=== PATIENT | male | born 1935 | race Caucasian/White ===

== ENCOUNTER 2017-06-26 09:45 | Observation (INO) | payer MEDICARE, OTHER ==
[~2017-06-26] VITALS: Ht 182.9 cm; Wt 88.9 kg
[~2017-06-26 09:45] MED LIST: ASPI-630 PO; CHOL2000 PO; MULT1TAB52 PO; OMEP20CA9 PO; SIMV20TA3 PO; [UNRECOGNIZED DRUG - OTHER]
[2017-06-26 10:21] LABS: BASO # 0.1 x10^3/uL (0.0-0.2); BASO % 1 % (0-3); CALCIUM 9.5 mg/dL (8.5-10.1); CREATININE 1.3 mg/dL (0.7-1.3); EOS % 4 % (0-3); HEMOGLOBIN 14.9 g/dL (13.0-17.5); LYMPH # 1.9 x10^3/uL (1.0-4.8); LYMPH % 23 % (24-48); MEAN CORPUSCULAR HEMOGLOBIN 31 pg (25-35); MEAN CORPUSCULAR HGB CONC 33 g/dL (31-37); MEAN CORPUSCULAR VOLUME 93 fL (79-100); MONO % 11 % (0-9); NEUT % 62 % (31-73); PLATELET COUNT 221 x10^3/uL (140-400); POTASSIUM 4.5 mmol/L (3.5-5.1); RED BLOOD COUNT 4.83 x10^6/uL (4.30-5.70); RED CELL DISTRIBUTION WIDTH 14.1 % (11.5-14.5); WHITE BLOOD COUNT 8.5 x10^3/uL (4.0-11.0)
[2017-06-26 10:30] LABS: ALBUMIN 3.9 g/dL (3.4-5.0); DIRECT BILIRUBIN 0.1 mg/dL (0.0-0.2); TOTAL BILIRUBIN 0.7 mg/dL (0.2-1.0)
--- NOTE | 2017-06-26 10:32 | PHYS DOC ---
Past Medical History Past Medical History: GERD, High Cholesterol, Hypertension Past Surgical History: Tonsillectomy, Other Additional Past Surgical Histo: HERNIA REPAIR,THROAT SX Alcohol Use: None Drug Use: None Adult General Chief Complaint Chief Complaint: NEURO SYMPTOMS/DEFICITS HPI HPI 81-year-old male presenting to the emergency department today with right-sided weakness this started around 5:00 yesterday. He reports feeling weak in his right hand and his right foot. This was sudden in onset. He denies any pain or headache. He denies visual disturbances slurred speech or facial asymmetry. 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 Review of systems is negative for fevers chills nausea vomiting diarrhea constipation. He denies neck stiffness vision changes. All other review of systems is negative unless otherwise noted in history of present illness. ED course: 81-year-old male presenting to the emergency department today with right-sided weakness this started about 24 hours ago. Patient does not qualify for TPA as he falls outside of the window. Patient falls outside of the window of mechanical thrombectomy. Triage vital signs afebrile with a normal heart rate. Mild hypertension present. CT head obtained along with EKG and blood work. EKG reviewed by myself shows sinus rhythm with a regular rate. [place] leftward. ST segments are congruent. Not suggestive of ACS. Given the patient's unilateral neurologic symptoms MRI of the brain ordered. Unfortunately because the patient is allergic to iodine we are unable to do a CT angiography so we will get an angiography of the head neck when the MRI is done. I discussed the case with Dr. small our neurologist. The patient was then admitted to our hospital for further evaluation workup and care. Review of Systems Review of Systems SEE ABOVE. Allergies Allergies Allergies Coded Allergies Type Severity Reaction Last Updated Verified iodine Allergy Intermediate Rash 08/12/15 Yes iron Allergy Intermediate Rash 09/05/15 Yes iron dextran complex Allergy Intermediate Rash 09/05/15 Yes Physical Exam Physical Exam SEE ABOVE Constitutional: Well developed, well nourished, no acute distress, non-toxic appearance. [] HENT: Normocephalic, atraumatic, bilateral external ears normal, oropharynx moist, no oral exudates, nose normal. [] Eyes: PERRLA, EOMI, conjunctiva normal, no discharge. [] Neck: Normal range of motion, no tenderness, supple, no stridor. [] Cardiovascular:Heart rate regular rhythm, no murmur [] Lungs & Thorax: Bilateral breath sounds clear to auscultation [] Abdomen: Bowel sounds normal, soft, no tenderness, no masses, no pulsatile masses. [] Skin: Warm, dry, no erythema, no rash. [] Back: No tenderness, no CVA tenderness. [] Extremities: No tenderness, no cyanosis, no clubbing, ROM intact, no edema. [] Neurologic: Mental status: Awake oriented and alert x3 Cranial nerves: Extraocular movements intact, eyebrows ivan bilaterally smile symmetric, uvula elevation, shoulder shrug intact, tongue protrusion normal DTRs: 2+ Sensation: equal and normal in all extremities Strength: 5/5 in upper and lower extremities bilaterally Psychologic: Affect normal, judgement normal, mood normal. [] Current Patient Data Vital Signs Vital Signs Date Time Temp Pulse Resp B/P (MAP) Pulse Ox O2 Delivery O2 Flow Rate FiO2 06/26/17 11:22 63 16 149/79 (102) 94 Room Air 06/26/17 09:54 97.8 97.8 Lab Values Laboratory Tests Test 06/26/17 09:55 White Blood Count 8.5 x10^3/uL (4.0-11.0) Red Blood Count 4.83 x10^6/uL (4.30-5.70) Hemoglobin 14.9 g/dL (13.0-17.5) Hematocrit 45.0 % (39.0-53.0) Mean Corpuscular Volume 93 fL (79-100) Mean Corpuscular Hemoglobin 31 pg (25-35) Mean Corpuscular Hemoglobin Concent 33 g/dL (31-37) Red Cell Distribution Width 14.1 % (11.5-14.5) Platelet Count 221 x10^3/uL (140-400) Neutrophils (%) (Auto) 62 % (31-73) Lymphocytes (%) (Auto) 23 % (24-48) L Monocytes (%) (Auto) 11 % (0-9) H Eosinophils (%) (Auto) 4 % (0-3) H Basophils (%) (Auto) 1 % (0-3) Neutrophils # (Auto) 5.2 x10^3uL (1.8-7.7) Lymphocytes # (Auto) 1.9 x10^3/uL (1.0-4.8) Monocytes # (Auto) 0.9 x10^3/uL (0.0-1.1) Eosinophils # (Auto) 0.4 x10^3/uL (0.0-0.7) Basophils # (Auto) 0.1 x10^3/uL (0.0-0.2) Sodium Level 143 mmol/L (136-145) Potassium Level 4.5 mmol/L (3.5-5.1) Chloride Level 107 mmol/L (98-107) Carbon Dioxide Level 25 mmol/L (21-32) Anion Gap 11 (6-14) Blood Urea Nitrogen 19 mg/dL (8-26) Creatinine 1.3 mg/dL (0.7-1.3) Estimated GFR (Cockcroft-Gault) 53.0 Glucose Level 124 mg/dL (70-99) H Calcium Level 9.5 mg/dL (8.5-10.1) Total Bilirubin 0.7 mg/dL (0.2-1.0) Direct Bilirubin 0.1 mg/dL (0.0-0.2) Aspartate Amino Transferase (AST) 27 U/L (15-37) Alanine Aminotransferase (ALT) 29 U/L (16-63) Alkaline Phosphatase 58 U/L (46-116) Troponin I Quantitative < 0.017 ng/mL (0.000-0.055) Total Protein 7.0 g/dL (6.4-8.2) Albumin 3.9 g/dL (3.4-5.0) Triglycerides Level 114 mg/dL (0-150) Cholesterol Level 151 mg/dL (0-200) LDL Cholesterol, Calculated 92 mg/dL (0-100) VLDL Cholesterol, Calculated 23 mg/dL (0-40) Non-HDL Cholesterol Calculated 115 mg/dL (0-129) HDL Cholesterol 36 mg/dL (40-60) L Cholesterol/HDL Ratio 4.2 Lipase 690 U/L (73-393) H Laboratory Tests 06/26/17 09:55 Laboratory Tests 06/26/17 09:55 EKG EKG [] Radiology/Procedures Radiology/Procedures [] Course & Med Decision Making Course & Med Decision Making Pertinent Labs and Imaging studies reviewed. (See chart for details) [] Dragon Disclaimer Dragon Disclaimer This electronic medical record was generated, in whole or in part, using a voice recognition dictation system. Departure Departure Impression: Primary Impression: Focal neurological deficit Additional Impressions: TIA (transient ischemic attack) Stroke-like symptoms Disposition: ADMITTED INPATIENT Admitting Physician: Other (reusch) Condition: STABLE Referrals: LARY GIL Jr, MD (PCP) Problem Qualifiers LEXI HUMPHREY MD Jun 26, 2017 10:32
--- NOTE | 2017-06-26 11:05 | RAD ---
CT head without contrast History: Unilateral weakness. Comparison: None. Procedure: Axial images are obtained of the head from the skull base through the vertex without IV contrast. Findings: Mild bilateral periventricular white matter hypodensities likely chronic small vessel ischemic disease. The ventricles and sulci are normal for the patient's age. No mass-effect, intracranial mass, midline shift, hemorrhage or obvious acute infarction is identified. Basilar cisterns are patent. Bone windows demonstrate no significant calvarial abnormality. The visualized paranasal sinuses appear clear. Impression: 1. No acute intracranial process. PQRS Compliance Statement: One or more of the following individualized dose reduction techniques were utilized for this examination: 1. Automated exposure control 2. Adjustment of the mA and/or kV according to patient size 3. Use of iterative reconstruction technique
[2017-06-26] MEDS: IV NORMAL SALINE 1000ML BAG 1,000 ML IV SCH (11:44)
[2017-06-26] MEDS ORDERED: MORPHINE SULFATE 2 MG/ML DISP.SYRIN. IV PRN (11:45)
[2017-06-26] MEDS ORDERED: ASPIRIN CHEWABLE 81 MG TABLET. PO ONE (11:45)
[2017-06-26] MEDS ORDERED: ONDANSETRON PF 4 MG/2 ML VIAL. IV PRN ×2 (11:45→12:15)
[2017-06-26] MEDS ORDERED: ACETAMINOPHEN 500 MG TABLET PO PRN (12:15)
[2017-06-26] MEDS ORDERED: cloNIDine HCL 0.1 MG TABLET PO PRN (12:30)
[2017-06-26] MEDS ORDERED: CHOLECALCIFEROL (VITAMIN D3) 1,000 UNIT TABLET PO SCH ×2 (13:00→21:00)
[2017-06-26] MEDS ORDERED: PANTOPRAZOLE 40 MG TABLET.DR. PO SCH ×2 (13:00→21:00)
[2017-06-26] MEDS: MULTIVITAMIN with MINERAL TABLET. PO SCH (13:00)
[2017-06-26] MEDS ORDERED: ASPIRIN CHEWABLE 81 MG TABLET. PO SCH (13:00)
[2017-06-26 13:02] VITALS: BP 156/77
[2017-06-26 13:03] VITALS: BP 156/77
--- NOTE | 2017-06-26 13:07 | RAD ---
Examination: MRI brain without contrast History: History of right-sided weakness for one day Comparison: None available Technique: Multiplanar, multisequence MR imaging of the brain was performed without contrast Findings: There is an 8 mm focus of restricted diffusion identified in the left posterior lim radiata region of the parietal lobe likely acute ischemic infarct. There is no evidence of midline shift. There is no acute intracranial bleed. The midline structures grossly appears unremarkable. Moderate bilateral increased T2 and FLAIR signal identified in the periventricular white matter likely chronic small vessel ischemic disease with tiny foci of old infarcts in the deep white matter in the bilateral frontal lobes and parietal lobes. There are scattered foci of susceptibility artifact on the gradient sequences identified in the bilateral cerebral hemispheres in the bilateral frontal and right occipital and temporal lobe region, question amyloid angiopathy. The ventricle size grossly appears unremarkable. The flow voids appears unremarkable. The visualized paranasal sinuses, mastoid air cells are clear. Impression: 1. Small 8 mm focus of restricted diffusion identified in the left lim radiata region of the parietal lobe likely acute ischemic infarct. 2. There are scattered foci of susceptibility artifact on the gradient sequences identified in the bilateral cerebral hemispheres in the bilateral frontal and right occipital and temporal lobe region, question amyloid angiopathy. Report called to patient's nurse at time of dictation.
--- NOTE | 2017-06-26 13:14 | RAD ---
Examination: MR angiogram head and neck History: History of right-sided weakness for one day graft comparison: None available Technique: Multiplanar, multisequence MR angiography of the head and neck was performed Findings: The origin of the great vessels from the aorta is limited due to significant motion artifact. The bilateral internal carotid arteries demonstrate no significant stenosis. The evaluation of the right and left vertebral arteries in the neck is very limited as there is significant motion which limits evaluation. In the partially visualized right vertebral artery with at least 50% stenosis identified in the proximal right vertebral artery in the neck best seen on series 4 image 52. The intracranial portions of the bilateral vertebral arteries, basilar artery, middle cerebral arteries, anterior cerebral arteries and posterior cerebral arteries are patent. Impression: 1. No evidence of significant stenosis identified in the intracranial cerebral or intracerebral vertebral arteries. 2. Evaluation of the neck vessels is limited due to significant motion. Probable focal 50% stenosis in the proximal right vertebral artery in the neck best visualized on series 4 image 52. Follow-up carotid ultrasound can be considered.
--- NOTE | 2017-06-26 13:18 | EKG ---
[facility] [address] [place] [address] Test Date: 2017-06-26 Test Time: 09:51:28 Pat Name: RUDY NIELSEN Department: Room: [facility] Gender: M Barrel Lapper: : 1935 Requested By: LEXI HUMPHREY Order Number: [id number] Reading MD: Farheen Carrion Measurements Intervals [place] Rate: 91 P: -3 CA: 138 QRS: -24 QRSD: 94 T: 15 QT: 356 QTc: 440 Interpretive Statements SINUS RHYTHM LEFTWARD AXIS OTHERWISE NORMAL ECG Electronically Signed On 06-30-2017 21:42:29 CDT by Farheen Carrion
--- NOTE | 2017-06-26 13:27 | PDOC1 ---
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 PErsisted hence went to ER, CT head neg, Admitted for MRI, Mri done, wet read acute 8 mm stroke left parietal, Slow to speech, a bit, baseline? no swallow issues, Multiple fam members at bedside, Got ASA 325 at ER Past Medical History Cardiovascular: No pertinent hx Pulmonary: No pertinent hx GI: GERD Heme/Onc: No pertinent hx Hepatobiliary: No pertinent hx Psych: No pertinent hx Infectious disease: No pertinent hx ENT: No pertinent hx Renal/: No pertinent hx Endocrine: No pertinent hx Dermatology: No pertinent hx Past Surgical History Past Surgical History: No pertinent history Family History Family History: Hypertension Social History Smoke: No ALCOHOL: none Drugs: None Current Problem List Problem List Problems Medical Problems: (1) Focal neurological deficit Status: Acute (2) Stroke-like symptoms Status: Acute (3) TIA (transient ischemic attack) Status: Acute Problems: Current Medications Current Medications Current Medications Aspirin (Children'S Aspirin) 243 mg 1X ONCE PO Last administered on 06/26/17t 12:50; Start 06/26/17 at 11:45; Stop 06/26/17 at 11:46; Status DC Ondansetron HCl (Zofran) 4 mg PRN Q8HRS PRN IV NAUSEA/VOMITING; Start 06/26/17 at 11:45; Stop 06/26/17 at 12:17; Status DC Morphine Sulfate 2 mg PRN Q2HR PRN IV PAIN; Start 06/26/17 at 11:45; Stop at 11:44 Sodium Chloride 1,000 ml @ 100 mls/hr Q10H IV ; Start 06/26/17 at 11:44; Stop at 11:43 Ondansetron HCl (Zofran) 4 mg PRN Q6HRS PRN IV NAUSEA/VOMITING; Start 06/26/17 at 12:15 Acetaminophen (Tylenol) 500 mg PRN QID PRN PO pain; Start 06/26/17 at 12:15 Clonidine HCl (Catapres) 0.1 mg PRN Q1HR PRN PO HYPERTENSION, SEE COMMENTS; Start 06/26/17 at 12:30 Aspirin (Children'S Aspirin) 81 mg DAILY PO ; Start 06/26/17 at 13:00; Status Cancel Simvastatin (Zocor) 20 mg QHS PO ; Start 06/26/17 at 21:00 Vitamin D (Vitamin D3) 2,000 unit DAILY PO ; Start 06/26/17 at 13:00 Multivitamins (Thera M Plus) 1 tab DAILY PO ; Start 06/26/17 at 13:00 Pantoprazole Sodium (Protonix) 40 mg DAILYAC PO ; Start 06/26/17 at 13:00 Aspirin (Ecotrin) 325 mg DAILYWBKFT PO ; Start 06/27/17 at 08:00 Active Scripts Active Reported Multivitamins (Multivitamin) 1 Each Tablet 1 Tab PO DAILY Vitamin D (Cholecalciferol (Vitamin D3)) 2,000 Unit Capsule 1 Cap PO DAILY [Vitamon B12] DAILY Aspirin 81 Mg Tab.chew 1 Tab PO DAILY Omeprazole 20 Mg Capsule.dr 1 Cap PO DAILY Simvastatin 20 Mg Tablet 1 Tab PO QHS Allergies Allergies: Coded Allergies: iodine (Verified Allergy, Intermediate, Rash, 08/12/15) iron (Verified Allergy, Intermediate, Rash, 09/05/15) INJECTABLE iron dextran complex (Verified Allergy, Intermediate, Rash, 09/05/15) ROS Review of System as per HPI< all else is neg Physical Exam General: Alert, Oriented X3, Cooperative, No acute distress HEENT: Atraumatic, PERRLA, EOMI Lungs: Clear to auscultation Heart: S1S2, no thrills, no gallops, no murmurs Cardiovascular: S2 Abdomen: Normal bowel sounds, Soft, No tenderness, No hepatosplenomegaly, No masses Male Genitals Exam: normal genitalia, normal prostate PELVIC: Nml ext genitalia Extremities: No clubbing, No cyanosis, No edema, Normal pulses, No tenderness/ swelling Skin: No rashes, No breakdown, No significant lesion Neuro: Other (4/5 on RLE, rest is 5.5, sensory intact, DTR 2 plus, on slurred , no facial asymmetry) Psych/Mental Status: Mental status NL, Mood NL Vitals Vitals Vital Signs Date Time Temp Pulse Resp B/P (MAP) Pulse Ox O2 Delivery O2 Flow Rate FiO2 06/26/17 13:03 97.4 65 19 156/77 (103) 95 Room Air 97.4 Labs Labs Laboratory Tests Test 06/26/17 09:55 White Blood Count 8.5 x10^3/uL (4.0-11.0) Red Blood Count 4.83 x10^6/uL (4.30-5.70) Hemoglobin 14.9 g/dL (13.0-17.5) Hematocrit 45.0 % (39.0-53.0) Mean Corpuscular Volume 93 fL (79-100) Mean Corpuscular Hemoglobin 31 pg (25-35) Mean Corpuscular Hemoglobin Concent 33 g/dL (31-37) Red Cell Distribution Width 14.1 % (11.5-14.5) Platelet Count 221 x10^3/uL (140-400) Neutrophils (%) (Auto) 62 % (31-73) Lymphocytes (%) (Auto) 23 % (24-48) Monocytes (%) (Auto) 11 % (0-9) Eosinophils (%) (Auto) 4 % (0-3) Basophils (%) (Auto) 1 % (0-3) Neutrophils # (Auto) 5.2 x10^3uL (1.8-7.7) Lymphocytes # (Auto) 1.9 x10^3/uL (1.0-4.8) Monocytes # (Auto) 0.9 x10^3/uL (0.0-1.1) Eosinophils # (Auto) 0.4 x10^3/uL (0.0-0.7) Basophils # (Auto) 0.1 x10^3/uL (0.0-0.2) Sodium Level 143 mmol/L (136-145) Potassium Level 4.5 mmol/L (3.5-5.1) Chloride Level 107 mmol/L (98-107) Carbon Dioxide Level 25 mmol/L (21-32) Anion Gap 11 (6-14) Blood Urea Nitrogen 19 mg/dL (8-26) Creatinine 1.3 mg/dL (0.7-1.3) Estimated GFR (Cockcroft-Gault) 53.0 Glucose Level 124 mg/dL (70-99) Calcium Level 9.5 mg/dL (8.5-10.1) Total Bilirubin 0.7 mg/dL (0.2-1.0) Direct Bilirubin 0.1 mg/dL (0.0-0.2) Aspartate Amino Transf (AST/SGOT) 27 U/L (15-37) Alanine Aminotransferase (ALT/SGPT) 29 U/L (16-63) Alkaline Phosphatase 58 U/L (46-116) Troponin I Quantitative < 0.017 ng/mL (0.000-0.055) Total Protein 7.0 g/dL (6.4-8.2) Albumin 3.9 g/dL (3.4-5.0) Lipase 690 U/L (73-393) Laboratory Tests Test 06/26/17 09:55 White Blood Count 8.5 x10^3/uL (4.0-11.0) Red Blood Count 4.83 x10^6/uL (4.30-5.70) Hemoglobin 14.9 g/dL (13.0-17.5) Hematocrit 45.0 % (39.0-53.0) Mean Corpuscular Volume 93 fL (79-100) Mean Corpuscular Hemoglobin 31 pg (25-35) Mean Corpuscular Hemoglobin Concent 33 g/dL (31-37) Red Cell Distribution Width 14.1 % (11.5-14.5) Platelet Count 221 x10^3/uL (140-400) Neutrophils (%) (Auto) 62 % (31-73) Lymphocytes (%) (Auto) 23 % (24-48) Monocytes (%) (Auto) 11 % (0-9) Eosinophils (%) (Auto) 4 % (0-3) Basophils (%) (Auto) 1 % (0-3) Neutrophils # (Auto) 5.2 x10^3uL (1.8-7.7) Lymphocytes # (Auto) 1.9 x10^3/uL (1.0-4.8) Monocytes # (Auto) 0.9 x10^3/uL (0.0-1.1) Eosinophils # (Auto) 0.4 x10^3/uL (0.0-0.7) Basophils # (Auto) 0.1 x10^3/uL (0.0-0.2) Sodium Level 143 mmol/L (136-145) Potassium Level 4.5 mmol/L (3.5-5.1) Chloride Level 107 mmol/L (98-107) Carbon Dioxide Level 25 mmol/L (21-32) Anion Gap 11 (6-14) Blood Urea Nitrogen 19 mg/dL (8-26) Creatinine 1.3 mg/dL (0.7-1.3) Estimated GFR (Cockcroft-Gault) 53.0 Glucose Level 124 mg/dL (70-99) Calcium Level 9.5 mg/dL (8.5-10.1) Total Bilirubin 0.7 mg/dL (0.2-1.0) Direct Bilirubin 0.1 mg/dL (0.0-0.2) Aspartate Amino Transf (AST/SGOT) 27 U/L (15-37) Alanine Aminotransferase (ALT/SGPT) 29 U/L (16-63) Alkaline Phosphatase 58 U/L (46-116) Troponin I Quantitative < 0.017 ng/mL (0.000-0.055) Total Protein 7.0 g/dL (6.4-8.2) Albumin 3.9 g/dL (3.4-5.0) Lipase 690 U/L (73-393) VTE Prophylaxis Ordered VTE Prophylaxis Devices: Yes VTE Pharmacological Prophylaxi: Yes Assessment/Plan Assessment/Plan 1. 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 GERD PLAN: ASA 325 daily vs plavix 75 - will defer to neuro LIpid profile, echo and carotids per stroke protocol PT/OT all qs asked, multiple fam members in room Work excuse given to grand dtr for visiting today CONNER FINE MD Jun 26, 2017 13:27
[2017-06-26 13:59] LABS: CHOLESTEROL/HDL RATIO 4.2
[2017-06-26 14:51] VITALS: BP 122/77
--- NOTE | 2017-06-26 16:16 | PDOC2 ---
NEUROLOGY CONSULT Date of Admission Date of Admission DATE: 06/26/17 TIME: 15:53 Reason for Consult Reason for Consult: IMPRESSION: Acute 8 mm left lim radiata infract. Not TPA candidate onset of symptoms x 1 day before coming to [facility]. Right side weakness and numbness x 1 day before coming here. 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 Hx of throat surgery with hoarse voice. HTN HLD Amyloid angiopathy? GERD. Elevated lipase. Dementia features. RECOMMENDATIONS/PLAN: Increase ASA from 81 mg to 325 mg daily. Zocor 20 mg HS per floor team. Carotid A US + Doppler. Echo OT/POT. Discussed with his , sister, son and other family members at bedside. HISTORY OF THE PRESENT ILLNESS: 81-y-old male patient with above medical diseases developed symptoms of right side UE and LE numbness and weakness with the right UE more obvious since 06/25/17. He did not search medicla attension until the next day due to persistent symptoms especially in his right UE. He stated his face was not affected. No obvious slurred speech since his speech has been hoarse after throat surgery. Past Medical History Cardiovascular: No pertinent hx Pulmonary: No pertinent hx GI: GERD Heme/Onc: No pertinent hx Hepatobiliary: No pertinent hx Psych: No pertinent hx Infectious disease: No pertinent hx ENT: No pertinent hx Renal/: No pertinent hx Endocrine: No pertinent hx Dermatology: No pertinent hx Past Surgical History Throat surgery, detail unknown. Not cancer. Hernia repair. Family History Hypertension Social History Smoke: No ALCOHOL: none Drugs: None ALLERGY: Reviewed. MEDICATIONS: Refer to [facility] REVIEW OF SYSTEMS: Constitutional: No malnutrition, cachexia. Head: No recent traumatic brain or head injury. Skin: No edema, or rash. Ear: No infection. Eyes: No vision loss or color blindness. Nose: No bleeding or purulent discharges. Hearing: Hearing decrease. Neck: No injury. Cardiac: HLD, HTN. Pulmonary: No COPD. GI: GERD. Urinary/genital: UTI. Endocrinologic: Diabetes Mellitus? Skeletomuscular: No muscular atrophy, deformity. Neurological: see HP. Psychiatric: Denies drug use/abuse. Otherwise, not [id number] review of systems. PHYSICAL EXAMINATION: General appearance is in subacute distress. HEENT: Normocephalic and nontraumatic. Eyes, nose, ears, and throat are unremarkable. Neck is supple. No lymphadenopathy. No crepitus. Cardiovascular: S1, S2, regular rate and rhythm. Pulmonary: Clear to auscultation bilaterally. Abdomen: Bowel sounds are positive. Extremities: No rash, lesions, or edema. No restriction of range of motion NEUROLOGICAL EXAMINATION: Awake. Oriented to time, place and person. PERRL. EOMI. CN: no focal findings. Muscle tone: within normal. Muscle strength: 4 right UE,. 5- the rest. DTR: 2 Plantar reflex: Neutral response bilaterally Gait: not examined in bed. Sensory exam: no abnormal findings. No cerebellar signs elicited. F-T-N test fine. Current Medications Current Medications Current Medications Aspirin (Children'S Aspirin) 243 mg 1X ONCE PO Last administered on 06/26/17t 12:50; Start 06/26/17 at 11:45; Stop 06/26/17 at 11:46; Status DC Ondansetron HCl (Zofran) 4 mg PRN Q8HRS PRN IV NAUSEA/VOMITING; Start 06/26/17 at 11:45; Stop 06/26/17 at 12:17; Status DC Morphine Sulfate 2 mg PRN Q2HR PRN IV PAIN; Start 06/26/17 at 11:45; Stop at 11:44 Sodium Chloride 1,000 ml @ 100 mls/hr Q10H IV ; Start 06/26/17 at 11:44; Stop at 11:43 Ondansetron HCl (Zofran) 4 mg PRN Q6HRS PRN IV NAUSEA/VOMITING; Start 06/26/17 at 12:15 Acetaminophen (Tylenol) 500 mg PRN QID PRN PO pain; Start 06/26/17 at 12:15 Clonidine HCl (Catapres) 0.1 mg PRN Q1HR PRN PO HYPERTENSION, SEE COMMENTS; Start 06/26/17 at 12:30 Aspirin (Children'S Aspirin) 81 mg DAILY PO ; Start 06/26/17 at 13:00; Status Cancel Simvastatin (Zocor) 20 mg QHS PO ; Start 06/26/17 at 21:00 Vitamin D (Vitamin D3) 2,000 unit DAILY PO ; Start 06/26/17 at 13:00 Multivitamins (Thera M Plus) 1 tab DAILY PO ; Start 06/26/17 at 13:00 Pantoprazole Sodium (Protonix) 40 mg DAILYAC PO ; Start 06/26/17 at 13:00 Aspirin (Ecotrin) 325 mg DAILYWBKFT PO ; Start 06/27/17 at 08:00 Active Scripts Active Reported Multivitamins (Multivitamin) 1 Each Tablet 1 Tab PO DAILY Vitamin D (Cholecalciferol (Vitamin D3)) 2,000 Unit Capsule 1 Cap PO DAILY [Vitamon B12] DAILY Aspirin 81 Mg Tab.chew 1 Tab PO DAILY Omeprazole 20 Mg Capsule.dr 1 Cap PO DAILY Simvastatin 20 Mg Tablet 1 Tab PO QHS Allergies Allergies: Coded Allergies: iodine (Verified Allergy, Intermediate, Rash, 08/12/15) iron (Verified Allergy, Intermediate, Rash, 09/05/15) INJECTABLE iron dextran complex (Verified Allergy, Intermediate, Rash, 09/05/15) Vitals VITALS Vital Signs Date Time Temp Pulse Resp B/P (MAP) Pulse Ox O2 Delivery O2 Flow Rate FiO2 06/26/17 14:51 97.8 89 18 122/77 (92) 97 Room Air 97.8 Labs Labs Laboratory Tests Test 06/26/17 09:55 White Blood Count 8.5 x10^3/uL (4.0-11.0) Red Blood Count 4.83 x10^6/uL (4.30-5.70) Hemoglobin 14.9 g/dL (13.0-17.5) Hematocrit 45.0 % (39.0-53.0) Mean Corpuscular Volume 93 fL (79-100) Mean Corpuscular Hemoglobin 31 pg (25-35) Mean Corpuscular Hemoglobin Concent 33 g/dL (31-37) Red Cell Distribution Width 14.1 % (11.5-14.5) Platelet Count 221 x10^3/uL (140-400) Neutrophils (%) (Auto) 62 % (31-73) Lymphocytes (%) (Auto) 23 % (24-48) Monocytes (%) (Auto) 11 % (0-9) Eosinophils (%) (Auto) 4 % (0-3) Basophils (%) (Auto) 1 % (0-3) Neutrophils # (Auto) 5.2 x10^3uL (1.8-7.7) Lymphocytes # (Auto) 1.9 x10^3/uL (1.0-4.8) Monocytes # (Auto) 0.9 x10^3/uL (0.0-1.1) Eosinophils # (Auto) 0.4 x10^3/uL (0.0-0.7) Basophils # (Auto) 0.1 x10^3/uL (0.0-0.2) Sodium Level 143 mmol/L (136-145) Potassium Level 4.5 mmol/L (3.5-5.1) Chloride Level 107 mmol/L (98-107) Carbon Dioxide Level 25 mmol/L (21-32) Anion Gap 11 (6-14) Blood Urea Nitrogen 19 mg/dL (8-26) Creatinine 1.3 mg/dL (0.7-1.3) Estimated GFR (Cockcroft-Gault) 53.0 Glucose Level 124 mg/dL (70-99) Calcium Level 9.5 mg/dL (8.5-10.1) Total Bilirubin 0.7 mg/dL (0.2-1.0) Direct Bilirubin 0.1 mg/dL (0.0-0.2) Aspartate Amino Transf (AST/SGOT) 27 U/L (15-37) Alanine Aminotransferase (ALT/SGPT) 29 U/L (16-63) Alkaline Phosphatase 58 U/L (46-116) Troponin I Quantitative < 0.017 ng/mL (0.000-0.055) Total Protein 7.0 g/dL (6.4-8.2) Albumin 3.9 g/dL (3.4-5.0) Triglycerides Level 114 mg/dL (0-150) Cholesterol Level 151 mg/dL (0-200) LDL Cholesterol, Calculated 92 mg/dL (0-100) VLDL Cholesterol, Calculated 23 mg/dL (0-40) Non-HDL Cholesterol Calculated 115 mg/dL (0-129) HDL Cholesterol 36 mg/dL (40-60) Cholesterol/HDL Ratio 4.2 Lipase 690 U/L (73-393) Laboratory Tests Test 06/26/17 09:55 White Blood Count 8.5 x10^3/uL (4.0-11.0) Red Blood Count 4.83 x10^6/uL (4.30-5.70) Hemoglobin 14.9 g/dL (13.0-17.5) Hematocrit 45.0 % (39.0-53.0) Mean Corpuscular Volume 93 fL (79-100) Mean Corpuscular Hemoglobin 31 pg (25-35) Mean Corpuscular Hemoglobin Concent 33 g/dL (31-37) Red Cell Distribution Width 14.1 % (11.5-14.5) Platelet Count 221 x10^3/uL (140-400) Neutrophils (%) (Auto) 62 % (31-73) Lymphocytes (%) (Auto) 23 % (24-48) Monocytes (%) (Auto) 11 % (0-9) Eosinophils (%) (Auto) 4 % (0-3) Basophils (%) (Auto) 1 % (0-3) Neutrophils # (Auto) 5.2 x10^3uL (1.8-7.7) Lymphocytes # (Auto) 1.9 x10^3/uL (1.0-4.8) Monocytes # (Auto) 0.9 x10^3/uL (0.0-1.1) Eosinophils # (Auto) 0.4 x10^3/uL (0.0-0.7) Basophils # (Auto) 0.1 x10^3/uL (0.0-0.2) Sodium Level 143 mmol/L (136-145) Potassium Level 4.5 mmol/L (3.5-5.1) Chloride Level 107 mmol/L (98-107) Carbon Dioxide Level 25 mmol/L (21-32) Anion Gap 11 (6-14) Blood Urea Nitrogen 19 mg/dL (8-26) Creatinine 1.3 mg/dL (0.7-1.3) Estimated GFR (Cockcroft-Gault) 53.0 Glucose Level 124 mg/dL (70-99) Calcium Level 9.5 mg/dL (8.5-10.1) Total Bilirubin 0.7 mg/dL (0.2-1.0) Direct Bilirubin 0.1 mg/dL (0.0-0.2) Aspartate Amino Transf (AST/SGOT) 27 U/L (15-37) Alanine Aminotransferase (ALT/SGPT) 29 U/L (16-63) Alkaline Phosphatase 58 U/L (46-116) Troponin I Quantitative < 0.017 ng/mL (0.000-0.055) Total Protein 7.0 g/dL (6.4-8.2) Albumin 3.9 g/dL (3.4-5.0) Triglycerides Level 114 mg/dL (0-150) Cholesterol Level 151 mg/dL (0-200) LDL Cholesterol, Calculated 92 mg/dL (0-100) VLDL Cholesterol, Calculated 23 mg/dL (0-40) Non-HDL Cholesterol Calculated 115 mg/dL (0-129) HDL Cholesterol 36 mg/dL (40-60) Cholesterol/HDL Ratio 4.2 Lipase 690 U/L (73-393) MELODY WILLIS MD Jun 26, 2017 16:16
[2017-06-26 19:00] VITALS: BP 165/75
[2017-06-26] MEDS ORDERED: SIMVASTATIN 20 MG TABLET PO SCH (21:00)
[2017-06-26 23:01] VITALS: BP 185/69
--- NOTE | 2017-06-26 23:30 | ACF ---
Admission Forms Criteria TRANSIENT ISCHEMIC ATTACK (TIA) Clinical Indications for Admission to Inpatient Care (Place 'X' for any and all applicable criteria): Admission is indicated for ANY ONE of the following(1)(2)(3)(4)(5): [ ]I. Immediate inpatient procedure is needed (eg, endarterectomy). [X]II. Inpatient admission required rather than observation care (Also use Transient Ischemic Attack (TIA): Observation Care Criteria as appropriate) because of ANY ONE of the following: [X]a) Focal neurologic signs or symptoms persist or recurring [ ]b) Cardiac arrhythmias of immediate concern [ ]c) Clinically significant cardiac disorder identified that requires inpatient care (eg, severe valvular disease, atrial myxoma, cardiomyopathy) [ ]d) Hypertension requiring inpatient treatment [ ]e) Parenteral anticoagulation required (eg, alternative forms of anticoagulation not appropriate or not feasible) as indicated by ALL of the following(13): [ ]i) Temporary subtherapeutic anticoagulation unacceptable because of high risk of short-term venous or arterial thromboembolism due to ANY ONE of the following(14)(15)(16): [ ]1) Atrial fibrillation suspected as etiology of TIA(17)(18)(19)(20)(21) [ ]2) Venous thromboembolism within past 12 months [ ]3) Underlying malignancy [ ]4) Patient with mechanical cardiac valve(22)( 23) [ ]5) Underlying hypercoagulable state (eg, protein C or protein S deficiency antithrombin deficiency, antiphospholipid antibodies) [ ]6) Patient at temporary high risk of thromboembolism (eg, status post orthopedic surgery) [ ]ii) Contraindications to outpatient use of "bridging" agent or alternative oral anticoagulant[B] as indicated by ALL of the following: [ ]1) Contraindication to outpatient use of low- molecular-weight heparin as "bridging" agent as indicated by ANY ONE of the following(15): [ ]A. Documented current or history of heparin-induced thrombocytopenia(24) [ ]B. Severe thrombocytopenia (eg, platelet count less than 50,000/mm3 (04x954/L) [ ]C. Documented allergy to heparin, low- molecular-weight heparin, or pork products [ ]D. Renal failure (creatinine clearance less than 30 mL/min/1.73m2 (0.50mL/sec/1.73m2) or on dialysis) [ ]E. Inability to manage self-injection ( eg, by patient, caregiver, or visiting nurse) [ ]2) Contraindication to outpatient use of fondaparinux as "bridging" agent as indicated by ANY ONE of the following(25)(26 )(27)(28): [ ]A. Severe thrombocytopenia (eg, platelet count less than 50,000/mm3 (50 x109/L)) [ ]B.Hypersensitivity to fondaparinux, related drugs, or product components [ ]C.Renal failure (creatinine clearance less than 30 mL/min/1.73m2 (0.50mL/sec/1.73m2) or on dialysis) [ ]D.Inability to manage self-injection ( eg, by patient, caregiver, or visiting nurse [ ]3. Oral direct thrombin inhibitor (eg, dabigatran) or oral coagulation factor Xa inhibitor (eg, rivaroxaban, apixaban) not appropriate as oral anticoagulation (eg, indication not appropriate) or contraindicated (eg, hypersensitivity, creatinine clearance less than 15 mL/min/1.73m2 ( 0.25 mL/sec/1.73m2) or on dialysis). [ ]f) Continuous IV infusion of anticoagulant, platelet inhibitor, vasoactive or antiarrhythmia(18)(19) [ ]g) Other condition, treatment, or monitoring requiring inpatient admission [ ]III. Contraindications and/or Inappropriate clinical situations for Observational Care in patients with Transient Ischemic Attack (TIA), when ANY ONE of the following is required: [ ]a) Patient with persistent or severe neurological deficit 24 [ ]b) Patient with acute CVA or other identified pathology should be admitted to inpatient for further care 25 [ ]IV. General contraindications and/or Inappropriate clinical situations for Observational Care in patients with Transient Ischemic Attack (TIA), when ANY ONE of the following is required: [ ]a) Prediction of prolongation of LOS based on ANY ONE of the following may be considered as a contraindication for observational care 2, 3, 4, 5, 6, 7, 8, 9, 10, 11 [ ]i) Age > 65 yrs. [ ]ii) Patient arriving by ambulance [ ]iii) Patient with high acuity [ ]iv) Patient requiring vital sign monitoring [ ]v) Patient on IV medication [ ]b) Systolic blood pressures 180mmHg 3,12 [ ]c) Patient with altered mental status including delirium and other alteration of consciousness, (3) [ ]d) Patient whose discharge disposition will be to a half-way home or rehabilitation home should not be managed in Emergency Department Observation Unit. CMS rule requires 3 days hospital stay before such placement.3,13 [ ]e) Patient with failure to thrive due to broad array of etiologies 3,16,17 [ ]f) Inability to ambulate 3,14 Extended stay beyond goal length of stay may be needed for(4)(30)(32): [ ]a) Parenteral anticoagulation required [ ]b) Dangerous arrhythmia [ ]c) Cardiac valvular disorder, atrial myxoma, cardiomyopathy [ ]d) Uncontrolled severe hypertension [ ]e) Severe carotid stenosis [ ]f) Active comorbidities (eg, heart failure) [ ]g) Extracranial vertebrobasilar disease(29) [ ]h) Clinical evolution of TIA into cerebrovascular accident (stroke) The original [facility] content created by [employer] has been revised. The portions of thecontent which have been revised are identified through the use of italic text or in bold, and [facility] has neither reviewed nor approved the modified material. All other unmodified content is copyright [facility]. Please see references footnoted in the original [employer] [facility] edition 2015 Admission Criteria Met?: Yes SINA RAMOS Jun 26, 2017 23:30
[2017-06-27] MEDS: IV NORMAL SALINE 1000ML BAG 1,000 ML IV SCH ×2 (02:51→07:50)
[2017-06-27 03:13] VITALS: BP 151/75
[2017-06-27 06:17] LABS: BASO # 0.1 x10^3/uL (0.0-0.2); BASO % 1 % (0-3); EOS % 5 % (0-3); HEMATOCRIT 42.6 % (39.0-53.0); HEMOGLOBIN 14.4 g/dL (13.0-17.5); LYMPH # 1.8 x10^3/uL (1.0-4.8); LYMPH % 22 % (24-48); MEAN CORPUSCULAR HEMOGLOBIN 31 pg (25-35); MEAN CORPUSCULAR HGB CONC 34 g/dL (31-37); MEAN CORPUSCULAR VOLUME 92 fL (79-100); MONO % 11 % (0-9); NEUT % 61 % (31-73); PLATELET COUNT 212 x10^3/uL (140-400); RED BLOOD COUNT 4.65 x10^6/uL (4.30-5.70); RED CELL DISTRIBUTION WIDTH 14.2 % (11.5-14.5)
[2017-06-27 06:48] LABS: CALCIUM 9.1 mg/dL (8.5-10.1); CREATININE 1.3 mg/dL (0.7-1.3); POTASSIUM 4.4 mmol/L (3.5-5.1)
[2017-06-27 07:14] VITALS: BP 151/73
[2017-06-27] MEDS: MULTIVITAMIN with MINERAL TABLET. PO SCH (07:49)
[2017-06-27] MEDS ORDERED: ASPIRIN ENTERIC COATED 325 MG TABLET.DR. PO SCH (08:00)
--- NOTE | 2017-06-27 08:13 | RAD ---
Carotid ultrasound, 06/26/2017: History: Right-sided weakness Duplex evaluation of the carotid arteries in neck was performed including grayscale, color flow and spectral Doppler analysis. There is mild intimal thickening bilaterally with mild partially calcified atherosclerotic plaquing at the left carotid bifurcation. The Doppler data obtained from the bifurcations reveals no significant focal velocity acceleration to suggest a hemodynamically significant carotid stenosis. The peak systolic velocity in the right internal carotid artery is 81 cm per sec with an end-diastolic velocity of 21 cm/s. The peak systolic velocity in the left internal carotid artery is 66 cm per sec with an end-diastolic velocity of 24 cm/s. Antegrade flow is present in both vertebral arteries in the neck. IMPRESSION: Mild atherosclerotic plaquing at the left carotid bifurcation with underlying luminal narrowing in the 0-50% diameter range. Note: Stenosis calculations for CTA, MRA and conventional angiography are based upon determination of the distal ICA diameter in accordance with the NASCET methodology. Stenosis calculations for Doppler studies are derived from validated velocity criteria which are known to correlate with NASCET methodology of determining stenosis.
[2017-06-27 09:04] VITALS: BP 140/92
[2017-06-27] MEDS ORDERED: CLOPIDOGREL BISULFATE 75 MG TABLET PO ONE (09:15)
[2017-06-27 10:52] VITALS: BP 146/63
--- NOTE | 2017-06-27 12:20 | CARD ---
APPROVED REPORT EXAM: Two-dimensional and M-mode echocardiogram with Doppler and color Doppler. Other Information Quality : Good INDICATION CVA/TIA 2D DIMENSIONS RVDd2.6 (2.9-3.5cm)Left Atrium(2D)3.7 (1.6-4.0cm) IVSd1.3 (0.7-1.1cm)Aortic Root(2D)3.6 (2.0-3.7cm) LVDd4.6 (3.9-5.9cm)LVOT Diameter2.1 (1.8-2.4cm) PWd1.1 (0.7-1.1cm)LVDs2.8 (2.5-4.0cm) FS (%) 39.1 %SV66.6 ml LVEF(%)65.0 (>50%) Aortic Valve AoV Peak Ilir.113.7cm/sAoV VTI20.1cm AO Peak GR.5.2mmHgLVOT VTI 22.13cm AO Mean GR.2mmHgAVA (VTI)3.90cm2 Mitral Valve MV E Pcqbtnqh89.3cm/sMV DECEL [id number] MV A Qybftgkg02.8cm/sE/A Ratio0.6 TDI Lateral E' P. V3.73cm/sMedial E' P. V2.77cm/s E/Lateral E'15.4E/Medial E'20.7 Tricuspid Valve TR P. [id number]/sRAP [id number] TR Peak Gr.[id number] Pulmonary Vein S1 Ugcjjezx72.2cm/sS2 Tzrobumc02.19cm/s D2 Cysmriak11.2cm/s LEFT VENTRICLE The left ventricle is normal size. There is mild asymmetric septal hypertrophy. The left ventricular systolic function is normal and the ejection fraction is within normal range. The Ejection Fraction i s 60-65%. There is normal LV segmental wall motion. Transmitral Doppler flow pattern is Grade I-abnor mal relaxation pattern. RIGHT VENTRICLE The right ventricle is normal size. The right ventricular systolic function is normal. ATRIA The left atrium size is normal. The right atrium size is normal. The interatrial septum is intact wit h no evidence for an atrial septal defect or patent foramen ovale as noted on 2-D or Doppler imaging. AORTIC VALVE The aortic valve is normal in structure and function. Doppler and Color Flow revealed trace to mild a ortic regurgitation. There is no significant aortic valvular stenosis. MITRAL VALVE The mitral valve is calcified but opens well. Mitral annular calcification is mild. There is no evide nce of mitral valve prolapse. There is no mitral valve stenosis. Doppler and Color-flow revealed trac e mitral regurgitation. TRICUSPID VALVE The tricuspid valve is normal in structure and function. Doppler and Color Flow revealed physiologica l tricuspid regurgitation. The PA pressure was estimated at 29 mmHg. There is no tricuspid valve sten osis. PULMONIC VALVE Doppler and Color Flow revealed mild pulmonic valvular regurgitation. There is no pulmonic valvular s tenosis. GREAT VESSELS The aortic root is normal in size. The ascending aorta is normal in size. The IVC is normal in size a nd collapses >50% with inspiration. PERICARDIAL EFFUSION There is no evidence of significant pericardial effusion. Critical Notification Critical Value: No <Conclusion> The left ventricular systolic function is normal and the ejection fraction is within normal range. Th e Ejection Fraction is 60-65%. There is normal LV segmental wall motion.
--- NOTE | 2017-06-27 13:12 | PDOC ---
PROGRESS NOTES Assessment Problems Medical Problems: (1) Focal neurological deficit Status: Acute (2) Stroke-like symptoms Status: Acute (3) TIA (transient ischemic attack) Status: Acute Acute 8 mm left lim radiata infract. Not TPA candidate onset of symptoms x 1 day before coming to [facility]. 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 Hx of throat surgery with hoarse voice. HTN HLD Amyloid angiopathy? GERD. Elevated lipase. Dementia features. Plan Increase ASA from 81 mg to 325 mg daily. Zocor 20 mg HS per floor team. He does not appear to need any further rehabilitation, but I told him and his that he could always have his primary physician refer him for PT/OT if he does not get the dexterity back in his right hand quick enough. Follow-up with neurology as needed. Okay for discharge. Subjective No complaints, wants to go home. Objective Vital Signs Date Time Temp Pulse Resp B/P (MAP) Pulse Ox O2 Delivery O2 Flow Rate FiO2 06/27/17 10:52 97.6 62 18 146/63 (90) 94 Room Air 97.6 PHYSICAL EXAM Alert. Oriented to time, place and person. PERRL. EOMI. CN: no focal findings. Muscle tone: normal. Muscle strength: 5/5, little less dexterous right hand DTR: 2+ Plantar reflex: Flexor Gait: Normal. Sensory exam: no abnormal findings. No cerebellar signs elicited. Review of Relevant I have reviewed the following items timoteo (where applicable) has been applied. Labs Laboratory Tests Test 06/26/17 09:55 06/27/17 05:17 White Blood Count 8.5 x10^3/uL (4.0-11.0) 8.0 x10^3/uL (4.0-11.0) Red Blood Count 4.83 x10^6/uL (4.30-5.70) 4.65 x10^6/uL (4.30-5.70) Hemoglobin 14.9 g/dL (13.0-17.5) 14.4 g/dL (13.0-17.5) Hematocrit 45.0 % (39.0-53.0) 42.6 % (39.0-53.0) Mean Corpuscular Volume 93 fL (79-100) 92 fL (79-100) Mean Corpuscular Hemoglobin 31 pg (25-35) 31 pg (25-35) Mean Corpuscular Hemoglobin Concent 33 g/dL (31-37) 34 g/dL (31-37) Red Cell Distribution Width 14.1 % (11.5-14.5) 14.2 % (11.5-14.5) Platelet Count 221 x10^3/uL (140-400) 212 x10^3/uL (140-400) Neutrophils (%) (Auto) 62 % (31-73) 61 % (31-73) Lymphocytes (%) (Auto) 23 % (24-48) 22 % (24-48) Monocytes (%) (Auto) 11 % (0-9) 11 % (0-9) Eosinophils (%) (Auto) 4 % (0-3) 5 % (0-3) Basophils (%) (Auto) 1 % (0-3) 1 % (0-3) Neutrophils # (Auto) 5.2 x10^3uL (1.8-7.7) 4.9 x10^3uL (1.8-7.7) Lymphocytes # (Auto) 1.9 x10^3/uL (1.0-4.8) 1.8 x10^3/uL (1.0-4.8) Monocytes # (Auto) 0.9 x10^3/uL (0.0-1.1) 0.9 x10^3/uL (0.0-1.1) Eosinophils # (Auto) 0.4 x10^3/uL (0.0-0.7) 0.4 x10^3/uL (0.0-0.7) Basophils # (Auto) 0.1 x10^3/uL (0.0-0.2) 0.1 x10^3/uL (0.0-0.2) Sodium Level 143 mmol/L (136-145) 144 mmol/L (136-145) Potassium Level 4.5 mmol/L (3.5-5.1) 4.4 mmol/L (3.5-5.1) Chloride Level 107 mmol/L (98-107) 109 mmol/L (98-107) Carbon Dioxide Level 25 mmol/L (21-32) 27 mmol/L (21-32) Anion Gap 11 (6-14) 8 (6-14) Blood Urea Nitrogen 19 mg/dL (8-26) 16 mg/dL (8-26) Creatinine 1.3 mg/dL (0.7-1.3) 1.3 mg/dL (0.7-1.3) Estimated GFR (Cockcroft-Gault) 53.0 53.0 Glucose Level 124 mg/dL (70-99) 110 mg/dL (70-99) Calcium Level 9.5 mg/dL (8.5-10.1) 9.1 mg/dL (8.5-10.1) Total Bilirubin 0.7 mg/dL (0.2-1.0) Direct Bilirubin 0.1 mg/dL (0.0-0.2) Aspartate Amino Transf (AST/SGOT) 27 U/L (15-37) Alanine Aminotransferase (ALT/SGPT) 29 U/L (16-63) Alkaline Phosphatase 58 U/L (46-116) Troponin I Quantitative < 0.017 ng/mL (0.000-0.055) Total Protein 7.0 g/dL (6.4-8.2) Albumin 3.9 g/dL (3.4-5.0) Triglycerides Level 114 mg/dL (0-150) Cholesterol Level 151 mg/dL (0-200) LDL Cholesterol, Calculated 92 mg/dL (0-100) VLDL Cholesterol, Calculated 23 mg/dL (0-40) Non-HDL Cholesterol Calculated 115 mg/dL (0-129) HDL Cholesterol 36 mg/dL (40-60) Cholesterol/HDL Ratio 4.2 Lipase 690 U/L (73-393) Laboratory Tests Test 06/27/17 05:17 White Blood Count 8.0 x10^3/uL (4.0-11.0) Red Blood Count 4.65 x10^6/uL (4.30-5.70) Hemoglobin 14.4 g/dL (13.0-17.5) Hematocrit 42.6 % (39.0-53.0) Mean Corpuscular Volume 92 fL (79-100) Mean Corpuscular Hemoglobin 31 pg (25-35) Mean Corpuscular Hemoglobin Concent 34 g/dL (31-37) Red Cell Distribution Width 14.2 % (11.5-14.5) Platelet Count 212 x10^3/uL (140-400) Neutrophils (%) (Auto) 61 % (31-73) Lymphocytes (%) (Auto) 22 % (24-48) Monocytes (%) (Auto) 11 % (0-9) Eosinophils (%) (Auto) 5 % (0-3) Basophils (%) (Auto) 1 % (0-3) Neutrophils # (Auto) 4.9 x10^3uL (1.8-7.7) Lymphocytes # (Auto) 1.8 x10^3/uL (1.0-4.8) Monocytes # (Auto) 0.9 x10^3/uL (0.0-1.1) Eosinophils # (Auto) 0.4 x10^3/uL (0.0-0.7) Basophils # (Auto) 0.1 x10^3/uL (0.0-0.2) Sodium Level 144 mmol/L (136-145) Potassium Level 4.4 mmol/L (3.5-5.1) Chloride Level 109 mmol/L (98-107) Carbon Dioxide Level 27 mmol/L (21-32) Anion Gap 8 (6-14) Blood Urea Nitrogen 16 mg/dL (8-26) Creatinine 1.3 mg/dL (0.7-1.3) Estimated GFR (Cockcroft-Gault) 53.0 Glucose Level 110 mg/dL (70-99) Calcium Level 9.1 mg/dL (8.5-10.1) Medications Current Medications Aspirin (Children'S Aspirin) 243 mg 1X ONCE PO Last administered on 06/26/17 12:50; Start 06/26/17 at 11:45; Stop 06/26/17 at 11:46; Status DC Ondansetron HCl (Zofran) 4 mg PRN Q8HRS PRN IV NAUSEA/VOMITING; Start 06/26/17 at 11:45; Stop 06/26/17 at 12:17; Status DC Morphine Sulfate 2 mg PRN Q2HR PRN IV PAIN; Start 06/26/17 at 11:45; Stop at 11:44; Status DC Sodium Chloride 1,000 ml @ 100 mls/hr Q10H IV Last administered on 06/27/17 07 :50; Start 06/26/17 at 11:44; Stop 06/27/17 at 11:43; Status DC Ondansetron HCl (Zofran) 4 mg PRN Q6HRS PRN IV NAUSEA/VOMITING; Start 06/26/17 at 12:15 Acetaminophen (Tylenol) 500 mg PRN QID PRN PO pain; Start 06/26/17 at 12:15 Clonidine HCl (Catapres) 0.1 mg PRN Q1HR PRN PO HYPERTENSION, SEE COMMENTS; Start 06/26/17 at 12:30 Aspirin (Children'S Aspirin) 81 mg DAILY PO ; Start 06/26/17 at 13:00; Status Cancel Simvastatin (Zocor) 20 mg QHS PO Last administered on 06/26/17 21:10; Start 06/26/17 at 21:00; Stop 06/27/17 at 09:14; Status DC Vitamin D (Vitamin D3) 2,000 unit DAILY PO ; Start 06/26/17 at 13:00; Stop at 18:22; Status DC Multivitamins (Thera M Plus) 1 tab DAILY PO Last administered on 06/27/17 07:49 ; Start 06/26/17 at 13:00 Pantoprazole Sodium (Protonix) 40 mg DAILYAC PO ; Start 06/26/17 at 13:00; Stop 06/26/17 at 18:22; Status DC Aspirin (Ecotrin) 325 mg DAILYWBKFT PO Last administered on 06/27/17 07:49; Start 06/27/17 at 08:00 Vitamin D (Vitamin D3) 2,000 unit HS PO Last administered on 06/26/17 21:10; Start 06/26/17 at 21:00 Pantoprazole Sodium (Protonix) 40 mg HS PO Last administered on 06/26/17 21:10 ; Start 06/26/17 at 21:00 Clopidogrel Bisulfate (Plavix) 300 mg 1X ONCE PO Last administered on 09:37; Start 06/27/17 at 09:15; Stop 06/27/17 at 09:16; Status DC Atorvastatin Calcium (Lipitor) 40 mg QHS PO ; Start 06/27/17 at 21:00 Active Scripts Active Reported Multivitamins (Multivitamin) 1 Each Tablet 1 Tab PO DAILY Vitamin D (Cholecalciferol (Vitamin D3)) 2,000 Unit Capsule 1 Cap PO DAILY [Vitamon B12] DAILY Aspirin 81 Mg Tab.chew 1 Tab PO DAILY Omeprazole 20 Mg Capsule.dr 1 Cap PO DAILY Simvastatin 20 Mg Tablet 1 Tab PO QHS Vitals/I & O Vital Sign - Last 24 Hours 06/26/17 06/26/17 06/26/17 06/26/17 13:32 14:51 19:00 20:00 Temp 97.8 98.0 97.8 98.0 Pulse 89 65 Resp 18 20 B/P (MAP) 122/77 (92) 165/75 (105) Pulse Ox 97 92 O2 Delivery Room Air Room Air Room Air Room Air 06/26/17 06/27/17 06/27/17 06/27/17 23:01 03:13 07:14 08:43 Temp 97.9 97.7 97.9 97.9 97.7 97.9 Pulse 65 62 66 Resp 20 20 18 B/P (MAP) 185/69 (107) 151/75 (100) 151/73 (99) Pulse Ox 93 92 93 O2 Delivery Room Air Room Air Room Air Room Air 06/27/17 06/27/17 06/27/17 09:04 09:18 10:52 Temp 97.5 97.6 97.5 97.6 Pulse 57 62 Resp 16 18 B/P (MAP) 140/92 (108) 146/63 (90) Pulse Ox 94 O2 Delivery Room Air Room Air Room Air Images Carotid: IMPRESSION: Mild atherosclerotic plaquing at the left carotid bifurcation with underlying luminal narrowing in the 0-50% diameter range. Echo: LEFT VENTRICLE The left ventricle is normal size. There is mild asymmetric septal hypertrophy. The left ventricular systolic function is normal and the ejection fraction is within normal range. The Ejection Fraction is 60-65%. There is normal LV segmental wall motion. Transmitral Doppler flow pattern is Grade I-abnormal relaxation pattern. RIGHT VENTRICLE The right ventricle is normal size. The right ventricular systolic function is normal. ATRIA The left atrium size is normal. The right atrium size is normal. The interatrial septum is intact with no evidence for an atrial septal defect or patent foramen ovale as noted on 2-D or Doppler imaging. AORTIC VALVE The aortic valve is normal in structure and function. Doppler and Color Flow revealed trace to mild aortic regurgitation. There is no significant aortic valvular stenosis. MITRAL VALVE The mitral valve is calcified but opens well. Mitral annular calcification is mild. There is no evidence of mitral valve prolapse. There is no mitral valve stenosis. Doppler and Color-flow revealed trace mitral regurgitation. TRICUSPID VALVE The tricuspid valve is normal in structure and function. Doppler and Color Flow revealed physiological tricuspid regurgitation. The PA pressure was estimated at 29 mmHg. There is no tricuspid valve stenosis. PULMONIC VALVE Doppler and Color Flow revealed mild pulmonic valvular regurgitation. There is no pulmonic valvular stenosis. GREAT VESSELS The aortic root is normal in size. The ascending aorta is normal in size. The IVC is normal in size and collapses >50% with inspiration. PERICARDIAL EFFUSION There is no evidence of significant pericardial effusion. Critical Notification Critical Value: No <Conclusion> The left ventricular systolic function is normal and the ejection fraction is within normal range. The Ejection Fraction is 60-65%. There is normal LV segmental wall motion. AURA GRIFFIN MD Jun 27, 2017 13:12
[2017-06-27] MEDS ORDERED: ASPI325T11 PO (13:20)
[2017-06-27] MEDS ORDERED: ATOR40TA59 PO (13:20)
--- NOTE | 2017-06-27 13:24 | PDOC3 ---
Discharge Summary [facility] Date of Admission: Jun 26, 2017 Discharge Date: Jun 27, 2017 Admitting Diagnosis acute left stroke with right side mild weakness GERD Problems: Final Diagnosis CONSULTS neuro Brief Hospital Course Mr. Malik is a 81 old M, pretty healthy, came for right side weakness. MRI brain showed acute left parietal ischemia stroke, MRA showed 50% left vetebral A stenosis. pt weakness improves, very mild now, may benefit from outpt PTOT, fu with pcp. ehco is normal. dc with asa 325mg as per neuro, add lipitor 40mg daily dc time 40min HEENT: Atraumatic, PERRLA, EOMI Lungs: Clear to auscultation Heart: S1S2, no thrills, no gallops, no murmurs Cardiovascular: S2 Abdomen: Normal bowel sounds, Soft, No tenderness, No hepatosplenomegaly, No masses Male Genitals Exam: normal genitalia, normal prostate PELVIC: Nml ext genitalia Extremities: No clubbing, No cyanosis, No edema, Normal pulses, No tenderness/ swelling Skin: No rashes, No breakdown, No significant lesion Neuro: Other (4/5 on RLE, rest is 5/5, sensory intact, DTR 2 plus, on slurred , no facial asymmetry) Psych/Mental Status: Mental status NL, Mood NL Problems: Disposition home CONDITION AT DISCHARGE: Improved Diet regular Scheduled Aspirin (Aspirin Ec), 325 MG PO DAILYWBKFT Atorvastatin Calcium (Atorvastatin Calcium), 40 MG PO QHS Cholecalciferol (Vitamin D3) (Vitamin D), 1 CAP PO DAILY, (Reported) Multivitamin (Multivitamins), 1 TAB PO DAILY, (Reported) Omeprazole (Omeprazole), 1 CAP PO DAILY, (Reported) [Vitamon B12], DAILY, (Reported) Discontinued Medications Aspirin (Aspirin), 1 TAB PO DAILY, (Reported) Simvastatin (Simvastatin), 1 TAB PO QHS, (Reported) Follow Up pcp next week RICHARD JUÁREZ MD Jun 27, 2017 13:24
[2017-06-27] MEDS ORDERED: ATORVASTATIN CALCIUM 40 MG TABLET. PO SCH (21:00)
== END 2017-06-27 13:46 | disposition home or self-care (01) ==
LOC: ER 09:45 → 6 SOUTH 11:27
PROVIDERS: ADMIT Internal Medicine; ATTEND Internal Medicine
DX: I63.9 Cerebral infarction, unspecified (principal); G81.91 Hemiplegia, unspecified affecting right dominant side; K21.9 Gastro-esophageal reflux disease without esophagitis; I10 Essential (primary) hypertension; E78.5 Hyperlipidemia, unspecified; F03.90 Unspecified dementia, unspecified severity, without behavioral disturbance, psychotic disturbance, mood disturbance, and anxiety; E78.00 Pure hypercholesterolemia, unspecified; I07.1 Rheumatic tricuspid insufficiency; Z79.899 Other long term (current) drug therapy; Z91.041 Radiographic dye allergy status; Z82.49 Family history of ischemic heart disease and other diseases of the circulatory system
CPT/HCPCS: 36415; 70450; 70544; 70547; 70551; 80048; 80061; 80076; 83690; 84484; 85025; 93005; 93306; 93880; 96360; 96361; 97162; 97165; 99285; G0378; G8984; G8985; J7030; G0379

== ENCOUNTER → 2018-02-16 | Outpatient (CLI) | payer OTHER | END | disposition home or self-care (01) | LOC: US 14:28 | DX: R53.1 Weakness (principal); Z86.73 Personal history of transient ischemic attack (TIA), and cerebral infarction without residual deficits | CPT/HCPCS: 70551; 93880 ==

== ENCOUNTER → 2018-04-12 | Outpatient (CLI) | payer OTHER | END | disposition home or self-care (01) | LOC: MRI 15:25 | DX: M48.02 Spinal stenosis, cervical region (principal); M50.323 Other cervical disc degeneration at C6-C7 level; M47.892 Other spondylosis, cervical region; M25.78 Osteophyte, vertebrae | CPT/HCPCS: 72141 ==

== ENCOUNTER 2018-12-24 19:10 | Inpatient (IN) | payer OTHER ==
[~2018-12-24] VITALS: Ht 182.9 cm; Wt 94.1 kg
[~2018-12-24 19:10] MED LIST changes: +ASPI325T11 PO; +ATOR40TA59 PO; +LOSA-73 PO; +METO-239 PO; +OMEP20CA10 PO; -OMEP20CA9 PO; +SUCR1TAB PO; +TAMS0.4C2 PO
[2018-12-24] MEDS ORDERED: ACETAMINOPHEN 500 MG TABLET PO ONE (19:30)
[2018-12-24] MEDS ORDERED: IV NORMAL SALINE 1000ML BAG 1,000 ML IV ONE (19:30)
--- NOTE | 2018-12-24 19:36 | PHYS DOC ---
Past Medical History Past Medical History: CVA, GERD, High Cholesterol, Hypertension Past Surgical History: Tonsillectomy, Other Additional Past Surgical Histo: HERNIA REPAIR,THROAT SX Alcohol Use: None Drug Use: None Adult General Chief Complaint Chief Complaint: NEURO SYMPTOMS/DEFICITS [facility] HPI Pt is an 83-year-old male who presents to the emergency department for evaluation. He states that this morning, when he tried to get out of bed he felt very weak. He did not have any new focal weakness, but just feels generally weak. He did not have any pain, denies any traumatic injuries, denies any headache, neck pain, back pain, but does admit to having a cough and some nasal congestion. He is noted to be febrile upon arrival in the emergency department. He was initially concerned that he might have had another stroke, because he felt weak with his prior stroke, but his weakness at that time was more right-sided and he is more generally weak at this time. He has not had any speech difficulties or vision difficulties. He denies any headaches. There are no alleviating or exacerbating factors to the patient's symptoms otherwise. Review of Systems Review of Systems Constitutional: Generalized weakness and fatigue.[] Eyes: Denies change in visual acuity, redness, or eye pain [] HENT: Denies otalgia or sore throat [] Respiratory: Productive cough, of clear sputum, denies shortness of breath [] Cardiovascular: No additional information not addressed in HPI [] GI: Denies abdominal pain, nausea, vomiting, bloody stools or diarrhea [] : Denies dysuria or hematuria [] Musculoskeletal: Denies back pain or joint pain [] Integument: Denies rash or skin lesions [] Neurologic: Denies headache, focal weakness or sensory changes [] Endocrine: Denies polyuria or polydipsia [] All other systems were reviewed and found to be within normal limits, except as documented in this note. Current Medications Current Medications Current Medications Medications (Trade) Dose Ordered Sig/Zane Start Time Stop Time Status Last Admin Dose Admin Acetaminophen (Tylenol) 1,000 mg 1X ONCE 12/24/18 19:30 12/24/18 19:33 DC 12/24/18 19:30 1,000 MG Oseltamivir Phosphate (Tamiflu) 75 mg 1X ONCE 12/24/18 20:00 12/24/18 20:01 DC 12/24/18 20:00 75 MG Sodium Chloride 1,000 ml @ 125 mls/hr 1X ONCE 12/24/18 19:30 12/25/18 03:29 12/24/18 19:30 125 MLS/HR Allergies Allergies Allergies Coded Allergies Type Severity Reaction Last Updated Verified iodine Allergy Intermediate Rash 08/12/15 Yes iron Allergy Intermediate Rash 09/05/15 Yes iron dextran complex Allergy Intermediate Rash 09/05/15 Yes Physical Exam Physical Exam PHYSICAL EXAM: CONSTITUTIONAL: Well developed, well nourished HEAD: normocephalic, atraumatic EENT: PERRL, EOMI. Conjunctivae normal color, sclerae non-icteric; moist mucous membranes. NECK: Supple, non-tender; no meningismus. LUNGS: Lungs CTA, breathing even and unlabored. Normal air movement. HEART: Regular rate and rhythm, no murmur CHEST: No deformity; non-tender ABDOMEN: The abdomen is soft, and non-tender, no masses or bruits. EXTREM: Normal ROM; no deformity, no calf tenderness. Normal pulses palpable in all extremities. There is no pedal edema. SKIN: No rash; no diaphoresis NEURO: Alert; normal speech and cognition; CN's grossly intact; strength grossly intact without focal deficit. BACK: No CVA TTP. Current Patient Data Vital Signs Vital Signs Date Time Temp Pulse Resp B/P (MAP) Pulse Ox O2 Delivery O2 Flow Rate FiO2 12/24/18 20:00 86 95 12/24/18 19:31 100.1 18 152/67 (95) Nasal Cannula 2.0 100.1 Lab Values Laboratory Tests Test 12/24/18 19:15 12/24/18 19:17 12/24/18 19:25 White Blood Count 7.4 x10^3/uL (4.0-11.0) Red Blood Count 4.61 x10^6/uL (4.30-5.70) Hemoglobin 14.0 g/dL (13.0-17.5) Hematocrit 42.9 % (39.0-53.0) Mean Corpuscular Volume 93 fL (79-100) Mean Corpuscular Hemoglobin 31 pg (25-35) Mean Corpuscular Hemoglobin Concent 33 g/dL (31-37) Red Cell Distribution Width 13.7 % (11.5-14.5) Platelet Count 165 x10^3/uL (140-400) Neutrophils (%) (Auto) 63 % (31-73) Lymphocytes (%) (Auto) 16 % (24-48) L Monocytes (%) (Auto) 20 % (0-9) H Eosinophils (%) (Auto) 1 % (0-3) Basophils (%) (Auto) 1 % (0-3) Neutrophils # (Auto) 4.6 x10^3uL (1.8-7.7) Lymphocytes # (Auto) 1.2 x10^3/uL (1.0-4.8) Monocytes # (Auto) 1.5 x10^3/uL (0.0-1.1) H Eosinophils # (Auto) 0.1 x10^3/uL (0.0-0.7) Basophils # (Auto) 0.1 x10^3/uL (0.0-0.2) Segmented Neutrophils % 54 % (35-66) Band Neutrophils % 14 % (0-9) H Lymphocytes % 12 % (24-48) L Monocytes % 18 % (0-10) H Eosinophils % 2 % (0-5) Platelet Estimate Adequate (ADEQUATE) Prothrombin Time 13.7 SEC (11.7-14.0) Prothrombin Time INR 1.1 (0.8-1.1) Sodium Level 140 mmol/L (136-145) Potassium Level 4.2 mmol/L (3.5-5.1) Chloride Level 104 mmol/L (98-107) Carbon Dioxide Level 26 mmol/L (21-32) Anion Gap 10 (6-14) Blood Urea Nitrogen 23 mg/dL (8-26) Creatinine 1.5 mg/dL (0.7-1.3) H Estimated GFR (Cockcroft-Gault) 44.7 BUN/Creatinine Ratio 15 (6-20) Glucose Level 134 mg/dL (70-99) H Lactic Acid Level 1.0 mmol/L (0.4-2.0) Calcium Level 9.2 mg/dL (8.5-10.1) Magnesium Level 2.1 mg/dL (1.8-2.4) Total Bilirubin 0.4 mg/dL (0.2-1.0) Aspartate Amino Transferase (AST) 43 U/L (15-37) H Alanine Aminotransferase (ALT) 47 U/L (16-63) Alkaline Phosphatase 66 U/L (46-116) Creatine Kinase 220 U/L (39-308) Creatine Kinase MB (Mass) 0.6 ng/mL (0.0-3.6) Creatine Kinase MB Relative Index 0.3 % (0-4) Troponin I Quantitative 0.149 ng/mL (0.000-0.055) JB-Mtv-X-Type Natriuretic Peptide 254 pg/mL (0-449) Total Protein 6.6 g/dL (6.4-8.2) Albumin 3.2 g/dL (3.4-5.0) L Albumin/Globulin Ratio 0.9 (1.0-1.7) L Glucose (Fingerstick) 134 mg/dL (70-99) H Influenza Type A Antigen Positive (NEGATIVE) Influenza Type B Antigen Negative (NEGATIVE) Laboratory Tests 12/24/18 19:15 Laboratory Tests 12/24/18 19:15 EKG EKG [Normal sinus rhythm at a rate of 99 beats for minute, left axis deviation, normal intervals. There are no acute ischemic ST/T changes] Radiology/Procedures Radiology/Procedures ER physician preliminary chest x-ray interpretation: No acute disease. PROCEDURE: CT HEAD WO CONTRAST CT HEAD WO CONTRAST History: Weakness, previous stroke Comparison: June 17, 2018 Technique: Noncontrast CT imaging was performed of the head. Exposure: One or more of the following individualized dose reduction techniques were utilized for this examination: 1. Automated exposure control 2. Adjustment of the mA and/or kV according to patient size 3. Use of iterative reconstruction technique. Findings: No acute intracranial hemorrhage is identified. There is again multifocal scattered ill-defined low-density of the supratentorial parenchyma also some areas of more ill-defined low-density in a bilateral distribution as seen previously. There is also focus of relative lower density of the left lateral krystle although artifact in this region limiting evaluation, difficult to discern if a true finding. There is no new midline shift or intra-axial mass effect. Visualized paranasal sinuses and mastoid air cells are aerated. There is atherosclerotic calcification of the carotid siphons bilaterally. Impression: 1. There is no evidence of acute intracranial hemorrhage. There is a focus of relative lower density of the left lateral krystle difficulty characterize if a true finding although focus of subacute infarct a consideration in the appropriate clinical setting. As seen previously, there is multifocal low-density in a bilateral distribution, evidence of combination of chronic microvascular ischemic disease and multifocal lacunar infarcts. MRI would more accurately evaluate for recent infarct especially given multifocal old infarcts. Course & Med Decision Making Course & Med Decision Making Pertinent Labs and Imaging studies reviewed. (See chart for details) [9:20 PM: The patient's condition remains stable. I suspect his main issue is influenza, although I'm uncertain of the elevated troponin, and cannot rule out another acute stroke although this is not highly suspected. I spoke with the hospitalist, who accepted the patient to the hospital for further evaluation and treatment. Dragon Disclaimer Dragon Disclaimer This electronic medical record was generated, in whole or in part, using a voice recognition dictation system. Departure Departure Impression: Primary Impression: Influenza A Additional Impressions: Elevated troponin Weakness Disposition: ADMITTED INPATIENT Admitting Physician: Adelina Callejas Condition: STABLE Problem Qualifiers CLEVELAND FARLEY MD Dec 24, 2018 19:36
[2018-12-24 19:39] LABS: BASO # 0.1 x10^3/uL (0.0-0.2); BASO % 1 % (0-3); EOS # 0.1 x10^3/uL (0.0-0.7); EOS % 1 % (0-3); HEMATOCRIT 42.9 % (39.0-53.0); LYMPH # 1.2 x10^3/uL (1.0-4.8); LYMPH % 16 % (24-48); MEAN CORPUSCULAR HEMOGLOBIN 31 pg (25-35); MEAN CORPUSCULAR HGB CONC 33 g/dL (31-37); MEAN CORPUSCULAR VOLUME 93 fL (79-100); MONO # 1.5 x10^3/uL (0.0-1.1); MONO % 20 % (0-9); NEUT # 4.6 x10^3uL (1.8-7.7); NEUT % 63 % (31-73); PLATELET COUNT 165 x10^3/uL (140-400); RED BLOOD COUNT 4.61 x10^6/uL (4.30-5.70); RED CELL DISTRIBUTION WIDTH 13.7 % (11.5-14.5); WHITE BLOOD COUNT 7.4 x10^3/uL (4.0-11.0)
[2018-12-24 19:47] LABS: PROTHROMBIN TIME PATIENT 13.7 SEC (11.7-14.0)
[2018-12-24 19:53] LABS: % BANDS 14 % (0-9); % EOS 2 % (0-5); % LYMPHS 12 % (24-48); % MONOS 18 % (0-10); % SEGS 54 % (35-66); PLT ESTIMATE ADEQUATE (ADEQUATE)
[2018-12-24 19:54] LABS: CALCIUM 9.2 mg/dL (8.5-10.1); CREATININE 1.5 mg/dL (0.7-1.3); GFR 44.7; POTASSIUM 4.2 mmol/L (3.5-5.1)
[2018-12-24 19:58] LABS: INFLUENZA A PATIENT POSITIVE (NEGATIVE); INFLUENZA B PATIENT NEGATIVE (NEGATIVE)
[2018-12-24] MEDS ORDERED: OSELTAMIVIR 75 MG CAPSULE PO ONE (20:00)
[2018-12-24 20:07] LABS: ALBUMIN 3.2 g/dL (3.4-5.0); ALBUMIN/GLOBULIN RATIO 0.9 (1.0-1.7); MAGNESIUM 2.1 mg/dL (1.8-2.4); TOTAL BILIRUBIN 0.4 mg/dL (0.2-1.0); TOTAL PROTEIN 6.6 g/dL (6.4-8.2)
--- NOTE | 2018-12-24 20:43 | RAD ---
CT HEAD WO CONTRAST History: Weakness, previous stroke Comparison: June 17, 2018 Technique: Noncontrast CT imaging was performed of the head. Exposure: One or more of the following individualized dose reduction techniques were utilized for this examination: 1. Automated exposure control 2. Adjustment of the mA and/or kV according to patient size 3. Use of iterative reconstruction technique. Findings: No acute intracranial hemorrhage is identified. There is again multifocal scattered ill-defined low-density of the supratentorial parenchyma also some areas of more ill-defined low-density in a bilateral distribution as seen previously. There is also focus of relative lower density of the left lateral krystle although artifact in this region limiting evaluation, difficult to discern if a true finding. There is no new midline shift or intra-axial mass effect. Visualized paranasal sinuses and mastoid air cells are aerated. There is atherosclerotic calcification of the carotid siphons bilaterally. Impression: 1. There is no evidence of acute intracranial hemorrhage. There is a focus of relative lower density of the left lateral krystle difficulty characterize if a true finding although focus of subacute infarct a consideration in the appropriate clinical setting. As seen previously, there is multifocal low-density in a bilateral distribution, evidence of combination of chronic microvascular ischemic disease and multifocal lacunar infarcts. MRI would more accurately evaluate for recent infarct especially given multifocal old infarcts. Findings discussed with CLEVELAND FARLEY at 12/24/2018 8:39 PM. Electronically signed by: Jack [place] MD (12/24/2018 8:40 PM) [facility]
[2018-12-24] MEDS ORDERED: ASPIRIN 325 MG TABLET PO ONE (22:00)
[2018-12-24 22:20] VITALS: BP 130/59
--- NOTE | 2018-12-24 22:30 | NUR ---
Admit from ED to [address] [place] [address] 210 via [facility]. Patient transferred from [facility] to bed with 3 person lift. Patient is alert on arrival to unit. Patient could not tell me home med list. Patient explains he had home med list in [facility]. took wallet home. Orientated to room and call light. Reviewed POC to include call for assist while out of bed and lab draws. Patient verbalized understanding. Bed alarm on. Call light at hand.
--- NOTE | 2018-12-24 23:10 | RAD ---
PORTABLE CHEST 1V History: COUGH, FEVER, WEAKNESS Comparison: June 17, 2018 Findings: Single view of the chest is submitted. There is again somewhat tortuous thoracic aortic, atherosclerotic calcification near arch. There is no lobar consolidation, likely mild atelectasis left lung base. There is no pleural fluid or pneumothorax. Heart size is stable, within normal limits given technique. There may be emphysema. Impression: 1. There is mild left base atelectasis. There may be emphysema. Electronically signed by: Jack [place] MD (12/24/2018 11:07 PM) [facility]
[2018-12-25 02:55] VITALS: BP 127/65
[2018-12-25 04:27] LABS: BASO % 1 % (0-3); EOS # 0.1 x10^3/uL (0.0-0.7); EOS % 1 % (0-3); HEMATOCRIT 41.6 % (39.0-53.0); HEMOGLOBIN 13.4 g/dL (13.0-17.5); LYMPH # 1.7 x10^3/uL (1.0-4.8); LYMPH % 29 % (24-48); MEAN CORPUSCULAR HEMOGLOBIN 30 pg (25-35); MEAN CORPUSCULAR HGB CONC 32 g/dL (31-37); MEAN CORPUSCULAR VOLUME 94 fL (79-100); MONO # 1.2 x10^3/uL (0.0-1.1); MONO % 20 % (0-9); NEUT # 2.9 x10^3uL (1.8-7.7); NEUT % 49 % (31-73); PLATELET COUNT 152 x10^3/uL (140-400); RED BLOOD COUNT 4.42 x10^6/uL (4.30-5.70); RED CELL DISTRIBUTION WIDTH 13.9 % (11.5-14.5)
[2018-12-25 04:39] LABS: CALCIUM 8.7 mg/dL (8.5-10.1); CREATININE 1.5 mg/dL (0.7-1.3); GFR 44.7; POTASSIUM 4.2 mmol/L (3.5-5.1)
[2018-12-25 07:00] VITALS: BP 120/60
[2018-12-25] MEDS ORDERED: METO-239 PO (07:49)
[2018-12-25] MEDS ORDERED: LOSA100T14 PO (07:49)
--- NOTE | 2018-12-25 08:31 | EKG ---
[facility] [address] [place] [address] Test Date: 2018-12-24 Test Time: 19:46:43 Pat Name: RUDY NIELSEN Department: Room: 210 1 Gender: M Technical Services Specialist: : [id number] Requested By: CLEVELAND FARLEY Order Number: [id number] Reading MD: Hugo Luke Measurements Intervals [place] Rate: 99 P: 31 FL: 146 QRS: -28 QRSD: 102 T: 25 QT: 348 QTc: 452 Interpretive Statements SINUS RHYTHM LEFTWARD AXIS Electronically Signed On 12-25-2018 11:09:26 SPONGE FISHERMAN by Hugo Luke
[2018-12-25] MEDS: OSELTAMIVIR 30 MG CAPSULE PO SCH ×2 (08:40→20:46)
--- NOTE | 2018-12-25 09:28 | NUR ---
IP: Pt is influenza + requiring droplet precautions for 5 days and 24 hours without a fever, whichever is longest.
[2018-12-25 10:46] VITALS: BP 140/65
--- NOTE | 2018-12-25 12:07 | NUR ---
SS following for discharge planning. SS reviewed pt chart. Pt is from home with spouse and is currently on room air. PT/OT ordered. SS will await PT/OT evaluations and recommendations and will proceed accordingly with discharge planning.
--- NOTE | 2018-12-25 12:07 | HP ---
ADMIT DATE: 12/25/2018 CHIEF COMPLAINT: Weakness. HISTORY OF PRESENT ILLNESS: The patient is a pleasant 83-year-old male who could not get out of bed this morning; he felt quite weak. He states his right arm was a little weak. He was having a cough and some nasal congestion and this has been going on for a few days. He rates it a 7/10. He tried taking some home meds, but that did not work. Upon arrival to the ER, he was also noted to have a low-grade fever of 100.1. We checked him for influenza and he is positive for flu A. He also has a slightly elevated troponin. We are going to admit the patient, give him Tamiflu and consult Cardiology. PAST MEDICAL HISTORY: Stroke, GERD, hypertension, hyperlipidemia, tonsillectomy, hernia repair and throat surgery. ALLERGIES: IODINE AND IRON. FAMILY HISTORY: Coronary artery disease. SOCIAL HISTORY: He does not drink, smoke or take drugs. MEDICATIONS: Reviewed. Please refer to the MRAD. REVIEW OF SYSTEMS: GENERAL: No history of weight change, weakness or fevers. SKIN: No bruising, hair changes or rashes. EYES: No blurred, double or loss of vision. NOSE AND THROAT: No history of nosebleeds, hoarseness or sore throat. HEART: No history of palpitations, chest pain or shortness of breath on exertion. LUNGS: Denies cough, hemoptysis, wheezing or shortness of breath. GASTROINTESTINAL: Denies changes in appetite, nausea, vomiting, diarrhea or constipation. GENITOURINARY: No history of frequency, urgency, hesitancy or nocturia. NEUROLOGIC: Denies history of numbness, tingling or tremor. He complains of weakness. PSYCHIATRIC: No history of panic, anxiety or depression. ENDOCRINE: No history of heat or cold intolerance, polyuria or polydipsia. EXTREMITIES: Denies muscle weakness, joint pain, pain on walking or stiffness. PHYSICAL EXAMINATION: VITAL SIGNS: Temperature afebrile this morning, but it was 100.1 last night; pulse 80; respirations 18 and blood pressure 120/60. GENERAL: He is alert, cooperative. HEART: Normal S1, S2. LUNGS: Clear. ABDOMEN: Soft. EXTREMITIES: Trace edema. SKIN: No rashes. ENDOCRINE: No thyromegaly. LYMPHATICS: No cervical nodes. HEMATOPOIETIC: No bruising. PSYCHIATRIC: He is stable. NEUROLOGIC: He has got weakness on the right arm. LABORATORY DATA: Electrolytes are normal, other than chloride of 108 and a creatinine of 1.5. Troponin is 0.13. INR is 1.1. Flu testing is positive for flu A. ASSESSMENT AND PLAN: Influenza A with an incidental finding of elevated troponin. We are going to admit the patient and consult Cardiology. Tamiflu 75 p.o. b.i.d. PT, OT, SNU evaluation, DVT prophylaxis. Full code. BRI WARD DO DR: VANESSA/genaro JOB#: [id number] / [id number]
[2018-12-25] MEDS: LOSARTAN POTASSIUM 50 MG TABLET. PO SCH (12:21)
[2018-12-25] MEDS: MULTIVITAMIN with MINERAL TABLET. PO SCH (12:21)
[2018-12-25] MEDS: METOPROLOL SUCC 24HR ER 25 MG TAB.ER.24H. PO SCH (12:21)
[2018-12-25] MEDS: PANTOPRAZOLE 40 MG TABLET.DR. PO SCH (12:22)
[2018-12-25] MEDS: ASPIRIN ENTERIC COATED 325 MG TABLET.DR. PO SCH (12:22)
[2018-12-25] MEDS: CHOLECALCIFEROL (VITAMIN D3) 1,000 UNIT TABLET PO SCH (12:22)
--- NOTE | 2018-12-25 12:40 | PDOC2 ---
CARDIAC CONSULT DATE OF CONSULT Date of Consult DATE: 12/25/18 TIME: 12:32 REASON FOR CONSULT Reason for Consult: Elevated troponin REFERRING PHYSICIAN Referring Physician: Britta SOURCE Source: Chart review, Patient HISTORY OF PRESENT ILLNESS HISTORY OF PRESENT ILLNESS This is a pleasant 83 yo male admitted for complains of weakness and cough. Reports that he could not even placed his pants on and almost slid down from the bed. He felt weak and started yesterday. He thought he was ahving another stroke. No stroke symptoms, no unilateral weakness, dysarthria, facial droop no visual or auditory disturbances. Also has been coughing with productive sputum in the last few days with yellow in color. No fever per se but feels hot at times. No chest pain, palpitations or SOA. PAST MEDICAL HISTORY Cardiovascular: HTN, Hyperlipidemia, Other (PSVT) CENTRAL NERVOUS SYSTEM: CVA GI: GERD Heme/Onc: No pertinent hx Renal/: Benign prostatic enlarg. PAST SURGICAL HISTORY Past Surgical History: Hernia Repair FAMILY HISTORY Family History: Hypertension SOCIAL HISTORY Smoke: No ALCOHOL: none Drugs: None CURRENT MEDICATIONS CURRENT MEDICATIONS Current Medications Medications (Trade) Dose Ordered Sig/Zane Route PRN Reason Start Time Stop Time Status Last Admin Dose Admin Acetaminophen (Tylenol) 1,000 mg 1X ONCE PO 12/24/18 19:30 12/24/18 19:33 DC 12/24/18 19:30 Sodium Chloride 1,000 ml @ 125 mls/hr 1X ONCE IV 12/24/18 19:30 12/25/18 03:29 DC 12/24/18 19:30 Oseltamivir Phosphate (Tamiflu) 75 mg 1X ONCE PO 12/24/18 20:00 12/24/18 20:01 DC 12/24/18 20:00 Aspirin (Elier Aspirin) 325 mg 1X ONCE PO 12/24/18 22:00 12/24/18 22:01 DC 12/24/18 21:58 Oseltamivir Phosphate (Tamiflu) 30 mg BID PO 12/25/18 09:00 12/29/18 09:01 12/25/18 08:40 Aspirin (Ecotrin) 325 mg DAILYWBKFT PO 12/25/18 12:00 12/25/18 12:22 Metoprolol Succinate (Toprol Xl) 25 mg DAILY PO 12/25/18 12:00 12/25/18 12:21 Vitamin D (Vitamin D3) 2,000 unit DAILY PO 12/25/18 12:00 12/25/18 12:22 Losartan Potassium (Cozaar) 100 mg DAILY PO 12/25/18 12:00 12/25/18 12:21 Multivitamins (Thera M Plus) 1 tab DAILY PO 12/25/18 12:00 12/25/18 12:21 Pantoprazole Sodium (Protonix) 40 mg DAILYAC PO 12/25/18 12:00 12/25/18 12:22 ALLERGIES ALLERGIES: Coded Allergies: iodine (Verified Allergy, Intermediate, Rash, 08/12/15) iron (Verified Allergy, Intermediate, Rash, 09/05/15) INJECTABLE iron dextran complex (Verified Allergy, Intermediate, Rash, 09/05/15) ROS Review of System 14 point ROS evaluated with pertinent positives noted per HPI PHYSICAL EXAM General: Alert, Oriented X3, Cooperative HEENT: Atraumatic, Mucous membr. moist/pink Lungs: Other (diminished bases) Heart: Regular rate (SR), Normal S1, Normal S2, Other (2/6 systolic murmur to LLS border) Abdomen: Soft, No tenderness Extremities: No cyanosis, No edema Skin: No breakdown, No significant lesion Neuro: Normal speech, Sensation intact Psych/Mental Status: Mental status NL, Mood NL MUSCULOSKELETAL: Osteoarthritic changes both hands VITALS VITALS Vital Signs Date Time Temp Pulse Resp B/P (MAP) Pulse Ox O2 Delivery O2 Flow Rate FiO2 12/25/18 12:21 70 140/65 12/25/18 10:46 98.5 16 93 Room Air 98.5 12/25/18 02:55 2.0 LABS Lab: Laboratory Tests Test 12/24/18 19:15 12/24/18 19:17 12/24/18 19:25 12/25/18 00:40 White Blood Count 7.4 x10^3/uL (4.0-11.0) Red Blood Count 4.61 x10^6/uL (4.30-5.70) Hemoglobin 14.0 g/dL (13.0-17.5) Hematocrit 42.9 % (39.0-53.0) Mean Corpuscular Volume 93 fL (79-100) Mean Corpuscular Hemoglobin 31 pg (25-35) Mean Corpuscular Hemoglobin Concent 33 g/dL (31-37) Red Cell Distribution Width 13.7 % (11.5-14.5) Platelet Count 165 x10^3/uL (140-400) Neutrophils (%) (Auto) 63 % (31-73) Lymphocytes (%) (Auto) 16 % (24-48) Monocytes (%) (Auto) 20 % (0-9) Eosinophils (%) (Auto) 1 % (0-3) Basophils (%) (Auto) 1 % (0-3) Neutrophils # (Auto) 4.6 x10^3uL (1.8-7.7) Lymphocytes # (Auto) 1.2 x10^3/uL (1.0-4.8) Monocytes # (Auto) 1.5 x10^3/uL (0.0-1.1) Eosinophils # (Auto) 0.1 x10^3/uL (0.0-0.7) Basophils # (Auto) 0.1 x10^3/uL (0.0-0.2) Segmented Neutrophils % 54 % (35-66) Band Neutrophils % 14 % (0-9) Lymphocytes % 12 % (24-48) Monocytes % 18 % (0-10) Eosinophils % 2 % (0-5) Platelet Estimate Adequate (ADEQUATE) Prothrombin Time 13.7 SEC (11.7-14.0) Prothromb Time International Ratio 1.1 (0.8-1.1) Sodium Level 140 mmol/L (136-145) Potassium Level 4.2 mmol/L (3.5-5.1) Chloride Level 104 mmol/L (98-107) Carbon Dioxide Level 26 mmol/L (21-32) Anion Gap 10 (6-14) Blood Urea Nitrogen 23 mg/dL (8-26) Creatinine 1.5 mg/dL (0.7-1.3) Estimated GFR (Cockcroft-Gault) 44.7 BUN/Creatinine Ratio 15 (6-20) Glucose Level 134 mg/dL (70-99) Lactic Acid Level 1.0 mmol/L (0.4-2.0) Calcium Level 9.2 mg/dL (8.5-10.1) Magnesium Level 2.1 mg/dL (1.8-2.4) Total Bilirubin 0.4 mg/dL (0.2-1.0) Aspartate Amino Transf (AST/SGOT) 43 U/L (15-37) Alanine Aminotransferase (ALT/SGPT) 47 U/L (16-63) Alkaline Phosphatase 66 U/L (46-116) Creatine Kinase 220 U/L (39-308) Creatine Kinase MB (Mass) 0.6 ng/mL (0.0-3.6) Creatine Kinase MB Relative Index 0.3 % (0-4) Troponin I Quantitative 0.149 ng/mL (0.000-0.055) 0.112 ng/mL (0.000-0.055) TS-Oaz-V-Type Natriuretic Peptide 254 pg/mL (0-449) Total Protein 6.6 g/dL (6.4-8.2) Albumin 3.2 g/dL (3.4-5.0) Albumin/Globulin Ratio 0.9 (1.0-1.7) Glucose (Fingerstick) 134 mg/dL (70-99) Influenza Type A Antigen Positive (NEGATIVE) Influenza Type B Antigen Negative (NEGATIVE) Test 12/25/18 04:00 White Blood Count 6.0 x10^3/uL (4.0-11.0) Red Blood Count 4.42 x10^6/uL (4.30-5.70) Hemoglobin 13.4 g/dL (13.0-17.5) Hematocrit 41.6 % (39.0-53.0) Mean Corpuscular Volume 94 fL (79-100) Mean Corpuscular Hemoglobin 30 pg (25-35) Mean Corpuscular Hemoglobin Concent 32 g/dL (31-37) Red Cell Distribution Width 13.9 % (11.5-14.5) Platelet Count 152 x10^3/uL (140-400) Neutrophils (%) (Auto) 49 % (31-73) Lymphocytes (%) (Auto) 29 % (24-48) Monocytes (%) (Auto) 20 % (0-9) Eosinophils (%) (Auto) 1 % (0-3) Basophils (%) (Auto) 1 % (0-3) Neutrophils # (Auto) 2.9 x10^3uL (1.8-7.7) Lymphocytes # (Auto) 1.7 x10^3/uL (1.0-4.8) Monocytes # (Auto) 1.2 x10^3/uL (0.0-1.1) Eosinophils # (Auto) 0.1 x10^3/uL (0.0-0.7) Basophils # (Auto) 0.0 x10^3/uL (0.0-0.2) Sodium Level 143 mmol/L (136-145) Potassium Level 4.2 mmol/L (3.5-5.1) Chloride Level 108 mmol/L (98-107) Carbon Dioxide Level 26 mmol/L (21-32) Anion Gap 9 (6-14) Blood Urea Nitrogen 22 mg/dL (8-26) Creatinine 1.5 mg/dL (0.7-1.3) Estimated GFR (Cockcroft-Gault) 44.7 Glucose Level 102 mg/dL (70-99) Calcium Level 8.7 mg/dL (8.5-10.1) Troponin I Quantitative 0.113 ng/mL (0.000-0.055) ECHOCARDIOGRAM ECHOCARDIOGRAM <Conclusion> The left ventricular systolic function is normal. The ejection fraction is estimated at 60-65%. There is normal LV segmental wall motion. Transmitral Doppler flow pattern is Grade I-abnormal relaxation pattern. Mild aortic regurgitation. Mild mitral regurgitation. Mild tricuspid regurgitation. There is no evidence of significant pericardial effusion. DATE: 06/18/18 1617 ASSESSMENT/PLAN ASSESSMENT/PLAN 1. Flu A/URI: likely causing her generalized weakness. 2. Mild HERBER: Cr at 1.5 3. Elevated troponin: Peaked at 0.14. EKG SR without acute changes. Likely demand mediated induced by flu, type. No cardiac symptoms. 4. HTN: controlled 5. HLP: on goal 6. HX of CVA Recommendations 1. TTE, continue with BP regimen. hydrate. Check lipids. Tamiflu in place 2. Outpt stress test unless TTE is significantly changed. DON BRASHER APRN Dec 25, 2018 12:40
[2018-12-25 13:06] LABS: CHOLESTEROL/HDL RATIO 3.5
[2018-12-25] MEDS ORDERED: CYAN10005 PO (13:19)
[2018-12-25 16:00] VITALS: BP 165/93
[2018-12-25 19:15] VITALS: BP 170/75
[2018-12-25] MEDS: ATORVASTATIN CALCIUM 40 MG TABLET. PO SCH (20:46)
[2018-12-25] MEDS: CALCIUM CARBONATE 500 MG TAB.CHEW PO PRN (22:15)
[2018-12-25 23:05] VITALS: BP 176/76
[2018-12-26] VITALS (7 sets, daily range): BP systolic 128–198; BP diastolic 60–82
--- NOTE | 2018-12-26 07:18 | CARD ---
MR#: [id number] Date of Study: 12/25/2018 Ordering Physician: DON BRASHER, Referring Physician: BRI WARD Tech: APPROVED REPORT EXAM: Two-dimensional and M-mode echocardiogram with Doppler and color Doppler. INDICATION Dyspnea LEFT VENTRICLE The left ventricle is normal size. There is mild to moderate concentric left ventricular hypertrophy. The left ventricular systolic function is normal. The ejection fraction is 60-65%. There is normal L V segmental wall motion. Transmitral Doppler flow pattern is Grade I-abnormal relaxation pattern. RIGHT VENTRICLE The right ventricle is normal size. The right ventricle is mildly hypertrophied. The right ventricula r systolic function is normal. ATRIA The left atrium is borderline dilated. The right atrium is mildly dilated. The interatrial septum is intact with no evidence for an atrial septal defect or patent foramen ovale as noted on 2-D or Dopple r imaging. AORTIC VALVE The aortic valve is thickened but opens well. Doppler and Color Flow revealed mild aortic regurgitati on. There is no significant aortic valvular stenosis. MITRAL VALVE The mitral valve is normal in structure and function. There is no evidence of mitral valve prolapse. There is no mitral valve stenosis. Doppler and Color-flow revealed trace mitral regurgitation. TRICUSPID VALVE The tricuspid valve is normal in structure and function. Doppler and Color Flow revealed mild tricusp id regurgitation. There is no tricuspid valve stenosis. GREAT VESSELS The aortic root is normal in size. The IVC was not visualized. PERICARDIAL EFFUSION There is no evidence of significant pericardial effusion. Critical Notification Critical Value: No <Conclusion> The left ventricular systolic function is normal. The ejection fraction is 60-65%. There is normal LV segmental wall motion. Transmitral Doppler flow pattern is Grade I-abnormal relaxation pattern. Mild aortic regurgitation. Trace mitral regurgitation. Mild tricuspid regurgitation. There is no evidence of significant pericardial effusion. Signed by : Hugo Luke, Electronically Approved : 12/26/2018 07:18:05
[2018-12-26] MEDS: METOPROLOL SUCC 24HR ER 25 MG TAB.ER.24H. PO SCH (08:34)
[2018-12-26] MEDS: MULTIVITAMIN with MINERAL TABLET. PO SCH (08:34)
[2018-12-26] MEDS: PANTOPRAZOLE 40 MG TABLET.DR. PO SCH (08:34)
[2018-12-26] MEDS: CALCIUM CARBONATE 500 MG TAB.CHEW PO PRN (08:34)
[2018-12-26] MEDS: ASPIRIN ENTERIC COATED 325 MG TABLET.DR. PO SCH (08:34)
[2018-12-26] MEDS: OSELTAMIVIR 30 MG CAPSULE PO SCH ×2 (08:34→20:30)
[2018-12-26] MEDS: CHOLECALCIFEROL (VITAMIN D3) 1,000 UNIT TABLET PO SCH (08:35)
[2018-12-26] MEDS: LOSARTAN POTASSIUM 50 MG TABLET. PO SCH (08:35)
--- NOTE | 2018-12-26 12:22 | NUR ---
SS following up with discharge planning. PT recommended home at discharge. No discharge needs noted at this time. Pt will return to home with spouse when ready. SS will continue to follow for pending discharge needs.
--- NOTE | 2018-12-26 12:43 | PDOC ---
PROGRESS NOTES Chief Complaint Chief Complaint Weakness Cough Influenza + Elevated Troponin H/o CVA HTN HLD GERD History of Present Illness History of Present Illness Pt seen and examined this morning Resting comfortably in bed with NAD Discussed with RN Vitals Vitals Vital Signs Date Time Temp Pulse Resp B/P (MAP) Pulse Ox O2 Delivery O2 Flow Rate FiO2 12/26/18 10:54 98.0 51 20 156/73 (100) 100 Room Air 98.0 Physical Exam General: Alert, Oriented X3, Cooperative Heart: Regular rate (SR), Normal S1, Normal S2, Other (2/6 systolic murmur to LLS border) Lungs: Clear Abdomen: Soft, No tenderness Extremities: No cyanosis, No edema Skin: No breakdown, No significant lesion Review of Systems Review of Systems Pt reports very mild SOB Pt denies CP, dizziness Assessment and Plan Assessmemt and Plan Problems Medical Problems: (1) Elevated troponin Status: Acute (2) Influenza A Status: Acute Assessment Weakness Cough Influenza + Elevated Troponin H/o CVA HTN HLD GERD Plan Tamiflu Echo was normal- elevated trop likely 2/2 flu PT/OT SNU evaluation DVT prophylaxis Frequent labs D/C dispo pending Comment Review of Relevant I have reviewed the following items timoteo (where applicable) has been applied. Labs Laboratory Tests Test 12/24/18 19:15 12/24/18 19:17 12/24/18 19:25 12/25/18 00:40 White Blood Count 7.4 x10^3/uL (4.0-11.0) Red Blood Count 4.61 x10^6/uL (4.30-5.70) Hemoglobin 14.0 g/dL (13.0-17.5) Hematocrit 42.9 % (39.0-53.0) Mean Corpuscular Volume 93 fL (79-100) Mean Corpuscular Hemoglobin 31 pg (25-35) Mean Corpuscular Hemoglobin Concent 33 g/dL (31-37) Red Cell Distribution Width 13.7 % (11.5-14.5) Platelet Count 165 x10^3/uL (140-400) Neutrophils (%) (Auto) 63 % (31-73) Lymphocytes (%) (Auto) 16 % (24-48) Monocytes (%) (Auto) 20 % (0-9) Eosinophils (%) (Auto) 1 % (0-3) Basophils (%) (Auto) 1 % (0-3) Neutrophils # (Auto) 4.6 x10^3uL (1.8-7.7) Lymphocytes # (Auto) 1.2 x10^3/uL (1.0-4.8) Monocytes # (Auto) 1.5 x10^3/uL (0.0-1.1) Eosinophils # (Auto) 0.1 x10^3/uL (0.0-0.7) Basophils # (Auto) 0.1 x10^3/uL (0.0-0.2) Segmented Neutrophils % 54 % (35-66) Band Neutrophils % 14 % (0-9) Lymphocytes % 12 % (24-48) Monocytes % 18 % (0-10) Eosinophils % 2 % (0-5) Platelet Estimate Adequate (ADEQUATE) Prothrombin Time 13.7 SEC (11.7-14.0) Prothromb Time International Ratio 1.1 (0.8-1.1) Sodium Level 140 mmol/L (136-145) Potassium Level 4.2 mmol/L (3.5-5.1) Chloride Level 104 mmol/L (98-107) Carbon Dioxide Level 26 mmol/L (21-32) Anion Gap 10 (6-14) Blood Urea Nitrogen 23 mg/dL (8-26) Creatinine 1.5 mg/dL (0.7-1.3) Estimated GFR (Cockcroft-Gault) 44.7 BUN/Creatinine Ratio 15 (6-20) Glucose Level 134 mg/dL (70-99) Lactic Acid Level 1.0 mmol/L (0.4-2.0) Calcium Level 9.2 mg/dL (8.5-10.1) Magnesium Level 2.1 mg/dL (1.8-2.4) Total Bilirubin 0.4 mg/dL (0.2-1.0) Aspartate Amino Transf (AST/SGOT) 43 U/L (15-37) Alanine Aminotransferase (ALT/SGPT) 47 U/L (16-63) Alkaline Phosphatase 66 U/L (46-116) Creatine Kinase 220 U/L (39-308) Creatine Kinase MB (Mass) 0.6 ng/mL (0.0-3.6) Creatine Kinase MB Relative Index 0.3 % (0-4) Troponin I Quantitative 0.149 ng/mL (0.000-0.055) 0.112 ng/mL (0.000-0.055) YS-Cvw-F-Type Natriuretic Peptide 254 pg/mL (0-449) Total Protein 6.6 g/dL (6.4-8.2) Albumin 3.2 g/dL (3.4-5.0) Albumin/Globulin Ratio 0.9 (1.0-1.7) Glucose (Fingerstick) 134 mg/dL (70-99) Influenza Type A Antigen Positive (NEGATIVE) Influenza Type B Antigen Negative (NEGATIVE) Test 12/25/18 04:00 White Blood Count 6.0 x10^3/uL (4.0-11.0) Red Blood Count 4.42 x10^6/uL (4.30-5.70) Hemoglobin 13.4 g/dL (13.0-17.5) Hematocrit 41.6 % (39.0-53.0) Mean Corpuscular Volume 94 fL (79-100) Mean Corpuscular Hemoglobin 30 pg (25-35) Mean Corpuscular Hemoglobin Concent 32 g/dL (31-37) Red Cell Distribution Width 13.9 % (11.5-14.5) Platelet Count 152 x10^3/uL (140-400) Neutrophils (%) (Auto) 49 % (31-73) Lymphocytes (%) (Auto) 29 % (24-48) Monocytes (%) (Auto) 20 % (0-9) Eosinophils (%) (Auto) 1 % (0-3) Basophils (%) (Auto) 1 % (0-3) Neutrophils # (Auto) 2.9 x10^3uL (1.8-7.7) Lymphocytes # (Auto) 1.7 x10^3/uL (1.0-4.8) Monocytes # (Auto) 1.2 x10^3/uL (0.0-1.1) Eosinophils # (Auto) 0.1 x10^3/uL (0.0-0.7) Basophils # (Auto) 0.0 x10^3/uL (0.0-0.2) Sodium Level 143 mmol/L (136-145) Potassium Level 4.2 mmol/L (3.5-5.1) Chloride Level 108 mmol/L (98-107) Carbon Dioxide Level 26 mmol/L (21-32) Anion Gap 9 (6-14) Blood Urea Nitrogen 22 mg/dL (8-26) Creatinine 1.5 mg/dL (0.7-1.3) Estimated GFR (Cockcroft-Gault) 44.7 Glucose Level 102 mg/dL (70-99) Calcium Level 8.7 mg/dL (8.5-10.1) Troponin I Quantitative 0.113 ng/mL (0.000-0.055) Triglycerides Level 60 mg/dL (0-150) Cholesterol Level 91 mg/dL (0-200) LDL Cholesterol, Calculated 53 mg/dL (0-100) VLDL Cholesterol, Calculated 12 mg/dL (0-40) Non-HDL Cholesterol Calculated 65 mg/dL (0-129) HDL Cholesterol 26 mg/dL (40-60) Cholesterol/HDL Ratio 3.5 Microbiology 12/25/18 Blood Culture - Preliminary, Resulted NO GROWTH AFTER 1 DAY Medications Current Medications Acetaminophen (Tylenol) 1,000 mg 1X ONCE PO Last administered on 12/24/18 19: 30; Start 12/24/18 at 19:30; Stop 12/24/18 at 19:33; Status DC Sodium Chloride 1,000 ml @ 125 mls/hr 1X ONCE IV Last administered on 19:30; Start 12/24/18 at 19:30; Stop 12/25/18 at 03:29; Status DC Oseltamivir Phosphate (Tamiflu) 75 mg 1X ONCE PO Last administered on 20:00; Start 12/24/18 at 20:00; Stop 12/24/18 at 20:01; Status DC Aspirin (Elier Aspirin) 325 mg 1X ONCE PO Last administered on 12/24/18 21:58 ; Start 12/24/18 at 22:00; Stop 12/24/18 at 22:01; Status DC Oseltamivir Phosphate (Tamiflu) 30 mg BID PO Last administered on 12/26/18 08: 34; Start 12/25/18 at 09:00; Stop 12/29/18 at 09:01 Aspirin (Ecotrin) 325 mg DAILYWBKFT PO Last administered on 12/26/18 08:34; Start 12/25/18 at 12:00 Atorvastatin Calcium (Lipitor) 40 mg QHS PO Last administered on 12/25/18 20:46 ; Start 12/25/18 at 21:00 Metoprolol Succinate (Toprol Xl) 25 mg DAILY PO Last administered on 12/26/18 08:34; Start 12/25/18 at 12:00 Vitamin D (Vitamin D3) 2,000 unit DAILY PO Last administered on 12/26/18 08:35 ; Start 12/25/18 at 12:00 Losartan Potassium (Cozaar) 100 mg DAILY PO Last administered on 12/26/18 08:35 ; Start 12/25/18 at 12:00 Multivitamins (Thera M Plus) 1 tab DAILY PO Last administered on 12/26/18 08:34 ; Start 12/25/18 at 12:00 Pantoprazole Sodium (Protonix) 40 mg DAILYAC PO Last administered on 12/26/18 08:34; Start 12/25/18 at 12:00 Calcium Carbonate/ Glycine (Tums) 500 mg PRN AFTMEALHC PRN PO INDIGESTION Last administered on 12/26/18 08:34; Start 12/25/18 at 22:15 Active Scripts Active Atorvastatin Calcium 40 Mg Tablet 40 Mg PO QHS 30 Days Aspirin Ec (Aspirin) 325 Mg Tablet.dr 325 Mg PO DAILYWBKFT 30 Days Reported Vitamin B-12 (Cyanocobalamin (Vitamin B-12)) 1,000 Mcg Tablet 1 Tab PO DAILY Metoprolol Succinate ( Xl ) (Metoprolol Succinate) 25 Mg Tab.er.24h 1 Tab PO DAILY Losartan Potassium 100 Mg Tablet 100 Mg PO DAILY Multivitamins (Multivitamin) 1 Each Tablet 1 Tab PO DAILY Vitamin D (Cholecalciferol (Vitamin D3)) 2,000 Unit Capsule 1 Cap PO DAILY Vitals/I & O Vital Sign - Last 24 Hours 12/25/18 12/25/18 12/25/18 12/25/18 16:00 19:15 20:00 23:05 Temp 98.6 98.1 98.8 98.6 98.1 98.8 Pulse 73 68 52 Resp 18 18 18 B/P (MAP) 165/93 (117) 170/75 (106) 176/76 (109) Pulse Ox 94 95 94 O2 Delivery Room Air Room Air Room Air Room Air 12/26/18 12/26/18 12/26/18 12/26/18 03:20 07:30 07:58 08:34 Temp 98.6 99.5 98.6 99.5 Pulse 63 56 56 Resp 20 20 B/P (MAP) 154/73 (100) 169/73 (105) 169/73 Pulse Ox 94 95 O2 Delivery Room Air Room Air Room Air 12/26/18 12/26/18 08:35 10:54 Temp 98.0 98.0 Pulse 56 51 Resp 20 B/P (MAP) 169/73 156/73 (100) Pulse Ox 100 O2 Delivery Room Air Intake and Output 12/25/18 12/25/18 12/26/18 15:00 23:00 07:00 Intake Total 520 ml Output Total 100 ml Balance -100 ml 520 ml BRI WARD III DO Dec 26, 2018 12:43
[2018-12-26] MEDS: ATORVASTATIN CALCIUM 40 MG TABLET. PO SCH (20:30)
[2018-12-26] MEDS: traZODone 50 MG TABLET. PO PRN (21:11)
[2018-12-27 03:00] VITALS: BP 146/67
[2018-12-27 05:02] LABS: BASO % 0 % (0-3); EOS % 0 % (0-3); HEMATOCRIT 42.6 % (39.0-53.0); HEMOGLOBIN 14.1 g/dL (13.0-17.5); LYMPH # 1.3 x10^3/uL (1.0-4.8); LYMPH % 13 % (24-48); MEAN CORPUSCULAR HEMOGLOBIN 30 pg (25-35); MEAN CORPUSCULAR HGB CONC 33 g/dL (31-37); MEAN CORPUSCULAR VOLUME 91 fL (79-100); MONO # 1.3 x10^3/uL (0.0-1.1); MONO % 13 % (0-9); NEUT # 7.6 x10^3uL (1.8-7.7); NEUT % 75 % (31-73); PLATELET COUNT 154 x10^3/uL (140-400); RED BLOOD COUNT 4.66 x10^6/uL (4.30-5.70); RED CELL DISTRIBUTION WIDTH 13.3 % (11.5-14.5); WHITE BLOOD COUNT 10.2 x10^3/uL (4.0-11.0)
[2018-12-27 05:41] LABS: ALBUMIN 2.7 g/dL (3.4-5.0); ALBUMIN/GLOBULIN RATIO 0.8 (1.0-1.7); CALCIUM 8.6 mg/dL (8.5-10.1); CREATININE 1.2 mg/dL (0.7-1.3); GFR 57.8; TOTAL BILIRUBIN 0.8 mg/dL (0.2-1.0); TOTAL PROTEIN 6.1 g/dL (6.4-8.2)
[2018-12-27 07:00] VITALS: BP 135/72
[2018-12-27] MEDS: MULTIVITAMIN with MINERAL TABLET. PO SCH (09:54)
[2018-12-27] MEDS: ASPIRIN ENTERIC COATED 325 MG TABLET.DR. PO SCH (09:54)
[2018-12-27] MEDS: CHOLECALCIFEROL (VITAMIN D3) 1,000 UNIT TABLET PO SCH (09:54)
[2018-12-27] MEDS: PANTOPRAZOLE 40 MG TABLET.DR. PO SCH (09:54)
[2018-12-27] MEDS: OSELTAMIVIR 30 MG CAPSULE PO SCH ×2 (09:55→21:21)
[2018-12-27] MEDS: METOPROLOL SUCC 24HR ER 25 MG TAB.ER.24H. PO SCH (09:56)
[2018-12-27] MEDS: LOSARTAN POTASSIUM 50 MG TABLET. PO SCH (09:57)
--- NOTE | 2018-12-27 10:10 | PDOC ---
PROGRESS NOTES Chief Complaint Chief Complaint Weakness Cough Influenza + Elevated Troponin H/o CVA HTN HLD GERD History of Present Illness History of Present Illness Mr Malik was seen and examined this morning His case was discussed with RN Pt with NAD and resting comfortably in chair beside bed, eating breakfast Spoke to pt about potential discharge home or to SNU, based on PT/OT and SS recs Stated he was feeling better today Vitals Vitals Vital Signs Date Time Temp Pulse Resp B/P (MAP) Pulse Ox O2 Delivery O2 Flow Rate FiO2 12/27/18 09:57 87 135/72 12/27/18 07:00 99.0 18 90 Room Air 99.0 12/26/18 20:00 2.0 Physical Exam General: Alert, Oriented X3, Cooperative Heart: Regular rate (SR), Normal S1, Normal S2, Other (2/6 systolic murmur to LLS border) Lungs: Clear Abdomen: Soft, No tenderness Extremities: No cyanosis, No edema Skin: No breakdown, No significant lesion Labs LABS Laboratory Tests Test 12/27/18 04:05 White Blood Count 10.2 x10^3/uL (4.0-11.0) Red Blood Count 4.66 x10^6/uL (4.30-5.70) Hemoglobin 14.1 g/dL (13.0-17.5) Hematocrit 42.6 % (39.0-53.0) Mean Corpuscular Volume 91 fL (79-100) Mean Corpuscular Hemoglobin 30 pg (25-35) Mean Corpuscular Hemoglobin Concent 33 g/dL (31-37) Red Cell Distribution Width 13.3 % (11.5-14.5) Platelet Count 154 x10^3/uL (140-400) Neutrophils (%) (Auto) 75 % (31-73) Lymphocytes (%) (Auto) 13 % (24-48) Monocytes (%) (Auto) 13 % (0-9) Eosinophils (%) (Auto) 0 % (0-3) Basophils (%) (Auto) 0 % (0-3) Neutrophils # (Auto) 7.6 x10^3uL (1.8-7.7) Lymphocytes # (Auto) 1.3 x10^3/uL (1.0-4.8) Monocytes # (Auto) 1.3 x10^3/uL (0.0-1.1) Eosinophils # (Auto) 0.0 x10^3/uL (0.0-0.7) Basophils # (Auto) 0.0 x10^3/uL (0.0-0.2) Sodium Level 137 mmol/L (136-145) Potassium Level 4.0 mmol/L (3.5-5.1) Chloride Level 103 mmol/L (98-107) Carbon Dioxide Level 25 mmol/L (21-32) Anion Gap 9 (6-14) Blood Urea Nitrogen 20 mg/dL (8-26) Creatinine 1.2 mg/dL (0.7-1.3) Estimated GFR (Cockcroft-Gault) 57.8 BUN/Creatinine Ratio 17 (6-20) Glucose Level 125 mg/dL (70-99) Calcium Level 8.6 mg/dL (8.5-10.1) Total Bilirubin 0.8 mg/dL (0.2-1.0) Aspartate Amino Transf (AST/SGOT) 46 U/L (15-37) Alanine Aminotransferase (ALT/SGPT) 44 U/L (16-63) Alkaline Phosphatase 53 U/L (46-116) Total Protein 6.1 g/dL (6.4-8.2) Albumin 2.7 g/dL (3.4-5.0) Albumin/Globulin Ratio 0.8 (1.0-1.7) Review of Systems Review of Systems Pt reports mild weakness Pt denies CP, SOB, n/v Assessment and Plan Assessmemt and Plan Problems Medical Problems: (1) Elevated troponin Status: Acute (2) Influenza A Status: Acute Assessment Tamiflu Echo was grossly normal- elevated trop likely 2/2 flu PT/OT PT recommends D/C home per SS note on 12/26 DVT prophylaxis Frequent labs D/C dispo pending- hope to D/C home today if possible Comment Review of Relevant I have reviewed the following items timoteo (where applicable) has been applied. Labs Laboratory Tests Test 12/27/18 04:05 White Blood Count 10.2 x10^3/uL (4.0-11.0) Red Blood Count 4.66 x10^6/uL (4.30-5.70) Hemoglobin 14.1 g/dL (13.0-17.5) Hematocrit 42.6 % (39.0-53.0) Mean Corpuscular Volume 91 fL (79-100) Mean Corpuscular Hemoglobin 30 pg (25-35) Mean Corpuscular Hemoglobin Concent 33 g/dL (31-37) Red Cell Distribution Width 13.3 % (11.5-14.5) Platelet Count 154 x10^3/uL (140-400) Neutrophils (%) (Auto) 75 % (31-73) Lymphocytes (%) (Auto) 13 % (24-48) Monocytes (%) (Auto) 13 % (0-9) Eosinophils (%) (Auto) 0 % (0-3) Basophils (%) (Auto) 0 % (0-3) Neutrophils # (Auto) 7.6 x10^3uL (1.8-7.7) Lymphocytes # (Auto) 1.3 x10^3/uL (1.0-4.8) Monocytes # (Auto) 1.3 x10^3/uL (0.0-1.1) Eosinophils # (Auto) 0.0 x10^3/uL (0.0-0.7) Basophils # (Auto) 0.0 x10^3/uL (0.0-0.2) Sodium Level 137 mmol/L (136-145) Potassium Level 4.0 mmol/L (3.5-5.1) Chloride Level 103 mmol/L (98-107) Carbon Dioxide Level 25 mmol/L (21-32) Anion Gap 9 (6-14) Blood Urea Nitrogen 20 mg/dL (8-26) Creatinine 1.2 mg/dL (0.7-1.3) Estimated GFR (Cockcroft-Gault) 57.8 BUN/Creatinine Ratio 17 (6-20) Glucose Level 125 mg/dL (70-99) Calcium Level 8.6 mg/dL (8.5-10.1) Total Bilirubin 0.8 mg/dL (0.2-1.0) Aspartate Amino Transf (AST/SGOT) 46 U/L (15-37) Alanine Aminotransferase (ALT/SGPT) 44 U/L (16-63) Alkaline Phosphatase 53 U/L (46-116) Total Protein 6.1 g/dL (6.4-8.2) Albumin 2.7 g/dL (3.4-5.0) Albumin/Globulin Ratio 0.8 (1.0-1.7) Laboratory Tests Test 12/27/18 04:05 White Blood Count 10.2 x10^3/uL (4.0-11.0) Red Blood Count 4.66 x10^6/uL (4.30-5.70) Hemoglobin 14.1 g/dL (13.0-17.5) Hematocrit 42.6 % (39.0-53.0) Mean Corpuscular Volume 91 fL (79-100) Mean Corpuscular Hemoglobin 30 pg (25-35) Mean Corpuscular Hemoglobin Concent 33 g/dL (31-37) Red Cell Distribution Width 13.3 % (11.5-14.5) Platelet Count 154 x10^3/uL (140-400) Neutrophils (%) (Auto) 75 % (31-73) Lymphocytes (%) (Auto) 13 % (24-48) Monocytes (%) (Auto) 13 % (0-9) Eosinophils (%) (Auto) 0 % (0-3) Basophils (%) (Auto) 0 % (0-3) Neutrophils # (Auto) 7.6 x10^3uL (1.8-7.7) Lymphocytes # (Auto) 1.3 x10^3/uL (1.0-4.8) Monocytes # (Auto) 1.3 x10^3/uL (0.0-1.1) Eosinophils # (Auto) 0.0 x10^3/uL (0.0-0.7) Basophils # (Auto) 0.0 x10^3/uL (0.0-0.2) Sodium Level 137 mmol/L (136-145) Potassium Level 4.0 mmol/L (3.5-5.1) Chloride Level 103 mmol/L (98-107) Carbon Dioxide Level 25 mmol/L (21-32) Anion Gap 9 (6-14) Blood Urea Nitrogen 20 mg/dL (8-26) Creatinine 1.2 mg/dL (0.7-1.3) Estimated GFR (Cockcroft-Gault) 57.8 BUN/Creatinine Ratio 17 (6-20) Glucose Level 125 mg/dL (70-99) Calcium Level 8.6 mg/dL (8.5-10.1) Total Bilirubin 0.8 mg/dL (0.2-1.0) Aspartate Amino Transf (AST/SGOT) 46 U/L (15-37) Alanine Aminotransferase (ALT/SGPT) 44 U/L (16-63) Alkaline Phosphatase 53 U/L (46-116) Total Protein 6.1 g/dL (6.4-8.2) Albumin 2.7 g/dL (3.4-5.0) Albumin/Globulin Ratio 0.8 (1.0-1.7) Microbiology 12/25/18 Blood Culture - Preliminary, Resulted NO GROWTH AFTER 2 DAYS Medications Current Medications Acetaminophen (Tylenol) 1,000 mg 1X ONCE PO Last administered on 12/24/18 19: 30; Start 12/24/18 at 19:30; Stop 12/24/18 at 19:33; Status DC Sodium Chloride 1,000 ml @ 125 mls/hr 1X ONCE IV Last administered on 19:30; Start 12/24/18 at 19:30; Stop 12/25/18 at 03:29; Status DC Oseltamivir Phosphate (Tamiflu) 75 mg 1X ONCE PO Last administered on 20:00; Start 12/24/18 at 20:00; Stop 12/24/18 at 20:01; Status DC Aspirin (Elier Aspirin) 325 mg 1X ONCE PO Last administered on 12/24/18 21:58 ; Start 12/24/18 at 22:00; Stop 12/24/18 at 22:01; Status DC Oseltamivir Phosphate (Tamiflu) 30 mg BID PO Last administered on 12/27/18 09: 55; Start 12/25/18 at 09:00; Stop 12/29/18 at 09:01 Aspirin (Ecotrin) 325 mg DAILYWBKFT PO Last administered on 12/27/18 09:54; Start 12/25/18 at 12:00 Atorvastatin Calcium (Lipitor) 40 mg QHS PO Last administered on 12/26/18 20:30 ; Start 12/25/18 at 21:00 Metoprolol Succinate (Toprol Xl) 25 mg DAILY PO Last administered on 12/27/18 09:56; Start 12/25/18 at 12:00 Vitamin D (Vitamin D3) 2,000 unit DAILY PO Last administered on 12/27/18 09:54 ; Start 12/25/18 at 12:00 Losartan Potassium (Cozaar) 100 mg DAILY PO Last administered on 12/27/18 09:57 ; Start 12/25/18 at 12:00 Multivitamins (Thera M Plus) 1 tab DAILY PO Last administered on 12/27/18 09:54 ; Start 12/25/18 at 12:00 Pantoprazole Sodium (Protonix) 40 mg DAILYAC PO Last administered on 12/27/18 09:54; Start 12/25/18 at 12:00 Calcium Carbonate/ Glycine (Tums) 500 mg PRN AFTMEALHC PRN PO INDIGESTION Last administered on 12/26/18 08:34; Start 12/25/18 at 22:15 Trazodone HCl (Desyrel) 50 mg PRN QHS PRN PO INSOMNIA Last administered on 21:11; Start 12/26/18 at 21:00 Active Scripts Active Atorvastatin Calcium 40 Mg Tablet 40 Mg PO QHS 30 Days Aspirin Ec (Aspirin) 325 Mg Tablet.dr 325 Mg PO DAILYWBKFT 30 Days Reported Vitamin B-12 (Cyanocobalamin (Vitamin B-12)) 1,000 Mcg Tablet 1 Tab PO DAILY Metoprolol Succinate ( Xl ) (Metoprolol Succinate) 25 Mg Tab.er.24h 1 Tab PO DAILY Losartan Potassium 100 Mg Tablet 100 Mg PO DAILY Multivitamins (Multivitamin) 1 Each Tablet 1 Tab PO DAILY Vitamin D (Cholecalciferol (Vitamin D3)) 2,000 Unit Capsule 1 Cap PO DAILY Vitals/I & O Vital Sign - Last 24 Hours 12/26/18 12/26/18 12/26/18 12/26/18 10:54 14:47 19:00 20:00 Temp 98.0 98.6 97.8 98.0 98.6 97.8 Pulse 51 56 70 Resp 20 20 B/P (MAP) 156/73 (100) 173/81 (111) 180/80 (113) Pulse Ox 100 95 96 O2 Delivery Room Air Room Air Room Air Room Air O2 Flow Rate 2.0 12/26/18 12/26/18 12/27/18 12/27/18 22:12 23:43 03:00 07:00 Temp 98.0 98.6 99.0 98.0 98.6 99.0 Pulse 100 84 84 73 Resp 18 17 18 B/P (MAP) 198/82 (120) 128/60 (82) 146/67 (93) 135/72 (93) Pulse Ox 96 97 90 O2 Delivery Room Air Room Air Room Air 12/27/18 12/27/18 09:56 09:57 Pulse 87 87 B/P (MAP) 135/72 135/72 Intake and Output 12/26/18 12/26/18 12/27/18 14:59 22:59 06:59 Intake Total 0 ml 900 ml 200 ml Balance 0 ml 900 ml 200 ml BRI WARD III DO Dec 27, 2018 10:10
--- NOTE | 2018-12-27 10:30 | DISCH ---
DISCHARGE WITH HOME HEALTH DISCHARGE INFORMATION: Final Diagnosis: Problems Medical Problems: (1) Elevated troponin Status: Acute (2) Influenza A Status: Acute Condition on Discharge: Stable CODE STATUS: Code Status: Full HOME HEALTH: Face to Face: I certify this patient is under my care and that I, or a nurse practitioner or physician's ice cream freezer assistant working with me, had a face to face encounter that meets the physician face to face encounter requirements with this patient on []. Medical Complications: Other (flu) Physical Therapy For: Evalulation/Treatment Occupational Therapy For: Evaluation/Treatment Home Health Aide For: Self-care FURNACE COMBINATION ANALYST For: Community Resources POST DISCHARGE ORDERS: Activity Instructions for Disc: Activity as tolerated Weight Bearing Status after Di: As tolerated CHECKS AFTER DISCHARGE: Checks after discharge: Check blood press - daily, Check your Temp as needed TREATMENT/EQUIPMENT ORDERS: Adaptive Equipment Issued: None CERTIFICATION STATEMENT: Certification Statement: Certification Statement: Based on the above finding, I certify that this patient is confined to the home and needs intermittent custodial care, physical therapy and/or speech therapy, or continues to need occupational therapy.~ This patient is under my care, and I have initiated the establishment of the plan of care.~ This patient will be followed by myself or a community physician who will periodically review the plan of care. Home Meds Active Scripts Atorvastatin Calcium (ATORVASTATIN CALCIUM) 40 Mg Tablet, 40 MG PO QHS for 30 Days, #30 TAB Prov:RICHARD JUÁREZ MD 06/27/17 Aspirin (ASPIRIN EC) 325 Mg Tablet.dr, 325 MG PO DAILYWBKFT for 30 Days, #30 TAB.SR Prov:RICHARD JUÁREZ MD 06/27/17 Reported Medications Cyanocobalamin (Vitamin B-12) (VITAMIN B-12) 1,000 Mcg Tablet, 1 TAB PO DAILY for Anemia, #30 TAB 2 Refills 12/25/18 Metoprolol Succinate (METOPROLOL SUCCINATE ( XL )) 25 Mg Tab.er.24h, 1 TAB PO DAILY for HTN, #30 TAB 5 Refills 12/25/18 Losartan Potassium (LOSARTAN POTASSIUM) 100 Mg Tablet, 100 MG PO DAILY for HYPERTENSION, TAB 12/25/18 Multivitamin (MULTIVITAMINS) 1 Each Tablet, 1 TAB PO DAILY, #90 TAB 3 Refills 08/12/15 Cholecalciferol (Vitamin D3) (VITAMIN D) 2,000 Unit Capsule, 1 CAP PO DAILY, # 30 CAP 3 Refills 08/12/15 BRI WARD III DO Dec 27, 2018 10:30
[2018-12-27 11:00] VITALS: BP 116/56
--- NOTE | 2018-12-27 12:16 | NUR ---
SS following up with discharge planning. Discharge orders received for home healthcare. Pt met with food service representative, Christie, from [facility] in room and agreed to Home Healthcare with [facility], ; fax [phone]. Christie phoned and faxed discharge orders and referral to [facility]. Pt's RN notified.
[2018-12-27 15:00] VITALS: BP 117/55
[2018-12-27] MEDS ORDERED: OSEL30CA PO (15:17)
--- NOTE | 2018-12-27 16:17 | DS ---
DATE OF DISCHARGE: 12/27/2018 ADMISSION DIAGNOSES: Flu and elevated troponin. DISCHARGE DIAGNOSIS: Resolving influenza. CONSULTS: Cardiology. PROCEDURES: None. HOSPITAL COURSE: The patient is a pleasant middle-aged male who presented with flu and a slight bump in his troponin. He was quite weak. He was admitted. We gave him IV fluids and consulted Cardiology. We also gave him Tamiflu. Over the past few days, he has returned to his baseline. We plan to discharge with home health. DISPOSITION: Home with home health. ACTIVITY: As tolerated. DIET: Low sodium. MEDICATIONS: Please see the MRAD. TOTAL TIME: 33 minutes. BRI WARD DO DR: VANESSA/genaro JOB#: [id number] / [id number]
--- NOTE | 2018-12-27 16:17 | RAD ---
PQRS Compliance statement: One or more of the following individualized dose reduction techniques were utilized for this examination: 1. Automated exposure control. 2. Adjustment of the mA and/or kV according to patient size. 3. Use of iterative reconstruction technique. Indication:FALL, PT DENIES HITTING HEAD, PRIOR SENT TECHNIQUE: CT head without IV contrast COMPARISON:12/24/2018 FINDINGS: No pathologic extra-axial or intra-axial fluid collection. The ventricles and basal cisterns are within normal limits. No acute intracranial bleed. Periventricular and deep white matter low-attenuation is seen. Scattered stable multifocal areas of low-attenuation seen in the bilateral centrum semiovale. No focal loss of mojica-white differentiation. No large scalp hematoma. Orbits are within normal limits. No acute calvarial fracture. Visualized paranasal sinuses and mastoid air cells are clear. IMPRESSION: 1. No acute intracranial bleed or calvarial fracture. 2. Multifocal stable focus of low attenuation in the bilateral centrum semiovale likely lacunar infarcts or white matter changes likely secondary to chronic microvascular ischemic disease. If concern for acute ischemic stroke is high, please consider MRI brain. Electronically signed by: Sharath Earl DO (12/27/2018 4:14 PM) [id number]
[2018-12-27 19:23] VITALS: BP 114/44
--- NOTE | 2018-12-27 20:27 | NUR ---
Patient found on bathroom floor by staff member and stated that he slid to the florr. Pt denied hitting his head, any pain or discomfort. Patioent was on bed/chair alarm and was in room when pot fell. pt moved to a room closer to the nurses desk, Dr. Callejas notified, stat head ct ordered, vitals stable.
[2018-12-27] MEDS: ATORVASTATIN CALCIUM 40 MG TABLET. PO SCH (21:20)
[2018-12-27] MEDS: traZODone 50 MG TABLET. PO PRN (21:21)
[2018-12-27 22:28] VITALS: BP 121/45
[2018-12-28 02:44] VITALS: BP 102/42
[2018-12-28 03:38] LABS: BASO % 0 % (0-3); EOS % 0 % (0-3); HEMATOCRIT 39.1 % (39.0-53.0); HEMOGLOBIN 12.8 g/dL (13.0-17.5); LYMPH # 1.6 x10^3/uL (1.0-4.8); LYMPH % 10 % (24-48); MEAN CORPUSCULAR HEMOGLOBIN 30 pg (25-35); MEAN CORPUSCULAR HGB CONC 33 g/dL (31-37); MEAN CORPUSCULAR VOLUME 92 fL (79-100); MONO # 1.7 x10^3/uL (0.0-1.1); MONO % 10 % (0-9); NEUT # 13.2 x10^3uL (1.8-7.7); NEUT % 80 % (31-73); PLATELET COUNT 130 x10^3/uL (140-400); RED BLOOD COUNT 4.28 x10^6/uL (4.30-5.70); RED CELL DISTRIBUTION WIDTH 13.2 % (11.5-14.5); WHITE BLOOD COUNT 16.5 x10^3/uL (4.0-11.0)
[2018-12-28 04:14] LABS: ALBUMIN 2.4 g/dL (3.4-5.0); ALBUMIN/GLOBULIN RATIO 0.7 (1.0-1.7); CALCIUM 8.4 mg/dL (8.5-10.1); CREATININE 2.1 mg/dL (0.7-1.3); GFR 30.3; TOTAL PROTEIN 5.8 g/dL (6.4-8.2)
[2018-12-28 07:00] VITALS: BP 113/52
[2018-12-28] MEDS: PANTOPRAZOLE 40 MG TABLET.DR. PO SCH (09:08)
[2018-12-28] MEDS: OSELTAMIVIR 30 MG CAPSULE PO SCH ×2 (09:08→20:16)
[2018-12-28] MEDS: ASPIRIN ENTERIC COATED 325 MG TABLET.DR. PO SCH (09:08)
[2018-12-28] MEDS: MULTIVITAMIN with MINERAL TABLET. PO SCH (09:08)
[2018-12-28] MEDS: CHOLECALCIFEROL (VITAMIN D3) 1,000 UNIT TABLET PO SCH (09:09)
[2018-12-28] MEDS: METOPROLOL SUCC 24HR ER 25 MG TAB.ER.24H. PO SCH (09:09)
[2018-12-28] MEDS: LOSARTAN POTASSIUM 50 MG TABLET. PO SCH (09:18)
[2018-12-28 11:00] VITALS: BP 99/50
--- NOTE | 2018-12-28 11:37 | PDOC ---
PROGRESS NOTES Chief Complaint Chief Complaint Weakness Cough Influenza + Elevated Troponin H/o CVA HTN HLD GERD History of Present Illness History of Present Illness Mr Malik was seen and examined this morning Apparently he had a fall yesterday when going to the bathroom, which postponed his discharge to SNU His case was discussed with RN Pt with NAD, resting comfortably in bed Pt does have a white count of 16.5, and Cr is 2.1, both elevated from yesterday Vitals Vitals Vital Signs Date Time Temp Pulse Resp B/P (MAP) Pulse Ox O2 Delivery O2 Flow Rate FiO2 12/28/18 09:18 95 113/52 12/28/18 07:00 97.9 18 18 Room Air 97.9 12/27/18 20:00 2.0 Physical Exam General: Alert, Oriented X3, Cooperative Heart: Regular rate (SR), Normal S1, Normal S2, Other (2/6 systolic murmur to LLS border) Lungs: Clear Abdomen: Soft, No tenderness Extremities: No cyanosis, No edema Skin: No breakdown, No significant lesion Labs LABS Laboratory Tests Test 12/28/18 02:30 White Blood Count 16.5 x10^3/uL (4.0-11.0) Red Blood Count 4.28 x10^6/uL (4.30-5.70) Hemoglobin 12.8 g/dL (13.0-17.5) Hematocrit 39.1 % (39.0-53.0) Mean Corpuscular Volume 92 fL (79-100) Mean Corpuscular Hemoglobin 30 pg (25-35) Mean Corpuscular Hemoglobin Concent 33 g/dL (31-37) Red Cell Distribution Width 13.2 % (11.5-14.5) Platelet Count 130 x10^3/uL (140-400) Neutrophils (%) (Auto) 80 % (31-73) Lymphocytes (%) (Auto) 10 % (24-48) Monocytes (%) (Auto) 10 % (0-9) Eosinophils (%) (Auto) 0 % (0-3) Basophils (%) (Auto) 0 % (0-3) Neutrophils # (Auto) 13.2 x10^3uL (1.8-7.7) Lymphocytes # (Auto) 1.6 x10^3/uL (1.0-4.8) Monocytes # (Auto) 1.7 x10^3/uL (0.0-1.1) Eosinophils # (Auto) 0.0 x10^3/uL (0.0-0.7) Basophils # (Auto) 0.0 x10^3/uL (0.0-0.2) Sodium Level 133 mmol/L (136-145) Potassium Level 4.0 mmol/L (3.5-5.1) Chloride Level 99 mmol/L (98-107) Carbon Dioxide Level 23 mmol/L (21-32) Anion Gap 11 (6-14) Blood Urea Nitrogen 35 mg/dL (8-26) Creatinine 2.1 mg/dL (0.7-1.3) Estimated GFR (Cockcroft-Gault) 30.3 BUN/Creatinine Ratio 17 (6-20) Glucose Level 114 mg/dL (70-99) Calcium Level 8.4 mg/dL (8.5-10.1) Total Bilirubin 1.0 mg/dL (0.2-1.0) Aspartate Amino Transf (AST/SGOT) 38 U/L (15-37) Alanine Aminotransferase (ALT/SGPT) 37 U/L (16-63) Alkaline Phosphatase 50 U/L (46-116) Total Protein 5.8 g/dL (6.4-8.2) Albumin 2.4 g/dL (3.4-5.0) Albumin/Globulin Ratio 0.7 (1.0-1.7) Review of Systems Review of Systems Pt reports generalized weakness Pt denies CP, SOB, n/v Assessment and Plan Assessmemt and Plan Problems Medical Problems: (1) Elevated troponin Status: Acute (2) Influenza A Status: Acute Assessment Fall Weakness Cough Influenza + Elevated Troponin H/o CVA HTN HLD GERD Plan WBC 16.5- Start Augmentin 875mg PO BID Cr 2.1- Consult nephrology Will initiate IVF- NS 75mL/hr Tamiflu Echo was grossly normal- elevated trop likely 2/2 flu PT/OT DVT prophylaxis Frequent labs D/C dispo pending Comment Review of Relevant I have reviewed the following items timoteo (where applicable) has been applied. Labs Laboratory Tests Test 12/27/18 04:05 12/28/18 02:30 White Blood Count 10.2 x10^3/uL (4.0-11.0) 16.5 x10^3/uL (4.0-11.0) Red Blood Count 4.66 x10^6/uL (4.30-5.70) 4.28 x10^6/uL (4.30-5.70) Hemoglobin 14.1 g/dL (13.0-17.5) 12.8 g/dL (13.0-17.5) Hematocrit 42.6 % (39.0-53.0) 39.1 % (39.0-53.0) Mean Corpuscular Volume 91 fL (79-100) 92 fL (79-100) Mean Corpuscular Hemoglobin 30 pg (25-35) 30 pg (25-35) Mean Corpuscular Hemoglobin Concent 33 g/dL (31-37) 33 g/dL (31-37) Red Cell Distribution Width 13.3 % (11.5-14.5) 13.2 % (11.5-14.5) Platelet Count 154 x10^3/uL (140-400) 130 x10^3/uL (140-400) Neutrophils (%) (Auto) 75 % (31-73) 80 % (31-73) Lymphocytes (%) (Auto) 13 % (24-48) 10 % (24-48) Monocytes (%) (Auto) 13 % (0-9) 10 % (0-9) Eosinophils (%) (Auto) 0 % (0-3) 0 % (0-3) Basophils (%) (Auto) 0 % (0-3) 0 % (0-3) Neutrophils # (Auto) 7.6 x10^3uL (1.8-7.7) 13.2 x10^3uL (1.8-7.7) Lymphocytes # (Auto) 1.3 x10^3/uL (1.0-4.8) 1.6 x10^3/uL (1.0-4.8) Monocytes # (Auto) 1.3 x10^3/uL (0.0-1.1) 1.7 x10^3/uL (0.0-1.1) Eosinophils # (Auto) 0.0 x10^3/uL (0.0-0.7) 0.0 x10^3/uL (0.0-0.7) Basophils # (Auto) 0.0 x10^3/uL (0.0-0.2) 0.0 x10^3/uL (0.0-0.2) Sodium Level 137 mmol/L (136-145) 133 mmol/L (136-145) Potassium Level 4.0 mmol/L (3.5-5.1) 4.0 mmol/L (3.5-5.1) Chloride Level 103 mmol/L (98-107) 99 mmol/L (98-107) Carbon Dioxide Level 25 mmol/L (21-32) 23 mmol/L (21-32) Anion Gap 9 (6-14) 11 (6-14) Blood Urea Nitrogen 20 mg/dL (8-26) 35 mg/dL (8-26) Creatinine 1.2 mg/dL (0.7-1.3) 2.1 mg/dL (0.7-1.3) Estimated GFR (Cockcroft-Gault) 57.8 30.3 BUN/Creatinine Ratio 17 (6-20) 17 (6-20) Glucose Level 125 mg/dL (70-99) 114 mg/dL (70-99) Calcium Level 8.6 mg/dL (8.5-10.1) 8.4 mg/dL (8.5-10.1) Total Bilirubin 0.8 mg/dL (0.2-1.0) 1.0 mg/dL (0.2-1.0) Aspartate Amino Transf (AST/SGOT) 46 U/L (15-37) 38 U/L (15-37) Alanine Aminotransferase (ALT/SGPT) 44 U/L (16-63) 37 U/L (16-63) Alkaline Phosphatase 53 U/L (46-116) 50 U/L (46-116) Total Protein 6.1 g/dL (6.4-8.2) 5.8 g/dL (6.4-8.2) Albumin 2.7 g/dL (3.4-5.0) 2.4 g/dL (3.4-5.0) Albumin/Globulin Ratio 0.8 (1.0-1.7) 0.7 (1.0-1.7) Laboratory Tests Test 3/8/19 02:30 White Blood Count 16.5 x10^3/uL (4.0-11.0) Red Blood Count 4.28 x10^6/uL (4.30-5.70) Hemoglobin 12.8 g/dL (13.0-17.5) Hematocrit 39.1 % (39.0-53.0) Mean Corpuscular Volume 92 fL (79-100) Mean Corpuscular Hemoglobin 30 pg (25-35) Mean Corpuscular Hemoglobin Concent 33 g/dL (31-37) Red Cell Distribution Width 13.2 % (11.5-14.5) Platelet Count 130 x10^3/uL (140-400) Neutrophils (%) (Auto) 80 % (31-73) Lymphocytes (%) (Auto) 10 % (24-48) Monocytes (%) (Auto) 10 % (0-9) Eosinophils (%) (Auto) 0 % (0-3) Basophils (%) (Auto) 0 % (0-3) Neutrophils # (Auto) 13.2 x10^3uL (1.8-7.7) Lymphocytes # (Auto) 1.6 x10^3/uL (1.0-4.8) Monocytes # (Auto) 1.7 x10^3/uL (0.0-1.1) Eosinophils # (Auto) 0.0 x10^3/uL (0.0-0.7) Basophils # (Auto) 0.0 x10^3/uL (0.0-0.2) Sodium Level 133 mmol/L (136-145) Potassium Level 4.0 mmol/L (3.5-5.1) Chloride Level 99 mmol/L (98-107) Carbon Dioxide Level 23 mmol/L (21-32) Anion Gap 11 (6-14) Blood Urea Nitrogen 35 mg/dL (8-26) Creatinine 2.1 mg/dL (0.7-1.3) Estimated GFR (Cockcroft-Gault) 30.3 BUN/Creatinine Ratio 17 (6-20) Glucose Level 114 mg/dL (70-99) Calcium Level 8.4 mg/dL (8.5-10.1) Total Bilirubin 1.0 mg/dL (0.2-1.0) Aspartate Amino Transf (AST/SGOT) 38 U/L (15-37) Alanine Aminotransferase (ALT/SGPT) 37 U/L (16-63) Alkaline Phosphatase 50 U/L (46-116) Total Protein 5.8 g/dL (6.4-8.2) Albumin 2.4 g/dL (3.4-5.0) Albumin/Globulin Ratio 0.7 (1.0-1.7) Microbiology 12/25/18 Blood Culture - Preliminary, Resulted NO GROWTH AFTER 3 DAYS Medications Current Medications Acetaminophen (Tylenol) 1,000 mg 1X ONCE PO Last administered on 12/24/18 19: 30; Start 12/24/18 at 19:30; Stop 12/24/18 at 19:33; Status DC Sodium Chloride 1,000 ml @ 125 mls/hr 1X ONCE IV Last administered on 19:30; Start 12/24/18 at 19:30; Stop 12/25/18 at 03:29; Status DC Oseltamivir Phosphate (Tamiflu) 75 mg 1X ONCE PO Last administered on 20:00; Start 12/24/18 at 20:00; Stop 12/24/18 at 20:01; Status DC Aspirin (Elier Aspirin) 325 mg 1X ONCE PO Last administered on 12/24/18 21:58 ; Start 12/24/18 at 22:00; Stop 12/24/18 at 22:01; Status DC Oseltamivir Phosphate (Tamiflu) 30 mg BID PO Last administered on 12/28/18 09: 08; Start 12/25/18 at 09:00; Stop 12/29/18 at 09:01 Aspirin (Ecotrin) 325 mg DAILYWBKFT PO Last administered on 12/28/18 09:08; Start 12/25/18 at 12:00 Atorvastatin Calcium (Lipitor) 40 mg QHS PO Last administered on 12/27/18 21:20 ; Start 12/25/18 at 21:00 Metoprolol Succinate (Toprol Xl) 25 mg DAILY PO Last administered on 12/28/18 09:09; Start 12/25/18 at 12:00 Vitamin D (Vitamin D3) 2,000 unit DAILY PO Last administered on 12/28/18 09:09 ; Start 12/25/18 at 12:00 Losartan Potassium (Cozaar) 100 mg DAILY PO Last administered on 12/28/18 09:18 ; Start 12/25/18 at 12:00 Multivitamins (Thera M Plus) 1 tab DAILY PO Last administered on 12/28/18 09:08 ; Start 12/25/18 at 12:00 Pantoprazole Sodium (Protonix) 40 mg DAILYAC PO Last administered on 12/28/18 09:08; Start 12/25/18 at 12:00 Calcium Carbonate/ Glycine (Tums) 500 mg PRN AFTMEALHC PRN PO INDIGESTION Last administered on 12/26/18 08:34; Start 12/25/18 at 22:15 Trazodone HCl (Desyrel) 50 mg PRN QHS PRN PO INSOMNIA Last administered on 21:21; Start 12/26/18 at 21:00 Active Scripts Active Atorvastatin Calcium 40 Mg Tablet 40 Mg PO QHS 30 Days Aspirin Ec (Aspirin) 325 Mg Tablet.dr 325 Mg PO [id number] 30 Days Reported Tamiflu (Oseltamivir Phosphate) 30 Mg Capsule 1 Cap PO BID Vitamin B-12 (Cyanocobalamin (Vitamin B-12)) 1,000 Mcg Tablet 1 Tab PO DAILY Metoprolol Succinate ( Xl ) (Metoprolol Succinate) 25 Mg Tab.er.24h 1 Tab PO DAILY Losartan Potassium 100 Mg Tablet 100 Mg PO DAILY Multivitamins (Multivitamin) 1 Each Tablet 1 Tab PO DAILY Vitamin D (Cholecalciferol (Vitamin D3)) 2,000 Unit Capsule 1 Cap PO DAILY Vitals/I & O Vital Sign - Last 24 Hours 12/27/18 12/27/18 12/27/18 12/27/18 15:00 19:23 20:00 22:28 Temp 97.6 98.0 97.6 98.0 Pulse 79 82 81 Resp 18 18 18 B/P (MAP) 117/55 (75) 114/44 (67) 121/45 (70) Pulse Ox 93 92 O2 Delivery Room Air Room Air Room Air O2 Flow Rate 2.0 12/28/18 12/28/18 12/28/18 12/28/18 02:44 07:00 09:09 09:18 Temp 99.0 97.9 99.0 97.9 Pulse 76 95 95 95 Resp 18 18 B/P (MAP) 102/42 (62) 113/52 (72) 113/52 113/52 Pulse Ox 92 18 O2 Delivery Room Air Room Air Intake and Output 12/27/18 12/27/18 12/28/18 14:59 22:59 06:59 Intake Total 840 ml 400 ml 2150 ml Output Total 0 ml 300 ml Balance 840 ml 400 ml 1850 ml BRI WARD III DO Dec 28, 2018 11:37
[2018-12-28] MEDS ORDERED: IV NORMAL SALINE 1000ML BAG 1,000 ML IV SCH (12:00)
--- NOTE | 2018-12-28 13:08 | NUR ---
SS following up with discharge planning. Per RN, pt had fall yesterday and remained in the hospital. UA being collected to rule out UTI. SS met with pt and daughter in room to discuss discharge planning. Pt was set up with [facility], ; fax [phone]. Pt's daughter reported that she feels that since the fall pt has had increased confusion and weakness and needs fdc unit. Pt's daughter requesting PT/OT reevaluate pt. Pt's RN notified. SS will await PT/OT reassessment and will proceed accordingly. Pt's daughter reported that pt has been to [facility] in the past.
--- NOTE | 2018-12-28 13:32 | PDOC2 ---
CONSULT Date of Consult Date of Consult DATE: 12/28/18 TIME: 13:11 Source Source: Chart review History of Present Illness Reason for Visit: The patient is a 83-year-old male who hospitalized on 12/24/18 as could not get out of bed same morning; he felt quite weak. He also reported that his right arm was a little weak. He was having a cough and some nasal congestion and this has been going on for a few days. Upon arrival to the ER, he was also noted to have a low-grade fever of 100.1. He is positive for flu A. Plan was to dc him home but he fell yesterday, not going home today . Renal consulted for HERBER Pt sitting up getting ready to eat lunch , daughter at bedside. Denies any complaints . Cr Up from baseline at admission, Started on losartan on 12/25, BP low Past Medical History Cardiovascular: HTN, Hyperlipidemia, Other (PSVT) Pulmonary: No pertinent hx CENTRAL NERVOUS SYSTEM: CVA GI: GERD Heme/Onc: No pertinent hx Hepatobiliary: No pertinent hx Psych: No pertinent hx Infectious disease: No pertinent hx Renal/: Benign prostatic enlarg. Endocrine: No pertinent hx Past Surgical History Past Surgical History: Hernia Repair Family History Family History: Hypertension Social History No ALCOHOL: none Drugs: None Lives: with Family Current Problem List Problem List Problems Medical Problems: (1) Elevated troponin Status: Acute (2) Influenza A Status: Acute Current Medications Current Medications Current Medications Acetaminophen (Tylenol) 1,000 mg 1X ONCE PO Last administered on 12/24/18at 19: 30; Start 12/24/18 at 19:30; Stop 12/24/18 at 19:33; Status DC Sodium Chloride 1,000 ml @ 125 mls/hr 1X ONCE IV Last administered on at 19:30; Start 12/24/18 at 19:30; Stop 12/25/18 at 03:29; Status DC Oseltamivir Phosphate (Tamiflu) 75 mg 1X ONCE PO Last administered on at 20:00; Start 12/24/18 at 20:00; Stop 12/24/18 at 20:01; Status DC Aspirin (Elier Aspirin) 325 mg 1X ONCE PO Last administered on 12/24/18at 21:58 ; Start 12/24/18 at 22:00; Stop 12/24/18 at 22:01; Status DC Oseltamivir Phosphate (Tamiflu) 30 mg BID PO Last administered on 12/28/18 09: 08; Start 12/25/18 at 09:00; Stop 12/29/18 at 09:01 Aspirin (Ecotrin) 325 mg DAILYWBKFT PO Last administered on 12/28/18 09:08; Start 12/25/18 at 12:00 Atorvastatin Calcium (Lipitor) 40 mg QHS PO Last administered on 12/27/18 21:20 ; Start 12/25/18 at 21:00 Metoprolol Succinate (Toprol Xl) 25 mg DAILY PO Last administered on 12/28/18 09:09; Start 12/25/18 at 12:00 Vitamin D (Vitamin D3) 2,000 unit DAILY PO Last administered on 12/28/18 09:09 ; Start 12/25/18 at 12:00 Losartan Potassium (Cozaar) 100 mg DAILY PO Last administered on 12/28/18 09:18 ; Start 12/25/18 at 12:00 Multivitamins (Thera M Plus) 1 tab DAILY PO Last administered on 12/28/18 09:08 ; Start 12/25/18 at 12:00 Pantoprazole Sodium (Protonix) 40 mg DAILYAC PO Last administered on 12/28/18 09:08; Start 12/25/18 at 12:00 Calcium Carbonate/ Glycine (Tums) 500 mg PRN AFTMEALHC PRN PO INDIGESTION Last administered on 12/26/18 08:34; Start 12/25/18 at 22:15 Trazodone HCl (Desyrel) 50 mg PRN QHS PRN PO INSOMNIA Last administered on 21:21; Start 12/26/18 at 21:00 Amoxicillin/ Clavulanate Potassium (Augmentin 875/ 125mg) 1 tab BID PO ; Start 12/28/18 at 12:00 Sodium Chloride 1,000 ml @ 75 mls/hr [id number] IV ; Start 12/28/18 at 12:00 Active Scripts Active Atorvastatin Calcium 40 Mg Tablet 40 Mg PO QHS 30 Days Aspirin Ec (Aspirin) 325 Mg Tablet.dr 325 Mg PO DAILYWBKFT 30 Days Reported Tamiflu (Oseltamivir Phosphate) 30 Mg Capsule 1 Cap PO BID Vitamin B-12 (Cyanocobalamin (Vitamin B-12)) 1,000 Mcg Tablet 1 Tab PO DAILY Metoprolol Succinate ( Xl ) (Metoprolol Succinate) 25 Mg Tab.er.24h 1 Tab PO DAILY Losartan Potassium 100 Mg Tablet 100 Mg PO DAILY Multivitamins (Multivitamin) 1 Each Tablet 1 Tab PO DAILY Vitamin D (Cholecalciferol (Vitamin D3)) 2,000 Unit Capsule 1 Cap PO DAILY Allergies Allergies: Coded Allergies: iodine (Verified Allergy, Intermediate, Rash, 08/12/15) iron (Verified Allergy, Intermediate, Rash, 09/05/15) INJECTABLE iron dextran complex (Verified Allergy, Intermediate, Rash, 09/05/15) ROS Review of System As per HPI Physical Exam Physical Exam GENERAL: NAD HEENT- OM moist NECK Supple HEART: Normal S1, S2. LUNGS: Clear. ABDOMEN: Soft. EXTREMITIES: No edema SKIN: No rashes. NEUROLOGIC: Grossly normal - No Fong Vital Signs Vital Signs Date Time Temp Pulse Resp B/P (MAP) Pulse Ox O2 Delivery O2 Flow Rate FiO2 12/28/18 09:18 95 113/52 12/28/18 08:00 Room Air 12/28/18 07:00 97.9 18 18 97.9 12/27/18 20:00 2.0 Assessment & Plan HERBER- ATN, R/o DAMON /Urinary retention Started on losartan on 12/25, BP Low DC Losartan R/O UTI- , check UA, Renal Duplex with PVR Suspect have baseline CKD Strict I/O Hypotension- Fell yesterday DC losartan Hyponatremia- mild Monitor Influenza- On tamiflu Dw pt, daughter and RN at bedside Labs Labs Laboratory Tests Test 12/27/18 04:05 12/28/18 02:30 White Blood Count 10.2 x10^3/uL (4.0-11.0) 16.5 x10^3/uL (4.0-11.0) Red Blood Count 4.66 x10^6/uL (4.30-5.70) 4.28 x10^6/uL (4.30-5.70) Hemoglobin 14.1 g/dL (13.0-17.5) 12.8 g/dL (13.0-17.5) Hematocrit 42.6 % (39.0-53.0) 39.1 % (39.0-53.0) Mean Corpuscular Volume 91 fL (79-100) 92 fL (79-100) Mean Corpuscular Hemoglobin 30 pg (25-35) 30 pg (25-35) Mean Corpuscular Hemoglobin Concent 33 g/dL (31-37) 33 g/dL (31-37) Red Cell Distribution Width 13.3 % (11.5-14.5) 13.2 % (11.5-14.5) Platelet Count 154 x10^3/uL (140-400) 130 x10^3/uL (140-400) Neutrophils (%) (Auto) 75 % (31-73) 80 % (31-73) Lymphocytes (%) (Auto) 13 % (24-48) 10 % (24-48) Monocytes (%) (Auto) 13 % (0-9) 10 % (0-9) Eosinophils (%) (Auto) 0 % (0-3) 0 % (0-3) Basophils (%) (Auto) 0 % (0-3) 0 % (0-3) Neutrophils # (Auto) 7.6 x10^3uL (1.8-7.7) 13.2 x10^3uL (1.8-7.7) Lymphocytes # (Auto) 1.3 x10^3/uL (1.0-4.8) 1.6 x10^3/uL (1.0-4.8) Monocytes # (Auto) 1.3 x10^3/uL (0.0-1.1) 1.7 x10^3/uL (0.0-1.1) Eosinophils # (Auto) 0.0 x10^3/uL (0.0-0.7) 0.0 x10^3/uL (0.0-0.7) Basophils # (Auto) 0.0 x10^3/uL (0.0-0.2) 0.0 x10^3/uL (0.0-0.2) Sodium Level 137 mmol/L (136-145) 133 mmol/L (136-145) Potassium Level 4.0 mmol/L (3.5-5.1) 4.0 mmol/L (3.5-5.1) Chloride Level 103 mmol/L (98-107) 99 mmol/L (98-107) Carbon Dioxide Level 25 mmol/L (21-32) 23 mmol/L (21-32) Anion Gap 9 (6-14) 11 (6-14) Blood Urea Nitrogen 20 mg/dL (8-26) 35 mg/dL (8-26) Creatinine 1.2 mg/dL (0.7-1.3) 2.1 mg/dL (0.7-1.3) Estimated GFR (Cockcroft-Gault) 57.8 30.3 BUN/Creatinine Ratio 17 (6-20) 17 (6-20) Glucose Level 125 mg/dL (70-99) 114 mg/dL (70-99) Calcium Level 8.6 mg/dL (8.5-10.1) 8.4 mg/dL (8.5-10.1) Total Bilirubin 0.8 mg/dL (0.2-1.0) 1.0 mg/dL (0.2-1.0) Aspartate Amino Transf (AST/SGOT) 46 U/L (15-37) 38 U/L (15-37) Alanine Aminotransferase (ALT/SGPT) 44 U/L (16-63) 37 U/L (16-63) Alkaline Phosphatase 53 U/L (46-116) 50 U/L (46-116) Total Protein 6.1 g/dL (6.4-8.2) 5.8 g/dL (6.4-8.2) Albumin 2.7 g/dL (3.4-5.0) 2.4 g/dL (3.4-5.0) Albumin/Globulin Ratio 0.8 (1.0-1.7) 0.7 (1.0-1.7) Laboratory Tests Test 12/28/18 02:30 White Blood Count 16.5 x10^3/uL (4.0-11.0) Red Blood Count 4.28 x10^6/uL (4.30-5.70) Hemoglobin 12.8 g/dL (13.0-17.5) Hematocrit 39.1 % (39.0-53.0) Mean Corpuscular Volume 92 fL (79-100) Mean Corpuscular Hemoglobin 30 pg (25-35) Mean Corpuscular Hemoglobin Concent 33 g/dL (31-37) Red Cell Distribution Width 13.2 % (11.5-14.5) Platelet Count 130 x10^3/uL (140-400) Neutrophils (%) (Auto) 80 % (31-73) Lymphocytes (%) (Auto) 10 % (24-48) Monocytes (%) (Auto) 10 % (0-9) Eosinophils (%) (Auto) 0 % (0-3) Basophils (%) (Auto) 0 % (0-3) Neutrophils # (Auto) 13.2 x10^3uL (1.8-7.7) Lymphocytes # (Auto) 1.6 x10^3/uL (1.0-4.8) Monocytes # (Auto) 1.7 x10^3/uL (0.0-1.1) Eosinophils # (Auto) 0.0 x10^3/uL (0.0-0.7) Basophils # (Auto) 0.0 x10^3/uL (0.0-0.2) Sodium Level 133 mmol/L (136-145) Potassium Level 4.0 mmol/L (3.5-5.1) Chloride Level 99 mmol/L (98-107) Carbon Dioxide Level 23 mmol/L (21-32) Anion Gap 11 (6-14) Blood Urea Nitrogen 35 mg/dL (8-26) Creatinine 2.1 mg/dL (0.7-1.3) Estimated GFR (Cockcroft-Gault) 30.3 BUN/Creatinine Ratio 17 (6-20) Glucose Level 114 mg/dL (70-99) Calcium Level 8.4 mg/dL (8.5-10.1) Total Bilirubin 1.0 mg/dL (0.2-1.0) Aspartate Amino Transf (AST/SGOT) 38 U/L (15-37) Alanine Aminotransferase (ALT/SGPT) 37 U/L (16-63) Alkaline Phosphatase 50 U/L (46-116) Total Protein 5.8 g/dL (6.4-8.2) Albumin 2.4 g/dL (3.4-5.0) Albumin/Globulin Ratio 0.7 (1.0-1.7) Review All relevant outside records, renal labs, imaging studies, telemetry/EKG's were reviewed. SUNSHINE ABREU MD Dec 28, 2018 13:32
--- NOTE | 2018-12-28 14:14 | RAD ---
CHEST PA LATERAL CLINICAL INDICATION: EVALUATE FOR PNEUMONIA/DROPLET PRECAUTION COMPARISON: 12/24/2018 FINDINGS: Heart is normal in size. Linear wedge-shaped opacity in the right lower lung zone likely subsegmental atelectasis. No pneumothorax or pleural effusion. Visualized bony thorax is within normal limits. IMPRESSION: No acute pulmonary process. Electronically signed by: Sharath Earl DO (12/28/2018 2:10 PM) [id number]
[2018-12-28] MEDS: LACTOBACILLUS RHAMNOSUS GG 1 CAPSULE. PO SCH ×2 (14:45→20:16)
[2018-12-28] MEDS: AMOXICILLIN/K CLAV 875/125MG TABLET. PO SCH ×2 (14:45→20:15)
[2018-12-28 15:00] VITALS: BP 131/56
--- NOTE | 2018-12-28 15:57 | NUR ---
SS following up with discharge planning. PT/OT recommended fci unit. SS met with pt's daughter in room and pt's daughter requested that referral be sent to [facility], ; fax [phone]. SS phoned and faxed referral to [facility]. SS awaiting acceptance decision and insurance determination and will proceed accordingly with discharge planning. Pt's RN notified.
--- NOTE | 2018-12-28 16:50 | RAD ---
Renal ultrasound, 12/28/2018: HISTORY: Acute renal insufficiency The right kidney measures 11.4 cm in length while the left kidney measures 10.6 cm. There is mild bilateral renal cortical scarring. There is mild hydronephrosis on the left. The right renal collecting system is not dilated. No renal mass is seen. The urinary bladder demonstrates a prevoiding volume of 390 cc. Following voiding the bladder volume was estimated at 185 cc. Incidental note is made of extensive echogenic foci in the gallbladder with posterior acoustic shadowing compatible with cholelithiasis. IMPRESSION: 1. Mild left hydronephrosis.. 2. Mild bilateral renal cortical scarring. 3. Moderate volume of post voiding residual urine in the bladder. 4. Cholelithiasis Electronically signed by: Srinath Baer MD (12/28/2018 4:47 PM) [facility]
[2018-12-28 19:30] VITALS: BP 122/53
[2018-12-28] MEDS: ACETAMINOPHEN 500 MG TABLET PO PRN (20:15)
[2018-12-28] MEDS: ATORVASTATIN CALCIUM 40 MG TABLET. PO SCH (20:15)
[2018-12-28] MEDS: traZODone 50 MG TABLET. PO PRN (20:16)
[2018-12-28 23:31] VITALS: BP 100/43
[2018-12-29] VITALS (7 sets, daily range): BP systolic 119–148; BP diastolic 47–69
[2018-12-29 03:56] LABS: BASO % 0 % (0-3); EOS % 0 % (0-3); LYMPH # 1.9 x10^3/uL (1.0-4.8); LYMPH % 10 % (24-48); MEAN CORPUSCULAR HEMOGLOBIN 31 pg (25-35); MEAN CORPUSCULAR HGB CONC 33 g/dL (31-37); MEAN CORPUSCULAR VOLUME 92 fL (79-100); MONO # 1.8 x10^3/uL (0.0-1.1); MONO % 9 % (0-9); NEUT # 15.7 x10^3uL (1.8-7.7); NEUT % 81 % (31-73); PLATELET COUNT 145 x10^3/uL (140-400); RED BLOOD COUNT 4.24 x10^6/uL (4.30-5.70); RED CELL DISTRIBUTION WIDTH 13.5 % (11.5-14.5); WHITE BLOOD COUNT 19.4 x10^3/uL (4.0-11.0)
[2018-12-29 04:31] LABS: ALBUMIN 2.2 g/dL (3.4-5.0); ALBUMIN/GLOBULIN RATIO 0.7 (1.0-1.7); CREATININE 1.7 mg/dL (0.7-1.3); GFR 38.7; POTASSIUM 4.3 mmol/L (3.5-5.1); TOTAL BILIRUBIN 0.9 mg/dL (0.2-1.0); TOTAL PROTEIN 5.4 g/dL (6.4-8.2)
--- NOTE | 2018-12-29 09:23 | PDOC ---
SUBJECTIVE ROS No new concerns voiced OBJECTIVE Vital Signs Vital Signs Date Time Temp Pulse Resp B/P (MAP) Pulse Ox O2 Delivery O2 Flow Rate FiO2 12/29/18 07:30 97.9 87 24 119/55 (76) Nasal Cannula 2.0 97.9 12/29/18 03:45 94 I & 0 Intake and Output 12/29/18 07:00 Intake Total 1500 ml Output Total 150 ml Balance 1350 ml Intake Oral 1400 ml Other 100 ml Output Urine Total 150 ml # Voids 1 # Bowel Movements 1 PHYSICAL EXAM Physical Exam GENERAL: NAD HEENT- OM moist NECK Supple HEART: Normal S1, S2. LUNGS: Clear. ABDOMEN: Soft. EXTREMITIES: No edema SKIN: No rashes. NEUROLOGIC: Grossly normal - No Fong DIAGNOSIS/ASSESSMENT Assessment & Plan HERBER- ATN, R/o DAMON /Urinary retention Started on losartan on 12/25, BP Low Losartan dced yesterday , Creat improved Renal US- Mild left hydronephrosis, Mild bilateral renal cortical scarring, Moderate volume of post voiding residual urine in the bladder. Suspect have baseline CKD Strict I/O ,gentle IV Hydration NS . Fong Elevated WBC - UA Ordered, No t done Mild Hydronephrosis/Urinary retention - Consult urology Hypotension- Fell yesterday DC losartan , BP improved Hyponatremia- mild Monitor Influenza- On tamiflu Dw pt and RN at bedside COMMENT/RELEVANT DATA Meds Current Medications Medications (Trade) Dose Ordered Sig/Zane Start Time Stop Time Status Last Admin Dose Admin Acetaminophen (Tylenol) 500 mg PRN Q6HRS PRN 12/28/18 20:15 12/28/18 20:15 500 MG Amoxicillin/ Clavulanate Potassium (Augmentin 875/ 125mg) 1 tab BID 12/28/18 12:00 12/28/18 20:15 1 TAB Aspirin (Elier Aspirin) 325 mg 1X ONCE 12/24/18 22:00 12/24/18 22:01 DC 12/24/18 21:58 325 MG Aspirin (Ecotrin) 325 mg DAILYWBKFT 12/25/18 12:00 12/28/18 09:08 325 MG Atorvastatin Calcium (Lipitor) 40 mg QHS 12/25/18 21:00 12/28/18 20:15 40 MG Calcium Carbonate/ Glycine (Tums) 500 mg PRN AFTMEALHC PRN 12/25/18 22:15 12/26/18 08:34 500 MG Lactobacillus Rhamnosus (Culturelle) 1 cap BID 12/28/18 14:00 12/28/18 20:16 1 CAP Losartan Potassium (Cozaar) 100 mg DAILY 12/25/18 12:00 12/28/18 13:46 DC 12/28/18 09:18 100 MG Metoprolol Succinate (Toprol Xl) 25 mg DAILY 12/25/18 12:00 12/28/18 09:09 25 MG Multivitamins (Thera M Plus) 1 tab DAILY 12/25/18 12:00 12/28/18 09:08 1 TAB Oseltamivir Phosphate (Tamiflu) 30 mg BID 12/25/18 09:00 12/29/18 09:01 DC 12/28/18 20:16 30 MG Pantoprazole Sodium (Protonix) 40 mg DAILYAC 12/25/18 12:00 12/28/18 09:08 40 MG Sodium Chloride 1,000 ml @ 75 mls/hr [id number] 12/28/18 12:00 Trazodone HCl (Desyrel) 50 mg PRN QHS PRN 12/26/18 21:00 12/28/18 20:16 50 MG Vitamin D (Vitamin D3) 2,000 unit DAILY 12/25/18 12:00 12/28/18 09:09 2,000 UNIT Lab Laboratory Tests Test 12/29/18 03:00 White Blood Count 19.4 x10^3/uL (4.0-11.0) Red Blood Count 4.24 x10^6/uL (4.30-5.70) Hemoglobin 13.0 g/dL (13.0-17.5) Hematocrit 39.0 % (39.0-53.0) Mean Corpuscular Volume 92 fL (79-100) Mean Corpuscular Hemoglobin 31 pg (25-35) Mean Corpuscular Hemoglobin Concent 33 g/dL (31-37) Red Cell Distribution Width 13.5 % (11.5-14.5) Platelet Count 145 x10^3/uL (140-400) Neutrophils (%) (Auto) 81 % (31-73) Lymphocytes (%) (Auto) 10 % (24-48) Monocytes (%) (Auto) 9 % (0-9) Eosinophils (%) (Auto) 0 % (0-3) Basophils (%) (Auto) 0 % (0-3) Neutrophils # (Auto) 15.7 x10^3uL (1.8-7.7) Lymphocytes # (Auto) 1.9 x10^3/uL (1.0-4.8) Monocytes # (Auto) 1.8 x10^3/uL (0.0-1.1) Eosinophils # (Auto) 0.0 x10^3/uL (0.0-0.7) Basophils # (Auto) 0.0 x10^3/uL (0.0-0.2) Sodium Level 130 mmol/L (136-145) Potassium Level 4.3 mmol/L (3.5-5.1) Chloride Level 97 mmol/L (98-107) Carbon Dioxide Level 22 mmol/L (21-32) Anion Gap 11 (6-14) Blood Urea Nitrogen 42 mg/dL (8-26) Creatinine 1.7 mg/dL (0.7-1.3) Estimated GFR (Cockcroft-Gault) 38.7 BUN/Creatinine Ratio 25 (6-20) Glucose Level 107 mg/dL (70-99) Calcium Level 8.0 mg/dL (8.5-10.1) Total Bilirubin 0.9 mg/dL (0.2-1.0) Aspartate Amino Transf (AST/SGOT) 54 U/L (15-37) Alanine Aminotransferase (ALT/SGPT) 34 U/L (16-63) Alkaline Phosphatase 60 U/L (46-116) Total Protein 5.4 g/dL (6.4-8.2) Albumin 2.2 g/dL (3.4-5.0) Albumin/Globulin Ratio 0.7 (1.0-1.7) Results All relevant outside records, renal labs, imaging studies, telemetry/EKG's were reviewed. Other CxR-- Heart is normal in size. Linear wedge-shaped opacity in the right lower lung zone likely subsegmental atelectasis. No pneumothorax or pleural effusion. Visualized bony thorax is within normal limits. IMPRESSION: No acute pulmonary process. SUNSHINE ABREU MD Dec 29, 2018 09:23
[2018-12-29] MEDS: ASPIRIN ENTERIC COATED 325 MG TABLET.DR. PO SCH (11:00)
[2018-12-29] MEDS: MULTIVITAMIN with MINERAL TABLET. PO SCH (11:00)
[2018-12-29] MEDS: OSELTAMIVIR 30 MG CAPSULE PO SCH (11:00)
[2018-12-29] MEDS: LACTOBACILLUS RHAMNOSUS GG 1 CAPSULE. PO SCH ×2 (11:00→21:00)
[2018-12-29] MEDS: METOPROLOL SUCC 24HR ER 25 MG TAB.ER.24H. PO SCH (11:00)
[2018-12-29] MEDS: CHOLECALCIFEROL (VITAMIN D3) 1,000 UNIT TABLET PO SCH (11:01)
[2018-12-29] MEDS: PANTOPRAZOLE 40 MG TABLET.DR. PO SCH (11:01)
[2018-12-29] MEDS: AMOXICILLIN/K CLAV 875/125MG TABLET. PO SCH (11:01)
--- NOTE | 2018-12-29 11:26 | PDOC ---
PROGRESS NOTES Chief Complaint Chief Complaint Weakness Cough SEPSIS Influenza + Elevated Troponin H/o CVA HTN HLD GERD History of Present Illness History of Present Illness Mr Malik was seen and examined this morning He reports feeling "not so great" this morning, he was coughing during exam His case was discussed with RN Pt with mild/mod distress, resting in bed Pt does have an increasing white count of 19.4, and Cr is improved to 1.7 Mild hyponatremia today- 130 Renal US showed some L hydronephrosis- urology/nephrology consulted Vitals Vitals Vital Signs Date Time Temp Pulse Resp B/P (MAP) Pulse Ox O2 Delivery O2 Flow Rate FiO2 12/29/18 11:00 91 119/59 12/29/18 10:35 100.0 20 91 Nasal Cannula 2.0 100.0 Physical Exam General: Alert, Oriented X3, Cooperative Heart: Normal S1, Normal S2, Other (tachycardia, 2/6 systolic murmur to LLS border) Lungs: Clear Abdomen: Soft, No tenderness Extremities: No cyanosis, No edema Skin: No breakdown, No significant lesion Labs LABS Laboratory Tests Test 12/29/18 03:00 White Blood Count 19.4 x10^3/uL (4.0-11.0) Red Blood Count 4.24 x10^6/uL (4.30-5.70) Hemoglobin 13.0 g/dL (13.0-17.5) Hematocrit 39.0 % (39.0-53.0) Mean Corpuscular Volume 92 fL (79-100) Mean Corpuscular Hemoglobin 31 pg (25-35) Mean Corpuscular Hemoglobin Concent 33 g/dL (31-37) Red Cell Distribution Width 13.5 % (11.5-14.5) Platelet Count 145 x10^3/uL (140-400) Neutrophils (%) (Auto) 81 % (31-73) Lymphocytes (%) (Auto) 10 % (24-48) Monocytes (%) (Auto) 9 % (0-9) Eosinophils (%) (Auto) 0 % (0-3) Basophils (%) (Auto) 0 % (0-3) Neutrophils # (Auto) 15.7 x10^3uL (1.8-7.7) Lymphocytes # (Auto) 1.9 x10^3/uL (1.0-4.8) Monocytes # (Auto) 1.8 x10^3/uL (0.0-1.1) Eosinophils # (Auto) 0.0 x10^3/uL (0.0-0.7) Basophils # (Auto) 0.0 x10^3/uL (0.0-0.2) Sodium Level 130 mmol/L (136-145) Potassium Level 4.3 mmol/L (3.5-5.1) Chloride Level 97 mmol/L (98-107) Carbon Dioxide Level 22 mmol/L (21-32) Anion Gap 11 (6-14) Blood Urea Nitrogen 42 mg/dL (8-26) Creatinine 1.7 mg/dL (0.7-1.3) Estimated GFR (Cockcroft-Gault) 38.7 BUN/Creatinine Ratio 25 (6-20) Glucose Level 107 mg/dL (70-99) Calcium Level 8.0 mg/dL (8.5-10.1) Total Bilirubin 0.9 mg/dL (0.2-1.0) Aspartate Amino Transf (AST/SGOT) 54 U/L (15-37) Alanine Aminotransferase (ALT/SGPT) 34 U/L (16-63) Alkaline Phosphatase 60 U/L (46-116) Total Protein 5.4 g/dL (6.4-8.2) Albumin 2.2 g/dL (3.4-5.0) Albumin/Globulin Ratio 0.7 (1.0-1.7) Review of Systems Review of Systems Pt reports SOB, cough, weakness Denies CP, n/v/d Assessment and Plan Assessmemt and Plan Problems Medical Problems: (1) Elevated troponin Status: Acute (2) Influenza A Status: Acute Assessment Weakness Cough SIRS (Sepsis?)- WBC 19, HR >90, R 20, T 100.0, potential UTI Hyponatremia Influenza + Elevated Troponin H/o CVA HTN HLD GERD Plan Urology and nephrology consulted- appreciate recs US showing some L hydronephrosis- check UA for UTI 1000ml NS @75mL/hr for hyponatremia Augmentin PO D/C losartan- BP too low PT/OT home meds Frequent labs Comment Review of Relevant I have reviewed the following items timoteo (where applicable) has been applied. Labs Laboratory Tests Test 12/28/18 02:30 12/29/18 03:00 White Blood Count 16.5 x10^3/uL (4.0-11.0) 19.4 x10^3/uL (4.0-11.0) Red Blood Count 4.28 x10^6/uL (4.30-5.70) 4.24 x10^6/uL (4.30-5.70) Hemoglobin 12.8 g/dL (13.0-17.5) 13.0 g/dL (13.0-17.5) Hematocrit 39.1 % (39.0-53.0) 39.0 % (39.0-53.0) Mean Corpuscular Volume 92 fL (79-100) 92 fL (79-100) Mean Corpuscular Hemoglobin 30 pg (25-35) 31 pg (25-35) Mean Corpuscular Hemoglobin Concent 33 g/dL (31-37) 33 g/dL (31-37) Red Cell Distribution Width 13.2 % (11.5-14.5) 13.5 % (11.5-14.5) Platelet Count 130 x10^3/uL (140-400) 145 x10^3/uL (140-400) Neutrophils (%) (Auto) 80 % (31-73) 81 % (31-73) Lymphocytes (%) (Auto) 10 % (24-48) 10 % (24-48) Monocytes (%) (Auto) 10 % (0-9) 9 % (0-9) Eosinophils (%) (Auto) 0 % (0-3) 0 % (0-3) Basophils (%) (Auto) 0 % (0-3) 0 % (0-3) Neutrophils # (Auto) 13.2 x10^3uL (1.8-7.7) 15.7 x10^3uL (1.8-7.7) Lymphocytes # (Auto) 1.6 x10^3/uL (1.0-4.8) 1.9 x10^3/uL (1.0-4.8) Monocytes # (Auto) 1.7 x10^3/uL (0.0-1.1) 1.8 x10^3/uL (0.0-1.1) Eosinophils # (Auto) 0.0 x10^3/uL (0.0-0.7) 0.0 x10^3/uL (0.0-0.7) Basophils # (Auto) 0.0 x10^3/uL (0.0-0.2) 0.0 x10^3/uL (0.0-0.2) Sodium Level 133 mmol/L (136-145) 130 mmol/L (136-145) Potassium Level 4.0 mmol/L (3.5-5.1) 4.3 mmol/L (3.5-5.1) Chloride Level 99 mmol/L (98-107) 97 mmol/L (98-107) Carbon Dioxide Level 23 mmol/L (21-32) 22 mmol/L (21-32) Anion Gap 11 (6-14) 11 (6-14) Blood Urea Nitrogen 35 mg/dL (8-26) 42 mg/dL (8-26) Creatinine 2.1 mg/dL (0.7-1.3) 1.7 mg/dL (0.7-1.3) Estimated GFR (Cockcroft-Gault) 30.3 38.7 BUN/Creatinine Ratio 17 (6-20) 25 (6-20) Glucose Level 114 mg/dL (70-99) 107 mg/dL (70-99) Calcium Level 8.4 mg/dL (8.5-10.1) 8.0 mg/dL (8.5-10.1) Total Bilirubin 1.0 mg/dL (0.2-1.0) 0.9 mg/dL (0.2-1.0) Aspartate Amino Transf (AST/SGOT) 38 U/L (15-37) 54 U/L (15-37) Alanine Aminotransferase (ALT/SGPT) 37 U/L (16-63) 34 U/L (16-63) Alkaline Phosphatase 50 U/L (46-116) 60 U/L (46-116) Total Protein 5.8 g/dL (6.4-8.2) 5.4 g/dL (6.4-8.2) Albumin 2.4 g/dL (3.4-5.0) 2.2 g/dL (3.4-5.0) Albumin/Globulin Ratio 0.7 (1.0-1.7) 0.7 (1.0-1.7) Laboratory Tests Test 12/29/18 03:00 White Blood Count 19.4 x10^3/uL (4.0-11.0) Red Blood Count 4.24 x10^6/uL (4.30-5.70) Hemoglobin 13.0 g/dL (13.0-17.5) Hematocrit 39.0 % (39.0-53.0) Mean Corpuscular Volume 92 fL (79-100) Mean Corpuscular Hemoglobin 31 pg (25-35) Mean Corpuscular Hemoglobin Concent 33 g/dL (31-37) Red Cell Distribution Width 13.5 % (11.5-14.5) Platelet Count 145 x10^3/uL (140-400) Neutrophils (%) (Auto) 81 % (31-73) Lymphocytes (%) (Auto) 10 % (24-48) Monocytes (%) (Auto) 9 % (0-9) Eosinophils (%) (Auto) 0 % (0-3) Basophils (%) (Auto) 0 % (0-3) Neutrophils # (Auto) 15.7 x10^3uL (1.8-7.7) Lymphocytes # (Auto) 1.9 x10^3/uL (1.0-4.8) Monocytes # (Auto) 1.8 x10^3/uL (0.0-1.1) Eosinophils # (Auto) 0.0 x10^3/uL (0.0-0.7) Basophils # (Auto) 0.0 x10^3/uL (0.0-0.2) Sodium Level 130 mmol/L (136-145) Potassium Level 4.3 mmol/L (3.5-5.1) Chloride Level 97 mmol/L (98-107) Carbon Dioxide Level 22 mmol/L (21-32) Anion Gap 11 (6-14) Blood Urea Nitrogen 42 mg/dL (8-26) Creatinine 1.7 mg/dL (0.7-1.3) Estimated GFR (Cockcroft-Gault) 38.7 BUN/Creatinine Ratio 25 (6-20) Glucose Level 107 mg/dL (70-99) Calcium Level 8.0 mg/dL (8.5-10.1) Total Bilirubin 0.9 mg/dL (0.2-1.0) Aspartate Amino Transf (AST/SGOT) 54 U/L (15-37) Alanine Aminotransferase (ALT/SGPT) 34 U/L (16-63) Alkaline Phosphatase 60 U/L (46-116) Total Protein 5.4 g/dL (6.4-8.2) Albumin 2.2 g/dL (3.4-5.0) Albumin/Globulin Ratio 0.7 (1.0-1.7) Microbiology 12/25/18 Blood Culture - Preliminary, Resulted NO GROWTH AFTER 4 DAYS Medications Current Medications Acetaminophen (Tylenol) 1,000 mg 1X ONCE PO Last administered on 12/24/18 19: 30; Start 12/24/18 at 19:30; Stop 12/24/18 at 19:33; Status DC Sodium Chloride 1,000 ml @ 125 mls/hr 1X ONCE IV Last administered on 19:30; Start 12/24/18 at 19:30; Stop 12/25/18 at 03:29; Status DC Oseltamivir Phosphate (Tamiflu) 75 mg 1X ONCE PO Last administered on 20:00; Start 12/24/18 at 20:00; Stop 12/24/18 at 20:01; Status DC Aspirin (Elier Aspirin) 325 mg 1X ONCE PO Last administered on 12/24/18 21:58 ; Start 12/24/18 at 22:00; Stop 12/24/18 at 22:01; Status DC Oseltamivir Phosphate (Tamiflu) 30 mg BID PO Last administered on 12/29/18 11: 00; Start 12/25/18 at 09:00; Stop 12/29/18 at 09:01; Status DC Aspirin (Ecotrin) 325 mg DAILYWBKFT PO Last administered on 12/29/18 11:00; Start 12/25/18 at 12:00 Atorvastatin Calcium (Lipitor) 40 mg QHS PO Last administered on 12/28/18 20:15 ; Start 12/25/18 at 21:00 Metoprolol Succinate (Toprol Xl) 25 mg DAILY PO Last administered on 12/29/18 11:00; Start 12/25/18 at 12:00 Vitamin D (Vitamin D3) 2,000 unit DAILY PO Last administered on 12/29/18 11:01 ; Start 12/25/18 at 12:00 Losartan Potassium (Cozaar) 100 mg DAILY PO Last administered on 12/28/18 09:18 ; Start 12/25/18 at 12:00; Stop 12/28/18 at 13:46; Status DC Multivitamins (Thera M Plus) 1 tab DAILY PO Last administered on 12/29/18 11:00 ; Start 12/25/18 at 12:00 Pantoprazole Sodium (Protonix) 40 mg DAILYAC PO Last administered on 12/29/18 11:01; Start 12/25/18 at 12:00 Calcium Carbonate/ Glycine (Tums) 500 mg PRN AFTMEALHC PRN PO INDIGESTION Last administered on 12/26/18 08:34; Start 12/25/18 at 22:15 Trazodone HCl (Desyrel) 50 mg PRN QHS PRN PO INSOMNIA Last administered on 20:16; Start 12/26/18 at 21:00 Amoxicillin/ Clavulanate Potassium (Augmentin 875/ 125mg) 1 tab BID PO Last administered on 12/29/18 11:01; Start 12/28/18 at 12:00 Sodium Chloride 1,000 ml @ 75 mls/hr [id number] IV ; Start 12/28/18 at 12:00 Lactobacillus Rhamnosus (Culturelle) 1 cap BID PO Last administered on 11:00; Start 12/28/18 at 14:00 Acetaminophen (Tylenol) 500 mg PRN Q6HRS PRN PO MILD PAIN / TEMP Last administered on 12/28/18 20:15; Start 12/28/18 at 20:15 Active Scripts Active Atorvastatin Calcium 40 Mg Tablet 40 Mg PO QHS 30 Days Aspirin Ec (Aspirin) 325 Mg Tablet.dr 325 Mg PO DAILYWBKFT 30 Days Reported Tamiflu (Oseltamivir Phosphate) 30 Mg Capsule 1 Cap PO BID Vitamin B-12 (Cyanocobalamin (Vitamin B-12)) 1,000 Mcg Tablet 1 Tab PO DAILY Metoprolol Succinate ( Xl ) (Metoprolol Succinate) 25 Mg Tab.er.24h 1 Tab PO DAILY Losartan Potassium 100 Mg Tablet 100 Mg PO DAILY Multivitamins (Multivitamin) 1 Each Tablet 1 Tab PO DAILY Vitamin D (Cholecalciferol (Vitamin D3)) 2,000 Unit Capsule 1 Cap PO DAILY Vitals/I & O Vital Sign - Last 24 Hours 12/28/18 12/28/18 12/28/18 12/28/18 15:00 19:30 20:00 23:31 Temp 100.0 101.8 99.1 100.0 101.8 99.1 Pulse 80 75 79 Resp 18 25 22 B/P (MAP) 131/56 (81) 122/53 (76) 100/43 (62) Pulse Ox 95 88 92 O2 Delivery Room Air Room Air Room Air Nasal Cannula O2 Flow Rate 2.0 2.0 12/29/18 12/29/18 12/29/18 12/29/18 03:45 07:30 10:35 11:00 Temp 99.8 97.9 100.0 99.8 97.9 100.0 Pulse 76 87 91 91 Resp 22 24 20 B/P (MAP) 130/47 (74) 119/55 (76) 119/59 (79) 119/59 Pulse Ox 94 91 O2 Delivery Nasal Cannula Nasal Cannula Nasal Cannula O2 Flow Rate 2.0 2.0 2.0 Intake and Output 12/28/18 12/28/18 12/29/18 15:00 23:00 07:00 Intake Total 800 ml 100 ml 600 ml Output Total 150 ml Balance 800 ml 100 ml 450 ml BRI WARD III DO Dec 29, 2018 11:26
--- NOTE | 2018-12-29 12:15 | PDOC2 ---
UROLOGY CONSULT Date of Admission DATE: 12/29/18 TIME: 12:11 Chief Complaint slow stream Source: Chart review, Patient Incidental left hydro during mcdonough for fatigue and HERBER. NO stones, no prior Gu instrumention. No renal colic, groin pain. CR1.7 (2.1 and 1.2 on admission) +slow stream, chronic, no gu meds. pvr 190ml during RBUS. ROS ROS: RESPIRATORY: Shortness of breath denies. Cough denies. UROLOGY: Denies blood in urine. +_ difficulty urinating Past Surgical History: No pertinent history Current Medications Current Medications Acetaminophen (Tylenol) 1,000 mg 1X ONCE PO Last administered on 12/24/18 19: 30; Start 12/24/18 at 19:30; Stop 12/24/18 at 19:33; Status DC Sodium Chloride 1,000 ml @ 125 mls/hr 1X ONCE IV Last administered on 19:30; Start 12/24/18 at 19:30; Stop 12/25/18 at 03:29; Status DC Oseltamivir Phosphate (Tamiflu) 75 mg 1X ONCE PO Last administered on 20:00; Start 12/24/18 at 20:00; Stop 12/24/18 at 20:01; Status DC Aspirin (Elier Aspirin) 325 mg 1X ONCE PO Last administered on 12/24/18 21:58 ; Start 12/24/18 at 22:00; Stop 12/24/18 at 22:01; Status DC Oseltamivir Phosphate (Tamiflu) 30 mg BID PO Last administered on 12/29/18 11: 00; Start 12/25/18 at 09:00; Stop 12/29/18 at 09:01; Status DC Aspirin (Ecotrin) 325 mg DAILYWBKFT PO Last administered on 12/29/18 11:00; Start 12/25/18 at 12:00 Atorvastatin Calcium (Lipitor) 40 mg QHS PO Last administered on 12/28/18 20:15 ; Start 12/25/18 at 21:00 Metoprolol Succinate (Toprol Xl) 25 mg DAILY PO Last administered on 12/29/18 11:00; Start 12/25/18 at 12:00 Vitamin D (Vitamin D3) 2,000 unit DAILY PO Last administered on 12/29/18 11:01 ; Start 12/25/18 at 12:00 Losartan Potassium (Cozaar) 100 mg DAILY PO Last administered on 12/28/18 09:18 ; Start 12/25/18 at 12:00; Stop 12/28/18 at 13:46; Status DC Multivitamins (Thera M Plus) 1 tab DAILY PO Last administered on 12/29/18 11:00 ; Start 12/25/18 at 12:00 Pantoprazole Sodium (Protonix) 40 mg DAILYAC PO Last administered on 12/29/18 11:01; Start 12/25/18 at 12:00 Calcium Carbonate/ Glycine (Tums) 500 mg PRN AFTMEALHC PRN PO INDIGESTION Last administered on 12/26/18 08:34; Start 12/25/18 at 22:15 Trazodone HCl (Desyrel) 50 mg PRN QHS PRN PO INSOMNIA Last administered on 20:16; Start 12/26/18 at 21:00 Amoxicillin/ Clavulanate Potassium (Augmentin 875/ 125mg) 1 tab BID PO Last administered on 12/29/18 11:01; Start 12/28/18 at 12:00 Sodium Chloride 1,000 ml @ 75 mls/hr [id number] IV ; Start 12/28/18 at 12:00 Lactobacillus Rhamnosus (Culturelle) 1 cap BID PO Last administered on 11:00; Start 12/28/18 at 14:00 Acetaminophen (Tylenol) 500 mg PRN Q6HRS PRN PO MILD PAIN / TEMP Last administered on 12/28/18 20:15; Start 12/28/18 at 20:15 Sodium Chloride 1,000 ml @ 75 mls/hr [id number] IV ; Start 12/29/18 at 11:30 Active Scripts Active Atorvastatin Calcium 40 Mg Tablet 40 Mg PO QHS 30 Days Aspirin Ec (Aspirin) 325 Mg Tablet.dr 325 Mg PO DAILYWBKFT 30 Days Reported Tamiflu (Oseltamivir Phosphate) 30 Mg Capsule 1 Cap PO BID Vitamin B-12 (Cyanocobalamin (Vitamin B-12)) 1,000 Mcg Tablet 1 Tab PO DAILY Metoprolol Succinate ( Xl ) (Metoprolol Succinate) 25 Mg Tab.er.24h 1 Tab PO DAILY Losartan Potassium 100 Mg Tablet 100 Mg PO DAILY Multivitamins (Multivitamin) 1 Each Tablet 1 Tab PO DAILY Vitamin D (Cholecalciferol (Vitamin D3)) 2,000 Unit Capsule 1 Cap PO DAILY Allergies: Coded Allergies: iodine (Verified Allergy, Intermediate, Rash, 08/12/15) iron (Verified Allergy, Intermediate, Rash, 09/05/15) INJECTABLE iron dextran complex (Verified Allergy, Intermediate, Rash, 09/05/15) Physical Examination PHYSICAL EXAMINATION: GENERAL: Gen. appearance: No acute distress. Mood/affect: Pleasant. HEENT: Head: Normocephalic, atraumatic. Airway Impairment: No. CHEST: Shape and expansion: Normal. Expansion: Normal. SKIN: General: Warm. Color: Good. GENITOURINARY:External genitalia - wnl. NEUROLOGICAL: Mental status: Alert and oriented 3. Language: Normal. DOES THIS PATIENT HAVE URINARY: No VITALS Vital Signs Date Time Temp Pulse Resp B/P (MAP) Pulse Ox O2 Delivery O2 Flow Rate FiO2 12/29/18 11:00 91 119/59 12/29/18 10:35 100.0 20 91 Nasal Cannula 2.0 100.0 Labs Laboratory Tests Test 12/28/18 02:30 12/29/18 03:00 White Blood Count 16.5 x10^3/uL (4.0-11.0) 19.4 x10^3/uL (4.0-11.0) Red Blood Count 4.28 x10^6/uL (4.30-5.70) 4.24 x10^6/uL (4.30-5.70) Hemoglobin 12.8 g/dL (13.0-17.5) 13.0 g/dL (13.0-17.5) Hematocrit 39.1 % (39.0-53.0) 39.0 % (39.0-53.0) Mean Corpuscular Volume 92 fL (79-100) 92 fL (79-100) Mean Corpuscular Hemoglobin 30 pg (25-35) 31 pg (25-35) Mean Corpuscular Hemoglobin Concent 33 g/dL (31-37) 33 g/dL (31-37) Red Cell Distribution Width 13.2 % (11.5-14.5) 13.5 % (11.5-14.5) Platelet Count 130 x10^3/uL (140-400) 145 x10^3/uL (140-400) Neutrophils (%) (Auto) 80 % (31-73) 81 % (31-73) Lymphocytes (%) (Auto) 10 % (24-48) 10 % (24-48) Monocytes (%) (Auto) 10 % (0-9) 9 % (0-9) Eosinophils (%) (Auto) 0 % (0-3) 0 % (0-3) Basophils (%) (Auto) 0 % (0-3) 0 % (0-3) Neutrophils # (Auto) 13.2 x10^3uL (1.8-7.7) 15.7 x10^3uL (1.8-7.7) Lymphocytes # (Auto) 1.6 x10^3/uL (1.0-4.8) 1.9 x10^3/uL (1.0-4.8) Monocytes # (Auto) 1.7 x10^3/uL (0.0-1.1) 1.8 x10^3/uL (0.0-1.1) Eosinophils # (Auto) 0.0 x10^3/uL (0.0-0.7) 0.0 x10^3/uL (0.0-0.7) Basophils # (Auto) 0.0 x10^3/uL (0.0-0.2) 0.0 x10^3/uL (0.0-0.2) Sodium Level 133 mmol/L (136-145) 130 mmol/L (136-145) Potassium Level 4.0 mmol/L (3.5-5.1) 4.3 mmol/L (3.5-5.1) Chloride Level 99 mmol/L (98-107) 97 mmol/L (98-107) Carbon Dioxide Level 23 mmol/L (21-32) 22 mmol/L (21-32) Anion Gap 11 (6-14) 11 (6-14) Blood Urea Nitrogen 35 mg/dL (8-26) 42 mg/dL (8-26) Creatinine 2.1 mg/dL (0.7-1.3) 1.7 mg/dL (0.7-1.3) Estimated GFR (Cockcroft-Gault) 30.3 38.7 BUN/Creatinine Ratio 17 (6-20) 25 (6-20) Glucose Level 114 mg/dL (70-99) 107 mg/dL (70-99) Calcium Level 8.4 mg/dL (8.5-10.1) 8.0 mg/dL (8.5-10.1) Total Bilirubin 1.0 mg/dL (0.2-1.0) 0.9 mg/dL (0.2-1.0) Aspartate Amino Transf (AST/SGOT) 38 U/L (15-37) 54 U/L (15-37) Alanine Aminotransferase (ALT/SGPT) 37 U/L (16-63) 34 U/L (16-63) Alkaline Phosphatase 50 U/L (46-116) 60 U/L (46-116) Total Protein 5.8 g/dL (6.4-8.2) 5.4 g/dL (6.4-8.2) Albumin 2.4 g/dL (3.4-5.0) 2.2 g/dL (3.4-5.0) Albumin/Globulin Ratio 0.7 (1.0-1.7) 0.7 (1.0-1.7) Laboratory Tests Test 12/29/18 03:00 White Blood Count 19.4 x10^3/uL (4.0-11.0) Red Blood Count 4.24 x10^6/uL (4.30-5.70) Hemoglobin 13.0 g/dL (13.0-17.5) Hematocrit 39.0 % (39.0-53.0) Mean Corpuscular Volume 92 fL (79-100) Mean Corpuscular Hemoglobin 31 pg (25-35) Mean Corpuscular Hemoglobin Concent 33 g/dL (31-37) Red Cell Distribution Width 13.5 % (11.5-14.5) Platelet Count 145 x10^3/uL (140-400) Neutrophils (%) (Auto) 81 % (31-73) Lymphocytes (%) (Auto) 10 % (24-48) Monocytes (%) (Auto) 9 % (0-9) Eosinophils (%) (Auto) 0 % (0-3) Basophils (%) (Auto) 0 % (0-3) Neutrophils # (Auto) 15.7 x10^3uL (1.8-7.7) Lymphocytes # (Auto) 1.9 x10^3/uL (1.0-4.8) Monocytes # (Auto) 1.8 x10^3/uL (0.0-1.1) Eosinophils # (Auto) 0.0 x10^3/uL (0.0-0.7) Basophils # (Auto) 0.0 x10^3/uL (0.0-0.2) Sodium Level 130 mmol/L (136-145) Potassium Level 4.3 mmol/L (3.5-5.1) Chloride Level 97 mmol/L (98-107) Carbon Dioxide Level 22 mmol/L (21-32) Anion Gap 11 (6-14) Blood Urea Nitrogen 42 mg/dL (8-26) Creatinine 1.7 mg/dL (0.7-1.3) Estimated GFR (Cockcroft-Gault) 38.7 BUN/Creatinine Ratio 25 (6-20) Glucose Level 107 mg/dL (70-99) Calcium Level 8.0 mg/dL (8.5-10.1) Total Bilirubin 0.9 mg/dL (0.2-1.0) Aspartate Amino Transf (AST/SGOT) 54 U/L (15-37) Alanine Aminotransferase (ALT/SGPT) 34 U/L (16-63) Alkaline Phosphatase 60 U/L (46-116) Total Protein 5.4 g/dL (6.4-8.2) Albumin 2.2 g/dL (3.4-5.0) Albumin/Globulin Ratio 0.7 (1.0-1.7) Assessment/Plan left hydro, minimal. luts. will get ct a/p. Flomax for luts. no need for cath, pvr minimal. Past Medical History Past Medical History: CVA, GERD, High Cholesterol, Hypertension Past Surgical History: Tonsillectomy, Other Additional Past Surgical Histo: HERNIA REPAIR,THROAT EstevanX RISHI WEBER MD Dec 29, 2018 12:15
[2018-12-29 12:20] LABS: BILIRUBIN,URINE SMALL (NEG); CLARITY,URINE CLOUDY; COLOR,URINE OTHER; NITRITE,URINE NEGATIVE (NEG); PH,URINE 5.5; PROTEIN,URINE 30 mg/dL (NEG-TRACE); UROBILINOGEN,URINE 0.2 mg/dL (0.2 mg/dL)
[2018-12-29 12:36] LABS: BACTERIA,URINE 0 /HPF (0-FEW); RBC,URINE >40 /HPF (0-2); WBC,URINE OCC /HPF (0-4)
[2018-12-29] MEDS: TAMSULOSIN 0.4 MG CAP.ER.24H. PO SCH (14:01)
[2018-12-29] MEDS: IV NORMAL SALINE 1000ML BAG 1,000 ML IV SCH (14:02)
--- NOTE | 2018-12-29 15:45 | NUR ---
Received call from Dr Esquivel in radiology re: CT abdomen and pelvis. Results called as follows: Acute cholecystitis with stone in gallbladder neck. Dr Callejas notified. Received orders to consult GI and Surgery. Both notified of consults through answering service. Spoke to Dr Bueno. He will review records and possibly surgery in am.
--- NOTE | 2018-12-29 15:53 | RAD ---
Examination: CT ABDOMEN PELVIS WO CONTRAST History: left hydro Comparison/Correlation: None Findings: Axial images of the abdomen and pelvis were obtained without contrast. Right costophrenic sulcus linear atelectasis or scarring noted. Minimal right pleural effusion. Very small left pleural effusion. Unenhanced liver, spleen, pancreas, and adrenal glands are normal. Gallbladder is distended with pericholecystic stranding. Dependent calculi along the posterior wall of the gallbladder noted. Calculus at the gallbladder neck an cystic duct junction measuring 1 cm in diameter is present. No radiopaque right collecting system calculi. Left hydronephrosis which appears represent ureteropelvic junction obstruction is present. Possibility of parapelvic cysts also being present is raised. There is no perinephric stranding. 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 Diverticulosis of the colon is present. No extraluminal gas. No loculated collections. No bowel obstruction. Urinary bladder is unremarkable. Bony structures are unremarkable for age. Impression: Acute cholecystitis. Obstructive duct at the junction of the gallbladder neck and cystic duct appears to be present. Cholelithiasis. Results reported to patient's nurse Ellie on 12/29/2018 at 3:50 PM. Saccular infrarenal abdominal aortic aneurysm. 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 PQRS Compliance Statement: One or more of the following individualized dose reduction techniques were utilized for this examination: 1. Automated exposure control 2. Adjustment of the mA and/or kV according to patient size 3. Use of iterative reconstruction technique Electronically signed by: Bryan Esquivel MD (12/29/2018 3:51 PM) [facility] [id number]
[2018-12-29] MEDS ORDERED: PIP/TAZO PER PHARMACY MC PRN (16:00)
[2018-12-29] MEDS: ACETAMINOPHEN 500 MG TABLET PO PRN (16:10)
--- NOTE | 2018-12-29 16:35 | NUR ---
Received call from Dr Bueno. Pt now NPO and Dr Bueno coming to see pt. Fever was 101. Now 101.7. Pt has had tylenol and cool cloths applied. Family and pt updated on POC.
--- NOTE | 2018-12-29 17:10 | NUR ---
Dr Bueno here to see pt. Call placed to Dr Rust to discuss CT results. Waiting for call back. Dr Bueno ask to speak to Dr Rust when he calls. Answering service notified of Dr Buenos request. Dr Bueno will discuss with radiology about a possible drain.
--- NOTE | 2018-12-29 17:32 | NUR ---
Dr Rust did return call and spoke to Dr Bueno. New orders will be received.
--- NOTE | 2018-12-29 17:42 | PDOC2 ---
CONSULT Date of Consult Date of Consult DATE: 12/29/18 TIME: 17:33 Reason for Consult Reason for Consult: cholelithiasis with acute cholecystitis Referring Physician Referring Physician: Dr Callejas Identification/Chief Complaint Chief Complaint fever Source Source: Chart review, Patient History of Present Illness Reason for Visit: Mr Malik is an 83 yo gentleman admitted five days ago with influenza A and elevated troponin. His WBC went up yesterday. An abdominal US was done showing a left hydronephrosis and cholelithiasis (without evidence of cholecystitis). Urology consult was obtained and a CT abd/pelvis was ordered. This was done earlier and again demonstrated cholelithiasis now with changes of acute cholecystitis (pericholecystic stranding, GB distention) Past Medical History Cardiovascular: HTN, Hyperlipidemia, Other (PSVT) Pulmonary: No pertinent hx CENTRAL NERVOUS SYSTEM: CVA GI: GERD Heme/Onc: No pertinent hx Hepatobiliary: No pertinent hx Psych: No pertinent hx Infectious disease: No pertinent hx Renal/: Benign prostatic enlarg. Endocrine: No pertinent hx Past Surgical History Past Surgical History: No pertinent history Family History Family History: Hypertension Social History No ALCOHOL: none Drugs: None Lives: with Family Current Problem List Problem List Problems Medical Problems: (1) Elevated troponin Status: Acute (2) Influenza A Status: Acute Current Medications Current Medications Current Medications Acetaminophen (Tylenol) 1,000 mg 1X ONCE PO Last administered on 12/24/18 19: 30; Start 12/24/18 at 19:30; Stop 12/24/18 at 19:33; Status DC Sodium Chloride 1,000 ml @ 125 mls/hr 1X ONCE IV Last administered on 19:30; Start 12/24/18 at 19:30; Stop 12/25/18 at 03:29; Status DC Oseltamivir Phosphate (Tamiflu) 75 mg 1X ONCE PO Last administered on 20:00; Start 12/24/18 at 20:00; Stop 12/24/18 at 20:01; Status DC Aspirin (Elier Aspirin) 325 mg 1X ONCE PO Last administered on 12/24/18 21:58 ; Start 12/24/18 at 22:00; Stop 12/24/18 at 22:01; Status DC Oseltamivir Phosphate (Tamiflu) 30 mg BID PO Last administered on 12/29/18at 11: 00; Start 12/25/18 at 09:00; Stop 12/29/18 at 09:01; Status DC Aspirin (Ecotrin) 325 mg [id number] PO Last administered on 12/29/18 11:00; Start 12/25/18 at 12:00 Atorvastatin Calcium (Lipitor) 40 mg QHS PO Last administered on 12/28/18 20:15 ; Start 12/25/18 at 21:00 Metoprolol Succinate (Toprol Xl) 25 mg DAILY PO Last administered on 12/29/18 11:00; Start 12/25/18 at 12:00 Vitamin D (Vitamin D3) 2,000 unit DAILY PO Last administered on 12/29/18 11:01 ; Start 12/25/18 at 12:00 Losartan Potassium (Cozaar) 100 mg DAILY PO Last administered on 12/28/18 09:18 ; Start 12/25/18 at 12:00; Stop 12/28/18 at 13:46; Status DC Multivitamins (Thera M Plus) 1 tab DAILY PO Last administered on 12/29/18 11:00 ; Start 12/25/18 at 12:00 Pantoprazole Sodium (Protonix) 40 mg DAILYAC PO Last administered on 12/29/18 11:01; Start 12/25/18 at 12:00 Calcium Carbonate/ Glycine (Tums) 500 mg PRN AFTMEALHC PRN PO INDIGESTION Last administered on 12/26/18 08:34; Start 12/25/18 at 22:15 Trazodone HCl (Desyrel) 50 mg PRN QHS PRN PO INSOMNIA Last administered on 20:16; Start 12/26/18 at 21:00 Amoxicillin/ Clavulanate Potassium (Augmentin 875/ 125mg) 1 tab BID PO Last administered on 12/29/18 11:01; Start 12/28/18 at 12:00; Stop 12/29/18 at 16:00; Status DC Sodium Chloride 1,000 ml @ 75 mls/hr [id number] IV ; Start 12/28/18 at 12:00; Stop 12/29/18 at 13:13; Status DC Lactobacillus Rhamnosus (Culturelle) 1 cap BID PO Last administered on 3/9/ 19at 11:00; Start 12/28/18 at 14:00 Acetaminophen (Tylenol) 500 mg PRN Q6HRS PRN PO MILD PAIN / TEMP Last administered on 12/29/18at 16:10; Start 12/28/18 at 20:15 Sodium Chloride 1,000 ml @ 75 mls/hr [id number] IV Last administered on 12/29/18 14:02; Start 12/29/18 at 11:30 Tamsulosin HCl (Flomax) 0.4 mg DAILY PO Last administered on 12/29/18at 14:01; Start 12/29/18 at 13:00 Piperacillin Sod/ Tazobactam Sod (Zosyn Per Pharmacy) 1 each PRN DAILY PRN MC SEE COMMENTS; Start 12/29/18 at 16:00 Piperacillin Sod/ Tazobactam Sod 2.25 gm/Sodium Chloride 50 ml @ 100 mls/hr Q6HRS IV ; Start 12/29/18 at 17:00 Active Scripts Active Atorvastatin Calcium 40 Mg Tablet 40 Mg PO QHS 30 Days Aspirin Ec (Aspirin) 325 Mg Tablet.dr 325 Mg PO [id number] 30 Days Reported Tamiflu (Oseltamivir Phosphate) 30 Mg Capsule 1 Cap PO BID Vitamin B-12 (Cyanocobalamin (Vitamin B-12)) 1,000 Mcg Tablet 1 Tab PO DAILY Metoprolol Succinate ( Xl ) (Metoprolol Succinate) 25 Mg Tab.er.24h 1 Tab PO DAILY Losartan Potassium 100 Mg Tablet 100 Mg PO DAILY Multivitamins (Multivitamin) 1 Each Tablet 1 Tab PO DAILY Vitamin D (Cholecalciferol (Vitamin D3)) 2,000 Unit Capsule 1 Cap PO DAILY Allergies Allergies: Coded Allergies: iodine (Verified Allergy, Intermediate, Rash, 08/12/15) iron (Verified Allergy, Intermediate, Rash, 09/05/15) INJECTABLE iron dextran complex (Verified Allergy, Intermediate, Rash, 09/05/15) ROS General: YES: Chills, Other (fever) Genitourinary: YES Retention, YES Urgency Neurological: Yes Gait Disturbance Physical Exam General: Alert HEENT: Atraumatic, Other (face is flushed) Lungs: Normal air movement Heart: Regular rate Abdomen: Soft, Other (minimally TTP in the RUQ) Skin: Other (warm) Vitals VITALS Vital Signs Date Time Temp Pulse Resp B/P (MAP) Pulse Ox O2 Delivery O2 Flow Rate FiO2 12/29/18 15:45 94 Nasal Cannula 3.0 12/29/18 15:30 101.0 87 32 138/60 (86) 101.0 T max 102 Labs Labs Laboratory Tests Test 12/28/18 02:30 12/29/18 03:00 12/29/18 11:45 White Blood Count 16.5 x10^3/uL (4.0-11.0) 19.4 x10^3/uL (4.0-11.0) Red Blood Count 4.28 x10^6/uL (4.30-5.70) 4.24 x10^6/uL (4.30-5.70) Hemoglobin 12.8 g/dL (13.0-17.5) 13.0 g/dL (13.0-17.5) Hematocrit 39.1 % (39.0-53.0) 39.0 % (39.0-53.0) Mean Corpuscular Volume 92 fL (79-100) 92 fL (79-100) Mean Corpuscular Hemoglobin 30 pg (25-35) 31 pg (25-35) Mean Corpuscular Hemoglobin Concent 33 g/dL (31-37) 33 g/dL (31-37) Red Cell Distribution Width 13.2 % (11.5-14.5) 13.5 % (11.5-14.5) Platelet Count 130 x10^3/uL (140-400) 145 x10^3/uL (140-400) Neutrophils (%) (Auto) 80 % (31-73) 81 % (31-73) Lymphocytes (%) (Auto) 10 % (24-48) 10 % (24-48) Monocytes (%) (Auto) 10 % (0-9) 9 % (0-9) Eosinophils (%) (Auto) 0 % (0-3) 0 % (0-3) Basophils (%) (Auto) 0 % (0-3) 0 % (0-3) Neutrophils # (Auto) 13.2 x10^3uL (1.8-7.7) 15.7 x10^3uL (1.8-7.7) Lymphocytes # (Auto) 1.6 x10^3/uL (1.0-4.8) 1.9 x10^3/uL (1.0-4.8) Monocytes # (Auto) 1.7 x10^3/uL (0.0-1.1) 1.8 x10^3/uL (0.0-1.1) Eosinophils # (Auto) 0.0 x10^3/uL (0.0-0.7) 0.0 x10^3/uL (0.0-0.7) Basophils # (Auto) 0.0 x10^3/uL (0.0-0.2) 0.0 x10^3/uL (0.0-0.2) Sodium Level 133 mmol/L (136-145) 130 mmol/L (136-145) Potassium Level 4.0 mmol/L (3.5-5.1) 4.3 mmol/L (3.5-5.1) Chloride Level 99 mmol/L (98-107) 97 mmol/L (98-107) Carbon Dioxide Level 23 mmol/L (21-32) 22 mmol/L (21-32) Anion Gap 11 (6-14) 11 (6-14) Blood Urea Nitrogen 35 mg/dL (8-26) 42 mg/dL (8-26) Creatinine 2.1 mg/dL (0.7-1.3) 1.7 mg/dL (0.7-1.3) Estimated GFR (Cockcroft-Gault) 30.3 38.7 BUN/Creatinine Ratio 17 (6-20) 25 (6-20) Glucose Level 114 mg/dL (70-99) 107 mg/dL (70-99) Calcium Level 8.4 mg/dL (8.5-10.1) 8.0 mg/dL (8.5-10.1) Total Bilirubin 1.0 mg/dL (0.2-1.0) 0.9 mg/dL (0.2-1.0) Aspartate Amino Transf (AST/SGOT) 38 U/L (15-37) 54 U/L (15-37) Alanine Aminotransferase (ALT/SGPT) 37 U/L (16-63) 34 U/L (16-63) Alkaline Phosphatase 50 U/L (46-116) 60 U/L (46-116) Total Protein 5.8 g/dL (6.4-8.2) 5.4 g/dL (6.4-8.2) Albumin 2.4 g/dL (3.4-5.0) 2.2 g/dL (3.4-5.0) Albumin/Globulin Ratio 0.7 (1.0-1.7) 0.7 (1.0-1.7) Urine Collection Type Unknown Urine Color Other Urine Clarity Cloudy Urine pH 5.5 Urine Specific [place] 1.020 Urine Protein 30 mg/dL (NEG-TRACE) Urine Glucose (UA) Negative mg/dL (NEG) Urine Ketones (Stick) Trace mg/dL (NEG) Urine Blood Large (NEG) Urine Nitrite Negative (NEG) Urine Bilirubin Small (NEG) Urine Urobilinogen Dipstick 0.2 mg/dL (0.2 mg/dL) Urine Leukocyte Esterase Moderate (NEG) Urine RBC >40 /HPF (0-2) Urine WBC Occ /HPF (0-4) Urine Bacteria 0 /HPF (0-FEW) Laboratory Tests Test 12/29/18 03:00 12/29/18 11:45 White Blood Count 19.4 x10^3/uL (4.0-11.0) Red Blood Count 4.24 x10^6/uL (4.30-5.70) Hemoglobin 13.0 g/dL (13.0-17.5) Hematocrit 39.0 % (39.0-53.0) Mean Corpuscular Volume 92 fL (79-100) Mean Corpuscular Hemoglobin 31 pg (25-35) Mean Corpuscular Hemoglobin Concent 33 g/dL (31-37) Red Cell Distribution Width 13.5 % (11.5-14.5) Platelet Count 145 x10^3/uL (140-400) Neutrophils (%) (Auto) 81 % (31-73) Lymphocytes (%) (Auto) 10 % (24-48) Monocytes (%) (Auto) 9 % (0-9) Eosinophils (%) (Auto) 0 % (0-3) Basophils (%) (Auto) 0 % (0-3) Neutrophils # (Auto) 15.7 x10^3uL (1.8-7.7) Lymphocytes # (Auto) 1.9 x10^3/uL (1.0-4.8) Monocytes # (Auto) 1.8 x10^3/uL (0.0-1.1) Eosinophils # (Auto) 0.0 x10^3/uL (0.0-0.7) Basophils # (Auto) 0.0 x10^3/uL (0.0-0.2) Sodium Level 130 mmol/L (136-145) Potassium Level 4.3 mmol/L (3.5-5.1) Chloride Level 97 mmol/L (98-107) Carbon Dioxide Level 22 mmol/L (21-32) Anion Gap 11 (6-14) Blood Urea Nitrogen 42 mg/dL (8-26) Creatinine 1.7 mg/dL (0.7-1.3) Estimated GFR (Cockcroft-Gault) 38.7 BUN/Creatinine Ratio 25 (6-20) Glucose Level 107 mg/dL (70-99) Calcium Level 8.0 mg/dL (8.5-10.1) Total Bilirubin 0.9 mg/dL (0.2-1.0) Aspartate Amino Transf (AST/SGOT) 54 U/L (15-37) Alanine Aminotransferase (ALT/SGPT) 34 U/L (16-63) Alkaline Phosphatase 60 U/L (46-116) Total Protein 5.4 g/dL (6.4-8.2) Albumin 2.2 g/dL (3.4-5.0) Albumin/Globulin Ratio 0.7 (1.0-1.7) Urine Collection Type Unknown Urine Color Other Urine Clarity Cloudy Urine pH 5.5 Urine Specific [place] 1.020 Urine Protein 30 mg/dL (NEG-TRACE) Urine Glucose (UA) Negative mg/dL (NEG) Urine Ketones (Stick) Trace mg/dL (NEG) Urine Blood Large (NEG) Urine Nitrite Negative (NEG) Urine Bilirubin Small (NEG) Urine Urobilinogen Dipstick 0.2 mg/dL (0.2 mg/dL) Urine Leukocyte Esterase Moderate (NEG) Urine RBC >40 /HPF (0-2) Urine WBC Occ /HPF (0-4) Urine Bacteria 0 /HPF (0-FEW) Images Images CT scan done earlier today is reviewed Assessment/Plan Assessment/Plan Influenza A elevated troponin cholelithiasis with acute cholecystitis 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
[2018-12-29] MEDS: PIPERACILLIN/TAZOBACTAM 2.25 GM in IV NORMAL SALINE 50ML 50 ML IV SCH (17:48)
[2018-12-29 17:59] LABS: PROTHROMBIN TIME PATIENT 14.4 SEC (11.7-14.0)
[2018-12-29] MEDS ORDERED: LIDOCAINE WITH 8.4% SOD BICARB 3 ML DISP.SYRIN. ONE (18:42)
[2018-12-29] MEDS ORDERED: IOHEXOL 300 MG/ML 100ML VIAL. ONE (18:43)
[2018-12-29] MEDS ORDERED: HYDROCORTISONE SOD SUCC/PF 250 MG/2 ML VIAL. ONE (18:48)
[2018-12-29] MEDS ORDERED: fentaNYL PF VIAL 100 MCG/2 ML VIAL ONE (18:49)
[2018-12-29] MEDS ORDERED: MIDAZOLAM HCL/PF 2 MG/2 ML VIAL. ONE (18:49)
[2018-12-29] MEDS ORDERED: diphenhydrAMINE 50 MG/ML VIAL ONE (18:49)
[2018-12-29] MEDS ORDERED: IODIXANOL 320 MG/ML 100 ML VIAL. ONE (18:51)
[2018-12-29] MEDS ORDERED: HYDROcodone/APAP 5/325MG 1 TAB TABLET PO PRN (19:15)
[2018-12-29] MEDS ORDERED: IODIXANOL 320 MG/ML 100 ML VIAL. IART ONE (19:45)
[2018-12-29] MEDS ORDERED: MIDAZOLAM HCL/PF 2 MG/2 ML VIAL. IV ONE (19:45)
[2018-12-29] MEDS ORDERED: LIDOCAINE WITH 8.4% SOD BICARB 3 ML DISP.SYRIN. IJ ONE (19:45)
[2018-12-29] MEDS ORDERED: diphenhydrAMINE 50 MG/ML VIAL IVP ONE (19:45)
[2018-12-29] MEDS ORDERED: HYDROCORTISONE SOD SUCC/PF 250 MG/2 ML VIAL. IV ONE (19:45)
--- NOTE | 2018-12-29 19:48 | NUR ---
Pt to IR for cholecystectomy drain, pt tolerated well, VSS. Drain to R upper abdomen with bulb drain in place. DARVIN RN
--- NOTE | 2018-12-29 19:48 | PDOC ---
Exam Construction Code Administrator Construction Code Administrator SENAIT Pre-Procedure Diagnosis Pre-Procedure Diagnosis Cholecystitis Post-Procedure Diagnosis Post-Procedure Diagnosis same Procedure Performed Procedure Performed Sonographic/Fluoroscopic guided percutaneous cholecystostomy Type of Anesthesia Type of Anesthesia local and moderate sedation Estimated Blood Loss EBL: trace Specimens Specimans 120ml thin reddish green fluid Drain/Tubes Drains/Tubes 10 Fr cope loop drain Condition of Patient Condition of Patient stable JIMBO SAPP Jr, MD Dec 29, 2018 19:48
[2018-12-29] MEDS ORDERED: fentaNYL PF VIAL 100 MCG/2 ML VIAL IV ONE (20:00)
--- NOTE | 2018-12-29 20:00 | RAD ---
Title: Sonographic and fluoroscopic guided percutaneous cholecystostomy Indication: Acute cholecystitis and currently considered a poor surgical candidate. Percutaneous cholecystostomy requested. Anesthesia: Intraservice conscious sedation was obtained with Versed and fentanyl from 1923 hours to 1934 hours blank. Continuous cardiopulmonary monitoring was performed throughout the procedure by trained independent observer. Local anesthesia was obtained with 1% lidocaine. Sterile technique: The procedure was performed utilizing all elements of maximal sterile barrier technique which included: Cap, mask, sterile gown, large sterile drape, and antiseptic hand hygiene, site preparation for cutaneous antisepsis with 2% chlorhexidine or current approved guideline alternative. If ultrasound guidance was utilized, sterile ultrasound techniques were followed including a sterile probe cover. DAP: 15 Gycm^2 Technique/findings: After obtaining informed consent the patient was placed on the angiography table in a supine position. The patient was intravenously administered at perioperative antibiotic. Utilizing sonographic guidance, the gallbladder was somewhat difficult to visualize secondary to its high location under the rib cage. Utilizing real-time sonography, the gallbladder was percutaneously accessed utilizing a 21-gauge needle. All attempts were made to avoid bowel loops. Ultrasound Images confirm placement of the needle in the gallbladder lumen. All ultrasound images were sent to the PACS to become part of the patient's permanent medical record. The needle was exchanged under fluoroscopic guidance over an 018 wire for the 5 Burmese transitional sheath. The transitional sheath was then exchanged over an 035 Amplatz guidewire for a 10 Burmese cope loop drain. The cope loop was formed within the gallbladder lumen. Approximately 120 mL of thin reddish-green bile was drained. The drainage catheter was then secured at the skin exit site and placed to suction bulb drainage. The patient tolerated the procedure well and after appropriate monitoring was sent to the floor in stable condition. Impression: Sonographic and fluoroscopic guided placement of 10 Burmese percutaneous cholecystostomy drain. Approximately 120 mL of thin reddish-green bile was aspirated. The drainage catheter was then placed to suction bulb drainage. Access of the gallbladder was somewhat difficult secondary to its high location lying underneath the rib cage.
[2018-12-29] MEDS: ATORVASTATIN CALCIUM 40 MG TABLET. PO SCH (21:00)
--- NOTE | 2018-12-29 22:00 | NUR ---
Pt remains too drowsy to take po meds at this time s/p karie drain placement. VS remain stable. Call light within reach. Bed alarm is on. Drain site is C,D,I with mostly serous sanguous drainage in bulb along with small amt of purulent drainage. Will monitor.
[2018-12-30] MEDS: PIPERACILLIN/TAZOBACTAM 2.25 GM in IV NORMAL SALINE 50ML 50 ML IV SCH ×4 (01:25→17:34)
[2018-12-30 03:21] VITALS: BP 135/67
[2018-12-30 05:45] LABS: BASO % 0 % (0-3); EOS % 0 % (0-3); HEMATOCRIT 39.5 % (39.0-53.0); HEMOGLOBIN 13.1 g/dL (13.0-17.5); LYMPH # 0.5 x10^3/uL (1.0-4.8); LYMPH % 2 % (24-48); MEAN CORPUSCULAR HEMOGLOBIN 31 pg (25-35); MEAN CORPUSCULAR HGB CONC 33 g/dL (31-37); MEAN CORPUSCULAR VOLUME 92 fL (79-100); MONO # 1.4 x10^3/uL (0.0-1.1); MONO % 7 % (0-9); NEUT # 17.5 x10^3uL (1.8-7.7); NEUT % 91 % (31-73); PLATELET COUNT 171 x10^3/uL (140-400); RED CELL DISTRIBUTION WIDTH 13.6 % (11.5-14.5); WHITE BLOOD COUNT 19.4 x10^3/uL (4.0-11.0)
[2018-12-30 06:10] LABS: ALBUMIN 2.1 g/dL (3.4-5.0); ALBUMIN/GLOBULIN RATIO 0.5 (1.0-1.7); CALCIUM 8.4 mg/dL (8.5-10.1); CREATININE 1.6 mg/dL (0.7-1.3); GFR 41.5; POTASSIUM 4.2 mmol/L (3.5-5.1); TOTAL BILIRUBIN 0.8 mg/dL (0.2-1.0); TOTAL PROTEIN 6.2 g/dL (6.4-8.2)
[2018-12-30 07:10] VITALS: BP 111/61
[2018-12-30] MEDS: TAMSULOSIN 0.4 MG CAP.ER.24H. PO SCH (08:39)
[2018-12-30] MEDS: CHOLECALCIFEROL (VITAMIN D3) 1,000 UNIT TABLET PO SCH (08:39)
[2018-12-30] MEDS: MULTIVITAMIN with MINERAL TABLET. PO SCH (08:39)
[2018-12-30] MEDS: ASPIRIN ENTERIC COATED 325 MG TABLET.DR. PO SCH (08:39)
[2018-12-30] MEDS: LACTOBACILLUS RHAMNOSUS GG 1 CAPSULE. PO SCH ×2 (08:39→22:50)
[2018-12-30] MEDS: IV NORMAL SALINE 1000ML BAG 1,000 ML IV SCH ×2 (08:39→13:18)
[2018-12-30] MEDS: PANTOPRAZOLE 40 MG TABLET.DR. PO SCH (08:40)
[2018-12-30] MEDS: METOPROLOL SUCC 24HR ER 25 MG TAB.ER.24H. PO SCH (08:40)
--- NOTE | 2018-12-30 09:41 | PDOC ---
SURGICAL PROGRESS NOTE Subjective has some pain around the drain sight when he coughs otherwise no c/o Vital Signs Vital Signs Date Time Temp Pulse Resp B/P (MAP) Pulse Ox O2 Delivery O2 Flow Rate FiO2 12/30/18 08:40 20 111/61 12/30/18 08:00 Nasal Cannula 2.0 12/30/18 07:10 98.3 20 95 98.3 I&O Intake and Output 12/30/18 07:00 Intake Total 770 ml Output Total 1445 ml Balance -675 ml Intake Oral 0 ml IV Total 770 ml Output Urine Total 1275 ml Drainage Total 170 ml # Bowel Movements 2 PATIENT HAS A MIRELES: No General: Alert, No acute distress Lungs: Normal air movement Abdomen: Soft, Other (CCT with light bilous drainage in bulb) Labs Laboratory Tests Test 12/29/18 03:00 12/29/18 11:45 12/29/18 17:37 12/30/18 05:00 White Blood Count 19.4 x10^3/uL (4.0-11.0) 19.4 x10^3/uL (4.0-11.0) Red Blood Count 4.24 x10^6/uL (4.30-5.70) 4.30 x10^6/uL (4.30-5.70) Hemoglobin 13.0 g/dL (13.0-17.5) 13.1 g/dL (13.0-17.5) Hematocrit 39.0 % (39.0-53.0) 39.5 % (39.0-53.0) Mean Corpuscular Volume 92 fL (79-100) 92 fL (79-100) Mean Corpuscular Hemoglobin 31 pg (25-35) 31 pg (25-35) Mean Corpuscular Hemoglobin Concent 33 g/dL (31-37) 33 g/dL (31-37) Red Cell Distribution Width 13.5 % (11.5-14.5) 13.6 % (11.5-14.5) Platelet Count 145 x10^3/uL (140-400) 171 x10^3/uL (140-400) Neutrophils (%) (Auto) 81 % (31-73) 91 % (31-73) Lymphocytes (%) (Auto) 10 % (24-48) 2 % (24-48) Monocytes (%) (Auto) 9 % (0-9) 7 % (0-9) Eosinophils (%) (Auto) 0 % (0-3) 0 % (0-3) Basophils (%) (Auto) 0 % (0-3) 0 % (0-3) Neutrophils # (Auto) 15.7 x10^3uL (1.8-7.7) 17.5 x10^3uL (1.8-7.7) Lymphocytes # (Auto) 1.9 x10^3/uL (1.0-4.8) 0.5 x10^3/uL (1.0-4.8) Monocytes # (Auto) 1.8 x10^3/uL (0.0-1.1) 1.4 x10^3/uL (0.0-1.1) Eosinophils # (Auto) 0.0 x10^3/uL (0.0-0.7) 0.0 x10^3/uL (0.0-0.7) Basophils # (Auto) 0.0 x10^3/uL (0.0-0.2) 0.0 x10^3/uL (0.0-0.2) Sodium Level 130 mmol/L (136-145) 136 mmol/L (136-145) Potassium Level 4.3 mmol/L (3.5-5.1) 4.2 mmol/L (3.5-5.1) Chloride Level 97 mmol/L (98-107) 101 mmol/L (98-107) Carbon Dioxide Level 22 mmol/L (21-32) 24 mmol/L (21-32) Anion Gap 11 (6-14) 11 (6-14) Blood Urea Nitrogen 42 mg/dL (8-26) 36 mg/dL (8-26) Creatinine 1.7 mg/dL (0.7-1.3) 1.6 mg/dL (0.7-1.3) Estimated GFR (Cockcroft-Gault) 38.7 41.5 BUN/Creatinine Ratio 25 (6-20) 23 (6-20) Glucose Level 107 mg/dL (70-99) 167 mg/dL (70-99) Calcium Level 8.0 mg/dL (8.5-10.1) 8.4 mg/dL (8.5-10.1) Total Bilirubin 0.9 mg/dL (0.2-1.0) 0.8 mg/dL (0.2-1.0) Aspartate Amino Transf (AST/SGOT) 54 U/L (15-37) 48 U/L (15-37) Alanine Aminotransferase (ALT/SGPT) 34 U/L (16-63) 42 U/L (16-63) Alkaline Phosphatase 60 U/L (46-116) 89 U/L (46-116) Total Protein 5.4 g/dL (6.4-8.2) 6.2 g/dL (6.4-8.2) Albumin 2.2 g/dL (3.4-5.0) 2.1 g/dL (3.4-5.0) Albumin/Globulin Ratio 0.7 (1.0-1.7) 0.5 (1.0-1.7) Urine Collection Type Unknown Urine Color Other Urine Clarity Cloudy Urine pH 5.5 Urine Specific [place] 1.020 Urine Protein 30 mg/dL (NEG-TRACE) Urine Glucose (UA) Negative mg/dL (NEG) Urine Ketones (Stick) Trace mg/dL (NEG) Urine Blood Large (NEG) Urine Nitrite Negative (NEG) Urine Bilirubin Small (NEG) Urine Urobilinogen Dipstick 0.2 mg/dL (0.2 mg/dL) Urine Leukocyte Esterase Moderate (NEG) Urine RBC >40 /HPF (0-2) Urine WBC Occ /HPF (0-4) Urine Bacteria 0 /HPF (0-FEW) Prothrombin Time 14.4 SEC (11.7-14.0) Prothromb Time International Ratio 1.2 (0.8-1.1) Laboratory Tests Test 12/29/18 11:45 12/29/18 17:37 12/30/18 05:00 Urine Collection Type Unknown Urine Color Other Urine Clarity Cloudy Urine pH 5.5 Urine Specific [place] 1.020 Urine Protein 30 mg/dL (NEG-TRACE) Urine Glucose (UA) Negative mg/dL (NEG) Urine Ketones (Stick) Trace mg/dL (NEG) Urine Blood Large (NEG) Urine Nitrite Negative (NEG) Urine Bilirubin Small (NEG) Urine Urobilinogen Dipstick 0.2 mg/dL (0.2 mg/dL) Urine Leukocyte Esterase Moderate (NEG) Urine RBC >40 /HPF (0-2) Urine WBC Occ /HPF (0-4) Urine Bacteria 0 /HPF (0-FEW) Prothrombin Time 14.4 SEC (11.7-14.0) Prothromb Time International Ratio 1.2 (0.8-1.1) White Blood Count 19.4 x10^3/uL (4.0-11.0) Red Blood Count 4.30 x10^6/uL (4.30-5.70) Hemoglobin 13.1 g/dL (13.0-17.5) Hematocrit 39.5 % (39.0-53.0) Mean Corpuscular Volume 92 fL (79-100) Mean Corpuscular Hemoglobin 31 pg (25-35) Mean Corpuscular Hemoglobin Concent 33 g/dL (31-37) Red Cell Distribution Width 13.6 % (11.5-14.5) Platelet Count 171 x10^3/uL (140-400) Neutrophils (%) (Auto) 91 % (31-73) Lymphocytes (%) (Auto) 2 % (24-48) Monocytes (%) (Auto) 7 % (0-9) Eosinophils (%) (Auto) 0 % (0-3) Basophils (%) (Auto) 0 % (0-3) Neutrophils # (Auto) 17.5 x10^3uL (1.8-7.7) Lymphocytes # (Auto) 0.5 x10^3/uL (1.0-4.8) Monocytes # (Auto) 1.4 x10^3/uL (0.0-1.1) Eosinophils # (Auto) 0.0 x10^3/uL (0.0-0.7) Basophils # (Auto) 0.0 x10^3/uL (0.0-0.2) Sodium Level 136 mmol/L (136-145) Potassium Level 4.2 mmol/L (3.5-5.1) Chloride Level 101 mmol/L (98-107) Carbon Dioxide Level 24 mmol/L (21-32) Anion Gap 11 (6-14) Blood Urea Nitrogen 36 mg/dL (8-26) Creatinine 1.6 mg/dL (0.7-1.3) Estimated GFR (Cockcroft-Gault) 41.5 BUN/Creatinine Ratio 23 (6-20) Glucose Level 167 mg/dL (70-99) Calcium Level 8.4 mg/dL (8.5-10.1) Total Bilirubin 0.8 mg/dL (0.2-1.0) Aspartate Amino Transf (AST/SGOT) 48 U/L (15-37) Alanine Aminotransferase (ALT/SGPT) 42 U/L (16-63) Alkaline Phosphatase 89 U/L (46-116) Total Protein 6.2 g/dL (6.4-8.2) Albumin 2.1 g/dL (3.4-5.0) Albumin/Globulin Ratio 0.5 (1.0-1.7) Problem List Problems Medical Problems: (1) Elevated troponin Status: Acute (2) Influenza A Status: Acute Assessment/Plan cholelithiasis, acute cholecystitis s/p IR placement of CCT afebrile WBC still up continue abx Cepacol per pt request KEESHA POLLACK MD Dec 30, 2018 09:41
[2018-12-30] MEDS ORDERED: BENZOCAINE/MENTHOL LOZENGE. PO PRN (09:45)
--- NOTE | 2018-12-30 09:52 | PDOC2 ---
CONSULT Date of Consult Date of Consult DATE: 12/30/18 TIME: 09:43 Reason for Consult Reason for Consult: cholecystitis on CT scan History of Present Illness Reason for Visit: 83 yo male admitted with SOA weakness, found to have + flu A, during evaluation and CT which showed change in gallladder with inflammation and stone in neck of gallbladder, suggestive of acute cholecystitis. Patient denies RUQ pain or n/v only discomfort with cough. Based on age and other medical issues with acute change, cholecystostomy tube drainage was chosen as best acute approach and was placed yesterday. He denies any pain with procedure and only c/o cough. He denies n/v, but does have mild constipation without bleeding- he takes prune juice and stool softeners with good results. Records review colonoscopy in [address] Lara with TA polyps and EGD in 2016 for ulcer disease but no report or path is in record. Past Medical History Cardiovascular: HTN, Hyperlipidemia, Other (PSVT) Pulmonary: No pertinent hx CENTRAL NERVOUS SYSTEM: CVA GI: GERD Heme/Onc: No pertinent hx Hepatobiliary: No pertinent hx Psych: No pertinent hx Infectious disease: No pertinent hx Renal/: Benign prostatic enlarg. Endocrine: No pertinent hx Past Surgical History Past Surgical History: No pertinent history Family History Family History: Hypertension Social History No ALCOHOL: none Drugs: None Lives: with Family Current Problem List Problem List Problems Medical Problems: (1) Elevated troponin Status: Acute (2) Influenza A Status: Acute Current Medications Current Medications Current Medications Acetaminophen (Tylenol) 1,000 mg 1X ONCE PO Last administered on 12/24/18 19: 30; Start 12/24/18 at 19:30; Stop 12/24/18 at 19:33; Status DC Sodium Chloride 1,000 ml @ 125 mls/hr 1X ONCE IV Last administered on 19:30; Start 12/24/18 at 19:30; Stop 12/25/18 at 03:29; Status DC Oseltamivir Phosphate (Tamiflu) 75 mg 1X ONCE PO Last administered on at 20:00; Start 12/24/18 at 20:00; Stop 12/24/18 at 20:01; Status DC Aspirin (Elier Aspirin) 325 mg 1X ONCE PO Last administered on 12/24/18at 21:58 ; Start 12/24/18 at 22:00; Stop 12/24/18 at 22:01; Status DC Oseltamivir Phosphate (Tamiflu) 30 mg BID PO Last administered on 12/29/18 11: 00; Start 12/25/18 at 09:00; Stop 12/29/18 at 09:01; Status DC Aspirin (Ecotrin) 325 mg DAILYWBKFT PO Last administered on 12/30/18 08:39; Start 12/25/18 at 12:00 Atorvastatin Calcium (Lipitor) 40 mg QHS PO Last administered on 12/28/18 20:15 ; Start 12/25/18 at 21:00 Metoprolol Succinate (Toprol Xl) 25 mg DAILY PO Last administered on 12/30/18 08:40; Start 12/25/18 at 12:00 Vitamin D (Vitamin D3) 2,000 unit DAILY PO Last administered on 12/30/18 08:39 ; Start 12/25/18 at 12:00 Losartan Potassium (Cozaar) 100 mg DAILY PO Last administered on 12/28/18 09:18 ; Start 12/25/18 at 12:00; Stop 12/28/18 at 13:46; Status DC Multivitamins (Thera M Plus) 1 tab DAILY PO Last administered on 12/30/18 08: 39; Start 12/25/18 at 12:00 Pantoprazole Sodium (Protonix) 40 mg DAILYAC PO Last administered on 12/30/18 08:40; Start 12/25/18 at 12:00 Calcium Carbonate/ Glycine (Tums) 500 mg PRN AFTMEALHC PRN PO INDIGESTION Last administered on 12/26/18 08:34; Start 12/25/18 at 22:15 Trazodone HCl (Desyrel) 50 mg PRN QHS PRN PO INSOMNIA Last administered on 20:16; Start 12/26/18 at 21:00 Amoxicillin/ Clavulanate Potassium (Augmentin 875/ 125mg) 1 tab BID PO Last administered on 12/29/18 11:01; Start 12/28/18 at 12:00; Stop 12/29/18 at 16:00; Status DC Sodium Chloride 1,000 ml @ 75 mls/hr [id number] IV ; Start 12/28/18 at 12:00; Stop 12/29/18 at 13:13; Status DC Lactobacillus Rhamnosus (Culturelle) 1 cap BID PO Last administered on at 08:39; Start 12/28/18 at 14:00 Acetaminophen (Tylenol) 500 mg PRN Q6HRS PRN PO MILD PAIN / TEMP Last administered on 12/29/18at 16:10; Start 12/28/18 at 20:15 Sodium Chloride 1,000 ml @ 75 mls/hr [id number] IV Last administered on at 08:39; Start 12/29/18 at 11:30 Tamsulosin HCl (Flomax) 0.4 mg DAILY PO Last administered on 12/30/18at 08:39; Start 12/29/18 at 13:00 Piperacillin Sod/ Tazobactam Sod (Zosyn Per Pharmacy) 1 each PRN DAILY PRN MC SEE COMMENTS; Start 12/29/18 at 16:00 Piperacillin Sod/ Tazobactam Sod 2.25 gm/Sodium Chloride 50 ml @ 100 mls/hr Q6HRS IV Last administered on 12/30/18at 08:40; Start 12/29/18 at 17:00 Lidocaine/Sodium Bicarbonate (Buffered Lidocaine 1%) 3 ml STK-MED ONCE .ROUTE ; Start 12/29/18 at 18:42; Stop 12/29/18 at 18:43; Status DC Iohexol (Omnipaque 300 Mg/ml) 100 ml STK-MED ONCE .ROUTE ; Start 12/29/18 at 18: 43; Stop 12/29/18 at 18:44; Status DC Hydrocortisone Sodium Succinate (Solu-CORTEF) 250 mg STK-MED ONCE .ROUTE ; Start 12/29/18 at 18:48; Stop 12/29/18 at 18:49; Status DC Midazolam HCl (Versed) 2 mg STK-MED ONCE .ROUTE ; Start 12/29/18 at 18:49; Stop 12/29/18 at 18:50; Status DC Fentanyl Citrate (Fentanyl 2ml Vial) 100 mcg STK-MED ONCE .ROUTE ; Start at 18:49; Stop 12/29/18 at 18:50; Status DC Diphenhydramine HCl (Benadryl) 50 mg STK-MED ONCE .ROUTE ; Start 12/29/18 at 18: 49; Stop 12/29/18 at 18:50; Status DC Iodixanol (Visipaque 320) 100 ml STK-MED ONCE .ROUTE ; Start 12/29/18 at 18:51; Stop 12/29/18 at 18:52; Status DC Acetaminophen/ Hydrocodone Bitart (Lortab 5/325) 1 tab PRN Q4HRS PRN PO MODERATE PAIN; Start 12/29/18 at 19:15 Acetaminophen/ Hydrocodone Bitart (Lortab 5/325) 2 tab PRN Q4HRS PRN PO SEVERE PAIN; Start 12/29/18 at 19:15 Cefazolin Sodium 50 ml @ As Directed STK-MED ONCE IV ; Start 12/29/18 at 19:25; Stop 12/29/18 at 19:26; Status DC Lidocaine/Sodium Bicarbonate (Buffered Lidocaine 1%) 6 ml 1X ONCE IJ Last administered on 12/29/18at 19:55; Start 12/29/18 at 19:45; Stop 12/29/18 at 19:48; Status DC Midazolam HCl (Versed) 1.5 mg 1X ONCE IV Last administered on 12/29/18 19:56; Start 12/29/18 at 19:45; Stop 12/29/18 at 19:48; Status DC Fentanyl Citrate (Fentanyl 2ml Vial) 100 mcg 1X ONCE IV Last administered on 19:56; Start 12/29/18 at 20:00; Stop 12/29/18 at 20:01; Status DC Iodixanol (Visipaque 320) 16 ml 1X ONCE IART Last administered on 12/29/18 19: 55; Start 12/29/18 at 19:45; Stop 12/29/18 at 19:48; Status DC Cefazolin Sodium 50 ml @ 100 mls/hr 1X ONCE IV Last administered on 12/29/18 19:55; Start 12/29/18 at 19:45; Stop 12/29/18 at 20:14; Status DC Hydrocortisone Sodium Succinate (Solu-CORTEF) 100 mg 1X ONCE IV Last administered on 12/29/18at 19:55; Start 12/29/18 at 19:45; Stop 12/29/18 at 19:48; Status DC Diphenhydramine HCl (Benadryl) 50 mg 1X ONCE IVP Last administered on at 19:56; Start 12/29/18 at 19:45; Stop 12/29/18 at 19:48; Status DC Throat Lozenges (Cepacol Sore Throat Lozenge) 1 wilner PRN Q2HRS PRN PO SORE THROAT; Start 12/30/18 at 09:45; Status UNV Active Scripts Active Atorvastatin Calcium 40 Mg Tablet 40 Mg PO QHS 30 Days Aspirin Ec (Aspirin) 325 Mg Tablet.dr 325 Mg PO DAILYWBKFT 30 Days Reported Tamiflu (Oseltamivir Phosphate) 30 Mg Capsule 1 Cap PO BID Vitamin B-12 (Cyanocobalamin (Vitamin B-12)) 1,000 Mcg Tablet 1 Tab PO DAILY Metoprolol Succinate ( Xl ) (Metoprolol Succinate) 25 Mg Tab.er.24h 1 Tab PO DAILY Losartan Potassium 100 Mg Tablet 100 Mg PO DAILY Multivitamins (Multivitamin) 1 Each Tablet 1 Tab PO DAILY Vitamin D (Cholecalciferol (Vitamin D3)) 2,000 Unit Capsule 1 Cap PO DAILY Allergies Allergies: Coded Allergies: iodine (Verified Allergy, Intermediate, Rash, 08/12/15) iron (Verified Allergy, Intermediate, Rash, 09/05/15) INJECTABLE iron dextran complex (Verified Allergy, Intermediate, Rash, 09/05/15) Physical Exam General: Alert, Oriented X3 HEENT: PERRLA Lungs: Other (rhonchi) Heart: Regular rate, Normal S1, Normal S2 Abdomen: Normal bowel sounds, Soft, No tenderness, No hepatosplenomegaly, Other (cholecystostomy tube in RUQ- nontender) Extremities: No clubbing, No cyanosis Vitals VITALS Vital Signs Date Time Temp Pulse Resp B/P (MAP) Pulse Ox O2 Delivery O2 Flow Rate FiO2 12/30/18 08:40 20 111/61 12/30/18 08:00 Nasal Cannula 2.0 12/30/18 07:10 98.3 20 95 98.3 Labs Labs Laboratory Tests Test 12/29/18 03:00 12/29/18 11:45 12/29/18 17:37 12/30/18 05:00 White Blood Count 19.4 x10^3/uL (4.0-11.0) 19.4 x10^3/uL (4.0-11.0) Red Blood Count 4.24 x10^6/uL (4.30-5.70) 4.30 x10^6/uL (4.30-5.70) Hemoglobin 13.0 g/dL (13.0-17.5) 13.1 g/dL (13.0-17.5) Hematocrit 39.0 % (39.0-53.0) 39.5 % (39.0-53.0) Mean Corpuscular Volume 92 fL (79-100) 92 fL (79-100) Mean Corpuscular Hemoglobin 31 pg (25-35) 31 pg (25-35) Mean Corpuscular Hemoglobin Concent 33 g/dL (31-37) 33 g/dL (31-37) Red Cell Distribution Width 13.5 % (11.5-14.5) 13.6 % (11.5-14.5) Platelet Count 145 x10^3/uL (140-400) 171 x10^3/uL (140-400) Neutrophils (%) (Auto) 81 % (31-73) 91 % (31-73) Lymphocytes (%) (Auto) 10 % (24-48) 2 % (24-48) Monocytes (%) (Auto) 9 % (0-9) 7 % (0-9) Eosinophils (%) (Auto) 0 % (0-3) 0 % (0-3) Basophils (%) (Auto) 0 % (0-3) 0 % (0-3) Neutrophils # (Auto) 15.7 x10^3uL (1.8-7.7) 17.5 x10^3uL (1.8-7.7) Lymphocytes # (Auto) 1.9 x10^3/uL (1.0-4.8) 0.5 x10^3/uL (1.0-4.8) Monocytes # (Auto) 1.8 x10^3/uL (0.0-1.1) 1.4 x10^3/uL (0.0-1.1) Eosinophils # (Auto) 0.0 x10^3/uL (0.0-0.7) 0.0 x10^3/uL (0.0-0.7) Basophils # (Auto) 0.0 x10^3/uL (0.0-0.2) 0.0 x10^3/uL (0.0-0.2) Sodium Level 130 mmol/L (136-145) 136 mmol/L (136-145) Potassium Level 4.3 mmol/L (3.5-5.1) 4.2 mmol/L (3.5-5.1) Chloride Level 97 mmol/L (98-107) 101 mmol/L (98-107) Carbon Dioxide Level 22 mmol/L (21-32) 24 mmol/L (21-32) Anion Gap 11 (6-14) 11 (6-14) Blood Urea Nitrogen 42 mg/dL (8-26) 36 mg/dL (8-26) Creatinine 1.7 mg/dL (0.7-1.3) 1.6 mg/dL (0.7-1.3) Estimated GFR (Cockcroft-Gault) 38.7 41.5 BUN/Creatinine Ratio 25 (6-20) 23 (6-20) Glucose Level 107 mg/dL (70-99) 167 mg/dL (70-99) Calcium Level 8.0 mg/dL (8.5-10.1) 8.4 mg/dL (8.5-10.1) Total Bilirubin 0.9 mg/dL (0.2-1.0) 0.8 mg/dL (0.2-1.0) Aspartate Amino Transf (AST/SGOT) 54 U/L (15-37) 48 U/L (15-37) Alanine Aminotransferase (ALT/SGPT) 34 U/L (16-63) 42 U/L (16-63) Alkaline Phosphatase 60 U/L (46-116) 89 U/L (46-116) Total Protein 5.4 g/dL (6.4-8.2) 6.2 g/dL (6.4-8.2) Albumin 2.2 g/dL (3.4-5.0) 2.1 g/dL (3.4-5.0) Albumin/Globulin Ratio 0.7 (1.0-1.7) 0.5 (1.0-1.7) Urine Collection Type Unknown Urine Color Other Urine Clarity Cloudy Urine pH 5.5 Urine Specific [place] 1.020 Urine Protein 30 mg/dL (NEG-TRACE) Urine Glucose (UA) Negative mg/dL (NEG) Urine Ketones (Stick) Trace mg/dL (NEG) Urine Blood Large (NEG) Urine Nitrite Negative (NEG) Urine Bilirubin Small (NEG) Urine Urobilinogen Dipstick 0.2 mg/dL (0.2 mg/dL) Urine Leukocyte Esterase Moderate (NEG) Urine RBC >40 /HPF (0-2) Urine WBC Occ /HPF (0-4) Urine Bacteria 0 /HPF (0-FEW) Prothrombin Time 14.4 SEC (11.7-14.0) Prothromb Time International Ratio 1.2 (0.8-1.1) Laboratory Tests Test 12/29/18 11:45 12/29/18 17:37 12/30/18 05:00 Urine Collection Type Unknown Urine Color Other Urine Clarity Cloudy Urine pH 5.5 Urine Specific [place] 1.020 Urine Protein 30 mg/dL (NEG-TRACE) Urine Glucose (UA) Negative mg/dL (NEG) Urine Ketones (Stick) Trace mg/dL (NEG) Urine Blood Large (NEG) Urine Nitrite Negative (NEG) Urine Bilirubin Small (NEG) Urine Urobilinogen Dipstick 0.2 mg/dL (0.2 mg/dL) Urine Leukocyte Esterase Moderate (NEG) Urine RBC >40 /HPF (0-2) Urine WBC Occ /HPF (0-4) Urine Bacteria 0 /HPF (0-FEW) Prothrombin Time 14.4 SEC (11.7-14.0) Prothromb Time International Ratio 1.2 (0.8-1.1) White Blood Count 19.4 x10^3/uL (4.0-11.0) Red Blood Count 4.30 x10^6/uL (4.30-5.70) Hemoglobin 13.1 g/dL (13.0-17.5) Hematocrit 39.5 % (39.0-53.0) Mean Corpuscular Volume 92 fL (79-100) Mean Corpuscular Hemoglobin 31 pg (25-35) Mean Corpuscular Hemoglobin Concent 33 g/dL (31-37) Red Cell Distribution Width 13.6 % (11.5-14.5) Platelet Count 171 x10^3/uL (140-400) Neutrophils (%) (Auto) 91 % (31-73) Lymphocytes (%) (Auto) 2 % (24-48) Monocytes (%) (Auto) 7 % (0-9) Eosinophils (%) (Auto) 0 % (0-3) Basophils (%) (Auto) 0 % (0-3) Neutrophils # (Auto) 17.5 x10^3uL (1.8-7.7) Lymphocytes # (Auto) 0.5 x10^3/uL (1.0-4.8) Monocytes # (Auto) 1.4 x10^3/uL (0.0-1.1) Eosinophils # (Auto) 0.0 x10^3/uL (0.0-0.7) Basophils # (Auto) 0.0 x10^3/uL (0.0-0.2) Sodium Level 136 mmol/L (136-145) Potassium Level 4.2 mmol/L (3.5-5.1) Chloride Level 101 mmol/L (98-107) Carbon Dioxide Level 24 mmol/L (21-32) Anion Gap 11 (6-14) Blood Urea Nitrogen 36 mg/dL (8-26) Creatinine 1.6 mg/dL (0.7-1.3) Estimated GFR (Cockcroft-Gault) 41.5 BUN/Creatinine Ratio 23 (6-20) Glucose Level 167 mg/dL (70-99) Calcium Level 8.4 mg/dL (8.5-10.1) Total Bilirubin 0.8 mg/dL (0.2-1.0) Aspartate Amino Transf (AST/SGOT) 48 U/L (15-37) Alanine Aminotransferase (ALT/SGPT) 42 U/L (16-63) Alkaline Phosphatase 89 U/L (46-116) Total Protein 6.2 g/dL (6.4-8.2) Albumin 2.1 g/dL (3.4-5.0) Albumin/Globulin Ratio 0.5 (1.0-1.7) Images Images CT and US with acute cholecystitis Assessment/Plan Assessment/Plan Acute cholecystitis developing during hospital stay - seen on imaging and with elevated WBC but patient denies symptoms - presently feels unchanged after cholecystostomy tube. Denies chronic biliary symptoms but does have PUD history in past. Plan- continue present management and care will monitor YUMIKO HAQUE MD Dec 30, 2018 09:52
--- NOTE | 2018-12-30 11:19 | PDOC ---
PROGRESS NOTES Chief Complaint Chief Complaint Weakness Leukocytosis likely 2/2 cholecystis vs infection Cough SEPSIS Influenza + Elevated Troponin H/o CVA HTN HLD GERD History of Present Illness History of Present Illness Mr Malik was seen and examined this morning. Patient has no new complaints this am. Patient had cholesystostomy for acute cholecystitis. Started on Zosyn. Discussed case with RN Pt with mild/mod distress, resting in bed Pt white count still elevated at 19.4, Creatinine trending down, on NS. Nephrology, Urology, GI consulted. Patient has completed tamiflu Vitals Vitals Vital Signs Date Time Temp Pulse Resp B/P (MAP) Pulse Ox O2 Delivery O2 Flow Rate FiO2 12/30/18 08:40 20 111/61 12/30/18 08:00 Nasal Cannula 2.0 12/30/18 07:10 98.3 20 95 98.3 Physical Exam General: Alert, Oriented X3 Heart: Regular rate, Normal S1, Normal S2 Lungs: Clear Abdomen: Normal bowel sounds, Soft, No tenderness, No hepatosplenomegaly, Other (cholecystostomy tube in RUQ- nontender, NICOLAS in place, no leakage) Extremities: No clubbing, No cyanosis Skin: Other (warm) Labs LABS Laboratory Tests Test 12/29/18 11:45 12/29/18 17:37 12/30/18 05:00 Urine Collection Type Unknown Urine Color Other Urine Clarity Cloudy Urine pH 5.5 Urine Specific [place] 1.020 Urine Protein 30 mg/dL (NEG-TRACE) Urine Glucose (UA) Negative mg/dL (NEG) Urine Ketones (Stick) Trace mg/dL (NEG) Urine Blood Large (NEG) Urine Nitrite Negative (NEG) Urine Bilirubin Small (NEG) Urine Urobilinogen Dipstick 0.2 mg/dL (0.2 mg/dL) Urine Leukocyte Esterase Moderate (NEG) Urine RBC >40 /HPF (0-2) Urine WBC Occ /HPF (0-4) Urine Bacteria 0 /HPF (0-FEW) Prothrombin Time 14.4 SEC (11.7-14.0) Prothromb Time International Ratio 1.2 (0.8-1.1) White Blood Count 19.4 x10^3/uL (4.0-11.0) Red Blood Count 4.30 x10^6/uL (4.30-5.70) Hemoglobin 13.1 g/dL (13.0-17.5) Hematocrit 39.5 % (39.0-53.0) Mean Corpuscular Volume 92 fL (79-100) Mean Corpuscular Hemoglobin 31 pg (25-35) Mean Corpuscular Hemoglobin Concent 33 g/dL (31-37) Red Cell Distribution Width 13.6 % (11.5-14.5) Platelet Count 171 x10^3/uL (140-400) Neutrophils (%) (Auto) 91 % (31-73) Lymphocytes (%) (Auto) 2 % (24-48) Monocytes (%) (Auto) 7 % (0-9) Eosinophils (%) (Auto) 0 % (0-3) Basophils (%) (Auto) 0 % (0-3) Neutrophils # (Auto) 17.5 x10^3uL (1.8-7.7) Lymphocytes # (Auto) 0.5 x10^3/uL (1.0-4.8) Monocytes # (Auto) 1.4 x10^3/uL (0.0-1.1) Eosinophils # (Auto) 0.0 x10^3/uL (0.0-0.7) Basophils # (Auto) 0.0 x10^3/uL (0.0-0.2) Sodium Level 136 mmol/L (136-145) Potassium Level 4.2 mmol/L (3.5-5.1) Chloride Level 101 mmol/L (98-107) Carbon Dioxide Level 24 mmol/L (21-32) Anion Gap 11 (6-14) Blood Urea Nitrogen 36 mg/dL (8-26) Creatinine 1.6 mg/dL (0.7-1.3) Estimated GFR (Cockcroft-Gault) 41.5 BUN/Creatinine Ratio 23 (6-20) Glucose Level 167 mg/dL (70-99) Calcium Level 8.4 mg/dL (8.5-10.1) Total Bilirubin 0.8 mg/dL (0.2-1.0) Aspartate Amino Transf (AST/SGOT) 48 U/L (15-37) Alanine Aminotransferase (ALT/SGPT) 42 U/L (16-63) Alkaline Phosphatase 89 U/L (46-116) Total Protein 6.2 g/dL (6.4-8.2) Albumin 2.1 g/dL (3.4-5.0) Albumin/Globulin Ratio 0.5 (1.0-1.7) Review of Systems Review of Systems Denies abdominal pain Denies nausea, vomiting Denies shortness of breath Denies chest pain Assessment and Plan Assessmemt and Plan Problems Medical Problems: (1) Elevated troponin Status: Acute (2) Influenza A Status: Acute Assessment: Weakness Leukocytosis likely 2/2 cholecystis vs infection Cough SEPSIS Influenza + - completed tamiflu course Elevated Troponin H/o CVA HTN HLD GERD Plan: Continue zosyn Review labs tomorrow, continue to follow white count PT/OT Continue home meds Monitor NICOLAS drainage Appreciate subspecialty input Comment Review of Relevant I have reviewed the following items timoteo (where applicable) has been applied. Labs Laboratory Tests Test 12/29/18 03:00 12/29/18 11:45 12/29/18 17:37 12/30/18 05:00 White Blood Count 19.4 x10^3/uL (4.0-11.0) 19.4 x10^3/uL (4.0-11.0) Red Blood Count 4.24 x10^6/uL (4.30-5.70) 4.30 x10^6/uL (4.30-5.70) Hemoglobin 13.0 g/dL (13.0-17.5) 13.1 g/dL (13.0-17.5) Hematocrit 39.0 % (39.0-53.0) 39.5 % (39.0-53.0) Mean Corpuscular Volume 92 fL (79-100) 92 fL (79-100) Mean Corpuscular Hemoglobin 31 pg (25-35) 31 pg (25-35) Mean Corpuscular Hemoglobin Concent 33 g/dL (31-37) 33 g/dL (31-37) Red Cell Distribution Width 13.5 % (11.5-14.5) 13.6 % (11.5-14.5) Platelet Count 145 x10^3/uL (140-400) 171 x10^3/uL (140-400) Neutrophils (%) (Auto) 81 % (31-73) 91 % (31-73) Lymphocytes (%) (Auto) 10 % (24-48) 2 % (24-48) Monocytes (%) (Auto) 9 % (0-9) 7 % (0-9) Eosinophils (%) (Auto) 0 % (0-3) 0 % (0-3) Basophils (%) (Auto) 0 % (0-3) 0 % (0-3) Neutrophils # (Auto) 15.7 x10^3uL (1.8-7.7) 17.5 x10^3uL (1.8-7.7) Lymphocytes # (Auto) 1.9 x10^3/uL (1.0-4.8) 0.5 x10^3/uL (1.0-4.8) Monocytes # (Auto) 1.8 x10^3/uL (0.0-1.1) 1.4 x10^3/uL (0.0-1.1) Eosinophils # (Auto) 0.0 x10^3/uL (0.0-0.7) 0.0 x10^3/uL (0.0-0.7) Basophils # (Auto) 0.0 x10^3/uL (0.0-0.2) 0.0 x10^3/uL (0.0-0.2) Sodium Level 130 mmol/L (136-145) 136 mmol/L (136-145) Potassium Level 4.3 mmol/L (3.5-5.1) 4.2 mmol/L (3.5-5.1) Chloride Level 97 mmol/L (98-107) 101 mmol/L (98-107) Carbon Dioxide Level 22 mmol/L (21-32) 24 mmol/L (21-32) Anion Gap 11 (6-14) 11 (6-14) Blood Urea Nitrogen 42 mg/dL (8-26) 36 mg/dL (8-26) Creatinine 1.7 mg/dL (0.7-1.3) 1.6 mg/dL (0.7-1.3) Estimated GFR (Cockcroft-Gault) 38.7 41.5 BUN/Creatinine Ratio 25 (6-20) 23 (6-20) Glucose Level 107 mg/dL (70-99) 167 mg/dL (70-99) Calcium Level 8.0 mg/dL (8.5-10.1) 8.4 mg/dL (8.5-10.1) Total Bilirubin 0.9 mg/dL (0.2-1.0) 0.8 mg/dL (0.2-1.0) Aspartate Amino Transf (AST/SGOT) 54 U/L (15-37) 48 U/L (15-37) Alanine Aminotransferase (ALT/SGPT) 34 U/L (16-63) 42 U/L (16-63) Alkaline Phosphatase 60 U/L (46-116) 89 U/L (46-116) Total Protein 5.4 g/dL (6.4-8.2) 6.2 g/dL (6.4-8.2) Albumin 2.2 g/dL (3.4-5.0) 2.1 g/dL (3.4-5.0) Albumin/Globulin Ratio 0.7 (1.0-1.7) 0.5 (1.0-1.7) Urine Collection Type Unknown Urine Color Other Urine Clarity Cloudy Urine pH 5.5 Urine Specific [place] 1.020 Urine Protein 30 mg/dL (NEG-TRACE) Urine Glucose (UA) Negative mg/dL (NEG) Urine Ketones (Stick) Trace mg/dL (NEG) Urine Blood Large (NEG) Urine Nitrite Negative (NEG) Urine Bilirubin Small (NEG) Urine Urobilinogen Dipstick 0.2 mg/dL (0.2 mg/dL) Urine Leukocyte Esterase Moderate (NEG) Urine RBC >40 /HPF (0-2) Urine WBC Occ /HPF (0-4) Urine Bacteria 0 /HPF (0-FEW) Prothrombin Time 14.4 SEC (11.7-14.0) Prothromb Time International Ratio 1.2 (0.8-1.1) Laboratory Tests Test 12/29/18 11:45 12/29/18 17:37 12/30/18 05:00 Urine Collection Type Unknown Urine Color Other Urine Clarity Cloudy Urine pH 5.5 Urine Specific [place] 1.020 Urine Protein 30 mg/dL (NEG-TRACE) Urine Glucose (UA) Negative mg/dL (NEG) Urine Ketones (Stick) Trace mg/dL (NEG) Urine Blood Large (NEG) Urine Nitrite Negative (NEG) Urine Bilirubin Small (NEG) Urine Urobilinogen Dipstick 0.2 mg/dL (0.2 mg/dL) Urine Leukocyte Esterase Moderate (NEG) Urine RBC >40 /HPF (0-2) Urine WBC Occ /HPF (0-4) Urine Bacteria 0 /HPF (0-FEW) Prothrombin Time 14.4 SEC (11.7-14.0) Prothromb Time International Ratio 1.2 (0.8-1.1) White Blood Count 19.4 x10^3/uL (4.0-11.0) Red Blood Count 4.30 x10^6/uL (4.30-5.70) Hemoglobin 13.1 g/dL (13.0-17.5) Hematocrit 39.5 % (39.0-53.0) Mean Corpuscular Volume 92 fL (79-100) Mean Corpuscular Hemoglobin 31 pg (25-35) Mean Corpuscular Hemoglobin Concent 33 g/dL (31-37) Red Cell Distribution Width 13.6 % (11.5-14.5) Platelet Count 171 x10^3/uL (140-400) Neutrophils (%) (Auto) 91 % (31-73) Lymphocytes (%) (Auto) 2 % (24-48) Monocytes (%) (Auto) 7 % (0-9) Eosinophils (%) (Auto) 0 % (0-3) Basophils (%) (Auto) 0 % (0-3) Neutrophils # (Auto) 17.5 x10^3uL (1.8-7.7) Lymphocytes # (Auto) 0.5 x10^3/uL (1.0-4.8) Monocytes # (Auto) 1.4 x10^3/uL (0.0-1.1) Eosinophils # (Auto) 0.0 x10^3/uL (0.0-0.7) Basophils # (Auto) 0.0 x10^3/uL (0.0-0.2) Sodium Level 136 mmol/L (136-145) Potassium Level 4.2 mmol/L (3.5-5.1) Chloride Level 101 mmol/L (98-107) Carbon Dioxide Level 24 mmol/L (21-32) Anion Gap 11 (6-14) Blood Urea Nitrogen 36 mg/dL (8-26) Creatinine 1.6 mg/dL (0.7-1.3) Estimated GFR (Cockcroft-Gault) 41.5 BUN/Creatinine Ratio 23 (6-20) Glucose Level 167 mg/dL (70-99) Calcium Level 8.4 mg/dL (8.5-10.1) Total Bilirubin 0.8 mg/dL (0.2-1.0) Aspartate Amino Transf (AST/SGOT) 48 U/L (15-37) Alanine Aminotransferase (ALT/SGPT) 42 U/L (16-63) Alkaline Phosphatase 89 U/L (46-116) Total Protein 6.2 g/dL (6.4-8.2) Albumin 2.1 g/dL (3.4-5.0) Albumin/Globulin Ratio 0.5 (1.0-1.7) Microbiology 12/25/18 Blood Culture - Final, Complete NO GROWTH AFTER 5 DAYS Medications Current Medications Acetaminophen (Tylenol) 1,000 mg 1X ONCE PO Last administered on 12/24/18 19: 30; Start 12/24/18 at 19:30; Stop 12/24/18 at 19:33; Status DC Sodium Chloride 1,000 ml @ 125 mls/hr 1X ONCE IV Last administered on 19:30; Start 12/24/18 at 19:30; Stop 12/25/18 at 03:29; Status DC Oseltamivir Phosphate (Tamiflu) 75 mg 1X ONCE PO Last administered on 20:00; Start 12/24/18 at 20:00; Stop 12/24/18 at 20:01; Status DC Aspirin (Elier Aspirin) 325 mg 1X ONCE PO Last administered on 12/24/18 21:58 ; Start 12/24/18 at 22:00; Stop 12/24/18 at 22:01; Status DC Oseltamivir Phosphate (Tamiflu) 30 mg BID PO Last administered on 12/29/18 11: 00; Start 12/25/18 at 09:00; Stop 12/29/18 at 09:01; Status DC Aspirin (Ecotrin) 325 mg DAILYWBKFT PO Last administered on 12/30/18 08:39; Start 12/25/18 at 12:00 Atorvastatin Calcium (Lipitor) 40 mg QHS PO Last administered on 12/28/18 20:15 ; Start 12/25/18 at 21:00 Metoprolol Succinate (Toprol Xl) 25 mg DAILY PO Last administered on 12/30/18 08:40; Start 12/25/18 at 12:00 Vitamin D (Vitamin D3) 2,000 unit DAILY PO Last administered on 12/30/18 08:39 ; Start 12/25/18 at 12:00 Losartan Potassium (Cozaar) 100 mg DAILY PO Last administered on 12/28/18 09:18 ; Start 12/25/18 at 12:00; Stop 12/28/18 at 13:46; Status DC Multivitamins (Thera M Plus) 1 tab DAILY PO Last administered on 12/30/18 08: 39; Start 12/25/18 at 12:00 Pantoprazole Sodium (Protonix) 40 mg DAILYAC PO Last administered on 12/30/18 08:40; Start 12/25/18 at 12:00 Calcium Carbonate/ Glycine (Tums) 500 mg PRN AFTMEALHC PRN PO INDIGESTION Last administered on 12/26/18 08:34; Start 12/25/18 at 22:15 Trazodone HCl (Desyrel) 50 mg PRN QHS PRN PO INSOMNIA Last administered on 20:16; Start 12/26/18 at 21:00 Amoxicillin/ Clavulanate Potassium (Augmentin 875/ 125mg) 1 tab BID PO Last administered on 12/29/18 11:01; Start 12/28/18 at 12:00; Stop 12/29/18 at 16:00; Status DC Sodium Chloride 1,000 ml @ 75 mls/hr [id number] IV ; Start 12/28/18 at 12:00; Stop 12/29/18 at 13:13; Status DC Lactobacillus Rhamnosus (Culturelle) 1 cap BID PO Last administered on 08:39; Start 12/28/18 at 14:00 Acetaminophen (Tylenol) 500 mg PRN Q6HRS PRN PO MILD PAIN / TEMP Last administered on 12/29/18 16:10; Start 12/28/18 at 20:15 Sodium Chloride 1,000 ml @ 75 mls/hr [id number] IV Last administered on 08:39; Start 12/29/18 at 11:30 Tamsulosin HCl (Flomax) 0.4 mg DAILY PO Last administered on 12/30/18at 08:39; Start 12/29/18 at 13:00 Piperacillin Sod/ Tazobactam Sod (Zosyn Per Pharmacy) 1 each PRN DAILY PRN MC SEE COMMENTS; Start 12/29/18 at 16:00 Piperacillin Sod/ Tazobactam Sod 2.25 gm/Sodium Chloride 50 ml @ 100 mls/hr Q6HRS IV Last administered on 12/30/18at 08:40; Start 12/29/18 at 17:00 Lidocaine/Sodium Bicarbonate (Buffered Lidocaine 1%) 3 ml STK-MED ONCE .ROUTE ; Start 12/29/18 at 18:42; Stop 12/29/18 at 18:43; Status DC Iohexol (Omnipaque 300 Mg/ml) 100 ml STK-MED ONCE .ROUTE ; Start 12/29/18 at 18: 43; Stop 12/29/18 at 18:44; Status DC Hydrocortisone Sodium Succinate (Solu-CORTEF) 250 mg STK-MED ONCE .ROUTE ; Start 12/29/18 at 18:48; Stop 12/29/18 at 18:49; Status DC Midazolam HCl (Versed) 2 mg STK-MED ONCE .ROUTE ; Start 12/29/18 at 18:49; Stop 12/29/18 at 18:50; Status DC Fentanyl Citrate (Fentanyl 2ml Vial) 100 mcg STK-MED ONCE .ROUTE ; Start at 18:49; Stop 12/29/18 at 18:50; Status DC Diphenhydramine HCl (Benadryl) 50 mg STK-MED ONCE .ROUTE ; Start 12/29/18 at 18: 49; Stop 12/29/18 at 18:50; Status DC Iodixanol (Visipaque 320) 100 ml STK-MED ONCE .ROUTE ; Start 12/29/18 at 18:51; Stop 12/29/18 at 18:52; Status DC Acetaminophen/ Hydrocodone Bitart (Lortab 5/325) 1 tab PRN Q4HRS PRN PO MODERATE PAIN; Start 12/29/18 at 19:15 Acetaminophen/ Hydrocodone Bitart (Lortab 5/325) 2 tab PRN Q4HRS PRN PO SEVERE PAIN; Start 12/29/18 at 19:15 Cefazolin Sodium 50 ml @ As Directed STK-MED ONCE IV ; Start 12/29/18 at 19:25; Stop 12/29/18 at 19:26; Status DC Lidocaine/Sodium Bicarbonate (Buffered Lidocaine 1%) 6 ml 1X ONCE IJ Last administered on 12/29/18 19:55; Start 12/29/18 at 19:45; Stop 12/29/18 at 19:48; Status DC Midazolam HCl (Versed) 1.5 mg 1X ONCE IV Last administered on 12/29/18 19:56; Start 12/29/18 at 19:45; Stop 12/29/18 at 19:48; Status DC Fentanyl Citrate (Fentanyl 2ml Vial) 100 mcg 1X ONCE IV Last administered on 19:56; Start 12/29/18 at 20:00; Stop 12/29/18 at 20:01; Status DC Iodixanol (Visipaque 320) 16 ml 1X ONCE IART Last administered on 12/29/18 19: 55; Start 12/29/18 at 19:45; Stop 12/29/18 at 19:48; Status DC Cefazolin Sodium 50 ml @ 100 mls/hr 1X ONCE IV Last administered on 12/29/18 19:55; Start 12/29/18 at 19:45; Stop 12/29/18 at 20:14; Status DC Hydrocortisone Sodium Succinate (Solu-CORTEF) 100 mg 1X ONCE IV Last administered on 12/29/18 19:55; Start 12/29/18 at 19:45; Stop 12/29/18 at 19:48; Status DC Diphenhydramine HCl (Benadryl) 50 mg 1X ONCE IVP Last administered on 19:56; Start 12/29/18 at 19:45; Stop 12/29/18 at 19:48; Status DC Throat Lozenges (Cepacol Sore Throat Lozenge) 1 wilner PRN Q2HRS PRN PO SORE THROAT; Start 12/30/18 at 09:45 Active Scripts Active Atorvastatin Calcium 40 Mg Tablet 40 Mg PO QHS 30 Days Aspirin Ec (Aspirin) 325 Mg Tablet.dr 325 Mg PO DAILYWBKFT 30 Days Reported Tamiflu (Oseltamivir Phosphate) 30 Mg Capsule 1 Cap PO BID Vitamin B-12 (Cyanocobalamin (Vitamin B-12)) 1,000 Mcg Tablet 1 Tab PO DAILY Metoprolol Succinate ( Xl ) (Metoprolol Succinate) 25 Mg Tab.er.24h 1 Tab PO DAILY Losartan Potassium 100 Mg Tablet 100 Mg PO DAILY Multivitamins (Multivitamin) 1 Each Tablet 1 Tab PO DAILY Vitamin D (Cholecalciferol (Vitamin D3)) 2,000 Unit Capsule 1 Cap PO DAILY Vitals/I & O Vital Sign - Last 24 Hours 12/29/18 12/29/18 12/29/18 12/29/18 15:30 15:45 17:50 19:56 Temp 101.0 98.8 101.0 98.8 Pulse 87 Resp 32 27 B/P (MAP) 138/60 (86) Pulse Ox 90 94 94 O2 Delivery Room Air Nasal Cannula Nasal Cannula O2 Flow Rate 3.0 4.0 12/29/18 12/29/18 12/29/18 12/29/18 20:01 20:20 20:24 20:30 Temp 98.9 98.9 Pulse 72 75 Resp 27 20 22 B/P (MAP) 140/69 (92) Pulse Ox 94 94 94 O2 Delivery Nasal Cannula Nasal Cannula Nasal Cannula Nasal Cannula O2 Flow Rate 4.0 2.0 4.0 4.0 12/29/18 12/30/18 12/30/18 12/30/18 23:11 03:21 07:10 08:00 Temp 98.6 97.6 98.3 98.6 97.6 98.3 Pulse 67 78 20 Resp 21 21 20 B/P (MAP) 139/62 (87) 135/67 (89) 111/61 (78) Pulse Ox 91 91 95 O2 Delivery Nasal Cannula Nasal Cannula Nasal Cannula Nasal Cannula O2 Flow Rate 2.0 2.0 2.0 2.0 12/30/18 08:40 Pulse 20 B/P (MAP) 111/61 Intake and Output 12/29/18 12/29/18 12/30/18 15:00 23:00 07:00 Intake Total 0 ml 770 ml Output Total 300 ml 445 ml 700 ml Balance -300 ml -445 ml 70 ml BRI WARD III DO Dec 30, 2018 11:19
[2018-12-30 11:21] VITALS: BP 134/63
--- NOTE | 2018-12-30 11:33 | PDOC ---
SUBJECTIVE ROS S/P Percutaneous Cholecystostomy , feeling better OBJECTIVE Vital Signs Vital Signs Date Time Temp Pulse Resp B/P (MAP) Pulse Ox O2 Delivery O2 Flow Rate FiO2 12/30/18 11:21 98.3 68 20 134/63 (86) 95 Nasal Cannula 2.0 98.3 I & 0 Intake and Output 12/30/18 07:00 Intake Total 770 ml Output Total 1445 ml Balance -675 ml Intake Oral 0 ml IV Total 770 ml Output Urine Total 1275 ml Drainage Total 170 ml # Bowel Movements 2 PHYSICAL EXAM Physical Exam GENERAL: NAD HEENT- OM moist NECK Supple HEART: Normal S1, S2. LUNGS: Clear. ABDOMEN: Soft. EXTREMITIES: No edema SKIN: No rashes. NEUROLOGIC: Grossly normal - No Fong DIAGNOSIS/ASSESSMENT Assessment & Plan HERBER- ATN, Improving slowly Renal US- Mild left hydronephrosis, Mild bilateral renal cortical scarring, Moderate volume of post voiding residual urine in the bladder. Suspect have baseline CKD Acute cholecystitis. Obstructive duct at the junction of the gallbladder neck and cystic duct appears to be present. Cholelithiasis. S/P percutaneous Cholecystostomy 12/29 UA- microscopic hematuria Fong sample Saccular infrarenal abdominal aortic aneurysm. 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 Urology on case CT Cw the same Hypotension- losartan dced , Hyponatremia- Resolved Influenza- On tamiflu Dw RN, Pt and at bedside COMMENT/RELEVANT DATA Meds Current Medications Medications (Trade) Dose Ordered Sig/Zane Start Time Stop Time Status Last Admin Dose Admin Acetaminophen (Tylenol) 500 mg PRN Q6HRS PRN 12/28/18 20:15 12/29/18 16:10 500 MG Acetaminophen/ Hydrocodone Bitart (Lortab 5/325) 2 tab PRN Q4HRS PRN 12/29/18 19:15 Amoxicillin/ Clavulanate Potassium (Augmentin 875/ 125mg) 1 tab BID 12/28/18 12:00 12/29/18 16:00 DC 12/29/18 11:01 1 TAB Aspirin (Elier Aspirin) 325 mg 1X ONCE 12/24/18 22:00 12/24/18 22:01 DC 12/24/18 21:58 325 MG Aspirin (Ecotrin) 325 mg DAILYWBKFT 12/25/18 12:00 12/30/18 08:39 325 MG Atorvastatin Calcium (Lipitor) 40 mg QHS 12/25/18 21:00 12/28/18 20:15 40 MG Calcium Carbonate/ Glycine (Tums) 500 mg PRN AFTMEALHC PRN 12/25/18 22:15 12/26/18 08:34 500 MG Cefazolin Sodium 50 ml @ 100 mls/hr 1X ONCE 12/29/18 19:45 12/29/18 20:14 DC 12/29/18 19:55 100 MLS/HR Diphenhydramine HCl (Benadryl) 50 mg 1X ONCE 12/29/18 19:45 12/29/18 19:48 DC 12/29/18 19:56 50 MG Fentanyl Citrate (Fentanyl 2ml Vial) 100 mcg 1X ONCE 12/29/18 20:00 12/29/18 20:01 DC 12/29/18 19:56 100 MCG Hydrocortisone Sodium Succinate (Solu-CORTEF) 100 mg 1X ONCE 12/29/18 19:45 12/29/18 19:48 DC 12/29/18 19:55 100 MG Iodixanol (Visipaque 320) 16 ml 1X ONCE 12/29/18 19:45 12/29/18 19:48 DC 12/29/18 19:55 16 ML Iohexol (Omnipaque 300 Mg/ml) 100 ml STK-MED ONCE 12/29/18 18:43 12/29/18 18:44 DC Lactobacillus Rhamnosus (Culturelle) 1 cap BID 12/28/18 14:00 12/30/18 08:39 1 CAP Lidocaine/Sodium Bicarbonate (Buffered Lidocaine 1%) 6 ml 1X ONCE 12/29/18 19:45 12/29/18 19:48 DC 12/29/18 19:55 6 ML Losartan Potassium (Cozaar) 100 mg DAILY 12/25/18 12:00 12/28/18 13:46 DC 12/28/18 09:18 100 MG Metoprolol Succinate (Toprol Xl) 25 mg DAILY 12/25/18 12:00 12/30/18 08:40 25 MG Midazolam HCl (Versed) 1.5 mg 1X ONCE 12/29/18 19:45 12/29/18 19:48 DC 12/29/18 19:56 1.5 MG Multivitamins (Thera M Plus) 1 tab DAILY 12/25/18 12:00 12/30/18 08:39 1 TAB Oseltamivir Phosphate (Tamiflu) 30 mg BID 12/25/18 09:00 12/29/18 09:01 DC 12/29/18 11:00 30 MG Pantoprazole Sodium (Protonix) 40 mg DAILYAC 12/25/18 12:00 12/30/18 08:40 40 MG Piperacillin Sod/ Tazobactam Sod (Zosyn Per Pharmacy) 1 each PRN DAILY PRN 12/29/18 16:00 Piperacillin Sod/ Tazobactam Sod 2.25 gm/Sodium Chloride 50 ml @ 100 mls/hr Q6HRS 12/29/18 17:00 12/30/18 08:40 100 MLS/HR Sodium Chloride 1,000 ml @ 75 mls/hr [id number] 12/29/18 11:30 12/30/18 08:39 75 MLS/HR Tamsulosin HCl (Flomax) 0.4 mg DAILY 12/29/18 13:00 12/30/18 08:39 0.4 MG Throat Lozenges (Cepacol Sore Throat Lozenge) 1 wilner PRN Q2HRS PRN 12/30/18 09:45 Trazodone HCl (Desyrel) 50 mg PRN QHS PRN 12/26/18 21:00 12/28/18 20:16 50 MG Vitamin D (Vitamin D3) 2,000 unit DAILY 12/25/18 12:00 12/30/18 08:39 2,000 UNIT Lab Laboratory Tests Test 12/29/18 11:45 12/29/18 17:37 12/30/18 05:00 Urine Collection Type Unknown Urine Color Other Urine Clarity Cloudy Urine pH 5.5 Urine Specific [place] 1.020 Urine Protein 30 mg/dL (NEG-TRACE) Urine Glucose (UA) Negative mg/dL (NEG) Urine Ketones (Stick) Trace mg/dL (NEG) Urine Blood Large (NEG) Urine Nitrite Negative (NEG) Urine Bilirubin Small (NEG) Urine Urobilinogen Dipstick 0.2 mg/dL (0.2 mg/dL) Urine Leukocyte Esterase Moderate (NEG) Urine RBC >40 /HPF (0-2) Urine WBC Occ /HPF (0-4) Urine Bacteria 0 /HPF (0-FEW) Prothrombin Time 14.4 SEC (11.7-14.0) Prothromb Time International Ratio 1.2 (0.8-1.1) White Blood Count 19.4 x10^3/uL (4.0-11.0) Red Blood Count 4.30 x10^6/uL (4.30-5.70) Hemoglobin 13.1 g/dL (13.0-17.5) Hematocrit 39.5 % (39.0-53.0) Mean Corpuscular Volume 92 fL (79-100) Mean Corpuscular Hemoglobin 31 pg (25-35) Mean Corpuscular Hemoglobin Concent 33 g/dL (31-37) Red Cell Distribution Width 13.6 % (11.5-14.5) Platelet Count 171 x10^3/uL (140-400) Neutrophils (%) (Auto) 91 % (31-73) Lymphocytes (%) (Auto) 2 % (24-48) Monocytes (%) (Auto) 7 % (0-9) Eosinophils (%) (Auto) 0 % (0-3) Basophils (%) (Auto) 0 % (0-3) Neutrophils # (Auto) 17.5 x10^3uL (1.8-7.7) Lymphocytes # (Auto) 0.5 x10^3/uL (1.0-4.8) Monocytes # (Auto) 1.4 x10^3/uL (0.0-1.1) Eosinophils # (Auto) 0.0 x10^3/uL (0.0-0.7) Basophils # (Auto) 0.0 x10^3/uL (0.0-0.2) Sodium Level 136 mmol/L (136-145) Potassium Level 4.2 mmol/L (3.5-5.1) Chloride Level 101 mmol/L (98-107) Carbon Dioxide Level 24 mmol/L (21-32) Anion Gap 11 (6-14) Blood Urea Nitrogen 36 mg/dL (8-26) Creatinine 1.6 mg/dL (0.7-1.3) Estimated GFR (Cockcroft-Gault) 41.5 BUN/Creatinine Ratio 23 (6-20) Glucose Level 167 mg/dL (70-99) Calcium Level 8.4 mg/dL (8.5-10.1) Total Bilirubin 0.8 mg/dL (0.2-1.0) Aspartate Amino Transf (AST/SGOT) 48 U/L (15-37) Alanine Aminotransferase (ALT/SGPT) 42 U/L (16-63) Alkaline Phosphatase 89 U/L (46-116) Total Protein 6.2 g/dL (6.4-8.2) Albumin 2.1 g/dL (3.4-5.0) Albumin/Globulin Ratio 0.5 (1.0-1.7) Results All relevant outside records, renal labs, imaging studies, telemetry/EKG's were reviewed. SUNSHINE ABREU MD Dec 30, 2018 11:33
[2018-12-30] MEDS: HYDROcodone/APAP 5/325MG 1 TAB TABLET PO PRN ×3 (13:18→22:49)
[2018-12-30] MEDS ORDERED: fentaNYL PF VIAL 100 MCG/2 ML VIAL IV PRN (14:30)
[2018-12-30 15:00] VITALS: BP 101/58
--- NOTE | 2018-12-30 15:21 | PDOC ---
Progress Note Subjective Subjective no left side pain. 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 ROS ROS No nausea No vomiting No pain No rash Vital Sign Vital Signs Vital Signs Date Time Temp Pulse Resp B/P (MAP) Pulse Ox O2 Delivery O2 Flow Rate FiO2 12/30/18 14:43 95 Nasal Cannula 2.0 12/30/18 13:18 22 12/30/18 11:21 98.3 68 134/63 (86) 98.3 Physical Exam PHYSICAL EXAM GENERAL: NAD, Alert HEENT: PERRL, OC/OP NECK: Supple, no JVD, no LN LUNGS: Clear HEART: S1S2, no gallop, no murmur ABD: Soft, NT, no organomegaly, no rebound EXT: No edema, no cyanosis CENSUS TAKER: Alert, oriented x 3, no focal neurologic deficit SKIN: No rash IV: ok Labs Lab Laboratory Tests Test 12/29/18 17:37 12/30/18 05:00 Prothrombin Time 14.4 SEC (11.7-14.0) Prothromb Time International Ratio 1.2 (0.8-1.1) White Blood Count 19.4 x10^3/uL (4.0-11.0) Red Blood Count 4.30 x10^6/uL (4.30-5.70) Hemoglobin 13.1 g/dL (13.0-17.5) Hematocrit 39.5 % (39.0-53.0) Mean Corpuscular Volume 92 fL (79-100) Mean Corpuscular Hemoglobin 31 pg (25-35) Mean Corpuscular Hemoglobin Concent 33 g/dL (31-37) Red Cell Distribution Width 13.6 % (11.5-14.5) Platelet Count 171 x10^3/uL (140-400) Neutrophils (%) (Auto) 91 % (31-73) Lymphocytes (%) (Auto) 2 % (24-48) Monocytes (%) (Auto) 7 % (0-9) Eosinophils (%) (Auto) 0 % (0-3) Basophils (%) (Auto) 0 % (0-3) Neutrophils # (Auto) 17.5 x10^3uL (1.8-7.7) Lymphocytes # (Auto) 0.5 x10^3/uL (1.0-4.8) Monocytes # (Auto) 1.4 x10^3/uL (0.0-1.1) Eosinophils # (Auto) 0.0 x10^3/uL (0.0-0.7) Basophils # (Auto) 0.0 x10^3/uL (0.0-0.2) Sodium Level 136 mmol/L (136-145) Potassium Level 4.2 mmol/L (3.5-5.1) Chloride Level 101 mmol/L (98-107) Carbon Dioxide Level 24 mmol/L (21-32) Anion Gap 11 (6-14) Blood Urea Nitrogen 36 mg/dL (8-26) Creatinine 1.6 mg/dL (0.7-1.3) Estimated GFR (Cockcroft-Gault) 41.5 BUN/Creatinine Ratio 23 (6-20) Glucose Level 167 mg/dL (70-99) Calcium Level 8.4 mg/dL (8.5-10.1) Total Bilirubin 0.8 mg/dL (0.2-1.0) Aspartate Amino Transf (AST/SGOT) 48 U/L (15-37) Alanine Aminotransferase (ALT/SGPT) 42 U/L (16-63) Alkaline Phosphatase 89 U/L (46-116) Total Protein 6.2 g/dL (6.4-8.2) Albumin 2.1 g/dL (3.4-5.0) Albumin/Globulin Ratio 0.5 (1.0-1.7) Objective Assessment left upjo v extra renal pelvis, chronic. Not likely contributing to his current state of affairs. No gu intervention needed. fu as OP after dc. Plan Plan of Care see above RISHI WEBER MD Dec 30, 2018 15:21
[2018-12-30 20:15] VITALS: BP 93/56
[2018-12-30] MEDS: ATORVASTATIN CALCIUM 40 MG TABLET. PO SCH (22:50)
[2018-12-30 23:20] VITALS: BP 101/46
[2018-12-31] MEDS: PIPERACILLIN/TAZOBACTAM 2.25 GM in IV NORMAL SALINE 50ML 50 ML IV SCH ×5 (00:50→23:45)
[2018-12-31] MEDS: IV NORMAL SALINE 1000ML BAG 1,000 ML IV SCH ×2 (00:50→17:16)
[2018-12-31 03:44] VITALS: BP 111/56
[2018-12-31 04:08] LABS: BASO % 0 % (0-3); EOS # 0.2 x10^3/uL (0.0-0.7); EOS % 1 % (0-3); HEMATOCRIT 34.7 % (39.0-53.0); HEMOGLOBIN 11.3 g/dL (13.0-17.5); LYMPH # 1.3 x10^3/uL (1.0-4.8); LYMPH % 10 % (24-48); MEAN CORPUSCULAR HEMOGLOBIN 30 pg (25-35); MEAN CORPUSCULAR HGB CONC 33 g/dL (31-37); MEAN CORPUSCULAR VOLUME 92 fL (79-100); MONO # 1.2 x10^3/uL (0.0-1.1); MONO % 9 % (0-9); NEUT # 11.1 x10^3uL (1.8-7.7); NEUT % 80 % (31-73); PLATELET COUNT 198 x10^3/uL (140-400); RED BLOOD COUNT 3.78 x10^6/uL (4.30-5.70); RED CELL DISTRIBUTION WIDTH 13.7 % (11.5-14.5); WHITE BLOOD COUNT 13.9 x10^3/uL (4.0-11.0)
[2018-12-31 04:57] LABS: ALBUMIN 1.8 g/dL (3.4-5.0); ALBUMIN/GLOBULIN RATIO 0.5 (1.0-1.7); CALCIUM 8.1 mg/dL (8.5-10.1); CREATININE 1.6 mg/dL (0.7-1.3); GFR 41.5; POTASSIUM 3.9 mmol/L (3.5-5.1); TOTAL BILIRUBIN 0.4 mg/dL (0.2-1.0); TOTAL PROTEIN 5.6 g/dL (6.4-8.2)
[2018-12-31 07:00] VITALS: BP 105/50
[2018-12-31] MEDS: PANTOPRAZOLE 40 MG TABLET.DR. PO SCH (07:37)
--- NOTE | 2018-12-31 09:21 | PDOC ---
SUBJECTIVE Subjective Pt sitting up in chair, comfortable. Not complaining of LUTS today, although says that his symptoms are not any better when asked if Flomax has helped him at all with this. He denies dysuria/hematuria, flank pain and abd pain. OBJECTIVE Objective Physical Exam: General appearance: Alert and Oriented Head: Normocephalic, without obvious abnormality Eyes: conjunctivae/corneas clear. PERRL, EOM's intact. Fundi benign Back:No CVA pain bilaterally Lungs: Regular respirations, nonlabored breathing Abdomen: soft, non-tender. No masses, no organomegaly Pelvic: deferred = Vital Signs Vital Signs Date Time Temp Pulse Resp B/P (MAP) Pulse Ox O2 Delivery O2 Flow Rate FiO2 12/31/18 07:50 Nasal Cannula 2.0 12/31/18 07:00 98.2 67 18 105/50 (68) 92 Nasal Cannula 2.0 98.2 12/31/18 03:44 97.5 58 16 111/56 (74) 95 Nasal Cannula 2.0 97.5 12/30/18 23:50 20 96 Nasal Cannula 2.0 12/30/18 23:20 98.2 69 16 101/46 (64) 96 Nasal Cannula 2.0 98.2 12/30/18 22:49 20 93 Nasal Cannula 2.0 12/30/18 20:15 98.2 75 16 93/56 (68) 93 Room Air 98.2 12/30/18 20:00 Nasal Cannula 2.0 12/30/18 19:00 Room Air 12/30/18 18:18 22 93 Room Air 12/30/18 16:10 93 Nasal Cannula 2.0 12/30/18 15:00 97.6 72 20 101/58 (72) 93 Room Air 97.6 12/30/18 14:43 95 Nasal Cannula 2.0 12/30/18 13:18 22 95 Nasal Cannula 2.0 12/30/18 11:21 98.3 68 20 134/63 (86) 95 Nasal Cannula 2.0 98.3 I & O Intake and Output 12/31/18 06:59 Intake Total 1650 ml Output Total 1675 ml Balance -25 ml Intake Oral 900 ml IV Total 750 ml Output Urine Total 1425 ml Drainage Total 250 ml # Voids 2 PHYSICAL EXAM Physical Exam Physical Exam: General appearance: Alert and Oriented Head: Normocephalic, without obvious abnormality Eyes: conjunctivae/corneas clear. PERRL, EOM's intact. Fundi benign Back:No CVA pain bilaterally Lungs: Regular respirations, nonlabored breathing Abdomen: soft, non-tender. 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 Discussed with patient that it can sometimes take a few days for LUTS to improve. An appointment has been arranged for patient to see Dr. Rust on 01/23/19 at 2 pm. Appointment card put in patient chart. Will follow peripherally until discharge. COMMENT Lab Laboratory Tests Test 12/31/18 03:58 White Blood Count 13.9 x10^3/uL (4.0-11.0) Red Blood Count 3.78 x10^6/uL (4.30-5.70) Hemoglobin 11.3 g/dL (13.0-17.5) Hematocrit 34.7 % (39.0-53.0) Mean Corpuscular Volume 92 fL (79-100) Mean Corpuscular Hemoglobin 30 pg (25-35) Mean Corpuscular Hemoglobin Concent 33 g/dL (31-37) Red Cell Distribution Width 13.7 % (11.5-14.5) Platelet Count 198 x10^3/uL (140-400) Neutrophils (%) (Auto) 80 % (31-73) Lymphocytes (%) (Auto) 10 % (24-48) Monocytes (%) (Auto) 9 % (0-9) Eosinophils (%) (Auto) 1 % (0-3) Basophils (%) (Auto) 0 % (0-3) Neutrophils # (Auto) 11.1 x10^3uL (1.8-7.7) Lymphocytes # (Auto) 1.3 x10^3/uL (1.0-4.8) Monocytes # (Auto) 1.2 x10^3/uL (0.0-1.1) Eosinophils # (Auto) 0.2 x10^3/uL (0.0-0.7) Basophils # (Auto) 0.0 x10^3/uL (0.0-0.2) Sodium Level 136 mmol/L (136-145) Potassium Level 3.9 mmol/L (3.5-5.1) Chloride Level 101 mmol/L (98-107) Carbon Dioxide Level 25 mmol/L (21-32) Anion Gap 10 (6-14) Blood Urea Nitrogen 32 mg/dL (8-26) Creatinine 1.6 mg/dL (0.7-1.3) Estimated GFR (Cockcroft-Gault) 41.5 BUN/Creatinine Ratio 20 (6-20) Glucose Level 130 mg/dL (70-99) Calcium Level 8.1 mg/dL (8.5-10.1) Total Bilirubin 0.4 mg/dL (0.2-1.0) Aspartate Amino Transf (AST/SGOT) 43 U/L (15-37) Alanine Aminotransferase (ALT/SGPT) 39 U/L (16-63) Alkaline Phosphatase 93 U/L (46-116) Total Protein 5.6 g/dL (6.4-8.2) Albumin 1.8 g/dL (3.4-5.0) Albumin/Globulin Ratio 0.5 (1.0-1.7) JUAN WYNN APRN Dec 31, 2018 09:21
[2018-12-31] MEDS: ASPIRIN ENTERIC COATED 325 MG TABLET.DR. PO SCH (09:43)
[2018-12-31] MEDS: MULTIVITAMIN with MINERAL TABLET. PO SCH (09:43)
[2018-12-31] MEDS: CHOLECALCIFEROL (VITAMIN D3) 1,000 UNIT TABLET PO SCH (09:43)
[2018-12-31] MEDS: METOPROLOL SUCC 24HR ER 25 MG TAB.ER.24H. PO SCH (09:43)
[2018-12-31] MEDS: TAMSULOSIN 0.4 MG CAP.ER.24H. PO SCH (09:43)
[2018-12-31] MEDS: LACTOBACILLUS RHAMNOSUS GG 1 CAPSULE. PO SCH ×2 (09:43→20:45)
--- NOTE | 2018-12-31 09:47 | PDOC ---
LACHO OCONNOR [employer] 12/31/18 0947: SURGICAL PROGRESS NOTE Subjective no complaints no n/v tolerating diet Vital Signs Vital Signs Date Time Temp Pulse Resp B/P (MAP) Pulse Ox O2 Delivery O2 Flow Rate FiO2 12/31/18 09:43 67 105/50 12/31/18 07:50 Nasal Cannula 2.0 12/31/18 07:00 98.2 18 92 98.2 I&O Intake and Output 12/31/18 06:59 Intake Total 1650 ml Output Total 1675 ml Balance -25 ml Intake Oral 900 ml IV Total 750 ml Output Urine Total 1425 ml Drainage Total 250 ml # Voids 2 General: Alert, Oriented X3, Cooperative, No acute distress Abdomen: Soft, Other (c tube in place) Labs Laboratory Tests Test 12/29/18 11:45 12/29/18 17:37 12/30/18 05:00 12/31/18 03:58 Urine Collection Type Unknown Urine Color Other Urine Clarity Cloudy Urine pH 5.5 Urine Specific [place] 1.020 Urine Protein 30 mg/dL (NEG-TRACE) Urine Glucose (UA) Negative mg/dL (NEG) Urine Ketones (Stick) Trace mg/dL (NEG) Urine Blood Large (NEG) Urine Nitrite Negative (NEG) Urine Bilirubin Small (NEG) Urine Urobilinogen Dipstick 0.2 mg/dL (0.2 mg/dL) Urine Leukocyte Esterase Moderate (NEG) Urine RBC >40 /HPF (0-2) Urine WBC Occ /HPF (0-4) Urine Bacteria 0 /HPF (0-FEW) Prothrombin Time 14.4 SEC (11.7-14.0) Prothromb Time International Ratio 1.2 (0.8-1.1) White Blood Count 19.4 x10^3/uL (4.0-11.0) 13.9 x10^3/uL (4.0-11.0) Red Blood Count 4.30 x10^6/uL (4.30-5.70) 3.78 x10^6/uL (4.30-5.70) Hemoglobin 13.1 g/dL (13.0-17.5) 11.3 g/dL (13.0-17.5) Hematocrit 39.5 % (39.0-53.0) 34.7 % (39.0-53.0) Mean Corpuscular Volume 92 fL (79-100) 92 fL (79-100) Mean Corpuscular Hemoglobin 31 pg (25-35) 30 pg (25-35) Mean Corpuscular Hemoglobin Concent 33 g/dL (31-37) 33 g/dL (31-37) Red Cell Distribution Width 13.6 % (11.5-14.5) 13.7 % (11.5-14.5) Platelet Count 171 x10^3/uL (140-400) 198 x10^3/uL (140-400) Neutrophils (%) (Auto) 91 % (31-73) 80 % (31-73) Lymphocytes (%) (Auto) 2 % (24-48) 10 % (24-48) Monocytes (%) (Auto) 7 % (0-9) 9 % (0-9) Eosinophils (%) (Auto) 0 % (0-3) 1 % (0-3) Basophils (%) (Auto) 0 % (0-3) 0 % (0-3) Neutrophils # (Auto) 17.5 x10^3uL (1.8-7.7) 11.1 x10^3uL (1.8-7.7) Lymphocytes # (Auto) 0.5 x10^3/uL (1.0-4.8) 1.3 x10^3/uL (1.0-4.8) Monocytes # (Auto) 1.4 x10^3/uL (0.0-1.1) 1.2 x10^3/uL (0.0-1.1) Eosinophils # (Auto) 0.0 x10^3/uL (0.0-0.7) 0.2 x10^3/uL (0.0-0.7) Basophils # (Auto) 0.0 x10^3/uL (0.0-0.2) 0.0 x10^3/uL (0.0-0.2) Sodium Level 136 mmol/L (136-145) 136 mmol/L (136-145) Potassium Level 4.2 mmol/L (3.5-5.1) 3.9 mmol/L (3.5-5.1) Chloride Level 101 mmol/L (98-107) 101 mmol/L (98-107) Carbon Dioxide Level 24 mmol/L (21-32) 25 mmol/L (21-32) Anion Gap 11 (6-14) 10 (6-14) Blood Urea Nitrogen 36 mg/dL (8-26) 32 mg/dL (8-26) Creatinine 1.6 mg/dL (0.7-1.3) 1.6 mg/dL (0.7-1.3) Estimated GFR (Cockcroft-Gault) 41.5 41.5 BUN/Creatinine Ratio 23 (6-20) 20 (6-20) Glucose Level 167 mg/dL (70-99) 130 mg/dL (70-99) Calcium Level 8.4 mg/dL (8.5-10.1) 8.1 mg/dL (8.5-10.1) Total Bilirubin 0.8 mg/dL (0.2-1.0) 0.4 mg/dL (0.2-1.0) Aspartate Amino Transf (AST/SGOT) 48 U/L (15-37) 43 U/L (15-37) Alanine Aminotransferase (ALT/SGPT) 42 U/L (16-63) 39 U/L (16-63) Alkaline Phosphatase 89 U/L (46-116) 93 U/L (46-116) Total Protein 6.2 g/dL (6.4-8.2) 5.6 g/dL (6.4-8.2) Albumin 2.1 g/dL (3.4-5.0) 1.8 g/dL (3.4-5.0) Albumin/Globulin Ratio 0.5 (1.0-1.7) 0.5 (1.0-1.7) Laboratory Tests Test 12/31/18 03:58 White Blood Count 13.9 x10^3/uL (4.0-11.0) Red Blood Count 3.78 x10^6/uL (4.30-5.70) Hemoglobin 11.3 g/dL (13.0-17.5) Hematocrit 34.7 % (39.0-53.0) Mean Corpuscular Volume 92 fL (79-100) Mean Corpuscular Hemoglobin 30 pg (25-35) Mean Corpuscular Hemoglobin Concent 33 g/dL (31-37) Red Cell Distribution Width 13.7 % (11.5-14.5) Platelet Count 198 x10^3/uL (140-400) Neutrophils (%) (Auto) 80 % (31-73) Lymphocytes (%) (Auto) 10 % (24-48) Monocytes (%) (Auto) 9 % (0-9) Eosinophils (%) (Auto) 1 % (0-3) Basophils (%) (Auto) 0 % (0-3) Neutrophils # (Auto) 11.1 x10^3uL (1.8-7.7) Lymphocytes # (Auto) 1.3 x10^3/uL (1.0-4.8) Monocytes # (Auto) 1.2 x10^3/uL (0.0-1.1) Eosinophils # (Auto) 0.2 x10^3/uL (0.0-0.7) Basophils # (Auto) 0.0 x10^3/uL (0.0-0.2) Sodium Level 136 mmol/L (136-145) Potassium Level 3.9 mmol/L (3.5-5.1) Chloride Level 101 mmol/L (98-107) Carbon Dioxide Level 25 mmol/L (21-32) Anion Gap 10 (6-14) Blood Urea Nitrogen 32 mg/dL (8-26) Creatinine 1.6 mg/dL (0.7-1.3) Estimated GFR (Cockcroft-Gault) 41.5 BUN/Creatinine Ratio 20 (6-20) Glucose Level 130 mg/dL (70-99) Calcium Level 8.1 mg/dL (8.5-10.1) Total Bilirubin 0.4 mg/dL (0.2-1.0) Aspartate Amino Transf (AST/SGOT) 43 U/L (15-37) Alanine Aminotransferase (ALT/SGPT) 39 U/L (16-63) Alkaline Phosphatase 93 U/L (46-116) Total Protein 5.6 g/dL (6.4-8.2) Albumin 1.8 g/dL (3.4-5.0) Albumin/Globulin Ratio 0.5 (1.0-1.7) Problem List Problems Medical Problems: (1) Elevated troponin Status: Acute (2) Influenza A Status: Acute Assessment/Plan continue c tube x 6 weeks KEESHA POLLACK MD 12/31/18 1703: SURGICAL PROGRESS NOTE Assessment/Plan pt seen and examined agree with above LACHO OCONNOR APRN Dec 31, 2018 09:47 KEESHA POLLACK MD Dec 31, 2018 17:03
--- NOTE | 2018-12-31 10:43 | NUR ---
SS following up with discharge planning. Pt accepted at [facility] pending insurance authorization. All clinical was sent to [place] this morning. SS will await insurance authorization and discharge orders and will proceed accordingly. Physician notified.
--- NOTE | 2018-12-31 11:02 | PDOC ---
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 History of Present Illness History of Present Illness Mr Malik was seen and examined this morning. Patient has new complaints this am. of pain with cough near tube site Patient had cholesystostomy for acute cholecystitis. Started on Zosyn. Discussed case with RN Pt with mild/mod distress, resting in bed Pt white count still elevated at 13.9 Creatinine trending down, on NS. Nephrology, Urology, GI consulted. Patient has completed tamiflu to have c-tube drain x 6 weeks to PP TOMORROW IF STABLE VISIT TIME AND CHART REVIEW 46 MIN 12/31 Vitals Vitals Vital Signs Date Time Temp Pulse Resp B/P (MAP) Pulse Ox O2 Delivery O2 Flow Rate FiO2 12/31/18 09:43 67 105/50 12/31/18 07:50 Nasal Cannula 2.0 12/31/18 07:00 98.2 18 92 98.2 Physical Exam Physical Exam GENERAL: NAD, Alert HEENT: PERRL, OC/OP NECK: Supple, no JVD, no LN LUNGS: Clear HEART: S1S2, no gallop, no murmur ABD: Soft, NT, no organomegaly, no rebound EXT: No edema, no cyanosis [employer]PRES[employer]IVE: Alert, oriented x 3, no focal neurologic deficit SKIN: No rash IV: ok General: Alert, Oriented X3, Cooperative, No acute distress, mild distress Heart: Regular rate, Normal S1, Normal S2 Lungs: Clear Abdomen: Soft, Other (c tube in place) Extremities: No clubbing, No cyanosis Skin: Other (warm) Labs LABS Examination: CT ABDOMEN PELVIS WO CONTRAST History: left hydro Comparison/Correlation: None Findings: Axial images of the abdomen and pelvis were obtained without contrast. Right costophrenic sulcus linear atelectasis or scarring noted. Minimal right pleural effusion. Very small left pleural effusion. Unenhanced liver, spleen, pancreas, and adrenal glands are normal. Gallbladder is distended with pericholecystic stranding. Dependent calculi along the posterior wall of the gallbladder noted. Calculus at the gallbladder neck an cystic duct junction measuring 1 cm in diameter is present. No radiopaque right collecting system calculi. Left hydronephrosis which appears represent ureteropelvic junction obstruction is present. Possibility of parapelvic cysts also being present is raised. There is no perinephric stranding. 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 Diverticulosis of the colon is present. No extraluminal gas. No loculated collections. No bowel obstruction. Urinary bladder is unremarkable. Bony structures are unremarkable for age. Impression: Acute cholecystitis. Obstructive duct at the junction of the gallbladder neck and cystic duct appears to be present. Cholelithiasis. Results reported to patient's nurse Ellie on 12/29/2018 at 3:50 PM. Saccular infrarenal abdominal aortic aneurysm. 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 Laboratory Tests Test 12/31/18 03:58 White Blood Count 13.9 x10^3/uL (4.0-11.0) Red Blood Count 3.78 x10^6/uL (4.30-5.70) Hemoglobin 11.3 g/dL (13.0-17.5) Hematocrit 34.7 % (39.0-53.0) Mean Corpuscular Volume 92 fL (79-100) Mean Corpuscular Hemoglobin 30 pg (25-35) Mean Corpuscular Hemoglobin Concent 33 g/dL (31-37) Red Cell Distribution Width 13.7 % (11.5-14.5) Platelet Count 198 x10^3/uL (140-400) Neutrophils (%) (Auto) 80 % (31-73) Lymphocytes (%) (Auto) 10 % (24-48) Monocytes (%) (Auto) 9 % (0-9) Eosinophils (%) (Auto) 1 % (0-3) Basophils (%) (Auto) 0 % (0-3) Neutrophils # (Auto) 11.1 x10^3uL (1.8-7.7) Lymphocytes # (Auto) 1.3 x10^3/uL (1.0-4.8) Monocytes # (Auto) 1.2 x10^3/uL (0.0-1.1) Eosinophils # (Auto) 0.2 x10^3/uL (0.0-0.7) Basophils # (Auto) 0.0 x10^3/uL (0.0-0.2) Sodium Level 136 mmol/L (136-145) Potassium Level 3.9 mmol/L (3.5-5.1) Chloride Level 101 mmol/L (98-107) Carbon Dioxide Level 25 mmol/L (21-32) Anion Gap 10 (6-14) Blood Urea Nitrogen 32 mg/dL (8-26) Creatinine 1.6 mg/dL (0.7-1.3) Estimated GFR (Cockcroft-Gault) 41.5 BUN/Creatinine Ratio 20 (6-20) Glucose Level 130 mg/dL (70-99) Calcium Level 8.1 mg/dL (8.5-10.1) Total Bilirubin 0.4 mg/dL (0.2-1.0) Aspartate Amino Transf (AST/SGOT) 43 U/L (15-37) Alanine Aminotransferase (ALT/SGPT) 39 U/L (16-63) Alkaline Phosphatase 93 U/L (46-116) Total Protein 5.6 g/dL (6.4-8.2) Albumin 1.8 g/dL (3.4-5.0) Albumin/Globulin Ratio 0.5 (1.0-1.7) Assessment and Plan Assessmemt and Plan Problems Medical Problems: (1) Elevated troponin Status: Acute (2) Influenza A Status: Acute #: [id number] LIZETTE: 12/24/18 STATUS: COMP REQ #: [id number] RECD: 12/24/[address] [facility] [address]: CLEVELAND FARLEY MD SOURCE: BLOOD ENTR: 12/24/[address] [facility] [address]: SPDESC: ORDERED: BCULT Procedure Result BLOOD CULTURE Final NO GROWTH AFTER 5 DAYS Comment Review of Relevant I have reviewed the following items timoteo (where applicable) has been applied. Labs Laboratory Tests Test 12/29/18 11:45 12/29/18 17:37 12/30/18 05:00 12/31/18 03:58 Urine Collection Type Unknown Urine Color Other Urine Clarity Cloudy Urine pH 5.5 Urine Specific [place] 1.020 Urine Protein 30 mg/dL (NEG-TRACE) Urine Glucose (UA) Negative mg/dL (NEG) Urine Ketones (Stick) Trace mg/dL (NEG) Urine Blood Large (NEG) Urine Nitrite Negative (NEG) Urine Bilirubin Small (NEG) Urine Urobilinogen Dipstick 0.2 mg/dL (0.2 mg/dL) Urine Leukocyte Esterase Moderate (NEG) Urine RBC >40 /HPF (0-2) Urine WBC Occ /HPF (0-4) Urine Bacteria 0 /HPF (0-FEW) Prothrombin Time 14.4 SEC (11.7-14.0) Prothromb Time International Ratio 1.2 (0.8-1.1) White Blood Count 19.4 x10^3/uL (4.0-11.0) 13.9 x10^3/uL (4.0-11.0) Red Blood Count 4.30 x10^6/uL (4.30-5.70) 3.78 x10^6/uL (4.30-5.70) Hemoglobin 13.1 g/dL (13.0-17.5) 11.3 g/dL (13.0-17.5) Hematocrit 39.5 % (39.0-53.0) 34.7 % (39.0-53.0) Mean Corpuscular Volume 92 fL (79-100) 92 fL (79-100) Mean Corpuscular Hemoglobin 31 pg (25-35) 30 pg (25-35) Mean Corpuscular Hemoglobin Concent 33 g/dL (31-37) 33 g/dL (31-37) Red Cell Distribution Width 13.6 % (11.5-14.5) 13.7 % (11.5-14.5) Platelet Count 171 x10^3/uL (140-400) 198 x10^3/uL (140-400) Neutrophils (%) (Auto) 91 % (31-73) 80 % (31-73) Lymphocytes (%) (Auto) 2 % (24-48) 10 % (24-48) Monocytes (%) (Auto) 7 % (0-9) 9 % (0-9) Eosinophils (%) (Auto) 0 % (0-3) 1 % (0-3) Basophils (%) (Auto) 0 % (0-3) 0 % (0-3) Neutrophils # (Auto) 17.5 x10^3uL (1.8-7.7) 11.1 x10^3uL (1.8-7.7) Lymphocytes # (Auto) 0.5 x10^3/uL (1.0-4.8) 1.3 x10^3/uL (1.0-4.8) Monocytes # (Auto) 1.4 x10^3/uL (0.0-1.1) 1.2 x10^3/uL (0.0-1.1) Eosinophils # (Auto) 0.0 x10^3/uL (0.0-0.7) 0.2 x10^3/uL (0.0-0.7) Basophils # (Auto) 0.0 x10^3/uL (0.0-0.2) 0.0 x10^3/uL (0.0-0.2) Sodium Level 136 mmol/L (136-145) 136 mmol/L (136-145) Potassium Level 4.2 mmol/L (3.5-5.1) 3.9 mmol/L (3.5-5.1) Chloride Level 101 mmol/L (98-107) 101 mmol/L (98-107) Carbon Dioxide Level 24 mmol/L (21-32) 25 mmol/L (21-32) Anion Gap 11 (6-14) 10 (6-14) Blood Urea Nitrogen 36 mg/dL (8-26) 32 mg/dL (8-26) Creatinine 1.6 mg/dL (0.7-1.3) 1.6 mg/dL (0.7-1.3) Estimated GFR (Cockcroft-Gault) 41.5 41.5 BUN/Creatinine Ratio 23 (6-20) 20 (6-20) Glucose Level 167 mg/dL (70-99) 130 mg/dL (70-99) Calcium Level 8.4 mg/dL (8.5-10.1) 8.1 mg/dL (8.5-10.1) Total Bilirubin 0.8 mg/dL (0.2-1.0) 0.4 mg/dL (0.2-1.0) Aspartate Amino Transf (AST/SGOT) 48 U/L (15-37) 43 U/L (15-37) Alanine Aminotransferase (ALT/SGPT) 42 U/L (16-63) 39 U/L (16-63) Alkaline Phosphatase 89 U/L (46-116) 93 U/L (46-116) Total Protein 6.2 g/dL (6.4-8.2) 5.6 g/dL (6.4-8.2) Albumin 2.1 g/dL (3.4-5.0) 1.8 g/dL (3.4-5.0) Albumin/Globulin Ratio 0.5 (1.0-1.7) 0.5 (1.0-1.7) Laboratory Tests Test 12/31/18 03:58 White Blood Count 13.9 x10^3/uL (4.0-11.0) Red Blood Count 3.78 x10^6/uL (4.30-5.70) Hemoglobin 11.3 g/dL (13.0-17.5) Hematocrit 34.7 % (39.0-53.0) Mean Corpuscular Volume 92 fL (79-100) Mean Corpuscular Hemoglobin 30 pg (25-35) Mean Corpuscular Hemoglobin Concent 33 g/dL (31-37) Red Cell Distribution Width 13.7 % (11.5-14.5) Platelet Count 198 x10^3/uL (140-400) Neutrophils (%) (Auto) 80 % (31-73) Lymphocytes (%) (Auto) 10 % (24-48) Monocytes (%) (Auto) 9 % (0-9) Eosinophils (%) (Auto) 1 % (0-3) Basophils (%) (Auto) 0 % (0-3) Neutrophils # (Auto) 11.1 x10^3uL (1.8-7.7) Lymphocytes # (Auto) 1.3 x10^3/uL (1.0-4.8) Monocytes # (Auto) 1.2 x10^3/uL (0.0-1.1) Eosinophils # (Auto) 0.2 x10^3/uL (0.0-0.7) Basophils # (Auto) 0.0 x10^3/uL (0.0-0.2) Sodium Level 136 mmol/L (136-145) Potassium Level 3.9 mmol/L (3.5-5.1) Chloride Level 101 mmol/L (98-107) Carbon Dioxide Level 25 mmol/L (21-32) Anion Gap 10 (6-14) Blood Urea Nitrogen 32 mg/dL (8-26) Creatinine 1.6 mg/dL (0.7-1.3) Estimated GFR (Cockcroft-Gault) 41.5 BUN/Creatinine Ratio 20 (6-20) Glucose Level 130 mg/dL (70-99) Calcium Level 8.1 mg/dL (8.5-10.1) Total Bilirubin 0.4 mg/dL (0.2-1.0) Aspartate Amino Transf (AST/SGOT) 43 U/L (15-37) Alanine Aminotransferase (ALT/SGPT) 39 U/L (16-63) Alkaline Phosphatase 93 U/L (46-116) Total Protein 5.6 g/dL (6.4-8.2) Albumin 1.8 g/dL (3.4-5.0) Albumin/Globulin Ratio 0.5 (1.0-1.7) Microbiology 12/25/18 Blood Culture - Final, Complete NO GROWTH AFTER 5 DAYS Medications Current Medications Acetaminophen (Tylenol) 1,000 mg 1X ONCE PO Last administered on 12/24/18 19: 30; Start 12/24/18 at 19:30; Stop 12/24/18 at 19:33; Status DC Sodium Chloride 1,000 ml @ 125 mls/hr 1X ONCE IV Last administered on 19:30; Start 12/24/18 at 19:30; Stop 12/25/18 at 03:29; Status DC Oseltamivir Phosphate (Tamiflu) 75 mg 1X ONCE PO Last administered on 20:00; Start 12/24/18 at 20:00; Stop 12/24/18 at 20:01; Status DC Aspirin (Elier Aspirin) 325 mg 1X ONCE PO Last administered on 12/24/18 21:58 ; Start 12/24/18 at 22:00; Stop 12/24/18 at 22:01; Status DC Oseltamivir Phosphate (Tamiflu) 30 mg BID PO Last administered on 12/29/18 11: 00; Start 12/25/18 at 09:00; Stop 12/29/18 at 09:01; Status DC Aspirin (Ecotrin) 325 mg DAILYWBKFT PO Last administered on 12/31/18 09:43; Start 12/25/18 at 12:00 Atorvastatin Calcium (Lipitor) 40 mg QHS PO Last administered on 12/30/18 22: 50; Start 12/25/18 at 21:00 Metoprolol Succinate (Toprol Xl) 25 mg DAILY PO Last administered on 12/31/18 09:43; Start 12/25/18 at 12:00 Vitamin D (Vitamin D3) 2,000 unit DAILY PO Last administered on 12/31/18 09:43 ; Start 12/25/18 at 12:00 Losartan Potassium (Cozaar) 100 mg DAILY PO Last administered on 12/28/18 09:18 ; Start 12/25/18 at 12:00; Stop 12/28/18 at 13:46; Status DC Multivitamins (Thera M Plus) 1 tab DAILY PO Last administered on 12/31/18 09: 43; Start 12/25/18 at 12:00 Pantoprazole Sodium (Protonix) 40 mg DAILYAC PO Last administered on 12/31/18 07:37; Start 12/25/18 at 12:00 Calcium Carbonate/ Glycine (Tums) 500 mg PRN AFTMEALHC PRN PO INDIGESTION Last administered on 12/26/18 08:34; Start 12/25/18 at 22:15 Trazodone HCl (Desyrel) 50 mg PRN QHS PRN PO INSOMNIA Last administered on 20:16; Start 12/26/18 at 21:00 Amoxicillin/ Clavulanate Potassium (Augmentin 875/ 125mg) 1 tab BID PO Last administered on 12/29/18 11:01; Start 12/28/18 at 12:00; Stop 12/29/18 at 16:00; Status DC Sodium Chloride 1,000 ml @ 75 mls/hr [id number] IV ; Start 12/28/18 at 12:00; Stop 12/29/18 at 13:13; Status DC Lactobacillus Rhamnosus (Culturelle) 1 cap BID PO Last administered on at 09:43; Start 12/28/18 at 14:00 Acetaminophen (Tylenol) 500 mg PRN Q6HRS PRN PO MILD PAIN / TEMP Last administered on 12/29/18 16:10; Start 12/28/18 at 20:15 Sodium Chloride 1,000 ml @ 75 mls/hr [id number] IV Last administered on at 00:50; Start 12/29/18 at 11:30 Tamsulosin HCl (Flomax) 0.4 mg DAILY PO Last administered on 12/31/18 09:43; Start 12/29/18 at 13:00 Piperacillin Sod/ Tazobactam Sod (Zosyn Per Pharmacy) 1 each PRN DAILY PRN MC SEE COMMENTS; Start 12/29/18 at 16:00 Piperacillin Sod/ Tazobactam Sod 2.25 gm/Sodium Chloride 50 ml @ 100 mls/hr Q6HRS IV Last administered on 12/31/18 06:27; Start 12/29/18 at 17:00 Lidocaine/Sodium Bicarbonate (Buffered Lidocaine 1%) 3 ml STK-MED ONCE .ROUTE ; Start 12/29/18 at 18:42; Stop 12/29/18 at 18:43; Status DC Iohexol (Omnipaque 300 Mg/ml) 100 ml STK-MED ONCE .ROUTE ; Start 12/29/18 at 18: 43; Stop 12/29/18 at 18:44; Status DC Hydrocortisone Sodium Succinate (Solu-CORTEF) 250 mg STK-MED ONCE .ROUTE ; Start 12/29/18 at 18:48; Stop 12/29/18 at 18:49; Status DC Midazolam HCl (Versed) 2 mg STK-MED ONCE .ROUTE ; Start 12/29/18 at 18:49; Stop 12/29/18 at 18:50; Status DC Fentanyl Citrate (Fentanyl 2ml Vial) 100 mcg STK-MED ONCE .ROUTE ; Start at 18:49; Stop 12/29/18 at 18:50; Status DC Diphenhydramine HCl (Benadryl) 50 mg STK-MED ONCE .ROUTE ; Start 12/29/18 at 18: 49; Stop 12/29/18 at 18:50; Status DC Iodixanol (Visipaque 320) 100 ml STK-MED ONCE .ROUTE ; Start 12/29/18 at 18:51; Stop 12/29/18 at 18:52; Status DC Acetaminophen/ Hydrocodone Bitart (Lortab 5/325) 1 tab PRN Q4HRS PRN PO MODERATE PAIN Last administered on 12/30/18at 22:49; Start 12/29/18 at 19:15 Acetaminophen/ Hydrocodone Bitart (Lortab 5/325) 2 tab PRN Q4HRS PRN PO SEVERE PAIN; Start 12/29/18 at 19:15 Cefazolin Sodium 50 ml @ As Directed STK-MED ONCE IV ; Start 12/29/18 at 19:25; Stop 12/29/18 at 19:26; Status DC Lidocaine/Sodium Bicarbonate (Buffered Lidocaine 1%) 6 ml 1X ONCE IJ Last administered on 12/29/18at 19:55; Start 12/29/18 at 19:45; Stop 12/29/18 at 19:48; Status DC Midazolam HCl (Versed) 1.5 mg 1X ONCE IV Last administered on 12/29/18at 19:56; Start 12/29/18 at 19:45; Stop 12/29/18 at 19:48; Status DC Fentanyl Citrate (Fentanyl 2ml Vial) 100 mcg 1X ONCE IV Last administered on 19:56; Start 12/29/18 at 20:00; Stop 12/29/18 at 20:01; Status DC Iodixanol (Visipaque 320) 16 ml 1X ONCE IART Last administered on 12/29/18at 19: 55; Start 12/29/18 at 19:45; Stop 12/29/18 at 19:48; Status DC Cefazolin Sodium 50 ml @ 100 mls/hr 1X ONCE IV Last administered on 12/29/18at 19:55; Start 12/29/18 at 19:45; Stop 12/29/18 at 20:14; Status DC Hydrocortisone Sodium Succinate (Solu-CORTEF) 100 mg 1X ONCE IV Last administered on 12/29/18at 19:55; Start 12/29/18 at 19:45; Stop 12/29/18 at 19:48; Status DC Diphenhydramine HCl (Benadryl) 50 mg 1X ONCE IVP Last administered on 19:56; Start 12/29/18 at 19:45; Stop 12/29/18 at 19:48; Status DC Throat Lozenges (Cepacol Sore Throat Lozenge) 1 wilner PRN Q2HRS PRN PO SORE THROAT Last administered on 12/30/18at 22:50; Start 12/30/18 at 09:45 Fentanyl Citrate (Fentanyl 2ml Vial) 50 mcg PRN Q2HR PRN IV SEVERE PAIN Last administered on 12/30/18at 14:43; Start 12/30/18 at 14:30 Active Scripts Active Atorvastatin Calcium 40 Mg Tablet 40 Mg PO QHS 30 Days Aspirin Ec (Aspirin) 325 Mg Tablet.dr 325 Mg PO DAILYWBKFT 30 Days Reported Tamiflu (Oseltamivir Phosphate) 30 Mg Capsule 1 Cap PO BID Vitamin B-12 (Cyanocobalamin (Vitamin B-12)) 1,000 Mcg Tablet 1 Tab PO DAILY Metoprolol Succinate ( Xl ) (Metoprolol Succinate) 25 Mg Tab.er.24h 1 Tab PO DAILY Losartan Potassium 100 Mg Tablet 100 Mg PO DAILY Multivitamins (Multivitamin) 1 Each Tablet 1 Tab PO DAILY Vitamin D (Cholecalciferol (Vitamin D3)) 2,000 Unit Capsule 1 Cap PO DAILY Vitals/I & O Vital Sign - Last 24 Hours 12/30/18 12/30/18 12/30/18 12/30/18 11:21 13:18 14:43 15:00 Temp 98.3 97.6 98.3 97.6 Pulse 68 72 Resp 20 22 20 B/P (MAP) 134/63 (86) 101/58 (72) Pulse Ox 95 95 95 93 O2 Delivery Nasal Cannula Nasal Cannula Nasal Cannula Room Air O2 Flow Rate 2.0 2.0 2.0 12/30/18 12/30/18 12/30/18 12/30/18 16:10 18:18 19:00 20:00 Resp 22 Pulse Ox 93 93 O2 Delivery Nasal Cannula Room Air Room Air Nasal Cannula O2 Flow Rate 2.0 2.0 12/30/18 12/30/18 12/30/18 12/30/18 20:15 22:49 23:20 23:50 Temp 98.2 98.2 98.2 98.2 Pulse 75 69 Resp 16 20 16 20 B/P (MAP) 93/56 (68) 101/46 (64) Pulse Ox 93 93 96 96 O2 Delivery Room Air Nasal Cannula Nasal Cannula Nasal Cannula O2 Flow Rate 2.0 2.0 2.0 12/31/18 12/31/18 12/31/18 12/31/18 03:44 07:00 07:50 09:43 Temp 97.5 98.2 97.5 98.2 Pulse 58 67 67 Resp 16 18 B/P (MAP) 111/56 (74) 105/50 (68) 105/50 Pulse Ox 95 92 O2 Delivery Nasal Cannula Nasal Cannula Nasal Cannula O2 Flow Rate 2.0 2.0 2.0 Intake and Output 12/30/18 12/30/18 12/31/18 14:59 22:59 06:59 Intake Total 800 ml 850 ml Output Total 800 ml 785 ml 90 ml Balance -800 ml 15 ml 760 ml MERCY LARSON MD Dec 31, 2018 11:01
[2018-12-31 11:11] VITALS: BP 122/61
--- NOTE | 2018-12-31 11:14 | PDOC ---
Renal-Progress Notes Subjective Notes Notes NOTHING NEW REPORTED History of Present Illness Hx of present illness STABLE Vitals Vitals Vital Signs Date Time Temp Pulse Resp B/P (MAP) Pulse Ox O2 Delivery O2 Flow Rate FiO2 12/31/18 09:43 67 105/50 12/31/18 07:50 Nasal Cannula 2.0 12/31/18 07:00 98.2 18 92 98.2 Weight Weight [ ] I.O. Intake and Output Intake and Output 12/31/18 06:59 Intake Total 1650 ml Output Total 1675 ml Balance -25 ml Intake Oral 900 ml IV Total 750 ml Output Urine Total 1425 ml Drainage Total 250 ml # Voids 2 Labs Labs Laboratory Tests Test 12/31/18 03:58 White Blood Count 13.9 x10^3/uL (4.0-11.0) Red Blood Count 3.78 x10^6/uL (4.30-5.70) Hemoglobin 11.3 g/dL (13.0-17.5) Hematocrit 34.7 % (39.0-53.0) Mean Corpuscular Volume 92 fL (79-100) Mean Corpuscular Hemoglobin 30 pg (25-35) Mean Corpuscular Hemoglobin Concent 33 g/dL (31-37) Red Cell Distribution Width 13.7 % (11.5-14.5) Platelet Count 198 x10^3/uL (140-400) Neutrophils (%) (Auto) 80 % (31-73) Lymphocytes (%) (Auto) 10 % (24-48) Monocytes (%) (Auto) 9 % (0-9) Eosinophils (%) (Auto) 1 % (0-3) Basophils (%) (Auto) 0 % (0-3) Neutrophils # (Auto) 11.1 x10^3uL (1.8-7.7) Lymphocytes # (Auto) 1.3 x10^3/uL (1.0-4.8) Monocytes # (Auto) 1.2 x10^3/uL (0.0-1.1) Eosinophils # (Auto) 0.2 x10^3/uL (0.0-0.7) Basophils # (Auto) 0.0 x10^3/uL (0.0-0.2) Sodium Level 136 mmol/L (136-145) Potassium Level 3.9 mmol/L (3.5-5.1) Chloride Level 101 mmol/L (98-107) Carbon Dioxide Level 25 mmol/L (21-32) Anion Gap 10 (6-14) Blood Urea Nitrogen 32 mg/dL (8-26) Creatinine 1.6 mg/dL (0.7-1.3) Estimated GFR (Cockcroft-Gault) 41.5 BUN/Creatinine Ratio 20 (6-20) Glucose Level 130 mg/dL (70-99) Calcium Level 8.1 mg/dL (8.5-10.1) Total Bilirubin 0.4 mg/dL (0.2-1.0) Aspartate Amino Transf (AST/SGOT) 43 U/L (15-37) Alanine Aminotransferase (ALT/SGPT) 39 U/L (16-63) Alkaline Phosphatase 93 U/L (46-116) Total Protein 5.6 g/dL (6.4-8.2) Albumin 1.8 g/dL (3.4-5.0) Albumin/Globulin Ratio 0.5 (1.0-1.7) Micro Micro Microbiology 12/25/18 Blood Culture - Final, Complete NO GROWTH AFTER 5 DAYS Review of Systems Constitutional: yes: alert Ears/Nose/Throat: Yes: no symptom reported Eyes: Yes: no symptom reported Pulmonary: Yes no symptom reported Gastrointestional: Yes: no symptom reported Genitourinary: Yes: no symptom reported Musculoskeletal: Yes: no symptom reported Skin: Yes no symptom reported Psychiatric/Neurological: Yes: no symptom reported Endocrine: Yes: no symptom reported Physical Exam General Appearance: no apparent distress Skin: warm Respiratory: decreased breath sounds Heart: S1S2 Abdomen: soft, bowel sounds present Genitourinary: bladder flat Extremities: pulses present Neurology: oriented Assessment Assessment IMP HERBER-IMPROVING WITH CR DOWN TO 1.6 HYPOTENSION-BETTER S/P PERC CHOLECYSTOTOMY LEFT HYDRO-AGREE THIS IS PROB NOT FUNCTIONAL PLAN CONT OFF ARB CONT IVF'S WILL FOLLOW REGIS STILL MD Dec 31, 2018 11:14
--- NOTE | 2018-12-31 13:55 | PDOC ---
Subjective: Subjective: Maybe a little sore around tube. Not hungry - ate some salad and cake for lunch. Objective: Vital Signs: Vital Signs Date Time Temp Pulse Resp B/P (MAP) Pulse Ox O2 Delivery O2 Flow Rate FiO2 12/31/18 11:11 97.4 71 18 122/61 (81) 92 Nasal Cannula 2.0 97.4 Labs: Laboratory Tests Test 12/31/18 03:58 White Blood Count 13.9 x10^3/uL Red Blood Count 3.78 x10^6/uL Hemoglobin 11.3 g/dL Hematocrit 34.7 % Mean Corpuscular Volume 92 fL Mean Corpuscular Hemoglobin 30 pg Mean Corpuscular Hemoglobin Concent 33 g/dL Red Cell Distribution Width 13.7 % Platelet Count 198 x10^3/uL Neutrophils (%) (Auto) 80 % Lymphocytes (%) (Auto) 10 % Monocytes (%) (Auto) 9 % Eosinophils (%) (Auto) 1 % Basophils (%) (Auto) 0 % Neutrophils # (Auto) 11.1 x10^3uL Lymphocytes # (Auto) 1.3 x10^3/uL Monocytes # (Auto) 1.2 x10^3/uL Eosinophils # (Auto) 0.2 x10^3/uL Basophils # (Auto) 0.0 x10^3/uL Sodium Level 136 mmol/L Potassium Level 3.9 mmol/L Chloride Level 101 mmol/L Carbon Dioxide Level 25 mmol/L Anion Gap 10 Blood Urea Nitrogen 32 mg/dL Creatinine 1.6 mg/dL Estimated GFR (Cockcroft-Gault) 41.5 BUN/Creatinine Ratio 20 Glucose Level 130 mg/dL Calcium Level 8.1 mg/dL Total Bilirubin 0.4 mg/dL Aspartate Amino Transf (AST/SGOT) 43 U/L Alanine Aminotransferase (ALT/SGPT) 39 U/L Alkaline Phosphatase 93 U/L Total Protein 5.6 g/dL Albumin 1.8 g/dL Albumin/Globulin Ratio 0.5 BLOOD CULTURE Final NO GROWTH AFTER 5 DAYS PE: GEN: NAD LUNGS: NC HEART: RRR ABD: c-tube bilious, abd soft, not particularly tender NEURO/PSYCH: A & O 3 A/P: Influenza A Acute cholecystitis s/p cholecystostomy tube H/o PUD - on PPI Leukocytosis, normocytic anemia, HERBER -- Continue same per GI. ÁNGEL-BRANINE,MARU PA Dec 31, 2018 13:55
[2018-12-31 14:21] VITALS: BP 112/47
[2018-12-31 19:42] VITALS: BP 140/61
[2018-12-31] MEDS: ATORVASTATIN CALCIUM 40 MG TABLET. PO SCH (20:45)
[2018-12-31 22:54] VITALS: BP 128/59
[2019-01-01 02:36] VITALS: BP 127/53
[2019-01-01 04:18] LABS: BASO % 0 % (0-3); EOS # 0.2 x10^3/uL (0.0-0.7); EOS % 2 % (0-3); HEMATOCRIT 33.7 % (39.0-53.0); HEMOGLOBIN 11.2 g/dL (13.0-17.5); LYMPH # 1.2 x10^3/uL (1.0-4.8); LYMPH % 11 % (24-48); MEAN CORPUSCULAR HEMOGLOBIN 31 pg (25-35); MEAN CORPUSCULAR HGB CONC 33 g/dL (31-37); MEAN CORPUSCULAR VOLUME 92 fL (79-100); MONO # 1.3 x10^3/uL (0.0-1.1); MONO % 12 % (0-9); NEUT # 8.1 x10^3uL (1.8-7.7); NEUT % 74 % (31-73); PLATELET COUNT 253 x10^3/uL (140-400); RED BLOOD COUNT 3.67 x10^6/uL (4.30-5.70); RED CELL DISTRIBUTION WIDTH 13.7 % (11.5-14.5)
[2019-01-01 04:45] LABS: ALBUMIN 1.7 g/dL (3.4-5.0); ALBUMIN/GLOBULIN RATIO 0.5 (1.0-1.7); CALCIUM 8.1 mg/dL (8.5-10.1); CREATININE 1.3 mg/dL (0.7-1.3); GFR 52.7; POTASSIUM 3.9 mmol/L (3.5-5.1); TOTAL BILIRUBIN 0.6 mg/dL (0.2-1.0); TOTAL PROTEIN 5.3 g/dL (6.4-8.2)
[2019-01-01] MEDS: PIPERACILLIN/TAZOBACTAM 2.25 GM in IV NORMAL SALINE 50ML 50 ML IV SCH ×2 (06:00→11:20)
[2019-01-01] MEDS: IV NORMAL SALINE 1000ML BAG 1,000 ML IV SCH (06:10)
[2019-01-01 07:00] VITALS: BP 99/53
[2019-01-01] MEDS: MULTIVITAMIN with MINERAL TABLET. PO SCH (08:24)
[2019-01-01] MEDS: CHOLECALCIFEROL (VITAMIN D3) 1,000 UNIT TABLET PO SCH (08:24)
[2019-01-01] MEDS: TAMSULOSIN 0.4 MG CAP.ER.24H. PO SCH (08:24)
[2019-01-01] MEDS: LACTOBACILLUS RHAMNOSUS GG 1 CAPSULE. PO SCH (08:25)
[2019-01-01] MEDS: ASPIRIN ENTERIC COATED 325 MG TABLET.DR. PO SCH (08:25)
[2019-01-01] MEDS: PANTOPRAZOLE 40 MG TABLET.DR. PO SCH (08:25)
[2019-01-01] MEDS: METOPROLOL SUCC 24HR ER 25 MG TAB.ER.24H. PO SCH (08:26)
--- NOTE | 2019-01-01 09:00 | PDOC ---
LACHO OCONNOR SHOE CUTTER 01/01/19 0900: SURGICAL PROGRESS NOTE Subjective Tolerating diet no pain Vital Signs Vital Signs Date Time Temp Pulse Resp B/P (MAP) Pulse Ox O2 Delivery O2 Flow Rate FiO2 01/01/19 08:28 Room Air 01/01/19 08:26 61 94/53 01/01/19 07:00 98.4 18 92 98.4 12/31/18 14:21 2.0 I&O Intake and Output 01/01/19 06:59 Intake Total 1660 ml Output Total 1015 ml Balance 645 ml Intake Oral 160 ml IV Total 1500 ml Output Urine Total 690 ml Drainage Total 325 ml # Voids 2 General: Alert, Oriented X3, Cooperative, No acute distress Abdomen: Soft, Other (drain bilious ) Labs Laboratory Tests Test 12/31/18 03:58 01/01/19 03:25 White Blood Count 13.9 x10^3/uL (4.0-11.0) 11.0 x10^3/uL (4.0-11.0) Red Blood Count 3.78 x10^6/uL (4.30-5.70) 3.67 x10^6/uL (4.30-5.70) Hemoglobin 11.3 g/dL (13.0-17.5) 11.2 g/dL (13.0-17.5) Hematocrit 34.7 % (39.0-53.0) 33.7 % (39.0-53.0) Mean Corpuscular Volume 92 fL (79-100) 92 fL (79-100) Mean Corpuscular Hemoglobin 30 pg (25-35) 31 pg (25-35) Mean Corpuscular Hemoglobin Concent 33 g/dL (31-37) 33 g/dL (31-37) Red Cell Distribution Width 13.7 % (11.5-14.5) 13.7 % (11.5-14.5) Platelet Count 198 x10^3/uL (140-400) 253 x10^3/uL (140-400) Neutrophils (%) (Auto) 80 % (31-73) 74 % (31-73) Lymphocytes (%) (Auto) 10 % (24-48) 11 % (24-48) Monocytes (%) (Auto) 9 % (0-9) 12 % (0-9) Eosinophils (%) (Auto) 1 % (0-3) 2 % (0-3) Basophils (%) (Auto) 0 % (0-3) 0 % (0-3) Neutrophils # (Auto) 11.1 x10^3uL (1.8-7.7) 8.1 x10^3uL (1.8-7.7) Lymphocytes # (Auto) 1.3 x10^3/uL (1.0-4.8) 1.2 x10^3/uL (1.0-4.8) Monocytes # (Auto) 1.2 x10^3/uL (0.0-1.1) 1.3 x10^3/uL (0.0-1.1) Eosinophils # (Auto) 0.2 x10^3/uL (0.0-0.7) 0.2 x10^3/uL (0.0-0.7) Basophils # (Auto) 0.0 x10^3/uL (0.0-0.2) 0.0 x10^3/uL (0.0-0.2) Sodium Level 136 mmol/L (136-145) 141 mmol/L (136-145) Potassium Level 3.9 mmol/L (3.5-5.1) 3.9 mmol/L (3.5-5.1) Chloride Level 101 mmol/L (98-107) 106 mmol/L (98-107) Carbon Dioxide Level 25 mmol/L (21-32) 25 mmol/L (21-32) Anion Gap 10 (6-14) 10 (6-14) Blood Urea Nitrogen 32 mg/dL (8-26) 20 mg/dL (8-26) Creatinine 1.6 mg/dL (0.7-1.3) 1.3 mg/dL (0.7-1.3) Estimated GFR (Cockcroft-Gault) 41.5 52.7 BUN/Creatinine Ratio 20 (6-20) 15 (6-20) Glucose Level 130 mg/dL (70-99) 106 mg/dL (70-99) Calcium Level 8.1 mg/dL (8.5-10.1) 8.1 mg/dL (8.5-10.1) Total Bilirubin 0.4 mg/dL (0.2-1.0) 0.6 mg/dL (0.2-1.0) Aspartate Amino Transf (AST/SGOT) 43 U/L (15-37) 32 U/L (15-37) Alanine Aminotransferase (ALT/SGPT) 39 U/L (16-63) 33 U/L (16-63) Alkaline Phosphatase 93 U/L (46-116) 95 U/L (46-116) Total Protein 5.6 g/dL (6.4-8.2) 5.3 g/dL (6.4-8.2) Albumin 1.8 g/dL (3.4-5.0) 1.7 g/dL (3.4-5.0) Albumin/Globulin Ratio 0.5 (1.0-1.7) 0.5 (1.0-1.7) Laboratory Tests Test 01/01/19 03:25 White Blood Count 11.0 x10^3/uL (4.0-11.0) Red Blood Count 3.67 x10^6/uL (4.30-5.70) Hemoglobin 11.2 g/dL (13.0-17.5) Hematocrit 33.7 % (39.0-53.0) Mean Corpuscular Volume 92 fL (79-100) Mean Corpuscular Hemoglobin 31 pg (25-35) Mean Corpuscular Hemoglobin Concent 33 g/dL (31-37) Red Cell Distribution Width 13.7 % (11.5-14.5) Platelet Count 253 x10^3/uL (140-400) Neutrophils (%) (Auto) 74 % (31-73) Lymphocytes (%) (Auto) 11 % (24-48) Monocytes (%) (Auto) 12 % (0-9) Eosinophils (%) (Auto) 2 % (0-3) Basophils (%) (Auto) 0 % (0-3) Neutrophils # (Auto) 8.1 x10^3uL (1.8-7.7) Lymphocytes # (Auto) 1.2 x10^3/uL (1.0-4.8) Monocytes # (Auto) 1.3 x10^3/uL (0.0-1.1) Eosinophils # (Auto) 0.2 x10^3/uL (0.0-0.7) Basophils # (Auto) 0.0 x10^3/uL (0.0-0.2) Sodium Level 141 mmol/L (136-145) Potassium Level 3.9 mmol/L (3.5-5.1) Chloride Level 106 mmol/L (98-107) Carbon Dioxide Level 25 mmol/L (21-32) Anion Gap 10 (6-14) Blood Urea Nitrogen 20 mg/dL (8-26) Creatinine 1.3 mg/dL (0.7-1.3) Estimated GFR (Cockcroft-Gault) 52.7 BUN/Creatinine Ratio 15 (6-20) Glucose Level 106 mg/dL (70-99) Calcium Level 8.1 mg/dL (8.5-10.1) Total Bilirubin 0.6 mg/dL (0.2-1.0) Aspartate Amino Transf (AST/SGOT) 32 U/L (15-37) Alanine Aminotransferase (ALT/SGPT) 33 U/L (16-63) Alkaline Phosphatase 95 U/L (46-116) Total Protein 5.3 g/dL (6.4-8.2) Albumin 1.7 g/dL (3.4-5.0) Albumin/Globulin Ratio 0.5 (1.0-1.7) Problem List Problems Medical Problems: (1) Elevated troponin Status: Acute (2) Influenza A Status: Acute Assessment/Plan c tube x 6 weeks can fu in clinic with Dr Pollack available as needed KEESHA POLLACK MD 01/01/19 1247: SURGICAL PROGRESS NOTE Assessment/Plan as above will follow as outpatient LAHCO OCONNOR APRN Jan 01, 2019 09:00 KEESHA POLLACK MD Jan 01, 2019 12:47
--- NOTE | 2019-01-01 09:23 | PDOC ---
Objective: Objective: Reviewed w/ RN - drain functioning, possible DC today. Vital Signs: Vital Signs Date Time Temp Pulse Resp B/P (MAP) Pulse Ox O2 Delivery O2 Flow Rate FiO2 01/01/19 08:28 Room Air 01/01/19 08:26 61 94/53 01/01/19 07:00 98.4 18 92 98.4 12/31/18 14:21 2.0 Labs: Laboratory Tests Test 01/01/19 03:25 White Blood Count 11.0 x10^3/uL Red Blood Count 3.67 x10^6/uL Hemoglobin 11.2 g/dL Hematocrit 33.7 % Mean Corpuscular Volume 92 fL Mean Corpuscular Hemoglobin 31 pg Mean Corpuscular Hemoglobin Concent 33 g/dL Red Cell Distribution Width 13.7 % Platelet Count 253 x10^3/uL Neutrophils (%) (Auto) 74 % Lymphocytes (%) (Auto) 11 % Monocytes (%) (Auto) 12 % Eosinophils (%) (Auto) 2 % Basophils (%) (Auto) 0 % Neutrophils # (Auto) 8.1 x10^3uL Lymphocytes # (Auto) 1.2 x10^3/uL Monocytes # (Auto) 1.3 x10^3/uL Eosinophils # (Auto) 0.2 x10^3/uL Basophils # (Auto) 0.0 x10^3/uL Sodium Level 141 mmol/L Potassium Level 3.9 mmol/L Chloride Level 106 mmol/L Carbon Dioxide Level 25 mmol/L Anion Gap 10 Blood Urea Nitrogen 20 mg/dL Creatinine 1.3 mg/dL Estimated GFR (Cockcroft-Gault) 52.7 BUN/Creatinine Ratio 15 Glucose Level 106 mg/dL Calcium Level 8.1 mg/dL Total Bilirubin 0.6 mg/dL Aspartate Amino Transf (AST/SGOT) 32 U/L Alanine Aminotransferase (ALT/SGPT) 33 U/L Alkaline Phosphatase 95 U/L Total Protein 5.3 g/dL Albumin 1.7 g/dL Albumin/Globulin Ratio 0.5 PE: GEN: NAD, up to chair LUNGS: room air NEURO/PSYCH: sleeping A/P: Acute cholecystitis s/p cholecystostomy tube H/o PUD - on PPI -- DC per primary, follow-up w/ surgery as planned. MARU HOLCOMB Jan 01, 2019 09:23
--- NOTE | 2019-01-01 09:50 | PDOC ---
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 to f/u with dr lozano in 2 weeks History of Present Illness History of Present Illness Mr Malik was seen and examined this morning. Patient has new complaints this am. of pain with cough near tube site Patient had cholesystostomy for acute cholecystitis. Started on Zosyn. Discussed case with RN Pt with mild/mod distress, resting in bed Pt white count still elevated at 13.9 Creatinine trending down, on NS. Nephrology, Urology, GI consulted. 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: Alert, oriented x 3, no focal neurologic deficit SKIN: No rash IV: ok General: Alert, Oriented X3, Cooperative, No acute distress Heart: Regular rate, Normal S1, Normal S2 Lungs: Clear Abdomen: Soft, Other (drain bilious less) Extremities: No clubbing, No cyanosis Skin: Other (warm) Labs LABS Laboratory Tests Test 01/01/19 03:25 White Blood Count 11.0 x10^3/uL (4.0-11.0) Red Blood Count 3.67 x10^6/uL (4.30-5.70) Hemoglobin 11.2 g/dL (13.0-17.5) Hematocrit 33.7 % (39.0-53.0) Mean Corpuscular Volume 92 fL (79-100) Mean Corpuscular Hemoglobin 31 pg (25-35) Mean Corpuscular Hemoglobin Concent 33 g/dL (31-37) Red Cell Distribution Width 13.7 % (11.5-14.5) Platelet Count 253 x10^3/uL (140-400) Neutrophils (%) (Auto) 74 % (31-73) Lymphocytes (%) (Auto) 11 % (24-48) Monocytes (%) (Auto) 12 % (0-9) Eosinophils (%) (Auto) 2 % (0-3) Basophils (%) (Auto) 0 % (0-3) Neutrophils # (Auto) 8.1 x10^3uL (1.8-7.7) Lymphocytes # (Auto) 1.2 x10^3/uL (1.0-4.8) Monocytes # (Auto) 1.3 x10^3/uL (0.0-1.1) Eosinophils # (Auto) 0.2 x10^3/uL (0.0-0.7) Basophils # (Auto) 0.0 x10^3/uL (0.0-0.2) Sodium Level 141 mmol/L (136-145) Potassium Level 3.9 mmol/L (3.5-5.1) Chloride Level 106 mmol/L (98-107) Carbon Dioxide Level 25 mmol/L (21-32) Anion Gap 10 (6-14) Blood Urea Nitrogen 20 mg/dL (8-26) Creatinine 1.3 mg/dL (0.7-1.3) Estimated GFR (Cockcroft-Gault) 52.7 BUN/Creatinine Ratio 15 (6-20) Glucose Level 106 mg/dL (70-99) Calcium Level 8.1 mg/dL (8.5-10.1) Total Bilirubin 0.6 mg/dL (0.2-1.0) Aspartate Amino Transf (AST/SGOT) 32 U/L (15-37) Alanine Aminotransferase (ALT/SGPT) 33 U/L (16-63) Alkaline Phosphatase 95 U/L (46-116) Total Protein 5.3 g/dL (6.4-8.2) Albumin 1.7 g/dL (3.4-5.0) Albumin/Globulin Ratio 0.5 (1.0-1.7) Assessment and Plan Assessmemt and Plan Problems Medical Problems: (1) Elevated troponin Status: Acute (2) Influenza A Status: Acute Comment Review of Relevant I have reviewed the following items timoteo (where applicable) has been applied. Labs Laboratory Tests Test 12/31/18 03:58 01/01/19 03:25 White Blood Count 13.9 x10^3/uL (4.0-11.0) 11.0 x10^3/uL (4.0-11.0) Red Blood Count 3.78 x10^6/uL (4.30-5.70) 3.67 x10^6/uL (4.30-5.70) Hemoglobin 11.3 g/dL (13.0-17.5) 11.2 g/dL (13.0-17.5) Hematocrit 34.7 % (39.0-53.0) 33.7 % (39.0-53.0) Mean Corpuscular Volume 92 fL (79-100) 92 fL (79-100) Mean Corpuscular Hemoglobin 30 pg (25-35) 31 pg (25-35) Mean Corpuscular Hemoglobin Concent 33 g/dL (31-37) 33 g/dL (31-37) Red Cell Distribution Width 13.7 % (11.5-14.5) 13.7 % (11.5-14.5) Platelet Count 198 x10^3/uL (140-400) 253 x10^3/uL (140-400) Neutrophils (%) (Auto) 80 % (31-73) 74 % (31-73) Lymphocytes (%) (Auto) 10 % (24-48) 11 % (24-48) Monocytes (%) (Auto) 9 % (0-9) 12 % (0-9) Eosinophils (%) (Auto) 1 % (0-3) 2 % (0-3) Basophils (%) (Auto) 0 % (0-3) 0 % (0-3) Neutrophils # (Auto) 11.1 x10^3uL (1.8-7.7) 8.1 x10^3uL (1.8-7.7) Lymphocytes # (Auto) 1.3 x10^3/uL (1.0-4.8) 1.2 x10^3/uL (1.0-4.8) Monocytes # (Auto) 1.2 x10^3/uL (0.0-1.1) 1.3 x10^3/uL (0.0-1.1) Eosinophils # (Auto) 0.2 x10^3/uL (0.0-0.7) 0.2 x10^3/uL (0.0-0.7) Basophils # (Auto) 0.0 x10^3/uL (0.0-0.2) 0.0 x10^3/uL (0.0-0.2) Sodium Level 136 mmol/L (136-145) 141 mmol/L (136-145) Potassium Level 3.9 mmol/L (3.5-5.1) 3.9 mmol/L (3.5-5.1) Chloride Level 101 mmol/L (98-107) 106 mmol/L (98-107) Carbon Dioxide Level 25 mmol/L (21-32) 25 mmol/L (21-32) Anion Gap 10 (6-14) 10 (6-14) Blood Urea Nitrogen 32 mg/dL (8-26) 20 mg/dL (8-26) Creatinine 1.6 mg/dL (0.7-1.3) 1.3 mg/dL (0.7-1.3) Estimated GFR (Cockcroft-Gault) 41.5 52.7 BUN/Creatinine Ratio 20 (6-20) 15 (6-20) Glucose Level 130 mg/dL (70-99) 106 mg/dL (70-99) Calcium Level 8.1 mg/dL (8.5-10.1) 8.1 mg/dL (8.5-10.1) Total Bilirubin 0.4 mg/dL (0.2-1.0) 0.6 mg/dL (0.2-1.0) Aspartate Amino Transf (AST/SGOT) 43 U/L (15-37) 32 U/L (15-37) Alanine Aminotransferase (ALT/SGPT) 39 U/L (16-63) 33 U/L (16-63) Alkaline Phosphatase 93 U/L (46-116) 95 U/L (46-116) Total Protein 5.6 g/dL (6.4-8.2) 5.3 g/dL (6.4-8.2) Albumin 1.8 g/dL (3.4-5.0) 1.7 g/dL (3.4-5.0) Albumin/Globulin Ratio 0.5 (1.0-1.7) 0.5 (1.0-1.7) Laboratory Tests Test 01/01/19 03:25 White Blood Count 11.0 x10^3/uL (4.0-11.0) Red Blood Count 3.67 x10^6/uL (4.30-5.70) Hemoglobin 11.2 g/dL (13.0-17.5) Hematocrit 33.7 % (39.0-53.0) Mean Corpuscular Volume 92 fL (79-100) Mean Corpuscular Hemoglobin 31 pg (25-35) Mean Corpuscular Hemoglobin Concent 33 g/dL (31-37) Red Cell Distribution Width 13.7 % (11.5-14.5) Platelet Count 253 x10^3/uL (140-400) Neutrophils (%) (Auto) 74 % (31-73) Lymphocytes (%) (Auto) 11 % (24-48) Monocytes (%) (Auto) 12 % (0-9) Eosinophils (%) (Auto) 2 % (0-3) Basophils (%) (Auto) 0 % (0-3) Neutrophils # (Auto) 8.1 x10^3uL (1.8-7.7) Lymphocytes # (Auto) 1.2 x10^3/uL (1.0-4.8) Monocytes # (Auto) 1.3 x10^3/uL (0.0-1.1) Eosinophils # (Auto) 0.2 x10^3/uL (0.0-0.7) Basophils # (Auto) 0.0 x10^3/uL (0.0-0.2) Sodium Level 141 mmol/L (136-145) Potassium Level 3.9 mmol/L (3.5-5.1) Chloride Level 106 mmol/L (98-107) Carbon Dioxide Level 25 mmol/L (21-32) Anion Gap 10 (6-14) Blood Urea Nitrogen 20 mg/dL (8-26) Creatinine 1.3 mg/dL (0.7-1.3) Estimated GFR (Cockcroft-Gault) 52.7 BUN/Creatinine Ratio 15 (6-20) Glucose Level 106 mg/dL (70-99) Calcium Level 8.1 mg/dL (8.5-10.1) Total Bilirubin 0.6 mg/dL (0.2-1.0) Aspartate Amino Transf (AST/SGOT) 32 U/L (15-37) Alanine Aminotransferase (ALT/SGPT) 33 U/L (16-63) Alkaline Phosphatase 95 U/L (46-116) Total Protein 5.3 g/dL (6.4-8.2) Albumin 1.7 g/dL (3.4-5.0) Albumin/Globulin Ratio 0.5 (1.0-1.7) Microbiology 12/25/18 Blood Culture - Final, Complete NO GROWTH AFTER 5 DAYS 12/29/18 Urine Culture - Final, Complete 12/29/18 Urine Culture Result 1 (PETERSON) - Final, Complete Medications Current Medications Acetaminophen (Tylenol) 1,000 mg 1X ONCE PO Last administered on 12/24/18 19: 30; Start 12/24/18 at 19:30; Stop 12/24/18 at 19:33; Status DC Sodium Chloride 1,000 ml @ 125 mls/hr 1X ONCE IV Last administered on 19:30; Start 12/24/18 at 19:30; Stop 12/25/18 at 03:29; Status DC Oseltamivir Phosphate (Tamiflu) 75 mg 1X ONCE PO Last administered on 20:00; Start 12/24/18 at 20:00; Stop 12/24/18 at 20:01; Status DC Aspirin (Leier Aspirin) 325 mg 1X ONCE PO Last administered on 12/24/18 21:58 ; Start 12/24/18 at 22:00; Stop 12/24/18 at 22:01; Status DC Oseltamivir Phosphate (Tamiflu) 30 mg BID PO Last administered on 12/29/18 11: 00; Start 12/25/18 at 09:00; Stop 12/29/18 at 09:01; Status DC Aspirin (Ecotrin) 325 mg DAILYWBKFT PO Last administered on 01/01/19at 08:25; Start 12/25/18 at 12:00 Atorvastatin Calcium (Lipitor) 40 mg QHS PO Last administered on 12/31/18 20: 45; Start 12/25/18 at 21:00 Metoprolol Succinate (Toprol Xl) 25 mg DAILY PO Last administered on 12/31/18 09:43; Start 12/25/18 at 12:00 Vitamin D (Vitamin D3) 2,000 unit DAILY PO Last administered on 01/01/19 08:24 ; Start 12/25/18 at 12:00 Losartan Potassium (Cozaar) 100 mg DAILY PO Last administered on 12/28/18 09:18 ; Start 12/25/18 at 12:00; Stop 12/28/18 at 13:46; Status DC Multivitamins (Thera M Plus) 1 tab DAILY PO Last administered on 01/01/19 08: 24; Start 12/25/18 at 12:00 Pantoprazole Sodium (Protonix) 40 mg DAILYAC PO Last administered on 01/01/19 08:25; Start 12/25/18 at 12:00 Calcium Carbonate/ Glycine (Tums) 500 mg PRN AFTMEALHC PRN PO INDIGESTION Last administered on 12/26/18 08:34; Start 12/25/18 at 22:15 Trazodone HCl (Desyrel) 50 mg PRN QHS PRN PO INSOMNIA Last administered on 20:16; Start 12/26/18 at 21:00 Amoxicillin/ Clavulanate Potassium (Augmentin 875/ 125mg) 1 tab BID PO Last administered on 12/29/18 11:01; Start 12/28/18 at 12:00; Stop 12/29/18 at 16:00; Status DC Sodium Chloride 1,000 ml @ 75 mls/hr [id number] IV ; Start 12/28/18 at 12:00; Stop 12/29/18 at 13:13; Status DC Lactobacillus Rhamnosus (Culturelle) 1 cap BID PO Last administered on 08:25; Start 12/28/18 at 14:00 Acetaminophen (Tylenol) 500 mg PRN Q6HRS PRN PO MILD PAIN / TEMP Last administered on 12/29/18 16:10; Start 12/28/18 at 20:15 Sodium Chloride 1,000 ml @ 75 mls/hr [id number] IV Last administered on at 06:10; Start 12/29/18 at 11:30 Tamsulosin HCl (Flomax) 0.4 mg DAILY PO Last administered on 01/01/19at 08:24; Start 12/29/18 at 13:00 Piperacillin Sod/ Tazobactam Sod (Zosyn Per Pharmacy) 1 each PRN DAILY PRN MC SEE COMMENTS; Start 12/29/18 at 16:00 Piperacillin Sod/ Tazobactam Sod 2.25 gm/Sodium Chloride 50 ml @ 100 mls/hr Q6HRS IV Last administered on 01/01/19at 06:00; Start 12/29/18 at 17:00 Lidocaine/Sodium Bicarbonate (Buffered Lidocaine 1%) 3 ml STK-MED ONCE .ROUTE ; Start 12/29/18 at 18:42; Stop 12/29/18 at 18:43; Status DC Iohexol (Omnipaque 300 Mg/ml) 100 ml STK-MED ONCE .ROUTE ; Start 12/29/18 at 18: 43; Stop 12/29/18 at 18:44; Status DC Hydrocortisone Sodium Succinate (Solu-CORTEF) 250 mg STK-MED ONCE .ROUTE ; Start 12/29/18 at 18:48; Stop 12/29/18 at 18:49; Status DC Midazolam HCl (Versed) 2 mg STK-MED ONCE .ROUTE ; Start 12/29/18 at 18:49; Stop 12/29/18 at 18:50; Status DC Fentanyl Citrate (Fentanyl 2ml Vial) 100 mcg STK-MED ONCE .ROUTE ; Start at 18:49; Stop 12/29/18 at 18:50; Status DC Diphenhydramine HCl (Benadryl) 50 mg STK-MED ONCE .ROUTE ; Start 12/29/18 at 18: 49; Stop 12/29/18 at 18:50; Status DC Iodixanol (Visipaque 320) 100 ml STK-MED ONCE .ROUTE ; Start 12/29/18 at 18:51; Stop 12/29/18 at 18:52; Status DC Acetaminophen/ Hydrocodone Bitart (Lortab 5/325) 1 tab PRN Q4HRS PRN PO MODERATE PAIN Last administered on 12/30/18at 22:49; Start 12/29/18 at 19:15 Acetaminophen/ Hydrocodone Bitart (Lortab 5/325) 2 tab PRN Q4HRS PRN PO SEVERE PAIN; Start 12/29/18 at 19:15 Cefazolin Sodium 50 ml @ As Directed STK-MED ONCE IV ; Start 12/29/18 at 19:25; Stop 12/29/18 at 19:26; Status DC Lidocaine/Sodium Bicarbonate (Buffered Lidocaine 1%) 6 ml 1X ONCE IJ Last administered on 12/29/18 19:55; Start 12/29/18 at 19:45; Stop 12/29/18 at 19:48; Status DC Midazolam HCl (Versed) 1.5 mg 1X ONCE IV Last administered on 12/29/18 19:56; Start 12/29/18 at 19:45; Stop 12/29/18 at 19:48; Status DC Fentanyl Citrate (Fentanyl 2ml Vial) 100 mcg 1X ONCE IV Last administered on 19:56; Start 12/29/18 at 20:00; Stop 12/29/18 at 20:01; Status DC Iodixanol (Visipaque 320) 16 ml 1X ONCE IART Last administered on 12/29/18 19: 55; Start 12/29/18 at 19:45; Stop 12/29/18 at 19:48; Status DC Cefazolin Sodium 50 ml @ 100 mls/hr 1X ONCE IV Last administered on 12/29/18 19:55; Start 12/29/18 at 19:45; Stop 12/29/18 at 20:14; Status DC Hydrocortisone Sodium Succinate (Solu-CORTEF) 100 mg 1X ONCE IV Last administered on 12/29/18 19:55; Start 12/29/18 at 19:45; Stop 12/29/18 at 19:48; Status DC Diphenhydramine HCl (Benadryl) 50 mg 1X ONCE IVP Last administered on 19:56; Start 12/29/18 at 19:45; Stop 12/29/18 at 19:48; Status DC Throat Lozenges (Cepacol Sore Throat Lozenge) 1 wilner PRN Q2HRS PRN PO SORE THROAT Last administered on 12/30/18at 22:50; Start 12/30/18 at 09:45 Fentanyl Citrate (Fentanyl 2ml Vial) 50 mcg PRN Q2HR PRN IV SEVERE PAIN Last administered on 12/30/18at 14:43; Start 12/30/18 at 14:30 Active Scripts Active Atorvastatin Calcium 40 Mg Tablet 40 Mg PO QHS 30 Days Aspirin Ec (Aspirin) 325 Mg Tablet. 325 Mg PO DAILYWBKFT 30 Days Reported Tamiflu (Oseltamivir Phosphate) 30 Mg Capsule 1 Cap PO BID Vitamin B-12 (Cyanocobalamin (Vitamin B-12)) 1,000 Mcg Tablet 1 Tab PO DAILY Metoprolol Succinate ( Xl ) (Metoprolol Succinate) 25 Mg Tab.er.24h 1 Tab PO DAILY Losartan Potassium 100 Mg Tablet 100 Mg PO DAILY Multivitamins (Multivitamin) 1 Each Tablet 1 Tab PO DAILY Vitamin D (Cholecalciferol (Vitamin D3)) 2,000 Unit Capsule 1 Cap PO DAILY Vitals/I & O Vital Sign - Last 24 Hours 12/31/18 12/31/18 12/31/18 12/31/18 11:11 14:21 19:42 20:00 Temp 97.4 99.4 98.5 97.4 99.4 98.5 Pulse 71 74 77 Resp 18 18 18 B/P (MAP) 122/61 (81) 112/47 (68) 140/61 (87) Pulse Ox 92 90 92 O2 Delivery Nasal Cannula Nasal Cannula Room Air Room Air O2 Flow Rate 2.0 2.0 12/31/18 01/01/19 01/01/19 01/01/19 22:54 02:36 07:00 08:26 Temp 98.9 98.9 98.4 98.9 98.9 98.4 Pulse 75 71 85 61 Resp 16 16 18 B/P (MAP) 128/59 (82) 127/53 (77) 99/53 (68) 94/53 Pulse Ox 92 91 92 O2 Delivery Room Air Room Air Room Air 01/01/19 08:28 O2 Delivery Room Air Intake and Output 12/31/18 12/31/18 01/01/19 15:00 23:00 07:00 Intake Total 60 ml 100 ml 1500 ml Output Total 355 ml 520 ml 140 ml Balance -295 ml -420 ml 1360 ml MERCY LARSON MD Jan 01, 2019 09:50
--- NOTE | 2019-01-01 10:01 | PDOC3 ---
Discharge Summary Date of Admission: Dec 24, 2018 Date of Discharge: Jan 01, 2019 Follow-Up: 1-2 days Admitting Diagnosis comment: DISCHARGE DX Chief Complaint ACUTE CHOLECYSTITIS Weakness Leukocytosis likely 2/2 cholecystis vs infection Cough SEPSIS Influenza + Elevated Troponin H/o CVA HTN HLD GERD Left hydronephrosis which appears represent ureteropelvic junction obstruction is present. 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 to f/u with dr lozano in 2 weeks History of Present Illness History of Present Illness Mr Malik was seen and examined this morning. Patient has new complaints poor appetite Patient had cholesystostomy for acute cholecystitis. Started on Zosyn. Discussed case with RN Pt NAD resting in CHAIR Pt white count still elevated at 13.9 Creatinine trending down, on NS. Nephrology, Urology, GI consulted. Patient has completed tamiflu to have c-tube drain x 6 weeks to PP TODAY IF STABLE VISIT TIME AND CHART REVIEW D/C PLANNING 36 MIN 01/01 Vitals Vitals Vital Signs Date Time Temp Pulse Resp B/P (MAP) Pulse Ox O2 Delivery O2 Flow Rate FiO2 01/01/19 08:28 Room Air 01/01/19 08:26 61 94/53 01/01/19 07:00 98.4 18 92 98.4 12/31/18 14:21 2.0 Physical Exam Physical Exam GENERAL: NAD, Alert HEENT: PERRL, OC/OP NECK: Supple, no JVD, no LN LUNGS: Clear HEART: S1S2, no gallop, no murmur ABD: Soft, NT, no organomegaly, no rebound EXT: No edema, no cyanosis ROLLING ATTENDANT: Alert, oriented x 3, no focal neurologic deficit SKIN: No rash IV: ok General: Alert, Oriented X3, Cooperative, No acute distress Heart: Regular rate, Normal S1, Normal S2 Lungs: Clear Abdomen: Soft, Other (drain bilious less) Extremities: No clubbing, No cyanosis Skin: Other (warm) FINAL DIAGNOSIS Problems Medical Problems: (1) Elevated troponin Status: Acute (2) Influenza A Status: Acute Brief Hospital Course Mr. Malik is a 83 old [sex] who presented with [ACUTE CHOLECYSTITIS ] CONDITION AT DISCHARGE: Improved Discharge Medications Current Medications Acetaminophen (Tylenol) 1,000 mg 1X ONCE PO Last administered on 12/24/18 19: 30; Start 12/24/18 at 19:30; Stop 12/24/18 at 19:33; Status DC Sodium Chloride 1,000 ml @ 125 mls/hr 1X ONCE IV Last administered on 19:30; Start 12/24/18 at 19:30; Stop 12/25/18 at 03:29; Status DC Oseltamivir Phosphate (Tamiflu) 75 mg 1X ONCE PO Last administered on 20:00; Start 12/24/18 at 20:00; Stop 12/24/18 at 20:01; Status DC Aspirin (Elier Aspirin) 325 mg 1X ONCE PO Last administered on 12/24/18 21:58 ; Start 12/24/18 at 22:00; Stop 12/24/18 at 22:01; Status DC Oseltamivir Phosphate (Tamiflu) 30 mg BID PO Last administered on 12/29/18 11: 00; Start 12/25/18 at 09:00; Stop 12/29/18 at 09:01; Status DC Aspirin (Ecotrin) 325 mg DAILYWBKFT PO Last administered on 01/01/19 08:25; Start 12/25/18 at 12:00 Atorvastatin Calcium (Lipitor) 40 mg QHS PO Last administered on 12/31/18 20: 45; Start 12/25/18 at 21:00 Metoprolol Succinate (Toprol Xl) 25 mg DAILY PO Last administered on 12/31/18 09:43; Start 12/25/18 at 12:00 Vitamin D (Vitamin D3) 2,000 unit DAILY PO Last administered on 01/01/19 08:24 ; Start 12/25/18 at 12:00 Losartan Potassium (Cozaar) 100 mg DAILY PO Last administered on 12/28/18 09:18 ; Start 12/25/18 at 12:00; Stop 12/28/18 at 13:46; Status DC Multivitamins (Thera M Plus) 1 tab DAILY PO Last administered on 01/01/19 08: 24; Start 12/25/18 at 12:00 Pantoprazole Sodium (Protonix) 40 mg DAILYAC PO Last administered on 01/01/19 08:25; Start 12/25/18 at 12:00 Calcium Carbonate/ Glycine (Tums) 500 mg PRN AFTMEALHC PRN PO INDIGESTION Last administered on 12/26/18 08:34; Start 12/25/18 at 22:15 Trazodone HCl (Desyrel) 50 mg PRN QHS PRN PO INSOMNIA Last administered on 20:16; Start 12/26/18 at 21:00 Amoxicillin/ Clavulanate Potassium (Augmentin 875/ 125mg) 1 tab BID PO Last administered on 12/29/18at 11:01; Start 12/28/18 at 12:00; Stop 12/29/18 at 16:00; Status DC Sodium Chloride 1,000 ml @ 75 mls/hr [id number] IV ; Start 12/28/18 at 12:00; Stop 12/29/18 at 13:13; Status DC Lactobacillus Rhamnosus (Culturelle) 1 cap BID PO Last administered on at 08:25; Start 12/28/18 at 14:00 Acetaminophen (Tylenol) 500 mg PRN Q6HRS PRN PO MILD PAIN / TEMP Last administered on 12/29/18 16:10; Start 12/28/18 at 20:15 Sodium Chloride 1,000 ml @ 75 mls/hr [id number] IV Last administered on 06:10; Start 12/29/18 at 11:30 Tamsulosin HCl (Flomax) 0.4 mg DAILY PO Last administered on 01/01/19at 08:24; Start 12/29/18 at 13:00 Piperacillin Sod/ Tazobactam Sod (Zosyn Per Pharmacy) 1 each PRN DAILY PRN MC SEE COMMENTS; Start 12/29/18 at 16:00 Piperacillin Sod/ Tazobactam Sod 2.25 gm/Sodium Chloride 50 ml @ 100 mls/hr Q6HRS IV Last administered on 01/01/19at 06:00; Start 12/29/18 at 17:00 Lidocaine/Sodium Bicarbonate (Buffered Lidocaine 1%) 3 ml STK-MED ONCE .ROUTE ; Start 12/29/18 at 18:42; Stop 12/29/18 at 18:43; Status DC Iohexol (Omnipaque 300 Mg/ml) 100 ml STK-MED ONCE .ROUTE ; Start 12/29/18 at 18: 43; Stop 12/29/18 at 18:44; Status DC Hydrocortisone Sodium Succinate (Solu-CORTEF) 250 mg STK-MED ONCE .ROUTE ; Start 12/29/18 at 18:48; Stop 12/29/18 at 18:49; Status DC Midazolam HCl (Versed) 2 mg STK-MED ONCE .ROUTE ; Start 12/29/18 at 18:49; Stop 12/29/18 at 18:50; Status DC Fentanyl Citrate (Fentanyl 2ml Vial) 100 mcg STK-MED ONCE .ROUTE ; Start at 18:49; Stop 12/29/18 at 18:50; Status DC Diphenhydramine HCl (Benadryl) 50 mg STK-MED ONCE .ROUTE ; Start 12/29/18 at 18: 49; Stop 12/29/18 at 18:50; Status DC Iodixanol (Visipaque 320) 100 ml STK-MED ONCE .ROUTE ; Start 12/29/18 at 18:51; Stop 12/29/18 at 18:52; Status DC Acetaminophen/ Hydrocodone Bitart (Lortab 5/325) 1 tab PRN Q4HRS PRN PO MODERATE PAIN Last administered on 12/30/18at 22:49; Start 12/29/18 at 19:15 Acetaminophen/ Hydrocodone Bitart (Lortab 5/325) 2 tab PRN Q4HRS PRN PO SEVERE PAIN; Start 12/29/18 at 19:15 Cefazolin Sodium 50 ml @ As Directed STK-MED ONCE IV ; Start 12/29/18 at 19:25; Stop 12/29/18 at 19:26; Status DC Lidocaine/Sodium Bicarbonate (Buffered Lidocaine 1%) 6 ml 1X ONCE IJ Last administered on 12/29/18at 19:55; Start 12/29/18 at 19:45; Stop 12/29/18 at 19:48; Status DC Midazolam HCl (Versed) 1.5 mg 1X ONCE IV Last administered on 12/29/18at 19:56; Start 12/29/18 at 19:45; Stop 12/29/18 at 19:48; Status DC Fentanyl Citrate (Fentanyl 2ml Vial) 100 mcg 1X ONCE IV Last administered on at 19:56; Start 12/29/18 at 20:00; Stop 12/29/18 at 20:01; Status DC Iodixanol (Visipaque 320) 16 ml 1X ONCE IART Last administered on 12/29/18at 19: 55; Start 12/29/18 at 19:45; Stop 12/29/18 at 19:48; Status DC Cefazolin Sodium 50 ml @ 100 mls/hr 1X ONCE IV Last administered on 12/29/18at 19:55; Start 12/29/18 at 19:45; Stop 12/29/18 at 20:14; Status DC Hydrocortisone Sodium Succinate (Solu-CORTEF) 100 mg 1X ONCE IV Last administered on 12/29/18at 19:55; Start 12/29/18 at 19:45; Stop 12/29/18 at 19:48; Status DC Diphenhydramine HCl (Benadryl) 50 mg 1X ONCE IVP Last administered on at 19:56; Start 12/29/18 at 19:45; Stop 12/29/18 at 19:48; Status DC Throat Lozenges (Cepacol Sore Throat Lozenge) 1 wilner PRN Q2HRS PRN PO SORE THROAT Last administered on 12/30/18at 22:50; Start 12/30/18 at 09:45 Fentanyl Citrate (Fentanyl 2ml Vial) 50 mcg PRN Q2HR PRN IV SEVERE PAIN Last administered on 12/30/18at 14:43; Start 12/30/18 at 14:30 Active Scripts Active Atorvastatin Calcium 40 Mg Tablet 40 Mg PO QHS 30 Days Aspirin Ec (Aspirin) 325 Mg Tablet.dr 325 Mg PO DAILYWBKFT 30 Days Reported Tamiflu (Oseltamivir Phosphate) 30 Mg Capsule 1 Cap PO BID Vitamin B-12 (Cyanocobalamin (Vitamin B-12)) 1,000 Mcg Tablet 1 Tab PO DAILY Metoprolol Succinate ( Xl ) (Metoprolol Succinate) 25 Mg Tab.er.24h 1 Tab PO DAILY Losartan Potassium 100 Mg Tablet 100 Mg PO DAILY Multivitamins (Multivitamin) 1 Each Tablet 1 Tab PO DAILY Vitamin D (Cholecalciferol (Vitamin D3)) 2,000 Unit Capsule 1 Cap PO DAILY Vital Signs Vital Signs Date Time Temp Pulse Resp B/P (MAP) Pulse Ox O2 Delivery O2 Flow Rate FiO2 3/12/19 08:28 Room Air 01/01/19 08:26 61 94/53 01/01/19 07:00 98.4 18 92 98.4 12/31/18 14:21 2.0 Labs Laboratory Tests Test 12/31/18 03:58 01/01/19 03:25 White Blood Count 13.9 x10^3/uL (4.0-11.0) 11.0 x10^3/uL (4.0-11.0) Red Blood Count 3.78 x10^6/uL (4.30-5.70) 3.67 x10^6/uL (4.30-5.70) Hemoglobin 11.3 g/dL (13.0-17.5) 11.2 g/dL (13.0-17.5) Hematocrit 34.7 % (39.0-53.0) 33.7 % (39.0-53.0) Mean Corpuscular Volume 92 fL (79-100) 92 fL (79-100) Mean Corpuscular Hemoglobin 30 pg (25-35) 31 pg (25-35) Mean Corpuscular Hemoglobin Concent 33 g/dL (31-37) 33 g/dL (31-37) Red Cell Distribution Width 13.7 % (11.5-14.5) 13.7 % (11.5-14.5) Platelet Count 198 x10^3/uL (140-400) 253 x10^3/uL (140-400) Neutrophils (%) (Auto) 80 % (31-73) 74 % (31-73) Lymphocytes (%) (Auto) 10 % (24-48) 11 % (24-48) Monocytes (%) (Auto) 9 % (0-9) 12 % (0-9) Eosinophils (%) (Auto) 1 % (0-3) 2 % (0-3) Basophils (%) (Auto) 0 % (0-3) 0 % (0-3) Neutrophils # (Auto) 11.1 x10^3uL (1.8-7.7) 8.1 x10^3uL (1.8-7.7) Lymphocytes # (Auto) 1.3 x10^3/uL (1.0-4.8) 1.2 x10^3/uL (1.0-4.8) Monocytes # (Auto) 1.2 x10^3/uL (0.0-1.1) 1.3 x10^3/uL (0.0-1.1) Eosinophils # (Auto) 0.2 x10^3/uL (0.0-0.7) 0.2 x10^3/uL (0.0-0.7) Basophils # (Auto) 0.0 x10^3/uL (0.0-0.2) 0.0 x10^3/uL (0.0-0.2) Sodium Level 136 mmol/L (136-145) 141 mmol/L (136-145) Potassium Level 3.9 mmol/L (3.5-5.1) 3.9 mmol/L (3.5-5.1) Chloride Level 101 mmol/L (98-107) 106 mmol/L (98-107) Carbon Dioxide Level 25 mmol/L (21-32) 25 mmol/L (21-32) Anion Gap 10 (6-14) 10 (6-14) Blood Urea Nitrogen 32 mg/dL (8-26) 20 mg/dL (8-26) Creatinine 1.6 mg/dL (0.7-1.3) 1.3 mg/dL (0.7-1.3) Estimated GFR (Cockcroft-Gault) 41.5 52.7 BUN/Creatinine Ratio 20 (6-20) 15 (6-20) Glucose Level 130 mg/dL (70-99) 106 mg/dL (70-99) Calcium Level 8.1 mg/dL (8.5-10.1) 8.1 mg/dL (8.5-10.1) Total Bilirubin 0.4 mg/dL (0.2-1.0) 0.6 mg/dL (0.2-1.0) Aspartate Amino Transf (AST/SGOT) 43 U/L (15-37) 32 U/L (15-37) Alanine Aminotransferase (ALT/SGPT) 39 U/L (16-63) 33 U/L (16-63) Alkaline Phosphatase 93 U/L (46-116) 95 U/L (46-116) Total Protein 5.6 g/dL (6.4-8.2) 5.3 g/dL (6.4-8.2) Albumin 1.8 g/dL (3.4-5.0) 1.7 g/dL (3.4-5.0) Albumin/Globulin Ratio 0.5 (1.0-1.7) 0.5 (1.0-1.7) Laboratory Tests Test 01/01/19 03:25 White Blood Count 11.0 x10^3/uL (4.0-11.0) Red Blood Count 3.67 x10^6/uL (4.30-5.70) Hemoglobin 11.2 g/dL (13.0-17.5) Hematocrit 33.7 % (39.0-53.0) Mean Corpuscular Volume 92 fL (79-100) Mean Corpuscular Hemoglobin 31 pg (25-35) Mean Corpuscular Hemoglobin Concent 33 g/dL (31-37) Red Cell Distribution Width 13.7 % (11.5-14.5) Platelet Count 253 x10^3/uL (140-400) Neutrophils (%) (Auto) 74 % (31-73) Lymphocytes (%) (Auto) 11 % (24-48) Monocytes (%) (Auto) 12 % (0-9) Eosinophils (%) (Auto) 2 % (0-3) Basophils (%) (Auto) 0 % (0-3) Neutrophils # (Auto) 8.1 x10^3uL (1.8-7.7) Lymphocytes # (Auto) 1.2 x10^3/uL (1.0-4.8) Monocytes # (Auto) 1.3 x10^3/uL (0.0-1.1) Eosinophils # (Auto) 0.2 x10^3/uL (0.0-0.7) Basophils # (Auto) 0.0 x10^3/uL (0.0-0.2) Sodium Level 141 mmol/L (136-145) Potassium Level 3.9 mmol/L (3.5-5.1) Chloride Level 106 mmol/L (98-107) Carbon Dioxide Level 25 mmol/L (21-32) Anion Gap 10 (6-14) Blood Urea Nitrogen 20 mg/dL (8-26) Creatinine 1.3 mg/dL (0.7-1.3) Estimated GFR (Cockcroft-Gault) 52.7 BUN/Creatinine Ratio 15 (6-20) Glucose Level 106 mg/dL (70-99) Calcium Level 8.1 mg/dL (8.5-10.1) Total Bilirubin 0.6 mg/dL (0.2-1.0) Aspartate Amino Transf (AST/SGOT) 32 U/L (15-37) Alanine Aminotransferase (ALT/SGPT) 33 U/L (16-63) Alkaline Phosphatase 95 U/L (46-116) Total Protein 5.3 g/dL (6.4-8.2) Albumin 1.7 g/dL (3.4-5.0) Albumin/Globulin Ratio 0.5 (1.0-1.7) Allergies Allergies Coded Allergies Type Severity Reaction Last Updated Verified iodine Allergy Intermediate Rash 08/12/15 Yes iron Allergy Intermediate Rash 09/05/15 Yes iron dextran complex Allergy Intermediate Rash 09/05/15 Yes Disposition/Orders: Other (SNF BED) Patient Instructions D/C PLANNING 36 MIN MERCY LARSON MD Jan 01, 2019 10:01
[2019-01-01] MEDS ORDERED: AMOX1TAB58 PO (10:02)
--- NOTE | 2019-01-01 10:03 | SNU/HH DC ---
DISCHARGE ORDERS DISCHARGE INFORMATION: FINAL DIAGNOSIS Problems Medical Problems: (1) Elevated troponin Status: Acute (2) Influenza A Status: Acute CONDITION ON DISCHARGE: Stable CODE STATUS: Code Status: Full ALF: SNF STAY <30 DAYS: Yes HOSPICE: HOSPICE: No HOSPICE EVAL & TREAT: No POST DISCHARGE ORDERS: ACTIVITY ORDERS: Activity as tolerated WEIGHT BEARING STATUS: As tolerated DIET AFTER DISCHARGE: Cardiac WOUND/INCISION CARE: No wound care needed CHECKS AFTER DISCHARGE: CHECKS AFTER DISCHARGE: Check blood press - daily, Check your Temp as needed FOLLOW-UP: PHYSICIAN FOLLOW-UP: Cardiology 01/31/19 at 0930 ADDITIONAL FOLLOW-UP: Your PCP in 1-2 weeks TREATMENT/EQUIPMENT ORDERS: ADAPTIVE EQUIPMENT NEEDED: None Physical Therapy For: Evalulation/Treatment Occupational Therapy For: Evaluation/Treatment DISCHARGE MEDICATIONS: Home Meds Active Scripts Amoxicillin/Potassium Clav (AUGMENTIN 500-125 TABLET) 1 Each Tablet, 1 TAB PO BID for INFECTION for 7 Days, #14 TAB Prov:MERCY LARSON MD 01/01/19 Atorvastatin Calcium (ATORVASTATIN CALCIUM) 40 Mg Tablet, 40 MG PO QHS for 30 Days, #30 TAB Prov:RICHARD JUÁREZ MD 06/27/17 Aspirin (ASPIRIN EC) 325 Mg Tablet.dr, 325 MG PO DAILYWBKFT for 30 Days, #30 TAB.SR Prov:RICHARD JUÁREZ MD 06/27/17 Reported Medications Oseltamivir Phosphate (TAMIFLU) 30 Mg Capsule, 1 CAP PO BID for FLU, #2 CAP 12/27/18 Cyanocobalamin (Vitamin B-12) (VITAMIN B-12) 1,000 Mcg Tablet, 1 TAB PO DAILY for Anemia, #30 TAB 2 Refills 12/25/18 Metoprolol Succinate (METOPROLOL SUCCINATE ( XL )) 25 Mg Tab.er.24h, 1 TAB PO DAILY for HTN, #30 TAB 5 Refills 12/25/18 Losartan Potassium (LOSARTAN POTASSIUM) 100 Mg Tablet, 100 MG PO DAILY for HYPERTENSION, TAB 12/25/18 Multivitamin (MULTIVITAMINS) 1 Each Tablet, 1 TAB PO DAILY, #90 TAB 3 Refills 08/12/15 Cholecalciferol (Vitamin D3) (VITAMIN D) 2,000 Unit Capsule, 1 CAP PO DAILY, # 30 CAP 3 Refills 08/12/15 MERCY LARSON MD Jan 01, 2019 10:03
--- NOTE | 2019-01-01 10:51 | PDOC ---
Renal-Progress Notes Subjective Notes Notes NOTHING NEW History of Present Illness Hx of present illness STABLE Vitals Vitals Vital Signs Date Time Temp Pulse Resp B/P (MAP) Pulse Ox O2 Delivery O2 Flow Rate FiO2 01/01/19 08:28 Room Air 01/01/19 08:26 61 94/53 01/01/19 07:00 98.4 18 92 98.4 12/31/18 14:21 2.0 Weight Weight [ ] I.O. Intake and Output Intake and Output 01/01/19 07:00 Intake Total 1660 ml Output Total 1015 ml Balance 645 ml Intake Oral 160 ml IV Total 1500 ml Output Urine Total 690 ml Drainage Total 325 ml # Voids 2 Labs Labs Laboratory Tests Test 01/01/19 03:25 White Blood Count 11.0 x10^3/uL (4.0-11.0) Red Blood Count 3.67 x10^6/uL (4.30-5.70) Hemoglobin 11.2 g/dL (13.0-17.5) Hematocrit 33.7 % (39.0-53.0) Mean Corpuscular Volume 92 fL (79-100) Mean Corpuscular Hemoglobin 31 pg (25-35) Mean Corpuscular Hemoglobin Concent 33 g/dL (31-37) Red Cell Distribution Width 13.7 % (11.5-14.5) Platelet Count 253 x10^3/uL (140-400) Neutrophils (%) (Auto) 74 % (31-73) Lymphocytes (%) (Auto) 11 % (24-48) Monocytes (%) (Auto) 12 % (0-9) Eosinophils (%) (Auto) 2 % (0-3) Basophils (%) (Auto) 0 % (0-3) Neutrophils # (Auto) 8.1 x10^3uL (1.8-7.7) Lymphocytes # (Auto) 1.2 x10^3/uL (1.0-4.8) Monocytes # (Auto) 1.3 x10^3/uL (0.0-1.1) Eosinophils # (Auto) 0.2 x10^3/uL (0.0-0.7) Basophils # (Auto) 0.0 x10^3/uL (0.0-0.2) Sodium Level 141 mmol/L (136-145) Potassium Level 3.9 mmol/L (3.5-5.1) Chloride Level 106 mmol/L (98-107) Carbon Dioxide Level 25 mmol/L (21-32) Anion Gap 10 (6-14) Blood Urea Nitrogen 20 mg/dL (8-26) Creatinine 1.3 mg/dL (0.7-1.3) Estimated GFR (Cockcroft-Gault) 52.7 BUN/Creatinine Ratio 15 (6-20) Glucose Level 106 mg/dL (70-99) Calcium Level 8.1 mg/dL (8.5-10.1) Total Bilirubin 0.6 mg/dL (0.2-1.0) Aspartate Amino Transf (AST/SGOT) 32 U/L (15-37) Alanine Aminotransferase (ALT/SGPT) 33 U/L (16-63) Alkaline Phosphatase 95 U/L (46-116) Total Protein 5.3 g/dL (6.4-8.2) Albumin 1.7 g/dL (3.4-5.0) Albumin/Globulin Ratio 0.5 (1.0-1.7) Micro Micro Microbiology 12/25/18 Blood Culture - Final, Complete NO GROWTH AFTER 5 DAYS 12/29/18 Urine Culture - Final, Complete 12/29/18 Urine Culture Result 1 (PETERSON) - Final, Complete Review of Systems Constitutional: yes: alert Ears/Nose/Throat: Yes: no symptom reported Eyes: Yes: no symptom reported Pulmonary: Yes no symptom reported Gastrointestional: Yes: no symptom reported Genitourinary: Yes: no symptom reported Musculoskeletal: Yes: no symptom reported Skin: Yes no symptom reported Psychiatric/Neurological: Yes: no symptom reported Endocrine: Yes: no symptom reported Physical Exam General Appearance: no apparent distress Skin: warm Respiratory: decreased breath sounds Heart: S1S2 Abdomen: soft, bowel sounds present Genitourinary: bladder flat Extremities: pulses present Neurology: oriented Assessment Assessment IMP HERBER-RESOLVED HYPOTENSION-BETTER S/P PERC CHOLECYSTOTOMY LEFT HYDRO-AGREE THIS IS PROB NOT FUNCTIONAL PLAN WILL SIGN OFF PLEASE CALL IF NEEDED REGIS STILL MD Jan 01, 2019 10:51
[2019-01-01 11:00] VITALS: BP 109/56
--- NOTE | 2019-01-01 11:33 | NUR ---
SS following up with discharge planning. Authorization for [facility] unit received by Odin. SS phoned and faxed discharge orders to [facility], ; fax [phone]. Pt will discharge today and go to [facility] at 1300 via [facility] transport, [id number]. Pt, pt's RN, and pt's daughter, Nandini Haney, , notified.
--- NOTE | 2019-01-01 13:16 | NUR ---
Patient left the facility in a wheelchair around 1315 with all of his belongings. Discharge paperwork given to oil truck driver and was at bedside when patient left. No concerns noted upon discharge. IV discontinued in right AC without complications and the drain is still intact in his RUQ without any complications. Report called to [facility] around 1240 to SARAH Guerin.
--- NOTE | 2019-01-03 22:13 | PDOC ---
PROGRESS NOTES Chief Complaint Chief Complaint ADMIT H/P [facility] IMPRESSION Weakness Leukocytosis likely 2/2 cholecystis vs infection Cough SEPSIS Influenza + Elevated Troponin H/o CVA HTN HLD GERD Left hydronephrosis which appears represent ureteropelvic junction obstruction is present. 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 to f/u with dr lozano in 2 weeks REVIEW OF SYSTEMS: GENERAL: No weight change, weakness or fevers. SKIN: No bruising, hair changes or rashes. EYES: No blurred, double or loss of vision. NOSE AND THROAT: No nosebleeds, hoarseness or sore throat. HEART: No palpitations, chest pain or shortness of breath on exertion. LUNGS: cough, NO hemoptysis, NO wheezing or shortness of breath. GASTROINTESTINAL: Denies changes in appetite, nausea, vomiting, diarrhea or constipation. GENITOURINARY: No history of frequency, urgency, hesitancy or nocturia. NEUROLOGIC: Denies history of numbness, tingling or tremor. He complains of weakness. PSYCHIATRIC: No history of panic, anxiety or depression. ENDOCRINE: No history of heat or cold intolerance, polyuria or polydipsia. EXTREMITIES: Denies muscle weakness, joint pain, pain on walking or stiffness. PHYSICAL EXAMINATION: VITAL SIGNS: Temperature afebrile this morning, pulse 80; respirations 18 GENERAL: He is alert, cooperative. HEART: Normal S1, S2. LUNGS: Clear. ABDOMEN: Soft. EXTREMITIES: Trace edema. SKIN: No rashes. ENDOCRINE: No thyromegaly. LYMPHATICS: No cervical nodes. HEMATOPOIETIC: No bruising. History of Present Illness History of Present Illness CHIEF COMPLAINT Mr Malik was seen and examined this morning.pain with cough near tube site Patient had cholesystostomy for acute cholecystitis. Started on Zosyn. Discussed case with RN Pt with mild/mod distress, resting in bed Pt white count still elevated at 13.9 Creatinine trending down, on NS. Nephrology, Urology, GI consulted. Patient has completed tamiflu to have c-tube drain x 6 weeks PLAN 1. Flu A/URI: likely causing her generalized weakness. 2. Mild HERBER: Cr at 1.5 3. Elevated troponin: Peaked at 0.14. EKG SR without acute changes. Likely demand mediated induced by flu, type. No cardiac symptoms. 4. HTN: controlled 5. HLP: on goal 6. HX of CVA PLAN 1. TTE, continue with BP regimen. 2. Outpt stress test ADMIT TO SNF VISIT TIME AND CHART REVIEW PAT CARE AND COORDINATION 59 MIN > 50% SPENT IN PT EXAM AND CARE COORDINATION 01/03/19 Vitals Vitals PAST MEDICAL HISTORY: Stroke, GERD, hypertension, hyperlipidemia, tonsillectomy, hernia repair and throat surgery. ALLERGIES: IODINE AND IRON. FAMILY HISTORY: Coronary artery disease. SOCIAL HISTORY: He does not drink, smoke or take drugs. MEDICATIONS: Reviewed. Please refer to the MRAD. Physical Exam Physical Exam GENERAL: NAD, Alert HEENT: PERRL, EOMI NECK: Supple, no JVD, no LN LUNGS: Clear HEART: S1S2, no gallop, no murmur ABD: Soft, NT, no organomegaly, no rebound EXT: No edema, no cyanosis [employer]: Alert, oriented x 3, no focal neurologic deficit SKIN: No rash IV: OUT General: Alert, Oriented X3, Cooperative, No acute distress Heart: Regular rate, Normal S1, Normal S2 Lungs: Clear Abdomen: Normal bowel sounds, Soft, Other (drain bilious less) Extremities: No clubbing, No cyanosis Skin: Other (warm) Labs LABS STATUS: ADM IN ORD. PHYSICIAN: JIMBO SAPP Jr, MD REASON: cholecystitis PROCEDURE: [id number] PERCUT CHOLECYSTOSTOMY Title: Sonographic and fluoroscopic guided percutaneous cholecystostomy Indication: Acute cholecystitis and currently considered a poor surgical candidate. Percutaneous cholecystostomy requested. Anesthesia: Intraservice conscious sedation was obtained with Versed and fentanyl from 1923 hours to 1935 hours blank. Continuous cardiopulmonary monitoring was performed throughout the procedure by trained independent observer. Local anesthesia was obtained with 1% lidocaine. Sterile technique: The procedure was performed utilizing all elements of maximal sterile barrier technique which included: Cap, mask, sterile gown, large sterile drape, and antiseptic hand hygiene, site preparation for cutaneous antisepsis with 2% chlorhexidine or current approved guideline alternative. If ultrasound guidance was utilized, sterile ultrasound techniques were followed including a sterile probe cover. DAP: 15 Gycm^2 Technique/findings: After obtaining informed consent the patient was placed on the angiography table in a supine position. The patient was intravenously administered at perioperative antibiotic. Utilizing sonographic guidance, the gallbladder was somewhat difficult to visualize secondary to its high location under the rib cage. Utilizing real-time sonography, the gallbladder was percutaneously accessed utilizing a 21-gauge needle. All attempts were made to avoid bowel loops. Ultrasound Images confirm placement of the needle in the gallbladder lumen. All ultrasound images were sent to the PACS to become part of the patient's permanent medical record. The needle was exchanged under fluoroscopic guidance over an 018 wire for the 5 Malian transitional sheath. The transitional sheath was then exchanged over an 035 Amplatz guidewire for a 10 Malian cope loop drain. The cope loop was formed within the gallbladder lumen. Approximately 120 mL of thin reddish-green bile was drained. The drainage catheter was then secured at the skin exit site and placed to suction bulb drainage. The patient tolerated the procedure well and after appropriate monitoring was sent to the floor in stable condition. Impression: Sonographic and fluoroscopic guided placement of 10 Malian percutaneous cholecystostomy drain. Approximately 120 mL of thin reddish-green bile was aspirated. The drainage catheter was then placed to suction bulb drainage. Access of the gallbladder was somewhat difficult secondary to its high location lying underneath the rib cage. DICTATED and SIGNED BY: JIMBO SAPP Jr, MD DATE: 12/29/181911 REASON: left hydro PROCEDURE: CT ABDOMEN PELVIS WO CONTRAST Examination: CT ABDOMEN PELVIS WO CONTRAST History: left hydro Comparison/Correlation: None Findings: Axial images of the abdomen and pelvis were obtained without contrast. Right costophrenic sulcus linear atelectasis or scarring noted. Minimal right pleural effusion. Very small left pleural effusion. Unenhanced liver, spleen, pancreas, and adrenal glands are normal. Gallbladder is distended with pericholecystic stranding. Dependent calculi along the posterior wall of the gallbladder noted. Calculus at the gallbladder neck an cystic duct junction measuring 1 cm in diameter is present. No radiopaque right collecting system calculi. Left hydronephrosis which appears represent ureteropelvic junction obstruction is present. Possibility of parapelvic cysts also being present is raised. There is no perinephric stranding. 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 Diverticulosis of the colon is present. No extraluminal gas. No loculated collections. No bowel obstruction. Urinary bladder is unremarkable. Bony structures are unremarkable for age. Impression: Acute cholecystitis. Obstructive duct at the junction of the gallbladder neck and cystic duct appears to be present. Cholelithiasis. Results reported to patient's nurse Ellie on 12/29/2018 at 3:50 PM. Saccular infrarenal abdominal aortic aneurysm. 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 PQRS Compliance Statement: Review of Systems Review of Systems EXAM: Two-dimensional and M-mode echocardiogram with Doppler and color Doppler. INDICATION Dyspnea LEFT VENTRICLE The left ventricle is normal size. There is mild to moderate concentric left ventricular hypertrophy. The left ventricular systolic function is normal. The ejection fraction is 60-65%. There is normal LV segmental wall motion. Transmitral Doppler flow pattern is Grade I-abnormal relaxation pattern. RIGHT VENTRICLE The right ventricle is normal size. The right ventricle is mildly hypertrophied. The right ventricular systolic function is normal. ATRIA The left atrium is borderline dilated. The right atrium is mildly dilated. The interatrial septum is intact with no evidence for an atrial septal defect or patent foramen ovale as noted on 2-D or Doppler imaging. AORTIC VALVE The aortic valve is thickened but opens well. Doppler and Color Flow revealed mild aortic regurgitation. There is no significant aortic valvular stenosis. MITRAL VALVE The mitral valve is normal in structure and function. There is no evidence of mitral valve prolapse. There is no mitral valve stenosis. Doppler and Color- flow revealed trace mitral regurgitation. TRICUSPID VALVE The tricuspid valve is normal in structure and function. Doppler and Color Flow revealed mild tricuspid regurgitation. There is no tricuspid valve stenosis. GREAT VESSELS The aortic root is normal in size. The IVC was not visualized. PERICARDIAL EFFUSION There is no evidence of significant pericardial effusion. Critical Notification Critical Value: No <Conclusion> The left ventricular systolic function is normal. The ejection fraction is 60-65%. There is normal LV segmental wall motion. Transmitral Doppler flow pattern is Grade I-abnormal relaxation pattern. Mild aortic regurgitation. Trace mitral regurgitation. Mild tricuspid regurgitation. There is no evidence of significant pericardial effusion. Signed by : Hugo Luke, Electronically Approved : 12/26/2018 07:18:05 CT HEAD WO CONTRAST History: Weakness, previous stroke Comparison: June 17, 2018 Technique: Noncontrast CT imaging was performed of the head. Exposure: One or more of the following individualized dose reduction techniques were utilized for this examination: 1. Automated exposure control 2. Adjustment of the mA and/or kV according to patient size 3. Use of iterative reconstruction technique. Findings: No acute intracranial hemorrhage is identified. There is again multifocal scattered ill-defined low-density of the supratentorial parenchyma also some areas of more ill-defined low-density in a bilateral distribution as seen previously. There is also focus of relative lower density of the left lateral krystle although artifact in this region limiting evaluation, difficult to discern if a true finding. There is no new midline shift or intra-axial mass effect. Visualized paranasal sinuses and mastoid air cells are aerated. There is atherosclerotic calcification of the carotid siphons bilaterally. Impression: 1. There is no evidence of acute intracranial hemorrhage. There is a focus of relative lower density of the left lateral krystle difficulty characterize if a true finding although focus of subacute infarct a consideration in the appropriate clinical setting. As seen previously, there is multifocal low-density in a bilateral distribution, evidence of combination of chronic microvascular ischemic disease and multifocal lacunar infarcts. MRI would more accurately evaluate for recent infarct especially given multifocal old infarcts. Electronically signed by: Jack Livingston MD (12/24/2018 8:40 PM) [facility] Assessment and Plan Assessmemt and Plan Problems Medical Problems: (1) Elevated troponin Status: Acute (2) Influenza A Status: Acute Current Medications Acetaminophen (Tylenol) 1,000 mg 1X ONCE PO Last administered on 12/24/18 19: 30; Start 12/24/18 at 19:30; Stop 12/24/18 at 19:33; Status DC Sodium Chloride 1,000 ml @ 125 mls/hr 1X ONCE IV Last administered on 19:30; Start 12/24/18 at 19:30; Stop 12/25/18 at 03:29; Status DC Oseltamivir Phosphate (Tamiflu) 75 mg 1X ONCE PO Last administered on 20:00; Start 12/24/18 at 20:00; Stop 12/24/18 at 20:01; Status DC Aspirin (Elier Aspirin) 325 mg 1X ONCE PO Last administered on 12/24/18 21:58 ; Start 12/24/18 at 22:00; Stop 12/24/18 at 22:01; Status DC Oseltamivir Phosphate (Tamiflu) 30 mg BID PO Last administered on 12/29/18 11: 00; Start 12/25/18 at 09:00; Stop 12/29/18 at 09:01; Status DC Aspirin (Ecotrin) 325 mg DAILYWBKFT PO Last administered on 01/01/19 08:25; Start 12/25/18 at 12:00 Atorvastatin Calcium (Lipitor) 40 mg QHS PO Last administered on 12/31/18 20: 45; Start 12/25/18 at 21:00 Metoprolol Succinate (Toprol Xl) 25 mg DAILY PO Last administered on 12/31/18 09:43; Start 12/25/18 at 12:00 Vitamin D (Vitamin D3) 2,000 unit DAILY PO Last administered on 01/01/19 08:24 ; Start 12/25/18 at 12:00 Losartan Potassium (Cozaar) 100 mg DAILY PO Last administered on 12/28/18 09:18 ; Start 12/25/18 at 12:00; Stop 12/28/18 at 13:46; Status DC Multivitamins (Thera M Plus) 1 tab DAILY PO Last administered on 01/01/19 08: 24; Start 12/25/18 at 12:00 Pantoprazole Sodium (Protonix) 40 mg DAILYAC PO Last administered on 01/01/19 08:25; Start 12/25/18 at 12:00 Calcium Carbonate/ Glycine (Tums) 500 mg PRN AFTMEALHC PRN PO INDIGESTION Last administered on 12/26/18 08:34; Start 12/25/18 at 22:15 Trazodone HCl (Desyrel) 50 mg PRN QHS PRN PO INSOMNIA Last administered on 20:16; Start 12/26/18 at 21:00 Amoxicillin/ Clavulanate Potassium (Augmentin 875/ 125mg) 1 tab BID PO Last administered on 12/29/18 11:01; Start 12/28/18 at 12:00; Stop 12/29/18 at 16:00; Status DC Sodium Chloride 1,000 ml @ 75 mls/hr [id number] IV ; Start 12/28/18 at 12:00; Stop 12/29/18 at 13:13; Status DC Lactobacillus Rhamnosus (Culturelle) 1 cap BID PO Last administered on 08:25; Start 12/28/18 at 14:00 Acetaminophen (Tylenol) 500 mg PRN Q6HRS PRN PO MILD PAIN / TEMP Last administered on 12/29/18at 16:10; Start 12/28/18 at 20:15 Sodium Chloride 1,000 ml @ 75 mls/hr [id number] IV Last administered on at 06:10; Start 12/29/18 at 11:30 Tamsulosin HCl (Flomax) 0.4 mg DAILY PO Last administered on 01/01/19at 08:24; Start 12/29/18 at 13:00 Piperacillin Sod/ Tazobactam Sod (Zosyn Per Pharmacy) 1 each PRN DAILY PRN MC SEE COMMENTS; Start 12/29/18 at 16:00 Piperacillin Sod/ Tazobactam Sod 2.25 gm/Sodium Chloride 50 ml @ 100 mls/hr Q6HRS IV Last administered on 01/01/19at 06:00; Start 12/29/18 at 17:00 Lidocaine/Sodium Bicarbonate (Buffered Lidocaine 1%) 3 ml STK-MED ONCE .ROUTE ; Start 12/29/18 at 18:42; Stop 12/29/18 at 18:43; Status DC Iohexol (Omnipaque 300 Mg/ml) 100 ml STK-MED ONCE .ROUTE ; Start 12/29/18 at 18: 43; Stop 12/29/18 at 18:44; Status DC Hydrocortisone Sodium Succinate (Solu-CORTEF) 250 mg STK-MED ONCE .ROUTE ; Start 12/29/18 at 18:48; Stop 12/29/18 at 18:49; Status DC Midazolam HCl (Versed) 2 mg STK-MED ONCE .ROUTE ; Start 12/29/18 at 18:49; Stop 12/29/18 at 18:50; Status DC Fentanyl Citrate (Fentanyl 2ml Vial) 100 mcg STK-MED ONCE .ROUTE ; Start at 18:49; Stop 12/29/18 at 18:50; Status DC Diphenhydramine HCl (Benadryl) 50 mg STK-MED ONCE .ROUTE ; Start 12/29/18 at 18: 49; Stop 12/29/18 at 18:50; Status DC Iodixanol (Visipaque 320) 100 ml STK-MED ONCE .ROUTE ; Start 12/29/18 at 18:51; Stop 12/29/18 at 18:52; Status DC Acetaminophen/ Hydrocodone Bitart (Lortab 5/325) 1 tab PRN Q4HRS PRN PO MODERATE PAIN Last administered on 12/30/18at 22:49; Start 12/29/18 at 19:15 Acetaminophen/ Hydrocodone Bitart (Lortab 5/325) 2 tab PRN Q4HRS PRN PO SEVERE PAIN; Start 12/29/18 at 19:15 Cefazolin Sodium 50 ml @ As Directed STK-MED ONCE IV ; Start 12/29/18 at 19:25; Stop 12/29/18 at 19:26; Status DC Lidocaine/Sodium Bicarbonate (Buffered Lidocaine 1%) 6 ml 1X ONCE IJ Last administered on 12/29/18 19:55; Start 12/29/18 at 19:45; Stop 12/29/18 at 19:48; Status DC Midazolam HCl (Versed) 1.5 mg 1X ONCE IV Last administered on 12/29/18 19:56; Start 12/29/18 at 19:45; Stop 12/29/18 at 19:48; Status DC Fentanyl Citrate (Fentanyl 2ml Vial) 100 mcg 1X ONCE IV Last administered on 19:56; Start 12/29/18 at 20:00; Stop 12/29/18 at 20:01; Status DC Iodixanol (Visipaque 320) 16 ml 1X ONCE IART Last administered on 12/29/18 19: 55; Start 12/29/18 at 19:45; Stop 12/29/18 at 19:48; Status DC Cefazolin Sodium 50 ml @ 100 mls/hr 1X ONCE IV Last administered on 12/29/18 19:55; Start 12/29/18 at 19:45; Stop 12/29/18 at 20:14; Status DC Hydrocortisone Sodium Succinate (Solu-CORTEF) 100 mg 1X ONCE IV Last administered on 12/29/18 19:55; Start 12/29/18 at 19:45; Stop 12/29/18 at 19:48; Status DC Diphenhydramine HCl (Benadryl) 50 mg 1X ONCE IVP Last administered on 19:56; Start 12/29/18 at 19:45; Stop 12/29/18 at 19:48; Status DC Throat Lozenges (Cepacol Sore Throat Lozenge) 1 wilner PRN Q2HRS PRN PO SORE THROAT Last administered on 12/30/18 22:50; Start 12/30/18 at 09:45 Fentanyl Citrate (Fentanyl 2ml Vial) 50 mcg PRN Q2HR PRN IV SEVERE PAIN Last administered on 12/30/18 14:43; Start 12/30/18 at 14:30 Comment Review of Relevant I have reviewed the following items timoteo (where applicable) has been applied. Labs Microbiology 12/25/18 Blood Culture - Final, Complete NO GROWTH AFTER 5 DAYS 12/29/18 Urine Culture - Final, Complete 12/29/18 Urine Culture Result 1 ([facility]) - Final, Complete Medications Current Medications Acetaminophen (Tylenol) 1,000 mg 1X ONCE PO Last administered on 12/24/18 19: 30; Start 12/24/18 at 19:30; Stop 12/24/18 at 19:33; Status DC Sodium Chloride 1,000 ml @ 125 mls/hr 1X ONCE IV Last administered on 19:30; Start 12/24/18 at 19:30; Stop 12/25/18 at 03:29; Status DC Oseltamivir Phosphate (Tamiflu) 75 mg 1X ONCE PO Last administered on 20:00; Start 12/24/18 at 20:00; Stop 12/24/18 at 20:01; Status DC Aspirin (Elier Aspirin) 325 mg 1X ONCE PO Last administered on 12/24/18 21:58 ; Start 12/24/18 at 22:00; Stop 12/24/18 at 22:01; Status DC Oseltamivir Phosphate (Tamiflu) 30 mg BID PO Last administered on 12/29/18 11: 00; Start 12/25/18 at 09:00; Stop 12/29/18 at 09:01; Status DC Aspirin (Ecotrin) 325 mg DAILYWBKFT PO Last administered on 01/01/19 08:25; Start 12/25/18 at 12:00; Stop 01/01/19 at 13:19; Status DC Atorvastatin Calcium (Lipitor) 40 mg QHS PO Last administered on 12/31/18 20: 45; Start 12/25/18 at 21:00; Stop 01/01/19 at 13:19; Status DC Metoprolol Succinate (Toprol Xl) 25 mg DAILY PO Last administered on 12/31/18 09:43; Start 12/25/18 at 12:00; Stop 01/01/19 at 13:19; Status DC Vitamin D (Vitamin D3) 2,000 unit DAILY PO Last administered on 01/01/19 08:24 ; Start 12/25/18 at 12:00; Stop 01/01/19 at 13:19; Status DC Losartan Potassium (Cozaar) 100 mg DAILY PO Last administered on 12/28/18 09:18 ; Start 12/25/18 at 12:00; Stop 12/28/18 at 13:46; Status DC Multivitamins (Thera M Plus) 1 tab DAILY PO Last administered on 01/01/19 08: 24; Start 12/25/18 at 12:00; Stop 01/01/19 at 13:19; Status DC Pantoprazole Sodium (Protonix) 40 mg DAILYAC PO Last administered on 01/01/19 08:25; Start 12/25/18 at 12:00; Stop 01/01/19 at 13:19; Status DC Calcium Carbonate/ Glycine (Tums) 500 mg PRN AFTMEALHC PRN PO INDIGESTION Last administered on 12/26/18at 08:34; Start 12/25/18 at 22:15; Stop 01/01/19 at 13:19; Status DC Trazodone HCl (Desyrel) 50 mg PRN QHS PRN PO INSOMNIA Last administered on 20:16; Start 12/26/18 at 21:00; Stop 01/01/19 at 13:19; Status DC Amoxicillin/ Clavulanate Potassium (Augmentin 875/ 125mg) 1 tab BID PO Last administered on 12/29/18at 11:01; Start 12/28/18 at 12:00; Stop 12/29/18 at 16:00; Status DC Sodium Chloride 1,000 ml @ 75 mls/hr [id number] IV ; Start 12/28/18 at 12:00; Stop 12/29/18 at 13:13; Status DC Lactobacillus Rhamnosus (Culturelle) 1 cap BID PO Last administered on at 08:25; Start 12/28/18 at 14:00; Stop 01/01/19 at 13:19; Status DC Acetaminophen (Tylenol) 500 mg PRN Q6HRS PRN PO MILD PAIN / TEMP Last administered on 12/29/18at 16:10; Start 12/28/18 at 20:15; Stop 01/01/19 at 13:19; Status DC Sodium Chloride 1,000 ml @ 75 mls/hr [id number] IV Last administered on at 06:10; Start 12/29/18 at 11:30; Stop 01/01/19 at 13:19; Status DC Tamsulosin HCl (Flomax) 0.4 mg DAILY PO Last administered on 01/01/19at 08:24; Start 12/29/18 at 13:00; Stop 01/01/19 at 13:19; Status DC Piperacillin Sod/ Tazobactam Sod (Zosyn Per Pharmacy) 1 each PRN DAILY PRN MC SEE COMMENTS; Start 12/29/18 at 16:00; Stop 01/01/19 at 13:19; Status DC Piperacillin Sod/ Tazobactam Sod 2.25 gm/Sodium Chloride 50 ml @ 100 mls/hr Q6HRS IV Last administered on 01/01/19at 11:20; Start 12/29/18 at 17:00; Stop 10/10 at 13:19; Status DC Lidocaine/Sodium Bicarbonate (Buffered Lidocaine 1%) 3 ml STK-MED ONCE .ROUTE ; Start 12/29/18 at 18:42; Stop 12/29/18 at 18:43; Status DC Iohexol (Omnipaque 300 Mg/ml) 100 ml STK-MED ONCE .ROUTE ; Start 12/29/18 at 18: 43; Stop 12/29/18 at 18:44; Status DC Hydrocortisone Sodium Succinate (Solu-CORTEF) 250 mg STK-MED ONCE .ROUTE ; Start 12/29/18 at 18:48; Stop 12/29/18 at 18:49; Status DC Midazolam HCl (Versed) 2 mg STK-MED ONCE .ROUTE ; Start 12/29/18 at 18:49; Stop 12/29/18 at 18:50; Status DC Fentanyl Citrate (Fentanyl 2ml Vial) 100 mcg STK-MED ONCE .ROUTE ; Start at 18:49; Stop 12/29/18 at 18:50; Status DC Diphenhydramine HCl (Benadryl) 50 mg STK-MED ONCE .ROUTE ; Start 12/29/18 at 18: 49; Stop 12/29/18 at 18:50; Status DC Iodixanol (Visipaque 320) 100 ml STK-MED ONCE .ROUTE ; Start 12/29/18 at 18:51; Stop 12/29/18 at 18:52; Status DC Acetaminophen/ Hydrocodone Bitart (Lortab 5/325) 1 tab PRN Q4HRS PRN PO MODERATE PAIN Last administered on 12/30/18at 22:49; Start 12/29/18 at 19:15; Stop 01/01/19 at 13:19; Status DC Acetaminophen/ Hydrocodone Bitart (Lortab 5/325) 2 tab PRN Q4HRS PRN PO SEVERE PAIN; Start 12/29/18 at 19:15; Stop 01/01/19 at 13:19; Status DC Cefazolin Sodium 50 ml @ As Directed STK-MED ONCE IV ; Start 12/29/18 at 19:25; Stop 12/29/18 at 19:26; Status DC Lidocaine/Sodium Bicarbonate (Buffered Lidocaine 1%) 6 ml 1X ONCE IJ Last administered on 12/29/18 19:55; Start 12/29/18 at 19:45; Stop 12/29/18 at 19:48; Status DC Midazolam HCl (Versed) 1.5 mg 1X ONCE IV Last administered on 12/29/18 19:56; Start 12/29/18 at 19:45; Stop 12/29/18 at 19:48; Status DC Fentanyl Citrate (Fentanyl 2ml Vial) 100 mcg 1X ONCE IV Last administered on 19:56; Start 12/29/18 at 20:00; Stop 12/29/18 at 20:01; Status DC Iodixanol (Visipaque 320) 16 ml 1X ONCE IART Last administered on 12/29/18 19: 55; Start 12/29/18 at 19:45; Stop 12/29/18 at 19:48; Status DC Cefazolin Sodium 50 ml @ 100 mls/hr 1X ONCE IV Last administered on 12/29/18at 19:55; Start 12/29/18 at 19:45; Stop 12/29/18 at 20:14; Status DC Hydrocortisone Sodium Succinate (Solu-CORTEF) 100 mg 1X ONCE IV Last administered on 12/29/18at 19:55; Start 12/29/18 at 19:45; Stop 12/29/18 at 19:48; Status DC Diphenhydramine HCl (Benadryl) 50 mg 1X ONCE IVP Last administered on at 19:56; Start 12/29/18 at 19:45; Stop 12/29/18 at 19:48; Status DC Throat Lozenges (Cepacol Sore Throat Lozenge) 1 wilner PRN Q2HRS PRN PO SORE THROAT Last administered on 12/30/18at 22:50; Start 12/30/18 at 09:45; Stop 01/01 at 13:19; Status DC Fentanyl Citrate (Fentanyl 2ml Vial) 50 mcg PRN Q2HR PRN IV SEVERE PAIN Last administered on 12/30/18at 14:43; Start 12/30/18 at 14:30; Stop 01/01/19 at 13:19 ; Status DC Active Scripts Active Augmentin 500-125 Tablet (Amoxicillin/Potassium Clav) 1 Each Tablet 1 Tab PO BID 7 Days Atorvastatin Calcium 40 Mg Tablet 40 Mg PO QHS 30 Days Aspirin Ec (Aspirin) 325 Mg Tablet.dr 325 Mg PO DAILYWBKFT 30 Days Reported Vitamin B-12 (Cyanocobalamin (Vitamin B-12)) 1,000 Mcg Tablet 1 Tab PO DAILY Metoprolol Succinate ( Xl ) (Metoprolol Succinate) 25 Mg Tab.er.24h 1 Tab PO DAILY Losartan Potassium 100 Mg Tablet 100 Mg PO DAILY Multivitamins (Multivitamin) 1 Each Tablet 1 Tab PO DAILY Vitamin D (Cholecalciferol (Vitamin D3)) 2,000 Unit Capsule 1 Cap PO DAILY MERCY LARSON MD Jan 03, 2019 22:13
[2019-02-13] MEDS ORDERED: CLOP75TA PO (13:01)
[2019-02-13] MEDS ORDERED: ASPI-630 PO (13:01)
[2019-02-13] MEDS ORDERED: TAMS0.4C97 PO (13:03)
== END 2019-01-01 13:15 | DRG 871 ==
LOC: ER 19:10 → 2 NORTH 21:25
PROVIDERS: ADMIT Internal Medicine; ATTEND Internal Medicine
PROC: 0F9430Z Drainage of Gallbladder with Drainage Device, Percutaneous Approach (ICD-10-PCS; principal; 2018-12-29)
DX: A41.9 Sepsis, unspecified organism (principal); N17.0 Acute kidney failure with tubular necrosis; K80.00 Calculus of gallbladder with acute cholecystitis without obstruction; N13.1 Hydronephrosis with ureteral stricture, not elsewhere classified; E87.1 Hypo-osmolality and hyponatremia; J10.1 Influenza due to other identified influenza virus with other respiratory manifestations; K21.9 Gastro-esophageal reflux disease without esophagitis; I10 Essential (primary) hypertension; E78.00 Pure hypercholesterolemia, unspecified; E78.5 Hyperlipidemia, unspecified; I25.10 Atherosclerotic heart disease of native coronary artery without angina pectoris; I95.9 Hypotension, unspecified; D64.9 Anemia, unspecified; K59.00 Constipation, unspecified; Z86.73 Personal history of transient ischemic attack (TIA), and cerebral infarction without residual deficits; Z88.8 Allergy status to other drugs, medicaments and biological substances; Z91.041 Radiographic dye allergy status; Z82.49 Family history of ischemic heart disease and other diseases of the circulatory system; Z87.11 Personal history of peptic ulcer disease
CPT/HCPCS: 36415; 47490; 70450; 71045; 71046; 74176; 76770; 80048; 80053; 80061; 81001; 82553; 82962; 83605; 83735; 83880; 84484; 85007; 85025; 85610; 87040; 87086; 87804; 93005; 93306; 99152; 99153; A4314; C1729; C1769; C1892; J0690; J1200; J2250; J2543; J3010; J7030; Q9967; 97110; 97116; 97530; 97535; 99285-25

== ENCOUNTER → 2019-01-16 | Outpatient (CLI) | payer OTHER ==
[2019-01-01 11:00] VITALS: BP 109/56
[~2019-01-16] MED LIST changes: +AMOX1TAB58 PO; +CLOP75TA PO; +CYAN10005 PO; +LOSA100T14 PO; +OSEL30CA PO; +REGADENOSON 0.4 MG/5 ML DISP.SYRIN. IV ONE; +TAMS0.4C97 PO
--- NOTE | 2019-01-16 12:31 | RAD ---
MR#: [id number] Date of Study: 01/16/2019 Ordering Physician: RUSTY CONNELLY, Referring Physician: GABI HERNANDEZ Tech: RT Eddie (R) (N) APPROVED REPORT Test Type: Pharmacological Stress Nurse/Tech: Sadie Henry RN Test Indications: elevated troponin Cardiac History: CVA 2017 Medications: See Electronic Medical Record Medical History: See Electronic Medical Record Resting ECG: SR Resting Heart Rate: 65 bpm Resting Blood Pressure: 116/61mmHg Pretest Chest Pain: None Nurse/Tech Notes Lungs CTA, S1S2 Consent: The procedure was explained to the patient in lay terms. Informed consent was witnessed. Eder eout was entered into [employer]. History and Stress Test performed by Sadie Henry RN Pharm. Details Pharmacologic stress testing was performed using 0.4mg per 5ml of regadenoson given intravenously ove r 7-10 seconds. Stress Symptoms No chest pain or symptoms. POST EXERCISE Reason for Termination: Infusion complete Max HR: 93 bpm Max Blood Pressure: 116/55mmHg Blood Pressure response to exercise: Normal blood pressure response during stress. Heart Rate response to exercise: normal response Chest Pain: No. Arrhythmia: No. ST Change: No. INTERPRETATION Stress EKG Conclusion: No evidence of stress induced EKG changes. Rest: Stress: Viability: Radiopharm.Tc99m SqyuhzltfAw90a Sestamibi Klxy27bPv 32mCi Img Date 01/16/2019 01/16/2019 Inj-Img Ihmh16ppz. 60min. Rest Admin Site:IV - Right AntecubitalAdministrator:PETER Reddy, ARRT (R)(N) Stress Admin Site: IV - Right AntecubitalAdministrator: RT Nic (R)(N) STRESS DATA End Diast. Vol.89.0mlLVEDV index BSA42.0ml End Syst. Vol.35.0mlLVESV index BSA16.0ml Myocardial Kzom480.0gEject. Ykpvukkt46.0% Stress Scores Regional WT2.00Summed WT11.00 Regional WM0.00Summed WM5.00 LV Perfusion Normal perfusion at stress images. The rest images are notable for subdiaphragmatic attenuation artif act. Wall Motion Normal wall motion. EF 61% LV Perf. Quant 17 Seg. SSS5.00 17 Seg. SRS10.00 17 Seg. SDS2.00 Stress Defect Extent (% LAD)0.00Rest Defect Extent (% LAD)0.00Rev. Defect Extent (% LAD)0.00 Stress Defect Extent (% LCX) 50.00Rest Defect Extent (% LCX)47.50Rev. Defect Extent (% LCX)21.30 Stress Defect Extent (% RCA)0.00Rest Defect Extent (% RCA)13.30Rev. Defect Extent (% RCA)0.00 Stress Defect Extent (% BERTA)10.40Rest Defect Extent (% BERTA)14.80Rev. Defect Extent (% BERTA)4.30 Other Information Quality:Fair Risk Assessment: Low Risk Conclusion 1. No evidence of EKG changes with stress testing. 2. Normal perfusion at stress. Rest images notable for artifact. 3. Low risk study. 4. EF > 60%. Signed by : Niels Vora, Electronically Approved : 01/16/2019 12:31:08
== END | disposition home or self-care (01) ==
LOC: NM 08:37
PROVIDERS: ATTEND Internal Medicine Cardiovascular Disease
DX: R79.89 Other specified abnormal findings of blood chemistry (principal); Z86.73 Personal history of transient ischemic attack (TIA), and cerebral infarction without residual deficits
CPT/HCPCS: 78452; 93017; 96374; A9500; J2785

== ENCOUNTER → 2019-02-08 | Outpatient (CLI) | payer OTHER ==
[~2019-02-08] MED LIST changes: +IOHEXOL 300 MG/ML 100ML VIAL. INT CAT ONE; -REGADENOSON 0.4 MG/5 ML DISP.SYRIN. IV ONE
--- NOTE | 2019-02-08 14:29 | RAD ---
Injection of pre-existing cholecystostomy tube. 02/08/2019 INDICATION: Catheter in place. Evaluate gallbladder drainage. Discussion: The risks and benefits of the procedure were discussed the patient. Informed consent was obtained. Timeout procedure was performed. [employer] image of the abdomen demonstrates right upper quadrant drainage catheter consistent with a cholecystostomy tube. The catheter assembly be partially obstructed. Small amount of contrast was demonstrated the catheter which filled the gallbladder. Multiple irregular filling defects are seen likely conglomeration of gallstones and sludge. The cystic duct was filled minimal contrast emptying into what appears to be the common bile duct. Evaluation is limited given poor injection ability. The catheter was flushed, and secured in place. Sterile dressings were applied. Discussion was had with the referring surgeon. The patient will return to the clinic for evaluation and possible tube removal versus cholecystectomy. Fluoroscopy time: 3.4 minutes. Dose rate product 1464 uGym2 gr Electronically signed by: Ming Ervin MD (02/08/2019 2:26 PM) [id number]
== END | disposition home or self-care (01) ==
LOC: RAD 08:14
PROVIDERS: ATTEND Surgery
DX: K81.0 Acute cholecystitis (principal); Z88.8 Allergy status to other drugs, medicaments and biological substances
CPT/HCPCS: 47531; Q9967

== ENCOUNTER 2019-02-14 06:56 | Inpatient (IN) | payer OTHER ==
[~2019-02-14] VITALS: Ht 182.9 cm; Wt 103.2 kg
[~2019-02-14 06:56] MED LIST changes: -IOHEXOL 300 MG/ML 100ML VIAL. INT CAT ONE
[2019-02-14] MEDS ORDERED: LIDOCAINE 1% PF 2 ML VIAL. ID PRN (07:00)
[2019-02-14] MEDS ORDERED: fentaNYL PF VIAL 100 MCG/2 ML VIAL IV PRN ×2 (07:00)
[2019-02-14] MEDS ORDERED: MORPHINE SULFATE 2 MG/ML VIAL. IV PRN (07:00)
[2019-02-14] MEDS ORDERED: IV RINGERS,LACTATED 1000ML 1,000 ML IV SCH (07:00)
[2019-02-14] MEDS ORDERED: PROCHLORPERAZINE 10 MG/2 ML VIAL. IV PRN (07:00)
[2019-02-14] MEDS ORDERED: ONDANSETRON PF 4 MG/2 ML VIAL. IV PRN (07:00)
[2019-02-14] MEDS ORDERED: HYDROmorphone 2 MG/ML VIAL IV PRN (07:00)
[2019-02-14 07:49] LABS: BASO # 0.1 x10^3/uL (0.0-0.2); BASO % 1 % (0-3); EOS # 0.5 x10^3/uL (0.0-0.7); EOS % 5 % (0-3); HEMATOCRIT 39.4 % (39.0-53.0); HEMOGLOBIN 13.2 g/dL (13.0-17.5); LYMPH # 1.9 x10^3/uL (1.0-4.8); LYMPH % 22 % (24-48); MEAN CORPUSCULAR HEMOGLOBIN 31 pg (25-35); MEAN CORPUSCULAR HGB CONC 34 g/dL (31-37); MEAN CORPUSCULAR VOLUME 93 fL (79-100); MONO # 1.1 x10^3/uL (0.0-1.1); MONO % 13 % (0-9); NEUT # 5.1 x10^3uL (1.8-7.7); NEUT % 59 % (31-73); PLATELET COUNT 225 x10^3/uL (140-400); RED BLOOD COUNT 4.22 x10^6/uL (4.30-5.70); RED CELL DISTRIBUTION WIDTH 14.5 % (11.5-14.5); WHITE BLOOD COUNT 8.7 x10^3/uL (4.0-11.0)
[2019-02-14 07:54] LABS: CALCIUM 8.7 mg/dL (8.5-10.1); CREATININE 1.3 mg/dL (0.7-1.3); GFR 52.7; POTASSIUM 4.1 mmol/L (3.5-5.1)
[2019-02-14 07:59] LABS: ALBUMIN 3.4 g/dL (3.4-5.0)
[2019-02-14] MEDS ORDERED: SEVOFLURANE 61 TO 120 MINUTES. IH ONE (08:17)
[2019-02-14] MEDS ORDERED: DEXAMETHASONE SOD PHOS 4 MG/ML VIAL ONE ×2 (08:17→16:06)
[2019-02-14] MEDS ORDERED: ROCURONIUM 50 MG/5 ML VIAL. ONE ×2 (08:17→13:14)
[2019-02-14] MEDS ORDERED: ONDANSETRON PF 4 MG/2 ML VIAL. ONE ×2 (08:17→16:05)
[2019-02-14] MEDS ORDERED: LIDOCAINE 2% PF 5 ML VIAL. ONE ×2 (08:17→16:05)
[2019-02-14] MEDS ORDERED: PROPOFOL 20 ML IV ONE ×2 (08:17→16:05)
[2019-02-14] MEDS ORDERED: fentaNYL PF VIAL 100 MCG/2 ML VIAL ONE ×4 (08:39→16:06)
[2019-02-14] MEDS ORDERED: BUPIVAC MPF-EPI 0.5%-1:200000 30 ML VIAL. ONE ×2 (10:01→15:13)
[2019-02-14] MEDS ORDERED: SURGICEL HEMOSTAT 4X8 EACH. ONE ×5 (10:01→15:50)
[2019-02-14] MEDS ORDERED: GLUCAGON,HUMAN RECOMBINANT 1 MG/ML VIAL. ONE (10:01)
[2019-02-14] MEDS ORDERED: IOHEXOL 300 MG/ML 100ML VIAL. ONE (10:01)
[2019-02-14] MEDS ORDERED: ceFAZolin 2GM PREMIX 2 GM/50 ML BAG IV ONE (11:00)
[2019-02-14] MEDS ORDERED: diphenhydrAMINE 50 MG/ML VIAL ONE (13:14)
[2019-02-14] MEDS ORDERED: FAMOTIDINE 20 MG/2 ML VIAL ONE ×2 (13:14→16:05)
--- NOTE | 2019-02-14 13:28 | RAD ---
C-arm fluoroscopy with fluoroscopic spot views Clinical indications: Intraoperative cholangiogram Total fluoroscopic time: 1 minute and 59 seconds. Total fluoroscopic spot images: 2. IMPRESSION: Fluoroscopic spot images demonstrate opacification of a dilated cystic duct and common bile duct. The common hepatic duct is not opacified. There is mild opacification of the left intrahepatic duct. Contrast is not seen within the duodenum but this may be due to the nxegk-xc-sxdx cut off. Stricture at the distal common bile duct near the sphincter of Tommy is certainly possible. No common bile duct stone is evident. Note-this study was discussed with Dr. Jasson Bueno at 1:22 PM on February 14, 2019. He said that they saw contrast within the duodenum during real-time fluoroscopy. I talked to the x-ray technologist and these were the only 2 images that were saved. Electronically signed by: Jose Macdonald MD (02/14/2019 1:25 PM) [id number]
[2019-02-14] MEDS ORDERED: DEXTROSE 50% 25 GM / 50ML DISP.SYRIN. IV PRN (14:00)
[2019-02-14] MEDS ORDERED: 0.9 % SODIUM CHLORIDE 10 ML DISP.SYRIN. IV PRN (14:00)
--- NOTE | 2019-02-14 14:14 | PDOC ---
BRIEF OPERATIVE NOTE Date: Feb 14, 2019 Pre-Op Diagnosis cholelithiasis, acute cholecystitis s/p cholecystostomy tube placement seven weeks ago Post-Op Diagnosis same with chronic cholecystitis Procedure Performed l/s cholecystectomy with cholangiograms Surgeon Myles Elect Equip Maint Eng Elvira Ragland Anesthesia Type: General Blood Loss 200cc IV Fluid 800cc Urine Output 50cc Specimens Obtained GB Findings chronically inflamed GB Complications none Operative Note Wk # [id number] KEESHA POLLACK MD Feb 14, 2019 14:14
--- NOTE | 2019-02-14 14:31 | OP ---
DATE OF SURGERY: 02/14/2019 PREOPERATIVE DIAGNOSIS: Cholelithiasis with history of acute cholecystitis status post cholecystostomy tube placed several weeks ago. POSTOPERATIVE DIAGNOSIS: Cholelithiasis with history of acute cholecystitis status post cholecystostomy tube placed several weeks ago with chronic cholecystitis. PROCEDURE: Laparoscopic cholecystectomy with cholangiogram. SURGEON: Jasson Pollack MD GRANITE POLISHER: Dr. Stevens and JENNY Hilton. ANESTHESIA: General endotracheal. ESTIMATED BLOOD LOSS: 200. INTRAVENOUS FLUID: 800. URINE OUTPUT: 50. OPERATIVE REPORT: The patient was brought to the operating suite, given a general endotracheal anesthetic and the abdomen prepped and draped in usual sterile fashion. An infraumbilical incision was made through the skin and subcutaneous tissue and the 5 mm Visiport used to gain access into the abdominal cavity taking care to avoid injury to abdominal contents. Pneumoperitoneum was established. Camera inserted and under direct vision, the epigastric, midclavicular and lateral ports were placed. The gallbladder was retracted superolaterally after taking down adhesions to expose the neck. The cystic artery was encountered adherent to the duct and it was isolated, clipped and divided. Duct was clipped on the gallbladder side. Cholangiograms were made. These showed filling of the distal common duct with some contrast spilling into the duodenum and with the bed in steep Trendelenburg, some faint filling of the proximal radicals. In light of this, the catheter was removed, the cystic duct was clipped and divided taking care to avoid injury or compromise of the common duct. Dissection carried up out of the fossa of the chronically inflamed gallbladder. Bleeding controlled with clips and cautery. Gallbladder placed in an EndoCatch bag. Hemostasis obtained in the fossa with cautery and some Surgicel. No evidence of bile leak was seen. A 19-Chinese round Garret drain was brought through the epigastric port out the lateral port, sewn to the skin with a silk stitch and left in the subhepatic space for postoperative drainage. Table returned to level. The epigastric port was closed with 0 Vicryl. No bleeding seen. Midclavicular port removed, no bleeding seen. Abdomen decompressed and the camera port removed. Skin incisions closed with subcuticular 4-0 Monocryl or 5-0 nylon. Sterile dressings applied. Straight cath delivered approximately 50 mL of urine. The patient was awakened from his anesthetic and taken to the recovery room in satisfactory condition. JASSON POLLACK MD DR: GODFREY/genaro JOB#: [id number] / [id number]
[2019-02-14] MEDS ORDERED: BACITRACIN 50,000 UNIT VIAL. IRR ONE (15:14)
[2019-02-14] MEDS ORDERED: 0.9 % SODIUM CHLORIDE 20 ML VIAL. IJ ONE (15:15)
[2019-02-14 15:25] VITALS: BP 136/58
[2019-02-14 15:40] VITALS: BP 138/58
--- NOTE | 2019-02-14 15:57 | PDOC ---
Provider Note Provider Note SURG HR and BP stable pt arouses easily continues to have blood from NICOLAS and now around the drain d/w him and his who is in the surgery waiting room will take back for l/s, possible open exploration KEESHA POLLACK MD Feb 14, 2019 15:57
[2019-02-14] MEDS ORDERED: ROCURONIUM 100 MG/10 ML VIAL. ONE (16:05)
[2019-02-14] MEDS ORDERED: SURGICEL HEMOSTAT 4X8 EACH. TP ONE ×2 (16:49→17:15)
[2019-02-14] MEDS ORDERED: NEOSTIGMINE METHYLSULFATE 5 MG/5 ML SYRINGE. ONE (17:26)
[2019-02-14] MEDS ORDERED: GLYCOPYRROLATE 1 MG/5 ML VIAL. ONE (17:26)
--- NOTE | 2019-02-14 18:08 | PDOC ---
BRIEF OPERATIVE NOTE Date: Feb 14, 2019 Pre-Op Diagnosis hemoperitoneum Post-Op Diagnosis same Procedure Performed l/s exploration Surgeon Myles Planishing Hammer Operator Elvira ALVARADO Anesthesia Type: General Blood Loss 100cc IV Fluid 1000cc 10 pack platelets Urine Output 700cc Specimens Obtained none Findings oozing from the liver bed Complications none KEESHA POLLACK MD Feb 14, 2019 18:08
[2019-02-14 19:00] VITALS: BP 119/68
--- NOTE | 2019-02-14 20:00 | NUR ---
patient post op care done, no active bleeding on incision site noted, ice [ack applied to NICOLAS site. will continue to monitor.
[2019-02-14] MEDS: POTASSIUM CL 20MEQ-0.45% NACL 1,000 ML IV SCH (20:12)
[2019-02-14] MEDS: ATORVASTATIN CALCIUM 40 MG TABLET. PO SCH (20:14)
[2019-02-14] MEDS: DOCUSATE SODIUM 100 MG CAPSULE. PO SCH (20:14)
--- NOTE | 2019-02-14 21:25 | OP ---
DATE OF SURGERY: 02/14/2019 PREOPERATIVE DIAGNOSIS: Hemoperitoneum. POSTOPERATIVE DIAGNOSIS: Hemoperitoneum. PROCEDURE: Laparoscopic exploration. SURGEON: Jasson Pollack MD [employer] MEMBER: JENNY Hilton ANESTHESIA: General endotracheal. ESTIMATED BLOOD LOSS: 100 mL. INTRAVENOUS FLUID: 1000 mL and 10-pack of platelets. URINE OUTPUT: 700 mL. OPERATIVE FINDINGS: Some oozing from the liver bed. DESCRIPTION OF PROCEDURE: Because of persistent NICOLAS bloody drainage and bloody drainage around the tube, the patient was brought back to the OR for laparoscopic evaluation. General endotracheal anesthetic. A 16-Latvian coude catheter placed to dependent drainage. Abdomen prepped and draped in usual sterile fashion. The epigastric incision was opened and a port placed. Pneumoperitoneum established. Camera inserted and under direct vision, the camera port midclavicular port and lateral ports were placed. Old blood was evacuated. The area was copiously irrigated with 3 liters of saline. The liver bed was inspected and found to be the source of some oozing, albeit not brisk. This was controlled with cautery, Surgicel and FloSeal. Intra-abdominal pressure decreased to 6 cm of water and no evidence of active bleeding from the bed was seen. A 19-Latvian round Garret drain was brought through the epigastric port, out of the lateral port, sewn to the skin with silk stitch and left in the subhepatic space for postoperative drainage. Epigastric and midclavicular ports were removed and no bleeding seen. Abdomen decompressed, camera removed, no bleeding seen. Skin incisions closed with interrupted 5-0 nylon suture. Sterile dressings applied. The patient was awakened from his anesthetic and taken to the recovery room in satisfactory condition. JASSON POLLACK MD DR: GODFREY/genaro JOB#: [id number] / [id number]
[2019-02-14 23:00] VITALS: BP 134/60
[2019-02-15] MEDS: HYDROmorphone 2 MG/ML VIAL IV PRN ×3 (01:03→17:46)
[2019-02-15 03:00] VITALS: BP 102/54
[2019-02-15] MEDS: POTASSIUM CL 20MEQ-0.45% NACL 1,000 ML IV SCH ×2 (05:47→16:14)
[2019-02-15 07:00] VITALS: BP 135/53
[2019-02-15] MEDS: HYDROcodone/APAP 5/325MG 1 TAB TABLET PO PRN ×2 (08:00→16:13)
[2019-02-15] MEDS: CYANOCOBALAMIN (VITAMIN B-12) 1,000 MCG TABLET. PO SCH (08:01)
[2019-02-15] MEDS: METOPROLOL SUCC 24HR ER 25 MG TAB.ER.24H. PO SCH (08:01)
[2019-02-15] MEDS: LOSARTAN POTASSIUM 50 MG TABLET. PO SCH (08:01)
[2019-02-15] MEDS: DOCUSATE SODIUM 100 MG CAPSULE. PO SCH ×2 (08:01→21:28)
[2019-02-15] MEDS: TAMSULOSIN 0.4 MG CAP.ER.24H. PO SCH (08:01)
--- NOTE | 2019-02-15 08:04 | NUR ---
Dr. Bueno in to see pt, notified of blood noted around NICOLAS drain this am.
--- NOTE | 2019-02-15 08:06 | PDOC ---
SURGICAL PROGRESS NOTE Subjective asking what's going on seems to orient with our conversation has some abdominal pain Vital Signs Vital Signs Date Time Temp Pulse Resp B/P (MAP) Pulse Ox O2 Delivery O2 Flow Rate FiO2 02/15/19 03:00 97.5 94 18 102/54 (70) 95 Nasal Cannula 2.0 97.5 I&O Intake and Output 02/15/19 07:00 Intake Total 3202 ml Output Total 1340 ml Balance 1862 ml Intake Oral 305 ml IV Total 2450 ml Blood Product IV Normal Saline Flush 447 ml Output Urine Total 750 ml Drainage Total 290 ml Estimated Blood Loss 300 ml PATIENT HAS A MIRELES: Yes General: Alert, Cooperative, No acute distress Abdomen: Soft, Other (some oozing around drain, small amount of bloody drainage in NICOLAS bulb, 40ml overnight per RN) Labs Laboratory Tests Test 02/14/19 07:36 White Blood Count 8.7 x10^3/uL (4.0-11.0) Red Blood Count 4.22 x10^6/uL (4.30-5.70) Hemoglobin 13.2 g/dL (13.0-17.5) Hematocrit 39.4 % (39.0-53.0) Mean Corpuscular Volume 93 fL (79-100) Mean Corpuscular Hemoglobin 31 pg (25-35) Mean Corpuscular Hemoglobin Concent 34 g/dL (31-37) Red Cell Distribution Width 14.5 % (11.5-14.5) Platelet Count 225 x10^3/uL (140-400) Neutrophils (%) (Auto) 59 % (31-73) Lymphocytes (%) (Auto) 22 % (24-48) Monocytes (%) (Auto) 13 % (0-9) Eosinophils (%) (Auto) 5 % (0-3) Basophils (%) (Auto) 1 % (0-3) Neutrophils # (Auto) 5.1 x10^3uL (1.8-7.7) Lymphocytes # (Auto) 1.9 x10^3/uL (1.0-4.8) Monocytes # (Auto) 1.1 x10^3/uL (0.0-1.1) Eosinophils # (Auto) 0.5 x10^3/uL (0.0-0.7) Basophils # (Auto) 0.1 x10^3/uL (0.0-0.2) Sodium Level 139 mmol/L (136-145) Potassium Level 4.1 mmol/L (3.5-5.1) Chloride Level 107 mmol/L (98-107) Carbon Dioxide Level 23 mmol/L (21-32) Anion Gap 9 (6-14) Blood Urea Nitrogen 19 mg/dL (8-26) Creatinine 1.3 mg/dL (0.7-1.3) Estimated GFR (Cockcroft-Gault) 52.7 Glucose Level 95 mg/dL (70-99) Calcium Level 8.7 mg/dL (8.5-10.1) Total Bilirubin 1.0 mg/dL (0.2-1.0) Albumin 3.4 g/dL (3.4-5.0) Assessment/Plan chronic cholecystitis with cholelithiasis POD 1 supportive care KEESHA POLLACK MD Feb 15, 2019 08:06
--- NOTE | 2019-02-15 10:48 | NUR ---
SW following for discharge planning. Discussed with RN, pt had surgery yesterday and had some bleeding after surgery. RN advised pt is a little confused today and will likely be here through the weekend. PT/OT ordered, awaiting notes/ recommendations. SW will continue to follow.
[2019-02-15 11:00] VITALS: BP 96/41
[2019-02-15] MEDS: ONDANSETRON PF 4 MG/2 ML VIAL. IV PRN (13:59)
[2019-02-15 15:00] VITALS: BP 134/46
[2019-02-15 19:00] VITALS: BP 104/49
[2019-02-15] MEDS: ATORVASTATIN CALCIUM 40 MG TABLET. PO SCH (21:28)
[2019-02-15 23:00] VITALS: BP 104/45
[2019-02-16 03:00] VITALS: BP 118/48
[2019-02-16 07:00] VITALS: BP 112/47
[2019-02-16] MEDS: METOPROLOL SUCC 24HR ER 25 MG TAB.ER.24H. PO SCH (09:00)
[2019-02-16] MEDS: LOSARTAN POTASSIUM 50 MG TABLET. PO SCH (09:00)
--- NOTE | 2019-02-16 09:45 | NUR ---
This nurse paged MD chronic manager to request additional orders, no orders received at this time, will follow up during rounds on the floor.
[2019-02-16] MEDS: POTASSIUM CL 20MEQ-0.45% NACL 1,000 ML IV SCH ×2 (10:53→19:43)
[2019-02-16] MEDS: DOCUSATE SODIUM 100 MG CAPSULE. PO SCH ×2 (10:53→20:35)
[2019-02-16] MEDS: HYDROcodone/APAP 5/325MG 1 TAB TABLET PO PRN (10:54)
[2019-02-16] MEDS: TAMSULOSIN 0.4 MG CAP.ER.24H. PO SCH (10:54)
[2019-02-16] MEDS: CYANOCOBALAMIN (VITAMIN B-12) 1,000 MCG TABLET. PO SCH (10:55)
[2019-02-16 11:00] VITALS: BP 102/42
--- NOTE | 2019-02-16 12:28 | PDOC ---
SURGICAL PROGRESS NOTE Subjective Pt without c/o, keegan reg diet Vital Signs Vital Signs Date Time Temp Pulse Resp B/P (MAP) Pulse Ox O2 Delivery O2 Flow Rate FiO2 02/16/19 12:00 94 Nasal Cannula 3.0 02/16/19 11:00 98.1 84 16 102/42 (62) 98.1 I&O Intake and Output 02/16/19 06:59 Intake Total 210 ml Output Total 1330 ml Balance -1120 ml Intake Oral 210 ml Output Urine Total 1025 ml Drainage Total 305 ml # Voids 1 PATIENT HAS A MIRELES: Yes (d/c) General: Alert, Oriented X3, Cooperative, No acute distress Abdomen: Soft, No tenderness, Other (dressing c/d/i, NICOLAS min serosang) Problem List s/p lap karie, appears stable JAYLA will recheck labs in AM MICHAEL LONG MD Feb 16, 2019 12:28
[2019-02-16 15:00] VITALS: BP 119/66
[2019-02-16 19:00] VITALS: BP 121/65
[2019-02-16] MEDS: ATORVASTATIN CALCIUM 40 MG TABLET. PO SCH (20:35)
[2019-02-16 23:00] VITALS: BP 104/55
[2019-02-17] VITALS (13 sets, daily range): BP systolic 105–138; BP diastolic 38–66
[2019-02-17] MEDS: HYDROcodone/APAP 5/325MG 1 TAB TABLET PO PRN ×2 (03:22→08:35)
[2019-02-17] MEDS: POTASSIUM CL 20MEQ-0.45% NACL 1,000 ML IV SCH (06:02)
[2019-02-17 08:18] LABS: BASO % 0 % (0-3); EOS % 0 % (0-3); HEMATOCRIT 25.3 % (39.0-53.0); LYMPH # 0.9 x10^3/uL (1.0-4.8); LYMPH % 5 % (24-48); MEAN CORPUSCULAR HEMOGLOBIN 30 pg (25-35); MEAN CORPUSCULAR HGB CONC 33 g/dL (31-37); MEAN CORPUSCULAR VOLUME 93 fL (79-100); MONO % 5 % (0-9); NEUT # 16.6 x10^3uL (1.8-7.7); NEUT % 90 % (31-73); PLATELET COUNT 168 x10^3/uL (140-400); RED BLOOD COUNT 2.72 x10^6/uL (4.30-5.70); RED CELL DISTRIBUTION WIDTH 14.2 % (11.5-14.5); WHITE BLOOD COUNT 18.4 x10^3/uL (4.0-11.0)
[2019-02-17 08:24] LABS: HEMOGLOBIN 8.2 g/dL (13.0-17.5)
[2019-02-17 08:33] LABS: ALBUMIN 1.9 g/dL (3.4-5.0); ALBUMIN/GLOBULIN RATIO 0.6 (1.0-1.7); CALCIUM 8.2 mg/dL (8.5-10.1); CREATININE 1.5 mg/dL (0.7-1.3); GFR 44.7; POTASSIUM 4.8 mmol/L (3.5-5.1); TOTAL BILIRUBIN 0.9 mg/dL (0.2-1.0); TOTAL PROTEIN 4.9 g/dL (6.4-8.2)
[2019-02-17] MEDS: CYANOCOBALAMIN (VITAMIN B-12) 1,000 MCG TABLET. PO SCH (08:33)
[2019-02-17] MEDS: TAMSULOSIN 0.4 MG CAP.ER.24H. PO SCH (08:33)
[2019-02-17] MEDS: DOCUSATE SODIUM 100 MG CAPSULE. PO SCH ×2 (08:33→21:38)
[2019-02-17] MEDS: METOPROLOL SUCC 24HR ER 25 MG TAB.ER.24H. PO SCH (08:34)
--- NOTE | 2019-02-17 10:22 | NUR ---
This nurse paged MD for orders, awaiting orders, and will continue to monitor this patient.
[2019-02-17 11:24] LABS: % BANDS 10 % (0-9); % LYMPHS 3 % (24-48); % MONOS 6 % (0-10); % SEGS 81 % (35-66); PLT ESTIMATE ADEQUATE (ADEQUATE)
--- NOTE | 2019-02-17 13:09 | PDOC2 ---
CONSULT Date of Consult Date of Consult DATE: 02/17/19 TIME: 13:02 Reason for Consult Reason for Consult: Medical management, fulfill sepsis criteria Referring Physician Referring Physician: Dr. Stevens Identification/Chief Complaint Chief Complaint Sepsis criteria, high heart rate, high RR Source Source: Caregiver, Chart review, Patient History of Present Illness Reason for Visit: 83-year-old male who came in for flulike symptoms. He came from home with the . Was treated. But course remarkable for developing either cholelithiasis or cholecystitis and underwent laparoscopic cholecystectomy on 02/14/19 bu postop course was remarkable for bleeding around the NICOLAS drain and around the postop site that they had to redo him that same day but no exploratory laparoscopy done/needed. Today 02/17/19. Tachypneic, tachycardic, no increase in pain. Patient denies of anything but may be a short run of A. fib RVR noted but now sinus tachycardia. Transferred to ICU henceforth I'm seeing in the ICU, consult placed to IM and pulmonary. Will undergo chest x- ray 2 views. He is on GI soft diet but with minimal intake. Potassium was low so was on K containing IVF but now is up to 4.8. PT OT has also been ordered. Metoprolol, also resumed. But aspirin Plavix multivitamins not yet as these were on hold prior to surgery. 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 Endocrine: No pertinent hx Past Surgical History Past Surgical History: Cholecystectomy Family History Family History: Hypertension Social History ALCOHOL: none Drugs: None Lives: with Family Domestic Violence: Neg Current Medications Current Medications Current Medications Ondansetron HCl (Zofran) 4 mg PRN Q6HRS PRN IV NAUSEA/VOMITING; Start 02/14/19 at 07:00; Stop 02/14/19 at 20:00; Status DC Fentanyl Citrate (Fentanyl 2ml Vial) 25 mcg PRN Q5MIN PRN IV MILD PAIN Last administered on 02/14/19at 14:28; Start 02/14/19 at 07:00; Stop 02/14/19 at 20 :00; Status DC Fentanyl Citrate (Fentanyl 2ml Vial) 50 mcg PRN Q5MIN PRN IV MODERATE TO SEVERE PAIN; Start 02/14/19 at 07:00; Stop 02/14/19 at 20:00; Status DC Morphine Sulfate (Morphine Sulfate) 1 mg PRN Q10MIN PRN IV SEVERE PAIN; Start 02/14/19 at 07:00; Stop 02/14/19 at 20:00; Status DC Ringer's Solution 1,000 ml @ 30 mls/hr Q24H IV Last administered on 02/14/19at 07:52; Start 02/14/19 at 07:00; Stop 02/14/19 at 18:59; Status DC Lidocaine HCl (Xylocaine-Mpf 1% 2ml Vial) 2 ml PRN 1X PRN ID PRIOR TO IV START; Start 02/14/19 at 07:00; Stop 02/14/19 at 20:00; Status DC Hydromorphone HCl (Dilaudid) 0.5 mg PRN Q10MIN PRN IV SEV PAIN, Second choice; Start 02/14/19 at 07:00; Stop 02/14/19 at 20:00; Status DC Prochlorperazine Edisylate (Compazine) 5 mg PACU PRN PRN IV NAUSEA, MRX1; Start 02/14/19 at 07:00; Stop 02/14/19 at 20:00; Status DC Cefazolin Sodium/ Dextrose 50 ml @ 100 mls/hr 1X PREOP PRN IV PRIOR TO PROCEDURE Last administered on 02/14/19at 11:21; Start 02/14/19 at 06:00; Stop 02/14/19 at 18:00; Status DC Propofol 20 ml @ As Directed STK-MED ONCE IV ; Start 02/14/19 at 08:17; Stop 02/14/19 at 08:18; Status DC Lidocaine HCl (Lidocaine Pf 2% Vial) 5 ml STK-MED ONCE .ROUTE ; Start 02/14/19 at 08:17; Stop 02/14/19 at 08:18; Status DC Ondansetron HCl (Zofran) 4 mg STK-MED ONCE .ROUTE ; Start 02/14/19 at 08:17; Stop 02/14/19 at 08:18; Status DC Dexamethasone Sodium Phosphate (Decadron) 4 mg STK-MED ONCE .ROUTE ; Start 02/14/19 at 08:17; Stop 02/14/19 at 08:18; Status DC Sevoflurane (Ultane) 60 ml STK-MED ONCE IH ; Start 02/14/19 at 08:17; Stop 02/14/19 at 08:18; Status DC Rocuronium Brice (Zemuron) 50 mg STK-MED ONCE .ROUTE ; Start 02/14/19 at 08:17; Stop 02/14/19 at 08:18; Status DC Fentanyl Citrate (Fentanyl 2ml Vial) 100 mcg STK-MED ONCE .ROUTE ; Start 02/14/19 at 08:39; Stop 02/14/19 at 08:40; Status DC Bupivacaine HCl/ Epinephrine Bitart (Sensorcain-Mpf Epi 0.5%-1:172025) 30 ml STK-MED ONCE .ROUTE Last administered on 02/14/19 11:48; Start 02/14/19 at 10:01; Stop 02/14/19 at 11:02; Status DC Glucagon (Glucagen) 1 mg STK-MED ONCE .ROUTE ; Start 02/14/19 at 10:01; Stop 02/14/19 at 11:02; Status DC Iohexol (Omnipaque 300 Mg/ml) 100 ml STK-MED ONCE .ROUTE Last administered on 02/14/19at 11:48; Start 02/14/19 at 10:01; Stop 02/14/19 at 11:02; Status DC Cellulose (Surgicel Hemostat 4x8) 1 each STK-MED ONCE .ROUTE Last administered on 02/14/19at 13:12; Start 02/14/19 at 10:01; Stop 02/14/19 at 11:02; Status DC Cellulose (Surgicel Hemostat 4x8) 1 each STK-MED ONCE .ROUTE Last administered on 02/14/19at 13:31; Start 02/14/19 at 11:19; Stop 02/14/19 at 12:19; Status DC Famotidine (Pepcid Vial) 20 mg STK-MED ONCE .ROUTE ; Start 02/14/19 at 13:14; Stop 02/14/19 at 13:15; Status DC Diphenhydramine HCl (Benadryl) 50 mg STK-MED ONCE .ROUTE ; Start 02/14/19 at 13:14; Stop 02/14/19 at 13:15; Status DC Rocuronium Brice (Zemuron) 50 mg STK-MED ONCE .ROUTE ; Start 02/14/19 at 13:14; Stop 02/14/19 at 13:15; Status DC Fentanyl Citrate (Fentanyl 2ml Vial) 100 mcg STK-MED ONCE .ROUTE ; Start 02/14/19 at 13:15; Stop 02/14/19 at 13:16; Status DC Cellulose (Surgicel Hemostat 4x8) 1 each STK-MED ONCE .ROUTE ; Start 02/14/19 at 12:33; Stop 02/14/19 at 13:33; Status DC Diphenhydramine HCl (Benadryl) 25 mg PRN Q6HRS PRN PO ITCHING; Start 02/14/19 at 14:00 Sodium Chloride (Normal Saline Flush) 3 ml QSHIFT PRN IV AFTER MEDS AND BLOOD DRAWS; Start 02/14/19 at 14:00 Potassium Chloride/Sodium Chloride 1,000 ml @ 80 mls/hr [id number] IV Last administered on 02/17/19at 06:02; Start 02/14/19 at 15:00; Stop 02/17/19 at 12:54; Status DC Dextrose (Dextrose 50%-Water Syringe) 12.5 gm PRN Q15MIN PRN IV SEE COMMENTS; Start 02/14/19 at 14:00 Acetaminophen/ Hydrocodone Bitart (Lortab 5/325) 1 tab PRN Q4HRS PRN PO MILD PAIN Last administered on 02/17/19at 08:35; Start 02/14/19 at 14:00 Acetaminophen/ Hydrocodone Bitart (Lortab 5/325) 2 tab PRN Q4HRS PRN PO MODERATE PAIN, SEVERE PAIN Last administered on 02/17/19at 03:22; Start 02/14/19 at 14:00 Hydromorphone HCl (Dilaudid) 1 mg PRN Q4HRS PRN IV PAIN Last administered on 02/15/19 17:46; Start 02/14/19 at 14:00 Docusate Sodium (Colace) 100 mg BID PO Last administered on 02/17/19 08:33; Start 02/14/19 at 21:00 Ondansetron HCl (Zofran) 4 mg PRN Q6HRS PRN IV NAUESA, 1ST CHOICE Last administered on 02/15/19 13:59; Start 02/14/19 at 14:00 Atorvastatin Calcium (Lipitor) 40 mg QHS PO Last administered on 02/16/19 20:35; Start 02/14/19 at 21:00 Cyanocobalamin (Vitamin B-12) 1,000 mcg DAILY PO Last administered on 02/17/19 08:33; Start 02/15/19 at 09:00 Metoprolol Succinate (Toprol Xl) 25 mg DAILY PO Last administered on 02/17/19 08:34; Start 02/15/19 at 09:00 Tamsulosin HCl (Flomax) 0.4 mg DAILY PO Last administered on 02/17/19 08:33; Start 02/15/19 at 09:00 Losartan Potassium (Cozaar) 100 mg DAILY PO Last administered on 02/15/19 08:01; Start 02/15/19 at 09:00 Fentanyl Citrate (Fentanyl 2ml Vial) 100 mcg STK-MED ONCE .ROUTE ; Start 02/14/19 at 14:26; Stop 02/14/19 at 14:27; Status DC Bupivacaine HCl/ Epinephrine Bitart (Sensorcain-Mpf Epi 0.5%-1:113754) 30 ml STK-MED ONCE .ROUTE ; Start 02/14/19 at 15:13; Stop 02/14/19 at 16:14; Status DC Bacitracin (Bacitracin) 50,000 unit STK-MED ONCE IRR Last administered on 02/14/19at 16:49; Start 02/14/19 at 15:14; Stop 02/14/19 at 16:15; Status DC Sodium Chloride (SODIUM CHLORIDE 20ml) 20 ml STK-MED ONCE IJ ; Start 02/14/19 at 15:15; Stop 02/14/19 at 16:15; Status DC Cellulose (Surgicel Hemostat 4x8) 3 each STK-MED ONCE TP Last administered on 02/14/19at 16:49; Start 02/14/19 at 16:49; Stop 02/14/19 at 16:55; Status DC Cellulose (Surgicel Hemostat 4x8) 4 each 1X ONCE TP ; Start 02/14/19 at 17:15; Stop 02/14/19 at 17:16; Status DC Cefazolin Sodium/ Dextrose (Ancef 2gm Premix) 2 gm STK-MED ONCE IV ; Start 02/14/19 at 11:00; Stop 02/15/19 at 13:02; Status DC Piperacillin Sod/ Tazobactam Sod 3.375 gm/Sodium Chloride 50 ml @ 100 mls/hr Q6HRS IV ; Start 02/17/19 at 12:00 Sodium Chloride 1,000 ml @ 100 mls/hr Q10H IV ; Start 02/17/19 at 13:00 Active Scripts Active Atorvastatin Calcium 40 Mg Tablet 40 Mg PO QHS 30 Days Reported Flomax (Tamsulosin Hcl) 0.4 Mg Cap.er.24h 0.4 Mg PO DAILY Clopidogrel (Clopidogrel Bisulfate) 75 Mg Tablet 75 Mg PO DAILY Aspirin 81 Mg Tab.chew 1 Tab PO DAILY Vitamin B-12 (Cyanocobalamin (Vitamin B-12)) 1,000 Mcg Tablet 1 Tab PO DAILY Metoprolol Succinate ( Xl ) (Metoprolol Succinate) 25 Mg Tab.er.24h 1 Tab PO DAILY Losartan Potassium 100 Mg Tablet 100 Mg PO DAILY Multivitamins (Multivitamin) 1 Each Tablet 1 Tab PO DAILY Vitamin D (Cholecalciferol (Vitamin D3)) 2,000 Unit Capsule 1 Cap PO DAILY Allergies Allergies: Coded Allergies: iodine (Verified Allergy, Intermediate, Rash, 02/14/19) iron (Verified Allergy, Intermediate, Rash, 02/14/19) INJECTABLE iron dextran complex (Verified Allergy, Intermediate, Rash, 02/14/19) ROS Review of System Some postoperative soreness otherwise rest of ROS 14 point negative Physical Exam General: Alert, Oriented X3, Cooperative, No acute distress HEENT: Atraumatic, PERRLA, Mucous membr. moist/pink Lungs: Clear to auscultation Heart: Regular rate, Normal S1, Normal S2, Other (sinus tachycardia 90s) Abdomen: Normal bowel sounds, Soft, Other (positive NICOLAS drain right side, laparoscopic dressings dry) Extremities: No clubbing, No cyanosis Skin: No rashes, No breakdown Neuro: Normal gait, Normal speech, Normal tone, Sensation intact, Reflexes 2+ Psych/Mental Status: Mental status NL, Mood NL Vitals VITALS Vital Signs Date Time Temp Pulse Resp B/P (MAP) Pulse Ox O2 Delivery O2 Flow Rate FiO2 02/17/19 11:30 98.1 95 16 135/57 (83) 93 Nasal Cannula 3.0 98.1 Labs Labs Laboratory Tests Test 02/17/19 06:50 White Blood Count 18.4 x10^3/uL (4.0-11.0) Red Blood Count 2.72 x10^6/uL (4.30-5.70) Hemoglobin 8.2 g/dL (13.0-17.5) Hematocrit 25.3 % (39.0-53.0) Mean Corpuscular Volume 93 fL (79-100) Mean Corpuscular Hemoglobin 30 pg (25-35) Mean Corpuscular Hemoglobin Concent 33 g/dL (31-37) Red Cell Distribution Width 14.2 % (11.5-14.5) Platelet Count 168 x10^3/uL (140-400) Neutrophils (%) (Auto) 90 % (31-73) Lymphocytes (%) (Auto) 5 % (24-48) Monocytes (%) (Auto) 5 % (0-9) Eosinophils (%) (Auto) 0 % (0-3) Basophils (%) (Auto) 0 % (0-3) Neutrophils # (Auto) 16.6 x10^3uL (1.8-7.7) Lymphocytes # (Auto) 0.9 x10^3/uL (1.0-4.8) Monocytes # (Auto) 1.0 x10^3/uL (0.0-1.1) Eosinophils # (Auto) 0.0 x10^3/uL (0.0-0.7) Basophils # (Auto) 0.0 x10^3/uL (0.0-0.2) Segmented Neutrophils % 81 % (35-66) Band Neutrophils % 10 % (0-9) Lymphocytes % 3 % (24-48) Monocytes % 6 % (0-10) Platelet Estimate Adequate (ADEQUATE) Sodium Level 137 mmol/L (136-145) Potassium Level 4.8 mmol/L (3.5-5.1) Chloride Level 105 mmol/L (98-107) Carbon Dioxide Level 24 mmol/L (21-32) Anion Gap 8 (6-14) Blood Urea Nitrogen 32 mg/dL (8-26) Creatinine 1.5 mg/dL (0.7-1.3) Estimated GFR (Cockcroft-Gault) 44.7 BUN/Creatinine Ratio 21 (6-20) Glucose Level 115 mg/dL (70-99) Calcium Level 8.2 mg/dL (8.5-10.1) Total Bilirubin 0.9 mg/dL (0.2-1.0) Aspartate Amino Transf (AST/SGOT) 24 U/L (15-37) Alanine Aminotransferase (ALT/SGPT) 28 U/L (16-63) Alkaline Phosphatase 62 U/L (46-116) Total Protein 4.9 g/dL (6.4-8.2) Albumin 1.9 g/dL (3.4-5.0) Albumin/Globulin Ratio 0.6 (1.0-1.7) Laboratory Tests Test 02/17/19 06:50 White Blood Count 18.4 x10^3/uL (4.0-11.0) Red Blood Count 2.72 x10^6/uL (4.30-5.70) Hemoglobin 8.2 g/dL (13.0-17.5) Hematocrit 25.3 % (39.0-53.0) Mean Corpuscular Volume 93 fL (79-100) Mean Corpuscular Hemoglobin 30 pg (25-35) Mean Corpuscular Hemoglobin Concent 33 g/dL (31-37) Red Cell Distribution Width 14.2 % (11.5-14.5) Platelet Count 168 x10^3/uL (140-400) Neutrophils (%) (Auto) 90 % (31-73) Lymphocytes (%) (Auto) 5 % (24-48) Monocytes (%) (Auto) 5 % (0-9) Eosinophils (%) (Auto) 0 % (0-3) Basophils (%) (Auto) 0 % (0-3) Neutrophils # (Auto) 16.6 x10^3uL (1.8-7.7) Lymphocytes # (Auto) 0.9 x10^3/uL (1.0-4.8) Monocytes # (Auto) 1.0 x10^3/uL (0.0-1.1) Eosinophils # (Auto) 0.0 x10^3/uL (0.0-0.7) Basophils # (Auto) 0.0 x10^3/uL (0.0-0.2) Segmented Neutrophils % 81 % (35-66) Band Neutrophils % 10 % (0-9) Lymphocytes % 3 % (24-48) Monocytes % 6 % (0-10) Platelet Estimate Adequate (ADEQUATE) Sodium Level 137 mmol/L (136-145) Potassium Level 4.8 mmol/L (3.5-5.1) Chloride Level 105 mmol/L (98-107) Carbon Dioxide Level 24 mmol/L (21-32) Anion Gap 8 (6-14) Blood Urea Nitrogen 32 mg/dL (8-26) Creatinine 1.5 mg/dL (0.7-1.3) Estimated GFR (Cockcroft-Gault) 44.7 BUN/Creatinine Ratio 21 (6-20) Glucose Level 115 mg/dL (70-99) Calcium Level 8.2 mg/dL (8.5-10.1) Total Bilirubin 0.9 mg/dL (0.2-1.0) Aspartate Amino Transf (AST/SGOT) 24 U/L (15-37) Alanine Aminotransferase (ALT/SGPT) 28 U/L (16-63) Alkaline Phosphatase 62 U/L (46-116) Total Protein 4.9 g/dL (6.4-8.2) Albumin 1.9 g/dL (3.4-5.0) Albumin/Globulin Ratio 0.6 (1.0-1.7) Assessment/Plan Assessment/Plan Status post lap cholecystectomy, 02/14/19 Postop status cyst/fulfills tachycardia tachypnea AK I VMN-creatinine 1.5 today from normal Leukocytosis, WBC 18 today from normal, started on empiric Zosyn History CVA, hypertension, dyslipidemia and GERD on medication Transient a fib on transfer Plan ICU, IV fluids 100 mL for now stop K containing IVF Recheck labs tomorrow Draw lactate blood culture out of sepsis protocol Chest x-ray 2 views PT OT when more able GI soft diet already on Might need nutrition consult as poor intake still but sometimes expected postop in this elderly Full code Discussed with at bedside in [employer]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 fib that was seen initiallly upon transfer I have already resumed beta angie and Plavix. If this becomes up pressing issue then can consult cardiology - echo if none recently I did resume plavix if ok by Thx for consulting, will follow along CONNER FINE MD Feb 17, 2019 13:09
--- NOTE | 2019-02-17 13:13 | RAD ---
CHEST PA LATERAL History: Increasing oxygen requirement Comparison: December 28, 2018 Findings: 2 views of the chest are submitted. There are now small dependent pleural effusions bilaterally, adjacent mild airspace opacity greater of the medial right lung base. There is no pneumothorax. Heart size is stable. There is again tortuous thoracic aorta. Impression: 1. There are new small bilateral pleural effusions with adjacent bibasilar airspace opacity greater on the right. Electronically signed by: Jack Livingston MD (02/17/2019 1:11 PM) [facility]
[2019-02-17] MEDS: PIPERACILLIN/TAZOBACTAM 3.375 GM in IV NORMAL SALINE 50ML 50 ML IV SCH ×3 (13:21→23:29)
[2019-02-17] MEDS: LOSARTAN POTASSIUM 50 MG TABLET. PO SCH (13:22)
[2019-02-17] MEDS: IV NORMAL SALINE 1000ML BAG 1,000 ML IV SCH ×2 (13:24→20:25)
--- NOTE | 2019-02-17 14:24 | PDOC ---
PULMONARY PROGRESS NOTES Vitals Vital Signs Date Time Temp Pulse Resp B/P (MAP) Pulse Ox O2 Delivery O2 Flow Rate FiO2 02/17/19 13:22 90 119/40 02/17/19 11:30 98.1 16 93 Nasal Cannula 3.0 98.1 Lungs: Clear Cardiovascular: S1, S2 Labs Laboratory Tests Test 02/17/19 06:50 White Blood Count 18.4 x10^3/uL (4.0-11.0) Red Blood Count 2.72 x10^6/uL (4.30-5.70) Hemoglobin 8.2 g/dL (13.0-17.5) Hematocrit 25.3 % (39.0-53.0) Mean Corpuscular Volume 93 fL (79-100) Mean Corpuscular Hemoglobin 30 pg (25-35) Mean Corpuscular Hemoglobin Concent 33 g/dL (31-37) Red Cell Distribution Width 14.2 % (11.5-14.5) Platelet Count 168 x10^3/uL (140-400) Neutrophils (%) (Auto) 90 % (31-73) Lymphocytes (%) (Auto) 5 % (24-48) Monocytes (%) (Auto) 5 % (0-9) Eosinophils (%) (Auto) 0 % (0-3) Basophils (%) (Auto) 0 % (0-3) Neutrophils # (Auto) 16.6 x10^3uL (1.8-7.7) Lymphocytes # (Auto) 0.9 x10^3/uL (1.0-4.8) Monocytes # (Auto) 1.0 x10^3/uL (0.0-1.1) Eosinophils # (Auto) 0.0 x10^3/uL (0.0-0.7) Basophils # (Auto) 0.0 x10^3/uL (0.0-0.2) Segmented Neutrophils % 81 % (35-66) Band Neutrophils % 10 % (0-9) Lymphocytes % 3 % (24-48) Monocytes % 6 % (0-10) Platelet Estimate Adequate (ADEQUATE) Sodium Level 137 mmol/L (136-145) Potassium Level 4.8 mmol/L (3.5-5.1) Chloride Level 105 mmol/L (98-107) Carbon Dioxide Level 24 mmol/L (21-32) Anion Gap 8 (6-14) Blood Urea Nitrogen 32 mg/dL (8-26) Creatinine 1.5 mg/dL (0.7-1.3) Estimated GFR (Cockcroft-Gault) 44.7 BUN/Creatinine Ratio 21 (6-20) Glucose Level 115 mg/dL (70-99) Calcium Level 8.2 mg/dL (8.5-10.1) Total Bilirubin 0.9 mg/dL (0.2-1.0) Aspartate Amino Transf (AST/SGOT) 24 U/L (15-37) Alanine Aminotransferase (ALT/SGPT) 28 U/L (16-63) Alkaline Phosphatase 62 U/L (46-116) Total Protein 4.9 g/dL (6.4-8.2) Albumin 1.9 g/dL (3.4-5.0) Albumin/Globulin Ratio 0.6 (1.0-1.7) Laboratory Tests Test 02/17/19 06:50 White Blood Count 18.4 x10^3/uL (4.0-11.0) Red Blood Count 2.72 x10^6/uL (4.30-5.70) Hemoglobin 8.2 g/dL (13.0-17.5) Hematocrit 25.3 % (39.0-53.0) Mean Corpuscular Volume 93 fL (79-100) Mean Corpuscular Hemoglobin 30 pg (25-35) Mean Corpuscular Hemoglobin Concent 33 g/dL (31-37) Red Cell Distribution Width 14.2 % (11.5-14.5) Platelet Count 168 x10^3/uL (140-400) Neutrophils (%) (Auto) 90 % (31-73) Lymphocytes (%) (Auto) 5 % (24-48) Monocytes (%) (Auto) 5 % (0-9) Eosinophils (%) (Auto) 0 % (0-3) Basophils (%) (Auto) 0 % (0-3) Neutrophils # (Auto) 16.6 x10^3uL (1.8-7.7) Lymphocytes # (Auto) 0.9 x10^3/uL (1.0-4.8) Monocytes # (Auto) 1.0 x10^3/uL (0.0-1.1) Eosinophils # (Auto) 0.0 x10^3/uL (0.0-0.7) Basophils # (Auto) 0.0 x10^3/uL (0.0-0.2) Segmented Neutrophils % 81 % (35-66) Band Neutrophils % 10 % (0-9) Lymphocytes % 3 % (24-48) Monocytes % 6 % (0-10) Platelet Estimate Adequate (ADEQUATE) Sodium Level 137 mmol/L (136-145) Potassium Level 4.8 mmol/L (3.5-5.1) Chloride Level 105 mmol/L (98-107) Carbon Dioxide Level 24 mmol/L (21-32) Anion Gap 8 (6-14) Blood Urea Nitrogen 32 mg/dL (8-26) Creatinine 1.5 mg/dL (0.7-1.3) Estimated GFR (Cockcroft-Gault) 44.7 BUN/Creatinine Ratio 21 (6-20) Glucose Level 115 mg/dL (70-99) Calcium Level 8.2 mg/dL (8.5-10.1) Total Bilirubin 0.9 mg/dL (0.2-1.0) Aspartate Amino Transf (AST/SGOT) 24 U/L (15-37) Alanine Aminotransferase (ALT/SGPT) 28 U/L (16-63) Alkaline Phosphatase 62 U/L (46-116) Total Protein 4.9 g/dL (6.4-8.2) Albumin 1.9 g/dL (3.4-5.0) Albumin/Globulin Ratio 0.6 (1.0-1.7) Medications Active Scripts Medications Dose Route/Sig Max Daily Dose Days Date Category Flomax (Tamsulosin Hcl) 0.4 Mg Cap.er.24h 0.4 Mg PO DAILY 02/13/19 Reported Clopidogrel (Clopidogrel Bisulfate) 75 Mg Tablet 75 Mg PO DAILY 02/13/19 Reported Aspirin 81 Mg Tab.chew 1 Tab PO DAILY 02/13/19 Reported Vitamin B-12 (Cyanocobalamin (Vitamin B-12)) 1,000 Mcg Tablet 1 Tab PO DAILY 12/25/18 Reported Metoprolol Succinate ( Xl ) (Metoprolol Succinate) 25 Mg Tab.er.24h 1 Tab PO DAILY 12/25/18 Reported Losartan Potassium 100 Mg Tablet 100 Mg PO DAILY 12/25/18 Reported Atorvastatin Calcium 40 Mg Tablet 40 Mg PO QHS 30 06/27/17 Rx Multivitamins (Multivitamin) 1 Each Tablet 1 Tab PO DAILY 08/12/15 Reported Vitamin D (Cholecalciferol (Vitamin D3)) 2,000 Unit Capsule 1 Cap PO DAILY 08/12/15 Reported Impression . NOTE DICTATED CXR NOTED ATELECTASIS NO NEED FOR THORACENTESIS EFFUSION ARE SMALL SPOKE WITH FAMILY UMA NARANJO MD Feb 17, 2019 14:24
--- NOTE | 2019-02-17 15:11 | PDOC ---
SURGICAL PROGRESS NOTE Subjective Pt seen on the floor earlier today, noted to have some increased oxygen requirements. Min Po intake Vital Signs Vital Signs Date Time Temp Pulse Resp B/P (MAP) Pulse Ox O2 Delivery O2 Flow Rate FiO2 02/17/19 13:22 90 119/40 02/17/19 11:30 98.1 16 93 Nasal Cannula 3.0 98.1 I&O Intake and Output 02/17/19 07:00 Intake Total 150 ml Output Total 895 ml Balance -745 ml Intake Oral 150 ml Output Urine Total 645 ml Drainage Total 250 ml PATIENT HAS A MIRELES: Yes (accurate i and os) General: Alert, Oriented X3, Cooperative, No acute distress Abdomen: Soft, No tenderness, Other (NICOLAS serosang) Labs Laboratory Tests Test 02/17/19 06:50 White Blood Count 18.4 x10^3/uL (4.0-11.0) Red Blood Count 2.72 x10^6/uL (4.30-5.70) Hemoglobin 8.2 g/dL (13.0-17.5) Hematocrit 25.3 % (39.0-53.0) Mean Corpuscular Volume 93 fL (79-100) Mean Corpuscular Hemoglobin 30 pg (25-35) Mean Corpuscular Hemoglobin Concent 33 g/dL (31-37) Red Cell Distribution Width 14.2 % (11.5-14.5) Platelet Count 168 x10^3/uL (140-400) Neutrophils (%) (Auto) 90 % (31-73) Lymphocytes (%) (Auto) 5 % (24-48) Monocytes (%) (Auto) 5 % (0-9) Eosinophils (%) (Auto) 0 % (0-3) Basophils (%) (Auto) 0 % (0-3) Neutrophils # (Auto) 16.6 x10^3uL (1.8-7.7) Lymphocytes # (Auto) 0.9 x10^3/uL (1.0-4.8) Monocytes # (Auto) 1.0 x10^3/uL (0.0-1.1) Eosinophils # (Auto) 0.0 x10^3/uL (0.0-0.7) Basophils # (Auto) 0.0 x10^3/uL (0.0-0.2) Segmented Neutrophils % 81 % (35-66) Band Neutrophils % 10 % (0-9) Lymphocytes % 3 % (24-48) Monocytes % 6 % (0-10) Platelet Estimate Adequate (ADEQUATE) Sodium Level 137 mmol/L (136-145) Potassium Level 4.8 mmol/L (3.5-5.1) Chloride Level 105 mmol/L (98-107) Carbon Dioxide Level 24 mmol/L (21-32) Anion Gap 8 (6-14) Blood Urea Nitrogen 32 mg/dL (8-26) Creatinine 1.5 mg/dL (0.7-1.3) Estimated GFR (Cockcroft-Gault) 44.7 BUN/Creatinine Ratio 21 (6-20) Glucose Level 115 mg/dL (70-99) Calcium Level 8.2 mg/dL (8.5-10.1) Total Bilirubin 0.9 mg/dL (0.2-1.0) Aspartate Amino Transf (AST/SGOT) 24 U/L (15-37) Alanine Aminotransferase (ALT/SGPT) 28 U/L (16-63) Alkaline Phosphatase 62 U/L (46-116) Total Protein 4.9 g/dL (6.4-8.2) Albumin 1.9 g/dL (3.4-5.0) Albumin/Globulin Ratio 0.6 (1.0-1.7) Laboratory Tests Test 02/17/19 06:50 White Blood Count 18.4 x10^3/uL (4.0-11.0) Red Blood Count 2.72 x10^6/uL (4.30-5.70) Hemoglobin 8.2 g/dL (13.0-17.5) Hematocrit 25.3 % (39.0-53.0) Mean Corpuscular Volume 93 fL (79-100) Mean Corpuscular Hemoglobin 30 pg (25-35) Mean Corpuscular Hemoglobin Concent 33 g/dL (31-37) Red Cell Distribution Width 14.2 % (11.5-14.5) Platelet Count 168 x10^3/uL (140-400) Neutrophils (%) (Auto) 90 % (31-73) Lymphocytes (%) (Auto) 5 % (24-48) Monocytes (%) (Auto) 5 % (0-9) Eosinophils (%) (Auto) 0 % (0-3) Basophils (%) (Auto) 0 % (0-3) Neutrophils # (Auto) 16.6 x10^3uL (1.8-7.7) Lymphocytes # (Auto) 0.9 x10^3/uL (1.0-4.8) Monocytes # (Auto) 1.0 x10^3/uL (0.0-1.1) Eosinophils # (Auto) 0.0 x10^3/uL (0.0-0.7) Basophils # (Auto) 0.0 x10^3/uL (0.0-0.2) Segmented Neutrophils % 81 % (35-66) Band Neutrophils % 10 % (0-9) Lymphocytes % 3 % (24-48) Monocytes % 6 % (0-10) Platelet Estimate Adequate (ADEQUATE) Sodium Level 137 mmol/L (136-145) Potassium Level 4.8 mmol/L (3.5-5.1) Chloride Level 105 mmol/L (98-107) Carbon Dioxide Level 24 mmol/L (21-32) Anion Gap 8 (6-14) Blood Urea Nitrogen 32 mg/dL (8-26) Creatinine 1.5 mg/dL (0.7-1.3) Estimated GFR (Cockcroft-Gault) 44.7 BUN/Creatinine Ratio 21 (6-20) Glucose Level 115 mg/dL (70-99) Calcium Level 8.2 mg/dL (8.5-10.1) Total Bilirubin 0.9 mg/dL (0.2-1.0) Aspartate Amino Transf (AST/SGOT) 24 U/L (15-37) Alanine Aminotransferase (ALT/SGPT) 28 U/L (16-63) Alkaline Phosphatase 62 U/L (46-116) Total Protein 4.9 g/dL (6.4-8.2) Albumin 1.9 g/dL (3.4-5.0) Albumin/Globulin Ratio 0.6 (1.0-1.7) I have reviewed the following CXR with some atelectasis Problem List s/p lap karie transfer to ICU given above appreciate consultation with hospitalist and pulm GERTRUDIST d/w pt and pt's family MICHAEL LONG MD Feb 17, 2019 15:11
[2019-02-17] MEDS: CLOPIDOGREL BISULFATE 75 MG TABLET PO SCH (15:19)
[2019-02-17] MEDS: CALCIUM CARBONATE 500 MG TAB.CHEW PO PRN (15:19)
[2019-02-17] MEDS: ONDANSETRON PF 4 MG/2 ML VIAL. IV PRN ×2 (15:19→23:57)
[2019-02-17] MEDS: MULTIVITAMIN with MINERAL TABLET. PO SCH (15:19)
[2019-02-17] MEDS: CHOLECALCIFEROL (VITAMIN D3) 1,000 UNIT TABLET PO SCH (15:19)
[2019-02-17 15:36] LABS: CALCIUM 8.8 mg/dL (8.5-10.1); MAGNESIUM 2.3 mg/dL (1.8-2.4)
[2019-02-17 18:39] LABS: BILIRUBIN,URINE SMALL (NEG); CLARITY,URINE CLOUDY; COLOR,URINE AMBER; NITRITE,URINE NEGATIVE (NEG); PH,URINE 5.5; PROTEIN,URINE 100 mg/dL (NEG-TRACE)
[2019-02-17 18:49] LABS: AMORPHOUS SEDIMENT,UR PRESENT /HPF; BACTERIA,URINE 0 /HPF (0-FEW); SQUAMOUS EPITHELIAL CELL,UR FEW /LPF
[2019-02-17] MEDS: ATORVASTATIN CALCIUM 40 MG TABLET. PO SCH (21:38)
[2019-02-17] MEDS ORDERED: ACETAMINOPHEN 325 MG TABLET. PO PRN (23:45)
[2019-02-18] VITALS (32 sets, daily range): BP systolic 81–149; BP diastolic 41–77
[2019-02-18] MEDS ORDERED: IV NORMAL SALINE 500ML BAG 500 ML IV ONE
[2019-02-18] MEDS ORDERED: dilTIAZem INJ 125 MG in IV DEXTROSE 5% 100ML 100 ML IV PRN (04:15)
[2019-02-18] MEDS: IV NORMAL SALINE 1000ML BAG 1,000 ML IV SCH ×3 (04:23→22:20)
[2019-02-18] MEDS: CALCIUM CARBONATE 500 MG TAB.CHEW PO PRN ×2 (04:26→22:25)
[2019-02-18] MEDS: PIPERACILLIN/TAZOBACTAM 3.375 GM in IV NORMAL SALINE 50ML 50 ML IV SCH ×3 (05:23→18:23)
[2019-02-18 05:28] LABS: BASO % 0 % (0-3); EOS % 0 % (0-3); HEMATOCRIT 27.2 % (39.0-53.0); HEMOGLOBIN 8.9 g/dL (13.0-17.5); LYMPH # 0.7 x10^3/uL (1.0-4.8); LYMPH % 3 % (24-48); MEAN CORPUSCULAR HEMOGLOBIN 30 pg (25-35); MEAN CORPUSCULAR HGB CONC 33 g/dL (31-37); MEAN CORPUSCULAR VOLUME 93 fL (79-100); MONO # 1.3 x10^3/uL (0.0-1.1); MONO % 6 % (0-9); NEUT # 19.1 x10^3uL (1.8-7.7); NEUT % 90 % (31-73); PLATELET COUNT 186 x10^3/uL (140-400); RED BLOOD COUNT 2.91 x10^6/uL (4.30-5.70); RED CELL DISTRIBUTION WIDTH 14.7 % (11.5-14.5); WHITE BLOOD COUNT 21.2 x10^3/uL (4.0-11.0)
[2019-02-18 05:50] LABS: CALCIUM 8.5 mg/dL (8.5-10.1); CREATININE 1.5 mg/dL (0.7-1.3); GFR 44.7; POTASSIUM 4.3 mmol/L (3.5-5.1)
--- NOTE | 2019-02-18 06:31 | NUR ---
Nurse end of shift note: At approx 0200, pt NICOLAS drained around drain and soaked 1/4 lowell and 3 drainage sponges with 10ml in NICOLAS. Drainage was serious. Pt NICOLAS site redressed with compression dressing. Hilda was called this am and ordered abdominal binder. At approx 0255, pt went into Afib with RVR. Termulo was notified with order for cardizem gtt and consult to cardiology. Pt ran a temp of 101.1 at approx 2300 and low urine output. Termulo was notified and Tylenol was given with consult to ID and increased fluids and bolus of 500ml. Pt maintained SPO2 94-96% on 4L NC throughout the night.
--- NOTE | 2019-02-18 07:46 | PDOC ---
Infectious Disease Note Vital Sign Vital Signs Vital Signs Date Time Temp Pulse Resp B/P (MAP) Pulse Ox O2 Delivery O2 Flow Rate FiO2 02/18/19 06:48 136 24 112/62 (79) 96 Nasal Cannula 4.0 02/18/19 06:23 98.5 98.5 Labs Lab Laboratory Tests Test 02/17/19 15:15 02/17/19 18:15 02/17/19 18:55 02/18/19 04:25 Lactic Acid Level 2.1 mmol/L (0.4-2.0) 1.3 mmol/L (0.4-2.0) Calcium Level 8.8 mg/dL (8.5-10.1) 8.5 mg/dL (8.5-10.1) Magnesium Level 2.3 mg/dL (1.8-2.4) Urine Collection Type Unknown Urine Color Sofia Urine Clarity Cloudy Urine pH 5.5 Urine Specific [place] >=1.030 Urine Protein 100 mg/dL (NEG-TRACE) Urine Glucose (UA) Negative mg/dL (NEG) Urine Ketones (Stick) Trace mg/dL (NEG) Urine Blood Trace (NEG) Urine Nitrite Negative (NEG) Urine Bilirubin Small (NEG) Urine Urobilinogen Dipstick 1.0 mg/dL (0.2 mg/dL) Urine Leukocyte Esterase Trace (NEG) Urine RBC 3-5 /HPF (0-2) Urine WBC 1-4 /HPF (0-4) Urine Squamous Epithelial Cells Few /LPF Urine Amorphous Sediment Present /HPF Urine Bacteria 0 /HPF (0-FEW) Urine Mucus Marked /LPF White Blood Count 21.2 x10^3/uL (4.0-11.0) Red Blood Count 2.91 x10^6/uL (4.30-5.70) Hemoglobin 8.9 g/dL (13.0-17.5) Hematocrit 27.2 % (39.0-53.0) Mean Corpuscular Volume 93 fL (79-100) Mean Corpuscular Hemoglobin 30 pg (25-35) Mean Corpuscular Hemoglobin Concent 33 g/dL (31-37) Red Cell Distribution Width 14.7 % (11.5-14.5) Platelet Count 186 x10^3/uL (140-400) Neutrophils (%) (Auto) 90 % (31-73) Lymphocytes (%) (Auto) 3 % (24-48) Monocytes (%) (Auto) 6 % (0-9) Eosinophils (%) (Auto) 0 % (0-3) Basophils (%) (Auto) 0 % (0-3) Neutrophils # (Auto) 19.1 x10^3uL (1.8-7.7) Lymphocytes # (Auto) 0.7 x10^3/uL (1.0-4.8) Monocytes # (Auto) 1.3 x10^3/uL (0.0-1.1) Eosinophils # (Auto) 0.0 x10^3/uL (0.0-0.7) Basophils # (Auto) 0.0 x10^3/uL (0.0-0.2) Sodium Level 140 mmol/L (136-145) Potassium Level 4.3 mmol/L (3.5-5.1) Chloride Level 106 mmol/L (98-107) Carbon Dioxide Level 24 mmol/L (21-32) Anion Gap 10 (6-14) Blood Urea Nitrogen 32 mg/dL (8-26) Creatinine 1.5 mg/dL (0.7-1.3) Estimated GFR (Cockcroft-Gault) 44.7 Glucose Level 133 mg/dL (70-99) Objective Assessment Fever Leukocytosis S/P Cholecystectomy HERBER A fib Plan Plan of Care cont zosyn add zyvox supportive care up in chair/PT/OT LORENA POWELL MD Feb 18, 2019 07:46
--- NOTE | 2019-02-18 08:16 | PDOC ---
SURGICAL PROGRESS NOTE Subjective up to bedside chair, sleeping but awakens easily and answers appropriately some abdominal pain Vital Signs Vital Signs Date Time Temp Pulse Resp B/P (MAP) Pulse Ox O2 Delivery O2 Flow Rate FiO2 02/18/19 06:48 136 24 112/62 (79) 96 Nasal Cannula 4.0 02/18/19 06:23 98.5 98.5 I&O Intake and Output 02/18/19 07:00 Intake Total 3228 ml Output Total 932 ml Balance 2296 ml Intake Oral 50 ml IV Total 3178 ml Output Urine Total 792 ml Emesis 10 ml Drainage Total 130 ml # Voids 50 PATIENT HAS A MIRELES: Yes (accurate I and O) General: Alert, No acute distress Abdomen: Soft, Other (NICOLAS drain with serosanguineous output) Labs Laboratory Tests Test 02/17/19 06:50 02/17/19 15:15 02/17/19 18:15 02/17/19 18:55 White Blood Count 18.4 x10^3/uL (4.0-11.0) Red Blood Count 2.72 x10^6/uL (4.30-5.70) Hemoglobin 8.2 g/dL (13.0-17.5) Hematocrit 25.3 % (39.0-53.0) Mean Corpuscular Volume 93 fL (79-100) Mean Corpuscular Hemoglobin 30 pg (25-35) Mean Corpuscular Hemoglobin Concent 33 g/dL (31-37) Red Cell Distribution Width 14.2 % (11.5-14.5) Platelet Count 168 x10^3/uL (140-400) Neutrophils (%) (Auto) 90 % (31-73) Lymphocytes (%) (Auto) 5 % (24-48) Monocytes (%) (Auto) 5 % (0-9) Eosinophils (%) (Auto) 0 % (0-3) Basophils (%) (Auto) 0 % (0-3) Neutrophils # (Auto) 16.6 x10^3uL (1.8-7.7) Lymphocytes # (Auto) 0.9 x10^3/uL (1.0-4.8) Monocytes # (Auto) 1.0 x10^3/uL (0.0-1.1) Eosinophils # (Auto) 0.0 x10^3/uL (0.0-0.7) Basophils # (Auto) 0.0 x10^3/uL (0.0-0.2) Segmented Neutrophils % 81 % (35-66) Band Neutrophils % 10 % (0-9) Lymphocytes % 3 % (24-48) Monocytes % 6 % (0-10) Platelet Estimate Adequate (ADEQUATE) Sodium Level 137 mmol/L (136-145) Potassium Level 4.8 mmol/L (3.5-5.1) Chloride Level 105 mmol/L (98-107) Carbon Dioxide Level 24 mmol/L (21-32) Anion Gap 8 (6-14) Blood Urea Nitrogen 32 mg/dL (8-26) Creatinine 1.5 mg/dL (0.7-1.3) Estimated GFR (Cockcroft-Gault) 44.7 BUN/Creatinine Ratio 21 (6-20) Glucose Level 115 mg/dL (70-99) Calcium Level 8.2 mg/dL (8.5-10.1) 8.8 mg/dL (8.5-10.1) Total Bilirubin 0.9 mg/dL (0.2-1.0) Aspartate Amino Transf (AST/SGOT) 24 U/L (15-37) Alanine Aminotransferase (ALT/SGPT) 28 U/L (16-63) Alkaline Phosphatase 62 U/L (46-116) Total Protein 4.9 g/dL (6.4-8.2) Albumin 1.9 g/dL (3.4-5.0) Albumin/Globulin Ratio 0.6 (1.0-1.7) Lactic Acid Level 2.1 mmol/L (0.4-2.0) 1.3 mmol/L (0.4-2.0) Magnesium Level 2.3 mg/dL (1.8-2.4) Urine Collection Type Unknown Urine Color Sofia Urine Clarity Cloudy Urine pH 5.5 Urine Specific [place] >=1.030 Urine Protein 100 mg/dL (NEG-TRACE) Urine Glucose (UA) Negative mg/dL (NEG) Urine Ketones (Stick) Trace mg/dL (NEG) Urine Blood Trace (NEG) Urine Nitrite Negative (NEG) Urine Bilirubin Small (NEG) Urine Urobilinogen Dipstick 1.0 mg/dL (0.2 mg/dL) Urine Leukocyte Esterase Trace (NEG) Urine RBC 3-5 /HPF (0-2) Urine WBC 1-4 /HPF (0-4) Urine Squamous Epithelial Cells Few /LPF Urine Amorphous Sediment Present /HPF Urine Bacteria 0 /HPF (0-FEW) Urine Mucus Marked /LPF Test 02/18/19 04:25 White Blood Count 21.2 x10^3/uL (4.0-11.0) Red Blood Count 2.91 x10^6/uL (4.30-5.70) Hemoglobin 8.9 g/dL (13.0-17.5) Hematocrit 27.2 % (39.0-53.0) Mean Corpuscular Volume 93 fL (79-100) Mean Corpuscular Hemoglobin 30 pg (25-35) Mean Corpuscular Hemoglobin Concent 33 g/dL (31-37) Red Cell Distribution Width 14.7 % (11.5-14.5) Platelet Count 186 x10^3/uL (140-400) Neutrophils (%) (Auto) 90 % (31-73) Lymphocytes (%) (Auto) 3 % (24-48) Monocytes (%) (Auto) 6 % (0-9) Eosinophils (%) (Auto) 0 % (0-3) Basophils (%) (Auto) 0 % (0-3) Neutrophils # (Auto) 19.1 x10^3uL (1.8-7.7) Lymphocytes # (Auto) 0.7 x10^3/uL (1.0-4.8) Monocytes # (Auto) 1.3 x10^3/uL (0.0-1.1) Eosinophils # (Auto) 0.0 x10^3/uL (0.0-0.7) Basophils # (Auto) 0.0 x10^3/uL (0.0-0.2) Sodium Level 140 mmol/L (136-145) Potassium Level 4.3 mmol/L (3.5-5.1) Chloride Level 106 mmol/L (98-107) Carbon Dioxide Level 24 mmol/L (21-32) Anion Gap 10 (6-14) Blood Urea Nitrogen 32 mg/dL (8-26) Creatinine 1.5 mg/dL (0.7-1.3) Estimated GFR (Cockcroft-Gault) 44.7 Glucose Level 133 mg/dL (70-99) Calcium Level 8.5 mg/dL (8.5-10.1) Laboratory Tests Test 02/17/19 15:15 02/17/19 18:15 02/17/19 18:55 02/18/19 04:25 Lactic Acid Level 2.1 mmol/L (0.4-2.0) 1.3 mmol/L (0.4-2.0) Calcium Level 8.8 mg/dL (8.5-10.1) 8.5 mg/dL (8.5-10.1) Magnesium Level 2.3 mg/dL (1.8-2.4) Urine Collection Type Unknown Urine Color Sofia Urine Clarity Cloudy Urine pH 5.5 Urine Specific [place] >=1.030 Urine Protein 100 mg/dL (NEG-TRACE) Urine Glucose (UA) Negative mg/dL (NEG) Urine Ketones (Stick) Trace mg/dL (NEG) Urine Blood Trace (NEG) Urine Nitrite Negative (NEG) Urine Bilirubin Small (NEG) Urine Urobilinogen Dipstick 1.0 mg/dL (0.2 mg/dL) Urine Leukocyte Esterase Trace (NEG) Urine RBC 3-5 /HPF (0-2) Urine WBC 1-4 /HPF (0-4) Urine Squamous Epithelial Cells Few /LPF Urine Amorphous Sediment Present /HPF Urine Bacteria 0 /HPF (0-FEW) Urine Mucus Marked /LPF White Blood Count 21.2 x10^3/uL (4.0-11.0) Red Blood Count 2.91 x10^6/uL (4.30-5.70) Hemoglobin 8.9 g/dL (13.0-17.5) Hematocrit 27.2 % (39.0-53.0) Mean Corpuscular Volume 93 fL (79-100) Mean Corpuscular Hemoglobin 30 pg (25-35) Mean Corpuscular Hemoglobin Concent 33 g/dL (31-37) Red Cell Distribution Width 14.7 % (11.5-14.5) Platelet Count 186 x10^3/uL (140-400) Neutrophils (%) (Auto) 90 % (31-73) Lymphocytes (%) (Auto) 3 % (24-48) Monocytes (%) (Auto) 6 % (0-9) Eosinophils (%) (Auto) 0 % (0-3) Basophils (%) (Auto) 0 % (0-3) Neutrophils # (Auto) 19.1 x10^3uL (1.8-7.7) Lymphocytes # (Auto) 0.7 x10^3/uL (1.0-4.8) Monocytes # (Auto) 1.3 x10^3/uL (0.0-1.1) Eosinophils # (Auto) 0.0 x10^3/uL (0.0-0.7) Basophils # (Auto) 0.0 x10^3/uL (0.0-0.2) Sodium Level 140 mmol/L (136-145) Potassium Level 4.3 mmol/L (3.5-5.1) Chloride Level 106 mmol/L (98-107) Carbon Dioxide Level 24 mmol/L (21-32) Anion Gap 10 (6-14) Blood Urea Nitrogen 32 mg/dL (8-26) Creatinine 1.5 mg/dL (0.7-1.3) Estimated GFR (Cockcroft-Gault) 44.7 Glucose Level 133 mg/dL (70-99) Hb stable urine "dry" Problem List POD 4 l/s karie, return for l/s evacuation hemoperitoneum now in a fib, had fever last noc, WBC up continue supportive care appreciate consultants input KEESHA POLLACK MD Feb 18, 2019 08:16
--- NOTE | 2019-02-18 08:36 | CONS ---
DATE OF CONSULTATION: 02/17/2019 ATTENDING PHYSICIAN: Jasson Bueno MD. REASON FOR CONSULTATION: The patient was seen in pulmonary consultation at the request of Dr. Bueno for hypoxemia. HISTORY OF PRESENT ILLNESS: The patient is an 83-year-old male that presented with flu-like symptoms. He had some fever developed. He also developed cholecystitis, underwent laparoscopic cholecystectomy on 02/14. He subsequently had some bleeding from the NICOLAS drain, was taken to the operating room once again for exploratory laparotomy. He was found to have a hemoperitoneum. Over the last 24 hours, he became more short of air. He became hypoxic. I was asked to see him in consultation. His chest x-ray was reviewed. There is bilateral atelectasis, possible effusion on the right and possibly on the left. The patient has never smoked. There is no history of asthma. He has not been coughing up any mucus. He is currently on antibiotics. PAST MEDICAL HISTORY: Otherwise unremarkable. He was admitted at this time for flu-like symptoms and cholecystitis, underwent laparoscopic cholecystectomy on 02/14. Otherwise there is a history of hypertension, hyperlipidemia, previous CVA and gastroesophageal reflux. PAST SURGICAL HISTORY: As above. FAMILY HISTORY: Hypertension. ALLERGIES: IODINE AND IRON DEXTRAN COMPLEX. SOCIAL HISTORY: Nonsmoker. REVIEW OF SYSTEMS: As indicated above, otherwise, a 10-point system was reviewed and negative. PHYSICAL EXAMINATION: GENERAL: The patient was in no respiratory distress. VITAL SIGNS: Yesterday, he had a T-max of 102.7, today is afebrile, currently on 2 liters. HEENT: Eyes, the sclerae were nonicteric. NECK: Jugular venous distention was not elevated. No lymphadenopathy. CHEST: Full expansion. LUNGS: Crackles in the bases with no wheezes. CARDIOVASCULAR: Regular rate and rhythm with S1, S2, no S3. ABDOMEN: Soft. Dressing in place. EXTREMITIES: No clubbing, cyanosis or pitting edema. NEUROLOGIC: The patient was awake, alert, following commands. A detailed neuro exam was not performed. LABORATORY DATA: White count was elevated at 18,000, hemoglobin and hematocrit noted. IMPRESSION: 1. Expected hypoxemic respiratory failure. 2. Status post laparoscopic cholecystectomy with cholangiogram. 3. Status post exploratory laparotomy for hemoperitoneum on 02/14. 4. Abnormal x-ray compatible with atelectasis and effusion, suspect related to intra-abdominal inflammation and possible infection. 5. Leukocytosis. 6. History of cerebrovascular accident, hypertension 7. Hyperlipidemia. 8. Transient atrial fibrillation. PLAN: 1. Continue current support with IV antibiotics. 2. Incentive spirometry. 3. No need for thoracentesis at this time, the pleural effusions are very small. 4. Diet per surgeon. 5. DVT and GI prophylaxis. I do appreciate the privilege in sharing in the patient's care. UMA NARANJO MD DR: HARRY/genaro JOB#: [id number] / [id number]
--- NOTE | 2019-02-18 08:57 | PDOC ---
PROGRESS NOTES Chief Complaint Chief Complaint Assessment/Plan Status post lap cholecystectomy, 02/14/19 Postop status cyst/fulfills tachycardia tachypnea AK I VMN-creatinine 1.5 today from normal Leukocytosis, WBC 21 today from normal, started on empiric Zosyn, zyvox History CVA, hypertension, dyslipidemia and GERD on medication Atrial fibrillation with RVR Plan ICU, IV fluids 100 mL for now stop K containing IVF Recheck labs tomorrow Increase cardizem GTT to 15mg/hr, so long as BP tolerates. Low threshold for low dose digoxin or amio if necessary PT OT when more able GI soft diet already on Needs nutrition consult as poor intake still but sometimes expected postop in this elderly DNR/DNI Discussed with at bedside in [facility] History of Present Illness History of Present Illness 83-year-old male who came in for flulike symptoms. He came from home with the . Was treated. But course remarkable for developing either ch olelithiasis or cholecystitis and underwent laparoscopic cholecystectomy on 02/14/19 bu postop course was remarkable for bleeding around the NICOLAS drain and around the postop site that they had to redo him that same day but no exploratory laparoscopy done/needed. Taken to ICU for Afib with RVR on 02/17/19. He is on GI soft diet but with minimal intake. He is belching and c/o "reflux" symptoms and no appetite. Cr still 1.5. Lactate was elevated, normalized after IVF. Still in afib on cardizem 10mg/hr Vitals Vitals Vital Signs Date Time Temp Pulse Resp B/P (MAP) Pulse Ox O2 Delivery O2 Flow Rate FiO2 02/18/19 06:48 136 24 112/62 (79) 96 Nasal Cannula 4.0 02/18/19 06:23 98.5 98.5 Physical Exam General: Alert, No acute distress Heart: Regular rate, Normal S1, Normal S2, Other (sinus tachycardia 90s) Lungs: Clear Abdomen: Soft, Other (NICOLAS drain with serosanguineous output) Extremities: No clubbing, No cyanosis Skin: No rashes, No breakdown Labs LABS Laboratory Tests Test 02/17/19 15:15 02/17/19 18:15 02/17/19 18:55 02/18/19 04:25 Lactic Acid Level 2.1 mmol/L (0.4-2.0) 1.3 mmol/L (0.4-2.0) Calcium Level 8.8 mg/dL (8.5-10.1) 8.5 mg/dL (8.5-10.1) Magnesium Level 2.3 mg/dL (1.8-2.4) Urine Collection Type Unknown Urine Color Sofia Urine Clarity Cloudy Urine pH 5.5 Urine Specific Boyle >=1.030 Urine Protein 100 mg/dL (NEG-TRACE) Urine Glucose (UA) Negative mg/dL (NEG) Urine Ketones (Stick) Trace mg/dL (NEG) Urine Blood Trace (NEG) Urine Nitrite Negative (NEG) Urine Bilirubin Small (NEG) Urine Urobilinogen Dipstick 1.0 mg/dL (0.2 mg/dL) Urine Leukocyte Esterase Trace (NEG) Urine RBC 3-5 /HPF (0-2) Urine WBC 1-4 /HPF (0-4) Urine Squamous Epithelial Cells Few /LPF Urine Amorphous Sediment Present /HPF Urine Bacteria 0 /HPF (0-FEW) Urine Mucus Marked /LPF White Blood Count 21.2 x10^3/uL (4.0-11.0) Red Blood Count 2.91 x10^6/uL (4.30-5.70) Hemoglobin 8.9 g/dL (13.0-17.5) Hematocrit 27.2 % (39.0-53.0) Mean Corpuscular Volume 93 fL (79-100) Mean Corpuscular Hemoglobin 30 pg (25-35) Mean Corpuscular Hemoglobin Concent 33 g/dL (31-37) Red Cell Distribution Width 14.7 % (11.5-14.5) Platelet Count 186 x10^3/uL (140-400) Neutrophils (%) (Auto) 90 % (31-73) Lymphocytes (%) (Auto) 3 % (24-48) Monocytes (%) (Auto) 6 % (0-9) Eosinophils (%) (Auto) 0 % (0-3) Basophils (%) (Auto) 0 % (0-3) Neutrophils # (Auto) 19.1 x10^3uL (1.8-7.7) Lymphocytes # (Auto) 0.7 x10^3/uL (1.0-4.8) Monocytes # (Auto) 1.3 x10^3/uL (0.0-1.1) Eosinophils # (Auto) 0.0 x10^3/uL (0.0-0.7) Basophils # (Auto) 0.0 x10^3/uL (0.0-0.2) Sodium Level 140 mmol/L (136-145) Potassium Level 4.3 mmol/L (3.5-5.1) Chloride Level 106 mmol/L (98-107) Carbon Dioxide Level 24 mmol/L (21-32) Anion Gap 10 (6-14) Blood Urea Nitrogen 32 mg/dL (8-26) Creatinine 1.5 mg/dL (0.7-1.3) Estimated GFR (Cockcroft-Gault) 44.7 Glucose Level 133 mg/dL (70-99) Comment Review of Relevant I have reviewed the following items timoteo (where applicable) has been applied. Labs Laboratory Tests Test 02/17/19 06:50 02/17/19 15:15 02/17/19 18:15 02/17/19 18:55 White Blood Count 18.4 x10^3/uL (4.0-11.0) Red Blood Count 2.72 x10^6/uL (4.30-5.70) Hemoglobin 8.2 g/dL (13.0-17.5) Hematocrit 25.3 % (39.0-53.0) Mean Corpuscular Volume 93 fL (79-100) Mean Corpuscular Hemoglobin 30 pg (25-35) Mean Corpuscular Hemoglobin Concent 33 g/dL (31-37) Red Cell Distribution Width 14.2 % (11.5-14.5) Platelet Count 168 x10^3/uL (140-400) Neutrophils (%) (Auto) 90 % (31-73) Lymphocytes (%) (Auto) 5 % (24-48) Monocytes (%) (Auto) 5 % (0-9) Eosinophils (%) (Auto) 0 % (0-3) Basophils (%) (Auto) 0 % (0-3) Neutrophils # (Auto) 16.6 x10^3uL (1.8-7.7) Lymphocytes # (Auto) 0.9 x10^3/uL (1.0-4.8) Monocytes # (Auto) 1.0 x10^3/uL (0.0-1.1) Eosinophils # (Auto) 0.0 x10^3/uL (0.0-0.7) Basophils # (Auto) 0.0 x10^3/uL (0.0-0.2) Segmented Neutrophils % 81 % (35-66) Band Neutrophils % 10 % (0-9) Lymphocytes % 3 % (24-48) Monocytes % 6 % (0-10) Platelet Estimate Adequate (ADEQUATE) Sodium Level 137 mmol/L (136-145) Potassium Level 4.8 mmol/L (3.5-5.1) Chloride Level 105 mmol/L (98-107) Carbon Dioxide Level 24 mmol/L (21-32) Anion Gap 8 (6-14) Blood Urea Nitrogen 32 mg/dL (8-26) Creatinine 1.5 mg/dL (0.7-1.3) Estimated GFR (Cockcroft-Gault) 44.7 BUN/Creatinine Ratio 21 (6-20) Glucose Level 115 mg/dL (70-99) Calcium Level 8.2 mg/dL (8.5-10.1) 8.8 mg/dL (8.5-10.1) Total Bilirubin 0.9 mg/dL (0.2-1.0) Aspartate Amino Transf (AST/SGOT) 24 U/L (15-37) Alanine Aminotransferase (ALT/SGPT) 28 U/L (16-63) Alkaline Phosphatase 62 U/L (46-116) Total Protein 4.9 g/dL (6.4-8.2) Albumin 1.9 g/dL (3.4-5.0) Albumin/Globulin Ratio 0.6 (1.0-1.7) Lactic Acid Level 2.1 mmol/L (0.4-2.0) 1.3 mmol/L (0.4-2.0) Magnesium Level 2.3 mg/dL (1.8-2.4) Urine Collection Type Unknown Urine Color Sofia Urine Clarity Cloudy Urine pH 5.5 Urine Specific Boyle >=1.030 Urine Protein 100 mg/dL (NEG-TRACE) Urine Glucose (UA) Negative mg/dL (NEG) Urine Ketones (Stick) Trace mg/dL (NEG) Urine Blood Trace (NEG) Urine Nitrite Negative (NEG) Urine Bilirubin Small (NEG) Urine Urobilinogen Dipstick 1.0 mg/dL (0.2 mg/dL) Urine Leukocyte Esterase Trace (NEG) Urine RBC 3-5 /HPF (0-2) Urine WBC 1-4 /HPF (0-4) Urine Squamous Epithelial Cells Few /LPF Urine Amorphous Sediment Present /HPF Urine Bacteria 0 /HPF (0-FEW) Urine Mucus Marked /LPF Test 02/18/19 04:25 White Blood Count 21.2 x10^3/uL (4.0-11.0) Red Blood Count 2.91 x10^6/uL (4.30-5.70) Hemoglobin 8.9 g/dL (13.0-17.5) Hematocrit 27.2 % (39.0-53.0) Mean Corpuscular Volume 93 fL (79-100) Mean Corpuscular Hemoglobin 30 pg (25-35) Mean Corpuscular Hemoglobin Concent 33 g/dL (31-37) Red Cell Distribution Width 14.7 % (11.5-14.5) Platelet Count 186 x10^3/uL (140-400) Neutrophils (%) (Auto) 90 % (31-73) Lymphocytes (%) (Auto) 3 % (24-48) Monocytes (%) (Auto) 6 % (0-9) Eosinophils (%) (Auto) 0 % (0-3) Basophils (%) (Auto) 0 % (0-3) Neutrophils # (Auto) 19.1 x10^3uL (1.8-7.7) Lymphocytes # (Auto) 0.7 x10^3/uL (1.0-4.8) Monocytes # (Auto) 1.3 x10^3/uL (0.0-1.1) Eosinophils # (Auto) 0.0 x10^3/uL (0.0-0.7) Basophils # (Auto) 0.0 x10^3/uL (0.0-0.2) Sodium Level 140 mmol/L (136-145) Potassium Level 4.3 mmol/L (3.5-5.1) Chloride Level 106 mmol/L (98-107) Carbon Dioxide Level 24 mmol/L (21-32) Anion Gap 10 (6-14) Blood Urea Nitrogen 32 mg/dL (8-26) Creatinine 1.5 mg/dL (0.7-1.3) Estimated GFR (Cockcroft-Gault) 44.7 Glucose Level 133 mg/dL (70-99) Calcium Level 8.5 mg/dL (8.5-10.1) Laboratory Tests Test 02/17/19 15:15 02/17/19 18:15 02/17/19 18:55 02/18/19 04:25 Lactic Acid Level 2.1 mmol/L (0.4-2.0) 1.3 mmol/L (0.4-2.0) Calcium Level 8.8 mg/dL (8.5-10.1) 8.5 mg/dL (8.5-10.1) Magnesium Level 2.3 mg/dL (1.8-2.4) Urine Collection Type Unknown Urine Color Sofia Urine Clarity Cloudy Urine pH 5.5 Urine Specific Boyle >=1.030 Urine Protein 100 mg/dL (NEG-TRACE) Urine Glucose (UA) Negative mg/dL (NEG) Urine Ketones (Stick) Trace mg/dL (NEG) Urine Blood Trace (NEG) Urine Nitrite Negative (NEG) Urine Bilirubin Small (NEG) Urine Urobilinogen Dipstick 1.0 mg/dL (0.2 mg/dL) Urine Leukocyte Esterase Trace (NEG) Urine RBC 3-5 /HPF (0-2) Urine WBC 1-4 /HPF (0-4) Urine Squamous Epithelial Cells Few /LPF Urine Amorphous Sediment Present /HPF Urine Bacteria 0 /HPF (0-FEW) Urine Mucus Marked /LPF White Blood Count 21.2 x10^3/uL (4.0-11.0) Red Blood Count 2.91 x10^6/uL (4.30-5.70) Hemoglobin 8.9 g/dL (13.0-17.5) Hematocrit 27.2 % (39.0-53.0) Mean Corpuscular Volume 93 fL (79-100) Mean Corpuscular Hemoglobin 30 pg (25-35) Mean Corpuscular Hemoglobin Concent 33 g/dL (31-37) Red Cell Distribution Width 14.7 % (11.5-14.5) Platelet Count 186 x10^3/uL (140-400) Neutrophils (%) (Auto) 90 % (31-73) Lymphocytes (%) (Auto) 3 % (24-48) Monocytes (%) (Auto) 6 % (0-9) Eosinophils (%) (Auto) 0 % (0-3) Basophils (%) (Auto) 0 % (0-3) Neutrophils # (Auto) 19.1 x10^3uL (1.8-7.7) Lymphocytes # (Auto) 0.7 x10^3/uL (1.0-4.8) Monocytes # (Auto) 1.3 x10^3/uL (0.0-1.1) Eosinophils # (Auto) 0.0 x10^3/uL (0.0-0.7) Basophils # (Auto) 0.0 x10^3/uL (0.0-0.2) Sodium Level 140 mmol/L (136-145) Potassium Level 4.3 mmol/L (3.5-5.1) Chloride Level 106 mmol/L (98-107) Carbon Dioxide Level 24 mmol/L (21-32) Anion Gap 10 (6-14) Blood Urea Nitrogen 32 mg/dL (8-26) Creatinine 1.5 mg/dL (0.7-1.3) Estimated GFR (Cockcroft-Gault) 44.7 Glucose Level 133 mg/dL (70-99) Medications Current Medications Ondansetron HCl (Zofran) 4 mg PRN Q6HRS PRN IV NAUSEA/VOMITING; Start 02/14/19 at 07:00; Stop 02/14/19 at 20:00; Status DC Fentanyl Citrate (Fentanyl 2ml Vial) 25 mcg PRN Q5MIN PRN IV MILD PAIN Last administered on 02/14/19at 14:28; Start 02/14/19 at 07:00; Stop 02/14/19 at 20:00; Status DC Fentanyl Citrate (Fentanyl 2ml Vial) 50 mcg PRN Q5MIN PRN IV MODERATE TO SEVERE PAIN; Start 02/14/19 at 07:00; Stop 02/14/19 at 20:00; Status DC Morphine Sulfate (Morphine Sulfate) 1 mg PRN Q10MIN PRN IV SEVERE PAIN; Start 02/14/19 at 07:00; Stop 02/14/19 at 20:00; Status DC Ringer's Solution 1,000 ml @ 30 mls/hr Q24H IV Last administered on 02/14/19at 07:52; Start 02/14/19 at 07:00; Stop 02/14/19 at 18:59; Status DC Lidocaine HCl (Xylocaine-Mpf 1% 2ml Vial) 2 ml PRN 1X PRN ID PRIOR TO IV START; Start 02/14/19 at 07:00; Stop 02/14/19 at 20:00; Status DC Hydromorphone HCl (Dilaudid) 0.5 mg PRN Q10MIN PRN IV SEV PAIN, Second choice; Start 02/14/19 at 07:00; Stop 02/14/19 at 20:00; Status DC Prochlorperazine Edisylate (Compazine) 5 mg PACU PRN PRN IV NAUSEA, MRX1; Start 02/14/19 at 07:00; Stop 02/14/19 at 20:00; Status DC Cefazolin Sodium/ Dextrose 50 ml @ 100 mls/hr 1X PREOP PRN IV PRIOR TO PROCEDURE Last administered on 02/14/19at 11:21; Start 02/14/19 at 06:00; Stop at 18:00; Status DC Propofol 20 ml @ As Directed STK-MED ONCE IV ; Start 02/14/19 at 08:17; Stop 02/14/19 at 08:18; Status DC Lidocaine HCl (Lidocaine Pf 2% Vial) 5 ml STK-MED ONCE .ROUTE ; Start 02/14/19 at 08:17; Stop 02/14/19 at 08:18; Status DC Ondansetron HCl (Zofran) 4 mg STK-MED ONCE .ROUTE ; Start 02/14/19 at 08:17; Stop 02/14/19 at 08:18; Status DC Dexamethasone Sodium Phosphate (Decadron) 4 mg STK-MED ONCE .ROUTE ; Start 02/14/19 at 08:17; Stop 02/14/19 at 08:18; Status DC Sevoflurane (Ultane) 60 ml STK-MED ONCE IH ; Start 02/14/19 at 08:17; Stop 02/14/19 at 08:18; Status DC Rocuronium Clayton (Zemuron) 50 mg STK-MED ONCE .ROUTE ; Start 02/14/19 at 08:17; Stop 02/14/19 at 08:18; Status DC Fentanyl Citrate (Fentanyl 2ml Vial) 100 mcg STK-MED ONCE .ROUTE ; Start 02/14/19 at 08:39; Stop 02/14/19 at 08:40; Status DC Bupivacaine HCl/ Epinephrine Bitart (Sensorcain-Mpf Epi 0.5%-1:[id number]) 30 ml STK-MED ONCE .ROUTE Last administered on 02/14/19at 11:48; Start 02/14/19 at 10:01; Stop 02/14/19 at 11:02; Status DC Glucagon (Glucagen) 1 mg STK-MED ONCE .ROUTE ; Start 02/14/19 at 10:01; Stop 02/14/19 at 11:02; Status DC Iohexol (Omnipaque 300 Mg/ml) 100 ml STK-MED ONCE .ROUTE Last administered on 02/14/19at 11:48; Start 02/14/19 at 10:01; Stop 02/14/19 at 11:02; Status DC Cellulose (Surgicel Hemostat 4x8) 1 each STK-MED ONCE .ROUTE Last administered on 02/14/19at 13:12; Start 02/14/19 at 10:01; Stop 02/14/19 at 11:02; Status DC Cellulose (Surgicel Hemostat 4x8) 1 each STK-MED ONCE .ROUTE Last administered on 02/14/19at 13:31; Start 02/14/19 at 11:19; Stop 02/14/19 at 12:19; Status DC Famotidine (Pepcid Vial) 20 mg STK-MED ONCE .ROUTE ; Start 02/14/19 at 13:14; Stop 02/14/19 at 13:15; Status DC Diphenhydramine HCl (Benadryl) 50 mg STK-MED ONCE .ROUTE ; Start 02/14/19 at 13:14; Stop 02/14/19 at 13:15; Status DC Rocuronium Clayton (Zemuron) 50 mg STK-MED ONCE .ROUTE ; Start 02/14/19 at 13:14; Stop 02/14/19 at 13:15; Status DC Fentanyl Citrate (Fentanyl 2ml Vial) 100 mcg STK-MED ONCE .ROUTE ; Start 02/14/19 at 13:15; Stop 02/14/19 at 13:16; Status DC Cellulose (Surgicel Hemostat 4x8) 1 each STK-MED ONCE .ROUTE ; Start 02/14/19 at 12:33; Stop 02/14/19 at 13:33; Status DC Diphenhydramine HCl (Benadryl) 25 mg PRN Q6HRS PRN PO ITCHING; Start 02/14/19 at 14:00 Sodium Chloride (Normal Saline Flush) 3 ml QSHIFT PRN IV AFTER MEDS AND BLOOD DRAWS; Start 02/14/19 at 14:00 Potassium Chloride/Sodium Chloride 1,000 ml @ 80 mls/hr [id number] IV Last administered on 02/17/19 06:02; Start 02/14/19 at 15:00; Stop 02/17/19 at 12:54; Status DC Dextrose (Dextrose 50%-Water Syringe) 12.5 gm PRN Q15MIN PRN IV SEE COMMENTS; Start 02/14/19 at 14:00 Acetaminophen/ Hydrocodone Bitart (Lortab 5/325) 1 tab PRN Q4HRS PRN PO MILD PAIN Last administered on 02/17/19 08:35; Start 02/14/19 at 14:00 Acetaminophen/ Hydrocodone Bitart (Lortab 5/325) 2 tab PRN Q4HRS PRN PO MODERATE PAIN, SEVERE PAIN Last administered on 02/17/19 03:22; Start 02/14/19 at 14:00 Hydromorphone HCl (Dilaudid) 1 mg PRN Q4HRS PRN IV PAIN Last administered on 02/15/19 17:46; Start 02/14/19 at 14:00 Docusate Sodium (Colace) 100 mg BID PO Last administered on 02/17/19 21:38; Start 02/14/19 at 21:00 Ondansetron HCl (Zofran) 4 mg PRN Q6HRS PRN IV NAUESA, 1ST CHOICE Last administered on 02/17/19 23:57; Start 02/14/19 at 14:00 Atorvastatin Calcium (Lipitor) 40 mg QHS PO Last administered on 02/17/19 21:38; Start 02/14/19 at 21:00 Cyanocobalamin (Vitamin B-12) 1,000 mcg DAILY PO Last administered on 02/17/19at 08:33; Start 02/15/19 at 09:00 Metoprolol Succinate (Toprol Xl) 25 mg DAILY PO Last administered on 02/17/19at 08:34; Start 02/15/19 at 09:00 Tamsulosin HCl (Flomax) 0.4 mg DAILY PO Last administered on 02/17/19at 08:33; Start 02/15/19 at 09:00 Losartan Potassium (Cozaar) 100 mg DAILY PO Last administered on 02/17/19at 13:22; Start 02/15/19 at 09:00 Fentanyl Citrate (Fentanyl 2ml Vial) 100 mcg STK-MED ONCE .ROUTE ; Start at 14:26; Stop 02/14/19 at 14:27; Status DC Bupivacaine HCl/ Epinephrine Bitart (Sensorcain-Mpf Epi 0.5%-1:165822) 30 ml STK-MED ONCE .ROUTE ; Start 02/14/19 at 15:13; Stop 02/14/19 at 16:14; Status DC Bacitracin (Bacitracin) 50,000 unit STK-MED ONCE IRR Last administered on 02/14/19at 16:49; Start 02/14/19 at 15:14; Stop 02/14/19 at 16:15; Status DC Sodium Chloride (SODIUM CHLORIDE 20ml) 20 ml STK-MED ONCE IJ ; Start 02/14/19 at 15:15; Stop 02/14/19 at 16:15; Status DC Cellulose (Surgicel Hemostat 4x8) 3 each STK-MED ONCE TP Last administered on 02/14/19at 16:49; Start 02/14/19 at 16:49; Stop 02/14/19 at 16:55; Status DC Cellulose (Surgicel Hemostat 4x8) 4 each 1X ONCE TP ; Start 02/14/19 at 17:15; Stop 02/14/19 at 17:16; Status DC Cefazolin Sodium/ Dextrose (Ancef 2gm Premix) 2 gm STK-MED ONCE IV ; Start 02/14/19 at 11:00; Stop 02/15/19 at 13:02; Status DC Piperacillin Sod/ Tazobactam Sod 3.375 gm/Sodium Chloride 50 ml @ 100 mls/hr Q6HRS IV Last administered on 02/18/19at 05:23; Start 02/17/19 at 12:00 Sodium Chloride 1,000 ml @ 125 mls/hr Q8H IV Last administered on 02/18/19at 04:23; Start 02/17/19 at 13:00 Clopidogrel Bisulfate (Plavix) 75 mg DAILY PO Last administered on 02/17/19at 15:19; Start 02/17/19 at 14:00 Vitamin D (Vitamin D3) 2,000 unit DAILY PO Last administered on 02/17/19at 15:19; Start 02/17/19 at 14:00 Multivitamins (Thera M Plus) 1 tab DAILY PO Last administered on 02/17/19at 15:19; Start 02/17/19 at 14:00 Calcium Carbonate/ Glycine (Tums) 500 mg PRN AFTMEALHC PRN PO INDIGESTION Last administered on 02/18/19at 04:26; Start 02/17/19 at 15:00 Acetaminophen (Tylenol) 650 mg PRN Q6HRS PRN PO fever Last administered on 02/17/19at 23:50; Start 02/17/19 at 23:45 Sodium Chloride 500 ml @ 500 mls/hr 1X ONCE IV Last administered on 02/17/19at 23:48; Start 02/18/19 at 00:00; Stop 02/18/19 at 00:59; Status DC Diltiazem HCl 125 mg/Dextrose 125 ml @ 5 mls/hr CONT PRN IV SEE I/O RECORD Last administered on 02/18/19at 04:27; Start 02/18/19 at 04:15 Linezolid/Dextrose 300 ml @ 300 mls/hr Q12HR IV ; Start 02/18/19 at 09:00 Active Scripts Active Atorvastatin Calcium 40 Mg Tablet 40 Mg PO QHS 30 Days Reported Flomax (Tamsulosin Hcl) 0.4 Mg Cap.er.24h 0.4 Mg PO DAILY Clopidogrel (Clopidogrel Bisulfate) 75 Mg Tablet 75 Mg PO DAILY Aspirin 81 Mg Tab.chew 1 Tab PO DAILY Vitamin B-12 (Cyanocobalamin (Vitamin B-12)) 1,000 Mcg Tablet 1 Tab PO DAILY Metoprolol Succinate ( Xl ) (Metoprolol Succinate) 25 Mg Tab.er.24h 1 Tab PO DAILY Losartan Potassium 100 Mg Tablet 100 Mg PO DAILY Multivitamins (Multivitamin) 1 Each Tablet 1 Tab PO DAILY Vitamin D (Cholecalciferol (Vitamin D3)) 2,000 Unit Capsule 1 Cap PO DAILY Vitals/I & O Vital Sign - Last 24 Hours 02/17/19 02/17/19 02/17/19 02/17/19 11:30 11:30 12:00 13:22 Temp 98.1 98.1 Pulse 95 90 Resp 18 16 B/P (MAP) 135/57 (83) 119/40 Pulse Ox 90 93 O2 Delivery Nasal Cannula Nasal Cannula Nasal Cannula O2 Flow Rate 4.0 3.0 4.0 02/17/19 02/17/19 02/17/19 02/17/19 15:00 16:00 16:00 17:00 Temp 98.4 98.4 Pulse 91 89 89 Resp 18 17 16 B/P (MAP) 121/50 (73) 110/44 (66) 138/47 (77) Pulse Ox 91 90 95 O2 Delivery Nasal Cannula Nasal Cannula Nasal Cannula Nasal Cannula O2 Flow Rate 2.0 4.0 4.0 4.0 02/17/19 02/17/19 02/17/19 02/17/19 18:00 19:00 19:15 19:30 Temp 98.6 98.6 Pulse 87 74 84 Resp 17 18 20 B/P (MAP) 105/42 (63) 114/44 (67) 127/66 (86) Pulse Ox 94 94 90 O2 Delivery Nasal Cannula Nasal Cannula Nasal Cannula Nasal Cannula O2 Flow Rate 4.0 5.0 5.0 5.0 02/17/19 02/17/19 02/17/19 02/17/19 20:00 21:00 21:38 22:00 Temp 98.1 98.1 Pulse 82 84 80 Resp 18 18 16 B/P (MAP) 111/44 (66) 105/38 (60) 134/50 (78) Pulse Ox 94 98 98 96 O2 Delivery Nasal Cannula Nasal Cannula Nasal Cannula Nasal Cannula O2 Flow Rate 5.0 5.0 4.0 4.0 02/17/19 02/17/19 02/18/19 02/18/19 23:00 23:30 00:00 00:03 Temp 101.1 101.1 Pulse 88 88 Resp 26 B/P (MAP) 130/47 (74) 149/47 (81) Pulse Ox 96 95 O2 Delivery Nasal Cannula Nasal Cannula Nasal Cannula O2 Flow Rate 4.0 4.0 4.0 02/18/19 02/18/19 02/18/19 02/18/19 01:00 02:03 03:00 03:15 Temp 99.7 99.7 Pulse 92 88 150 144 Resp 24 B/P (MAP) 140/54 (82) 149/51 (83) 148/61 (90) 118/52 (74) Pulse Ox 95 96 93 93 O2 Delivery Nasal Cannula Nasal Cannula Nasal Cannula Nasal Cannula O2 Flow Rate 4.0 4.0 4.0 4.0 02/18/19 02/18/19 02/18/19 02/18/19 03:23 04:00 04:30 04:45 Temp 99.2 99.2 Pulse 144 142 140 Resp 24 B/P (MAP) 120/59 (79) 140/53 (82) 131/57 (81) Pulse Ox 95 93 93 O2 Delivery Nasal Cannula Nasal Cannula Nasal Cannula Nasal Cannula O2 Flow Rate 4.0 4.0 4.0 4.0 02/18/19 02/18/19 02/18/19 02/18/19 05:00 05:15 05:30 06:00 Pulse 136 134 138 134 Resp 24 B/P (MAP) 135/54 (81) 96/45 (62) 104/57 (73) 94/46 (62) Pulse Ox 93 94 94 95 O2 Delivery Nasal Cannula Nasal Cannula Nasal Cannula Nasal Cannula O2 Flow Rate 4.0 4.0 4.0 4.0 02/18/19 02/18/19 02/18/19 02/18/19 06:15 06:23 06:30 06:48 Temp 98.5 98.5 Pulse 126 128 136 Resp 24 B/P (MAP) 92/63 (73) 114/65 (81) 112/62 (79) Pulse Ox 96 95 96 O2 Delivery Nasal Cannula Nasal Cannula Nasal Cannula O2 Flow Rate 4.0 4.0 4.0 Intake and Output 02/17/19 02/17/19 02/18/19 14:59 22:59 06:59 Intake Total 50 ml 1093 ml 2085 ml Output Total 563 ml 369 ml Balance 50 ml 530 ml 1716 ml ABIGAIL LIMON MD Feb 18, 2019 08:57
[2019-02-18] MEDS: LOSARTAN POTASSIUM 50 MG TABLET. PO SCH (09:00)
[2019-02-18] MEDS: CLOPIDOGREL BISULFATE 75 MG TABLET PO SCH (09:16)
[2019-02-18] MEDS: TAMSULOSIN 0.4 MG CAP.ER.24H. PO SCH (09:16)
[2019-02-18] MEDS: CHOLECALCIFEROL (VITAMIN D3) 1,000 UNIT TABLET PO SCH (09:16)
[2019-02-18] MEDS: CYANOCOBALAMIN (VITAMIN B-12) 1,000 MCG TABLET. PO SCH (09:16)
[2019-02-18] MEDS: DOCUSATE SODIUM 100 MG CAPSULE. PO SCH ×2 (09:16→22:19)
[2019-02-18] MEDS: MULTIVITAMIN with MINERAL TABLET. PO SCH (09:16)
--- NOTE | 2019-02-18 09:24 | PDOC ---
PULMONARY PROGRESS NOTES Vitals Vital Signs Date Time Temp Pulse Resp B/P (MAP) Pulse Ox O2 Delivery O2 Flow Rate FiO2 02/18/19 06:48 136 24 112/62 (79) 96 Nasal Cannula 4.0 02/18/19 06:23 98.5 98.5 Lungs: Clear Cardiovascular: S1, S2 Labs Laboratory Tests Test 02/17/19 06:50 02/17/19 15:15 02/17/19 18:15 02/17/19 18:55 White Blood Count 18.4 x10^3/uL (4.0-11.0) Red Blood Count 2.72 x10^6/uL (4.30-5.70) Hemoglobin 8.2 g/dL (13.0-17.5) Hematocrit 25.3 % (39.0-53.0) Mean Corpuscular Volume 93 fL (79-100) Mean Corpuscular Hemoglobin 30 pg (25-35) Mean Corpuscular Hemoglobin Concent 33 g/dL (31-37) Red Cell Distribution Width 14.2 % (11.5-14.5) Platelet Count 168 x10^3/uL (140-400) Neutrophils (%) (Auto) 90 % (31-73) Lymphocytes (%) (Auto) 5 % (24-48) Monocytes (%) (Auto) 5 % (0-9) Eosinophils (%) (Auto) 0 % (0-3) Basophils (%) (Auto) 0 % (0-3) Neutrophils # (Auto) 16.6 x10^3uL (1.8-7.7) Lymphocytes # (Auto) 0.9 x10^3/uL (1.0-4.8) Monocytes # (Auto) 1.0 x10^3/uL (0.0-1.1) Eosinophils # (Auto) 0.0 x10^3/uL (0.0-0.7) Basophils # (Auto) 0.0 x10^3/uL (0.0-0.2) Segmented Neutrophils % 81 % (35-66) Band Neutrophils % 10 % (0-9) Lymphocytes % 3 % (24-48) Monocytes % 6 % (0-10) Platelet Estimate Adequate (ADEQUATE) Sodium Level 137 mmol/L (136-145) Potassium Level 4.8 mmol/L (3.5-5.1) Chloride Level 105 mmol/L (98-107) Carbon Dioxide Level 24 mmol/L (21-32) Anion Gap 8 (6-14) Blood Urea Nitrogen 32 mg/dL (8-26) Creatinine 1.5 mg/dL (0.7-1.3) Estimated GFR (Cockcroft-Gault) 44.7 BUN/Creatinine Ratio 21 (6-20) Glucose Level 115 mg/dL (70-99) Calcium Level 8.2 mg/dL (8.5-10.1) 8.8 mg/dL (8.5-10.1) Total Bilirubin 0.9 mg/dL (0.2-1.0) Aspartate Amino Transf (AST/SGOT) 24 U/L (15-37) Alanine Aminotransferase (ALT/SGPT) 28 U/L (16-63) Alkaline Phosphatase 62 U/L (46-116) Total Protein 4.9 g/dL (6.4-8.2) Albumin 1.9 g/dL (3.4-5.0) Albumin/Globulin Ratio 0.6 (1.0-1.7) Lactic Acid Level 2.1 mmol/L (0.4-2.0) 1.3 mmol/L (0.4-2.0) Magnesium Level 2.3 mg/dL (1.8-2.4) Urine Collection Type Unknown Urine Color Sofia Urine Clarity Cloudy Urine pH 5.5 Urine Specific [place] >=1.030 Urine Protein 100 mg/dL (NEG-TRACE) Urine Glucose (UA) Negative mg/dL (NEG) Urine Ketones (Stick) Trace mg/dL (NEG) Urine Blood Trace (NEG) Urine Nitrite Negative (NEG) Urine Bilirubin Small (NEG) Urine Urobilinogen Dipstick 1.0 mg/dL (0.2 mg/dL) Urine Leukocyte Esterase Trace (NEG) Urine RBC 3-5 /HPF (0-2) Urine WBC 1-4 /HPF (0-4) Urine Squamous Epithelial Cells Few /LPF Urine Amorphous Sediment Present /HPF Urine Bacteria 0 /HPF (0-FEW) Urine Mucus Marked /LPF Test 02/18/19 04:25 White Blood Count 21.2 x10^3/uL (4.0-11.0) Red Blood Count 2.91 x10^6/uL (4.30-5.70) Hemoglobin 8.9 g/dL (13.0-17.5) Hematocrit 27.2 % (39.0-53.0) Mean Corpuscular Volume 93 fL (79-100) Mean Corpuscular Hemoglobin 30 pg (25-35) Mean Corpuscular Hemoglobin Concent 33 g/dL (31-37) Red Cell Distribution Width 14.7 % (11.5-14.5) Platelet Count 186 x10^3/uL (140-400) Neutrophils (%) (Auto) 90 % (31-73) Lymphocytes (%) (Auto) 3 % (24-48) Monocytes (%) (Auto) 6 % (0-9) Eosinophils (%) (Auto) 0 % (0-3) Basophils (%) (Auto) 0 % (0-3) Neutrophils # (Auto) 19.1 x10^3uL (1.8-7.7) Lymphocytes # (Auto) 0.7 x10^3/uL (1.0-4.8) Monocytes # (Auto) 1.3 x10^3/uL (0.0-1.1) Eosinophils # (Auto) 0.0 x10^3/uL (0.0-0.7) Basophils # (Auto) 0.0 x10^3/uL (0.0-0.2) Sodium Level 140 mmol/L (136-145) Potassium Level 4.3 mmol/L (3.5-5.1) Chloride Level 106 mmol/L (98-107) Carbon Dioxide Level 24 mmol/L (21-32) Anion Gap 10 (6-14) Blood Urea Nitrogen 32 mg/dL (8-26) Creatinine 1.5 mg/dL (0.7-1.3) Estimated GFR (Cockcroft-Gault) 44.7 Glucose Level 133 mg/dL (70-99) Calcium Level 8.5 mg/dL (8.5-10.1) Laboratory Tests Test 02/17/19 15:15 02/17/19 18:15 02/17/19 18:55 02/18/19 04:25 Lactic Acid Level 2.1 mmol/L (0.4-2.0) 1.3 mmol/L (0.4-2.0) Calcium Level 8.8 mg/dL (8.5-10.1) 8.5 mg/dL (8.5-10.1) Magnesium Level 2.3 mg/dL (1.8-2.4) Urine Collection Type Unknown Urine Color Sofia Urine Clarity Cloudy Urine pH 5.5 Urine Specific [place] >=1.030 Urine Protein 100 mg/dL (NEG-TRACE) Urine Glucose (UA) Negative mg/dL (NEG) Urine Ketones (Stick) Trace mg/dL (NEG) Urine Blood Trace (NEG) Urine Nitrite Negative (NEG) Urine Bilirubin Small (NEG) Urine Urobilinogen Dipstick 1.0 mg/dL (0.2 mg/dL) Urine Leukocyte Esterase Trace (NEG) Urine RBC 3-5 /HPF (0-2) Urine WBC 1-4 /HPF (0-4) Urine Squamous Epithelial Cells Few /LPF Urine Amorphous Sediment Present /HPF Urine Bacteria 0 /HPF (0-FEW) Urine Mucus Marked /LPF White Blood Count 21.2 x10^3/uL (4.0-11.0) Red Blood Count 2.91 x10^6/uL (4.30-5.70) Hemoglobin 8.9 g/dL (13.0-17.5) Hematocrit 27.2 % (39.0-53.0) Mean Corpuscular Volume 93 fL (79-100) Mean Corpuscular Hemoglobin 30 pg (25-35) Mean Corpuscular Hemoglobin Concent 33 g/dL (31-37) Red Cell Distribution Width 14.7 % (11.5-14.5) Platelet Count 186 x10^3/uL (140-400) Neutrophils (%) (Auto) 90 % (31-73) Lymphocytes (%) (Auto) 3 % (24-48) Monocytes (%) (Auto) 6 % (0-9) Eosinophils (%) (Auto) 0 % (0-3) Basophils (%) (Auto) 0 % (0-3) Neutrophils # (Auto) 19.1 x10^3uL (1.8-7.7) Lymphocytes # (Auto) 0.7 x10^3/uL (1.0-4.8) Monocytes # (Auto) 1.3 x10^3/uL (0.0-1.1) Eosinophils # (Auto) 0.0 x10^3/uL (0.0-0.7) Basophils # (Auto) 0.0 x10^3/uL (0.0-0.2) Sodium Level 140 mmol/L (136-145) Potassium Level 4.3 mmol/L (3.5-5.1) Chloride Level 106 mmol/L (98-107) Carbon Dioxide Level 24 mmol/L (21-32) Anion Gap 10 (6-14) Blood Urea Nitrogen 32 mg/dL (8-26) Creatinine 1.5 mg/dL (0.7-1.3) Estimated GFR (Cockcroft-Gault) 44.7 Glucose Level 133 mg/dL (70-99) Medications Active Scripts Medications Dose Route/Sig Max Daily Dose Days Date Category Flomax (Tamsulosin Hcl) 0.4 Mg Cap.er.24h 0.4 Mg PO DAILY 02/13/19 Reported Clopidogrel (Clopidogrel Bisulfate) 75 Mg Tablet 75 Mg PO DAILY 02/13/19 Reported Aspirin 81 Mg Tab.chew 1 Tab PO DAILY 02/13/19 Reported Vitamin B-12 (Cyanocobalamin (Vitamin B-12)) 1,000 Mcg Tablet 1 Tab PO DAILY 12/25/18 Reported Metoprolol Succinate ( Xl ) (Metoprolol Succinate) 25 Mg Tab.er.24h 1 Tab PO DAILY 12/25/18 Reported Losartan Potassium 100 Mg Tablet 100 Mg PO DAILY 12/25/18 Reported Atorvastatin Calcium 40 Mg Tablet 40 Mg PO QHS 30 06/27/17 Rx Multivitamins (Multivitamin) 1 Each Tablet 1 Tab PO DAILY 08/12/15 Reported Vitamin D (Cholecalciferol (Vitamin D3)) 2,000 Unit Capsule 1 Cap PO DAILY 08/12/15 Reported Impression . IMPRESSION: 1. Expected hypoxemic respiratory failure. 2. Status post laparoscopic cholecystectomy with cholangiogram. 3. Status post exploratory laparotomy for hemoperitoneum on 02/14. 4. Abnormal x-ray compatible with atelectasis and effusion, suspect related to intra-abdominal inflammation and possible infection. 5. Leukocytosis. 6. History of cerebrovascular accident, hypertension 7. Hyperlipidemia. 8. Transient atrial fibrillation. Plan . 1. Continue current support with IV antibiotics. 2. Incentive spirometry. 3. No need for thoracentesis at this time, the pleural effusions are very small. 4. Diet per surgeon. 5. DVT and GI prophylaxis. UMA NARANJO MD Feb 18, 2019 09:24
[2019-02-18] MEDS: METOPROLOL SUCC 24HR ER 25 MG TAB.ER.24H. PO SCH (10:18)
[2019-02-18] MEDS: ONDANSETRON PF 4 MG/2 ML VIAL. IV PRN (10:20)
--- NOTE | 2019-02-18 12:41 | PDOC2 ---
CARDIAC CONSULT DATE OF CONSULT Date of Consult DATE: 02/18/19 TIME: 12:24 REASON FOR CONSULT Reason for Consult: New onset AFIB REFERRING PHYSICIAN Referring Physician: Dr. Engle SOURCE Source: Chart review, Patient HISTORY OF PRESENT ILLNESS HISTORY OF PRESENT ILLNESS This is an 83 yo male, with a history of cholelithiasis, acute cholecystitis s/p cholecystostomy tube placement in December, who presented for cholecystectomy. Postoperatively, patient went into AIFB with RVR overnight and was placed on Cardizem gtt, which prompted this consult. Patient denies any chest pain, palpitations, dizziness, diaphoresis, or nausea/vomiting. PAST MEDICAL HISTORY Past Medical History Cardiovascular: HTN, Hyperlipidemia, Other (PSVT) CENTRAL NERVOUS SYSTEM: CVA GI: GERD Hepatobiliary: cholelithiasis, acute cholecystitis Heme/Onc: No pertinent hx Renal/: Benign prostatic enlarg. PAST SURGICAL HISTORY Past Surgical History: Cholecystectomy, Hernia Repair, Other (prostatectomy ) FAMILY HISTORY Family History: Hypertension SOCIAL HISTORY Social History Smoke: No ALCOHOL: none Drugs: None Lives: with family CURRENT MEDICATIONS CURRENT MEDICATIONS Current Medications Medications (Trade) Dose Ordered Sig/Zane Route PRN Reason Start Time Stop Time Status Last Admin Dose Admin Sodium Chloride 1,000 ml @ 125 mls/hr Q8H IV 02/17/19 13:00 02/18/19 11:37 Clopidogrel Bisulfate (Plavix) 75 mg DAILY PO 02/17/19 14:00 02/18/19 09:16 Vitamin D (Vitamin D3) 2,000 unit DAILY PO 02/17/19 14:00 02/18/19 09:16 Multivitamins (Thera M Plus) 1 tab DAILY PO 02/17/19 14:00 02/18/19 09:16 Calcium Carbonate/ Glycine (Tums) 500 mg PRN AFTMEALHC PRN PO INDIGESTION 02/17/19 15:00 02/18/19 04:26 Acetaminophen (Tylenol) 650 mg PRN Q6HRS PRN PO fever 02/17/19 23:45 02/17/19 23:50 Sodium Chloride 500 ml @ 500 mls/hr 1X ONCE IV 02/18/19 00:00 02/18/19 00:59 DC 02/17/19 23:48 Diltiazem HCl 125 mg/Dextrose 125 ml @ 5 mls/hr CONT PRN IV SEE I/O RECORD 02/18/19 04:15 02/18/19 04:27 Linezolid/Dextrose 300 ml @ 300 mls/hr Q12HR IV 02/18/19 09:00 02/18/19 09:44 ALLERGIES ALLERGIES: Coded Allergies: iodine (Verified Allergy, Intermediate, Rash, 02/14/19) iron (Verified Allergy, Intermediate, Rash, 02/14/19) INJECTABLE iron dextran complex (Verified Allergy, Intermediate, Rash, 02/14/19) ROS Review of System 14 point ROS conducted with pertinent positives noted above in HPI. PHYSICAL EXAM General: Alert, Oriented X3, Cooperative, No acute distress HEENT: Atraumatic, Mucous membr. moist/pink Lungs: Clear to auscultation, Other (diminished bases) Heart: Other (IRRR; tele AFIB with controlled rate) Abdomen: Other (tenderness. Abdominal binder and NICOLAS drain intact) Extremities: Other (trace bialteral LE edema ) Skin: No rashes Neuro: Normal speech, Sensation intact Psych/Mental Status: Other (falt affect ) MUSCULOSKELETAL: Osteoarthritic changes both hands VITALS VITALS Vital Signs Date Time Temp Pulse Resp B/P (MAP) Pulse Ox O2 Delivery O2 Flow Rate FiO2 02/18/19 12:00 99.4 107 23 101/51 (68) 95 Nasal Cannula 3.0 99.4 LABS Lab: Laboratory Tests Test 02/17/19 15:15 02/17/19 18:15 02/17/19 18:55 02/18/19 04:25 Lactic Acid Level 2.1 mmol/L (0.4-2.0) 1.3 mmol/L (0.4-2.0) Calcium Level 8.8 mg/dL (8.5-10.1) 8.5 mg/dL (8.5-10.1) Magnesium Level 2.3 mg/dL (1.8-2.4) Urine Collection Type Unknown Urine Color Sofia Urine Clarity Cloudy Urine pH 5.5 Urine Specific [place] >=1.030 Urine Protein 100 mg/dL (NEG-TRACE) Urine Glucose (UA) Negative mg/dL (NEG) Urine Ketones (Stick) Trace mg/dL (NEG) Urine Blood Trace (NEG) Urine Nitrite Negative (NEG) Urine Bilirubin Small (NEG) Urine Urobilinogen Dipstick 1.0 mg/dL (0.2 mg/dL) Urine Leukocyte Esterase Trace (NEG) Urine RBC 3-5 /HPF (0-2) Urine WBC 1-4 /HPF (0-4) Urine Squamous Epithelial Cells Few /LPF Urine Amorphous Sediment Present /HPF Urine Bacteria 0 /HPF (0-FEW) Urine Mucus Marked /LPF White Blood Count 21.2 x10^3/uL (4.0-11.0) Red Blood Count 2.91 x10^6/uL (4.30-5.70) Hemoglobin 8.9 g/dL (13.0-17.5) Hematocrit 27.2 % (39.0-53.0) Mean Corpuscular Volume 93 fL (79-100) Mean Corpuscular Hemoglobin 30 pg (25-35) Mean Corpuscular Hemoglobin Concent 33 g/dL (31-37) Red Cell Distribution Width 14.7 % (11.5-14.5) Platelet Count 186 x10^3/uL (140-400) Neutrophils (%) (Auto) 90 % (31-73) Lymphocytes (%) (Auto) 3 % (24-48) Monocytes (%) (Auto) 6 % (0-9) Eosinophils (%) (Auto) 0 % (0-3) Basophils (%) (Auto) 0 % (0-3) Neutrophils # (Auto) 19.1 x10^3uL (1.8-7.7) Lymphocytes # (Auto) 0.7 x10^3/uL (1.0-4.8) Monocytes # (Auto) 1.3 x10^3/uL (0.0-1.1) Eosinophils # (Auto) 0.0 x10^3/uL (0.0-0.7) Basophils # (Auto) 0.0 x10^3/uL (0.0-0.2) Sodium Level 140 mmol/L (136-145) Potassium Level 4.3 mmol/L (3.5-5.1) Chloride Level 106 mmol/L (98-107) Carbon Dioxide Level 24 mmol/L (21-32) Anion Gap 10 (6-14) Blood Urea Nitrogen 32 mg/dL (8-26) Creatinine 1.5 mg/dL (0.7-1.3) Estimated GFR (Cockcroft-Gault) 44.7 Glucose Level 133 mg/dL (70-99) ECHOCARDIOGRAM ECHOCARDIOGRAM <Conclusion> The left ventricular systolic function is normal. The ejection fraction is 60-65%. There is normal LV segmental wall motion. Transmitral Doppler flow pattern is Grade I-abnormal relaxation pattern. Mild aortic regurgitation. Trace mitral regurgitation. Mild tricuspid regurgitation. There is no evidence of significant pericardial effusion. DATE: 12/26/18 0718 ASSESSMENT/PLAN ASSESSMENT/PLAN 1. Cholelithiasis s/p lap cholecystectomy 02/14/19 2. AFIB with RVR; new onset. rate controlled on Cardizem gtt. Echo 01/08 showed preserved LV systolic function. 3. Leukocytosis, lactic acidosis. Empiric antibiotic therapy 4. Hypertension; low normotensive 5. Hyperlipidemia; statin therapy 6. HERBER 7. H/o CVA; on Plavix 8. Anemia Recommendations Continue BB Start oral Cardizem and titrate off gtt as able. D/w primary fitter type bar and segment; add ASA for stroke prevention for now given anemia. [id number] score 5 correlating with a 7.2 % risk for stroke. Depending upon course of rhythm, will consider addition of OAC. Consider event monitor upon discharge. REBEKA GAINES APRN Feb 18, 2019 12:41
--- NOTE | 2019-02-18 14:09 | CARD ---
MR#: [id number] Date of Study: 02/18/2019 Ordering Physician: REBEKA GAINES, Referring Physician: KEESHA POLLACK Tech: Smita Dubose JAYESH APPROVED REPORT EXAM: LIMITED Two-dimensional and M-mode echocardiogram. Other Information Quality : Technically LimitedHR: 103bpm Rhythm : Atrial FibrillationTechnically limited study due to patient post op. INDICATION Atrial Fibrillation 2D DIMENSIONS Left Atrium(2D)4.9 (1.6-4.0cm)IVSd1.6 (0.7-1.1cm) LVDd4.5 (3.9-5.9cm)PWd1.2 (0.7-1.1cm) LVDs2.9 (2.5-4.0cm)FS (%) 36.0 % SV60.6 mlLVEF(%)65.8 (>50%) LEFT VENTRICLE The left ventricle is normal size. There is mild concentric left ventricular hypertrophy. The left ve ntricular systolic function is normal. The Ejection Fraction is 60-65%. There is normal LV segmental wall motion. RIGHT VENTRICLE The right ventricle is normal size. There is normal right ventricular wall thickness. The right ventr icular systolic function is normal. ATRIA The left atrium size is normal. The right atrium size is normal. The interatrial septum is intact wit h no evidence for an atrial septal defect or patent foramen ovale as noted on 2-D or Doppler imaging. GREAT VESSELS na PERICARDIAL EFFUSION There is no evidence of significant pericardial effusion. Critical Notification Critical Value: No <Conclusion> Limited echo to evaluate LV function. The left ventricular systolic function is normal. The Ejection Fraction is 60-65%. There is normal LV segmental wall motion. There is no evidence of significant pericardial effusion. Signed by : Hugo Luke, Electronically Approved : 02/18/2019 14:08:49
--- NOTE | 2019-02-18 15:06 | PATHOLOGY ---
[facility] Accession Number: [id number] . 01 Material submitted: . gallbladder - GALLBLADDER . 01 Clinical history: . Acute calculous cholecystitis . 02 Diagnosis: Gallbladder, laparoscopic cholecystectomy: - Cholelithiasis. - Acute and chronic cholecystitis with focally increased eosinophils. . (JPM:mm; 02/18/2019) [facility]/02/18/2019 . 02 Comment: There is no evidence of malignancy. . (JPM:mm; 02/18/2019) . 02 Electronically signed: . Kash Kamara MD, Pathologist NPI- [id number] . 01 Gross description: . Received in formalin labeled "eJ Malik Jr, gallbladder," is a ragged, disrupted gallbladder measuring 6.8 x 3.4 x 2.1 cm in greatest dimensions. The serosal surface is ragged and huerta-brown to hemorrhagic in appearance. A segment of blue, coiled plastic tubing is present at the possible infundibulum, measuring 9.1 cm in length by 0.3 cm in diameter. The specimen is previously opened near the fundal aspect, with a suture appearing to constrict the fundus from the remainder of the specimen. Opening the specimen reveals a granular, partially disrupted huerta-brown mucosa measuring 0.1 cm in thickness, with a gallbladder wall thickness of up to 0.8 cm. No polyps or nodules are identified grossly. Calculi are present that are granular and black in appearance, ranging from 0.1 to 0.4 cm in maximum dimension. House Worker sections of the possible infundibulum, body and fundus are submitted in cassette A1. ([facility]; 02/15/2019) XDC/XDC . 02 Pathologist provided ICD-10: K81.2 . 02 CPT . 189850 Specimen Comment: A courtesy copy of this report has been sent to Specimen Comment: [phone], . Specimen Comment: Report sent to / DR OMER Performed at: 01 [facility] [address] [facility] [address], [place] [id number] MD Randall Vuong MD Phone: [phone] Performed at: 02 [facility] [address] [place], [place] [id number] MD Kash Kamara MD Phone: [phone]
[2019-02-18] MEDS: ASPIRIN ENTERIC COATED 81 MG TABLET.DR. PO SCH (16:33)
[2019-02-18] MEDS: LACTOBACILLUS RHAMNOSUS GG 1 CAPSULE. PO SCH (22:19)
[2019-02-18] MEDS: ATORVASTATIN CALCIUM 40 MG TABLET. PO SCH (22:20)
[2019-02-19] VITALS (24 sets, daily range): BP systolic 72–149; BP diastolic 44–107
[2019-02-19] MEDS: PIPERACILLIN/TAZOBACTAM 3.375 GM in IV NORMAL SALINE 50ML 50 ML IV SCH ×5 (00:16→22:57)
--- NOTE | 2019-02-19 01:21 | CONS ---
DATE OF CONSULTATION: 02/18/2019 REQUESTING PHYSICIAN: Dr. Engle. REASON FOR CONSULTATION: Possible early sepsis. HISTORY OF PRESENT ILLNESS: This is an 83-year-old gentleman who came in with abdominal pain. The patient underwent laparoscopic cholecystectomy. The patient subsequently had a laparoscopic exploration done for possible hemoperitoneum. The patient has been in the ICU since then. The patient has had fever, leukocytosis, hence consultation. The patient is on Zosyn. The patient is alert, awake. He is on liquid diet. Has had some nausea. Denies any vomiting, denies any diarrhea, denies any chest pain, shortness of breath. He does have abdominal pain. Denies any headache or visual symptoms. PAST MEDICAL HISTORY: Positive for hypertension, hyperlipidemia, now cholecystectomy. SOCIAL HISTORY: Negative for smoking, alcohol, illicit drug use. ALLERGIES: LISTED ALLERGIC TO IODINE DYE AND IRON DEXTRAN. REVIEW OF SYSTEMS: As per HPI, all other systems reviewed are negative. CURRENT MEDICATIONS: As I mentioned, the patient is on Zosyn. PHYSICAL EXAMINATION: GENERAL: Alert, oriented gentleman, not in distress. VITAL SIGNS: Stable with a T-max 101.1. HEENT: Anicteric. NECK: Supple, no JVP, no lymphadenopathy. LUNGS: Clear. HEART: S1, S2 regular. ABDOMEN: Mildly diffusely tender, no rebound or guarding. No organomegaly appreciated. NICOLAS is in place. EXTREMITIES: No edema, cyanosis. SKIN: Unremarkable. NEUROLOGIC: The patient is alert, awake and appropriate. No focal neurologic deficit. LABORATORY DATA: White count is 21.2, hemoglobin 8.9, platelets are normal. BUN and creatinine is up to 32 and 1.5. Lactic acid was 2.1. Urinalysis unremarkable. Cultures for the urine and blood has been taken yesterday, they have been pending. Chest x-ray is showing atelectasis. IMPRESSION: 1. Fever. 2. Leukocytosis may have been partly related to the steroids that he got during surgery. 3. Status post cholecystectomy. 4. Hypertension. 5. Hyperlipidemia. 6. Atrial fibrillation. PLAN: Recommend continue Zosyn, add Zyvox, supportive care. We will follow the cultures, PT, OT and will continue to follow. Thank you very much, Dr. Engle, for giving me the opportunity to participate in this patient's care and Dr. Bueno. LORENA POWELL MD DR: HERO/genaro JOB#: [id number] / [id number]
[2019-02-19] MEDS ORDERED: ACETAMINOPHEN 650 MG/20.3 ML SOLUTION. PO PRN (01:45)
[2019-02-19] MEDS ORDERED: ACETAMINOPHEN 650 MG SUPP.RECT. PR PRN (02:15)
[2019-02-19] MEDS: ONDANSETRON PF 4 MG/2 ML VIAL. IV PRN (04:09)
[2019-02-19] MEDS: IV NORMAL SALINE 1000ML BAG 1,000 ML IV SCH ×3 (04:09→23:08)
[2019-02-19] MEDS ORDERED: NOREPINEPHRIN 8MG/250ML PREMIX 250 ML IV PRN (07:30)
[2019-02-19] MEDS ORDERED: DIGOXIN IV 500 MCG/2 ML AMPUL. IV ONE ×2 (07:30→23:00)
[2019-02-19] MEDS ORDERED: IV NORMAL SALINE 500ML BAG 500 ML IV ONE (07:30)
--- NOTE | 2019-02-19 07:42 | PDOC ---
Infectious Disease Note Subjective Subjective pt is vomiting with every time he eats ROS ROS no n/v/d/ Vital Sign Vital Signs Vital Signs Date Time Temp Pulse Resp B/P (MAP) Pulse Ox O2 Delivery O2 Flow Rate FiO2 02/19/19 06:00 133 21 84/49 (61) 97 Nasal Cannula 3.0 02/19/19 04:00 100.3 100.3 Physical Exam PHYSICAL EXAM GENERAL: Alert, oriented gentleman, not in distress. VITAL SIGNS: Stable HEENT: Anicteric. NECK: Supple, no JVP, no lymphadenopathy. LUNGS: Clear. HEART: S1, S2 regular. ABDOMEN: Mildly diffusely tender, no rebound or guarding. No organomegaly appreciated. NICOLAS is in place. EXTREMITIES: No edema, cyanosis. SKIN: Unremarkable. NEUROLOGIC: The patient is alert, awake and appropriate. No focal neurologic deficit. Labs Micro Microbiology 02/17/19 Blood Culture - Preliminary, Resulted NO GROWTH AFTER 1 DAY Objective Assessment Fever Leukocytosis S/P Cholecystectomy HERBER A fib Plan Plan of Care cont zosyn and zyvox supportive care up in chair/PT/OT may need ct chest, abd and pelvis will d/w LORENA Carson MD Feb 19, 2019 07:42
[2019-02-19 08:36] LABS: HEMATOCRIT 24.6 % (39.0-53.0); HEMOGLOBIN 7.8 g/dL (13.0-17.5); RED BLOOD COUNT 2.51 x10^6/uL (4.30-5.70); RED CELL DISTRIBUTION WIDTH 15.9 % (11.5-14.5); WHITE BLOOD COUNT 19.9 x10^3/uL (4.0-11.0)
[2019-02-19 08:59] LABS: CALCIUM 8.3 mg/dL (8.5-10.1); CREATININE 1.5 mg/dL (0.7-1.3); GFR 44.7; POTASSIUM 4.1 mmol/L (3.5-5.1)
[2019-02-19] MEDS: METOPROLOL SUCC 24HR ER 25 MG TAB.ER.24H. PO SCH (09:00)
[2019-02-19] MEDS: LOSARTAN POTASSIUM 50 MG TABLET. PO SCH (09:00)
[2019-02-19] MEDS: DOCUSATE SODIUM 100 MG CAPSULE. PO SCH ×2 (09:00→21:00)
--- NOTE | 2019-02-19 09:02 | PDOC ---
PROGRESS NOTES Chief Complaint Chief Complaint Assessment/Plan Status post lap cholecystectomy, 02/14/19 Postop status cyst/fulfills tachycardia tachypnea AK I VMN-creatinine 1.5 today from normal Sepsis - with fever and Leukocytosis, WBC 21 today from normal, started on empiric Zosyn, zyvox History CVA, hypertension, dyslipidemia and GERD on medication Atrial fibrillation with RVR Plan ICU, IV fluids 100 mL for now stop K containing IVF Recheck labs daily Increase cardizem GTT to 15mg/hr, so long as BP tolerates. Low threshold for low dose digoxin or amio if necessary PT OT when more able GI soft diet already on Increase nausea control Needs nutrition consult as poor intake still but sometimes expected postop in t his elderly DNR/DNI Discussed with at bedside in [facility] [employer] [facility] History of Present Illness History of Present Illness 83-year-old male who came in for flulike symptoms. He came from home with the . Was treated. But course remarkable for developing either cholelithiasis or cholecystitis and underwent laparoscopic cholecystectomy on 02/14/19 bu postop course was remarkable for bleeding around the NICOLAS drain and around the postop site that they had to redo him that same day but no exploratory laparoscopy done/needed. Taken to ICU for Afib with RVR on 02/17/19. He is on GI soft diet but with minimal intake. He is belching and c/o "reflux" symptoms and no appetite. Vomited all day yesterday. Cr still 1.5. Lactate was elevated, normalized after IVF. Still in afib on cardizem. Fever 100.5F and no BM, not passing flatus today. Plan: CT chest/abd/pelvis Schedule nausea control Vitals Vitals Vital Signs Date Time Temp Pulse Resp B/P (MAP) Pulse Ox O2 Delivery O2 Flow Rate FiO2 02/19/19 08:00 118 16 92/51 (65) 94 Nasal Cannula 3.0 02/19/19 07:00 99.4 99.4 Physical Exam Physical Exam GENERAL: Alert, oriented gentleman, not in distress. VITAL SIGNS: Stable HEENT: Anicteric. NECK: Supple, no JVP, no lymphadenopathy. LUNGS: Clear. HEART: S1, S2 regular. ABDOMEN: Mildly diffusely tender, no rebound or guarding. No organomegaly appreciated. NICOLAS is in place. EXTREMITIES: No edema, cyanosis. SKIN: Unremarkable. NEUROLOGIC: The patient is alert, awake and appropriate. No focal neurologic deficit. General: Alert, Oriented X3, Cooperative, No acute distress Heart: Other (IRRR; tele AFIB with controlled rate) Lungs: Clear Abdomen: Other (tenderness. Abdominal binder and NICOLAS drain intact) Extremities: Other (trace bialteral LE edema ) Skin: No rashes Labs LABS Laboratory Tests Test 02/19/19 08:17 White Blood Count 19.9 x10^3/uL (4.0-11.0) Red Blood Count 2.51 x10^6/uL (4.30-5.70) Hemoglobin 7.8 g/dL (13.0-17.5) Hematocrit 24.6 % (39.0-53.0) Mean Corpuscular Volume 98 fL (79-100) Mean Corpuscular Hemoglobin 31 pg (25-35) Mean Corpuscular Hemoglobin Concent 32 g/dL (31-37) Red Cell Distribution Width 15.9 % (11.5-14.5) Platelet Count 183 x10^3/uL (140-400) Comment Review of Relevant I have reviewed the following items timoteo (where applicable) has been applied. Labs Laboratory Tests Test 02/17/19 15:15 02/17/19 18:15 02/17/19 18:55 02/18/19 04:25 Lactic Acid Level 2.1 mmol/L (0.4-2.0) 1.3 mmol/L (0.4-2.0) Calcium Level 8.8 mg/dL (8.5-10.1) 8.5 mg/dL (8.5-10.1) Magnesium Level 2.3 mg/dL (1.8-2.4) Urine Collection Type Unknown Urine Color Sofia Urine Clarity Cloudy Urine pH 5.5 Urine Specific [place] >=1.030 Urine Protein 100 mg/dL (NEG-TRACE) Urine Glucose (UA) Negative mg/dL (NEG) Urine Ketones (Stick) Trace mg/dL (NEG) Urine Blood Trace (NEG) Urine Nitrite Negative (NEG) Urine Bilirubin Small (NEG) Urine Urobilinogen Dipstick 1.0 mg/dL (0.2 mg/dL) Urine Leukocyte Esterase Trace (NEG) Urine RBC 3-5 /HPF (0-2) Urine WBC 1-4 /HPF (0-4) Urine Squamous Epithelial Cells Few /LPF Urine Amorphous Sediment Present /HPF Urine Bacteria 0 /HPF (0-FEW) Urine Mucus Marked /LPF White Blood Count 21.2 x10^3/uL (4.0-11.0) Red Blood Count 2.91 x10^6/uL (4.30-5.70) Hemoglobin 8.9 g/dL (13.0-17.5) Hematocrit 27.2 % (39.0-53.0) Mean Corpuscular Volume 93 fL (79-100) Mean Corpuscular Hemoglobin 30 pg (25-35) Mean Corpuscular Hemoglobin Concent 33 g/dL (31-37) Red Cell Distribution Width 14.7 % (11.5-14.5) Platelet Count 186 x10^3/uL (140-400) Neutrophils (%) (Auto) 90 % (31-73) Lymphocytes (%) (Auto) 3 % (24-48) Monocytes (%) (Auto) 6 % (0-9) Eosinophils (%) (Auto) 0 % (0-3) Basophils (%) (Auto) 0 % (0-3) Neutrophils # (Auto) 19.1 x10^3uL (1.8-7.7) Lymphocytes # (Auto) 0.7 x10^3/uL (1.0-4.8) Monocytes # (Auto) 1.3 x10^3/uL (0.0-1.1) Eosinophils # (Auto) 0.0 x10^3/uL (0.0-0.7) Basophils # (Auto) 0.0 x10^3/uL (0.0-0.2) Sodium Level 140 mmol/L (136-145) Potassium Level 4.3 mmol/L (3.5-5.1) Chloride Level 106 mmol/L (98-107) Carbon Dioxide Level 24 mmol/L (21-32) Anion Gap 10 (6-14) Blood Urea Nitrogen 32 mg/dL (8-26) Creatinine 1.5 mg/dL (0.7-1.3) Estimated GFR (Cockcroft-Gault) 44.7 Glucose Level 133 mg/dL (70-99) Test 02/19/19 08:17 White Blood Count 19.9 x10^3/uL (4.0-11.0) Red Blood Count 2.51 x10^6/uL (4.30-5.70) Hemoglobin 7.8 g/dL (13.0-17.5) Hematocrit 24.6 % (39.0-53.0) Mean Corpuscular Volume 98 fL (79-100) Mean Corpuscular Hemoglobin 31 pg (25-35) Mean Corpuscular Hemoglobin Concent 32 g/dL (31-37) Red Cell Distribution Width 15.9 % (11.5-14.5) Platelet Count 183 x10^3/uL (140-400) Laboratory Tests Test 02/19/19 08:17 White Blood Count 19.9 x10^3/uL (4.0-11.0) Red Blood Count 2.51 x10^6/uL (4.30-5.70) Hemoglobin 7.8 g/dL (13.0-17.5) Hematocrit 24.6 % (39.0-53.0) Mean Corpuscular Volume 98 fL (79-100) Mean Corpuscular Hemoglobin 31 pg (25-35) Mean Corpuscular Hemoglobin Concent 32 g/dL (31-37) Red Cell Distribution Width 15.9 % (11.5-14.5) Platelet Count 183 x10^3/uL (140-400) Sodium Level 140 mmol/L (136-145) Potassium Level 4.1 mmol/L (3.5-5.1) Chloride Level 109 mmol/L (98-107) Carbon Dioxide Level 22 mmol/L (21-32) Anion Gap 9 (6-14) Blood Urea Nitrogen 35 mg/dL (8-26) Creatinine 1.5 mg/dL (0.7-1.3) Estimated GFR (Cockcroft-Gault) 44.7 Glucose Level 146 mg/dL (70-99) Calcium Level 8.3 mg/dL (8.5-10.1) Microbiology 02/17/19 Blood Culture - Preliminary, Resulted NO GROWTH AFTER 1 DAY Medications Current Medications Ondansetron HCl (Zofran) 4 mg PRN Q6HRS PRN IV NAUSEA/VOMITING; Start 02/14/19 at 07:00; Stop 02/14/19 at 20:00; Status DC Fentanyl Citrate (Fentanyl 2ml Vial) 25 mcg PRN Q5MIN PRN IV MILD PAIN Last administered on 02/14/19at 14:28; Start 02/14/19 at 07:00; Stop 02/14/19 at 20:00; Status DC Fentanyl Citrate (Fentanyl 2ml Vial) 50 mcg PRN Q5MIN PRN IV MODERATE TO SEVERE PAIN; Start 02/14/19 at 07:00; Stop 02/14/19 at 20:00; Status DC Morphine Sulfate (Morphine Sulfate) 1 mg PRN Q10MIN PRN IV SEVERE PAIN; Start 02/14/19 at 07:00; Stop 02/14/19 at 20:00; Status DC Ringer's Solution 1,000 ml @ 30 mls/hr Q24H IV Last administered on 02/14/19at 07:52; Start 02/14/19 at 07:00; Stop 02/14/19 at 18:59; Status DC Lidocaine HCl (Xylocaine-Mpf 1% 2ml Vial) 2 ml PRN 1X PRN ID PRIOR TO IV START; Start 02/14/19 at 07:00; Stop 02/14/19 at 20:00; Status DC Hydromorphone HCl (Dilaudid) 0.5 mg PRN Q10MIN PRN IV SEV PAIN, Second choice; Start 02/14/19 at 07:00; Stop 02/14/19 at 20:00; Status DC Prochlorperazine Edisylate (Compazine) 5 mg PACU PRN PRN IV NAUSEA, MRX1; Start 02/14/19 at 07:00; Stop 02/14/19 at 20:00; Status DC Cefazolin Sodium/ Dextrose 50 ml @ 100 mls/hr 1X PREOP PRN IV PRIOR TO PROCEDURE Last administered on 02/14/19at 11:21; Start 02/14/19 at 06:00; Stop 02/14/19 at 18:00; Status DC Propofol 20 ml @ As Directed STK-MED ONCE IV ; Start 02/14/19 at 08:17; Stop 02/14/19 at 08:18; Status DC Lidocaine HCl (Lidocaine Pf 2% Vial) 5 ml STK-MED ONCE .ROUTE ; Start 02/14/19 at 08:17; Stop 02/14/19 at 08:18; Status DC Ondansetron HCl (Zofran) 4 mg STK-MED ONCE .ROUTE ; Start 02/14/19 at 08:17; Stop 02/14/19 at 08:18; Status DC Dexamethasone Sodium Phosphate (Decadron) 4 mg STK-MED ONCE .ROUTE ; Start 02/14/19 at 08:17; Stop 02/14/19 at 08:18; Status DC Sevoflurane (Ultane) 60 ml STK-MED ONCE IH ; Start 02/14/19 at 08:17; Stop 02/14/19 at 08:18; Status DC Rocuronium [place] (Zemuron) 50 mg STK-MED ONCE .ROUTE ; Start 02/14/19 at 08:17; Stop 02/14/19 at 08:18; Status DC Fentanyl Citrate (Fentanyl 2ml Vial) 100 mcg STK-MED ONCE .ROUTE ; Start 02/14/19 at 08:39; Stop 02/14/19 at 08:40; Status DC Bupivacaine HCl/ Epinephrine Bitart (Sensorcain-Mpf Epi 0.5%-[id number]) 30 ml STK-MED ONCE .ROUTE Last administered on 02/14/19at 11:48; Start 02/14/19 at 10:01; Stop 02/14/19 at 11:02; Status DC Glucagon (Glucagen) 1 mg STK-MED ONCE .ROUTE ; Start 02/14/19 at 10:01; Stop 02/14/19 at 11:02; Status DC Iohexol (Omnipaque 300 Mg/ml) 100 ml STK-MED ONCE .ROUTE Last administered on 02/14/19at 11:48; Start 02/14/19 at 10:01; Stop 02/14/19 at 11:02; Status DC Cellulose (Surgicel Hemostat 4x8) 1 each STK-MED ONCE .ROUTE Last administered on 02/14/19at 13:12; Start 02/14/19 at 10:01; Stop 02/14/19 at 11:02; Status DC Cellulose (Surgicel Hemostat 4x8) 1 each STK-MED ONCE .ROUTE Last administered on 02/14/19at 13:31; Start 02/14/19 at 11:19; Stop 02/14/19 at 12:19; Status DC Famotidine (Pepcid Vial) 20 mg STK-MED ONCE .ROUTE ; Start 02/14/19 at 13:14; Stop 02/14/19 at 13:15; Status DC Diphenhydramine HCl (Benadryl) 50 mg STK-MED ONCE .ROUTE ; Start 02/14/19 at 13:14; Stop 02/14/19 at 13:15; Status DC Rocuronium [place] (Zemuron) 50 mg STK-MED ONCE .ROUTE ; Start 02/14/19 at 13:14; Stop 02/14/19 at 13:15; Status DC Fentanyl Citrate (Fentanyl 2ml Vial) 100 mcg STK-MED ONCE .ROUTE ; Start 02/14/19 at 13:15; Stop 02/14/19 at 13:16; Status DC Cellulose (Surgicel Hemostat 4x8) 1 each STK-MED ONCE .ROUTE ; Start 02/14/19 at 12:33; Stop 02/14/19 at 13:33; Status DC Diphenhydramine HCl (Benadryl) 25 mg PRN Q6HRS PRN PO ITCHING; Start 02/14/19 a t 14:00 Sodium Chloride (Normal Saline Flush) 3 ml QSHIFT PRN IV AFTER MEDS AND BLOOD DRAWS; Start 02/14/19 at 14:00 Potassium Chloride/Sodium Chloride 1,000 ml @ 80 mls/hr [id number] IV Last administered on 02/17/19at 06:02; Start 02/14/19 at 15:00; Stop 02/17/19 at 12:54; Status DC Dextrose (Dextrose 50%-Water Syringe) 12.5 gm PRN Q15MIN PRN IV SEE COMMENTS; Start 02/14/19 at 14:00 Acetaminophen/ Hydrocodone Bitart (Lortab 5/325) 1 tab PRN Q4HRS PRN PO MILD PAIN Last administered on 02/17/19at 08:35; Start 02/14/19 at 14:00 Acetaminophen/ Hydrocodone Bitart (Lortab 5/325) 2 tab PRN Q4HRS PRN PO MODERATE PAIN, SEVERE PAIN Last administered on 02/17/19at 03:22; Start 02/14/19 at 14:00 Hydromorphone HCl (Dilaudid) 1 mg PRN Q4HRS PRN IV PAIN Last administered on 02/15/19at 17:46; Start 02/14/19 at 14:00 Docusate Sodium (Colace) 100 mg BID PO Last administered on 02/18/19 22:19; Start 02/14/19 at 21:00 Ondansetron HCl (Zofran) 4 mg PRN Q6HRS PRN IV NAUESA, 1ST CHOICE Last administered on 02/19/19 04:09; Start 02/14/19 at 14:00 Atorvastatin Calcium (Lipitor) 40 mg QHS PO Last administered on 02/18/19 22:20; Start 02/14/19 at 21:00 Cyanocobalamin (Vitamin B-12) 1,000 mcg DAILY PO Last administered on 02/18/19 09:16; Start 02/15/19 at 09:00 Metoprolol Succinate (Toprol Xl) 25 mg DAILY PO Last administered on 02/18/19 10:18; Start 02/15/19 at 09:00 Tamsulosin HCl (Flomax) 0.4 mg DAILY PO Last administered on 02/18/19 09:16; Start 02/15/19 at 09:00 Losartan Potassium (Cozaar) 100 mg DAILY PO Last administered on 02/17/19 13:22; Start 02/15/19 at 09:00 Fentanyl Citrate (Fentanyl 2ml Vial) 100 mcg STK-MED ONCE .ROUTE ; Start at 14:26; Stop 02/14/19 at 14:27; Status DC Bupivacaine HCl/ Epinephrine Bitart (Sensorcain-Mpf Epi 0.5%-1:[id number]) 30 ml STK -MED ONCE .ROUTE ; Start 02/14/19 at 15:13; Stop 02/14/19 at 16:14; Status DC Bacitracin (Bacitracin) 50,000 unit STK-MED ONCE IRR Last administered on 02/14/19 16:49; Start 02/14/19 at 15:14; Stop 02/14/19 at 16:15; Status DC Sodium Chloride (SODIUM CHLORIDE 20ml) 20 ml STK-MED ONCE IJ ; Start 02/14/19 at 15:15; Stop 02/14/19 at 16:15; Status DC Cellulose (Surgicel Hemostat 4x8) 3 each STK-MED ONCE TP Last administered on 4/25/19at 16:49; Start 02/14/19 at 16:49; Stop 02/14/19 at 16:55; Status DC Cellulose (Surgicel Hemostat 4x8) 4 each 1X ONCE TP ; Start 02/14/19 at 17:15; Stop 02/14/19 at 17:16; Status DC Cefazolin Sodium/ Dextrose (Ancef 2gm Premix) 2 gm STK-MED ONCE IV ; Start 02/14/19 at 11:00; Stop 02/15/19 at 13:02; Status DC Piperacillin Sod/ Tazobactam Sod 3.375 gm/Sodium Chloride 50 ml @ 100 mls/hr Q6HRS IV Last administered on 02/19/19 06:04; Start 02/17/19 at 12:00 Sodium Chloride 1,000 ml @ 125 mls/hr Q8H IV Last administered on 02/19/19 04:09; Start 02/17/19 at 13:00 Clopidogrel Bisulfate (Plavix) 75 mg DAILY PO Last administered on 02/18/19 09:16; Start 02/17/19 at 14:00 Vitamin D (Vitamin D3) 2,000 unit DAILY PO Last administered on 02/18/19 09:16; Start 02/17/19 at 14:00 Multivitamins (Thera M Plus) 1 tab DAILY PO Last administered on 02/18/19 09:16; Start 02/17/19 at 14:00 Calcium Carbonate/ Glycine (Tums) 500 mg PRN AFTMEALHC PRN PO INDIGESTION Last administered on 02/18/19at 22:25; Start 02/17/19 at 15:00 Acetaminophen (Tylenol) 650 mg PRN Q6HRS PRN PO fever Last administered on 02/17/19at 23:50; Start 02/17/19 at 23:45 Sodium Chloride 500 ml @ 500 mls/hr 1X ONCE IV Last administered on 02/17/19at 23:48; Start 02/18/19 at 00:00; Stop 02/18/19 at 00:59; Status DC Diltiazem HCl 125 mg/Dextrose 125 ml @ 5 mls/hr CONT PRN IV SEE I/O RECORD Last administered on 02/18/19at 04:27; Start 02/18/19 at 04:15; Stop 02/18/19 at 16:09; Status DC Linezolid/Dextrose 300 ml @ 300 mls/hr Q12HR IV Last administered on 02/18/19at 22:20; Start 02/18/19 at 09:00 Lactobacillus Rhamnosus (Culturelle) 1 cap BID PO Last administered on 02/18/19at 22:19; Start 02/18/19 at 21:00 Diltiazem HCl (Cardizem 24hr Cd) 240 mg DAILY PO Last administered on 02/18/19at 12:43; Start 02/18/19 at 12:30 Aspirin (Ecotrin) 81 mg DAILYWBKFT PO Last administered on 02/18/19at 16:33; Start 02/18/19 at 16:15 Acetaminophen (Tylenol) 650 mg PRN Q6HRS PRN PO MILD PAIN / TEMP; Start 02/19/19 at 01:45 Acetaminophen (Tylenol Supp) 650 mg PRN Q6HRS PRN [place] MILD PAIN / TEMP Last administered on 02/19/19at 02:18; Start 02/19/19 at 02:15 Norepinephrine Bitartrate 250 ml @ 1.875 mls/ hr CONT PRN IV SEE I/O RECORD; Start 02/19/19 at 07:30 Digoxin (Lanoxin) 250 mcg 1X ONCE IV Last administered on 02/19/19at 07:36; Start 02/19/19 at 07:30; Stop 02/19/19 at 07:31; Status DC Sodium Chloride 500 ml @ 500 mls/hr 1X ONCE IV Last administered on 02/19/19at 07:35; Start 02/19/19 at 07:30; Stop 02/19/19 at 08:29; Status DC Active Scripts Active Atorvastatin Calcium 40 Mg Tablet 40 Mg PO QHS 30 Days Reported Flomax (Tamsulosin Hcl) 0.4 Mg Cap.er.24h 0.4 Mg PO DAILY Clopidogrel (Clopidogrel Bisulfate) 75 Mg Tablet 75 Mg PO DAILY Aspirin 81 Mg Tab.chew 1 Tab PO DAILY Vitamin B-12 (Cyanocobalamin (Vitamin B-12)) 1,000 Mcg Tablet 1 Tab PO DAILY Metoprolol Succinate ( Xl ) (Metoprolol Succinate) 25 Mg Tab.er.24h 1 Tab PO DAILY Losartan Potassium 100 Mg Tablet 100 Mg PO DAILY Multivitamins (Multivitamin) 1 Each Tablet 1 Tab PO DAILY Vitamin D (Cholecalciferol (Vitamin D3)) 2,000 Unit Capsule 1 Cap PO DAILY Vitals/I & O Vital Sign - Last 24 Hours 02/18/19 02/18/19 02/18/19 02/18/19 10:00 10:18 11:00 12:00 Pulse 118 139 132 Resp 24 23 B/P (MAP) 139/66 (90) 152/64 117/49 (71) Pulse Ox 95 93 O2 Delivery Nasal Cannula Nasal Cannula Nasal Cannula O2 Flow Rate 3.0 3.0 3.0 02/18/19 02/18/19 02/18/19 02/18/19 12:00 12:43 13:00 14:00 Temp 99.4 99.4 Pulse 107 95 98 98 Resp 19 B/P (MAP) 101/51 (68) 100/52 117/46 (69) 116/55 (75) Pulse Ox 95 95 96 O2 Delivery Nasal Cannula Nasal Cannula Nasal Cannula O2 Flow Rate 3.0 3.0 3.0 02/18/19 02/18/19 02/18/19 02/18/19 15:00 16:00 16:00 17:00 Temp 97.7 97.7 Pulse 94 88 102 Resp 18 18 19 B/P (MAP) 111/54 (73) 110/58 (75) 112/48 (69) Pulse Ox 96 96 97 O2 Delivery Nasal Cannula Nasal Cannula Nasal Cannula Nasal Cannula O2 Flow Rate 3.0 3.0 3.0 3.0 02/18/19 02/18/19 02/18/19 02/18/19 18:00 19:00 20:00 20:00 Temp 98.9 98.9 Pulse 112 123 112 Resp 18 14 15 B/P (MAP) 106/56 (73) 97/69 (78) 119/55 (76) Pulse Ox 97 97 96 O2 Delivery Nasal Cannula Nasal Cannula Nasal Cannula Nasal Cannula O2 Flow Rate 3.0 3.0 3.0 3.0 02/18/19 02/18/19 02/18/19 02/19/19 21:00 22:00 23:00 00:00 Pulse 123 115 125 Resp 20 22 20 B/P (MAP) 126/63 (84) 91/41 (58) 97/54 (68) Pulse Ox 95 95 95 O2 Delivery Nasal Cannula Nasal Cannula Nasal Cannula Nasal Cannula O2 Flow Rate 3.0 3.0 3.0 3.0 02/19/19 02/19/19 02/19/19 02/19/19 00:01 01:00 02:00 03:00 Temp 100.5 100.5 Pulse 128 148 148 144 Resp 20 25 26 23 B/P (MAP) 106/58 (74) 136/107 (117) 136/64 (88) 87/48 (61) Pulse Ox 95 95 93 96 O2 Delivery Nasal Cannula Nasal Cannula Nasal Cannula Nasal Cannula O2 Flow Rate 3.0 3.0 3.0 3.0 02/19/19 02/19/19 02/19/19 02/19/19 04:00 04:00 05:00 06:00 Temp 100.3 100.3 Pulse 133 144 133 Resp 20 21 21 B/P (MAP) 80/45 (57) 87/46 (60) 84/49 (61) Pulse Ox 98 96 97 O2 Delivery Nasal Cannula Nasal Cannula Nasal Cannula Nasal Cannula O2 Flow Rate 3.0 3.0 3.0 3.0 02/19/19 02/19/19 02/19/19 07:00 07:36 08:00 Temp 99.4 99.4 Pulse 133 119 118 Resp 20 16 B/P (MAP) 72/50 (57) 84/47 92/51 (65) Pulse Ox 95 94 O2 Delivery Nasal Cannula Nasal Cannula O2 Flow Rate 3.0 3.0 Intake and Output 02/18/19 02/18/19 02/19/19 14:59 22:59 06:59 Intake Total 620 ml 2635 ml 2095 ml Output Total 430 ml 400 ml 250 ml Balance 190 ml 2235 ml 1845 ml Nutrition Consultation Dietary Evaluation: Recommendations by RD: Protein supplementation Comments: Continue w/GI soft diet at this time, honor food preferences, and provide snacks as requested REC Ensure TID Expected Outcomes/Goals: PO intake to meet >75% est needs Malnutrition Findings: Food and Nutrition Intake (Sev: <50% est energy req 5days Weight Status: Appropriate ABIGAIL LIMON MD Feb 19, 2019 09:02
--- NOTE | 2019-02-19 09:12 | PDOC ---
PULMONARY PROGRESS NOTES Subjective PT BETTER LESS SOA UP IN CHAIR Vitals Vital Signs Date Time Temp Pulse Resp B/P (MAP) Pulse Ox O2 Delivery O2 Flow Rate FiO2 02/19/19 08:00 118 16 92/51 (65) 94 Nasal Cannula 3.0 02/19/19 07:00 99.4 99.4 ROS: No Nausea, No Chest Pain, No Increase Cough General: Alert Lungs: Clear Cardiovascular: S1, S2 Abdomen: Soft Neuro Exam: Alert Extremities: No Edema Skin: Warm Labs Laboratory Tests Test 02/17/19 15:15 02/17/19 18:15 02/17/19 18:55 02/18/19 04:25 Lactic Acid Level 2.1 mmol/L (0.4-2.0) 1.3 mmol/L (0.4-2.0) Calcium Level 8.8 mg/dL (8.5-10.1) 8.5 mg/dL (8.5-10.1) Magnesium Level 2.3 mg/dL (1.8-2.4) Urine Collection Type Unknown Urine Color Sofia Urine Clarity Cloudy Urine pH 5.5 Urine Specific [place] >=1.030 Urine Protein 100 mg/dL (NEG-TRACE) Urine Glucose (UA) Negative mg/dL (NEG) Urine Ketones (Stick) Trace mg/dL (NEG) Urine Blood Trace (NEG) Urine Nitrite Negative (NEG) Urine Bilirubin Small (NEG) Urine Urobilinogen Dipstick 1.0 mg/dL (0.2 mg/dL) Urine Leukocyte Esterase Trace (NEG) Urine RBC 3-5 /HPF (0-2) Urine WBC 1-4 /HPF (0-4) Urine Squamous Epithelial Cells Few /LPF Urine Amorphous Sediment Present /HPF Urine Bacteria 0 /HPF (0-FEW) Urine Mucus Marked /LPF White Blood Count 21.2 x10^3/uL (4.0-11.0) Red Blood Count 2.91 x10^6/uL (4.30-5.70) Hemoglobin 8.9 g/dL (13.0-17.5) Hematocrit 27.2 % (39.0-53.0) Mean Corpuscular Volume 93 fL (79-100) Mean Corpuscular Hemoglobin 30 pg (25-35) Mean Corpuscular Hemoglobin Concent 33 g/dL (31-37) Red Cell Distribution Width 14.7 % (11.5-14.5) Platelet Count 186 x10^3/uL (140-400) Neutrophils (%) (Auto) 90 % (31-73) Lymphocytes (%) (Auto) 3 % (24-48) Monocytes (%) (Auto) 6 % (0-9) Eosinophils (%) (Auto) 0 % (0-3) Basophils (%) (Auto) 0 % (0-3) Neutrophils # (Auto) 19.1 x10^3uL (1.8-7.7) Lymphocytes # (Auto) 0.7 x10^3/uL (1.0-4.8) Monocytes # (Auto) 1.3 x10^3/uL (0.0-1.1) Eosinophils # (Auto) 0.0 x10^3/uL (0.0-0.7) Basophils # (Auto) 0.0 x10^3/uL (0.0-0.2) Sodium Level 140 mmol/L (136-145) Potassium Level 4.3 mmol/L (3.5-5.1) Chloride Level 106 mmol/L (98-107) Carbon Dioxide Level 24 mmol/L (21-32) Anion Gap 10 (6-14) Blood Urea Nitrogen 32 mg/dL (8-26) Creatinine 1.5 mg/dL (0.7-1.3) Estimated GFR (Cockcroft-Gault) 44.7 Glucose Level 133 mg/dL (70-99) Test 02/19/19 08:17 White Blood Count 19.9 x10^3/uL (4.0-11.0) Red Blood Count 2.51 x10^6/uL (4.30-5.70) Hemoglobin 7.8 g/dL (13.0-17.5) Hematocrit 24.6 % (39.0-53.0) Mean Corpuscular Volume 98 fL (79-100) Mean Corpuscular Hemoglobin 31 pg (25-35) Mean Corpuscular Hemoglobin Concent 32 g/dL (31-37) Red Cell Distribution Width 15.9 % (11.5-14.5) Platelet Count 183 x10^3/uL (140-400) Sodium Level 140 mmol/L (136-145) Potassium Level 4.1 mmol/L (3.5-5.1) Chloride Level 109 mmol/L (98-107) Carbon Dioxide Level 22 mmol/L (21-32) Anion Gap 9 (6-14) Blood Urea Nitrogen 35 mg/dL (8-26) Creatinine 1.5 mg/dL (0.7-1.3) Estimated GFR (Cockcroft-Gault) 44.7 Glucose Level 146 mg/dL (70-99) Calcium Level 8.3 mg/dL (8.5-10.1) Laboratory Tests Test 02/19/19 08:17 White Blood Count 19.9 x10^3/uL (4.0-11.0) Red Blood Count 2.51 x10^6/uL (4.30-5.70) Hemoglobin 7.8 g/dL (13.0-17.5) Hematocrit 24.6 % (39.0-53.0) Mean Corpuscular Volume 98 fL (79-100) Mean Corpuscular Hemoglobin 31 pg (25-35) Mean Corpuscular Hemoglobin Concent 32 g/dL (31-37) Red Cell Distribution Width 15.9 % (11.5-14.5) Platelet Count 183 x10^3/uL (140-400) Sodium Level 140 mmol/L (136-145) Potassium Level 4.1 mmol/L (3.5-5.1) Chloride Level 109 mmol/L (98-107) Carbon Dioxide Level 22 mmol/L (21-32) Anion Gap 9 (6-14) Blood Urea Nitrogen 35 mg/dL (8-26) Creatinine 1.5 mg/dL (0.7-1.3) Estimated GFR (Cockcroft-Gault) 44.7 Glucose Level 146 mg/dL (70-99) Calcium Level 8.3 mg/dL (8.5-10.1) Medications Active Scripts Medications Dose Route/Sig Max Daily Dose Days Date Category Flomax (Tamsulosin Hcl) 0.4 Mg Cap.er.24h 0.4 Mg PO DAILY 02/13/19 Reported Clopidogrel (Clopidogrel Bisulfate) 75 Mg Tablet 75 Mg PO DAILY 02/13/19 Reported Aspirin 81 Mg Tab.chew 1 Tab PO DAILY 02/13/19 Reported Vitamin B-12 (Cyanocobalamin (Vitamin B-12)) 1,000 Mcg Tablet 1 Tab PO DAILY 12/25/18 Reported Metoprolol Succinate ( Xl ) (Metoprolol Succinate) 25 Mg Tab.er.24h 1 Tab PO DAILY 12/25/18 Reported Losartan Potassium 100 Mg Tablet 100 Mg PO DAILY 12/25/18 Reported Atorvastatin Calcium 40 Mg Tablet 40 Mg PO QHS 30 06/27/17 Rx Multivitamins (Multivitamin) 1 Each Tablet 1 Tab PO DAILY 08/12/15 Reported Vitamin D (Cholecalciferol (Vitamin D3)) 2,000 Unit Capsule 1 Cap PO DAILY 08/12/15 Reported Impression . IMPRESSION: 1. Expected hypoxemic respiratory failure. 2. Status post laparoscopic cholecystectomy with cholangiogram. 3. Status post exploratory laparotomy for hemoperitoneum on 02/14. 4. Abnormal x-ray compatible with atelectasis and effusion, suspect related to intra-abdominal inflammation and possible infection. 5. Leukocytosis. 6. History of cerebrovascular accident, hypertension 7. Hyperlipidemia. 8. Transient atrial fibrillation. Plan . IS PT PULLING A2 LITERS UP TO CHAIR PT IV ANTIBX MONITOR CXR UMA NARANJO MD Feb 19, 2019 09:12
[2019-02-19] MEDS: LACTOBACILLUS RHAMNOSUS GG 1 CAPSULE. PO SCH ×2 (09:31→21:00)
[2019-02-19] MEDS: CHOLECALCIFEROL (VITAMIN D3) 1,000 UNIT TABLET PO SCH (09:31)
[2019-02-19] MEDS: TAMSULOSIN 0.4 MG CAP.ER.24H. PO SCH (09:31)
[2019-02-19] MEDS: CLOPIDOGREL BISULFATE 75 MG TABLET PO SCH (09:31)
[2019-02-19] MEDS: MULTIVITAMIN with MINERAL TABLET. PO SCH (09:31)
[2019-02-19] MEDS: CYANOCOBALAMIN (VITAMIN B-12) 1,000 MCG TABLET. PO SCH (09:32)
[2019-02-19] MEDS: ASPIRIN ENTERIC COATED 81 MG TABLET.DR. PO SCH (09:32)
[2019-02-19] MEDS: ONDANSETRON PF 4 MG/2 ML VIAL. IV SCH ×2 (11:54→17:48)
--- NOTE | 2019-02-19 12:48 | PDOC ---
SURGICAL PROGRESS NOTE Subjective up to bedside chair had a rough night some nausea and vomiting large loose stool earlier daughter in room Vital Signs Vital Signs Date Time Temp Pulse Resp B/P (MAP) Pulse Ox O2 Delivery O2 Flow Rate FiO2 02/19/19 12:00 Room Air 02/19/19 12:00 98.8 88 22 99/44 (62) 92 98.8 02/19/19 08:00 3.0 I&O Intake and Output 02/19/19 07:00 Intake Total 5350 ml Output Total 985 ml Balance 4365 ml Intake Oral 1670 ml IV Total 3680 ml Output Urine Total 805 ml Drainage Total 180 ml PATIENT HAS A MIRELES: Yes (accurate I and O) General: Alert, No acute distress Abdomen: Soft, Other (NICOLAS with serosanguineous output) Labs Laboratory Tests Test 02/17/19 15:15 02/17/19 18:15 02/17/19 18:55 02/18/19 04:25 Lactic Acid Level 2.1 mmol/L (0.4-2.0) 1.3 mmol/L (0.4-2.0) Calcium Level 8.8 mg/dL (8.5-10.1) 8.5 mg/dL (8.5-10.1) Magnesium Level 2.3 mg/dL (1.8-2.4) Urine Collection Type Unknown Urine Color Sofia Urine Clarity Cloudy Urine pH 5.5 Urine Specific [place] >=1.030 Urine Protein 100 mg/dL (NEG-TRACE) Urine Glucose (UA) Negative mg/dL (NEG) Urine Ketones (Stick) Trace mg/dL (NEG) Urine Blood Trace (NEG) Urine Nitrite Negative (NEG) Urine Bilirubin Small (NEG) Urine Urobilinogen Dipstick 1.0 mg/dL (0.2 mg/dL) Urine Leukocyte Esterase Trace (NEG) Urine RBC 3-5 /HPF (0-2) Urine WBC 1-4 /HPF (0-4) Urine Squamous Epithelial Cells Few /LPF Urine Amorphous Sediment Present /HPF Urine Bacteria 0 /HPF (0-FEW) Urine Mucus Marked /LPF White Blood Count 21.2 x10^3/uL (4.0-11.0) Red Blood Count 2.91 x10^6/uL (4.30-5.70) Hemoglobin 8.9 g/dL (13.0-17.5) Hematocrit 27.2 % (39.0-53.0) Mean Corpuscular Volume 93 fL (79-100) Mean Corpuscular Hemoglobin 30 pg (25-35) Mean Corpuscular Hemoglobin Concent 33 g/dL (31-37) Red Cell Distribution Width 14.7 % (11.5-14.5) Platelet Count 186 x10^3/uL (140-400) Neutrophils (%) (Auto) 90 % (31-73) Lymphocytes (%) (Auto) 3 % (24-48) Monocytes (%) (Auto) 6 % (0-9) Eosinophils (%) (Auto) 0 % (0-3) Basophils (%) (Auto) 0 % (0-3) Neutrophils # (Auto) 19.1 x10^3uL (1.8-7.7) Lymphocytes # (Auto) 0.7 x10^3/uL (1.0-4.8) Monocytes # (Auto) 1.3 x10^3/uL (0.0-1.1) Eosinophils # (Auto) 0.0 x10^3/uL (0.0-0.7) Basophils # (Auto) 0.0 x10^3/uL (0.0-0.2) Sodium Level 140 mmol/L (136-145) Potassium Level 4.3 mmol/L (3.5-5.1) Chloride Level 106 mmol/L (98-107) Carbon Dioxide Level 24 mmol/L (21-32) Anion Gap 10 (6-14) Blood Urea Nitrogen 32 mg/dL (8-26) Creatinine 1.5 mg/dL (0.7-1.3) Estimated GFR (Cockcroft-Gault) 44.7 Glucose Level 133 mg/dL (70-99) Test 02/19/19 08:17 White Blood Count 19.9 x10^3/uL (4.0-11.0) Red Blood Count 2.51 x10^6/uL (4.30-5.70) Hemoglobin 7.8 g/dL (13.0-17.5) Hematocrit 24.6 % (39.0-53.0) Mean Corpuscular Volume 98 fL (79-100) Mean Corpuscular Hemoglobin 31 pg (25-35) Mean Corpuscular Hemoglobin Concent 32 g/dL (31-37) Red Cell Distribution Width 15.9 % (11.5-14.5) Platelet Count 183 x10^3/uL (140-400) Sodium Level 140 mmol/L (136-145) Potassium Level 4.1 mmol/L (3.5-5.1) Chloride Level 109 mmol/L (98-107) Carbon Dioxide Level 22 mmol/L (21-32) Anion Gap 9 (6-14) Blood Urea Nitrogen 35 mg/dL (8-26) Creatinine 1.5 mg/dL (0.7-1.3) Estimated GFR (Cockcroft-Gault) 44.7 Glucose Level 146 mg/dL (70-99) Calcium Level 8.3 mg/dL (8.5-10.1) Laboratory Tests Test 02/19/19 08:17 White Blood Count 19.9 x10^3/uL (4.0-11.0) Red Blood Count 2.51 x10^6/uL (4.30-5.70) Hemoglobin 7.8 g/dL (13.0-17.5) Hematocrit 24.6 % (39.0-53.0) Mean Corpuscular Volume 98 fL (79-100) Mean Corpuscular Hemoglobin 31 pg (25-35) Mean Corpuscular Hemoglobin Concent 32 g/dL (31-37) Red Cell Distribution Width 15.9 % (11.5-14.5) Platelet Count 183 x10^3/uL (140-400) Sodium Level 140 mmol/L (136-145) Potassium Level 4.1 mmol/L (3.5-5.1) Chloride Level 109 mmol/L (98-107) Carbon Dioxide Level 22 mmol/L (21-32) Anion Gap 9 (6-14) Blood Urea Nitrogen 35 mg/dL (8-26) Creatinine 1.5 mg/dL (0.7-1.3) Estimated GFR (Cockcroft-Gault) 44.7 Glucose Level 146 mg/dL (70-99) Calcium Level 8.3 mg/dL (8.5-10.1) Hb noted Assessment/Plan POD 5 l/s karie with post op bleeding new onset AF acute blood loss anemia d/w Dr Rollins he ordered CT chest/abdomen/pelvis KEESHA POLLACK MD Feb 19, 2019 12:48
--- NOTE | 2019-02-19 14:15 | NUR ---
SW following. Discussed with RN, pt likely ready for discharge in a few days. PT/OT recommending SNU. SW left voicemail for pt's , Jocy ([phone]) to discuss facilities for placement. SW will continue to follow.
--- NOTE | 2019-02-19 14:22 | PDOC2 ---
GI CONSULT Reason For Consult: swallowing difficulty, h/o esophageal stretching HPI: HPI: 83 y/o male who we saw int [facility] in 12/2018 - admitted w/ influenza, had abnormal GB imaging, and cholecystostomy was placed. Now is s/p cholecystectomy on 02/14 and also s/p l/s exploration for hemoperitoneum (oozing from liver bed). Followed by cardiology for new A Fib and followed by ID for fever and leukocytosis. He's currently alone in his room and not the best historian. GI asked to see re: abnormal swallowing. Reviewed w/ RN - "coughs and vomits" when he eats (GI soft diet) and tells her "it gets stuck." Oral contrast for CT came up today. She says family reports previous esophageal dilation. He tells me pills, solid food, and water get stuck "down there." I asked if it hurt to swallow - he says "pretty much." I asked when these symptoms began - he said "since I got here I guess" but then later indicates this is more of a chronic problem that has recently worsened. He's not sure if past dilations helped and the timing of these is unclear. Per office records, had EGD w/ Dr. Watson in 2003 w/ esophagitis, gastritis, and duodenal ulcer. Biopsies were positive for H. pylori. Also had a colonoscopy w/ Dr. Villalta in 2009 w/ adenomatous and hyperplastic polyps, moderate diverticulosis in transverse, descending, and sigmoid colon, and internal hemorrhoids. Can see in appCREAR he had an EGD (for "gastric ulcer") and colonoscopy w/ Dr. Lara in 2014 - cannot view procedure reports, but colonoscopy pathology shows adenomatous polyps in ascending, transverse, and descending colon. Past consult indicates some h/o constipation - RN reports large stool today and no obvious GI bleeding. No liver or pancreas history. Home meds do not include PPI and he's not sure if he takes anything GI-cronin "except for soda." H/o CVA on Plavix, now also on ASA. 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 PMH: PMH: per chart - A Fib, HTN, HLD, CVA, BPH, skin cancer cataract removal, inguinal hernia repair, prostatectomy, cholecystostomy, cholecystectomy FH: Family History: No pertinent hx Social History: Smoke: No ALCOHOL: none Drugs: None ROS: A bit difficult to obtain. GEN: +fatigue CV: Denies chest pain RESP: Denies shortness of air GI: Per HPI Vitals: Vitals: Vital Signs Date Time Temp Pulse Resp B/P (MAP) Pulse Ox O2 Delivery O2 Flow Rate FiO2 02/19/19 13:30 106 17 122/56 (78) 92 Room Air 02/19/19 12:00 98.8 98.8 02/19/19 08:00 3.0 Labs: Labs: Laboratory Tests Test 02/19/19 08:17 White Blood Count 19.9 x10^3/uL (4.0-11.0) Red Blood Count 2.51 x10^6/uL (4.30-5.70) Hemoglobin 7.8 g/dL (13.0-17.5) Hematocrit 24.6 % (39.0-53.0) Mean Corpuscular Volume 98 fL (79-100) Mean Corpuscular Hemoglobin 31 pg (25-35) Mean Corpuscular Hemoglobin Concent 32 g/dL (31-37) Red Cell Distribution Width 15.9 % (11.5-14.5) Platelet Count 183 x10^3/uL (140-400) Sodium Level 140 mmol/L (136-145) Potassium Level 4.1 mmol/L (3.5-5.1) Chloride Level 109 mmol/L (98-107) Carbon Dioxide Level 22 mmol/L (21-32) Anion Gap 9 (6-14) Blood Urea Nitrogen 35 mg/dL (8-26) Creatinine 1.5 mg/dL (0.7-1.3) Estimated GFR (Cockcroft-Gault) 44.7 Glucose Level 146 mg/dL (70-99) Calcium Level 8.3 mg/dL (8.5-10.1) BLOOD CULTURE Preliminary NO GROWTH AFTER 1 DAY Diagnosis: Gallbladder, laparoscopic cholecystectomy: - Cholelithiasis. - Acute and chronic cholecystitis with focally increased eosinophils. Allergies: Coded Allergies: iodine (Verified Allergy, Intermediate, Rash, 02/14/19) iron (Verified Allergy, Intermediate, Rash, 02/14/19) INJECTABLE iron dextran complex (Verified Allergy, Intermediate, Rash, 02/14/19) Medications: Current Medications Medications (Trade) Dose Ordered Sig/Zane Route PRN Reason Start Time Stop Time Status Last Admin Dose Admin Lactobacillus Rhamnosus (Culturelle) 1 cap BID PO 02/18/19 21:00 02/19/19 09:31 Aspirin (Ecotrin) 81 mg DAILYWBKFT PO 02/18/19 16:15 02/19/19 09:32 Acetaminophen (Tylenol Supp) 650 mg PRN Q6HRS PRN TN MILD PAIN / TEMP 02/19/19 02:15 02/19/19 02:18 Digoxin (Lanoxin) 250 mcg 1X ONCE IV 02/19/19 07:30 02/19/19 07:31 DC 02/19/19 07:36 Sodium Chloride 500 ml @ 500 mls/hr 1X ONCE IV 02/19/19 07:30 02/19/19 08:29 DC 02/19/19 07:35 Ondansetron HCl (Zofran) 4 mg Q6HRS IV 02/19/19 12:00 02/19/19 11:54 Imaging: Imaging: Chest/Abd/Pelv CT 02/19 pending Echocardiogram 02/18 <Conclusion> Limited echo to evaluate LV function. The left ventricular systolic function is normal. The Ejection Fraction is 60-65%. There is normal LV segmental wall motion. There is no evidence of significant pericardial effusion. CXR 02/17 Impression: 1. There are new small bilateral pleural effusions with adjacent bibasilar airspace opacity greater on the right. IOC 02/14 IMPRESSION: Fluoroscopic spot images demonstrate opacification of a dilated cystic duct and common bile duct. The common hepatic duct is not opacified. Ther e is mild opacification of the left intrahepatic duct. Contrast is not seen within the duodenum but this may be due to the [id number] cut off. Stricture at the distal common bile duct near the sphincter of Tommy is certainly possible. No common bile duct stone is evident. Note-this study was discussed with Dr. Jasson Bueno at 1:22 PM on February 14, 2019. He said that they saw contrast within the duodenum during real-time fluoroscopy. I talked to the x-ray technologist and these were the only 2 images that were saved. PE: GEN: NAD - up to chair HEENT: Atraumatic, PERRL LUNGS: NC HEART: irregular ABD: quiet, binder, NICOLAS drain EXTREMITY: trace edema SKIN: No rashes, no jaundice NEURO/PSYCH: appropriately answers a few questions though speaks slowly and pauses between words, drowsy A/P: A/P: S/p cholecystectomy and l/s exploration for hemoperitoneum Resp failure, new A Fib - on ASA Leukocytosis, post-op anemia, HERBER/?CKD ?dysphagia/odynophagia, ?vomiting H/o PUD, GERD CRC screen, h/o adenomatous polyps - UTD (2014) Diverticulosis, hemorrhoids H/o CVA - on Plavix -- Abnormal swallowing/vomiting w/ reported h/o esophageal dilation. Await CT. Add PPI - will order PO, can change to IV if unable to tolerate (and IV Protonix in short supply so would use IV Pepcid). ?esophagram ?[employer] [place] Feb 19, 2019 14:22
--- NOTE | 2019-02-19 15:02 | PDOC ---
CARDIO Progress Notes Date and Time Date of Service 02/19/2019 Time of Evaluation 1140 Subjective Subjective: No Chest Pain, No shortness of breath, No Palpitations, Other (feels better today) Vitals Vitals Vital Signs Date Time Temp Pulse Resp B/P (MAP) Pulse Ox O2 Delivery O2 Flow Rate FiO2 02/19/19 13:30 106 17 122/56 (78) 92 Room Air 02/19/19 12:00 98.8 98.8 02/19/19 08:00 3.0 Weight Weight [ ] Input and Output Intake and Output Intake and Output 02/19/19 07:00 Intake Total 5350 ml Output Total 985 ml Balance 4365 ml Intake Oral 1670 ml IV Total 3680 ml Output Urine Total 805 ml Drainage Total 180 ml Laboratory Labs Laboratory Tests Test 02/19/19 08:17 White Blood Count 19.9 x10^3/uL (4.0-11.0) Red Blood Count 2.51 x10^6/uL (4.30-5.70) Hemoglobin 7.8 g/dL (13.0-17.5) Hematocrit 24.6 % (39.0-53.0) Mean Corpuscular Volume 98 fL (79-100) Mean Corpuscular Hemoglobin 31 pg (25-35) Mean Corpuscular Hemoglobin Concent 32 g/dL (31-37) Red Cell Distribution Width 15.9 % (11.5-14.5) Platelet Count 183 x10^3/uL (140-400) Sodium Level 140 mmol/L (136-145) Potassium Level 4.1 mmol/L (3.5-5.1) Chloride Level 109 mmol/L (98-107) Carbon Dioxide Level 22 mmol/L (21-32) Anion Gap 9 (6-14) Blood Urea Nitrogen 35 mg/dL (8-26) Creatinine 1.5 mg/dL (0.7-1.3) Estimated GFR (Cockcroft-Gault) 44.7 Glucose Level 146 mg/dL (70-99) Calcium Level 8.3 mg/dL (8.5-10.1) Microbiology Micro Microbiology 02/17/19 Blood Culture - Preliminary, Resulted NO GROWTH AFTER 1 DAY Physical Exam HEENT: Neck Supple W Full Motion Chest: Symmetric LUNGS: Other (basilar crackles) Heart: irregularly irregular (AFIB) Abdomen: Other (S/P Lap karie, tender abd) Extremities: No Calf Tenderness, Other (1+ bilateral LE pitting edema) Neurology: alert, oriented, follow commands Assessment Assessment 1. Cholelithiasis s/p lap cholecystectomy 02/14/19 2. AFIB with RVR; new onset. HR 100-120. Off cardizem due to hypotension. EF and WM nml 3. Leukocytosis: ID following 4. Hypertension; marginal 5. Hyperlipidemia; statin therapy 6. HERBER: Cr stable at 1.5 7. H/o CVA; on Plavix 8. Postoperative anemia: Hgb 7.8, contributing to low BP. Recommendations Hold BB and cardizem for now. Dig x1 ASA for stroke prevention for now given anemia. [id number] score 5 correlating with a 7.2 % risk for stroke. Depending upon course of rhythm, will consider addition of OAC. Consider event monitor upon discharge. supportive care DON BRASHER APRN Feb 19, 2019 15:02
[2019-02-19] MEDS: PANTOPRAZOLE 40 MG TABLET.DR. PO SCH (16:56)
--- NOTE | 2019-02-19 17:19 | RAD ---
Examination: CT of the chest abdomen pelvis without contrast HISTORY: History of fever, recent lap cholecystectomy TECHNIQUE: Axial CT images of the chest abdomen pelvis were performed without contrast. Coronal and sagittal reformats are performed. COMPARISON: 12/29/2018 Exposure: One or more of the following individualized dose reduction techniques were utilized for this examination: 1. Automated exposure control 2. Adjustment of the mA and/or kV according to patient size 3. Use of iterative reconstruction technique FINDINGS: Mild cardiomegaly. Coronary artery calcifications. Trace pericardial effusion. Few prominent mediastinal lymph nodes identified the largest measuring 2 cm in transverse dimension. Moderate right and small left pleural effusion. Moderate bibasilar lung consolidation likely atelectasis or infiltrates. Volume loss of the right middle lobe of the lung with consolidation. Punctate foci of free air identified in the right upper quadrant of the abdomen with moderate fat stranding in the right upper quadrant of the abdomen. There is drain tubing identified in the right upper quadrant of the abdomen in the gallbladder fossa region. Cholecystectomy clips are evident. There is a air fluid collection identified in the gallbladder fossa region measuring 8.2 x 4.7 cm. The stomach is mildly distended. The visualized pancreas grossly appears unremarkable. The small bowel is nondilated. Mild thickened appearance of the wall of the ascending colon, transverse, descending colon. Few sigmoid colon diverticulosis identified. Fong catheter identified in the urinary bladder. Small amount of air identified within the urinary bladder. Multiple cystic structures identified in the left renal pelvis region likely parapelvic cysts. Moderate aortic atherosclerosis. Small amount of free fluid identified in the pelvis. Moderate degenerative changes thoracic lumbar spine. Mild aneurysmal change of the abdomen aorta measuring 3 cm. Impression: 1. There is a air/ fluid collection identified in the gallbladder fossa region measuring 8.2 x 4.7 cm. Differential includes abscess or focal biloma, if there has been a recent cholecystectomy. A HIDA scan may be helpful. A drain tubing is identified in the gallbladder fossa region. 2. Punctate foci of air identified in the right upper quadrant of the abdomen with surrounding inflammatory fat stranding probably secondary to recent surgery. Correlate clinically. 3. Bibasilar lung consolidation changes likely pneumonia or atelectasis with collapse and consolidation of the right middle lobe of the lung. Bilateral pleural effusions , right greater than left. 4. Mild thickened appearance of the wall of the colon throughout could be due to nondistention or mild colitis. Electronically signed by: Mg Dillon MD (02/19/2019 4:16 PM) [id number]
[2019-02-19] MEDS: ATORVASTATIN CALCIUM 40 MG TABLET. PO SCH (21:00)
[2019-02-20] VITALS (24 sets, daily range): BP systolic 97–151; BP diastolic 53–84
[2019-02-20] MEDS: ONDANSETRON PF 4 MG/2 ML VIAL. IV SCH ×2 (00:30→05:43)
[2019-02-20 02:09] LABS: HEMOGLOBIN 8.1 g/dL (13.0-17.5); RED BLOOD COUNT 2.69 x10^6/uL (4.30-5.70); RED CELL DISTRIBUTION WIDTH 15.1 % (11.5-14.5); WHITE BLOOD COUNT 18.2 x10^3/uL (4.0-11.0)
[2019-02-20 02:16] LABS: CALCIUM 8.6 mg/dL (8.5-10.1); CREATININE 1.4 mg/dL (0.7-1.3); GFR 48.4; POTASSIUM 4.2 mmol/L (3.5-5.1)
[2019-02-20 02:21] LABS: ALBUMIN 1.5 g/dL (3.4-5.0); ALBUMIN/GLOBULIN RATIO 0.5 (1.0-1.7); TOTAL BILIRUBIN 0.7 mg/dL (0.2-1.0); TOTAL PROTEIN 4.8 g/dL (6.4-8.2)
[2019-02-20] MEDS: PIPERACILLIN/TAZOBACTAM 3.375 GM in IV NORMAL SALINE 50ML 50 ML IV SCH ×3 (05:43→17:37)
--- NOTE | 2019-02-20 06:31 | EKG ---
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 LEFTWARD AXIS NONSPECIFIC ST-T WAVE CHANGES. Electronically Signed On 02-22-2019 9:51:35 CDT by Tunde David
[2019-02-20] MEDS: PANTOPRAZOLE 40 MG TABLET.DR. PO SCH ×2 (07:52→16:30)
[2019-02-20] MEDS: ASPIRIN ENTERIC COATED 81 MG TABLET.DR. PO SCH (07:53)
[2019-02-20] MEDS: METOPROLOL SUCC 24HR ER 25 MG TAB.ER.24H. PO SCH (07:53)
[2019-02-20] MEDS: CLOPIDOGREL BISULFATE 75 MG TABLET PO SCH (07:53)
[2019-02-20] MEDS: IV NORMAL SALINE 1000ML BAG 1,000 ML IV SCH ×3 (07:54→17:36)
[2019-02-20] MEDS: DOCUSATE SODIUM 100 MG CAPSULE. PO SCH ×2 (07:56→21:00)
[2019-02-20] MEDS: LACTOBACILLUS RHAMNOSUS GG 1 CAPSULE. PO SCH ×2 (07:56→21:00)
[2019-02-20] MEDS: CHOLECALCIFEROL (VITAMIN D3) 1,000 UNIT TABLET PO SCH (07:57)
[2019-02-20] MEDS: TAMSULOSIN 0.4 MG CAP.ER.24H. PO SCH (07:57)
[2019-02-20] MEDS: MULTIVITAMIN with MINERAL TABLET. PO SCH (07:57)
[2019-02-20] MEDS: CYANOCOBALAMIN (VITAMIN B-12) 1,000 MCG TABLET. PO SCH (07:57)
--- NOTE | 2019-02-20 08:18 | PDOC ---
Infectious Disease Note Subjective Subjective still cont to be very nauseous ROS ROS no v/d/fever Vital Sign Vital Signs Vital Signs Date Time Temp Pulse Resp B/P (MAP) Pulse Ox O2 Delivery O2 Flow Rate FiO2 02/20/19 07:53 147 139/65 02/20/19 06:00 20 97 Nasal Cannula 2.0 02/20/19 04:00 98.9 98.9 Physical Exam PHYSICAL EXAM GENERAL: Alert, oriented gentleman, not in distress. VITAL SIGNS: Stable HEENT: Anicteric. NECK: Supple, no JVP, no lymphadenopathy. LUNGS: Clear. HEART: S1, S2 regular. ABDOMEN: Mildly diffusely tender, no rebound or guarding. No organomegaly appreciated. NICOLAS is in place. EXTREMITIES: No edema, cyanosis. SKIN: Unremarkable. NEUROLOGIC: The patient is alert, awake and appropriate. No focal neurologic deficit. Labs Lab Laboratory Tests Test 02/19/19 08:17 02/20/19 01:55 White Blood Count 19.9 x10^3/uL (4.0-11.0) 18.2 x10^3/uL (4.0-11.0) Red Blood Count 2.51 x10^6/uL (4.30-5.70) 2.69 x10^6/uL (4.30-5.70) Hemoglobin 7.8 g/dL (13.0-17.5) 8.1 g/dL (13.0-17.5) Hematocrit 24.6 % (39.0-53.0) 25.0 % (39.0-53.0) Mean Corpuscular Volume 98 fL (79-100) 93 fL (79-100) Mean Corpuscular Hemoglobin 31 pg (25-35) 30 pg (25-35) Mean Corpuscular Hemoglobin Concent 32 g/dL (31-37) 32 g/dL (31-37) Red Cell Distribution Width 15.9 % (11.5-14.5) 15.1 % (11.5-14.5) Platelet Count 183 x10^3/uL (140-400) 207 x10^3/uL (140-400) Sodium Level 140 mmol/L (136-145) 142 mmol/L (136-145) Potassium Level 4.1 mmol/L (3.5-5.1) 4.2 mmol/L (3.5-5.1) Chloride Level 109 mmol/L (98-107) 108 mmol/L (98-107) Carbon Dioxide Level 22 mmol/L (21-32) 25 mmol/L (21-32) Anion Gap 9 (6-14) 9 (6-14) Blood Urea Nitrogen 35 mg/dL (8-26) 35 mg/dL (8-26) Creatinine 1.5 mg/dL (0.7-1.3) 1.4 mg/dL (0.7-1.3) Estimated GFR (Cockcroft-Gault) 44.7 48.4 Glucose Level 146 mg/dL (70-99) 127 mg/dL (70-99) Calcium Level 8.3 mg/dL (8.5-10.1) 8.6 mg/dL (8.5-10.1) BUN/Creatinine Ratio 25 (6-20) Magnesium Level 2.1 mg/dL (1.8-2.4) Total Bilirubin 0.7 mg/dL (0.2-1.0) Aspartate Amino Transf (AST/SGOT) 51 U/L (15-37) Alanine Aminotransferase (ALT/SGPT) 37 U/L (16-63) Alkaline Phosphatase 141 U/L (46-116) Total Protein 4.8 g/dL (6.4-8.2) Albumin 1.5 g/dL (3.4-5.0) Albumin/Globulin Ratio 0.5 (1.0-1.7) Micro Microbiology 02/17/19 Blood Culture - Preliminary, Resulted NO GROWTH AFTER 1 DAY Objective Assessment 1. Fever. 2. Leukocytosis may have been partly related to the steroids that he got during surgery. 3. Status post cholecystectomy. 4. Hypertension. 5. Hyperlipidemia. 6. Atrial fibrillation. Plan Plan of Care cont zosyn and zyvox supportive care up in chair/PT/OT ct chest, abd and pelvis Impression: 1. There is a air/ fluid collection identified in the gallbladder fossa region measuring 8.2 x 4.7 cm. Differential includes abscess or focal biloma, if there has been a recent cholecystectomy. A HIDA scan may be helpful. A drain tubing is identified in the gallbladder fossa region. 2. Punctate foci of air identified in the right upper quadrant of the abdomen with surrounding inflammatory fat stranding probably secondary to recent surgery. Correlate clinically. 3. Bibasilar lung consolidation changes likely pneumonia or atelectasis with collapse and consolidation of the right middle lobe of the lung. Bilateral pleural effusions , right greater than left. 4. Mild thickened appearance of the wall of the colon throughout could be due to nondistention or mild colitis. drainage or HIDA as per LORENA Carson MD February 20, 2019 08:18
--- NOTE | 2019-02-20 08:57 | PDOC ---
PROGRESS NOTES Chief Complaint Chief Complaint Status post lap cholecystectomy, 02/14/19 Postop status cyst/fulfills tachycardia tachypnea AK I VMN-creatinine 1.5 today from normal Sepsis - with fever and Leukocytosis, WBC 21 today from normal, started on empiric Zosyn, zyvox History CVA, hypertension, dyslipidemia and GERD on medication Atrial fibrillation with RVR History of Present Illness History of Present Illness 83 yo M who came in for flulike symptoms. He came from home with the . Was treated. But course remarkable for developing either cholelithiasis or cholecystitis and underwent laparoscopic cholecystectomy on 02/14/19 bu postop course was remarkable for bleeding around the NICOLAS drain and around the postop site that they had to redo him that same day but no exploratory laparoscopy done/needed. Taken to ICU for Afib with RVR on 02/17/19. He is on GI soft diet but with minimal intake. He is belching and c/o "reflux" symptoms and no appetite. Vomited all yesterday. Cr 1.4. Lactate was elevated, normalized after IVF. Still in afib on oral cardizem and metoprolol. Fever 100.5F and no BM, not passing flatus today. CT abdomen shows possible biloma vs abscess near gallbladder fossa. Started having BM after initial morning rounds. Plan: Consider HIDA scan today to assess for biloma, d/w ID and GI Schedule nausea control Cont rate control meds oral Vitals Vitals Vital Signs Date Time Temp Pulse Resp B/P (MAP) Pulse Ox O2 Delivery O2 Flow Rate FiO2 02/20/19 08:00 98.5 115 19 151/74 (99) 98 Nasal Cannula 2.0 98.5 Physical Exam Physical Exam GENERAL: Alert, oriented gentleman, not in distress. VITAL SIGNS: Stable HEENT: Anicteric. NECK: Supple, no JVP, no lymphadenopathy. LUNGS: Clear. HEART: S1, S2 regular. ABDOMEN: Mildly diffusely tender, no rebound or guarding. No organomegaly appreciated. NICOLAS is in place. EXTREMITIES: No edema, cyanosis. SKIN: Unremarkable. NEUROLOGIC: The patient is alert, awake and appropriate. No focal neurologic deficit. General: Alert, No acute distress Heart: Other (IRRR; tele AFIB with controlled rate) Lungs: Clear Abdomen: Soft, Other (NICOLAS with serosanguineous output) Extremities: Other (trace bialteral LE edema ) Skin: No rashes Labs LABS Laboratory Tests Test 02/20/19 01:55 White Blood Count 18.2 x10^3/uL (4.0-11.0) Red Blood Count 2.69 x10^6/uL (4.30-5.70) Hemoglobin 8.1 g/dL (13.0-17.5) Hematocrit 25.0 % (39.0-53.0) Mean Corpuscular Volume 93 fL (79-100) Mean Corpuscular Hemoglobin 30 pg (25-35) Mean Corpuscular Hemoglobin Concent 32 g/dL (31-37) Red Cell Distribution Width 15.1 % (11.5-14.5) Platelet Count 207 x10^3/uL (140-400) Sodium Level 142 mmol/L (136-145) Potassium Level 4.2 mmol/L (3.5-5.1) Chloride Level 108 mmol/L (98-107) Carbon Dioxide Level 25 mmol/L (21-32) Anion Gap 9 (6-14) Blood Urea Nitrogen 35 mg/dL (8-26) Creatinine 1.4 mg/dL (0.7-1.3) Estimated GFR (Cockcroft-Gault) 48.4 BUN/Creatinine Ratio 25 (6-20) Glucose Level 127 mg/dL (70-99) Calcium Level 8.6 mg/dL (8.5-10.1) Magnesium Level 2.1 mg/dL (1.8-2.4) Total Bilirubin 0.7 mg/dL (0.2-1.0) Aspartate Amino Transf (AST/SGOT) 51 U/L (15-37) Alanine Aminotransferase (ALT/SGPT) 37 U/L (16-63) Alkaline Phosphatase 141 U/L (46-116) Total Protein 4.8 g/dL (6.4-8.2) Albumin 1.5 g/dL (3.4-5.0) Albumin/Globulin Ratio 0.5 (1.0-1.7) Comment Review of Relevant I have reviewed the following items timoteo (where applicable) has been applied. Labs Laboratory Tests Test 02/19/19 08:17 02/20/19 01:55 White Blood Count 19.9 x10^3/uL (4.0-11.0) 18.2 x10^3/uL (4.0-11.0) Red Blood Count 2.51 x10^6/uL (4.30-5.70) 2.69 x10^6/uL (4.30-5.70) Hemoglobin 7.8 g/dL (13.0-17.5) 8.1 g/dL (13.0-17.5) Hematocrit 24.6 % (39.0-53.0) 25.0 % (39.0-53.0) Mean Corpuscular Volume 98 fL (79-100) 93 fL (79-100) Mean Corpuscular Hemoglobin 31 pg (25-35) 30 pg (25-35) Mean Corpuscular Hemoglobin Concent 32 g/dL (31-37) 32 g/dL (31-37) Red Cell Distribution Width 15.9 % (11.5-14.5) 15.1 % (11.5-14.5) Platelet Count 183 x10^3/uL (140-400) 207 x10^3/uL (140-400) Sodium Level 140 mmol/L (136-145) 142 mmol/L (136-145) Potassium Level 4.1 mmol/L (3.5-5.1) 4.2 mmol/L (3.5-5.1) Chloride Level 109 mmol/L (98-107) 108 mmol/L (98-107) Carbon Dioxide Level 22 mmol/L (21-32) 25 mmol/L (21-32) Anion Gap 9 (6-14) 9 (6-14) Blood Urea Nitrogen 35 mg/dL (8-26) 35 mg/dL (8-26) Creatinine 1.5 mg/dL (0.7-1.3) 1.4 mg/dL (0.7-1.3) Estimated GFR (Cockcroft-Gault) 44.7 48.4 Glucose Level 146 mg/dL (70-99) 127 mg/dL (70-99) Calcium Level 8.3 mg/dL (8.5-10.1) 8.6 mg/dL (8.5-10.1) BUN/Creatinine Ratio 25 (6-20) Magnesium Level 2.1 mg/dL (1.8-2.4) Total Bilirubin 0.7 mg/dL (0.2-1.0) Aspartate Amino Transf (AST/SGOT) 51 U/L (15-37) Alanine Aminotransferase (ALT/SGPT) 37 U/L (16-63) Alkaline Phosphatase 141 U/L (46-116) Total Protein 4.8 g/dL (6.4-8.2) Albumin 1.5 g/dL (3.4-5.0) Albumin/Globulin Ratio 0.5 (1.0-1.7) Laboratory Tests Test 02/20/19 01:55 White Blood Count 18.2 x10^3/uL (4.0-11.0) Red Blood Count 2.69 x10^6/uL (4.30-5.70) Hemoglobin 8.1 g/dL (13.0-17.5) Hematocrit 25.0 % (39.0-53.0) Mean Corpuscular Volume 93 fL (79-100) Mean Corpuscular Hemoglobin 30 pg (25-35) Mean Corpuscular Hemoglobin Concent 32 g/dL (31-37) Red Cell Distribution Width 15.1 % (11.5-14.5) Platelet Count 207 x10^3/uL (140-400) Sodium Level 142 mmol/L (136-145) Potassium Level 4.2 mmol/L (3.5-5.1) Chloride Level 108 mmol/L (98-107) Carbon Dioxide Level 25 mmol/L (21-32) Anion Gap 9 (6-14) Blood Urea Nitrogen 35 mg/dL (8-26) Creatinine 1.4 mg/dL (0.7-1.3) Estimated GFR (Cockcroft-Gault) 48.4 BUN/Creatinine Ratio 25 (6-20) Glucose Level 127 mg/dL (70-99) Calcium Level 8.6 mg/dL (8.5-10.1) Magnesium Level 2.1 mg/dL (1.8-2.4) Total Bilirubin 0.7 mg/dL (0.2-1.0) Aspartate Amino Transf (AST/SGOT) 51 U/L (15-37) Alanine Aminotransferase (ALT/SGPT) 37 U/L (16-63) Alkaline Phosphatase 141 U/L (46-116) Total Protein 4.8 g/dL (6.4-8.2) Albumin 1.5 g/dL (3.4-5.0) Albumin/Globulin Ratio 0.5 (1.0-1.7) Microbiology 02/17/19 Blood Culture - Preliminary, Resulted NO GROWTH AFTER 2 DAYS 02/17/19 Urine Culture - Final, Complete 02/17/19 Urine Culture Result 1 (PETERSON) - Final, Complete Medications Current Medications Ondansetron HCl (Zofran) 4 mg PRN Q6HRS PRN IV NAUSEA/VOMITING; Start 02/14/19 at 07:00; Stop 02/14/19 at 20:00; Status DC Fentanyl Citrate (Fentanyl 2ml Vial) 25 mcg PRN Q5MIN PRN IV MILD PAIN Last administered on 02/14/19at 14:28; Start 02/14/19 at 07:00; Stop 02/14/19 at 20:00; Status DC Fentanyl Citrate (Fentanyl 2ml Vial) 50 mcg PRN Q5MIN PRN IV MODERATE TO SEVERE PAIN; Start 02/14/19 at 07:00; Stop 02/14/19 at 20:00; Status DC Morphine Sulfate (Morphine Sulfate) 1 mg PRN Q10MIN PRN IV SEVERE PAIN; Start 02/14/19 at 07:00; Stop 02/14/19 at 20:00; Status DC Ringer's Solution 1,000 ml @ 30 mls/hr Q24H IV Last administered on 02/14/19at 07:52; Start 02/14/19 at 07:00; Stop 02/14/19 at 18:59; Status DC Lidocaine HCl (Xylocaine-Mpf 1% 2ml Vial) 2 ml PRN 1X PRN ID PRIOR TO IV START; Start 02/14/19 at 07:00; Stop 02/14/19 at 20:00; Status DC Hydromorphone HCl (Dilaudid) 0.5 mg PRN Q10MIN PRN IV SEV PAIN, Second choice; Start 02/14/19 at 07:00; Stop 02/14/19 at 20:00; Status DC Prochlorperazine Edisylate (Compazine) 5 mg PACU PRN PRN IV NAUSEA, MRX1; Start 02/14/19 at 07:00; Stop 02/14/19 at 20:00; Status DC Cefazolin Sodium/ Dextrose 50 ml @ 100 mls/hr 1X PREOP PRN IV PRIOR TO PROCEDURE Last administered on 02/14/19at 11:21; Start 02/14/19 at 06:00; Stop at 18:00; Status DC Propofol 20 ml @ As Directed STK-MED ONCE IV ; Start 02/14/19 at 08:17; Stop 02/14/19 at 08:18; Status DC Lidocaine HCl (Lidocaine Pf 2% Vial) 5 ml STK-MED ONCE .ROUTE ; Start 02/14/19 at 08:17; Stop 02/14/19 at 08:18; Status DC Ondansetron HCl (Zofran) 4 mg STK-MED ONCE .ROUTE ; Start 02/14/19 at 08:17; Stop 02/14/19 at 08:18; Status DC Dexamethasone Sodium Phosphate (Decadron) 4 mg STK-MED ONCE .ROUTE ; Start 02/14/19 at 08:17; Stop 02/14/19 at 08:18; Status DC Sevoflurane (Ultane) 60 ml STK-MED ONCE IH ; Start 02/14/19 at 08:17; Stop 02/14/19 at 08:18; Status DC Rocuronium [place] (Zemuron) 50 mg STK-MED ONCE .ROUTE ; Start 02/14/19 at 08:17; Stop 02/14/19 at 08:18; Status DC Fentanyl Citrate (Fentanyl 2ml Vial) 100 mcg STK-MED ONCE .ROUTE ; Start 02/14/19 at 08:39; Stop 02/14/19 at 08:40; Status DC Bupivacaine HCl/ Epinephrine Bitart (Sensorcain-Mpf Epi 0.5%-1:[id number]) 30 ml STK-MED ONCE .ROUTE Last administered on 02/14/19at 11:48; Start 02/14/19 at 10:01; Stop 02/14/19 at 11:02; Status DC Glucagon (Glucagen) 1 mg STK-MED ONCE .ROUTE ; Start 02/14/19 at 10:01; Stop 02/14/19 at 11:02; Status DC Iohexol (Omnipaque 300 Mg/ml) 100 ml STK-MED ONCE .ROUTE Last administered on 02/14/19at 11:48; Start 02/14/19 at 10:01; Stop 02/14/19 at 11:02; Status DC Cellulose (Surgicel Hemostat 4x8) 1 each STK-MED ONCE .ROUTE Last administered on 02/14/19at 13:12; Start 02/14/19 at 10:01; Stop 02/14/19 at 11:02; Status DC Cellulose (Surgicel Hemostat 4x8) 1 each STK-MED ONCE .ROUTE Last administered on 02/14/19at 13:31; Start 02/14/19 at 11:19; Stop 02/14/19 at 12:19; Status DC Famotidine (Pepcid Vial) 20 mg STK-MED ONCE .ROUTE ; Start 02/14/19 at 13:14; Stop 02/14/19 at 13:15; Status DC Diphenhydramine HCl (Benadryl) 50 mg STK-MED ONCE .ROUTE ; Start 02/14/19 at 13:14; Stop 02/14/19 at 13:15; Status DC Rocuronium [place] (Zemuron) 50 mg STK-MED ONCE .ROUTE ; Start 02/14/19 at 13:14; Stop 02/14/19 at 13:15; Status DC Fentanyl Citrate (Fentanyl 2ml Vial) 100 mcg STK-MED ONCE .ROUTE ; Start 02/14/19 at 13:15; Stop 02/14/19 at 13:16; Status DC Cellulose (Surgicel Hemostat 4x8) 1 each STK-MED ONCE .ROUTE ; Start 02/14/19 at 12:33; Stop 02/14/19 at 13:33; Status DC Diphenhydramine HCl (Benadryl) 25 mg PRN Q6HRS PRN PO ITCHING; Start 02/14/19 at 14:00 Sodium Chloride (Normal Saline Flush) 3 ml QSHIFT PRN IV AFTER MEDS AND BLOOD DRAWS; Start 02/14/19 at 14:00 Potassium Chloride/Sodium Chloride 1,000 ml @ 80 mls/hr [id number] IV Last administered on 02/17/19at 06:02; Start 02/14/19 at 15:00; Stop 02/17/19 at 12:54; Status DC Dextrose (Dextrose 50%-Water Syringe) 12.5 gm PRN Q15MIN PRN IV SEE COMMENTS; Start 02/14/19 at 14:00 Acetaminophen/ Hydrocodone Bitart (Lortab 5/325) 1 tab PRN Q4HRS PRN PO MILD PAIN Last administered on 02/17/19 08:35; Start 02/14/19 at 14:00 Acetaminophen/ Hydrocodone Bitart (Lortab 5/325) 2 tab PRN Q4HRS PRN PO MODERATE PAIN, SEVERE PAIN Last administered on 02/17/19 03:22; Start 02/14/19 at 14:00 Hydromorphone HCl (Dilaudid) 1 mg PRN Q4HRS PRN IV PAIN Last administered on 02/15/19 17:46; Start 02/14/19 at 14:00 Docusate Sodium (Colace) 100 mg BID PO Last administered on 02/18/19 22:19; Start 02/14/19 at 21:00 Ondansetron HCl (Zofran) 4 mg PRN Q6HRS PRN IV NAUESA, 1ST CHOICE Last administered on 02/19/19 04:09; Start 02/14/19 at 14:00; Stop 02/19/19 at 09:05; Status DC Atorvastatin Calcium (Lipitor) 40 mg QHS PO Last administered on 02/18/19 22:20; Start 02/14/19 at 21:00 Cyanocobalamin (Vitamin B-12) 1,000 mcg DAILY PO Last administered on 02/19/19 09:32; Start 02/15/19 at 09:00 Metoprolol Succinate (Toprol Xl) 25 mg DAILY PO Last administered on 02/20/19 07:53; Start 02/15/19 at 09:00 Tamsulosin HCl (Flomax) 0.4 mg DAILY PO Last administered on 02/19/19 09:31; Start 02/15/19 at 09:00 Losartan Potassium (Cozaar) 100 mg DAILY PO Last administered on 02/17/19 13:22; Start 02/15/19 at 09:00 Fentanyl Citrate (Fentanyl 2ml Vial) 100 mcg STK-MED ONCE .ROUTE ; Start 02/14/19 at 14:26; Stop 02/14/19 at 14:27; Status DC Bupivacaine HCl/ Epinephrine Bitart (Sensorcain-Mpf Epi 0.5%-1:[id number]) 30 ml STK-MED ONCE .ROUTE ; Start 02/14/19 at 15:13; Stop 02/14/19 at 16:14; Status DC Bacitracin (Bacitracin) 50,000 unit STK-MED ONCE IRR Last administered on 02/14/19at 16:49; Start 02/14/19 at 15:14; Stop 02/14/19 at 16:15; Status DC Sodium Chloride (SODIUM CHLORIDE 20ml) 20 ml STK-MED ONCE IJ ; Start 02/14/19 at 15:15; Stop 02/14/19 at 16:15; Status DC Cellulose (Surgicel Hemostat 4x8) 3 each STK-MED ONCE TP Last administered on 02/14/19at 16:49; Start 02/14/19 at 16:49; Stop 02/14/19 at 16:55; Status DC Cellulose (Surgicel Hemostat 4x8) 4 each 1X ONCE TP ; Start 02/14/19 at 17:15; Stop 02/14/19 at 17:16; Status DC Cefazolin Sodium/ Dextrose (Ancef 2gm Premix) 2 gm STK-MED ONCE IV ; Start 02/14/19 at 11:00; Stop 02/15/19 at 13:02; Status DC Piperacillin Sod/ Tazobactam Sod 3.375 gm/Sodium Chloride 50 ml @ 100 mls/hr Q6HRS IV Last administered on 02/20/19at 05:43; Start 02/17/19 at 12:00 Sodium Chloride 1,000 ml @ 125 mls/hr Q8H IV Last administered on 02/20/19at 07:56; Start 02/17/19 at 13:00 Clopidogrel Bisulfate (Plavix) 75 mg DAILY PO Last administered on 02/20/19at 07:53; Start 02/17/19 at 14:00 Vitamin D (Vitamin D3) 2,000 unit DAILY PO Last administered on 02/19/19 09:31; Start 02/17/19 at 14:00 Multivitamins (Thera M Plus) 1 tab DAILY PO Last administered on 02/19/19at 09:31; Start 02/17/19 at 14:00 Calcium Carbonate/ Glycine (Tums) 500 mg PRN AFTMEALHC PRN PO INDIGESTION Last administered on 02/18/19at 22:25; Start 02/17/19 at 15:00 Acetaminophen (Tylenol) 650 mg PRN Q6HRS PRN PO fever Last administered on 02/17/19 23:50; Start 02/17/19 at 23:45 Sodium Chloride 500 ml @ 500 mls/hr 1X ONCE IV Last administered on 02/17/19at 23:48; Start 02/18/19 at 00:00; Stop 02/18/19 at 00:59; Status DC Diltiazem HCl 125 mg/Dextrose 125 ml @ 5 mls/hr CONT PRN IV SEE I/O RECORD Last administered on 02/18/19at 04:27; Start 02/18/19 at 04:15; Stop 02/18/19 at 16:09; Status DC Linezolid/Dextrose 300 ml @ 300 mls/hr Q12HR IV Last administered on 02/20/19at 07:55; Start 02/18/19 at 09:00 Lactobacillus Rhamnosus (Culturelle) 1 cap BID PO Last administered on 02/19/19at 09:31; Start 02/18/19 at 21:00 Diltiazem HCl (Cardizem 24hr Cd) 240 mg DAILY PO Last administered on 02/20/19 03:55; Start 02/18/19 at 12:30 Aspirin (Ecotrin) 81 mg DAILYWBKFT PO Last administered on 02/20/19at 07:53; Start 02/18/19 at 16:15 Acetaminophen (Tylenol) 650 mg PRN Q6HRS PRN PO MILD PAIN / TEMP; Start 02/19/19 at 01:45 Acetaminophen (Tylenol Supp) 650 mg PRN Q6HRS PRN [place] MILD PAIN / TEMP Last administered on 02/19/19at 02:18; Start 02/19/19 at 02:15 Norepinephrine Bitartrate 250 ml @ 1.875 mls/ hr CONT PRN IV SEE I/O RECORD; Start 02/19/19 at 07:30 Digoxin (Lanoxin) 250 mcg 1X ONCE IV Last administered on 02/19/19at 07:36; Start 02/19/19 at 07:30; Stop 02/19/19 at 07:31; Status DC Sodium Chloride 500 ml @ 500 mls/hr 1X ONCE IV Last administered on 02/19/19at 07:35; Start 02/19/19 at 07:30; Stop 02/19/19 at 08:29; Status DC Ondansetron HCl (Zofran) 4 mg Q6HRS IV Last administered on 02/20/19at 05:43; S tart 02/19/19 at 12:00 Pantoprazole Sodium (Protonix) 40 mg BIDAC PO Last administered on 02/20/19at 07:52; Start 02/19/19 at 16:30 Digoxin (Lanoxin) 250 mcg 1X ONCE IV Last administered on 02/19/19at 22:57; Start 02/19/19 at 23:00; Stop 02/19/19 at 23:01; Status DC Cellulose (Surgicel Hemostat 4x8) 1 each STK-MED ONCE .ROUTE ; Start 02/14/19 at 15:23; Stop 02/20/19 at 08:42; Status DC Cellulose (Surgicel Hemostat 4x8) 1 each STK-MED ONCE .ROUTE ; Start 02/14/19 at 15:50; Stop 02/20/19 at 08:42; Status DC Propofol 20 ml @ As Directed STK-MED ONCE IV ; Start 02/14/19 at 16:05; Stop 02/20/19 at 08:42; Status DC Famotidine (Pepcid Vial) 20 mg STK-MED ONCE .ROUTE ; Start 02/14/19 at 16:05; Stop 02/20/19 at 08:42; Status DC Lidocaine HCl (Lidocaine Pf 2% Vial) 5 ml STK-MED ONCE .ROUTE ; Start 02/14/19 at 16:05; Stop 02/20/19 at 08:42; Status DC Ondansetron HCl (Zofran) 4 mg STK-MED ONCE .ROUTE ; Start 02/14/19 at 16:05; Stop 02/20/19 at 08:42; Status DC Rocuronium [place] (Zemuron) 100 mg STK-MED ONCE .ROUTE ; Start 02/14/19 at 16:05; Stop 02/20/19 at 08:42; Status DC Fentanyl Citrate (Fentanyl 2ml Vial) 100 mcg STK-MED ONCE .ROUTE ; Start 02/14/19 at 16:06; Stop 02/20/19 at 08:42; Status DC Dexamethasone Sodium Phosphate (Decadron) 4 mg STK-MED ONCE .ROUTE ; Start 02/14/19 at 16:06; Stop 02/20/19 at 08:42; Status DC Neostigmine Methylsulfate (Neostigmine Methylsulfate) 5 mg STK-MED ONCE .ROUTE ; Start 02/14/19 at 17:26; Stop 02/20/19 at 08:42; Status DC Glycopyrrolate (Robinul) 1 mg STK-MED ONCE .ROUTE ; Start 02/14/19 at 17:26; Stop 02/20/19 at 08:42; Status DC Active Scripts Active Atorvastatin Calcium 40 Mg Tablet 40 Mg PO QHS 30 Days Reported Flomax (Tamsulosin Hcl) 0.4 Mg Cap.er.24h 0.4 Mg PO DAILY Clopidogrel (Clopidogrel Bisulfate) 75 Mg Tablet 75 Mg PO DAILY Aspirin 81 Mg Tab.chew 1 Tab PO DAILY Vitamin B-12 (Cyanocobalamin (Vitamin B-12)) 1,000 Mcg Tablet 1 Tab PO DAILY Metoprolol Succinate ( Xl ) (Metoprolol Succinate) 25 Mg Tab.er.24h 1 Tab PO DAILY Losartan Potassium 100 Mg Tablet 100 Mg PO DAILY Multivitamins (Multivitamin) 1 Each Tablet 1 Tab PO DAILY Vitamin D (Cholecalciferol (Vitamin D3)) 2,000 Unit Capsule 1 Cap PO DAILY Vitals/I & O Vital Sign - Last 24 Hours 02/19/19 02/19/19 02/19/19 02/19/19 09:00 09:00 09:00 10:00 Pulse 112 114 132 116 Resp 18 16 B/P (MAP) 96/49 96/49 101/60 (74) 106/54 (71) Pulse Ox 93 94 O2 Delivery Room Air Room Air 02/19/19 02/19/19 02/19/19 02/19/19 11:00 12:00 12:00 13:30 Temp 98.8 98.8 Pulse 110 88 106 Resp 17 22 17 B/P (MAP) 84/51 (62) 99/44 (62) 122/56 (78) Pulse Ox 94 92 92 O2 Delivery Room Air Room Air Room Air Room Air 02/19/19 02/19/19 02/19/19 02/19/19 14:00 15:00 16:00 16:00 Temp 98.8 98.8 Pulse 98 92 86 Resp 17 20 17 B/P (MAP) 100/48 (65) 110/54 (72) 95/47 (63) Pulse Ox 96 97 96 O2 Delivery Room Air Room Air Room Air Room Air 02/19/19 02/19/19 02/19/19 02/19/19 17:00 18:00 19:00 20:00 Pulse 121 104 106 Resp 18 19 B/P (MAP) 149/66 (93) 115/53 (73) 117/58 (77) Pulse Ox 96 97 97 O2 Delivery Room Air Room Air Nasal Cannula Nasal Cannula O2 Flow Rate 2.0 2.0 02/19/19 02/19/19 02/19/19 02/19/19 20:00 21:00 22:00 22:57 Temp 98.3 98.3 Pulse 112 119 120 137 Resp 18 B/P (MAP) 118/57 (77) 134/68 (90) 103/58 (73) 103/58 Pulse Ox 96 93 93 O2 Delivery Nasal Cannula Nasal Cannula Nasal Cannula O2 Flow Rate 2.0 2.0 2.0 02/19/19 02/20/19 02/20/19 02/20/19 23:00 00:00 00:01 01:00 Pulse 113 109 118 Resp 18 B/P (MAP) 123/67 (85) 144/66 (92) 150/71 (97) Pulse Ox 98 95 95 O2 Delivery Nasal Cannula Nasal Cannula Nasal Cannula Nasal Cannula O2 Flow Rate 2.0 2.0 2.0 2.0 02/20/19 02/20/19 02/20/19 02/20/19 02:00 03:00 03:55 04:00 Temp 98.9 98.9 Pulse 126 124 128 130 Resp 17 17 16 B/P (MAP) 136/68 (90) 127/70 (89) 127/70 144/70 (94) Pulse Ox 95 95 95 O2 Delivery Nasal Cannula Nasal Cannula Nasal Cannula O2 Flow Rate 2.0 2.0 2.0 02/20/19 02/20/19 02/20/19 02/20/19 04:00 05:00 06:00 07:00 Pulse 125 125 120 Resp 17 20 18 B/P (MAP) 119/58 (78) 150/84 (106) 139/65 (89) Pulse Ox 96 97 97 O2 Delivery Nasal Cannula Nasal Cannula Nasal Cannula Nasal Cannula O2 Flow Rate 2.0 2.0 2.0 2.0 02/20/19 02/20/19 07:53 08:00 Temp 98.5 98.5 Pulse 147 115 Resp 19 B/P (MAP) 139/65 151/74 (99) Pulse Ox 98 O2 Delivery Nasal Cannula O2 Flow Rate 2.0 Intake and Output 02/19/19 02/19/19 02/20/19 14:59 22:59 06:59 Intake Total 350 ml 1417 ml Output Total 218 ml 155 ml 235 ml Balance 132 ml 1262 ml -235 ml Images 1. There is a air/ fluid collection identified in the gallbladder fossa region measuring 8.2 x 4.7 cm. Differential includes abscess or focal biloma, if there has been a recent cholecystectomy. A HIDA scan may be helpful. A drain tubing is identified in the gallbladder fossa region. 2. Punctate foci of air identified in the right upper quadrant of the abdomen with surrounding inflammatory fat stranding probably secondary to recent surgery. Correlate clinically. 3. Bibasilar lung consolidation changes likely pneumonia or atelectasis with collapse and consolidation of the right middle lobe of the lung. Bilateral pleural effusions , right greater than left. 4. Mild thickened appearance of the wall of the colon throughout could be due to nondistention or mild colitis. Nutrition Consultation Dietary Evaluation: Recommendations by RD: Protein supplementation Comments: Continue w/GI soft diet at this time, honor food preferences, and provide snacks as requested REC Ensure TID Expected Outcomes/Goals: PO intake to meet >75% est needs Malnutrition Findings: Food and Nutrition Intake (Sev: <50% est energy req 5days Weight Status: Appropriate ABIGAIL LIMON MD February 20, 2019 08:57
[2019-02-20] MEDS: LOSARTAN POTASSIUM 50 MG TABLET. PO SCH (09:00)
--- NOTE | 2019-02-20 09:06 | PDOC ---
Subjective: Subjective: Not drinking much Ensure because "it won't go down" - "feels full" and points from throat to epigastrium. Asks for "a sleep aide." Can't remember if he vomited yesterday. RN asks what we're going to do about his esophagus because he's refusing to eat and drink. Kept pills down this morning. D/w ID - ?HIDA Objective: Vital Signs: Vital Signs Date Time Temp Pulse Resp B/P (MAP) Pulse Ox O2 Delivery O2 Flow Rate FiO2 02/20/19 08:00 98.5 115 19 151/74 (99) 98 Nasal Cannula 2.0 98.5 Labs: Laboratory Tests Test 02/20/19 01:55 White Blood Count 18.2 x10^3/uL Red Blood Count 2.69 x10^6/uL Hemoglobin 8.1 g/dL Hematocrit 25.0 % Mean Corpuscular Volume 93 fL Mean Corpuscular Hemoglobin 30 pg Mean Corpuscular Hemoglobin Concent 32 g/dL Red Cell Distribution Width 15.1 % Platelet Count 207 x10^3/uL Sodium Level 142 mmol/L Potassium Level 4.2 mmol/L Chloride Level 108 mmol/L Carbon Dioxide Level 25 mmol/L Anion Gap 9 Blood Urea Nitrogen 35 mg/dL Creatinine 1.4 mg/dL Estimated GFR (Cockcroft-Gault) 48.4 BUN/Creatinine Ratio 25 Glucose Level 127 mg/dL Calcium Level 8.6 mg/dL Magnesium Level 2.1 mg/dL Total Bilirubin 0.7 mg/dL Aspartate Amino Transf (AST/SGOT) 51 U/L Alanine Aminotransferase (ALT/SGPT) 37 U/L Alkaline Phosphatase 141 U/L Total Protein 4.8 g/dL Albumin 1.5 g/dL Albumin/Globulin Ratio 0.5 Imaging: C/A/P CT Impression: 1. There is a air/ fluid collection identified in the gallbladder fossa region measuring 8.2 x 4.7 cm. Differential includes abscess or focal biloma, if there has been a recent cholecystectomy. A HIDA scan may be helpful. A drain tubing is identified in the gallbladder fossa region. 2. Punctate foci of air identified in the right upper quadrant of the abdomen with surrounding inflammatory fat stranding probably secondary to recent surgery. Correlate clinically. 3. Bibasilar lung consolidation changes likely pneumonia or atelectasis with collapse and consolidation of the right middle lobe of the lung. Bilateral pleural effusions , right greater than left. 4. Mild thickened appearance of the wall of the colon throughout could be due to nondistention or mild colitis. PE: GEN: NAD LUNGS: NC HEART: tachycardic ABD: minimal serosang material in [place] NEURO/PSYCH: poor historian A/P: S/p cholecystectomy and l/s exploration for hemoperitoneum - interval CT as above Resp failure, new A Fib, post-op anemia Dysphagia/globus H/o PUD, GERD/?Reyes's -- Need to review CT and any 'scope records w/ Dr. Morgan. MARU HOLCOMB February 20, 2019 09:05
--- NOTE | 2019-02-20 09:57 | NUR ---
SS following up with discharge planning. PT/OT recommending prison unit. SS met with pt and pt reported that he wants to go home. SS left a message with pt's spouse. SS contacted pt's daughter, Nandini, . Pt's daughter reported that pt's spouse could not care for pt if he fell and was agreeable to prison unit. Pt's daughter reported that family was satisfied with [facility] in recent stay and requested that referral be sent to [facility]. SS phoned and faxed referral to [facility], ; fax [phone].
[2019-02-20] MEDS ORDERED: ONDANSETRON PF 4 MG/2 ML VIAL. IV PRN (10:54)
--- NOTE | 2019-02-20 12:11 | PDOC ---
SURGICAL PROGRESS NOTE Subjective seen this AM up to chair asking for a sleep aid Vital Signs Vital Signs Date Time Temp Pulse Resp B/P (MAP) Pulse Ox O2 Delivery O2 Flow Rate FiO2 02/20/19 11:00 131 23 132/73 (92) 97 Room Air 02/20/19 09:00 2.0 02/20/19 08:00 98.5 98.5 I&O Intake and Output 02/20/19 06:59 Intake Total 1767 ml Output Total 608 ml Balance 1159 ml IV Total 1767 ml Output Urine Total 605 ml Stool Total 3 ml # Bowel Movements 4 PATIENT HAS A MIRELES: Yes (accurate I and O) General: Alert, No acute distress Abdomen: Soft, Other (NICOLAS with serosanguineous output) Labs Laboratory Tests Test 02/19/19 08:17 02/20/19 01:55 White Blood Count 19.9 x10^3/uL (4.0-11.0) 18.2 x10^3/uL (4.0-11.0) Red Blood Count 2.51 x10^6/uL (4.30-5.70) 2.69 x10^6/uL (4.30-5.70) Hemoglobin 7.8 g/dL (13.0-17.5) 8.1 g/dL (13.0-17.5) Hematocrit 24.6 % (39.0-53.0) 25.0 % (39.0-53.0) Mean Corpuscular Volume 98 fL (79-100) 93 fL (79-100) Mean Corpuscular Hemoglobin 31 pg (25-35) 30 pg (25-35) Mean Corpuscular Hemoglobin Concent 32 g/dL (31-37) 32 g/dL (31-37) Red Cell Distribution Width 15.9 % (11.5-14.5) 15.1 % (11.5-14.5) Platelet Count 183 x10^3/uL (140-400) 207 x10^3/uL (140-400) Sodium Level 140 mmol/L (136-145) 142 mmol/L (136-145) Potassium Level 4.1 mmol/L (3.5-5.1) 4.2 mmol/L (3.5-5.1) Chloride Level 109 mmol/L (98-107) 108 mmol/L (98-107) Carbon Dioxide Level 22 mmol/L (21-32) 25 mmol/L (21-32) Anion Gap 9 (6-14) 9 (6-14) Blood Urea Nitrogen 35 mg/dL (8-26) 35 mg/dL (8-26) Creatinine 1.5 mg/dL (0.7-1.3) 1.4 mg/dL (0.7-1.3) Estimated GFR (Cockcroft-Gault) 44.7 48.4 Glucose Level 146 mg/dL (70-99) 127 mg/dL (70-99) Calcium Level 8.3 mg/dL (8.5-10.1) 8.6 mg/dL (8.5-10.1) BUN/Creatinine Ratio 25 (6-20) Magnesium Level 2.1 mg/dL (1.8-2.4) Total Bilirubin 0.7 mg/dL (0.2-1.0) Aspartate Amino Transf (AST/SGOT) 51 U/L (15-37) Alanine Aminotransferase (ALT/SGPT) 37 U/L (16-63) Alkaline Phosphatase 141 U/L (46-116) Total Protein 4.8 g/dL (6.4-8.2) Albumin 1.5 g/dL (3.4-5.0) Albumin/Globulin Ratio 0.5 (1.0-1.7) Laboratory Tests Test 02/20/19 01:55 White Blood Count 18.2 x10^3/uL (4.0-11.0) Red Blood Count 2.69 x10^6/uL (4.30-5.70) Hemoglobin 8.1 g/dL (13.0-17.5) Hematocrit 25.0 % (39.0-53.0) Mean Corpuscular Volume 93 fL (79-100) Mean Corpuscular Hemoglobin 30 pg (25-35) Mean Corpuscular Hemoglobin Concent 32 g/dL (31-37) Red Cell Distribution Width 15.1 % (11.5-14.5) Platelet Count 207 x10^3/uL (140-400) Sodium Level 142 mmol/L (136-145) Potassium Level 4.2 mmol/L (3.5-5.1) Chloride Level 108 mmol/L (98-107) Carbon Dioxide Level 25 mmol/L (21-32) Anion Gap 9 (6-14) Blood Urea Nitrogen 35 mg/dL (8-26) Creatinine 1.4 mg/dL (0.7-1.3) Estimated GFR (Cockcroft-Gault) 48.4 BUN/Creatinine Ratio 25 (6-20) Glucose Level 127 mg/dL (70-99) Calcium Level 8.6 mg/dL (8.5-10.1) Magnesium Level 2.1 mg/dL (1.8-2.4) Total Bilirubin 0.7 mg/dL (0.2-1.0) Aspartate Amino Transf (AST/SGOT) 51 U/L (15-37) Alanine Aminotransferase (ALT/SGPT) 37 U/L (16-63) Alkaline Phosphatase 141 U/L (46-116) Total Protein 4.8 g/dL (6.4-8.2) Albumin 1.5 g/dL (3.4-5.0) Albumin/Globulin Ratio 0.5 (1.0-1.7) Assessment/Plan POD 6 l/s karie new onset AF acute blood loss anemia continue supportive care d/w Dr Manjarrez (ID) Hilda Kent, Yung to follow in my absence KEESHA POLLACK MD February 20, 2019 12:11
--- NOTE | 2019-02-20 12:12 | PDOC ---
CARDIO Progress Notes Date and Time Date of Service 02/20/19 Time of Evaluation 1140 Subjective Subjective: No Chest Pain, No shortness of breath, No Palpitations, Other (feels better today) Vitals Vitals Vital Signs Date Time Temp Pulse Resp B/P (MAP) Pulse Ox O2 Delivery O2 Flow Rate FiO2 02/20/19 11:00 131 23 132/73 (92) 97 Room Air 02/20/19 09:00 2.0 02/20/19 08:00 98.5 98.5 Weight Weight [ ] Input and Output Intake and Output Intake and Output 02/20/19 07:00 Intake Total 1767 ml Output Total 588 ml Balance 1179 ml IV Total 1767 ml Output Urine Total 585 ml Stool Total 3 ml # Bowel Movements 4 Laboratory Labs Laboratory Tests Test 02/20/19 01:55 White Blood Count 18.2 x10^3/uL (4.0-11.0) Red Blood Count 2.69 x10^6/uL (4.30-5.70) Hemoglobin 8.1 g/dL (13.0-17.5) Hematocrit 25.0 % (39.0-53.0) Mean Corpuscular Volume 93 fL (79-100) Mean Corpuscular Hemoglobin 30 pg (25-35) Mean Corpuscular Hemoglobin Concent 32 g/dL (31-37) Red Cell Distribution Width 15.1 % (11.5-14.5) Platelet Count 207 x10^3/uL (140-400) Sodium Level 142 mmol/L (136-145) Potassium Level 4.2 mmol/L (3.5-5.1) Chloride Level 108 mmol/L (98-107) Carbon Dioxide Level 25 mmol/L (21-32) Anion Gap 9 (6-14) Blood Urea Nitrogen 35 mg/dL (8-26) Creatinine 1.4 mg/dL (0.7-1.3) Estimated GFR (Cockcroft-Gault) 48.4 BUN/Creatinine Ratio 25 (6-20) Glucose Level 127 mg/dL (70-99) Calcium Level 8.6 mg/dL (8.5-10.1) Magnesium Level 2.1 mg/dL (1.8-2.4) Total Bilirubin 0.7 mg/dL (0.2-1.0) Aspartate Amino Transf (AST/SGOT) 51 U/L (15-37) Alanine Aminotransferase (ALT/SGPT) 37 U/L (16-63) Alkaline Phosphatase 141 U/L (46-116) Total Protein 4.8 g/dL (6.4-8.2) Albumin 1.5 g/dL (3.4-5.0) Albumin/Globulin Ratio 0.5 (1.0-1.7) Microbiology Micro Microbiology 02/17/19 Blood Culture - Preliminary, Resulted NO GROWTH AFTER 2 DAYS 02/17/19 Urine Culture - Final, Complete 02/17/19 Urine Culture Result 1 (PETERSON) - Final, Complete Physical Exam HEENT: Neck Supple W Full Motion Chest: Symmetric LUNGS: Other (dimininshed bases) Heart: irregularly irregular (AFIB) Abdomen: Other (S/P Lap karie, tender abd) Extremities: No Calf Tenderness, Other (1+ bilateral LE pitting edema) Neurology: alert, oriented, follow commands Assessment Assessment 1. Cholelithiasis s/p lap cholecystectomy 02/14/19 2. AFIB with RVR; new onset. HR remains 100-120. EF and WM nml 3. Leukocytosis: ID following 4. Hypertension; with hypotension improved. 5. Hyperlipidemia; statin therapy 6. HERBER: Cr stable at 1.4 7. H/o CVA; on Plavix 8. Postoperative anemia: Hgb 8.1. 9. Dysphagia; difficulty with pills, feels full. EGD planned for am. Recommendations Continue Cardizem and metoprolol. Increase metoprolol for better rate control ASA for stroke prevention for now given anemia. [id number] score 5 correlating with a 7.2 % risk for stroke. Depending upon course of rhythm and anemia, will consider addition of OAC. Supportive care Follow surgery REBEKA Valdovinos APRN February 20, 2019 12:12
[2019-02-20] MEDS: METOPROLOL TART IMMED RELEASE 25 MG TABLET. PO SCH ×2 (12:26→21:58)
--- NOTE | 2019-02-20 16:25 | PDOC ---
PULMONARY PROGRESS NOTES Subjective PT BETTER LESS SOA UP IN CHAIR Vitals Vital Signs Date Time Temp Pulse Resp B/P (MAP) Pulse Ox O2 Delivery O2 Flow Rate FiO2 02/20/19 15:00 84 16 112/56 (74) 98 Nasal Cannula 2.0 02/20/19 12:00 98.7 98.7 ROS: No Nausea, No Chest Pain, No Increase Cough General: Alert Lungs: Clear Cardiovascular: S1, S2 Abdomen: Soft Neuro Exam: Alert Extremities: No Edema Skin: Warm Labs Laboratory Tests Test 02/19/19 08:17 02/20/19 01:55 White Blood Count 19.9 x10^3/uL (4.0-11.0) 18.2 x10^3/uL (4.0-11.0) Red Blood Count 2.51 x10^6/uL (4.30-5.70) 2.69 x10^6/uL (4.30-5.70) Hemoglobin 7.8 g/dL (13.0-17.5) 8.1 g/dL (13.0-17.5) Hematocrit 24.6 % (39.0-53.0) 25.0 % (39.0-53.0) Mean Corpuscular Volume 98 fL (79-100) 93 fL (79-100) Mean Corpuscular Hemoglobin 31 pg (25-35) 30 pg (25-35) Mean Corpuscular Hemoglobin Concent 32 g/dL (31-37) 32 g/dL (31-37) Red Cell Distribution Width 15.9 % (11.5-14.5) 15.1 % (11.5-14.5) Platelet Count 183 x10^3/uL (140-400) 207 x10^3/uL (140-400) Sodium Level 140 mmol/L (136-145) 142 mmol/L (136-145) Potassium Level 4.1 mmol/L (3.5-5.1) 4.2 mmol/L (3.5-5.1) Chloride Level 109 mmol/L (98-107) 108 mmol/L (98-107) Carbon Dioxide Level 22 mmol/L (21-32) 25 mmol/L (21-32) Anion Gap 9 (6-14) 9 (6-14) Blood Urea Nitrogen 35 mg/dL (8-26) 35 mg/dL (8-26) Creatinine 1.5 mg/dL (0.7-1.3) 1.4 mg/dL (0.7-1.3) Estimated GFR (Cockcroft-Gault) 44.7 48.4 Glucose Level 146 mg/dL (70-99) 127 mg/dL (70-99) Calcium Level 8.3 mg/dL (8.5-10.1) 8.6 mg/dL (8.5-10.1) BUN/Creatinine Ratio 25 (6-20) Magnesium Level 2.1 mg/dL (1.8-2.4) Total Bilirubin 0.7 mg/dL (0.2-1.0) Aspartate Amino Transf (AST/SGOT) 51 U/L (15-37) Alanine Aminotransferase (ALT/SGPT) 37 U/L (16-63) Alkaline Phosphatase 141 U/L (46-116) Total Protein 4.8 g/dL (6.4-8.2) Albumin 1.5 g/dL (3.4-5.0) Albumin/Globulin Ratio 0.5 (1.0-1.7) Laboratory Tests Test 02/20/19 01:55 White Blood Count 18.2 x10^3/uL (4.0-11.0) Red Blood Count 2.69 x10^6/uL (4.30-5.70) Hemoglobin 8.1 g/dL (13.0-17.5) Hematocrit 25.0 % (39.0-53.0) Mean Corpuscular Volume 93 fL (79-100) Mean Corpuscular Hemoglobin 30 pg (25-35) Mean Corpuscular Hemoglobin Concent 32 g/dL (31-37) Red Cell Distribution Width 15.1 % (11.5-14.5) Platelet Count 207 x10^3/uL (140-400) Sodium Level 142 mmol/L (136-145) Potassium Level 4.2 mmol/L (3.5-5.1) Chloride Level 108 mmol/L (98-107) Carbon Dioxide Level 25 mmol/L (21-32) Anion Gap 9 (6-14) Blood Urea Nitrogen 35 mg/dL (8-26) Creatinine 1.4 mg/dL (0.7-1.3) Estimated GFR (Cockcroft-Gault) 48.4 BUN/Creatinine Ratio 25 (6-20) Glucose Level 127 mg/dL (70-99) Calcium Level 8.6 mg/dL (8.5-10.1) Magnesium Level 2.1 mg/dL (1.8-2.4) Total Bilirubin 0.7 mg/dL (0.2-1.0) Aspartate Amino Transf (AST/SGOT) 51 U/L (15-37) Alanine Aminotransferase (ALT/SGPT) 37 U/L (16-63) Alkaline Phosphatase 141 U/L (46-116) Total Protein 4.8 g/dL (6.4-8.2) Albumin 1.5 g/dL (3.4-5.0) Albumin/Globulin Ratio 0.5 (1.0-1.7) Medications Active Scripts Medications Dose Route/Sig Max Daily Dose Days Date Category Flomax (Tamsulosin Hcl) 0.4 Mg Cap.er.24h 0.4 Mg PO DAILY 02/13/19 Reported Clopidogrel (Clopidogrel Bisulfate) 75 Mg Tablet 75 Mg PO DAILY 02/13/19 Reported Aspirin 81 Mg Tab.chew 1 Tab PO DAILY 02/13/19 Reported Vitamin B-12 (Cyanocobalamin (Vitamin B-12)) 1,000 Mcg Tablet 1 Tab PO DAILY 12/25/18 Reported Metoprolol Succinate ( Xl ) (Metoprolol Succinate) 25 Mg Tab.er.24h 1 Tab PO DAILY 12/25/18 Reported Losartan Potassium 100 Mg Tablet 100 Mg PO DAILY 12/25/18 Reported Atorvastatin Calcium 40 Mg Tablet 40 Mg PO QHS 30 06/27/17 Rx Multivitamins (Multivitamin) 1 Each Tablet 1 Tab PO DAILY 08/12/15 Reported Vitamin D (Cholecalciferol (Vitamin D3)) 2,000 Unit Capsule 1 Cap PO DAILY 08/12/15 Reported Impression . IMPRESSION: 1. Expected hypoxemic respiratory failure. 2. Status post laparoscopic cholecystectomy with cholangiogram. 3. Status post exploratory laparotomy for hemoperitoneum on 02/14. 4. Abnormal x-ray compatible with atelectasis and effusion, suspect related to intra-abdominal inflammation and possible infection. 5. Leukocytosis. 6. History of cerebrovascular accident, hypertension 7. Hyperlipidemia. 8. Transient atrial fibrillation. 9. Acute blood loss anemia 02/20 Impression: 1. There is a air/ fluid collection identified in the gallbladder fossa region measuring 8.2 x 4.7 cm. Differential includes abscess or focal biloma, if there has been a recent cholecystectomy. A HIDA scan may be helpful. A drain tubing is identified in the gallbladder fossa region. 2. Punctate foci of air identified in the right upper quadrant of the abdomen with surrounding inflammatory fat stranding probably secondary to recent surgery. Correlate clinically. 3. Bibasilar lung consolidation changes likely pneumonia or atelectasis with collapse and consolidation of the right middle lobe of the lung. Bilateral pleural effusions , right greater than left. 4. Mild thickened appearance of the wall of the colon throughout could be due to nondistention or mild colitis. Plan . PER SURGERY MONITOR H/H IS PT PULLING A2 LITERS UP TO CHAIR PT IV ANTIBX MONITOR CXR UMA NARANJO MD February 20, 2019 16:25
[2019-02-20] MEDS: ATORVASTATIN CALCIUM 40 MG TABLET. PO SCH (21:57)
[2019-02-21] VITALS (18 sets, daily range): BP systolic 94–165; BP diastolic 41–85
[2019-02-21] MEDS: PIPERACILLIN/TAZOBACTAM 3.375 GM in IV NORMAL SALINE 50ML 50 ML IV SCH ×5 (00:20→23:57)
[2019-02-21] MEDS: IV NORMAL SALINE 1000ML BAG 1,000 ML IV SCH ×3 (04:40→16:41)
[2019-02-21] MEDS ORDERED: IV RINGERS,LACTATED 1000ML 1,000 ML IV SCH (07:00)
--- NOTE | 2019-02-21 07:09 | PDOC ---
Infectious Disease Note Subjective Subjective feeling much better ROS ROS no n/v/d/sob Vital Sign Vital Signs Vital Signs Date Time Temp Pulse Resp B/P (MAP) Pulse Ox O2 Delivery O2 Flow Rate FiO2 02/21/19 06:00 108 19 164/67 (99) 95 Nasal Cannula 2.0 02/21/19 04:00 99.4 99.4 Physical Exam PHYSICAL EXAM GENERAL: Alert, oriented gentleman, not in distress. VITAL SIGNS: Stable HEENT: Anicteric. NECK: Supple, no JVP, no lymphadenopathy. LUNGS: Clear. HEART: S1, S2 regular. ABDOMEN: Mildly diffusely tender, no rebound or guarding. No organomegaly appreciated. NICOLAS is in place. EXTREMITIES: No edema, cyanosis. SKIN: Unremarkable. NEUROLOGIC: The patient is alert, awake and appropriate. No focal neurologic deficit. Labs Micro Microbiology 02/17/19 Blood Culture - Preliminary, Resulted NO GROWTH AFTER 1 DAY Objective Assessment 1. Fever. 2. Leukocytosis may have been partly related to the steroids that he got during surgery. 3. Status post cholecystectomy. 4. Hypertension. 5. Hyperlipidemia. 6. Atrial fibrillation. Plan Plan of Care cont zosyn and zyvox supportive care up in chair/PT/OT ct chest, abd and pelvis Impression: 1. There is a air/ fluid collection identified in the gallbladder fossa region measuring 8.2 x 4.7 cm. Differential includes abscess or focal biloma, if there has been a recent cholecystectomy. A HIDA scan may be helpful. A drain tubing is identified in the gallbladder fossa region. 2. Punctate foci of air identified in the right upper quadrant of the abdomen with surrounding inflammatory fat stranding probably secondary to recent surgery. Correlate clinically. 3. Bibasilar lung consolidation changes likely pneumonia or atelectasis with collapse and consolidation of the right middle lobe of the lung. Bilateral pleural effusions , right greater than left. 4. Mild thickened appearance of the wall of the colon throughout could be due to nondistention or mild colitis. EGD today LORENA POWELL MD February 21, 2019 07:09
[2019-02-21] MEDS: CLOPIDOGREL BISULFATE 75 MG TABLET PO SCH (08:33)
[2019-02-21] MEDS: LACTOBACILLUS RHAMNOSUS GG 1 CAPSULE. PO SCH ×2 (08:33→20:44)
[2019-02-21] MEDS: PANTOPRAZOLE 40 MG TABLET.DR. PO SCH (08:34)
[2019-02-21] MEDS: TAMSULOSIN 0.4 MG CAP.ER.24H. PO SCH (08:34)
[2019-02-21] MEDS: LOSARTAN POTASSIUM 50 MG TABLET. PO SCH (08:34)
[2019-02-21] MEDS: ASPIRIN ENTERIC COATED 81 MG TABLET.DR. PO SCH (08:34)
[2019-02-21] MEDS: MULTIVITAMIN with MINERAL TABLET. PO SCH (08:35)
[2019-02-21] MEDS: METOPROLOL TART IMMED RELEASE 25 MG TABLET. PO SCH ×2 (08:35→20:44)
[2019-02-21] MEDS: CHOLECALCIFEROL (VITAMIN D3) 1,000 UNIT TABLET PO SCH (08:35)
[2019-02-21] MEDS: CYANOCOBALAMIN (VITAMIN B-12) 1,000 MCG TABLET. PO SCH (08:35)
[2019-02-21] MEDS: DOCUSATE SODIUM 100 MG CAPSULE. PO SCH ×2 (08:35→21:00)
--- NOTE | 2019-02-21 09:01 | PDOC ---
PROGRESS NOTES Chief Complaint Chief Complaint Status post lap cholecystectomy, 02/14/19 Postop status cyst/fulfills tachycardia tachypnea AK I VMN-creatinine 1.5 today from normal Sepsis - with fever and Leukocytosis, started on empiric Zosyn, zyvox History CVA, hypertension, dyslipidemia and GERD on medication Atrial fibrillation with RVR - rate controlled History of Present Illness History of Present Illness 83 yo M who came in for flulike symptoms. He came from home with the . Was treated. But course remarkable for developing either cholelithiasis or cholecystitis and underwent laparoscopic cholecystectomy on 02/14/19 bu postop course was remarkable for bleeding around the NICOLAS drain and around the postop site that they had to redo him that same day but no exploratory laparoscopy done/needed. Taken to ICU for Afib with RVR on 02/17/19. He is on GI soft diet but with minimal intake. He is belching and c/o "reflux" symptoms and little appetite. NPO for EGD this afternoon anyway. Cr 1.4. Lactate was elevated, normalized after IVF. Still in afib on oral cardizem and metoprolol. Had multiple BM yesterday. CT abdomen shows possible biloma vs abscess near gallbladder fossa. Plan: EGD today Schedule nausea control Cont rate control meds oral Vitals Vitals Vital Signs Date Time Temp Pulse Resp B/P (MAP) Pulse Ox O2 Delivery O2 Flow Rate FiO2 02/21/19 08:35 95 150/65 02/21/19 08:02 Room Air 02/21/19 08:00 18 95 02/21/19 07:00 98.4 98.4 02/21/19 06:00 2.0 Physical Exam Physical Exam GENERAL: Alert, oriented gentleman, not in distress. VITAL SIGNS: Stable HEENT: Anicteric. NECK: Supple, no JVP, no lymphadenopathy. LUNGS: Clear. HEART: S1, S2 regular. ABDOMEN: Mildly diffusely tender, no rebound or guarding. No organomegaly appreciated. NICOLAS is in place. EXTREMITIES: No edema, cyanosis. SKIN: Unremarkable. NEUROLOGIC: The patient is alert, awake and appropriate. No focal neurologic deficit. General: Alert, No acute distress Heart: Other (IRRR; tele AFIB with controlled rate) Lungs: Clear Abdomen: Soft, Other (NICOLAS with serosanguineous output) Extremities: Other (trace bialteral LE edema ) Skin: No rashes Comment Review of Relevant I have reviewed the following items timoteo (where applicable) has been applied. Labs Laboratory Tests Test 02/20/19 01:55 White Blood Count 18.2 x10^3/uL (4.0-11.0) Red Blood Count 2.69 x10^6/uL (4.30-5.70) Hemoglobin 8.1 g/dL (13.0-17.5) Hematocrit 25.0 % (39.0-53.0) Mean Corpuscular Volume 93 fL (79-100) Mean Corpuscular Hemoglobin 30 pg (25-35) Mean Corpuscular Hemoglobin Concent 32 g/dL (31-37) Red Cell Distribution Width 15.1 % (11.5-14.5) Platelet Count 207 x10^3/uL (140-400) Sodium Level 142 mmol/L (136-145) Potassium Level 4.2 mmol/L (3.5-5.1) Chloride Level 108 mmol/L (98-107) Carbon Dioxide Level 25 mmol/L (21-32) Anion Gap 9 (6-14) Blood Urea Nitrogen 35 mg/dL (8-26) Creatinine 1.4 mg/dL (0.7-1.3) Estimated GFR (Cockcroft-Gault) 48.4 BUN/Creatinine Ratio 25 (6-20) Glucose Level 127 mg/dL (70-99) Calcium Level 8.6 mg/dL (8.5-10.1) Magnesium Level 2.1 mg/dL (1.8-2.4) Total Bilirubin 0.7 mg/dL (0.2-1.0) Aspartate Amino Transf (AST/SGOT) 51 U/L (15-37) Alanine Aminotransferase (ALT/SGPT) 37 U/L (16-63) Alkaline Phosphatase 141 U/L (46-116) Total Protein 4.8 g/dL (6.4-8.2) Albumin 1.5 g/dL (3.4-5.0) Albumin/Globulin Ratio 0.5 (1.0-1.7) Microbiology 02/17/19 Blood Culture - Preliminary, Resulted NO GROWTH AFTER 3 DAYS 02/17/19 Urine Culture - Final, Complete 02/17/19 Urine Culture Result 1 (PETERSON) - Final, Complete Medications Current Medications Ondansetron HCl (Zofran) 4 mg PRN Q6HRS PRN IV NAUSEA/VOMITING; Start 02/14/19 at 07:00; Stop 02/14/19 at 20:00; Status DC Fentanyl Citrate (Fentanyl 2ml Vial) 25 mcg PRN Q5MIN PRN IV MILD PAIN Last administered on 02/14/19at 14:28; Start 02/14/19 at 07:00; Stop 02/14/19 at 20:00; Status DC Fentanyl Citrate (Fentanyl 2ml Vial) 50 mcg PRN Q5MIN PRN IV MODERATE TO SEVERE PAIN; Start 02/14/19 at 07:00; Stop 02/14/19 at 20:00; Status DC Morphine Sulfate (Morphine Sulfate) 1 mg PRN Q10MIN PRN IV SEVERE PAIN; Start 02/14/19 at 07:00; Stop 02/14/19 at 20:00; Status DC Ringer's Solution 1,000 ml @ 30 mls/hr Q24H IV Last administered on 02/14/19at 07:52; Start 02/14/19 at 07:00; Stop 02/14/19 at 18:59; Status DC Lidocaine HCl (Xylocaine-Mpf 1% 2ml Vial) 2 ml PRN 1X PRN ID PRIOR TO IV START; Start 02/14/19 at 07:00; Stop 02/14/19 at 20:00; Status DC Hydromorphone HCl (Dilaudid) 0.5 mg PRN Q10MIN PRN IV SEV PAIN, Second choice; Start 02/14/19 at 07:00; Stop 02/14/19 at 20:00; Status DC Prochlorperazine Edisylate (Compazine) 5 mg PACU PRN PRN IV NAUSEA, MRX1; Start 02/14/19 at 07:00; Stop 02/14/19 at 20:00; Status DC Cefazolin Sodium/ Dextrose 50 ml @ 100 mls/hr 1X PREOP PRN IV PRIOR TO PROCEDURE Last administered on 02/14/19at 11:21; Start 02/14/19 at 06:00; Stop 02/14/19 at 18:00; Status DC Propofol 20 ml @ As Directed STK-MED ONCE IV ; Start 02/14/19 at 08:17; Stop 02/14/19 at 08:18; Status DC Lidocaine HCl (Lidocaine Pf 2% Vial) 5 ml STK-MED ONCE .ROUTE ; Start 02/14/19 at 08:17; Stop 02/14/19 at 08:18; Status DC Ondansetron HCl (Zofran) 4 mg STK-MED ONCE .ROUTE ; Start 02/14/19 at 08:17; Stop 02/14/19 at 08:18; Status DC Dexamethasone Sodium Phosphate (Decadron) 4 mg STK-MED ONCE .ROUTE ; Start 02/14/19 at 08:17; Stop 02/14/19 at 08:18; Status DC Sevoflurane (Ultane) 60 ml STK-MED ONCE IH ; Start 02/14/19 at 08:17; Stop 02/14/19 at 08:18; Status DC Rocuronium Wallace (Zemuron) 50 mg STK-MED ONCE .ROUTE ; Start 02/14/19 at 08:17; Stop 02/14/19 at 08:18; Status DC Fentanyl Citrate (Fentanyl 2ml Vial) 100 mcg STK-MED ONCE .ROUTE ; Start 02/14/19 at 08:39; Stop 02/14/19 at 08:40; Status DC Bupivacaine HCl/ Epinephrine Bitart (Sensorcain-Mpf Epi 0.5%-[id number]) 30 ml STK-MED ONCE .ROUTE Last administered on 02/14/19at 11:48; Start 02/14/19 at 10:01; Stop 02/14/19 at 11:02; Status DC Glucagon (Glucagen) 1 mg STK-MED ONCE .ROUTE ; Start 02/14/19 at 10:01; Stop 02/14/19 at 11:02; Status DC Iohexol (Omnipaque 300 Mg/ml) 100 ml STK-MED ONCE .ROUTE Last administered on 02/14/19at 11:48; Start 02/14/19 at 10:01; Stop 02/14/19 at 11:02; Status DC Cellulose (Surgicel Hemostat 4x8) 1 each STK-MED ONCE .ROUTE Last administered on 02/14/19at 13:12; Start 02/14/19 at 10:01; Stop 02/14/19 at 11:02; Status DC Cellulose (Surgicel Hemostat 4x8) 1 each STK-MED ONCE .ROUTE Last administered on 02/14/19at 13:31; Start 02/14/19 at 11:19; Stop 02/14/19 at 12:19; Status DC Famotidine (Pepcid Vial) 20 mg STK-MED ONCE .ROUTE ; Start 02/14/19 at 13:14; Stop 02/14/19 at 13:15; Status DC Diphenhydramine HCl (Benadryl) 50 mg STK-MED ONCE .ROUTE ; Start 02/14/19 at 13:14; Stop 02/14/19 at 13:15; Status DC Rocuronium Wallace (Zemuron) 50 mg STK-MED ONCE .ROUTE ; Start 02/14/19 at 13:14; Stop 02/14/19 at 13:15; Status DC Fentanyl Citrate (Fentanyl 2ml Vial) 100 mcg STK-MED ONCE .ROUTE ; Start 02/14/19 at 13:15; Stop 02/14/19 at 13:16; Status DC Cellulose (Surgicel Hemostat 4x8) 1 each STK-MED ONCE .ROUTE ; Start 02/14/19 at 12:33; Stop 02/14/19 at 13:33; Status DC Diphenhydramine HCl (Benadryl) 25 mg PRN Q6HRS PRN PO ITCHING; Start 02/14/19 at 14:00 Sodium Chloride (Normal Saline Flush) 3 ml QSHIFT PRN IV AFTER MEDS AND BLOOD DRAWS; Start 02/14/19 at 14:00 Potassium Chloride/Sodium Chloride 1,000 ml @ 80 mls/hr [id number] IV Last administered on 02/17/19at 06:02; Start 02/14/19 at 15:00; Stop 02/17/19 at 12:54; Status DC Dextrose (Dextrose 50%-Water Syringe) 12.5 gm PRN Q15MIN PRN IV SEE COMMENTS; Start 02/14/19 at 14:00 Acetaminophen/ Hydrocodone Bitart (Lortab 5/325) 1 tab PRN Q4HRS PRN PO MILD PAIN Last administered on 02/17/19at 08:35; Start 02/14/19 at 14:00 Acetaminophen/ Hydrocodone Bitart (Lortab 5/325) 2 tab PRN Q4HRS PRN PO MO DERATE PAIN, SEVERE PAIN Last administered on 02/17/19 03:22; Start 02/14/19 at 14:00 Hydromorphone HCl (Dilaudid) 1 mg PRN Q4HRS PRN IV PAIN Last administered on 02/15/19 17:46; Start 02/14/19 at 14:00 Docusate Sodium (Colace) 100 mg BID PO Last administered on 02/18/19 22:19; Start 02/14/19 at 21:00 Ondansetron HCl (Zofran) 4 mg PRN Q6HRS PRN IV NAUESA, 1ST CHOICE Last admi nistered on 02/19/19 04:09; Start 02/14/19 at 14:00; Stop 02/19/19 at 09:05; Status DC Atorvastatin Calcium (Lipitor) 40 mg QHS PO Last administered on 02/20/19 21:57; Start 02/14/19 at 21:00 Cyanocobalamin (Vitamin B-12) 1,000 mcg DAILY PO Last administered on 02/19/19 09:32; Start 02/15/19 at 09:00 Metoprolol Succinate (Toprol Xl) 25 mg DAILY PO Last administered on 02/20/19 07:53; Start 02/15/19 at 09:00; Stop 02/20/19 at 12:11; Status DC Tamsulosin HCl (Flomax) 0.4 mg DAILY PO Last administered on 02/21/19 08:34; Start 02/15/19 at 09:00 Losartan Potassium (Cozaar) 100 mg DAILY PO Last administered on 02/21/19 08:34; Start 02/15/19 at 09:00 Fentanyl Citrate (Fentanyl 2ml Vial) 100 mcg STK-MED ONCE .ROUTE ; Start 02/14/19 at 14:26; Stop 02/14/19 at 14:27; Status DC Bupivacaine HCl/ Epinephrine Bitart (Sensorcain-Mpf Epi 0.5%-1:[id number]) 30 ml STK-MED ONCE .ROUTE ; Start 02/14/19 at 15:13; Stop 02/14/19 at 16:14; Status DC Bacitracin (Bacitracin) 50,000 unit STK-MED ONCE IRR Last administered on 4/2 5/19at 16:49; Start 02/14/19 at 15:14; Stop 02/14/19 at 16:15; Status DC Sodium Chloride (SODIUM CHLORIDE 20ml) 20 ml STK-MED ONCE IJ ; Start 02/14/19 at 15:15; Stop 02/14/19 at 16:15; Status DC Cellulose (Surgicel Hemostat 4x8) 3 each STK-MED ONCE TP Last administered on 02/14/19at 16:49; Start 02/14/19 at 16:49; Stop 02/14/19 at 16:55; Status DC Cellulose (Surgicel Hemostat 4x8) 4 each 1X ONCE TP ; Start 02/14/19 at 17:15; Stop 02/14/19 at 17:16; Status DC Cefazolin Sodium/ Dextrose (Ancef 2gm Premix) 2 gm STK-MED ONCE IV ; Start 02/14/19 at 11:00; Stop 02/15/19 at 13:02; Status DC Piperacillin Sod/ Tazobactam Sod 3.375 gm/Sodium Chloride 50 ml @ 100 mls/hr Q6HRS IV Last administered on 02/21/19 06:15; Start 02/17/19 at 12:00 Sodium Chloride 1,000 ml @ 125 mls/hr Q8H IV Last administered on 02/21/19at 04:40; Start 02/17/19 at 13:00 Clopidogrel Bisulfate (Plavix) 75 mg DAILY PO Last administered on 02/21/19 08:33; Start 02/17/19 at 14:00 Vitamin D (Vitamin D3) 2,000 unit DAILY PO Last administered on 02/19/19 09:31; Start 02/17/19 at 14:00 Multivitamins (Thera M Plus) 1 tab DAILY PO Last administered on 02/19/19 09:31; Start 02/17/19 at 14:00 Calcium Carbonate/ Glycine (Tums) 500 mg PRN AFTMEALHC PRN PO INDIGESTION Last administered on 02/18/19at 22:25; Start 02/17/19 at 15:00 Acetaminophen (Tylenol) 650 mg PRN Q6HRS PRN PO fever Last administered on 02/17/19at 23:50; Start 02/17/19 at 23:45; Stop 02/21/19 at 08:07; Status DC Sodium Chloride 500 ml @ 500 mls/hr 1X ONCE IV Last administered on 02/17/19at 23:48; Start 02/18/19 at 00:00; Stop 02/18/19 at 00:59; Status DC Diltiazem HCl 125 mg/Dextrose 125 ml @ 5 mls/hr CONT PRN IV SEE I/O RECORD Last administered on 02/18/19at 04:27; Start 02/18/19 at 04:15; Stop 02/18/19 at 16:09; Status DC Linezolid/Dextrose 300 ml @ 300 mls/hr Q12HR IV Last administered on 02/21/19at 08:40; Start 02/18/19 at 09:00 Lactobacillus Rhamnosus (Culturelle) 1 cap BID PO Last administered on 02/21/19 08:33; Start 02/18/19 at 21:00 Diltiazem HCl (Cardizem 24hr Cd) 240 mg DAILY PO Last administered on 02/21/19at 08:34; Start 02/18/19 at 12:30 Aspirin (Ecotrin) 81 mg DAILYWBKFT PO Last administered on 02/21/19at 08:34; Start 02/18/19 at 16:15 Acetaminophen (Tylenol) 650 mg PRN Q6HRS PRN PO FEVER; Start 02/19/19 at 01:45 Acetaminophen (Tylenol Supp) 650 mg PRN Q6HRS PRN DE MILD PAIN/TEMP Last administered on 02/19/19at 02:18; Start 02/19/19 at 02:15 Norepinephrine Bitartrate 250 ml @ 1.875 mls/ hr CONT PRN IV SEE I/O RECORD; Start 02/19/19 at 07:30 Digoxin (Lanoxin) 250 mcg 1X ONCE IV Last administered on 02/19/19at 07:36; Start 02/19/19 at 07:30; Stop 02/19/19 at 07:31; Status DC Sodium Chloride 500 ml @ 500 mls/hr 1X ONCE IV Last administered on 02/19/19at 07:35; Start 02/19/19 at 07:30; Stop 02/19/19 at 08:29; Status DC Ondansetron HCl (Zofran) 4 mg Q6HRS IV Last administered on 02/20/19at 05:43; Start 02/19/19 at 12:00; Stop 02/20/19 at 10:56; Status DC Pantoprazole Sodium (Protonix) 40 mg BIDAC PO Last administered on 02/21/19at 08:34; Start 02/19/19 at 16:30 Digoxin (Lanoxin) 250 mcg 1X ONCE IV Last administered on 02/19/19at 22:57; Start 02/19/19 at 23:00; Stop 02/19/19 at 23:01; Status DC Cellulose (Surgicel Hemostat 4x8) 1 each STK-MED ONCE .ROUTE ; Start 02/14/19 at 15:23; Stop 02/20/19 at 08:42; Status DC Cellulose (Surgicel Hemostat 4x8) 1 each STK-MED ONCE .ROUTE ; Start 02/14/19 at 15:50; Stop 02/20/19 at 08:42; Status DC Propofol 20 ml @ As Directed STK-MED ONCE IV ; Start 02/14/19 at 16:05; Stop 02/20/19 at 08:42; Status DC Famotidine (Pepcid Vial) 20 mg STK-MED ONCE .ROUTE ; Start 02/14/19 at 16:05; Stop 02/20/19 at 08:42; Status DC Lidocaine HCl (Lidocaine Pf 2% Vial) 5 ml STK-MED ONCE .ROUTE ; Start 02/14/19 at 16:05; Stop 02/20/19 at 08:42; Status DC Ondansetron HCl (Zofran) 4 mg STK-MED ONCE .ROUTE ; Start 02/14/19 at 16:05; Stop 02/20/19 at 08:42; Status DC Rocuronium Wallace (Zemuron) 100 mg STK-MED ONCE .ROUTE ; Start 02/14/19 at 16:05; Stop 02/20/19 at 08:42; Status DC Fentanyl Citrate (Fentanyl 2ml Vial) 100 mcg STK-MED ONCE .ROUTE ; Start 02/14/19 at 16:06; Stop 02/20/19 at 08:42; Status DC Dexamethasone Sodium Phosphate (Decadron) 4 mg STK-MED ONCE .ROUTE ; Start 02/14/19 at 16:06; Stop 02/20/19 at 08:42; Status DC Neostigmine Methylsulfate (Neostigmine Methylsulfate) 5 mg STK-MED ONCE .ROUTE ; Start 02/14/19 at 17:26; Stop 02/20/19 at 08:42; Status DC Glycopyrrolate (Robinul) 1 mg STK-MED ONCE .ROUTE ; Start 02/14/19 at 17:26; Stop 02/20/19 at 08:42; Status DC Ondansetron HCl (Zofran) 4 mg PRN Q6HRS PRN IV NAUSEA/VOMITING; Start 02/20/19 at 10:54 Metoprolol Tartrate (Lopressor) 25 mg BID PO Last administered on 02/21/19at 08:35; Start 02/20/19 at 12:15 Ringer's Solution 1,000 ml @ 50 mls/hr Q20H IV ; Start 02/21/19 at 07:00; Stop 02/21/19 at 18:59 Active Scripts Active Atorvastatin Calcium 40 Mg Tablet 40 Mg PO QHS 30 Days Reported Flomax (Tamsulosin Hcl) 0.4 Mg Cap.er.24h 0.4 Mg PO DAILY Clopidogrel (Clopidogrel Bisulfate) 75 Mg Tablet 75 Mg PO DAILY Aspirin 81 Mg Tab.chew 1 Tab PO DAILY Vitamin B-12 (Cyanocobalamin (Vitamin B-12)) 1,000 Mcg Tablet 1 Tab PO DAILY Metoprolol Succinate ( Xl ) (Metoprolol Succinate) 25 Mg Tab.er.24h 1 Tab PO DAILY Losartan Potassium 100 Mg Tablet 100 Mg PO DAILY Multivitamins (Multivitamin) 1 Each Tablet 1 Tab PO DAILY Vitamin D (Cholecalciferol (Vitamin D3)) 2,000 Unit Capsule 1 Cap PO DAILY Vitals/I & O Vital Sign - Last 24 Hours 02/20/19 02/20/19 02/20/19 02/20/19 09:00 10:00 11:00 12:00 Temp 98.7 98.7 Pulse 131 112 131 116 Resp B/P (MAP) 143/69 (93) 119/63 (81) 132/73 (92) 133/57 (82) Pulse Ox 98 97 97 99 O2 Delivery Nasal Cannula Room Air Room Air Nasal Cannula O2 Flow Rate 2.0 2.0 02/20/19 02/20/19 02/20/19 02/20/19 12:00 12:26 13:00 14:00 Pulse 119 86 82 Resp B/P (MAP) 133/57 120/53 (75) 140/65 (90) Pulse Ox 99 96 O2 Delivery Nasal Cannula Nasal Cannula Nasal Cannula O2 Flow Rate 2.0 2.0 2.0 02/20/19 02/20/19 02/20/19 02/20/19 15:00 16:00 16:00 17:00 Temp 99.3 99.3 Pulse 84 90 90 Resp B/P (MAP) 112/56 (74) 132/65 (87) 140/59 (86) Pulse Ox 98 97 98 O2 Delivery Nasal Cannula Nasal Cannula Nasal Cannula Nasal Cannula O2 Flow Rate 2.0 2.0 2.0 2.0 02/20/19 02/20/19 02/20/19 02/20/19 18:00 19:00 20:00 20:00 Temp 98.9 98.9 Pulse 89 108 107 Resp B/P (MAP) 139/53 (81) 132/62 (85) 97/54 (68) Pulse Ox 99 97 96 O2 Delivery Nasal Cannula Nasal Cannula Nasal Cannula Nasal Cannula O2 Flow Rate 2.0 2.0 2.0 2.0 02/20/19 02/20/19 02/20/19 02/20/19 21:00 21:58 22:00 23:00 Temp 99.4 99.4 Pulse 119 117 97 106 Resp B/P (MAP) 137/67 (90) 137/67 140/67 (91) 142/60 (87) Pulse Ox 97 97 97 O2 Delivery Nasal Cannula Nasal Cannula Nasal Cannula O2 Flow Rate 2.0 2.0 2.0 02/21/19 02/21/19 02/21/19 02/21/19 00:00 00:01 01:00 02:00 Pulse 86 96 88 Resp B/P (MAP) 165/70 (101) 140/61 (87) 126/41 (69) Pulse Ox 98 97 96 O2 Delivery Nasal Cannula Nasal Cannula Nasal Cannula Nasal Cannula O2 Flow Rate 2.0 2.0 2.0 2.0 02/21/19 02/21/19 02/21/19 02/21/19 03:00 04:00 04:00 05:00 Temp 99.4 99.4 Pulse 92 83 89 Resp 29 23 21 B/P (MAP) 123/52 (75) 118/57 (77) 94/53 (67) Pulse Ox 97 96 100 O2 Delivery Nasal Cannula Nasal Cannula Nasal Cannula Nasal Cannula O2 Flow Rate 2.0 2.0 2.0 2.0 02/21/19 02/21/19 02/21/19 02/21/19 06:00 07:00 08:00 08:02 Temp 98.4 98.4 Pulse 108 95 96 Resp 19 18 18 B/P (MAP) 164/67 (99) 150/65 (93) 137/68 (91) Pulse Ox 95 94 95 O2 Delivery Nasal Cannula Room Air Room Air Room Air O2 Flow Rate 2.0 02/21/19 02/21/19 02/21/19 08:34 08:34 08:35 Pulse 95 95 95 B/P (MAP) 150/65 150/65 150/65 Intake and Output 02/20/19 02/20/19 02/21/19 14:59 22:59 06:59 Output Total 326 ml 230 ml 525 ml Balance -326 ml -230 ml -525 ml Nutrition Consultation Dietary Evaluation: Recommendations by RD: Protein supplementation Comments: Continue w/GI soft diet at this time, honor food preferences, and provide snacks as requested REC Ensure TID Expected Outcomes/Goals: PO intake to meet >75% est needs Malnutrition Findings: Food and Nutrition Intake (Sev: <50% est energy req 5days Weight Status: Appropriate ABIGAIL LIMON MD February 21, 2019 09:01
--- NOTE | 2019-02-21 10:43 | PDOC ---
PULMONARY PROGRESS NOTES Subjective PT BETTER ,NO SOA UP IN CHAIR Vitals Vital Signs Date Time Temp Pulse Resp B/P (MAP) Pulse Ox O2 Delivery O2 Flow Rate FiO2 02/21/19 10:05 87 18 151/70 (97) 94 Room Air 02/21/19 07:00 98.4 98.4 02/21/19 06:00 2.0 ROS: No Nausea, No Chest Pain, No Increase Cough General: Alert, No acute distress Lungs: Clear Cardiovascular: S1, S2 Abdomen: Soft Neuro Exam: Alert Extremities: Other (1+EDEMA) Skin: Warm Labs Laboratory Tests Test 02/20/19 01:55 White Blood Count 18.2 x10^3/uL (4.0-11.0) Red Blood Count 2.69 x10^6/uL (4.30-5.70) Hemoglobin 8.1 g/dL (13.0-17.5) Hematocrit 25.0 % (39.0-53.0) Mean Corpuscular Volume 93 fL (79-100) Mean Corpuscular Hemoglobin 30 pg (25-35) Mean Corpuscular Hemoglobin Concent 32 g/dL (31-37) Red Cell Distribution Width 15.1 % (11.5-14.5) Platelet Count 207 x10^3/uL (140-400) Sodium Level 142 mmol/L (136-145) Potassium Level 4.2 mmol/L (3.5-5.1) Chloride Level 108 mmol/L (98-107) Carbon Dioxide Level 25 mmol/L (21-32) Anion Gap 9 (6-14) Blood Urea Nitrogen 35 mg/dL (8-26) Creatinine 1.4 mg/dL (0.7-1.3) Estimated GFR (Cockcroft-Gault) 48.4 BUN/Creatinine Ratio 25 (6-20) Glucose Level 127 mg/dL (70-99) Calcium Level 8.6 mg/dL (8.5-10.1) Magnesium Level 2.1 mg/dL (1.8-2.4) Total Bilirubin 0.7 mg/dL (0.2-1.0) Aspartate Amino Transf (AST/SGOT) 51 U/L (15-37) Alanine Aminotransferase (ALT/SGPT) 37 U/L (16-63) Alkaline Phosphatase 141 U/L (46-116) Total Protein 4.8 g/dL (6.4-8.2) Albumin 1.5 g/dL (3.4-5.0) Albumin/Globulin Ratio 0.5 (1.0-1.7) Medications Active Scripts Medications Dose Route/Sig Max Daily Dose Days Date Category Flomax (Tamsulosin Hcl) 0.4 Mg Cap.er.24h 0.4 Mg PO DAILY 02/13/19 Reported Clopidogrel (Clopidogrel Bisulfate) 75 Mg Tablet 75 Mg PO DAILY 02/13/19 Reported Aspirin 81 Mg Tab.chew 1 Tab PO DAILY 02/13/19 Reported Vitamin B-12 (Cyanocobalamin (Vitamin B-12)) 1,000 Mcg Tablet 1 Tab PO DAILY 12/25/18 Reported Metoprolol Succinate ( Xl ) (Metoprolol Succinate) 25 Mg Tab.er.24h 1 Tab PO DAILY 12/25/18 Reported Losartan Potassium 100 Mg Tablet 100 Mg PO DAILY 12/25/18 Reported Atorvastatin Calcium 40 Mg Tablet 40 Mg PO QHS 30 06/27/17 Rx Multivitamins (Multivitamin) 1 Each Tablet 1 Tab PO DAILY 08/12/15 Reported Vitamin D (Cholecalciferol (Vitamin D3)) 2,000 Unit Capsule 1 Cap PO DAILY 08/12/15 Reported Impression . IMPRESSION: 1. Expected hypoxemic respiratory failure. 2. Status post laparoscopic cholecystectomy with cholangiogram. 3. Status post exploratory laparotomy for hemoperitoneum on 02/14. 4. Abnormal x-ray compatible with atelectasis and effusion, suspect related to intra-abdominal inflammation and possible infection. 5. Leukocytosis. 6. History of cerebrovascular accident, hypertension 7. Hyperlipidemia. 8. Transient atrial fibrillation. 9. Acute blood loss anemia 02/20 Impression: 1. There is a air/ fluid collection identified in the gallbladder fossa region measuring 8.2 x 4.7 cm. Differential includes abscess or focal biloma, if there has been a recent cholecystectomy. A HIDA scan may be helpful. A drain tubing is identified in the gallbladder fossa region. 2. Punctate foci of air identified in the right upper quadrant of the abdomen with surrounding inflammatory fat stranding probably secondary to recent surgery. Correlate clinically. 3. Bibasilar lung consolidation changes likely pneumonia or atelectasis with collapse and consolidation of the right middle lobe of the lung. Bilateral pleural effusions , right greater than left. 4. Mild thickened appearance of the wall of the colon throughout could be due to nondistention or mild colitis. Plan . PER SURGERY MONITOR H/H RESP STATUS STABLE UP TO CHAIR PT IV ANTIBX PER ID MONITOR CXR NEEDED NUTRITION PER SURGERY MELODY CURRIE MD February 21, 2019 10:43
--- NOTE | 2019-02-21 10:56 | PDOC ---
CARDIO Progress Notes Date and Time Date of Service 02/21/19 Time of Evaluation 1010 Subjective Subjective: No Chest Pain, No shortness of breath, No Palpitations, Other Vitals Vitals Vital Signs Date Time Temp Pulse Resp B/P (MAP) Pulse Ox O2 Delivery O2 Flow Rate FiO2 02/21/19 10:05 87 18 151/70 (97) 94 Room Air 02/21/19 07:00 98.4 98.4 02/21/19 06:00 2.0 Weight Weight [ ] Input and Output Intake and Output Intake and Output 02/21/19 06:59 Output Total 1081 ml Balance -1081 ml Output Urine Total 1061 ml Drainage Total 20 ml # Bowel Movements 1 Microbiology Micro Microbiology 02/17/19 Blood Culture - Preliminary, Resulted NO GROWTH AFTER 3 DAYS 02/17/19 Urine Culture - Final, Complete 02/17/19 Urine Culture Result 1 (PETERSON) - Final, Complete Physical Exam HEENT: Neck Supple W Full Motion Chest: Symmetric LUNGS: Other (dimininshed bases) Heart: irregularly irregular (AFIB) Abdomen: Other (S/P Lap karie, tender abd) Extremities: No Calf Tenderness, Other (1+ bilateral LE and hand pitting edema) Neurology: alert, oriented, follow commands Assessment Assessment 1. Cholelithiasis s/p lap cholecystectomy 02/14/19 2. AFIB with RVR; new onset. HR better controlled with BB increase. EF and WM nml 3. Leukocytosis: ID following 4. Hypertension; with hypotension- improved. 5. Hyperlipidemia; statin therapy 6. HERBER: Cr stable at 1.4 7. H/o CVA; on Plavix 8. Postoperative anemia: Hgb 8.1. 9. Dysphagia; difficulty with pills, feels full. EGD today Recommendations Continue Cardizem and metoprolol for rate control ASA for stroke prevention for now given anemia. [id number] score 5. Depending upon course of rhythm, anemia, and hospitalization, will consider addition of OAC. Supportive care Follow surgery, GI recs jasminas REBEKA GAINES APRN February 21, 2019 10:56
--- NOTE | 2019-02-21 11:45 | PDOC ---
SURGICAL PROGRESS NOTE Subjective up in chair denies pain no nausea plans for EGD today Vital Signs Vital Signs Date Time Temp Pulse Resp B/P (MAP) Pulse Ox O2 Delivery O2 Flow Rate FiO2 02/21/19 11:00 98.5 95 18 140/73 (95) 95 Room Air 98.5 02/21/19 06:00 2.0 I&O Intake and Output 02/21/19 06:59 Output Total 1081 ml Balance -1081 ml Output Urine Total 1061 ml Drainage Total 20 ml # Bowel Movements 1 General: Alert, Oriented X3, Cooperative, No acute distress Abdomen: Soft (ND, NTTP, rcicket serosang) Labs Laboratory Tests Test 02/20/19 01:55 White Blood Count 18.2 x10^3/uL (4.0-11.0) Red Blood Count 2.69 x10^6/uL (4.30-5.70) Hemoglobin 8.1 g/dL (13.0-17.5) Hematocrit 25.0 % (39.0-53.0) Mean Corpuscular Volume 93 fL (79-100) Mean Corpuscular Hemoglobin 30 pg (25-35) Mean Corpuscular Hemoglobin Concent 32 g/dL (31-37) Red Cell Distribution Width 15.1 % (11.5-14.5) Platelet Count 207 x10^3/uL (140-400) Sodium Level 142 mmol/L (136-145) Potassium Level 4.2 mmol/L (3.5-5.1) Chloride Level 108 mmol/L (98-107) Carbon Dioxide Level 25 mmol/L (21-32) Anion Gap 9 (6-14) Blood Urea Nitrogen 35 mg/dL (8-26) Creatinine 1.4 mg/dL (0.7-1.3) Estimated GFR (Cockcroft-Gault) 48.4 BUN/Creatinine Ratio 25 (6-20) Glucose Level 127 mg/dL (70-99) Calcium Level 8.6 mg/dL (8.5-10.1) Magnesium Level 2.1 mg/dL (1.8-2.4) Total Bilirubin 0.7 mg/dL (0.2-1.0) Aspartate Amino Transf (AST/SGOT) 51 U/L (15-37) Alanine Aminotransferase (ALT/SGPT) 37 U/L (16-63) Alkaline Phosphatase 141 U/L (46-116) Total Protein 4.8 g/dL (6.4-8.2) Albumin 1.5 g/dL (3.4-5.0) Albumin/Globulin Ratio 0.5 (1.0-1.7) Problem List tx out of ICU today EGD today LACHO OCONNOR APRN February 21, 2019 11:45
[2019-02-21] MEDS: IV RINGERS,LACTATED 1000ML 1,000 ML IV SCH ×2 (12:27→20:27)
[2019-02-21] MEDS ORDERED: fentaNYL PF VIAL 100 MCG/2 ML VIAL IV PRN ×2 (12:30)
[2019-02-21] MEDS ORDERED: LIDOCAINE 1% PF 2 ML VIAL. ID PRN (12:30)
[2019-02-21] MEDS ORDERED: MIDAZOLAM HCL/PF 2 MG/2 ML VIAL. IV PRN (12:30)
--- NOTE | 2019-02-21 15:16 | PDOC4 ---
PROCEDURE Procedure EGD Indication: Odyno/dysphagia, nausea, vomiting Meds: per anesthesia Findings: E--Exudative changes with desquamation entire esophagus, partly from emesis. Discrete 8-10mm ulceration at GEJ, right wall. G--Large amount of retained liquid, most suctioned. Otherwise OK. D--1 cm ulcer anterior wall bulb with marked edema and functional obstruction, though able to get to second portion. Carina. well. IMP: Severe esophagitis with ulceration distally. Duodenal ulcer with functional obstruction due to marked edema. REC: NPO for now save ice chips, meds. Really needs PPI; continuous infusion for now. Consider TPN. Thanks KARLA ACEVES MD February 21, 2019 15:15
[2019-02-21] MEDS: PANTOPRAZOLE SODIUM IV DRIP 80 MG in IV NORMAL SALINE 100ML 100 ML IV SCH (16:42)
[2019-02-21] MEDS: ATORVASTATIN CALCIUM 40 MG TABLET. PO SCH (20:44)
[2019-02-21] MEDS: diphenhydrAMINE HCL 25 MG CAPSULE PO PRN (21:20)
[2019-02-22] VITALS (11 sets, daily range): BP systolic 86–175; BP diastolic 45–80
[2019-02-22] MEDS: PANTOPRAZOLE SODIUM IV DRIP 80 MG in IV NORMAL SALINE 100ML 100 ML IV SCH ×3 (02:00→16:17)
[2019-02-22] MEDS: IV NORMAL SALINE 1000ML BAG 1,000 ML IV SCH (02:43)
[2019-02-22 04:44] LABS: BASO % 0 % (0-3); EOS # 0.1 x10^3/uL (0.0-0.7); EOS % 1 % (0-3); HEMATOCRIT 24.1 % (39.0-53.0); LYMPH # 1.3 x10^3/uL (1.0-4.8); LYMPH % 6 % (24-48); MEAN CORPUSCULAR HEMOGLOBIN 31 pg (25-35); MEAN CORPUSCULAR HGB CONC 33 g/dL (31-37); MEAN CORPUSCULAR VOLUME 92 fL (79-100); MONO # 1.9 x10^3/uL (0.0-1.1); MONO % 9 % (0-9); NEUT # 18.4 x10^3uL (1.8-7.7); NEUT % 85 % (31-73); PLATELET COUNT 302 x10^3/uL (140-400); RED CELL DISTRIBUTION WIDTH 15.3 % (11.5-14.5); WHITE BLOOD COUNT 21.8 x10^3/uL (4.0-11.0)
[2019-02-22 05:08] LABS: ALBUMIN 1.3 g/dL (3.4-5.0); ALBUMIN/GLOBULIN RATIO 0.4 (1.0-1.7); CREATININE 1.3 mg/dL (0.7-1.3); GFR 52.7; POTASSIUM 3.6 mmol/L (3.5-5.1); TOTAL BILIRUBIN 0.6 mg/dL (0.2-1.0); TOTAL PROTEIN 4.4 g/dL (6.4-8.2)
[2019-02-22] MEDS: PIPERACILLIN/TAZOBACTAM 3.375 GM in IV NORMAL SALINE 50ML 50 ML IV SCH ×3 (05:58→17:53)
[2019-02-22] MEDS: ASPIRIN ENTERIC COATED 81 MG TABLET.DR. PO SCH (08:00)
--- NOTE | 2019-02-22 08:00 | PDOC ---
PROGRESS NOTES Chief Complaint Chief Complaint Status post lap cholecystectomy, 02/14/19 Postop status cyst/fulfills tachycardia tachypnea AK I VMN-creatinine 1.5 today from normal Sepsis - with fever and Leukocytosis, started on empiric Zosyn, zyvox History CVA, hypertension, dyslipidemia and GERD on medication Atrial fibrillation with RVR - rate controlled History of Present Illness History of Present Illness 83 yo M who came in for flulike symptoms. He came from home with the . Was treated. But course remarkable for developing either cholelithiasis or cholecystitis and underwent laparoscopic cholecystectomy on 02/14/19 bu postop course was remarkable for bleeding around the CRICKET drain and around the postop site that they had to redo him that same day but no exploratory laparoscopy done/needed. Taken to ICU for Afib with RVR on 02/17/19. He is on GI soft diet but with minimal intake. He is belching and c/o "reflux" symptoms and little appetite. NPO after EGD. Cr 1.4. Lactate was elevated, normalized after IVF. Still in afib on oral cardizem and metoprolol. Had multiple BM yesterday. CT abdomen shows possible biloma vs abscess near gallbladder fossa. Plan: S/p EGD - with 8-10mm ulceration at GEJ, right wall and 1 cm ulcer anterior wall bulb with marked edema and functional obstruction, started on PPI GTT Plan for NPO prolonged and down for PICC and TPN today Schedule nausea control Cont rate control meds oral Vitals Vitals Vital Signs Date Time Temp Pulse Resp B/P (MAP) Pulse Ox O2 Delivery O2 Flow Rate FiO2 02/22/19 07:00 97.5 88 18 138/61 (86) 93 Nasal Cannula 2.5 97.5 Physical Exam Physical Exam GENERAL: Alert, oriented gentleman, not in distress. VITAL SIGNS: Stable HEENT: Anicteric. NECK: Supple, no JVP, no lymphadenopathy. LUNGS: Clear. HEART: S1, S2 regular. ABDOMEN: Mildly diffusely tender, no rebound or guarding. No organomegaly appreciated. CRICKET is in place. EXTREMITIES: No edema, cyanosis. SKIN: Unremarkable. NEUROLOGIC: The patient is alert, awake and appropriate. No focal neurologic deficit. General: Alert, Oriented X3, Cooperative, No acute distress Heart: Other (IRRR; tele AFIB with controlled rate) Lungs: Clear Abdomen: Soft (ND, NTTP, cricket serosang) Extremities: Other (trace bialteral LE edema ) Skin: No rashes Labs LABS Laboratory Tests Test 02/22/19 04:15 White Blood Count 21.8 x10^3/uL (4.0-11.0) Red Blood Count 2.60 x10^6/uL (4.30-5.70) Hemoglobin 8.0 g/dL (13.0-17.5) Hematocrit 24.1 % (39.0-53.0) Mean Corpuscular Volume 92 fL (79-100) Mean Corpuscular Hemoglobin 31 pg (25-35) Mean Corpuscular Hemoglobin Concent 33 g/dL (31-37) Red Cell Distribution Width 15.3 % (11.5-14.5) Platelet Count 302 x10^3/uL (140-400) Neutrophils (%) (Auto) 85 % (31-73) Lymphocytes (%) (Auto) 6 % (24-48) Monocytes (%) (Auto) 9 % (0-9) Eosinophils (%) (Auto) 1 % (0-3) Basophils (%) (Auto) 0 % (0-3) Neutrophils # (Auto) 18.4 x10^3uL (1.8-7.7) Lymphocytes # (Auto) 1.3 x10^3/uL (1.0-4.8) Monocytes # (Auto) 1.9 x10^3/uL (0.0-1.1) Eosinophils # (Auto) 0.1 x10^3/uL (0.0-0.7) Basophils # (Auto) 0.0 x10^3/uL (0.0-0.2) Sodium Level 142 mmol/L (136-145) Potassium Level 3.6 mmol/L (3.5-5.1) Chloride Level 111 mmol/L (98-107) Carbon Dioxide Level 23 mmol/L (21-32) Anion Gap 8 (6-14) Blood Urea Nitrogen 28 mg/dL (8-26) Creatinine 1.3 mg/dL (0.7-1.3) Estimated GFR (Cockcroft-Gault) 52.7 BUN/Creatinine Ratio 22 (6-20) Glucose Level 113 mg/dL (70-99) Calcium Level 8.0 mg/dL (8.5-10.1) Total Bilirubin 0.6 mg/dL (0.2-1.0) Aspartate Amino Transf (AST/SGOT) 45 U/L (15-37) Alanine Aminotransferase (ALT/SGPT) 41 U/L (16-63) Alkaline Phosphatase 137 U/L (46-116) Total Protein 4.4 g/dL (6.4-8.2) Albumin 1.3 g/dL (3.4-5.0) Albumin/Globulin Ratio 0.4 (1.0-1.7) Comment Review of Relevant I have reviewed the following items timoteo (where applicable) has been applied. Labs Laboratory Tests Test 02/22/19 04:15 White Blood Count 21.8 x10^3/uL (4.0-11.0) Red Blood Count 2.60 x10^6/uL (4.30-5.70) Hemoglobin 8.0 g/dL (13.0-17.5) Hematocrit 24.1 % (39.0-53.0) Mean Corpuscular Volume 92 fL (79-100) Mean Corpuscular Hemoglobin 31 pg (25-35) Mean Corpuscular Hemoglobin Concent 33 g/dL (31-37) Red Cell Distribution Width 15.3 % (11.5-14.5) Platelet Count 302 x10^3/uL (140-400) Neutrophils (%) (Auto) 85 % (31-73) Lymphocytes (%) (Auto) 6 % (24-48) Monocytes (%) (Auto) 9 % (0-9) Eosinophils (%) (Auto) 1 % (0-3) Basophils (%) (Auto) 0 % (0-3) Neutrophils # (Auto) 18.4 x10^3uL (1.8-7.7) Lymphocytes # (Auto) 1.3 x10^3/uL (1.0-4.8) Monocytes # (Auto) 1.9 x10^3/uL (0.0-1.1) Eosinophils # (Auto) 0.1 x10^3/uL (0.0-0.7) Basophils # (Auto) 0.0 x10^3/uL (0.0-0.2) Sodium Level 142 mmol/L (136-145) Potassium Level 3.6 mmol/L (3.5-5.1) Chloride Level 111 mmol/L (98-107) Carbon Dioxide Level 23 mmol/L (21-32) Anion Gap 8 (6-14) Blood Urea Nitrogen 28 mg/dL (8-26) Creatinine 1.3 mg/dL (0.7-1.3) Estimated GFR (Cockcroft-Gault) 52.7 BUN/Creatinine Ratio 22 (6-20) Glucose Level 113 mg/dL (70-99) Calcium Level 8.0 mg/dL (8.5-10.1) Total Bilirubin 0.6 mg/dL (0.2-1.0) Aspartate Amino Transf (AST/SGOT) 45 U/L (15-37) Alanine Aminotransferase (ALT/SGPT) 41 U/L (16-63) Alkaline Phosphatase 137 U/L (46-116) Total Protein 4.4 g/dL (6.4-8.2) Albumin 1.3 g/dL (3.4-5.0) Albumin/Globulin Ratio 0.4 (1.0-1.7) Laboratory Tests Test 02/22/19 04:15 White Blood Count 21.8 x10^3/uL (4.0-11.0) Red Blood Count 2.60 x10^6/uL (4.30-5.70) Hemoglobin 8.0 g/dL (13.0-17.5) Hematocrit 24.1 % (39.0-53.0) Mean Corpuscular Volume 92 fL (79-100) Mean Corpuscular Hemoglobin 31 pg (25-35) Mean Corpuscular Hemoglobin Concent 33 g/dL (31-37) Red Cell Distribution Width 15.3 % (11.5-14.5) Platelet Count 302 x10^3/uL (140-400) Neutrophils (%) (Auto) 85 % (31-73) Lymphocytes (%) (Auto) 6 % (24-48) Monocytes (%) (Auto) 9 % (0-9) Eosinophils (%) (Auto) 1 % (0-3) Basophils (%) (Auto) 0 % (0-3) Neutrophils # (Auto) 18.4 x10^3uL (1.8-7.7) Lymphocytes # (Auto) 1.3 x10^3/uL (1.0-4.8) Monocytes # (Auto) 1.9 x10^3/uL (0.0-1.1) Eosinophils # (Auto) 0.1 x10^3/uL (0.0-0.7) Basophils # (Auto) 0.0 x10^3/uL (0.0-0.2) Sodium Level 142 mmol/L (136-145) Potassium Level 3.6 mmol/L (3.5-5.1) Chloride Level 111 mmol/L (98-107) Carbon Dioxide Level 23 mmol/L (21-32) Anion Gap 8 (6-14) Blood Urea Nitrogen 28 mg/dL (8-26) Creatinine 1.3 mg/dL (0.7-1.3) Estimated GFR (Cockcroft-Gault) 52.7 BUN/Creatinine Ratio 22 (6-20) Glucose Level 113 mg/dL (70-99) Calcium Level 8.0 mg/dL (8.5-10.1) Total Bilirubin 0.6 mg/dL (0.2-1.0) Aspartate Amino Transf (AST/SGOT) 45 U/L (15-37) Alanine Aminotransferase (ALT/SGPT) 41 U/L (16-63) Alkaline Phosphatase 137 U/L (46-116) Total Protein 4.4 g/dL (6.4-8.2) Albumin 1.3 g/dL (3.4-5.0) Albumin/Globulin Ratio 0.4 (1.0-1.7) Microbiology 02/17/19 Blood Culture - Preliminary, Resulted NO GROWTH AFTER 4 DAYS 02/17/19 Urine Culture - Final, Complete 02/17/19 Urine Culture Result 1 (PETERSON) - Final, Complete Medications Current Medications Ondansetron HCl (Zofran) 4 mg PRN Q6HRS PRN IV NAUSEA/VOMITING; Start 02/14/19 at 07:00; Stop 02/14/19 at 20:00; Status DC Fentanyl Citrate (Fentanyl 2ml Vial) 25 mcg PRN Q5MIN PRN IV MILD PAIN Last administered on 02/14/19at 14:28; Start 02/14/19 at 07:00; Stop 02/14/19 at 20:00; Status DC Fentanyl Citrate (Fentanyl 2ml Vial) 50 mcg PRN Q5MIN PRN IV MODERATE TO SEVERE PAIN; Start 02/14/19 at 07:00; Stop 02/14/19 at 20:00; Status DC Morphine Sulfate (Morphine Sulfate) 1 mg PRN Q10MIN PRN IV SEVERE PAIN; Start 02/14/19 at 07:00; Stop 02/14/19 at 20:00; Status DC Ringer's Solution 1,000 ml @ 30 mls/hr Q24H IV Last administered on 02/14/19at 07:52; Start 02/14/19 at 07:00; Stop 02/14/19 at 18:59; Status DC Lidocaine HCl (Xylocaine-Mpf 1% 2ml Vial) 2 ml PRN 1X PRN ID PRIOR TO IV START; Start 02/14/19 at 07:00; Stop 02/14/19 at 20:00; Status DC Hydromorphone HCl (Dilaudid) 0.5 mg PRN Q10MIN PRN IV SEV PAIN, Second choice; Start 02/14/19 at 07:00; Stop 02/14/19 at 20:00; Status DC Prochlorperazine Edisylate (Compazine) 5 mg PACU PRN PRN IV NAUSEA, MRX1; Start 02/14/19 at 07:00; Stop 02/14/19 at 20:00; Status DC Cefazolin Sodium/ Dextrose 50 ml @ 100 mls/hr 1X PREOP PRN IV PRIOR TO PROCEDURE Last administered on 02/14/19at 11:21; Start 02/14/19 at 06:00; Stop 02/14/19 at 18:00; Status DC Propofol 20 ml @ As Directed STK-MED ONCE IV ; Start 02/14/19 at 08:17; Stop 02/14/19 at 08:18; Status DC Lidocaine HCl (Lidocaine Pf 2% Vial) 5 ml STK-MED ONCE .ROUTE ; Start 02/14/19 at 08:17; Stop 02/14/19 at 08:18; Status DC Ondansetron HCl (Zofran) 4 mg STK-MED ONCE .ROUTE ; Start 02/14/19 at 08:17; Stop 02/14/19 at 08:18; Status DC Dexamethasone Sodium Phosphate (Decadron) 4 mg STK-MED ONCE .ROUTE ; Start 02/14/19 at 08:17; Stop 02/14/19 at 08:18; Status DC Sevoflurane (Ultane) 60 ml STK-MED ONCE IH ; Start 02/14/19 at 08:17; Stop 02/14/19 at 08:18; Status DC Rocuronium [place] (Zemuron) 50 mg STK-MED ONCE .ROUTE ; Start 02/14/19 at 08:17; Stop 02/14/19 at 08:18; Status DC Fentanyl Citrate (Fentanyl 2ml Vial) 100 mcg STK-MED ONCE .ROUTE ; Start 02/14/19 at 08:39; Stop 02/14/19 at 08:40; Status DC Bupivacaine HCl/ Epinephrine Bitart (Sensorcain-Mpf Epi 0.5%-[id number]) 30 ml STK-MED ONCE .ROUTE Last administered on 02/14/19at 11:48; Start 02/14/19 at 10:01; Stop 02/14/19 at 11:02; Status DC Glucagon (Glucagen) 1 mg STK-MED ONCE .ROUTE ; Start 02/14/19 at 10:01; Stop 02/14/19 at 11:02; Status DC Iohexol (Omnipaque 300 Mg/ml) 100 ml STK-MED ONCE .ROUTE Last administered on 02/14/19at 11:48; Start 02/14/19 at 10:01; Stop 02/14/19 at 11:02; Status DC Cellulose (Surgicel Hemostat 4x8) 1 each STK-MED ONCE .ROUTE Last administered on 02/14/19at 13:12; Start 02/14/19 at 10:01; Stop 02/14/19 at 11:02; Status DC Cellulose (Surgicel Hemostat 4x8) 1 each STK-MED ONCE .ROUTE Last administered on 02/14/19at 13:31; Start 02/14/19 at 11:19; Stop 02/14/19 at 12:19; Status DC Famotidine (Pepcid Vial) 20 mg STK-MED ONCE .ROUTE ; Start 02/14/19 at 13:14; Stop 02/14/19 at 13:15; Status DC Diphenhydramine HCl (Benadryl) 50 mg STK-MED ONCE .ROUTE ; Start 02/14/19 at 13:14; Stop 02/14/19 at 13:15; Status DC Rocuronium [place] (Zemuron) 50 mg STK-MED ONCE .ROUTE ; Start 02/14/19 at 13:14; Stop 02/14/19 at 13:15; Status DC Fentanyl Citrate (Fentanyl 2ml Vial) 100 mcg STK-MED ONCE .ROUTE ; Start 02/14/19 at 13:15; Stop 02/14/19 at 13:16; Status DC Cellulose (Surgicel Hemostat 4x8) 1 each STK-MED ONCE .ROUTE ; Start 02/14/19 at 12:33; Stop 02/14/19 at 13:33; Status DC Diphenhydramine HCl (Benadryl) 25 mg PRN Q6HRS PRN PO ITCHING Last administered on 02/21/19at 21:20; Start 02/14/19 at 14:00 Sodium Chloride (Normal Saline Flush) 3 ml QSHIFT PRN IV AFTER MEDS AND BLOOD DRAWS; Start 02/14/19 at 14:00 Potassium Chloride/Sodium Chloride 1,000 ml @ 80 mls/hr [id number] IV Last administered on 02/17/19at 06:02; Start 02/14/19 at 15:00; Stop 02/17/19 at 12:54; Status DC Dextrose (Dextrose 50%-Water Syringe) 12.5 gm PRN Q15MIN PRN IV SEE COMMENTS; Start 02/14/19 at 14:00 Acetaminophen/ Hydrocodone Bitart (Lortab 5/325) 1 tab PRN Q4HRS PRN PO MILD PAIN Last administered on 02/17/19at 08:35; Start 02/14/19 at 14:00 Acetaminophen/ Hydrocodone Bitart (Lortab 5/325) 2 tab PRN Q4HRS PRN PO MODERATE PAIN, SEVERE PAIN Last administered on 02/17/19at 03:22; Start 02/14/19 at 14:00 Hydromorphone HCl (Dilaudid) 1 mg PRN Q4HRS PRN IV PAIN Last administered on 02/15/19at 17:46; Start 02/14/19 at 14:00 Docusate Sodium (Colace) 100 mg BID PO Last administered on 02/18/19at 22:19; Start 02/14/19 at 21:00 Ondansetron HCl (Zofran) 4 mg PRN Q6HRS PRN IV NAUESA, 1ST CHOICE Last administered on 02/19/19 04:09; Start 02/14/19 at 14:00; Stop 02/19/19 at 09:05; Status DC Atorvastatin Calcium (Lipitor) 40 mg QHS PO Last administered on 02/21/19 20:44; Start 02/14/19 at 21:00 Cyanocobalamin (Vitamin B-12) 1,000 mcg DAILY PO Last administered on 02/19/19 09:32; Start 02/15/19 at 09:00 Metoprolol Succinate (Toprol Xl) 25 mg DAILY PO Last administered on 02/20/19 07:53; Start 02/15/19 at 09:00; Stop 02/20/19 at 12:11; Status DC Tamsulosin HCl (Flomax) 0.4 mg DAILY PO Last administered on 02/21/19 08:34; Start 02/15/19 at 09:00 Losartan Potassium (Cozaar) 100 mg DAILY PO Last administered on 02/21/19 08:34; Start 02/15/19 at 09:00 Fentanyl Citrate (Fentanyl 2ml Vial) 100 mcg STK-MED ONCE .ROUTE ; Start 02/14/19 at 14:26; Stop 02/14/19 at 14:27; Status DC Bupivacaine HCl/ Epinephrine Bitart (Sensorcain-Mpf Epi 0.5%-1:[id number]) 30 ml STK-MED ONCE .ROUTE ; Start 02/14/19 at 15:13; Stop 02/14/19 at 16:14; Status DC Bacitracin (Bacitracin) 50,000 unit STK-MED ONCE IRR Last administered on 02/14/19at 16:49; Start 02/14/19 at 15:14; Stop 02/14/19 at 16:15; Status DC Sodium Chloride (SODIUM CHLORIDE 20ml) 20 ml STK-MED ONCE IJ ; Start 02/14/19 at 15:15; Stop 02/14/19 at 16:15; Status DC Cellulose (Surgicel Hemostat 4x8) 3 each STK-MED ONCE TP Last administered on 02/14/19at 16:49; Start 02/14/19 at 16:49; Stop 02/14/19 at 16:55; Status DC Cellulose (Surgicel Hemostat 4x8) 4 each 1X ONCE TP ; Start 02/14/19 at 17:15; Stop 02/14/19 at 17:16; Status DC Cefazolin Sodium/ Dextrose (Ancef 2gm Premix) 2 gm STK-MED ONCE IV ; Start 02/14/19 at 11:00; Stop 02/15/19 at 13:02; Status DC Piperacillin Sod/ Tazobactam Sod 3.375 gm/Sodium Chloride 50 ml @ 100 mls/hr Q6HRS IV Last administered on 02/22/19 05:58; Start 02/17/19 at 12:00 Sodium Chloride 1,000 ml @ 125 mls/hr Q8H IV Last administered on 02/22/19at 02:43; Start 02/17/19 at 13:00 Clopidogrel Bisulfate (Plavix) 75 mg DAILY PO Last administered on 02/21/19 08:33; Start 02/17/19 at 14:00 Vitamin D (Vitamin D3) 2,000 unit DAILY PO Last administered on 02/19/19at 09:31; Start 02/17/19 at 14:00 Multivitamins (Thera M Plus) 1 tab DAILY PO Last administered on 02/19/19 09:31; Start 02/17/19 at 14:00 Calcium Carbonate/ Glycine (Tums) 500 mg PRN AFTMEALHC PRN PO INDIGESTION Last administered on 02/18/19at 22:25; Start 02/17/19 at 15:00 Acetaminophen (Tylenol) 650 mg PRN Q6HRS PRN PO fever Last administered on 02/17/19at 23:50; Start 02/17/19 at 23:45; Stop 02/21/19 at 08:07; Status DC Sodium Chloride 500 ml @ 500 mls/hr 1X ONCE IV Last administered on 02/17/19at 23:48; Start 02/18/19 at 00:00; Stop 02/18/19 at 00:59; Status DC Diltiazem HCl 125 mg/Dextrose 125 ml @ 5 mls/hr CONT PRN IV SEE I/O RECORD Last administered on 02/18/19at 04:27; Start 02/18/19 at 04:15; Stop 02/18/19 at 16:09; Status DC Linezolid/Dextrose 300 ml @ 300 mls/hr Q12HR IV Last administered on 02/21/19 20:44; Start 02/18/19 at 09:00 Lactobacillus Rhamnosus (Culturelle) 1 cap BID PO Last administered on 02/21/19 20:44; Start 02/18/19 at 21:00 Diltiazem HCl (Cardizem 24hr Cd) 240 mg DAILY PO Last administered on 02/21/19 08:34; Start 02/18/19 at 12:30 Aspirin (Ecotrin) 81 mg DAILYWBKFT PO Last administered on 02/21/19 08:34; Start 02/18/19 at 16:15 Acetaminophen (Tylenol) 650 mg PRN Q6HRS PRN PO FEVER; Start 02/19/19 at 01:45 Acetaminophen (Tylenol Supp) 650 mg PRN Q6HRS PRN ME MILD PAIN/TEMP Last administered on 02/19/19at 02:18; Start 02/19/19 at 02:15 Norepinephrine Bitartrate 250 ml @ 1.875 mls/ hr CONT PRN IV SEE I/O RECORD; Start 02/19/19 at 07:30 Digoxin (Lanoxin) 250 mcg 1X ONCE IV Last administered on 02/19/19at 07:36; Start 02/19/19 at 07:30; Stop 02/19/19 at 07:31; Status DC Sodium Chloride 500 ml @ 500 mls/hr 1X ONCE IV Last administered on 02/19/19at 07:35; Start 02/19/19 at 07:30; Stop 02/19/19 at 08:29; Status DC Ondansetron HCl (Zofran) 4 mg Q6HRS IV Last administered on 02/20/19at 05:43; Start 02/19/19 at 12:00; Stop 02/20/19 at 10:56; Status DC Pantoprazole Sodium (Protonix) 40 mg BIDAC PO Last administered on 02/21/19 08:34; Start 02/19/19 at 16:30; Stop 02/21/19 at 15:18; Status DC Digoxin (Lanoxin) 250 mcg 1X ONCE IV Last administered on 02/19/19at 22:57; Start 02/19/19 at 23:00; Stop 02/19/19 at 23:01; Status DC Cellulose (Surgicel Hemostat 4x8) 1 each STK-MED ONCE .ROUTE ; Start 02/14/19 at 15:23; Stop 02/20/19 at 08:42; Status DC Cellulose (Surgicel Hemostat 4x8) 1 each STK-MED ONCE .ROUTE ; Start 02/14/19 at 15:50; Stop 02/20/19 at 08:42; Status DC Propofol 20 ml @ As Directed STK-MED ONCE IV ; Start 02/14/19 at 16:05; Stop 02/20/19 at 08:42; Status DC Famotidine (Pepcid Vial) 20 mg STK-MED ONCE .ROUTE ; Start 02/14/19 at 16:05; S top 02/20/19 at 08:42; Status DC Lidocaine HCl (Lidocaine Pf 2% Vial) 5 ml STK-MED ONCE .ROUTE ; Start 02/14/19 at 16:05; Stop 02/20/19 at 08:42; Status DC Ondansetron HCl (Zofran) 4 mg STK-MED ONCE .ROUTE ; Start 02/14/19 at 16:05; Stop 02/20/19 at 08:42; Status DC Rocuronium [place] (Zemuron) 100 mg STK-MED ONCE .ROUTE ; Start 02/14/19 at 16:05; Stop 02/20/19 at 08:42; Status DC Fentanyl Citrate (Fentanyl 2ml Vial) 100 mcg STK-MED ONCE .ROUTE ; Start 02/14/19 at 16:06; Stop 02/20/19 at 08:42; Status DC Dexamethasone Sodium Phosphate (Decadron) 4 mg STK-MED ONCE .ROUTE ; Start 02/14/19 at 16:06; Stop 02/20/19 at 08:42; Status DC Neostigmine Methylsulfate (Neostigmine Methylsulfate) 5 mg STK-MED ONCE .ROUTE ; Start 02/14/19 at 17:26; Stop 02/20/19 at 08:42; Status DC Glycopyrrolate (Robinul) 1 mg STK-MED ONCE .ROUTE ; Start 02/14/19 at 17:26; Stop 02/20/19 at 08:42; Status DC Ondansetron HCl (Zofran) 4 mg PRN Q6HRS PRN IV NAUSEA/VOMITING; Start 02/20/19 at 10:54 Metoprolol Tartrate (Lopressor) 25 mg BID PO Last administered on 02/21/19at 20:44; Start 02/20/19 at 12:15 Ringer's Solution 1,000 ml @ 50 mls/hr Q20H IV Last administered on 02/21/19at 14:47; Start 02/21/19 at 07:00; Stop 02/21/19 at 18:59; Status DC Midazolam HCl (Versed) 2 mg PRN 1X PRN IV PRIOR TO PROCEDURE; Start 02/21/19 at 12:30; Stop 02/22/19 at 12:29 Fentanyl Citrate (Fentanyl 2ml Vial) 25 mcg PRN Q5MIN PRN IV X 2 DOSES FOR PAIN; Start 02/21/19 at 12:30; Stop 02/22/19 at 12:29 Fentanyl Citrate (Fentanyl 2ml Vial) 50 mcg PRN Q5MIN PRN IV X 2 DOSES FOR PAIN; Start 02/21/19 at 12:30; Stop 02/22/19 at 12:29 Ringer's Solution 1,000 ml @ 125 mls/hr Q8H IV Last administered on 02/21/19at 12:27; Start 02/21/19 at 12:27; Stop 02/22/19 at 00:26; Status DC Lidocaine HCl (Xylocaine-Mpf 1% 2ml Vial) 2 ml 1X PRN PRN ID IV START; Start 02/21/19 at 12:30; Stop 02/22/19 at 12:29 Pantoprazole Sodium 80 mg/ Sodium Chloride 100 ml @ 10 mls/hr Q10H IV Last administered on 02/22/19at 02:44; Start 02/21/19 at 15:30 Active Scripts Active Atorvastatin Calcium 40 Mg Tablet 40 Mg PO QHS 30 Days Reported Flomax (Tamsulosin Hcl) 0.4 Mg Cap.er.24h 0.4 Mg PO DAILY Clopidogrel (Clopidogrel Bisulfate) 75 Mg Tablet 75 Mg PO DAILY Aspirin 81 Mg Tab.chew 1 Tab PO DAILY Vitamin B-12 (Cyanocobalamin (Vitamin B-12)) 1,000 Mcg Tablet 1 Tab PO DAILY Metoprolol Succinate ( Xl ) (Metoprolol Succinate) 25 Mg Tab.er.24h 1 Tab PO DAILY Losartan Potassium 100 Mg Tablet 100 Mg PO DAILY Multivitamins (Multivitamin) 1 Each Tablet 1 Tab PO DAILY Vitamin D (Cholecalciferol (Vitamin D3)) 2,000 Unit Capsule 1 Cap PO DAILY Vitals/I & O Vital Sign - Last 24 Hours 02/21/19 02/21/19 02/21/19 02/21/19 08:00 08:02 08:34 08:34 Pulse 96 95 95 Resp 18 B/P (MAP) 137/68 (91) 150/65 150/65 Pulse Ox 95 O2 Delivery Room Air Room Air 02/21/19 02/21/19 02/21/19 02/21/19 08:35 09:00 10:05 11:00 Temp 98.5 98.5 Pulse 95 94 87 95 Resp 18 18 18 B/P (MAP) 150/65 156/75 (102) 151/70 (97) 140/73 (95) Pulse Ox 94 94 95 O2 Delivery Room Air Room Air Room Air 02/21/19 02/21/19 02/21/19 02/21/19 14:38 14:38 15:10 15:25 Temp 97.9 98.2 97.9 98.2 Pulse 89 88 96 Resp 18 18 16 B/P (MAP) 90/52 123/58 Pulse Ox 90 95 93 O2 Delivery Room Air Nasal Cannula Room Air O2 Flow Rate 2.0 2 02/21/19 02/21/19 02/21/19 02/21/19 15:39 15:45 16:00 16:15 Temp 98.0 98.0 Pulse 80 103 103 106 Resp 18 18 18 18 B/P (MAP) 150/65 148/63 (91) 140/65 (90) 133/63 (86) Pulse Ox 93 94 94 96 O2 Delivery Room Air Nasal Cannula Nasal Cannula Nasal Cannula O2 Flow Rate 2.0 2.0 2.0 02/21/19 02/21/19 02/21/19 02/21/19 16:30 19:00 19:45 20:44 Temp 99.5 99.5 Pulse 113 110 110 Resp 18 20 B/P (MAP) 131/65 (87) 146/85 (105) 146/85 Pulse Ox 96 94 O2 Delivery Nasal Cannula Nasal Cannula Nasal Cannula O2 Flow Rate 2.0 2.0 2.0 02/21/19 02/22/19 02/22/193/19 23:00 03:00 04:45 04:45 Temp 99.1 99.2 98.1 99.1 99.2 98.1 Pulse 97 118 100 Resp 19 B/P (MAP) 131/66 (87) 128/60 (82) 156/55 (88) Pulse Ox 98 97 92 O2 Delivery Nasal Cannula Nasal Cannula Nasal Cannula Nasal Cannula O2 Flow Rate 2.0 2.0 4.0 2.5 02/22/19 07:00 Temp 97.5 97.5 Pulse 88 Resp 18 B/P (MAP) 138/61 (86) Pulse Ox 93 O2 Delivery Nasal Cannula O2 Flow Rate 2.5 Intake and Output 02/21/19 02/21/19 02/22/19 15:00 23:00 07:00 Intake Total 400 ml 2120 ml 1358 ml Output Total 225 ml 195 ml 425 ml Balance 175 ml 1925 ml 933 ml Nutrition Consultation Dietary Evaluation: Recommendations by RD: Increase Calorie Intake, Protein supplementation Comments: Continue w/GI soft diet at this time, honor food preferences, and provide snacks as requested REC Ensure w/lunch (only strawberry or vanilla) If PO intake does not improve >50% meals within next few days, recommend conisderation of PPN to supplement poor PO intake Expected Outcomes/Goals: PO intake to meet >75% est needs - not met, goal ongoing Malnutrition Findings: Food and Nutrition Intake (Sev: <50% est energy req 5days Weight Status: Appropriate ABIGAIL LIMON MD February 22, 2019 08:00
[2019-02-22] MEDS: MULTIVITAMIN with MINERAL TABLET. PO SCH (09:00)
[2019-02-22] MEDS: CYANOCOBALAMIN (VITAMIN B-12) 1,000 MCG TABLET. PO SCH (09:00)
[2019-02-22] MEDS: DOCUSATE SODIUM 100 MG CAPSULE. PO SCH ×2 (09:00→21:24)
[2019-02-22] MEDS: LOSARTAN POTASSIUM 50 MG TABLET. PO SCH (09:00)
[2019-02-22] MEDS: LACTOBACILLUS RHAMNOSUS GG 1 CAPSULE. PO SCH ×2 (09:00→21:24)
[2019-02-22] MEDS: CLOPIDOGREL BISULFATE 75 MG TABLET PO SCH (09:00)
[2019-02-22] MEDS: TAMSULOSIN 0.4 MG CAP.ER.24H. PO SCH (09:00)
[2019-02-22] MEDS: CHOLECALCIFEROL (VITAMIN D3) 1,000 UNIT TABLET PO SCH (09:00)
--- NOTE | 2019-02-22 09:01 | PDOC ---
SURGICAL PROGRESS NOTE Subjective Pt actually reports feeling well, not tolerating diet, however, denies significant pain Vital Signs Vital Signs Date Time Temp Pulse Resp B/P (MAP) Pulse Ox O2 Delivery O2 Flow Rate FiO2 02/22/19 07:00 97.5 88 18 138/61 (86) 93 Nasal Cannula 2.5 97.5 I&O Intake and Output 02/22/19 06:59 Intake Total 3878 ml Output Total 860 ml Balance 3018 ml Intake Oral 120 ml IV Total 3758 ml Output Urine Total 860 ml # Bowel Movements 3 General: Alert, Oriented X3, Cooperative, No acute distress HEENT: Atraumatic Abdomen: Soft, No tenderness, Other (NICOLAS serous, min purulent) Labs Laboratory Tests Test 02/22/19 04:15 White Blood Count 21.8 x10^3/uL (4.0-11.0) Red Blood Count 2.60 x10^6/uL (4.30-5.70) Hemoglobin 8.0 g/dL (13.0-17.5) Hematocrit 24.1 % (39.0-53.0) Mean Corpuscular Volume 92 fL (79-100) Mean Corpuscular Hemoglobin 31 pg (25-35) Mean Corpuscular Hemoglobin Concent 33 g/dL (31-37) Red Cell Distribution Width 15.3 % (11.5-14.5) Platelet Count 302 x10^3/uL (140-400) Neutrophils (%) (Auto) 85 % (31-73) Lymphocytes (%) (Auto) 6 % (24-48) Monocytes (%) (Auto) 9 % (0-9) Eosinophils (%) (Auto) 1 % (0-3) Basophils (%) (Auto) 0 % (0-3) Neutrophils # (Auto) 18.4 x10^3uL (1.8-7.7) Lymphocytes # (Auto) 1.3 x10^3/uL (1.0-4.8) Monocytes # (Auto) 1.9 x10^3/uL (0.0-1.1) Eosinophils # (Auto) 0.1 x10^3/uL (0.0-0.7) Basophils # (Auto) 0.0 x10^3/uL (0.0-0.2) Sodium Level 142 mmol/L (136-145) Potassium Level 3.6 mmol/L (3.5-5.1) Chloride Level 111 mmol/L (98-107) Carbon Dioxide Level 23 mmol/L (21-32) Anion Gap 8 (6-14) Blood Urea Nitrogen 28 mg/dL (8-26) Creatinine 1.3 mg/dL (0.7-1.3) Estimated GFR (Cockcroft-Gault) 52.7 BUN/Creatinine Ratio 22 (6-20) Glucose Level 113 mg/dL (70-99) Calcium Level 8.0 mg/dL (8.5-10.1) Total Bilirubin 0.6 mg/dL (0.2-1.0) Aspartate Amino Transf (AST/SGOT) 45 U/L (15-37) Alanine Aminotransferase (ALT/SGPT) 41 U/L (16-63) Alkaline Phosphatase 137 U/L (46-116) Total Protein 4.4 g/dL (6.4-8.2) Albumin 1.3 g/dL (3.4-5.0) Albumin/Globulin Ratio 0.4 (1.0-1.7) Laboratory Tests Test 02/22/19 04:15 White Blood Count 21.8 x10^3/uL (4.0-11.0) Red Blood Count 2.60 x10^6/uL (4.30-5.70) Hemoglobin 8.0 g/dL (13.0-17.5) Hematocrit 24.1 % (39.0-53.0) Mean Corpuscular Volume 92 fL (79-100) Mean Corpuscular Hemoglobin 31 pg (25-35) Mean Corpuscular Hemoglobin Concent 33 g/dL (31-37) Red Cell Distribution Width 15.3 % (11.5-14.5) Platelet Count 302 x10^3/uL (140-400) Neutrophils (%) (Auto) 85 % (31-73) Lymphocytes (%) (Auto) 6 % (24-48) Monocytes (%) (Auto) 9 % (0-9) Eosinophils (%) (Auto) 1 % (0-3) Basophils (%) (Auto) 0 % (0-3) Neutrophils # (Auto) 18.4 x10^3uL (1.8-7.7) Lymphocytes # (Auto) 1.3 x10^3/uL (1.0-4.8) Monocytes # (Auto) 1.9 x10^3/uL (0.0-1.1) Eosinophils # (Auto) 0.1 x10^3/uL (0.0-0.7) Basophils # (Auto) 0.0 x10^3/uL (0.0-0.2) Sodium Level 142 mmol/L (136-145) Potassium Level 3.6 mmol/L (3.5-5.1) Chloride Level 111 mmol/L (98-107) Carbon Dioxide Level 23 mmol/L (21-32) Anion Gap 8 (6-14) Blood Urea Nitrogen 28 mg/dL (8-26) Creatinine 1.3 mg/dL (0.7-1.3) Estimated GFR (Cockcroft-Gault) 52.7 BUN/Creatinine Ratio 22 (6-20) Glucose Level 113 mg/dL (70-99) Calcium Level 8.0 mg/dL (8.5-10.1) Total Bilirubin 0.6 mg/dL (0.2-1.0) Aspartate Amino Transf (AST/SGOT) 45 U/L (15-37) Alanine Aminotransferase (ALT/SGPT) 41 U/L (16-63) Alkaline Phosphatase 137 U/L (46-116) Total Protein 4.4 g/dL (6.4-8.2) Albumin 1.3 g/dL (3.4-5.0) Albumin/Globulin Ratio 0.4 (1.0-1.7) Assessment/Plan cholecystitis, s/p lap karie, 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
--- NOTE | 2019-02-22 10:22 | PDOC ---
PULMONARY PROGRESS NOTES Subjective PT BETTER ,NO SOA UP IN CHAIR Vitals Vital Signs Date Time Temp Pulse Resp B/P (MAP) Pulse Ox O2 Delivery O2 Flow Rate FiO2 02/22/19 08:00 Nasal Cannula 2.5 02/22/19 07:00 97.5 88 18 138/61 (86) 93 97.5 ROS: No Nausea, No Chest Pain, No Increase Cough General: Alert, No acute distress Lungs: Clear Cardiovascular: S1, S2 Abdomen: Soft Neuro Exam: Alert Extremities: Other (1+EDEMA) Skin: Warm Labs Laboratory Tests Test 02/22/19 04:15 White Blood Count 21.8 x10^3/uL (4.0-11.0) Red Blood Count 2.60 x10^6/uL (4.30-5.70) Hemoglobin 8.0 g/dL (13.0-17.5) Hematocrit 24.1 % (39.0-53.0) Mean Corpuscular Volume 92 fL (79-100) Mean Corpuscular Hemoglobin 31 pg (25-35) Mean Corpuscular Hemoglobin Concent 33 g/dL (31-37) Red Cell Distribution Width 15.3 % (11.5-14.5) Platelet Count 302 x10^3/uL (140-400) Neutrophils (%) (Auto) 85 % (31-73) Lymphocytes (%) (Auto) 6 % (24-48) Monocytes (%) (Auto) 9 % (0-9) Eosinophils (%) (Auto) 1 % (0-3) Basophils (%) (Auto) 0 % (0-3) Neutrophils # (Auto) 18.4 x10^3uL (1.8-7.7) Lymphocytes # (Auto) 1.3 x10^3/uL (1.0-4.8) Monocytes # (Auto) 1.9 x10^3/uL (0.0-1.1) Eosinophils # (Auto) 0.1 x10^3/uL (0.0-0.7) Basophils # (Auto) 0.0 x10^3/uL (0.0-0.2) Sodium Level 142 mmol/L (136-145) Potassium Level 3.6 mmol/L (3.5-5.1) Chloride Level 111 mmol/L (98-107) Carbon Dioxide Level 23 mmol/L (21-32) Anion Gap 8 (6-14) Blood Urea Nitrogen 28 mg/dL (8-26) Creatinine 1.3 mg/dL (0.7-1.3) Estimated GFR (Cockcroft-Gault) 52.7 BUN/Creatinine Ratio 22 (6-20) Glucose Level 113 mg/dL (70-99) Calcium Level 8.0 mg/dL (8.5-10.1) Total Bilirubin 0.6 mg/dL (0.2-1.0) Aspartate Amino Transf (AST/SGOT) 45 U/L (15-37) Alanine Aminotransferase (ALT/SGPT) 41 U/L (16-63) Alkaline Phosphatase 137 U/L (46-116) Total Protein 4.4 g/dL (6.4-8.2) Albumin 1.3 g/dL (3.4-5.0) Albumin/Globulin Ratio 0.4 (1.0-1.7) Laboratory Tests Test 02/22/19 04:15 White Blood Count 21.8 x10^3/uL (4.0-11.0) Red Blood Count 2.60 x10^6/uL (4.30-5.70) Hemoglobin 8.0 g/dL (13.0-17.5) Hematocrit 24.1 % (39.0-53.0) Mean Corpuscular Volume 92 fL (79-100) Mean Corpuscular Hemoglobin 31 pg (25-35) Mean Corpuscular Hemoglobin Concent 33 g/dL (31-37) Red Cell Distribution Width 15.3 % (11.5-14.5) Platelet Count 302 x10^3/uL (140-400) Neutrophils (%) (Auto) 85 % (31-73) Lymphocytes (%) (Auto) 6 % (24-48) Monocytes (%) (Auto) 9 % (0-9) Eosinophils (%) (Auto) 1 % (0-3) Basophils (%) (Auto) 0 % (0-3) Neutrophils # (Auto) 18.4 x10^3uL (1.8-7.7) Lymphocytes # (Auto) 1.3 x10^3/uL (1.0-4.8) Monocytes # (Auto) 1.9 x10^3/uL (0.0-1.1) Eosinophils # (Auto) 0.1 x10^3/uL (0.0-0.7) Basophils # (Auto) 0.0 x10^3/uL (0.0-0.2) Sodium Level 142 mmol/L (136-145) Potassium Level 3.6 mmol/L (3.5-5.1) Chloride Level 111 mmol/L (98-107) Carbon Dioxide Level 23 mmol/L (21-32) Anion Gap 8 (6-14) Blood Urea Nitrogen 28 mg/dL (8-26) Creatinine 1.3 mg/dL (0.7-1.3) Estimated GFR (Cockcroft-Gault) 52.7 BUN/Creatinine Ratio 22 (6-20) Glucose Level 113 mg/dL (70-99) Calcium Level 8.0 mg/dL (8.5-10.1) Total Bilirubin 0.6 mg/dL (0.2-1.0) Aspartate Amino Transf (AST/SGOT) 45 U/L (15-37) Alanine Aminotransferase (ALT/SGPT) 41 U/L (16-63) Alkaline Phosphatase 137 U/L (46-116) Total Protein 4.4 g/dL (6.4-8.2) Albumin 1.3 g/dL (3.4-5.0) Albumin/Globulin Ratio 0.4 (1.0-1.7) Medications Active Scripts Medications Dose Route/Sig Max Daily Dose Days Date Category Flomax (Tamsulosin Hcl) 0.4 Mg Cap.er.24h 0.4 Mg PO DAILY 02/13/19 Reported Clopidogrel (Clopidogrel Bisulfate) 75 Mg Tablet 75 Mg PO DAILY 02/13/19 Reported Aspirin 81 Mg Tab.chew 1 Tab PO DAILY 02/13/19 Reported Vitamin B-12 (Cyanocobalamin (Vitamin B-12)) 1,000 Mcg Tablet 1 Tab PO DAILY 12/25/18 Reported Metoprolol Succinate ( Xl ) (Metoprolol Succinate) 25 Mg Tab.er.24h 1 Tab PO DAILY 12/25/18 Reported Losartan Potassium 100 Mg Tablet 100 Mg PO DAILY 12/25/18 Reported Atorvastatin Calcium 40 Mg Tablet 40 Mg PO QHS 30 06/27/17 Rx Multivitamins (Multivitamin) 1 Each Tablet 1 Tab PO DAILY 08/12/15 Reported Vitamin D (Cholecalciferol (Vitamin D3)) 2,000 Unit Capsule 1 Cap PO DAILY 08/12/15 Reported Impression . IMPRESSION: 1. Expected hypoxemic respiratory failure. 2. Status post laparoscopic cholecystectomy with cholangiogram. 3. Status post exploratory laparotomy for hemoperitoneum on 02/14. 4. Abnormal x-ray compatible with atelectasis and effusion, suspect related to intra-abdominal inflammation and possible infection. 5. Leukocytosis. 6. History of cerebrovascular accident, hypertension 7. Hyperlipidemia. 8. Transient atrial fibrillation. 9. Acute blood loss anemia 02/20 Impression: 1. There is a air/ fluid collection identified in the gallbladder fossa region measuring 8.2 x 4.7 cm. Differential includes abscess or focal biloma, if there has been a recent cholecystectomy. A HIDA scan may be helpful. A drain tubing is identified in the gallbladder fossa region. 2. Punctate foci of air identified in the right upper quadrant of the abdomen with surrounding inflammatory fat stranding probably secondary to recent surgery. Correlate clinically. 3. Bibasilar lung consolidation changes likely pneumonia or atelectasis with collapse and consolidation of the right middle lobe of the lung. Bilateral pleural effusions , right greater than left. 4. Mild thickened appearance of the wall of the colon throughout could be due to nondistention or mild colitis. Plan . PER SURGERY MONITOR H/H/ IR to evaluate for drainage of abd fluid collection, as well as check PIPPDA to check for bile leak bowel rest and TPN RESP STATUS STABLE UP TO CHAIR PT IV ANTIBX PER ID MONITOR CXR NEEDED NUTRITION PER SURGERY MELODY CURRIE MD February 22, 2019 10:22
[2019-02-22] MEDS: METOPROLOL TARTRATE 5 MG/5 ML VIAL. IVP SCH ×2 (11:57→18:06)
[2019-02-22] MEDS ORDERED: LIDOCAINE WITH 8.4% SOD BICARB 3 ML DISP.SYRIN. ONE (12:08)
--- NOTE | 2019-02-22 12:13 | PDOC ---
Infectious Disease Note Subjective Subjective feeling ok ROS ROS no n/v/d/sob Vital Sign Vital Signs Vital Signs Date Time Temp Pulse Resp B/P (MAP) Pulse Ox O2 Delivery O2 Flow Rate FiO2 02/22/19 11:57 96 117/45 02/22/19 11:00 97.8 18 96 Nasal Cannula 2.5 97.8 Physical Exam PHYSICAL EXAM GENERAL: Alert, oriented gentleman, not in distress. VITAL SIGNS: Stable HEENT: Anicteric. NECK: Supple, no JVP, no lymphadenopathy. LUNGS: Clear. HEART: S1, S2 regular. ABDOMEN: Mildly diffusely tender, no rebound or guarding. No organomegaly appreciated. NICOLAS is in place. EXTREMITIES: No edema, cyanosis. SKIN: Unremarkable. NEUROLOGIC: The patient is alert, awake and appropriate. No focal neurologic deficit. Labs Lab Laboratory Tests Test 02/22/19 04:15 02/22/19 10:50 White Blood Count 21.8 x10^3/uL (4.0-11.0) Red Blood Count 2.60 x10^6/uL (4.30-5.70) Hemoglobin 8.0 g/dL (13.0-17.5) Hematocrit 24.1 % (39.0-53.0) Mean Corpuscular Volume 92 fL (79-100) Mean Corpuscular Hemoglobin 31 pg (25-35) Mean Corpuscular Hemoglobin Concent 33 g/dL (31-37) Red Cell Distribution Width 15.3 % (11.5-14.5) Platelet Count 302 x10^3/uL (140-400) Neutrophils (%) (Auto) 85 % (31-73) Lymphocytes (%) (Auto) 6 % (24-48) Monocytes (%) (Auto) 9 % (0-9) Eosinophils (%) (Auto) 1 % (0-3) Basophils (%) (Auto) 0 % (0-3) Neutrophils # (Auto) 18.4 x10^3uL (1.8-7.7) Lymphocytes # (Auto) 1.3 x10^3/uL (1.0-4.8) Monocytes # (Auto) 1.9 x10^3/uL (0.0-1.1) Eosinophils # (Auto) 0.1 x10^3/uL (0.0-0.7) Basophils # (Auto) 0.0 x10^3/uL (0.0-0.2) Sodium Level 142 mmol/L (136-145) Potassium Level 3.6 mmol/L (3.5-5.1) Chloride Level 111 mmol/L (98-107) Carbon Dioxide Level 23 mmol/L (21-32) Anion Gap 8 (6-14) Blood Urea Nitrogen 28 mg/dL (8-26) Creatinine 1.3 mg/dL (0.7-1.3) Estimated GFR (Cockcroft-Gault) 52.7 BUN/Creatinine Ratio 22 (6-20) Glucose Level 113 mg/dL (70-99) Calcium Level 8.0 mg/dL (8.5-10.1) Total Bilirubin 0.6 mg/dL (0.2-1.0) Aspartate Amino Transf (AST/SGOT) 45 U/L (15-37) Alanine Aminotransferase (ALT/SGPT) 41 U/L (16-63) Alkaline Phosphatase 137 U/L (46-116) Total Protein 4.4 g/dL (6.4-8.2) Albumin 1.3 g/dL (3.4-5.0) Albumin/Globulin Ratio 0.4 (1.0-1.7) Prothrombin Time 16.0 SEC (11.7-14.0) Prothromb Time International Ratio 1.3 (0.8-1.1) Activated Partial Thromboplast Time 32 SEC (24-38) Micro Microbiology 02/17/19 Blood Culture - Preliminary, Resulted NO GROWTH AFTER 1 DAY Objective Assessment 1. Fever. 2. Leukocytosis may have been partly related to the steroids that he got during surgery. 3. Status post cholecystectomy. 4. Hypertension. 5. Hyperlipidemia. 6. Atrial fibrillation. Plan Plan of Care cont zosyn and zyvox supportive care up in chair/PT/OT ct chest, abd and pelvis Impression: 1. There is a air/ fluid collection identified in the gallbladder fossa region measuring 8.2 x 4.7 cm. Differential includes abscess or focal biloma, if there has been a recent cholecystectomy. A HIDA scan may be helpful. A drain tubing is identified in the gallbladder fossa region. 2. Punctate foci of air identified in the right upper quadrant of the abdomen with surrounding inflammatory fat stranding probably secondary to recent surgery. Correlate clinically. 3. Bibasilar lung consolidation changes likely pneumonia or atelectasis with collapse and consolidation of the right middle lobe of the lung. Bilateral pleural effusions , right greater than left. 4. Mild thickened appearance of the wall of the colon throughout could be due to nondistention or mild colitis. EGD PUD cont supportive care LORENA POWELL MD February 22, 2019 12:13
[2019-02-22] MEDS ORDERED: fentaNYL PF VIAL 100 MCG/2 ML VIAL ONE (12:21)
[2019-02-22] MEDS ORDERED: MIDAZOLAM HCL/PF 2 MG/2 ML VIAL. ONE (12:21)
[2019-02-22] MEDS ORDERED: LIDOCAINE WITH 8.4% SOD BICARB 3 ML DISP.SYRIN. IJ ONE (12:30)
[2019-02-22] MEDS ORDERED: MIDAZOLAM HCL/PF 2 MG/2 ML VIAL. IV ONE (12:30)
[2019-02-22] MEDS ORDERED: fentaNYL PF VIAL 100 MCG/2 ML VIAL IV ONE (12:30)
--- NOTE | 2019-02-22 14:40 | PDOC ---
G I PROGRESS NOTE Subjective Few specific complaints. S/p percutaneous drainage of RUQ fluid. Going for PIPIDA. Now has PICC. Physical Exam Lungs clear. IRRR Abdomen soft, not distended nor tender. Review of Relevant I have reviewed the following items timoteo (where applicable) has been applied. Labs Laboratory Tests Test 02/22/19 04:15 02/22/19 10:50 White Blood Count 21.8 x10^3/uL (4.0-11.0) Red Blood Count 2.60 x10^6/uL (4.30-5.70) Hemoglobin 8.0 g/dL (13.0-17.5) Hematocrit 24.1 % (39.0-53.0) Mean Corpuscular Volume 92 fL (79-100) Mean Corpuscular Hemoglobin 31 pg (25-35) Mean Corpuscular Hemoglobin Concent 33 g/dL (31-37) Red Cell Distribution Width 15.3 % (11.5-14.5) Platelet Count 302 x10^3/uL (140-400) Neutrophils (%) (Auto) 85 % (31-73) Lymphocytes (%) (Auto) 6 % (24-48) Monocytes (%) (Auto) 9 % (0-9) Eosinophils (%) (Auto) 1 % (0-3) Basophils (%) (Auto) 0 % (0-3) Neutrophils # (Auto) 18.4 x10^3uL (1.8-7.7) Lymphocytes # (Auto) 1.3 x10^3/uL (1.0-4.8) Monocytes # (Auto) 1.9 x10^3/uL (0.0-1.1) Eosinophils # (Auto) 0.1 x10^3/uL (0.0-0.7) Basophils # (Auto) 0.0 x10^3/uL (0.0-0.2) Sodium Level 142 mmol/L (136-145) Potassium Level 3.6 mmol/L (3.5-5.1) Chloride Level 111 mmol/L (98-107) Carbon Dioxide Level 23 mmol/L (21-32) Anion Gap 8 (6-14) Blood Urea Nitrogen 28 mg/dL (8-26) Creatinine 1.3 mg/dL (0.7-1.3) Estimated GFR (Cockcroft-Gault) 52.7 BUN/Creatinine Ratio 22 (6-20) Glucose Level 113 mg/dL (70-99) Calcium Level 8.0 mg/dL (8.5-10.1) Total Bilirubin 0.6 mg/dL (0.2-1.0) Aspartate Amino Transf (AST/SGOT) 45 U/L (15-37) Alanine Aminotransferase (ALT/SGPT) 41 U/L (16-63) Alkaline Phosphatase 137 U/L (46-116) Total Protein 4.4 g/dL (6.4-8.2) Albumin 1.3 g/dL (3.4-5.0) Albumin/Globulin Ratio 0.4 (1.0-1.7) Prothrombin Time 16.0 SEC (11.7-14.0) Prothromb Time International Ratio 1.3 (0.8-1.1) Activated Partial Thromboplast Time 32 SEC (24-38) Laboratory Tests Test 02/22/19 04:15 02/22/19 10:50 White Blood Count 21.8 x10^3/uL (4.0-11.0) Red Blood Count 2.60 x10^6/uL (4.30-5.70) Hemoglobin 8.0 g/dL (13.0-17.5) Hematocrit 24.1 % (39.0-53.0) Mean Corpuscular Volume 92 fL (79-100) Mean Corpuscular Hemoglobin 31 pg (25-35) Mean Corpuscular Hemoglobin Concent 33 g/dL (31-37) Red Cell Distribution Width 15.3 % (11.5-14.5) Platelet Count 302 x10^3/uL (140-400) Neutrophils (%) (Auto) 85 % (31-73) Lymphocytes (%) (Auto) 6 % (24-48) Monocytes (%) (Auto) 9 % (0-9) Eosinophils (%) (Auto) 1 % (0-3) Basophils (%) (Auto) 0 % (0-3) Neutrophils # (Auto) 18.4 x10^3uL (1.8-7.7) Lymphocytes # (Auto) 1.3 x10^3/uL (1.0-4.8) Monocytes # (Auto) 1.9 x10^3/uL (0.0-1.1) Eosinophils # (Auto) 0.1 x10^3/uL (0.0-0.7) Basophils # (Auto) 0.0 x10^3/uL (0.0-0.2) Sodium Level 142 mmol/L (136-145) Potassium Level 3.6 mmol/L (3.5-5.1) Chloride Level 111 mmol/L (98-107) Carbon Dioxide Level 23 mmol/L (21-32) Anion Gap 8 (6-14) Blood Urea Nitrogen 28 mg/dL (8-26) Creatinine 1.3 mg/dL (0.7-1.3) Estimated GFR (Cockcroft-Gault) 52.7 BUN/Creatinine Ratio 22 (6-20) Glucose Level 113 mg/dL (70-99) Calcium Level 8.0 mg/dL (8.5-10.1) Total Bilirubin 0.6 mg/dL (0.2-1.0) Aspartate Amino Transf (AST/SGOT) 45 U/L (15-37) Alanine Aminotransferase (ALT/SGPT) 41 U/L (16-63) Alkaline Phosphatase 137 U/L (46-116) Total Protein 4.4 g/dL (6.4-8.2) Albumin 1.3 g/dL (3.4-5.0) Albumin/Globulin Ratio 0.4 (1.0-1.7) Prothrombin Time 16.0 SEC (11.7-14.0) Prothromb Time International Ratio 1.3 (0.8-1.1) Activated Partial Thromboplast Time 32 SEC (24-38) Microbiology 02/17/19 Blood Culture - Preliminary, Resulted NO GROWTH AFTER 4 DAYS 02/17/19 Urine Culture - Final, Complete 02/17/19 Urine Culture Result 1 (PETERSON) - Final, Complete Vitals/I & O Vital Sign - Last 24 Hours 02/21/19 02/21/19 02/21/19 02/21/19 14:38 14:38 15:10 15:25 Temp 97.9 98.2 97.9 98.2 Pulse 89 88 96 Resp 18 18 16 B/P (MAP) 90/52 123/58 Pulse Ox 90 95 93 O2 Delivery Room Air Nasal Cannula Room Air O2 Flow Rate 2.0 2 5/12/1102/21/19 02/21/19 02/21/19 15:39 15:45 16:00 16:15 Temp 98.0 98.0 Pulse 80 103 103 106 Resp 18 B/P (MAP) 150/65 148/63 (91) 140/65 (90) 133/63 (86) Pulse Ox 93 94 94 96 O2 Delivery Room Air Nasal Cannula Nasal Cannula Nasal Cannula O2 Flow Rate 2.0 2.0 2.0 02/21/19 02/21/19 02/21/19 02/21/19 16:30 19:00 19:45 20:44 Temp 99.5 99.5 Pulse 113 110 110 Resp B/P (MAP) 131/65 (87) 146/85 (105) 146/85 Pulse Ox 96 94 O2 Delivery Nasal Cannula Nasal Cannula Nasal Cannula O2 Flow Rate 2.0 2.0 2.0 02/21/19 02/22/19 02/22/19 02/22/19 23:00 03:00 04:45 04:45 Temp 99.1 99.2 98.1 99.1 99.2 98.1 Pulse 97 118 100 Resp B/P (MAP) 131/66 (87) 128/60 (82) 156/55 (88) Pulse Ox 98 97 92 O2 Delivery Nasal Cannula Nasal Cannula Nasal Cannula Nasal Cannula O2 Flow Rate 2.0 2.0 4.0 2.5 02/22/19 02/22/19 02/22/19 02/22/19 07:00 08:00 11:00 11:57 Temp 97.5 97.8 97.5 97.8 Pulse 88 96 96 Resp B/P (MAP) 138/61 (86) 117/45 (69) 117/45 Pulse Ox 93 96 O2 Delivery Nasal Cannula Nasal Cannula Nasal Cannula O2 Flow Rate 2.5 2.5 2.5 02/22/19 02/22/19 02/22/19 02/22/19 12:45 12:51 12:56 13:02 Pulse 95 85 81 Resp Pulse Ox 100 93 95 94 O2 Delivery Nasal Cannula Nasal Cannula Nasal Cannula Nasal Cannula O2 Flow Rate 2.0 2.0 2.0 2.0 02/22/19 02/22/19 13:03 13:53 Pulse 86 108 Resp 21 21 B/P (MAP) 175/72 (106) Pulse Ox 93 93 O2 Delivery Nasal Cannula Nasal Cannula O2 Flow Rate 2.0 2.0 Intake and Output 02/21/19 02/21/19 02/22/19 14:59 22:59 06:59 Intake Total 400 ml 2060 ml 1418 ml Output Total 240 ml 20 ml 600 ml Balance 160 ml 2040 ml 818 ml Images Discussed with Dr. Ervin; fluid from collection not particularly bilious. Assessment Functional GOO secondary to DU with marked edema. Secondary severe esophagitis. RUQ fluid collection--hematoma? Plan of Care Note Continue bowel rest; to start TPN. Continue PPI IV. Await pending studies. --off the . Coverage available if needed. Will re-evaluate Monday. KARLA ACEVES MD February 22, 2019 14:40
--- NOTE | 2019-02-22 15:01 | RAD ---
Exam: Fluoroscopic and ultrasound guided right percutaneous inserted central venous catheter placement 02/22/2019 2:57 PM .Indication: picc for TPN Technique: Informed oral and written consent were obtained. The right upper extremity was prepped and draped using sterile barrier technique. All elements of maximal sterile barrier technique including the use of a cap, mask, sterile gown, sterile gloves, large sterile sheet, appropriate hand hygiene, and 2% chlorhexidine for cutaneous antisepsis (or acceptable alternative antiseptic per current guidelines) were followed for this procedure.. Real-time ultrasound demonstrated a patent right basilic vein. The right upper extremity was prepped and draped in usual sterile fashion. 1% lidocaine used for local anesthesia. Using real-time ultrasound guidance the access needle percutaneously punctured the selected vein. Reference ultrasound images were saved to the medical record. A guidewire was advanced through the needle to the cavoatrial junction, and a peel-away sheath placed. The catheter was cut to length and inserted through the peel-away sheath such that its tip is at the cavoatrial junction. The wire and sheath were removed, and the catheter secured in place, and a sterile dressing was applied. Catheter was found to flush and aspirate normally. No immediate complications are identified. FLUORO TIME: 1.2 Minutes DOSE AREA PRODUCT: 1.26 Gycm2 Impression: Ultrasound and fluoroscopically guided placement of a right upper extremity PICC line.
--- NOTE | 2019-02-22 15:23 | RAD ---
CT-guided drainage, gallbladder fossa fluid collection 02/22/2019 Indication: Gas and fluid collection in the gallbladder fossa, uncertain sterility. Recent cholecystectomy Discussion: The risks and benefits of the procedure were discussed the patient. Informed consent was obtained. The patient transferred the CT scanner and placed in the supine position. Timeout procedure was performed. The right upper abdomen was prepped and draped using sterile barrier technique. CT imaging redemonstrates gas and fluid collection in the gallbladder fossa. The overlying skin was anesthetized 1% lidocaine. Under intermittent CT guidance a 5 Romanian sheath needle was advanced into the collection. Turbid fluid was aspirated. A guidewire was advanced into the collection over which, following dilatation, a 10 Romanian locking drain catheter was placed. Aspiration was performed and samples sent for Gram stain and culture. CT imaging confirms drain position. The catheter was connected to NICOLAS bulb suction. The catheter was secured in place. Sterile dressings were applied. The procedure was performed under conscious sedation including continuous cardiopulmonary monitoring via dedicated sedation nurse. [id number] sedation time: 30 minutes Impression: CT-guided drainage, gallbladder fossa fluid collection PQRS Compliance Statement: One or more of the following individualized dose reduction techniques were utilized for this examination: 1. Automated exposure control 2. Adjustment of the mA and/or kV according to patient size 3. Use of iterative reconstruction technique
--- NOTE | 2019-02-22 16:07 | PDOC ---
CARDIO Progress Notes Date and Time Date of Service 02/22/2019 Time of Evaluation 1540 Subjective Subjective: No Chest Pain, No shortness of breath, No Palpitations, Other (complains of leg and arm swelling) Vitals Vitals Vital Signs Date Time Temp Pulse Resp B/P (MAP) Pulse Ox O2 Delivery O2 Flow Rate FiO2 02/22/19 13:53 108 21 175/72 (106) 93 Nasal Cannula 2.0 02/22/19 11:00 97.8 97.8 Weight Weight [ ] Input and Output Intake and Output Intake and Output 02/22/19 07:00 Intake Total 3878 ml Output Total 845 ml Balance 3033 ml Intake Oral 120 ml IV Total 3758 ml Output Urine Total 845 ml # Bowel Movements 3 Laboratory Labs Laboratory Tests Test 02/22/19 04:15 02/22/19 10:50 White Blood Count 21.8 x10^3/uL (4.0-11.0) Red Blood Count 2.60 x10^6/uL (4.30-5.70) Hemoglobin 8.0 g/dL (13.0-17.5) Hematocrit 24.1 % (39.0-53.0) Mean Corpuscular Volume 92 fL (79-100) Mean Corpuscular Hemoglobin 31 pg (25-35) Mean Corpuscular Hemoglobin Concent 33 g/dL (31-37) Red Cell Distribution Width 15.3 % (11.5-14.5) Platelet Count 302 x10^3/uL (140-400) Neutrophils (%) (Auto) 85 % (31-73) Lymphocytes (%) (Auto) 6 % (24-48) Monocytes (%) (Auto) 9 % (0-9) Eosinophils (%) (Auto) 1 % (0-3) Basophils (%) (Auto) 0 % (0-3) Neutrophils # (Auto) 18.4 x10^3uL (1.8-7.7) Lymphocytes # (Auto) 1.3 x10^3/uL (1.0-4.8) Monocytes # (Auto) 1.9 x10^3/uL (0.0-1.1) Eosinophils # (Auto) 0.1 x10^3/uL (0.0-0.7) Basophils # (Auto) 0.0 x10^3/uL (0.0-0.2) Sodium Level 142 mmol/L (136-145) Potassium Level 3.6 mmol/L (3.5-5.1) Chloride Level 111 mmol/L (98-107) Carbon Dioxide Level 23 mmol/L (21-32) Anion Gap 8 (6-14) Blood Urea Nitrogen 28 mg/dL (8-26) Creatinine 1.3 mg/dL (0.7-1.3) Estimated GFR (Cockcroft-Gault) 52.7 BUN/Creatinine Ratio 22 (6-20) Glucose Level 113 mg/dL (70-99) Calcium Level 8.0 mg/dL (8.5-10.1) Total Bilirubin 0.6 mg/dL (0.2-1.0) Aspartate Amino Transf (AST/SGOT) 45 U/L (15-37) Alanine Aminotransferase (ALT/SGPT) 41 U/L (16-63) Alkaline Phosphatase 137 U/L (46-116) Total Protein 4.4 g/dL (6.4-8.2) Albumin 1.3 g/dL (3.4-5.0) Albumin/Globulin Ratio 0.4 (1.0-1.7) Prothrombin Time 16.0 SEC (11.7-14.0) Prothromb Time International Ratio 1.3 (0.8-1.1) Activated Partial Thromboplast Time 32 SEC (24-38) Microbiology Micro Microbiology 02/17/19 Blood Culture - Final, Complete NO GROWTH AFTER 5 DAYS 02/17/19 Urine Culture - Final, Complete 02/17/19 Urine Culture Result 1 (PETERSON) - Final, Complete Physical Exam HEENT: Neck Supple W Full Motion Chest: Symmetric LUNGS: Other (dimininshed bases) Heart: irregularly irregular (AFIB rate controlled) Abdomen: Other (S/P Lap karie, tender abd) Extremities: No Calf Tenderness, Other (2-3+ bilateral LE and hand pitting edema) Neurology: alert, oriented, follow commands Assessment Assessment 1. Cholelithiasis s/p lap cholecystectomy 02/14/19 2. AFIB with RVR; new onset. rate controlled. . EF and WM nml 3. Leukocytosis: ID following 4. Hypertension; labile. 5. Hyperlipidemia; statin therapy 6. HERBER: Cr stable at 1.3 7. H/o CVA 8. Postoperative anemia: Hgb 7.8, contributing to low BP. 9. Anasarca with significant hypoalbuminemia contributing. Recommendations PO meds on hold. Currently NPO with gastric outlet obstruction with current DU. continue with IV lopressor. IV digoxin PRN for sustained burst of RVR. Lasix x1 Albumin therapy pending Rectal ASA for stroke prevention if OK with GI Unclear use for plavix unless for past CVA. May hold for now. Not a candidate for custodial OAC with current DU and severe esophagitis. DON BRASHER MECHANICAL ASSEMBLER February 22, 2019 16:07
[2019-02-22] MEDS ORDERED: DIGOXIN IV 500 MCG/2 ML AMPUL. IV PRN (16:15)
[2019-02-22] MEDS ORDERED: FUROSEMIDE 40 MG/4 ML VIAL. IVP ONE (16:15)
[2019-02-22] MEDS ORDERED: hydrALAZINE 20 MG/ML VIAL. IVP PRN (16:15)
[2019-02-22] MEDS ORDERED: ALBUMIN HUMAN 25% 100 ML IV ONE (16:15)
--- NOTE | 2019-02-22 16:15 | NUR ---
SS following up with discharge planning. Pt accepted at [facility]. SS will await discharge orders and will proceed accordingly. Addendum: 02/22/19 at 1617 by SELAM YING SS Pt pending insurance authorization from [facility] intermediate unit.
[2019-02-22] MEDS: ASPIRIN RECTAL 300 MG SUPP. PR SCH (17:00)
[2019-02-22] MEDS: ATORVASTATIN CALCIUM 40 MG TABLET. PO SCH (21:24)
[2019-02-22] MEDS: diphenhydrAMINE HCL 25 MG CAPSULE PO PRN (21:39)
[2019-02-23] MEDS: PIPERACILLIN/TAZOBACTAM 3.375 GM in IV NORMAL SALINE 50ML 50 ML IV SCH ×5 (00:45→23:34)
[2019-02-23] MEDS: METOPROLOL TARTRATE 5 MG/5 ML VIAL. IVP SCH ×5 (02:58→23:35)
[2019-02-23 03:12] VITALS: BP 148/68
[2019-02-23 07:00] VITALS: BP 145/61
[2019-02-23] MEDS: LOSARTAN POTASSIUM 50 MG TABLET. PO SCH (07:44)
[2019-02-23] MEDS: DOCUSATE SODIUM 100 MG CAPSULE. PO SCH ×2 (07:44→20:43)
[2019-02-23] MEDS: LACTOBACILLUS RHAMNOSUS GG 1 CAPSULE. PO SCH ×2 (07:44→20:43)
[2019-02-23] MEDS: TAMSULOSIN 0.4 MG CAP.ER.24H. PO SCH (07:44)
[2019-02-23] MEDS: CHOLECALCIFEROL (VITAMIN D3) 1,000 UNIT TABLET PO SCH (07:45)
[2019-02-23] MEDS: MULTIVITAMIN with MINERAL TABLET. PO SCH (07:45)
[2019-02-23] MEDS: CYANOCOBALAMIN (VITAMIN B-12) 1,000 MCG TABLET. PO SCH (07:45)
[2019-02-23] MEDS: ASPIRIN RECTAL 300 MG SUPP. PR SCH (07:45)
[2019-02-23] MEDS: CLOPIDOGREL BISULFATE 75 MG TABLET PO SCH (07:45)
--- NOTE | 2019-02-23 09:45 | PDOC ---
SURGICAL PROGRESS NOTE Subjective up in chair some pain at drain Vital Signs Vital Signs Date Time Temp Pulse Resp B/P (MAP) Pulse Ox O2 Delivery O2 Flow Rate FiO2 02/23/19 07:00 98.0 104 26 145/61 (89) 90 Nasal Cannula 2.0 98.0 I&O Intake and Output 02/23/19 07:00 Intake Total 550 ml Output Total 4150 ml Balance -3600 ml Intake Oral 30 ml IV Total 520 ml Output Urine Total 3900 ml Drainage Total 250 ml General: Alert, Oriented X3, Cooperative, No acute distress Abdomen: Soft, Other (perc drain purulent, cricket serosang) Labs Laboratory Tests Test 02/22/19 04:15 02/22/19 10:50 White Blood Count 21.8 x10^3/uL (4.0-11.0) Red Blood Count 2.60 x10^6/uL (4.30-5.70) Hemoglobin 8.0 g/dL (13.0-17.5) Hematocrit 24.1 % (39.0-53.0) Mean Corpuscular Volume 92 fL (79-100) Mean Corpuscular Hemoglobin 31 pg (25-35) Mean Corpuscular Hemoglobin Concent 33 g/dL (31-37) Red Cell Distribution Width 15.3 % (11.5-14.5) Platelet Count 302 x10^3/uL (140-400) Neutrophils (%) (Auto) 85 % (31-73) Lymphocytes (%) (Auto) 6 % (24-48) Monocytes (%) (Auto) 9 % (0-9) Eosinophils (%) (Auto) 1 % (0-3) Basophils (%) (Auto) 0 % (0-3) Neutrophils # (Auto) 18.4 x10^3uL (1.8-7.7) Lymphocytes # (Auto) 1.3 x10^3/uL (1.0-4.8) Monocytes # (Auto) 1.9 x10^3/uL (0.0-1.1) Eosinophils # (Auto) 0.1 x10^3/uL (0.0-0.7) Basophils # (Auto) 0.0 x10^3/uL (0.0-0.2) Sodium Level 142 mmol/L (136-145) Potassium Level 3.6 mmol/L (3.5-5.1) Chloride Level 111 mmol/L (98-107) Carbon Dioxide Level 23 mmol/L (21-32) Anion Gap 8 (6-14) Blood Urea Nitrogen 28 mg/dL (8-26) Creatinine 1.3 mg/dL (0.7-1.3) Estimated GFR (Cockcroft-Gault) 52.7 BUN/Creatinine Ratio 22 (6-20) Glucose Level 113 mg/dL (70-99) Calcium Level 8.0 mg/dL (8.5-10.1) Total Bilirubin 0.6 mg/dL (0.2-1.0) Aspartate Amino Transf (AST/SGOT) 45 U/L (15-37) Alanine Aminotransferase (ALT/SGPT) 41 U/L (16-63) Alkaline Phosphatase 137 U/L (46-116) Total Protein 4.4 g/dL (6.4-8.2) Albumin 1.3 g/dL (3.4-5.0) Albumin/Globulin Ratio 0.4 (1.0-1.7) Prothrombin Time 16.0 SEC (11.7-14.0) Prothromb Time International Ratio 1.3 (0.8-1.1) Activated Partial Thromboplast Time 32 SEC (24-38) Laboratory Tests Test 02/22/19 10:50 Prothrombin Time 16.0 SEC (11.7-14.0) Prothromb Time International Ratio 1.3 (0.8-1.1) Activated Partial Thromboplast Time 32 SEC (24-38) Assessment/Plan TPN, PPI-ulcer, goo continue abx, drains HIDA report pending LACHO OCONNOR BOXING TRAINER February 23, 2019 09:45
[2019-02-23] MEDS: PANTOPRAZOLE SODIUM IV DRIP 80 MG in IV NORMAL SALINE 100ML 100 ML IV SCH ×2 (09:46→20:13)
[2019-02-23] MEDS: HYDROmorphone 2 MG/ML VIAL IV PRN (09:46)
--- NOTE | 2019-02-23 10:02 | PDOC ---
Infectious Disease Note Subjective Subjective finished walking w/ PT + BM Denies F/C/S/N/V/pain ROS ROS per HPI Vital Sign Vital Signs Vital Signs Date Time Temp Pulse Resp B/P (MAP) Pulse Ox O2 Delivery O2 Flow Rate FiO2 02/23/19 09:46 18 90 Nasal Cannula 2.0 02/23/19 07:00 98.0 104 145/61 (89) 98.0 Physical Exam PHYSICAL EXAM GENERAL: Sitting in the chair, relaxed appearance HEENT: Oral cavity clear, dry NECK: Supple, no JVP, no lymphadenopathy. LUNGS: Clear. HEART: S1, S2 regular. ABDOMEN: Obese, soft,NT, NICOLAS x [address], purulent drainage. Small incision appr ox sutures, clean EXTREMITIES: Bilat LE trace edema, no cyanosis SKIN: No rash NEUROLOGIC: Alert, responds appropriately RUE-PICC (02/22) clean Labs Lab Laboratory Tests Test 02/22/19 10:50 Prothrombin Time 16.0 SEC (11.7-14.0) Prothromb Time International Ratio 1.3 (0.8-1.1) Activated Partial Thromboplast Time 32 SEC (24-38) Micro Microbiology 02/17/19 Blood Culture - Final, Complete NO GROWTH AFTER 5 DAYS 02/17/19 Urine Culture - Final, Complete 02/17/19 Urine Culture Result 1 (PETERSON) - Final, Complete Objective Assessment Fever, better Leukocytosis s/p CT-guided drainage, gallbladder fossa fluid collection, 02/22. Cultures pending s/p lap cholecystectomy, followed by lap exploration on 02/14 Hypertension. Hyperlipidemia. Atrial fibrillation. Plan Plan of Care cont Zyvox and Zosyn PT/OT repeat CBC in am Patient seen, examined, Says felt dizzy after pain medication, now resolved I agree with above Assessment and plan formulated by CANE PILER. LUIS BARGER APRN February 23, 2019 10:02 NED POWELL MD February 23, 2019 12:19
--- NOTE | 2019-02-23 10:23 | PDOC ---
PULMONARY PROGRESS NOTES Subjective PT BETTER ,NO SOA UP IN CHAIR Vitals Vital Signs Date Time Temp Pulse Resp B/P (MAP) Pulse Ox O2 Delivery O2 Flow Rate FiO2 02/23/19 09:46 18 90 Nasal Cannula 2.0 02/23/19 07:00 98.0 104 145/61 (89) 98.0 ROS: No Nausea, No Chest Pain, No Increase Cough General: Alert, No acute distress Lungs: Clear Cardiovascular: S1, S2 Abdomen: Soft Neuro Exam: Alert Extremities: Other (1+EDEMA) Skin: Warm Labs Laboratory Tests Test 02/22/19 04:15 02/22/19 10:50 White Blood Count 21.8 x10^3/uL (4.0-11.0) Red Blood Count 2.60 x10^6/uL (4.30-5.70) Hemoglobin 8.0 g/dL (13.0-17.5) Hematocrit 24.1 % (39.0-53.0) Mean Corpuscular Volume 92 fL (79-100) Mean Corpuscular Hemoglobin 31 pg (25-35) Mean Corpuscular Hemoglobin Concent 33 g/dL (31-37) Red Cell Distribution Width 15.3 % (11.5-14.5) Platelet Count 302 x10^3/uL (140-400) Neutrophils (%) (Auto) 85 % (31-73) Lymphocytes (%) (Auto) 6 % (24-48) Monocytes (%) (Auto) 9 % (0-9) Eosinophils (%) (Auto) 1 % (0-3) Basophils (%) (Auto) 0 % (0-3) Neutrophils # (Auto) 18.4 x10^3uL (1.8-7.7) Lymphocytes # (Auto) 1.3 x10^3/uL (1.0-4.8) Monocytes # (Auto) 1.9 x10^3/uL (0.0-1.1) Eosinophils # (Auto) 0.1 x10^3/uL (0.0-0.7) Basophils # (Auto) 0.0 x10^3/uL (0.0-0.2) Sodium Level 142 mmol/L (136-145) Potassium Level 3.6 mmol/L (3.5-5.1) Chloride Level 111 mmol/L (98-107) Carbon Dioxide Level 23 mmol/L (21-32) Anion Gap 8 (6-14) Blood Urea Nitrogen 28 mg/dL (8-26) Creatinine 1.3 mg/dL (0.7-1.3) Estimated GFR (Cockcroft-Gault) 52.7 BUN/Creatinine Ratio 22 (6-20) Glucose Level 113 mg/dL (70-99) Calcium Level 8.0 mg/dL (8.5-10.1) Total Bilirubin 0.6 mg/dL (0.2-1.0) Aspartate Amino Transf (AST/SGOT) 45 U/L (15-37) Alanine Aminotransferase (ALT/SGPT) 41 U/L (16-63) Alkaline Phosphatase 137 U/L (46-116) Total Protein 4.4 g/dL (6.4-8.2) Albumin 1.3 g/dL (3.4-5.0) Albumin/Globulin Ratio 0.4 (1.0-1.7) Prothrombin Time 16.0 SEC (11.7-14.0) Prothromb Time International Ratio 1.3 (0.8-1.1) Activated Partial Thromboplast Time 32 SEC (24-38) Laboratory Tests Test 02/22/19 10:50 Prothrombin Time 16.0 SEC (11.7-14.0) Prothromb Time International Ratio 1.3 (0.8-1.1) Activated Partial Thromboplast Time 32 SEC (24-38) Medications Active Scripts Medications Dose Route/Sig Max Daily Dose Days Date Category Flomax (Tamsulosin Hcl) 0.4 Mg Cap.er.24h 0.4 Mg PO DAILY 02/13/19 Reported Clopidogrel (Clopidogrel Bisulfate) 75 Mg Tablet 75 Mg PO DAILY 02/13/19 Reported Aspirin 81 Mg Tab.chew 1 Tab PO DAILY 02/13/19 Reported Vitamin B-12 (Cyanocobalamin (Vitamin B-12)) 1,000 Mcg Tablet 1 Tab PO DAILY 12/25/18 Reported Metoprolol Succinate ( Xl ) (Metoprolol Succinate) 25 Mg Tab.er.24h 1 Tab PO DAILY 12/25/18 Reported Losartan Potassium 100 Mg Tablet 100 Mg PO DAILY 12/25/18 Reported Atorvastatin Calcium 40 Mg Tablet 40 Mg PO QHS 30 06/27/17 Rx Multivitamins (Multivitamin) 1 Each Tablet 1 Tab PO DAILY 08/12/15 Reported Vitamin D (Cholecalciferol (Vitamin D3)) 2,000 Unit Capsule 1 Cap PO DAILY 08/12/15 Reported Impression . IMPRESSION: 1. Expected hypoxemic respiratory failure. 2. Status post laparoscopic cholecystectomy with cholangiogram. 3. Status post exploratory laparotomy for hemoperitoneum on 02/14. 4. Abnormal x-ray compatible with atelectasis and effusion, suspect related to intra-abdominal inflammation and possible infection. 5. Leukocytosis. 6. History of cerebrovascular accident, hypertension 7. Hyperlipidemia. 8. Transient atrial fibrillation. 9. Acute blood loss anemia 02/20 Impression: 1. There is a air/ fluid collection identified in the gallbladder fossa region measuring 8.2 x 4.7 cm. Differential includes abscess or focal biloma, if there has been a recent cholecystectomy. A HIDA scan may be helpful. A drain tubing is identified in the gallbladder fossa region. 2. Punctate foci of air identified in the right upper quadrant of the abdomen with surrounding inflammatory fat stranding probably secondary to recent surgery. Correlate clinically. 3. Bibasilar lung consolidation changes likely pneumonia or atelectasis with collapse and consolidation of the right middle lobe of the lung. Bilateral pleural effusions , right greater than left. 4. Mild thickened appearance of the wall of the colon throughout could be due to nondistention or mild colitis. Plan . PER SURGERY MONITOR H/H/ S/P drainage of abd fluid collection, as well as check PIPPDA to check for bile leak bowel rest and TPN RESP STATUS STABLE UP TO CHAIR PT IV ANTIBX PER ID MONITOR CXR NEEDED NUTRITION PER SURGERY MELODY CURRIE MD February 23, 2019 10:23
[2019-02-23 10:47] VITALS: BP 113/59
--- NOTE | 2019-02-23 11:41 | PDOC ---
PROGRESS NOTES Chief Complaint Chief Complaint Status post lap cholecystectomy, 02/14/19 Postop status cyst/fulfills tachycardia tachypnea AK I VMN-creatinine 1.5 today from normal Sepsis - with fever and Leukocytosis, started on empiric Zosyn, zyvox History CVA, hypertension, dyslipidemia and GERD on medication Atrial fibrillation with RVR - rate controlled History of Present Illness History of Present Illness 83 yo M who came in for flulike symptoms. He came from home with the . Was treated. But course remarkable for developing either cholelithiasis or cholecystitis and underwent laparoscopic cholecystectomy on 02/14/19 bu postop course was remarkable for bleeding around the NICOLAS drain and around the postop site that they had to redo him that same day but no exploratory laparoscopy done/needed. Taken to ICU for Afib with RVR on 02/17/19. He is on GI soft diet but with minimal intake. He is belching and c/o "reflux" symptoms and little appetite. NPO after EGD results, now s/p PICC for TPN to initiate Cr 1.4. Lactate was elevated, normalized after IVF. Still in afib on oral cardizem and metoprolol. Still having BM. CT abdomen shows possible biloma vs abscess near gallbladder fossa. HIDA scan read is pending. Plan: S/p EGD - with 8-10mm ulceration at GEJ, right wall and 1 cm ulcer anterior wall bulb with marked edema and functional obstruction, started on PPI GTT Plan for NPO prolonged and down for PICC and TPN today Schedule nausea control Cont rate control meds oral Vitals Vitals Vital Signs Date Time Temp Pulse Resp B/P (MAP) Pulse Ox O2 Delivery O2 Flow Rate FiO2 02/23/19 10:47 98.2 98 26 113/59 (77) 98 Nasal Cannula 2.0 98.2 Physical Exam Physical Exam GENERAL: Sitting in the chair, relaxed appearance HEENT: Oral cavity clear, dry NECK: Supple, no JVP, no lymphadenopathy. LUNGS: Clear. HEART: S1, S2 regular. ABDOMEN: Obese, soft,NT, NICOLAS [address], purulent drainage. Small incision approx sutures, clean EXTREMITIES: Bilat LE trace edema, no cyanosis SKIN: No rash NEUROLOGIC: Alert, responds appropriately RUE-PICC (/) clean General: Alert, Oriented X3, Cooperative, No acute distress Heart: Other (IRRR; tele AFIB with controlled rate) Lungs: Clear Abdomen: Soft, Other Extremities: Other (trace bialteral LE edema ) Skin: No rashes Comment Review of Relevant I have reviewed the following items timoteo (where applicable) has been applied. Labs Laboratory Tests Test 02/22/19 04:15 02/22/19 10:50 White Blood Count 21.8 x10^3/uL (4.0-11.0) Red Blood Count 2.60 x10^6/uL (4.30-5.70) Hemoglobin 8.0 g/dL (13.0-17.5) Hematocrit 24.1 % (39.0-53.0) Mean Corpuscular Volume 92 fL (79-100) Mean Corpuscular Hemoglobin 31 pg (25-35) Mean Corpuscular Hemoglobin Concent 33 g/dL (31-37) Red Cell Distribution Width 15.3 % (11.5-14.5) Platelet Count 302 x10^3/uL (140-400) Neutrophils (%) (Auto) 85 % (31-73) Lymphocytes (%) (Auto) 6 % (24-48) Monocytes (%) (Auto) 9 % (0-9) Eosinophils (%) (Auto) 1 % (0-3) Basophils (%) (Auto) 0 % (0-3) Neutrophils # (Auto) 18.4 x10^3uL (1.8-7.7) Lymphocytes # (Auto) 1.3 x10^3/uL (1.0-4.8) Monocytes # (Auto) 1.9 x10^3/uL (0.0-1.1) Eosinophils # (Auto) 0.1 x10^3/uL (0.0-0.7) Basophils # (Auto) 0.0 x10^3/uL (0.0-0.2) Sodium Level 142 mmol/L (136-145) Potassium Level 3.6 mmol/L (3.5-5.1) Chloride Level 111 mmol/L (98-107) Carbon Dioxide Level 23 mmol/L (21-32) Anion Gap 8 (6-14) Blood Urea Nitrogen 28 mg/dL (8-26) Creatinine 1.3 mg/dL (0.7-1.3) Estimated GFR (Cockcroft-Gault) 52.7 BUN/Creatinine Ratio 22 (6-20) Glucose Level 113 mg/dL (70-99) Calcium Level 8.0 mg/dL (8.5-10.1) Total Bilirubin 0.6 mg/dL (0.2-1.0) Aspartate Amino Transf (AST/SGOT) 45 U/L (15-37) Alanine Aminotransferase (ALT/SGPT) 41 U/L (16-63) Alkaline Phosphatase 137 U/L (46-116) Total Protein 4.4 g/dL (6.4-8.2) Albumin 1.3 g/dL (3.4-5.0) Albumin/Globulin Ratio 0.4 (1.0-1.7) Prothrombin Time 16.0 SEC (11.7-14.0) Prothromb Time International Ratio 1.3 (0.8-1.1) Activated Partial Thromboplast Time 32 SEC (24-38) Microbiology 02/17/19 Blood Culture - Final, Complete NO GROWTH AFTER 5 DAYS 02/17/19 Urine Culture - Final, Complete 02/17/19 Urine Culture Result 1 (PETERSON) - Final, Complete Medications Current Medications Ondansetron HCl (Zofran) 4 mg PRN Q6HRS PRN IV NAUSEA/VOMITING; Start 02/14/19 at 07:00; Stop 02/14/19 at 20:00; Status DC Fentanyl Citrate (Fentanyl 2ml Vial) 25 mcg PRN Q5MIN PRN IV MILD PAIN Last administered on 02/14/19at 14:28; Start 02/14/19 at 07:00; Stop 02/14/19 at 20:00; Status DC Fentanyl Citrate (Fentanyl 2ml Vial) 50 mcg PRN Q5MIN PRN IV MODERATE TO SEVERE PAIN; Start 02/14/19 at 07:00; Stop 02/14/19 at 20:00; Status DC Morphine Sulfate (Morphine Sulfate) 1 mg PRN Q10MIN PRN IV SEVERE PAIN; Start 02/14/19 at 07:00; Stop 02/14/19 at 20:00; Status DC Ringer's Solution 1,000 ml @ 30 mls/hr Q24H IV Last administered on 02/14/19at 07:52; Start 02/14/19 at 07:00; Stop 02/14/19 at 18:59; Status DC Lidocaine HCl (Xylocaine-Mpf 1% 2ml Vial) 2 ml PRN 1X PRN ID PRIOR TO IV START; Start 02/14/19 at 07:00; Stop 02/14/19 at 20:00; Status DC Hydromorphone HCl (Dilaudid) 0.5 mg PRN Q10MIN PRN IV SEV PAIN, Second choice; Start 02/14/19 at 07:00; Stop 02/14/19 at 20:00; Status DC Prochlorperazine Edisylate (Compazine) 5 mg PACU PRN PRN IV NAUSEA, MRX1; Start 02/14/19 at 07:00; Stop 02/14/19 at 20:00; Status DC Cefazolin Sodium/ Dextrose 50 ml @ 100 mls/hr 1X PREOP PRN IV PRIOR TO PROCEDURE Last administered on 02/14/19at 11:21; Start 02/14/19 at 06:00; Stop 02/14/19 at 18:00; Status DC Propofol 20 ml @ As Directed STK-MED ONCE IV ; Start 02/14/19 at 08:17; Stop 02/14/19 at 08:18; Status DC Lidocaine HCl (Lidocaine Pf 2% Vial) 5 ml STK-MED ONCE .ROUTE ; Start 02/14/19 at 08:17; Stop 02/14/19 at 08:18; Status DC Ondansetron HCl (Zofran) 4 mg STK-MED ONCE .ROUTE ; Start 02/14/19 at 08:17; Stop 02/14/19 at 08:18; Status DC Dexamethasone Sodium Phosphate (Decadron) 4 mg STK-MED ONCE .ROUTE ; Start 02/14/19 at 08:17; Stop 02/14/19 at 08:18; Status DC Sevoflurane (Ultane) 60 ml STK-MED ONCE IH ; Start 02/14/19 at 08:17; Stop 02/14/19 at 08:18; Status DC Rocuronium [place] (Zemuron) 50 mg STK-MED ONCE .ROUTE ; Start 02/14/19 at 08:17; Stop 02/14/19 at 08:18; Status DC Fentanyl Citrate (Fentanyl 2ml Vial) 100 mcg STK-MED ONCE .ROUTE ; Start 02/14/19 at 08:39; Stop 02/14/19 at 08:40; Status DC Bupivacaine HCl/ Epinephrine Bitart (Sensorcain-Mpf Epi 0.5%-[id number]) 30 ml STK-MED ONCE .ROUTE Last administered on 02/14/19at 11:48; Start 02/14/19 at 10:01; Stop 02/14/19 at 11:02; Status DC Glucagon (Glucagen) 1 mg STK-MED ONCE .ROUTE ; Start 02/14/19 at 10:01; Stop 02/14/19 at 11:02; Status DC Iohexol (Omnipaque 300 Mg/ml) 100 ml STK-MED ONCE .ROUTE Last administered on 02/14/19at 11:48; Start 02/14/19 at 10:01; Stop 02/14/19 at 11:02; Status DC Cellulose (Surgicel Hemostat 4x8) 1 each STK-MED ONCE .ROUTE Last administered on 02/14/19at 13:12; Start 02/14/19 at 10:01; Stop 02/14/19 at 11:02; Status DC Cellulose (Surgicel Hemostat 4x8) 1 each STK-MED ONCE .ROUTE Last administered on 02/14/19at 13:31; Start 02/14/19 at 11:19; Stop 02/14/19 at 12:19; Status DC Famotidine (Pepcid Vial) 20 mg STK-MED ONCE .ROUTE ; Start 02/14/19 at 13:14; Stop 02/14/19 at 13:15; Status DC Diphenhydramine HCl (Benadryl) 50 mg STK-MED ONCE .ROUTE ; Start 02/14/19 at 13:14; Stop 02/14/19 at 13:15; Status DC Rocuronium [place] (Zemuron) 50 mg STK-MED ONCE .ROUTE ; Start 02/14/19 at 13:14; Stop 02/14/19 at 13:15; Status DC Fentanyl Citrate (Fentanyl 2ml Vial) 100 mcg STK-MED ONCE .ROUTE ; Start 02/14/19 at 13:15; Stop 02/14/19 at 13:16; Status DC Cellulose (Surgicel Hemostat 4x8) 1 each STK-MED ONCE .ROUTE ; Start 02/14/19 at 12:33; Stop 02/14/19 at 13:33; Status DC Diphenhydramine HCl (Benadryl) 25 mg PRN Q6HRS PRN PO ITCHING Last administered on 02/22/19 21:39; Start 02/14/19 at 14:00 Sodium Chloride (Normal Saline Flush) 3 ml QSHIFT PRN IV AFTER MEDS AND BLOOD DRAWS; Start 02/14/19 at 14:00 Potassium Chloride/Sodium Chloride 1,000 ml @ 80 mls/hr [id number] IV Last administered on 02/17/19 06:02; Start 02/14/19 at 15:00; Stop 02/17/19 at 12:54; Status DC Dextrose (Dextrose 50%-Water Syringe) 12.5 gm PRN Q15MIN PRN IV SEE COMMENTS; Start 02/14/19 at 14:00 Acetaminophen/ Hydrocodone Bitart (Lortab 5/325) 1 tab PRN Q4HRS PRN PO MILD PAIN Last administered on 02/17/19 08:35; Start 02/14/19 at 14:00 Acetaminophen/ Hydrocodone Bitart (Lortab 5/325) 2 tab PRN Q4HRS PRN PO MODERATE PAIN, SEVERE PAIN Last administered on 02/17/19 03:22; Start 02/14/19 at 14:00 Hydromorphone HCl (Dilaudid) 1 mg PRN Q4HRS PRN IV PAIN Last administered on 02/23/19 09:46; Start 02/14/19 at 14:00 Docusate Sodium (Colace) 100 mg BID PO Last administered on 02/22/19 21:24; Start 02/14/19 at 21:00 Ondansetron HCl (Zofran) 4 mg PRN Q6HRS PRN IV NAUESA, 1ST CHOICE Last administered on 02/19/19 04:09; Start 02/14/19 at 14:00; Stop 02/19/19 at 09:05; Status DC Atorvastatin Calcium (Lipitor) 40 mg QHS PO Last administered on 02/22/19 21:24; Start 02/14/19 at 21:00 Cyanocobalamin (Vitamin B-12) 1,000 mcg DAILY PO Last administered on 02/19/19 09:32; Start 02/15/19 at 09:00 Metoprolol Succinate (Toprol Xl) 25 mg DAILY PO Last administered on 02/20/19at 07:53; Start 02/15/19 at 09:00; Stop 02/20/19 at 12:11; Status DC Tamsulosin HCl (Flomax) 0.4 mg DAILY PO Last administered on 02/21/19at 08:34; Start 02/15/19 at 09:00 Losartan Potassium (Cozaar) 100 mg DAILY PO Last administered on 02/21/19at 08:34; Start 02/15/19 at 09:00 Fentanyl Citrate (Fentanyl 2ml Vial) 100 mcg STK-MED ONCE .ROUTE ; Start 02/14/19 at 14:26; Stop 02/14/19 at 14:27; Status DC Bupivacaine HCl/ Epinephrine Bitart (Sensorcain-Mpf Epi 0.5%-1:[id number]) 30 ml STK-MED ONCE .ROUTE ; Start 02/14/19 at 15:13; Stop 02/14/19 at 16:14; Status DC Bacitracin (Bacitracin) 50,000 unit STK-MED ONCE IRR Last administered on 02/14/19at 16:49; Start 02/14/19 at 15:14; Stop 02/14/19 at 16:15; Status DC Sodium Chloride (SODIUM CHLORIDE 20ml) 20 ml STK-MED ONCE IJ ; Start 02/14/19 at 15:15; Stop 02/14/19 at 16:15; Status DC Cellulose (Surgicel Hemostat 4x8) 3 each STK-MED ONCE TP Last administered on at 16:49; Start 02/14/19 at 16:49; Stop 02/14/19 at 16:55; Status DC Cellulose (Surgicel Hemostat 4x8) 4 each 1X ONCE TP ; Start 02/14/19 at 17:15; Stop 02/14/19 at 17:16; Status DC Cefazolin Sodium/ Dextrose (Ancef 2gm Premix) 2 gm STK-MED ONCE IV ; Start 02/14/19 at 11:00; Stop 02/15/19 at 13:02; Status DC Piperacillin Sod/ Tazobactam Sod 3.375 gm/Sodium Chloride 50 ml @ 100 mls/hr Q6HRS IV Last administered on 02/23/19 05:46; Start 02/17/19 at 12:00 Sodium Chloride 1,000 ml @ 125 mls/hr Q8H IV Last administered on 02/22/19 02:43; Start 02/17/19 at 13:00; Stop 02/22/19 at 10:28; Status DC Clopidogrel Bisulfate (Plavix) 75 mg DAILY PO Last administered on 02/21/19 08:33; Start 02/17/19 at 14:00 Vitamin D (Vitamin D3) 2,000 unit DAILY PO Last administered on 02/19/19 09:31; Start 02/17/19 at 14:00 Multivitamins (Thera M Plus) 1 tab DAILY PO Last administered on 02/19/19 09:31; Start 02/17/19 at 14:00 Calcium Carbonate/ Glycine (Tums) 500 mg PRN AFTMEALHC PRN PO INDIGESTION Last administered on 02/18/19 22:25; Start 02/17/19 at 15:00 Acetaminophen (Tylenol) 650 mg PRN Q6HRS PRN PO fever Last administered on 02/17/19 23:50; Start 02/17/19 at 23:45; Stop 02/21/19 at 08:07; Status DC Sodium Chloride 500 ml @ 500 mls/hr 1X ONCE IV Last administered on 02/17/19 23:48; Start 02/18/19 at 00:00; Stop 02/18/19 at 00:59; Status DC Diltiazem HCl 125 mg/Dextrose 125 ml @ 5 mls/hr CONT PRN IV SEE I/O RECORD Last administered on 02/18/19 04:27; Start 02/18/19 at 04:15; Stop 02/18/19 at 16:09; Status DC Linezolid/Dextrose 300 ml @ 300 mls/hr Q12HR IV Last administered on 02/23/19 08:42; Start 02/18/19 at 09:00 Lactobacillus Rhamnosus (Culturelle) 1 cap BID PO Last administered on 02/22/19 21:24; Start 02/18/19 at 21:00 Diltiazem HCl (Cardizem 24hr Cd) 240 mg DAILY PO Last administered on 02/21/19 08:34; Start 02/18/19 at 12:30 Aspirin (Ecotrin) 81 mg DAILYWBKFT PO Last administered on 02/21/19at 08:34; Start 02/18/19 at 16:15; Stop 02/22/19 at 16:16; Status DC Acetaminophen (Tylenol) 650 mg PRN Q6HRS PRN PO FEVER Last administered on 02/22/19at 21:39; Start 02/19/19 at 01:45 Acetaminophen (Tylenol Supp) 650 mg PRN Q6HRS PRN NC MILD PAIN/TEMP Last administered on 02/19/19at 02:18; Start 02/19/19 at 02:15 Norepinephrine Bitartrate 250 ml @ 1.875 mls/ hr CONT PRN IV SEE I/O RECORD; Start 02/19/19 at 07:30 Digoxin (Lanoxin) 250 mcg 1X ONCE IV Last administered on 02/19/19at 07:36; Start 02/19/19 at 07:30; Stop 02/19/19 at 07:31; Status DC Sodium Chloride 500 ml @ 500 mls/hr 1X ONCE IV Last administered on 02/19/19at 07:35; Start 02/19/19 at 07:30; Stop 02/19/19 at 08:29; Status DC Ondansetron HCl (Zofran) 4 mg Q6HRS IV Last administered on 02/20/19at 05:43; Start 02/19/19 at 12:00; Stop 02/20/19 at 10:56; Status DC Pantoprazole Sodium (Protonix) 40 mg BIDAC PO Last administered on 02/21/19 08:34; Start 02/19/19 at 16:30; Stop 02/21/19 at 15:18; Status DC Digoxin (Lanoxin) 250 mcg 1X ONCE IV Last administered on 02/19/19at 22:57; Start 02/19/19 at 23:00; Stop 02/19/19 at 23:01; Status DC Cellulose (Surgicel Hemostat 4x8) 1 each STK-MED ONCE .ROUTE ; Start 02/14/19 at 15:23; Stop 02/20/19 at 08:42; Status DC Cellulose (Surgicel Hemostat 4x8) 1 each STK-MED ONCE .ROUTE ; Start 02/14/19 at 15:50; Stop 02/20/19 at 08:42; Status DC Propofol 20 ml @ As Directed STK-MED ONCE IV ; Start 02/14/19 at 16:05; Stop 02/20/19 at 08:42; Status DC Famotidine (Pepcid Vial) 20 mg STK-MED ONCE .ROUTE ; Start 02/14/19 at 16:05; Stop 02/20/19 at 08:42; Status DC Lidocaine HCl (Lidocaine Pf 2% Vial) 5 ml STK-MED ONCE .ROUTE ; Start 02/14/19 at 16:05; Stop 02/20/19 at 08:42; Status DC Ondansetron HCl (Zofran) 4 mg STK-MED ONCE .ROUTE ; Start 02/14/19 at 16:05; Stop 02/20/19 at 08:42; Status DC Rocuronium [place] (Zemuron) 100 mg STK-MED ONCE .ROUTE ; Start 02/14/19 at 16:0 5; Stop 02/20/19 at 08:42; Status DC Fentanyl Citrate (Fentanyl 2ml Vial) 100 mcg STK-MED ONCE .ROUTE ; Start 02/14/19 at 16:06; Stop 02/20/19 at 08:42; Status DC Dexamethasone Sodium Phosphate (Decadron) 4 mg STK-MED ONCE .ROUTE ; Start 02/14/19 at 16:06; Stop 02/20/19 at 08:42; Status DC Neostigmine Methylsulfate (Neostigmine Methylsulfate) 5 mg STK-MED ONCE .ROUTE ; Start 02/14/19 at 17:26; Stop 02/20/19 at 08:42; Status DC Glycopyrrolate (Robinul) 1 mg STK-MED ONCE .ROUTE ; Start 02/14/19 at 17:26; Stop 02/20/19 at 08:42; Status DC Ondansetron HCl (Zofran) 4 mg PRN Q6HRS PRN IV NAUSEA/VOMITING; Start 02/20/19 at 10:54 Metoprolol Tartrate (Lopressor) 25 mg BID PO Last administered on 02/21/19at 20:44; Start 02/20/19 at 12:15; Stop 02/22/19 at 10:28; Status DC Ringer's Solution 1,000 ml @ 50 mls/hr Q20H IV Last administered on 02/21/19at 14:47; Start 02/21/19 at 07:00; Stop 02/21/19 at 18:59; Status DC Midazolam HCl (Versed) 2 mg PRN 1X PRN IV PRIOR TO PROCEDURE; Start 02/21/19 at 12:30; Stop 02/22/19 at 12:29; Status DC Fentanyl Citrate (Fentanyl 2ml Vial) 25 mcg PRN Q5MIN PRN IV X 2 DOSES FOR PAIN; Start 02/21/19 at 12:30; Stop 02/22/19 at 12:29; Status DC Fentanyl Citrate (Fentanyl 2ml Vial) 50 mcg PRN Q5MIN PRN IV X 2 DOSES FOR PAIN; Start 02/21/19 at 12:30; Stop 02/22/19 at 12:29; Status DC Ringer's Solution 1,000 ml @ 125 mls/hr Q8H IV Last administered on 02/21/19at 12:27; Start 02/21/19 at 12:27; Stop 02/22/19 at 00:26; Status DC Lidocaine HCl (Xylocaine-Mpf 1% 2ml Vial) 2 ml 1X PRN PRN ID IV START; Start 02/21/19 at 12:30; Stop 02/22/19 at 12:29; Status DC Pantoprazole Sodium 80 mg/ Sodium Chloride 100 ml @ 10 mls/hr Q10H IV Last administered on 02/23/19at 09:46; Start 02/21/19 at 15:30 Metoprolol Tartrate (Lopressor Vial) 5 mg Q6HRS IVP Last administered on 02/23/19at 02:58; Start 02/22/19 at 12:00 Lidocaine/Sodium Bicarbonate (Buffered Lidocaine 1%) 3 ml STK-MED ONCE .ROUTE ; Start 02/22/19 at 12:08; Stop 02/22/19 at 12:09; Status DC Midazolam HCl (Versed) 2 mg STK-MED ONCE .ROUTE ; Start 02/22/19 at 12:21; Stop 02/22/19 at 12:22; Status DC Fentanyl Citrate (Fentanyl 2ml Vial) 100 mcg STK-MED ONCE .ROUTE ; Start 02/22/19 at 12:21; Stop 02/22/19 at 12:22; Status DC Lidocaine/Sodium Bicarbonate (Buffered Lidocaine 1%) 3 ml 1X ONCE IJ Last administered on 02/22/19at 13:00; Start 02/22/19 at 12:30; Stop 02/22/19 at 12:31; Status DC Midazolam HCl (Versed) 2 mg 1X ONCE IV Last administered on 02/22/19at 13:01; Start 02/22/19 at 12:30; Stop 02/22/19 at 12:31; Status DC Fentanyl Citrate (Fentanyl 2ml Vial) 100 mcg 1X ONCE IV Last administered on 02/22/19at 13:02; Start 02/22/19 at 12:30; Stop 02/22/19 at 12:31; Status DC Furosemide (Lasix) 40 mg 1X ONCE IVP Last administered on 02/22/19at 16:20; Start 02/22/19 at 16:15; Stop 02/22/19 at 16:16; Status DC Hydralazine HCl (Apresoline Inj) 10 mg PRN Q4HRS PRN IVP ELEVATED BP, SEE COMMENTS; Start 02/22/19 at 16:15 Digoxin (Lanoxin) 250 mcg PRN DAILY PRN IV SEE COMMENTS; Start 02/22/19 at 16:15 Albumin Human 100 ml @ 100 mls/hr 1X ONCE IV Last administered on 02/22/19at 16:20; Start 02/22/19 at 16:15; Stop 02/22/19 at 17:14; Status DC Aspirin (Aspirin) 150 mg DAILY NC ; Start 02/22/19 at 17:00 Active Scripts Active Atorvastatin Calcium 40 Mg Tablet 40 Mg PO QHS 30 Days Reported Flomax (Tamsulosin Hcl) 0.4 Mg Cap.er.24h 0.4 Mg PO DAILY Clopidogrel (Clopidogrel Bisulfate) 75 Mg Tablet 75 Mg PO DAILY Aspirin 81 Mg Tab.chew 1 Tab PO DAILY Vitamin B-12 (Cyanocobalamin (Vitamin B-12)) 1,000 Mcg Tablet 1 Tab PO DAILY Metoprolol Succinate ( Xl ) (Metoprolol Succinate) 25 Mg Tab.er.24h 1 Tab PO DAILY Losartan Potassium 100 Mg Tablet 100 Mg PO DAILY Multivitamins (Multivitamin) 1 Each Tablet 1 Tab PO DAILY Vitamin D (Cholecalciferol (Vitamin D3)) 2,000 Unit Capsule 1 Cap PO DAILY Vitals/I & O Vital Sign - Last 24 Hours 5/3/02/22/19 02/22/19 02/22/19 11:57 12:45 12:51 12:56 Pulse 96 95 85 81 Resp B/P (MAP) 117/45 Pulse Ox 100 93 95 O2 Delivery Nasal Cannula Nasal Cannula Nasal Cannula O2 Flow Rate 2.0 2.0 2.0 02/22/19 02/22/19 02/22/19 02/22/19 13:02 13:03 13:53 18:06 Pulse 86 108 108 Resp B/P (MAP) 175/72 (106) 155/72 Pulse Ox 94 93 93 O2 Delivery Nasal Cannula Nasal Cannula Nasal Cannula O2 Flow Rate 2.0 2.0 2.0 02/22/19 02/22/19 02/22/19 02/23/19 19:50 19:57 23:46 00:00 Temp 97.7 98.1 97.7 98.1 Pulse 109 107 107 Resp B/P (MAP) 86/59 (68) 126/60 (82) 86/59 Pulse Ox 92 91 O2 Delivery Nasal Cannula Nasal Cannula Nasal Cannula O2 Flow Rate 2.0 2.0 02/23/19 02/23/19 02/23/19 02/23/19 02:58 03:12 07:00 08:00 Temp 97.5 98.0 97.5 98.0 Pulse 107 95 104 Resp B/P (MAP) 126/60 148/68 (94) 145/61 (89) Pulse Ox 97 90 O2 Delivery Nasal Cannula Nasal Cannula Nasal Cannula O2 Flow Rate 2.0 2.0 2.0 02/23/19 02/23/19 02/23/19 09:46 10:30 10:47 Temp 98.2 98.2 Pulse 98 Resp B/P (MAP) 113/59 (77) Pulse Ox 90 90 98 O2 Delivery Nasal Cannula Nasal Cannula Nasal Cannula O2 Flow Rate 2.0 2.0 2.0 Intake and Output 02/22/19 02/22/19 02/23/19 15:00 23:00 07:00 Intake Total 30 ml 520 ml Output Total 2420 ml 1730 ml Balance 30 ml -2420 ml -1210 ml Nutrition Consultation Dietary Evaluation: Recommendations by RD: Increase Calorie Intake, Protein supplementation Comments: Continue w/GI soft diet at this time, honor food preferences, and provide snacks as requested REC Ensure w/lunch (only strawberry or vanilla) If PO intake does not improve >50% meals within next few days, recommend conisderation of PPN to supplement poor PO intake Expected Outcomes/Goals: PO intake to meet >75% est needs - not met, goal ongoing Malnutrition Findings: Food and Nutrition Intake (Sev: <50% est energy req 5days Weight Status: Appropriate ABIGAIL LIMON MD February 23, 2019 11:41
[2019-02-23 13:51] LABS: CALCIUM 8.3 mg/dL (8.5-10.1); CREATININE 1.4 mg/dL (0.7-1.3); GFR 48.4; POTASSIUM 3.3 mmol/L (3.5-5.1)
[2019-02-23 13:54] LABS: MAGNESIUM 1.9 mg/dL (1.8-2.4); PHOSPHORUS 3.7 mg/dL (2.6-4.7)
[2019-02-23] MEDS: TPN PER PHARMACY MC PRN (14:16)
--- NOTE | 2019-02-23 14:19 | NUR ---
Pharmacy TPN Dosing Note S: GIAMamiRUDY Flores is a 83 year old M Currently receiving Central Continuous TPN started 02/23/19 B:Pertinent PMH: GASTRIC OUTLET OBSTRUCTION Height: 6 feet, 0 inches Weight: 102.917330 kg Current diet: NPO LABS: Sodium: 141 Potassium: 3.3 Chloride: 107 Calcium: 8.3 Corrected Calcium: 10.46 Magnesium: 1.9 CO2: 23 SCr: 1.4 Glucose: 119 Albumin: 1.3 AST: 45 ALT: 41 TPN FORMULA: TPN TYPE: Central Continuous AMINO ACIDS: 60 gm DEXTROSE: 195 gm LIPIDS: 20 gm SODIUM CHLORIDE: 90 mEq SODIUM ACETATE: mEq SODIUM PHOSPHATE: mmol POTASSIUM CHLORIDE: 70 mEq POTASSIUM ACETATE: mEq POTASSIUM PHOSPHATE: 13.6 mmol MAGNESIUM: 15 mEq CALCIUM: 10 mEq INSULIN: units MULTIPLE VITAMIN: 10 ml TRACE ELEMENTS: 1 ml(s) TPN PLAN: TPN to start tonight -will start standard formula with the exception of K and Mag -K=3.3, 40meq KCl x1 now and will increase from standard tonight -Mag 1.9, trending down, will start w/ 15meq -labs in the am R: Begin TPN as written above. Will monitor electrolytes, glucose, and tolerance to TPN. REBEKA BAE RPH, 02/23/19 [id number]
[2019-02-23] MEDS: POTASSIUM CHL 20MEQ PREMIX 50 ML IV SCH ×2 (14:26→15:31)
[2019-02-23 14:44] VITALS: BP 128/68
[2019-02-23 19:30] VITALS: BP 150/80
[2019-02-23] MEDS: ATORVASTATIN CALCIUM 40 MG TABLET. PO SCH (20:43)
[2019-02-23] MEDS: diphenhydrAMINE HCL 25 MG CAPSULE PO PRN (20:43)
[2019-02-23] MEDS ORDERED: TOTAL PARENTERAL NUTRITION IV SCH ×10 (22:00)
[2019-02-23] MEDS ORDERED: AMINO ACID IV SCH ×10 (22:00)
[2019-02-23] MEDS ORDERED: [UNRECOGNIZED DRUG - OTHER] IV SCH ×10 (22:00)
[2019-02-23] MEDS ORDERED: DEXTROSE 70% IV SCH ×10 (22:00)
[2019-02-23 23:00] VITALS: BP 143/81
[2019-02-24 03:20] VITALS: BP 161/78
[2019-02-24] MEDS: PIPERACILLIN/TAZOBACTAM 3.375 GM in IV NORMAL SALINE 50ML 50 ML IV SCH ×3 (05:41→17:33)
[2019-02-24] MEDS: PANTOPRAZOLE SODIUM IV DRIP 80 MG in IV NORMAL SALINE 100ML 100 ML IV SCH ×2 (05:42→14:49)
[2019-02-24] MEDS: METOPROLOL TARTRATE 5 MG/5 ML VIAL. IVP SCH ×3 (05:42→17:34)
[2019-02-24 06:08] LABS: BASO # 0.1 x10^3/uL (0.0-0.2); BASO % 1 % (0-3); EOS # 0.5 x10^3/uL (0.0-0.7); EOS % 3 % (0-3); HEMATOCRIT 24.1 % (39.0-53.0); HEMOGLOBIN 7.9 g/dL (13.0-17.5); LYMPH # 1.4 x10^3/uL (1.0-4.8); LYMPH % 8 % (24-48); MEAN CORPUSCULAR HEMOGLOBIN 30 pg (25-35); MEAN CORPUSCULAR HGB CONC 33 g/dL (31-37); MEAN CORPUSCULAR VOLUME 93 fL (79-100); MONO # 1.2 x10^3/uL (0.0-1.1); MONO % 7 % (0-9); NEUT # 14.4 x10^3uL (1.8-7.7); NEUT % 82 % (31-73); PLATELET COUNT 430 x10^3/uL (140-400); RED CELL DISTRIBUTION WIDTH 15.6 % (11.5-14.5); WHITE BLOOD COUNT 17.6 x10^3/uL (4.0-11.0)
[2019-02-24 06:39] LABS: CREATININE 1.2 mg/dL (0.7-1.3); GFR 57.8; PHOSPHORUS 2.9 mg/dL (2.6-4.7); POTASSIUM 3.6 mmol/L (3.5-5.1)
[2019-02-24 07:00] VITALS: BP 138/70
[2019-02-24] MEDS: CLOPIDOGREL BISULFATE 75 MG TABLET PO SCH (07:39)
[2019-02-24] MEDS: DOCUSATE SODIUM 100 MG CAPSULE. PO SCH ×2 (07:39→21:00)
[2019-02-24] MEDS: TAMSULOSIN 0.4 MG CAP.ER.24H. PO SCH (07:39)
[2019-02-24] MEDS: LOSARTAN POTASSIUM 50 MG TABLET. PO SCH (07:39)
[2019-02-24] MEDS: LACTOBACILLUS RHAMNOSUS GG 1 CAPSULE. PO SCH ×2 (07:39→21:00)
[2019-02-24] MEDS: CHOLECALCIFEROL (VITAMIN D3) 1,000 UNIT TABLET PO SCH (07:40)
[2019-02-24] MEDS: MULTIVITAMIN with MINERAL TABLET. PO SCH (07:40)
[2019-02-24] MEDS: ASPIRIN RECTAL 300 MG SUPP. PR SCH (07:40)
[2019-02-24] MEDS: CYANOCOBALAMIN (VITAMIN B-12) 1,000 MCG TABLET. PO SCH (07:40)
--- NOTE | 2019-02-24 09:28 | PDOC ---
Infectious Disease Note Subjective Subjective Wants to go home, says he can do better there Comfortable, denies pain/N/V/D TPN No fevers/chills ROS ROS per HPI Vital Sign Vital Signs Vital Signs Date Time Temp Pulse Resp B/P (MAP) Pulse Ox O2 Delivery O2 Flow Rate FiO2 02/24/19 08:00 Nasal Cannula 2.0 02/24/19 05:42 111 161/78 02/24/19 03:20 97.9 22 91 97.9 Physical Exam PHYSICAL EXAM GENERAL: Sitting in the chair, relaxed appearance HEENT: Oral cavity clear, dry NECK: Supple, no JVP, no lymphadenopathy. LUNGS: Clear. HEART: S1, S2 regular. ABDOMEN: Obese, soft,NT, NICOLAS x [address], purulent drainage. Small incision approx sutures, clean EXTREMITIES: Bilat LE trace edema, no cyanosis SKIN: No rash NEUROLOGIC: Alert, responds appropriately RUE-PICC (02/22) clean Labs Lab Laboratory Tests Test 02/23/19 13:25 02/24/19 05:30 Sodium Level 141 mmol/L (136-145) 139 mmol/L (136-145) Potassium Level 3.3 mmol/L (3.5-5.1) 3.6 mmol/L (3.5-5.1) Chloride Level 107 mmol/L (98-107) 108 mmol/L (98-107) Carbon Dioxide Level 23 mmol/L (21-32) 23 mmol/L (21-32) Anion Gap 11 (6-14) 8 (6-14) Blood Urea Nitrogen 26 mg/dL (8-26) 24 mg/dL (8-26) Creatinine 1.4 mg/dL (0.7-1.3) 1.2 mg/dL (0.7-1.3) Estimated GFR (Cockcroft-Gault) 48.4 57.8 Glucose Level 119 mg/dL (70-99) 165 mg/dL (70-99) Calcium Level 8.3 mg/dL (8.5-10.1) 8.0 mg/dL (8.5-10.1) Phosphorus Level 3.7 mg/dL (2.6-4.7) 2.9 mg/dL (2.6-4.7) Magnesium Level 1.9 mg/dL (1.8-2.4) 2.0 mg/dL (1.8-2.4) White Blood Count 17.6 x10^3/uL (4.0-11.0) Red Blood Count 2.60 x10^6/uL (4.30-5.70) Hemoglobin 7.9 g/dL (13.0-17.5) Hematocrit 24.1 % (39.0-53.0) Mean Corpuscular Volume 93 fL (79-100) Mean Corpuscular Hemoglobin 30 pg (25-35) Mean Corpuscular Hemoglobin Concent 33 g/dL (31-37) Red Cell Distribution Width 15.6 % (11.5-14.5) Platelet Count 430 x10^3/uL (140-400) Neutrophils (%) (Auto) 82 % (31-73) Lymphocytes (%) (Auto) 8 % (24-48) Monocytes (%) (Auto) 7 % (0-9) Eosinophils (%) (Auto) 3 % (0-3) Basophils (%) (Auto) 1 % (0-3) Neutrophils # (Auto) 14.4 x10^3uL (1.8-7.7) Lymphocytes # (Auto) 1.4 x10^3/uL (1.0-4.8) Monocytes # (Auto) 1.2 x10^3/uL (0.0-1.1) Eosinophils # (Auto) 0.5 x10^3/uL (0.0-0.7) Basophils # (Auto) 0.1 x10^3/uL (0.0-0.2) Micro Microbiology 02/17/19 Blood Culture - Final, Complete NO GROWTH AFTER 5 DAYS 02/17/19 Urine Culture - Final, Complete 02/17/19 Urine Culture Result 1 ([facility]) - Final, Complete Objective Assessment Fever, better Leukocytosis s/p CT-guided drainage, gallbladder fossa fluid collection, 02/22. GNR gram stain; s/p lap cholecystectomy, followed by lap exploration on 02/14 Hypertension. Hyperlipidemia. Atrial fibrillation. Plan Plan of Care cont Zyvox and Zosyn Probiotics PICC maintenance care PT/OT Monitor labs Patient seen, examined, I agree with above Assessment and plan formulated by [facility]. LUIS BARGER APRN February 24, 2019 09:28 NED POWELL MD February 24, 2019 14:19
[2019-02-24 11:00] VITALS: BP 154/78
--- NOTE | 2019-02-24 11:46 | PDOC ---
PROGRESS NOTES Chief Complaint Chief Complaint Status post lap cholecystectomy, 02/14/19 Postop status cyst/fulfills tachycardia tachypnea AK I VMN-creatinine 1.5 today from normal Sepsis - with fever and Leukocytosis, started on empiric Zosyn, zyvox History CVA, hypertension, dyslipidemia and GERD on medication Atrial fibrillation with RVR - rate controlled History of Present Illness History of Present Illness 83 yo M who came in for flulike symptoms. He came from home with the . Was treated. But course remarkable for developing either cholelithiasis or cholecystitis and underwent laparoscopic cholecystectomy on 02/14/19 bu postop course was remarkable for bleeding around the NICOLAS drain and around the postop site that they had to redo him that same day but no exploratory laparoscopy done/needed. Taken to ICU for Afib with RVR on 02/17/19. He is belching and c/o "reflux" symptoms and little appetite. NPO after EGD results, now s/p PICC for TPN Still in afib on oral cardizem and metoprolol. Still having BM. CT abdomen shows possible biloma vs abscess near gallbladder fossa. HIDA scan read is pending. Plan: S/p EGD - with 8-10mm ulceration at GEJ, right wall and 1 cm ulcer anterior wall bulb with marked edema and functional obstruction, started on PPI GTT Plan for NPO prolonged and down for PICC and TPN likely on d/c Schedule nausea control Cont rate control meds oral Vitals Vitals Vital Signs Date Time Temp Pulse Resp B/P (MAP) Pulse Ox O2 Delivery O2 Flow Rate FiO2 02/24/19 08:00 Nasal Cannula 2.0 02/24/19 07:00 97.6 69 16 138/70 (92) 90 97.6 Physical Exam Physical Exam GENERAL: Sitting in the chair, relaxed appearance HEENT: Oral cavity clear, dry NECK: Supple, no JVP, no lymphadenopathy. LUNGS: Clear. HEART: S1, S2 regular. ABDOMEN: Obese, soft,NT, NICOLAS [address], purulent drainage. Small incision approx sutures, clean EXTREMITIES: Bilat LE trace edema, no cyanosis SKIN: No rash NEUROLOGIC: Alert, responds appropriately RUE-PICC (02/22) clean General: Alert, Oriented X3, Cooperative, No acute distress Heart: Other (IRRR; tele AFIB with controlled rate) Lungs: Clear Abdomen: Soft, Other Extremities: Other (trace bialteral LE edema ) Skin: No rashes Labs LABS Laboratory Tests Test 02/23/19 13:25 02/24/19 05:30 Sodium Level 141 mmol/L (136-145) 139 mmol/L (136-145) Potassium Level 3.3 mmol/L (3.5-5.1) 3.6 mmol/L (3.5-5.1) Chloride Level 107 mmol/L (98-107) 108 mmol/L (98-107) Carbon Dioxide Level 23 mmol/L (21-32) 23 mmol/L (21-32) Anion Gap 11 (6-14) 8 (6-14) Blood Urea Nitrogen 26 mg/dL (8-26) 24 mg/dL (8-26) Creatinine 1.4 mg/dL (0.7-1.3) 1.2 mg/dL (0.7-1.3) Estimated GFR (Cockcroft-Gault) 48.4 57.8 Glucose Level 119 mg/dL (70-99) 165 mg/dL (70-99) Calcium Level 8.3 mg/dL (8.5-10.1) 8.0 mg/dL (8.5-10.1) Phosphorus Level 3.7 mg/dL (2.6-4.7) 2.9 mg/dL (2.6-4.7) Magnesium Level 1.9 mg/dL (1.8-2.4) 2.0 mg/dL (1.8-2.4) White Blood Count 17.6 x10^3/uL (4.0-11.0) Red Blood Count 2.60 x10^6/uL (4.30-5.70) Hemoglobin 7.9 g/dL (13.0-17.5) Hematocrit 24.1 % (39.0-53.0) Mean Corpuscular Volume 93 fL (79-100) Mean Corpuscular Hemoglobin 30 pg (25-35) Mean Corpuscular Hemoglobin Concent 33 g/dL (31-37) Red Cell Distribution Width 15.6 % (11.5-14.5) Platelet Count 430 x10^3/uL (140-400) Neutrophils (%) (Auto) 82 % (31-73) Lymphocytes (%) (Auto) 8 % (24-48) Monocytes (%) (Auto) 7 % (0-9) Eosinophils (%) (Auto) 3 % (0-3) Basophils (%) (Auto) 1 % (0-3) Neutrophils # (Auto) 14.4 x10^3uL (1.8-7.7) Lymphocytes # (Auto) 1.4 x10^3/uL (1.0-4.8) Monocytes # (Auto) 1.2 x10^3/uL (0.0-1.1) Eosinophils # (Auto) 0.5 x10^3/uL (0.0-0.7) Basophils # (Auto) 0.1 x10^3/uL (0.0-0.2) Comment Review of Relevant I have reviewed the following items timoteo (where applicable) has been applied. Labs Laboratory Tests Test 02/23/19 13:25 02/24/19 05:30 Sodium Level 141 mmol/L (136-145) 139 mmol/L (136-145) Potassium Level 3.3 mmol/L (3.5-5.1) 3.6 mmol/L (3.5-5.1) Chloride Level 107 mmol/L (98-107) 108 mmol/L (98-107) Carbon Dioxide Level 23 mmol/L (21-32) 23 mmol/L (21-32) Anion Gap 11 (6-14) 8 (6-14) Blood Urea Nitrogen 26 mg/dL (8-26) 24 mg/dL (8-26) Creatinine 1.4 mg/dL (0.7-1.3) 1.2 mg/dL (0.7-1.3) Estimated GFR (Cockcroft-Gault) 48.4 57.8 Glucose Level 119 mg/dL (70-99) 165 mg/dL (70-99) Calcium Level 8.3 mg/dL (8.5-10.1) 8.0 mg/dL (8.5-10.1) Phosphorus Level 3.7 mg/dL (2.6-4.7) 2.9 mg/dL (2.6-4.7) Magnesium Level 1.9 mg/dL (1.8-2.4) 2.0 mg/dL (1.8-2.4) White Blood Count 17.6 x10^3/uL (4.0-11.0) Red Blood Count 2.60 x10^6/uL (4.30-5.70) Hemoglobin 7.9 g/dL (13.0-17.5) Hematocrit 24.1 % (39.0-53.0) Mean Corpuscular Volume 93 fL (79-100) Mean Corpuscular Hemoglobin 30 pg (25-35) Mean Corpuscular Hemoglobin Concent 33 g/dL (31-37) Red Cell Distribution Width 15.6 % (11.5-14.5) Platelet Count 430 x10^3/uL (140-400) Neutrophils (%) (Auto) 82 % (31-73) Lymphocytes (%) (Auto) 8 % (24-48) Monocytes (%) (Auto) 7 % (0-9) Eosinophils (%) (Auto) 3 % (0-3) Basophils (%) (Auto) 1 % (0-3) Neutrophils # (Auto) 14.4 x10^3uL (1.8-7.7) Lymphocytes # (Auto) 1.4 x10^3/uL (1.0-4.8) Monocytes # (Auto) 1.2 x10^3/uL (0.0-1.1) Eosinophils # (Auto) 0.5 x10^3/uL (0.0-0.7) Basophils # (Auto) 0.1 x10^3/uL (0.0-0.2) Laboratory Tests Test 02/23/19 13:25 02/24/19 05:30 Sodium Level 141 mmol/L (136-145) 139 mmol/L (136-145) Potassium Level 3.3 mmol/L (3.5-5.1) 3.6 mmol/L (3.5-5.1) Chloride Level 107 mmol/L (98-107) 108 mmol/L (98-107) Carbon Dioxide Level 23 mmol/L (21-32) 23 mmol/L (21-32) Anion Gap 11 (6-14) 8 (6-14) Blood Urea Nitrogen 26 mg/dL (8-26) 24 mg/dL (8-26) Creatinine 1.4 mg/dL (0.7-1.3) 1.2 mg/dL (0.7-1.3) Estimated GFR (Cockcroft-Gault) 48.4 57.8 Glucose Level 119 mg/dL (70-99) 165 mg/dL (70-99) Calcium Level 8.3 mg/dL (8.5-10.1) 8.0 mg/dL (8.5-10.1) Phosphorus Level 3.7 mg/dL (2.6-4.7) 2.9 mg/dL (2.6-4.7) Magnesium Level 1.9 mg/dL (1.8-2.4) 2.0 mg/dL (1.8-2.4) White Blood Count 17.6 x10^3/uL (4.0-11.0) Red Blood Count 2.60 x10^6/uL (4.30-5.70) Hemoglobin 7.9 g/dL (13.0-17.5) Hematocrit 24.1 % (39.0-53.0) Mean Corpuscular Volume 93 fL (79-100) Mean Corpuscular Hemoglobin 30 pg (25-35) Mean Corpuscular Hemoglobin Concent 33 g/dL (31-37) Red Cell Distribution Width 15.6 % (11.5-14.5) Platelet Count 430 x10^3/uL (140-400) Neutrophils (%) (Auto) 82 % (31-73) Lymphocytes (%) (Auto) 8 % (24-48) Monocytes (%) (Auto) 7 % (0-9) Eosinophils (%) (Auto) 3 % (0-3) Basophils (%) (Auto) 1 % (0-3) Neutrophils # (Auto) 14.4 x10^3uL (1.8-7.7) Lymphocytes # (Auto) 1.4 x10^3/uL (1.0-4.8) Monocytes # (Auto) 1.2 x10^3/uL (0.0-1.1) Eosinophils # (Auto) 0.5 x10^3/uL (0.0-0.7) Basophils # (Auto) 0.1 x10^3/uL (0.0-0.2) Microbiology 02/17/19 Blood Culture - Final, Complete NO GROWTH AFTER 5 DAYS 02/17/19 Urine Culture - Final, Complete 02/17/19 Urine Culture Result 1 (PETERSON) - Final, Complete 02/22/19 Anaerobic/Aerobic Culture, Resulted Pending 02/22/19 Anaerobic Culture Result 1 (PETERSON), Resulted Pending 02/22/19 Aerobic Culture, Resulted Pending 02/22/19 Aerobic Culture Result 1 (PETERSON), Resulted Pending 02/22/19 Gram Stain - Final, Resulted 02/22/19 Gram Stain Result 1 (PETERSON) - Final, Resulted 02/22/19 Gram Stain Result 2 (PETERSON) - Final, Resulted Medications Current Medications Ondansetron HCl (Zofran) 4 mg PRN Q6HRS PRN IV NAUSEA/VOMITING; Start 02/14/19 at 07:00; Stop 02/14/19 at 20:00; Status DC Fentanyl Citrate (Fentanyl 2ml Vial) 25 mcg PRN Q5MIN PRN IV MILD PAIN Last administered on 02/14/19at 14:28; Start 02/14/19 at 07:00; Stop 02/14/19 at 20:00; Status DC Fentanyl Citrate (Fentanyl 2ml Vial) 50 mcg PRN Q5MIN PRN IV MODERATE TO SEVERE PAIN; Start 02/14/19 at 07:00; Stop 02/14/19 at 20:00; Status DC Morphine Sulfate (Morphine Sulfate) 1 mg PRN Q10MIN PRN IV SEVERE PAIN; Start 02/14/19 at 07:00; Stop 02/14/19 at 20:00; Status DC Ringer's Solution 1,000 ml @ 30 mls/hr Q24H IV Last administered on 02/14/19at 07:52; Start 02/14/19 at 07:00; Stop 02/14/19 at 18:59; Status DC Lidocaine HCl (Xylocaine-Mpf 1% 2ml Vial) 2 ml PRN 1X PRN ID PRIOR TO IV START; Start 02/14/19 at 07:00; Stop 02/14/19 at 20:00; Status DC Hydromorphone HCl (Dilaudid) 0.5 mg PRN Q10MIN PRN IV SEV PAIN, Second choice; Start 02/14/19 at 07:00; Stop 02/14/19 at 20:00; Status DC Prochlorperazine Edisylate (Compazine) 5 mg PACU PRN PRN IV NAUSEA, MRX1; Start 02/14/19 at 07:00; Stop 02/14/19 at 20:00; Status DC Cefazolin Sodium/ Dextrose 50 ml @ 100 mls/hr 1X PREOP PRN IV PRIOR TO PROCEDURE Last administered on 02/14/19at 11:21; Start 02/14/19 at 06:00; Stop 02/14/19 at 18:00; Status DC Propofol 20 ml @ As Directed STK-MED ONCE IV ; Start 02/14/19 at 08:17; Stop 02/14/19 at 08:18; Status DC Lidocaine HCl (Lidocaine Pf 2% Vial) 5 ml STK-MED ONCE .ROUTE ; Start 02/14/19 at 08:17; Stop 02/14/19 at 08:18; Status DC Ondansetron HCl (Zofran) 4 mg STK-MED ONCE .ROUTE ; Start 02/14/19 at 08:17; Stop 02/14/19 at 08:18; Status DC Dexamethasone Sodium Phosphate (Decadron) 4 mg STK-MED ONCE .ROUTE ; Start 02/14/19 at 08:17; Stop 02/14/19 at 08:18; Status DC Sevoflurane (Ultane) 60 ml STK-MED ONCE IH ; Start 02/14/19 at 08:17; Stop 02/14/19 at 08:18; Status DC Rocuronium [place] (Zemuron) 50 mg STK-MED ONCE .ROUTE ; Start 02/14/19 at 08:17; Stop 02/14/19 at 08:18; Status DC Fentanyl Citrate (Fentanyl 2ml Vial) 100 mcg STK-MED ONCE .ROUTE ; Start 02/14/19 at 08:39; Stop 02/14/19 at 08:40; Status DC Bupivacaine HCl/ Epinephrine Bitart (Sensorcain-Mpf Epi 0.5%-[id number]) 30 ml STK-MED ONCE .ROUTE Last administered on 02/14/19at 11:48; Start 02/14/19 at 10:01; Stop 02/14/19 at 11:02; Status DC Glucagon (Glucagen) 1 mg STK-MED ONCE .ROUTE ; Start 02/14/19 at 10:01; Stop 02/14/19 at 11:02; Status DC Iohexol (Omnipaque 300 Mg/ml) 100 ml STK-MED ONCE .ROUTE Last administered on 02/14/19at 11:48; Start 02/14/19 at 10:01; Stop 02/14/19 at 11:02; Status DC Cellulose (Surgicel Hemostat 4x8) 1 each STK-MED ONCE .ROUTE Last administered on 02/14/19 13:12; Start 02/14/19 at 10:01; Stop 02/14/19 at 11:02; Status DC Cellulose (Surgicel Hemostat 4x8) 1 each STK-MED ONCE .ROUTE Last administered on 02/14/19at 13:31; Start 02/14/19 at 11:19; Stop 02/14/19 at 12:19; Status DC Famotidine (Pepcid Vial) 20 mg STK-MED ONCE .ROUTE ; Start 02/14/19 at 13:14; Stop 02/14/19 at 13:15; Status DC Diphenhydramine HCl (Benadryl) 50 mg STK-MED ONCE .ROUTE ; Start 02/14/19 at 13:14; Stop 02/14/19 at 13:15; Status DC Rocuronium [place] (Zemuron) 50 mg STK-MED ONCE .ROUTE ; Start 02/14/19 at 13:14; Stop 02/14/19 at 13:15; Status DC Fentanyl Citrate (Fentanyl 2ml Vial) 100 mcg STK-MED ONCE .ROUTE ; Start 02/14/19 at 13:15; Stop 02/14/19 at 13:16; Status DC Cellulose (Surgicel Hemostat 4x8) 1 each STK-MED ONCE .ROUTE ; Start 02/14/19 at 12:33; Stop 02/14/19 at 13:33; Status DC Diphenhydramine HCl (Benadryl) 25 mg PRN Q6HRS PRN PO ITCHING Last administered on 02/23/19at 20:43; Start 02/14/19 at 14:00 Sodium Chloride (Normal Saline Flush) 3 ml QSHIFT PRN IV AFTER MEDS AND BLOOD DRAWS; Start 02/14/19 at 14:00 Potassium Chloride/Sodium Chloride 1,000 ml @ 80 mls/hr [id number] IV Last administered on 02/17/19at 06:02; Start 02/14/19 at 15:00; Stop 02/17/19 at 12:54; Status DC Dextrose (Dextrose 50%-Water Syringe) 12.5 gm PRN Q15MIN PRN IV SEE COMMENTS; Start 02/14/19 at 14:00 Acetaminophen/ Hydrocodone Bitart (Lortab 5/325) 1 tab PRN Q4HRS PRN PO MILD PAIN Last administered on 02/17/19 08:35; Start 02/14/19 at 14:00 Acetaminophen/ Hydrocodone Bitart (Lortab 5/325) 2 tab PRN Q4HRS PRN PO MODERATE PAIN, SEVERE PAIN Last administered on 02/17/19 03:22; Start 02/14/19 at 14:00 Hydromorphone HCl (Dilaudid) 1 mg PRN Q4HRS PRN IV PAIN Last administered on 02/23/19 09:46; Start 02/14/19 at 14:00 Docusate Sodium (Colace) 100 mg BID PO Last administered on 02/23/19 20:43; Start 02/14/19 at 21:00 Ondansetron HCl (Zofran) 4 mg PRN Q6HRS PRN IV NAUESA, 1ST CHOICE Last administered on 02/19/19 04:09; Start 02/14/19 at 14:00; Stop 02/19/19 at 09:05; Status DC Atorvastatin Calcium (Lipitor) 40 mg QHS PO Last administered on 02/23/19 20:43; Start 02/14/19 at 21:00 Cyanocobalamin (Vitamin B-12) 1,000 mcg DAILY PO Last administered on 02/19/19 09:32; Start 02/15/19 at 09:00 Metoprolol Succinate (Toprol Xl) 25 mg DAILY PO Last administered on 02/20/19 07:53; Start 02/15/19 at 09:00; Stop 02/20/19 at 12:11; Status DC Tamsulosin HCl (Flomax) 0.4 mg DAILY PO Last administered on 02/21/19 08:34; Start 02/15/19 at 09:00 Losartan Potassium (Cozaar) 100 mg DAILY PO Last administered on 02/21/19 08:34; Start 02/15/19 at 09:00 Fentanyl Citrate (Fentanyl 2ml Vial) 100 mcg [facility] ONCE .ROUTE ; Start 02/14/19 at 14:26; Stop 02/14/19 at 14:27; Status DC Bupivacaine HCl/ Epinephrine Bitart (Sensorcain-Mpf Epi 0.5%-1:[id number]) 30 ml STK-MED ONCE .ROUTE ; Start 02/14/19 at 15:13; Stop 02/14/19 at 16:14; Status DC Bacitracin (Bacitracin) 50,000 unit STK-MED ONCE IRR Last administered on 02/14/19at 16:49; Start 02/14/19 at 15:14; Stop 02/14/19 at 16:15; Status DC Sodium Chloride (SODIUM CHLORIDE 20ml) 20 ml STK-MED ONCE IJ ; Start 02/14/19 at 15:15; Stop 02/14/19 at 16:15; Status DC Cellulose (Surgicel Hemostat 4x8) 3 each STK-MED ONCE TP Last administered on 02/14/19at 16:49; Start 02/14/19 at 16:49; Stop 02/14/19 at 16:55; Status DC Cellulose (Surgicel Hemostat 4x8) 4 each 1X ONCE TP ; Start 02/14/19 at 17:15; Stop 02/14/19 at 17:16; Status DC Cefazolin Sodium/ Dextrose (Ancef 2gm Premix) 2 gm STK-MED ONCE IV ; Start 02/14/19 at 11:00; Stop 02/15/19 at 13:02; Status DC Piperacillin Sod/ Tazobactam Sod 3.375 gm/Sodium Chloride 50 ml @ 100 mls/hr Q6HRS IV Last administered on 02/24/19at 05:41; Start 02/17/19 at 12:00 Sodium Chloride 1,000 ml @ 125 mls/hr Q8H IV Last administered on 02/22/19at 02:43; Start 02/17/19 at 13:00; Stop 02/22/19 at 10:28; Status DC Clopidogrel Bisulfate (Plavix) 75 mg DAILY PO Last administered on 02/21/19at 08:33; Start 02/17/19 at 14:00 Vitamin D (Vitamin D3) 2,000 unit DAILY PO Last administered on 02/19/19at 09:31; Start 02/17/19 at 14:00 Multivitamins (Thera M Plus) 1 tab DAILY PO Last administered on 02/19/19 09:31; Start 02/17/19 at 14:00 Calcium Carbonate/ Glycine (Tums) 500 mg PRN AFTMEALHC PRN PO INDIGESTION Last administered on 02/18/19 22:25; Start 02/17/19 at 15:00 Acetaminophen (Tylenol) 650 mg PRN Q6HRS PRN PO fever Last administered on 02/17/19 23:50; Start 02/17/19 at 23:45; Stop 02/21/19 at 08:07; Status DC Sodium Chloride 500 ml @ 500 mls/hr 1X ONCE IV Last administered on 02/17/19 23:48; Start 02/18/19 at 00:00; Stop 02/18/19 at 00:59; Status DC Diltiazem HCl 125 mg/Dextrose 125 ml @ 5 mls/hr CONT PRN IV SEE I/O RECORD Last administered on 02/18/19 04:27; Start 02/18/19 at 04:15; Stop 02/18/19 at 16:09; Status DC Linezolid/Dextrose 300 ml @ 300 mls/hr Q12HR IV Last administered on 02/24/19 08:01; Start 02/18/19 at 09:00 Lactobacillus Rhamnosus (Culturelle) 1 cap BID PO Last administered on 02/23/19 20:43; Start 02/18/19 at 21:00 Diltiazem HCl (Cardizem 24hr Cd) 240 mg DAILY PO Last administered on 02/21/19 08:34; Start 02/18/19 at 12:30 Aspirin (Ecotrin) 81 mg DAILYWBKFT PO Last administered on 02/21/19 08:34; Start 02/18/19 at 16:15; Stop 02/22/19 at 16:16; Status DC Acetaminophen (Tylenol) 650 mg PRN Q6HRS PRN PO FEVER Last administered on 02/22/19 21:39; Start 02/19/19 at 01:45 Acetaminophen (Tylenol Supp) 650 mg PRN Q6HRS PRN VA MILD PAIN/TEMP Last administered on 02/19/19at 02:18; Start 02/19/19 at 02:15 Norepinephrine Bitartrate 250 ml @ 1.875 mls/ hr CONT PRN IV SEE I/O RECORD; Start 02/19/19 at 07:30; Stop 02/23/19 at 11:38; Status DC Digoxin (Lanoxin) 250 mcg 1X ONCE IV Last administered on 02/19/19at 07:36; Start 02/19/19 at 07:30; Stop 02/19/19 at 07:31; Status DC Sodium Chloride 500 ml @ 500 mls/hr 1X ONCE IV Last administered on 02/19/19at 07:35; Start 02/19/19 at 07:30; Stop 02/19/19 at 08:29; Status DC Ondansetron HCl (Zofran) 4 mg Q6HRS IV Last administered on 02/20/19at 05:43; Start 02/19/19 at 12:00; Stop 02/20/19 at 10:56; Status DC Pantoprazole Sodium (Protonix) 40 mg BIDAC PO Last administered on 02/21/19at 08:34; Start 02/19/19 at 16:30; Stop 02/21/19 at 15:18; Status DC Digoxin (Lanoxin) 250 mcg 1X ONCE IV Last administered on 02/19/19at 22:57; Start 02/19/19 at 23:00; Stop 02/19/19 at 23:01; Status DC Cellulose (Surgicel Hemostat 4x8) 1 each STK-MED ONCE .ROUTE ; Start 02/14/19 at 15:23; Stop 02/20/19 at 08:42; Status DC Cellulose (Surgicel Hemostat 4x8) 1 each STK-MED ONCE .ROUTE ; Start 02/14/19 at 15:50; Stop 02/20/19 at 08:42; Status DC Propofol 20 ml @ As Directed STK-MED ONCE IV ; Start 02/14/19 at 16:05; Stop 02/20/19 at 08:42; Status DC Famotidine (Pepcid Vial) 20 mg STK-MED ONCE .ROUTE ; Start 02/14/19 at 16:05; Stop 02/20/19 at 08:42; Status DC Lidocaine HCl (Lidocaine Pf 2% Vial) 5 ml STK-MED ONCE .ROUTE ; Start 02/14/19 at 16:05; Stop 02/20/19 at 08:42; Status DC Ondansetron HCl (Zofran) 4 mg STK-MED ONCE .ROUTE ; Start 02/14/19 at 16:05; Stop 02/20/19 at 08:42; Status DC Rocuronium [place] (Zemuron) 100 mg STK-MED ONCE .ROUTE ; Start 02/14/19 at 16:05; Stop 02/20/19 at 08:42; Status DC Fentanyl Citrate (Fentanyl 2ml Vial) 100 mcg STK-MED ONCE .ROUTE ; Start 02/14/19 at 16:06; Stop 02/20/19 at 08:42; Status DC Dexamethasone Sodium Phosphate (Decadron) 4 mg STK-MED ONCE .ROUTE ; Start 02/14/19 at 16:06; Stop 02/20/19 at 08:42; Status DC Neostigmine Methylsulfate (Neostigmine Methylsulfate) 5 mg STK-MED ONCE .ROUTE ; Start 02/14/19 at 17:26; Stop 02/20/19 at 08:42; Status DC Glycopyrrolate (Robinul) 1 mg STK-MED ONCE .ROUTE ; Start 02/14/19 at 17:26; Stop 02/20/19 at 08:42; Status DC Ondansetron HCl (Zofran) 4 mg PRN Q6HRS PRN IV NAUSEA/VOMITING; Start 02/20/19 at 10:54 Metoprolol Tartrate (Lopressor) 25 mg BID PO Last administered on 02/21/19at 20:44; Start 02/20/19 at 12:15; Stop 02/22/19 at 10:28; Status DC Ringer's Solution 1,000 ml @ 50 mls/hr Q20H IV Last administered on 02/21/19at 14:47; Start 02/21/19 at 07:00; Stop 02/21/19 at 18:59; Status DC Midazolam HCl (Versed) 2 mg PRN 1X PRN IV PRIOR TO PROCEDURE; Start 02/21/19 at 12:30; Stop 02/22/19 at 12:29; Status DC Fentanyl Citrate (Fentanyl 2ml Vial) 25 mcg PRN Q5MIN PRN IV X 2 DOSES FOR PAIN; Start 02/21/19 at 12:30; Stop 02/22/19 at 12:29; Status DC Fentanyl Citrate (Fentanyl 2ml Vial) 50 mcg PRN Q5MIN PRN IV X 2 DOSES FOR PAIN; Start 02/21/19 at 12:30; Stop 02/22/19 at 12:29; Status DC Ringer's Solution 1,000 ml @ 125 mls/hr Q8H IV Last administered on 02/21/19at 12:27; Start 02/21/19 at 12:27; Stop 02/22/19 at 00:26; Status DC Lidocaine HCl (Xylocaine-Mpf 1% 2ml Vial) 2 ml 1X PRN PRN ID IV START; Start 02/21/19 at 12:30; Stop 02/22/19 at 12:29; Status DC Pantoprazole Sodium 80 mg/ Sodium Chloride 100 ml @ 10 mls/hr Q10H IV Last administered on 02/24/19at 05:42; Start 02/21/19 at 15:30 Metoprolol Tartrate (Lopressor Vial) 5 mg Q6HRS IVP Last administered on 02/24/19 05:42; Start 02/22/19 at 12:00 Lidocaine/Sodium Bicarbonate (Buffered Lidocaine 1%) 3 ml STK-MED ONCE .ROUTE ; Start 02/22/19 at 12:08; Stop 02/22/19 at 12:09; Status DC Midazolam HCl (Versed) 2 mg STK-MED ONCE .ROUTE ; Start 02/22/19 at 12:21; Stop 02/22/19 at 12:22; Status DC Fentanyl Citrate (Fentanyl 2ml Vial) 100 mcg STK-MED ONCE .ROUTE ; Start 02/22/19 at 12:21; Stop 02/22/19 at 12:22; Status DC Lidocaine/Sodium Bicarbonate (Buffered Lidocaine 1%) 3 ml 1X ONCE IJ Last administered on 02/22/19at 13:00; Start 02/22/19 at 12:30; Stop 02/22/19 at 12:31; Status DC Midazolam HCl (Versed) 2 mg 1X ONCE IV Last administered on 02/22/19at 13:01; Start 02/22/19 at 12:30; Stop 02/22/19 at 12:31; Status DC Fentanyl Citrate (Fentanyl 2ml Vial) 100 mcg 1X ONCE IV Last administered on 02/22/19at 13:02; Start 02/22/19 at 12:30; Stop 02/22/19 at 12:31; Status DC Furosemide (Lasix) 40 mg 1X ONCE IVP Last administered on 02/22/19at 16:20; St art 02/22/19 at 16:15; Stop 02/22/19 at 16:16; Status DC Hydralazine HCl (Apresoline Inj) 10 mg PRN Q4HRS PRN IVP ELEVATED BP, SEE COMMENTS; Start 02/22/19 at 16:15 Digoxin (Lanoxin) 250 mcg PRN DAILY PRN IV SEE COMMENTS; Start 02/22/19 at 16:15 Albumin Human 100 ml @ 100 mls/hr 1X ONCE IV Last administered on 02/22/19at 16:20; Start 02/22/19 at 16:15; Stop 02/22/19 at 17:14; Status DC Aspirin (Aspirin) 150 mg DAILY [facility] ; Start 02/22/19 at 17:00 Info (Tpn Per Pharmacy) 1 each PRN DAILY PRN MC SEE COMMENTS Last administered on 02/23/19at 14:16; Start 02/23/19 at 11:45 Sodium Chloride 90 meq/Potassium Chloride 70 meq/ Potassium Phosphate 13.6 mmol/Magnesium Sulfate 15 meq/ Calcium Gluconate 10 meq/ Multivitamins 10 ml/Chromium/ Copper/Manganese/ Seleni/Zn 1 ml/ Total Parenteral Nutrition/Amino Acids/Dextrose/ Fat Emulsion Intravenous 1,512 ml @ 63 mls/hr TPN CONT IV Last administered on 02/23/19at 21:28; Start 02/23/19 at 22:00; Stop 02/24/19 at 21:59 Potassium Chloride/Water 50 ml @ 50 mls/hr Q1H IV Last administered on 02/23/19at 15:31; Start 02/23/19 at 15:00; Stop 02/23/19 at 16:59; Status DC Active Scripts Active Atorvastatin Calcium 40 Mg Tablet 40 Mg PO QHS 30 Days Reported Flomax (Tamsulosin Hcl) 0.4 Mg Cap.er.24h 0.4 Mg PO DAILY Clopidogrel (Clopidogrel Bisulfate) 75 Mg Tablet 75 Mg PO DAILY Aspirin 81 Mg Tab.chew 1 Tab PO DAILY Vitamin B-12 (Cyanocobalamin (Vitamin B-12)) 1,000 Mcg Tablet 1 Tab PO DAILY Metoprolol Succinate ( Xl ) (Metoprolol Succinate) 25 Mg Tab.er.24h 1 Tab PO DAILY Losartan Potassium 100 Mg Tablet 100 Mg PO DAILY Multivitamins (Multivitamin) 1 Each Tablet 1 Tab PO DAILY Vitamin D (Cholecalciferol (Vitamin D3)) 2,000 Unit Capsule 1 Cap PO DAILY Vitals/I & O Vital Sign - Last 24 Hours 02/23/19 02/23/19 02/23/19 02/23/19 12:34 14:44 17:17 19:30 Temp 97.6 97.8 97.6 97.8 Pulse 98 95 95 104 Resp 26 21 B/P (MAP) 113/59 128/68 (88) 128/68 150/80 (103) Pulse Ox 95 97 O2 Delivery Nasal Cannula Nasal Cannula O2 Flow Rate 2.0 2.0 02/23/19 02/23/19 02/23/19 02/24/19 19:46 23:00 23:35 03:20 Temp 98.4 97.9 98.4 97.9 Pulse 105 113 111 Resp 24 22 B/P (MAP) 143/81 (101) 143/81 161/78 (105) Pulse Ox 94 91 O2 Delivery Nasal Cannula Nasal Cannula Room Air O2 Flow Rate 2.0 2.0 02/24/19 02/24/19 02/24/19 05:42 07:00 08:00 Temp 97.6 97.6 Pulse 111 69 Resp 16 B/P (MAP) 161/78 138/70 (92) Pulse Ox 90 O2 Delivery Nasal Cannula Nasal Cannula O2 Flow Rate 2.0 2.0 Intake and Output 02/23/19 02/23/19 02/24/19 15:00 23:00 07:00 Intake Total 560 ml Output Total 520 ml 450 ml Balance 40 ml -450 ml Nutrition Consultation Dietary Evaluation: Recommendations by RD: Increase Calorie Intake, Protein supplementation Comments: Continue w/GI soft diet at this time, honor food preferences, and provide snacks as requested REC Ensure w/lunch (only strawberry or vanilla) If PO intake does not improve >50% meals within next few days, recommend conisderation of PPN to supplement poor PO intake Expected Outcomes/Goals: PO intake to meet >75% est needs - not met, goal ongoing Malnutrition Findings: Food and Nutrition Intake (Sev: <50% est energy req 5days Weight Status: Appropriate ABIGAIL LIMON MD February 24, 2019 11:46
[2019-02-24] MEDS ORDERED: MORPHINE SULFATE 2 MG/ML VIAL. IV PRN (12:00)
[2019-02-24] MEDS: TPN PER PHARMACY MC PRN (12:48)
--- NOTE | 2019-02-24 12:49 | NUR ---
Pharmacy TPN Dosing Note S: SHELDONRUDY Flores is a 83 year old M Currently receiving Central Continuous TPN started 02/23/19 B:Pertinent PMH: GASTRIC OUTLET OBSTRUCTION Height: 6 feet, 0 inches Weight: [id number] kg Current diet: NPO LABS: Sodium: 139 Potassium: 3.6 Chloride: 108 Calcium: 8.0 Corrected Calcium: 10.16 Magnesium: 2.0 CO2: 23 SCr: 1.2 Glucose: 165 Albumin: 1.3 AST: 45 ALT: 41 TPN FORMULA: TPN TYPE: Central Continuous AMINO ACIDS: 60 gm DEXTROSE: 195 gm LIPIDS: 20 gm SODIUM CHLORIDE: 90 mEq SODIUM ACETATE: mEq SODIUM PHOSPHATE: mmol POTASSIUM CHLORIDE: 70 mEq POTASSIUM ACETATE: mEq POTASSIUM PHOSPHATE: 25 mmol MAGNESIUM: 15 mEq CALCIUM: 10 mEq INSULIN: units MULTIPLE VITAMIN: 10 ml TRACE ELEMENTS: 1 ml(s) TPN PLAN: -Phos=2.9, WNL but large drop from yesterday, will increase KPhos to 25mmol -Other labs look good, continue same -Labs in the am R: Continue TPN as written above. Will monitor electrolytes, glucose, and tolerance to TPN. REBEKA BAE [facility], 02/24/19 [id number]
--- NOTE | 2019-02-24 14:39 | PDOC ---
PROGRESS NOTES Subjective Subjective no significant pain, wanting to go home soon Objective Objective Vital Signs Date Time Temp Pulse Resp B/P (MAP) Pulse Ox O2 Delivery O2 Flow Rate FiO2 02/24/19 12:12 109 154/78 02/24/19 11:00 97.4 18 93 Nasal Cannula 2.0 97.4 Intake and Output 02/24/19 06:59 Intake Total 560 ml Output Total 970 ml Balance -410 ml Intake Oral 60 ml Blood Product IV Normal Saline Flush 500 ml Output Urine Total 750 ml Drainage Total 220 ml # Bowel Movements 1 Physical Exam Abdomen: Soft (drains with serosang output) Plan Plan of Care HIDA result still pending, clinically doing well Comment Review of Relevant I have reviewed the following items timoteo (where applicable) has been applied. Labs Laboratory Tests Test 02/23/19 13:25 02/24/19 05:30 Sodium Level 141 mmol/L (136-145) 139 mmol/L (136-145) Potassium Level 3.3 mmol/L (3.5-5.1) 3.6 mmol/L (3.5-5.1) Chloride Level 107 mmol/L (98-107) 108 mmol/L (98-107) Carbon Dioxide Level 23 mmol/L (21-32) 23 mmol/L (21-32) Anion Gap 11 (6-14) 8 (6-14) Blood Urea Nitrogen 26 mg/dL (8-26) 24 mg/dL (8-26) Creatinine 1.4 mg/dL (0.7-1.3) 1.2 mg/dL (0.7-1.3) Estimated GFR (Cockcroft-Gault) 48.4 57.8 Glucose Level 119 mg/dL (70-99) 165 mg/dL (70-99) Calcium Level 8.3 mg/dL (8.5-10.1) 8.0 mg/dL (8.5-10.1) Phosphorus Level 3.7 mg/dL (2.6-4.7) 2.9 mg/dL (2.6-4.7) Magnesium Level 1.9 mg/dL (1.8-2.4) 2.0 mg/dL (1.8-2.4) White Blood Count 17.6 x10^3/uL (4.0-11.0) Red Blood Count 2.60 x10^6/uL (4.30-5.70) Hemoglobin 7.9 g/dL (13.0-17.5) Hematocrit 24.1 % (39.0-53.0) Mean Corpuscular Volume 93 fL (79-100) Mean Corpuscular Hemoglobin 30 pg (25-35) Mean Corpuscular Hemoglobin Concent 33 g/dL (31-37) Red Cell Distribution Width 15.6 % (11.5-14.5) Platelet Count 430 x10^3/uL (140-400) Neutrophils (%) (Auto) 82 % (31-73) Lymphocytes (%) (Auto) 8 % (24-48) Monocytes (%) (Auto) 7 % (0-9) Eosinophils (%) (Auto) 3 % (0-3) Basophils (%) (Auto) 1 % (0-3) Neutrophils # (Auto) 14.4 x10^3uL (1.8-7.7) Lymphocytes # (Auto) 1.4 x10^3/uL (1.0-4.8) Monocytes # (Auto) 1.2 x10^3/uL (0.0-1.1) Eosinophils # (Auto) 0.5 x10^3/uL (0.0-0.7) Basophils # (Auto) 0.1 x10^3/uL (0.0-0.2) Laboratory Tests Test 02/24/19 05:30 White Blood Count 17.6 x10^3/uL (4.0-11.0) Red Blood Count 2.60 x10^6/uL (4.30-5.70) Hemoglobin 7.9 g/dL (13.0-17.5) Hematocrit 24.1 % (39.0-53.0) Mean Corpuscular Volume 93 fL (79-100) Mean Corpuscular Hemoglobin 30 pg (25-35) Mean Corpuscular Hemoglobin Concent 33 g/dL (31-37) Red Cell Distribution Width 15.6 % (11.5-14.5) Platelet Count 430 x10^3/uL (140-400) Neutrophils (%) (Auto) 82 % (31-73) Lymphocytes (%) (Auto) 8 % (24-48) Monocytes (%) (Auto) 7 % (0-9) Eosinophils (%) (Auto) 3 % (0-3) Basophils (%) (Auto) 1 % (0-3) Neutrophils # (Auto) 14.4 x10^3uL (1.8-7.7) Lymphocytes # (Auto) 1.4 x10^3/uL (1.0-4.8) Monocytes # (Auto) 1.2 x10^3/uL (0.0-1.1) Eosinophils # (Auto) 0.5 x10^3/uL (0.0-0.7) Basophils # (Auto) 0.1 x10^3/uL (0.0-0.2) Sodium Level 139 mmol/L (136-145) Potassium Level 3.6 mmol/L (3.5-5.1) Chloride Level 108 mmol/L (98-107) Carbon Dioxide Level 23 mmol/L (21-32) Anion Gap 8 (6-14) Blood Urea Nitrogen 24 mg/dL (8-26) Creatinine 1.2 mg/dL (0.7-1.3) Estimated GFR (Cockcroft-Gault) 57.8 Glucose Level 165 mg/dL (70-99) Calcium Level 8.0 mg/dL (8.5-10.1) Phosphorus Level 2.9 mg/dL (2.6-4.7) Magnesium Level 2.0 mg/dL (1.8-2.4) Microbiology 02/17/19 Blood Culture - Final, Complete NO GROWTH AFTER 5 DAYS 02/17/19 Urine Culture - Final, Complete 02/17/19 Urine Culture Result 1 (PETERSON) - Final, Complete 02/22/19 Anaerobic/Aerobic Culture, Resulted Pending 02/22/19 Anaerobic Culture Result 1 (PETERSON), Resulted Pending 02/22/19 Aerobic Culture, Resulted Pending 02/22/19 Aerobic Culture Result 1 (PETERSON), Resulted Pending 02/22/19 Gram Stain - Final, Resulted 02/22/19 Gram Stain Result 1 (PETERSON) - Final, Resulted 02/22/19 Gram Stain Result 2 (PETERSON) - Final, Resulted Medications Current Medications Ondansetron HCl (Zofran) 4 mg PRN Q6HRS PRN IV NAUSEA/VOMITING; Start 02/14/19 at 07:00; Stop 02/14/19 at 20:00; Status DC Fentanyl Citrate (Fentanyl 2ml Vial) 25 mcg PRN Q5MIN PRN IV MILD PAIN Last administered on 02/14/19at 14:28; Start 02/14/19 at 07:00; Stop 02/14/19 at 20:00; Status DC Fentanyl Citrate (Fentanyl 2ml Vial) 50 mcg PRN Q5MIN PRN IV MODERATE TO SEVERE PAIN; Start 02/14/19 at 07:00; Stop 02/14/19 at 20:00; Status DC Morphine Sulfate (Morphine Sulfate) 1 mg PRN Q10MIN PRN IV SEVERE PAIN; Start 02/14/19 at 07:00; Stop 02/14/19 at 20:00; Status DC Ringer's Solution 1,000 ml @ 30 mls/hr Q24H IV Last administered on 02/14/19at 07:52; Start 02/14/19 at 07:00; Stop 02/14/19 at 18:59; Status DC Lidocaine HCl (Xylocaine-Mpf 1% 2ml Vial) 2 ml PRN 1X PRN ID PRIOR TO IV START; Start 02/14/19 at 07:00; Stop 02/14/19 at 20:00; Status DC Hydromorphone HCl (Dilaudid) 0.5 mg PRN Q10MIN PRN IV SEV PAIN, Second choice; Start 02/14/19 at 07:00; Stop 02/14/19 at 20:00; Status DC Prochlorperazine Edisylate (Compazine) 5 mg PACU PRN PRN IV NAUSEA, MRX1; Start 02/14/19 at 07:00; Stop 02/14/19 at 20:00; Status DC Cefazolin Sodium/ Dextrose 50 ml @ 100 mls/hr 1X PREOP PRN IV PRIOR TO PROCEDURE Last administered on 02/14/19at 11:21; Start 02/14/19 at 06:00; Stop 02/14/19 at 18:00; Status DC Propofol 20 ml @ As Directed STK-MED ONCE IV ; Start 02/14/19 at 08:17; Stop 02/14/19 at 08:18; Status DC Lidocaine HCl (Lidocaine Pf 2% Vial) 5 ml STK-MED ONCE .ROUTE ; Start 02/14/19 at 08:17; Stop 02/14/19 at 08:18; Status DC Ondansetron HCl (Zofran) 4 mg STK-MED ONCE .ROUTE ; Start 02/14/19 at 08:17; Stop 02/14/19 at 08:18; Status DC Dexamethasone Sodium Phosphate (Decadron) 4 mg STK-MED ONCE .ROUTE ; Start 02/14 at 08:17; Stop 02/14/19 at 08:18; Status DC Sevoflurane (Ultane) 60 ml STK-MED ONCE IH ; Start 02/14/19 at 08:17; Stop 01/22 03/10 at 08:18; Status DC Rocuronium Montrose (Zemuron) 50 mg STK-MED ONCE .ROUTE ; Start 02/14/19 at 08:17; Stop 02/14/19 at 08:18; Status DC Fentanyl Citrate (Fentanyl 2ml Vial) 100 mcg STK-MED ONCE .ROUTE ; Start 02/14/19 at 08:39; Stop 02/14/19 at 08:40; Status DC Bupivacaine HCl/ Epinephrine Bitart (Sensorcain-Mpf Epi 0.5%-[id number]) 30 ml STK-MED ONCE .ROUTE Last administered on 02/14/19 11:48; Start 02/14/19 at 10:01; Stop 02/14/19 at 11:02; Status DC Glucagon (Glucagen) 1 mg STK-MED ONCE .ROUTE ; Start 02/14/19 at 10:01; Stop 02/14/19 at 11:02; Status DC Iohexol (Omnipaque 300 Mg/ml) 100 ml STK-MED ONCE .ROUTE Last administered on 02/14/19at 11:48; Start 02/14/19 at 10:01; Stop 02/14/19 at 11:02; Status DC Cellulose (Surgicel Hemostat 4x8) 1 each STK-MED ONCE .ROUTE Last administered on 02/14/19 13:12; Start 02/14/19 at 10:01; Stop 02/14/19 at 11:02; Status DC Cellulose (Surgicel Hemostat 4x8) 1 each STK-MED ONCE .ROUTE Last administered on 02/14/19 13:31; Start 02/14/19 at 11:19; Stop 02/14/19 at 12:19; Status DC Famotidine (Pepcid Vial) 20 mg STK-MED ONCE .ROUTE ; Start 02/14/19 at 13:14; Stop 02/14/19 at 13:15; Status DC Diphenhydramine HCl (Benadryl) 50 mg STK-MED ONCE .ROUTE ; Start 02/14/19 at 13:14; Stop 02/14/19 at 13:15; Status DC Rocuronium [place]rose (Zemuron) 50 mg STK-MED ONCE .ROUTE ; Start 02/14/19 at 13:14; Stop 02/14/19 at 13:15; Status DC Fentanyl Citrate (Fentanyl 2ml Vial) 100 mcg STK-MED ONCE .ROUTE ; Start 02/14/19 at 13:15; Stop 02/14/19 at 13:16; Status DC Cellulose (Surgicel Hemostat 4x8) 1 each STK-MED ONCE .ROUTE ; Start 02/14/19 at 12:33; Stop 02/14/19 at 13:33; Status DC Diphenhydramine HCl (Benadryl) 25 mg PRN Q6HRS PRN PO ITCHING Last administered on 02/23/19at 20:43; Start 02/14/19 at 14:00 Sodium Chloride (Normal Saline Flush) 3 ml QSHIFT PRN IV AFTER MEDS AND BLOOD DRAWS; Start 02/14/19 at 14:00 Potassium Chloride/Sodium Chloride 1,000 ml @ 80 mls/hr [id number] IV Last administered on 02/17/19at 06:02; Start 02/14/19 at 15:00; Stop 02/17/19 at 12:54; Status DC Dextrose (Dextrose 50%-Water Syringe) 12.5 gm PRN Q15MIN PRN IV SEE COMMENTS; Start 02/14/19 at 14:00 Acetaminophen/ Hydrocodone Bitart (Lortab 5/325) 1 tab PRN Q4HRS PRN PO MILD PAIN Last administered on 02/17/19at 08:35; Start 02/14/19 at 14:00 Acetaminophen/ Hydrocodone Bitart (Lortab 5/325) 2 tab PRN Q4HRS PRN PO MODERATE PAIN, SEVERE PAIN Last administered on 02/17/19at 03:22; Start 02/14/19 at 14:00 Hydromorphone HCl (Dilaudid) 1 mg PRN Q4HRS PRN IV PAIN Last administered on 02/23/19 09:46; Start 02/14/19 at 14:00; Stop 02/24/19 at 11:48; Status DC Docusate Sodium (Colace) 100 mg BID PO Last administered on 02/23/19 20:43; Start 02/14/19 at 21:00 Ondansetron HCl (Zofran) 4 mg PRN Q6HRS PRN IV NAUESA, 1ST CHOICE Last administered on 02/19/19 04:09; Start 02/14/19 at 14:00; Stop 02/19/19 at 09:05; Status DC Atorvastatin Calcium (Lipitor) 40 mg QHS PO Last administered on 02/23/19 20:43; Start 02/14/19 at 21:00 Cyanocobalamin (Vitamin B-12) 1,000 mcg DAILY PO Last administered on 02/19/19 09:32; Start 02/15/19 at 09:00 Metoprolol Succinate (Toprol Xl) 25 mg DAILY PO Last administered on 02/20/19 07:53; Start 02/15/19 at 09:00; Stop 02/20/19 at 12:11; Status DC Tamsulosin HCl (Flomax) 0.4 mg DAILY PO Last administered on 02/21/19 08:34; Start 02/15/19 at 09:00 Losartan Potassium (Cozaar) 100 mg DAILY PO Last administered on 02/21/19 08:34; Start 02/15/19 at 09:00 Fentanyl Citrate (Fentanyl 2ml Vial) 100 mcg STK-MED ONCE .ROUTE ; Start 02/14/19 at 14:26; Stop 02/14/19 at 14:27; Status DC Bupivacaine HCl/ Epinephrine Bitart (Sensorcain-Mpf Epi 0.5%-1:[id number]) 30 ml STK-MED ONCE .ROUTE ; Start 02/14/19 at 15:13; Stop 02/14/19 at 16:14; Status DC Bacitracin (Bacitracin) 50,000 unit STK-MED ONCE IRR Last administered on 02/14/19at 16:49; Start 02/14/19 at 15:14; Stop 02/14/19 at 16:15; Status DC Sodium Chloride (SODIUM CHLORIDE 20ml) 20 ml STK-MED ONCE IJ ; Start 02/14/19 at 15:15; Stop 02/14/19 at 16:15; Status DC Cellulose (Surgicel Hemostat 4x8) 3 each STK-MED ONCE TP Last administered on 02/14/19at 16:49; Start 02/14/19 at 16:49; Stop 02/14/19 at 16:55; Status DC Cellulose (Surgicel Hemostat 4x8) 4 each 1X ONCE TP ; Start 02/14/19 at 17:15; Stop 02/14/19 at 17:16; Status DC Cefazolin Sodium/ Dextrose (Ancef 2gm Premix) 2 gm STK-MED ONCE IV ; Start 02/14/19 at 11:00; Stop 02/15/19 at 13:02; Status DC Piperacillin Sod/ Tazobactam Sod 3.375 gm/Sodium Chloride 50 ml @ 100 mls/hr Q6HRS IV Last administered on 02/24/19at 12:13; Start 02/17/19 at 12:00 Sodium Chloride 1,000 ml @ 125 mls/hr Q8H IV Last administered on 02/22/19at 02:43; Start 02/17/19 at 13:00; Stop 02/22/19 at 10:28; Status DC Clopidogrel Bisulfate (Plavix) 75 mg DAILY PO Last administered on 02/21/19at 08:33; Start 02/17/19 at 14:00 Vitamin D (Vitamin D3) 2,000 unit DAILY PO Last administered on 02/19/19at 09:31; Start 02/17/19 at 14:00 Multivitamins (Thera M Plus) 1 tab DAILY PO Last administered on 02/19/19at 09:31; Start 02/17/19 at 14:00 Calcium Carbonate/ Glycine (Tums) 500 mg PRN AFTMEALHC PRN PO INDIGESTION Last administered on 02/18/19at 22:25; Start 02/17/19 at 15:00 Acetaminophen (Tylenol) 650 mg PRN Q6HRS PRN PO fever Last administered on 02/17/19at 23:50; Start 02/17/19 at 23:45; Stop 02/21/19 at 08:07; Status DC Sodium Chloride 500 ml @ 500 mls/hr 1X ONCE IV Last administered on 02/17/19 23:48; Start 02/18/19 at 00:00; Stop 02/18/19 at 00:59; Status DC Diltiazem HCl 125 mg/Dextrose 125 ml @ 5 mls/hr CONT PRN IV SEE I/O RECORD Last administered on 02/18/19 04:27; Start 02/18/19 at 04:15; Stop 02/18/19 at 16:09; Status DC Linezolid/Dextrose 300 ml @ 300 mls/hr Q12HR IV Last administered on 02/24/19 08:01; Start 02/18/19 at 09:00 Lactobacillus Rhamnosus (Culturelle) 1 cap BID PO Last administered on 02/23/19 20:43; Start 02/18/19 at 21:00 Diltiazem HCl (Cardizem 24hr Cd) 240 mg DAILY PO Last administered on 02/21/19 08:34; Start 02/18/19 at 12:30 Aspirin (Ecotrin) 81 mg [id number] PO Last administered on 02/21/19 08:34; Start 02/18/19 at 16:15; Stop 02/22/19 at 16:16; Status DC Acetaminophen (Tylenol) 650 mg PRN Q6HRS PRN PO FEVER Last administered on 02/22/19 21:39; Start 02/19/19 at 01:45 Acetaminophen (Tylenol Supp) 650 mg PRN Q6HRS PRN OR MILD PAIN/TEMP Last administered on 02/19/19 02:18; Start 02/19/19 at 02:15 Norepinephrine Bitartrate 250 ml @ 1.875 mls/ hr CONT PRN IV SEE I/O RECORD; Start 02/19/19 at 07:30; Stop 02/23/19 at 11:38; Status DC Digoxin (Lanoxin) 250 mcg 1X ONCE IV Last administered on 02/19/19 07:36; Start 02/19/19 at 07:30; Stop 02/19/19 at 07:31; Status DC Sodium Chloride 500 ml @ 500 mls/hr 1X ONCE IV Last administered on 02/19/19 07:35; Start 02/19/19 at 07:30; Stop 02/19/19 at 08:29; Status DC Ondansetron HCl (Zofran) 4 mg Q6HRS IV Last administered on 02/20/19at 05:43; Start 02/19/19 at 12:00; Stop 02/20/19 at 10:56; Status DC Pantoprazole Sodium (Protonix) 40 mg BIDAC PO Last administered on 02/21/19at 08:34; Start 02/19/19 at 16:30; Stop 02/21/19 at 15:18; Status DC Digoxin (Lanoxin) 250 mcg 1X ONCE IV Last administered on 02/19/19at 22:57; Start 02/19/19 at 23:00; Stop 02/19/19 at 23:01; Status DC Cellulose (Surgicel Hemostat 4x8) 1 each STK-MED ONCE .ROUTE ; Start 02/14/19 at 15:23; Stop 02/20/19 at 08:42; Status DC Cellulose (Surgicel Hemostat 4x8) 1 each STK-MED ONCE .ROUTE ; Start 02/14/19 at 15:50; Stop 02/20/19 at 08:42; Status DC Propofol 20 ml @ As Directed STK-MED ONCE IV ; Start 02/14/19 at 16:05; Stop 02/20/19 at 08:42; Status DC Famotidine (Pepcid Vial) 20 mg STK-MED ONCE .ROUTE ; Start 02/14/19 at 16:05; Stop 02/20/19 at 08:42; Status DC Lidocaine HCl (Lidocaine Pf 2% Vial) 5 ml STK-MED ONCE .ROUTE ; Start 02/14/19 at 16:05; Stop 02/20/19 at 08:42; Status DC Ondansetron HCl (Zofran) 4 mg STK-MED ONCE .ROUTE ; Start 02/14/19 at 16:05; Stop 02/20/19 at 08:42; Status DC Rocuronium [place]rose (Zemuron) 100 mg STK-MED ONCE .ROUTE ; Start 02/14/19 at 16:05; Stop 02/20/19 at 08:42; Status DC Fentanyl Citrate (Fentanyl 2ml Vial) 100 mcg STK-MED ONCE .ROUTE ; Start 02/14/19 at 16:06; Stop 02/20/19 at 08:42; Status DC Dexamethasone Sodium Phosphate (Decadron) 4 mg STK-MED ONCE .ROUTE ; Start 02/14/19 at 16:06; Stop 02/20/19 at 08:42; Status DC Neostigmine Methylsulfate (Neostigmine Methylsulfate) 5 mg STK-MED ONCE .ROUTE ; Start 02/14/19 at 17:26; Stop 02/20/19 at 08:42; Status DC Glycopyrrolate (Robinul) 1 mg STK-MED ONCE .ROUTE ; Start 02/14/19 at 17:26; Stop 02/20/19 at 08:42; Status DC Ondansetron HCl (Zofran) 4 mg PRN Q6HRS PRN IV NAUSEA/VOMITING; Start 02/20/19 at 10:54 Metoprolol Tartrate (Lopressor) 25 mg BID PO Last administered on 02/21/19at 20:44; Start 02/20/19 at 12:15; Stop 02/22/19 at 10:28; Status DC Ringer's Solution 1,000 ml @ 50 mls/hr Q20H IV Last administered on 02/21/19at 14:47; Start 02/21/19 at 07:00; Stop 02/21/19 at 18:59; Status DC Midazolam HCl (Versed) 2 mg PRN 1X PRN IV PRIOR TO PROCEDURE; Start 02/21/19 at 12:30; Stop 02/22/19 at 12:29; Status DC Fentanyl Citrate (Fentanyl 2ml Vial) 25 mcg PRN Q5MIN PRN IV X 2 DOSES FOR PAIN; Start 02/21/19 at 12:30; Stop 02/22/19 at 12:29; Status DC Fentanyl Citrate (Fentanyl 2ml Vial) 50 mcg PRN Q5MIN PRN IV X 2 DOSES FOR PAIN; Start 02/21/19 at 12:30; Stop 02/22/19 at 12:29; Status DC Ringer's Solution 1,000 ml @ 125 mls/hr Q8H IV Last administered on 02/21/19at 12:27; Start 02/21/19 at 12:27; Stop 02/22/19 at 00:26; Status DC Lidocaine HCl (Xylocaine-Mpf 1% 2ml Vial) 2 ml 1X PRN PRN ID IV START; Start 02/21/19 at 12:30; Stop 02/22/19 at 12:29; Status DC Pantoprazole Sodium 80 mg/ Sodium Chloride 100 ml @ 10 mls/hr Q10H IV Last administered on 02/24/19at 05:42; Start 02/21/19 at 15:30 Metoprolol Tartrate (Lopressor Vial) 5 mg Q6HRS IVP Last administered on 02/24/19at 12:12; Start 02/22/19 at 12:00 Lidocaine/Sodium Bicarbonate (Buffered Lidocaine 1%) 3 ml STK-MED ONCE .ROUTE ; Start 02/22/19 at 12:08; Stop 02/22/19 at 12:09; Status DC Midazolam HCl (Versed) 2 mg STK-MED ONCE .ROUTE ; Start 02/22/19 at 12:21; Stop 02/22/19 at 12:22; Status DC Fentanyl Citrate (Fentanyl 2ml Vial) 100 mcg STK-MED ONCE .ROUTE ; Start 02/22/19 at 12:21; Stop 02/22/19 at 12:22; Status DC Lidocaine/Sodium Bicarbonate (Buffered Lidocaine 1%) 3 ml 1X ONCE IJ Last administered on 02/22/19at 13:00; Start 02/22/19 at 12:30; Stop 02/22/19 at 12:31; Status DC Midazolam HCl (Versed) 2 mg 1X ONCE IV Last administered on 02/22/19at 13:01; Start 02/22/19 at 12:30; Stop 02/22/19 at 12:31; Status DC Fentanyl Citrate (Fentanyl 2ml Vial) 100 mcg 1X ONCE IV Last administered on 02/22/19at 13:02; Start 02/22/19 at 12:30; Stop 02/22/19 at 12:31; Status DC Furosemide (Lasix) 40 mg 1X ONCE IVP Last administered on 02/22/19at 16:20; Start 02/22/19 at 16:15; Stop 02/22/19 at 16:16; Status DC Hydralazine HCl (Apresoline Inj) 10 mg PRN Q4HRS PRN IVP ELEVATED BP, SEE COMMENTS; Start 02/22/19 at 16:15 Digoxin (Lanoxin) 250 mcg PRN DAILY PRN IV SEE COMMENTS; Start 02/22/19 at 16:15 Albumin Human 100 ml @ 100 mls/hr 1X ONCE IV Last administered on 02/22/19at 16:20; Start 02/22/19 at 16:15; Stop 02/22/19 at 17:14; Status DC Aspirin (Aspirin) 150 mg DAILY OR ; Start 02/22/19 at 17:00 Info (Tpn Per Pharmacy) 1 each PRN DAILY PRN MC SEE COMMENTS Last administered on 02/24/19at 12:48; Start 02/23/19 at 11:45 Sodium Chloride 90 meq/Potassium Chloride 70 meq/ Potassium Phosphate 13.6 mmol/Magnesium Sulfate 15 meq/ Calcium Gluconate 10 meq/ Multivitamins 10 ml/Chromium/ Copper/Manganese/ Seleni/Zn 1 ml/ Total Parenteral Nutrition/Amino Acids/Dextrose/ Fat Emulsion Intravenous 1,512 ml @ 63 mls/hr TPN CONT IV Last administered on 02/23/19at 21:28; Start 02/23/19 at 22:00; Stop 02/24/19 at 21:59 Potassium Chloride/Water 50 ml @ 50 mls/hr Q1H IV Last administered on 02/23/19at 15:31; Start 02/23/19 at 15:00; Stop 02/23/19 at 16:59; Status DC Morphine Sulfate (Morphine Sulfate) 2 mg PRN Q2HR PRN IV PAIN; Start 02/24/19 at 12:00 Sodium Chloride 90 meq/Potassium Chloride 70 meq/ Potassium Phosphate 25 mmol/ Magnesium Sulfate 15 meq/Calcium Gluconate 10 meq/ Multivitamins 10 ml/Chromium/ Copper/Manganese/ Seleni/Zn 1 ml/ Total Parenteral Nutrition/Amino Acids/Dextrose/ Fat Emulsion Intravenous 1,512 ml @ 63 mls/hr TPN CONT IV ; Start 02/24/19 at 22:00; Stop 02/25/19 at 21:59 Active Scripts Active Atorvastatin Calcium 40 Mg Tablet 40 Mg PO QHS 30 Days Reported Flomax (Tamsulosin Hcl) 0.4 Mg Cap.er.24h 0.4 Mg PO DAILY Clopidogrel (Clopidogrel Bisulfate) 75 Mg Tablet 75 Mg PO DAILY Aspirin 81 Mg Tab.chew 1 Tab PO DAILY Vitamin B-12 (Cyanocobalamin (Vitamin B-12)) 1,000 Mcg Tablet 1 Tab PO DAILY Metoprolol Succinate ( Xl ) (Metoprolol Succinate) 25 Mg Tab.er.24h 1 Tab PO DAILY Losartan Potassium 100 Mg Tablet 100 Mg PO DAILY Multivitamins (Multivitamin) 1 Each Tablet 1 Tab PO DAILY Vitamin D (Cholecalciferol (Vitamin D3)) 2,000 Unit Capsule 1 Cap PO DAILY Vitals/I & O Vital Sign - Last 24 Hours 02/23/19 02/23/19 02/23/19 02/23/19 14:44 17:17 19:30 19:46 Temp 97.6 97.8 97.6 97.8 Pulse 95 95 104 Resp 26 21 B/P (MAP) 128/68 (88) 128/68 150/80 (103) Pulse Ox 95 97 O2 Delivery Nasal Cannula Nasal Cannula Nasal Cannula O2 Flow Rate 2.0 2.0 2.0 02/23/19 02/23/19 02/24/19 02/24/19 23:00 23:35 03:20 05:42 Temp 98.4 97.9 98.4 97.9 Pulse 105 113 111 111 Resp 24 22 B/P (MAP) 143/81 (101) 143/81 161/78 (105) 161/78 Pulse Ox 94 91 O2 Delivery Nasal Cannula Room Air O2 Flow Rate 2.0 02/24/19 02/24/19 02/24/19 02/24/19 07:00 08:00 11:00 12:12 Temp 97.6 97.4 97.6 97.4 Pulse 69 116 109 Resp 16 18 B/P (MAP) 138/70 (92) 154/78 (103) 154/78 Pulse Ox 90 93 O2 Delivery Nasal Cannula Nasal Cannula Nasal Cannula O2 Flow Rate 2.0 2.0 2.0 Intake and Output 02/23/19 02/23/19 02/24/19 14:59 22:59 06:59 Intake Total 560 ml Output Total 520 ml 450 ml Balance 40 ml -450 ml Nutrition Consultation Dietary Evaluation: Recommendations by RD: Increase Calorie Intake, Protein supplementation Comments: Continue w/GI soft diet at this time, honor food preferences, and provide snacks as requested REC Ensure w/lunch (only strawberry or vanilla) If PO intake does not improve >50% meals within next few days, recommend conisderation of PPN to supplement poor PO intake Expected Outcomes/Goals: PO intake to meet >75% est needs - not met, goal ongoing Malnutrition Findings: Food and Nutrition Intake (Sev: <50% est energy req 5days Weight Status: Appropriate MYESHA TORRES MD February 24, 2019 14:39
[2019-02-24 15:00] VITALS: BP 134/76
[2019-02-24] MEDS ORDERED: POLYVINYL ALCOHOL 1.4% OPHTH SOLUTION 15ML BOTTLE. OU PRN (18:45)
[2019-02-24 19:00] VITALS: BP 153/79
[2019-02-24] MEDS: ATORVASTATIN CALCIUM 40 MG TABLET. PO SCH (21:00)
[2019-02-24] MEDS ORDERED: DEXTROSE 70% IV SCH ×10 (22:00)
[2019-02-24] MEDS ORDERED: TOTAL PARENTERAL NUTRITION IV SCH ×10 (22:00)
[2019-02-24] MEDS ORDERED: [UNRECOGNIZED DRUG - OTHER] IV SCH ×10 (22:00)
[2019-02-24] MEDS ORDERED: AMINO ACID IV SCH ×10 (22:00)
[2019-02-24 22:52] VITALS: BP 151/81
[2019-02-25] MEDS: PIPERACILLIN/TAZOBACTAM 3.375 GM in IV NORMAL SALINE 50ML 50 ML IV SCH ×5 (00:50→23:27)
[2019-02-25] MEDS: METOPROLOL TARTRATE 5 MG/5 ML VIAL. IVP SCH ×5 (00:51→23:27)
[2019-02-25] MEDS: PANTOPRAZOLE SODIUM IV DRIP 80 MG in IV NORMAL SALINE 100ML 100 ML IV SCH ×3 (01:36→16:54)
[2019-02-25 02:49] VITALS: BP 147/69
[2019-02-25 07:00] VITALS: BP 162/80
[2019-02-25 07:08] LABS: CALCIUM 7.7 mg/dL (8.5-10.1); CREATININE 1.2 mg/dL (0.7-1.3); GFR 57.8; PHOSPHORUS 2.6 mg/dL (2.6-4.7); POTASSIUM 3.8 mmol/L (3.5-5.1)
[2019-02-25] MEDS: DOCUSATE SODIUM 100 MG CAPSULE. PO SCH ×2 (08:11→20:17)
--- NOTE | 2019-02-25 08:33 | PDOC ---
Infectious Disease Note Subjective: Subjective Wants to go home, says he can do better there Comfortable, denies pain/N/V had 2 loose bm this am TPN No fevers/chills some sob and cough ROS: ROS Negative except for above. Vital Signs: Vital Signs Vital Signs Date Time Temp Pulse Resp B/P (MAP) Pulse Ox O2 Delivery O2 Flow Rate FiO2 02/25/19 07:00 98.1 108 18 162/80 (107) 92 Nasal Cannula 2.0 98.1 Physical Exam: PHYSICAL EXAM GENERAL: Sitting in the chair, relaxed appearance HEENT: Oral cavity clear, dry NECK: Supple, no JVP, no lymphadenopathy. LUNGS: Clear. HEART: S1, S2 regular. ABDOMEN: Obese, soft,NT, NICOLAS x [address], purulent drainage. Small incision approx sutures, clean EXTREMITIES: Bilat LE trace edema, no cyanosis SKIN: No rash NEUROLOGIC: Alert, responds appropriately RUE-PICC (02/22) clean Medications: Inpatient Meds: Current Medications Medications (Trade) Dose Ordered Sig/Zane Start Time Stop Time Status Last Admin Dose Admin Acetaminophen (Tylenol Supp) 650 mg PRN Q6HRS PRN 02/19/19 02:15 02/19/19 02:18 650 MG Acetaminophen (Tylenol) 650 mg PRN Q6HRS PRN 02/19/19 01:45 02/22/19 21:39 650 MG Acetaminophen/ Hydrocodone Bitart (Lortab 5/325) 2 tab PRN Q4HRS PRN 02/14/19 14:00 02/17/19 03:22 2 TAB Albumin Human 100 ml @ 100 mls/hr 1X ONCE 02/22/19 16:15 02/22/19 17:14 DC 02/22/19 16:20 100 MLS/HR Artificial Tears (Artificial Tears) 1 drop PRN BID PRN 02/24/19 18:45 Aspirin (Aspirin) 150 mg DAILY 02/22/19 17:00 Aspirin (Ecotrin) 81 mg [id number] 02/18/19 16:15 02/22/19 16:16 DC 02/21/19 08:34 81 MG Atorvastatin Calcium (Lipitor) 40 mg QHS 02/14/19 21:00 02/23/19 20:43 40 MG Bacitracin (Bacitracin) 50,000 unit STK-MED ONCE 02/14/19 15:14 02/14/19 16:15 DC 02/14/19 16:49 50,000 UNIT Bupivacaine HCl/ Epinephrine Bitart (Sensorcain-Mpf Epi 0.5%-1:644653) 30 ml STK-MED ONCE 02/14/19 15:13 02/14/19 16:14 DC Calcium Carbonate/ Glycine (Tums) 500 mg PRN AFTMEALHC PRN 02/17/19 15:00 02/18/19 22:25 500 MG Cefazolin Sodium/ Dextrose (Ancef 2gm Premix) 2 gm STK-MED ONCE 02/14/19 11:00 02/15/19 13:02 DC Cellulose (Surgicel Hemostat 4x8) 1 each STK-MED ONCE 02/14/19 15:50 02/20/19 08:42 DC Clopidogrel Bisulfate (Plavix) 75 mg DAILY 02/17/19 14:00 02/21/19 08:33 75 MG Cyanocobalamin (Vitamin B-12) 1,000 mcg DAILY 02/15/19 09:00 02/19/19 09:32 1,000 MCG Dexamethasone Sodium Phosphate (Decadron) 4 mg STK-MED ONCE 02/14/19 16:06 02/20/19 08:42 DC Dextrose (Dextrose 50%-Water Syringe) 12.5 gm PRN Q15MIN PRN 02/14/19 14:00 Digoxin (Lanoxin) 250 mcg PRN DAILY PRN 02/22/19 16:15 Diltiazem HCl (Cardizem 24hr Cd) 240 mg DAILY 02/18/19 12:30 02/21/19 08:34 240 MG Diltiazem HCl 125 mg/Dextrose 125 ml @ 5 mls/hr CONT PRN 02/18/19 04:15 02/18/19 16:09 DC 02/18/19 04:27 5 MLS/HR Diphenhydramine HCl (Benadryl) 25 mg PRN Q6HRS PRN 02/14/19 14:00 02/23/19 20:43 25 MG Docusate Sodium (Colace) 100 mg BID 02/14/19 21:00 02/23/19 20:43 100 MG Famotidine (Pepcid Vial) 20 mg STK-MED ONCE 02/14/19 16:05 02/20/19 08:42 DC Fentanyl Citrate (Fentanyl 2ml Vial) 100 mcg 1X ONCE 02/22/19 12:30 02/22/19 12:31 DC 02/22/19 13:02 50 MCG Furosemide (Lasix) 40 mg 1X ONCE 02/22/19 16:15 02/22/19 16:16 DC 02/22/19 16:20 40 MG Glucagon (Glucagen) 1 mg STK-MED ONCE 02/14/19 10:01 02/14/19 11:02 DC Glycopyrrolate (Robinul) 1 mg STK-MED ONCE 02/14/19 17:26 02/20/19 08:42 DC Hydralazine HCl (Apresoline Inj) 10 mg PRN Q4HRS PRN 02/22/19 16:15 Hydromorphone HCl (Dilaudid) 1 mg PRN Q4HRS PRN 02/14/19 14:00 02/24/19 11:48 DC 02/23/19 09:46 1 MG Info (Tpn Per Pharmacy) 1 each PRN DAILY PRN 02/23/19 11:45 02/24/19 12:48 1 EACH Iohexol (Omnipaque 300 Mg/ml) 100 ml STK-MED ONCE 02/14/19 10:01 02/14/19 11:02 DC 02/14/19 11:48 25 ML Lactobacillus Rhamnosus (Culturelle) 1 cap BID 02/18/19 21:00 02/23/19 20:43 1 CAP Lidocaine HCl (Lidocaine Pf 2% Vial) 5 ml STK-MED ONCE 02/14/19 16:05 02/20/19 08:42 DC Lidocaine HCl (Xylocaine-Mpf 1% 2ml Vial) 2 ml 1X PRN PRN 02/21/19 12:30 02/22/19 12:29 DC Lidocaine/Sodium Bicarbonate (Buffered Lidocaine 1%) 3 ml 1X ONCE 02/22/19 12:30 02/22/19 12:31 DC 02/22/19 13:00 6 ML Linezolid/Dextrose 300 ml @ 300 mls/hr Q12HR 02/18/19 09:00 02/24/19 22:45 300 MLS/HR Losartan Potassium (Cozaar) 100 mg DAILY 02/15/19 09:00 02/21/19 08:34 100 MG Metoprolol Succinate (Toprol Xl) 25 mg DAILY 02/15/19 09:00 02/20/19 12:11 DC 02/20/19 07:53 25 MG Metoprolol Tartrate (Lopressor Vial) 5 mg Q6HRS 02/22/19 12:00 02/25/19 05:54 5 MG Metoprolol Tartrate (Lopressor) 25 mg BID 02/20/19 12:15 02/22/19 10:28 DC 02/21/19 20:44 25 MG Midazolam HCl (Versed) 2 mg 1X ONCE 02/22/19 12:30 02/22/19 12:31 DC 02/22/19 13:01 1 MG Morphine Sulfate (Morphine Sulfate) 2 mg PRN Q2HR PRN 02/24/19 12:00 Multivitamins (Thera M Plus) 1 tab DAILY 02/17/19 14:00 02/19/19 09:31 1 TAB Neostigmine Methylsulfate (Neostigmine Methylsulfate) 5 mg STK-MED ONCE 02/14/19 17:26 02/20/19 08:42 DC Norepinephrine Bitartrate 250 ml @ 1.875 mls/ hr CONT PRN 02/19/19 07:30 02/23/19 11:38 DC Ondansetron HCl (Zofran) 4 mg PRN Q6HRS PRN 02/20/19 10:54 Pantoprazole Sodium (Protonix) 40 mg BIDAC 02/19/19 16:30 02/21/19 15:18 DC 02/21/19 08:34 40 MG Pantoprazole Sodium 80 mg/ Sodium Chloride 100 ml @ 10 mls/hr Q10H 02/21/19 15:30 02/25/19 01:36 10 MLS/HR Piperacillin Sod/ Tazobactam Sod 3.375 gm/Sodium Chloride 50 ml @ 100 mls/hr Q6HRS 02/17/19 12:00 02/25/19 05:51 100 MLS/HR Potassium Chloride/Sodium Chloride 1,000 ml @ 80 mls/hr [id number] 02/14/19 15:00 02/17/19 12:54 DC 02/17/19 06:02 80 MLS/HR Potassium Chloride/Water 50 ml @ 50 mls/hr Q1H 02/23/19 15:00 02/23/19 16:59 DC 02/23/19 15:31 50 MLS/HR Prochlorperazine Edisylate (Compazine) 5 mg PACU PRN PRN 02/14/19 07:00 02/14/19 20:00 DC Propofol 20 ml @ As Directed STK-MED ONCE 02/14/19 16:05 02/20/19 08:42 DC Ringer's Solution 1,000 ml @ 125 mls/hr Q8H 02/21/19 12:27 02/22/19 00:26 DC 02/21/19 12:27 125 MLS/HR Rocuronium [place] (Zemuron) 100 mg STK-MED ONCE 02/14/19 16:05 02/20/19 08:42 DC Sevoflurane (Ultane) 60 ml STK-MED ONCE 02/14/19 08:17 02/14/19 08:18 DC Sodium Chloride (Normal Saline Flush) 3 ml QSHIFT PRN 02/14/19 14:00 Sodium Chloride (SODIUM CHLORIDE 20ml) 20 ml STK-MED ONCE 02/14/19 15:15 02/14/19 16:15 DC Sodium Chloride 90 meq/Potassium Chloride 70 meq/ Potassium Phosphate 13.6 mmol/Magnesium Sulfate 15 meq/ Calcium Gluconate 10 meq/ Multivitamins 10 ml/Chromium/ Copper/Manganese/ Seleni/Zn 1 ml/ Total Parenteral Nutrition/Amino Acids/Dextrose/ Fat Emulsion Intravenous 1,512 ml @ 63 mls/hr TPN CONT 02/23/19 22:00 02/24/19 21:59 DC 02/23/19 21:28 63 MLS/HR Sodium Chloride 90 meq/Potassium Chloride 70 meq/ Potassium Phosphate 25 mmol/ Magnesium Sulfate 15 meq/Calcium Gluconate 10 meq/ Multivitamins 10 ml/Chromium/ Copper/Manganese/ Seleni/Zn 1 ml/ Total Parenteral Nutrition/Amino Acids/Dextrose/ Fat Emulsion Intravenous 1,512 ml @ 63 mls/hr TPN CONT 02/24/19 22:00 02/25/19 21:59 02/24/19 22:47 63 MLS/HR Tamsulosin HCl (Flomax) 0.4 mg DAILY 02/15/19 09:00 02/21/19 08:34 0.4 MG Vitamin D (Vitamin D3) 2,000 unit DAILY 02/17/19 14:00 02/19/19 09:31 2,000 UNIT Labs: Lab Laboratory Tests Test 02/25/19 06:30 Sodium Level 139 mmol/L (136-145) Potassium Level 3.8 mmol/L (3.5-5.1) Chloride Level 107 mmol/L (98-107) Carbon Dioxide Level 24 mmol/L (21-32) Anion Gap 8 (6-14) Blood Urea Nitrogen 21 mg/dL (8-26) Creatinine 1.2 mg/dL (0.7-1.3) Estimated GFR (Cockcroft-Gault) 57.8 Glucose Level 128 mg/dL (70-99) Calcium Level 7.7 mg/dL (8.5-10.1) Phosphorus Level 2.6 mg/dL (2.6-4.7) Magnesium Level 2.0 mg/dL (1.8-2.4) Micro RUN DATE: 02/24/19 PAGE 1 RUN TIME: 180 [facility] [address] [place] [address] Kash Kamara M.D., Pre Owned Sales Consultant -- PATIENT: RUDY POLK ACCT: [id number] LOC: [address] [place] [address] U: [id number] AGE/SX: 83/M ROOM: 252 RE02/14/[address]: KEESHA POLLACK MD : [id number] BED: 1 DIS: STATUS: ADM IN TLOC: SPEC #: [id number] LIZETTE: 02/22/19 STATUS: RES REQ #: [id number] RECD: 02/22/[address] [facility] [address]: GUSTAVO ANDREWS MD SOURCE: ABDOMEN ENTR: 02/22/[address]: BRI WARD III DO [facility]: ABSCESS POWELL,LORENA OMER,LINDSEY POLLACK,KEESHA BERNARD,GRUPO SIFUENTES,MYESHA NARANJO,UMA MCCRAY ORDERED: ANAER/AEROB/GS Procedure Result ANAEROBIC-AEROBIC CULTURE PENDING ANAEROBIC RES 1 PENDING AEROBIC CULT Preliminary Preliminary report AEROBIC RES 1 Preliminary Gram negative rods 4+ GRAM STAIN Final Final report GRAM STAIN RES 1 Final Comment Many white blood cells. GRAM STAIN RES 2 Final Comment Moderate gram negative rods. Performed at: - [address], [place], [place] [id number] [employer]: SHAWN Shrestha MD, Phone: [phone] Objective: Assessment: Fever, better Leukocytosis s/p CT-guided drainage, gallbladder fossa fluid collection, 02/22. GNR gram stain; s/p lap cholecystectomy, followed by lap exploration on 02/14 Hypertension. Hyperlipidemia. Atrial fibrillation Plan: Plan of Care cont Zyvox and Zosyn Probiotics drain management per Surgery PICC maintenance care PT/OT Monitor labs D/W NED Munoz MD February 25, 2019 08:33
[2019-02-25] MEDS: ASPIRIN RECTAL 300 MG SUPP. PR SCH ×3 (09:00→19:17)
[2019-02-25] MEDS: LACTOBACILLUS RHAMNOSUS GG 1 CAPSULE. PO SCH ×2 (09:54→20:17)
[2019-02-25] MEDS: CYANOCOBALAMIN (VITAMIN B-12) 1,000 MCG TABLET. PO SCH (09:54)
[2019-02-25] MEDS: TAMSULOSIN 0.4 MG CAP.ER.24H. PO SCH (09:54)
[2019-02-25] MEDS: MULTIVITAMIN with MINERAL TABLET. PO SCH (09:54)
[2019-02-25] MEDS: CHOLECALCIFEROL (VITAMIN D3) 1,000 UNIT TABLET PO SCH (09:54)
[2019-02-25] MEDS: CLOPIDOGREL BISULFATE 75 MG TABLET PO SCH (09:54)
[2019-02-25] MEDS: LOSARTAN POTASSIUM 50 MG TABLET. PO SCH (09:55)
--- NOTE | 2019-02-25 09:57 | PDOC ---
PROGRESS NOTES Chief Complaint Chief Complaint Status post lap cholecystectomy, 02/14/19 Postop status cyst/fulfills tachycardia tachypnea [place] I VMN-creatinine 1.5 today from normal Sepsis - with fever and Leukocytosis, started on empiric Zosyn, zyvox History CVA, hypertension, dyslipidemia and GERD on medication Atrial fibrillation with RVR - rate controlled History of Present Illness History of Present Illness Patient seen and examined Patient was well appearing in NAD with no new complaints Surgical sight examined, clean with no inflammation Vitals Vitals Vital Signs Date Time Temp Pulse Resp B/P (MAP) Pulse Ox O2 Delivery O2 Flow Rate FiO2 02/25/19 07:00 98.1 108 18 162/80 (107) 92 Nasal Cannula 2.0 98.1 Physical Exam Physical Exam GENERAL: Sitting in the chair, relaxed appearance HEENT: Oral cavity clear, dry NECK: Supple, no JVP, no lymphadenopathy. LUNGS: Clear. HEART: S1, S2 regular. ABDOMEN: Obese, soft,NT, NICOLAS x [address], purulent drainage. Small incision approx sutures, clean EXTREMITIES: Bilat LE trace edema, no cyanosis SKIN: No rash NEUROLOGIC: Alert, responds appropriately RUE-PICC (02/22) clean General: Alert, Oriented X3, Cooperative, No acute distress Heart: Other (IRRR; tele AFIB with controlled rate) Lungs: Clear Abdomen: Soft (drains with serosang output) Extremities: Other (trace bialteral LE edema ) Skin: No rashes Labs LABS Laboratory Tests Test 02/25/19 06:30 Sodium Level 139 mmol/L (136-145) Potassium Level 3.8 mmol/L (3.5-5.1) Chloride Level 107 mmol/L (98-107) Carbon Dioxide Level 24 mmol/L (21-32) Anion Gap 8 (6-14) Blood Urea Nitrogen 21 mg/dL (8-26) Creatinine 1.2 mg/dL (0.7-1.3) Estimated GFR (Cockcroft-Gault) 57.8 Glucose Level 128 mg/dL (70-99) Calcium Level 7.7 mg/dL (8.5-10.1) Phosphorus Level 2.6 mg/dL (2.6-4.7) Magnesium Level 2.0 mg/dL (1.8-2.4) Review of Systems Review of Systems Patient denies LANE Patient denies leg swelling Assessment and Plan Assessmemt and Plan Assessment: Status post lap cholecystectomy, 02/14/19 Postop status cyst/fulfills tachycardia tachypnea [place] I VMN-creatinine 1.5 today from normal Sepsis - with fever and Leukocytosis, started on empiric Zosyn, zyvox History CVA, hypertension, dyslipidemia and GERD on medication Atrial fibrillation with RVR - rate controlled Plan: Continue Antibiotics Restoril 15 mg prn for insomnia TPN Wound Care Labs PT/OT DVT ppx Comment Review of Relevant I have reviewed the following items timoteo (where applicable) has been applied. Labs Laboratory Tests Test 02/23/19 13:25 02/24/19 05:30 02/25/19 06:30 Sodium Level 141 mmol/L (136-145) 139 mmol/L (136-145) 139 mmol/L (136-145) Potassium Level 3.3 mmol/L (3.5-5.1) 3.6 mmol/L (3.5-5.1) 3.8 mmol/L (3.5-5.1) Chloride Level 107 mmol/L (98-107) 108 mmol/L (98-107) 107 mmol/L (98-107) Carbon Dioxide Level 23 mmol/L (21-32) 23 mmol/L (21-32) 24 mmol/L (21-32) Anion Gap 11 (6-14) 8 (6-14) 8 (6-14) Blood Urea Nitrogen 26 mg/dL (8-26) 24 mg/dL (8-26) 21 mg/dL (8-26) Creatinine 1.4 mg/dL (0.7-1.3) 1.2 mg/dL (0.7-1.3) 1.2 mg/dL (0.7-1.3) Estimated GFR (Cockcroft-Gault) 48.4 57.8 57.8 Glucose Level 119 mg/dL (70-99) 165 mg/dL (70-99) 128 mg/dL (70-99) Calcium Level 8.3 mg/dL (8.5-10.1) 8.0 mg/dL (8.5-10.1) 7.7 mg/dL (8.5-10.1) Phosphorus Level 3.7 mg/dL (2.6-4.7) 2.9 mg/dL (2.6-4.7) 2.6 mg/dL (2.6-4.7) Magnesium Level 1.9 mg/dL (1.8-2.4) 2.0 mg/dL (1.8-2.4) 2.0 mg/dL (1.8-2.4) White Blood Count 17.6 x10^3/uL (4.0-11.0) Red Blood Count 2.60 x10^6/uL (4.30-5.70) Hemoglobin 7.9 g/dL (13.0-17.5) Hematocrit 24.1 % (39.0-53.0) Mean Corpuscular Volume 93 fL (79-100) Mean Corpuscular Hemoglobin 30 pg (25-35) Mean Corpuscular Hemoglobin Concent 33 g/dL (31-37) Red Cell Distribution Width 15.6 % (11.5-14.5) Platelet Count 430 x10^3/uL (140-400) Neutrophils (%) (Auto) 82 % (31-73) Lymphocytes (%) (Auto) 8 % (24-48) Monocytes (%) (Auto) 7 % (0-9) Eosinophils (%) (Auto) 3 % (0-3) Basophils (%) (Auto) 1 % (0-3) Neutrophils # (Auto) 14.4 x10^3uL (1.8-7.7) Lymphocytes # (Auto) 1.4 x10^3/uL (1.0-4.8) Monocytes # (Auto) 1.2 x10^3/uL (0.0-1.1) Eosinophils # (Auto) 0.5 x10^3/uL (0.0-0.7) Basophils # (Auto) 0.1 x10^3/uL (0.0-0.2) Laboratory Tests Test 02/25/19 06:30 Sodium Level 139 mmol/L (136-145) Potassium Level 3.8 mmol/L (3.5-5.1) Chloride Level 107 mmol/L (98-107) Carbon Dioxide Level 24 mmol/L (21-32) Anion Gap 8 (6-14) Blood Urea Nitrogen 21 mg/dL (8-26) Creatinine 1.2 mg/dL (0.7-1.3) Estimated GFR (Cockcroft-Gault) 57.8 Glucose Level 128 mg/dL (70-99) Calcium Level 7.7 mg/dL (8.5-10.1) Phosphorus Level 2.6 mg/dL (2.6-4.7) Magnesium Level 2.0 mg/dL (1.8-2.4) Microbiology 02/17/19 Blood Culture - Final, Complete NO GROWTH AFTER 5 DAYS 02/17/19 Urine Culture - Final, Complete 02/17/19 Urine Culture Result 1 (PETERSON) - Final, Complete 02/22/19 Anaerobic/Aerobic Culture, Resulted Pending 02/22/19 Anaerobic Culture Result 1 (PETERSON), Resulted Pending 02/22/19 Aerobic Culture - Preliminary, Resulted 02/22/19 Aerobic Culture Result 1 (PETERSON) - Preliminary, Resulted 02/22/19 Gram Stain - Final, Resulted 02/22/19 Gram Stain Result 1 (PETERSON) - Final, Resulted 02/22/19 Gram Stain Result 2 (PETERSON) - Final, Resulted Medications Current Medications Ondansetron HCl (Zofran) 4 mg PRN Q6HRS PRN IV NAUSEA/VOMITING; Start 02/14/19 at 07:00; Stop 02/14/19 at 20:00; Status DC Fentanyl Citrate (Fentanyl 2ml Vial) 25 mcg PRN Q5MIN PRN IV MILD PAIN Last administered on 02/14/19at 14:28; Start 02/14/19 at 07:00; Stop 02/14/19 at 20:00; Status DC Fentanyl Citrate (Fentanyl 2ml Vial) 50 mcg PRN Q5MIN PRN IV MODERATE TO SEVERE PAIN; Start 02/14/19 at 07:00; Stop 02/14/19 at 20:00; Status DC Morphine Sulfate (Morphine Sulfate) 1 mg PRN Q10MIN PRN IV SEVERE PAIN; Start 02/14/19 at 07:00; Stop 02/14/19 at 20:00; Status DC Ringer's Solution 1,000 ml @ 30 mls/hr Q24H IV Last administered on 02/14/19at 07:52; Start 02/14/19 at 07:00; Stop 02/14/19 at 18:59; Status DC Lidocaine HCl (Xylocaine-Mpf 1% 2ml Vial) 2 ml PRN 1X PRN ID PRIOR TO IV START; Start 02/14/19 at 07:00; Stop 02/14/19 at 20:00; Status DC Hydromorphone HCl (Dilaudid) 0.5 mg PRN Q10MIN PRN IV SEV PAIN, Second choice; Start 02/14/19 at 07:00; Stop 02/14/19 at 20:00; Status DC Prochlorperazine Edisylate (Compazine) 5 mg PACU PRN PRN IV NAUSEA, MRX1; Start 02/14/19 at 07:00; Stop 02/14/19 at 20:00; Status DC Cefazolin Sodium/ Dextrose 50 ml @ 100 mls/hr 1X PREOP PRN IV PRIOR TO PROCEDURE Last administered on 02/14/19at 11:21; Start 02/14/19 at 06:00; Stop 02/14/19 at 18:00; Status DC Propofol 20 ml @ As Directed STK-MED ONCE IV ; Start 02/14/19 at 08:17; Stop 02/14/19 at 08:18; Status DC Lidocaine HCl (Lidocaine Pf 2% Vial) 5 ml STK-MED ONCE .ROUTE ; Start 02/14/19 at 08:17; Stop 02/14/19 at 08:18; Status DC Ondansetron HCl (Zofran) 4 mg STK-MED ONCE .ROUTE ; Start 02/14/19 at 08:17; Stop 02/14/19 at 08:18; Status DC Dexamethasone Sodium Phosphate (Decadron) 4 mg STK-MED ONCE .ROUTE ; Start 02/14/19 at 08:17; Stop 02/14/19 at 08:18; Status DC Sevoflurane (Ultane) 60 ml STK-MED ONCE IH ; Start 02/14/19 at 08:17; Stop 02/14/19 at 08:18; Status DC Rocuronium [place] (Zemuron) 50 mg STK-MED ONCE .ROUTE ; Start 02/14/19 at 0 8:17; Stop 02/14/19 at 08:18; Status DC Fentanyl Citrate (Fentanyl 2ml Vial) 100 mcg STK-MED ONCE .ROUTE ; Start 02/14/19 at 08:39; Stop 02/14/19 at 08:40; Status DC Bupivacaine HCl/ Epinephrine Bitart (Sensorcain-Mpf Epi 0.5%-[id number]) 30 ml STK-MED ONCE .ROUTE Last administered on 02/14/19at 11:48; Start 02/14/19 at 10:01; Stop 02/14/19 at 11:02; Status DC Glucagon (Glucagen) 1 mg STK-MED ONCE .ROUTE ; Start 02/14/19 at 10:01; Stop 02/14/19 at 11:02; Status DC Iohexol (Omnipaque 300 Mg/ml) 100 ml STK-MED ONCE .ROUTE Last administered on 02/14/19at 11:48; Start 02/14/19 at 10:01; Stop 02/14/19 at 11:02; Status DC Cellulose (Surgicel Hemostat 4x8) 1 each STK-MED ONCE .ROUTE Last administered on 02/14/19at 13:12; Start 02/14/19 at 10:01; Stop 02/14/19 at 11:02; Status DC Cellulose (Surgicel Hemostat 4x8) 1 each STK-MED ONCE .ROUTE Last administered on 02/14/19at 13:31; Start 02/14/19 at 11:19; Stop 02/14/19 at 12:19; Status DC Famotidine (Pepcid Vial) 20 mg STK-MED ONCE .ROUTE ; Start 02/14/19 at 13:14; Stop 02/14/19 at 13:15; Status DC Diphenhydramine HCl (Benadryl) 50 mg STK-MED ONCE .ROUTE ; Start 02/14/19 at 13:14; Stop 02/14/19 at 13:15; Status DC Rocuronium [place] (Zemuron) 50 mg STK-MED ONCE .ROUTE ; Start 02/14/19 at 13:14; Stop 02/14/19 at 13:15; Status DC Fentanyl Citrate (Fentanyl 2ml Vial) 100 mcg STK-MED ONCE .ROUTE ; Start 02/14/19 at 13:15; Stop 02/14/19 at 13:16; Status DC Cellulose (Surgicel Hemostat 4x8) 1 each STK-MED ONCE .ROUTE ; Start 02/14/19 at 12:33; Stop 02/14/19 at 13:33; Status DC Diphenhydramine HCl (Benadryl) 25 mg PRN Q6HRS PRN PO ITCHING Last administered on 02/23/19 20:43; Start 02/14/19 at 14:00 Sodium Chloride (Normal Saline Flush) 3 ml QSHIFT PRN IV AFTER MEDS AND BLOOD DRAWS; Start 02/14/19 at 14:00 Potassium Chloride/Sodium Chloride 1,000 ml @ 80 mls/hr [id number] IV Last administered on 02/17/19 06:02; Start 02/14/19 at 15:00; Stop 02/17/19 at 12:54; Status DC Dextrose (Dextrose 50%-Water Syringe) 12.5 gm PRN Q15MIN PRN IV SEE COMMENTS; Start 02/14/19 at 14:00 Acetaminophen/ Hydrocodone Bitart (Lortab 5/325) 1 tab PRN Q4HRS PRN PO MILD PAIN Last administered on 02/17/19 08:35; Start 02/14/19 at 14:00 Acetaminophen/ Hydrocodone Bitart (Lortab 5/325) 2 tab PRN Q4HRS PRN PO MODERATE PAIN, SEVERE PAIN Last administered on 02/17/19 03:22; Start 02/14/19 at 14:00 Hydromorphone HCl (Dilaudid) 1 mg PRN Q4HRS PRN IV PAIN Last administered on 02/23/19 09:46; Start 02/14/19 at 14:00; Stop 02/24/19 at 11:48; Status DC Docusate Sodium (Colace) 100 mg BID PO Last administered on 02/23/19 20:43; Start 02/14/19 at 21:00 Ondansetron HCl (Zofran) 4 mg PRN Q6HRS PRN IV NAUESA, 1ST CHOICE Last admin istered on 02/19/19 04:09; Start 02/14/19 at 14:00; Stop 02/19/19 at 09:05; Status DC Atorvastatin Calcium (Lipitor) 40 mg QHS PO Last administered on 02/23/19 20:43; Start 02/14/19 at 21:00 Cyanocobalamin (Vitamin B-12) 1,000 mcg DAILY PO Last administered on 02/19/19 09:32; Start 02/15/19 at 09:00 Metoprolol Succinate (Toprol Xl) 25 mg DAILY PO Last administered on 02/20/19at 07:53; Start 02/15/19 at 09:00; Stop 02/20/19 at 12:11; Status DC Tamsulosin HCl (Flomax) 0.4 mg DAILY PO Last administered on 02/21/19at 08:34; Start 02/15/19 at 09:00 Losartan Potassium (Cozaar) 100 mg DAILY PO Last administered on 02/21/19at 08:34; Start 02/15/19 at 09:00 Fentanyl Citrate (Fentanyl 2ml Vial) 100 mcg STK-MED ONCE .ROUTE ; Start 02/14/19 at 14:26; Stop 02/14/19 at 14:27; Status DC Bupivacaine HCl/ Epinephrine Bitart (Sensorcain-Mpf Epi 0.5%-1:[id number]) 30 ml STK-MED ONCE .ROUTE ; Start 02/14/19 at 15:13; Stop 02/14/19 at 16:14; Status DC Bacitracin (Bacitracin) 50,000 unit STK-MED ONCE IRR Last administered on 02/14at 16:49; Start 02/14/19 at 15:14; Stop 02/14/19 at 16:15; Status DC Sodium Chloride (SODIUM CHLORIDE 20ml) 20 ml STK-MED ONCE IJ ; Start 02/14/19 at 15:15; Stop 02/14/19 at 16:15; Status DC Cellulose (Surgicel Hemostat 4x8) 3 each STK-MED ONCE TP Last administered on 02/14/19at 16:49; Start 02/14/19 at 16:49; Stop 02/14/19 at 16:55; Status DC Cellulose (Surgicel Hemostat 4x8) 4 each 1X ONCE TP ; Start 02/14/19 at 17:15; Stop 02/14/19 at 17:16; Status DC Cefazolin Sodium/ Dextrose (Ancef 2gm Premix) 2 gm STK-MED ONCE IV ; Start 02/14/19 at 11:00; Stop 02/15/19 at 13:02; Status DC Piperacillin Sod/ Tazobactam Sod 3.375 gm/Sodium Chloride 50 ml @ 100 mls/hr Q6HRS IV Last administered on 02/25/19at 05:51; Start 02/17/19 at 12:00 Sodium Chloride 1,000 ml @ 125 mls/hr Q8H IV Last administered on 02/22/19 02:43; Start 02/17/19 at 13:00; Stop 02/22/19 at 10:28; Status DC Clopidogrel Bisulfate (Plavix) 75 mg DAILY PO Last administered on 02/21/19 08:33; Start 02/17/19 at 14:00 Vitamin D (Vitamin D3) 2,000 unit DAILY PO Last administered on 02/19/19 09:31; Start 02/17/19 at 14:00 Multivitamins (Thera M Plus) 1 tab DAILY PO Last administered on 02/19/19 09:31; Start 02/17/19 at 14:00 Calcium Carbonate/ Glycine (Tums) 500 mg PRN AFTMEALHC PRN PO INDIGESTION Last administered on 02/18/19 22:25; Start 02/17/19 at 15:00 Acetaminophen (Tylenol) 650 mg PRN Q6HRS PRN PO fever Last administered on 02/17/19at 23:50; Start 02/17/19 at 23:45; Stop 02/21/19 at 08:07; Status DC Sodium Chloride 500 ml @ 500 mls/hr 1X ONCE IV Last administered on 02/17/19at 23:48; Start 02/18/19 at 00:00; Stop 02/18/19 at 00:59; Status DC Diltiazem HCl 125 mg/Dextrose 125 ml @ 5 mls/hr CONT PRN IV SEE I/O RECORD Last administered on 02/18/19at 04:27; Start 02/18/19 at 04:15; Stop 02/18/19 at 16:09; Status DC Linezolid/Dextrose 300 ml @ 300 mls/hr Q12HR IV Last administered on 02/24/19 22:45; Start 02/18/19 at 09:00 Lactobacillus Rhamnosus (Culturelle) 1 cap BID PO Last administered on 02/23/19 20:43; Start 02/18/19 at 21:00 Diltiazem HCl (Cardizem 24hr Cd) 240 mg DAILY PO Last administered on 02/21/19at 08:34; Start 02/18/19 at 12:30 Aspirin (Ecotrin) 81 mg DAILYWBKFT PO Last administered on 02/21/19 08:34; Start 02/18/19 at 16:15; Stop 02/22/19 at 16:16; Status DC Acetaminophen (Tylenol) 650 mg PRN Q6HRS PRN PO FEVER Last administered on 02/22/19at 21:39; Start 02/19/19 at 01:45 Acetaminophen (Tylenol Supp) 650 mg PRN Q6HRS PRN [place] MILD PAIN/TEMP Last administered on 02/19/19at 02:18; Start 02/19/19 at 02:15 Norepinephrine Bitartrate 250 ml @ 1.875 mls/ hr CONT PRN IV SEE I/O RECORD; Start 02/19/19 at 07:30; Stop 02/23/19 at 11:38; Status DC Digoxin (Lanoxin) 250 mcg 1X ONCE IV Last administered on 02/19/19at 07:36; Start 02/19/19 at 07:30; Stop 02/19/19 at 07:31; Status DC Sodium Chloride 500 ml @ 500 mls/hr 1X ONCE IV Last administered on 02/19/19at 07:35; Start 02/19/19 at 07:30; Stop 02/19/19 at 08:29; Status DC Ondansetron HCl (Zofran) 4 mg Q6HRS IV Last administered on 02/20/19at 05:43; Start 02/19/19 at 12:00; Stop 02/20/19 at 10:56; Status DC Pantoprazole Sodium (Protonix) 40 mg BIDAC PO Last administered on 02/21/19at 08:34; Start 02/19/19 at 16:30; Stop 02/21/19 at 15:18; Status DC Digoxin (Lanoxin) 250 mcg 1X ONCE IV Last administered on 02/19/19at 22:57; Start 02/19/19 at 23:00; Stop 02/19/19 at 23:01; Status DC Cellulose (Surgicel Hemostat 4x8) 1 each STK-MED ONCE .ROUTE ; Start 02/14/19 at 15:23; Stop 02/20/19 at 08:42; Status DC Cellulose (Surgicel Hemostat 4x8) 1 each STK-MED ONCE .ROUTE ; Start 02/14/19 at 15:50; Stop 02/20/19 at 08:42; Status DC Propofol 20 ml @ As Directed STK-MED ONCE IV ; Start 02/14/19 at 16:05; Stop 02/20/19 at 08:42; Status DC Famotidine (Pepcid Vial) 20 mg STK-MED ONCE .ROUTE ; Start 02/14/19 at 16:05; Stop 02/20/19 at 08:42; Status DC Lidocaine HCl (Lidocaine Pf 2% Vial) 5 ml STK-MED ONCE .ROUTE ; Start 02/14/19 at 16:05; Stop 02/20/19 at 08:42; Status DC Ondansetron HCl (Zofran) 4 mg STK-MED ONCE .ROUTE ; Start 02/14/19 at 16:05; Stop 02/20/19 at 08:42; Status DC Rocuronium [place] (Zemuron) 100 mg STK-MED ONCE .ROUTE ; Start 02/14/19 at 16:05; Stop 02/20/19 at 08:42; Status DC Fentanyl Citrate (Fentanyl 2ml Vial) 100 mcg STK-MED ONCE .ROUTE ; Start 02/14/19 at 16:06; Stop 02/20/19 at 08:42; Status DC Dexamethasone Sodium Phosphate (Decadron) 4 mg STK-MED ONCE .ROUTE ; Start 02/14/19 at 16:06; Stop 02/20/19 at 08:42; Status DC Neostigmine Methylsulfate (Neostigmine Methylsulfate) 5 mg STK-MED ONCE .ROUTE ; Start 02/14/19 at 17:26; Stop 02/20/19 at 08:42; Status DC Glycopyrrolate (Robinul) 1 mg STK-MED ONCE .ROUTE ; Start 02/14/19 at 17:26; Stop 02/20/19 at 08:42; Status DC Ondansetron HCl (Zofran) 4 mg PRN Q6HRS PRN IV NAUSEA/VOMITING; Start 02/20/19 at 10:54 Metoprolol Tartrate (Lopressor) 25 mg BID PO Last administered on 02/21/19at 20:44; Start 02/20/19 at 12:15; Stop 02/22/19 at 10:28; Status DC Ringer's Solution 1,000 ml @ 50 mls/hr Q20H IV Last administered on 02/21/19at 14:47; Start 02/21/19 at 07:00; Stop 02/21/19 at 18:59; Status DC Midazolam HCl (Versed) 2 mg PRN 1X PRN IV PRIOR TO PROCEDURE; Start 02/21/19 at 12:30; Stop 02/22/19 at 12:29; Status DC Fentanyl Citrate (Fentanyl 2ml Vial) 25 mcg PRN Q5MIN PRN IV X 2 DOSES FOR PAIN; Start 02/21/19 at 12:30; Stop 02/22/19 at 12:29; Status DC Fentanyl Citrate (Fentanyl 2ml Vial) 50 mcg PRN Q5MIN PRN IV X 2 DOSES FOR PAIN; Start 02/21/19 at 12:30; Stop 02/22/19 at 12:29; Status DC Ringer's Solution 1,000 ml @ 125 mls/hr Q8H IV Last administered on 02/21/19at 12:27; Start 02/21/19 at 12:27; Stop 02/22/19 at 00:26; Status DC Lidocaine HCl (Xylocaine-Mpf 1% 2ml Vial) 2 ml 1X PRN PRN ID IV START; Start 02/21/19 at 12:30; Stop 02/22/19 at 12:29; Status DC Pantoprazole Sodium 80 mg/ Sodium Chloride 100 ml @ 10 mls/hr Q10H IV Last administered on 02/25/19at 01:36; Start 02/21/19 at 15:30 Metoprolol Tartrate (Lopressor Vial) 5 mg Q6HRS IVP Last administered on 02/25/19at 05:54; Start 02/22/19 at 12:00 Lidocaine/Sodium Bicarbonate (Buffered Lidocaine 1%) 3 ml STK-MED ONCE .ROUTE ; Start 02/22/19 at 12:08; Stop 02/22/19 at 12:09; Status DC Midazolam HCl (Versed) 2 mg STK-MED ONCE .ROUTE ; Start 02/22/19 at 12:21; Stop 02/22/19 at 12:22; Status DC Fentanyl Citrate (Fentanyl 2ml Vial) 100 mcg STK-MED ONCE .ROUTE ; Start 02/22/19 at 12:21; Stop 02/22/19 at 12:22; Status DC Lidocaine/Sodium Bicarbonate (Buffered Lidocaine 1%) 3 ml 1X ONCE IJ Last administered on 02/22/19 13:00; Start 02/22/19 at 12:30; Stop 02/22/19 at 12:31; Status DC Midazolam HCl (Versed) 2 mg 1X ONCE IV Last administered on 02/22/19 13:01; Start 02/22/19 at 12:30; Stop 02/22/19 at 12:31; Status DC Fentanyl Citrate (Fentanyl 2ml Vial) 100 mcg 1X ONCE IV Last administered on 02/22/19 13:02; Start 02/22/19 at 12:30; Stop 02/22/19 at 12:31; Status DC Furosemide (Lasix) 40 mg 1X ONCE IVP Last administered on 02/22/19 16:20; Start 02/22/19 at 16:15; Stop 02/22/19 at 16:16; Status DC Hydralazine HCl (Apresoline Inj) 10 mg PRN Q4HRS PRN IVP ELEVATED BP, SEE COMMENTS; Start 02/22/19 at 16:15 Digoxin (Lanoxin) 250 mcg PRN DAILY PRN IV SEE COMMENTS; Start 02/22/19 at 16:15 Albumin Human 100 ml @ 100 mls/hr 1X ONCE IV Last administered on 02/22/19 16:20; Start 02/22/19 at 16:15; Stop 02/22/19 at 17:14; Status DC Aspirin (Aspirin) 150 mg DAILY [place] ; Start 02/22/19 at 17:00 Info (Tpn Per Pharmacy) 1 each PRN DAILY PRN MC SEE COMMENTS Last administered on 02/24/19at 12:48; Start 02/23/19 at 11:45 Sodium Chloride 90 meq/Potassium Chloride 70 meq/ Potassium Phosphate 13.6 mmol/Magnesium Sulfate 15 meq/ Calcium Gluconate 10 meq/ Multivitamins 10 ml/Chromium/ Copper/Manganese/ Seleni/Zn 1 ml/ Total Parenteral Nutrition/Amino Acids/Dextrose/ Fat Emulsion Intravenous 1,512 ml @ 63 mls/hr TPN CONT IV Last administered on 02/23/19 21:28; Start 02/23/19 at 22:00; Stop 02/24/19 at 21:59; Status DC Potassium Chloride/Water 50 ml @ 50 mls/hr Q1H IV Last administered on 5/4/19at 15:31; Start 02/23/19 at 15:00; Stop 02/23/19 at 16:59; Status DC Morphine Sulfate (Morphine Sulfate) 2 mg PRN Q2HR PRN IV PAIN; Start 02/24/19 at 12:00 Sodium Chloride 90 meq/Potassium Chloride 70 meq/ Potassium Phosphate 25 mmol/ Magnesium Sulfate 15 meq/Calcium Gluconate 10 meq/ Multivitamins 10 ml/Chromium/ Copper/Manganese/ Seleni/Zn 1 ml/ Total Parenteral Nutrition/Amino Acids/Dextrose/ Fat Emulsion Intravenous 1,512 ml @ 63 mls/hr TPN CONT IV Last administered on 02/24/19at 22:47; Start 02/24/19 at 22:00; Stop 02/25/19 at 21:59 Artificial Tears (Artificial Tears) 1 drop PRN BID PRN OU DRY EYE; Start 02/24/19 at 18:45 Active Scripts Active Atorvastatin Calcium 40 Mg Tablet 40 Mg PO QHS 30 Days Reported Flomax (Tamsulosin Hcl) 0.4 Mg Cap.er.24h 0.4 Mg PO DAILY Clopidogrel (Clopidogrel Bisulfate) 75 Mg Tablet 75 Mg PO DAILY Aspirin 81 Mg Tab.chew 1 Tab PO DAILY Vitamin B-12 (Cyanocobalamin (Vitamin B-12)) 1,000 Mcg Tablet 1 Tab PO DAILY Metoprolol Succinate ( Xl ) (Metoprolol Succinate) 25 Mg Tab.er.24h 1 Tab PO DAILY Losartan Potassium 100 Mg Tablet 100 Mg PO DAILY Multivitamins (Multivitamin) 1 Each Tablet 1 Tab PO DAILY Vitamin D (Cholecalciferol (Vitamin D3)) 2,000 Unit Capsule 1 Cap PO DAILY Vitals/I & O Vital Sign - Last 24 Hours 02/24/19 02/24/19 02/24/19 02/24/19 11:00 12:12 15:00 17:34 Temp 97.4 97.5 97.4 97.5 Pulse 116 109 110 110 Resp 18 18 B/P (MAP) 154/78 (103) 154/78 134/76 (95) 134/76 Pulse Ox 93 94 O2 Delivery Nasal Cannula Nasal Cannula O2 Flow Rate 2.0 2.0 02/24/19 02/24/19 02/24/19 02/25/19 19:00 19:45 22:52 00:51 Temp 98.5 98.1 98.5 98.1 Pulse 99 124 118 Resp 18 18 B/P (MAP) 153/79 (103) 151/81 (104) 151/81 Pulse Ox 95 93 O2 Delivery Nasal Cannula Nasal Cannula Nasal Cannula O2 Flow Rate 2.0 2.0 2.0 02/25/19 02/25/19 02/25/19 02:49 05:54 07:00 Temp 98.1 98.1 Pulse 118 122 108 Resp 19 18 B/P (MAP) 147/69 (95) 162/83 162/80 (107) Pulse Ox 93 92 O2 Delivery Nasal Cannula Nasal Cannula O2 Flow Rate 2.0 2.0 Intake and Output 02/24/19 02/24/19 02/25/19 14:59 22:59 06:59 Intake Total 350 ml Output Total 0 ml 775 ml 671 ml Balance 0 ml -775 ml -321 ml Nutrition Consultation Dietary Evaluation: Recommendations by RD: Increase Calorie Intake, Protein supplementation Comments: Continue w/GI soft diet at this time, honor food preferences, and provide snacks as requested REC Ensure w/lunch (only strawberry or vanilla) If PO intake does not improve >50% meals within next few days, recommend conisderation of PPN to supplement poor PO intake Expected Outcomes/Goals: PO intake to meet >75% est needs - not met, goal ongoing Malnutrition Findings: Food and Nutrition Intake (Sev: <50% est energy req 5days Weight Status: Appropriate BRI WARD III DO February 25, 2019 09:57
--- NOTE | 2019-02-25 10:27 | RAD ---
HEPATOBILIARY SCAN WITH EJECTION FRACTION 02/25/2019 History: Evaluate for leak, gallbladder fossa fluid collection following cholecystectomy. Procedure: Serial static images are obtained of the liver and biliary system in the frontal projection following IV administration of 5.5 mCi of Technetium 99m Choletec. Findings: There is prompt hepatic uptake of tracer from the blood pool. There is homogeneous distribution throughout the liver the gallbladder is surgically absent. Normal excretion of radiotracer into the biliary tree and bowel appears to be present. No gross evidence of leak is identified. IMPRESSION: No scintigraphic evidence of bile leak
--- NOTE | 2019-02-25 10:46 | PDOC ---
PULMONARY PROGRESS NOTES Subjective C/O DYSPNEA WITH ACTIVITY Vitals Vital Signs Date Time Temp Pulse Resp B/P (MAP) Pulse Ox O2 Delivery O2 Flow Rate FiO2 02/25/19 09:55 108 162/80 02/25/19 07:00 98.1 18 92 Nasal Cannula 2.0 98.1 ROS: No Nausea, No Chest Pain, No Increase Cough General: Alert, No acute distress Lungs: Other (DECREASE BASES) Cardiovascular: S1, S2 Abdomen: Soft Neuro Exam: Alert Extremities: Other (1+EDEMA) Skin: Warm Labs Laboratory Tests Test 02/23/19 13:25 02/24/19 05:30 02/25/19 06:30 Sodium Level 141 mmol/L (136-145) 139 mmol/L (136-145) 139 mmol/L (136-145) Potassium Level 3.3 mmol/L (3.5-5.1) 3.6 mmol/L (3.5-5.1) 3.8 mmol/L (3.5-5.1) Chloride Level 107 mmol/L (98-107) 108 mmol/L (98-107) 107 mmol/L (98-107) Carbon Dioxide Level 23 mmol/L (21-32) 23 mmol/L (21-32) 24 mmol/L (21-32) Anion Gap 11 (6-14) 8 (6-14) 8 (6-14) Blood Urea Nitrogen 26 mg/dL (8-26) 24 mg/dL (8-26) 21 mg/dL (8-26) Creatinine 1.4 mg/dL (0.7-1.3) 1.2 mg/dL (0.7-1.3) 1.2 mg/dL (0.7-1.3) Estimated GFR (Cockcroft-Gault) 48.4 57.8 57.8 Glucose Level 119 mg/dL (70-99) 165 mg/dL (70-99) 128 mg/dL (70-99) Calcium Level 8.3 mg/dL (8.5-10.1) 8.0 mg/dL (8.5-10.1) 7.7 mg/dL (8.5-10.1) Phosphorus Level 3.7 mg/dL (2.6-4.7) 2.9 mg/dL (2.6-4.7) 2.6 mg/dL (2.6-4.7) Magnesium Level 1.9 mg/dL (1.8-2.4) 2.0 mg/dL (1.8-2.4) 2.0 mg/dL (1.8-2.4) White Blood Count 17.6 x10^3/uL (4.0-11.0) Red Blood Count 2.60 x10^6/uL (4.30-5.70) Hemoglobin 7.9 g/dL (13.0-17.5) Hematocrit 24.1 % (39.0-53.0) Mean Corpuscular Volume 93 fL (79-100) Mean Corpuscular Hemoglobin 30 pg (25-35) Mean Corpuscular Hemoglobin Concent 33 g/dL (31-37) Red Cell Distribution Width 15.6 % (11.5-14.5) Platelet Count 430 x10^3/uL (140-400) Neutrophils (%) (Auto) 82 % (31-73) Lymphocytes (%) (Auto) 8 % (24-48) Monocytes (%) (Auto) 7 % (0-9) Eosinophils (%) (Auto) 3 % (0-3) Basophils (%) (Auto) 1 % (0-3) Neutrophils # (Auto) 14.4 x10^3uL (1.8-7.7) Lymphocytes # (Auto) 1.4 x10^3/uL (1.0-4.8) Monocytes # (Auto) 1.2 x10^3/uL (0.0-1.1) Eosinophils # (Auto) 0.5 x10^3/uL (0.0-0.7) Basophils # (Auto) 0.1 x10^3/uL (0.0-0.2) Laboratory Tests Test 02/25/19 06:30 Sodium Level 139 mmol/L (136-145) Potassium Level 3.8 mmol/L (3.5-5.1) Chloride Level 107 mmol/L (98-107) Carbon Dioxide Level 24 mmol/L (21-32) Anion Gap 8 (6-14) Blood Urea Nitrogen 21 mg/dL (8-26) Creatinine 1.2 mg/dL (0.7-1.3) Estimated GFR (Cockcroft-Gault) 57.8 Glucose Level 128 mg/dL (70-99) Calcium Level 7.7 mg/dL (8.5-10.1) Phosphorus Level 2.6 mg/dL (2.6-4.7) Magnesium Level 2.0 mg/dL (1.8-2.4) Medications Active Scripts Medications Dose Route/Sig Max Daily Dose Days Date Category Flomax (Tamsulosin Hcl) 0.4 Mg Cap.er.24h 0.4 Mg PO DAILY 02/13/19 Reported Clopidogrel (Clopidogrel Bisulfate) 75 Mg Tablet 75 Mg PO DAILY 02/13/19 Reported Aspirin 81 Mg Tab.chew 1 Tab PO DAILY 02/13/19 Reported Vitamin B-12 (Cyanocobalamin (Vitamin B-12)) 1,000 Mcg Tablet 1 Tab PO DAILY 12/25/18 Reported Metoprolol Succinate ( Xl ) (Metoprolol Succinate) 25 Mg Tab.er.24h 1 Tab PO DAILY 12/25/18 Reported Losartan Potassium 100 Mg Tablet 100 Mg PO DAILY 12/25/18 Reported Atorvastatin Calcium 40 Mg Tablet 40 Mg PO QHS 30 06/27/17 Rx Multivitamins (Multivitamin) 1 Each Tablet 1 Tab PO DAILY 08/12/15 Reported Vitamin D (Cholecalciferol (Vitamin D3)) 2,000 Unit Capsule 1 Cap PO DAILY 08/12/15 Reported Impression . IMPRESSION: 1. Expected hypoxemic respiratory failure. 2. Status post laparoscopic cholecystectomy with cholangiogram. 3. Status post exploratory laparotomy for hemoperitoneum on 02/14. 4. Abnormal x-ray compatible with atelectasis and effusion, suspect related to intra-abdominal inflammation and possible infection.REPEAT CXR TODAY 5. Leukocytosis. 6. History of cerebrovascular accident, hypertension 7. Hyperlipidemia. 8. Transient atrial fibrillation. 9. Acute blood loss anemia 02/20 Impression: 1. There is a air/ fluid collection identified in the gallbladder fossa region measuring 8.2 x 4.7 cm. Differential includes abscess or focal biloma, if there has been a recent cholecystectomy. A HIDA scan may be helpful. A drain tubing is identified in the gallbladder fossa region. 2. Punctate foci of air identified in the right upper quadrant of the abdomen with surrounding inflammatory fat stranding probably secondary to recent surgery. Correlate clinically. 3. Bibasilar lung consolidation changes likely pneumonia or atelectasis with collapse and consolidation of the right middle lobe of the lung. Bilateral pleural effusions , right greater than left. 4. Mild thickened appearance of the wall of the colon throughout could be due to nondistention or mild colitis. Plan . PER SURGERY MONITOR H/H/ S/P drainage of abd fluid collection, / TPN REPEAT CXR TODAY TO ASSESS FOR ANY INCREASE IN EFFUSIONS UP TO CHAIR PT IV ANTIBX PER ID NUTRITION PER SURGERY MELODY CURRIE MD February 25, 2019 10:46
[2019-02-25 11:20] VITALS: BP 161/62
--- NOTE | 2019-02-25 12:02 | PDOC ---
SURGICAL PROGRESS NOTE Subjective up from walking, SOA trying to calm breathing down Vital Signs Vital Signs Date Time Temp Pulse Resp B/P (MAP) Pulse Ox O2 Delivery O2 Flow Rate FiO2 02/25/19 11:20 97.8 119 19 161/62 (95) 93 Nasal Cannula 2.0 97.8 I&O Intake and Output 02/25/19 07:00 Intake Total 350 ml Output Total 1446 ml Balance -1096 ml IV Total 350 ml Output Urine Total 1300 ml Stool Total 1 ml Drainage Total 145 ml # Bowel Movements 2 General: Alert, Oriented X3, Cooperative, No acute distress Abdomen: Soft, Other (drain purulent, NICOLAS no drainage ) Labs Laboratory Tests Test 02/23/19 13:25 02/24/19 05:30 02/25/19 06:30 Sodium Level 141 mmol/L (136-145) 139 mmol/L (136-145) 139 mmol/L (136-145) Potassium Level 3.3 mmol/L (3.5-5.1) 3.6 mmol/L (3.5-5.1) 3.8 mmol/L (3.5-5.1) Chloride Level 107 mmol/L (98-107) 108 mmol/L (98-107) 107 mmol/L (98-107) Carbon Dioxide Level 23 mmol/L (21-32) 23 mmol/L (21-32) 24 mmol/L (21-32) Anion Gap 11 (6-14) 8 (6-14) 8 (6-14) Blood Urea Nitrogen 26 mg/dL (8-26) 24 mg/dL (8-26) 21 mg/dL (8-26) Creatinine 1.4 mg/dL (0.7-1.3) 1.2 mg/dL (0.7-1.3) 1.2 mg/dL (0.7-1.3) Estimated GFR (Cockcroft-Gault) 48.4 57.8 57.8 Glucose Level 119 mg/dL (70-99) 165 mg/dL (70-99) 128 mg/dL (70-99) Calcium Level 8.3 mg/dL (8.5-10.1) 8.0 mg/dL (8.5-10.1) 7.7 mg/dL (8.5-10.1) Phosphorus Level 3.7 mg/dL (2.6-4.7) 2.9 mg/dL (2.6-4.7) 2.6 mg/dL (2.6-4.7) Magnesium Level 1.9 mg/dL (1.8-2.4) 2.0 mg/dL (1.8-2.4) 2.0 mg/dL (1.8-2.4) White Blood Count 17.6 x10^3/uL (4.0-11.0) Red Blood Count 2.60 x10^6/uL (4.30-5.70) Hemoglobin 7.9 g/dL (13.0-17.5) Hematocrit 24.1 % (39.0-53.0) Mean Corpuscular Volume 93 fL (79-100) Mean Corpuscular Hemoglobin 30 pg (25-35) Mean Corpuscular Hemoglobin Concent 33 g/dL (31-37) Red Cell Distribution Width 15.6 % (11.5-14.5) Platelet Count 430 x10^3/uL (140-400) Neutrophils (%) (Auto) 82 % (31-73) Lymphocytes (%) (Auto) 8 % (24-48) Monocytes (%) (Auto) 7 % (0-9) Eosinophils (%) (Auto) 3 % (0-3) Basophils (%) (Auto) 1 % (0-3) Neutrophils # (Auto) 14.4 x10^3uL (1.8-7.7) Lymphocytes # (Auto) 1.4 x10^3/uL (1.0-4.8) Monocytes # (Auto) 1.2 x10^3/uL (0.0-1.1) Eosinophils # (Auto) 0.5 x10^3/uL (0.0-0.7) Basophils # (Auto) 0.1 x10^3/uL (0.0-0.2) Laboratory Tests Test 02/25/19 06:30 Sodium Level 139 mmol/L (136-145) Potassium Level 3.8 mmol/L (3.5-5.1) Chloride Level 107 mmol/L (98-107) Carbon Dioxide Level 24 mmol/L (21-32) Anion Gap 8 (6-14) Blood Urea Nitrogen 21 mg/dL (8-26) Creatinine 1.2 mg/dL (0.7-1.3) Estimated GFR (Cockcroft-Gault) 57.8 Glucose Level 128 mg/dL (70-99) Calcium Level 7.7 mg/dL (8.5-10.1) Phosphorus Level 2.6 mg/dL (2.6-4.7) Magnesium Level 2.0 mg/dL (1.8-2.4) Problem List HIDA no bile leak continue drains LACHO OCONNOR [employer] A[employer]LYST February 25, 2019 12:02
--- NOTE | 2019-02-25 12:55 | NUR ---
SS following up with discharge planning. SS phoned and faxed clinical updates to [facility], ; fax [phone]. SS will continue to follow for discharge planning.
--- NOTE | 2019-02-25 15:16 | RAD ---
Portable chest, 02/25/2019: HISTORY: Pleural effusions Comparison is made to a study from 02/17/2019. A right PICC has been inserted extending to the level the atrial caval junction. The heart size is unchanged. The pulmonary vascularity is within normal limits. Moderate bibasilar pulmonary opacities have worsened. The findings suggest a combination of pleural fluid and underlying atelectasis/infiltrate. The upper lung leigh are clear. There is no evidence of pneumothorax. IMPRESSION: 1. A right PICC has been inserted in satisfactory position. 2. Worsening moderate bibasilar opacities compatible with pleural fluid and underlying atelectasis/consolidation. Electronically signed by: Srinath Baer MD (02/25/2019 3:13 PM) [facility]
[2019-02-25 15:21] VITALS: BP 135/62
[2019-02-25] MEDS: TPN PER PHARMACY MC PRN (15:21)
--- NOTE | 2019-02-25 16:20 | PDOC ---
Subjective: Subjective: No vomiting, says he thinks TPN will be continued. Objective: Objective: Spoke w/ RNs throughout the day re: PO intake (meds, water) and pharmacy's inquiry re: need for PPI since in short supply. Vital Signs: Vital Signs Date Time Temp Pulse Resp B/P (MAP) Pulse Ox O2 Delivery O2 Flow Rate FiO2 02/25/19 15:21 97.4 84 20 135/62 (86) 90 Nasal Cannula 2.0 97.4 Labs: Laboratory Tests Test 02/25/19 06:30 Sodium Level 139 mmol/L Potassium Level 3.8 mmol/L Chloride Level 107 mmol/L Carbon Dioxide Level 24 mmol/L Anion Gap 8 Blood Urea Nitrogen 21 mg/dL Creatinine 1.2 mg/dL Estimated GFR (Cockcroft-Gault) 57.8 Glucose Level 128 mg/dL Calcium Level 7.7 mg/dL Phosphorus Level 2.6 mg/dL Magnesium Level 2.0 mg/dL Imaging: HIDA 02/22 IMPRESSION: No scintigraphic evidence of bile leak CXR 02/25 IMPRESSION: 1. A right PICC has been inserted in satisfactory position. 2. Worsening moderate bibasilar opacities compatible with pleural fluid and underlying atelectasis/consolidation. PE: GEN: NAD - was working w/ therapy LUNGS: NC HEART: tachycardia earlier today noted ABD: soft, non-tender NEURO/PSYCH: A & O 3 A/P: DU w/ edema/GOO and esophagitis -- Continue NPO on TPN and IV PPI - d/w RN. MARU HOLCOMB February 25, 2019 16:20
[2019-02-25 19:44] VITALS: BP 150/72
[2019-02-25] MEDS: TEMAZEPAM 15 MG CAPSULE PO PRN (20:17)
[2019-02-25] MEDS: ATORVASTATIN CALCIUM 40 MG TABLET. PO SCH (20:17)
[2019-02-25] MEDS ORDERED: [UNRECOGNIZED DRUG - OTHER] IV SCH ×10 (22:00)
[2019-02-25] MEDS ORDERED: AMINO ACID IV SCH ×10 (22:00)
[2019-02-25] MEDS ORDERED: TOTAL PARENTERAL NUTRITION IV SCH ×10 (22:00)
[2019-02-25] MEDS ORDERED: DEXTROSE 70% IV SCH ×10 (22:00)
[2019-02-25 23:23] VITALS: BP 199/69
[2019-02-26] MEDS: PANTOPRAZOLE SODIUM IV DRIP 80 MG in IV NORMAL SALINE 100ML 100 ML IV SCH ×2 (02:42→15:21)
[2019-02-26 03:21] VITALS: BP 150/62
[2019-02-26] MEDS: PIPERACILLIN/TAZOBACTAM 3.375 GM in IV NORMAL SALINE 50ML 50 ML IV SCH ×3 (04:59→18:11)
[2019-02-26] MEDS: METOPROLOL TARTRATE 5 MG/5 ML VIAL. IVP SCH ×3 (05:23→16:55)
[2019-02-26 05:54] LABS: MAGNESIUM 2.1 mg/dL (1.8-2.4); PHOSPHORUS 2.8 mg/dL (2.6-4.7)
[2019-02-26 07:00] VITALS: BP 150/58
[2019-02-26 08:36] LABS: ALBUMIN 1.5 g/dL (3.4-5.0); ALBUMIN/GLOBULIN RATIO 0.5 (1.0-1.7); CALCIUM 7.9 mg/dL (8.5-10.1); CREATININE 1.1 mg/dL (0.7-1.3); GFR 63.9; POTASSIUM 4.1 mmol/L (3.5-5.1); TOTAL BILIRUBIN 0.3 mg/dL (0.2-1.0); TOTAL PROTEIN 4.6 g/dL (6.4-8.2)
[2019-02-26] MEDS ORDERED: IOHEXOL 300 MG/ML 100ML VIAL. PO ONE (09:00)
--- NOTE | 2019-02-26 09:16 | PDOC ---
PULMONARY PROGRESS NOTES Subjective NOT ON ROOM IN RADIOLOGY DEPT FOR EXAM Vitals Vital Signs Date Time Temp Pulse Resp B/P (MAP) Pulse Ox O2 Delivery O2 Flow Rate FiO2 02/26/19 07:00 98.0 71 20 150/58 (88) 86 Nasal Cannula 3.0 98.0 ROS: No Nausea, No Chest Pain, No Increase Cough General: Alert, No acute distress Lungs: Other (DECREASE BASES) Cardiovascular: S1, S2 Abdomen: Soft Neuro Exam: Alert Extremities: Other (1+EDEMA) Skin: Warm Labs Laboratory Tests Test 02/25/19 06:30 02/26/19 05:20 Sodium Level 139 mmol/L (136-145) 139 mmol/L (136-145) Potassium Level 3.8 mmol/L (3.5-5.1) 4.1 mmol/L (3.5-5.1) Chloride Level 107 mmol/L (98-107) 109 mmol/L (98-107) Carbon Dioxide Level 24 mmol/L (21-32) 22 mmol/L (21-32) Anion Gap 8 (6-14) 8 (6-14) Blood Urea Nitrogen 21 mg/dL (8-26) 19 mg/dL (8-26) Creatinine 1.2 mg/dL (0.7-1.3) 1.1 mg/dL (0.7-1.3) Estimated GFR (Cockcroft-Gault) 57.8 63.9 Glucose Level 128 mg/dL (70-99) 134 mg/dL (70-99) Calcium Level 7.7 mg/dL (8.5-10.1) 7.9 mg/dL (8.5-10.1) Phosphorus Level 2.6 mg/dL (2.6-4.7) 2.8 mg/dL (2.6-4.7) Magnesium Level 2.0 mg/dL (1.8-2.4) 2.1 mg/dL (1.8-2.4) BUN/Creatinine Ratio 17 (6-20) Total Bilirubin 0.3 mg/dL (0.2-1.0) Aspartate Amino Transf (AST/SGOT) 29 U/L (15-37) Alanine Aminotransferase (ALT/SGPT) 25 U/L (16-63) Alkaline Phosphatase 81 U/L (46-116) Total Protein 4.6 g/dL (6.4-8.2) Albumin 1.5 g/dL (3.4-5.0) Albumin/Globulin Ratio 0.5 (1.0-1.7) Laboratory Tests Test 02/26/19 05:20 Sodium Level 139 mmol/L (136-145) Potassium Level 4.1 mmol/L (3.5-5.1) Chloride Level 109 mmol/L (98-107) Carbon Dioxide Level 22 mmol/L (21-32) Anion Gap 8 (6-14) Blood Urea Nitrogen 19 mg/dL (8-26) Creatinine 1.1 mg/dL (0.7-1.3) Estimated GFR (Cockcroft-Gault) 63.9 BUN/Creatinine Ratio 17 (6-20) Glucose Level 134 mg/dL (70-99) Calcium Level 7.9 mg/dL (8.5-10.1) Phosphorus Level 2.8 mg/dL (2.6-4.7) Magnesium Level 2.1 mg/dL (1.8-2.4) Total Bilirubin 0.3 mg/dL (0.2-1.0) Aspartate Amino Transf (AST/SGOT) 29 U/L (15-37) Alanine Aminotransferase (ALT/SGPT) 25 U/L (16-63) Alkaline Phosphatase 81 U/L (46-116) Total Protein 4.6 g/dL (6.4-8.2) Albumin 1.5 g/dL (3.4-5.0) Albumin/Globulin Ratio 0.5 (1.0-1.7) Medications Active Scripts Medications Dose Route/Sig Max Daily Dose Days Date Category Flomax (Tamsulosin Hcl) 0.4 Mg Cap.er.24h 0.4 Mg PO DAILY 02/13/19 Reported Clopidogrel (Clopidogrel Bisulfate) 75 Mg Tablet 75 Mg PO DAILY 02/13/19 Reported Aspirin 81 Mg Tab.chew 1 Tab PO DAILY 02/13/19 Reported Vitamin B-12 (Cyanocobalamin (Vitamin B-12)) 1,000 Mcg Tablet 1 Tab PO DAILY 12/25/18 Reported Metoprolol Succinate ( Xl ) (Metoprolol Succinate) 25 Mg Tab.er.24h 1 Tab PO DAILY 12/25/18 Reported Losartan Potassium 100 Mg Tablet 100 Mg PO DAILY 12/25/18 Reported Atorvastatin Calcium 40 Mg Tablet 40 Mg PO QHS 30 9/5/17 Rx Multivitamins (Multivitamin) 1 Each Tablet 1 Tab PO DAILY 08/12/15 Reported Vitamin D (Cholecalciferol (Vitamin D3)) 2,000 Unit Capsule 1 Cap PO DAILY 08/12/15 Reported Impression . IMPRESSION: 1. Expected hypoxemic respiratory failure. 2. Status post laparoscopic cholecystectomy with cholangiogram. 3. Status post exploratory laparotomy for hemoperitoneum on 02/14. 4. Abnormal x-ray compatible with atelectasis and effusion, suspect related to intra-abdominal inflammation and possible infection.REPEAT CXR TODAY 5. Leukocytosis. 6. History of cerebrovascular accident, hypertension 7. Hyperlipidemia. 8. Transient atrial fibrillation. 9. Acute blood loss anemia 02/20 Impression: 1. There is a air/ fluid collection identified in the gallbladder fossa region measuring 8.2 x 4.7 cm. Differential includes abscess or focal biloma, if there has been a recent cholecystectomy. A HIDA scan may be helpful. A drain tubing is identified in the gallbladder fossa region. 2. Punctate foci of air identified in the right upper quadrant of the abdomen with surrounding inflammatory fat stranding probably secondary to recent surgery. Correlate clinically. 3. Bibasilar lung consolidation changes likely pneumonia or atelectasis with collapse and consolidation of the right middle lobe of the lung. Bilateral pleural effusions , right greater than left. 4. Mild thickened appearance of the wall of the colon throughout could be due to nondistention or mild colitis. Plan . GI EXAM NOW IN RADIOLOGY DEPT WILL CONTINUE SUPPORT ANTIBX PER ID FOLLOW SURGERY INPUT UMA NARANJO MD February 26, 2019 09:16
--- NOTE | 2019-02-26 09:17 | PDOC ---
Infectious Disease Note Subjective: Subjective Comfortable, denies pain/N/V had 1 loose bm this am TPN No fevers/chills some sob and cough ROS: ROS Negative except for above. Vital Signs: Vital Signs Vital Signs Date Time Temp Pulse Resp B/P (MAP) Pulse Ox O2 Delivery O2 Flow Rate FiO2 02/26/19 07:00 98.0 71 20 150/58 (88) 86 Nasal Cannula 3.0 98.0 Physical Exam: PHYSICAL EXAM GENERAL: Sitting in the chair, relaxed appearance HEENT: Oral cavity clear, dry NECK: Supple, no JVP, no lymphadenopathy. LUNGS: Clear. HEART: S1, S2 regular. ABDOMEN: Obese, soft,NT, NICOLAS x [address], purulent drainage. Small incision approx sutures, clean EXTREMITIES: Bilat LE trace edema, no cyanosis SKIN: No rash NEUROLOGIC: Alert, responds appropriately RUE-PICC (02/22) clean Medications: Inpatient Meds: Current Medications Medications (Trade) Dose Ordered Sig/Zane Start Time Stop Time Status Last Admin Dose Admin Acetaminophen (Tylenol Supp) 650 mg PRN Q6HRS PRN 02/19/19 02:15 02/19/19 02:18 650 MG Acetaminophen (Tylenol) 650 mg PRN Q6HRS PRN 02/19/19 01:45 02/22/19 21:39 650 MG Acetaminophen/ Hydrocodone Bitart (Lortab 5/325) 2 tab PRN Q4HRS PRN 02/14/19 14:00 02/17/19 03:22 2 TAB Albumin Human 100 ml @ 100 mls/hr 1X ONCE 02/22/19 16:15 02/22/19 17:14 DC 02/22/19 16:20 100 MLS/HR Artificial Tears (Artificial Tears) 1 drop PRN BID PRN 02/24/19 18:45 Aspirin (Aspirin) 150 mg DAILY 02/22/19 17:00 02/25/19 19:17 150 MG Aspirin (Ecotrin) 81 mg [id number] 02/18/19 16:15 02/22/19 16:16 DC 02/21/19 08:34 81 MG Atorvastatin Calcium (Lipitor) 40 mg QHS 02/14/19 21:00 02/25/19 20:17 40 MG Bacitracin (Bacitracin) 50,000 unit STK-MED ONCE 02/14/19 15:14 02/14/19 16:15 DC 02/14/19 16:49 50,000 UNIT Bupivacaine HCl/ Epinephrine Bitart (Sensorcain-Mpf Epi 0.5%-1:[id number]) 30 ml STK-MED ONCE 02/14/19 15:13 02/14/19 16:14 DC Calcium Carbonate/ Glycine (Tums) 500 mg PRN AFTMEALHC PRN 02/17/19 15:00 02/18/19 22:25 500 MG Cefazolin Sodium/ Dextrose (Ancef 2gm Premix) 2 gm STK-MED ONCE 02/14/19 11:00 02/15/19 13:02 DC Cellulose (Surgicel Hemostat 4x8) 1 each STK-MED ONCE 02/14/19 15:50 02/20/19 08:42 DC Clopidogrel Bisulfate (Plavix) 75 mg DAILY 02/17/19 14:00 02/25/19 09:54 75 MG Cyanocobalamin (Vitamin B-12) 1,000 mcg QHS 02/26/19 21:00 Dexamethasone Sodium Phosphate (Decadron) 4 mg STK-MED ONCE 02/14/19 16:06 02/20/19 08:42 DC Dextrose (Dextrose 50%-Water Syringe) 12.5 gm PRN Q15MIN PRN 02/14/19 14:00 Digoxin (Lanoxin) 250 mcg PRN DAILY PRN 02/22/19 16:15 Diltiazem HCl (Cardizem 24hr Cd) 240 mg DAILY 02/18/19 12:30 02/25/19 09:53 240 MG Diltiazem HCl 125 mg/Dextrose 125 ml @ 5 mls/hr CONT PRN 02/18/19 04:15 02/18/19 16:09 DC 02/18/19 04:27 5 MLS/HR Diphenhydramine HCl (Benadryl) 25 mg PRN Q6HRS PRN 02/14/19 14:00 02/23/19 20:43 25 MG Docusate Sodium (Colace) 100 mg BID 02/14/19 21:00 02/25/19 20:17 100 MG Famotidine (Pepcid Vial) 20 mg STK-MED ONCE 02/14/19 16:05 02/20/19 08:42 DC Fentanyl Citrate (Fentanyl 2ml Vial) 100 mcg 1X ONCE 02/22/19 12:30 02/22/19 12:31 DC 02/22/19 13:02 50 MCG Furosemide (Lasix) 40 mg 1X ONCE 02/22/19 16:15 02/22/19 16:16 DC 02/22/19 16:20 40 MG Glucagon (Glucagen) 1 mg STK-MED ONCE 02/14/19 10:01 02/14/19 11:02 DC Glycopyrrolate (Robinul) 1 mg STK-MED ONCE 02/14/19 17:26 02/20/19 08:42 DC Hydralazine HCl (Apresoline Inj) 10 mg PRN Q4HRS PRN 02/22/19 16:15 Hydromorphone HCl (Dilaudid) 1 mg PRN Q4HRS PRN 02/14/19 14:00 02/24/19 11:48 DC 02/23/19 09:46 1 MG Info (Tpn Per Pharmacy) 1 each PRN DAILY PRN 02/23/19 11:45 02/25/19 15:21 1 EACH Iohexol (Omnipaque 300 Mg/ml) 300 ml 1X ONCE 02/26/19 09:00 02/26/19 09:01 DC Lactobacillus Rhamnosus (Culturelle) 1 cap BID 02/18/19 21:00 02/25/19 20:17 1 CAP Lidocaine HCl (Lidocaine Pf 2% Vial) 5 ml STK-MED ONCE 02/14/19 16:05 02/20/19 08:42 DC Lidocaine HCl (Xylocaine-Mpf 1% 2ml Vial) 2 ml 1X PRN PRN 02/21/19 12:30 02/22/19 12:29 DC Lidocaine/Sodium Bicarbonate (Buffered Lidocaine 1%) 3 ml 1X ONCE 02/22/19 12:30 02/22/19 12:31 DC 02/22/19 13:00 6 ML Linezolid/Dextrose 300 ml @ 300 mls/hr Q12HR 02/18/19 09:00 02/25/19 20:16 300 MLS/HR Losartan Potassium (Cozaar) 100 mg DAILY 02/15/19 09:00 02/25/19 09:55 100 MG Metoprolol Succinate (Toprol Xl) 25 mg DAILY 02/15/19 09:00 02/20/19 12:11 DC 02/20/19 07:53 25 MG Metoprolol Tartrate (Lopressor Vial) 5 mg Q6HRS 02/22/19 12:00 02/26/19 05:23 5 MG Metoprolol Tartrate (Lopressor) 25 mg BID 02/20/19 12:15 02/22/19 10:28 DC 02/21/19 20:44 25 MG Midazolam HCl (Versed) 2 mg 1X ONCE 02/22/19 12:30 02/22/19 12:31 DC 02/22/19 13:01 1 MG Morphine Sulfate (Morphine Sulfate) 2 mg PRN Q2HR PRN 02/24/19 12:00 Multivitamins (Thera M Plus) 1 tab QHS 02/26/19 21:00 Neostigmine Methylsulfate (Neostigmine Methylsulfate) 5 mg STK-MED ONCE 02/14/19 17:26 02/20/19 08:42 DC Norepinephrine Bitartrate 250 ml @ 1.875 mls/ hr CONT PRN 02/19/19 07:30 02/23/19 11:38 DC Ondansetron HCl (Zofran) 4 mg PRN Q6HRS PRN 02/20/19 10:54 Pantoprazole Sodium (Protonix) 40 mg BIDAC 02/19/19 16:30 02/21/19 15:18 DC 02/21/19 08:34 40 MG Pantoprazole Sodium 80 mg/ Sodium Chloride 100 ml @ 10 mls/hr Q10H 02/21/19 15:30 02/26/19 02:42 10 MLS/HR Piperacillin Sod/ Tazobactam Sod 3.375 gm/Sodium Chloride 50 ml @ 100 mls/hr Q6HRS 02/17/19 12:00 02/26/19 04:59 100 MLS/HR Potassium Chloride/Sodium Chloride 1,000 ml @ 80 mls/hr [id number] 02/14/19 15:00 02/17/19 12:54 DC 02/17/19 06:02 80 MLS/HR Potassium Chloride/Water 50 ml @ 50 mls/hr Q1H 02/23/19 15:00 02/23/19 16:59 DC 02/23/19 15:31 50 MLS/HR Prochlorperazine Edisylate (Compazine) 5 mg PACU PRN PRN 02/14/19 07:00 02/14/19 20:00 DC Propofol 20 ml @ As Directed STK-MED ONCE 02/14/19 16:05 02/20/19 08:42 DC Ringer's Solution 1,000 ml @ 125 mls/hr Q8H 02/21/19 12:27 02/22/19 00:26 DC 02/21/19 12:27 125 MLS/HR Rocuronium Rolla (Zemuron) 100 mg STK-MED ONCE 02/14/19 16:05 02/20/19 08:42 DC Sevoflurane (Ultane) 60 ml STK-MED ONCE 02/14/19 08:17 02/14/19 08:18 DC Sodium Chloride (Normal Saline Flush) 3 ml QSHIFT PRN 02/14/19 14:00 Sodium Chloride (SODIUM CHLORIDE 20ml) 20 ml STK-MED ONCE 02/14/19 15:15 02/14/19 16:15 DC Sodium Chloride 90 meq/Potassium Chloride 70 meq/ Potassium Phosphate 13.6 mmol/Magnesium Sulfate 15 meq/ Calcium Gluconate 10 meq/ Multivitamins 10 ml/Chromium/ Copper/Manganese/ Seleni/Zn 1 ml/ Total Parenteral Nutrition/Amino Acids/Dextrose/ Fat Emulsion Intravenous 1,512 ml @ 63 mls/hr TPN CONT 02/23/19 22:00 02/24/19 21:59 DC 02/23/19 21:28 63 MLS/HR Sodium Chloride 90 meq/Potassium Chloride 70 meq/ Potassium Phosphate 25 mmol/ Magnesium Sulfate 15 meq/Calcium Gluconate 10 meq/ Multivitamins 10 ml/Chromium/ Copper/Manganese/ Seleni/Zn 1 ml/ Total Parenteral Nutrition/Amino Acids/Dextrose/ Fat Emulsion Intravenous 1,512 ml @ 63 mls/hr TPN CONT 02/25/19 22:00 02/26/19 21:59 02/25/19 21:06 63 MLS/HR Tamsulosin HCl (Flomax) 0.4 mg DAILY 02/15/19 09:00 02/25/19 09:54 0.4 MG Temazepam (Restoril) 15 mg PRN QHS PRN 02/25/19 13:30 02/25/19 20:17 15 MG Vitamin D (Vitamin D3) 2,000 unit QHS 02/26/19 21:00 Labs: Lab Laboratory Tests Test 02/26/19 05:20 Sodium Level 139 mmol/L (136-145) Potassium Level 4.1 mmol/L (3.5-5.1) Chloride Level 109 mmol/L (98-107) Carbon Dioxide Level 22 mmol/L (21-32) Anion Gap 8 (6-14) Blood Urea Nitrogen 19 mg/dL (8-26) Creatinine 1.1 mg/dL (0.7-1.3) Estimated GFR (Cockcroft-Gault) 63.9 BUN/Creatinine Ratio 17 (6-20) Glucose Level 134 mg/dL (70-99) Calcium Level 7.9 mg/dL (8.5-10.1) Phosphorus Level 2.8 mg/dL (2.6-4.7) Magnesium Level 2.1 mg/dL (1.8-2.4) Total Bilirubin 0.3 mg/dL (0.2-1.0) Aspartate Amino Transf (AST/SGOT) 29 U/L (15-37) Alanine Aminotransferase (ALT/SGPT) 25 U/L (16-63) Alkaline Phosphatase 81 U/L (46-116) Total Protein 4.6 g/dL (6.4-8.2) Albumin 1.5 g/dL (3.4-5.0) Albumin/Globulin Ratio 0.5 (1.0-1.7) Micro RUN DATE: 02/24/19 PAGE 1 RUN TIME: 1808 [facility] [address] [place] [address] Kash Kamara M.D., Assistant [employer]cery Store Manager PATIENT: RUDY POLK ACCT: [id number] LOC: [address] [place] [address] U: [id number] AGE/SX: 83/M ROOM: [address] [place] [address]: 02/14/[address]: KEESHA POLLACK MD : [id number] BED: 1 DIS: STATUS: ADM IN TLOC: SPEC #: [id number] LIZETTE: 02/22/19 STATUS: RES REQ #: [id number] RECD: 02/22/[address]: GUSTAVO ANDREWS MD SOURCE: ABDOMEN ENTR: 02/22/[address]: BRI WARD III, DO SPDESC: ABSCESS POWELL,LORENA OMER,KEESHA BLACKWOOD MD, MD,GRUPO SIFUENTES,UMA STEPHENSON MD, MD ORDERED: ANAER/AEROB/GS Procedure Result ANAEROBIC-AEROBIC CULTURE PENDING ANAEROBIC RES 1 PENDING AEROBIC CULT Preliminary Preliminary report AEROBIC RES 1 Preliminary Gram negative rods 4+ GRAM STAIN Final Final report GRAM STAIN RES 1 Final Comment Many white blood cells. GRAM STAIN RES 2 Final Comment Moderate gram negative rods. Performed at: [facility] [address], [place], [place] [id number] [employer] Warden: SHAWN Shrestha MD, Phone: [phone] Objective: Assessment: Fever, better Leukocytosis s/p CT-guided drainage, gallbladder fossa fluid collection, 02/22. GNR gram stain; s/p lap cholecystectomy, followed by lap exploration on 02/14 Hypertension. Hyperlipidemia. Atrial fibrillation Pulm infiltrates/effusion likely venous congestion Plan: Plan of Care cont Zyvox (02/18) and Zosyn(02/17) Probiotics drain management per Surgery awaiting upper gi study per GI PICC maintenance care PT/OT Monitor labs D/W and NED SCHNEIDER MD February 26, 2019 09:17
--- NOTE | 2019-02-26 09:19 | PDOC ---
SURGICAL PROGRESS NOTE Subjective he was up using commode still on TPN, PPI, NPO continue drains Vital Signs Vital Signs Date Time Temp Pulse Resp B/P (MAP) Pulse Ox O2 Delivery O2 Flow Rate FiO2 02/26/19 07:00 98.0 71 20 150/58 (88) 86 Nasal Cannula 3.0 98.0 I&O Intake and Output 02/26/19 07:00 Intake Total 3125 ml Output Total 1340 ml Balance 1785 ml Intake Oral 0 ml IV Total 1926 ml Other 1199 ml Output Urine Total 1250 ml Drainage Total 90 ml Labs Laboratory Tests Test 02/25/19 06:30 02/26/19 05:20 Sodium Level 139 mmol/L (136-145) 139 mmol/L (136-145) Potassium Level 3.8 mmol/L (3.5-5.1) 4.1 mmol/L (3.5-5.1) Chloride Level 107 mmol/L (98-107) 109 mmol/L (98-107) Carbon Dioxide Level 24 mmol/L (21-32) 22 mmol/L (21-32) Anion Gap 8 (6-14) 8 (6-14) Blood Urea Nitrogen 21 mg/dL (8-26) 19 mg/dL (8-26) Creatinine 1.2 mg/dL (0.7-1.3) 1.1 mg/dL (0.7-1.3) Estimated GFR (Cockcroft-Gault) 57.8 63.9 Glucose Level 128 mg/dL (70-99) 134 mg/dL (70-99) Calcium Level 7.7 mg/dL (8.5-10.1) 7.9 mg/dL (8.5-10.1) Phosphorus Level 2.6 mg/dL (2.6-4.7) 2.8 mg/dL (2.6-4.7) Magnesium Level 2.0 mg/dL (1.8-2.4) 2.1 mg/dL (1.8-2.4) BUN/Creatinine Ratio 17 (6-20) Total Bilirubin 0.3 mg/dL (0.2-1.0) Aspartate Amino Transf (AST/SGOT) 29 U/L (15-37) Alanine Aminotransferase (ALT/SGPT) 25 U/L (16-63) Alkaline Phosphatase 81 U/L (46-116) Total Protein 4.6 g/dL (6.4-8.2) Albumin 1.5 g/dL (3.4-5.0) Albumin/Globulin Ratio 0.5 (1.0-1.7) Laboratory Tests Test 02/26/19 05:20 Sodium Level 139 mmol/L (136-145) Potassium Level 4.1 mmol/L (3.5-5.1) Chloride Level 109 mmol/L (98-107) Carbon Dioxide Level 22 mmol/L (21-32) Anion Gap 8 (6-14) Blood Urea Nitrogen 19 mg/dL (8-26) Creatinine 1.1 mg/dL (0.7-1.3) Estimated GFR (Cockcroft-Gault) 63.9 BUN/Creatinine Ratio 17 (6-20) Glucose Level 134 mg/dL (70-99) Calcium Level 7.9 mg/dL (8.5-10.1) Phosphorus Level 2.8 mg/dL (2.6-4.7) Magnesium Level 2.1 mg/dL (1.8-2.4) Total Bilirubin 0.3 mg/dL (0.2-1.0) Aspartate Amino Transf (AST/SGOT) 29 U/L (15-37) Alanine Aminotransferase (ALT/SGPT) 25 U/L (16-63) Alkaline Phosphatase 81 U/L (46-116) Total Protein 4.6 g/dL (6.4-8.2) Albumin 1.5 g/dL (3.4-5.0) Albumin/Globulin Ratio 0.5 (1.0-1.7) LACHO OCONNOR APRN February 26, 2019 09:19
--- NOTE | 2019-02-26 09:49 | PDOC ---
PROGRESS NOTES Chief Complaint Chief Complaint Status post lap cholecystectomy, 02/14/19 Postop status cyst/fulfills tachycardia tachypnea AK I VMN Sepsis History CVA, hypertension, dyslipidemia and GERD on medication Atrial fibrillation with RVR History of Present Illness History of Present Illness Patient seen and examined Patient was well appearing in NAD with no new complaints Discussed w/ Nurse Awaiting GI imaging today CXR- showed worsening moderate bibasilar opacities Vitals Vitals Vital Signs Date Time Temp Pulse Resp B/P (MAP) Pulse Ox O2 Delivery O2 Flow Rate FiO2 02/26/19 08:00 Nasal Cannula 3.0 02/26/19 07:00 98.0 71 20 150/58 (88) 86 98.0 Physical Exam Physical Exam GENERAL: Sitting in the chair, relaxed appearance HEENT: Oral cavity clear, dry NECK: Supple, no JVP, no lymphadenopathy. LUNGS: Clear. HEART: S1, S2 regular. ABDOMEN: Obese, soft,NT, NICOLAS x [address], purulent drainage. Small incision approx sutures, clean EXTREMITIES: Bilat LE trace edema, no cyanosis SKIN: No rash NEUROLOGIC: Alert, responds appropriately RUE-PICC (02/22) clean General: Alert, Oriented X3, Cooperative, No acute distress Heart: Other (IRRR; tele AFIB with controlled rate) Lungs: Other (DECREASE BASES) Abdomen: Soft, Other (drain purulent, NICOLAS no drainage ) Extremities: Other (trace bialteral LE edema ) Skin: No rashes Labs LABS Laboratory Tests Test 02/26/19 05:20 Sodium Level 139 mmol/L (136-145) Potassium Level 4.1 mmol/L (3.5-5.1) Chloride Level 109 mmol/L (98-107) Carbon Dioxide Level 22 mmol/L (21-32) Anion Gap 8 (6-14) Blood Urea Nitrogen 19 mg/dL (8-26) Creatinine 1.1 mg/dL (0.7-1.3) Estimated GFR (Cockcroft-Gault) 63.9 BUN/Creatinine Ratio 17 (6-20) Glucose Level 134 mg/dL (70-99) Calcium Level 7.9 mg/dL (8.5-10.1) Phosphorus Level 2.8 mg/dL (2.6-4.7) Magnesium Level 2.1 mg/dL (1.8-2.4) Total Bilirubin 0.3 mg/dL (0.2-1.0) Aspartate Amino Transf (AST/SGOT) 29 U/L (15-37) Alanine Aminotransferase (ALT/SGPT) 25 U/L (16-63) Alkaline Phosphatase 81 U/L (46-116) Total Protein 4.6 g/dL (6.4-8.2) Albumin 1.5 g/dL (3.4-5.0) Albumin/Globulin Ratio 0.5 (1.0-1.7) Review of Systems Review of Systems Patient denies LANE Patient denies Dizziness Assessment and Plan Assessmemt and Plan Assessment: Status post lap cholecystectomy, 02/14/19 Postop status cyst/fulfills tachycardia tachypnea AK I VMN-creatinine 1.1 today Sepsis History CVA, hypertension, dyslipidemia and GERD on medication Atrial fibrillation with RVR - rate controlled Plan: Cardiac Monitoring Continue Antibiotics IV PPI TPN Restoril for insomnia Wound Care Labs PT/OT DVT ppx Comment Review of Relevant I have reviewed the following items timoteo (where applicable) has been applied. Labs Laboratory Tests Test 02/25/19 06:30 02/26/19 05:20 Sodium Level 139 mmol/L (136-145) 139 mmol/L (136-145) Potassium Level 3.8 mmol/L (3.5-5.1) 4.1 mmol/L (3.5-5.1) Chloride Level 107 mmol/L (98-107) 109 mmol/L (98-107) Carbon Dioxide Level 24 mmol/L (21-32) 22 mmol/L (21-32) Anion Gap 8 (6-14) 8 (6-14) Blood Urea Nitrogen 21 mg/dL (8-26) 19 mg/dL (8-26) Creatinine 1.2 mg/dL (0.7-1.3) 1.1 mg/dL (0.7-1.3) Estimated GFR (Cockcroft-Gault) 57.8 63.9 Glucose Level 128 mg/dL (70-99) 134 mg/dL (70-99) Calcium Level 7.7 mg/dL (8.5-10.1) 7.9 mg/dL (8.5-10.1) Phosphorus Level 2.6 mg/dL (2.6-4.7) 2.8 mg/dL (2.6-4.7) Magnesium Level 2.0 mg/dL (1.8-2.4) 2.1 mg/dL (1.8-2.4) BUN/Creatinine Ratio 17 (6-20) Total Bilirubin 0.3 mg/dL (0.2-1.0) Aspartate Amino Transf (AST/SGOT) 29 U/L (15-37) Alanine Aminotransferase (ALT/SGPT) 25 U/L (16-63) Alkaline Phosphatase 81 U/L (46-116) Total Protein 4.6 g/dL (6.4-8.2) Albumin 1.5 g/dL (3.4-5.0) Albumin/Globulin Ratio 0.5 (1.0-1.7) Laboratory Tests Test 02/26/19 05:20 Sodium Level 139 mmol/L (136-145) Potassium Level 4.1 mmol/L (3.5-5.1) Chloride Level 109 mmol/L (98-107) Carbon Dioxide Level 22 mmol/L (21-32) Anion Gap 8 (6-14) Blood Urea Nitrogen 19 mg/dL (8-26) Creatinine 1.1 mg/dL (0.7-1.3) Estimated GFR (Cockcroft-Gault) 63.9 BUN/Creatinine Ratio 17 (6-20) Glucose Level 134 mg/dL (70-99) Calcium Level 7.9 mg/dL (8.5-10.1) Phosphorus Level 2.8 mg/dL (2.6-4.7) Magnesium Level 2.1 mg/dL (1.8-2.4) Total Bilirubin 0.3 mg/dL (0.2-1.0) Aspartate Amino Transf (AST/SGOT) 29 U/L (15-37) Alanine Aminotransferase (ALT/SGPT) 25 U/L (16-63) Alkaline Phosphatase 81 U/L (46-116) Total Protein 4.6 g/dL (6.4-8.2) Albumin 1.5 g/dL (3.4-5.0) Albumin/Globulin Ratio 0.5 (1.0-1.7) Microbiology 02/17/19 Blood Culture - Final, Complete NO GROWTH AFTER 5 DAYS 02/17/19 Urine Culture - Final, Complete 02/17/19 Urine Culture Result 1 (PETERSON) - Final, Complete 02/22/19 Anaerobic/Aerobic Culture - Final, Complete 02/22/19 Anaerobic Culture Result 1 (PETERSON) - Final, Complete 02/22/19 Aerobic Culture - Final, Complete 02/22/19 Aerobic Culture Result 1 (PETESRON) - Final, Complete 02/22/19 Antimicrobic Susceptibility - Final, Complete 02/22/19 Gram Stain - Final, Complete 02/22/19 Gram Stain Result 1 (PETERSON) - Final, Complete 02/22/19 Gram Stain Result 2 (PETERSON) - Final, Complete Medications Current Medications Ondansetron HCl (Zofran) 4 mg PRN Q6HRS PRN IV NAUSEA/VOMITING; Start 02/14/19 at 07:00; Stop 02/14/19 at 20:00; Status DC Fentanyl Citrate (Fentanyl 2ml Vial) 25 mcg PRN Q5MIN PRN IV MILD PAIN Last administered on 02/14/19at 14:28; Start 02/14/19 at 07:00; Stop 02/14/19 at 20:00; Status DC Fentanyl Citrate (Fentanyl 2ml Vial) 50 mcg PRN Q5MIN PRN IV MODERATE TO SEVERE PAIN; Start 02/14/19 at 07:00; Stop 02/14/19 at 20:00; Status DC Morphine Sulfate (Morphine Sulfate) 1 mg PRN Q10MIN PRN IV SEVERE PAIN; Start 02/14/19 at 07:00; Stop 02/14/19 at 20:00; Status DC Ringer's Solution 1,000 ml @ 30 mls/hr Q24H IV Last administered on 02/14/19at 07:52; Start 02/14/19 at 07:00; Stop 02/14/19 at 18:59; Status DC Lidocaine HCl (Xylocaine-Mpf 1% 2ml Vial) 2 ml PRN 1X PRN ID PRIOR TO IV START; Start 02/14/19 at 07:00; Stop 02/14/19 at 20:00; Status DC Hydromorphone HCl (Dilaudid) 0.5 mg PRN Q10MIN PRN IV SEV PAIN, Second choice; Start 02/14/19 at 07:00; Stop 02/14/19 at 20:00; Status DC Prochlorperazine Edisylate (Compazine) 5 mg PACU PRN PRN IV NAUSEA, MRX1; Start 02/14/19 at 07:00; Stop 02/14/19 at 20:00; Status DC Cefazolin Sodium/ Dextrose 50 ml @ 100 mls/hr 1X PREOP PRN IV PRIOR TO PROCEDURE Last administered on 02/14/19at 11:21; Start 02/14/19 at 06:00; Stop 02/14/19 at 18:00; Status DC Propofol 20 ml @ As Directed STK-MED ONCE IV ; Start 02/14/19 at 08:17; Stop 02/14/19 at 08:18; Status DC Lidocaine HCl (Lidocaine Pf 2% Vial) 5 ml STK-MED ONCE .ROUTE ; Start 02/14/19 at 08:17; Stop 02/14/19 at 08:18; Status DC Ondansetron HCl (Zofran) 4 mg STK-MED ONCE .ROUTE ; Start 02/14/19 at 08:17; Stop 02/14/19 at 08:18; Status DC Dexamethasone Sodium Phosphate (Decadron) 4 mg STK-MED ONCE .ROUTE ; Start 02/14/19 at 08:17; Stop 02/14/19 at 08:18; Status DC Sevoflurane (Ultane) 60 ml STK-MED ONCE IH ; Start 02/14/19 at 08:17; Stop 02/14/19 at 08:18; Status DC Rocuronium [place] (Zemuron) 50 mg STK-MED ONCE .ROUTE ; Start 02/14/19 at 08:17; Stop 02/14/19 at 08:18; Status DC Fentanyl Citrate (Fentanyl 2ml Vial) 100 mcg STK-MED ONCE .ROUTE ; Start 02/14/19 at 08:39; Stop 02/14/19 at 08:40; Status DC Bupivacaine HCl/ Epinephrine Bitart (Sensorcain-Mpf Epi 0.5%-[id number]) 30 ml STK-MED ONCE .ROUTE Last administered on 02/14/19at 11:48; Start 02/14/19 at 10:01; Stop 02/14/19 at 11:02; Status DC Glucagon (Glucagen) 1 mg STK-MED ONCE .ROUTE ; Start 02/14/19 at 10:01; Stop 02/14/19 at 11:02; Status DC Iohexol (Omnipaque 300 Mg/ml) 100 ml STK-MED ONCE .ROUTE Last administered on 02/14/19at 11:48; Start 02/14/19 at 10:01; Stop 02/14/19 at 11:02; Status DC Cellulose (Surgicel Hemostat 4x8) 1 each STK-MED ONCE .ROUTE Last administered on 02/14/19 13:12; Start 02/14/19 at 10:01; Stop 02/14/19 at 11:02; Status DC Cellulose (Surgicel Hemostat 4x8) 1 each STK-MED ONCE .ROUTE Last administered on 02/14/19at 13:31; Start 02/14/19 at 11:19; Stop 02/14/19 at 12:19; Status DC Famotidine (Pepcid Vial) 20 mg STK-MED ONCE .ROUTE ; Start 02/14/19 at 13:14; Stop 02/14/19 at 13:15; Status DC Diphenhydramine HCl (Benadryl) 50 mg STK-MED ONCE .ROUTE ; Start 02/14/19 at 13:14; Stop 02/14/19 at 13:15; Status DC Rocuronium [place] (Zemuron) 50 mg STK-MED ONCE .ROUTE ; Start 02/14/19 at 13:14; Stop 02/14/19 at 13:15; Status DC Fentanyl Citrate (Fentanyl 2ml Vial) 100 mcg STK-MED ONCE .ROUTE ; Start 02/14/19 at 13:15; Stop 02/14/19 at 13:16; Status DC Cellulose (Surgicel Hemostat 4x8) 1 each STK-MED ONCE .ROUTE ; Start 02/14/19 at 12:33; Stop 02/14/19 at 13:33; Status DC Diphenhydramine HCl (Benadryl) 25 mg PRN Q6HRS PRN PO ITCHING Last administered on 02/23/19at 20:43; Start 02/14/19 at 14:00 Sodium Chloride (Normal Saline Flush) 3 ml QSHIFT PRN IV AFTER MEDS AND BLOOD DRAWS; Start 02/14/19 at 14:00 Potassium Chloride/Sodium Chloride 1,000 ml @ 80 mls/hr [id number] IV Last administered on 02/17/19at 06:02; Start 02/14/19 at 15:00; Stop 02/17/19 at 12:54; Status DC Dextrose (Dextrose 50%-Water Syringe) 12.5 gm PRN Q15MIN PRN IV SEE COMMENTS; Start 02/14/19 at 14:00 Acetaminophen/ Hydrocodone Bitart (Lortab 5/325) 1 tab PRN Q4HRS PRN PO MILD PAIN Last administered on 02/17/19 08:35; Start 02/14/19 at 14:00 Acetaminophen/ Hydrocodone Bitart (Lortab 5/325) 2 tab PRN Q4HRS PRN PO MODERATE PAIN, SEVERE PAIN Last administered on 02/17/19 03:22; Start 02/14/19 at 14:00 Hydromorphone HCl (Dilaudid) 1 mg PRN Q4HRS PRN IV PAIN Last administered on 02/23/19 09:46; Start 02/14/19 at 14:00; Stop 02/24/19 at 11:48; Status DC Docusate Sodium (Colace) 100 mg BID PO Last administered on 02/25/19 20:17; Start 02/14/19 at 21:00 Ondansetron HCl (Zofran) 4 mg PRN Q6HRS PRN IV NAUESA, 1ST CHOICE Last adm inistered on 02/19/19 04:09; Start 02/14/19 at 14:00; Stop 02/19/19 at 09:05; Status DC Atorvastatin Calcium (Lipitor) 40 mg QHS PO Last administered on 02/25/19 20:17; Start 02/14/19 at 21:00 Cyanocobalamin (Vitamin B-12) 1,000 mcg DAILY PO Last administered on 02/25/19 09:54; Start 02/15/19 at 09:00; Stop 02/25/19 at 18:56; Status DC Metoprolol Succinate (Toprol Xl) 25 mg DAILY PO Last administered on 02/20/19 07:53; Start 02/15/19 at 09:00; Stop 02/20/19 at 12:11; Status DC Tamsulosin HCl (Flomax) 0.4 mg DAILY PO Last administered on 02/25/19 09:54; Start 02/15/19 at 09:00 Losartan Potassium (Cozaar) 100 mg DAILY PO Last administered on 5/6/19at 09:55; Start 02/15/19 at 09:00 Fentanyl Citrate (Fentanyl 2ml Vial) 100 mcg STK-MED ONCE .ROUTE ; Start 02/14/19 at 14:26; Stop 02/14/19 at 14:27; Status DC Bupivacaine HCl/ Epinephrine Bitart (Sensorcain-Mpf Epi 0.5%-1:[id number]) 30 ml STK-MED ONCE .ROUTE ; Start 02/14/19 at 15:13; Stop 02/14/19 at 16:14; Status DC Bacitracin (Bacitracin) 50,000 unit STK-MED ONCE IRR Last administered on 02/14/19at 16:49; Start 02/14/19 at 15:14; Stop 02/14/19 at 16:15; Status DC Sodium Chloride (SODIUM CHLORIDE 20ml) 20 ml STK-MED ONCE IJ ; Start 02/14/19 at 15:15; Stop 02/14/19 at 16:15; Status DC Cellulose (Surgicel Hemostat 4x8) 3 each STK-MED ONCE TP Last administered on 02/14/19at 16:49; Start 02/14/19 at 16:49; Stop 02/14/19 at 16:55; Status DC Cellulose (Surgicel Hemostat 4x8) 4 each 1X ONCE TP ; Start 02/14/19 at 17:15; Stop 02/14/19 at 17:16; Status DC Cefazolin Sodium/ Dextrose (Ancef 2gm Premix) 2 gm STK-MED ONCE IV ; Start 02/14/19 at 11:00; Stop 02/15/19 at 13:02; Status DC Piperacillin Sod/ Tazobactam Sod 3.375 gm/Sodium Chloride 50 ml @ 100 mls/hr Q6HRS IV Last administered on 02/26/19at 04:59; Start 02/17/19 at 12:00 Sodium Chloride 1,000 ml @ 125 mls/hr Q8H IV Last administered on 02/22/19at 02:43; Start 02/17/19 at 13:00; Stop 02/22/19 at 10:28; Status DC Clopidogrel Bisulfate (Plavix) 75 mg DAILY PO Last administered on 02/25/19at 09:54; Start 02/17/19 at 14:00 Vitamin D (Vitamin D3) 2,000 unit DAILY PO Last administered on 02/25/19 09:54; Start 02/17/19 at 14:00; Stop 02/25/19 at 18:56; Status DC Multivitamins (Thera M Plus) 1 tab DAILY PO Last administered on 02/25/19 09:54; Start 02/17/19 at 14:00; Stop 02/25/19 at 18:57; Status DC Calcium Carbonate/ Glycine (Tums) 500 mg PRN AFTMEALHC PRN PO INDIGESTION Last administered on 02/18/19 22:25; Start 02/17/19 at 15:00 Acetaminophen (Tylenol) 650 mg PRN Q6HRS PRN PO fever Last administered on 02/17/19 23:50; Start 02/17/19 at 23:45; Stop 02/21/19 at 08:07; Status DC Sodium Chloride 500 ml @ 500 mls/hr 1X ONCE IV Last administered on 02/17/19 23:48; Start 02/18/19 at 00:00; Stop 02/18/19 at 00:59; Status DC Diltiazem HCl 125 mg/Dextrose 125 ml @ 5 mls/hr CONT PRN IV SEE I/O RECORD Last administered on 02/18/19 04:27; Start 02/18/19 at 04:15; Stop 02/18/19 at 16:09; Status DC Linezolid/Dextrose 300 ml @ 300 mls/hr Q12HR IV Last administered on 02/25/19 20:16; Start 02/18/19 at 09:00 Lactobacillus Rhamnosus (Culturelle) 1 cap BID PO Last administered on 02/25/19 20:17; Start 02/18/19 at 21:00 Diltiazem HCl (Cardizem 24hr Cd) 240 mg DAILY PO Last administered on 02/25/19 09:53; Start 02/18/19 at 12:30 Aspirin (Ecotrin) 81 mg DAILYWBKFT PO Last administered on 02/21/19 08:34; Start 02/18/19 at 16:15; Stop 02/22/19 at 16:16; Status DC Acetaminophen (Tylenol) 650 mg PRN Q6HRS PRN PO FEVER Last administered on 5/3/19at 21:39; Start 02/19/19 at 01:45 Acetaminophen (Tylenol Supp) 650 mg PRN Q6HRS PRN PA MILD PAIN/TEMP Last administered on 02/19/19at 02:18; Start 02/19/19 at 02:15 Norepinephrine Bitartrate 250 ml @ 1.875 mls/ hr CONT PRN IV SEE I/O RECORD; Start 02/19/19 at 07:30; Stop 02/23/19 at 11:38; Status DC Digoxin (Lanoxin) 250 mcg 1X ONCE IV Last administered on 02/19/19at 07:36; Start 02/19/19 at 07:30; Stop 02/19/19 at 07:31; Status DC Sodium Chloride 500 ml @ 500 mls/hr 1X ONCE IV Last administered on 02/19/19at 07:35; Start 02/19/19 at 07:30; Stop 02/19/19 at 08:29; Status DC Ondansetron HCl (Zofran) 4 mg Q6HRS IV Last administered on 02/20/19at 05:43; Start 02/19/19 at 12:00; Stop 02/20/19 at 10:56; Status DC Pantoprazole Sodium (Protonix) 40 mg BIDAC PO Last administered on 02/21/19 08:34; Start 02/19/19 at 16:30; Stop 02/21/19 at 15:18; Status DC Digoxin (Lanoxin) 250 mcg 1X ONCE IV Last administered on 02/19/19at 22:57; Start 02/19/19 at 23:00; Stop 02/19/19 at 23:01; Status DC Cellulose (Surgicel Hemostat 4x8) 1 each STK-MED ONCE .ROUTE ; Start 02/14/19 at 15:23; Stop 02/20/19 at 08:42; Status DC Cellulose (Surgicel Hemostat 4x8) 1 each STK-MED ONCE .ROUTE ; Start 02/14/19 at 15:50; Stop 02/20/19 at 08:42; Status DC Propofol 20 ml @ As Directed STK-MED ONCE IV ; Start 02/14/19 at 16:05; Stop 02/20/19 at 08:42; Status DC Famotidine (Pepcid Vial) 20 mg STK-MED ONCE .ROUTE ; Start 02/14/19 at 16:05; Stop 02/20/19 at 08:42; Status DC Lidocaine HCl (Lidocaine Pf 2% Vial) 5 ml STK-MED ONCE .ROUTE ; Start 02/14/19 at 16:05; Stop 02/20/19 at 08:42; Status DC Ondansetron HCl (Zofran) 4 mg STK-MED ONCE .ROUTE ; Start 02/14/19 at 16:05; Stop 02/20/19 at 08:42; Status DC Rocuronium [place] (Zemuron) 100 mg STK-MED ONCE .ROUTE ; Start 02/14/19 at 16:05; Stop 02/20/19 at 08:42; Status DC Fentanyl Citrate (Fentanyl 2ml Vial) 100 mcg STK-MED ONCE .ROUTE ; Start 02/14/19 at 16:06; Stop 02/20/19 at 08:42; Status DC Dexamethasone Sodium Phosphate (Decadron) 4 mg STK-MED ONCE .ROUTE ; Start 02/14/19 at 16:06; Stop 02/20/19 at 08:42; Status DC Neostigmine Methylsulfate (Neostigmine Methylsulfate) 5 mg STK-MED ONCE .ROUTE ; Start 02/14/19 at 17:26; Stop 02/20/19 at 08:42; Status DC Glycopyrrolate (Robinul) 1 mg STK-MED ONCE .ROUTE ; Start 02/14/19 at 17:26; Stop 02/20/19 at 08:42; Status DC Ondansetron HCl (Zofran) 4 mg PRN Q6HRS PRN IV NAUSEA/VOMITING; Start 02/20/19 at 10:54 Metoprolol Tartrate (Lopressor) 25 mg BID PO Last administered on 02/21/19at 20:44; Start 02/20/19 at 12:15; Stop 02/22/19 at 10:28; Status DC Ringer's Solution 1,000 ml @ 50 mls/hr Q20H IV Last administered on 02/21/19at 14:47; Start 02/21/19 at 07:00; Stop 02/21/19 at 18:59; Status DC Midazolam HCl (Versed) 2 mg PRN 1X PRN IV PRIOR TO PROCEDURE; Start 02/21/19 at 12:30; Stop 02/22/19 at 12:29; Status DC Fentanyl Citrate (Fentanyl 2ml Vial) 25 mcg PRN Q5MIN PRN IV X 2 DOSES FOR PAIN; Start 02/21/19 at 12:30; Stop 02/22/19 at 12:29; Status DC Fentanyl Citrate (Fentanyl 2ml Vial) 50 mcg PRN Q5MIN PRN IV X 2 DOSES FOR PAIN; Start 02/21/19 at 12:30; Stop 02/22/19 at 12:29; Status DC Ringer's Solution 1,000 ml @ 125 mls/hr Q8H IV Last administered on 02/21/19at 12:27; Start 02/21/19 at 12:27; Stop 02/22/19 at 00:26; Status DC Lidocaine HCl (Xylocaine-Mpf 1% 2ml Vial) 2 ml 1X PRN PRN ID IV START; Start 02/21/19 at 12:30; Stop 02/22/19 at 12:29; Status DC Pantoprazole Sodium 80 mg/ Sodium Chloride 100 ml @ 10 mls/hr Q10H IV Last administered on 02/26/19at 02:42; Start 02/21/19 at 15:30 Metoprolol Tartrate (Lopressor Vial) 5 mg Q6HRS IVP Last administered on 02/26/19at 05:23; Start 02/22/19 at 12:00 Lidocaine/Sodium Bicarbonate (Buffered Lidocaine 1%) 3 ml STK-MED ONCE .ROUTE ; Start 02/22/19 at 12:08; Stop 02/22/19 at 12:09; Status DC Midazolam HCl (Versed) 2 mg STK-MED ONCE .ROUTE ; Start 02/22/19 at 12:21; Stop 02/22/19 at 12:22; Status DC Fentanyl Citrate (Fentanyl 2ml Vial) 100 mcg STK-MED ONCE .ROUTE ; Start 02/22/19 at 12:21; Stop 02/22/19 at 12:22; Status DC Lidocaine/Sodium Bicarbonate (Buffered Lidocaine 1%) 3 ml 1X ONCE IJ Last administered on 02/22/19at 13:00; Start 02/22/19 at 12:30; Stop 02/22/19 at 12:31; Status DC Midazolam HCl (Versed) 2 mg 1X ONCE IV Last administered on 02/22/19at 13:01; Start 02/22/19 at 12:30; Stop 02/22/19 at 12:31; Status DC Fentanyl Citrate (Fentanyl 2ml Vial) 100 mcg 1X ONCE IV Last administered on 02/22/19 13:02; Start 02/22/19 at 12:30; Stop 02/22/19 at 12:31; Status DC Furosemide (Lasix) 40 mg 1X ONCE IVP Last administered on 02/22/19 16:20; Start 02/22/19 at 16:15; Stop 02/22/19 at 16:16; Status DC Hydralazine HCl (Apresoline Inj) 10 mg PRN Q4HRS PRN IVP ELEVATED BP, SEE COMMENTS; Start 02/22/19 at 16:15 Digoxin (Lanoxin) 250 mcg PRN DAILY PRN IV SEE COMMENTS; Start 02/22/19 at 16:15 Albumin Human 100 ml @ 100 mls/hr 1X ONCE IV Last administered on 02/22/19 16:20; Start 02/22/19 at 16:15; Stop 02/22/19 at 17:14; Status DC Aspirin (Aspirin) 150 mg DAILY PA Last administered on 02/25/19 19:17; Start 02/22/19 at 17:00 Info (Tpn Per Pharmacy) 1 each PRN DAILY PRN MC SEE COMMENTS Last administered on 02/25/19 15:21; Start 02/23/19 at 11:45 Sodium Chloride 90 meq/Potassium Chloride 70 meq/ Potassium Phosphate 13.6 mmol/Magnesium Sulfate 15 meq/ Calcium Gluconate 10 meq/ Multivitamins 10 ml/Chromium/ Copper/Manganese/ Seleni/Zn 1 ml/ Total Parenteral Nutrition/Amino Acids/Dextrose/ Fat Emulsion Intravenous 1,512 ml @ 63 mls/hr TPN CONT IV Last administered on 02/23/19 21:28; Start 02/23/19 at 22:00; Stop 02/24/19 at 21:59; Status DC Potassium Chloride/Water 50 ml @ 50 mls/hr Q1H IV Last administered on 02/23/19at 15:31; Start 02/23/19 at 15:00; Stop 02/23/19 at 16:59; Status DC Morphine Sulfate (Morphine Sulfate) 2 mg PRN Q2HR PRN IV PAIN; Start 02/24/19 at 12:00 Sodium Chloride 90 meq/Potassium Chloride 70 meq/ Potassium Phosphate 25 mmol/ Magnesium Sulfate 15 meq/Calcium Gluconate 10 meq/ Multivitamins 10 ml/Chromium/ Copper/Manganese/ Seleni/Zn 1 ml/ Total Parenteral Nutrition/Amino Acids/Dextrose/ Fat Emulsion Intravenous 1,512 ml @ 63 mls/hr TPN CONT IV Last administered on 02/24/19at 22:47; Start 02/24/19 at 22:00; Stop 02/25/19 at 21:59; Status DC Artificial Tears (Artificial Tears) 1 drop PRN BID PRN OU DRY EYE; Start 02/24/19 at 18:45 Temazepam (Restoril) 15 mg PRN QHS PRN PO INSOMNIA Last administered on 02/25/19at 20:17; Start 02/25/19 at 13:30 Sodium Chloride 90 meq/Potassium Chloride 70 meq/ Potassium Phosphate 25 mmol/ Magnesium Sulfate 15 meq/Calcium Gluconate 10 meq/ Multivitamins 10 ml/Chromium/ Copper/Manganese/ Seleni/Zn 1 ml/ Total Parenteral Nutrition/Amino Acids/Dextrose/ Fat Emulsion Intravenous 1,512 ml @ 63 mls/hr TPN CONT IV Last administered on 02/25/19at 21:06; Start 02/25/19 at 22:00; Stop 02/26/19 at 21:59 Vitamin D (Vitamin D3) 2,000 unit QHS PO ; Start 02/26/19 at 21:00 Cyanocobalamin (Vitamin B-12) 1,000 mcg QHS PO ; Start 02/26/19 at 21:00 Multivitamins (Thera M Plus) 1 tab QHS PO ; Start 02/26/19 at 21:00 Iohexol (Omnipaque 300 Mg/ml) 300 ml 1X ONCE PO ; Start 02/26/19 at 09:00; Stop 02/26/19 at 09:01; Status DC Active Scripts Active Atorvastatin Calcium 40 Mg Tablet 40 Mg PO QHS 30 Days Reported Flomax (Tamsulosin Hcl) 0.4 Mg Cap.er.24h 0.4 Mg PO DAILY Clopidogrel (Clopidogrel Bisulfate) 75 Mg Tablet 75 Mg PO DAILY Aspirin 81 Mg Tab.chew 1 Tab PO DAILY Vitamin B-12 (Cyanocobalamin (Vitamin B-12)) 1,000 Mcg Tablet 1 Tab PO DAILY Metoprolol Succinate ( Xl ) (Metoprolol Succinate) 25 Mg Tab.er.24h 1 Tab PO DAILY Losartan Potassium 100 Mg Tablet 100 Mg PO DAILY Multivitamins (Multivitamin) 1 Each Tablet 1 Tab PO DAILY Vitamin D (Cholecalciferol (Vitamin D3)) 2,000 Unit Capsule 1 Cap PO DAILY Vitals/I & O Vital Sign - Last 24 Hours 02/25/19 02/25/19 02/25/19 02/25/19 09:53 09:55 11:20 12:25 Temp 97.8 97.8 Pulse 108 108 119 119 Resp 19 B/P (MAP) 162/80 162/80 161/62 (95) 161/62 Pulse Ox 93 O2 Delivery Nasal Cannula O2 Flow Rate 2.0 02/25/19 02/25/19 02/25/19 02/25/19 15:21 17:06 19:12 19:44 Temp 97.4 98.3 97.4 98.3 Pulse 84 84 89 Resp 20 22 B/P (MAP) 135/62 (86) 135/62 150/72 (98) Pulse Ox 90 92 O2 Delivery Nasal Cannula Nasal Cannula Nasal Cannula O2 Flow Rate 2.0 2.0 3.0 02/25/19 02/25/19 02/26/19 02/26/19 23:23 23:27 03:21 05:23 Temp 98.8 97.5 98.8 97.5 Pulse 86 86 84 69 Resp 21 23 B/P (MAP) 199/69 (112) 199/69 150/62 (91) 176/66 Pulse Ox 90 90 O2 Delivery Nasal Cannula Nasal Cannula O2 Flow Rate 3.0 3.0 02/26/19 02/26/19 07:00 08:00 Temp 98.0 98.0 Pulse 71 Resp 20 B/P (MAP) 150/58 (88) Pulse Ox 86 O2 Delivery Nasal Cannula Nasal Cannula O2 Flow Rate 3.0 3.0 Intake and Output 02/25/19 02/25/19 02/26/19 14:59 22:59 06:59 Intake Total 350 ml 1849 ml 926 ml Output Total 30 ml 580 ml 730 ml Balance 320 ml 1269 ml 196 ml Nutrition Consultation Dietary Evaluation: Recommendations by RD: Increase Calorie Intake, Protein supplementation Comments: REC TPN per followin g dextrose, 90 g AA, 20 g lipid Continue w/TPN for nutrition needs until diet advanced and PO intake meeting >50% of nutrition needs Expected Outcomes/Goals: PO intake to meet >75% est needs - not met, new goal established New goal 02/25: TPN for nutrition needs while pt remains NPO/on bowel rest Malnutrition Findings: Food and Nutrition Intake (Sev: <50% est energy req 5days Weight Status: Appropriate BRI WARD K III DO February 26, 2019 09:49
[2019-02-26 11:00] VITALS: BP 158/55
[2019-02-26] MEDS ORDERED: BARIUM SULFATE 60% 355 ML SUSP PO ONE (11:15)
--- NOTE | 2019-02-26 11:54 | PDOC ---
Subjective: Subjective: Doing okay. Objective: Objective: Called by RN earlier - radiology requested pre-treatment for UGI w/ iodine allergy. Dr. Morgan d/w radiology - plans to proceed w/ UGI today with just a little contrast (?water soluble) - d/w RN. Vital Signs: Vital Signs Date Time Temp Pulse Resp B/P (MAP) Pulse Ox O2 Delivery O2 Flow Rate FiO2 02/26/19 11:00 97.7 76 18 158/55 (89) 91 Nasal Cannula 3.0 97.7 Labs: Laboratory Tests Test 02/26/19 05:20 Sodium Level 139 mmol/L Potassium Level 4.1 mmol/L Chloride Level 109 mmol/L Carbon Dioxide Level 22 mmol/L Anion Gap 8 Blood Urea Nitrogen 19 mg/dL Creatinine 1.1 mg/dL Estimated GFR (Cockcroft-Gault) 63.9 BUN/Creatinine Ratio 17 Glucose Level 134 mg/dL Calcium Level 7.9 mg/dL Phosphorus Level 2.8 mg/dL Magnesium Level 2.1 mg/dL Total Bilirubin 0.3 mg/dL Aspartate Amino Transf (AST/SGOT) 29 U/L Alanine Aminotransferase (ALT/SGPT) 25 U/L Alkaline Phosphatase 81 U/L Total Protein 4.6 g/dL Albumin 1.5 g/dL Albumin/Globulin Ratio 0.5 PE: GEN: NAD, up to chair LUNGS: NC HEART: RRR ABD: S/ND/NT NEURO/PSYCH: A & O 3 A/P: DU w/ edema/GOO and esophagitis -- Continue NPO for now and await UGI - after can resume pills w/ sips of water. MARU HOLCOMB February 26, 2019 11:54
[2019-02-26] MEDS: TPN PER PHARMACY MC PRN (12:36)
--- NOTE | 2019-02-26 12:38 | NUR ---
Pharmacy TPN Dosing Note S: RUDY POLK is a 83 year old M Currently receiving Central Continuous TPN started 02/23/19 B:Pertinent PMH: GASTRIC OUTLET OBSTRUCTION Height: 6 feet, 0 inches Weight: 100.476920 kg Current diet: NPO LABS: Sodium: 139 Potassium: 4.1 Chloride: 109 Calcium: 7.9 Corrected Calcium: 9.90 Magnesium: 2.1 CO2: 22 SCr: 1.1 Glucose: 134 Albumin: 1.5 AST: 29 ALT: 25 TPN FORMULA: TPN TYPE: Central Continuous AMINO ACIDS: 90 gm DEXTROSE: 250 gm LIPIDS: 20 gm SODIUM CHLORIDE: 90 mEq SODIUM ACETATE: mEq SODIUM PHOSPHATE: mmol POTASSIUM CHLORIDE: 70 mEq POTASSIUM ACETATE: mEq POTASSIUM PHOSPHATE: 25 mmol MAGNESIUM: 15 mEq CALCIUM: 10 mEq INSULIN: units MULTIPLE VITAMIN: 10 ml TRACE ELEMENTS: 1 ml(s) TPN PLAN: -increase macronutrients per retail project merchandiser recs -lytes stable, no change R: Continue TPN as written above. Will monitor electrolytes, glucose, and tolerance to TPN. REBEKA BAE RP, 02/26/19 [id number]
[2019-02-26 15:00] VITALS: BP 178/80
[2019-02-26] MEDS: CLOPIDOGREL BISULFATE 75 MG TABLET PO SCH (15:21)
[2019-02-26] MEDS: TAMSULOSIN 0.4 MG CAP.ER.24H. PO SCH (15:21)
[2019-02-26] MEDS: DOCUSATE SODIUM 100 MG CAPSULE. PO SCH ×2 (15:21→21:00)
[2019-02-26] MEDS: LACTOBACILLUS RHAMNOSUS GG 1 CAPSULE. PO SCH ×2 (15:21→21:00)
[2019-02-26] MEDS: LOSARTAN POTASSIUM 50 MG TABLET. PO SCH (15:24)
--- NOTE | 2019-02-26 15:25 | RAD ---
Upper GI-limited, 02/26/2019: HISTORY: Possible gastric outlet obstruction The study was performed utilizing liquid barium. 3.6 minutes of fluoroscopy time was utilized. 12 static and dynamic fluoroscopic sequence is were recorded. The exam was limited by the patient's poor mobility and the request to not overfill the GI tract with barium. There was no obstruction to flow of the barium through the cervical esophagus. There was one episode of deep laryngeal penetration without eliseo aspiration. This elicited a cough reflex. There is a small hiatal hernia. There is mild esophageal narrowing and mucosal irregularity at the level of the GE junction. This is likely inflammatory. Correlation with endoscopic findings is suggested. We did not attempt to distend the stomach with barium on this limited exam. There is mucosal thickening compatible with edema in the antral region. Contrast did readily flow into the duodenum without evidence of significant obstruction. Several moderate-sized duodenal diverticula and smaller jejunal diverticula were noted. A pigtail drainage catheter and a surgical drain are noted extending into the gallbladder fossa region. IMPRESSION: 1. Edematous folds in the antral region without evidence of significant gastric outlet obstruction. 2. Numerous small bowel diverticulum. 3. Small hiatal hernia with narrowing and mild mucosal irregularity at the GE junction level. 4. Intermittent deep laryngeal penetration of the thin liquid barium. Electronically signed by: Srinath Baer MD (02/26/2019 3:22 PM) [facility]
[2019-02-26 19:36] VITALS: BP 146/50
[2019-02-26] MEDS: CHOLECALCIFEROL (VITAMIN D3) 1,000 UNIT TABLET PO SCH (21:00)
[2019-02-26] MEDS: MULTIVITAMIN with MINERAL TABLET. PO SCH (21:00)
[2019-02-26] MEDS: CYANOCOBALAMIN (VITAMIN B-12) 1,000 MCG TABLET. PO SCH (21:00)
[2019-02-26] MEDS: ATORVASTATIN CALCIUM 40 MG TABLET. PO SCH (21:00)
[2019-02-26] MEDS ORDERED: AMINO ACID IV SCH ×10 (22:00)
[2019-02-26] MEDS ORDERED: [UNRECOGNIZED DRUG - OTHER] IV SCH ×10 (22:00)
[2019-02-26] MEDS ORDERED: TOTAL PARENTERAL NUTRITION IV SCH ×10 (22:00)
[2019-02-26] MEDS ORDERED: DEXTROSE 70% IV SCH ×10 (22:00)
[2019-02-26] MEDS: TEMAZEPAM 15 MG CAPSULE PO PRN (22:34)
[2019-02-26 23:26] VITALS: BP 136/56
[2019-02-27] VITALS (12 sets, daily range): BP systolic 128–170; BP diastolic 50–84
[2019-02-27] MEDS: METOPROLOL TARTRATE 5 MG/5 ML VIAL. IVP SCH ×4 (00:12→17:42)
[2019-02-27] MEDS: PIPERACILLIN/TAZOBACTAM 3.375 GM in IV NORMAL SALINE 50ML 50 ML IV SCH ×4 (00:18→17:44)
[2019-02-27] MEDS: PANTOPRAZOLE SODIUM IV DRIP 80 MG in IV NORMAL SALINE 100ML 100 ML IV SCH (01:40)
[2019-02-27 06:29] LABS: BASO # 0.1 x10^3/uL (0.0-0.2); BASO % 1 % (0-3); EOS # 0.5 x10^3/uL (0.0-0.7); EOS % 3 % (0-3); LYMPH # 1.6 x10^3/uL (1.0-4.8); LYMPH % 10 % (24-48); MEAN CORPUSCULAR HEMOGLOBIN 31 pg (25-35); MEAN CORPUSCULAR HGB CONC 33 g/dL (31-37); MEAN CORPUSCULAR VOLUME 94 fL (79-100); MONO # 1.1 x10^3/uL (0.0-1.1); MONO % 7 % (0-9); NEUT # 12.1 x10^3uL (1.8-7.7); NEUT % 79 % (31-73); PLATELET COUNT 404 x10^3/uL (140-400); RED BLOOD COUNT 2.15 x10^6/uL (4.30-5.70); RED CELL DISTRIBUTION WIDTH 15.9 % (11.5-14.5); WHITE BLOOD COUNT 15.3 x10^3/uL (4.0-11.0)
[2019-02-27 06:35] LABS: HEMATOCRIT 20.3 % (39.0-53.0); HEMOGLOBIN 6.7 g/dL (13.0-17.5)
[2019-02-27 06:41] LABS: CALCIUM 7.8 mg/dL (8.5-10.1); CREATININE 1.1 mg/dL (0.7-1.3); GFR 63.9; POTASSIUM 4.2 mmol/L (3.5-5.1)
--- NOTE | 2019-02-27 07:42 | PDOC ---
Infectious Disease Note Subjective: Subjective Pt says feels ok Comfortable, denies pain/N/V TPN No fevers/chills some sob and cough ROS: ROS Negative except for above. Vital Signs: Vital Signs Vital Signs Date Time Temp Pulse Resp B/P (MAP) Pulse Ox O2 Delivery O2 Flow Rate FiO2 02/27/19 05:49 90 165/68 02/27/19 03:09 98.1 18 98 Nasal Cannula 4.0 98.1 Physical Exam: PHYSICAL EXAM GENERAL: Sitting in the chair, relaxed appearance HEENT: Oral cavity clear, dry NECK: Supple, no JVP, no lymphadenopathy. LUNGS: Clear. HEART: S1, S2 regular. ABDOMEN: Obese, soft,NT, NICOLAS x [address], purulent drainage. Small incision approx sutures, clean EXTREMITIES: Bilat LE trace edema, no cyanosis SKIN: No rash NEUROLOGIC: Alert, responds appropriately RUE-PICC (02/22) clean Medications: Inpatient Meds: Current Medications Medications (Trade) Dose Ordered Sig/Zane Start Time Stop Time Status Last Admin Dose Admin Acetaminophen (Tylenol Supp) 650 mg PRN Q6HRS PRN 02/19/19 02:15 02/19/19 02:18 650 MG Acetaminophen (Tylenol) 650 mg PRN Q6HRS PRN 02/19/19 01:45 02/22/19 21:39 650 MG Acetaminophen/ Hydrocodone Bitart (Lortab 5/325) 2 tab PRN Q4HRS PRN 02/14/19 14:00 02/17/19 03:22 2 TAB Albumin Human 100 ml @ 100 mls/hr 1X ONCE 02/22/19 16:15 02/22/19 17:14 DC 02/22/19 16:20 100 MLS/HR Artificial Tears (Artificial Tears) 1 drop PRN BID PRN 02/24/19 18:45 Aspirin (Aspirin) 150 mg DAILY 02/22/19 17:00 02/25/19 19:17 150 MG Aspirin (Ecotrin) 81 mg [id number] 02/18/19 16:15 02/22/19 16:16 DC 02/21/19 08:34 81 MG Atorvastatin Calcium (Lipitor) 40 mg QHS 02/14/19 21:00 02/26/19 21:00 40 MG Bacitracin (Bacitracin) 50,000 unit STK-MED ONCE 02/14/19 15:14 02/14/19 16:15 DC 02/14/19 16:49 50,000 UNIT Barium Sulfate (Liquid E-Z Paque) 355 ml 1X ONCE 02/26/19 11:15 02/26/19 11:18 DC 02/26/19 11:15 355 ML Bupivacaine HCl/ Epinephrine Bitart (Sensorcain-Mpf Epi 0.5%-1:[id number]) 30 ml STK-MED ONCE 02/14/19 15:13 02/14/19 16:14 DC Calcium Carbonate/ Glycine (Tums) 500 mg PRN AFTMEALHC PRN 02/17/19 15:00 02/18/19 22:25 500 MG Cefazolin Sodium/ Dextrose (Ancef 2gm Premix) 2 gm STK-MED ONCE 02/14/19 11:00 02/15/19 13:02 DC Cellulose (Surgicel Hemostat 4x8) 1 each STK-MED ONCE 02/14/19 15:50 02/20/19 08:42 DC Clopidogrel Bisulfate (Plavix) 75 mg DAILY 02/17/19 14:00 02/26/19 15:21 75 MG Cyanocobalamin (Vitamin B-12) 1,000 mcg QHS 02/26/19 21:00 02/26/19 21:00 1,000 MCG Dexamethasone Sodium Phosphate (Decadron) 4 mg STK-MED ONCE 02/14/19 16:06 02/20/19 08:42 DC Dextrose (Dextrose 50%-Water Syringe) 12.5 gm PRN Q15MIN PRN 02/14/19 14:00 Digoxin (Lanoxin) 250 mcg PRN DAILY PRN 02/22/19 16:15 Diltiazem HCl (Cardizem 24hr Cd) 240 mg DAILY 02/18/19 12:30 02/26/19 15:24 240 MG Diltiazem HCl 125 mg/Dextrose 125 ml @ 5 mls/hr CONT PRN 02/18/19 04:15 02/18/19 16:09 DC 02/18/19 04:27 5 MLS/HR Diphenhydramine HCl (Benadryl) 25 mg PRN Q6HRS PRN 02/14/19 14:00 02/23/19 20:43 25 MG Docusate Sodium (Colace) 100 mg BID 02/14/19 21:00 02/26/19 21:00 100 MG Famotidine (Pepcid Vial) 20 mg STK-MED ONCE 02/14/19 16:05 02/20/19 08:42 DC Fentanyl Citrate (Fentanyl 2ml Vial) 100 mcg 1X ONCE 02/22/19 12:30 02/22/19 12:31 DC 02/22/19 13:02 50 MCG Furosemide (Lasix) 40 mg 1X ONCE 02/22/19 16:15 02/22/19 16:16 DC 02/22/19 16:20 40 MG Glucagon (Glucagen) 1 mg STK-MED ONCE 02/14/19 10:01 02/14/19 11:02 DC Glycopyrrolate (Robinul) 1 mg STK-MED ONCE 02/14/19 17:26 02/20/19 08:42 DC Hydralazine HCl (Apresoline Inj) 10 mg PRN Q4HRS PRN 02/22/19 16:15 Hydromorphone HCl (Dilaudid) 1 mg PRN Q4HRS PRN 02/14/19 14:00 02/24/19 11:48 DC 02/23/19 09:46 1 MG Info (Tpn Per Pharmacy) 1 each PRN DAILY PRN 02/23/19 11:45 02/26/19 12:36 1 EACH Iohexol (Omnipaque 300 Mg/ml) 300 ml 1X ONCE 02/26/19 09:00 02/26/19 09:01 DC Lactobacillus Rhamnosus (Culturelle) 1 cap BID 02/18/19 21:00 02/26/19 21:00 1 CAP Lidocaine HCl (Lidocaine Pf 2% Vial) 5 ml STK-MED ONCE 02/14/19 16:05 02/20/19 08:42 DC Lidocaine HCl (Xylocaine-Mpf 1% 2ml Vial) 2 ml 1X PRN PRN 02/21/19 12:30 02/22/19 12:29 DC Lidocaine/Sodium Bicarbonate (Buffered Lidocaine 1%) 3 ml 1X ONCE 02/22/19 12:30 02/22/19 12:31 DC 02/22/19 13:00 6 ML Linezolid/Dextrose 300 ml @ 300 mls/hr Q12HR 02/18/19 09:00 02/26/19 20:59 300 MLS/HR Losartan Potassium (Cozaar) 100 mg DAILY 02/15/19 09:00 02/26/19 15:24 100 MG Metoprolol Succinate (Toprol Xl) 25 mg DAILY 02/15/19 09:00 02/20/19 12:11 DC 02/20/19 07:53 25 MG Metoprolol Tartrate (Lopressor Vial) 5 mg Q6HRS 02/22/19 12:00 02/27/19 05:49 5 MG Metoprolol Tartrate (Lopressor) 25 mg BID 02/20/19 12:15 02/22/19 10:28 DC 02/21/19 20:44 25 MG Midazolam HCl (Versed) 2 mg 1X ONCE 02/22/19 12:30 02/22/19 12:31 DC 02/22/19 13:01 1 MG Morphine Sulfate (Morphine Sulfate) 2 mg PRN Q2HR PRN 02/24/19 12:00 Multivitamins (Thera M Plus) 1 tab QHS 02/26/19 21:00 02/26/19 21:00 1 TAB Neostigmine Methylsulfate (Neostigmine Methylsulfate) 5 mg STK-MED ONCE 02/14/19 17:26 02/20/19 08:42 DC Norepinephrine Bitartrate 250 ml @ 1.875 mls/ hr CONT PRN 02/19/19 07:30 02/23/19 11:38 DC Ondansetron HCl (Zofran) 4 mg PRN Q6HRS PRN 02/20/19 10:54 Pantoprazole Sodium (Protonix) 40 mg BIDAC 02/19/19 16:30 02/21/19 15:18 DC 02/21/19 08:34 40 MG Pantoprazole Sodium 80 mg/ Sodium Chloride 100 ml @ 10 mls/hr Q10H 02/21/19 15:30 02/27/19 01:40 10 MLS/HR Piperacillin Sod/ Tazobactam Sod 3.375 gm/Sodium Chloride 50 ml @ 100 mls/hr Q6HRS 02/17/19 12:00 02/27/19 05:49 100 MLS/HR Potassium Chloride/Sodium Chloride 1,000 ml @ 80 mls/hr [id number] 02/14/19 15:00 02/17/19 12:54 DC 02/17/19 06:02 80 MLS/HR Potassium Chloride/Water 50 ml @ 50 mls/hr Q1H 02/23/19 15:00 02/23/19 16:59 DC 02/23/19 15:31 50 MLS/HR Prochlorperazine Edisylate (Compazine) 5 mg PACU PRN PRN 02/14/19 07:00 02/14/19 20:00 DC Propofol 20 ml @ As Directed STK-MED ONCE 02/14/19 16:05 02/20/19 08:42 DC Ringer's Solution 1,000 ml @ 125 mls/hr Q8H 02/21/19 12:27 02/22/19 00:26 DC 02/21/19 12:27 125 MLS/HR Rocuronium Homer (Zemuron) 100 mg STK-MED ONCE 02/14/19 16:05 02/20/19 08:42 DC Sevoflurane (Ultane) 60 ml STK-MED ONCE 02/14/19 08:17 02/14/19 08:18 DC Sodium Chloride (Normal Saline Flush) 3 ml QSHIFT PRN 02/14/19 14:00 Sodium Chloride (SODIUM CHLORIDE 20ml) 20 ml STK-MED ONCE 02/14/19 15:15 02/14/19 16:15 DC Sodium Chloride 90 meq/Potassium Chloride 70 meq/ Potassium Phosphate 13.6 mmol/Magnesium Sulfate 15 meq/ Calcium Gluconate 10 meq/ Multivitamins 10 ml/Chromium/ Copper/Manganese/ Seleni/Zn 1 ml/ Total Parenteral Nutrition/Amino Acids/Dextrose/ Fat Emulsion Intravenous 1,512 ml @ 63 mls/hr TPN CONT 02/23/19 22:00 02/24/19 21:59 DC 02/23/19 21:28 63 MLS/HR Sodium Chloride 90 meq/Potassium Chloride 70 meq/ Potassium Phosphate 25 mmol/ Magnesium Sulfate 15 meq/Calcium Gluconate 10 meq/ Multivitamins 10 ml/Chromium/ Copper/Manganese/ Seleni/Zn 1 ml/ Total Parenteral Nutrition/Amino Acids/Dextrose/ Fat Emulsion Intravenous 1,512 ml @ 63 mls/hr TPN CONT 02/26/19 22:00 02/27/19 21:59 02/26/19 22:36 63 MLS/HR Tamsulosin HCl (Flomax) 0.4 mg DAILY 02/15/19 09:00 02/26/19 15:21 0.4 MG Temazepam (Restoril) 15 mg PRN QHS PRN 02/25/19 13:30 02/26/19 22:34 15 MG Vitamin D (Vitamin D3) 2,000 unit QHS 02/26/19 21:00 02/26/19 21:00 2,000 UNIT Labs: Lab Laboratory Tests Test 02/27/19 06:00 White Blood Count 15.3 x10^3/uL (4.0-11.0) Red Blood Count 2.15 x10^6/uL (4.30-5.70) Hemoglobin 6.7 g/dL (13.0-17.5) Hematocrit 20.3 % (39.0-53.0) Mean Corpuscular Volume 94 fL (79-100) Mean Corpuscular Hemoglobin 31 pg (25-35) Mean Corpuscular Hemoglobin Concent 33 g/dL (31-37) Red Cell Distribution Width 15.9 % (11.5-14.5) Platelet Count 404 x10^3/uL (140-400) Neutrophils (%) (Auto) 79 % (31-73) Lymphocytes (%) (Auto) 10 % (24-48) Monocytes (%) (Auto) 7 % (0-9) Eosinophils (%) (Auto) 3 % (0-3) Basophils (%) (Auto) 1 % (0-3) Neutrophils # (Auto) 12.1 x10^3uL (1.8-7.7) Lymphocytes # (Auto) 1.6 x10^3/uL (1.0-4.8) Monocytes # (Auto) 1.1 x10^3/uL (0.0-1.1) Eosinophils # (Auto) 0.5 x10^3/uL (0.0-0.7) Basophils # (Auto) 0.1 x10^3/uL (0.0-0.2) Sodium Level 137 mmol/L (136-145) Potassium Level 4.2 mmol/L (3.5-5.1) Chloride Level 107 mmol/L (98-107) Carbon Dioxide Level 22 mmol/L (21-32) Anion Gap 8 (6-14) Blood Urea Nitrogen 20 mg/dL (8-26) Creatinine 1.1 mg/dL (0.7-1.3) Estimated GFR (Cockcroft-Gault) 63.9 Glucose Level 131 mg/dL (70-99) Calcium Level 7.8 mg/dL (8.5-10.1) Objective: Assessment: Fever,resolved Leukocytosis Anemia s/p RBC s/p CT-guided drainage, gallbladder fossa fluid collection, 02/22. 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 Hyperlipidemia. Atrial fibrillation Pulm infiltrates/effusion likely venous congestion Plan: Plan of Care cont Zosyn(02/17) DC Zyvox Probiotics drain management per Surgery Upper GI done,still has edema ,no obstruction PICC maintenance care PT/OT Monitor labs D/W and RN NED OPWELL MD February 27, 2019 07:42
--- NOTE | 2019-02-27 09:08 | PDOC ---
PULMONARY PROGRESS NOTES Subjective PT MORE SOA Vitals Vital Signs Date Time Temp Pulse Resp B/P (MAP) Pulse Ox O2 Delivery O2 Flow Rate FiO2 02/27/19 07:51 97.5 71 18 128/56 (80) 97 Nasal Cannula 4.0 97.5 ROS: No Nausea, No Chest Pain, No Increase Cough General: Alert, No acute distress Lungs: Other (DECREASE BASES) Cardiovascular: S1, S2 Abdomen: Soft Neuro Exam: Alert Extremities: Other (1+EDEMA) Skin: Warm Labs Laboratory Tests Test 02/26/19 05:20 02/27/19 06:00 02/27/19 08:00 Sodium Level 139 mmol/L (136-145) 137 mmol/L (136-145) Potassium Level 4.1 mmol/L (3.5-5.1) 4.2 mmol/L (3.5-5.1) Chloride Level 109 mmol/L (98-107) 107 mmol/L (98-107) Carbon Dioxide Level 22 mmol/L (21-32) 22 mmol/L (21-32) Anion Gap 8 (6-14) 8 (6-14) Blood Urea Nitrogen 19 mg/dL (8-26) 20 mg/dL (8-26) Creatinine 1.1 mg/dL (0.7-1.3) 1.1 mg/dL (0.7-1.3) Estimated GFR (Cockcroft-Gault) 63.9 63.9 BUN/Creatinine Ratio 17 (6-20) Glucose Level 134 mg/dL (70-99) 131 mg/dL (70-99) Calcium Level 7.9 mg/dL (8.5-10.1) 7.8 mg/dL (8.5-10.1) Phosphorus Level 2.8 mg/dL (2.6-4.7) Magnesium Level 2.1 mg/dL (1.8-2.4) Total Bilirubin 0.3 mg/dL (0.2-1.0) Aspartate Amino Transf (AST/SGOT) 29 U/L (15-37) Alanine Aminotransferase (ALT/SGPT) 25 U/L (16-63) Alkaline Phosphatase 81 U/L (46-116) Total Protein 4.6 g/dL (6.4-8.2) Albumin 1.5 g/dL (3.4-5.0) Albumin/Globulin Ratio 0.5 (1.0-1.7) White Blood Count 15.3 x10^3/uL (4.0-11.0) Red Blood Count 2.15 x10^6/uL (4.30-5.70) Hemoglobin 6.7 g/dL (13.0-17.5) Hematocrit 20.3 % (39.0-53.0) Mean Corpuscular Volume 94 fL (79-100) Mean Corpuscular Hemoglobin 31 pg (25-35) Mean Corpuscular Hemoglobin Concent 33 g/dL (31-37) Red Cell Distribution Width 15.9 % (11.5-14.5) Platelet Count 404 x10^3/uL (140-400) Neutrophils (%) (Auto) 79 % (31-73) Lymphocytes (%) (Auto) 10 % (24-48) Monocytes (%) (Auto) 7 % (0-9) Eosinophils (%) (Auto) 3 % (0-3) Basophils (%) (Auto) 1 % (0-3) Neutrophils # (Auto) 12.1 x10^3uL (1.8-7.7) Lymphocytes # (Auto) 1.6 x10^3/uL (1.0-4.8) Monocytes # (Auto) 1.1 x10^3/uL (0.0-1.1) Eosinophils # (Auto) 0.5 x10^3/uL (0.0-0.7) Basophils # (Auto) 0.1 x10^3/uL (0.0-0.2) Glucose (Fingerstick) 111 mg/dL (70-99) Laboratory Tests Test 02/27/19 06:00 02/27/19 08:00 White Blood Count 15.3 x10^3/uL (4.0-11.0) Red Blood Count 2.15 x10^6/uL (4.30-5.70) Hemoglobin 6.7 g/dL (13.0-17.5) Hematocrit 20.3 % (39.0-53.0) Mean Corpuscular Volume 94 fL (79-100) Mean Corpuscular Hemoglobin 31 pg (25-35) Mean Corpuscular Hemoglobin Concent 33 g/dL (31-37) Red Cell Distribution Width 15.9 % (11.5-14.5) Platelet Count 404 x10^3/uL (140-400) Neutrophils (%) (Auto) 79 % (31-73) Lymphocytes (%) (Auto) 10 % (24-48) Monocytes (%) (Auto) 7 % (0-9) Eosinophils (%) (Auto) 3 % (0-3) Basophils (%) (Auto) 1 % (0-3) Neutrophils # (Auto) 12.1 x10^3uL (1.8-7.7) Lymphocytes # (Auto) 1.6 x10^3/uL (1.0-4.8) Monocytes # (Auto) 1.1 x10^3/uL (0.0-1.1) Eosinophils # (Auto) 0.5 x10^3/uL (0.0-0.7) Basophils # (Auto) 0.1 x10^3/uL (0.0-0.2) Sodium Level 137 mmol/L (136-145) Potassium Level 4.2 mmol/L (3.5-5.1) Chloride Level 107 mmol/L (98-107) Carbon Dioxide Level 22 mmol/L (21-32) Anion Gap 8 (6-14) Blood Urea Nitrogen 20 mg/dL (8-26) Creatinine 1.1 mg/dL (0.7-1.3) Estimated GFR (Cockcroft-Gault) 63.9 Glucose Level 131 mg/dL (70-99) Calcium Level 7.8 mg/dL (8.5-10.1) Glucose (Fingerstick) 111 mg/dL (70-99) Medications Active Scripts Medications Dose Route/Sig Max Daily Dose Days Date Category Flomax (Tamsulosin Hcl) 0.4 Mg Cap.er.24h 0.4 Mg PO DAILY 02/13/19 Reported Clopidogrel (Clopidogrel Bisulfate) 75 Mg Tablet 75 Mg PO DAILY 02/13/19 Reported Aspirin 81 Mg Tab.chew 1 Tab PO DAILY 02/13/19 Reported Vitamin B-12 (Cyanocobalamin (Vitamin B-12)) 1,000 Mcg Tablet 1 Tab PO DAILY 12/25/18 Reported Metoprolol Succinate ( Xl ) (Metoprolol Succinate) 25 Mg Tab.er.24h 1 Tab PO DAILY 12/25/18 Reported Losartan Potassium 100 Mg Tablet 100 Mg PO DAILY 12/25/18 Reported Atorvastatin Calcium 40 Mg Tablet 40 Mg PO QHS 30 06/27/17 Rx Multivitamins (Multivitamin) 1 Each Tablet 1 Tab PO DAILY 08/12/15 Reported Vitamin D (Cholecalciferol (Vitamin D3)) 2,000 Unit Capsule 1 Cap PO DAILY 08/12/15 Reported Impression . IMPRESSION: 1. Expected hypoxemic respiratory failure. 2. Status post laparoscopic cholecystectomy with cholangiogram. 3. Status post exploratory laparotomy for hemoperitoneum on 02/14. 4. Abnormal x-ray compatible with atelectasis and effusion, suspect related to intra-abdominal inflammation and possible infection.REPEAT CXR TODAY 5. Leukocytosis. 6. History of cerebrovascular accident, hypertension 7. Hyperlipidemia. 8. Transient atrial fibrillation. 9. Acute blood loss anemia 02/20 Impression: 1. There is a air/ fluid collection identified in the gallbladder fossa region measuring 8.2 x 4.7 cm. Differential includes abscess or focal biloma, if there has been a recent cholecystectomy. A HIDA scan may be helpful. A drain tubing is identified in the gallbladder fossa region. 2. Punctate foci of air identified in the right upper quadrant of the abdomen with surrounding inflammatory fat stranding probably secondary to recent surgery. Correlate clinically. 3. Bibasilar lung consolidation changes likely pneumonia or atelectasis with collapse and consolidation of the right middle lobe of the lung. Bilateral pleural effusions , right greater than left. 4. Mild thickened appearance of the wall of the colon throughout could be due to nondistention or mild colitis. Plan . TRANSFUSE PORTABLE CXR MAY NEED LASIX DIET PER SURGERY WILL CONTINUE SUPPORT ANTIBX PER ID FOLLOW SURGERY INPUT UMA NARANJO MD February 27, 2019 09:08
[2019-02-27] MEDS: TAMSULOSIN 0.4 MG CAP.ER.24H. PO SCH (09:09)
[2019-02-27] MEDS: CALCIUM CARBONATE 500 MG TAB.CHEW PO PRN (09:09)
[2019-02-27] MEDS: ASPIRIN RECTAL 300 MG SUPP. PR SCH (09:10)
[2019-02-27] MEDS: CLOPIDOGREL BISULFATE 75 MG TABLET PO SCH (09:10)
[2019-02-27] MEDS: DOCUSATE SODIUM 100 MG CAPSULE. PO SCH ×2 (09:13→21:12)
[2019-02-27] MEDS: LOSARTAN POTASSIUM 50 MG TABLET. PO SCH (09:13)
--- NOTE | 2019-02-27 11:25 | PDOC ---
Subjective: Subjective: Doing okay, wants to know test results. Objective: Objective: Note transfusion ordered. Vital Signs: Vital Signs Date Time Temp Pulse Resp B/P (MAP) Pulse Ox O2 Delivery O2 Flow Rate FiO2 02/27/19 11:04 97.8 86 16 170/72 (104) 95 Nasal Cannula 4.0 97.8 Labs: Laboratory Tests Test 02/27/19 06:00 02/27/19 08:00 White Blood Count 15.3 x10^3/uL Red Blood Count 2.15 x10^6/uL Hemoglobin 6.7 g/dL Hematocrit 20.3 % Mean Corpuscular Volume 94 fL Mean Corpuscular Hemoglobin 31 pg Mean Corpuscular Hemoglobin Concent 33 g/dL Red Cell Distribution Width 15.9 % Platelet Count 404 x10^3/uL Neutrophils (%) (Auto) 79 % Lymphocytes (%) (Auto) 10 % Monocytes (%) (Auto) 7 % Eosinophils (%) (Auto) 3 % Basophils (%) (Auto) 1 % Neutrophils # (Auto) 12.1 x10^3uL Lymphocytes # (Auto) 1.6 x10^3/uL Monocytes # (Auto) 1.1 x10^3/uL Eosinophils # (Auto) 0.5 x10^3/uL Basophils # (Auto) 0.1 x10^3/uL Sodium Level 137 mmol/L Potassium Level 4.2 mmol/L Chloride Level 107 mmol/L Carbon Dioxide Level 22 mmol/L Anion Gap 8 Blood Urea Nitrogen 20 mg/dL Creatinine 1.1 mg/dL Estimated GFR (Cockcroft-Gault) 63.9 Glucose Level 131 mg/dL Calcium Level 7.8 mg/dL Glucose (Fingerstick) 111 mg/dL Imaging: UGI 02/26 IMPRESSION: 1. Edematous folds in the antral region without evidence of significant gastric outlet obstruction. 2. Numerous small bowel diverticulum. 3. Small hiatal hernia with narrowing and mild mucosal irregularity at the GE junction level. 4. Intermittent deep laryngeal penetration of the thin liquid barium. PE: GEN: NAD - walking pleitez w/ therapy LUNGS: NC HEART: RRR ABD: soft NEURO/PSYCH: A & O 3 OTHER: dark brown liquid stool in commode - not melena A/P: DU w/ edema/GOO and esophagitis - UGI as above w/o significant GOO Anemia - no obvious bleeding -- Aspiration noted on UGI - will ask RESIDENT C[facility] PROVIDER to see - okay for their recommended diet per GI. Will change to PO PPI. MARU HOLCOMB February 27, 2019 11:25
[2019-02-27] MEDS: LACTOBACILLUS RHAMNOSUS GG 1 CAPSULE. PO SCH ×2 (12:28→21:12)
[2019-02-27] MEDS: TPN PER PHARMACY MC PRN (12:28)
--- NOTE | 2019-02-27 12:29 | NUR ---
Pharmacy TPN Dosing Note S: GIAMamiRUDY Flores is a 83 year old M Currently receiving Central Continuous TPN started 02/23/19 B:Pertinent PMH: GASTRIC OUTLET OBSTRUCTION Height: 6 feet, 0 inches Weight: 103.694774 kg Current diet: NPO LABS: Sodium: 137 Potassium: 4.2 Chloride: 107 Calcium: 7.8 Corrected Calcium: 9.80 Magnesium: 2.1 CO2: 22 SCr: 1.1 Glucose: 131 Albumin: 1.5 AST: 29 ALT: 25 TPN FORMULA: TPN TYPE: Central Continuous AMINO ACIDS: 90 gm DEXTROSE: 250 gm LIPIDS: 20 gm SODIUM CHLORIDE: 90 mEq SODIUM ACETATE: mEq SODIUM PHOSPHATE: mmol POTASSIUM CHLORIDE: 70 mEq POTASSIUM ACETATE: mEq POTASSIUM PHOSPHATE: 25 mmol MAGNESIUM: 15 mEq CALCIUM: 10 mEq INSULIN: units MULTIPLE VITAMIN: 10 ml TRACE ELEMENTS: 1 ml(s) TPN PLAN: -swallow study ordered for today -lytes stable, no change -labs in the am R: Continue TPN as written above. Will monitor electrolytes, glucose, and tolerance to TPN. REBEKA BAE RP, 02/27/19 [id number]
--- NOTE | 2019-02-27 13:40 | PDOC ---
[facility] PROGRESS NOTE Chief Complaint Chief Complaint Status post lap cholecystectomy, 02/14/19 Postop status cyst/fulfills tachycardia tachypnea AK I VMN Sepsis History CVA, hypertension, dyslipidemia and GERD on medication Atrial fibrillation with RVR History of Present Illness History of Present Illness Patient seen and examined Patient was well appearing in NAD with no new complaints Discussed w/ Nurse Upper GI series showed no gastric outlet obstruction CXR- showed worsening moderate bibasilar opacities Vitals Vitals Vital Signs Date Time Temp Pulse Resp B/P (MAP) Pulse Ox O2 Delivery O2 Flow Rate FiO2 02/27/19 12:40 97.6 71 16 152/61 97.6 02/27/19 11:04 95 Nasal Cannula 4.0 Physical Exam Physical Exam GENERAL: Sitting in the chair, relaxed appearance HEENT: Oral cavity clear, dry NECK: Supple, no JVP, no lymphadenopathy. LUNGS: Clear. HEART: S1, S2 regular. ABDOMEN: Obese, soft,NT, NICOLAS x [address], purulent drainage. Small incision approx sutures, clean EXTREMITIES: Bilat LE trace edema, no cyanosis SKIN: No rash NEUROLOGIC: Alert, responds appropriately RUE-PICC (02/22) clean General: Alert, Oriented X3, Cooperative, No acute distress Heart: Other (IRRR; tele AFIB with controlled rate) Lungs: Other (DECREASE BASES) Abdomen: Soft, Other (drain purulent, NICOLAS no drainage ) Extremities: Other (trace bialteral LE edema ) Skin: No rashes Labs LABS Laboratory Tests Test 02/27/19 06:00 02/27/19 08:00 02/27/19 11:56 White Blood Count 15.3 x10^3/uL (4.0-11.0) Red Blood Count 2.15 x10^6/uL (4.30-5.70) Hemoglobin 6.7 g/dL (13.0-17.5) Hematocrit 20.3 % (39.0-53.0) Mean Corpuscular Volume 94 fL (79-100) Mean Corpuscular Hemoglobin 31 pg (25-35) Mean Corpuscular Hemoglobin Concent 33 g/dL (31-37) Red Cell Distribution Width 15.9 % (11.5-14.5) Platelet Count 404 x10^3/uL (140-400) Neutrophils (%) (Auto) 79 % (31-73) Lymphocytes (%) (Auto) 10 % (24-48) Monocytes (%) (Auto) 7 % (0-9) Eosinophils (%) (Auto) 3 % (0-3) Basophils (%) (Auto) 1 % (0-3) Neutrophils # (Auto) 12.1 x10^3uL (1.8-7.7) Lymphocytes # (Auto) 1.6 x10^3/uL (1.0-4.8) Monocytes # (Auto) 1.1 x10^3/uL (0.0-1.1) Eosinophils # (Auto) 0.5 x10^3/uL (0.0-0.7) Basophils # (Auto) 0.1 x10^3/uL (0.0-0.2) Sodium Level 137 mmol/L (136-145) Potassium Level 4.2 mmol/L (3.5-5.1) Chloride Level 107 mmol/L (98-107) Carbon Dioxide Level 22 mmol/L (21-32) Anion Gap 8 (6-14) Blood Urea Nitrogen 20 mg/dL (8-26) Creatinine 1.1 mg/dL (0.7-1.3) Estimated GFR (Cockcroft-Gault) 63.9 Glucose Level 131 mg/dL (70-99) Calcium Level 7.8 mg/dL (8.5-10.1) Glucose (Fingerstick) 111 mg/dL (70-99) 121 mg/dL (70-99) Review of Systems Review of Systems Patient denies LANE Patient denies hand tremulations Assessment and Plan Assessmemt and Plan Assessment: Status post lap cholecystectomy, 02/14/19 Postop status cyst/fulfills tachycardia tachypnea AK I VMN-creatinine 1.1 today Sepsis History CVA, hypertension, dyslipidemia and GERD on medication Atrial fibrillation with RVR - rate controlled Plan: Cardiac Monitoring Antibiotics- Zosyn Blood transfusion IV PPI TPN Rest[facility] Labs PT/OT DVT ppx Comment Review of Relevant I have reviewed the following items timoteo (where applicable) has been applied. Labs Laboratory Tests Test 02/26/19 05:20 02/27/19 06:00 02/27/19 08:00 02/27/19 11:56 Sodium Level 139 mmol/L (136-145) 137 mmol/L (136-145) Potassium Level 4.1 mmol/L (3.5-5.1) 4.2 mmol/L (3.5-5.1) Chloride Level 109 mmol/L (98-107) 107 mmol/L (98-107) Carbon Dioxide Level 22 mmol/L (21-32) 22 mmol/L (21-32) Anion Gap 8 (6-14) 8 (6-14) Blood Urea Nitrogen 19 mg/dL (8-26) 20 mg/dL (8-26) Creatinine 1.1 mg/dL (0.7-1.3) 1.1 mg/dL (0.7-1.3) Estimated GFR (Cockcroft-Gault) 63.9 63.9 BUN/Creatinine Ratio 17 (6-20) Glucose Level 134 mg/dL (70-99) 131 mg/dL (70-99) Calcium Level 7.9 mg/dL (8.5-10.1) 7.8 mg/dL (8.5-10.1) Phosphorus Level 2.8 mg/dL (2.6-4.7) Magnesium Level 2.1 mg/dL (1.8-2.4) Total Bilirubin 0.3 mg/dL (0.2-1.0) Aspartate Amino Transf (AST/SGOT) 29 U/L (15-37) Alanine Aminotransferase (ALT/SGPT) 25 U/L (16-63) Alkaline Phosphatase 81 U/L (46-116) Total Protein 4.6 g/dL (6.4-8.2) Albumin 1.5 g/dL (3.4-5.0) Albumin/Globulin Ratio 0.5 (1.0-1.7) White Blood Count 15.3 x10^3/uL (4.0-11.0) Red Blood Count 2.15 x10^6/uL (4.30-5.70) Hemoglobin 6.7 g/dL (13.0-17.5) Hematocrit 20.3 % (39.0-53.0) Mean Corpuscular Volume 94 fL (79-100) Mean Corpuscular Hemoglobin 31 pg (25-35) Mean Corpuscular Hemoglobin Concent 33 g/dL (31-37) Red Cell Distribution Width 15.9 % (11.5-14.5) Platelet Count 404 x10^3/uL (140-400) Neutrophils (%) (Auto) 79 % (31-73) Lymphocytes (%) (Auto) 10 % (24-48) Monocytes (%) (Auto) 7 % (0-9) Eosinophils (%) (Auto) 3 % (0-3) Basophils (%) (Auto) 1 % (0-3) Neutrophils # (Auto) 12.1 x10^3uL (1.8-7.7) Lymphocytes # (Auto) 1.6 x10^3/uL (1.0-4.8) Monocytes # (Auto) 1.1 x10^3/uL (0.0-1.1) Eosinophils # (Auto) 0.5 x10^3/uL (0.0-0.7) Basophils # (Auto) 0.1 x10^3/uL (0.0-0.2) Glucose (Fingerstick) 111 mg/dL (70-99) 121 mg/dL (70-99) Laboratory Tests Test 02/27/19 06:00 02/27/19 08:00 02/27/19 11:56 White Blood Count 15.3 x10^3/uL (4.0-11.0) Red Blood Count 2.15 x10^6/uL (4.30-5.70) Hemoglobin 6.7 g/dL (13.0-17.5) Hematocrit 20.3 % (39.0-53.0) Mean Corpuscular Volume 94 fL (79-100) Mean Corpuscular Hemoglobin 31 pg (25-35) Mean Corpuscular Hemoglobin Concent 33 g/dL (31-37) Red Cell Distribution Width 15.9 % (11.5-14.5) Platelet Count 404 x10^3/uL (140-400) Neutrophils (%) (Auto) 79 % (31-73) Lymphocytes (%) (Auto) 10 % (24-48) Monocytes (%) (Auto) 7 % (0-9) Eosinophils (%) (Auto) 3 % (0-3) Basophils (%) (Auto) 1 % (0-3) Neutrophils # (Auto) 12.1 x10^3uL (1.8-7.7) Lymphocytes # (Auto) 1.6 x10^3/uL (1.0-4.8) Monocytes # (Auto) 1.1 x10^3/uL (0.0-1.1) Eosinophils # (Auto) 0.5 x10^3/uL (0.0-0.7) Basophils # (Auto) 0.1 x10^3/uL (0.0-0.2) Sodium Level 137 mmol/L (136-145) Potassium Level 4.2 mmol/L (3.5-5.1) Chloride Level 107 mmol/L (98-107) Carbon Dioxide Level 22 mmol/L (21-32) Anion Gap 8 (6-14) Blood Urea Nitrogen 20 mg/dL (8-26) Creatinine 1.1 mg/dL (0.7-1.3) Estimated GFR (Cockcroft-Gault) 63.9 Glucose Level 131 mg/dL (70-99) Calcium Level 7.8 mg/dL (8.5-10.1) Glucose (Fingerstick) 111 mg/dL (70-99) 121 mg/dL (70-99) Microbiology 02/17/19 Blood Culture - Final, Complete NO GROWTH AFTER 5 DAYS 02/17/19 Urine Culture - Final, Complete 02/17/19 Urine Culture Result 1 (PETERSON) - Final, Complete 02/22/19 Anaerobic/Aerobic Culture - Final, Complete 02/22/19 Anaerobic Culture Result 1 (PETERSON) - Final, Complete 02/22/19 Aerobic Culture - Final, Complete 02/22/19 Aerobic Culture Result 1 (PETERSON) - Final, Complete 02/22/19 Antimicrobic Susceptibility - Final, Complete 02/22/19 Gram Stain - Final, Complete 02/22/19 Gram Stain Result 1 (PETERSON) - Final, Complete 02/22/19 Gram Stain Result 2 (PETERSON) - Final, Complete Medications Current Medications Ondansetron HCl (Zofran) 4 mg PRN Q6HRS PRN IV NAUSEA/VOMITING; Start 02/14/19 at 07:00; Stop 02/14/19 at 20:00; Status DC Fentanyl Citrate (Fentanyl 2ml Vial) 25 mcg PRN Q5MIN PRN IV MILD PAIN Last administered on 02/14/19at 14:28; Start 02/14/19 at 07:00; Stop 02/14/19 at 20:00; Status DC Fentanyl Citrate (Fentanyl 2ml Vial) 50 mcg PRN Q5MIN PRN IV MODERATE TO SEVERE PAIN; Start 02/14/19 at 07:00; Stop 02/14/19 at 20:00; Status DC Morphine Sulfate (Morphine Sulfate) 1 mg PRN Q10MIN PRN IV SEVERE PAIN; Start 02/14/19 at 07:00; Stop 02/14/19 at 20:00; Status DC Ringer's Solution 1,000 ml @ 30 mls/hr Q24H IV Last administered on 02/14/19at 07:52; Start 02/14/19 at 07:00; Stop 02/14/19 at 18:59; Status DC Lidocaine HCl (Xylocaine-Mpf 1% 2ml Vial) 2 ml PRN 1X PRN ID PRIOR TO IV START; Start 02/14/19 at 07:00; Stop 02/14/19 at 20:00; Status DC Hydromorphone HCl (Dilaudid) 0.5 mg PRN Q10MIN PRN IV SEV PAIN, Second choice; Start 02/14/19 at 07:00; Stop 02/14/19 at 20:00; Status DC Prochlorperazine Edisylate (Compazine) 5 mg PACU PRN PRN IV NAUSEA, MRX1; Start 02/14/19 at 07:00; Stop 02/14/19 at 20:00; Status DC Cefazolin Sodium/ Dextrose 50 ml @ 100 mls/hr 1X PREOP PRN IV PRIOR TO PROCEDURE Last administered on 02/14/19at 11:21; Start 02/14/19 at 06:00; Stop 02/14/19 at 18:00; Status DC Propofol 20 ml @ As Directed STK-MED ONCE IV ; Start 02/14/19 at 08:17; Stop 02/14/19 at 08:18; Status DC Lidocaine HCl (Lidocaine Pf 2% Vial) 5 ml STK-MED ONCE .ROUTE ; Start 02/14/19 at 08:17; Stop 02/14/19 at 08:18; Status DC Ondansetron HCl (Zofran) 4 mg STK-MED ONCE .ROUTE ; Start 02/14/19 at 08:17; Stop 02/14/19 at 08:18; Status DC Dexamethasone Sodium Phosphate (Decadron) 4 mg STK-MED ONCE .ROUTE ; Start 02/14/19 at 08:17; Stop 02/14/19 at 08:18; Status DC Sevoflurane (Ultane) 60 ml STK-MED ONCE IH ; Start 02/14/19 at 08:17; Stop 02/14/19 at 08:18; Status DC Rocuronium [place] (Zemuron) 50 mg STK-MED ONCE .ROUTE ; Start 02/14/19 at 08:17; Stop 02/14/19 at 08:18; Status DC Fentanyl Citrate (Fentanyl 2ml Vial) 100 mcg STK-MED ONCE .ROUTE ; Start 02/14/19 at 08:39; Stop 02/14/19 at 08:40; Status DC Bupivacaine HCl/ Epinephrine Bitart (Sensorcain-Mpf Epi 0.5%-1:[id number]) 30 ml STK-MED ONCE .ROUTE Last administered on 02/14/19at 11:48; Start 02/14/19 at 10:01; Stop 02/14/19 at 11:02; Status DC Glucagon (Glucagen) 1 mg STK-MED ONCE .ROUTE ; Start 02/14/19 at 10:01; Stop 02/14/19 at 11:02; Status DC Iohexol (Omnipaque 300 Mg/ml) 100 ml STK-MED ONCE .ROUTE Last administered on 02/14/19at 11:48; Start 02/14/19 at 10:01; Stop 02/14/19 at 11:02; Status DC Cellulose (Surgicel Hemostat 4x8) 1 each STK-MED ONCE .ROUTE Last administered on 02/14/19at 13:12; Start 02/14/19 at 10:01; Stop 02/14/19 at 11:02; Status DC Cellulose (Surgicel Hemostat 4x8) 1 each STK-MED ONCE .ROUTE Last administered on 02/14/19at 13:31; Start 02/14/19 at 11:19; Stop 02/14/19 at 12:19; Status DC Famotidine (Pepcid Vial) 20 mg STK-MED ONCE .ROUTE ; Start 02/14/19 at 13:14; Stop 02/14/19 at 13:15; Status DC Diphenhydramine HCl (Benadryl) 50 mg STK-MED ONCE .ROUTE ; Start 02/14/19 at 13:14; Stop 02/14/19 at 13:15; Status DC Rocuronium [place] (Zemuron) 50 mg STK-MED ONCE .ROUTE ; Start 02/14/19 at 13:14; Stop 02/14/19 at 13:15; Status DC Fentanyl Citrate (Fentanyl 2ml Vial) 100 mcg STK-MED ONCE .ROUTE ; Start 02/14/19 at 13:15; Stop 02/14/19 at 13:16; Status DC Cellulose (Surgicel Hemostat 4x8) 1 each STK-MED ONCE .ROUTE ; Start 02/14/19 at 12:33; Stop 02/14/19 at 13:33; Status DC Diphenhydramine HCl (Benadryl) 25 mg PRN Q6HRS PRN PO ITCHING Last administered on 02/23/19at 20:43; Start 02/14/19 at 14:00 Sodium Chloride (Normal Saline Flush) 3 ml QSHIFT PRN IV AFTER MEDS AND BLOOD DRAWS; Start 02/14/19 at 14:00 Potassium Chloride/Sodium Chloride 1,000 ml @ 80 mls/hr [id number] IV Last administered on 02/17/19 06:02; Start 02/14/19 at 15:00; Stop 02/17/19 at 12:54; Status DC Dextrose (Dextrose 50%-Water Syringe) 12.5 gm PRN Q15MIN PRN IV SEE COMMENTS; Start 02/14/19 at 14:00 Acetaminophen/ Hydrocodone Bitart (Lortab 5/325) 1 tab PRN Q4HRS PRN PO MILD PAIN Last administered on 02/17/19at 08:35; Start 02/14/19 at 14:00 Acetaminophen/ Hydrocodone Bitart (Lortab 5/325) 2 tab PRN Q4HRS PRN PO MODERATE PAIN, SEVERE PAIN Last administered on 02/17/19 03:22; Start 02/14/19 at 14:00 Hydromorphone HCl (Dilaudid) 1 mg PRN Q4HRS PRN IV PAIN Last administered on 02/23/19 09:46; Start 02/14/19 at 14:00; Stop 02/24/19 at 11:48; Status DC Docusate Sodium (Colace) 100 mg BID PO Last administered on 02/27/19 09:13; Start 02/14/19 at 21:00 Ondansetron HCl (Zofran) 4 mg PRN Q6HRS PRN IV NAUESA, 1ST CHOICE Last administered on 02/19/19 04:09; Start 02/14/19 at 14:00; Stop 02/19/19 at 09:05; Status DC Atorvastatin Calcium (Lipitor) 40 mg QHS PO Last administered on 02/26/19 21:00; Start 02/14/19 at 21:00 Cyanocobalamin (Vitamin B-12) 1,000 mcg DAILY PO Last administered on 02/25/19 09:54; Start 02/15/19 at 09:00; Stop 02/25/19 at 18:56; Status DC Metoprolol Succinate (Toprol Xl) 25 mg DAILY PO Last administered on 02/20/19 07:53; Start 02/15/19 at 09:00; Stop 02/20/19 at 12:11; Status DC Tamsulosin HCl (Flomax) 0.4 mg DAILY PO Last administered on 02/27/19 09:09; Start 02/15/19 at 09:00 Losartan Potassium (Cozaar) 100 mg DAILY PO Last administered on 02/27/19 09:13; Start 02/15/19 at 09:00 Fentanyl Citrate (Fentanyl 2ml Vial) 100 mcg STK-MED ONCE .ROUTE ; Start 02/14/19 at 14:26; Stop 02/14/19 at 14:27; Status DC Bupivacaine HCl/ Epinephrine Bitart (Sensorcain-Mpf Epi 0.5%-1:[id number]) 30 ml STK-MED ONCE .ROUTE ; Start 02/14/19 at 15:13; Stop 02/14/19 at 16:14; Status DC Bacitracin (Bacitracin) 50,000 unit STK-MED ONCE IRR Last administered on 02/14/19at 16:49; Start 02/14/19 at 15:14; Stop 02/14/19 at 16:15; Status DC Sodium Chloride (SODIUM CHLORIDE 20ml) 20 ml STK-MED ONCE IJ ; Start 02/14/19 at 15:15; Stop 02/14/19 at 16:15; Status DC Cellulose (Surgicel Hemostat 4x8) 3 each STK-MED ONCE TP Last administered on 02/14/19 16:49; Start 02/14/19 at 16:49; Stop 02/14/19 at 16:55; Status DC Cellulose (Surgicel Hemostat 4x8) 4 each 1X ONCE TP ; Start 02/14/19 at 17:15; Stop 02/14/19 at 17:16; Status DC Cefazolin Sodium/ Dextrose (Ancef 2gm Premix) 2 gm STK-MED ONCE IV ; Start 02/14/19 at 11:00; Stop 02/15/19 at 13:02; Status DC Piperacillin Sod/ Tazobactam Sod 3.375 gm/Sodium Chloride 50 ml @ 100 mls/hr Q6HRS IV Last administered on 02/27/19 12:34; Start 02/17/19 at 12:00 Sodium Chloride 1,000 ml @ 125 mls/hr Q8H IV Last administered on 02/22/19 02:43; Start 02/17/19 at 13:00; Stop 02/22/19 at 10:28; Status DC Clopidogrel Bisulfate (Plavix) 75 mg DAILY PO Last administered on 02/27/19 09:10; Start 02/17/19 at 14:00 Vitamin D (Vitamin D3) 2,000 unit DAILY PO Last administered on 02/25/19 09:54; Start 02/17/19 at 14:00; Stop 02/25/19 at 18:56; Status DC Multivitamins (Thera M Plus) 1 tab DAILY PO Last administered on 02/25/19 09:54; Start 02/17/19 at 14:00; Stop 02/25/19 at 18:57; Status DC Calcium Carbonate/ Glycine (Tums) 500 mg PRN AFTMEALHC PRN PO INDIGESTION Last administered on 02/27/19 09:09; Start 02/17/19 at 15:00 Acetaminophen (Tylenol) 650 mg PRN Q6HRS PRN PO fever Last administered on 02/17/19 23:50; Start 02/17/19 at 23:45; Stop 02/21/19 at 08:07; Status DC Sodium Chloride 500 ml @ 500 mls/hr 1X ONCE IV Last administered on 02/17/19at 23:48; Start 02/18/19 at 00:00; Stop 02/18/19 at 00:59; Status DC Diltiazem HCl 125 mg/Dextrose 125 ml @ 5 mls/hr CONT PRN IV SEE I/O RECORD Last administered on 02/18/19at 04:27; Start 02/18/19 at 04:15; Stop 02/18/19 at 16:09; Status DC Linezolid/Dextrose 300 ml @ 300 mls/hr Q12HR IV Last administered on 02/26/19at 20:59; Start 02/18/19 at 09:00; Stop 02/27/19 at 07:42; Status DC Lactobacillus Rhamnosus (Culturelle) 1 cap BID PO Last administered on 02/27/19at 12:28; Start 02/18/19 at 21:00 Diltiazem HCl (Cardizem 24hr Cd) 240 mg DAILY PO Last administered on 02/27/19 09:09; Start 02/18/19 at 12:30 Aspirin (Ecotrin) 81 mg [id number] PO Last administered on 02/21/19at 08:34; Start 02/18/19 at 16:15; Stop 02/22/19 at 16:16; Status DC Acetaminophen (Tylenol) 650 mg PRN Q6HRS PRN PO FEVER Last administered on 02/22/19at 21:39; Start 02/19/19 at 01:45 Acetaminophen (Tylenol Supp) 650 mg PRN Q6HRS PRN GA MILD PAIN/TEMP Last adm inistered on 02/19/19at 02:18; Start 02/19/19 at 02:15 Norepinephrine Bitartrate 250 ml @ 1.875 mls/ hr CONT PRN IV SEE I/O RECORD; Start 02/19/19 at 07:30; Stop 02/23/19 at 11:38; Status DC Digoxin (Lanoxin) 250 mcg 1X ONCE IV Last administered on 02/19/19at 07:36; Start 02/19/19 at 07:30; Stop 02/19/19 at 07:31; Status DC Sodium Chloride 500 ml @ 500 mls/hr 1X ONCE IV Last administered on 02/19/19at 07:35; Start 02/19/19 at 07:30; Stop 02/19/19 at 08:29; Status DC Ondansetron HCl (Zofran) 4 mg Q6HRS IV Last administered on 02/20/19at 05:43; Start 02/19/19 at 12:00; Stop 02/20/19 at 10:56; Status DC Pantoprazole Sodium (Protonix) 40 mg BIDAC PO Last administered on 02/21/19at 08:34; Start 02/19/19 at 16:30; Stop 02/21/19 at 15:18; Status DC Digoxin (Lanoxin) 250 mcg 1X ONCE IV Last administered on 02/19/19at 22:57; Start 02/19/19 at 23:00; Stop 02/19/19 at 23:01; Status DC Cellulose (Surgicel Hemostat 4x8) 1 each STK-MED ONCE .ROUTE ; Start 02/14/19 at 15:23; Stop 02/20/19 at 08:42; Status DC Cellulose (Surgicel Hemostat 4x8) 1 each STK-MED ONCE .ROUTE ; Start 02/14/19 at 15:50; Stop 02/20/19 at 08:42; Status DC Propofol 20 ml @ As Directed STK-MED ONCE IV ; Start 02/14/19 at 16:05; Stop 02/20/19 at 08:42; Status DC Famotidine (Pepcid Vial) 20 mg STK-MED ONCE .ROUTE ; Start 02/14/19 at 16:05; Stop 02/20/19 at 08:42; Status DC Lidocaine HCl (Lidocaine Pf 2% Vial) 5 ml STK-MED ONCE .ROUTE ; Start 02/14/19 at 16:05; Stop 02/20/19 at 08:42; Status DC Ondansetron HCl (Zofran) 4 mg STK-MED ONCE .ROUTE ; Start 02/14/19 at 16:05; Stop 02/20/19 at 08:42; Status DC Rocuronium [place] (Zemuron) 100 mg STK-MED ONCE .ROUTE ; Start 02/14/19 at 16:05; Stop 02/20/19 at 08:42; Status DC Fentanyl Citrate (Fentanyl 2ml Vial) 100 mcg STK-MED ONCE .ROUTE ; Start 02/14/19 at 16:06; Stop 02/20/19 at 08:42; Status DC Dexamethasone Sodium Phosphate (Decadron) 4 mg STK-MED ONCE .ROUTE ; Start 02/14/19 at 16:06; Stop 02/20/19 at 08:42; Status DC Neostigmine Methylsulfate (Neostigmine Methylsulfate) 5 mg STK-MED ONCE .ROUTE ; Start 02/14/19 at 17:26; Stop 02/20/19 at 08:42; Status DC Glycopyrrolate (Robinul) 1 mg STK-MED ONCE .ROUTE ; Start 02/14/19 at 17:26; Stop 02/20/19 at 08:42; Status DC Ondansetron HCl (Zofran) 4 mg PRN Q6HRS PRN IV NAUSEA/VOMITING; Start 02/20/19 at 10:54 Metoprolol Tartrate (Lopressor) 25 mg BID PO Last administered on 02/21/19at 20:44; Start 02/20/19 at 12:15; Stop 02/22/19 at 10:28; Status DC Ringer's Solution 1,000 ml @ 50 mls/hr Q20H IV Last administered on 02/21/19at 14:47; Start 02/21/19 at 07:00; Stop 02/21/19 at 18:59; Status DC Midazolam HCl (Versed) 2 mg PRN 1X PRN IV PRIOR TO PROCEDURE; Start 02/21/19 at 12:30; Stop 02/22/19 at 12:29; Status DC Fentanyl Citrate (Fentanyl 2ml Vial) 25 mcg PRN Q5MIN PRN IV X 2 DOSES FOR PAIN; Start 02/21/19 at 12:30; Stop 02/22/19 at 12:29; Status DC Fentanyl Citrate (Fentanyl 2ml Vial) 50 mcg PRN Q5MIN PRN IV X 2 DOSES FOR PAIN; Start 02/21/19 at 12:30; Stop 02/22/19 at 12:29; Status DC Ringer's Solution 1,000 ml @ 125 mls/hr Q8H IV Last administered on 02/21/19at 12:27; Start 02/21/19 at 12:27; Stop 02/22/19 at 00:26; Status DC Lidocaine HCl (Xylocaine-Mpf 1% 2ml Vial) 2 ml 1X PRN PRN ID IV START; Start 02/21/19 at 12:30; Stop 02/22/19 at 12:29; Status DC Pantoprazole Sodium 80 mg/ Sodium Chloride 100 ml @ 10 mls/hr Q10H IV Last administered on 02/27/19at 01:40; Start 02/21/19 at 15:30; Stop 02/27/19 at 11:26; Status DC Metoprolol Tartrate (Lopressor Vial) 5 mg Q6HRS IVP Last administered on 02/27/19at 12:33; Start 02/22/19 at 12:00 Lidocaine/Sodium Bicarbonate (Buffered Lidocaine 1%) 3 ml STK-MED ONCE .ROUTE ; Start 02/22/19 at 12:08; Stop 02/22/19 at 12:09; Status DC Midazolam HCl (Versed) 2 mg STK-MED ONCE .ROUTE ; Start 02/22/19 at 12:21; Stop 02/22/19 at 12:22; Status DC Fentanyl Citrate (Fentanyl 2ml Vial) 100 mcg STK-MED ONCE .ROUTE ; Start 02/22/19 at 12:21; Stop 02/22/19 at 12:22; Status DC Lidocaine/Sodium Bicarbonate (Buffered Lidocaine 1%) 3 ml 1X ONCE IJ Last administered on 02/22/19 13:00; Start 02/22/19 at 12:30; Stop 02/22/19 at 12:31; Status DC Midazolam HCl (Versed) 2 mg 1X ONCE IV Last administered on 02/22/19 13:01; Start 02/22/19 at 12:30; Stop 02/22/19 at 12:31; Status DC Fentanyl Citrate (Fentanyl 2ml Vial) 100 mcg 1X ONCE IV Last administered on 02/22/19at 13:02; Start 02/22/19 at 12:30; Stop 02/22/19 at 12:31; Status DC Furosemide (Lasix) 40 mg 1X ONCE IVP Last administered on 02/22/19at 16:20; Start 02/22/19 at 16:15; Stop 02/22/19 at 16:16; Status DC Hydralazine HCl (Apresoline Inj) 10 mg PRN Q4HRS PRN IVP ELEVATED BP, SEE COMMENTS; Start 02/22/19 at 16:15 Digoxin (Lanoxin) 250 mcg PRN DAILY PRN IV SEE COMMENTS; Start 02/22/19 at 16:15 Albumin Human 100 ml @ 100 mls/hr 1X ONCE IV Last administered on 02/22/19 16:20; Start 02/22/19 at 16:15; Stop 02/22/19 at 17:14; Status DC Aspirin (Aspirin) 150 mg DAILY GA Last administered on 02/27/19at 09:10; Start 02/22/19 at 17:00 Info (Tpn Per Pharmacy) 1 each PRN DAILY PRN MC SEE COMMENTS Last administered on 02/27/19at 12:28; Start 02/23/19 at 11:45 Sodium Chloride 90 meq/Potassium Chloride 70 meq/ Potassium Phosphate 13.6 mmol/Magnesium Sulfate 15 meq/ Calcium Gluconate 10 meq/ Multivitamins 10 ml/Chromium/ Copper/Manganese/ Seleni/Zn 1 ml/ Total Parenteral Nutrition/Amino Acids/Dextrose/ Fat Emulsion Intravenous 1,512 ml @ 63 mls/hr TPN CONT IV Last administered on 02/23/19 21:28; Start 02/23/19 at 22:00; Stop 02/24/19 at 21:59; Status DC Potassium Chloride/Water 50 ml @ 50 mls/hr Q1H IV Last administered on 02/23/19at 15:31; Start 02/23/19 at 15:00; Stop 02/23/19 at 16:59; Status DC Morphine Sulfate (Morphine Sulfate) 2 mg PRN Q2HR PRN IV PAIN; Start 02/24/19 at 12:00 Sodium Chloride 90 meq/Potassium Chloride 70 meq/ Potassium Phosphate 25 mmol/ Magnesium Sulfate 15 meq/Calcium Gluconate 10 meq/ Multivitamins 10 ml/Chromium/ Copper/Manganese/ Seleni/Zn 1 ml/ Total Parenteral Nutrition/Amino Acids/Dextrose/ Fat Emulsion Intravenous 1,512 ml @ 63 mls/hr TPN CONT IV Last administered on 02/24/19 22:47; Start 02/24/19 at 22:00; Stop 02/25/19 at 21:59; Status DC Artificial Tears (Artificial Tears) 1 drop PRN BID PRN OU DRY EYE; Start 02/24/19 at 18:45 Temazepam (Restoril) 15 mg PRN QHS PRN PO INSOMNIA Last administered on 02/26/19at 22:34; Start 02/25/19 at 13:30 Sodium Chloride 90 meq/Potassium Chloride 70 meq/ Potassium Phosphate 25 mmol/ Magnesium Sulfate 15 meq/Calcium Gluconate 10 meq/ Multivitamins 10 ml/Chromium/ Copper/Manganese/ Seleni/Zn 1 ml/ Total Parenteral Nutrition/Amino Acids/Dextrose/ Fat Emulsion Intravenous 1,512 ml @ 63 mls/hr TPN CONT IV Last administered on 02/25/19at 21:06; Start 02/25/19 at 22:00; Stop 02/26/19 at 21:59; Status DC Vitamin D (Vitamin D3) 2,000 unit QHS PO Last administered on 02/26/19at 21:00; Start 02/26/19 at 21:00 Cyanocobalamin (Vitamin B-12) 1,000 mcg QHS PO Last administered on 02/26/19at 21:00; Start 02/26/19 at 21:00 Multivitamins (Thera M Plus) 1 tab QHS PO Last administered on 02/26/19at 21:00; Start 02/26/19 at 21:00 Iohexol (Omnipaque 300 Mg/ml) 300 ml 1X ONCE PO ; Start 02/26/19 at 09:00; Stop 02/26/19 at 09:01; Status DC Barium Sulfate (Liquid E-Z Paque) 355 ml 1X ONCE PO Last administered on 02/26/19at 11:15; Start 02/26/19 at 11:15; Stop 02/26/19 at 11:18; Status DC Sodium Chloride 90 meq/Potassium Chloride 70 meq/ Potassium Phosphate 25 mmol/ Magnesium Sulfate 15 meq/Calcium Gluconate 10 meq/ Multivitamins 10 ml/Chromium/ Copper/Manganese/ Seleni/Zn 1 ml/ Total Parenteral Nutrition/Amino Acids/Dextrose/ Fat Emulsion Intravenous 1,512 ml @ 63 mls/hr TPN CONT IV Last administered on 02/26/19at 22:36; Start 02/26/19 at 22:00; Stop 02/27/19 at 21:59 Pantoprazole Sodium (Protonix) 40 mg BIDAC PO ; Start 02/27/19 at 16:30 Sodium Chloride 90 meq/Potassium Chloride 70 meq/ Potassium Phosphate 25 mmol/ Magnesium Sulfate 15 meq/Calcium Gluconate 10 meq/ Multivitamins 10 ml/Chromium/ Copper/Manganese/ Seleni/Zn 1 ml/ Total Parenteral Nutrition/Amino Acids/Dextrose/ Fat Emulsion Intravenous 1,512 ml @ 63 mls/hr TPN CONT IV ; Start 02/27/19 at 22:00; Stop 02/28/19 at 21:59 Active Scripts Active Atorvastatin Calcium 40 Mg Tablet 40 Mg PO QHS 30 Days Reported Flomax (Tamsulosin Hcl) 0.4 Mg Cap.er.24h 0.4 Mg PO DAILY Clopidogrel (Clopidogrel Bisulfate) 75 Mg Tablet 75 Mg PO DAILY Aspirin 81 Mg Tab.chew 1 Tab PO DAILY Vitamin B-12 (Cyanocobalamin (Vitamin B-12)) 1,000 Mcg Tablet 1 Tab PO DAILY Metoprolol Succinate ( Xl ) (Metoprolol Succinate) 25 Mg Tab.er.24h 1 Tab PO DAILY Losartan Potassium 100 Mg Tablet 100 Mg PO DAILY Multivitamins (Multivitamin) 1 Each Tablet 1 Tab PO DAILY Vitamin D (Cholecalciferol (Vitamin D3)) 2,000 Unit Capsule 1 Cap PO DAILY Vitals/I & O Vital Sign - Last 24 Hours 02/26/19 02/26/19 02/26/19 02/26/19 15:00 15:24 15:24 16:55 Temp 98.0 98.0 Pulse 96 77 77 86 Resp 18 B/P (MAP) 178/80 (112) 190/80 190/80 178/80 Pulse Ox 96 O2 Delivery Nasal Cannula O2 Flow Rate 3.0 02/26/19 02/26/19 02/26/19 02/27/19 19:30 19:36 23:26 00:12 Temp 98.4 98.0 98.4 98.0 Pulse 65 91 81 Resp 18 B/P (MAP) 146/50 (82) 136/56 (82) 150/61 Pulse Ox 94 93 O2 Delivery Nasal Cannula Nasal Cannula Nasal Cannula O2 Flow Rate 4.0 4.0 4.0 02/27/19 02/27/19 02/27/19 02/27/19 03:09 05:49 07:51 08:00 Temp 98.1 97.5 98.1 97.5 Pulse 83 90 71 Resp 18 B/P (MAP) 140/50 (80) 165/68 128/56 (80) Pulse Ox 98 97 O2 Delivery Nasal Cannula Nasal Cannula Nasal Cannula O2 Flow Rate 4.0 4.0 4.0 02/27/19 02/27/19 02/27/19 02/27/19 09:09 09:13 11:04 11:40 Temp 97.8 97.8 97.8 97.8 Pulse 71 71 86 86 Resp 16 16 B/P (MAP) 128/56 128/56 170/72 (104) 170/72 Pulse Ox 95 O2 Delivery Nasal Cannula O2 Flow Rate 4.0 02/27/19 02/27/19 02/27/19 02/27/19 11:55 12:10 12:33 12:40 Temp 97.6 97.8 97.6 97.6 97.8 97.6 Pulse 76 82 82 71 Resp 18 16 16 B/P (MAP) 143/57 149/84 149/84 152/61 Intake and Output 02/26/19 02/26/19 02/27/19 14:59 22:59 06:59 Intake Total 1576 ml 926 ml Output Total 150 ml 1300 ml Balance -150 ml 1576 ml -374 ml BRI WARD III DO February 27, 2019 13:40
--- NOTE | 2019-02-27 17:01 | PDOC ---
SURGICAL PROGRESS NOTE Subjective Pt without new c/o, swallow eval and UGI encouraging Vital Signs Vital Signs Date Time Temp Pulse Resp B/P (MAP) Pulse Ox O2 Delivery O2 Flow Rate FiO2 02/27/19 14:36 97.8 78 18 155/62 (93) 94 Nasal Cannula 4.0 97.8 I&O Intake and Output 02/27/19 07:00 Intake Total 2502 ml Output Total 1450 ml Balance 1052 ml Intake Oral 100 ml IV Total 2402 ml Output Urine Total 1400 ml Drainage Total 50 ml # Bowel Movements 1 General: Alert, Cooperative, No acute distress Abdomen: Soft, No tenderness Labs Laboratory Tests Test 02/26/19 05:20 02/27/19 06:00 02/27/19 08:00 02/27/19 11:56 Sodium Level 139 mmol/L (136-145) 137 mmol/L (136-145) Potassium Level 4.1 mmol/L (3.5-5.1) 4.2 mmol/L (3.5-5.1) Chloride Level 109 mmol/L (98-107) 107 mmol/L (98-107) Carbon Dioxide Level 22 mmol/L (21-32) 22 mmol/L (21-32) Anion Gap 8 (6-14) 8 (6-14) Blood Urea Nitrogen 19 mg/dL (8-26) 20 mg/dL (8-26) Creatinine 1.1 mg/dL (0.7-1.3) 1.1 mg/dL (0.7-1.3) Estimated GFR (Cockcroft-Gault) 63.9 63.9 BUN/Creatinine Ratio 17 (6-20) Glucose Level 134 mg/dL (70-99) 131 mg/dL (70-99) Calcium Level 7.9 mg/dL (8.5-10.1) 7.8 mg/dL (8.5-10.1) Phosphorus Level 2.8 mg/dL (2.6-4.7) Magnesium Level 2.1 mg/dL (1.8-2.4) Total Bilirubin 0.3 mg/dL (0.2-1.0) Aspartate Amino Transf (AST/SGOT) 29 U/L (15-37) Alanine Aminotransferase (ALT/SGPT) 25 U/L (16-63) Alkaline Phosphatase 81 U/L (46-116) Total Protein 4.6 g/dL (6.4-8.2) Albumin 1.5 g/dL (3.4-5.0) Albumin/Globulin Ratio 0.5 (1.0-1.7) White Blood Count 15.3 x10^3/uL (4.0-11.0) Red Blood Count 2.15 x10^6/uL (4.30-5.70) Hemoglobin 6.7 g/dL (13.0-17.5) Hematocrit 20.3 % (39.0-53.0) Mean Corpuscular Volume 94 fL (79-100) Mean Corpuscular Hemoglobin 31 pg (25-35) Mean Corpuscular Hemoglobin Concent 33 g/dL (31-37) Red Cell Distribution Width 15.9 % (11.5-14.5) Platelet Count 404 x10^3/uL (140-400) Neutrophils (%) (Auto) 79 % (31-73) Lymphocytes (%) (Auto) 10 % (24-48) Monocytes (%) (Auto) 7 % (0-9) Eosinophils (%) (Auto) 3 % (0-3) Basophils (%) (Auto) 1 % (0-3) Neutrophils # (Auto) 12.1 x10^3uL (1.8-7.7) Lymphocytes # (Auto) 1.6 x10^3/uL (1.0-4.8) Monocytes # (Auto) 1.1 x10^3/uL (0.0-1.1) Eosinophils # (Auto) 0.5 x10^3/uL (0.0-0.7) Basophils # (Auto) 0.1 x10^3/uL (0.0-0.2) Glucose (Fingerstick) 111 mg/dL (70-99) 121 mg/dL (70-99) Laboratory Tests Test 02/27/19 06:00 02/27/19 08:00 02/27/19 11:56 White Blood Count 15.3 x10^3/uL (4.0-11.0) Red Blood Count 2.15 x10^6/uL (4.30-5.70) Hemoglobin 6.7 g/dL (13.0-17.5) Hematocrit 20.3 % (39.0-53.0) Mean Corpuscular Volume 94 fL (79-100) Mean Corpuscular Hemoglobin 31 pg (25-35) Mean Corpuscular Hemoglobin Concent 33 g/dL (31-37) Red Cell Distribution Width 15.9 % (11.5-14.5) Platelet Count 404 x10^3/uL (140-400) Neutrophils (%) (Auto) 79 % (31-73) Lymphocytes (%) (Auto) 10 % (24-48) Monocytes (%) (Auto) 7 % (0-9) Eosinophils (%) (Auto) 3 % (0-3) Basophils (%) (Auto) 1 % (0-3) Neutrophils # (Auto) 12.1 x10^3uL (1.8-7.7) Lymphocytes # (Auto) 1.6 x10^3/uL (1.0-4.8) Monocytes # (Auto) 1.1 x10^3/uL (0.0-1.1) Eosinophils # (Auto) 0.5 x10^3/uL (0.0-0.7) Basophils # (Auto) 0.1 x10^3/uL (0.0-0.2) Sodium Level 137 mmol/L (136-145) Potassium Level 4.2 mmol/L (3.5-5.1) Chloride Level 107 mmol/L (98-107) Carbon Dioxide Level 22 mmol/L (21-32) Anion Gap 8 (6-14) Blood Urea Nitrogen 20 mg/dL (8-26) Creatinine 1.1 mg/dL (0.7-1.3) Estimated GFR (Cockcroft-Gault) 63.9 Glucose Level 131 mg/dL (70-99) Calcium Level 7.8 mg/dL (8.5-10.1) Glucose (Fingerstick) 111 mg/dL (70-99) 121 mg/dL (70-99) Problem List s/p lap karie ADAT cont supportive care MICHAEL LONG MD February 27, 2019 17:01
[2019-02-27] MEDS: PANTOPRAZOLE 40 MG TABLET.DR. PO SCH (17:41)
[2019-02-27] MEDS: CHOLECALCIFEROL (VITAMIN D3) 1,000 UNIT TABLET PO SCH (21:12)
[2019-02-27] MEDS: ATORVASTATIN CALCIUM 40 MG TABLET. PO SCH (21:12)
[2019-02-27] MEDS: CYANOCOBALAMIN (VITAMIN B-12) 1,000 MCG TABLET. PO SCH (21:12)
[2019-02-27] MEDS: MULTIVITAMIN with MINERAL TABLET. PO SCH (21:12)
[2019-02-27] MEDS ORDERED: DEXTROSE 70% IV SCH ×10 (22:00)
[2019-02-27] MEDS ORDERED: [UNRECOGNIZED DRUG - OTHER] IV SCH ×10 (22:00)
[2019-02-27] MEDS ORDERED: TOTAL PARENTERAL NUTRITION IV SCH ×10 (22:00)
[2019-02-27] MEDS ORDERED: AMINO ACID IV SCH ×10 (22:00)
[2019-02-27] MEDS: TEMAZEPAM 15 MG CAPSULE PO PRN (22:15)
[2019-02-28] MEDS: PIPERACILLIN/TAZOBACTAM 3.375 GM in IV NORMAL SALINE 50ML 50 ML IV SCH ×4 (00:03→17:52)
[2019-02-28] MEDS: METOPROLOL TARTRATE 5 MG/5 ML VIAL. IVP SCH ×3 (00:04→12:18)
[2019-02-28 02:59] VITALS: BP 179/77
[2019-02-28] MEDS: PANTOPRAZOLE 40 MG TABLET.DR. PO SCH ×2 (05:56→17:51)
[2019-02-28 06:40] LABS: CALCIUM 7.9 mg/dL (8.5-10.1); CREATININE 1.1 mg/dL (0.7-1.3); GFR 63.9; PHOSPHORUS 2.6 mg/dL (2.6-4.7); POTASSIUM 4.5 mmol/L (3.5-5.1)
[2019-02-28 07:00] VITALS: BP 159/62
[2019-02-28 07:09] LABS: BASO # 0.1 x10^3/uL (0.0-0.2); BASO % 1 % (0-3); EOS # 0.7 x10^3/uL (0.0-0.7); EOS % 5 % (0-3); HEMATOCRIT 24.4 % (39.0-53.0); HEMOGLOBIN 7.9 g/dL (13.0-17.5); LYMPH # 1.2 x10^3/uL (1.0-4.8); LYMPH % 8 % (24-48); MEAN CORPUSCULAR HEMOGLOBIN 30 pg (25-35); MEAN CORPUSCULAR HGB CONC 33 g/dL (31-37); MEAN CORPUSCULAR VOLUME 92 fL (79-100); MONO # 1.2 x10^3/uL (0.0-1.1); MONO % 8 % (0-9); NEUT # 12.3 x10^3uL (1.8-7.7); NEUT % 80 % (31-73); PLATELET COUNT 384 x10^3/uL (140-400); RED BLOOD COUNT 2.65 x10^6/uL (4.30-5.70); RED CELL DISTRIBUTION WIDTH 16.6 % (11.5-14.5); WHITE BLOOD COUNT 15.4 x10^3/uL (4.0-11.0)
--- NOTE | 2019-02-28 07:34 | PDOC ---
Infectious Disease Note Subjective: Subjective Pt has some sob Comfortable, denies pain/N/V TPN No fevers/chills ROS: ROS Negative except for above. Vital Signs: Vital Signs Vital Signs Date Time Temp Pulse Resp B/P (MAP) Pulse Ox O2 Delivery O2 Flow Rate FiO2 02/28/19 05:55 75 182/73 02/28/19 02:59 98.1 25 98 Nasal Cannula 3.0 98.1 Physical Exam: PHYSICAL EXAM GENERAL: Sitting in the chair, relaxed appearance HEENT: Oral cavity clear, dry NECK: Supple, no JVP, no lymphadenopathy. LUNGS: Clear. HEART: S1, S2 regular. ABDOMEN: Obese, soft,NT, NICOLSA x [address], purulent drainage. Small incision approx sutures, clean EXTREMITIES: Bilat LE trace edema, no cyanosis SKIN: No rash NEUROLOGIC: Alert, responds appropriately RUE-PICC (02/22) clean Medications: Inpatient Meds: Current Medications Medications (Trade) Dose Ordered Sig/Zane Start Time Stop Time Status Last Admin Dose Admin Acetaminophen (Tylenol Supp) 650 mg PRN Q6HRS PRN 02/19/19 02:15 02/19/19 02:18 650 MG Acetaminophen (Tylenol) 650 mg PRN Q6HRS PRN 02/19/19 01:45 02/22/19 21:39 650 MG Acetaminophen/ Hydrocodone Bitart (Lortab 5/325) 2 tab PRN Q4HRS PRN 02/14/19 14:00 02/17/19 03:22 2 TAB Albumin Human 100 ml @ 100 mls/hr 1X ONCE 02/22/19 16:15 02/22/19 17:14 DC 02/22/19 16:20 100 MLS/HR Artificial Tears (Artificial Tears) 1 drop PRN BID PRN 02/24/19 18:45 Aspirin (Aspirin) 150 mg DAILY 02/22/19 17:00 02/27/19 09:10 150 MG Aspirin (Ecotrin) 81 mg [id number] 02/18/19 16:15 02/22/19 16:16 DC 02/21/19 08:34 81 MG Atorvastatin Calcium (Lipitor) 40 mg QHS 02/14/19 21:00 02/27/19 21:12 40 MG Bacitracin (Bacitracin) 50,000 unit STK-MED ONCE 02/14/19 15:14 02/14/19 16:15 DC 02/14/19 16:49 50,000 UNIT Barium Sulfate (Liquid E-Z Paque) 355 ml 1X ONCE 02/26/19 11:15 02/26/19 11:18 DC 02/26/19 11:15 355 ML Bupivacaine HCl/ Epinephrine Bitart (Sensorcain-Mpf Epi 0.5%-[id number]) 30 ml STK-MED ONCE 02/14/19 15:13 02/14/19 16:14 DC Calcium Carbonate/ Glycine (Tums) 500 mg PRN AFTMEALHC PRN 02/17/19 15:00 02/27/19 09:09 500 MG Cefazolin Sodium/ Dextrose (Ancef 2gm Premix) 2 gm STK-MED ONCE 02/14/19 11:00 02/15/19 13:02 DC Cellulose (Surgicel Hemostat 4x8) 1 each STK-MED ONCE 02/14/19 15:50 02/20/19 08:42 DC Clopidogrel Bisulfate (Plavix) 75 mg DAILY 02/17/19 14:00 02/27/19 09:10 75 MG Cyanocobalamin (Vitamin B-12) 1,000 mcg QHS 02/26/19 21:00 02/27/19 21:12 1,000 MCG Dexamethasone Sodium Phosphate (Decadron) 4 mg STK-MED ONCE 02/14/19 16:06 02/20/19 08:42 DC Dextrose (Dextrose 50%-Water Syringe) 12.5 gm PRN Q15MIN PRN 02/14/19 14:00 Digoxin (Lanoxin) 250 mcg PRN DAILY PRN 02/22/19 16:15 Diltiazem HCl (Cardizem 24hr Cd) 240 mg DAILY 02/18/19 12:30 02/27/19 09:09 240 MG Diltiazem HCl 125 mg/Dextrose 125 ml @ 5 mls/hr CONT PRN 02/18/19 04:15 02/18/19 16:09 DC 02/18/19 04:27 5 MLS/HR Diphenhydramine HCl (Benadryl) 25 mg PRN Q6HRS PRN 02/14/19 14:00 02/23/19 20:43 25 MG Docusate Sodium (Colace) 100 mg BID 02/14/19 21:00 02/27/19 21:12 100 MG Famotidine (Pepcid Vial) 20 mg STK-MED ONCE 02/14/19 16:05 02/20/19 08:42 DC Fentanyl Citrate (Fentanyl 2ml Vial) 100 mcg 1X ONCE 02/22/19 12:30 02/22/19 12:31 DC 02/22/19 13:02 50 MCG Furosemide (Lasix) 40 mg 1X ONCE 02/22/19 16:15 02/22/19 16:16 DC 02/22/19 16:20 40 MG Glucagon (Glucagen) 1 mg STK-MED ONCE 02/14/19 10:01 02/14/19 11:02 DC Glycopyrrolate (Robinul) 1 mg STK-MED ONCE 02/14/19 17:26 02/20/19 08:42 DC Hydralazine HCl (Apresoline Inj) 10 mg PRN Q4HRS PRN 02/22/19 16:15 02/28/19 03:12 10 MG Hydromorphone HCl (Dilaudid) 1 mg PRN Q4HRS PRN 02/14/19 14:00 02/24/19 11:48 DC 02/23/19 09:46 1 MG Info (Tpn Per Pharmacy) 1 each PRN DAILY PRN 02/23/19 11:45 02/27/19 12:28 1 EACH Iohexol (Omnipaque 300 Mg/ml) 300 ml 1X ONCE 02/26/19 09:00 02/26/19 09:01 DC Lactobacillus Rhamnosus (Culturelle) 1 cap BID 02/18/19 21:00 02/27/19 21:12 1 CAP Lidocaine HCl (Lidocaine Pf 2% Vial) 5 ml STK-MED ONCE 02/14/19 16:05 02/20/19 08:42 DC Lidocaine HCl (Xylocaine-Mpf 1% 2ml Vial) 2 ml 1X PRN PRN 02/21/19 12:30 02/22/19 12:29 DC Lidocaine/Sodium Bicarbonate (Buffered Lidocaine 1%) 3 ml 1X ONCE 02/22/19 12:30 02/22/19 12:31 DC 02/22/19 13:00 6 ML Linezolid/Dextrose 300 ml @ 300 mls/hr Q12HR 02/18/19 09:00 02/27/19 07:42 DC 02/26/19 20:59 300 MLS/HR Losartan Potassium (Cozaar) 100 mg DAILY 02/15/19 09:00 02/27/19 09:13 100 MG Metoprolol Succinate (Toprol Xl) 25 mg DAILY 02/15/19 09:00 02/20/19 12:11 DC 02/20/19 07:53 25 MG Metoprolol Tartrate (Lopressor Vial) 5 mg Q6HRS 02/22/19 12:00 02/28/19 05:55 5 MG Metoprolol Tartrate (Lopressor) 25 mg BID 02/20/19 12:15 02/22/19 10:28 DC 02/21/19 20:44 25 MG Midazolam HCl (Versed) 2 mg 1X ONCE 02/22/19 12:30 02/22/19 12:31 DC 02/22/19 13:01 1 MG Morphine Sulfate (Morphine Sulfate) 2 mg PRN Q2HR PRN 02/24/19 12:00 Multivitamins (Thera M Plus) 1 tab QHS 02/26/19 21:00 02/27/19 21:12 1 TAB Neostigmine Methylsulfate (Neostigmine Methylsulfate) 5 mg STK-MED ONCE 02/14/19 17:26 02/20/19 08:42 DC Norepinephrine Bitartrate 250 ml @ 1.875 mls/ hr CONT PRN 02/19/19 07:30 02/23/19 11:38 DC Ondansetron HCl (Zofran) 4 mg PRN Q6HRS PRN 02/20/19 10:54 Pantoprazole Sodium (Protonix) 40 mg BIDAC 02/27/19 16:30 02/28/19 05:56 40 MG Pantoprazole Sodium 80 mg/ Sodium Chloride 100 ml @ 10 mls/hr Q10H 02/21/19 15:30 02/27/19 11:26 DC 02/27/19 01:40 10 MLS/HR Piperacillin Sod/ Tazobactam Sod 3.375 gm/Sodium Chloride 50 ml @ 100 mls/hr Q6HRS 02/17/19 12:00 02/28/19 05:56 100 MLS/HR Potassium Chloride/Sodium Chloride 1,000 ml @ 80 mls/hr [id number] 02/14/19 15:00 02/17/19 12:54 DC 02/17/19 06:02 80 MLS/HR Potassium Chloride/Water 50 ml @ 50 mls/hr Q1H 02/23/19 15:00 02/23/19 16:59 DC 02/23/19 15:31 50 MLS/HR Prochlorperazine Edisylate (Compazine) 5 mg PACU PRN PRN 02/14/19 07:00 02/14/19 20:00 DC Propofol 20 ml @ As Directed STK-MED ONCE 02/14/19 16:05 02/20/19 08:42 DC Ringer's Solution 1,000 ml @ 125 mls/hr Q8H 02/21/19 12:27 02/22/19 00:26 DC 02/21/19 12:27 125 MLS/HR Rocuronium [place] (Zemuron) 100 mg STK-MED ONCE 02/14/19 16:05 02/20/19 08:42 DC Sevoflurane (Ultane) 60 ml STK-MED ONCE 02/14/19 08:17 02/14/19 08:18 DC Sodium Chloride (Normal Saline Flush) 3 ml QSHIFT PRN 02/14/19 14:00 Sodium Chloride (SODIUM CHLORIDE 20ml) 20 ml STK-MED ONCE 02/14/19 15:15 02/14/19 16:15 DC Sodium Chloride 90 meq/Potassium Chloride 70 meq/ Potassium Phosphate 13.6 mmol/Magnesium Sulfate 15 meq/ Calcium Gluconate 10 meq/ Multivitamins 10 ml/Chromium/ Copper/Manganese/ Seleni/Zn 1 ml/ Total Parenteral Nutrition/Amino Acids/Dextrose/ Fat Emulsion Intravenous 1,512 ml @ 63 mls/hr TPN CONT 02/23/19 22:00 02/24/19 21:59 DC 02/23/19 21:28 63 MLS/HR Sodium Chloride 90 meq/Potassium Chloride 70 meq/ Potassium Phosphate 25 mmol/ Magnesium Sulfate 15 meq/Calcium Gluconate 10 meq/ Multivitamins 10 ml/Chromium/ Copper/Manganese/ Seleni/Zn 1 ml/ Total Parenteral Nutrition/Amino Acids/Dextrose/ Fat Emulsion Intravenous 1,512 ml @ 63 mls/hr TPN CONT 02/27/19 22:00 02/28/19 21:59 02/27/19 22:27 63 MLS/HR Tamsulosin HCl (Flomax) 0.4 mg DAILY 02/15/19 09:00 02/27/19 09:09 0.4 MG Temazepam (Restoril) 15 mg PRN QHS PRN 02/25/19 13:30 02/27/19 22:15 15 MG Vitamin D (Vitamin D3) 2,000 unit QHS 02/26/19 21:00 02/27/19 21:12 2,000 UNIT Labs: Lab Laboratory Tests Test 02/27/19 08:00 02/27/19 11:56 02/27/19 17:20 02/28/19 06:15 Glucose (Fingerstick) 111 mg/dL (70-99) 121 mg/dL (70-99) 172 mg/dL (70-99) White Blood Count 15.4 x10^3/uL (4.0-11.0) Red Blood Count 2.65 x10^6/uL (4.30-5.70) Hemoglobin 7.9 g/dL (13.0-17.5) Hematocrit 24.4 % (39.0-53.0) Mean Corpuscular Volume 92 fL (79-100) Mean Corpuscular Hemoglobin 30 pg (25-35) Mean Corpuscular Hemoglobin Concent 33 g/dL (31-37) Red Cell Distribution Width 16.6 % (11.5-14.5) Platelet Count 384 x10^3/uL (140-400) Neutrophils (%) (Auto) 80 % (31-73) Lymphocytes (%) (Auto) 8 % (24-48) Monocytes (%) (Auto) 8 % (0-9) Eosinophils (%) (Auto) 5 % (0-3) Basophils (%) (Auto) 1 % (0-3) Neutrophils # (Auto) 12.3 x10^3uL (1.8-7.7) Lymphocytes # (Auto) 1.2 x10^3/uL (1.0-4.8) Monocytes # (Auto) 1.2 x10^3/uL (0.0-1.1) Eosinophils # (Auto) 0.7 x10^3/uL (0.0-0.7) Basophils # (Auto) 0.1 x10^3/uL (0.0-0.2) Sodium Level 136 mmol/L (136-145) Potassium Level 4.5 mmol/L (3.5-5.1) Chloride Level 106 mmol/L (98-107) Carbon Dioxide Level 21 mmol/L (21-32) Anion Gap 9 (6-14) Blood Urea Nitrogen 20 mg/dL (8-26) Creatinine 1.1 mg/dL (0.7-1.3) Estimated GFR (Cockcroft-Gault) 63.9 Glucose Level 126 mg/dL (70-99) Calcium Level 7.9 mg/dL (8.5-10.1) Phosphorus Level 2.6 mg/dL (2.6-4.7) Magnesium Level 2.0 mg/dL (1.8-2.4) Test 02/28/19 06:18 Glucose (Fingerstick) 126 mg/dL (70-99) Objective: Assessment: Fever,resolved Leukocytosis Anemia s/p RBC s/p CT-guided drainage, gallbladder fossa fluid collection, 02/22. 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 Hyperlipidemia. Atrial fibrillation Pulm infiltrates/effusion likely venous congestion ? aspiration on TPN Plan: Plan of Care cont Zosyn(02/17) Off Zyvox 02/27 Probiotics drain management per Surgery Upper GI done,still has edema ,no obstruction awaiting swallow evaluation PICC maintenance care PT/OT Monitor labs D/W NED SCHNEIDER MD February 28, 2019 07:34
--- NOTE | 2019-02-28 07:41 | RAD ---
Portable chest, 02/27/2019: HISTORY: Shortness of breath Comparison is made to a study from 02/25/2019. A right PICC extends into the superior vena cava. The pulmonary vascularity is at the upper limits of normal. There are moderate ongoing bibasilar opacities compatible with pleural fluid and underlying atelectasis/infiltrate. These opacities appear to have worsened slightly. Differences in patient positioning may be contributing to this appearance. IMPRESSION: Slight interval worsening of the moderate bibasilar opacities compatible with pleural fluid and underlying atelectasis/infiltrate. Electronically signed by: Srinath Baer MD (02/28/2019 7:38 AM) [facility]
[2019-02-28] MEDS: LACTOBACILLUS RHAMNOSUS GG 1 CAPSULE. PO SCH ×2 (08:41→20:56)
[2019-02-28] MEDS: TAMSULOSIN 0.4 MG CAP.ER.24H. PO SCH (08:41)
[2019-02-28] MEDS: DOCUSATE SODIUM 100 MG CAPSULE. PO SCH ×2 (08:41→20:58)
[2019-02-28] MEDS: CLOPIDOGREL BISULFATE 75 MG TABLET PO SCH (08:42)
[2019-02-28] MEDS: LOSARTAN POTASSIUM 50 MG TABLET. PO SCH (08:43)
--- NOTE | 2019-02-28 08:54 | PDOC ---
PULMONARY PROGRESS NOTES Subjective WALKED IN HALLWAY THIS AM NOT VERY SOA Vitals Vital Signs Date Time Temp Pulse Resp B/P (MAP) Pulse Ox O2 Delivery O2 Flow Rate FiO2 02/28/19 08:43 68 159/62 02/28/19 07:00 97.6 22 97 Nasal Cannula 3.0 97.6 ROS: No Nausea, No Chest Pain, No Increase Cough General: Alert, No acute distress Lungs: Other (DECREASE BASES) Cardiovascular: S1, S2 Abdomen: Soft Neuro Exam: Alert Extremities: Other (1+EDEMA) Skin: Warm Labs Laboratory Tests Test 02/27/19 06:00 02/27/19 08:00 02/27/19 11:56 02/27/19 17:20 White Blood Count 15.3 x10^3/uL (4.0-11.0) Red Blood Count 2.15 x10^6/uL (4.30-5.70) Hemoglobin 6.7 g/dL (13.0-17.5) Hematocrit 20.3 % (39.0-53.0) Mean Corpuscular Volume 94 fL (79-100) Mean Corpuscular Hemoglobin 31 pg (25-35) Mean Corpuscular Hemoglobin Concent 33 g/dL (31-37) Red Cell Distribution Width 15.9 % (11.5-14.5) Platelet Count 404 x10^3/uL (140-400) Neutrophils (%) (Auto) 79 % (31-73) Lymphocytes (%) (Auto) 10 % (24-48) Monocytes (%) (Auto) 7 % (0-9) Eosinophils (%) (Auto) 3 % (0-3) Basophils (%) (Auto) 1 % (0-3) Neutrophils # (Auto) 12.1 x10^3uL (1.8-7.7) Lymphocytes # (Auto) 1.6 x10^3/uL (1.0-4.8) Monocytes # (Auto) 1.1 x10^3/uL (0.0-1.1) Eosinophils # (Auto) 0.5 x10^3/uL (0.0-0.7) Basophils # (Auto) 0.1 x10^3/uL (0.0-0.2) Sodium Level 137 mmol/L (136-145) Potassium Level 4.2 mmol/L (3.5-5.1) Chloride Level 107 mmol/L (98-107) Carbon Dioxide Level 22 mmol/L (21-32) Anion Gap 8 (6-14) Blood Urea Nitrogen 20 mg/dL (8-26) Creatinine 1.1 mg/dL (0.7-1.3) Estimated GFR (Cockcroft-Gault) 63.9 Glucose Level 131 mg/dL (70-99) Calcium Level 7.8 mg/dL (8.5-10.1) Glucose (Fingerstick) 111 mg/dL (70-99) 121 mg/dL (70-99) 172 mg/dL (70-99) Test 02/28/19 06:15 02/28/19 06:18 White Blood Count 15.4 x10^3/uL (4.0-11.0) Red Blood Count 2.65 x10^6/uL (4.30-5.70) Hemoglobin 7.9 g/dL (13.0-17.5) Hematocrit 24.4 % (39.0-53.0) Mean Corpuscular Volume 92 fL (79-100) Mean Corpuscular Hemoglobin 30 pg (25-35) Mean Corpuscular Hemoglobin Concent 33 g/dL (31-37) Red Cell Distribution Width 16.6 % (11.5-14.5) Platelet Count 384 x10^3/uL (140-400) Neutrophils (%) (Auto) 80 % (31-73) Lymphocytes (%) (Auto) 8 % (24-48) Monocytes (%) (Auto) 8 % (0-9) Eosinophils (%) (Auto) 5 % (0-3) Basophils (%) (Auto) 1 % (0-3) Neutrophils # (Auto) 12.3 x10^3uL (1.8-7.7) Lymphocytes # (Auto) 1.2 x10^3/uL (1.0-4.8) Monocytes # (Auto) 1.2 x10^3/uL (0.0-1.1) Eosinophils # (Auto) 0.7 x10^3/uL (0.0-0.7) Basophils # (Auto) 0.1 x10^3/uL (0.0-0.2) Sodium Level 136 mmol/L (136-145) Potassium Level 4.5 mmol/L (3.5-5.1) Chloride Level 106 mmol/L (98-107) Carbon Dioxide Level 21 mmol/L (21-32) Anion Gap 9 (6-14) Blood Urea Nitrogen 20 mg/dL (8-26) Creatinine 1.1 mg/dL (0.7-1.3) Estimated GFR (Cockcroft-Gault) 63.9 Glucose Level 126 mg/dL (70-99) Calcium Level 7.9 mg/dL (8.5-10.1) Phosphorus Level 2.6 mg/dL (2.6-4.7) Magnesium Level 2.0 mg/dL (1.8-2.4) Glucose (Fingerstick) 126 mg/dL (70-99) Laboratory Tests Test 02/27/19 11:56 02/27/19 17:20 02/28/19 06:15 02/28/19 06:18 Glucose (Fingerstick) 121 mg/dL (70-99) 172 mg/dL (70-99) 126 mg/dL (70-99) White Blood Count 15.4 x10^3/uL (4.0-11.0) Red Blood Count 2.65 x10^6/uL (4.30-5.70) Hemoglobin 7.9 g/dL (13.0-17.5) Hematocrit 24.4 % (39.0-53.0) Mean Corpuscular Volume 92 fL (79-100) Mean Corpuscular Hemoglobin 30 pg (25-35) Mean Corpuscular Hemoglobin Concent 33 g/dL (31-37) Red Cell Distribution Width 16.6 % (11.5-14.5) Platelet Count 384 x10^3/uL (140-400) Neutrophils (%) (Auto) 80 % (31-73) Lymphocytes (%) (Auto) 8 % (24-48) Monocytes (%) (Auto) 8 % (0-9) Eosinophils (%) (Auto) 5 % (0-3) Basophils (%) (Auto) 1 % (0-3) Neutrophils # (Auto) 12.3 x10^3uL (1.8-7.7) Lymphocytes # (Auto) 1.2 x10^3/uL (1.0-4.8) Monocytes # (Auto) 1.2 x10^3/uL (0.0-1.1) Eosinophils # (Auto) 0.7 x10^3/uL (0.0-0.7) Basophils # (Auto) 0.1 x10^3/uL (0.0-0.2) Sodium Level 136 mmol/L (136-145) Potassium Level 4.5 mmol/L (3.5-5.1) Chloride Level 106 mmol/L (98-107) Carbon Dioxide Level 21 mmol/L (21-32) Anion Gap 9 (6-14) Blood Urea Nitrogen 20 mg/dL (8-26) Creatinine 1.1 mg/dL (0.7-1.3) Estimated GFR (Cockcroft-Gault) 63.9 Glucose Level 126 mg/dL (70-99) Calcium Level 7.9 mg/dL (8.5-10.1) Phosphorus Level 2.6 mg/dL (2.6-4.7) Magnesium Level 2.0 mg/dL (1.8-2.4) Medications Active Scripts Medications Dose Route/Sig Max Daily Dose Days Date Category Flomax (Tamsulosin Hcl) 0.4 Mg Cap.er.24h 0.4 Mg PO DAILY 02/13/19 Reported Clopidogrel (Clopidogrel Bisulfate) 75 Mg Tablet 75 Mg PO DAILY 02/13/19 Reported Aspirin 81 Mg Tab.chew 1 Tab PO DAILY 02/13/19 Reported Vitamin B-12 (Cyanocobalamin (Vitamin B-12)) 1,000 Mcg Tablet 1 Tab PO DAILY 12/25/18 Reported Metoprolol Succinate ( Xl ) (Metoprolol Succinate) 25 Mg Tab.er.24h 1 Tab PO DAILY 12/25/18 Reported Losartan Potassium 100 Mg Tablet 100 Mg PO DAILY 12/25/18 Reported Atorvastatin Calcium 40 Mg Tablet 40 Mg PO QHS 30 06/27/17 Rx Multivitamins (Multivitamin) 1 Each Tablet 1 Tab PO DAILY 08/12/15 Reported Vitamin D (Cholecalciferol (Vitamin D3)) 2,000 Unit Capsule 1 Cap PO DAILY 08/12/15 Reported Impression . IMPRESSION: 1. Expected hypoxemic respiratory failure. 2. Status post laparoscopic cholecystectomy with cholangiogram. 3. Status post exploratory laparotomy for hemoperitoneum on 02/14. 4. Abnormal x-ray compatible with atelectasis and effusion, suspect related to intra-abdominal inflammation and possible infection. 5. Leukocytosis. 6. History of cerebrovascular accident, hypertension 7. Hyperlipidemia. 8. Transient atrial fibrillation. 9. Acute blood loss anemia 10. DYSPHAGIA 02/28 IMPRESSION: Intermittent aspiration of the thin liquids which abated when the thicker materials or chin tuck maneuver were utilized. 02/20 Impression: 1. There is a air/ fluid collection identified in the gallbladder fossa region measuring 8.2 x 4.7 cm. Differential includes abscess or focal biloma, if there has been a recent cholecystectomy. A HIDA scan may be helpful. A drain tubing is identified in the gallbladder fossa region. 2. Punctate foci of air identified in the right upper quadrant of the abdomen with surrounding inflammatory fat stranding probably secondary to recent surgery. Correlate clinically. 3. Bibasilar lung consolidation changes likely pneumonia or atelectasis with collapse and consolidation of the right middle lobe of the lung. Bilateral pleural effusions , right greater than left. 4. Mild thickened appearance of the wall of the colon throughout could be due to nondistention or mild colitis. Plan . TRANSFUSE NGB NOW GREATER THAN 7 DID OK WITH VIDEO ON DIET WILL D/C TPN SPOKE WITH DR POLLACK TRANSFER TO [facility] IN AM DRAINS PER SURGEON CXR SLIGHLY WORSE WILL GIVE LASIX WILL CONTINUE SUPPORT ANTIBX PER UMA LAINEZ MD February 28, 2019 08:54
[2019-02-28] MEDS: ASPIRIN RECTAL 300 MG SUPP. PR SCH (09:00)
--- NOTE | 2019-02-28 10:07 | PDOC ---
LACHO OCONNOR LORRY WEIGHER 02/28/19 1007: SURGICAL PROGRESS NOTE Subjective up in chair tolerating po, had an ensure today Vital Signs Vital Signs Date Time Temp Pulse Resp B/P (MAP) Pulse Ox O2 Delivery O2 Flow Rate FiO2 02/28/19 08:43 68 159/62 02/28/19 07:00 97.6 22 97 Nasal Cannula 3.0 97.6 I&O Intake and Output 02/28/19 07:00 Intake Total 2790 ml Output Total 2080 ml Balance 710 ml Intake Oral 720 ml IV Total 2070 ml Output Urine Total 2000 ml Drainage Total 80 ml # Bowel Movements 1 General: Alert, Oriented X3, Cooperative, No acute distress Abdomen: Soft, Other (drains scant ) Labs Laboratory Tests Test 02/27/19 06:00 02/27/19 08:00 02/27/19 11:56 02/27/19 17:20 White Blood Count 15.3 x10^3/uL (4.0-11.0) Red Blood Count 2.15 x10^6/uL (4.30-5.70) Hemoglobin 6.7 g/dL (13.0-17.5) Hematocrit 20.3 % (39.0-53.0) Mean Corpuscular Volume 94 fL (79-100) Mean Corpuscular Hemoglobin 31 pg (25-35) Mean Corpuscular Hemoglobin Concent 33 g/dL (31-37) Red Cell Distribution Width 15.9 % (11.5-14.5) Platelet Count 404 x10^3/uL (140-400) Neutrophils (%) (Auto) 79 % (31-73) Lymphocytes (%) (Auto) 10 % (24-48) Monocytes (%) (Auto) 7 % (0-9) Eosinophils (%) (Auto) 3 % (0-3) Basophils (%) (Auto) 1 % (0-3) Neutrophils # (Auto) 12.1 x10^3uL (1.8-7.7) Lymphocytes # (Auto) 1.6 x10^3/uL (1.0-4.8) Monocytes # (Auto) 1.1 x10^3/uL (0.0-1.1) Eosinophils # (Auto) 0.5 x10^3/uL (0.0-0.7) Basophils # (Auto) 0.1 x10^3/uL (0.0-0.2) Sodium Level 137 mmol/L (136-145) Potassium Level 4.2 mmol/L (3.5-5.1) Chloride Level 107 mmol/L (98-107) Carbon Dioxide Level 22 mmol/L (21-32) Anion Gap 8 (6-14) Blood Urea Nitrogen 20 mg/dL (8-26) Creatinine 1.1 mg/dL (0.7-1.3) Estimated GFR (Cockcroft-Gault) 63.9 Glucose Level 131 mg/dL (70-99) Calcium Level 7.8 mg/dL (8.5-10.1) Glucose (Fingerstick) 111 mg/dL (70-99) 121 mg/dL (70-99) 172 mg/dL (70-99) Test 02/28/19 06:15 02/28/19 06:18 White Blood Count 15.4 x10^3/uL (4.0-11.0) Red Blood Count 2.65 x10^6/uL (4.30-5.70) Hemoglobin 7.9 g/dL (13.0-17.5) Hematocrit 24.4 % (39.0-53.0) Mean Corpuscular Volume 92 fL (79-100) Mean Corpuscular Hemoglobin 30 pg (25-35) Mean Corpuscular Hemoglobin Concent 33 g/dL (31-37) Red Cell Distribution Width 16.6 % (11.5-14.5) Platelet Count 384 x10^3/uL (140-400) Neutrophils (%) (Auto) 80 % (31-73) Lymphocytes (%) (Auto) 8 % (24-48) Monocytes (%) (Auto) 8 % (0-9) Eosinophils (%) (Auto) 5 % (0-3) Basophils (%) (Auto) 1 % (0-3) Neutrophils # (Auto) 12.3 x10^3uL (1.8-7.7) Lymphocytes # (Auto) 1.2 x10^3/uL (1.0-4.8) Monocytes # (Auto) 1.2 x10^3/uL (0.0-1.1) Eosinophils # (Auto) 0.7 x10^3/uL (0.0-0.7) Basophils # (Auto) 0.1 x10^3/uL (0.0-0.2) Sodium Level 136 mmol/L (136-145) Potassium Level 4.5 mmol/L (3.5-5.1) Chloride Level 106 mmol/L (98-107) Carbon Dioxide Level 21 mmol/L (21-32) Anion Gap 9 (6-14) Blood Urea Nitrogen 20 mg/dL (8-26) Creatinine 1.1 mg/dL (0.7-1.3) Estimated GFR (Cockcroft-Gault) 63.9 Glucose Level 126 mg/dL (70-99) Calcium Level 7.9 mg/dL (8.5-10.1) Phosphorus Level 2.6 mg/dL (2.6-4.7) Magnesium Level 2.0 mg/dL (1.8-2.4) Glucose (Fingerstick) 126 mg/dL (70-99) Laboratory Tests Test 02/27/19 11:56 02/27/19 17:20 02/28/19 06:15 02/28/19 06:18 Glucose (Fingerstick) 121 mg/dL (70-99) 172 mg/dL (70-99) 126 mg/dL (70-99) White Blood Count 15.4 x10^3/uL (4.0-11.0) Red Blood Count 2.65 x10^6/uL (4.30-5.70) Hemoglobin 7.9 g/dL (13.0-17.5) Hematocrit 24.4 % (39.0-53.0) Mean Corpuscular Volume 92 fL (79-100) Mean Corpuscular Hemoglobin 30 pg (25-35) Mean Corpuscular Hemoglobin Concent 33 g/dL (31-37) Red Cell Distribution Width 16.6 % (11.5-14.5) Platelet Count 384 x10^3/uL (140-400) Neutrophils (%) (Auto) 80 % (31-73) Lymphocytes (%) (Auto) 8 % (24-48) Monocytes (%) (Auto) 8 % (0-9) Eosinophils (%) (Auto) 5 % (0-3) Basophils (%) (Auto) 1 % (0-3) Neutrophils # (Auto) 12.3 x10^3uL (1.8-7.7) Lymphocytes # (Auto) 1.2 x10^3/uL (1.0-4.8) Monocytes # (Auto) 1.2 x10^3/uL (0.0-1.1) Eosinophils # (Auto) 0.7 x10^3/uL (0.0-0.7) Basophils # (Auto) 0.1 x10^3/uL (0.0-0.2) Sodium Level 136 mmol/L (136-145) Potassium Level 4.5 mmol/L (3.5-5.1) Chloride Level 106 mmol/L (98-107) Carbon Dioxide Level 21 mmol/L (21-32) Anion Gap 9 (6-14) Blood Urea Nitrogen 20 mg/dL (8-26) Creatinine 1.1 mg/dL (0.7-1.3) Estimated GFR (Cockcroft-Gault) 63.9 Glucose Level 126 mg/dL (70-99) Calcium Level 7.9 mg/dL (8.5-10.1) Phosphorus Level 2.6 mg/dL (2.6-4.7) Magnesium Level 2.0 mg/dL (1.8-2.4) Assessment/Plan decreasing drain output taking po supportive measures KEESHA POLLACK MD 02/28/19 1214: SURGICAL PROGRESS NOTE Assessment/Plan pt seen and examined at bedside awaiting swallow eval denies pain asking about getting his esophagus "stretched" I explained that would be up to GI no new surg recs d/c planning LACHO OCONNOR APRN February 28, 2019 10:07 KEESHA POLLACK MD February 28, 2019 12:14
[2019-02-28] MEDS ORDERED: OXYMETAZOLINE 0.05% NASAL SPRAY 30ML BOTTLE. NS PRN (10:15)
[2019-02-28] MEDS ORDERED: BARIUM SULFATE 40% (APPLE) 148 GM PWD. PO ONE (10:15)
--- NOTE | 2019-02-28 10:32 | PDOC ---
CARDIO Progress Notes Date and Time Date of Service 02/28/19 Time of Evaluation 1015 Subjective Subjective: No Chest Pain, No shortness of breath, No Palpitations, Other Vitals Vitals Vital Signs Date Time Temp Pulse Resp B/P (MAP) Pulse Ox O2 Delivery O2 Flow Rate FiO2 02/28/19 08:43 68 159/62 02/28/19 07:00 97.6 22 97 Nasal Cannula 3.0 97.6 Weight Weight [ ] Input and Output Intake and Output Intake and Output 02/28/19 07:00 Intake Total 2790 ml Output Total 2080 ml Balance 710 ml Intake Oral 720 ml IV Total 2070 ml Output Urine Total 2000 ml Drainage Total 80 ml # Bowel Movements 1 Laboratory Labs Laboratory Tests Test 02/27/19 11:56 02/27/19 17:20 02/28/19 06:15 02/28/19 06:18 Glucose (Fingerstick) 121 mg/dL (70-99) 172 mg/dL (70-99) 126 mg/dL (70-99) White Blood Count 15.4 x10^3/uL (4.0-11.0) Red Blood Count 2.65 x10^6/uL (4.30-5.70) Hemoglobin 7.9 g/dL (13.0-17.5) Hematocrit 24.4 % (39.0-53.0) Mean Corpuscular Volume 92 fL (79-100) Mean Corpuscular Hemoglobin 30 pg (25-35) Mean Corpuscular Hemoglobin Concent 33 g/dL (31-37) Red Cell Distribution Width 16.6 % (11.5-14.5) Platelet Count 384 x10^3/uL (140-400) Neutrophils (%) (Auto) 80 % (31-73) Lymphocytes (%) (Auto) 8 % (24-48) Monocytes (%) (Auto) 8 % (0-9) Eosinophils (%) (Auto) 5 % (0-3) Basophils (%) (Auto) 1 % (0-3) Neutrophils # (Auto) 12.3 x10^3uL (1.8-7.7) Lymphocytes # (Auto) 1.2 x10^3/uL (1.0-4.8) Monocytes # (Auto) 1.2 x10^3/uL (0.0-1.1) Eosinophils # (Auto) 0.7 x10^3/uL (0.0-0.7) Basophils # (Auto) 0.1 x10^3/uL (0.0-0.2) Sodium Level 136 mmol/L (136-145) Potassium Level 4.5 mmol/L (3.5-5.1) Chloride Level 106 mmol/L (98-107) Carbon Dioxide Level 21 mmol/L (21-32) Anion Gap 9 (6-14) Blood Urea Nitrogen 20 mg/dL (8-26) Creatinine 1.1 mg/dL (0.7-1.3) Estimated GFR (Cockcroft-Gault) 63.9 Glucose Level 126 mg/dL (70-99) Calcium Level 7.9 mg/dL (8.5-10.1) Phosphorus Level 2.6 mg/dL (2.6-4.7) Magnesium Level 2.0 mg/dL (1.8-2.4) Microbiology Micro Microbiology 02/17/19 Blood Culture - Final, Complete NO GROWTH AFTER 5 DAYS 02/17/19 Urine Culture - Final, Complete 02/17/19 Urine Culture Result 1 (PETERSON) - Final, Complete 02/22/19 Anaerobic/Aerobic Culture - Final, Complete 02/22/19 Anaerobic Culture Result 1 (PETERSON) - Final, Complete 02/22/19 Aerobic Culture - Final, Complete 02/22/19 Aerobic Culture Result 1 (PETERSON) - Final, Complete 02/22/19 Antimicrobic Susceptibility - Final, Complete 02/22/19 Gram Stain - Final, Complete 02/22/19 Gram Stain Result 1 (PETERSON) - Final, Complete 02/22/19 Gram Stain Result 2 (PETERSON) - Final, Complete Physical Exam HEENT: Neck Supple W Full Motion Chest: Symmetric LUNGS: Other (dimininshed bases) Heart: irregularly irregular (AFIB rate controlled) Abdomen: Other (S/P Lap karie, tender abd) Extremities: No Calf Tenderness, Other (2-3+ bilateral LE and hand pitting edema) Neurology: alert, oriented, follow commands Assessment Assessment 1. Cholelithiasis s/p lap cholecystectomy 02/14/19 2. AFIB with RVR; new onset. Convert to SR 02/25/19. EF and WM nml. Rate controlled with BB and CCB 3. Hypertension; elevated 4. Hyperlipidemia; statin therapy 5. HERBER: improved 6. Postoperative anemia: s/p transfusion 7. Dysphagia; taking oral now Recommendations Continue Cardizem and metoprolol for rate control Will convert IV metoprolol to oral ASA for stroke prevention- covert to oral Lasix x IV Consider outpatient event monitor to note AFIB burden, guide anticoagulation therapy Supportive care Follow surgery, GI recs jasminas REBEKA GAINES APRN February 28, 2019 10:32
--- NOTE | 2019-02-28 11:23 | PDOC ---
[facility] PROGRESS NOTE Chief Complaint Chief Complaint Status post lap cholecystectomy, 02/14/19 Postop status cyst/fulfills tachycardia tachypnea AK I VMN Sepsis History CVA, hypertension, dyslipidemia and GERD on medication Atrial fibrillation with RVR History of Present Illness History of Present Illness Patient seen and examined Patient appeared tired in NAD with no appetite Patient complained of a stuffy nose and epistaxis Discussed w/ Nurse CXR- showed worsening moderate bibasilar opacities Vitals Vitals Vital Signs Date Time Temp Pulse Resp B/P (MAP) Pulse Ox O2 Delivery O2 Flow Rate FiO2 02/28/19 08:43 68 159/62 02/28/19 07:00 97.6 22 97 Nasal Cannula 3.0 97.6 Physical Exam Physical Exam GENERAL: Sitting in the chair, relaxed appearance HEENT: Oral cavity clear, dry NECK: Supple, no JVP, no lymphadenopathy. LUNGS: Clear. HEART: S1, S2 regular. ABDOMEN: Obese, soft,NT, NICOLAS x [address], purulent drainage. Small incision approx sutures, clean EXTREMITIES: Bilat LE trace edema, no cyanosis SKIN: No rash NEUROLOGIC: Alert, responds appropriately RUE-PICC (02/22) clean General: Alert, Oriented X3, Cooperative, No acute distress Heart: Other (IRRR; tele AFIB with controlled rate) Lungs: Other (DECREASE BASES) Abdomen: Soft, Other (drains scant ) Extremities: Other (trace bialteral LE edema ) Skin: No rashes, No breakdown Labs LABS Laboratory Tests Test 02/27/19 11:56 02/27/19 17:20 02/28/19 06:15 02/28/19 06:18 Glucose (Fingerstick) 121 mg/dL (70-99) 172 mg/dL (70-99) 126 mg/dL (70-99) White Blood Count 15.4 x10^3/uL (4.0-11.0) Red Blood Count 2.65 x10^6/uL (4.30-5.70) Hemoglobin 7.9 g/dL (13.0-17.5) Hematocrit 24.4 % (39.0-53.0) Mean Corpuscular Volume 92 fL (79-100) Mean Corpuscular Hemoglobin 30 pg (25-35) Mean Corpuscular Hemoglobin Concent 33 g/dL (31-37) Red Cell Distribution Width 16.6 % (11.5-14.5) Platelet Count 384 x10^3/uL (140-400) Neutrophils (%) (Auto) 80 % (31-73) Lymphocytes (%) (Auto) 8 % (24-48) Monocytes (%) (Auto) 8 % (0-9) Eosinophils (%) (Auto) 5 % (0-3) Basophils (%) (Auto) 1 % (0-3) Neutrophils # (Auto) 12.3 x10^3uL (1.8-7.7) Lymphocytes # (Auto) 1.2 x10^3/uL (1.0-4.8) Monocytes # (Auto) 1.2 x10^3/uL (0.0-1.1) Eosinophils # (Auto) 0.7 x10^3/uL (0.0-0.7) Basophils # (Auto) 0.1 x10^3/uL (0.0-0.2) Sodium Level 136 mmol/L (136-145) Potassium Level 4.5 mmol/L (3.5-5.1) Chloride Level 106 mmol/L (98-107) Carbon Dioxide Level 21 mmol/L (21-32) Anion Gap 9 (6-14) Blood Urea Nitrogen 20 mg/dL (8-26) Creatinine 1.1 mg/dL (0.7-1.3) Estimated GFR (Cockcroft-Gault) 63.9 Glucose Level 126 mg/dL (70-99) Calcium Level 7.9 mg/dL (8.5-10.1) Phosphorus Level 2.6 mg/dL (2.6-4.7) Magnesium Level 2.0 mg/dL (1.8-2.4) Review of Systems Review of Systems Patient complains of stuffy nose and epistaxis Patient denies LANE Assessment and Plan Assessmemt and Plan Assessment: Status post lap cholecystectomy, 02/14/19 Postop status cyst/fulfills tachycardia tachypnea AK I VMN-creatinine 1.1 today Sepsis History CVA, hypertension, dyslipidemia and GERD on medication Atrial fibrillation with RVR - rate controlled Plan: Cardiac Monitoring Antibiotics- Zosyn Afarin nasal spray IV PPI TPN [facility] Labs PT/OT DVT ppx SNU eval Comment Review of Relevant I have reviewed the following items timoteo (where applicable) has been applied. Labs Laboratory Tests Test 02/27/19 06:00 02/27/19 08:00 02/27/19 11:56 02/27/19 17:20 White Blood Count 15.3 x10^3/uL (4.0-11.0) Red Blood Count 2.15 x10^6/uL (4.30-5.70) Hemoglobin 6.7 g/dL (13.0-17.5) Hematocrit 20.3 % (39.0-53.0) Mean Corpuscular Volume 94 fL (79-100) Mean Corpuscular Hemoglobin 31 pg (25-35) Mean Corpuscular Hemoglobin Concent 33 g/dL (31-37) Red Cell Distribution Width 15.9 % (11.5-14.5) Platelet Count 404 x10^3/uL (140-400) Neutrophils (%) (Auto) 79 % (31-73) Lymphocytes (%) (Auto) 10 % (24-48) Monocytes (%) (Auto) 7 % (0-9) Eosinophils (%) (Auto) 3 % (0-3) Basophils (%) (Auto) 1 % (0-3) Neutrophils # (Auto) 12.1 x10^3uL (1.8-7.7) Lymphocytes # (Auto) 1.6 x10^3/uL (1.0-4.8) Monocytes # (Auto) 1.1 x10^3/uL (0.0-1.1) Eosinophils # (Auto) 0.5 x10^3/uL (0.0-0.7) Basophils # (Auto) 0.1 x10^3/uL (0.0-0.2) Sodium Level 137 mmol/L (136-145) Potassium Level 4.2 mmol/L (3.5-5.1) Chloride Level 107 mmol/L (98-107) Carbon Dioxide Level 22 mmol/L (21-32) Anion Gap 8 (6-14) Blood Urea Nitrogen 20 mg/dL (8-26) Creatinine 1.1 mg/dL (0.7-1.3) Estimated GFR (Cockcroft-Gault) 63.9 Glucose Level 131 mg/dL (70-99) Calcium Level 7.8 mg/dL (8.5-10.1) Glucose (Fingerstick) 111 mg/dL (70-99) 121 mg/dL (70-99) 172 mg/dL (70-99) Test 02/28/19 06:15 02/28/19 06:18 White Blood Count 15.4 x10^3/uL (4.0-11.0) Red Blood Count 2.65 x10^6/uL (4.30-5.70) Hemoglobin 7.9 g/dL (13.0-17.5) Hematocrit 24.4 % (39.0-53.0) Mean Corpuscular Volume 92 fL (79-100) Mean Corpuscular Hemoglobin 30 pg (25-35) Mean Corpuscular Hemoglobin Concent 33 g/dL (31-37) Red Cell Distribution Width 16.6 % (11.5-14.5) Platelet Count 384 x10^3/uL (140-400) Neutrophils (%) (Auto) 80 % (31-73) Lymphocytes (%) (Auto) 8 % (24-48) Monocytes (%) (Auto) 8 % (0-9) Eosinophils (%) (Auto) 5 % (0-3) Basophils (%) (Auto) 1 % (0-3) Neutrophils # (Auto) 12.3 x10^3uL (1.8-7.7) Lymphocytes # (Auto) 1.2 x10^3/uL (1.0-4.8) Monocytes # (Auto) 1.2 x10^3/uL (0.0-1.1) Eosinophils # (Auto) 0.7 x10^3/uL (0.0-0.7) Basophils # (Auto) 0.1 x10^3/uL (0.0-0.2) Sodium Level 136 mmol/L (136-145) Potassium Level 4.5 mmol/L (3.5-5.1) Chloride Level 106 mmol/L (98-107) Carbon Dioxide Level 21 mmol/L (21-32) Anion Gap 9 (6-14) Blood Urea Nitrogen 20 mg/dL (8-26) Creatinine 1.1 mg/dL (0.7-1.3) Estimated GFR (Cockcroft-Gault) 63.9 Glucose Level 126 mg/dL (70-99) Calcium Level 7.9 mg/dL (8.5-10.1) Phosphorus Level 2.6 mg/dL (2.6-4.7) Magnesium Level 2.0 mg/dL (1.8-2.4) Glucose (Fingerstick) 126 mg/dL (70-99) Laboratory Tests Test 02/27/19 11:56 02/27/19 17:20 02/28/19 06:15 02/28/19 06:18 Glucose (Fingerstick) 121 mg/dL (70-99) 172 mg/dL (70-99) 126 mg/dL (70-99) White Blood Count 15.4 x10^3/uL (4.0-11.0) Red Blood Count 2.65 x10^6/uL (4.30-5.70) Hemoglobin 7.9 g/dL (13.0-17.5) Hematocrit 24.4 % (39.0-53.0) Mean Corpuscular Volume 92 fL (79-100) Mean Corpuscular Hemoglobin 30 pg (25-35) Mean Corpuscular Hemoglobin Concent 33 g/dL (31-37) Red Cell Distribution Width 16.6 % (11.5-14.5) Platelet Count 384 x10^3/uL (140-400) Neutrophils (%) (Auto) 80 % (31-73) Lymphocytes (%) (Auto) 8 % (24-48) Monocytes (%) (Auto) 8 % (0-9) Eosinophils (%) (Auto) 5 % (0-3) Basophils (%) (Auto) 1 % (0-3) Neutrophils # (Auto) 12.3 x10^3uL (1.8-7.7) Lymphocytes # (Auto) 1.2 x10^3/uL (1.0-4.8) Monocytes # (Auto) 1.2 x10^3/uL (0.0-1.1) Eosinophils # (Auto) 0.7 x10^3/uL (0.0-0.7) Basophils # (Auto) 0.1 x10^3/uL (0.0-0.2) Sodium Level 136 mmol/L (136-145) Potassium Level 4.5 mmol/L (3.5-5.1) Chloride Level 106 mmol/L (98-107) Carbon Dioxide Level 21 mmol/L (21-32) Anion Gap 9 (6-14) Blood Urea Nitrogen 20 mg/dL (8-26) Creatinine 1.1 mg/dL (0.7-1.3) Estimated GFR (Cockcroft-Gault) 63.9 Glucose Level 126 mg/dL (70-99) Calcium Level 7.9 mg/dL (8.5-10.1) Phosphorus Level 2.6 mg/dL (2.6-4.7) Magnesium Level 2.0 mg/dL (1.8-2.4) Microbiology 02/17/19 Blood Culture - Final, Complete NO GROWTH AFTER 5 DAYS 02/17/19 Urine Culture - Final, Complete 02/17/19 Urine Culture Result 1 (PETERSON) - Final, Complete 02/22/19 Anaerobic/Aerobic Culture - Final, Complete 02/22/19 Anaerobic Culture Result 1 (PETERSON) - Final, Complete 02/22/19 Aerobic Culture - Final, Complete 02/22/19 Aerobic Culture Result 1 (PETERSON) - Final, Complete 02/22/19 Antimicrobic Susceptibility - Final, Complete 02/22/19 Gram Stain - Final, Complete 02/22/19 Gram Stain Result 1 (PETERSON) - Final, Complete 02/22/19 Gram Stain Result 2 (PETERSON) - Final, Complete Medications Current Medications Ondansetron HCl (Zofran) 4 mg PRN Q6HRS PRN IV NAUSEA/VOMITING; Start 02/14/19 at 07:00; Stop 02/14/19 at 20:00; Status DC Fentanyl Citrate (Fentanyl 2ml Vial) 25 mcg PRN Q5MIN PRN IV MILD PAIN Last administered on 02/14/19at 14:28; Start 02/14/19 at 07:00; Stop 02/14/19 at 20:00; Status DC Fentanyl Citrate (Fentanyl 2ml Vial) 50 mcg PRN Q5MIN PRN IV MODERATE TO SEVERE PAIN; Start 02/14/19 at 07:00; Stop 02/14/19 at 20:00; Status DC Morphine Sulfate (Morphine Sulfate) 1 mg PRN Q10MIN PRN IV SEVERE PAIN; Start 02/14/19 at 07:00; Stop 02/14/19 at 20:00; Status DC Ringer's Solution 1,000 ml @ 30 mls/hr Q24H IV Last administered on 02/14/19at 07:52; Start 02/14/19 at 07:00; Stop 02/14/19 at 18:59; Status DC Lidocaine HCl (Xylocaine-Mpf 1% 2ml Vial) 2 ml PRN 1X PRN ID PRIOR TO IV START; Start 02/14/19 at 07:00; Stop 02/14/19 at 20:00; Status DC Hydromorphone HCl (Dilaudid) 0.5 mg PRN Q10MIN PRN IV SEV PAIN, Second choice; Start 02/14/19 at 07:00; Stop 02/14/19 at 20:00; Status DC Prochlorperazine Edisylate (Compazine) 5 mg PACU PRN PRN IV NAUSEA, MRX1; Start 02/14/19 at 07:00; Stop 02/14/19 at 20:00; Status DC Cefazolin Sodium/ Dextrose 50 ml @ 100 mls/hr 1X PREOP PRN IV PRIOR TO PROCEDURE Last administered on 02/14/19at 11:21; Start 02/14/19 at 06:00; Stop 02/14/19 at 18:00; Status DC Propofol 20 ml @ As Directed STK-MED ONCE IV ; Start 02/14/19 at 08:17; Stop 02/14/19 at 08:18; Status DC Lidocaine HCl (Lidocaine Pf 2% Vial) 5 ml STK-MED ONCE .ROUTE ; Start 02/14/19 at 08:17; Stop 02/14/19 at 08:18; Status DC Ondansetron HCl (Zofran) 4 mg STK-MED ONCE .ROUTE ; Start 02/14/19 at 08:17; Stop 02/14/19 at 08:18; Status DC Dexamethasone Sodium Phosphate (Decadron) 4 mg STK-MED ONCE .ROUTE ; Start 02/14/19 at 08:17; Stop 02/14/19 at 08:18; Status DC Sevoflurane (Ultane) 60 ml STK-MED ONCE IH ; Start 02/14/19 at 08:17; Stop 02/14/19 at 08:18; Status DC Rocuronium [place] (Zemuron) 50 mg STK-MED ONCE .ROUTE ; Start 02/14/19 at 08:17; Stop 02/14/19 at 08:18; Status DC Fentanyl Citrate (Fentanyl 2ml Vial) 100 mcg STK-MED ONCE .ROUTE ; Start 02/14/19 at 08:39; Stop 02/14/19 at 08:40; Status DC Bupivacaine HCl/ Epinephrine Bitart (Sensorcain-Mpf Epi 0.5%-1:[id number]) 30 ml STK-MED ONCE .ROUTE Last administered on 02/14/19at 11:48; Start 02/14/19 at 10:01; Stop 02/14/19 at 11:02; Status DC Glucagon (Glucagen) 1 mg STK-MED ONCE .ROUTE ; Start 02/14/19 at 10:01; Stop 02/14/19 at 11:02; Status DC Iohexol (Omnipaque 300 Mg/ml) 100 ml STK-MED ONCE .ROUTE Last administered on 02/14/19at 11:48; Start 02/14/19 at 10:01; Stop 02/14/19 at 11:02; Status DC Cellulose (Surgicel Hemostat 4x8) 1 each STK-MED ONCE .ROUTE Last administered on 02/14/19at 13:12; Start 02/14/19 at 10:01; Stop 02/14/19 at 11:02; Status DC Cellulose (Surgicel Hemostat 4x8) 1 each STK-MED ONCE .ROUTE Last administered on 02/14/19at 13:31; Start 02/14/19 at 11:19; Stop 02/14/19 at 12:19; Status DC Famotidine (Pepcid Vial) 20 mg STK-MED ONCE .ROUTE ; Start 02/14/19 at 13:14; Stop 02/14/19 at 13:15; Status DC Diphenhydramine HCl (Benadryl) 50 mg STK-MED ONCE .ROUTE ; Start 02/14/19 at 13:14; Stop 02/14/19 at 13:15; Status DC Rocuronium [place] (Zemuron) 50 mg STK-MED ONCE .ROUTE ; Start 02/14/19 at 13:14; Stop 02/14/19 at 13:15; Status DC Fentanyl Citrate (Fentanyl 2ml Vial) 100 mcg STK-MED ONCE .ROUTE ; Start 02/14/19 at 13:15; Stop 02/14/19 at 13:16; Status DC Cellulose (Surgicel Hemostat 4x8) 1 each STK-MED ONCE .ROUTE ; Start 02/14/19 at 12:33; Stop 02/14/19 at 13:33; Status DC Diphenhydramine HCl (Benadryl) 25 mg PRN Q6HRS PRN PO ITCHING Last administered on 02/23/19 20:43; Start 02/14/19 at 14:00 Sodium Chloride (Normal Saline Flush) 3 ml QSHIFT PRN IV AFTER MEDS AND BLOOD DRAWS; Start 02/14/19 at 14:00 Potassium Chloride/Sodium Chloride 1,000 ml @ 80 mls/hr [id number] IV Last administered on 02/17/19 06:02; Start 02/14/19 at 15:00; Stop 02/17/19 at 12:54; Status DC Dextrose (Dextrose 50%-Water Syringe) 12.5 gm PRN Q15MIN PRN IV SEE COMMENTS; Start 02/14/19 at 14:00 Acetaminophen/ Hydrocodone Bitart (Lortab 5/325) 1 tab PRN Q4HRS PRN PO MILD PAIN Last administered on 02/17/19 08:35; Start 02/14/19 at 14:00 Acetaminophen/ Hydrocodone Bitart (Lortab 5/325) 2 tab PRN Q4HRS PRN PO MODERATE PAIN, SEVERE PAIN Last administered on 02/17/19 03:22; Start 02/14/19 at 14:00 Hydromorphone HCl (Dilaudid) 1 mg PRN Q4HRS PRN IV PAIN Last administered on 02/23/19 09:46; Start 02/14/19 at 14:00; Stop 02/24/19 at 11:48; Status DC Docusate Sodium (Colace) 100 mg BID PO Last administered on 02/28/19 08:41; Start 02/14/19 at 21:00 Ondansetron HCl (Zofran) 4 mg PRN Q6HRS PRN IV NAUESA, 1ST CHOICE Last administered on 02/19/19 04:09; Start 02/14/19 at 14:00; Stop 02/19/19 at 09:05; Status DC Atorvastatin Calcium (Lipitor) 40 mg QHS PO Last administered on 02/27/19 21:12; Start 02/14/19 at 21:00 Cyanocobalamin (Vitamin B-12) 1,000 mcg DAILY PO Last administered on 02/25/19at 09:54; Start 02/15/19 at 09:00; Stop 02/25/19 at 18:56; Status DC Metoprolol Succinate (Toprol Xl) 25 mg DAILY PO Last administered on 02/20/19at 07:53; Start 02/15/19 at 09:00; Stop 02/20/19 at 12:11; Status DC Tamsulosin HCl (Flomax) 0.4 mg DAILY PO Last administered on 02/28/19at 08:41; Start 02/15/19 at 09:00 Losartan Potassium (Cozaar) 100 mg DAILY PO Last administered on 02/28/19at 08:43; Start 02/15/19 at 09:00 Fentanyl Citrate (Fentanyl 2ml Vial) 100 mcg STK-MED ONCE .ROUTE ; Start 02/14/19 at 14:26; Stop 02/14/19 at 14:27; Status DC Bupivacaine HCl/ Epinephrine Bitart (Sensorcain-Mpf Epi 0.5%-1:[id number]) 30 ml STK-MED ONCE .ROUTE ; Start 02/14/19 at 15:13; Stop 02/14/19 at 16:14; Status DC Bacitracin (Bacitracin) 50,000 unit STK-MED ONCE IRR Last administered on 02/14/19at 16:49; Start 02/14/19 at 15:14; Stop 02/14/19 at 16:15; Status DC Sodium Chloride (SODIUM CHLORIDE 20ml) 20 ml STK-MED ONCE IJ ; Start 02/14/19 at 15:15; Stop 02/14/19 at 16:15; Status DC Cellulose (Surgicel Hemostat 4x8) 3 each STK-MED ONCE TP Last administered on 02/14/19at 16:49; Start 02/14/19 at 16:49; Stop 02/14/19 at 16:55; Status DC Cellulose (Surgicel Hemostat 4x8) 4 each 1X ONCE TP ; Start 02/14/19 at 17:15; Stop 02/14/19 at 17:16; Status DC Cefazolin Sodium/ Dextrose (Ancef 2gm Premix) 2 gm STK-MED ONCE IV ; Start 02/14/19 at 11:00; Stop 02/15/19 at 13:02; Status DC Piperacillin Sod/ Tazobactam Sod 3.375 gm/Sodium Chloride 50 ml @ 100 mls/hr Q6HRS IV Last administered on 02/28/19 05:56; Start 02/17/19 at 12:00 Sodium Chloride 1,000 ml @ 125 mls/hr Q8H IV Last administered on 02/22/19at 02:43; Start 02/17/19 at 13:00; Stop 02/22/19 at 10:28; Status DC Clopidogrel Bisulfate (Plavix) 75 mg DAILY PO Last administered on 02/28/19 08:42; Start 02/17/19 at 14:00 Vitamin D (Vitamin D3) 2,000 unit DAILY PO Last administered on 02/25/19 09:54; Start 02/17/19 at 14:00; Stop 02/25/19 at 18:56; Status DC Multivitamins (Thera M Plus) 1 tab DAILY PO Last administered on 02/25/19 09:54; Start 02/17/19 at 14:00; Stop 02/25/19 at 18:57; Status DC Calcium Carbonate/ Glycine (Tums) 500 mg PRN AFTMEALHC PRN PO INDIGESTION Last administered on 02/27/19 09:09; Start 02/17/19 at 15:00 Acetaminophen (Tylenol) 650 mg PRN Q6HRS PRN PO fever Last administered on 02/17/19at 23:50; Start 02/17/19 at 23:45; Stop 02/21/19 at 08:07; Status DC Sodium Chloride 500 ml @ 500 mls/hr 1X ONCE IV Last administered on 02/17/19at 23:48; Start 02/18/19 at 00:00; Stop 02/18/19 at 00:59; Status DC Diltiazem HCl 125 mg/Dextrose 125 ml @ 5 mls/hr CONT PRN IV SEE I/O RECORD Last administered on 02/18/19at 04:27; Start 02/18/19 at 04:15; Stop 02/18/19 at 16:09; Status DC Linezolid/Dextrose 300 ml @ 300 mls/hr Q12HR IV Last administered on 02/26/19at 20:59; Start 02/18/19 at 09:00; Stop 02/27/19 at 07:42; Status DC Lactobacillus Rhamnosus (Culturelle) 1 cap BID PO Last administered on 02/28/19 08:41; Start 02/18/19 at 21:00 Diltiazem HCl (Cardizem 24hr Cd) 240 mg DAILY PO Last administered on 02/28/19 08:43; Start 02/18/19 at 12:30 Aspirin (Ecotrin) 81 mg [id number] PO Last administered on 02/21/19 08:34; Start 02/18/19 at 16:15; Stop 02/22/19 at 16:16; Status DC Acetaminophen (Tylenol) 650 mg PRN Q6HRS PRN PO FEVER Last administered on 02/22/19 21:39; Start 02/19/19 at 01:45 Acetaminophen (Tylenol Supp) 650 mg PRN Q6HRS PRN MN MILD PAIN/TEMP Last administered on 02/19/19at 02:18; Start 02/19/19 at 02:15 Norepinephrine Bitartrate 250 ml @ 1.875 mls/ hr CONT PRN IV SEE I/O RECORD; Start 02/19/19 at 07:30; Stop 02/23/19 at 11:38; Status DC Digoxin (Lanoxin) 250 mcg 1X ONCE IV Last administered on 02/19/19at 07:36; Start 02/19/19 at 07:30; Stop 02/19/19 at 07:31; Status DC Sodium Chloride 500 ml @ 500 mls/hr 1X ONCE IV Last administered on 02/19/19at 07:35; Start 02/19/19 at 07:30; Stop 02/19/19 at 08:29; Status DC Ondansetron HCl (Zofran) 4 mg Q6HRS IV Last administered on 02/20/19 05:43; Start 02/19/19 at 12:00; Stop 02/20/19 at 10:56; Status DC Pantoprazole Sodium (Protonix) 40 mg BIDAC PO Last administered on 02/21/19 08:34; Start 02/19/19 at 16:30; Stop 02/21/19 at 15:18; Status DC Digoxin (Lanoxin) 250 mcg 1X ONCE IV Last administered on 02/19/19at 22:57; Start 02/19/19 at 23:00; Stop 02/19/19 at 23:01; Status DC Cellulose (Surgicel Hemostat 4x8) 1 each STK-MED ONCE .ROUTE ; Start 02/14/19 at 15:23; Stop 02/20/19 at 08:42; Status DC Cellulose (Surgicel Hemostat 4x8) 1 each STK-MED ONCE .ROUTE ; Start 02/14/19 at 15:50; Stop 02/20/19 at 08:42; Status DC Propofol 20 ml @ As Directed STK-MED ONCE IV ; Start 02/14/19 at 16:05; Stop 02/20/19 at 08:42; Status DC Famotidine (Pepcid Vial) 20 mg STK-MED ONCE .ROUTE ; Start 02/14/19 at 16:05; Stop 02/20/19 at 08:42; Status DC Lidocaine HCl (Lidocaine Pf 2% Vial) 5 ml STK-MED ONCE .ROUTE ; Start 02/14/19 at 16:05; Stop 02/20/19 at 08:42; Status DC Ondansetron HCl (Zofran) 4 mg STK-MED ONCE .ROUTE ; Start 02/14/19 at 16:05; Stop 02/20/19 at 08:42; Status DC Rocuronium [place] (Zemuron) 100 mg STK-MED ONCE .ROUTE ; Start 02/14/19 at 16:05; Stop 02/20/19 at 08:42; Status DC Fentanyl Citrate (Fentanyl 2ml Vial) 100 mcg STK-MED ONCE .ROUTE ; Start 02/14/19 at 16:06; Stop 02/20/19 at 08:42; Status DC Dexamethasone Sodium Phosphate (Decadron) 4 mg STK-MED ONCE .ROUTE ; Start 02/14/19 at 16:06; Stop 02/20/19 at 08:42; Status DC Neostigmine Methylsulfate (Neostigmine Methylsulfate) 5 mg STK-MED ONCE .ROUTE ; Start 02/14/19 at 17:26; Stop 02/20/19 at 08:42; Status DC Glycopyrrolate (Robinul) 1 mg STK-MED ONCE .ROUTE ; Start 02/14/19 at 17:26; Stop 02/20/19 at 08:42; Status DC Ondansetron HCl (Zofran) 4 mg PRN Q6HRS PRN IV NAUSEA/VOMITING; Start 02/20/19 at 10:54 Metoprolol Tartrate (Lopressor) 25 mg BID PO Last administered on 02/21/19at 20:44; Start 02/20/19 at 12:15; Stop 02/22/19 at 10:28; Status DC Ringer's Solution 1,000 ml @ 50 mls/hr Q20H IV Last administered on 02/21/19at 14:47; Start 02/21/19 at 07:00; Stop 02/21/19 at 18:59; Status DC Midazolam HCl (Versed) 2 mg PRN 1X PRN IV PRIOR TO PROCEDURE; Start 02/21/19 at 12:30; Stop 02/22/19 at 12:29; Status DC Fentanyl Citrate (Fentanyl 2ml Vial) 25 mcg PRN Q5MIN PRN IV X 2 DOSES FOR PAIN; Start 02/21/19 at 12:30; Stop 02/22/19 at 12:29; Status DC Fentanyl Citrate (Fentanyl 2ml Vial) 50 mcg PRN Q5MIN PRN IV X 2 DOSES FOR PAIN; Start 02/21/19 at 12:30; Stop 02/22/19 at 12:29; Status DC Ringer's Solution 1,000 ml @ 125 mls/hr Q8H IV Last administered on 02/21/19at 12:27; Start 02/21/19 at 12:27; Stop 02/22/19 at 00:26; Status DC Lidocaine HCl (Xylocaine-Mpf 1% 2ml Vial) 2 ml 1X PRN PRN ID IV START; Start 02/21/19 at 12:30; Stop 02/22/19 at 12:29; Status DC Pantoprazole Sodium 80 mg/ Sodium Chloride 100 ml @ 10 mls/hr Q10H IV Last administered on 02/27/19at 01:40; Start 02/21/19 at 15:30; Stop 02/27/19 at 11:26; Status DC Metoprolol Tartrate (Lopressor Vial) 5 mg Q6HRS IVP Last administered on 02/28/19at 05:55; Start 02/22/19 at 12:00 Lidocaine/Sodium Bicarbonate (Buffered Lidocaine 1%) 3 ml STK-MED ONCE .ROUTE ; Start 02/22/19 at 12:08; Stop 02/22/19 at 12:09; Status DC Midazolam HCl (Versed) 2 mg STK-MED ONCE .ROUTE ; Start 02/22/19 at 12:21; Stop 02/22/19 at 12:22; Status DC Fentanyl Citrate (Fentanyl 2ml Vial) 100 mcg STK-MED ONCE .ROUTE ; Start 02/22/19 at 12:21; Stop 02/22/19 at 12:22; Status DC Lidocaine/Sodium Bicarbonate (Buffered Lidocaine 1%) 3 ml 1X ONCE IJ Last administered on 02/22/19 13:00; Start 02/22/19 at 12:30; Stop 02/22/19 at 12:31; Status DC Midazolam HCl (Versed) 2 mg 1X ONCE IV Last administered on 02/22/19 13:01; Start 02/22/19 at 12:30; Stop 02/22/19 at 12:31; Status DC Fentanyl Citrate (Fentanyl 2ml Vial) 100 mcg 1X ONCE IV Last administered on 02/22/19 13:02; Start 02/22/19 at 12:30; Stop 02/22/19 at 12:31; Status DC Furosemide (Lasix) 40 mg 1X ONCE IVP Last administered on 02/22/19 16:20; Start 02/22/19 at 16:15; Stop 02/22/19 at 16:16; Status DC Hydralazine HCl (Apresoline Inj) 10 mg PRN Q4HRS PRN IVP ELEVATED BP, SEE COMMENTS Last administered on 02/28/19at 03:12; Start 02/22/19 at 16:15 Digoxin (Lanoxin) 250 mcg PRN DAILY PRN IV SEE COMMENTS; Start 02/22/19 at 16:15 Albumin Human 100 ml @ 100 mls/hr 1X ONCE IV Last administered on 02/22/19 16:20; Start 02/22/19 at 16:15; Stop 02/22/19 at 17:14; Status DC Aspirin (Aspirin) 150 mg DAILY MN Last administered on 02/27/19at 09:10; Start 02/22/19 at 17:00 Info (Tpn Per Pharmacy) 1 each PRN DAILY PRN MC SEE COMMENTS Last administered on 5/8/19at 12:28; Start 02/23/19 at 11:45 Sodium Chloride 90 meq/Potassium Chloride 70 meq/ Potassium Phosphate 13.6 mmol/Magnesium Sulfate 15 meq/ Calcium Gluconate 10 meq/ Multivitamins 10 ml/Chromium/ Copper/Manganese/ Seleni/Zn 1 ml/ Total Parenteral Nutrition/Amino Acids/Dextrose/ Fat Emulsion Intravenous 1,512 ml @ 63 mls/hr TPN CONT IV Last administered on 02/23/19at 21:28; Start 02/23/19 at 22:00; Stop 02/24/19 at 21:59; Status DC Potassium Chloride/Water 50 ml @ 50 mls/hr Q1H IV Last administered on 02/23/19at 15:31; Start 02/23/19 at 15:00; Stop 02/23/19 at 16:59; Status DC Morphine Sulfate (Morphine Sulfate) 2 mg PRN Q2HR PRN IV PAIN; Start 02/24/19 at 12:00 Sodium Chloride 90 meq/Potassium Chloride 70 meq/ Potassium Phosphate 25 mmol/ Magnesium Sulfate 15 meq/Calcium Gluconate 10 meq/ Multivitamins 10 ml/Chromium/ Copper/Manganese/ Seleni/Zn 1 ml/ Total Parenteral Nutrition/Amino Acids/Dextrose/ Fat Emulsion Intravenous 1,512 ml @ 63 mls/hr TPN CONT IV Last administered on 02/24/19at 22:47; Start 02/24/19 at 22:00; Stop 02/25/19 at 21:59; Status DC Artificial Tears (Artificial Tears) 1 drop PRN BID PRN OU DRY EYE; Start 02/24/19 at 18:45 Temazepam (Restoril) 15 mg PRN QHS PRN PO INSOMNIA Last administered on 02/27/19at 22:15; Start 02/25/19 at 13:30 Sodium Chloride 90 meq/Potassium Chloride 70 meq/ Potassium Phosphate 25 mmol/ Magnesium Sulfate 15 meq/Calcium Gluconate 10 meq/ Multivitamins 10 ml/Chromium/ Copper/Manganese/ Seleni/Zn 1 ml/ Total Parenteral Nutrition/Amino Acids/Dextr ose/ Fat Emulsion Intravenous 1,512 ml @ 63 mls/hr TPN CONT IV Last administered on 02/25/19at 21:06; Start 02/25/19 at 22:00; Stop 02/26/19 at 21:59; Status DC Vitamin D (Vitamin D3) 2,000 unit QHS PO Last administered on 02/27/19 21:12; Start 02/26/19 at 21:00 Cyanocobalamin (Vitamin B-12) 1,000 mcg QHS PO Last administered on 02/27/19at 21:12; Start 02/26/19 at 21:00 Multivitamins (Thera M Plus) 1 tab QHS PO Last administered on 02/27/19 21:12; Start 02/26/19 at 21:00 Iohexol (Omnipaque 300 Mg/ml) 300 ml 1X ONCE PO ; Start 02/26/19 at 09:00; Stop 02/26/19 at 09:01; Status DC Barium Sulfate (Liquid E-Z Paque) 355 ml 1X ONCE PO Last administered on 02/26/19at 11:15; Start 02/26/19 at 11:15; Stop 02/26/19 at 11:18; Status DC Sodium Chloride 90 meq/Potassium Chloride 70 meq/ Potassium Phosphate 25 mmol/ Magnesium Sulfate 15 meq/Calcium Gluconate 10 meq/ Multivitamins 10 ml/Chromium/ Copper/Manganese/ Seleni/Zn 1 ml/ Total Parenteral Nutrition/Amino Acids/Dextrose/ Fat Emulsion Intravenous 1,512 ml @ 63 mls/hr TPN CONT IV Last administered on 02/26/19at 22:36; Start 02/26/19 at 22:00; Stop 02/27/19 at 21:59; Status DC Pantoprazole Sodium (Protonix) 40 mg BIDAC PO Last administered on 02/28/19at 05:56; Start 02/27/19 at 16:30 Sodium Chloride 90 meq/Potassium Chloride 70 meq/ Potassium Phosphate 25 mmol/ Magnesium Sulfate 15 meq/Calcium Gluconate 10 meq/ Multivitamins 10 ml/Chromium/ Copper/Manganese/ Seleni/Zn 1 ml/ Total Parenteral Nutrition/Amino Acids/Dextrose/ Fat Emulsion Intravenous 1,512 ml @ 63 mls/hr TPN CONT IV Last administered on 02/27/19at 22:27; Start 02/27/19 at 22:00; Stop 02/28/19 at 21:59 Oxymetazoline HCl (Afrin) 1 spray PRN Q12HR PRN NS CONGESTION; Start 02/28/19 at 10:15 Barium Sulfate (Varibar Thin Liquid Apple) 148 gm 1X ONCE PO ; Start 02/28/19 at 10:15; Stop 02/28/19 at 10:16; Status DC Active Scripts Active Atorvastatin Calcium 40 Mg Tablet 40 Mg PO QHS 30 Days Reported Flomax (Tamsulosin Hcl) 0.4 Mg Cap.er.24h 0.4 Mg PO DAILY Clopidogrel (Clopidogrel Bisulfate) 75 Mg Tablet 75 Mg PO DAILY Aspirin 81 Mg Tab.chew 1 Tab PO DAILY Vitamin B-12 (Cyanocobalamin (Vitamin B-12)) 1,000 Mcg Tablet 1 Tab PO DAILY Metoprolol Succinate ( Xl ) (Metoprolol Succinate) 25 Mg Tab.er.24h 1 Tab PO DAILY Losartan Potassium 100 Mg Tablet 100 Mg PO DAILY Multivitamins (Multivitamin) 1 Each Tablet 1 Tab PO DAILY Vitamin D (Cholecalciferol (Vitamin D3)) 2,000 Unit Capsule 1 Cap PO DAILY Vitals/I & O Vital Sign - Last 24 Hours 02/27/19 02/27/19 02/27/19 02/27/19 11:40 11:55 12:10 12:33 Temp 97.8 97.6 97.8 97.8 97.6 97.8 Pulse 86 76 82 82 Resp 16 18 16 B/P (MAP) 170/72 143/57 149/84 149/84 02/27/19 02/27/19 02/27/19 02/27/19 12:40 13:40 13:50 14:36 Temp 97.6 98.0 97.7 97.8 97.6 98.0 97.7 97.8 Pulse 71 68 71 78 Resp 16 18 18 18 B/P (MAP) 152/61 156/67 163/69 155/62 (93) Pulse Ox 94 O2 Delivery Nasal Cannula O2 Flow Rate 4.0 02/27/19 02/27/19 02/27/19 02/27/19 17:42 18:03 19:20 23:54 Temp 98.0 98.0 98.0 98.0 Pulse 78 67 74 Resp 24 23 B/P (MAP) 155/62 146/65 (92) 166/59 (94) Pulse Ox 96 94 O2 Delivery Nasal Cannula Nasal Cannula Nasal Cannula O2 Flow Rate 4.0 3.0 3.0 02/28/19 02/28/19 02/28/19 02/28/19 00:04 02:59 03:12 05:55 Temp 98.1 98.1 Pulse 88 83 82 75 Resp 25 B/P (MAP) 166/59 179/77 (111) 179/77 182/73 Pulse Ox 98 O2 Delivery Nasal Cannula O2 Flow Rate 3.0 02/28/19 02/28/19 02/28/19 07:00 08:43 08:43 Temp 97.6 97.6 Pulse 68 68 68 Resp 22 B/P (MAP) 159/62 (94) 159/62 159/62 Pulse Ox 97 O2 Delivery Nasal Cannula O2 Flow Rate 3.0 Intake and Output 02/27/19 02/27/19 02/28/19 15:00 23:00 07:00 Intake Total 100 ml 1912 ml 778 ml Output Total 1200 ml 880 ml Balance 100 ml 712 ml -102 ml BRI WARD III DO February 28, 2019 11:23
[2019-02-28] MEDS ORDERED: FUROSEMIDE 40 MG/4 ML VIAL. IVP ONE (12:30)
--- NOTE | 2019-02-28 12:35 | NUR ---
SS following up with discharge planning. SS phoned and faxed clinical updates to [facility], ; fax [phone]. Currently waiting on insurance authorization for intermediate unit from [place]. SS will continue to follow for discharge planning.
[2019-02-28] MEDS: TPN PER PHARMACY MC PRN (13:00)
--- NOTE | 2019-02-28 13:01 | NUR ---
Pharmacy TPN Dosing Note S: SHELDONRUDY Flores is a 83 year old M Currently receiving Central Continuous TPN started 02/23/19 B:Pertinent PMH: GASTRIC OUTLET OBSTRUCTION Height: 6 feet, 0 inches Weight: 103.119578 kg Current diet: NPO LABS: Sodium: 136 Potassium: 4.5 Chloride: 106 Calcium: 7.9 Corrected Calcium: 9.90 Magnesium: 2.0 CO2: 21 SCr: 1.1 Glucose: 126 Albumin: 1.5 AST: 29 ALT: 25 TPN FORMULA: TPN TYPE: Central Continuous AMINO ACIDS: 90 gm DEXTROSE: 250 gm LIPIDS: 20 gm SODIUM CHLORIDE: 90 mEq SODIUM ACETATE: mEq SODIUM PHOSPHATE: mmol POTASSIUM CHLORIDE: 30 mEq POTASSIUM ACETATE: mEq POTASSIUM PHOSPHATE: 25 mmol MAGNESIUM: 15 mEq CALCIUM: 10 mEq INSULIN: units MULTIPLE VITAMIN: 10 ml TRACE ELEMENTS: 1 ml(s) TPN PLAN: -now has cardiac diet, no appetite, not eating much, continue TPN for now -Potassium trending up, will reduce KCl to 30meq -Labs in the am R: Continue TPN as written above. Will monitor electrolytes, glucose, and tolerance to TPN. REBEKA [facility], 02/28/19 [id number]
--- NOTE | 2019-02-28 13:19 | RAD ---
Video dysphasia study, 02/28/2019: History: Dysphasia The swallowing mechanism was examined fluoroscopically in the lateral projection ingesting a variety of food materials mixed with barium. 3.3 minutes of fluoroscopy time was utilized. One video fluoroscopic loop was recorded by a member of the speech Department. When ingesting the thin liquids there was intermittent deep laryngeal penetration and one episode of eliseo aspiration. This elicited a cough reflex. When the chin tuck maneuver was utilized the laryngeal penetration abated. No aspiration was evident with the nectar consistency or honey thickened material. With the thicker materials and barium coated solids there tended be a moderate amount of vallecular residue following swallowing. IMPRESSION: Intermittent aspiration of the thin liquids which abated when the thicker materials or chin tuck maneuver were utilized.
[2019-02-28 15:00] VITALS: BP 142/55
--- NOTE | 2019-02-28 16:13 | PDOC ---
Objective: Objective: D/w RN - drank Glucerna and ate applesauce today, TPN stopped, possible DC to SNU tomorrow. Vital Signs: Vital Signs Date Time Temp Pulse Resp B/P (MAP) Pulse Ox O2 Delivery O2 Flow Rate FiO2 02/28/19 15:00 98.1 64 22 142/55 (84) 96 Nasal Cannula 3.0 98.1 Labs: Laboratory Tests Test 02/27/19 17:20 02/28/19 06:15 02/28/19 06:18 02/28/19 11:47 Glucose (Fingerstick) 172 mg/dL 126 mg/dL 122 mg/dL White Blood Count 15.4 x10^3/uL Red Blood Count 2.65 x10^6/uL Hemoglobin 7.9 g/dL Hematocrit 24.4 % Mean Corpuscular Volume 92 fL Mean Corpuscular Hemoglobin 30 pg Mean Corpuscular Hemoglobin Concent 33 g/dL Red Cell Distribution Width 16.6 % Platelet Count 384 x10^3/uL Neutrophils (%) (Auto) 80 % Lymphocytes (%) (Auto) 8 % Monocytes (%) (Auto) 8 % Eosinophils (%) (Auto) 5 % Basophils (%) (Auto) 1 % Neutrophils # (Auto) 12.3 x10^3uL Lymphocytes # (Auto) 1.2 x10^3/uL Monocytes # (Auto) 1.2 x10^3/uL Eosinophils # (Auto) 0.7 x10^3/uL Basophils # (Auto) 0.1 x10^3/uL Sodium Level 136 mmol/L Potassium Level 4.5 mmol/L Chloride Level 106 mmol/L Carbon Dioxide Level 21 mmol/L Anion Gap 9 Blood Urea Nitrogen 20 mg/dL Creatinine 1.1 mg/dL Estimated GFR (Cockcroft-Gault) 63.9 Glucose Level 126 mg/dL Calcium Level 7.9 mg/dL Phosphorus Level 2.6 mg/dL Magnesium Level 2.0 mg/dL Imaging: Videoswallow IMPRESSION: Intermittent aspiration of the thin liquids which abated when the thicker materials or chin tuck maneuver were utilized. PE: GEN: NAD NEURO/PSYCH: sleeping, not awakened A/P: DU w/ edema, esophagitis -- Tolerating PO, possible DC to SNU soon. Continue PPI. MARU HOLCOMB February 28, 2019 16:13
[2019-02-28 19:36] VITALS: BP 97/52
[2019-02-28] MEDS: CHOLECALCIFEROL (VITAMIN D3) 1,000 UNIT TABLET PO SCH (20:55)
[2019-02-28] MEDS: CYANOCOBALAMIN (VITAMIN B-12) 1,000 MCG TABLET. PO SCH (20:55)
[2019-02-28] MEDS: MULTIVITAMIN with MINERAL TABLET. PO SCH (20:56)
[2019-02-28] MEDS: ATORVASTATIN CALCIUM 40 MG TABLET. PO SCH (20:56)
[2019-02-28] MEDS: METOPROLOL TART IMMED RELEASE 25 MG TABLET. PO SCH (20:58)
[2019-02-28] MEDS ORDERED: [UNRECOGNIZED DRUG - OTHER] IV SCH ×10 (22:00)
[2019-02-28] MEDS ORDERED: AMINO ACID IV SCH ×10 (22:00)
[2019-02-28] MEDS ORDERED: DEXTROSE 70% IV SCH ×10 (22:00)
[2019-02-28] MEDS ORDERED: TOTAL PARENTERAL NUTRITION IV SCH ×10 (22:00)
[2019-02-28] MEDS: TEMAZEPAM 15 MG CAPSULE PO PRN (23:20)
[2019-02-28 23:38] VITALS: BP 151/70
[2019-03-01] MEDS: PIPERACILLIN/TAZOBACTAM 3.375 GM in IV NORMAL SALINE 50ML 50 ML IV SCH ×2 (01:23→06:02)
[2019-03-01 03:15] VITALS: BP 144/57
[2019-03-01 05:42] LABS: BASO # 0.1 x10^3/uL (0.0-0.2); BASO % 1 % (0-3); EOS # 0.6 x10^3/uL (0.0-0.7); EOS % 5 % (0-3); HEMATOCRIT 22.7 % (39.0-53.0); HEMOGLOBIN 7.5 g/dL (13.0-17.5); LYMPH # 1.3 x10^3/uL (1.0-4.8); LYMPH % 10 % (24-48); MEAN CORPUSCULAR HEMOGLOBIN 30 pg (25-35); MEAN CORPUSCULAR HGB CONC 33 g/dL (31-37); MEAN CORPUSCULAR VOLUME 92 fL (79-100); MONO # 1.3 x10^3/uL (0.0-1.1); MONO % 10 % (0-9); NEUT # 10.4 x10^3uL (1.8-7.7); NEUT % 76 % (31-73); PLATELET COUNT 355 x10^3/uL (140-400); RED BLOOD COUNT 2.47 x10^6/uL (4.30-5.70); RED CELL DISTRIBUTION WIDTH 16.7 % (11.5-14.5); WHITE BLOOD COUNT 13.8 x10^3/uL (4.0-11.0)
[2019-03-01] MEDS: PANTOPRAZOLE 40 MG TABLET.DR. PO SCH (06:02)
[2019-03-01 06:04] LABS: CALCIUM 7.9 mg/dL (8.5-10.1); CREATININE 1.2 mg/dL (0.7-1.3); GFR 57.8; POTASSIUM 4.1 mmol/L (3.5-5.1)
[2019-03-01 07:25] VITALS: BP 132/72
--- NOTE | 2019-03-01 07:39 | PDOC ---
Infectious Disease Note Subjective: Subjective Pt is tolerating po intake denies pain/N/V sob and cough is improving Off TPN No fevers/chills ROS: ROS Negative except for above. Vital Signs: Vital Signs Vital Signs Date Time Temp Pulse Resp B/P (MAP) Pulse Ox O2 Delivery O2 Flow Rate FiO2 03/01/19 07:25 98.0 71 21 132/72 (92) 93 Nasal Cannula 3.0 98.0 Physical Exam: PHYSICAL EXAM GENERAL: Sitting in the chair, relaxed appearance HEENT: Oral cavity clear, dry NECK: Supple, no JVP, no lymphadenopathy. LUNGS: Clear. HEART: S1, S2 regular. ABDOMEN: Obese, soft,NT, NICOLAS [address], purulent drainage. Small incision approx sutures, clean EXTREMITIES: Bilat LE trace edema, no cyanosis SKIN: No rash NEUROLOGIC: Alert, responds appropriately RUE-PICC (02/22) clean Medications: Inpatient Meds: Current Medications Medications (Trade) Dose Ordered Sig/Zane Start Time Stop Time Status Last Admin Dose Admin Acetaminophen (Tylenol Supp) 650 mg PRN Q6HRS PRN 02/19/19 02:15 02/19/19 02:18 650 MG Acetaminophen (Tylenol) 650 mg PRN Q6HRS PRN 02/19/19 01:45 02/22/19 21:39 650 MG Acetaminophen/ Hydrocodone Bitart (Lortab 5/325) 2 tab PRN Q4HRS PRN 02/14/19 14:00 02/17/19 03:22 2 TAB Albumin Human 100 ml @ 100 mls/hr 1X ONCE 02/22/19 16:15 02/22/19 17:14 DC 02/22/19 16:20 100 MLS/HR Artificial Tears (Artificial Tears) 1 drop PRN BID PRN 02/24/19 18:45 Aspirin (Aspirin) 150 mg DAILY 02/22/19 17:00 02/28/19 12:18 DC 02/27/19 09:10 150 MG Aspirin (Ecotrin) 81 mg [id number] 03/01/19 08:00 Atorvastatin Calcium (Lipitor) 40 mg QHS 02/14/19 21:00 02/28/19 20:56 40 MG Bacitracin (Bacitracin) 50,000 unit STK-MED ONCE 02/14/19 15:14 02/14/19 16:15 DC 02/14/19 16:49 50,000 UNIT Barium Sulfate (Liquid E-Z Paque) 355 ml 1X ONCE 02/26/19 11:15 02/26/19 11:18 DC 02/26/19 11:15 355 ML Barium Sulfate (Varibar Thin Liquid Apple) 148 gm 1X ONCE 02/28/19 10:15 02/28/19 10:16 DC 02/28/19 13:00 148 GM Bupivacaine HCl/ Epinephrine Bitart (Sensorcain-Mpf Epi 0.5%-1:[id number]) 30 ml STK-MED ONCE 02/14/19 15:13 02/14/19 16:14 DC Calcium Carbonate/ Glycine (Tums) 500 mg PRN AFTMEALHC PRN 02/17/19 15:00 02/27/19 09:09 500 MG Cefazolin Sodium/ Dextrose (Ancef 2gm Premix) 2 gm STK-MED ONCE 02/14/19 11:00 02/15/19 13:02 DC Cellulose (Surgicel Hemostat 4x8) 1 each STK-MED ONCE 02/14/19 15:50 02/20/19 08:42 DC Clopidogrel Bisulfate (Plavix) 75 mg DAILY 02/17/19 14:00 02/28/19 08:42 75 MG Cyanocobalamin (Vitamin B-12) 1,000 mcg QHS 02/26/19 21:00 02/28/19 20:55 1,000 MCG Dexamethasone Sodium Phosphate (Decadron) 4 mg STK-MED ONCE 02/14/19 16:06 02/20/19 08:42 DC Dextrose (Dextrose 50%-Water Syringe) 12.5 gm PRN Q15MIN PRN 02/14/19 14:00 Digoxin (Lanoxin) 250 mcg PRN DAILY PRN 02/22/19 16:15 Diltiazem HCl (Cardizem 24hr Cd) 240 mg DAILY 02/18/19 12:30 02/28/19 08:43 240 MG Diltiazem HCl 125 mg/Dextrose 125 ml @ 5 mls/hr CONT PRN 02/18/19 04:15 02/18/19 16:09 DC 02/18/19 04:27 5 MLS/HR Diphenhydramine HCl (Benadryl) 25 mg PRN Q6HRS PRN 02/14/19 14:00 02/23/19 20:43 25 MG Docusate Sodium (Colace) 100 mg BID 02/14/19 21:00 02/28/19 08:41 100 MG Famotidine (Pepcid Vial) 20 mg STK-MED ONCE 02/14/19 16:05 02/20/19 08:42 DC Fentanyl Citrate (Fentanyl 2ml Vial) 100 mcg 1X ONCE 02/22/19 12:30 02/22/19 12:31 DC 02/22/19 13:02 50 MCG Furosemide (Lasix) 40 mg 1X ONCE 02/28/19 12:30 02/28/19 12:31 DC 02/28/19 13:45 40 MG Glucagon (Glucagen) 1 mg STK-MED ONCE 02/14/19 10:01 02/14/19 11:02 DC Glycopyrrolate (Robinul) 1 mg STK-MED ONCE 02/14/19 17:26 02/20/19 08:42 DC Hydralazine HCl (Apresoline Inj) 10 mg PRN Q4HRS PRN 02/22/19 16:15 02/28/19 03:12 10 MG Hydromorphone HCl (Dilaudid) 1 mg PRN Q4HRS PRN 02/14/19 14:00 02/24/19 11:48 DC 02/23/19 09:46 1 MG Info (Tpn Per Pharmacy) 1 each PRN DAILY PRN 02/23/19 11:45 02/28/19 13:32 DC 02/28/19 13:00 1 EACH Iohexol (Omnipaque 300 Mg/ml) 300 ml 1X ONCE 02/26/19 09:00 02/26/19 09:01 DC Lactobacillus Rhamnosus (Culturelle) 1 cap BID 02/18/19 21:00 02/28/19 20:56 1 CAP Lidocaine HCl (Lidocaine Pf 2% Vial) 5 ml STK-MED ONCE 02/14/19 16:05 02/20/19 08:42 DC Lidocaine HCl (Xylocaine-Mpf 1% 2ml Vial) 2 ml 1X PRN PRN 02/21/19 12:30 02/22/19 12:29 DC Lidocaine/Sodium Bicarbonate (Buffered Lidocaine 1%) 3 ml 1X ONCE 02/22/19 12:30 02/22/19 12:31 DC 02/22/19 13:00 6 ML Linezolid/Dextrose 300 ml @ 300 mls/hr Q12HR 02/18/19 09:00 02/27/19 07:42 DC 02/26/19 20:59 300 MLS/HR Losartan Potassium (Cozaar) 100 mg DAILY 02/15/19 09:00 02/28/19 08:43 100 MG Metoprolol Succinate (Toprol Xl) 25 mg DAILY 02/15/19 09:00 02/20/19 12:11 DC 02/20/19 07:53 25 MG Metoprolol Tartrate (Lopressor Vial) 5 mg Q6HRS 02/22/19 12:00 02/28/19 12:18 DC 02/28/19 12:18 5 MG Metoprolol Tartrate (Lopressor) 25 mg BID 02/28/19 21:00 02/28/19 20:58 25 MG Midazolam HCl (Versed) 2 mg 1X ONCE 02/22/19 12:30 02/22/19 12:31 DC 02/22/19 13:01 1 MG Morphine Sulfate (Morphine Sulfate) 2 mg PRN Q2HR PRN 02/24/19 12:00 Multivitamins (Thera M Plus) 1 tab QHS 02/26/19 21:00 02/28/19 20:56 1 TAB Neostigmine Methylsulfate (Neostigmine Methylsulfate) 5 mg STK-MED ONCE 02/14/19 17:26 02/20/19 08:42 DC Norepinephrine Bitartrate 250 ml @ 1.875 mls/ hr CONT PRN 02/19/19 07:30 02/23/19 11:38 DC Ondansetron HCl (Zofran) 4 mg PRN Q6HRS PRN 02/20/19 10:54 Oxymetazoline HCl (Afrin) 1 spray PRN Q12HR PRN 02/28/19 10:15 02/28/19 12:30 1 SPRAY Pantoprazole Sodium (Protonix) 40 mg BIDAC 02/27/19 16:30 03/01/19 06:02 40 MG Pantoprazole Sodium 80 mg/ Sodium Chloride 100 ml @ 10 mls/hr Q10H 02/21/19 15:30 02/27/19 11:26 DC 02/27/19 01:40 10 MLS/HR Piperacillin Sod/ Tazobactam Sod 3.375 gm/Sodium Chloride 50 ml @ 100 mls/hr Q6HRS 02/17/19 12:00 03/01/19 06:02 100 MLS/HR Potassium Chloride/Sodium Chloride 1,000 ml @ 80 mls/hr [id number] 02/14/19 15:00 02/17/19 12:54 DC 02/17/19 06:02 80 MLS/HR Potassium Chloride/Water 50 ml @ 50 mls/hr Q1H 02/23/19 15:00 02/23/19 16:59 DC 02/23/19 15:31 50 MLS/HR Prochlorperazine Edisylate (Compazine) 5 mg PACU PRN PRN 02/14/19 07:00 02/14/19 20:00 DC Propofol 20 ml @ As Directed STK-MED ONCE 02/14/19 16:05 02/20/19 08:42 DC Ringer's Solution 1,000 ml @ 125 mls/hr Q8H 02/21/19 12:27 02/22/19 00:26 DC 02/21/19 12:27 125 MLS/HR Rocuronium Kinta (Zemuron) 100 mg STK-MED ONCE 02/14/19 16:05 02/20/19 08:42 DC Sevoflurane (Ultane) 60 ml STK-MED ONCE 02/14/19 08:17 02/14/19 08:18 DC Sodium Chloride (Normal Saline Flush) 3 ml QSHIFT PRN 02/14/19 14:00 Sodium Chloride (SODIUM CHLORIDE 20ml) 20 ml STK-MED ONCE 02/14/19 15:15 02/14/19 16:15 DC Sodium Chloride 90 meq/Potassium Chloride 30 meq/ Potassium Phosphate 25 mmol/ Magnesium Sulfate 15 meq/Calcium Gluconate 10 meq/ Multivitamins 10 ml/Chromium/ Copper/Manganese/ Seleni/Zn 1 ml/ Total Parenteral Nutrition/Amino Acids/Dextrose/ Fat Emulsion Intravenous 1,512 ml @ 63 mls/hr TPN CONT 02/28/19 22:00 02/28/19 22:28 DC Sodium Chloride 90 meq/Potassium Chloride 70 meq/ Potassium Phosphate 13.6 mmol/Magnesium Sulfate 15 meq/ Calcium Gluconate 10 meq/ Multivitamins 10 ml/Chromium/ Copper/Manganese/ Seleni/Zn 1 ml/ Total Parenteral Nutrition/Amino Acids/Dextrose/ Fat Emulsion Intravenous 1,512 ml @ 63 mls/hr TPN CONT 02/23/19 22:00 02/24/19 21:59 DC 02/23/19 21:28 63 MLS/HR Sodium Chloride 90 meq/Potassium Chloride 70 meq/ Potassium Phosphate 25 mmol/ Magnesium Sulfate 15 meq/Calcium Gluconate 10 meq/ Multivitamins 10 ml/Chromium/ Copper/Manganese/ Seleni/Zn 1 ml/ Total Parenteral Nutrition/Amino Acids/Dextrose/ Fat Emulsion Intravenous 1,512 ml @ 63 mls/hr TPN CONT 02/27/19 22:00 02/28/19 21:59 DC 02/27/19 22:27 63 MLS/HR Tamsulosin HCl (Flomax) 0.4 mg DAILY 02/15/19 09:00 02/28/19 08:41 0.4 MG Temazepam (Restoril) 15 mg PRN QHS PRN 02/25/19 13:30 02/28/19 23:20 15 MG Vitamin D (Vitamin D3) 2,000 unit QHS 02/26/19 21:00 02/28/19 20:55 2,000 UNIT Labs: Lab Laboratory Tests Test 02/28/19 11:47 03/01/19 05:30 Glucose (Fingerstick) 122 mg/dL (70-99) White Blood Count 13.8 x10^3/uL (4.0-11.0) Red Blood Count 2.47 x10^6/uL (4.30-5.70) Hemoglobin 7.5 g/dL (13.0-17.5) Hematocrit 22.7 % (39.0-53.0) Mean Corpuscular Volume 92 fL (79-100) Mean Corpuscular Hemoglobin 30 pg (25-35) Mean Corpuscular Hemoglobin Concent 33 g/dL (31-37) Red Cell Distribution Width 16.7 % (11.5-14.5) Platelet Count 355 x10^3/uL (140-400) Neutrophils (%) (Auto) 76 % (31-73) Lymphocytes (%) (Auto) 10 % (24-48) Monocytes (%) (Auto) 10 % (0-9) Eosinophils (%) (Auto) 5 % (0-3) Basophils (%) (Auto) 1 % (0-3) Neutrophils # (Auto) 10.4 x10^3uL (1.8-7.7) Lymphocytes # (Auto) 1.3 x10^3/uL (1.0-4.8) Monocytes # (Auto) 1.3 x10^3/uL (0.0-1.1) Eosinophils # (Auto) 0.6 x10^3/uL (0.0-0.7) Basophils # (Auto) 0.1 x10^3/uL (0.0-0.2) Sodium Level 137 mmol/L (136-145) Potassium Level 4.1 mmol/L (3.5-5.1) Chloride Level 105 mmol/L (98-107) Carbon Dioxide Level 24 mmol/L (21-32) Anion Gap 8 (6-14) Blood Urea Nitrogen 19 mg/dL (8-26) Creatinine 1.2 mg/dL (0.7-1.3) Estimated GFR (Cockcroft-Gault) 57.8 Glucose Level 102 mg/dL (70-99) Calcium Level 7.9 mg/dL (8.5-10.1) Objective: Assessment: Fever,resolved Leukocytosis improving Anemia s/p RBC s/p CT-guided drainage, gallbladder fossa fluid collection, 02/22. E coli p ansensitive and Bacteroides thetaiotaomicron s/p lap cholecystectomy, followed by lap exploration on 02/14 Hypertension. Hyperlipidemia. Atrial fibrillation Pulm infiltrates/effusion likely venous congestion Plan: Plan of Care Pt will likely be dc later today per team rahat Fam(02/17) transition to po augmentin for 5 more days Probiotics drain management per Surgery DC PICC line if not needed D/W RN NED POWELL MD March 01, 2019 07:39
[2019-03-01] MEDS ORDERED: ASPIRIN ENTERIC COATED 81 MG TABLET.DR. PO SCH (08:00)
[2019-03-01] MEDS: TAMSULOSIN 0.4 MG CAP.ER.24H. PO SCH (09:00)
[2019-03-01] MEDS: LACTOBACILLUS RHAMNOSUS GG 1 CAPSULE. PO SCH (09:00)
[2019-03-01] MEDS: DOCUSATE SODIUM 100 MG CAPSULE. PO SCH (09:00)
[2019-03-01] MEDS: CLOPIDOGREL BISULFATE 75 MG TABLET PO SCH (09:00)
[2019-03-01] MEDS: METOPROLOL TART IMMED RELEASE 25 MG TABLET. PO SCH (09:01)
[2019-03-01] MEDS: LOSARTAN POTASSIUM 50 MG TABLET. PO SCH (09:01)
--- NOTE | 2019-03-01 09:19 | PDOC ---
SURGICAL PROGRESS NOTE Subjective having some food this AM plans for rehab Vital Signs Vital Signs Date Time Temp Pulse Resp B/P (MAP) Pulse Ox O2 Delivery O2 Flow Rate FiO2 03/01/19 09:01 71 132/72 03/01/19 07:25 98.0 21 93 Nasal Cannula 3.0 98.0 I&O Intake and Output 03/01/19 07:00 Intake Total 50 ml Output Total 4295 ml Balance -4245 ml IV Total 50 ml Output Urine Total 4250 ml Drainage Total 45 ml General: Alert, Oriented X3, Cooperative, No acute distress Abdomen: Soft, Other (drains in place, minimal output) Labs Laboratory Tests Test 02/27/19 11:56 02/27/19 17:20 02/28/19 06:15 02/28/19 06:18 Glucose (Fingerstick) 121 mg/dL (70-99) 172 mg/dL (70-99) 126 mg/dL (70-99) White Blood Count 15.4 x10^3/uL (4.0-11.0) Red Blood Count 2.65 x10^6/uL (4.30-5.70) Hemoglobin 7.9 g/dL (13.0-17.5) Hematocrit 24.4 % (39.0-53.0) Mean Corpuscular Volume 92 fL (79-100) Mean Corpuscular Hemoglobin 30 pg (25-35) Mean Corpuscular Hemoglobin Concent 33 g/dL (31-37) Red Cell Distribution Width 16.6 % (11.5-14.5) Platelet Count 384 x10^3/uL (140-400) Neutrophils (%) (Auto) 80 % (31-73) Lymphocytes (%) (Auto) 8 % (24-48) Monocytes (%) (Auto) 8 % (0-9) Eosinophils (%) (Auto) 5 % (0-3) Basophils (%) (Auto) 1 % (0-3) Neutrophils # (Auto) 12.3 x10^3uL (1.8-7.7) Lymphocytes # (Auto) 1.2 x10^3/uL (1.0-4.8) Monocytes # (Auto) 1.2 x10^3/uL (0.0-1.1) Eosinophils # (Auto) 0.7 x10^3/uL (0.0-0.7) Basophils # (Auto) 0.1 x10^3/uL (0.0-0.2) Sodium Level 136 mmol/L (136-145) Potassium Level 4.5 mmol/L (3.5-5.1) Chloride Level 106 mmol/L (98-107) Carbon Dioxide Level 21 mmol/L (21-32) Anion Gap 9 (6-14) Blood Urea Nitrogen 20 mg/dL (8-26) Creatinine 1.1 mg/dL (0.7-1.3) Estimated GFR (Cockcroft-Gault) 63.9 Glucose Level 126 mg/dL (70-99) Calcium Level 7.9 mg/dL (8.5-10.1) Phosphorus Level 2.6 mg/dL (2.6-4.7) Magnesium Level 2.0 mg/dL (1.8-2.4) Test 02/28/19 11:47 03/01/19 05:30 Glucose (Fingerstick) 122 mg/dL (70-99) White Blood Count 13.8 x10^3/uL (4.0-11.0) Red Blood Count 2.47 x10^6/uL (4.30-5.70) Hemoglobin 7.5 g/dL (13.0-17.5) Hematocrit 22.7 % (39.0-53.0) Mean Corpuscular Volume 92 fL (79-100) Mean Corpuscular Hemoglobin 30 pg (25-35) Mean Corpuscular Hemoglobin Concent 33 g/dL (31-37) Red Cell Distribution Width 16.7 % (11.5-14.5) Platelet Count 355 x10^3/uL (140-400) Neutrophils (%) (Auto) 76 % (31-73) Lymphocytes (%) (Auto) 10 % (24-48) Monocytes (%) (Auto) 10 % (0-9) Eosinophils (%) (Auto) 5 % (0-3) Basophils (%) (Auto) 1 % (0-3) Neutrophils # (Auto) 10.4 x10^3uL (1.8-7.7) Lymphocytes # (Auto) 1.3 x10^3/uL (1.0-4.8) Monocytes # (Auto) 1.3 x10^3/uL (0.0-1.1) Eosinophils # (Auto) 0.6 x10^3/uL (0.0-0.7) Basophils # (Auto) 0.1 x10^3/uL (0.0-0.2) Sodium Level 137 mmol/L (136-145) Potassium Level 4.1 mmol/L (3.5-5.1) Chloride Level 105 mmol/L (98-107) Carbon Dioxide Level 24 mmol/L (21-32) Anion Gap 8 (6-14) Blood Urea Nitrogen 19 mg/dL (8-26) Creatinine 1.2 mg/dL (0.7-1.3) Estimated GFR (Cockcroft-Gault) 57.8 Glucose Level 102 mg/dL (70-99) Calcium Level 7.9 mg/dL (8.5-10.1) Laboratory Tests Test 02/28/19 11:47 03/01/19 05:30 Glucose (Fingerstick) 122 mg/dL (70-99) White Blood Count 13.8 x10^3/uL (4.0-11.0) Red Blood Count 2.47 x10^6/uL (4.30-5.70) Hemoglobin 7.5 g/dL (13.0-17.5) Hematocrit 22.7 % (39.0-53.0) Mean Corpuscular Volume 92 fL (79-100) Mean Corpuscular Hemoglobin 30 pg (25-35) Mean Corpuscular Hemoglobin Concent 33 g/dL (31-37) Red Cell Distribution Width 16.7 % (11.5-14.5) Platelet Count 355 x10^3/uL (140-400) Neutrophils (%) (Auto) 76 % (31-73) Lymphocytes (%) (Auto) 10 % (24-48) Monocytes (%) (Auto) 10 % (0-9) Eosinophils (%) (Auto) 5 % (0-3) Basophils (%) (Auto) 1 % (0-3) Neutrophils # (Auto) 10.4 x10^3uL (1.8-7.7) Lymphocytes # (Auto) 1.3 x10^3/uL (1.0-4.8) Monocytes # (Auto) 1.3 x10^3/uL (0.0-1.1) Eosinophils # (Auto) 0.6 x10^3/uL (0.0-0.7) Basophils # (Auto) 0.1 x10^3/uL (0.0-0.2) Sodium Level 137 mmol/L (136-145) Potassium Level 4.1 mmol/L (3.5-5.1) Chloride Level 105 mmol/L (98-107) Carbon Dioxide Level 24 mmol/L (21-32) Anion Gap 8 (6-14) Blood Urea Nitrogen 19 mg/dL (8-26) Creatinine 1.2 mg/dL (0.7-1.3) Estimated GFR (Cockcroft-Gault) 57.8 Glucose Level 102 mg/dL (70-99) Calcium Level 7.9 mg/dL (8.5-10.1) Assessment/Plan plans for rehab d/w nursing determine which drain still has some output LACHO OCONNOR APRN March 01, 2019 09:19
--- NOTE | 2019-03-01 09:37 | PDOC ---
PULMONARY PROGRESS NOTES Subjective WALKED IN [place] THIS AM NOT VERY SOA Vitals Vital Signs Date Time Temp Pulse Resp B/P (MAP) Pulse Ox O2 Delivery O2 Flow Rate FiO2 03/01/19 09:01 71 132/72 03/01/19 07:25 98.0 21 93 Nasal Cannula 3.0 98.0 ROS: No Nausea, No Chest Pain, No Increase Cough General: Alert, No acute distress Lungs: Other (DECREASE BASES) Cardiovascular: S1, S2 Abdomen: Soft Neuro Exam: Alert Extremities: Other (1+EDEMA) Skin: Warm Labs Laboratory Tests Test 02/27/19 11:56 02/27/19 17:20 02/28/19 06:15 02/28/19 06:18 Glucose (Fingerstick) 121 mg/dL (70-99) 172 mg/dL (70-99) 126 mg/dL (70-99) White Blood Count 15.4 x10^3/uL (4.0-11.0) Red Blood Count 2.65 x10^6/uL (4.30-5.70) Hemoglobin 7.9 g/dL (13.0-17.5) Hematocrit 24.4 % (39.0-53.0) Mean Corpuscular Volume 92 fL (79-100) Mean Corpuscular Hemoglobin 30 pg (25-35) Mean Corpuscular Hemoglobin Concent 33 g/dL (31-37) Red Cell Distribution Width 16.6 % (11.5-14.5) Platelet Count 384 x10^3/uL (140-400) Neutrophils (%) (Auto) 80 % (31-73) Lymphocytes (%) (Auto) 8 % (24-48) Monocytes (%) (Auto) 8 % (0-9) Eosinophils (%) (Auto) 5 % (0-3) Basophils (%) (Auto) 1 % (0-3) Neutrophils # (Auto) 12.3 x10^3uL (1.8-7.7) Lymphocytes # (Auto) 1.2 x10^3/uL (1.0-4.8) Monocytes # (Auto) 1.2 x10^3/uL (0.0-1.1) Eosinophils # (Auto) 0.7 x10^3/uL (0.0-0.7) Basophils # (Auto) 0.1 x10^3/uL (0.0-0.2) Sodium Level 136 mmol/L (136-145) Potassium Level 4.5 mmol/L (3.5-5.1) Chloride Level 106 mmol/L (98-107) Carbon Dioxide Level 21 mmol/L (21-32) Anion Gap 9 (6-14) Blood Urea Nitrogen 20 mg/dL (8-26) Creatinine 1.1 mg/dL (0.7-1.3) Estimated GFR (Cockcroft-Gault) 63.9 Glucose Level 126 mg/dL (70-99) Calcium Level 7.9 mg/dL (8.5-10.1) Phosphorus Level 2.6 mg/dL (2.6-4.7) Magnesium Level 2.0 mg/dL (1.8-2.4) Test 02/28/19 11:47 03/01/19 05:30 Glucose (Fingerstick) 122 mg/dL (70-99) White Blood Count 13.8 x10^3/uL (4.0-11.0) Red Blood Count 2.47 x10^6/uL (4.30-5.70) Hemoglobin 7.5 g/dL (13.0-17.5) Hematocrit 22.7 % (39.0-53.0) Mean Corpuscular Volume 92 fL (79-100) Mean Corpuscular Hemoglobin 30 pg (25-35) Mean Corpuscular Hemoglobin Concent 33 g/dL (31-37) Red Cell Distribution Width 16.7 % (11.5-14.5) Platelet Count 355 x10^3/uL (140-400) Neutrophils (%) (Auto) 76 % (31-73) Lymphocytes (%) (Auto) 10 % (24-48) Monocytes (%) (Auto) 10 % (0-9) Eosinophils (%) (Auto) 5 % (0-3) Basophils (%) (Auto) 1 % (0-3) Neutrophils # (Auto) 10.4 x10^3uL (1.8-7.7) Lymphocytes # (Auto) 1.3 x10^3/uL (1.0-4.8) Monocytes # (Auto) 1.3 x10^3/uL (0.0-1.1) Eosinophils # (Auto) 0.6 x10^3/uL (0.0-0.7) Basophils # (Auto) 0.1 x10^3/uL (0.0-0.2) Sodium Level 137 mmol/L (136-145) Potassium Level 4.1 mmol/L (3.5-5.1) Chloride Level 105 mmol/L (98-107) Carbon Dioxide Level 24 mmol/L (21-32) Anion Gap 8 (6-14) Blood Urea Nitrogen 19 mg/dL (8-26) Creatinine 1.2 mg/dL (0.7-1.3) Estimated GFR (Cockcroft-Gault) 57.8 Glucose Level 102 mg/dL (70-99) Calcium Level 7.9 mg/dL (8.5-10.1) Laboratory Tests Test 02/28/19 11:47 03/01/19 05:30 Glucose (Fingerstick) 122 mg/dL (70-99) White Blood Count 13.8 x10^3/uL (4.0-11.0) Red Blood Count 2.47 x10^6/uL (4.30-5.70) Hemoglobin 7.5 g/dL (13.0-17.5) Hematocrit 22.7 % (39.0-53.0) Mean Corpuscular Volume 92 fL (79-100) Mean Corpuscular Hemoglobin 30 pg (25-35) Mean Corpuscular Hemoglobin Concent 33 g/dL (31-37) Red Cell Distribution Width 16.7 % (11.5-14.5) Platelet Count 355 x10^3/uL (140-400) Neutrophils (%) (Auto) 76 % (31-73) Lymphocytes (%) (Auto) 10 % (24-48) Monocytes (%) (Auto) 10 % (0-9) Eosinophils (%) (Auto) 5 % (0-3) Basophils (%) (Auto) 1 % (0-3) Neutrophils # (Auto) 10.4 x10^3uL (1.8-7.7) Lymphocytes # (Auto) 1.3 x10^3/uL (1.0-4.8) Monocytes # (Auto) 1.3 x10^3/uL (0.0-1.1) Eosinophils # (Auto) 0.6 x10^3/uL (0.0-0.7) Basophils # (Auto) 0.1 x10^3/uL (0.0-0.2) Sodium Level 137 mmol/L (136-145) Potassium Level 4.1 mmol/L (3.5-5.1) Chloride Level 105 mmol/L (98-107) Carbon Dioxide Level 24 mmol/L (21-32) Anion Gap 8 (6-14) Blood Urea Nitrogen 19 mg/dL (8-26) Creatinine 1.2 mg/dL (0.7-1.3) Estimated GFR (Cockcroft-Gault) 57.8 Glucose Level 102 mg/dL (70-99) Calcium Level 7.9 mg/dL (8.5-10.1) Medications Active Scripts Medications Dose Route/Sig Max Daily Dose Days Date Category Flomax (Tamsulosin Hcl) 0.4 Mg Cap.er.24h 0.4 Mg PO DAILY 02/13/19 Reported Clopidogrel (Clopidogrel Bisulfate) 75 Mg Tablet 75 Mg PO DAILY 02/13/19 Reported Aspirin 81 Mg Tab.chew 1 Tab PO DAILY 02/13/19 Reported Vitamin B-12 (Cyanocobalamin (Vitamin B-12)) 1,000 Mcg Tablet 1 Tab PO DAILY 12/25/18 Reported Metoprolol Succinate ( Xl ) (Metoprolol Succinate) 25 Mg Tab.er.24h 1 Tab PO DAILY 12/25/18 Reported Losartan Potassium 100 Mg Tablet 100 Mg PO DAILY 12/25/18 Reported Atorvastatin Calcium 40 Mg Tablet 40 Mg PO QHS 30 06/27/17 Rx Multivitamins (Multivitamin) 1 Each Tablet 1 Tab PO DAILY 08/12/15 Reported Vitamin D (Cholecalciferol (Vitamin D3)) 2,000 Unit Capsule 1 Cap PO DAILY 08/12/15 Reported Impression . IMPRESSION: 1. Expected hypoxemic respiratory failure. 2. Status post laparoscopic cholecystectomy with cholangiogram. 3. Status post exploratory laparotomy for hemoperitoneum on 02/14. 4. Abnormal x-ray compatible with atelectasis and effusion, suspect related to intra-abdominal inflammation and possible infection. 5. Leukocytosis. 6. History of cerebrovascular accident, hypertension 7. Hyperlipidemia. 8. Transient atrial fibrillation. 9. Acute blood loss anemia 10. DYSPHAGIA 02/28 IMPRESSION: Intermittent aspiration of the thin liquids which abated when the thicker materials or chin tuck maneuver were utilized. 02/20 Impression: 1. There is a air/ fluid collection identified in the gallbladder fossa region measuring 8.2 x 4.7 cm. Differential includes abscess or focal biloma, if there has been a recent cholecystectomy. A HIDA scan may be helpful. A drain tubing is identified in the gallbladder fossa region. 2. Punctate foci of air identified in the right upper quadrant of the abdomen with surrounding inflammatory fat stranding probably secondary to recent surgery. Correlate clinically. 3. Bibasilar lung consolidation changes likely pneumonia or atelectasis with collapse and consolidation of the right middle lobe of the lung. Bilateral pleural effusions , right greater than left. 4. Mild thickened appearance of the wall of the colon throughout could be due to nondistention or mild colitis. Plan . TRANSFUSE NGB NOW GREATER THAN 7 DID OK WITH VIDEO ON DIET WILL D/C TPN SPOKE WITH DR POLLACK TRANSFER TO SNU IN AM DRAINS PER SURGEON CXR SLIGHLY WORSE WILL GIVE LASIX WILL CONTINUE SUPPORT ANTIBX PER UMA LAINEZ MD March 01, 2019 09:37
[2019-03-01 10:45] VITALS: BP 143/49
--- NOTE | 2019-03-01 10:45 | SNU/HH DC ---
DISCHARGE ORDERS DISCHARGE INFORMATION: CONDITION ON DISCHARGE: Stable CODE STATUS: Code Status: Full LONGTERM: SNF STAY <30 DAYS: Yes HOSPICE: HOSPICE: No HOSPICE EVAL & TREAT: No LTAC: ADMIT TO LTAC: No POST DISCHARGE ORDERS: ACTIVITY ORDERS: Bedrest today DIET AFTER DISCHARGE: Cardiac WOUND/INCISION CARE: No wound care needed CHECKS AFTER DISCHARGE: CHECKS AFTER DISCHARGE: Check blood press - daily, Check your Temp as needed COMMENTS: abcess drain TREATMENT/EQUIPMENT ORDERS: ADAPTIVE EQUIPMENT NEEDED: None Physical Therapy For: Evalulation/Treatment Occupational Therapy For: Evaluation/Treatment DISCHARGE MEDICATIONS: Home Meds Active Scripts Atorvastatin Calcium (ATORVASTATIN CALCIUM) 40 Mg Tablet, 40 MG PO QHS for 30 Days, #30 TAB Prov:RICHARD JUÁREZ MD 06/27/17 Reported Medications Tamsulosin Hcl (FLOMAX) 0.4 Mg Cap.er.24h, 0.4 MG PO DAILY for BLADDER, TAB 02/13/19 Clopidogrel Bisulfate (CLOPIDOGREL) 75 Mg Tablet, 75 MG PO DAILY for TO PREVENT BLOOD CLOTS, #30 TAB 0 Refills 02/13/19 Aspirin (ASPIRIN) 81 Mg Tab.chew, 1 TAB PO DAILY for HEART, #30 TAB 3 Refills 02/13/19 Cyanocobalamin (Vitamin B-12) (VITAMIN B-12) 1,000 Mcg Tablet, 1 TAB PO DAILY for Anemia, #30 TAB 2 Refills 12/25/18 Metoprolol Succinate (METOPROLOL SUCCINATE ( XL )) 25 Mg Tab.er.24h, 1 TAB PO DAILY for HTN, #30 TAB 5 Refills 12/25/18 Losartan Potassium (LOSARTAN POTASSIUM) 100 Mg Tablet, 100 MG PO DAILY for HYPERTENSION, TAB 12/25/18 Multivitamin (MULTIVITAMINS) 1 Each Tablet, 1 TAB PO DAILY, #90 TAB 3 Refills 08/12/15 Cholecalciferol (Vitamin D3) (VITAMIN D) 2,000 Unit Capsule, 1 CAP PO DAILY, #30 CAP 3 Refills 08/12/15 BRI WARD III, DO March 01, 2019 10:45
--- NOTE | 2019-03-01 10:54 | NUR ---
SS following up with discharge planning. Authorization for skilled rehabilitation received. SS phoned and faxed discharge orders to [facility], ; fax [phone]. Pt will discharge today and go to [facility] at [address] [facility] transport, [id number]. Pt, pt's daughter and spouse, and pt's RN notified.
--- NOTE | 2019-03-01 11:18 | PDOC ---
[employer] PROGRESS NOTE Chief Complaint Chief Complaint Status post lap cholecystectomy, 02/14/19 Postop status cyst/fulfills tachycardia tachypnea AK I VMN Sepsis History CVA, hypertension, dyslipidemia and GERD on medication Atrial fibrillation with RVR History of Present Illness History of Present Illness Patient seen and examined Patient appeared well in NAD Patient stated stuffy nose had resolved completely Discussed w/ Nurse He appears well enough to be transferred to SNU Vitals Vitals Vital Signs Date Time Temp Pulse Resp B/P (MAP) Pulse Ox O2 Delivery O2 Flow Rate FiO2 03/01/19 10:45 97.7 85 21 143/49 (80) 91 Nasal Cannula 3.0 97.7 Physical Exam Physical Exam GENERAL: Sitting in the chair, relaxed appearance HEENT: Oral cavity clear, dry NECK: Supple, no JVP, no lymphadenopathy. LUNGS: Clear. HEART: S1, S2 regular. ABDOMEN: Obese, soft,NT, NICOLAS x [address], purulent drainage. Small incision approx sutures, clean EXTREMITIES: Bilat LE trace edema, no cyanosis SKIN: No rash NEUROLOGIC: Alert, responds appropriately RUE-PICC (02/22) clean General: Alert, Oriented X3, Cooperative, No acute distress Heart: Other (IRRR; tele AFIB with controlled rate) Lungs: Other (DECREASE BASES) Abdomen: Soft, Other (drains in place, minimal output) Extremities: Other (trace bialteral LE edema ) Skin: No rashes, No breakdown Labs LABS Laboratory Tests Test 02/28/19 11:47 03/01/19 05:30 Glucose (Fingerstick) 122 mg/dL (70-99) White Blood Count 13.8 x10^3/uL (4.0-11.0) Red Blood Count 2.47 x10^6/uL (4.30-5.70) Hemoglobin 7.5 g/dL (13.0-17.5) Hematocrit 22.7 % (39.0-53.0) Mean Corpuscular Volume 92 fL (79-100) Mean Corpuscular Hemoglobin 30 pg (25-35) Mean Corpuscular Hemoglobin Concent 33 g/dL (31-37) Red Cell Distribution Width 16.7 % (11.5-14.5) Platelet Count 355 x10^3/uL (140-400) Neutrophils (%) (Auto) 76 % (31-73) Lymphocytes (%) (Auto) 10 % (24-48) Monocytes (%) (Auto) 10 % (0-9) Eosinophils (%) (Auto) 5 % (0-3) Basophils (%) (Auto) 1 % (0-3) Neutrophils # (Auto) 10.4 x10^3uL (1.8-7.7) Lymphocytes # (Auto) 1.3 x10^3/uL (1.0-4.8) Monocytes # (Auto) 1.3 x10^3/uL (0.0-1.1) Eosinophils # (Auto) 0.6 x10^3/uL (0.0-0.7) Basophils # (Auto) 0.1 x10^3/uL (0.0-0.2) Sodium Level 137 mmol/L (136-145) Potassium Level 4.1 mmol/L (3.5-5.1) Chloride Level 105 mmol/L (98-107) Carbon Dioxide Level 24 mmol/L (21-32) Anion Gap 8 (6-14) Blood Urea Nitrogen 19 mg/dL (8-26) Creatinine 1.2 mg/dL (0.7-1.3) Estimated GFR (Cockcroft-Gault) 57.8 Glucose Level 102 mg/dL (70-99) Calcium Level 7.9 mg/dL (8.5-10.1) Review of Systems Review of Systems Denies constipation Denies nasal congestion Assessment and Plan Assessmemt and Plan Assessment: Status post lap cholecystectomy, 02/14/19 Postop status cyst/fulfills tachycardia tachypnea AK I VMN-creatinine 1.1 today Sepsis History CVA, hypertension, dyslipidemia and GERD on medication Atrial fibrillation with RVR - rate controlled Plan: Cardiac Monitoring Antibiotics PPI Restoril Wound Care Labs PT/OT DVT ppx Probable discharge to SNU today Comment Review of Relevant I have reviewed the following items timoteo (where applicable) has been applied. Labs Laboratory Tests Test 02/27/19 11:56 02/27/19 17:20 02/28/19 06:15 02/28/19 06:18 Glucose (Fingerstick) 121 mg/dL (70-99) 172 mg/dL (70-99) 126 mg/dL (70-99) White Blood Count 15.4 x10^3/uL (4.0-11.0) Red Blood Count 2.65 x10^6/uL (4.30-5.70) Hemoglobin 7.9 g/dL (13.0-17.5) Hematocrit 24.4 % (39.0-53.0) Mean Corpuscular Volume 92 fL (79-100) Mean Corpuscular Hemoglobin 30 pg (25-35) Mean Corpuscular Hemoglobin Concent 33 g/dL (31-37) Red Cell Distribution Width 16.6 % (11.5-14.5) Platelet Count 384 x10^3/uL (140-400) Neutrophils (%) (Auto) 80 % (31-73) Lymphocytes (%) (Auto) 8 % (24-48) Monocytes (%) (Auto) 8 % (0-9) Eosinophils (%) (Auto) 5 % (0-3) Basophils (%) (Auto) 1 % (0-3) Neutrophils # (Auto) 12.3 x10^3uL (1.8-7.7) Lymphocytes # (Auto) 1.2 x10^3/uL (1.0-4.8) Monocytes # (Auto) 1.2 x10^3/uL (0.0-1.1) Eosinophils # (Auto) 0.7 x10^3/uL (0.0-0.7) Basophils # (Auto) 0.1 x10^3/uL (0.0-0.2) Sodium Level 136 mmol/L (136-145) Potassium Level 4.5 mmol/L (3.5-5.1) Chloride Level 106 mmol/L (98-107) Carbon Dioxide Level 21 mmol/L (21-32) Anion Gap 9 (6-14) Blood Urea Nitrogen 20 mg/dL (8-26) Creatinine 1.1 mg/dL (0.7-1.3) Estimated GFR (Cockcroft-Gault) 63.9 Glucose Level 126 mg/dL (70-99) Calcium Level 7.9 mg/dL (8.5-10.1) Phosphorus Level 2.6 mg/dL (2.6-4.7) Magnesium Level 2.0 mg/dL (1.8-2.4) Test 02/28/19 11:47 03/01/19 05:30 Glucose (Fingerstick) 122 mg/dL (70-99) White Blood Count 13.8 x10^3/uL (4.0-11.0) Red Blood Count 2.47 x10^6/uL (4.30-5.70) Hemoglobin 7.5 g/dL (13.0-17.5) Hematocrit 22.7 % (39.0-53.0) Mean Corpuscular Volume 92 fL (79-100) Mean Corpuscular Hemoglobin 30 pg (25-35) Mean Corpuscular Hemoglobin Concent 33 g/dL (31-37) Red Cell Distribution Width 16.7 % (11.5-14.5) Platelet Count 355 x10^3/uL (140-400) Neutrophils (%) (Auto) 76 % (31-73) Lymphocytes (%) (Auto) 10 % (24-48) Monocytes (%) (Auto) 10 % (0-9) Eosinophils (%) (Auto) 5 % (0-3) Basophils (%) (Auto) 1 % (0-3) Neutrophils # (Auto) 10.4 x10^3uL (1.8-7.7) Lymphocytes # (Auto) 1.3 x10^3/uL (1.0-4.8) Monocytes # (Auto) 1.3 x10^3/uL (0.0-1.1) Eosinophils # (Auto) 0.6 x10^3/uL (0.0-0.7) Basophils # (Auto) 0.1 x10^3/uL (0.0-0.2) Sodium Level 137 mmol/L (136-145) Potassium Level 4.1 mmol/L (3.5-5.1) Chloride Level 105 mmol/L (98-107) Carbon Dioxide Level 24 mmol/L (21-32) Anion Gap 8 (6-14) Blood Urea Nitrogen 19 mg/dL (8-26) Creatinine 1.2 mg/dL (0.7-1.3) Estimated GFR (Cockcroft-Gault) 57.8 Glucose Level 102 mg/dL (70-99) Calcium Level 7.9 mg/dL (8.5-10.1) Laboratory Tests Test 02/28/19 11:47 03/01/19 05:30 Glucose (Fingerstick) 122 mg/dL (70-99) White Blood Count 13.8 x10^3/uL (4.0-11.0) Red Blood Count 2.47 x10^6/uL (4.30-5.70) Hemoglobin 7.5 g/dL (13.0-17.5) Hematocrit 22.7 % (39.0-53.0) Mean Corpuscular Volume 92 fL (79-100) Mean Corpuscular Hemoglobin 30 pg (25-35) Mean Corpuscular Hemoglobin Concent 33 g/dL (31-37) Red Cell Distribution Width 16.7 % (11.5-14.5) Platelet Count 355 x10^3/uL (140-400) Neutrophils (%) (Auto) 76 % (31-73) Lymphocytes (%) (Auto) 10 % (24-48) Monocytes (%) (Auto) 10 % (0-9) Eosinophils (%) (Auto) 5 % (0-3) Basophils (%) (Auto) 1 % (0-3) Neutrophils # (Auto) 10.4 x10^3uL (1.8-7.7) Lymphocytes # (Auto) 1.3 x10^3/uL (1.0-4.8) Monocytes # (Auto) 1.3 x10^3/uL (0.0-1.1) Eosinophils # (Auto) 0.6 x10^3/uL (0.0-0.7) Basophils # (Auto) 0.1 x10^3/uL (0.0-0.2) Sodium Level 137 mmol/L (136-145) Potassium Level 4.1 mmol/L (3.5-5.1) Chloride Level 105 mmol/L (98-107) Carbon Dioxide Level 24 mmol/L (21-32) Anion Gap 8 (6-14) Blood Urea Nitrogen 19 mg/dL (8-26) Creatinine 1.2 mg/dL (0.7-1.3) Estimated GFR (Cockcroft-Gault) 57.8 Glucose Level 102 mg/dL (70-99) Calcium Level 7.9 mg/dL (8.5-10.1) Microbiology 02/17/19 Blood Culture - Final, Complete NO GROWTH AFTER 5 DAYS 02/17/19 Urine Culture - Final, Complete 02/17/19 Urine Culture Result 1 (PETERSON) - Final, Complete 02/22/19 Anaerobic/Aerobic Culture - Final, Complete 02/22/19 Anaerobic Culture Result 1 (PETERSON) - Final, Complete 02/22/19 Aerobic Culture - Final, Complete 02/22/19 Aerobic Culture Result 1 (PETERSON) - Final, Complete 02/22/19 Antimicrobic Susceptibility - Final, Complete 02/22/19 Gram Stain - Final, Complete 02/22/19 Gram Stain Result 1 (PETERSON) - Final, Complete 02/22/19 Gram Stain Result 2 (PETERSON) - Final, Complete Medications Current Medications Ondansetron HCl (Zofran) 4 mg PRN Q6HRS PRN IV NAUSEA/VOMITING; Start 02/14/19 at 07:00; Stop 02/14/19 at 20:00; Status DC Fentanyl Citrate (Fentanyl 2ml Vial) 25 mcg PRN Q5MIN PRN IV MILD PAIN Last administered on 02/14/19at 14:28; Start 02/14/19 at 07:00; Stop 02/14/19 at 20:00; Status DC Fentanyl Citrate (Fentanyl 2ml Vial) 50 mcg PRN Q5MIN PRN IV MODERATE TO SEVERE PAIN; Start 02/14/19 at 07:00; Stop 02/14/19 at 20:00; Status DC Morphine Sulfate (Morphine Sulfate) 1 mg PRN Q10MIN PRN IV SEVERE PAIN; Start 02/14/19 at 07:00; Stop 02/14/19 at 20:00; Status DC Ringer's Solution 1,000 ml @ 30 mls/hr Q24H IV Last administered on 02/14/19at 07:52; Start 02/14/19 at 07:00; Stop 02/14/19 at 18:59; Status DC Lidocaine HCl (Xylocaine-Mpf 1% 2ml Vial) 2 ml PRN 1X PRN ID PRIOR TO IV START; Start 02/14/19 at 07:00; Stop 02/14/19 at 20:00; Status DC Hydromorphone HCl (Dilaudid) 0.5 mg PRN Q10MIN PRN IV SEV PAIN, Second choice; Start 02/14/19 at 07:00; Stop 02/14/19 at 20:00; Status DC Prochlorperazine Edisylate (Compazine) 5 mg PACU PRN PRN IV NAUSEA, MRX1; Start 02/14/19 at 07:00; Stop 02/14/19 at 20:00; Status DC Cefazolin Sodium/ Dextrose 50 ml @ 100 mls/hr 1X PREOP PRN IV PRIOR TO PROCEDURE Last administered on 02/14/19at 11:21; Start 02/14/19 at 06:00; Stop 02/14/19 at 18:00; Status DC Propofol 20 ml @ As Directed STK-MED ONCE IV ; Start 02/14/19 at 08:17; Stop 02/14/19 at 08:18; Status DC Lidocaine HCl (Lidocaine Pf 2% Vial) 5 ml STK-MED ONCE .ROUTE ; Start 02/14/19 at 08:17; Stop 02/14/19 at 08:18; Status DC Ondansetron HCl (Zofran) 4 mg STK-MED ONCE .ROUTE ; Start 02/14/19 at 08:17; Stop 02/14/19 at 08:18; Status DC Dexamethasone Sodium Phosphate (Decadron) 4 mg STK-MED ONCE .ROUTE ; Start 02/14/19 at 08:17; Stop 02/14/19 at 08:18; Status DC Sevoflurane (Ultane) 60 ml STK-MED ONCE IH ; Start 02/14/19 at 08:17; Stop 02/14/19 at 08:18; Status DC Rocuronium [place] (Zemuron) 50 mg STK-MED ONCE .ROUTE ; Start 02/14/19 at 08:17; Stop 02/14/19 at 08:18; Status DC Fentanyl Citrate (Fentanyl 2ml Vial) 100 mcg STK-MED ONCE .ROUTE ; Start 02/14/19 at 08:39; Stop 02/14/19 at 08:40; Status DC Bupivacaine HCl/ Epinephrine Bitart (Sensorcain-Mpf Epi 0.5%-1:952011) 30 ml STK-MED ONCE .ROUTE Last administered on 02/14/19at 11:48; Start 02/14/19 at 10:01; Stop 02/14/19 at 11:02; Status DC Glucagon (Glucagen) 1 mg STK-MED ONCE .ROUTE ; Start 02/14/19 at 10:01; Stop 02/14/19 at 11:02; Status DC Iohexol (Omnipaque 300 Mg/ml) 100 ml STK-MED ONCE .ROUTE Last administered on 02/14/19at 11:48; Start 02/14/19 at 10:01; Stop 02/14/19 at 11:02; Status DC Cellulose (Surgicel Hemostat 4x8) 1 each STK-MED ONCE .ROUTE Last administered on 02/14/19 13:12; Start 02/14/19 at 10:01; Stop 02/14/19 at 11:02; Status DC Cellulose (Surgicel Hemostat 4x8) 1 each STK-MED ONCE .ROUTE Last administered on 02/14/19 13:31; Start 02/14/19 at 11:19; Stop 02/14/19 at 12:19; Status DC Famotidine (Pepcid Vial) 20 mg STK-MED ONCE .ROUTE ; Start 02/14/19 at 13:14; Stop 02/14/19 at 13:15; Status DC Diphenhydramine HCl (Benadryl) 50 mg STK-MED ONCE .ROUTE ; Start 02/14/19 at 13:14; Stop 02/14/19 at 13:15; Status DC Rocuronium [place] (Zemuron) 50 mg STK-MED ONCE .ROUTE ; Start 02/14/19 at 13:14; Stop 02/14/19 at 13:15; Status DC Fentanyl Citrate (Fentanyl 2ml Vial) 100 mcg STK-MED ONCE .ROUTE ; Start 02/14/19 at 13:15; Stop 02/14/19 at 13:16; Status DC Cellulose (Surgicel Hemostat 4x8) 1 each STK-MED ONCE .ROUTE ; Start 02/14/19 at 12:33; Stop 02/14/19 at 13:33; Status DC Diphenhydramine HCl (Benadryl) 25 mg PRN Q6HRS PRN PO ITCHING Last administered on 02/23/19 20:43; Start 02/14/19 at 14:00 Sodium Chloride (Normal Saline Flush) 3 ml QSHIFT PRN IV AFTER MEDS AND BLOOD DRAWS; Start 02/14/19 at 14:00 Potassium Chloride/Sodium Chloride 1,000 ml @ 80 mls/hr [id number] IV Last administered on 02/17/19at 06:02; Start 02/14/19 at 15:00; Stop 02/17/19 at 12:54; Status DC Dextrose (Dextrose 50%-Water Syringe) 12.5 gm PRN Q15MIN PRN IV SEE COMMENTS; Start 02/14/19 at 14:00 Acetaminophen/ Hydrocodone Bitart (Lortab 5/325) 1 tab PRN Q4HRS PRN PO MILD PAIN Last administered on 02/17/19 08:35; Start 02/14/19 at 14:00 Acetaminophen/ Hydrocodone Bitart (Lortab 5/325) 2 tab PRN Q4HRS PRN PO MODERATE PAIN, SEVERE PAIN Last administered on 02/17/19 03:22; Start 02/14/19 at 14:00 Hydromorphone HCl (Dilaudid) 1 mg PRN Q4HRS PRN IV PAIN Last administered on 02/23/19 09:46; Start 02/14/19 at 14:00; Stop 02/24/19 at 11:48; Status DC Docusate Sodium (Colace) 100 mg BID PO Last administered on 03/01/19 09:00; Start 02/14/19 at 21:00 Ondansetron HCl (Zofran) 4 mg PRN Q6HRS PRN IV NAUESA, 1ST CHOICE Last a dministered on 02/19/19at 04:09; Start 02/14/19 at 14:00; Stop 02/19/19 at 09:05; Status DC Atorvastatin Calcium (Lipitor) 40 mg QHS PO Last administered on 02/28/19at 20:56; Start 02/14/19 at 21:00 Cyanocobalamin (Vitamin B-12) 1,000 mcg DAILY PO Last administered on 02/25/19 09:54; Start 02/15/19 at 09:00; Stop 02/25/19 at 18:56; Status DC Metoprolol Succinate (Toprol Xl) 25 mg DAILY PO Last administered on 02/20/19at 07:53; Start 02/15/19 at 09:00; Stop 02/20/19 at 12:11; Status DC Tamsulosin HCl (Flomax) 0.4 mg DAILY PO Last administered on 03/01/19 09:00; Start 02/15/19 at 09:00 Losartan Potassium (Cozaar) 100 mg DAILY PO Last administered on 03/01/19at 09:01; Start 02/15/19 at 09:00 Fentanyl Citrate (Fentanyl 2ml Vial) 100 mcg STK-MED ONCE .ROUTE ; Start 02/14/19 at 14:26; Stop 02/14/19 at 14:27; Status DC Bupivacaine HCl/ Epinephrine Bitart (Sensorcain-Mpf Epi 0.5%-1:030386) 30 ml STK-MED ONCE .ROUTE ; Start 02/14/19 at 15:13; Stop 02/14/19 at 16:14; Status DC Bacitracin (Bacitracin) 50,000 unit STK-MED ONCE IRR Last administered on 02/14/19at 16:49; Start 02/14/19 at 15:14; Stop 02/14/19 at 16:15; Status DC Sodium Chloride (SODIUM CHLORIDE 20ml) 20 ml STK-MED ONCE IJ ; Start 02/14/19 at 15:15; Stop 02/14/19 at 16:15; Status DC Cellulose (Surgicel Hemostat 4x8) 3 each STK-MED ONCE TP Last administered on 02/14/19at 16:49; Start 02/14/19 at 16:49; Stop 02/14/19 at 16:55; Status DC Cellulose (Surgicel Hemostat 4x8) 4 each 1X ONCE TP ; Start 02/14/19 at 17:15; Stop 02/14/19 at 17:16; Status DC Cefazolin Sodium/ Dextrose (Ancef 2gm Premix) 2 gm STK-MED ONCE IV ; Start 02/14/19 at 11:00; Stop 02/15/19 at 13:02; Status DC Piperacillin Sod/ Tazobactam Sod 3.375 gm/Sodium Chloride 50 ml @ 100 mls/hr Q6HRS IV Last administered on 03/01/19at 06:02; Start 02/17/19 at 12:00 Sodium Chloride 1,000 ml @ 125 mls/hr Q8H IV Last administered on 02/22/19at 02:43; Start 02/17/19 at 13:00; Stop 02/22/19 at 10:28; Status DC Clopidogrel Bisulfate (Plavix) 75 mg DAILY PO Last administered on 03/01/19at 09:00; Start 02/17/19 at 14:00 Vitamin D (Vitamin D3) 2,000 unit DAILY PO Last administered on 02/25/19 09:54; Start 02/17/19 at 14:00; Stop 02/25/19 at 18:56; Status DC Multivitamins (Thera M Plus) 1 tab DAILY PO Last administered on 02/25/19 09:54; Start 02/17/19 at 14:00; Stop 02/25/19 at 18:57; Status DC Calcium Carbonate/ Glycine (Tums) 500 mg PRN AFTMEALHC PRN PO INDIGESTION Last administered on 02/27/19 09:09; Start 02/17/19 at 15:00 Acetaminophen (Tylenol) 650 mg PRN Q6HRS PRN PO fever Last administered on 02/17/19 23:50; Start 02/17/19 at 23:45; Stop 02/21/19 at 08:07; Status DC Sodium Chloride 500 ml @ 500 mls/hr 1X ONCE IV Last administered on 02/17/19at 23:48; Start 02/18/19 at 00:00; Stop 02/18/19 at 00:59; Status DC Diltiazem HCl 125 mg/Dextrose 125 ml @ 5 mls/hr CONT PRN IV SEE I/O RECORD Last administered on 02/18/19 04:27; Start 02/18/19 at 04:15; Stop 02/18/19 at 16:09; Status DC Linezolid/Dextrose 300 ml @ 300 mls/hr Q12HR IV Last administered on 02/26/19 20:59; Start 02/18/19 at 09:00; Stop 02/27/19 at 07:42; Status DC Lactobacillus Rhamnosus (Culturelle) 1 cap BID PO Last administered on 03/01/19 09:00; Start 02/18/19 at 21:00 Diltiazem HCl (Cardizem 24hr Cd) 240 mg DAILY PO Last administered on 03/01/19 09:00; Start 02/18/19 at 12:30 Aspirin (Ecotrin) 81 mg [id number] PO Last administered on 02/21/19 08:34; Start 02/18/19 at 16:15; Stop 02/22/19 at 16:16; Status DC Acetaminophen (Tylenol) 650 mg PRN Q6HRS PRN PO FEVER Last administered on 02/22/19at 21:39; Start 02/19/19 at 01:45 Acetaminophen (Tylenol Supp) 650 mg PRN Q6HRS PRN [place] MILD PAIN/TEMP Last administered on 02/19/19at 02:18; Start 02/19/19 at 02:15 Norepinephrine Bitartrate 250 ml @ 1.875 mls/ hr CONT PRN IV SEE I/O RECORD; Start 02/19/19 at 07:30; Stop 02/23/19 at 11:38; Status DC Digoxin (Lanoxin) 250 mcg 1X ONCE IV Last administered on 02/19/19at 07:36; Start 02/19/19 at 07:30; Stop 02/19/19 at 07:31; Status DC Sodium Chloride 500 ml @ 500 mls/hr 1X ONCE IV Last administered on 02/19/19at 07:35; Start 02/19/19 at 07:30; Stop 02/19/19 at 08:29; Status DC Ondansetron HCl (Zofran) 4 mg Q6HRS IV Last administered on 02/20/19at 05:43; Start 02/19/19 at 12:00; Stop 02/20/19 at 10:56; Status DC Pantoprazole Sodium (Protonix) 40 mg BIDAC PO Last administered on 02/21/19at 08:34; Start 02/19/19 at 16:30; Stop 02/21/19 at 15:18; Status DC Digoxin (Lanoxin) 250 mcg 1X ONCE IV Last administered on 02/19/19at 22:57; Start 02/19/19 at 23:00; Stop 02/19/19 at 23:01; Status DC Cellulose (Surgicel Hemostat 4x8) 1 each STK-MED ONCE .ROUTE ; Start 02/14/19 at 15:23; Stop 02/20/19 at 08:42; Status DC Cellulose (Surgicel Hemostat 4x8) 1 each STK-MED ONCE .ROUTE ; Start 02/14/19 at 15:50; Stop 02/20/19 at 08:42; Status DC Propofol 20 ml @ As Directed STK-MED ONCE IV ; Start 02/14/19 at 16:05; Stop 02/20/19 at 08:42; Status DC Famotidine (Pepcid Vial) 20 mg STK-MED ONCE .ROUTE ; Start 02/14/19 at 16:05; Stop 02/20/19 at 08:42; Status DC Lidocaine HCl (Lidocaine Pf 2% Vial) 5 ml STK-MED ONCE .ROUTE ; Start 02/14/19 at 16:05; Stop 02/20/19 at 08:42; Status DC Ondansetron HCl (Zofran) 4 mg STK-MED ONCE .ROUTE ; Start 02/14/19 at 16:05; Stop 02/20/19 at 08:42; Status DC Rocuronium [place] (Zemuron) 100 mg STK-MED ONCE .ROUTE ; Start 02/14/19 at 16:05; Stop 02/20/19 at 08:42; Status DC Fentanyl Citrate (Fentanyl 2ml Vial) 100 mcg STK-MED ONCE .ROUTE ; Start 02/14/19 at 16:06; Stop 02/20/19 at 08:42; Status DC Dexamethasone Sodium Phosphate (Decadron) 4 mg STK-MED ONCE .ROUTE ; Start 02/14/19 at 16:06; Stop 02/20/19 at 08:42; Status DC Neostigmine Methylsulfate (Neostigmine Methylsulfate) 5 mg STK-MED ONCE .ROUTE ; Start 02/14/19 at 17:26; Stop 02/20/19 at 08:42; Status DC Glycopyrrolate (Robinul) 1 mg STK-MED ONCE .ROUTE ; Start 02/14/19 at 17:26; Stop 02/20/19 at 08:42; Status DC Ondansetron HCl (Zofran) 4 mg PRN Q6HRS PRN IV NAUSEA/VOMITING; Start 02/20/19 at 10:54 Metoprolol Tartrate (Lopressor) 25 mg BID PO Last administered on 02/21/19at 20:44; Start 02/20/19 at 12:15; Stop 02/22/19 at 10:28; Status DC Ringer's Solution 1,000 ml @ 50 mls/hr Q20H IV Last administered on 02/21/19at 14:47; Start 02/21/19 at 07:00; Stop 02/21/19 at 18:59; Status DC Midazolam HCl (Versed) 2 mg PRN 1X PRN IV PRIOR TO PROCEDURE; Start 02/21/19 at 12:30; Stop 02/22/19 at 12:29; Status DC Fentanyl Citrate (Fentanyl 2ml Vial) 25 mcg PRN Q5MIN PRN IV X 2 DOSES FOR PAIN; Start 02/21/19 at 12:30; Stop 02/22/19 at 12:29; Status DC Fentanyl Citrate (Fentanyl 2ml Vial) 50 mcg PRN Q5MIN PRN IV X 2 DOSES FOR PAIN; Start 02/21/19 at 12:30; Stop 02/22/19 at 12:29; Status DC Ringer's Solution 1,000 ml @ 125 mls/hr Q8H IV Last administered on 02/21/19at 12:27; Start 02/21/19 at 12:27; Stop 02/22/19 at 00:26; Status DC Lidocaine HCl (Xylocaine-Mpf 1% 2ml Vial) 2 ml 1X PRN PRN ID IV START; Start 02/21/19 at 12:30; Stop 02/22/19 at 12:29; Status DC Pantoprazole Sodium 80 mg/ Sodium Chloride 100 ml @ 10 mls/hr Q10H IV Last administered on 02/27/19at 01:40; Start 02/21/19 at 15:30; Stop 02/27/19 at 11:26; Status DC Metoprolol Tartrate (Lopressor Vial) 5 mg Q6HRS IVP Last administered on 02/28/19at 12:18; Start 02/22/19 at 12:00; Stop 02/28/19 at 12:18; Status DC Lidocaine/Sodium Bicarbonate (Buffered Lidocaine 1%) 3 ml STK-MED ONCE .ROUTE ; Start 02/22/19 at 12:08; Stop 02/22/19 at 12:09; Status DC Midazolam HCl (Versed) 2 mg STK-MED ONCE .ROUTE ; Start 02/22/19 at 12:21; Stop 02/22/19 at 12:22; Status DC Fentanyl Citrate (Fentanyl 2ml Vial) 100 mcg STK-MED ONCE .ROUTE ; Start 02/22/19 at 12:21; Stop 02/22/19 at 12:22; Status DC Lidocaine/Sodium Bicarbonate (Buffered Lidocaine 1%) 3 ml 1X ONCE IJ Last administered on 02/22/19at 13:00; Start 02/22/19 at 12:30; Stop 02/22/19 at 12:31; Status DC Midazolam HCl (Versed) 2 mg 1X ONCE IV Last administered on 02/22/19 13:01; Start 02/22/19 at 12:30; Stop 02/22/19 at 12:31; Status DC Fentanyl Citrate (Fentanyl 2ml Vial) 100 mcg 1X ONCE IV Last administered on 02/22/19 13:02; Start 02/22/19 at 12:30; Stop 02/22/19 at 12:31; Status DC Furosemide (Lasix) 40 mg 1X ONCE IVP Last administered on 02/22/19 16:20; Start 02/22/19 at 16:15; Stop 02/22/19 at 16:16; Status DC Hydralazine HCl (Apresoline Inj) 10 mg PRN Q4HRS PRN IVP ELEVATED BP, SEE COMMENTS Last administered on 02/28/19at 03:12; Start 02/22/19 at 16:15 Digoxin (Lanoxin) 250 mcg PRN DAILY PRN IV SEE COMMENTS; Start 02/22/19 at 16:15 Albumin Human 100 ml @ 100 mls/hr 1X ONCE IV Last administered on 02/22/19 16:20; Start 02/22/19 at 16:15; Stop 02/22/19 at 17:14; Status DC Aspirin (Aspirin) 150 mg DAILY [place] Last administered on 02/27/19 09:10; Start 02/22/19 at 17:00; Stop 02/28/19 at 12:18; Status DC Info (Tpn Per Pharmacy) 1 each PRN DAILY PRN MC SEE COMMENTS Last administered on 02/28/19 13:00; Start 02/23/19 at 11:45; Stop 02/28/19 at 13:32; Status DC Sodium Chloride 90 meq/Potassium Chloride 70 meq/ Potassium Phosphate 13.6 mmol/Magnesium Sulfate 15 meq/ Calcium Gluconate 10 meq/ Multivitamins 10 ml/Chromium/ Copper/Manganese/ Seleni/Zn 1 ml/ Total Parenteral Nutrition/Amino Acids/Dextrose/ Fat Emulsion Intravenous 1,512 ml @ 63 mls/hr TPN CONT IV Last administered on 02/23/19 21:28; Start 02/23/19 at 22:00; Stop 02/24/19 at 21:59; Status DC Potassium Chloride/Water 50 ml @ 50 mls/hr Q1H IV Last administered on 02/23/19at 15:31; Start 02/23/19 at 15:00; Stop 02/23/19 at 16:59; Status DC Morphine Sulfate (Morphine Sulfate) 2 mg PRN Q2HR PRN IV PAIN; Start 02/24/19 at 12:00 Sodium Chloride 90 meq/Potassium Chloride 70 meq/ Potassium Phosphate 25 mmol/ Magnesium Sulfate 15 meq/Calcium Gluconate 10 meq/ Multivitamins 10 ml/Chromium/ Copper/Manganese/ Seleni/Zn 1 ml/ Total Parenteral Nutrition/Amino Acids/Dextrose/ Fat Emulsion Intravenous 1,512 ml @ 63 mls/hr TPN CONT IV Last administered on 02/24/19at 22:47; Start 02/24/19 at 22:00; Stop 02/25/19 at 21:59; Status DC Artificial Tears (Artificial Tears) 1 drop PRN BID PRN OU DRY EYE; Start 02/24/19 at 18:45 Temazepam (Restoril) 15 mg PRN QHS PRN PO INSOMNIA Last administered on 02/28/19at 23:20; Start 02/25/19 at 13:30 Sodium Chloride 90 meq/Potassium Chloride 70 meq/ Potassium Phosphate 25 mmol/ Magnesium Sulfate 15 meq/Calcium Gluconate 10 meq/ Multivitamins 10 ml/Chromium/ Copper/Manganese/ Seleni/Zn 1 ml/ Total Parenteral Nutrition/Amino Acids/Dextrose/ Fat Emulsion Intravenous 1,512 ml @ 63 mls/hr TPN CONT IV Last administered on 02/25/19at 21:06; Start 02/25/19 at 22:00; Stop 02/26/19 at 21:59; Status DC Vitamin D (Vitamin D3) 2,000 unit QHS PO Last administered on 02/28/19 20:55; Start 02/26/19 at 21:00 Cyanocobalamin (Vitamin B-12) 1,000 mcg QHS PO Last administered on 02/28/19 20:55; Start 02/26/19 at 21:00 Multivitamins (Thera M Plus) 1 tab QHS PO Last administered on 02/28/19at 20:56; Start 02/26/19 at 21:00 Iohexol (Omnipaque 300 Mg/ml) 300 ml 1X ONCE PO ; Start 02/26/19 at 09:00; Stop 02/26/19 at 09:01; Status DC Barium Sulfate (Liquid E-Z Paque) 355 ml 1X ONCE PO Last administered on 02/26/19at 11:15; Start 02/26/19 at 11:15; Stop 02/26/19 at 11:18; Status DC Sodium Chloride 90 meq/Potassium Chloride 70 meq/ Potassium Phosphate 25 mmol/ Magnesium Sulfate 15 meq/Calcium Gluconate 10 meq/ Multivitamins 10 ml/Chromium/ Copper/Manganese/ Seleni/Zn 1 ml/ Total Parenteral Nutrition/Amino Acids/Dextrose/ Fat Emulsion Intravenous 1,512 ml @ 63 mls/hr TPN CONT IV Last administered on 02/26/19at 22:36; Start 02/26/19 at 22:00; Stop 02/27/19 at 21:59; Status DC Pantoprazole Sodium (Protonix) 40 mg BIDAC PO Last administered on 03/01/19at 06:02; Start 02/27/19 at 16:30 Sodium Chloride 90 meq/Potassium Chloride 70 meq/ Potassium Phosphate 25 mmol/ Magnesium Sulfate 15 meq/Calcium Gluconate 10 meq/ Multivitamins 10 ml/Chromium/ Copper/Manganese/ Seleni/Zn 1 ml/ Total Parenteral Nutrition/Amino Acids/Dextrose/ Fat Emulsion Intravenous 1,512 ml @ 63 mls/hr TPN CONT IV Last administered on 02/27/19at 22:27; Start 02/27/19 at 22:00; Stop 02/28/19 at 21:59; Status DC Oxymetazoline HCl (Afrin) 1 spray PRN Q12HR PRN NS CONGESTION Last administered on 02/28/19at 12:30; Start 02/28/19 at 10:15 Barium Sulfate (Varibar Thin Liquid Apple) 148 gm 1X ONCE PO Last administered on 02/28/19at 13:00; Start 02/28/19 at 10:15; Stop 02/28/19 at 10:16; Status DC Aspirin (Ecotrin) 81 mg DAILYWBKFT PO Last administered on 03/01/19at 09:00; Start 03/01/19 at 08:00 Metoprolol Tartrate (Lopressor) 25 mg BID PO Last administered on 03/01/19at 09:01; Start 02/28/19 at 21:00 Furosemide (Lasix) 40 mg 1X ONCE IVP Last administered on 02/28/19at 13:45; Start 02/28/19 at 12:30; Stop 02/28/19 at 12:31; Status DC Sodium Chloride 90 meq/Potassium Chloride 30 meq/ Potassium Phosphate 25 mmol/ Magnesium Sulfate 15 meq/Calcium Gluconate 10 meq/ Multivitamins 10 ml/Chromium/ Copper/Manganese/ Seleni/Zn 1 ml/ Total Parenteral Nutrition/Amino Acids/Dextrose/ Fat Emulsion Intravenous 1,512 ml @ 63 mls/hr TPN CONT IV ; Start 02/28/19 at 22:00; Stop 02/28/19 at 22:28; Status DC Active Scripts Active Atorvastatin Calcium 40 Mg Tablet 40 Mg PO QHS 30 Days Reported Flomax (Tamsulosin Hcl) 0.4 Mg Cap.er.24h 0.4 Mg PO DAILY Clopidogrel (Clopidogrel Bisulfate) 75 Mg Tablet 75 Mg PO DAILY Aspirin 81 Mg Tab.chew 1 Tab PO DAILY Vitamin B-12 (Cyanocobalamin (Vitamin B-12)) 1,000 Mcg Tablet 1 Tab PO DAILY Metoprolol Succinate ( Xl ) (Metoprolol Succinate) 25 Mg Tab.er.24h 1 Tab PO DAILY Losartan Potassium 100 Mg Tablet 100 Mg PO DAILY Multivitamins (Multivitamin) 1 Each Tablet 1 Tab PO DAILY Vitamin D (Cholecalciferol (Vitamin D3)) 2,000 Unit Capsule 1 Cap PO DAILY Vitals/I & O Vital Sign - Last 24 Hours 02/28/19 02/28/19 02/28/19 02/28/19 12:18 15:00 19:20 19:36 Temp 98.1 98.2 98.1 98.2 Pulse 69 64 73 Resp 19 B/P (MAP) 176/63 142/55 (84) 97/52 (67) Pulse Ox 96 95 O2 Delivery Nasal Cannula Nasal Cannula Nasal Cannula O2 Flow Rate 3.0 3.0 3.0 02/28/19 02/28/19 03/01/19 03/01/19 20:58 23:38 03:15 07:25 Temp 98.1 98.2 98.0 98.1 98.2 98.0 Pulse 69 81 75 71 Resp 19 21 21 B/P (MAP) 152/61 151/70 (97) 144/57 (86) 132/72 (92) Pulse Ox 98 95 93 O2 Delivery Nasal Cannula Nasal Cannula Nasal Cannula O2 Flow Rate 3.0 3.0 3.0 03/01/19 03/01/19 03/01/19 03/01/19 08:00 09:00 09:01 09:01 Pulse 71 71 71 B/P (MAP) 132/72 132/72 132/72 O2 Delivery Nasal Cannula 03/01/19 10:45 Temp 97.7 97.7 Pulse 85 Resp 21 B/P (MAP) 143/49 (80) Pulse Ox 91 O2 Delivery Nasal Cannula O2 Flow Rate 3.0 Intake and Output 02/28/19 02/28/19 03/01/19 15:00 23:00 07:00 Intake Total 50 ml Output Total 1000 ml 2645 ml 650 ml Balance -1000 ml -2645 ml -600 ml BRI WARD III DO March 01, 2019 11:18
--- NOTE | 2019-03-01 11:41 | PDOC ---
Subjective: Subjective: I asked how he was - "oh I don't know." Discussed continuing PPI - "whatever." Objective: Objective: Reviewed w/ RN - DC to PP today. Vital Signs: Vital Signs Date Time Temp Pulse Resp B/P (MAP) Pulse Ox O2 Delivery O2 Flow Rate FiO2 03/01/19 10:45 97.7 85 21 143/49 (80) 91 Nasal Cannula 3.0 97.7 Labs: Laboratory Tests Test 02/28/19 11:47 03/01/19 05:30 Glucose (Fingerstick) 122 mg/dL White Blood Count 13.8 x10^3/uL Red Blood Count 2.47 x10^6/uL Hemoglobin 7.5 g/dL Hematocrit 22.7 % Mean Corpuscular Volume 92 fL Mean Corpuscular Hemoglobin 30 pg Mean Corpuscular Hemoglobin Concent 33 g/dL Red Cell Distribution Width 16.7 % Platelet Count 355 x10^3/uL Neutrophils (%) (Auto) 76 % Lymphocytes (%) (Auto) 10 % Monocytes (%) (Auto) 10 % Eosinophils (%) (Auto) 5 % Basophils (%) (Auto) 1 % Neutrophils # (Auto) 10.4 x10^3uL Lymphocytes # (Auto) 1.3 x10^3/uL Monocytes # (Auto) 1.3 x10^3/uL Eosinophils # (Auto) 0.6 x10^3/uL Basophils # (Auto) 0.1 x10^3/uL Sodium Level 137 mmol/L Potassium Level 4.1 mmol/L Chloride Level 105 mmol/L Carbon Dioxide Level 24 mmol/L Anion Gap 8 Blood Urea Nitrogen 19 mg/dL Creatinine 1.2 mg/dL Estimated GFR (Cockcroft-Gault) 57.8 Glucose Level 102 mg/dL Calcium Level 7.9 mg/dL PE: GEN: NAD, up to chair LUNGS: NC HEART: RRR ABD: binder NEURO/PSYCH: A & O 3, depressed A/P: DU w/ edema, esophagitis -- DC per primary on PPI - d/w MARU KAUR March 01, 2019 11:41
--- NOTE | 2019-03-01 13:20 | PDOC3 ---
Discharge Summary Visit Information Date of Admission: Feb 14, 2019 Date of Discharge: March 01, 2019 Admitting Diagnosis Comment: cholelithiasis with cholecystitis Final Diagnosis same Brief Hospital Course Allergies Allergies Coded Allergies Type Severity Reaction Last Updated Verified iodine Allergy Intermediate Rash 02/21/19 Yes iron Allergy Intermediate Rash 02/21/19 Yes iron dextran complex Allergy Intermediate Rash 02/21/19 Yes Vital Signs Vital Signs Date Time Temp Pulse Resp B/P (MAP) Pulse Ox O2 Delivery O2 Flow Rate FiO2 03/01/19 10:45 97.7 85 21 143/49 (80) 91 Nasal Cannula 3.0 97.7 Lab Results Laboratory Tests Test 02/27/19 17:20 02/28/19 06:15 02/28/19 06:18 02/28/19 11:47 Glucose (Fingerstick) 172 mg/dL (70-99) 126 mg/dL (70-99) 122 mg/dL (70-99) White Blood Count 15.4 x10^3/uL (4.0-11.0) Red Blood Count 2.65 x10^6/uL (4.30-5.70) Hemoglobin 7.9 g/dL (13.0-17.5) Hematocrit 24.4 % (39.0-53.0) Mean Corpuscular Volume 92 fL (79-100) Mean Corpuscular Hemoglobin 30 pg (25-35) Mean Corpuscular Hemoglobin Concent 33 g/dL (31-37) Red Cell Distribution Width 16.6 % (11.5-14.5) Platelet Count 384 x10^3/uL (140-400) Neutrophils (%) (Auto) 80 % (31-73) Lymphocytes (%) (Auto) 8 % (24-48) Monocytes (%) (Auto) 8 % (0-9) Eosinophils (%) (Auto) 5 % (0-3) Basophils (%) (Auto) 1 % (0-3) Neutrophils # (Auto) 12.3 x10^3uL (1.8-7.7) Lymphocytes # (Auto) 1.2 x10^3/uL (1.0-4.8) Monocytes # (Auto) 1.2 x10^3/uL (0.0-1.1) Eosinophils # (Auto) 0.7 x10^3/uL (0.0-0.7) Basophils # (Auto) 0.1 x10^3/uL (0.0-0.2) Sodium Level 136 mmol/L (136-145) Potassium Level 4.5 mmol/L (3.5-5.1) Chloride Level 106 mmol/L (98-107) Carbon Dioxide Level 21 mmol/L (21-32) Anion Gap 9 (6-14) Blood Urea Nitrogen 20 mg/dL (8-26) Creatinine 1.1 mg/dL (0.7-1.3) Estimated GFR (Cockcroft-Gault) 63.9 Glucose Level 126 mg/dL (70-99) Calcium Level 7.9 mg/dL (8.5-10.1) Phosphorus Level 2.6 mg/dL (2.6-4.7) Magnesium Level 2.0 mg/dL (1.8-2.4) Test 03/01/19 05:30 White Blood Count 13.8 x10^3/uL (4.0-11.0) Red Blood Count 2.47 x10^6/uL (4.30-5.70) Hemoglobin 7.5 g/dL (13.0-17.5) Hematocrit 22.7 % (39.0-53.0) Mean Corpuscular Volume 92 fL (79-100) Mean Corpuscular Hemoglobin 30 pg (25-35) Mean Corpuscular Hemoglobin Concent 33 g/dL (31-37) Red Cell Distribution Width 16.7 % (11.5-14.5) Platelet Count 355 x10^3/uL (140-400) Neutrophils (%) (Auto) 76 % (31-73) Lymphocytes (%) (Auto) 10 % (24-48) Monocytes (%) (Auto) 10 % (0-9) Eosinophils (%) (Auto) 5 % (0-3) Basophils (%) (Auto) 1 % (0-3) Neutrophils # (Auto) 10.4 x10^3uL (1.8-7.7) Lymphocytes # (Auto) 1.3 x10^3/uL (1.0-4.8) Monocytes # (Auto) 1.3 x10^3/uL (0.0-1.1) Eosinophils # (Auto) 0.6 x10^3/uL (0.0-0.7) Basophils # (Auto) 0.1 x10^3/uL (0.0-0.2) Sodium Level 137 mmol/L (136-145) Potassium Level 4.1 mmol/L (3.5-5.1) Chloride Level 105 mmol/L (98-107) Carbon Dioxide Level 24 mmol/L (21-32) Anion Gap 8 (6-14) Blood Urea Nitrogen 19 mg/dL (8-26) Creatinine 1.2 mg/dL (0.7-1.3) Estimated GFR (Cockcroft-Gault) 57.8 Glucose Level 102 mg/dL (70-99) Calcium Level 7.9 mg/dL (8.5-10.1) Laboratory Tests Test 03/01/19 05:30 White Blood Count 13.8 x10^3/uL (4.0-11.0) Red Blood Count 2.47 x10^6/uL (4.30-5.70) Hemoglobin 7.5 g/dL (13.0-17.5) Hematocrit 22.7 % (39.0-53.0) Mean Corpuscular Volume 92 fL (79-100) Mean Corpuscular Hemoglobin 30 pg (25-35) Mean Corpuscular Hemoglobin Concent 33 g/dL (31-37) Red Cell Distribution Width 16.7 % (11.5-14.5) Platelet Count 355 x10^3/uL (140-400) Neutrophils (%) (Auto) 76 % (31-73) Lymphocytes (%) (Auto) 10 % (24-48) Monocytes (%) (Auto) 10 % (0-9) Eosinophils (%) (Auto) 5 % (0-3) Basophils (%) (Auto) 1 % (0-3) Neutrophils # (Auto) 10.4 x10^3uL (1.8-7.7) Lymphocytes # (Auto) 1.3 x10^3/uL (1.0-4.8) Monocytes # (Auto) 1.3 x10^3/uL (0.0-1.1) Eosinophils # (Auto) 0.6 x10^3/uL (0.0-0.7) Basophils # (Auto) 0.1 x10^3/uL (0.0-0.2) Sodium Level 137 mmol/L (136-145) Potassium Level 4.1 mmol/L (3.5-5.1) Chloride Level 105 mmol/L (98-107) Carbon Dioxide Level 24 mmol/L (21-32) Anion Gap 8 (6-14) Blood Urea Nitrogen 19 mg/dL (8-26) Creatinine 1.2 mg/dL (0.7-1.3) Estimated GFR (Cockcroft-Gault) 57.8 Glucose Level 102 mg/dL (70-99) Calcium Level 7.9 mg/dL (8.5-10.1) Brief Hospital Course Mr. Joe is a 83 old gentleman who presented with symptomatic cholelit hiasis s/p placement of a cholecystostomy tube. Discharge Information Condition at Discharge: Stable Follow Up: As Needed Scheduled Aspirin (Aspirin) 81 Mg Tab.chew, 1 TAB PO DAILY for HEART, #30 Ref 3 (Reported) Entered as Reported by: THAI PAGE on 02/13/19 130 Last Taken: Unknown Dose on 02/11/19 Last Action: HELD on 02/17/191300 by CONNER FINE Atorvastatin Calcium (Atorvastatin Calcium) 40 Mg Tablet, 40 MG PO QHS for 30 Days, #30 Prescribed by: RICHARD JÁUREZ MD on 06/27/17 1320 Last Taken: Unknown Dose on 02/13/19 Last Action: Continued on 02/14/19 1402 by KEESHA POLLACK Cholecalciferol (Vitamin D3) (Vitamin D) 2,000 Unit Capsule, 1 CAP PO DAILY, #30 Ref 3 (Reported) Entered as Reported by: TORSTEN NAM on 08/12/15 0825 Last Taken: Unknown Dose on 02/13/19 Last Action: Converted on 02/17/19 130 by CONNER FINE Clopidogrel Bisulfate (Clopidogrel) 75 Mg Tablet, 75 MG PO DAILY for TO PREVENT BLOOD CLOTS, #30 Ref 0 (Reported) Entered as Reported by: THAI PAGE on 02/13/19 130 Last Taken: Unknown Dose on 02/11/19 Last Action: Continued on 02/17/19 130 by CONNER FINE Cyanocobalamin (Vitamin B-12) (Vitamin B-12) 1,000 Mcg Tablet, 1 TAB PO DAILY for Anemia, #30 Ref 2 (Reported) Entered as Reported by: YUE WATTS on 12/25/18 1319 Last Taken: Unknown Dose on 02/13/19 Last Action: Continued on 02/14/191401 by KEESHA POLLACK Losartan Potassium (Losartan Potassium) 100 Mg Tablet, 100 MG PO DAILY for HYPERTENSION, (Reported) Entered as Reported by: YUE WATTS on 12/25/18 0749 Last Taken: Unknown Dose on 02/14/19 0630 Last Action: Converted on 02/14/191401 by KEESHA POLLACK Metoprolol Succinate (Metoprolol Succinate ( Xl )) 25 Mg Tab.er.24h, 1 TAB PO DAILY for HTN, #30 Ref 5 (Reported) Entered as Reported by: YUE WATTS on 12/25/18 0749 Last Taken: Unknown Dose on 02/14/19629 Last Action: Continued on 02/14/191401 by KEESHA POLLACK Multivitamin (Multivitamins) 1 Each Tablet, 1 TAB PO DAILY, #90 Ref 3 (Reported) Entered as Reported by: TORSTEN NAM on 08/12/15 0825 Last Taken: Unknown Dose on 02/13/19 Last Action: Converted on 02/17/19 1301 by CONNER FINE Tamsulosin Hcl (Flomax) 0.4 Mg Cap.er.24h, 0.4 MG PO DAILY for BLADDER, (Reported) Entered as Reported by: THAI PAGE on 02/13/19 1303 Last Taken: Unknown Dose on 02/13/19 Last Action: Continued on 02/14/19 140 by KEESHA AMOS MD March 01, 2019 13:20
--- NOTE | 2019-03-01 13:52 | NUR ---
REPORT GIVEN TO SARAH MARSHALL AT [facility]. RIGHT PICC LINE REMOVED AND HEART MONITOR REMOVED. PATIENT OFF UNIT ER TRANSPORTATIONS.
--- NOTE | 2019-03-01 16:02 | DS ---
DATE OF DISCHARGE: 03/01/2019 ADMISSION DIAGNOSIS: Cholecystitis. DISCHARGE DIAGNOSES: 1. Resolving cholecystitis with postoperative day 15 laparoscopic cholecystectomy. 2. Postoperative hemoperitoneum. 3. Resolving sepsis. 4. Two NICOLAS drains are still in. 5. Hypertension. 6. Old stroke. 7. Gastroesophageal reflux disease. 8. Benign prostatic hypertrophy. 9. Prostatectomy. 10. Hernia repair. 11. Arthritis. CONSULTS: Dr. Bueno. Infectious Disease and Pulmonary Medicine and Cardiology. PROCEDURES: Cholecystectomy and two J-tube placements. HOSPITAL COURSE: The patient is a pleasant elderly male who basically presented with cholecystitis. He was taken by Dr. Bueno for a laparoscopic cholecystectomy. Postoperatively, he had a little hemoperitoneum. It became infected. He has been here for a couple of weeks, but today, he is doing better. Today, he is up on the commode. I saw him and examined him. His heart tones are normal. His lungs are clear. He has got two NICOLAS drains in place. He looks good. We plan to discharge to skilled. DISPOSITION: Skilled. ACTIVITY: As tolerated. DIET: Low sodium. MEDICATIONS: Please see the MRAD. TOTAL TIME: 32 minutes. MJL Li WARD DO DR: VANESSA/genaro JOB#: [id number] / [id number]
== END 2019-03-01 14:05 | DRG 853 ==
LOC: SURG 06:56 → 4 NORTH 14:34 → 1 WEST ICU 02-17 11:40 → 2 SOUTH 02-22 04:41
PROVIDERS: ADMIT Surgery; ATTEND Surgery
PROC: 0WJG4ZZ Inspection of Peritoneal Cavity, Percutaneous Endoscopic Approach (ICD-10-PCS; 2019-02-14)
PROC: BF111ZZ Fluoroscopy of Biliary and Pancreatic Ducts using Low Osmolar Contrast (ICD-10-PCS; 2019-02-14)
PROC: 0W3G4ZZ Control Bleeding in Peritoneal Cavity, Percutaneous Endoscopic Approach (ICD-10-PCS; 2019-02-14)
PROC: 0FT44ZZ Resection of Gallbladder, Percutaneous Endoscopic Approach (ICD-10-PCS; principal; 2019-02-14 09:15)
PROC: 0DJ08ZZ Inspection of Upper Intestinal Tract, Via Natural or Artificial Opening Endoscopic (ICD-10-PCS; 2019-02-21)
PROC: 0F9430Z Drainage of Gallbladder with Drainage Device, Percutaneous Approach (ICD-10-PCS; 2019-02-22)
PROC: 02HV33Z Insertion of Infusion Device into Superior Vena Cava, Percutaneous Approach (ICD-10-PCS; 2019-02-22)
PROC: B5181ZA Fluoroscopy of Superior Vena Cava using Low Osmolar Contrast, Guidance (ICD-10-PCS; 2019-02-22)
PROC: B548ZZA Ultrasonography of Superior Vena Cava, Guidance (ICD-10-PCS; 2019-02-22)
PROC: 30233R1 Transfusion of Nonautologous Platelets into Peripheral Vein, Percutaneous Approach (ICD-10-PCS; 2019-02-22)
PROC: 30233N1 Transfusion of Nonautologous Red Blood Cells into Peripheral Vein, Percutaneous Approach (ICD-10-PCS; 2019-02-22)
DX: A41.9 Sepsis, unspecified organism (principal); K66.1 Hemoperitoneum; J96.91 Respiratory failure, unspecified with hypoxia; N17.0 Acute kidney failure with tubular necrosis; K80.12 Calculus of gallbladder with acute and chronic cholecystitis without obstruction; D62 Acute posthemorrhagic anemia; J90 Pleural effusion, not elsewhere classified; K22.10 Ulcer of esophagus without bleeding; E78.5 Hyperlipidemia, unspecified; E87.2 Acidosis; I48.91 Unspecified atrial fibrillation; I12.9 Hypertensive chronic kidney disease with stage 1 through stage 4 chronic kidney disease, or unspecified chronic kidney disease; K21.0 Gastro-esophageal reflux disease with esophagitis; K26.9 Duodenal ulcer, unspecified as acute or chronic, without hemorrhage or perforation; M19.90 Unspecified osteoarthritis, unspecified site; N18.9 Chronic kidney disease, unspecified; N40.0 Benign prostatic hyperplasia without lower urinary tract symptoms; Z82.49 Family history of ischemic heart disease and other diseases of the circulatory system; Z86.73 Personal history of transient ischemic attack (TIA), and cerebral infarction without residual deficits; Z87.11 Personal history of peptic ulcer disease; I95.9 Hypotension, unspecified; K57.90 Diverticulosis of intestine, part unspecified, without perforation or abscess without bleeding; K64.9 Unspecified hemorrhoids; R13.10 Dysphagia, unspecified; Z88.8 Allergy status to other drugs, medicaments and biological substances; Z91.041 Radiographic dye allergy status
CPT/HCPCS: 36415; 36569; 43235; 49406; 71045; 71046; 71250; 74176; 74230; 74240; 74300; 76937; 77001; 78226; 80048; 80053; 81001; 82040; 82247; 82310; 82962; 83605; 83735; 84100; 85007; 85025; 85027; 85610; 85730; 86850; 86900; 86901; 86920; 87040; 87071; 87075; 87086; 87186; 88304; 93005; 93308; 96374; 97168; 99152; A4215; A7015; A9537; C1729; C1751; C1892; C1894; C9113; J0360; J0610; J0696; J1100; J1160; J1170; J1200; J1610; J1940; J2001; J2020; J2250; J2405; J2543; J2704; J2710; J3010; J3475; J3480; J3490; J7030; J7040; J7120; P9016; P9035; P9046; Q0163; Q9967; 92526; 92610; 92611; 97110; 97116; 97530; 97535

== ENCOUNTER 2020-05-04 18:30 | Inpatient (IN) | payer MEDICARE ==
[~2020-05-04] VITALS: Ht 175.3 cm; Wt 81.6 kg
[~2020-05-04 18:30] MED LIST changes: +CYAN-25 PO; -CYAN10005 PO; +MULT-445 PO; -MULT1TAB52 PO; -OMEP20CA10 PO; +OMEP20CA16 PO; +PANT40TA77 PO; +SIMV20TA18 PO; -SIMV20TA3 PO
--- NOTE | 2020-05-04 19:00 | PHYS DOC ---
General Adult EDM: Chief Complaint: SHORTNESS OF BREATH HPI: HPI: Patient is a 84 year old male arrives by EMS for evaluation of hypoxia. and fever. EMS state patient was 80% on 6L NC. Patient changed to NRB-- sats increased to 95%. Patient states he started coughing today. Patient is febrile and tachycardic on arrival. Review of Systems: Review of Systems: Constitutional: positive fever Eyes: Denies change in visual acuity. [] HENT: Denies nasal congestion or sore throat. [] Respiratory: positive cough Cardiovascular: Denies chest pain or edema. [] GI: Denies abdominal pain, nausea, bloody stools or diarrhea. [positive cough] : Denies dysuria. [] Musculoskeletal: Denies back pain or joint pain. [] Integument: Denies rash. [] Neurologic: Denies headache, focal weakness or sensory changes. [] Endocrine: Denies polyuria or polydipsia. [] Lymphatic: Denies swollen glands. [] Psychiatric: Denies depression or anxiety. [] Heart Score: Risk Factors: Risk Factors: DM, Current or recent (<one month) smoker, HTN, HLP, family history of CAD, obesity. Risk Scores: Score 0 - 3: 2.5% MACE over next 6 weeks - Discharge Home Score 4 - 6: 20.3% MACE over next 6 weeks - Admit for Clinical Observation Score 7 - 10: 72.7% MACE over next 6 weeks - Early Invasive Strategies Allergies: Allergies: Allergies Coded Allergies Type Severity Reaction Last Updated Verified Unable to Assess 05/04/20 No Physical Exam: PE: Constitutional: Well developed, well nourished, no acute distress, non-toxic appearance. [] HENT: Normocephalic, atraumatic, bilateral external ears normal, oropharynx moist, no oral exudates, nose normal. [] Eyes: PERRLA, EOMI, conjunctiva normal, no discharge. [] Neck: Normal range of motion, no tenderness, supple, no stridor. [] Cardiovascular:Heart rate regular rhythm, no murmur [] Lungs & Thorax: Bilateral breath sounds clear to auscultation [] Abdomen: Bowel sounds normal, soft, no tenderness, no masses, no pulsatile masses. [] Skin: Warm, dry, no erythema, no rash. [] Back: No tenderness, no CVA tenderness. [] Extremities: No tenderness, no cyanosis, no clubbing, ROM intact, no edema. [] Neurologic: Alert and oriented X 3, normal motor function, normal sensory function, no focal deficits noted. [] Psychologic: Affect normal, judgement normal, mood normal. [] EKG: EKG: EKG at 1840 heart rate 95 irregular rhythm A. fib rate controlled Radiology/Procedures: Radiology/Procedures: [] Impression: IMPRESSION: Findings likely related to pulmonary edema with small right pleural effusion. Superimposed infectious process is difficult to exclude. Course & Med Decision Making: Course & Med Decision Making Pertinent Labs and Imaging studies reviewed. (See chart for details) []Patient treated with tylenol and antibiotics. Covid test pending. Patient maintaining O2 sats > 90% on nonrebreather. Dragon Disclaimer: Dragon Disclaimer: This electronic medical record was generated, in whole or in part, using a voice recognition dictation system. Departure Departure Impression: Primary Impression: Person under investigation for COVID-19 Additional Impressions: Hypoxia Fever Disposition: ADMITTED INPATIENT Admitting Physician: Madi. Waldron Justicifation of Admission Dx: Justifications for Admission: Justification of Admission Dx: Yes Aspiration Pneumonia: Hypoxemia RUDY LE I DO May 04, 2020 19:00
[2020-05-04 19:08] LABS: BASO # 0.1 x10^3/uL (0.0-0.2); BASO % 1 % (0-3); EOS # 0.1 x10^3/uL (0.0-0.7); EOS % 1 % (0-3); HEMATOCRIT 38.9 % (39.0-53.0); HEMOGLOBIN 13.4 g/dL (13.0-17.5); LYMPH % 10 % (24-48); MEAN CORPUSCULAR HEMOGLOBIN 31 pg (25-35); MEAN CORPUSCULAR HGB CONC 34 g/dL (31-37); MEAN CORPUSCULAR VOLUME 91 fL (79-100); MONO # 0.7 x10^3/uL (0.0-1.1); MONO % 6 % (0-9); NEUT # 8.8 x10^3/uL (1.8-7.7); NEUT % 82 % (31-73); PLATELET COUNT 306 x10^3/uL (140-400); RED BLOOD COUNT 4.28 x10^6/uL (4.30-5.70); RED CELL DISTRIBUTION WIDTH 13.9 % (11.5-14.5); WHITE BLOOD COUNT 10.7 x10^3/uL (4.0-11.0)
[2020-05-04 19:12] LABS: CALCIUM 8.7 mg/dL (8.5-10.1); CREATININE 1.4 mg/dL (0.7-1.3); GFR 48.3; POTASSIUM 3.9 mmol/L (3.5-5.1)
[2020-05-04] MEDS ORDERED: cefTRIAXone IV Push 1 GM VIAL. IVP ONE (19:15)
[2020-05-04] MEDS ORDERED: MORPHINE SULFATE 2 MG/ML VIAL. IV ONE (19:15)
[2020-05-04] MEDS ORDERED: ACETAMINOPHEN 500 MG TABLET PO ONE (19:15)
[2020-05-04] MEDS ORDERED: AZITHRMYCN 500MG IVPB FOR OMNI 250 ML IV ONE (19:15)
[2020-05-04 19:18] LABS: ALBUMIN 2.9 g/dL (3.4-5.0); ALBUMIN/GLOBULIN RATIO 0.7 (1.0-1.7); TOTAL BILIRUBIN 0.3 mg/dL (0.2-1.0)
[2020-05-04 19:22] LABS: BILIRUBIN,URINE NEGATIVE (NEG); CLARITY,URINE CLEAR; COLOR,URINE YELLOW; NITRITE,URINE NEGATIVE (NEG); PH,URINE 5.5 (<5.0-8.0); PROTEIN,URINE NEGATIVE (NEG-TRACE); UROBILINOGEN,URINE 0.2 mg/dL (0.2 mg/dL)
--- NOTE | 2020-05-04 19:32 | RAD ---
Exam: Chest one view INDICATION: Shortness of breath TECHNIQUE: Frontal view of the chest Comparisons: None FINDINGS: The cardiomediastinal silhouette and pulmonary vessels are within normal limits. Hazy opacity at the right lung base. Small pleural effusion. Strandy opacity at the left lung base. IMPRESSION: Findings likely related to pulmonary edema with small right pleural effusion. Superimposed infectious process is difficult to exclude. Electronically signed by: Efe Snow MD (05/04/2020 7:28 PM) [id number]
[2020-05-04 19:55] LABS: BACTERIA,URINE 0 /HPF (0-FEW); RBC,URINE 0 /HPF (0-2); SQUAMOUS EPITHELIAL CELL,UR FEW /LPF; WBC,URINE RARE /HPF (0-4)
[2020-05-04] MEDS ORDERED: IV NORMAL SALINE 1000ML BAG 1,000 ML IV ONE (20:00)
[2020-05-04] MEDS ORDERED: ONDANSETRON PF 4 MG/2 ML VIAL. IV PRN (20:00)
[2020-05-04] MEDS ORDERED: dilTIAZem IV PUSH 25 MG/5 ML VIAL IVP ONE (20:15)
[2020-05-04 20:36] LABS: PROTHROMBIN TIME PATIENT 13.4 SEC (11.7-14.0)
[2020-05-04 23:20] VITALS: BP 118/52
[2020-05-05 02:30] LABS: CALCIUM 8.3 mg/dL (8.5-10.1); CREATININE 1.5 mg/dL (0.7-1.3); GFR 44.6; POTASSIUM 4.1 mmol/L (3.5-5.1)
[2020-05-05 03:00] VITALS: BP 96/49
--- NOTE | 2020-05-05 03:28 | NUR ---
Notified Dr. Cash of elevated troponins x's 2, orders for stat EKG and cardiology consult received
[2020-05-05] MEDS ORDERED: MULT-245 PO (03:35)
[2020-05-05] MEDS ORDERED: ASPI-630 PO (03:35)
[2020-05-05] MEDS ORDERED: CLOP75TA PO (03:41)
[2020-05-05] MEDS ORDERED: TAMS0.4C97 PO (03:41)
[2020-05-05] MEDS ORDERED: ATOR20TA58 PO (03:41)
[2020-05-05] MEDS ORDERED: CHOL400C PO (03:41)
[2020-05-05] MEDS ORDERED: CYAN25008 PO (03:41)
[2020-05-05] MEDS ORDERED: LOSA100T14 PO (03:41)
[2020-05-05] MEDS ORDERED: OMEP20TA8 PO (03:41)
[2020-05-05] MEDS ORDERED: METO-239 PO (03:41)
[2020-05-05 07:00] VITALS: BP 106/52
[2020-05-05] MEDS: ALBUTEROL SULFATE 8GM INHALER. INH SCH ×3 (07:00→15:00)
--- NOTE | 2020-05-05 07:55 | EKG ---
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
--- NOTE | 2020-05-05 07:55 | EKG ---
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
[2020-05-05 08:28] LABS: BASO # 0.1 x10^3/uL (0.0-0.2); BASO % 0 % (0-3); EOS % 0 % (0-3); HEMATOCRIT 36.6 % (39.0-53.0); HEMOGLOBIN 12.1 g/dL (13.0-17.5); LYMPH # 1.2 x10^3/uL (1.0-4.8); LYMPH % 8 % (24-48); MEAN CORPUSCULAR HEMOGLOBIN 30 pg (25-35); MEAN CORPUSCULAR HGB CONC 33 g/dL (31-37); MEAN CORPUSCULAR VOLUME 92 fL (79-100); MONO # 1.7 x10^3/uL (0.0-1.1); MONO % 10 % (0-9); NEUT # 13.2 x10^3/uL (1.8-7.7); NEUT % 82 % (31-73); PLATELET COUNT 285 x10^3/uL (140-400); RED BLOOD COUNT 3.97 x10^6/uL (4.30-5.70); RED CELL DISTRIBUTION WIDTH 14.2 % (11.5-14.5); WHITE BLOOD COUNT 16.2 x10^3/uL (4.0-11.0)
--- NOTE | 2020-05-05 08:50 | PDOC1 ---
History and Physical Date of Admission: Date of Admission DATE: 05/05/20 TIME: 08:45 Chief Complaint: Problems: (1) Fever (2) Pneumonia (3) Atrial fibrillation (4) HTN (hypertension) (5) ARF (acute renal failure) (6) Person under investigation for COVID-19 (7) Hypoxia (8) Troponin level elevated History of Present Illness: HPI: Patient is a 84-year-old male with past medical history of hypertension, A. fib, CVA, who presents to the ED with complaints of shortness of breath and fevers of 103. He was claimed to be saturating at 86% on 6 L nasal cannula with EMS. Patient also states that he had some cough and associated chest pain. Denies any nausea vomiting, abdominal pain, diarrhea. Past Medical/Surgical History: PMH/PSH: Past Medical History * A-Fib * GI Bleed * Hypertension * Stroke Allergies: Allergies: Coded Allergies: iron (Verified Allergy, Unknown, 05/05/20) Iodinated Contrast Media (Verified Adverse Reaction, Intermediate, 05/04/20) Family History: Family History: None Social History: Social History: Denies alcohol, smoking, drug abuse Current Medications: Current Medications Current Medications Acetaminophen (Tylenol) 1,000 mg 1X ONCE PO Last administered on 05/04/20at 19:06; Start 05/04/20 at 19:15; Stop 05/04/20 at 19:16; Status DC Ceftriaxone Sodium (Rocephin) 1 gm 1X ONCE IVP Last administered on 05/04/20at 19:15; Start 05/04/20 at 19:15; Stop 05/04/20 at 19:16; Status DC Azithromycin 250 ml @ 250 mls/hr 1X ONCE IV Last administered on 05/04/20at 19:15; Start 05/04/20 at 19:15; Stop 05/04/20 at 20:14; Status DC Morphine Sulfate (Morphine Sulfate) 2 mg 1X ONCE IV ; Start 05/04/20 at 19:15; Stop 05/04/20 at 19:16; Status Cancel Lorazepam (Ativan Inj) 1 mg 1X ONCE IVP ; Start 05/04/20 at 19:15; Stop 05/04/20 at 19:16; Status Cancel Sodium Chloride 1,000 ml @ 1,000 mls/hr 1X ONCE IV Last administered on 05/04/20at 19:00; Start 05/04/20 at 20:00; Stop 05/04/20 at 20:59; Status DC Ondansetron HCl (Zofran) 4 mg PRN Q8HRS PRN IV NAUSEA/VOMITING; Start 05/04/20 at 20:00; Stop 05/05/20 at 19:59 Diltiazem HCl (Cardizem Iv Push) 20 mg 1X ONCE IVP ; Start 05/04/20 at 20:15; Stop 05/04/20 at 20:16; Status DC Albuterol Sulfate (Ventolin Hfa) 1 puff Q4H INH ; Start 05/04/20 at 23:00 Active Scripts Active Reported Metoprolol Succinate ( Xl ) (Metoprolol Succinate) 25 Mg Tab.er.24h 1 Tab PO DAILY Losartan Potassium 100 Mg Tablet 100 Mg PO DAILY Atorvastatin Calcium 20 Mg Tablet 1 Tab PO DAILY Clopidogrel (Clopidogrel Bisulfate) 75 Mg Tablet 1 Tab PO DAILY Flomax (Tamsulosin Hcl) 0.4 Mg Cap.er.24h 1 Cap PO DAILY Omeprazole 20 Mg Tablet.dr 1 Tab PO DAILY Vitamin B12 (Cyanocobalamin (Vitamin B-12)) 2,500 Mcg Tablet 1 Tab PO DAILY 30 Days Vitamin D3 (Cholecalciferol (Vitamin D3)) 10 Mcg Capsule 10 Mcg PO DAILY PRN Multi Vitamin Daily (Multivitamin) 1 Each Tablet 1 Tab PO DAILY 30 Days Aspirin 81 Mg Tab.chew 1 Tab PO DAILY ROS: Review of Systems Review of System REVIEW OF SYSTEMS: GENERAL: Denies weakness SKIN: No bruising, hair changes or rashes. EYES: No blurred, double or loss of vision. NOSE AND THROAT: No history of nosebleeds, hoarseness or sore throat. HEART: No history of palpitations, chest pain or shortness of breath on exertion. LUNGS: Denies cough, hemoptysis, wheezing or shortness of breath. GASTROINTESTINAL: Denies changes in appetite, nausea, vomiting, diarrhea or constipation. GENITOURINARY: No history of frequency, urgency, hesitancy or nocturia. NEUROLOGIC: Denies history of numbness, tingling, or tremor. PSYCHIATRIC: No history of panic, anxiety or depression. ENDOCRINE: No history of heat or cold intolerance, polyuria or polydipsia. EXTREMITIES: Denies joint pain, pain on walking or stiffness. Physical Exam: Vital Signs: Vital Signs Date Time Temp Pulse Resp B/P (MAP) Pulse Ox O2 Delivery O2 Flow Rate FiO2 05/04/20 23:20 99.2 82 20 118/52 (74) 99 Room Air 99.2 05/04/20 21:40 8.0 Physcial Exam: GEN: No apparent distress. Alert and oriented HEENT: Normal cephalic, atraumatic, external auditory canals are patent EYES: Extraocular muscles are intact, pupil are equally round and reactive to light and accommodation MUSCULOSKELETAL: Well developed , well nourished, good range of motion ENDOCRINE: No thyromegaly was palpated LYMPHATICS: No cervical chain or axillary nodes were noted HEMATOPOIETIC: No bruising NECK: Supple, no JVD, no thyromegaly was noted LUNGS: Clear to auscultation in all lung leigh without rhonchi or wheezing HEART: RRR, S1, S2 present. Peripheral pulses intact, no obvious murmurs noted ABDOMEN: Soft, nontender. Positive bowel sounds, no organomegaly, normal bowel sounds EXTREMITIES: Without clubbing, cyanosis, or edema. Pedal pulses intact. Negative Homans sign NEUROLOGIC: Normal speech and tone. A&O x 3, moves all extremities, no obvious focal deficits PSYCHIATRIC: Normal affect, normal mood. Stable SKIN: No ulcerations or rashes, good skin turgor, no jaundice VASCULAR: Good capillary refill, neurovascular bundle appears to be intact Labs: Labs: Laboratory Tests Test 05/04/20 18:45 05/04/20 18:48 05/04/20 19:00 05/04/20 21:55 White Blood Count 10.7 x10^3/uL (4.0-11.0) Red Blood Count 4.28 x10^6/uL (4.30-5.70) Hemoglobin 13.4 g/dL (13.0-17.5) Hematocrit 38.9 % (39.0-53.0) Mean Corpuscular Volume 91 fL (79-100) Mean Corpuscular Hemoglobin 31 pg (25-35) Mean Corpuscular Hemoglobin Concent 34 g/dL (31-37) Red Cell Distribution Width 13.9 % (11.5-14.5) Platelet Count 306 x10^3/uL (140-400) Neutrophils (%) (Auto) 82 % (31-73) Lymphocytes (%) (Auto) 10 % (24-48) Monocytes (%) (Auto) 6 % (0-9) Eosinophils (%) (Auto) 1 % (0-3) Basophils (%) (Auto) 1 % (0-3) Neutrophils # (Auto) 8.8 x10^3/uL (1.8-7.7) Lymphocytes # (Auto) 1.0 x10^3/uL (1.0-4.8) Monocytes # (Auto) 0.7 x10^3/uL (0.0-1.1) Eosinophils # (Auto) 0.1 x10^3/uL (0.0-0.7) Basophils # (Auto) 0.1 x10^3/uL (0.0-0.2) Sodium Level 140 mmol/L (136-145) Potassium Level 3.9 mmol/L (3.5-5.1) Chloride Level 106 mmol/L (98-107) Carbon Dioxide Level 22 mmol/L (21-32) Anion Gap 12 (6-14) Blood Urea Nitrogen 27 mg/dL (8-26) Creatinine 1.4 mg/dL (0.7-1.3) Estimated GFR (Cockcroft-Gault) 48.3 BUN/Creatinine Ratio 19 (6-20) Glucose Level 140 mg/dL (70-99) Lactic Acid Level 1.3 mmol/L (0.4-2.0) Calcium Level 8.7 mg/dL (8.5-10.1) Total Bilirubin 0.3 mg/dL (0.2-1.0) Aspartate Amino Transf (AST/SGOT) 25 U/L (15-37) Alanine Aminotransferase (ALT/SGPT) 26 U/L (16-63) Alkaline Phosphatase 102 U/L (46-116) FN-Xas-S-Type Natriuretic Peptide 124 pg/mL (0-449) Total Protein 7.0 g/dL (6.4-8.2) Albumin 2.9 g/dL (3.4-5.0) Albumin/Globulin Ratio 0.7 (1.0-1.7) Prothrombin Time 13.4 SEC (11.7-14.0) Prothromb Time International Ratio 1.1 (0.8-1.1) Activated Partial Thromboplast Time 30 SEC (24-38) Urine Collection Type Void Urine Color Yellow Urine Clarity Clear Urine pH 5.5 (<5.0-8.0) Urine Specific [place] 1.025 (1.000-1.030) Urine Protein Negative mg/dL (NEG-TRACE) Urine Glucose (UA) Negative mg/dL (NEG) Urine Ketones (Stick) Negative mg/dL (NEG) Urine Blood Negative (NEG) Urine Nitrite Negative (NEG) Urine Bilirubin Negative (NEG) Urine Urobilinogen Dipstick 0.2 mg/dL (0.2 mg/dL) Urine Leukocyte Esterase Negative (NEG) Urine RBC 0 /HPF (0-2) Urine WBC Rare /HPF (0-4) Urine Squamous Epithelial Cells Few /LPF Urine Bacteria 0 /HPF (0-FEW) Urine Mucus Mod /LPF Troponin I Quantitative 0.068 ng/mL (0.000-0.055) Test 05/05/20 01:55 White Blood Count 16.2 x10^3/uL (4.0-11.0) Red Blood Count 3.97 x10^6/uL (4.30-5.70) Hemoglobin 12.1 g/dL (13.0-17.5) Hematocrit 36.6 % (39.0-53.0) Mean Corpuscular Volume 92 fL (79-100) Mean Corpuscular Hemoglobin 30 pg (25-35) Mean Corpuscular Hemoglobin Concent 33 g/dL (31-37) Red Cell Distribution Width 14.2 % (11.5-14.5) Platelet Count 285 x10^3/uL (140-400) Neutrophils (%) (Auto) 82 % (31-73) Lymphocytes (%) (Auto) 8 % (24-48) Monocytes (%) (Auto) 10 % (0-9) Eosinophils (%) (Auto) 0 % (0-3) Basophils (%) (Auto) 0 % (0-3) Neutrophils # (Auto) 13.2 x10^3/uL (1.8-7.7) Lymphocytes # (Auto) 1.2 x10^3/uL (1.0-4.8) Monocytes # (Auto) 1.7 x10^3/uL (0.0-1.1) Eosinophils # (Auto) 0.0 x10^3/uL (0.0-0.7) Basophils # (Auto) 0.1 x10^3/uL (0.0-0.2) Sodium Level 140 mmol/L (136-145) Potassium Level 4.1 mmol/L (3.5-5.1) Chloride Level 108 mmol/L (98-107) Carbon Dioxide Level 23 mmol/L (21-32) Anion Gap 9 (6-14) Blood Urea Nitrogen 28 mg/dL (8-26) Creatinine 1.5 mg/dL (0.7-1.3) Estimated GFR (Cockcroft-Gault) 44.6 Glucose Level 162 mg/dL (70-99) Calcium Level 8.3 mg/dL (8.5-10.1) Troponin I Quantitative 0.218 ng/mL (0.000-0.055) Laboratory Tests Test 05/04/20 18:45 05/04/20 18:48 05/04/20 19:00 05/04/20 21:55 White Blood Count 10.7 x10^3/uL (4.0-11.0) Red Blood Count 4.28 x10^6/uL (4.30-5.70) Hemoglobin 13.4 g/dL (13.0-17.5) Hematocrit 38.9 % (39.0-53.0) Mean Corpuscular Volume 91 fL (79-100) Mean Corpuscular Hemoglobin 31 pg (25-35) Mean Corpuscular Hemoglobin Concent 34 g/dL (31-37) Red Cell Distribution Width 13.9 % (11.5-14.5) Platelet Count 306 x10^3/uL (140-400) Neutrophils (%) (Auto) 82 % (31-73) Lymphocytes (%) (Auto) 10 % (24-48) Monocytes (%) (Auto) 6 % (0-9) Eosinophils (%) (Auto) 1 % (0-3) Basophils (%) (Auto) 1 % (0-3) Neutrophils # (Auto) 8.8 x10^3/uL (1.8-7.7) Lymphocytes # (Auto) 1.0 x10^3/uL (1.0-4.8) Monocytes # (Auto) 0.7 x10^3/uL (0.0-1.1) Eosinophils # (Auto) 0.1 x10^3/uL (0.0-0.7) Basophils # (Auto) 0.1 x10^3/uL (0.0-0.2) Sodium Level 140 mmol/L (136-145) Potassium Level 3.9 mmol/L (3.5-5.1) Chloride Level 106 mmol/L (98-107) Carbon Dioxide Level 22 mmol/L (21-32) Anion Gap 12 (6-14) Blood Urea Nitrogen 27 mg/dL (8-26) Creatinine 1.4 mg/dL (0.7-1.3) Estimated GFR (Cockcroft-Gault) 48.3 BUN/Creatinine Ratio 19 (6-20) Glucose Level 140 mg/dL (70-99) Lactic Acid Level 1.3 mmol/L (0.4-2.0) Calcium Level 8.7 mg/dL (8.5-10.1) Total Bilirubin 0.3 mg/dL (0.2-1.0) Aspartate Amino Transf (AST/SGOT) 25 U/L (15-37) Alanine Aminotransferase (ALT/SGPT) 26 U/L (16-63) Alkaline Phosphatase 102 U/L (46-116) ER-Pxr-O-Type Natriuretic Peptide 124 pg/mL (0-449) Total Protein 7.0 g/dL (6.4-8.2) Albumin 2.9 g/dL (3.4-5.0) Albumin/Globulin Ratio 0.7 (1.0-1.7) Prothrombin Time 13.4 SEC (11.7-14.0) Prothromb Time International Ratio 1.1 (0.8-1.1) Activated Partial Thromboplast Time 30 SEC (24-38) Urine Collection Type Void Urine Color Yellow Urine Clarity Clear Urine pH 5.5 (<5.0-8.0) Urine Specific [place] 1.025 (1.000-1.030) Urine Protein Negative mg/dL (NEG-TRACE) Urine Glucose (UA) Negative mg/dL (NEG) Urine Ketones (Stick) Negative mg/dL (NEG) Urine Blood Negative (NEG) Urine Nitrite Negative (NEG) Urine Bilirubin Negative (NEG) Urine Urobilinogen Dipstick 0.2 mg/dL (0.2 mg/dL) Urine Leukocyte Esterase Negative (NEG) Urine RBC 0 /HPF (0-2) Urine WBC Rare /HPF (0-4) Urine Squamous Epithelial Cells Few /LPF Urine Bacteria 0 /HPF (0-FEW) Urine Mucus Mod /LPF Troponin I Quantitative 0.068 ng/mL (0.000-0.055) Test 05/05/20 01:55 White Blood Count 16.2 x10^3/uL (4.0-11.0) Red Blood Count 3.97 x10^6/uL (4.30-5.70) Hemoglobin 12.1 g/dL (13.0-17.5) Hematocrit 36.6 % (39.0-53.0) Mean Corpuscular Volume 92 fL (79-100) Mean Corpuscular Hemoglobin 30 pg (25-35) Mean Corpuscular Hemoglobin Concent 33 g/dL (31-37) Red Cell Distribution Width 14.2 % (11.5-14.5) Platelet Count 285 x10^3/uL (140-400) Neutrophils (%) (Auto) 82 % (31-73) Lymphocytes (%) (Auto) 8 % (24-48) Monocytes (%) (Auto) 10 % (0-9) Eosinophils (%) (Auto) 0 % (0-3) Basophils (%) (Auto) 0 % (0-3) Neutrophils # (Auto) 13.2 x10^3/uL (1.8-7.7) Lymphocytes # (Auto) 1.2 x10^3/uL (1.0-4.8) Monocytes # (Auto) 1.7 x10^3/uL (0.0-1.1) Eosinophils # (Auto) 0.0 x10^3/uL (0.0-0.7) Basophils # (Auto) 0.1 x10^3/uL (0.0-0.2) Sodium Level 140 mmol/L (136-145) Potassium Level 4.1 mmol/L (3.5-5.1) Chloride Level 108 mmol/L (98-107) Carbon Dioxide Level 23 mmol/L (21-32) Anion Gap 9 (6-14) Blood Urea Nitrogen 28 mg/dL (8-26) Creatinine 1.5 mg/dL (0.7-1.3) Estimated GFR (Cockcroft-Gault) 44.6 Glucose Level 162 mg/dL (70-99) Calcium Level 8.3 mg/dL (8.5-10.1) Troponin I Quantitative 0.218 ng/mL (0.000-0.055) Assessment/Plan Assessment/Plan Assessment and plan Acute respiratory distress Elevated troponins AKIATN Atrial fibrillation Hypertension COVID rule out Pending cardiology evaluation Lasix x1 IV Pending echo Continue empiric antibiotics Pending blood cultures Continue home meds Admit to telemetry floor Avoid nephrotoxic medications Pending COVID test PT OT Justicifation of Admission Dx: Justifications for Admission: Justification of Admission Dx: Yes Aspiration Pneumonia: Hypoxemia TOAN KRISHNAMURTHY MD May 05, 2020 08:50
[2020-05-05] MEDS: ASPIRIN CHEWABLE 81 MG TABLET. PO SCH (09:49)
[2020-05-05] MEDS: CLOPIDOGREL BISULFATE 75 MG TABLET PO SCH (09:49)
[2020-05-05] MEDS: METOPROLOL SUCC 24HR ER 25 MG TAB.ER.24H. PO SCH (09:50)
[2020-05-05 11:20] VITALS: BP 125/60
[2020-05-05 11:48] LABS: % BANDS 22 % (0-9); % BASOS 1 % (0-3); % LYMPHS 7 % (24-48); % METAS 2 % (0-0); % MONOS 6 % (0-10); % SEGS 62 % (35-66); PLT ESTIMATE ADEQUATE (ADEQUATE)
[2020-05-05] MEDS: PANTOPRAZOLE 40 MG TABLET.DR. PO SCH (12:17)
--- NOTE | 2020-05-05 12:29 | DISCH ---
DISCHARGE INSTRUCTIONS Condition on Discharge Condition on Discharge: Guarded Activity After Discharge Activity Instructions for Disc: No restrictions (Patient to go to correction facility with hospice care) Driving Instructions after Dis: No driving for 6 months TOAN KRISHNAMURTHY MD May 05, 2020 12:29
--- NOTE | 2020-05-05 12:32 | PDOC2 ---
REBEKA GAINES [employer] 05/05/20 1232: CARDIAC CONSULT DATE OF CONSULT Date of Consult DATE: 05/05/20 TIME: 12:18 REASON FOR CONSULT Reason for Consult: Elevated troponin REFERRING PHYSICIAN Referring Physician: Dr. Gissell Cash SOURCE Source: Chart review, Patient HISTORY OF PRESENT ILLNESS HISTORY OF PRESENT ILLNESS This is an 84 yo male who presented secondary to shortness of breath, hypoxia, and fever. Troponin noted to be elevated, which prompted this consult. PAST MEDICAL HISTORY Cardiovascular: HTN, Other (PSVT) CENTRAL NERVOUS SYSTEM: CVA GI: GERD, GI bleed Renal/: Benign prostatic enlarg. PAST SURGICAL HISTORY Past Surgical History: Cholecystectomy, Hernia Repair, Other (prostatectomy ) FAMILY HISTORY Family History: Heart Disease SOCIAL HISTORY Smoke: No ALCOHOL: none Drugs: None Lives: with Family CURRENT MEDICATIONS CURRENT MEDICATIONS Current Medications Medications (Trade) Dose Ordered Sig/Zane Route PRN Reason Start Time Stop Time Status Last Admin Dose Admin Acetaminophen (Tylenol) 1,000 mg 1X ONCE PO 05/04/20 19:15 05/04/20 19:16 DC 05/04/20 19:06 Ceftriaxone Sodium (Rocephin) 1 gm 1X ONCE IVP 05/04/20 19:15 05/04/20 19:16 DC 05/04/20 19:15 Azithromycin 250 ml @ 250 mls/hr 1X ONCE IV 05/04/20 19:15 05/04/20 20:14 DC 05/04/20 19:15 Sodium Chloride 1,000 ml @ 1,000 mls/hr 1X ONCE IV 05/04/20 20:00 05/04/20 20:59 DC 05/04/20 19:00 Albuterol Sulfate (Ventolin Hfa) 1 puff Q4H INH 05/04/20 23:00 05/05/20 07:00 Aspirin (Aspirin Chewable) 81 mg DAILY PO 05/05/20 09:00 05/05/20 09:49 Clopidogrel Bisulfate (Plavix) 75 mg DAILY PO 05/05/20 09:00 05/05/20 09:49 Metoprolol Succinate (Toprol Xl) 25 mg DAILY PO 05/05/20 09:00 05/05/20 09:50 ALLERGIES ALLERGIES: Coded Allergies: iron (Verified Allergy, Unknown, 05/05/20) Iodinated Contrast Media (Verified Adverse Reaction, Intermediate, 05/04/20) ROS Review of System 14 point ROS conducted with pertinent positives noted above in HPI PHYSICAL EXAM General: Alert, Oriented X3, Cooperative, No acute distress HEENT: Atraumatic, Mucous membr. moist/pink Lungs: Other (bibasilar crackles, on 7L NC) Heart: Regular rate Abdomen: Soft Extremities: Other (trace bilateral LE edema) Skin: No significant lesion Neuro: Normal speech, Sensation intact Psych/Mental Status: Mood NL MUSCULOSKELETAL: Osteoarthritic changes both hands VITALS/I&O VITALS/I&O: Vital Signs Date Time Temp Pulse Resp B/P (MAP) Pulse Ox O2 Delivery O2 Flow Rate FiO2 05/05/20 11:20 98.2 77 16 125/60 (81) 98 Nasal Cannula 7.0 98.2 I & O 05/04/20 05/04/20 05/05/20 15:00 23:00 07:00 Intake Total 0 ml Output Total 110 ml Balance -110 ml LABS Lab: Laboratory Tests Test 05/04/20 18:45 05/04/20 18:48 05/04/20 19:00 05/04/20 21:55 White Blood Count 10.7 x10^3/uL (4.0-11.0) Red Blood Count 4.28 x10^6/uL (4.30-5.70) L Hemoglobin 13.4 g/dL (13.0-17.5) Hematocrit 38.9 % (39.0-53.0) L Mean Corpuscular Volume 91 fL (79-100) Mean Corpuscular Hemoglobin 31 pg (25-35) Mean Corpuscular Hemoglobin Concent 34 g/dL (31-37) Red Cell Distribution Width 13.9 % (11.5-14.5) Platelet Count 306 x10^3/uL (140-400) Neutrophils (%) (Auto) 82 % (31-73) H Lymphocytes (%) (Auto) 10 % (24-48) L Monocytes (%) (Auto) 6 % (0-9) Eosinophils (%) (Auto) 1 % (0-3) Basophils (%) (Auto) 1 % (0-3) Neutrophils # (Auto) 8.8 x10^3/uL (1.8-7.7) H Lymphocytes # (Auto) 1.0 x10^3/uL (1.0-4.8) Monocytes # (Auto) 0.7 x10^3/uL (0.0-1.1) Eosinophils # (Auto) 0.1 x10^3/uL (0.0-0.7) Basophils # (Auto) 0.1 x10^3/uL (0.0-0.2) Sodium Level 140 mmol/L (136-145) Potassium Level 3.9 mmol/L (3.5-5.1) Chloride Level 106 mmol/L (98-107) Carbon Dioxide Level 22 mmol/L (21-32) Anion Gap 12 (6-14) Blood Urea Nitrogen 27 mg/dL (8-26) H Creatinine 1.4 mg/dL (0.7-1.3) H Estimated GFR (Cockcroft-Gault) 48.3 BUN/Creatinine Ratio 19 (6-20) Glucose Level 140 mg/dL (70-99) H Lactic Acid Level 1.3 mmol/L (0.4-2.0) Calcium Level 8.7 mg/dL (8.5-10.1) Total Bilirubin 0.3 mg/dL (0.2-1.0) Aspartate Amino Transferase (AST) 25 U/L (15-37) Alanine Aminotransferase (ALT) 26 U/L (16-63) Alkaline Phosphatase 102 U/L (46-116) VM-Oth-U-Type Natriuretic Peptide 124 pg/mL (0-449) Total Protein 7.0 g/dL (6.4-8.2) Albumin 2.9 g/dL (3.4-5.0) L Albumin/Globulin Ratio 0.7 (1.0-1.7) L Prothrombin Time 13.4 SEC (11.7-14.0) Prothrombin Time INR 1.1 (0.8-1.1) Activated Partial Thromboplast Time 30 SEC (24-38) Urine Collection Type Void Urine Color Yellow Urine Clarity Clear Urine pH 5.5 (<5.0-8.0) Urine Specific [place] 1.025 (1.000-1.030) Urine Protein Negative mg/dL (NEG-TRACE) Urine Glucose (UA) Negative mg/dL (NEG) Urine Ketones (Stick) Negative mg/dL (NEG) Urine Blood Negative (NEG) Urine Nitrite Negative (NEG) Urine Bilirubin Negative (NEG) Urine Urobilinogen Dipstick 0.2 mg/dL (0.2 mg/dL) Urine Leukocyte Esterase Negative (NEG) Urine RBC 0 /HPF (0-2) Urine WBC Rare /HPF (0-4) Urine Squamous Epithelial Cells Few /LPF Urine Bacteria 0 /HPF (0-FEW) Urine Mucus Mod /LPF Troponin I Quantitative 0.068 ng/mL (0.000-0.055) Test 05/05/20 01:55 White Blood Count 16.2 x10^3/uL (4.0-11.0) H Red Blood Count 3.97 x10^6/uL (4.30-5.70) L Hemoglobin 12.1 g/dL (13.0-17.5) L Hematocrit 36.6 % (39.0-53.0) L Mean Corpuscular Volume 92 fL (79-100) Mean Corpuscular Hemoglobin 30 pg (25-35) Mean Corpuscular Hemoglobin Concent 33 g/dL (31-37) Red Cell Distribution Width 14.2 % (11.5-14.5) Platelet Count 285 x10^3/uL (140-400) Neutrophils (%) (Auto) 82 % (31-73) H Lymphocytes (%) (Auto) 8 % (24-48) L Monocytes (%) (Auto) 10 % (0-9) H Eosinophils (%) (Auto) 0 % (0-3) Basophils (%) (Auto) 0 % (0-3) Neutrophils # (Auto) 13.2 x10^3/uL (1.8-7.7) H Lymphocytes # (Auto) 1.2 x10^3/uL (1.0-4.8) Monocytes # (Auto) 1.7 x10^3/uL (0.0-1.1) H Eosinophils # (Auto) 0.0 x10^3/uL (0.0-0.7) Basophils # (Auto) 0.1 x10^3/uL (0.0-0.2) Segmented Neutrophils % 62 % (35-66) Band Neutrophils % 22 % (0-9) H Lymphocytes % 7 % (24-48) L Monocytes % 6 % (0-10) Basophils % 1 % (0-3) Metamyelocytes % 2 % (0-0) H Platelet Estimate Adequate (ADEQUATE) Sodium Level 140 mmol/L (136-145) Potassium Level 4.1 mmol/L (3.5-5.1) Chloride Level 108 mmol/L (98-107) H Carbon Dioxide Level 23 mmol/L (21-32) Anion Gap 9 (6-14) Blood Urea Nitrogen 28 mg/dL (8-26) H Creatinine 1.5 mg/dL (0.7-1.3) H Estimated GFR (Cockcroft-Gault) 44.6 Glucose Level 162 mg/dL (70-99) H Calcium Level 8.3 mg/dL (8.5-10.1) L Troponin I Quantitative 0.218 ng/mL (0.000-0.055) Laboratory Tests 05/04/20 18:45 05/05/20 01:55 Laboratory Tests 05/04/20 18:45 05/05/20 01:55 ASSESSMENT/PLAN ASSESSMENT/PLAN 1. Acute hypoxic respiratory failure; CHF vs PNA. BNP WNL. COVID pending. On 7L NC 2. Leukocytosis, fevers 3. PUI 4. HERBER 5. Mild troponin elevation; highest 0.2. Most probably type II, demand ischemic in setting of above. CP free 6. Hypertension; low end 7. Hyperlipidemia 8. PSVT; on metoprolol for rate control. 9. H/o CVA; on ASA/Plavix Recommendations Echo when COVID ruled out Continue metoprolol as BP allows ASA therapy Will try dose of IV Lasix and noted response Supportive care RUSTY CONNELLY MD 05/05/20 1708: CARDIAC CONSULT ASSESSMENT/PLAN ASSESSMENT/PLAN Patient seen and evaluated Acute respiratory failure. Mild use of IV Lasix. COVID testing pending. Echo if COVID negative. Minimally elevated troponin. Peak of 0.2. Consistent with demand ischemia. On beta-blockers. Echo as above. Acute kidney injury. Cautious use of diuretics. Monitoring of lab. PSVT. Rate control with beta-blockers. Continuing monitor. History of CVA. Continue present treatments including antiplatelet medications. Thank you for allowing us to participate in the care of your patient. REBEKA GAINES APRN May 05, 2020 12:32 RUSTY CONNELLY MD May 05, 2020 17:08
[2020-05-05 12:48] LABS: CHOLESTEROL/HDL RATIO 3.3
[2020-05-05] MEDS ORDERED: cefTRIAXone IV Push 1 GM VIAL. IVP SCH (15:00)
[2020-05-05 15:22] VITALS: BP 135/63
--- NOTE | 2020-05-05 15:58 | NUR ---
SW following. Reviewed chat and spoke with RN and CM. Coordinated care with Dr. Mcginnis. Pt from home with his . Pt COVID negative. Pt on 7l 02 and does not have home 02. Pt on IV Rocephin. PT/OT to evaluate. SW to continue following.
[2020-05-05] MEDS ORDERED: FUROSEMIDE 40 MG/4 ML VIAL. IVP ONE (17:00)
[2020-05-05 19:38] VITALS: BP 119/57
[2020-05-05] MEDS: AZITHROMYCIN 250 MG TABLET. PO SCH (21:31)
[2020-05-05] MEDS: ATORVASTATIN CALCIUM 20 MG TABLET PO SCH (21:32)
[2020-05-05 23:22] VITALS: BP 142/66
[2020-05-05] MEDS: ACETAMINOPHEN 325 MG TABLET. PO PRN (23:49)
[2020-05-06 03:33] VITALS: BP 129/55
[2020-05-06 04:43] LABS: BASO % 0 % (0-3); EOS % 0 % (0-3); HEMATOCRIT 38.6 % (39.0-53.0); HEMOGLOBIN 12.9 g/dL (13.0-17.5); LYMPH # 1.3 x10^3/uL (1.0-4.8); LYMPH % 5 % (24-48); MEAN CORPUSCULAR HEMOGLOBIN 31 pg (25-35); MEAN CORPUSCULAR HGB CONC 34 g/dL (31-37); MEAN CORPUSCULAR VOLUME 91 fL (79-100); MONO # 2.2 x10^3/uL (0.0-1.1); MONO % 9 % (0-9); NEUT # 21.8 x10^3/uL (1.8-7.7); NEUT % 86 % (31-73); PLATELET COUNT 265 x10^3/uL (140-400); RED BLOOD COUNT 4.24 x10^6/uL (4.30-5.70); RED CELL DISTRIBUTION WIDTH 14.1 % (11.5-14.5); WHITE BLOOD COUNT 25.3 x10^3/uL (4.0-11.0)
[2020-05-06 04:57] LABS: CALCIUM 8.6 mg/dL (8.5-10.1); CREATININE 1.7 mg/dL (0.7-1.3); GFR 38.6; MAGNESIUM 1.9 mg/dL (1.8-2.4); PHOSPHORUS 3.4 mg/dL (2.6-4.7); POTASSIUM 3.9 mmol/L (3.5-5.1)
[2020-05-06 07:20] VITALS: BP 140/58
[2020-05-06] MEDS ORDERED: VANCOMYCIN PER PHARMACY MC PRN (10:00)
--- NOTE | 2020-05-06 10:58 | NUR ---
SW following. Reviewed chart and spoke with RN and CM. Coordinated care with Dr. Mcginnsi and therapy. PT to see pt today to assess level of care needs. Pt from home with . Pt on 7l 02. Pt on IV Vancomycin. SW to continue following.
[2020-05-06] MEDS: ALBUTEROL SULFATE 8GM INHALER. INH SCH ×4 (11:00→23:54)
[2020-05-06] MEDS ORDERED: VANCOMYCIN 2 GM in IV NORMAL SALINE 500ML BAG 500 ML IV ONE (11:00)
[2020-05-06 11:15] VITALS: BP 107/62
[2020-05-06] MEDS: ASPIRIN CHEWABLE 81 MG TABLET. PO SCH (11:30)
[2020-05-06] MEDS: PANTOPRAZOLE 40 MG TABLET.DR. PO SCH (11:30)
[2020-05-06] MEDS: CLOPIDOGREL BISULFATE 75 MG TABLET PO SCH (11:34)
[2020-05-06] MEDS: METOPROLOL SUCC 24HR ER 25 MG TAB.ER.24H. PO SCH (11:35)
[2020-05-06] MEDS: AZITHROMYCIN 250 MG TABLET. PO SCH ×2 (11:35→20:21)
[2020-05-06] MEDS: CEFEPIME HCL IV Push 1 GM VIAL. IVP SCH ×2 (11:37→20:21)
--- NOTE | 2020-05-06 11:45 | NUR ---
RN NOTE this RN received report from Norberto SMITH at 1120 patient swabbed for COVID and family updated with plan of care Addendum: 05/06/20 at 1639 by ACE BAR RN Report given back to Norberto SMITH at [id number]
--- NOTE | 2020-05-06 11:59 | PDOC ---
Infectious Disease Note Vital Sign Vital Signs Vital Signs Date Time Temp Pulse Resp B/P (MAP) Pulse Ox O2 Delivery O2 Flow Rate FiO2 05/06/20 07:20 97.9 95 16 140/58 (85) 91 Nasal Cannula 7.0 97.9 Labs Lab Laboratory Tests Test 05/06/20 04:25 White Blood Count 25.3 x10^3/uL (4.0-11.0) Red Blood Count 4.24 x10^6/uL (4.30-5.70) Hemoglobin 12.9 g/dL (13.0-17.5) Hematocrit 38.6 % (39.0-53.0) Mean Corpuscular Volume 91 fL (79-100) Mean Corpuscular Hemoglobin 31 pg (25-35) Mean Corpuscular Hemoglobin Concent 34 g/dL (31-37) Red Cell Distribution Width 14.1 % (11.5-14.5) Platelet Count 265 x10^3/uL (140-400) Neutrophils (%) (Auto) 86 % (31-73) Lymphocytes (%) (Auto) 5 % (24-48) Monocytes (%) (Auto) 9 % (0-9) Eosinophils (%) (Auto) 0 % (0-3) Basophils (%) (Auto) 0 % (0-3) Neutrophils # (Auto) 21.8 x10^3/uL (1.8-7.7) Lymphocytes # (Auto) 1.3 x10^3/uL (1.0-4.8) Monocytes # (Auto) 2.2 x10^3/uL (0.0-1.1) Eosinophils # (Auto) 0.0 x10^3/uL (0.0-0.7) Basophils # (Auto) 0.0 x10^3/uL (0.0-0.2) Sodium Level 140 mmol/L (136-145) Potassium Level 3.9 mmol/L (3.5-5.1) Chloride Level 106 mmol/L (98-107) Carbon Dioxide Level 26 mmol/L (21-32) Anion Gap 8 (6-14) Blood Urea Nitrogen 29 mg/dL (8-26) Creatinine 1.7 mg/dL (0.7-1.3) Estimated GFR (Cockcroft-Gault) 38.6 Glucose Level 135 mg/dL (70-99) Calcium Level 8.6 mg/dL (8.5-10.1) Phosphorus Level 3.4 mg/dL (2.6-4.7) Magnesium Level 1.9 mg/dL (1.8-2.4) Micro Microbiology 05/04/20 Blood Culture - Preliminary, Resulted NO GROWTH AFTER 1 DAY Objective Assessment Patient seen consult dictated Plan Plan of Care / LORENA POWELL MD May 06, 2020 11:59
--- NOTE | 2020-05-06 12:03 | RAD ---
Examination: CHEST AP ONLY History: Reason: pneumonia / Spl. Instructions: / History: Comparison: 05/04/2012 AP view of the chest. Findings: AP portable upright frontal view of the chest was obtained by portable technique. Opacification of the right lower lung field is present. Right pleural effusion is increased in the interval. Effusion within the major fissure or partially loculated right pleural effusion otherwise noted. Small left pleural effusion noted. No pneumothorax. Bony structures are remarkable. IMPRESSION: Right pleural effusion is increased in size in interval. Effusion involving the right major fissure or other loculation of right pleural effusion is suspected in the interval. Adjacent atelectasis or other consolidation suspected. No significant change in left pleural effusion. Electronically signed by: Bryan Esquivel MD (05/06/2020 12:00 PM) [id number]
--- NOTE | 2020-05-06 12:16 | CONS ---
DATE OF CONSULTATION: 05/06/2020 REQUESTING PHYSICIAN: Germain Mcginnis MD REASON FOR CONSULTATION: Fever, pneumonia, suspected COVID. HISTORY OF PRESENT ILLNESS: This is an 84-year-old gentleman who lives with at home, who came in with shortness of breath, cough and fever and chills. The patient was admitted, started initially on Rocephin, vancomycin and azithromycin, now has been changed to cefepime, vancomycin and azithromycin. Initial COVID done, which is negative. White count was normal on admission, now is 25,000. The patient is complaining of cough, had a fever up to 101.4 last night. The patient denies any nausea, vomiting, diarrhea. Denies any headache or visual symptoms. PAST MEDICAL HISTORY: Positive for hypertension, renal insufficiency, atrial fibrillation, history of GI bleed, history of stroke. SOCIAL HISTORY: Negative for smoking, alcohol or illicit drug use. ALLERGIES: LISTED ALLERGIC TO IODINATED CONTRAST MEDIA AND IRON. CURRENT MEDICATIONS: Reviewed. REVIEW OF SYSTEMS: As per HPI, all other systems reviewed are negative. PHYSICAL EXAMINATION: GENERAL: Alert and oriented gentleman, not in distress. VITAL SIGNS: Stable, afebrile right now. T-max is 101.4. HEENT: NAD. NECK: Supple, no JVP, no lymphadenopathy. LUNGS: Clear. HEART: S1, S2 regular. ABDOMEN: Benign. EXTREMITIES: No edema, cyanosis. SKIN: Unremarkable. NEUROLOGIC: The patient is alert, awake and appropriate. No focal neurologic deficit. LABORATORY DATA: White count on admission was 10.7, now is 25.3. BUN and creatinine is 29 and 1.7. Urinalysis unremarkable. COVID-19 is negative, although retesting specimen has been obtained. Blood culture is negative. IMAGING STUDIES: Chest x-ray showed pulmonary vascular congestion/interstitial infiltrate. IMPRESSION: 1. Suspected COVID-19. 2. Fever. 3. Pulmonary infiltrate. 4. Renal insufficiency. 5. Atrial fibrillation. 6. Hypoxemia. RECOMMEND: Continue cefepime and azithromycin. We will discontinue vancomycin with account of the renal insufficiency. Supportive care. Repeat COVID is pending. We will wait and see what that comes out and continue to follow. Thank you very much, Dr. Mcginnis, for giving me the opportunity to participate in this patient's care. LORENA POWELL MD DR: HERO/genaro JOB#: [id number] / [id number]
[2020-05-06] MEDS: LACTOBACILLUS RHAMNOSUS GG 1 CAPSULE. PO SCH ×2 (13:35→20:21)
--- NOTE | 2020-05-06 13:44 | PDOC ---
[facility] PROGRESS NOTE Chief Complaint Chief Complaint Acute respiratory distress secondary to pneumonia Troponinemia CKD unknown stage Atrial fibrillationstable Hypertension Appreciate cardiology recommendations Appreciate ID recommendations Lasix 40 mg x 1 Pending echo We will switch to cefepime and azithromycin per ID Pending blood cultures Continue home meds Avoid nephrotoxic medications History of Present Illness History of Present Illness 84-year-old male with past medical history of hypertension, A. fib, CVA, who presents to the ED with complaints of shortness of breath and fevers of 103. He was claimed to be saturating at 86% on 6 L nasal cannula with EMS. Patient also states that he had some cough and associated chest pain. Denies any nausea vomiting, abdominal pain, diarrhea. 05/06/2020 Patient seen and examined bedside today. Patient had a fever overnight of 101.4. No acute events overnight. Patient is tolerating diet. Repeat chest x- ray shows worsening pleural effusion. Patient is saturating well on 2 L nasal cannula. Vitals/I&O Vitals/I&O: Vital Signs Date Time Temp Pulse Resp B/P (MAP) Pulse Ox O2 Delivery O2 Flow Rate FiO2 05/06/20 11:15 98.1 52 16 107/62 (77) 99 Nasal Cannula 9.0 98.1 I & O 05/05/20 05/05/20 05/06/20 15:00 23:00 07:00 Intake Total 200 ml 150 ml Output Total 725 ml 225 ml Balance -525 ml -75 ml Physical Exam Physical Exam: GENERAL: Patient is alert and awake. NAD HEENT: Moist mucous membranes. No scleral icterus or obvious cervical lymphadenopathy CV: RRR. No murmurs rubs or gallops. Unable to appreciate S3 or S4 PULM: Bilaterally minimal wheezing and crackles. ABD: Soft and nondistended on visualization and palpation. Normoactive bowel sounds heard. EXTREMITIES: No pedal edema seen. No warmth or tenderness upon touch. NEURO: Full ROM in all extremities. normal strength on upper extremities. General: Alert, Oriented X3, Cooperative, No acute distress Heart: Regular rate Abdomen: Soft Extremities: Other (trace bilateral LE edema) Skin: No significant lesion Labs Labs: Laboratory Tests Test 05/06/20 04:25 White Blood Count 25.3 x10^3/uL (4.0-11.0) Red Blood Count 4.24 x10^6/uL (4.30-5.70) Hemoglobin 12.9 g/dL (13.0-17.5) Hematocrit 38.6 % (39.0-53.0) Mean Corpuscular Volume 91 fL (79-100) Mean Corpuscular Hemoglobin 31 pg (25-35) Mean Corpuscular Hemoglobin Concent 34 g/dL (31-37) Red Cell Distribution Width 14.1 % (11.5-14.5) Platelet Count 265 x10^3/uL (140-400) Neutrophils (%) (Auto) 86 % (31-73) Lymphocytes (%) (Auto) 5 % (24-48) Monocytes (%) (Auto) 9 % (0-9) Eosinophils (%) (Auto) 0 % (0-3) Basophils (%) (Auto) 0 % (0-3) Neutrophils # (Auto) 21.8 x10^3/uL (1.8-7.7) Lymphocytes # (Auto) 1.3 x10^3/uL (1.0-4.8) Monocytes # (Auto) 2.2 x10^3/uL (0.0-1.1) Eosinophils # (Auto) 0.0 x10^3/uL (0.0-0.7) Basophils # (Auto) 0.0 x10^3/uL (0.0-0.2) Sodium Level 140 mmol/L (136-145) Potassium Level 3.9 mmol/L (3.5-5.1) Chloride Level 106 mmol/L (98-107) Carbon Dioxide Level 26 mmol/L (21-32) Anion Gap 8 (6-14) Blood Urea Nitrogen 29 mg/dL (8-26) Creatinine 1.7 mg/dL (0.7-1.3) Estimated GFR (Cockcroft-Gault) 38.6 Glucose Level 135 mg/dL (70-99) Calcium Level 8.6 mg/dL (8.5-10.1) Phosphorus Level 3.4 mg/dL (2.6-4.7) Magnesium Level 1.9 mg/dL (1.8-2.4) Review of Systems Review of Systems: CONSTITUIONAL: Denies weight loss, fever and chills. HEENT: Denies changes in vision and hearing. RESPIRATORY: Denies SOB and cough. CV: Denies palpitations and CP. GI: Denies abdominal pain, nausea, vomiting and diarrhea. : Denies dysuria and urinary frequency. MSK: Denies myalgia and joint pain. SKIN: Denies rash and pruritus. NEUROLOGICAL: Denies headache and syncope. PSYCHIATRIC: Denies recent changes in mood. Denies anxiety and depression. Assessment and Plan Assessmemt and Plan Problems Medical Problems: (1) Fever Status: Acute (2) Hypoxia Status: Acute (3) Person under investigation for COVID-19 Status: Acute Comment Review of Relevant I have reviewed the following items timoteo (where applicable) has been applied. Medications: Current Medications Medications (Trade) Dose Ordered Sig/Zane Route PRN Reason Start Time Stop Time Status Last Admin Dose Admin Atorvastatin Calcium (Lipitor) 20 mg QHS PO 05/05/20 21:00 05/05/20 21:32 Ceftriaxone Sodium (Rocephin) 1 gm Q24H IVP 05/05/20 15:00 05/06/20 09:58 DC 05/05/20 15:32 Azithromycin (Zithromax) 250 mg BID PO 05/05/20 21:00 05/05/20 21:31 Furosemide (Lasix) 40 mg 1X ONCE IVP 05/05/20 17:00 05/05/20 17:07 DC 05/05/20 17:35 Acetaminophen (Tylenol) 650 mg PRN Q4HRS PRN PO fever and pain 05/05/20 23:45 05/05/20 23:49 Justicifation of Admission Dx: Justifications for Admission: Justification of Admission Dx: Yes Aspiration Pneumonia: Hypoxemia TOAN KRISHNAMURTHY MD May 06, 2020 13:44
[2020-05-06] MEDS ORDERED: FUROSEMIDE 40 MG/4 ML VIAL. IVP ONE (13:45)
[2020-05-06 15:00] VITALS: BP 112/64
[2020-05-06 19:00] VITALS: BP 116/65
[2020-05-06] MEDS: ATORVASTATIN CALCIUM 20 MG TABLET PO SCH (20:21)
[2020-05-06 23:00] VITALS: BP 129/61
[2020-05-07 03:00] VITALS: BP 132/71
[2020-05-07] MEDS: ALBUTEROL SULFATE 8GM INHALER. INH SCH ×6 (03:10→21:59)
[2020-05-07 07:15] VITALS: BP 136/60
[2020-05-07] MEDS: CLOPIDOGREL BISULFATE 75 MG TABLET PO SCH (08:42)
[2020-05-07] MEDS: PANTOPRAZOLE 40 MG TABLET.DR. PO SCH (08:42)
[2020-05-07] MEDS: AZITHROMYCIN 250 MG TABLET. PO SCH ×2 (08:42→21:28)
[2020-05-07] MEDS: LACTOBACILLUS RHAMNOSUS GG 1 CAPSULE. PO SCH ×2 (08:42→21:28)
[2020-05-07] MEDS: ASPIRIN CHEWABLE 81 MG TABLET. PO SCH (08:42)
[2020-05-07] MEDS: CEFEPIME HCL IV Push 1 GM VIAL. IVP SCH ×2 (08:43→21:29)
[2020-05-07] MEDS: METOPROLOL SUCC 24HR ER 25 MG TAB.ER.24H. PO SCH (08:43)
[2020-05-07 08:58] LABS: BASO % 0 % (0-3); EOS % 0 % (0-3); HEMATOCRIT 40.4 % (39.0-53.0); HEMOGLOBIN 13.3 g/dL (13.0-17.5); LYMPH # 1.1 x10^3/uL (1.0-4.8); LYMPH % 4 % (24-48); MEAN CORPUSCULAR HEMOGLOBIN 30 pg (25-35); MEAN CORPUSCULAR HGB CONC 33 g/dL (31-37); MEAN CORPUSCULAR VOLUME 92 fL (79-100); MONO # 2.3 x10^3/uL (0.0-1.1); MONO % 8 % (0-9); NEUT % 89 % (31-73); PLATELET COUNT 289 x10^3/uL (140-400); RED BLOOD COUNT 4.41 x10^6/uL (4.30-5.70); WHITE BLOOD COUNT 30.5 x10^3/uL (4.0-11.0)
[2020-05-07 09:33] LABS: % BANDS 6 % (0-9); % LYMPHS 3 % (24-48); % MONOS 5 % (0-10); % SEGS 86 % (35-66); PLT ESTIMATE ADEQUATE (ADEQUATE)
[2020-05-07 11:13] VITALS: BP 119/58
--- NOTE | 2020-05-07 11:25 | PDOC ---
Infectious Disease Note Subjective Subjective Patient is feeling better. Continues to have cough. ROS ROS No nausea vomiting diarrhea chest pain shortness of breath Though still on oxygen Vital Sign Vital Signs Vital Signs Date Time Temp Pulse Resp B/P (MAP) Pulse Ox O2 Delivery O2 Flow Rate FiO2 05/07/20 11:13 98.6 92 16 119/58 (78) 93 Room Air 98.6 05/07/20 07:50 9.0 Physical Exam PHYSICAL EXAM GENERAL: Alert and oriented gentleman, not in distress. VITAL SIGNS: Stable, HEENT: NAD. NECK: Supple, no JVP, no lymphadenopathy. LUNGS: Clear. HEART: S1, S2 regular. ABDOMEN: Benign. EXTREMITIES: No edema, cyanosis. SKIN: Unremarkable. NEUROLOGIC: The patient is alert, awake and appropriate. No focal neurologic deficit. . Labs Lab Laboratory Tests Test 05/07/20 08:20 White Blood Count 30.5 x10^3/uL (4.0-11.0) Red Blood Count 4.41 x10^6/uL (4.30-5.70) Hemoglobin 13.3 g/dL (13.0-17.5) Hematocrit 40.4 % (39.0-53.0) Mean Corpuscular Volume 92 fL (79-100) Mean Corpuscular Hemoglobin 30 pg (25-35) Mean Corpuscular Hemoglobin Concent 33 g/dL (31-37) Red Cell Distribution Width 14.0 % (11.5-14.5) Platelet Count 289 x10^3/uL (140-400) Neutrophils (%) (Auto) 89 % (31-73) Lymphocytes (%) (Auto) 4 % (24-48) Monocytes (%) (Auto) 8 % (0-9) Eosinophils (%) (Auto) 0 % (0-3) Basophils (%) (Auto) 0 % (0-3) Neutrophils # (Auto) 27.0 x10^3/uL (1.8-7.7) Lymphocytes # (Auto) 1.1 x10^3/uL (1.0-4.8) Monocytes # (Auto) 2.3 x10^3/uL (0.0-1.1) Eosinophils # (Auto) 0.0 x10^3/uL (0.0-0.7) Basophils # (Auto) 0.0 x10^3/uL (0.0-0.2) Segmented Neutrophils % 86 % (35-66) Band Neutrophils % 6 % (0-9) Lymphocytes % 3 % (24-48) Monocytes % 5 % (0-10) Platelet Estimate Adequate (ADEQUATE) Micro Microbiology 05/04/20 Blood Culture - Preliminary, Resulted NO GROWTH AFTER 1 DAY Objective Assessment IMPRESSION: 1. Suspected COVID-19.,, 1 COVID 19 is negative second 1 is pending 2. Fever. 3. Pulmonary infiltrate. 4. Renal insufficiency. 5. Atrial fibrillation. 6. Hypoxemia. Plan Plan of Care Continue antibiotics. Continue supportive care. We will follow the cultures and COVID-19 LORENA POWELL MD May 07, 2020 11:25
[2020-05-07 15:00] VITALS: BP 132/56
--- NOTE | 2020-05-07 16:47 | PDOC ---
[facility] PROGRESS NOTE Chief Complaint Chief Complaint Acute respiratory distress secondary to pneumonia Troponinemia CKD unknown stage Atrial fibrillationstable Hypertension PLAN We will repeat COVID testing Appreciate cardiology recommendations Appreciate ID recommendations Lasix 40 mg x 1 Pending echo once COVID is ruled out We will switch to cefepime and azithromycin per ID Pending blood cultures Continue home meds Avoid nephrotoxic medications Heparin for DVT prophylaxis Cardiac diet DNR Discussed with RN and SW Dispo History of Present Illness History of Present Illness 84-year-old male with past medical history of hypertension, A. fib, CVA, who presents to the ED with complaints of shortness of breath and fevers of 103. He was claimed to be saturating at 86% on 6 L nasal cannula with EMS. Patient also states that he had some cough and associated chest pain. Denies any nausea vomiting, abdominal pain, diarrhea. 05/07/2020 No acute events overnight. Patient seen and examined bedside today. Patient is tolerating diet and saturating 97% on 9 L nasal cannula. 05/06/2020 Patient seen and examined bedside today. Patient had a fever overnight of 101.4. No acute events overnight. Patient is tolerating diet. Repeat chest x- ray shows worsening pleural effusion. Patient is saturating well 9 L. Vitals/I&O Vitals/I&O: Vital Signs Date Time Temp Pulse Resp B/P (MAP) Pulse Ox O2 Delivery O2 Flow Rate FiO2 05/07/20 15:00 98.3 103 18 132/56 (81) 94 Nasal Cannula 9.0 98.3 I & O 05/06/20 05/06/20 05/07/20 15:00 23:00 07:00 Intake Total 100 ml 0 ml Output Total 200 ml 400 ml Balance 100 ml -200 ml -400 ml Physical Exam Physical Exam: GENERAL: Alert and oriented gentleman, not in distress. VITAL SIGNS: Stable, HEENT: NAD. NECK: Supple, no JVP, no lymphadenopathy. LUNGS: Clear. HEART: S1, S2 regular. ABDOMEN: Benign. EXTREMITIES: No edema, cyanosis. SKIN: Unremarkable. NEUROLOGIC: The patient is alert, awake and appropriate. No focal neurologic deficit. . General: Alert, Oriented X3, Cooperative, No acute distress Heart: Regular rate Abdomen: Soft Extremities: Other (trace bilateral LE edema) Skin: No significant lesion Labs Labs: Laboratory Tests Test 05/07/20 08:20 White Blood Count 30.5 x10^3/uL (4.0-11.0) Red Blood Count 4.41 x10^6/uL (4.30-5.70) Hemoglobin 13.3 g/dL (13.0-17.5) Hematocrit 40.4 % (39.0-53.0) Mean Corpuscular Volume 92 fL (79-100) Mean Corpuscular Hemoglobin 30 pg (25-35) Mean Corpuscular Hemoglobin Concent 33 g/dL (31-37) Red Cell Distribution Width 14.0 % (11.5-14.5) Platelet Count 289 x10^3/uL (140-400) Neutrophils (%) (Auto) 89 % (31-73) Lymphocytes (%) (Auto) 4 % (24-48) Monocytes (%) (Auto) 8 % (0-9) Eosinophils (%) (Auto) 0 % (0-3) Basophils (%) (Auto) 0 % (0-3) Neutrophils # (Auto) 27.0 x10^3/uL (1.8-7.7) Lymphocytes # (Auto) 1.1 x10^3/uL (1.0-4.8) Monocytes # (Auto) 2.3 x10^3/uL (0.0-1.1) Eosinophils # (Auto) 0.0 x10^3/uL (0.0-0.7) Basophils # (Auto) 0.0 x10^3/uL (0.0-0.2) Segmented Neutrophils % 86 % (35-66) Band Neutrophils % 6 % (0-9) Lymphocytes % 3 % (24-48) Monocytes % 5 % (0-10) Platelet Estimate Adequate (ADEQUATE) Assessment and Plan Assessmemt and Plan Problems Medical Problems: (1) Fever Status: Acute (2) Hypoxia Status: Acute (3) Person under investigation for COVID-19 Status: Acute Comment Review of Relevant I have reviewed the following items timoteo (where applicable) has been applied. Justicifation of Admission Dx: Justifications for Admission: Justification of Admission Dx: Yes Aspiration Pneumonia: Hypoxemia TOAN KRISHNAMURTHY MD May 07, 2020 16:47
--- NOTE | 2020-05-07 17:31 | NUR ---
SW following for discharge planning. Reviewed chart and spoke with RN. Pt is being tested again for COVID. Pt 02 increased to 9l. Pt is from home with his and PT evaluation says home when stable. SW to continue following.
[2020-05-07] MEDS: POLYVINYL ALCOHOL 1.4% OPHTH SOLUTION 15ML BOTTLE. OU PRN ×2 (17:40→21:59)
[2020-05-07 19:15] VITALS: BP 135/70
[2020-05-07] MEDS: ACETAMINOPHEN 325 MG TABLET. PO PRN (21:28)
[2020-05-07] MEDS: METOPROLOL TART IMMED RELEASE 50 MG TABLET. PO SCH (21:30)
[2020-05-07] MEDS: ATORVASTATIN CALCIUM 20 MG TABLET PO SCH (21:30)
[2020-05-07] MEDS: HEPARIN for SUB-Q USE 5,000 UNIT/ML VIAL. SQ SCH (21:31)
[2020-05-07 23:21] VITALS: BP 102/60
[2020-05-08 03:15] VITALS: BP 152/66
[2020-05-08 04:39] LABS: BASO % 0 % (0-3); EOS # 0.1 x10^3/uL (0.0-0.7); EOS % 0 % (0-3); HEMATOCRIT 38.6 % (39.0-53.0); HEMOGLOBIN 12.9 g/dL (13.0-17.5); LYMPH # 1.3 x10^3/uL (1.0-4.8); LYMPH % 5 % (24-48); MEAN CORPUSCULAR HEMOGLOBIN 30 pg (25-35); MEAN CORPUSCULAR HGB CONC 34 g/dL (31-37); MEAN CORPUSCULAR VOLUME 91 fL (79-100); MONO # 2.5 x10^3/uL (0.0-1.1); MONO % 10 % (0-9); NEUT # 21.9 x10^3/uL (1.8-7.7); NEUT % 85 % (31-73); PLATELET COUNT 285 x10^3/uL (140-400); RED BLOOD COUNT 4.26 x10^6/uL (4.30-5.70); RED CELL DISTRIBUTION WIDTH 14.5 % (11.5-14.5); WHITE BLOOD COUNT 25.8 x10^3/uL (4.0-11.0)
[2020-05-08] MEDS: ALBUTEROL SULFATE 8GM INHALER. INH SCH ×6 (05:02→22:54)
[2020-05-08 05:08] LABS: CREATININE 1.7 mg/dL (0.7-1.3); GFR 38.6; PHOSPHORUS 2.7 mg/dL (2.6-4.7)
[2020-05-08] MEDS: HEPARIN for SUB-Q USE 5,000 UNIT/ML VIAL. SQ SCH ×3 (05:55→21:27)
[2020-05-08 07:00] VITALS: BP 121/66
[2020-05-08] MEDS: CEFEPIME HCL IV Push 1 GM VIAL. IVP SCH ×2 (08:29→21:23)
[2020-05-08] MEDS: ACETAMINOPHEN 325 MG TABLET. PO PRN (08:30)
[2020-05-08] MEDS: LACTOBACILLUS RHAMNOSUS GG 1 CAPSULE. PO SCH ×2 (08:30→21:23)
[2020-05-08] MEDS: CLOPIDOGREL BISULFATE 75 MG TABLET PO SCH (08:30)
[2020-05-08] MEDS: ASPIRIN CHEWABLE 81 MG TABLET. PO SCH (08:30)
[2020-05-08] MEDS: PANTOPRAZOLE 40 MG TABLET.DR. PO SCH (08:30)
[2020-05-08] MEDS: AZITHROMYCIN 250 MG TABLET. PO SCH (08:30)
[2020-05-08] MEDS: METOPROLOL TART IMMED RELEASE 50 MG TABLET. PO SCH ×2 (08:32→21:23)
--- NOTE | 2020-05-08 10:34 | PDOC ---
Infectious Disease Note Subjective Subjective Patient is feeling better. Continues to have cough. ROS ROS No nausea vomiting diarrhea chest pain shortness of breath Vital Sign Vital Signs Vital Signs Date Time Temp Pulse Resp B/P (MAP) Pulse Ox O2 Delivery O2 Flow Rate FiO2 05/08/20 08:32 101 139/65 05/08/20 07:00 100.1 14 94 Nasal Cannula 9.0 100.1 Physical Exam PHYSICAL EXAM GENERAL: Alert and oriented gentleman, not in distress. VITAL SIGNS: Stable, HEENT: NAD. NECK: Supple, no JVP, no lymphadenopathy. LUNGS: Clear. HEART: S1, S2 regular. ABDOMEN: Benign. EXTREMITIES: No edema, cyanosis. SKIN: Unremarkable. NEUROLOGIC: The patient is alert, awake and appropriate. No focal neurologic deficit. . Labs Lab Laboratory Tests Test 05/08/20 04:20 White Blood Count 25.8 x10^3/uL (4.0-11.0) Red Blood Count 4.26 x10^6/uL (4.30-5.70) Hemoglobin 12.9 g/dL (13.0-17.5) Hematocrit 38.6 % (39.0-53.0) Mean Corpuscular Volume 91 fL (79-100) Mean Corpuscular Hemoglobin 30 pg (25-35) Mean Corpuscular Hemoglobin Concent 34 g/dL (31-37) Red Cell Distribution Width 14.5 % (11.5-14.5) Platelet Count 285 x10^3/uL (140-400) Neutrophils (%) (Auto) 85 % (31-73) Lymphocytes (%) (Auto) 5 % (24-48) Monocytes (%) (Auto) 10 % (0-9) Eosinophils (%) (Auto) 0 % (0-3) Basophils (%) (Auto) 0 % (0-3) Neutrophils # (Auto) 21.9 x10^3/uL (1.8-7.7) Lymphocytes # (Auto) 1.3 x10^3/uL (1.0-4.8) Monocytes # (Auto) 2.5 x10^3/uL (0.0-1.1) Eosinophils # (Auto) 0.1 x10^3/uL (0.0-0.7) Basophils # (Auto) 0.0 x10^3/uL (0.0-0.2) Sodium Level 135 mmol/L (136-145) Potassium Level 4.0 mmol/L (3.5-5.1) Chloride Level 101 mmol/L (98-107) Carbon Dioxide Level 27 mmol/L (21-32) Anion Gap 7 (6-14) Blood Urea Nitrogen 36 mg/dL (8-26) Creatinine 1.7 mg/dL (0.7-1.3) Estimated GFR (Cockcroft-Gault) 38.6 Glucose Level 127 mg/dL (70-99) Calcium Level 9.0 mg/dL (8.5-10.1) Phosphorus Level 2.7 mg/dL (2.6-4.7) Magnesium Level 2.0 mg/dL (1.8-2.4) Micro Microbiology 05/04/20 Blood Culture - Preliminary, Resulted NO GROWTH AFTER 1 DAY Objective Assessment IMPRESSION: 1. Suspected COVID-19.,, 1 COVID 19 is negative second 1 is pending 2. Fever. 3. Pulmonary infiltrate. 4. Renal insufficiency. 5. Atrial fibrillation. 6. Hypoxemia. Plan Plan of Care COVID-19 x2- All cultures are negative Continues to be running fever Discontinue azithromycin Continue cefepime and add Zyvox LORENA POWELL MD May 08, 2020 10:34
[2020-05-08 11:15] VITALS: BP 115/59
[2020-05-08] MEDS: LINEZOLID 600 MG TABLET PO SCH ×2 (13:01→21:23)
--- NOTE | 2020-05-08 13:30 | PDOC ---
[facility] PROGRESS NOTE Chief Complaint Chief Complaint Acute respiratory distress secondary to pneumonia Troponinemia CKD unknown stage Atrial fibrillationstable Hypertension PLAN We will repeat COVID testing Appreciate cardiology recommendations Appreciate ID recommendations Pending echo Continue with cefepime and Zyvox per ID Blood cultures are negative to date despite persistent fevers Continue home meds Avoid nephrotoxic medications Heparin for DVT prophylaxis Cardiac diet DNR Discussed with RN and SW Dispo pending echo and further cardiac recommendations History of Present Illness History of Present Illness 84-year-old male with past medical history of hypertension, A. fib, CVA, who presents to the ED with complaints of shortness of breath and fevers of 103. He was claimed to be saturating at 86% on 6 L nasal cannula with EMS. Patient also states that he had some cough and associated chest pain. Denies any nausea vomiting, abdominal pain, diarrhea. 05/08/2020 No acute events overnight. Patient did have a fever 100.1, but no major overnight events. Patient is sitting up in bed and compensating well. COVID tested is negative x2 05/07/2020 No acute events overnight. Patient seen and examined bedside today. Patient is tolerating diet and saturating 97% on 9 L nasal cannula. 05/06/2020 Patient seen and examined bedside today. Patient had a fever overnight of 101.4. No acute events overnight. Patient is tolerating diet. Repeat chest x- ray shows worsening pleural effusion. Patient is saturating well 9 L. Vitals/I&O Vitals/I&O: Vital Signs Date Time Temp Pulse Resp B/P (MAP) Pulse Ox O2 Delivery O2 Flow Rate FiO2 05/08/20 11:15 97.1 81 16 115/59 (77) 94 Nasal Cannula 9.0 97.1 I & O 05/07/20 05/07/20 05/08/20 15:00 23:00 07:00 Intake Total 358 ml 240 ml Output Total 100 ml 150 ml Balance 258 ml 240 ml -150 ml Physical Exam Physical Exam: GENERAL: Alert and oriented gentleman, not in distress. VITAL SIGNS: Stable, HEENT: NAD. NECK: Supple, no JVP, no lymphadenopathy. LUNGS: Clear. HEART: S1, S2 regular. ABDOMEN: Benign. EXTREMITIES: No edema, cyanosis. SKIN: Unremarkable. NEUROLOGIC: The patient is alert, awake and appropriate. No focal neurologic deficit. . General: Alert, Oriented X3, Cooperative, No acute distress Heart: Regular rate Abdomen: Soft Extremities: Other (trace bilateral LE edema) Skin: No significant lesion Labs Labs: Laboratory Tests Test 05/08/20 04:20 White Blood Count 25.8 x10^3/uL (4.0-11.0) Red Blood Count 4.26 x10^6/uL (4.30-5.70) Hemoglobin 12.9 g/dL (13.0-17.5) Hematocrit 38.6 % (39.0-53.0) Mean Corpuscular Volume 91 fL (79-100) Mean Corpuscular Hemoglobin 30 pg (25-35) Mean Corpuscular Hemoglobin Concent 34 g/dL (31-37) Red Cell Distribution Width 14.5 % (11.5-14.5) Platelet Count 285 x10^3/uL (140-400) Neutrophils (%) (Auto) 85 % (31-73) Lymphocytes (%) (Auto) 5 % (24-48) Monocytes (%) (Auto) 10 % (0-9) Eosinophils (%) (Auto) 0 % (0-3) Basophils (%) (Auto) 0 % (0-3) Neutrophils # (Auto) 21.9 x10^3/uL (1.8-7.7) Lymphocytes # (Auto) 1.3 x10^3/uL (1.0-4.8) Monocytes # (Auto) 2.5 x10^3/uL (0.0-1.1) Eosinophils # (Auto) 0.1 x10^3/uL (0.0-0.7) Basophils # (Auto) 0.0 x10^3/uL (0.0-0.2) Sodium Level 135 mmol/L (136-145) Potassium Level 4.0 mmol/L (3.5-5.1) Chloride Level 101 mmol/L (98-107) Carbon Dioxide Level 27 mmol/L (21-32) Anion Gap 7 (6-14) Blood Urea Nitrogen 36 mg/dL (8-26) Creatinine 1.7 mg/dL (0.7-1.3) Estimated GFR (Cockcroft-Gault) 38.6 Glucose Level 127 mg/dL (70-99) Calcium Level 9.0 mg/dL (8.5-10.1) Phosphorus Level 2.7 mg/dL (2.6-4.7) Magnesium Level 2.0 mg/dL (1.8-2.4) Review of Systems Review of Systems: CONSTITUIONAL: Denies weight loss, fever and chills. HEENT: Denies changes in vision and hearing. RESPIRATORY: Denies SOB and cough. CV: Denies palpitations and CP. GI: Denies abdominal pain, nausea, vomiting and diarrhea. : Denies dysuria and urinary frequency. MSK: Denies myalgia and joint pain. SKIN: Denies rash and pruritus. NEUROLOGICAL: Denies headache and syncope. PSYCHIATRIC: Denies recent changes in mood. Denies anxiety and depression. Assessment and Plan Assessmemt and Plan Problems Medical Problems: (1) Fever Status: Acute (2) Hypoxia Status: Acute (3) Person under investigation for COVID-19 Status: Acute Comment Review of Relevant I have reviewed the following items timoteo (where applicable) has been applied. Medications: Current Medications Medications (Trade) Dose Ordered Sig/Zane Route PRN Reason Start Time Stop Time Status Last Admin Dose Admin Metoprolol Tartrate (Lopressor) 50 mg BID PO 05/07/20 21:00 05/08/20 08:32 Heparin Sodium (Porcine) (Heparin Sodium) 5,000 unit Q8HRS SQ 05/07/20 22:00 05/08/20 13:02 Linezolid (Zyvox) 600 mg BID PO 05/08/20 11:00 05/08/20 13:01 Justicifation of Admission Dx: Justifications for Admission: Justification of Admission Dx: Yes Aspiration Pneumonia: Hypoxemia TOAN KRISHNAMURTHY MD May 08, 2020 13:30
[2020-05-08 15:00] VITALS: BP 132/55
--- NOTE | 2020-05-08 16:55 | EKG ---
[facility] [address] [place] [address] Test Date: 2020-05-08 Test Time: 16:51:57 Pat Name: RUDY POLK Department: Room: [facility] Gender: M Outreach Team Member: : 1935 Requested By: TOAN KRISHNAMURTHY Order Number: [id number] Reading MD: Measurements Intervals [place] Rate: 98 P: 35 CA: 120 QRS: -25 QRSD: 98 T: 39 QT: 334 QTc: 428 Interpretive Statements SINUS RHYTHM LEFTWARD AXIS OTHERWISE NORMAL ECG RI6.02 Compared to ECG 05/05/2020 02:55:28 No significant changes
--- NOTE | 2020-05-08 16:57 | NUR ---
PATIENT COVID NEGATIVE - PATIENT WILL BE TRANSFERRED TO [facility].
--- NOTE | 2020-05-08 17:32 | NUR ---
SW following. Reviewed chart and spoke with RN. Pt to have ECHO and EKG. SW to continue following.
[2020-05-08 19:00] VITALS: BP 138/60
[2020-05-08] MEDS: ATORVASTATIN CALCIUM 20 MG TABLET PO SCH (21:23)
[2020-05-08 23:24] VITALS: BP 113/59
[2020-05-09] MEDS: ALBUTEROL SULFATE 8GM INHALER. INH SCH ×6 (03:00→23:00)
[2020-05-09 03:22] VITALS: BP 115/59
[2020-05-09] MEDS: HEPARIN for SUB-Q USE 5,000 UNIT/ML VIAL. SQ SCH ×3 (06:28→22:20)
[2020-05-09 07:00] VITALS: BP 133/63
[2020-05-09] MEDS: CEFEPIME HCL IV Push 1 GM VIAL. IVP SCH ×2 (08:53→20:17)
[2020-05-09] MEDS: ASPIRIN CHEWABLE 81 MG TABLET. PO SCH (08:53)
[2020-05-09] MEDS: LINEZOLID 600 MG TABLET PO SCH ×2 (08:53→20:20)
[2020-05-09] MEDS: METOPROLOL TART IMMED RELEASE 50 MG TABLET. PO SCH ×2 (08:54→20:22)
[2020-05-09] MEDS: CLOPIDOGREL BISULFATE 75 MG TABLET PO SCH (08:54)
[2020-05-09] MEDS: LACTOBACILLUS RHAMNOSUS GG 1 CAPSULE. PO SCH ×2 (08:54→20:20)
[2020-05-09] MEDS: PANTOPRAZOLE 40 MG TABLET.DR. PO SCH (08:54)
[2020-05-09 10:08] LABS: BASO % 0 % (0-3); EOS # 0.2 x10^3/uL (0.0-0.7); EOS % 1 % (0-3); HEMATOCRIT 36.4 % (39.0-53.0); HEMOGLOBIN 12.3 g/dL (13.0-17.5); LYMPH # 1.2 x10^3/uL (1.0-4.8); LYMPH % 5 % (24-48); MEAN CORPUSCULAR HEMOGLOBIN 31 pg (25-35); MEAN CORPUSCULAR HGB CONC 34 g/dL (31-37); MEAN CORPUSCULAR VOLUME 91 fL (79-100); MONO # 1.9 x10^3/uL (0.0-1.1); MONO % 8 % (0-9); NEUT # 19.5 x10^3/uL (1.8-7.7); NEUT % 86 % (31-73); PLATELET COUNT 314 x10^3/uL (140-400); RED BLOOD COUNT 4.02 x10^6/uL (4.30-5.70); RED CELL DISTRIBUTION WIDTH 14.2 % (11.5-14.5); WHITE BLOOD COUNT 22.7 x10^3/uL (4.0-11.0)
[2020-05-09 10:49] LABS: CALCIUM 8.8 mg/dL (8.5-10.1); CREATININE 1.7 mg/dL (0.7-1.3); GFR 38.6; POTASSIUM 3.6 mmol/L (3.5-5.1)
--- NOTE | 2020-05-09 11:24 | PDOC ---
[facility] PROGRESS NOTE Chief Complaint Chief Complaint Acute respiratory distress secondary to pneumonia Troponinemia possibly related to demand ischemia CKD unknown stage Atrial fibrillationstable Hypertension COVID ruled out PLAN Appreciate cardiology recommendations Appreciate ID recommendations Pending echo possibly Monday Continue with cefepime and Zyvox per ID Blood cultures are negative to date despite persistent fevers Continue home meds Avoid nephrotoxic medications Heparin for DVT prophylaxis Cardiac diet DNR Discussed with RN and SW Dispo pending echo and further cardiac recommendations History of Present Illness History of Present Illness 84-year-old male with past medical history of hypertension, A. fib, CVA, who presents to the ED with complaints of shortness of breath and fevers of 103. He was claimed to be saturating at 86% on 6 L nasal cannula with EMS. Patient also states that he had some cough and associated chest pain. Denies any nausea vomiting, abdominal pain, diarrhea. 05/09/2020 No acute events overnight. Patient seen and examined bedside today. Patient has been afebrile for 24 hours. Patient is tolerating diet and did have a bowel movement 2 days ago. 05/08/2020 No acute events overnight. Patient did have a fever 100.1, but no major overnight events. Patient is sitting up in bed and compensating well. COVID tested is negative x2 05/07/2020 No acute events overnight. Patient seen and examined bedside today. Patient is tolerating diet and saturating 97% on 9 L nasal cannula. 05/06/2020 Patient seen and examined bedside today. Patient had a fever overnight of 101.4. No acute events overnight. Patient is tolerating diet. Repeat chest x- ray shows worsening pleural effusion. Patient is saturating well 9 L. Vitals/I&O Vitals/I&O: Vital Signs Date Time Temp Pulse Resp B/P (MAP) Pulse Ox O2 Delivery O2 Flow Rate FiO2 05/09/20 08:54 90 133/63 05/09/20 08:00 Nasal Cannula 7.0 05/09/20 07:00 99.1 22 91 99.1 I & O 0 05/08/20 05/08/20 05/09/20 15:00 23:00 07:00 Intake Total 240 ml 290 ml 250 ml Output Total 250 ml 150 ml Balance 240 ml 40 ml 100 ml Physical Exam Physical Exam: GENERAL: Alert and oriented gentleman, not in distress. VITAL SIGNS: Stable, HEENT: NAD. NECK: Supple, no JVP, no lymphadenopathy. LUNGS: Clear. HEART: S1, S2 regular. ABDOMEN: Benign. EXTREMITIES: No edema, cyanosis. SKIN: Unremarkable. NEUROLOGIC: The patient is alert, awake and appropriate. No focal neurologic deficit. . General: Alert, Oriented X3, Cooperative, No acute distress Heart: Regular rate Abdomen: Soft Extremities: Other (trace bilateral LE edema) Skin: No significant lesion Labs Labs: Laboratory Tests Test 05/09/20 09:32 White Blood Count 22.7 x10^3/uL (4.0-11.0) Red Blood Count 4.02 x10^6/uL (4.30-5.70) Hemoglobin 12.3 g/dL (13.0-17.5) Hematocrit 36.4 % (39.0-53.0) Mean Corpuscular Volume 91 fL (79-100) Mean Corpuscular Hemoglobin 31 pg (25-35) Mean Corpuscular Hemoglobin Concent 34 g/dL (31-37) Red Cell Distribution Width 14.2 % (11.5-14.5) Platelet Count 314 x10^3/uL (140-400) Neutrophils (%) (Auto) 86 % (31-73) Lymphocytes (%) (Auto) 5 % (24-48) Monocytes (%) (Auto) 8 % (0-9) Eosinophils (%) (Auto) 1 % (0-3) Basophils (%) (Auto) 0 % (0-3) Neutrophils # (Auto) 19.5 x10^3/uL (1.8-7.7) Lymphocytes # (Auto) 1.2 x10^3/uL (1.0-4.8) Monocytes # (Auto) 1.9 x10^3/uL (0.0-1.1) Eosinophils # (Auto) 0.2 x10^3/uL (0.0-0.7) Basophils # (Auto) 0.0 x10^3/uL (0.0-0.2) Sodium Level 134 mmol/L (136-145) Potassium Level 3.6 mmol/L (3.5-5.1) Chloride Level 101 mmol/L (98-107) Carbon Dioxide Level 25 mmol/L (21-32) Anion Gap 8 (6-14) Blood Urea Nitrogen 36 mg/dL (8-26) Creatinine 1.7 mg/dL (0.7-1.3) Estimated GFR (Cockcroft-Gault) 38.6 Glucose Level 174 mg/dL (70-99) Calcium Level 8.8 mg/dL (8.5-10.1) Review of Systems Review of Systems: CONSTITUIONAL: Denies weight loss, fever and chills. HEENT: Denies changes in vision and hearing. RESPIRATORY: Denies SOB and cough. CV: Denies palpitations and CP. GI: Denies abdominal pain, nausea, vomiting and diarrhea. : Denies dysuria and urinary frequency. MSK: Denies myalgia and joint pain. SKIN: Denies rash and pruritus. NEUROLOGICAL: Denies headache and syncope. PSYCHIATRIC: Denies recent changes in mood. Denies anxiety and depression. Assessment and Plan Assessmemt and Plan Problems Medical Problems: (1) Fever Status: Acute (2) Hypoxia Status: Acute (3) Person under investigation for COVID-19 Status: Acute Comment Review of Relevant I have reviewed the following items timoteo (where applicable) has been applied. Justicifation of Admission Dx: Justifications for Admission: Justification of Admission Dx: Yes Aspiration Pneumonia: Hypoxemia TOAN KRISHNAMURTHY MD May 09, 2020 11:24
[2020-05-09 11:36] VITALS: BP 114/57
--- NOTE | 2020-05-09 11:36 | PDOC ---
Infectious Disease Note Subjective Subjective wants to go home Poor appetite Denies increase SOA On 7L O2 No fevers/chills last 24 hrs ROS ROS as mentioned above Vital Sign Vital Signs Vital Signs Date Time Temp Pulse Resp B/P (MAP) Pulse Ox O2 Delivery O2 Flow Rate FiO2 05/09/20 08:54 90 133/63 05/09/20 08:00 Nasal Cannula 7.0 05/09/20 07:00 99.1 22 91 99.1 Physical Exam PHYSICAL EXAM GENERAL: Propped up in bed, alert, tired appearance HEENT: Oral cavity dry NECK: Supple LUNGS: Clear, nonlabored HEART: S1, S2 ABDOMEN: Soft and nontender EXTREMITIES: No edema, cyanosis. SKIN: warm to touch NEUROLOGIC: Alert, appropriate. . Labs Lab Laboratory Tests Test 05/09/20 09:32 White Blood Count 22.7 x10^3/uL (4.0-11.0) Red Blood Count 4.02 x10^6/uL (4.30-5.70) Hemoglobin 12.3 g/dL (13.0-17.5) Hematocrit 36.4 % (39.0-53.0) Mean Corpuscular Volume 91 fL (79-100) Mean Corpuscular Hemoglobin 31 pg (25-35) Mean Corpuscular Hemoglobin Concent 34 g/dL (31-37) Red Cell Distribution Width 14.2 % (11.5-14.5) Platelet Count 314 x10^3/uL (140-400) Neutrophils (%) (Auto) 86 % (31-73) Lymphocytes (%) (Auto) 5 % (24-48) Monocytes (%) (Auto) 8 % (0-9) Eosinophils (%) (Auto) 1 % (0-3) Basophils (%) (Auto) 0 % (0-3) Neutrophils # (Auto) 19.5 x10^3/uL (1.8-7.7) Lymphocytes # (Auto) 1.2 x10^3/uL (1.0-4.8) Monocytes # (Auto) 1.9 x10^3/uL (0.0-1.1) Eosinophils # (Auto) 0.2 x10^3/uL (0.0-0.7) Basophils # (Auto) 0.0 x10^3/uL (0.0-0.2) Sodium Level 134 mmol/L (136-145) Potassium Level 3.6 mmol/L (3.5-5.1) Chloride Level 101 mmol/L (98-107) Carbon Dioxide Level 25 mmol/L (21-32) Anion Gap 8 (6-14) Blood Urea Nitrogen 36 mg/dL (8-26) Creatinine 1.7 mg/dL (0.7-1.3) Estimated GFR (Cockcroft-Gault) 38.6 Glucose Level 174 mg/dL (70-99) Calcium Level 8.8 mg/dL (8.5-10.1) Micro Microbiology 05/06/20 Blood Culture - Preliminary, Resulted NO GROWTH AFTER 2 DAYS Objective Assessment Suspected COVID-19.,, OVID 19 is negative 05/04 and 05/06. Fever - better Pulmonary infiltrate. Renal insufficiency. Atrial fibrillation. Hypoxemia. Plan Plan of Care Fever curve improving, Continue Cefepime and Zyvox off azithromycin Maintain aspiration precautions BC neg to date Attending Co-Sign The patient was seen and interviewed as well as examined at the bedside. The chart was reviewed. The case was discussed. Agree with the plan of care. LUIS BARGER APRN May 09, 2020 11:36 LORENA POWELL MD May 09, 2020 14:02
[2020-05-09] MEDS: ACETAMINOPHEN 325 MG TABLET. PO PRN ×2 (11:54→23:39)
[2020-05-09 15:00] VITALS: BP 135/65
[2020-05-09 19:00] VITALS: BP 147/63
[2020-05-09] MEDS: ATORVASTATIN CALCIUM 20 MG TABLET PO SCH (20:22)
[2020-05-09 23:35] VITALS: BP 137/56
[2020-05-10 03:00] VITALS: BP 133/62
[2020-05-10] MEDS: ALBUTEROL SULFATE 8GM INHALER. INH SCH ×6 (03:00→23:00)
[2020-05-10] MEDS: HEPARIN for SUB-Q USE 5,000 UNIT/ML VIAL. SQ SCH ×3 (05:57→20:52)
[2020-05-10 07:00] VITALS: BP 147/64
[2020-05-10] MEDS: LACTOBACILLUS RHAMNOSUS GG 1 CAPSULE. PO SCH ×2 (09:04→20:49)
[2020-05-10] MEDS: ASPIRIN CHEWABLE 81 MG TABLET. PO SCH (09:04)
[2020-05-10] MEDS: CLOPIDOGREL BISULFATE 75 MG TABLET PO SCH (09:04)
[2020-05-10] MEDS: LINEZOLID 600 MG TABLET PO SCH ×2 (09:04→20:49)
[2020-05-10] MEDS: PANTOPRAZOLE 40 MG TABLET.DR. PO SCH (09:04)
[2020-05-10] MEDS: METOPROLOL TART IMMED RELEASE 50 MG TABLET. PO SCH ×2 (09:05→20:49)
[2020-05-10] MEDS: CEFEPIME HCL IV Push 1 GM VIAL. IVP SCH ×2 (09:05→20:50)
--- NOTE | 2020-05-10 10:12 | PDOC ---
Infectious Disease Note Subjective Subjective Feeling better this morning Now on 6 L O2 Denies increase SOA Tmax 101.0 ROS ROS as mentioned above Vital Sign Vital Signs Vital Signs Date Time Temp Pulse Resp B/P (MAP) Pulse Ox O2 Delivery O2 Flow Rate FiO2 05/10/20 09:05 87 133/62 05/10/20 07:00 98.6 18 100 Nasal Cannula 7.0 98.6 Physical Exam PHYSICAL EXAM GENERAL: Propped up in bed, alert, looks better HEENT: Oral cavity dry NECK: Supple LUNGS: Clear, nonlabored HEART: S1, S2 ABDOMEN: Soft and nontender EXTREMITIES: No edema, cyanosis. SKIN: warm to touch NEUROLOGIC: Alert, appropriate. . Labs Micro Microbiology 05/06/20 Blood Culture - Preliminary, Resulted NO GROWTH AFTER 3 DAYS Objective Assessment Suspected COVID-19.,, OVID 19 is negative 05/04 and 05/06. Fever Pulmonary infiltrate. Renal insufficiency. Atrial fibrillation. Hypoxemia. Plan Plan of Care Continue Cefepime and Zyvox off azithromycin Maintain aspiration precautions BC neg to date Attending Co-Sign The patient was seen and interviewed as well as examined at the bedside. The chart was reviewed. The case was discussed. Agree with the plan of care. LUIS BARGER APRN May 10, 2020 10:12 LORENA POWELL MD May 10, 2020 10:37
[2020-05-10 11:54] VITALS: BP 146/65
--- NOTE | 2020-05-10 13:55 | PDOC ---
[facility] [facility] PROGRESS NOTE Chief Complaint Chief Complaint Acute respiratory distress secondary to pneumonia Troponinemia possibly related to demand ischemia CKD unknown stage Atrial fibrillationstable Hypertension COVID ruled out PLAN Appreciate cardiology recommendations Appreciate ID recommendations Pending echo possibly Monday Continue with cefepime and Zyvox per ID Blood cultures are negative to date despite persistent fevers Continue home meds Avoid nephrotoxic medications Heparin for DVT prophylaxis Cardiac diet DNR Discussed with RN and SW Dispo pending echo and further cardiac recommendations History of Present Illness History of Present Illness 84-year-old male with past medical history of hypertension, A. fib, CVA, who presents to the ED with complaints of shortness of breath and fevers of 103. He was claimed to be saturating at 86% on 6 L nasal cannula with EMS. Patient also states that he had some cough and associated chest pain. Denies any nausea vomiting, abdominal pain, diarrhea. 05/10/2020 Patient seen and examined today. Telemetry monitoring that showed 12 beats of V. tach. Patient was asymptomatic at this time. Cardiology was consulted awaiting further recommendations. Patient endorses yellow sputum production and forced cough. Patient is ambulatory, tolerating diet, and adequate urine output. 05/09/2020 No acute events overnight. Patient seen and examined bedside today. Patient has been afebrile for 24 hours. Patient is tolerating diet and did have a bowel movement 2 days ago. 05/08/2020 No acute events overnight. Patient did have a fever 100.1, but no major overnight events. Patient is sitting up in bed and compensating well. COVID tested is negative x2 05/07/2020 No acute events overnight. Patient seen and examined bedside today. Patient is tolerating diet and saturating 97% on 9 L nasal cannula. 05/06/2020 Patient seen and examined bedside today. Patient had a fever overnight of 101.4. No acute events overnight. Patient is tolerating diet. Repeat chest x- ray shows worsening pleural effusion. Patient is saturating well 9 L. Vitals/I&O Vitals/I&O: Vital Signs Date Time Temp Pulse Resp B/P (MAP) Pulse Ox O2 Delivery O2 Flow Rate FiO2 05/10/20 11:54 98.1 75 20 146/65 (92) 94 Nasal Cannula 6.0 98.1 I & O 05/09/20 05/09/20 05/10/20 15:00 23:00 07:00 Output Total 250 ml 150 ml Balance -250 ml -150 ml Physical Exam Physical Exam: GENERAL: Propped up in bed, alert, looks better HEENT: Oral cavity dry NECK: Supple LUNGS: Clear, nonlabored HEART: S1, S2 ABDOMEN: Soft and nontender EXTREMITIES: No edema, cyanosis. SKIN: warm to touch NEUROLOGIC: Alert, appropriate. . General: Alert, Oriented X3, Cooperative, No acute distress Heart: Regular rate Abdomen: Soft Extremities: Other (trace bilateral LE edema) Skin: No significant lesion Review of Systems Review of Systems: CONSTITUIONAL: Denies weight loss, fever and chills. HEENT: Denies changes in vision and hearing. RESPIRATORY: Denies SOB and cough. CV: Denies palpitations and CP. GI: Denies abdominal pain, nausea, vomiting and diarrhea. : Denies dysuria and urinary frequency. MSK: Denies myalgia and joint pain. SKIN: Denies rash and pruritus. NEUROLOGICAL: Denies headache and syncope. PSYCHIATRIC: Denies recent changes in mood. Denies anxiety and depression. Assessment and Plan Assessmemt and Plan Problems Medical Problems: (1) Fever Status: Acute (2) Hypoxia Status: Acute (3) Person under investigation for COVID-19 Status: Acute Comment Review of Relevant I have reviewed the following items timoteo (where applicable) has been applied. Medications: Current Medications Medications (Trade) Dose Ordered Sig/Zane Route PRN Reason Start Time Stop Time Status Last Admin Dose Admin Guaifenesin (Mucinex) 600 mg BID PO 05/10/20 14:00 05/10/20 13:41 Justicifation of Admission Dx: Justifications for Admission: Justification of Admission Dx: Yes Aspiration Pneumonia: Hypoxemia TOAN KRISHNAMURTHY MD May 10, 2020 13:55
[2020-05-10 15:06] VITALS: BP 140/62
--- NOTE | 2020-05-10 15:50 | EKG ---
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
[2020-05-10] MEDS: ACETAMINOPHEN 325 MG TABLET. PO PRN (16:02)
[2020-05-10 19:00] VITALS: BP_SYST 152
[2020-05-10] MEDS: ATORVASTATIN CALCIUM 20 MG TABLET PO SCH (20:49)
[2020-05-10 23:00] VITALS: BP 152/72
[2020-05-11] MEDS ORDERED: diphenhydrAMINE ORAL ELIXIR 12.5 MG/5 ML ML PO ONE (00:30)
[2020-05-11] MEDS: ALBUTEROL SULFATE 8GM INHALER. INH SCH ×2 (03:00→07:00)
[2020-05-11 03:08] VITALS: BP 147/71
[2020-05-11] MEDS: HEPARIN for SUB-Q USE 5,000 UNIT/ML VIAL. SQ SCH ×3 (05:39→20:36)
[2020-05-11 07:44] VITALS: BP 132/64
[2020-05-11] MEDS: LINEZOLID 600 MG TABLET PO SCH ×2 (09:37→20:32)
[2020-05-11] MEDS: ASPIRIN CHEWABLE 81 MG TABLET. PO SCH (09:37)
[2020-05-11] MEDS: CLOPIDOGREL BISULFATE 75 MG TABLET PO SCH (09:37)
[2020-05-11] MEDS: PANTOPRAZOLE 40 MG TABLET.DR. PO SCH (09:37)
[2020-05-11] MEDS: METOPROLOL TART IMMED RELEASE 50 MG TABLET. PO SCH ×2 (09:37→20:32)
[2020-05-11] MEDS: CEFEPIME HCL IV Push 1 GM VIAL. IVP SCH ×2 (09:37→20:30)
[2020-05-11] MEDS: LACTOBACILLUS RHAMNOSUS GG 1 CAPSULE. PO SCH ×2 (09:37→20:30)
[2020-05-11] MEDS: POLYVINYL ALCOHOL 1.4% OPHTH SOLUTION 15ML BOTTLE. OU PRN (09:48)
--- NOTE | 2020-05-11 10:46 | PDOC ---
PROGRESS NOTES Chief Complaint Chief Complaint Acute respiratory distress secondary to pneumonia Troponinemia possibly related to demand ischemia CKD unknown stage Atrial fibrillationstable Hypertension COVID ruled out PLAN Appreciate cardiology recommendations Appreciate ID recommendations Pending echo possibly Monday Continue with cefepime and Zyvox per ID Blood cultures are negative to date despite persistent fevers Continue home meds Avoid nephrotoxic medications Heparin for DVT prophylaxis Cardiac diet DNR Discussed with RN and SW Dispo pending echo and further cardiac recommendations History of Present Illness History of Present Illness Mr Rey is a 84-year-old male with past medical history of hypertension, A. fib, CVA, who presents to the ED with complaints of shortness of breath and fevers of 103. He was claimed to be saturating at 86% on 6 L nasal cannula with EMS. Patient also stated that he had some cough and associated chest pain. Denies any nausea vomiting, abdominal pain, diarrhea. 05/06: Patient had a fever overnight of 101.4. No acute events overnight. Patient is tolerating diet. Repeat chest x-ray shows worsening pleural effusion. Patient is saturating well 9 L. 05/07: No acute events overnight. Patient seen and examined bedside today. Patient is tolerating diet and saturating 97% on 9 L nasal cannula. 05/08: No acute events overnight. Patient did have a fever 100.1, but no major overnight events. Patient is sitting up in bed and compensating well. COVID tested is negative x2 05/09: No acute events overnight. Patient seen and examined bedside today. Patient has been afebrile for 24 hours. Patient is tolerating diet and did have a bowel movement 2 days ago. 05/10: Tele showed 12 beats of V. tach. Patient was asymptomatic at this time. Cardiology was consulted awaiting further recommendations. Patient endorses yellow sputum production and forced cough. 101F Afebrile. Still on 3 L nasal cannula oxygen. He is feeling weak. Still with shortness of breath his cough is weak. Vitals Vitals Vital Signs Date Time Temp Pulse Resp B/P (MAP) Pulse Ox O2 Delivery O2 Flow Rate FiO2 05/11/20 09:37 99 132/64 05/11/20 07:44 99.0 20 94 Nasal Cannula 3.0 99.0 Physical Exam Physical Exam GENERAL: Propped up in bed, alert, looks better HEENT: Oral cavity dry NECK: Supple LUNGS: Clear, nonlabored HEART: S1, S2 ABDOMEN: Soft and nontender EXTREMITIES: No edema, cyanosis. SKIN: warm to touch NEUROLOGIC: Alert, appropriate. . General: Alert, Oriented X3, Cooperative, No acute distress Heart: Regular rate Abdomen: Soft Extremities: Other (trace bilateral LE edema) Skin: No significant lesion Assessment and Plan Assessmemt and Plan Problems Medical Problems: (1) Fever Status: Acute (2) Hypoxia Status: Acute (3) Person under investigation for COVID-19 Status: Acute Comment Review of Relevant I have reviewed the following items timoteo (where applicable) has been applied. Labs Microbiology 05/06/20 Blood Culture - Preliminary, Resulted NO GROWTH AFTER 4 DAYS Medications Current Medications Acetaminophen (Tylenol) 1,000 mg 1X ONCE PO Last administered on 05/04/20at 19:06; Start 05/04/20 at 19:15; Stop 05/04/20 at 19:16; Status DC Ceftriaxone Sodium (Rocephin) 1 gm 1X ONCE IVP Last administered on 05/04/20at 19:15; Start 05/04/20 at 19:15; Stop 05/04/20 at 19:16; Status DC Azithromycin 250 ml @ 250 mls/hr 1X ONCE IV Last administered on 05/04/20at 19:15; Start 05/04/20 at 19:15; Stop 05/04/20 at 20:14; Status DC Morphine Sulfate (Morphine Sulfate) 2 mg 1X ONCE IV ; Start 05/04/20 at 19:15; Stop 05/04/20 at 19:16; Status Cancel Lorazepam (Ativan Inj) 1 mg 1X ONCE IVP ; Start 05/04/20 at 19:15; Stop 05/04/20 at 19:16; Status Cancel Sodium Chloride 1,000 ml @ 1,000 mls/hr 1X ONCE IV Last administered on 05/04/20at 19:00; Start 05/04/20 at 20:00; Stop 05/04/20 at 20:59; Status DC Ondansetron HCl (Zofran) 4 mg PRN Q8HRS PRN IV NAUSEA/VOMITING; Start 05/04/20 at 20:00; Stop 05/05/20 at 19:59; Status DC Diltiazem HCl (Cardizem Iv Push) 20 mg 1X ONCE IVP ; Start 05/04/20 at 20:15; Stop 05/04/20 at 20:16; Status DC Albuterol Sulfate (Ventolin Hfa) 1 puff Q4H INH Last administered on 05/11/20at 03:00; Start 05/04/20 at 23:00 Aspirin (Aspirin Chewable) 81 mg DAILY PO Last administered on 05/11/20 09:37; Start 05/05/20 at 09:00 Atorvastatin Calcium (Lipitor) 20 mg QHS PO Last administered on 05/10/20at 20:49; Start 05/05/20 at 21:00 Clopidogrel Bisulfate (Plavix) 75 mg DAILY PO Last administered on 05/11/20 09:37; Start 05/05/20 at 09:00 Metoprolol Succinate (Toprol Xl) 25 mg DAILY PO Last administered on 05/07/20 08:43; Start 05/05/20 at 09:00; Stop 05/07/20 at 16:55; Status DC Pantoprazole Sodium (Protonix) 40 mg DAILYAC PO Last administered on 05/11/20 09:37; Start 05/05/20 at 11:30 Ceftriaxone Sodium (Rocephin) 1 gm Q24H IVP Last administered on 05/05/20 15:32; Start 05/05/20 at 15:00; Stop 05/06/20 at 09:58; Status DC Azithromycin (Zithromax) 250 mg BID PO Last administered on 05/08/20 08:30; Start 05/05/20 at 21:00; Stop 05/08/20 at 10:34; Status DC Furosemide (Lasix) 40 mg 1X ONCE IVP Last administered on 05/05/20at 17:35; Start 05/05/20 at 17:00; Stop 05/05/20 at 17:07; Status DC Acetaminophen (Tylenol) 650 mg PRN Q4HRS PRN PO fever and pain Last administered on 05/10/20 16:02; Start 05/05/20 at 23:45 Cefepime HCl (Maxipime) 1 gm Q12HR IVP Last administered on 05/11/20 09:37; Start 05/06/20 at 10:00 Vancomycin HCl (Vanco Per Pharmacy) 1 each PRN DAILY PRN MC SEE COMMENTS; Start 05/06/20 at 10:00; Stop 05/06/20 at 11:07; Status DC Vancomycin HCl 2 gm/Sodium Chloride 500 ml @ 250 mls/hr 1X ONCE IV ; Start 05/06/20 at 11:00; Stop 05/06/20 at 12:59; Status DC Artificial Tears (Artificial Tears) 1 drop PRN Q15MIN PRN OU DRY EYE Last administered on 05/11/20at 09:48; Start 05/06/20 at 12:45 Lactobacillus Rhamnosus (Culturelle) 1 cap BID PO Last administered on 05/11/20at 09:37; Start 05/06/20 at 13:00 Furosemide (Lasix) 40 mg 1X ONCE IVP Last administered on 05/06/20at 17:22; Start 05/06/20 at 13:45; Stop 05/06/20 at 13:47; Status DC Metoprolol Tartrate (Lopressor) 50 mg BID PO Last administered on 05/11/20at 09:37; Start 05/07/20 at 21:00 Heparin Sodium (Porcine) (Heparin Sodium) 5,000 unit Q8HRS SQ Last administered on 05/11/20at 05:39; Start 05/07/20 at 22:00 Linezolid (Zyvox) 600 mg BID PO Last administered on 05/11/20 09:37; Start 05/08/20 at 11:00 Guaifenesin (Mucinex) 600 mg BID PO Last administered on 05/11/20at 09:38; Start 05/10/20 at 14:00 Diphenhydramine HCl (Benadryl Oral Elixir) 12.5 mg 1X ONCE PO Last administered on 05/11/20at 00:27; Start 05/11/20 at 00:30; Stop 05/11/20 at 00:31; Status DC Active Scripts Active Reported Metoprolol Succinate ( Xl ) (Metoprolol Succinate) 25 Mg Tab.er.24h 1 Tab PO DAILY Losartan Potassium 100 Mg Tablet 100 Mg PO DAILY Atorvastatin Calcium 20 Mg Tablet 1 Tab PO DAILY Clopidogrel (Clopidogrel Bisulfate) 75 Mg Tablet 1 Tab PO DAILY Flomax (Tamsulosin Hcl) 0.4 Mg Cap.er.24h 1 Cap PO DAILY Omeprazole 20 Mg Tablet.dr 1 Tab PO DAILY Vitamin B12 (Cyanocobalamin (Vitamin B-12)) 2,500 Mcg Tablet 1 Tab PO DAILY 30 Days Vitamin D3 (Cholecalciferol (Vitamin D3)) 10 Mcg Capsule 10 Mcg PO DAILY PRN Multi Vitamin Daily (Multivitamin) 1 Each Tablet 1 Tab PO DAILY 30 Days Aspirin 81 Mg Tab.chew 1 Tab PO DAILY Vitals/I & O Vital Sign - Last 24 Hours 05/10/20 05/10/20 05/10/20 05/10/20 11:54 15:06 19:00 20:00 Temp 98.1 99.3 97.6 98.1 99.3 97.6 Pulse 75 101 72 Resp B/P (MAP) 146/65 (92) 140/62 (88) 152/ Pulse Ox 94 93 92 O2 Delivery Nasal Cannula Nasal Cannula Nasal Cannula Nasal Cannula O2 Flow Rate 6.0 3.0 3.0 05/10/20 05/10/20 05/11/20 05/11/20 20:49 23:00 03:08 07:44 Temp 98.3 99.1 99.0 98.3 99.1 99.0 Pulse 72 89 89 99 Resp B/P (MAP) 152/62 152/72 (98) 147/71 (96) 132/64 (86) Pulse Ox 97 94 94 O2 Delivery Nasal Cannula Nasal Cannula Nasal Cannula O2 Flow Rate 3.0 05/11/20 09:37 Pulse 99 B/P (MAP) 132/64 Intake and Output 05/10/20 05/10/20 05/11/20 15:00 23:00 07:00 Output Total 200 ml Balance -200 ml Justicifation of Admission Dx: Justifications for Admission: Justification of Admission Dx: Yes Aspiration Pneumonia: Hypoxemia ABIGAIL LIMON MD May 11, 2020 10:46
[2020-05-11] MEDS: BUDESONIDE 0.5 MG/2 ML NEBU. NEB SCH ×2 (11:00→20:06)
[2020-05-11] MEDS ORDERED: ALBUTEROL SULFATE 8GM INHALER. INH PRN (11:00)
[2020-05-11 11:12] VITALS: BP 120/67
--- NOTE | 2020-05-11 11:45 | PDOC ---
Infectious Disease Note Subjective: Subjective Feeling better No fevers last 24 hours Now on 3 L O2 Vital Signs: Vital Signs Vital Signs Date Time Temp Pulse Resp B/P (MAP) Pulse Ox O2 Delivery O2 Flow Rate FiO2 05/11/20 11:12 98.4 77 18 120/67 (84) 94 Nasal Cannula 3.0 98.4 Physical Exam: PHYSICAL EXAM GENERAL: Propped up in bed, alert, looks better HEENT: Oral cavity dry NECK: Supple LUNGS: Clear, nonlabored HEART: S1, S2 ABDOMEN: Soft and nontender EXTREMITIES: No edema, cyanosis. SKIN: warm to touch NEUROLOGIC: Alert, appropriate. . Medications: Inpatient Meds: Current Medications Medications (Trade) Dose Ordered Sig/Zane Start Time Stop Time Status Last Admin Dose Admin Acetaminophen (Tylenol) 650 mg PRN Q4HRS PRN 05/05/20 23:45 05/10/20 16:02 650 MG Albuterol Sulfate (Ventolin Hfa) 1 puff PRN Q4HRS PRN 05/11/20 11:00 Albuterol/ Ipratropium (Duoneb) 3 ml RTQID 05/11/20 12:00 Artificial Tears (Artificial Tears) 1 drop PRN Q15MIN PRN 05/06/20 12:45 05/11/20 09:48 1 DROP Aspirin (Aspirin Chewable) 81 mg DAILY 05/05/20 09:00 05/11/20 09:37 81 MG Atorvastatin Calcium (Lipitor) 20 mg QHS 05/05/20 21:00 05/10/20 20:49 20 MG Azithromycin (Zithromax) 250 mg BID 05/05/20 21:00 05/08/20 10:34 DC 05/08/20 08:30 250 MG Budesonide (Pulmicort) 0.5 mg RTBID 05/11/20 11:00 Cefepime HCl (Maxipime) 1 gm Q12HR 05/06/20 10:00 05/11/20 09:37 1 GM Ceftriaxone Sodium (Rocephin) 1 gm Q24H 05/05/20 15:00 05/06/20 09:58 DC 05/05/20 15:32 1 GM Clopidogrel Bisulfate (Plavix) 75 mg DAILY 05/05/20 09:00 05/11/20 09:37 75 MG Diltiazem HCl (Cardizem Iv Push) 20 mg 1X ONCE 05/04/20 20:15 05/04/20 20:16 DC Diphenhydramine HCl (Benadryl Oral Elixir) 12.5 mg 1X ONCE 05/11/20 00:30 05/11/20 00:31 DC 05/11/20 00:27 12.5 MG Furosemide (Lasix) 40 mg 1X ONCE 05/06/20 13:45 05/06/20 13:47 DC 05/06/20 17:22 40 MG Guaifenesin (Mucinex) 600 mg BID 05/10/20 14:00 05/11/20 09:38 600 MG Heparin Sodium (Porcine) (Heparin Sodium) 5,000 unit Q8HRS 05/07/20 22:00 05/11/20 05:39 5,000 UNIT Lactobacillus Rhamnosus (Culturelle) 1 cap BID 05/06/20 13:00 05/11/20 09:37 1 CAP Linezolid (Zyvox) 600 mg BID 05/08/20 11:00 05/11/20 09:37 600 MG Lorazepam (Ativan Inj) 1 mg 1X ONCE 05/04/20 19:15 05/04/20 19:16 Cancel Metoprolol Succinate (Toprol Xl) 25 mg DAILY 05/05/20 09:00 05/07/20 16:55 DC 05/07/20 08:43 25 MG Metoprolol Tartrate (Lopressor) 50 mg BID 05/07/20 21:00 05/11/20 09:37 50 MG Morphine Sulfate (Morphine Sulfate) 2 mg 1X ONCE 05/04/20 19:15 05/04/20 19:16 Cancel Ondansetron HCl (Zofran) 4 mg PRN Q8HRS PRN 05/04/20 20:00 05/05/20 19:59 DC Pantoprazole Sodium (Protonix) 40 mg DAILYAC 05/05/20 11:30 05/11/20 09:37 40 MG Sodium Chloride 1,000 ml @ 1,000 mls/hr 1X ONCE 05/04/20 20:00 05/04/20 20:59 DC 05/04/20 19:00 1,000 MLS/HR Vancomycin HCl (Vanco Per Pharmacy) 1 each PRN DAILY PRN 05/06/20 10:00 05/06/20 11:07 DC Vancomycin HCl 2 gm/Sodium Chloride 500 ml @ 250 mls/hr 1X ONCE 05/06/20 11:00 05/06/20 12:59 DC Objective: Assessment: Suspected COVID-19. COVID 19 is negative 05/04 and 05/06. Fever pattern improved Pulmonary infiltrate. Renal insufficiency. Atrial fibrillation. Hypoxemia. Plan: Plan of Care Continue Cefepime and Zyvox off azithromycin Maintain aspiration precautions BC neg to date NED POWELL MD May 11, 2020 11:45
[2020-05-11] MEDS: IPRATRPIUM/ALBUTEROL 0.5/2.5MG 3 ML NEBU. NEB SCH ×3 (12:00→20:06)
[2020-05-11 15:29] VITALS: BP 139/68
--- NOTE | 2020-05-11 16:12 | NUR ---
SW following. Spoke with RN and reviewed chart. PT saw pt again today and discharge plan remains home independent. Pt on 3l 02 down from 9l last week. Pt had Echo today per RN. Pt COVID negative x2. SW following.
--- NOTE | 2020-05-11 17:17 | PDOC ---
LIANAREBEKA ROSAS APRN 05/11/20 1717: CARDIO Progress Notes Date and Time Date of Service 05/11/20 Time of Evaluation 1250 Subjective Subjective: No Chest Pain, No Palpitations, No Dizziness Vitals Vitals Vital Signs Date Time Temp Pulse Resp B/P (MAP) Pulse Ox O2 Delivery O2 Flow Rate FiO2 05/11/20 15:45 94 Nasal Cannula 3.0 05/11/20 15:29 98.9 87 16 139/68 (91) 98.9 Weight Weight [ ] Input and Output Intake and Output Intake and Output 05/11/20 07:00 Output Total 200 ml Balance -200 ml Output Urine Total 200 ml # Voids 1 Microbiology Micro Microbiology 05/06/20 Blood Culture - Final, Complete NO GROWTH AFTER 5 DAYS Physical Exam HEENT: Neck Supple W Full Motion Chest: Symmetric LUNGS: Other (diminished ) Abdomen: Soft N/T Extremities: No Edema Neurology: alert, follow commands Assessment Assessment 1. Acute hypoxic respiratory failure secondary to PNA. COVID negative x2 2. Leukocytosis, fevers 3. HERBER 5. Mild troponin elevation; highest 0.2. Most probably type II, demand ischemic in setting of above. CP free 6. Hypertension; controlled 7. Hyperlipidemia; statin 8. PSVT; on metoprolol for rate control. 9. H/o CVA; on ASA/Plavix Recommendations Echo to asses LV systolic function Continue metoprolol for rate control ASA, statin therapy Continue antibiotic therapy as per ID Supportive care Justicifation of Admission Dx: Justifications for Admission: Justification of Admission Dx: Yes Aspiration Pneumonia: Hypoxemia RUSTY CONNELLY MD 05/11/20 1720: CARDIO Progress Notes Assessment Assessment Patient seen and examined I agree with our nurse practitioners assessment and plan. Acute hypoxic respiratory failure secondary to PNA. COVID negative x2. Improved. Will check echocardiogram. HERBER. Continue to monitor lab. Mild troponin elevation; highest 0.2. Most probably type II, demand ischemic in setting of above. CP free. Continue medical treatment. Echo as above. Hypertension; controlled Hyperlipidemia; statin PSVT; on metoprolol for rate control. REBEKA GAINES APRN May 11, 2020 17:17 RUSTY CONNELLY MD May 11, 2020 17:20
[2020-05-11 19:00] VITALS: BP 109/64
[2020-05-11] MEDS: ACETAMINOPHEN 325 MG TABLET. PO PRN (20:31)
[2020-05-11] MEDS: ATORVASTATIN CALCIUM 20 MG TABLET PO SCH (20:32)
[2020-05-11 23:00] VITALS: BP 119/55
[2020-05-12] VITALS (13 sets, daily range): BP systolic 101–140; BP diastolic 47–77
[2020-05-12 04:18] LABS: BASO # 0.1 x10^3/uL (0.0-0.2); BASO % 0 % (0-3); EOS # 0.4 x10^3/uL (0.0-0.7); EOS % 2 % (0-3); HEMATOCRIT 35.7 % (39.0-53.0); HEMOGLOBIN 11.8 g/dL (13.0-17.5); LYMPH % 8 % (24-48); MEAN CORPUSCULAR HEMOGLOBIN 30 pg (25-35); MEAN CORPUSCULAR HGB CONC 33 g/dL (31-37); MEAN CORPUSCULAR VOLUME 91 fL (79-100); MONO # 2.5 x10^3/uL (0.0-1.1); MONO % 10 % (0-9); NEUT # 20.9 x10^3/uL (1.8-7.7); NEUT % 81 % (31-73); PLATELET COUNT 382 x10^3/uL (140-400); RED CELL DISTRIBUTION WIDTH 14.6 % (11.5-14.5); WHITE BLOOD COUNT 25.9 x10^3/uL (4.0-11.0)
[2020-05-12 04:48] LABS: ALBUMIN 1.6 g/dL (3.4-5.0); ALBUMIN/GLOBULIN RATIO 0.4 (1.0-1.7); CALCIUM 8.9 mg/dL (8.5-10.1); CREATININE 1.3 mg/dL (0.7-1.3); GFR 52.6; POTASSIUM 4.3 mmol/L (3.5-5.1); TOTAL BILIRUBIN 0.5 mg/dL (0.2-1.0); TOTAL PROTEIN 6.1 g/dL (6.4-8.2)
[2020-05-12] MEDS: HEPARIN for SUB-Q USE 5,000 UNIT/ML VIAL. SQ SCH ×3 (05:42→21:02)
[2020-05-12] MEDS: BUDESONIDE 0.5 MG/2 ML NEBU. NEB SCH ×2 (07:18→19:29)
[2020-05-12] MEDS: IPRATRPIUM/ALBUTEROL 0.5/2.5MG 3 ML NEBU. NEB SCH ×4 (07:18→19:29)
--- NOTE | 2020-05-12 08:28 | PDOC ---
PROGRESS NOTES Chief Complaint Chief Complaint Acute respiratory distress secondary to pneumonia Pneumonia - likely gram negative given improvement with cefepime Troponin elevation possibly related to demand ischemia CKD unknown stage Atrial fibrillationstable Hypertension COVID ruled out PLAN Appreciate cardiology recommendations Appreciate ID recommendations Pending echo possibly Monday Continue with cefepime and Zyvox per ID Blood cultures are negative to date despite persistent fevers Continue home meds Avoid nephrotoxic medications Heparin for DVT prophylaxis Cardiac diet DNR Discussed with RN and SW Dispo pending echo and further cardiac recommendations History of Present Illness History of Present Illness Mr Rey is a 84-year-old male with past medical history of hypertension, A. fib, CVA, who presents to the ED with complaints of shortness of breath and fevers of 103. He was claimed to be saturating at 86% on 6 L nasal cannula with EMS. Patient also stated that he had some cough and associated chest pain. Denies any nausea vomiting, abdominal pain, diarrhea. 05/06: Patient had a fever overnight of 101.4. No acute events overnight. Patient is tolerating diet. Repeat chest x-ray shows worsening pleural effusion. Patient is saturating well 9 L. 05/07: No acute events overnight. Patient seen and examined bedside today. Patient is tolerating diet and saturating 97% on 9 L nasal cannula. 05/08: No acute events overnight. Patient did have a fever 100.1, but no major overnight events. Patient is sitting up in bed and compensating well. COVID tested is negative x2 05/09: No acute events overnight. Patient seen and examined bedside today. Patient has been afebrile for 24 hours. Tolerating diet and did have a bowel movement 2 days ago. 05/10: Tele showed 12 beats of V. tach. Asymptomatic at this time. Cardiology was consulted. Patient endorses yellow sputum production and forced cough. 101F 05/11: Afebrile. Still on 3 L nasal cannula oxygen. He is feeling weak. Still with shortness of breath his cough is weak. Febrile to 100.3 F, on 3 L nasal cannulated oxygen. Still with productive cough. CT chest obtained today with what I observed to be a large right pleural effusion. Plan: IR consult for thoracentesis Pulm consult Vitals Vitals Vital Signs Date Time Temp Pulse Resp B/P (MAP) Pulse Ox O2 Delivery O2 Flow Rate FiO2 05/12/20 07:25 95 Nasal Cannula 3.0 05/12/20 03:00 98.3 78 18 139/66 (90) 98.3 Physical Exam Physical Exam GENERAL: Propped up in bed, alert, looks better HEENT: Oral cavity dry NECK: Supple LUNGS: Clear, nonlabored HEART: S1, S2 ABDOMEN: Soft and nontender EXTREMITIES: No edema, cyanosis. SKIN: warm to touch NEUROLOGIC: Alert, appropriate. . General: Alert, Oriented X3, Cooperative, No acute distress Heart: Regular rate Abdomen: Soft Extremities: Other (trace bilateral LE edema) Skin: No significant lesion Labs LABS Laboratory Tests Test 05/12/20 03:50 White Blood Count 25.9 x10^3/uL (4.0-11.0) Red Blood Count 3.90 x10^6/uL (4.30-5.70) Hemoglobin 11.8 g/dL (13.0-17.5) Hematocrit 35.7 % (39.0-53.0) Mean Corpuscular Volume 91 fL (79-100) Mean Corpuscular Hemoglobin 30 pg (25-35) Mean Corpuscular Hemoglobin Concent 33 g/dL (31-37) Red Cell Distribution Width 14.6 % (11.5-14.5) Platelet Count 382 x10^3/uL (140-400) Neutrophils (%) (Auto) 81 % (31-73) Lymphocytes (%) (Auto) 8 % (24-48) Monocytes (%) (Auto) 10 % (0-9) Eosinophils (%) (Auto) 2 % (0-3) Basophils (%) (Auto) 0 % (0-3) Neutrophils # (Auto) 20.9 x10^3/uL (1.8-7.7) Lymphocytes # (Auto) 2.0 x10^3/uL (1.0-4.8) Monocytes # (Auto) 2.5 x10^3/uL (0.0-1.1) Eosinophils # (Auto) 0.4 x10^3/uL (0.0-0.7) Basophils # (Auto) 0.1 x10^3/uL (0.0-0.2) Sodium Level 137 mmol/L (136-145) Potassium Level 4.3 mmol/L (3.5-5.1) Chloride Level 103 mmol/L (98-107) Carbon Dioxide Level 25 mmol/L (21-32) Anion Gap 9 (6-14) Blood Urea Nitrogen 26 mg/dL (8-26) Creatinine 1.3 mg/dL (0.7-1.3) Estimated GFR (Cockcroft-Gault) 52.6 BUN/Creatinine Ratio 20 (6-20) Glucose Level 117 mg/dL (70-99) Calcium Level 8.9 mg/dL (8.5-10.1) Total Bilirubin 0.5 mg/dL (0.2-1.0) Aspartate Amino Transf (AST/SGOT) 79 U/L (15-37) Alanine Aminotransferase (ALT/SGPT) 85 U/L (16-63) Alkaline Phosphatase 193 U/L (46-116) Total Protein 6.1 g/dL (6.4-8.2) Albumin 1.6 g/dL (3.4-5.0) Albumin/Globulin Ratio 0.4 (1.0-1.7) Assessment and Plan Assessmemt and Plan Problems Medical Problems: (1) Fever Status: Acute (2) Hypoxia Status: Acute (3) Person under investigation for COVID-19 Status: Acute Comment Review of Relevant I have reviewed the following items timoteo (where applicable) has been applied. Labs Laboratory Tests Test 05/12/20 03:50 White Blood Count 25.9 x10^3/uL (4.0-11.0) Red Blood Count 3.90 x10^6/uL (4.30-5.70) Hemoglobin 11.8 g/dL (13.0-17.5) Hematocrit 35.7 % (39.0-53.0) Mean Corpuscular Volume 91 fL (79-100) Mean Corpuscular Hemoglobin 30 pg (25-35) Mean Corpuscular Hemoglobin Concent 33 g/dL (31-37) Red Cell Distribution Width 14.6 % (11.5-14.5) Platelet Count 382 x10^3/uL (140-400) Neutrophils (%) (Auto) 81 % (31-73) Lymphocytes (%) (Auto) 8 % (24-48) Monocytes (%) (Auto) 10 % (0-9) Eosinophils (%) (Auto) 2 % (0-3) Basophils (%) (Auto) 0 % (0-3) Neutrophils # (Auto) 20.9 x10^3/uL (1.8-7.7) Lymphocytes # (Auto) 2.0 x10^3/uL (1.0-4.8) Monocytes # (Auto) 2.5 x10^3/uL (0.0-1.1) Eosinophils # (Auto) 0.4 x10^3/uL (0.0-0.7) Basophils # (Auto) 0.1 x10^3/uL (0.0-0.2) Sodium Level 137 mmol/L (136-145) Potassium Level 4.3 mmol/L (3.5-5.1) Chloride Level 103 mmol/L (98-107) Carbon Dioxide Level 25 mmol/L (21-32) Anion Gap 9 (6-14) Blood Urea Nitrogen 26 mg/dL (8-26) Creatinine 1.3 mg/dL (0.7-1.3) Estimated GFR (Cockcroft-Gault) 52.6 BUN/Creatinine Ratio 20 (6-20) Glucose Level 117 mg/dL (70-99) Calcium Level 8.9 mg/dL (8.5-10.1) Total Bilirubin 0.5 mg/dL (0.2-1.0) Aspartate Amino Transf (AST/SGOT) 79 U/L (15-37) Alanine Aminotransferase (ALT/SGPT) 85 U/L (16-63) Alkaline Phosphatase 193 U/L (46-116) Total Protein 6.1 g/dL (6.4-8.2) Albumin 1.6 g/dL (3.4-5.0) Albumin/Globulin Ratio 0.4 (1.0-1.7) Laboratory Tests Test 05/12/20 03:50 White Blood Count 25.9 x10^3/uL (4.0-11.0) Red Blood Count 3.90 x10^6/uL (4.30-5.70) Hemoglobin 11.8 g/dL (13.0-17.5) Hematocrit 35.7 % (39.0-53.0) Mean Corpuscular Volume 91 fL (79-100) Mean Corpuscular Hemoglobin 30 pg (25-35) Mean Corpuscular Hemoglobin Concent 33 g/dL (31-37) Red Cell Distribution Width 14.6 % (11.5-14.5) Platelet Count 382 x10^3/uL (140-400) Neutrophils (%) (Auto) 81 % (31-73) Lymphocytes (%) (Auto) 8 % (24-48) Monocytes (%) (Auto) 10 % (0-9) Eosinophils (%) (Auto) 2 % (0-3) Basophils (%) (Auto) 0 % (0-3) Neutrophils # (Auto) 20.9 x10^3/uL (1.8-7.7) Lymphocytes # (Auto) 2.0 x10^3/uL (1.0-4.8) Monocytes # (Auto) 2.5 x10^3/uL (0.0-1.1) Eosinophils # (Auto) 0.4 x10^3/uL (0.0-0.7) Basophils # (Auto) 0.1 x10^3/uL (0.0-0.2) Sodium Level 137 mmol/L (136-145) Potassium Level 4.3 mmol/L (3.5-5.1) Chloride Level 103 mmol/L (98-107) Carbon Dioxide Level 25 mmol/L (21-32) Anion Gap 9 (6-14) Blood Urea Nitrogen 26 mg/dL (8-26) Creatinine 1.3 mg/dL (0.7-1.3) Estimated GFR (Cockcroft-Gault) 52.6 BUN/Creatinine Ratio 20 (6-20) Glucose Level 117 mg/dL (70-99) Calcium Level 8.9 mg/dL (8.5-10.1) Total Bilirubin 0.5 mg/dL (0.2-1.0) Aspartate Amino Transf (AST/SGOT) 79 U/L (15-37) Alanine Aminotransferase (ALT/SGPT) 85 U/L (16-63) Alkaline Phosphatase 193 U/L (46-116) Total Protein 6.1 g/dL (6.4-8.2) Albumin 1.6 g/dL (3.4-5.0) Albumin/Globulin Ratio 0.4 (1.0-1.7) Microbiology 05/06/20 Blood Culture - Final, Complete NO GROWTH AFTER 5 DAYS Medications Current Medications Acetaminophen (Tylenol) 1,000 mg 1X ONCE PO Last administered on 05/04/20at 19:06; Start 05/04/20 at 19:15; Stop 05/04/20 at 19:16; Status DC Ceftriaxone Sodium (Rocephin) 1 gm 1X ONCE IVP Last administered on 05/04/20at 19:15; Start 05/04/20 at 19:15; Stop 05/04/20 at 19:16; Status DC Azithromycin 250 ml @ 250 mls/hr 1X ONCE IV Last administered on 05/04/20at 19:15; Start 05/04/20 at 19:15; Stop 05/04/20 at 20:14; Status DC Morphine Sulfate (Morphine Sulfate) 2 mg 1X ONCE IV ; Start 05/04/20 at 19:15; Stop 05/04/20 at 19:16; Status Cancel Lorazepam (Ativan Inj) 1 mg 1X ONCE IVP ; Start 05/04/20 at 19:15; Stop 05/04/20 at 19:16; Status Cancel Sodium Chloride 1,000 ml @ 1,000 mls/hr 1X ONCE IV Last administered on 05/04/20at 19:00; Start 05/04/20 at 20:00; Stop 05/04/20 at 20:59; Status DC Ondansetron HCl (Zofran) 4 mg PRN Q8HRS PRN IV NAUSEA/VOMITING; Start 05/04/20 at 20:00; Stop 05/05/20 at 19:59; Status DC Diltiazem HCl (Cardizem Iv Push) 20 mg 1X ONCE IVP ; Start 05/04/20 at 20:15; Stop 05/04/20 at 20:16; Status DC Albuterol Sulfate (Ventolin Hfa) 1 puff Q4H INH Last administered on 05/11/20at 03:00; Start 05/04/20 at 23:00; Stop 05/11/20 at 10:54; Status DC Aspirin (Aspirin Chewable) 81 mg DAILY PO Last administered on 05/11/20 09:37; Start 05/05/20 at 09:00 Atorvastatin Calcium (Lipitor) 20 mg QHS PO Last administered on 05/11/20at 20:32; Start 05/05/20 at 21:00 Clopidogrel Bisulfate (Plavix) 75 mg DAILY PO Last administered on 05/11/20at 09:37; Start 05/05/20 at 09:00 Metoprolol Succinate (Toprol Xl) 25 mg DAILY PO Last administered on 05/07/20at 08:43; Start 05/05/20 at 09:00; Stop 05/07/20 at 16:55; Status DC Pantoprazole Sodium (Protonix) 40 mg DAILYAC PO Last administered on 05/11/20at 09:37; Start 05/05/20 at 11:30 Ceftriaxone Sodium (Rocephin) 1 gm Q24H IVP Last administered on 05/05/20at 15:32; Start 05/05/20 at 15:00; Stop 05/06/20 at 09:58; Status DC Azithromycin (Zithromax) 250 mg BID PO Last administered on 05/08/20at 08:30; Start 05/05/20 at 21:00; Stop 05/08/20 at 10:34; Status DC Furosemide (Lasix) 40 mg 1X ONCE IVP Last administered on 05/05/20at 17:35; Start 05/05/20 at 17:00; Stop 05/05/20 at 17:07; Status DC Acetaminophen (Tylenol) 650 mg PRN Q4HRS PRN PO fever and pain Last admin istered on 05/11/20at 20:31; Start 05/05/20 at 23:45 Cefepime HCl (Maxipime) 1 gm Q12HR IVP Last administered on 05/11/20at 20:30; Start 05/06/20 at 10:00 Vancomycin HCl (Vanco Per Pharmacy) 1 each PRN DAILY PRN MC SEE COMMENTS; Start 05/06/20 at 10:00; Stop 05/06/20 at 11:07; Status DC Vancomycin HCl 2 gm/Sodium Chloride 500 ml @ 250 mls/hr 1X ONCE IV ; Start 05/06/20 at 11:00; Stop 05/06/20 at 12:59; Status DC Artificial Tears (Artificial Tears) 1 drop PRN Q15MIN PRN OU DRY EYE Last administered on 05/11/20at 09:48; Start 05/06/20 at 12:45 Lactobacillus Rhamnosus (Culturelle) 1 cap BID PO Last administered on 05/11/20at 20:30; Start 05/06/20 at 13:00 Furosemide (Lasix) 40 mg 1X ONCE IVP Last administered on 05/06/20at 17:22; Start 05/06/20 at 13:45; Stop 05/06/20 at 13:47; Status DC Metoprolol Tartrate (Lopressor) 50 mg BID PO Last administered on 05/11/20at 20:32; Start 05/07/20 at 21:00 Heparin Sodium (Porcine) (Heparin Sodium) 5,000 unit Q8HRS SQ Last administered on 05/12/20at 05:42; Start 05/07/20 at 22:00 Linezolid (Zyvox) 600 mg BID PO Last administered on 05/11/20at 20:32; Start 05/08/20 at 11:00 Guaifenesin (Mucinex) 600 mg BID PO Last administered on 05/11/20at 20:32; Start 05/10/20 at 14:00 Diphenhydramine HCl (Benadryl Oral Elixir) 12.5 mg 1X ONCE PO Last administered on 05/11/20at 00:27; Start 05/11/20 at 00:30; Stop 05/11/20 at 00:31; Status DC Albuterol/ Ipratropium (Duoneb) 3 ml RTQID NEB Last administered on 05/12/20at 07:18; Start 05/11/20 at 12:00 Budesonide (Pulmicort) 0.5 mg RTBID NEB Last administered on 05/12/20at 07:18; Start 05/11/20 at 11:00 Albuterol Sulfate (Ventolin Hfa) 1 puff PRN Q4HRS PRN INH SOA; Start 05/11/20 at 11:00 Active Scripts Active Reported Metoprolol Succinate ( Xl ) (Metoprolol Succinate) 25 Mg Tab.er.24h 1 Tab PO DAILY Losartan Potassium 100 Mg Tablet 100 Mg PO DAILY Atorvastatin Calcium 20 Mg Tablet 1 Tab PO DAILY Clopidogrel (Clopidogrel Bisulfate) 75 Mg Tablet 1 Tab PO DAILY Flomax (Tamsulosin Hcl) 0.4 Mg Cap.er.24h 1 Cap PO DAILY Omeprazole 20 Mg Tablet.dr 1 Tab PO DAILY Vitamin B12 (Cyanocobalamin (Vitamin B-12)) 2,500 Mcg Tablet 1 Tab PO DAILY 30 Days Vitamin D3 (Cholecalciferol (Vitamin D3)) 10 Mcg Capsule 10 Mcg PO DAILY PRN Multi Vitamin Daily (Multivitamin) 1 Each Tablet 1 Tab PO DAILY 30 Days Aspirin 81 Mg Tab.chew 1 Tab PO DAILY Vitals/I & O Vital Sign - Last 24 Hours 05/11/20 05/11/20 05/11/20 05/11/20 09:37 11:12 15:29 15:45 Temp 98.4 98.9 98.4 98.9 Pulse 99 77 87 Resp 18 16 B/P (MAP) 132/64 120/67 (84) 139/68 (91) Pulse Ox 94 93 94 O2 Delivery Nasal Cannula Nasal Cannula Nasal Cannula O2 Flow Rate 3.0 3.0 3.0 05/11/20 05/11/20 05/11/20 05/11/20 19:00 20:00 20:06 20:11 Temp 101.3 101.3 Pulse 103 Resp 18 B/P (MAP) 109/64 (79) Pulse Ox 93 93 93 O2 Delivery Nasal Cannula Nasal Cannula Nasal Cannula Nasal Cannula O2 Flow Rate 3.0 3.0 3.0 3.0 05/11/20 05/11/20 05/12/20 05/12/20 20:32 23:00 03:00 07:21 Temp 98.9 98.3 98.9 98.3 Pulse 103 70 78 Resp 19 18 B/P (MAP) 109/64 119/55 (76) 139/66 (90) Pulse Ox 93 93 95 O2 Delivery Nasal Cannula Nasal Cannula Nasal Cannula O2 Flow Rate 3.0 3.0 3.0 05/12/20 07:25 Pulse Ox 95 O2 Delivery Nasal Cannula O2 Flow Rate 3.0 Intake and Output 05/11/20 05/11/20 05/12/20 15:00 23:00 07:00 Intake Total 100 ml 200 ml Output Total 300 ml Balance 100 ml 200 ml -300 ml Justicifation of Admission Dx: Justifications for Admission: Justification of Admission Dx: Yes Aspiration Pneumonia: Hypoxemia ABIGAIL LIMON MD May 12, 2020 08:28
[2020-05-12] MEDS: PANTOPRAZOLE 40 MG TABLET.DR. PO SCH (10:00)
[2020-05-12] MEDS: CLOPIDOGREL BISULFATE 75 MG TABLET PO SCH (10:00)
[2020-05-12] MEDS: ASPIRIN CHEWABLE 81 MG TABLET. PO SCH (10:00)
[2020-05-12] MEDS: LINEZOLID 600 MG TABLET PO SCH ×2 (10:00→20:56)
[2020-05-12] MEDS: METOPROLOL TART IMMED RELEASE 50 MG TABLET. PO SCH ×2 (10:00→20:56)
[2020-05-12] MEDS: LACTOBACILLUS RHAMNOSUS GG 1 CAPSULE. PO SCH ×2 (10:00→20:55)
--- NOTE | 2020-05-12 10:48 | PDOC ---
Infectious Disease Note Subjective: Subjective Febrile last pm, T max 101 remains on 3 L O2 Denies other complaint Vital Signs: Vital Signs Vital Signs Date Time Temp Pulse Resp B/P (MAP) Pulse Ox O2 Delivery O2 Flow Rate FiO2 05/12/20 10:00 99 136/65 05/12/20 07:25 95 Nasal Cannula 3.0 05/12/20 07:20 99.0 18 99.0 Physical Exam: PHYSICAL EXAM GENERAL: Propped up in bed, alert, looks better HEENT: Oral cavity dry NECK: Supple LUNGS: Clear, nonlabored HEART: S1, S2 ABDOMEN: Soft and nontender EXTREMITIES: No edema, cyanosis. SKIN: warm to touch NEUROLOGIC: Alert, appropriate. . Medications: Inpatient Meds: Current Medications Medications (Trade) Dose Ordered Sig/Zane Start Time Stop Time Status Last Admin Dose Admin Acetaminophen (Tylenol) 650 mg PRN Q4HRS PRN 05/05/20 23:45 05/11/20 20:31 650 MG Albuterol Sulfate (Ventolin Hfa) 1 puff PRN Q4HRS PRN 05/11/20 11:00 Albuterol/ Ipratropium (Duoneb) 3 ml RTQID 05/11/20 12:00 05/12/20 07:18 3 ML Artificial Tears (Artificial Tears) 1 drop PRN Q15MIN PRN 05/06/20 12:45 05/11/20 09:48 1 DROP Aspirin (Aspirin Chewable) 81 mg DAILY 05/05/20 09:00 05/12/20 10:00 81 MG Atorvastatin Calcium (Lipitor) 20 mg QHS 05/05/20 21:00 05/11/20 20:32 20 MG Azithromycin (Zithromax) 250 mg BID 05/05/20 21:00 05/08/20 10:34 DC 05/08/20 08:30 250 MG Budesonide (Pulmicort) 0.5 mg RTBID 05/11/20 11:00 05/12/20 07:18 0.5 MG Cefepime HCl (Maxipime) 1 gm Q12HR 05/06/20 10:00 05/11/20 20:30 1 GM Ceftriaxone Sodium (Rocephin) 1 gm Q24H 05/05/20 15:00 05/06/20 09:58 DC 05/05/20 15:32 1 GM Clopidogrel Bisulfate (Plavix) 75 mg DAILY 05/05/20 09:00 05/12/20 10:00 75 MG Diltiazem HCl (Cardizem Iv Push) 20 mg 1X ONCE 05/04/20 20:15 05/04/20 20:16 DC Diphenhydramine HCl (Benadryl Oral Elixir) 12.5 mg 1X ONCE 05/11/20 00:30 05/11/20 00:31 DC 05/11/20 00:27 12.5 MG Furosemide (Lasix) 40 mg 1X ONCE 05/06/20 13:45 05/06/20 13:47 DC 05/06/20 17:22 40 MG Guaifenesin (Mucinex) 600 mg BID 05/10/20 14:00 05/12/20 10:00 600 MG Heparin Sodium (Porcine) (Heparin Sodium) 5,000 unit Q8HRS 05/07/20 22:00 05/12/20 05:42 5,000 UNIT Lactobacillus Rhamnosus (Culturelle) 1 cap BID 05/06/20 13:00 05/12/20 10:00 1 CAP Linezolid (Zyvox) 600 mg BID 05/08/20 11:00 05/12/20 10:00 600 MG Lorazepam (Ativan Inj) 1 mg 1X ONCE 05/04/20 19:15 05/04/20 19:16 Cancel Metoprolol Succinate (Toprol Xl) 25 mg DAILY 05/05/20 09:00 05/07/20 16:55 DC 05/07/20 08:43 25 MG Metoprolol Tartrate (Lopressor) 50 mg BID 05/07/20 21:00 05/12/20 10:00 50 MG Morphine Sulfate (Morphine Sulfate) 2 mg 1X ONCE 05/04/20 19:15 05/04/20 19:16 Cancel Ondansetron HCl (Zofran) 4 mg PRN Q8HRS PRN 05/04/20 20:00 05/05/20 19:59 DC Pantoprazole Sodium (Protonix) 40 mg DAILYAC 05/05/20 11:30 05/12/20 10:00 40 MG Sodium Chloride 1,000 ml @ 1,000 mls/hr 1X ONCE 05/04/20 20:00 05/04/20 20:59 DC 7/13/20 19:00 1,000 MLS/HR Vancomycin HCl (Vanco Per Pharmacy) 1 each PRN DAILY PRN 05/06/20 10:00 05/06/20 11:07 DC Vancomycin HCl 2 gm/Sodium Chloride 500 ml @ 250 mls/hr 1X ONCE 05/06/20 11:00 05/06/20 12:59 DC Labs: Lab Laboratory Tests Test 05/12/20 03:50 White Blood Count 25.9 x10^3/uL (4.0-11.0) Red Blood Count 3.90 x10^6/uL (4.30-5.70) Hemoglobin 11.8 g/dL (13.0-17.5) Hematocrit 35.7 % (39.0-53.0) Mean Corpuscular Volume 91 fL (79-100) Mean Corpuscular Hemoglobin 30 pg (25-35) Mean Corpuscular Hemoglobin Concent 33 g/dL (31-37) Red Cell Distribution Width 14.6 % (11.5-14.5) Platelet Count 382 x10^3/uL (140-400) Neutrophils (%) (Auto) 81 % (31-73) Lymphocytes (%) (Auto) 8 % (24-48) Monocytes (%) (Auto) 10 % (0-9) Eosinophils (%) (Auto) 2 % (0-3) Basophils (%) (Auto) 0 % (0-3) Neutrophils # (Auto) 20.9 x10^3/uL (1.8-7.7) Lymphocytes # (Auto) 2.0 x10^3/uL (1.0-4.8) Monocytes # (Auto) 2.5 x10^3/uL (0.0-1.1) Eosinophils # (Auto) 0.4 x10^3/uL (0.0-0.7) Basophils # (Auto) 0.1 x10^3/uL (0.0-0.2) Sodium Level 137 mmol/L (136-145) Potassium Level 4.3 mmol/L (3.5-5.1) Chloride Level 103 mmol/L (98-107) Carbon Dioxide Level 25 mmol/L (21-32) Anion Gap 9 (6-14) Blood Urea Nitrogen 26 mg/dL (8-26) Creatinine 1.3 mg/dL (0.7-1.3) Estimated GFR (Cockcroft-Gault) 52.6 BUN/Creatinine Ratio 20 (6-20) Glucose Level 117 mg/dL (70-99) Calcium Level 8.9 mg/dL (8.5-10.1) Total Bilirubin 0.5 mg/dL (0.2-1.0) Aspartate Amino Transf (AST/SGOT) 79 U/L (15-37) Alanine Aminotransferase (ALT/SGPT) 85 U/L (16-63) Alkaline Phosphatase 193 U/L (46-116) Total Protein 6.1 g/dL (6.4-8.2) Albumin 1.6 g/dL (3.4-5.0) Albumin/Globulin Ratio 0.4 (1.0-1.7) Objective: Assessment: Suspected COVID-19. COVID 19 negative 05/04 and 05/06. Fever pattern improved Pulmonary infiltrate.RT Pleural effusion CT Chest pending Leucocytosis worsening Renal insufficiency. Abn LFTs Atrial fibrillation. Plan: Plan of Care Continue Cefepime and Zyvox off azithromycin F/U Chest CT, May need drainage of Rt Pleural effusion Maintain aspiration precautions BC neg to date NED POWELL MD May 12, 2020 10:48
[2020-05-12] MEDS: CEFEPIME HCL IV Push 1 GM VIAL. IVP SCH ×2 (10:53→20:56)
--- NOTE | 2020-05-12 13:48 | RAD ---
CT scan of the chest without contrast 05/12/2020 CLINICAL HISTORY: Persistent fevers. TECHNIQUE: Unenhanced, contiguous, 5 mm axial sections were obtained through the chest and upper abdomen. One or more of the following individualized dose reduction techniques were utilized for this study: 1. Automated exposure control. 2. Adjustment of the mA and/or kV according to patient size. 3. Use of iterative reconstruction technique. FINDINGS: Comparison is made to a portable chest radiograph dated 05/06/2020. The heart is borderline enlarged. There is a small pericardial effusion. Atherosclerotic calcification of the thoracic aorta and its branches is noted. Small calcified hilar and mediastinal lymph nodes are seen. There is a large right pleural effusion. A very small left pleural effusion is noted. Right lower lobe and to a lesser degree right middle lobe atelectasis is noted. Dependent subsegmental atelectasis is seen involving the right upper lobe and left lower lobe. Images through the upper abdomen demonstrate atherosclerotic calcification of the abdominal aorta and its branches. Rounded low-attenuation lesions are seen involving both kidneys which measure 5 mm to 4 cm in size. These likely represent cysts. No further imaging workup is recommended. Surgical clips are seen within the gallbladder fossa consistent with a cholecystectomy. Atherosclerotic calcification of the abdominal aorta is noted. Very mild S-shaped curvature of the thoracolumbar spine is seen. Degenerative changes are seen involving the thoracic and throughout the lumbar spine. IMPRESSION: 1. Large right pleural effusion. Atelectasis is seen involving the right lower lobe and to lesser extent the right middle lobe. 2. Very small left pleural effusion. Electronically signed by: Raymundo Teague MD (05/12/2020 1:45 PM) [place] [id number]
[2020-05-12] MEDS: POLYVINYL ALCOHOL 1.4% OPHTH SOLUTION 15ML BOTTLE. OU PRN (14:17)
[2020-05-12] MEDS ORDERED: LIDOCAINE WITH 8.4% SOD BICARB 3 ML DISP.SYRIN. ONE (14:51)
--- NOTE | 2020-05-12 14:56 | PDOC ---
PULMONARY PROGRESS NOTES Vitals Vital Signs Date Time Temp Pulse Resp B/P (MAP) Pulse Ox O2 Delivery O2 Flow Rate FiO2 05/12/20 14:35 98.2 74 17 111/52 (71) 93 Nasal Cannula 3.0 98.2 Labs Laboratory Tests Test 05/12/20 03:50 White Blood Count 25.9 x10^3/uL (4.0-11.0) Red Blood Count 3.90 x10^6/uL (4.30-5.70) Hemoglobin 11.8 g/dL (13.0-17.5) Hematocrit 35.7 % (39.0-53.0) Mean Corpuscular Volume 91 fL (79-100) Mean Corpuscular Hemoglobin 30 pg (25-35) Mean Corpuscular Hemoglobin Concent 33 g/dL (31-37) Red Cell Distribution Width 14.6 % (11.5-14.5) Platelet Count 382 x10^3/uL (140-400) Neutrophils (%) (Auto) 81 % (31-73) Lymphocytes (%) (Auto) 8 % (24-48) Monocytes (%) (Auto) 10 % (0-9) Eosinophils (%) (Auto) 2 % (0-3) Basophils (%) (Auto) 0 % (0-3) Neutrophils # (Auto) 20.9 x10^3/uL (1.8-7.7) Lymphocytes # (Auto) 2.0 x10^3/uL (1.0-4.8) Monocytes # (Auto) 2.5 x10^3/uL (0.0-1.1) Eosinophils # (Auto) 0.4 x10^3/uL (0.0-0.7) Basophils # (Auto) 0.1 x10^3/uL (0.0-0.2) Sodium Level 137 mmol/L (136-145) Potassium Level 4.3 mmol/L (3.5-5.1) Chloride Level 103 mmol/L (98-107) Carbon Dioxide Level 25 mmol/L (21-32) Anion Gap 9 (6-14) Blood Urea Nitrogen 26 mg/dL (8-26) Creatinine 1.3 mg/dL (0.7-1.3) Estimated GFR (Cockcroft-Gault) 52.6 BUN/Creatinine Ratio 20 (6-20) Glucose Level 117 mg/dL (70-99) Calcium Level 8.9 mg/dL (8.5-10.1) Total Bilirubin 0.5 mg/dL (0.2-1.0) Aspartate Amino Transf (AST/SGOT) 79 U/L (15-37) Alanine Aminotransferase (ALT/SGPT) 85 U/L (16-63) Alkaline Phosphatase 193 U/L (46-116) Total Protein 6.1 g/dL (6.4-8.2) Albumin 1.6 g/dL (3.4-5.0) Albumin/Globulin Ratio 0.4 (1.0-1.7) Laboratory Tests Test 05/12/20 03:50 White Blood Count 25.9 x10^3/uL (4.0-11.0) Red Blood Count 3.90 x10^6/uL (4.30-5.70) Hemoglobin 11.8 g/dL (13.0-17.5) Hematocrit 35.7 % (39.0-53.0) Mean Corpuscular Volume 91 fL (79-100) Mean Corpuscular Hemoglobin 30 pg (25-35) Mean Corpuscular Hemoglobin Concent 33 g/dL (31-37) Red Cell Distribution Width 14.6 % (11.5-14.5) Platelet Count 382 x10^3/uL (140-400) Neutrophils (%) (Auto) 81 % (31-73) Lymphocytes (%) (Auto) 8 % (24-48) Monocytes (%) (Auto) 10 % (0-9) Eosinophils (%) (Auto) 2 % (0-3) Basophils (%) (Auto) 0 % (0-3) Neutrophils # (Auto) 20.9 x10^3/uL (1.8-7.7) Lymphocytes # (Auto) 2.0 x10^3/uL (1.0-4.8) Monocytes # (Auto) 2.5 x10^3/uL (0.0-1.1) Eosinophils # (Auto) 0.4 x10^3/uL (0.0-0.7) Basophils # (Auto) 0.1 x10^3/uL (0.0-0.2) Sodium Level 137 mmol/L (136-145) Potassium Level 4.3 mmol/L (3.5-5.1) Chloride Level 103 mmol/L (98-107) Carbon Dioxide Level 25 mmol/L (21-32) Anion Gap 9 (6-14) Blood Urea Nitrogen 26 mg/dL (8-26) Creatinine 1.3 mg/dL (0.7-1.3) Estimated GFR (Cockcroft-Gault) 52.6 BUN/Creatinine Ratio 20 (6-20) Glucose Level 117 mg/dL (70-99) Calcium Level 8.9 mg/dL (8.5-10.1) Total Bilirubin 0.5 mg/dL (0.2-1.0) Aspartate Amino Transf (AST/SGOT) 79 U/L (15-37) Alanine Aminotransferase (ALT/SGPT) 85 U/L (16-63) Alkaline Phosphatase 193 U/L (46-116) Total Protein 6.1 g/dL (6.4-8.2) Albumin 1.6 g/dL (3.4-5.0) Albumin/Globulin Ratio 0.4 (1.0-1.7) Medications Active Scripts Medications Dose Route/Sig Max Daily Dose Days Date Category Metoprolol Succinate ( Xl ) (Metoprolol Succinate) 25 Mg Tab.er.24h 1 Tab PO DAILY 05/05/20 Reported Losartan Potassium 100 Mg Tablet 100 Mg PO DAILY 05/05/20 Reported Atorvastatin Calcium 20 Mg Tablet 1 Tab PO DAILY 05/05/20 Reported Clopidogrel (Clopidogrel Bisulfate) 75 Mg Tablet 1 Tab PO DAILY 05/05/20 Reported Flomax (Tamsulosin Hcl) 0.4 Mg Cap.er.24h 1 Cap PO DAILY 05/05/20 Reported Omeprazole 20 Mg Tablet.dr 1 Tab PO DAILY 05/05/20 Reported Vitamin B12 (Cyanocobalamin (Vitamin B-12)) 2,500 Mcg Tablet 1 Tab PO DAILY 30 05/05/20 Reported Vitamin D3 (Cholecalciferol (Vitamin D3)) 10 Mcg Capsule 10 Mcg PO DAILY PRN 05/05/20 Reported Multi Vitamin Daily (Multivitamin) 1 Each Tablet 1 Tab PO DAILY 30 05/05/20 Reported Aspirin 81 Mg Tab.chew 1 Tab PO DAILY 05/05/20 Reported Impression . Full note dictated right-sided effusion discussed with Dr. Osborne differential diagnosis includes parapneumonic effusion, transudate of effusion, malignancy plan interventional radiology to proceed with chest tube placement UMA NARANJO MD May 12, 2020 14:56
[2020-05-12] MEDS ORDERED: LIDOCAINE WITH 8.4% SOD BICARB 3 ML DISP.SYRIN. IJ ONE (15:30)
--- NOTE | 2020-05-12 15:54 | NUR ---
Pt arrived on unit from IR with new chest tube present. Dressing C/D/I. Chest tube hooked up to continuous suction at -20. Container has 1000 mL of output at this time. Will continue to monitor pt.
--- NOTE | 2020-05-12 16:37 | CONS ---
DATE OF CONSULTATION: 05/12/2020 ATTENDING PHYSICIAN: Germain Mcginnis MD REASON FOR CONSULTATION: The patient seen in pulmonary consultation at the request of Dr. Mcginnis for increasing shortness of breath and abnormal chest x-ray. HISTORY OF PRESENT ILLNESS: The patient is an 84-year-old that has a history of hypertension, CVA, previous admission for influenza last year, presented with increasing shortness of breath, some abdominal discomfort ____. The patient was evaluated and found to have a large right-sided effusion. I was asked to see him in consultation. The patient has been seen by the Infectious Disease Service for suspected COVID-19, he has tested negative. He had a fever. He had pulmonary infiltrates. He has been on cefepime and azithromycin in the past. I was asked to see him in consultation as a result of his abnormal CT chest. Yesterday, he had a fever of 101. He has been tested twice for COVID-19 and tested negative on the 04 of May and 06 of May. PAST MEDICAL HISTORY: Hypertension, CVA, renal insufficiency, GI bleed, history of stroke, and prior history of influenza. PAST SURGICAL HISTORY: Status post cholecystectomy. SOCIAL HISTORY: He has never smoked. ALLERGIES: LISTED TO IODINE CONTRAST MEDIA. REVIEW OF SYSTEMS: CONSTITUTIONAL: Fever. EYES: No change in visual acuity. HENT: No nasal congestion or sore throat. PULMONARY: As indicated above. No hemoptysis. CARDIOVASCULAR: No chest pain. No pressure. GASTROINTESTINAL: Some abdominal distention. No nausea, vomiting, diarrhea. GENITOURINARY: No dysuria or frequency. MUSCULOSKELETAL: No localized muscle aches or joint pains. SKIN: No new skin rashes. NEUROLOGIC: No headaches, diplopia or blurred vision. MAR was reviewed. There have been some changes made on his antibiotics by Infectious Disease Service. FAMILY HISTORY: Noncontributory. No history of cancer. PHYSICAL EXAMINATION: VITAL SIGNS: Were noted. O2 saturation was greater than 92%, currently on 3 liters. HEENT: Eyes, the sclerae were nonicteric. NECK: Jugular venous distention was not elevated. No lymphadenopathy. CHEST: Full expansion. LUNGS: Diminished breath sounds in the right. CARDIOVASCULAR: Regular rate and rhythm with S1, S2, no S3. ABDOMEN: Soft, nontender, nondistended. EXTREMITIES: No clubbing, cyanosis or edema. LABORATORY DATA: White count was elevated. Hemoglobin and hematocrit were noted. AST and ALT elevated. Albumin was low. UA was noted. Once again SARS-CoV-2 testing x 2 negative. IMPRESSION: 1. Abnormal CT chest revealing large right-sided effusion. 2. Fever. 3. Progressive dyspnea secondary to above. 4. SARS-CoV-2 negative x 2. 5. Acute hypoxemic respiratory failure. DISCUSSION: The patient presents with fever, increasing shortness of breath and abnormal CT chest revealing large right-sided effusion. Effusion can certainly be related to an empyema, or noncomplicated parapneumonic effusion including the differential diagnosis less likely is a transudative effusion, one of the possibility would be related to a malignancy. PLAN: 1. Continue cefepime and Zyvox per ID. 2. Drainage with CT guidance with the direction of interventional radiologist. 3. Follow up on cultures. The above was discussed with family at the bedside. UMA NARANJO MD DR: HARRY/genaro JOB#: [id number] / [id number]
[2020-05-12] MEDS: ACETAMINOPHEN 325 MG TABLET. PO PRN (16:51)
--- NOTE | 2020-05-12 17:19 | NUR ---
SW following. Reviewed chart and spoke with RN. Pt now has a chest tube. PT to evaluate again. SW awaiting PT recommendations. Pt on . SW to continue following for discharge planning.
--- NOTE | 2020-05-12 17:35 | NUR ---
This RN notified Dr. Doimnguez by telephone of pt's BP dropping, latest BP 108/50 and heart rate elevated at 102. Orders received to give a 500 cc bolus of NS over 3 hours and obtain a STAT chest x-ray. Will continue to monitor pt.
[2020-05-12] MEDS ORDERED: IV NORMAL SALINE 500ML BAG 500 ML IV ONE (17:45)
--- NOTE | 2020-05-12 18:48 | RAD ---
CHEST AP ONLY Clinical History: Reason: Post chest tube placement 502 / Spl. Instructions: / History: Technique: AP view of the chest was obtained at 05/12/2020 5:38 PM. Comparison: May 06, 2020. Findings: The heart is normal size. The pulmonary vessels appear normal. There is patchy opacity left lung base. There is improved aeration of right lung and there is a small caliber chest tube on the right lung base. There is no pneumothorax. Impression: 1. Small right loculated effusion adjacent infiltrate. This is moderately improved after placement of a small caliber chest tube. There is no pneumothorax. 2. Mild left basal infiltrate seen previously and unchanged. Electronically signed by: Ray Gordon III, MD (05/12/2020 6:45 PM) [facility]
[2020-05-12 19:16] LABS: BF CLARITY HAZY; BF COLOR YELLOW; BF MON % 6 %; BF PMN % 94 %; BF RBC COUNT 3707 /cmm (Not Established); BF SOURCE PLEURAL; BF WBC COUNT 1848 /cmm (Not Established); PH,BODY FLUID 6.94
[2020-05-12] MEDS: ATORVASTATIN CALCIUM 20 MG TABLET PO SCH (20:56)
[2020-05-13 03:00] VITALS: BP 125/61
[2020-05-13] MEDS: HEPARIN for SUB-Q USE 5,000 UNIT/ML VIAL. SQ SCH ×3 (06:04→20:27)
[2020-05-13 07:00] VITALS: BP 126/60
[2020-05-13] MEDS: BUDESONIDE 0.5 MG/2 ML NEBU. NEB SCH ×2 (07:13→20:37)
[2020-05-13] MEDS: IPRATRPIUM/ALBUTEROL 0.5/2.5MG 3 ML NEBU. NEB SCH ×4 (07:13→20:37)
--- NOTE | 2020-05-13 08:01 | RAD ---
Ultrasound-guided chest tube placement, right-sided 05/13/2020 5:55 AM Clinical Indication: right pleural effusion Discussion: The procedure was explained in its entirety to the patient or the patients designated farm loan representative by a member of the treatment team, including a discussion of the risks, benefits and commonly accepted alternatives to the procedure, as well as the expected consequences of no therapy whatsoever. Discussion of the risks included, but was not limited to, those that are most frequent and those that are rare but possibly severe or life-threatening, as well as the possibility of unforeseen complications. All elements of maximal sterile barrier technique including the use of a cap, mask, sterile gown, sterile gloves, large sterile sheet, appropriate hand hygiene, and 2% chlorhexidine for cutaneous antisepsis (or acceptable alternative antiseptic per current guidelines) were followed for this procedure. Ultrasound evaluation demonstrates a large, multiloculated right pleural effusion. The overlying skin was anesthetized with 1% lidocaine. Under direct ultrasound guidance a 5 Kazakh Yueh needle was advanced into the pleural space. A guidewire was advanced into the pleural space over which, following dilatation, a 12 Kazakh pigtail drain was placed. Serous fluid was aspirated. The catheter was connected to Pleur-evac device at -20 cm of water. Catheter secured in place and sterile dressings were applied. No immediate complications were identified. Samples of pleural fluid were obtained and sent for analysis. Impression: Multiloculated right pleural effusion. Ultrasound-guided thoracostomy tube placement
--- NOTE | 2020-05-13 08:11 | PDOC ---
PROGRESS NOTES Chief Complaint Chief Complaint Acute respiratory distress secondary to pneumonia Pneumonia - likely gram negative given improvement with cefepime Troponin elevation possibly related to demand ischemia CKD unknown stage Atrial fibrillationstable Hypertension COVID ruled out PLAN Appreciate cardiology recommendations Appreciate ID recommendations Pending echo possibly Monday Continue with cefepime and Zyvox per ID Blood cultures are negative to date despite persistent fevers Continue home meds Avoid nephrotoxic medications Heparin for DVT prophylaxis Cardiac diet DNR Discussed with RN and SW Dispo pending echo and further cardiac recommendations History of Present Illness History of Present Illness Mr Rey is a 84-year-old male with past medical history of hypertension, A. fib, CVA, who presents to the ED with complaints of shortness of breath and fevers of 103. He was claimed to be saturating at 86% on 6 L nasal cannula with EMS. Patient also stated that he had some cough and associated chest pain. Denies any nausea vomiting, abdominal pain, diarrhea. 05/06: Patient had a fever overnight of 101.4. No acute events overnight. Patient is tolerating diet. Repeat chest x-ray shows worsening pleural effusion. Patient is saturating well 9 L. 05/07: No acute events overnight. Patient seen and examined bedside today. Patient is tolerating diet and saturating 97% on 9 L nasal cannula. 05/08: No acute events overnight. Patient did have a fever 100.1, but no major overnight events. Patient is sitting up in bed and compensating well. COVID tested is negative x2 05/09: No acute events overnight. Patient seen and examined bedside today. Patient has been afebrile for 24 hours. Tolerating diet and did have a bowel movement 2 days ago. 05/10: Tele showed 12 beats of V. tach. Asymptomatic at this time. Cardiology was consulted. Patient endorses yellow sputum production and forced cough. 101F 05/11: Afebrile. Still on 3 L nasal cannula oxygen. He is feeling weak. Still with shortness of breath his cough is weak. 05/12: Febrile to 100.3 F, on 3 L nasal cannulated oxygen. Still with productive cough. CT chest obtained with large right pleural effusion, locu lated. IR placed chest tube. Afebrile overnight. Off O2. Pain at chest tube site. Cough is dry no longer productive. Plan: F/u Pulm consult TPA per chest tube Cont antibiotics Vitals Vitals Vital Signs Date Time Temp Pulse Resp B/P (MAP) Pulse Ox O2 Delivery O2 Flow Rate FiO2 05/13/20 07:13 95 Nasal Cannula 4.0 05/13/20 03:00 98.8 82 18 125/61 (82) 98.8 Physical Exam Physical Exam GENERAL: Propped up in bed, alert, looks better HEENT: Oral cavity dry NECK: Supple LUNGS: Clear, nonlabored HEART: S1, S2 ABDOMEN: Soft and nontender EXTREMITIES: No edema, cyanosis. SKIN: warm to touch NEUROLOGIC: Alert, appropriate. . General: Alert, Oriented X3, Cooperative, No acute distress Heart: Regular rate Abdomen: Soft Extremities: Other (trace bilateral LE edema) Skin: No significant lesion Labs LABS Laboratory Tests Test 05/12/20 15:02 Body Fluid Source Pleural Body Fluid Color Yellow Body Fluid Clarity Hazy Body Fluid pH 6.94 Body Fluid Nucleated Cells 1848 /cmm (Not Established) Body Fluid Mononuclear WBCs (%) 6 % Body Fluid Polymorphonuclear Cells 94 % Body Fluid Total RBCs Counted 3707 /cmm (Not Established) Assessment and Plan Assessmemt and Plan Problems Medical Problems: (1) Fever Status: Acute (2) Hypoxia Status: Acute (3) Person under investigation for COVID-19 Status: Acute Comment Review of Relevant I have reviewed the following items timoteo (where applicable) has been applied. Labs Laboratory Tests Test 05/12/20 03:50 05/12/20 15:02 White Blood Count 25.9 x10^3/uL (4.0-11.0) Red Blood Count 3.90 x10^6/uL (4.30-5.70) Hemoglobin 11.8 g/dL (13.0-17.5) Hematocrit 35.7 % (39.0-53.0) Mean Corpuscular Volume 91 fL (79-100) Mean Corpuscular Hemoglobin 30 pg (25-35) Mean Corpuscular Hemoglobin Concent 33 g/dL (31-37) Red Cell Distribution Width 14.6 % (11.5-14.5) Platelet Count 382 x10^3/uL (140-400) Neutrophils (%) (Auto) 81 % (31-73) Lymphocytes (%) (Auto) 8 % (24-48) Monocytes (%) (Auto) 10 % (0-9) Eosinophils (%) (Auto) 2 % (0-3) Basophils (%) (Auto) 0 % (0-3) Neutrophils # (Auto) 20.9 x10^3/uL (1.8-7.7) Lymphocytes # (Auto) 2.0 x10^3/uL (1.0-4.8) Monocytes # (Auto) 2.5 x10^3/uL (0.0-1.1) Eosinophils # (Auto) 0.4 x10^3/uL (0.0-0.7) Basophils # (Auto) 0.1 x10^3/uL (0.0-0.2) Sodium Level 137 mmol/L (136-145) Potassium Level 4.3 mmol/L (3.5-5.1) Chloride Level 103 mmol/L (98-107) Carbon Dioxide Level 25 mmol/L (21-32) Anion Gap 9 (6-14) Blood Urea Nitrogen 26 mg/dL (8-26) Creatinine 1.3 mg/dL (0.7-1.3) Estimated GFR (Cockcroft-Gault) 52.6 BUN/Creatinine Ratio 20 (6-20) Glucose Level 117 mg/dL (70-99) Calcium Level 8.9 mg/dL (8.5-10.1) Total Bilirubin 0.5 mg/dL (0.2-1.0) Aspartate Amino Transf (AST/SGOT) 79 U/L (15-37) Alanine Aminotransferase (ALT/SGPT) 85 U/L (16-63) Alkaline Phosphatase 193 U/L (46-116) Total Protein 6.1 g/dL (6.4-8.2) Albumin 1.6 g/dL (3.4-5.0) Albumin/Globulin Ratio 0.4 (1.0-1.7) Body Fluid Source Pleural Body Fluid Color Yellow Body Fluid Clarity Hazy Body Fluid pH 6.94 Body Fluid Nucleated Cells 1848 /cmm (Not Established) Body Fluid Mononuclear WBCs (%) 6 % Body Fluid Polymorphonuclear Cells 94 % Body Fluid Total RBCs Counted 3707 /cmm (Not Established) Laboratory Tests Test 05/12/20 15:02 Body Fluid Source Pleural Body Fluid Color Yellow Body Fluid Clarity Hazy Body Fluid pH 6.94 Body Fluid Nucleated Cells 1848 /cmm (Not Established) Body Fluid Mononuclear WBCs (%) 6 % Body Fluid Polymorphonuclear Cells 94 % Body Fluid Total RBCs Counted 3707 /cmm (Not Established) Microbiology 05/06/20 Blood Culture - Final, Complete NO GROWTH AFTER 5 DAYS Medications Current Medications Acetaminophen (Tylenol) 1,000 mg 1X ONCE PO Last administered on 05/04/20at 19:06; Start 05/04/20 at 19:15; Stop 05/04/20 at 19:16; Status DC Ceftriaxone Sodium (Rocephin) 1 gm 1X ONCE IVP Last administered on 05/04/20at 19:15; Start 05/04/20 at 19:15; Stop 05/04/20 at 19:16; Status DC Azithromycin 250 ml @ 250 mls/hr 1X ONCE IV Last administered on 05/04/20at 19:15; Start 05/04/20 at 19:15; Stop 05/04/20 at 20:14; Status DC Morphine Sulfate (Morphine Sulfate) 2 mg 1X ONCE IV ; Start 05/04/20 at 19:15; Stop 05/04/20 at 19:16; Status Cancel Lorazepam (Ativan Inj) 1 mg 1X ONCE IVP ; Start 05/04/20 at 19:15; Stop 05/04/20 at 19:16; Status Cancel Sodium Chloride 1,000 ml @ 1,000 mls/hr 1X ONCE IV Last administered on 05/04/20at 19:00; Start 05/04/20 at 20:00; Stop 05/04/20 at 20:59; Status DC Ondansetron HCl (Zofran) 4 mg PRN Q8HRS PRN IV NAUSEA/VOMITING; Start 05/04/20 at 20:00; Stop 05/05/20 at 19:59; Status DC Diltiazem HCl (Cardizem Iv Push) 20 mg 1X ONCE IVP ; Start 05/04/20 at 20:15; Stop 05/04/20 at 20:16; Status DC Albuterol Sulfate (Ventolin Hfa) 1 puff Q4H INH Last administered on 05/11/20at 03:00; Start 05/04/20 at 23:00; Stop 05/11/20 at 10:54; Status DC Aspirin (Aspirin Chewable) 81 mg DAILY PO Last administered on 05/12/20at 10:00; Start 05/05/20 at 09:00 Atorvastatin Calcium (Lipitor) 20 mg QHS PO Last administered on 05/12/20at 20:56; Start 05/05/20 at 21:00 Clopidogrel Bisulfate (Plavix) 75 mg DAILY PO Last administered on 05/12/20at 10:00; Start 05/05/20 at 09:00 Metoprolol Succinate (Toprol Xl) 25 mg DAILY PO Last administered on 05/07/20at 08:43; Start 05/05/20 at 09:00; Stop 05/07/20 at 16:55; Status DC Pantoprazole Sodium (Protonix) 40 mg DAILYAC PO Last administered on 05/12/20at 10:00; Start 05/05/20 at 11:30 Ceftriaxone Sodium (Rocephin) 1 gm Q24H IVP Last administered on 05/05/20at 15:32; Start 05/05/20 at 15:00; Stop 05/06/20 at 09:58; Status DC Azithromycin (Zithromax) 250 mg BID PO Last administered on 05/08/20at 08:30; Start 05/05/20 at 21:00; Stop 05/08/20 at 10:34; Status DC Furosemide (Lasix) 40 mg 1X ONCE IVP Last administered on 05/05/20at 17:35; Start 05/05/20 at 17:00; Stop 05/05/20 at 17:07; Status DC Acetaminophen (Tylenol) 650 mg PRN Q4HRS PRN PO fever and pain Last administered on 05/12/20at 16:51; Start 05/05/20 at 23:45 Cefepime HCl (Maxipime) 1 gm Q12HR IVP Last administered on 05/12/20at 20:56; Start 05/06/20 at 10:00 Vancomycin HCl (Vanco Per Pharmacy) 1 each PRN DAILY PRN MC SEE COMMENTS; Start 05/06/20 at 10:00; Stop 05/06/20 at 11:07; Status DC Vancomycin HCl 2 gm/Sodium Chloride 500 ml @ 250 mls/hr 1X ONCE IV ; Start 05/06/20 at 11:00; Stop 05/06/20 at 12:59; Status DC Artificial Tears (Artificial Tears) 1 drop PRN Q15MIN PRN OU DRY EYE Last administered on 05/12/20at 14:17; Start 05/06/20 at 12:45 Lactobacillus Rhamnosus (Culturelle) 1 cap BID PO Last administered on 05/12/20at 20:55; Start 05/06/20 at 13:00 Furosemide (Lasix) 40 mg 1X ONCE IVP Last administered on 05/06/20at 17:22; Start 05/06/20 at 13:45; Stop 05/06/20 at 13:47; Status DC Metoprolol Tartrate (Lopressor) 50 mg BID PO Last administered on 05/12/20at 20:56; Start 05/07/20 at 21:00 Heparin Sodium (Porcine) (Heparin Sodium) 5,000 unit Q8HRS SQ Last administered on 05/13/20at 06:04; Start 05/07/20 at 22:00 Linezolid (Zyvox) 600 mg BID PO Last administered on 05/12/20at 20:56; Start 05/08/20 at 11:00 Guaifenesin (Mucinex) 600 mg BID PO Last administered on 05/12/20at 20:56; Start 05/10/20 at 14:00 Diphenhydramine HCl (Benadryl Oral Elixir) 12.5 mg 1X ONCE PO Last administered on 05/11/20at 00:27; Start 05/11/20 at 00:30; Stop 05/11/20 at 00:31; Status DC Albuterol/ Ipratropium (Duoneb) 3 ml RTQID NEB Last administered on 05/13/20at 07:13; Start 05/11/20 at 12:00 Budesonide (Pulmicort) 0.5 mg RTBID NEB Last administered on 05/13/20at 07:13; Start 05/11/20 at 11:00 Albuterol Sulfate (Ventolin Hfa) 1 puff PRN Q4HRS PRN INH SOA; Start 05/11/20 at 11:00 Lidocaine HCl (Buffered Lidocaine 1%) 3 ml STK-MED ONCE .ROUTE ; Start 05/12/20 at 14:51; Stop 05/12/20 at 14:51; Status DC Lidocaine HCl (Buffered Lidocaine 1%) 3 ml 1X ONCE IJ Last administered on 05/12/20at 15:30; Start 05/12/20 at 15:30; Stop 05/12/20 at 15:31; Status DC Sodium Chloride 500 ml @ 166.7 mls/ hr 1X ONCE IV Last administered on 05/12/20at 18:01; Start 05/12/20 at 17:45; Stop 05/12/20 at 20:44; Status DC Active Scripts Active Reported Metoprolol Succinate ( Xl ) (Metoprolol Succinate) 25 Mg Tab.er.24h 1 Tab PO DAILY Losartan Potassium 100 Mg Tablet 100 Mg PO DAILY Atorvastatin Calcium 20 Mg Tablet 1 Tab PO DAILY Clopidogrel (Clopidogrel Bisulfate) 75 Mg Tablet 1 Tab PO DAILY Flomax (Tamsulosin Hcl) 0.4 Mg Cap.er.24h 1 Cap PO DAILY Omeprazole 20 Mg Tablet.dr 1 Tab PO DAILY Vitamin B12 (Cyanocobalamin (Vitamin B-12)) 2,500 Mcg Tablet 1 Tab PO DAILY 30 Days Vitamin D3 (Cholecalciferol (Vitamin D3)) 10 Mcg Capsule 10 Mcg PO DAILY PRN Multi Vitamin Daily (Multivitamin) 1 Each Tablet 1 Tab PO DAILY 30 Days Aspirin 81 Mg Tab.chew 1 Tab PO DAILY Vitals/I & O Vital Sign - Last 24 Hours 05/12/20 05/12/20 05/12/20 05/12/20 08:30 10:00 11:00 11:00 Temp 98.6 98.6 Pulse 99 101 Resp 17 B/P (MAP) 136/65 140/67 (91) Pulse Ox 94 O2 Delivery Nasal Cannula Nasal Cannula O2 Flow Rate 3.0 3.0 05/12/20 05/12/20 05/12/20 05/12/20 12:48 14:35 15:23 15:34 Temp 98.2 98.2 Pulse 74 89 87 Resp 17 18 18 B/P (MAP) 111/52 (71) 136/49 (78) 138/52 (80) Pulse Ox 93 95 95 O2 Delivery Nasal Cannula Nasal Cannula Nasal Cannula Nasal Cannula O2 Flow Rate 3.0 3.0 2.0 2.0 05/12/20 05/12/20 05/12/20 05/12/20 16:10 16:12 16:15 16:30 Pulse 87 89 Resp 18 18 B/P (MAP) 133/51 (78) 133/53 (79) Pulse Ox 90 90 O2 Delivery Nasal Cannula Nasal Cannula Nasal Cannula Nasal Cannula O2 Flow Rate 3.0 3.0 3.0 3.0 05/12/20 05/12/20 05/12/20 05/12/20 16:45 16:50 17:00 17:30 Temp 100.0 100.0 Pulse 98 102 103 Resp 18 18 18 B/P (MAP) 111/47 (68) 108/50 (69) 113/53 (73) Pulse Ox 92 91 91 O2 Delivery Nasal Cannula Nasal Cannula Nasal Cannula O2 Flow Rate 3.0 3.0 3.0 05/12/20 05/12/20 05/12/20 05/12/20 19:00 19:30 20:00 20:56 Temp 97.9 97.9 Pulse 76 76 Resp 18 B/P (MAP) 101/49 (66) 101/49 Pulse Ox 96 96 O2 Delivery Nasal Cannula Nasal Cannula O2 Flow Rate 3.0 2.0 05/12/20 05/13/20 05/13/20 23:00 03:00 07:13 Temp 98.8 98.8 98.8 98.8 Pulse 72 82 Resp 20 18 B/P (MAP) 118/62 (80) 125/61 (82) Pulse Ox 93 92 95 O2 Delivery Nasal Cannula Nasal Cannula O2 Flow Rate 2.0 4.0 Intake and Output 05/12/20 05/12/20 05/13/20 15:00 23:00 07:00 Intake Total 240 ml 300 ml Output Total 200 ml 550 ml 600 ml Balance 40 ml -250 ml -600 ml Justicifation of Admission Dx: Justifications for Admission: Justification of Admission Dx: Yes Aspiration Pneumonia: Hypoxemia ABIGAIL LIMON MD May 13, 2020 08:11
[2020-05-13] MEDS: PANTOPRAZOLE 40 MG TABLET.DR. PO SCH (09:01)
[2020-05-13] MEDS: LACTOBACILLUS RHAMNOSUS GG 1 CAPSULE. PO SCH ×2 (09:01→20:21)
[2020-05-13] MEDS: METOPROLOL TART IMMED RELEASE 50 MG TABLET. PO SCH ×2 (09:01→20:22)
[2020-05-13] MEDS: ASPIRIN CHEWABLE 81 MG TABLET. PO SCH (09:01)
[2020-05-13] MEDS: CEFEPIME HCL IV Push 1 GM VIAL. IVP SCH (09:02)
[2020-05-13] MEDS: LINEZOLID 600 MG TABLET PO SCH ×2 (09:02→20:22)
--- NOTE | 2020-05-13 09:29 | PDOC ---
PULMONARY PROGRESS NOTES Subjective Patient feels less short of air appetite slightly improving no chest pain no pressure Vitals Vital Signs Date Time Temp Pulse Resp B/P (MAP) Pulse Ox O2 Delivery O2 Flow Rate FiO2 05/13/20 09:01 77 126/60 05/13/20 07:13 95 Nasal Cannula 4.0 05/13/20 07:00 98.0 18 98.0 ROS: No Nausea, No Chest Pain, No Abdominal Pain, No Increase Cough General: Alert Lungs: Crackles Cardiovascular: S1, S2 Abdomen: Soft Neuro Exam: Alert Extremities: No Edema Skin: Warm Labs Laboratory Tests Test 05/12/20 03:50 05/12/20 15:02 White Blood Count 25.9 x10^3/uL (4.0-11.0) Red Blood Count 3.90 x10^6/uL (4.30-5.70) Hemoglobin 11.8 g/dL (13.0-17.5) Hematocrit 35.7 % (39.0-53.0) Mean Corpuscular Volume 91 fL (79-100) Mean Corpuscular Hemoglobin 30 pg (25-35) Mean Corpuscular Hemoglobin Concent 33 g/dL (31-37) Red Cell Distribution Width 14.6 % (11.5-14.5) Platelet Count 382 x10^3/uL (140-400) Neutrophils (%) (Auto) 81 % (31-73) Lymphocytes (%) (Auto) 8 % (24-48) Monocytes (%) (Auto) 10 % (0-9) Eosinophils (%) (Auto) 2 % (0-3) Basophils (%) (Auto) 0 % (0-3) Neutrophils # (Auto) 20.9 x10^3/uL (1.8-7.7) Lymphocytes # (Auto) 2.0 x10^3/uL (1.0-4.8) Monocytes # (Auto) 2.5 x10^3/uL (0.0-1.1) Eosinophils # (Auto) 0.4 x10^3/uL (0.0-0.7) Basophils # (Auto) 0.1 x10^3/uL (0.0-0.2) Sodium Level 137 mmol/L (136-145) Potassium Level 4.3 mmol/L (3.5-5.1) Chloride Level 103 mmol/L (98-107) Carbon Dioxide Level 25 mmol/L (21-32) Anion Gap 9 (6-14) Blood Urea Nitrogen 26 mg/dL (8-26) Creatinine 1.3 mg/dL (0.7-1.3) Estimated GFR (Cockcroft-Gault) 52.6 BUN/Creatinine Ratio 20 (6-20) Glucose Level 117 mg/dL (70-99) Calcium Level 8.9 mg/dL (8.5-10.1) Total Bilirubin 0.5 mg/dL (0.2-1.0) Aspartate Amino Transf (AST/SGOT) 79 U/L (15-37) Alanine Aminotransferase (ALT/SGPT) 85 U/L (16-63) Alkaline Phosphatase 193 U/L (46-116) Total Protein 6.1 g/dL (6.4-8.2) Albumin 1.6 g/dL (3.4-5.0) Albumin/Globulin Ratio 0.4 (1.0-1.7) Body Fluid Source Pleural Body Fluid Color Yellow Body Fluid Clarity Hazy Body Fluid pH 6.94 Body Fluid Nucleated Cells 1848 /cmm (Not Established) Body Fluid Mononuclear WBCs (%) 6 % Body Fluid Polymorphonuclear Cells 94 % Body Fluid Total RBCs Counted 3707 /cmm (Not Established) Laboratory Tests Test 05/12/20 15:02 Body Fluid Source Pleural Body Fluid Color Yellow Body Fluid Clarity Hazy Body Fluid pH 6.94 Body Fluid Nucleated Cells 1848 /cmm (Not Established) Body Fluid Mononuclear WBCs (%) 6 % Body Fluid Polymorphonuclear Cells 94 % Body Fluid Total RBCs Counted 3707 /cmm (Not Established) Medications Active Scripts Medications Dose Route/Sig Max Daily Dose Days Date Category Metoprolol Succinate ( Xl ) (Metoprolol Succinate) 25 Mg Tab.er.24h 1 Tab PO DAILY 05/05/20 Reported Losartan Potassium 100 Mg Tablet 100 Mg PO DAILY 05/05/20 Reported Atorvastatin Calcium 20 Mg Tablet 1 Tab PO DAILY 05/05/20 Reported Clopidogrel (Clopidogrel Bisulfate) 75 Mg Tablet 1 Tab PO DAILY 05/05/20 Reported Flomax (Tamsulosin Hcl) 0.4 Mg Cap.er.24h 1 Cap PO DAILY 05/05/20 Reported Omeprazole 20 Mg Tablet.dr 1 Tab PO DAILY 05/05/20 Reported Vitamin B12 (Cyanocobalamin (Vitamin B-12)) 2,500 Mcg Tablet 1 Tab PO DAILY 30 05/05/20 Reported Vitamin D3 (Cholecalciferol (Vitamin D3)) 10 Mcg Capsule 10 Mcg PO DAILY PRN 05/05/20 Reported Multi Vitamin Daily (Multivitamin) 1 Each Tablet 1 Tab PO DAILY 30 05/05/20 Reported Aspirin 81 Mg Tab.chew 1 Tab PO DAILY 05/05/20 Reported Impression . 1. Abnormal CT chest revealing large right-sided effusion. See below 2. Fever. Pneumonia with complicated parapneumonic effusion/empyema 3. Progressive dyspnea secondary to above. 4. SARS-CoV-2 negative x 2. 5. Acute hypoxemic respiratory failure. CT-guided chest tube drain, 05/12 Impression: Multiloculated right pleural effusion. Ultrasound-guided thoracostomy tube placement Plan . pH is low on the pleural fluid will continue drainage, Repeat CT chest May need thoracotomy Case discussed with Dr. Osborne May require TPA UMA NARANJO MD May 13, 2020 09:29
[2020-05-13] MEDS: CLOPIDOGREL BISULFATE 75 MG TABLET PO SCH (09:51)
[2020-05-13 11:00] VITALS: BP 133/55
--- NOTE | 2020-05-13 13:34 | PDOC ---
Infectious Disease Note Subjective: Subjective Pt underwent CTS placement 05/12 Denies other complaint no fevers Vital Signs: Vital Signs Vital Signs Date Time Temp Pulse Resp B/P (MAP) Pulse Ox O2 Delivery O2 Flow Rate FiO2 05/13/20 11:38 89 Room Air 05/13/20 11:00 97.5 83 18 133/55 (81) 3.0 97.5 Physical Exam: PHYSICAL EXAM GENERAL: Propped up in bed, alert, looks better HEENT: Oral cavity dry NECK: Supple LUNGS: dec bs at bases HEART: S1, S2 ABDOMEN: Soft and nontender EXTREMITIES: No edema, cyanosis. SKIN: warm to touch NEUROLOGIC: Alert, appropriate. . Medications: Inpatient Meds: Current Medications Medications (Trade) Dose Ordered Sig/Zane Start Time Stop Time Status Last Admin Dose Admin Acetaminophen (Tylenol) 650 mg PRN Q4HRS PRN 05/05/20 23:45 05/12/20 16:51 650 MG Albuterol Sulfate (Ventolin Hfa) 1 puff PRN Q4HRS PRN 05/11/20 11:00 Albuterol/ Ipratropium (Duoneb) 3 ml RTQID 05/11/20 12:00 05/13/20 11:38 3 ML Artificial Tears (Artificial Tears) 1 drop PRN Q15MIN PRN 05/06/20 12:45 05/12/20 14:17 1 DROP Aspirin (Aspirin Chewable) 81 mg DAILY 05/05/20 09:00 05/13/20 09:01 81 MG Atorvastatin Calcium (Lipitor) 20 mg QHS 05/05/20 21:00 05/12/20 20:56 20 MG Azithromycin (Zithromax) 250 mg BID 05/05/20 21:00 05/08/20 10:34 DC 05/08/20 08:30 250 MG Budesonide (Pulmicort) 0.5 mg RTBID 05/11/20 11:00 05/13/20 07:13 0.5 MG Cefepime HCl (Maxipime) 1 gm Q12HR 05/06/20 10:00 05/13/20 09:02 1 GM Ceftriaxone Sodium (Rocephin) 1 gm Q24H 05/05/20 15:00 05/06/20 09:58 DC 05/05/20 15:32 1 GM Clopidogrel Bisulfate (Plavix) 75 mg DAILY 05/05/20 09:00 05/13/20 09:51 75 MG Diltiazem HCl (Cardizem Iv Push) 20 mg 1X ONCE 05/04/20 20:15 05/04/20 20:16 DC Diphenhydramine HCl (Benadryl Oral Elixir) 12.5 mg 1X ONCE 05/11/20 00:30 05/11/20 00:31 DC 05/11/20 00:27 12.5 MG Furosemide (Lasix) 40 mg 1X ONCE 05/06/20 13:45 05/06/20 13:47 DC 05/06/20 17:22 40 MG Guaifenesin (Mucinex) 600 mg BID 05/10/20 14:00 05/13/20 09:01 600 MG Heparin Sodium (Porcine) (Heparin Sodium) 5,000 unit Q8HRS 05/07/20 22:00 05/13/20 06:04 5,000 UNIT Lactobacillus Rhamnosus (Culturelle) 1 cap BID 05/06/20 13:00 05/13/20 09:01 1 CAP Lidocaine HCl (Buffered Lidocaine 1%) 3 ml 1X ONCE 05/12/20 15:30 05/12/20 15:31 DC 05/12/20 15:30 6 ML Linezolid (Zyvox) 600 mg BID 05/08/20 11:00 05/13/20 09:02 600 MG Lorazepam (Ativan Inj) 1 mg 1X ONCE 05/04/20 19:15 05/04/20 19:16 Cancel Metoprolol Succinate (Toprol Xl) 25 mg DAILY 05/05/20 09:00 05/07/20 16:55 DC 05/07/20 08:43 25 MG Metoprolol Tartrate (Lopressor) 50 mg BID 05/07/20 21:00 05/13/20 09:01 50 MG Morphine Sulfate (Morphine Sulfate) 2 mg 1X ONCE 05/04/20 19:15 05/04/20 19:16 Cancel Ondansetron HCl (Zofran) 4 mg PRN Q8HRS PRN 05/04/20 20:00 05/05/20 19:59 DC Pantoprazole Sodium (Protonix) 40 mg DAILYAC 05/05/20 11:30 05/13/20 09:01 40 MG Sodium Chloride 500 ml @ 166.7 mls/ hr 1X ONCE 05/12/20 17:45 05/12/20 20:44 DC 05/12/20 18:01 166.7 MLS/HR Vancomycin HCl (Vanco Per Pharmacy) 1 each PRN DAILY PRN 05/06/20 10:00 05/06/20 11:07 DC Vancomycin HCl 2 gm/Sodium Chloride 500 ml @ 250 mls/hr 1X ONCE 05/06/20 11:00 05/06/20 12:59 DC Labs: Lab Laboratory Tests Test 05/12/20 15:02 Body Fluid Source Pleural Body Fluid Color Yellow Body Fluid Clarity Hazy Body Fluid pH 6.94 Body Fluid Nucleated Cells 1848 /cmm (Not Established) Body Fluid Mononuclear WBCs (%) 6 % Body Fluid Polymorphonuclear Cells 94 % Body Fluid Total RBCs Counted 3707 /cmm (Not Established) Objective: Assessment: Fever pattern improved Parapneumonic effusion s/p CTS Leucocytosis Renal insufficiency. Abn LFTs Atrial fibrillation. Suspected COVID-19. COVID 19 negative 05/04 and 05/06. Plan: Plan of Care Change cefepime to zosyn Continue Zyvox off azithromycin f/u labs and cults NED PWOELL MD May 13, 2020 13:34
[2020-05-13 15:00] VITALS: BP 128/56
[2020-05-13] MEDS: PIPERACILLIN/TAZOBACTAM 3.375 GM in IV NORMAL SALINE 50ML 50 ML IV SCH ×3 (15:10→23:38)
[2020-05-13] MEDS: POLYVINYL ALCOHOL 1.4% OPHTH SOLUTION 15ML BOTTLE. OU PRN (15:37)
--- NOTE | 2020-05-13 15:45 | RAD ---
CT of the chest without contrast: Clinical History: Reason: Follow-up on empyema / Spl. Instructions: / History: . Axial helical images of the chest were obtained without contrast. COMPARISON: May 12, 2020 There is a moderate right sided hydropneumothorax with a small caliber percutaneous chest tube posteriorly at the lung base. There is a mild left pleural effusion. There are multiple mildly enlarged lymph nodes in the mediastinum. There is a mild pericardial effusion. There is multiple parapelvic cyst in the left kidney seen previously. Impression: 1. Moderate right-sided loculated hydropneumothorax. This is significantly improved after placement of a small caliber chest tube. 2. Mild left pleural effusion seen previously. 3. Mild mediastinal lymphadenopathy seen previously and likely reactive. 4. Mild pericardial effusion seen previously. End impression PQRS Compliance Statement: One or more of the following individualized dose reduction techniques were utilized for this examination: 1. Automated exposure control 2. Adjustment of the mA and/or kV according to patient size 3. Use of iterative reconstruction technique Electronically signed by: Ray Gordon III, MD (05/13/2020 3:42 PM) [facility]
--- NOTE | 2020-05-13 15:59 | NUR ---
SW following. Reviewed chart and spoke with RN. Pt now has a chest tube. PT to evaluate again but did not see pt today, 05/13/2020. SW awaiting PT recommendations. Pt remains on 3l 02. Pt on IV Zosyn. SW to continue following for discharge planning.
[2020-05-13 19:00] VITALS: BP 128/61
[2020-05-13] MEDS: ATORVASTATIN CALCIUM 20 MG TABLET PO SCH (20:22)
[2020-05-13 23:00] VITALS: BP 128/57
[2020-05-14 03:00] VITALS: BP 130/60
[2020-05-14] MEDS: PIPERACILLIN/TAZOBACTAM 3.375 GM in IV NORMAL SALINE 50ML 50 ML IV SCH ×3 (06:00→17:04)
[2020-05-14] MEDS: HEPARIN for SUB-Q USE 5,000 UNIT/ML VIAL. SQ SCH ×3 (06:05→22:12)
[2020-05-14 07:05] VITALS: BP 128/66
[2020-05-14] MEDS: BUDESONIDE 0.5 MG/2 ML NEBU. NEB SCH ×2 (07:58→19:54)
[2020-05-14] MEDS: IPRATRPIUM/ALBUTEROL 0.5/2.5MG 3 ML NEBU. NEB SCH ×4 (07:58→19:54)
[2020-05-14] MEDS: LACTOBACILLUS RHAMNOSUS GG 1 CAPSULE. PO SCH ×2 (08:13→20:38)
[2020-05-14] MEDS: ASPIRIN CHEWABLE 81 MG TABLET. PO SCH (08:13)
[2020-05-14] MEDS: LINEZOLID 600 MG TABLET PO SCH ×2 (08:13→20:38)
[2020-05-14] MEDS: METOPROLOL TART IMMED RELEASE 50 MG TABLET. PO SCH ×2 (08:13→20:38)
[2020-05-14] MEDS: CLOPIDOGREL BISULFATE 75 MG TABLET PO SCH (08:13)
[2020-05-14] MEDS: PANTOPRAZOLE 40 MG TABLET.DR. PO SCH (08:13)
--- NOTE | 2020-05-14 09:22 | PDOC ---
PULMONARY PROGRESS NOTES Subjective Patient with no new complaints no chest pain no pressure no increasing shortness of breath Vitals Vital Signs Date Time Temp Pulse Resp B/P (MAP) Pulse Ox O2 Delivery O2 Flow Rate FiO2 05/14/20 08:13 86 128/66 05/14/20 08:00 92 Nasal Cannula 3.0 05/14/20 07:05 98.3 18 98.3 ROS: No Nausea, No Chest Pain, No Abdominal Pain, No Increase Cough General: Alert Lungs: Crackles Cardiovascular: S1, S2 Abdomen: Soft Neuro Exam: Alert Extremities: No Edema Skin: Warm Labs Laboratory Tests Test 05/12/20 15:02 Body Fluid Source Pleural Body Fluid Color Yellow Body Fluid Clarity Hazy Body Fluid pH 6.94 Body Fluid Nucleated Cells 1848 /cmm (Not Established) Body Fluid Mononuclear WBCs (%) 6 % Body Fluid Polymorphonuclear Cells 94 % Body Fluid Total RBCs Counted 3707 /cmm (Not Established) Body Fluid Glucose 6 mg/dL (.) Body Fluid Total Protein 3.9 g/dL (.) Body Fluid Lactate Dehydrogenase 5730 IU/L (.) Medications Active Scripts Medications Dose Route/Sig Max Daily Dose Days Date Category Metoprolol Succinate ( Xl ) (Metoprolol Succinate) 25 Mg Tab.er.24h 1 Tab PO DAILY 05/05/20 Reported Losartan Potassium 100 Mg Tablet 100 Mg PO DAILY 05/05/20 Reported Atorvastatin Calcium 20 Mg Tablet 1 Tab PO DAILY 05/05/20 Reported Clopidogrel (Clopidogrel Bisulfate) 75 Mg Tablet 1 Tab PO DAILY 05/05/20 Reported Flomax (Tamsulosin Hcl) 0.4 Mg Cap.er.24h 1 Cap PO DAILY 05/05/20 Reported Omeprazole 20 Mg Tablet.dr 1 Tab PO DAILY 05/05/20 Reported Vitamin B12 (Cyanocobalamin (Vitamin B-12)) 2,500 Mcg Tablet 1 Tab PO DAILY 30 05/05/20 Reported Vitamin D3 (Cholecalciferol (Vitamin D3)) 10 Mcg Capsule 10 Mcg PO DAILY PRN 05/05/20 Reported Multi Vitamin Daily (Multivitamin) 1 Each Tablet 1 Tab PO DAILY 30 05/05/20 Reported Aspirin 81 Mg Tab.chew 1 Tab PO DAILY 05/05/20 Reported Impression . 1. Abnormal CT chest revealing large right-sided effusion. See below 2. Fever. Pneumonia with complicated parapneumonic effusion/empyema 3. Progressive dyspnea secondary to above. 4. SARS-CoV-2 negative x 2. 5. Acute hypoxemic respiratory failure. CT-guided chest tube drain, 05/12 Impression: Multiloculated right pleural effusion. Ultrasound-guided thoracostomy tube placement Plan . CT reviewed loculated effusions will proceed with TPA Discussed with Dr. Osborne, TPA twice daily 10 mg So far cultures negative pH is low on the pleural fluid will continue drainage, UMA NARANJO MD May 14, 2020 09:22
--- NOTE | 2020-05-14 09:32 | CARD ---
MR#: [id number] Date of Study: 05/13/2020 Ordering Physician: REBEKA GAINES, Referring Physician: REBEKA GAINES, Tech: Antonia Beckwith APPROVED REPORT EXAM: Two-dimensional and M-mode echocardiogram with Doppler and color Doppler. Other Information Quality : FairHR: 108bpm INDICATION Atrial Fibrillation Congestive Heart Failure RISK FACTORS Hypertension 2D DIMENSIONS RVDd2.9 (2.9-3.5cm)Left Atrium(2D)3.8 (1.6-4.0cm) IVSd1.3 (0.7-1.1cm)Aortic Root(2D)3.5 (2.0-3.7cm) LVDd4.7 (3.9-5.9cm)LVOT Diameter2.0 (1.8-2.4cm) PWd1.3 (0.7-1.1cm)LVDs2.4 (2.5-4.0cm) FS (%) 48.9 %SV83.6 ml Aortic Valve AoV Peak Ilir.165.5cm/sAoV VTI30.3cm AO Peak GR.11.0mmHgLVOT VTI 25.49cm AO Mean GR.9mmHg Mitral Valve MV E Rwgdncpy77.2cm/sMV E Peak Gr.17mmHg MV DECEL [id number] A Pizspfxr698.6cm/s MV E Mean Gr.4mmHgE/A Ratio0.7 TDI Lateral E' P. V11.82cm/sMedial E' P. V10.56cm/s E/Lateral E'6.9E/Medial E'7.7 Tricuspid Valve TR P. [id number]/sRAP [id number] TR Peak Gr.20elWsPGZY84hfUv LEFT VENTRICLE The left ventricle is normal size. There is mild concentric left ventricular hypertrophy. The left ve ntricular systolic function is normal and the ejection fraction is within normal range. The Ejection Fraction is 55-60%. There is normal LV segmental wall motion. Transmitral Doppler flow pattern is Gra de I-abnormal relaxation pattern. RIGHT VENTRICLE The right ventricle is normal size. There is normal right ventricular wall thickness. The right ventr icular systolic function is normal. ATRIA The left atrium size is normal. The right atrium size is normal. The interatrial septum is intact wit h no evidence for an atrial septal defect or patent foramen ovale as noted on 2-D or Doppler imaging. AORTIC VALVE The aortic valve is normal in structure and function. Doppler and Color Flow revealed no significant aortic regurgitation. Calculated aortic valve area is 2.77 cm2 with maximum pressure gradient of 13 m mHg and mean pressure gradient of 9 mmHg. There is no significant aortic valvular stenosis. MITRAL VALVE The mitral valve is normal in structure and function. There is no evidence of mitral valve prolapse. There is no mitral valve stenosis with an mean gradient of 4.30 mmHg. Doppler and Color-flow revealed trace mitral regurgitation. TRICUSPID VALVE The tricuspid valve is normal in structure and function. Doppler and Color Flow revealed trace tricus pid regurgitation with an estimated PAP of 35 mmHg. There is no tricuspid valve stenosis. PULMONIC VALVE The pulmonic valve is not well visualized. Doppler and Color Flow revealed no pulmonic valvular regur gitation. GREAT VESSELS The aortic root is normal in size. The IVC is normal in size and collapses >50% with inspiration. PERICARDIAL EFFUSION There is no evidence of significant pericardial effusion. Critical Notification Critical Value: No <Conclusion> The left ventricle is normal size. The left ventricular systolic function is normal and the ejection fraction is within normal range. The Ejection Fraction is 55-60%. There is mild concentric left ventricular hypertrophy. Doppler and Color Flow revealed no significant aortic regurgitation. Calculated aortic valve area is 2.77 cm2 with maximum pressure gradient of 13 mmHg and mean pressure gradient of 9 mmHg. There is no significant aortic valvular stenosis. Doppler and Color-flow revealed trace mitral regurgitation. Doppler and Color Flow revealed trace tricuspid regurgitation with an estimated PAP of 35 mmHg. Signed by : Tunde David MD Electronically Approved : 05/14/2020 09:32:16
--- NOTE | 2020-05-14 10:55 | PDOC ---
Infectious Disease Note Subjective: Subjective Patient feels better Denies worsening shortness of breath or cough Denies fever, nausea, vomiting, shortness of breath, diarrhea, abdominal pain Vital Signs: Vital Signs Vital Signs Date Time Temp Pulse Resp B/P (MAP) Pulse Ox O2 Delivery O2 Flow Rate FiO2 05/14/20 08:13 86 128/66 05/14/20 08:00 92 Nasal Cannula 3.0 05/14/20 07:05 98.3 18 98.3 Physical Exam: PHYSICAL EXAM GENERAL: Propped up in bed, alert, looks better HEENT: Oral cavity dry NECK: Supple LUNGS: dec bs at bases HEART: S1, S2 ABDOMEN: Soft and nontender EXTREMITIES: No edema, cyanosis. SKIN: warm to touch NEUROLOGIC: Alert, appropriate. . Medications: Inpatient Meds: Current Medications Medications (Trade) Dose Ordered Sig/Zane Start Time Stop Time Status Last Admin Dose Admin Acetaminophen (Tylenol) 650 mg PRN Q4HRS PRN 05/05/20 23:45 05/12/20 16:51 650 MG Albuterol Sulfate (Ventolin Hfa) 1 puff PRN Q4HRS PRN 05/11/20 11:00 Albuterol/ Ipratropium (Duoneb) 3 ml RTQID 05/11/20 12:00 05/14/20 07:58 3 ML Artificial Tears (Artificial Tears) 1 drop PRN Q15MIN PRN 05/06/20 12:45 05/13/20 15:37 1 DROP Aspirin (Aspirin Chewable) 81 mg DAILY 05/05/20 09:00 05/14/20 08:13 81 MG Atorvastatin Calcium (Lipitor) 20 mg QHS 05/05/20 21:00 05/13/20 20:22 20 MG Azithromycin (Zithromax) 250 mg BID 05/05/20 21:00 05/08/20 10:34 DC 05/08/20 08:30 250 MG Budesonide (Pulmicort) 0.5 mg RTBID 05/11/20 11:00 05/14/20 07:58 0.5 MG Cefepime HCl (Maxipime) 1 gm Q12HR 05/06/20 10:00 05/13/20 13:32 DC 05/13/20 09:02 1 GM Ceftriaxone Sodium (Rocephin) 1 gm Q24H 05/05/20 15:00 05/06/20 09:58 DC 05/05/20 15:32 1 GM Clopidogrel Bisulfate (Plavix) 75 mg DAILY 05/05/20 09:00 05/14/20 08:13 75 MG Diltiazem HCl (Cardizem Iv Push) 20 mg 1X ONCE 05/04/20 20:15 05/04/20 20:16 DC Diphenhydramine HCl (Benadryl Oral Elixir) 12.5 mg 1X ONCE 05/11/20 00:30 05/11/20 00:31 DC 05/11/20 00:27 12.5 MG Furosemide (Lasix) 40 mg 1X ONCE 05/06/20 13:45 05/06/20 13:47 DC 05/06/20 17:22 40 MG Guaifenesin (Mucinex) 600 mg BID 05/10/20 14:00 05/14/20 08:13 600 MG Heparin Sodium (Porcine) (Heparin Sodium) 5,000 unit Q8HRS 05/07/20 22:00 05/14/20 06:05 5,000 UNIT Lactobacillus Rhamnosus (Culturelle) 1 cap BID 05/06/20 13:00 05/14/20 08:13 1 CAP Lidocaine HCl (Buffered Lidocaine 1%) 3 ml 1X ONCE 05/12/20 15:30 05/12/20 15:31 DC 05/12/20 15:30 6 ML Linezolid (Zyvox) 600 mg BID 05/08/20 11:00 05/14/20 08:13 600 MG Lorazepam (Ativan Inj) 1 mg 1X ONCE 05/04/20 19:15 05/04/20 19:16 Cancel Metoprolol Succinate (Toprol Xl) 25 mg DAILY 05/05/20 09:00 05/07/20 16:55 DC 05/07/20 08:43 25 MG Metoprolol Tartrate (Lopressor) 50 mg BID 05/07/20 21:00 05/14/20 08:13 50 MG Morphine Sulfate (Morphine Sulfate) 2 mg 1X ONCE 05/04/20 19:15 05/04/20 19:16 Cancel Ondansetron HCl (Zofran) 4 mg PRN Q8HRS PRN 05/04/20 20:00 05/05/20 19:59 DC Pantoprazole Sodium (Protonix) 40 mg DAILYAC 05/05/20 11:30 05/14/20 08:13 40 MG Piperacillin Sod/ Tazobactam Sod 3.375 gm/Sodium Chloride 50 ml @ 100 mls/hr Q6HRS 05/13/20 14:00 05/14/20 06:00 100 MLS/HR Sodium Chloride 500 ml @ 166.7 mls/ hr 1X ONCE 05/12/20 17:45 05/12/20 20:44 DC 05/12/20 18:01 166.7 MLS/HR Vancomycin HCl (Vanco Per Pharmacy) 1 each PRN DAILY PRN 05/06/20 10:00 05/06/20 11:07 DC Vancomycin HCl 2 gm/Sodium Chloride 500 ml @ 250 mls/hr 1X ONCE 05/06/20 11:00 05/06/20 12:59 DC Objective: Assessment: Fever pattern improved Parapneumonic effusion s/p CTS Leucocytosis Renal insufficiency. Abn LFTs Atrial fibrillation. Suspected COVID-19. COVID 19 negative 05/04 and 05/06. Plan: Plan of Care Cont zosyn/ Zyvox Repeat labs off azithromycin F/U cults , pleural fluid monitor labs NED POWELL MD May 14, 2020 10:55
[2020-05-14 11:14] VITALS: BP 118/60
--- NOTE | 2020-05-14 11:15 | PDOC ---
PROGRESS NOTES Chief Complaint Chief Complaint Acute respiratory distress secondary to pneumonia Pneumonia - likely gram negative given improvement with cefepime Troponin elevation possibly related to demand ischemia CKD unknown stage Atrial fibrillationstable Hypertension COVID ruled out PLAN Appreciate cardiology recommendations Appreciate ID recommendations Pending echo possibly Monday Continue with cefepime and Zyvox per ID Blood cultures are negative to date despite persistent fevers Continue home meds Avoid nephrotoxic medications Heparin for DVT prophylaxis Cardiac diet DNR Discussed with RN and SW Dispo pending echo and further cardiac recommendations History of Present Illness History of Present Illness Mr Rey is a 84-year-old male with past medical history of hypertension, A. fib, CVA, who presents to the ED with complaints of shortness of breath and fevers of 103. He was claimed to be saturating at 86% on 6 L nasal cannula with EMS. Patient also stated that he had some cough and associated chest pain. Denies any nausea vomiting, abdominal pain, diarrhea. 05/06: Patient had a fever overnight of 101.4. No acute events overnight. Patient is tolerating diet. Repeat chest x-ray shows worsening pleural effusion. Patient is saturating well 9 L. 05/07: No acute events overnight. Patient seen and examined bedside today. Patient is tolerating diet and saturating 97% on 9 L nasal cannula. 05/08: No acute events overnight. Patient did have a fever 100.1, but no major overnight events. Patient is sitting up in bed and compensating well. COVID tested is negative x2 05/09: No acute events overnight. Patient seen and examined bedside today. Patient has been afebrile for 24 hours. Tolerating diet and did have a bowel movement 2 days ago. 05/10: Tele showed 12 beats of V. tach. Asymptomatic at this time. Cardiology was consulted. Patient endorses yellow sputum production and forced cough. 101F 05/11: Afebrile. Still on 3 L nasal cannula oxygen. He is feeling weak. Still with shortness of breath his cough is weak. 05/12: Febrile to 100.3 F, on 3 L nasal cannulated oxygen. Still with productive cough. CT chest obtained with large right pleural effusion, locu lated. IR placed chest tube. 05/13: Afebrile overnight. Off O2. Pain at chest tube site. Cough is dry no longer productive. 05/14: Patient seems to be doing better, patient denies fever or chills, patient plan of care discussed in detail All concerns addressed to the best of my abilities. Plan: will attempt tPA via chest tube given loculatioin of pleurall effusion reviewed on imaging studies. Patient to continue with supportive measures. Cont antibiotics reassess in the am Disposition: may need placement given advanced age and prolongued hospital stay. Vitals Vitals Vital Signs Date Time Temp Pulse Resp B/P (MAP) Pulse Ox O2 Delivery O2 Flow Rate FiO2 05/14/20 08:13 86 128/66 05/14/20 08:00 92 Nasal Cannula 3.0 05/14/20 07:05 98.3 18 98.3 Physical Exam Physical Exam GENERAL: Propped up in bed, alert, looks better HEENT: Oral cavity dry NECK: Supple LUNGS: dec bs at bases HEART: S1, S2 ABDOMEN: Soft and nontender EXTREMITIES: No edema, cyanosis. SKIN: warm to touch NEUROLOGIC: Alert, appropriate. . General: Alert, Oriented X3, Cooperative, No acute distress Heart: Regular rate Lungs: Crackles Abdomen: Soft Extremities: Other (trace bilateral LE edema) Skin: No significant lesion Assessment and Plan Assessmemt and Plan Problems Medical Problems: (1) Fever Status: Acute (2) Hypoxia Status: Acute (3) Person under investigation for COVID-19 Status: Acute Comment Review of Relevant I have reviewed the following items timoteo (where applicable) has been applied. Labs Laboratory Tests Test 05/12/20 15:02 Body Fluid Source Pleural Body Fluid Color Yellow Body Fluid Clarity Hazy Body Fluid pH 6.94 Body Fluid Nucleated Cells 1848 /cmm (Not Established) Body Fluid Mononuclear WBCs (%) 6 % Body Fluid Polymorphonuclear Cells 94 % Body Fluid Total RBCs Counted 3707 /cmm (Not Established) Body Fluid Glucose 6 mg/dL (.) Body Fluid Total Protein 3.9 g/dL (.) Body Fluid Lactate Dehydrogenase 5730 IU/L (.) Microbiology 05/12/20 Gram Stain - Final, Resulted 05/12/20 Aerobic and Anaerobic Culture, Resulted Pending 05/06/20 Blood Culture - Final, Complete NO GROWTH AFTER 5 DAYS Medications Current Medications Acetaminophen (Tylenol) 1,000 mg 1X ONCE PO Last administered on 05/04/20at 19:06; Start 05/04/20 at 19:15; Stop 05/04/20 at 19:16; Status DC Ceftriaxone Sodium (Rocephin) 1 gm 1X ONCE IVP Last administered on 05/04/20at 19:15; Start 05/04/20 at 19:15; Stop 05/04/20 at 19:16; Status DC Azithromycin 250 ml @ 250 mls/hr 1X ONCE IV Last administered on 05/04/20at 19:15; Start 05/04/20 at 19:15; Stop 05/04/20 at 20:14; Status DC Morphine Sulfate (Morphine Sulfate) 2 mg 1X ONCE IV ; Start 05/04/20 at 19:15; Stop 05/04/20 at 19:16; Status Cancel Lorazepam (Ativan Inj) 1 mg 1X ONCE IVP ; Start 05/04/20 at 19:15; Stop 05/04/20 at 19:16; Status Cancel Sodium Chloride 1,000 ml @ 1,000 mls/hr 1X ONCE IV Last administered on 05/04/20at 19:00; Start 05/04/20 at 20:00; Stop 05/04/20 at 20:59; Status DC Ondansetron HCl (Zofran) 4 mg PRN Q8HRS PRN IV NAUSEA/VOMITING; Start 05/04/20 at 20:00; Stop 05/05/20 at 19:59; Status DC Diltiazem HCl (Cardizem Iv Push) 20 mg 1X ONCE IVP ; Start 05/04/20 at 20:15; Stop 05/04/20 at 20:16; Status DC Albuterol Sulfate (Ventolin Hfa) 1 puff Q4H INH Last administered on 05/11/20at 03:00; Start 05/04/20 at 23:00; Stop 05/11/20 at 10:54; Status DC Aspirin (Aspirin Chewable) 81 mg DAILY PO Last administered on 05/14/20at 08:13; Start 05/05/20 at 09:00 Atorvastatin Calcium (Lipitor) 20 mg QHS PO Last administered on 05/13/20at 20:22; Start 05/05/20 at 21:00 Clopidogrel Bisulfate (Plavix) 75 mg DAILY PO Last administered on 05/14/20at 08:13; Start 05/05/20 at 09:00 Metoprolol Succinate (Toprol Xl) 25 mg DAILY PO Last administered on 05/07/20at 08:43; Start 05/05/20 at 09:00; Stop 05/07/20 at 16:55; Status DC Pantoprazole Sodium (Protonix) 40 mg DAILYAC PO Last administered on 05/14/20at 08:13; Start 05/05/20 at 11:30 Ceftriaxone Sodium (Rocephin) 1 gm Q24H IVP Last administered on 05/05/20at 15:32; Start 05/05/20 at 15:00; Stop 05/06/20 at 09:58; Status DC Azithromycin (Zithromax) 250 mg BID PO Last administered on 05/08/20at 08:30; Start 05/05/20 at 21:00; Stop 05/08/20 at 10:34; Status DC Furosemide (Lasix) 40 mg 1X ONCE IVP Last administered on 05/05/20at 17:35; Start 05/05/20 at 17:00; Stop 05/05/20 at 17:07; Status DC Acetaminophen (Tylenol) 650 mg PRN Q4HRS PRN PO fever and pain Last administered on 05/12/20at 16:51; Start 05/05/20 at 23:45 Cefepime HCl (Maxipime) 1 gm Q12HR IVP Last administered on 05/13/20at 09:02; Start 05/06/20 at 10:00; Stop 05/13/20 at 13:32; Status DC Vancomycin HCl (Vanco Per Pharmacy) 1 each PRN DAILY PRN MC SEE COMMENTS; Start 05/06/20 at 10:00; Stop 05/06/20 at 11:07; Status DC Vancomycin HCl 2 gm/Sodium Chloride 500 ml @ 250 mls/hr 1X ONCE IV ; Start 05/06/20 at 11:00; Stop 05/06/20 at 12:59; Status DC Artificial Tears (Artificial Tears) 1 drop PRN Q15MIN PRN OU DRY EYE Last administered on 05/13/20at 15:37; Start 05/06/20 at 12:45 Lactobacillus Rhamnosus (Culturelle) 1 cap BID PO Last administered on 05/14/20at 08:13; Start 05/06/20 at 13:00 Furosemide (Lasix) 40 mg 1X ONCE IVP Last administered on 05/06/20at 17:22; Start 05/06/20 at 13:45; Stop 05/06/20 at 13:47; Status DC Metoprolol Tartrate (Lopressor) 50 mg BID PO Last administered on 05/14/20at 08:13; Start 05/07/20 at 21:00 Heparin Sodium (Porcine) (Heparin Sodium) 5,000 unit Q8HRS SQ Last administered on 05/14/20at 06:05; Start 05/07/20 at 22:00 Linezolid (Zyvox) 600 mg BID PO Last administered on 05/14/20at 08:13; Start 05/08/20 at 11:00 Guaifenesin (Mucinex) 600 mg BID PO Last administered on 05/14/20at 08:13; Start 05/10/20 at 14:00 Diphenhydramine HCl (Benadryl Oral Elixir) 12.5 mg 1X ONCE PO Last administered on 05/11/20at 00:27; Start 05/11/20 at 00:30; Stop 05/11/20 at 00:31; Status DC Albuterol/ Ipratropium (Duoneb) 3 ml RTQID NEB Last administered on 05/14/20at 07:58; Start 05/11/20 at 12:00 Budesonide (Pulmicort) 0.5 mg RTBID NEB Last administered on 05/14/20at 07:58; Start 05/11/20 at 11:00 Albuterol Sulfate (Ventolin Hfa) 1 puff PRN Q4HRS PRN INH SOA; Start 05/11/20 at 11:00 Lidocaine HCl (Buffered Lidocaine 1%) 3 ml STK-MED ONCE .ROUTE ; Start 05/12/20 at 14:51; Stop 05/12/20 at 14:51; Status DC Lidocaine HCl (Buffered Lidocaine 1%) 3 ml 1X ONCE IJ Last administered on 05/12/20at 15:30; Start 05/12/20 at 15:30; Stop 05/12/20 at 15:31; Status DC Sodium Chloride 500 ml @ 166.7 mls/ hr 1X ONCE IV Last administered on 05/12/20at 18:01; Start 05/12/20 at 17:45; Stop 05/12/20 at 20:44; Status DC Piperacillin Sod/ Tazobactam Sod 3.375 gm/Sodium Chloride 50 ml @ 100 mls/hr Q6HRS IV Last administered on 05/14/20at 06:00; Start 05/13/20 at 14:00 Active Scripts Active Reported Metoprolol Succinate ( Xl ) (Metoprolol Succinate) 25 Mg Tab.er.24h 1 Tab PO DAILY Losartan Potassium 100 Mg Tablet 100 Mg PO DAILY Atorvastatin Calcium 20 Mg Tablet 1 Tab PO DAILY Clopidogrel (Clopidogrel Bisulfate) 75 Mg Tablet 1 Tab PO DAILY Flomax (Tamsulosin Hcl) 0.4 Mg Cap.er.24h 1 Cap PO DAILY Omeprazole 20 Mg Tablet.dr 1 Tab PO DAILY Vitamin B12 (Cyanocobalamin (Vitamin B-12)) 2,500 Mcg Tablet 1 Tab PO DAILY 30 Days Vitamin D3 (Cholecalciferol (Vitamin D3)) 10 Mcg Capsule 10 Mcg PO DAILY PRN Multi Vitamin Daily (Multivitamin) 1 Each Tablet 1 Tab PO DAILY 30 Days Aspirin 81 Mg Tab.chew 1 Tab PO DAILY Vitals/I & O Vital Sign - Last 24 Hours 05/13/20 05/13/20 05/13/20 05/13/20 11:38 15:00 16:05 19:00 Temp 97.8 98.0 97.8 98.0 Pulse 69 80 Resp 18 18 B/P (MAP) 128/56 (80) 128/61 (83) Pulse Ox 89 92 96 90 O2 Delivery Room Air Nasal Cannula Nasal Cannula Nasal Cannula O2 Flow Rate 3.0 2.0 2.0 05/13/20 05/13/20 05/13/20 05/13/20 20:00 20:22 20:42 20:44 Pulse 80 B/P (MAP) 128/61 Pulse Ox 93 O2 Delivery Nasal Cannula Nasal Cannula Nasal Cannula O2 Flow Rate 2.0 2.0 3.0 05/13/20 05/14/20 05/14/20 05/14/20 23:00 03:00 07:05 08:00 Temp 97.8 98.2 98.3 97.8 98.2 98.3 Pulse 74 72 86 Resp 18 18 18 B/P (MAP) 128/57 (80) 130/60 (83) 128/66 (86) Pulse Ox 90 91 94 92 O2 Delivery Nasal Cannula Nasal Cannula O2 Flow Rate 3.0 3.0 05/14/20 08:13 Pulse 86 B/P (MAP) 128/66 Intake and Output 05/13/20 05/13/20 05/14/20 15:00 23:00 07:00 Output Total 250 ml 100 ml 320 ml Balance -250 ml -100 ml -320 ml Justicifation of Admission Dx: Justifications for Admission: Justification of Admission Dx: Yes Aspiration Pneumonia: Hypoxemia SARAH PATEL MD May 14, 2020 11:15
[2020-05-14] MEDS: TOTAL VOLUME IPL SCH ×2 (12:07→22:04)
[2020-05-14] MEDS: ALTEPLASE IPL SCH ×2 (12:07→22:04)
[2020-05-14 12:43] LABS: BASO # 0.1 x10^3/uL (0.0-0.2); BASO % 1 % (0-3); EOS # 0.5 x10^3/uL (0.0-0.7); EOS % 2 % (0-3); HEMATOCRIT 32.5 % (39.0-53.0); HEMOGLOBIN 10.9 g/dL (13.0-17.5); LYMPH # 1.4 x10^3/uL (1.0-4.8); LYMPH % 6 % (24-48); MEAN CORPUSCULAR HEMOGLOBIN 30 pg (25-35); MEAN CORPUSCULAR HGB CONC 34 g/dL (31-37); MEAN CORPUSCULAR VOLUME 91 fL (79-100); MONO # 1.7 x10^3/uL (0.0-1.1); MONO % 7 % (0-9); NEUT # 19.6 x10^3/uL (1.8-7.7); NEUT % 84 % (31-73); PLATELET COUNT 451 x10^3/uL (140-400); RED BLOOD COUNT 3.59 x10^6/uL (4.30-5.70); RED CELL DISTRIBUTION WIDTH 14.3 % (11.5-14.5); WHITE BLOOD COUNT 23.3 x10^3/uL (4.0-11.0)
[2020-05-14 15:00] VITALS: BP 119/63
--- NOTE | 2020-05-14 15:33 | NUR ---
SW following. Spoke with RN and reviewed chart. Pt from home with but his dtr and/or son can come stay with him on discharge. Pt would like to return home when stable. Spoke with dtr who is agreeable to referral for LTAC. [facility] phoned and faxed referral to [facility], , (fax). [facility] awaiting PT recommendation. Pt on 3l 02. Pt does not have home . Pt remains on IV Zosyn and Zyvox. Pt may have an echo on 05/18. Pt still has a chest tube. [facility] to continue following. Addendum: 05/14/20 at 1556 by LYNDA LIU Patient Choice of Vendor form completed.
[2020-05-14] MEDS: ACETAMINOPHEN 325 MG TABLET. PO PRN (17:03)
[2020-05-14 19:00] VITALS: BP 101/57
[2020-05-14] MEDS: ATORVASTATIN CALCIUM 20 MG TABLET PO SCH (20:38)
[2020-05-14 23:00] VITALS: BP 104/65
[2020-05-15] MEDS: PIPERACILLIN/TAZOBACTAM 3.375 GM in IV NORMAL SALINE 50ML 50 ML IV SCH ×4 (00:21→17:44)
[2020-05-15] MEDS: ACETAMINOPHEN 325 MG TABLET. PO PRN (01:15)
[2020-05-15 03:01] VITALS: BP 134/71
[2020-05-15] MEDS: HEPARIN for SUB-Q USE 5,000 UNIT/ML VIAL. SQ SCH ×3 (05:43→21:41)
[2020-05-15] MEDS: BUDESONIDE 0.5 MG/2 ML NEBU. NEB SCH ×2 (07:07→19:42)
[2020-05-15] MEDS: IPRATRPIUM/ALBUTEROL 0.5/2.5MG 3 ML NEBU. NEB SCH ×4 (07:07→19:42)
[2020-05-15 07:15] VITALS: BP 138/62
[2020-05-15] MEDS: LINEZOLID 600 MG TABLET PO SCH ×2 (08:19→21:34)
[2020-05-15] MEDS: ASPIRIN CHEWABLE 81 MG TABLET. PO SCH (08:19)
[2020-05-15] MEDS: LACTOBACILLUS RHAMNOSUS GG 1 CAPSULE. PO SCH ×2 (08:19→21:33)
[2020-05-15] MEDS: ALTEPLASE IPL SCH (08:19)
[2020-05-15] MEDS: PANTOPRAZOLE 40 MG TABLET.DR. PO SCH (08:19)
[2020-05-15] MEDS: TOTAL VOLUME IPL SCH (08:19)
[2020-05-15] MEDS: CLOPIDOGREL BISULFATE 75 MG TABLET PO SCH (08:20)
[2020-05-15] MEDS: METOPROLOL TART IMMED RELEASE 50 MG TABLET. PO SCH ×2 (08:20→21:34)
--- NOTE | 2020-05-15 08:34 | RAD ---
PORTABLE CHEST 1V History: Reason: empyema 502 / Spl. Instructions: / History: Comparison: May 12, 2020 Findings: Unchanged loculated right pleural effusion. Stable right basilar pleural drain. Right mid and basilar consolidations, unchanged. Small left pleural effusion, unchanged. Impression: 1. No significant interval change compared to prior. Electronically signed by: Leighton Abrams DO (05/15/2020 8:31 AM) [id number]
--- NOTE | 2020-05-15 09:17 | PDOC ---
PROGRESS NOTES Chief Complaint Chief Complaint A/P: Acute respiratory distress secondary to pneumonia Pneumonia - likely gram negative given improvement with cefepime Empyema - with chest tube and TPA intracatheter Troponin elevation possibly related to demand ischemia CKD unknown stage Atrial fibrillationstable Hypertension COVID ruled out History of Present Illness History of Present Illness Mr Rey is a 84-year-old male with past medical history of hypertension, A. fib, CVA, who presents to the ED with complaints of shortness of breath and fevers of 103. He was claimed to be saturating at 86% on 6 L nasal cannula with EMS. Patient also stated that he had some cough and associated chest pain. Denies any nausea vomiting, abdominal pain, diarrhea. 05/06: Patient had a fever overnight of 101.4. No acute events overnight. Patient is tolerating diet. Repeat chest x-ray shows worsening pleural effusion. Patient is saturating well 9 L. 05/07: No acute events overnight. Patient seen and examined bedside today. Patient is tolerating diet and saturating 97% on 9 L nasal cannula. 05/08: No acute events overnight. Patient did have a fever 100.1, but no major overnight events. Patient is sitting up in bed and compensating well. COVID tested is negative x2 05/09: No acute events overnight. Patient seen and examined bedside today. Patient has been afebrile for 24 hours. Tolerating diet and did have a bowel movement 2 days ago. 05/10: Tele showed 12 beats of V. tach. Asymptomatic at this time. Cardiology was consulted. Patient endorses yellow sputum production and forced cough. 101F 05/11: Afebrile. Still on 3 L nasal cannula oxygen. He is feeling weak. Still with shortness of breath his cough is weak. 05/12: Febrile to 100.3 F, on 3 L nasal cannulated oxygen. Still with productive cough. CT chest obtained with large right pleural effusion, loculated. IR placed chest tube. 05/13: Afebrile overnight. Off O2. Pain at chest tube site. Cough is dry no longer productive. 05/14: Patient seems to be doing better, patient denies fever or chills, patient plan of care discussed in detail All concerns addressed to the best of my abilities. 800cc out of chest tube after initial tPA instillation on 05/14/2020. instilled this morning and drained. Still with slight cough, off O2. Plan: Given attempt tPA via chest tube given loculation of pleural effusion reviewed on imaging studies. Patient to continue with supportive measures. Cont antibiotics reassess in the am Disposition: may need placement given advanced age and prolongued hospital stay. Vitals Vitals Vital Signs Date Time Temp Pulse Resp B/P (MAP) Pulse Ox O2 Delivery O2 Flow Rate FiO2 05/15/20 08:20 103 138/62 05/15/20 08:00 Room Air 05/15/20 07:15 98.5 18 90 98.5 05/14/20 11:14 3.0 Physical Exam Physical Exam GENERAL: Propped up in bed, alert, looks better HEENT: Oral cavity dry NECK: Supple LUNGS: dec bs at bases HEART: S1, S2 ABDOMEN: Soft and nontender EXTREMITIES: No edema, cyanosis. SKIN: warm to touch NEUROLOGIC: Alert, appropriate. . General: Alert, Oriented X3, Cooperative, No acute distress Heart: Regular rate Lungs: Crackles Abdomen: Soft Extremities: Other (trace bilateral LE edema) Skin: No significant lesion Labs LABS Laboratory Tests Test 05/14/20 12:23 White Blood Count 23.3 x10^3/uL (4.0-11.0) Red Blood Count 3.59 x10^6/uL (4.30-5.70) Hemoglobin 10.9 g/dL (13.0-17.5) Hematocrit 32.5 % (39.0-53.0) Mean Corpuscular Volume 91 fL (79-100) Mean Corpuscular Hemoglobin 30 pg (25-35) Mean Corpuscular Hemoglobin Concent 34 g/dL (31-37) Red Cell Distribution Width 14.3 % (11.5-14.5) Platelet Count 451 x10^3/uL (140-400) Neutrophils (%) (Auto) 84 % (31-73) Lymphocytes (%) (Auto) 6 % (24-48) Monocytes (%) (Auto) 7 % (0-9) Eosinophils (%) (Auto) 2 % (0-3) Basophils (%) (Auto) 1 % (0-3) Neutrophils # (Auto) 19.6 x10^3/uL (1.8-7.7) Lymphocytes # (Auto) 1.4 x10^3/uL (1.0-4.8) Monocytes # (Auto) 1.7 x10^3/uL (0.0-1.1) Eosinophils # (Auto) 0.5 x10^3/uL (0.0-0.7) Basophils # (Auto) 0.1 x10^3/uL (0.0-0.2) Assessment and Plan Assessmemt and Plan Problems Medical Problems: (1) Fever Status: Acute (2) Hypoxia Status: Acute (3) Person under investigation for COVID-19 Status: Acute Comment Review of Relevant I have reviewed the following items timoteo (where applicable) has been applied. Labs Laboratory Tests Test 05/14/20 12:23 White Blood Count 23.3 x10^3/uL (4.0-11.0) Red Blood Count 3.59 x10^6/uL (4.30-5.70) Hemoglobin 10.9 g/dL (13.0-17.5) Hematocrit 32.5 % (39.0-53.0) Mean Corpuscular Volume 91 fL (79-100) Mean Corpuscular Hemoglobin 30 pg (25-35) Mean Corpuscular Hemoglobin Concent 34 g/dL (31-37) Red Cell Distribution Width 14.3 % (11.5-14.5) Platelet Count 451 x10^3/uL (140-400) Neutrophils (%) (Auto) 84 % (31-73) Lymphocytes (%) (Auto) 6 % (24-48) Monocytes (%) (Auto) 7 % (0-9) Eosinophils (%) (Auto) 2 % (0-3) Basophils (%) (Auto) 1 % (0-3) Neutrophils # (Auto) 19.6 x10^3/uL (1.8-7.7) Lymphocytes # (Auto) 1.4 x10^3/uL (1.0-4.8) Monocytes # (Auto) 1.7 x10^3/uL (0.0-1.1) Eosinophils # (Auto) 0.5 x10^3/uL (0.0-0.7) Basophils # (Auto) 0.1 x10^3/uL (0.0-0.2) Laboratory Tests Test 05/14/20 12:23 White Blood Count 23.3 x10^3/uL (4.0-11.0) Red Blood Count 3.59 x10^6/uL (4.30-5.70) Hemoglobin 10.9 g/dL (13.0-17.5) Hematocrit 32.5 % (39.0-53.0) Mean Corpuscular Volume 91 fL (79-100) Mean Corpuscular Hemoglobin 30 pg (25-35) Mean Corpuscular Hemoglobin Concent 34 g/dL (31-37) Red Cell Distribution Width 14.3 % (11.5-14.5) Platelet Count 451 x10^3/uL (140-400) Neutrophils (%) (Auto) 84 % (31-73) Lymphocytes (%) (Auto) 6 % (24-48) Monocytes (%) (Auto) 7 % (0-9) Eosinophils (%) (Auto) 2 % (0-3) Basophils (%) (Auto) 1 % (0-3) Neutrophils # (Auto) 19.6 x10^3/uL (1.8-7.7) Lymphocytes # (Auto) 1.4 x10^3/uL (1.0-4.8) Monocytes # (Auto) 1.7 x10^3/uL (0.0-1.1) Eosinophils # (Auto) 0.5 x10^3/uL (0.0-0.7) Basophils # (Auto) 0.1 x10^3/uL (0.0-0.2) Microbiology 05/12/20 Gram Stain - Final, Resulted 05/12/20 Aerobic and Anaerobic Culture - Preliminary, Resulted 05/06/20 Blood Culture - Final, Complete NO GROWTH AFTER 5 DAYS Medications Current Medications Acetaminophen (Tylenol) 1,000 mg 1X ONCE PO Last administered on 05/04/20at 19:06; Start 05/04/20 at 19:15; Stop 05/04/20 at 19:16; Status DC Ceftriaxone Sodium (Rocephin) 1 gm 1X ONCE IVP Last administered on 05/04/20at 19:15; Start 05/04/20 at 19:15; Stop 05/04/20 at 19:16; Status DC Azithromycin 250 ml @ 250 mls/hr 1X ONCE IV Last administered on 05/04/20at 19:15; Start 05/04/20 at 19:15; Stop 05/04/20 at 20:14; Status DC Morphine Sulfate (Morphine Sulfate) 2 mg 1X ONCE IV ; Start 05/04/20 at 19:15; Stop 05/04/20 at 19:16; Status Cancel Lorazepam (Ativan Inj) 1 mg 1X ONCE IVP ; Start 05/04/20 at 19:15; Stop 05/04/20 at 19:16; Status Cancel Sodium Chloride 1,000 ml @ 1,000 mls/hr 1X ONCE IV Last administered on 05/04/20at 19:00; Start 05/04/20 at 20:00; Stop 05/04/20 at 20:59; Status DC Ondansetron HCl (Zofran) 4 mg PRN Q8HRS PRN IV NAUSEA/VOMITING; Start 05/04/20 at 20:00; Stop 05/05/20 at 19:59; Status DC Diltiazem HCl (Cardizem Iv Push) 20 mg 1X ONCE IVP ; Start 05/04/20 at 20:15; Stop 05/04/20 at 20:16; Status DC Albuterol Sulfate (Ventolin Hfa) 1 puff Q4H INH Last administered on 05/11/20at 03:00; Start 05/04/20 at 23:00; Stop 05/11/20 at 10:54; Status DC Aspirin (Aspirin Chewable) 81 mg DAILY PO Last administered on 05/15/20at 08:19; Start 05/05/20 at 09:00 Atorvastatin Calcium (Lipitor) 20 mg QHS PO Last administered on 05/14/20at 20:38; Start 05/05/20 at 21:00 Clopidogrel Bisulfate (Plavix) 75 mg DAILY PO Last administered on 05/15/20at 08:20; Start 05/05/20 at 09:00 Metoprolol Succinate (Toprol Xl) 25 mg DAILY PO Last administered on 05/07/20at 08:43; Start 05/05/20 at 09:00; Stop 05/07/20 at 16:55; Status DC Pantoprazole Sodium (Protonix) 40 mg DAILYAC PO Last administered on 05/15/20at 08:19; Start 05/05/20 at 11:30 Ceftriaxone Sodium (Rocephin) 1 gm Q24H IVP Last administered on 05/05/20at 15:32; Start 05/05/20 at 15:00; Stop 05/06/20 at 09:58; Status DC Azithromycin (Zithromax) 250 mg BID PO Last administered on 05/08/20at 08:30; Start 05/05/20 at 21:00; Stop 05/08/20 at 10:34; Status DC Furosemide (Lasix) 40 mg 1X ONCE IVP Last administered on 05/05/20at 17:35; Start 05/05/20 at 17:00; Stop 05/05/20 at 17:07; Status DC Acetaminophen (Tylenol) 650 mg PRN Q4HRS PRN PO fever and pain Last administered on 05/15/20at 01:15; Start 05/05/20 at 23:45 Cefepime HCl (Maxipime) 1 gm Q12HR IVP Last administered on 05/13/20at 09:02; Start 05/06/20 at 10:00; Stop 05/13/20 at 13:32; Status DC Vancomycin HCl (Vanco Per Pharmacy) 1 each PRN DAILY PRN MC SEE COMMENTS; Start 05/06/20 at 10:00; Stop 05/06/20 at 11:07; Status DC Vancomycin HCl 2 gm/Sodium Chloride 500 ml @ 250 mls/hr 1X ONCE IV ; Start 05/06/20 at 11:00; Stop 05/06/20 at 12:59; Status DC Artificial Tears (Artificial Tears) 1 drop PRN Q15MIN PRN OU DRY EYE Last administered on 05/13/20at 15:37; Start 05/06/20 at 12:45 Lactobacillus Rhamnosus (Culturelle) 1 cap BID PO Last administered on 05/15/20at 08:19; Start 05/06/20 at 13:00 Furosemide (Lasix) 40 mg 1X ONCE IVP Last administered on 05/06/20at 17:22; Start 05/06/20 at 13:45; Stop 05/06/20 at 13:47; Status DC Metoprolol Tartrate (Lopressor) 50 mg BID PO Last administered on 05/15/20at 08:20; Start 05/07/20 at 21:00 Heparin Sodium (Porcine) (Heparin Sodium) 5,000 unit Q8HRS SQ Last administered on 05/15/20at 05:43; Start 05/07/20 at 22:00 Linezolid (Zyvox) 600 mg BID PO Last administered on 05/15/20 08:19; Start 05/08/20 at 11:00 Guaifenesin (Mucinex) 600 mg BID PO Last administered on 05/15/20at 08:19; Start 05/10/20 at 14:00 Diphenhydramine HCl (Benadryl Oral Elixir) 12.5 mg 1X ONCE PO Last administered on 05/11/20at 00:27; Start 05/11/20 at 00:30; Stop 05/11/20 at 00:31; Status DC Albuterol/ Ipratropium (Duoneb) 3 ml RTQID NEB Last administered on 05/15/20at 07:07; Start 05/11/20 at 12:00 Budesonide (Pulmicort) 0.5 mg RTBID NEB Last administered on 05/15/20at 07:07; Start 05/11/20 at 11:00 Albuterol Sulfate (Ventolin Hfa) 1 puff PRN Q4HRS PRN INH SOA; Start 05/11/20 at 11:00 Lidocaine HCl (Buffered Lidocaine 1%) 3 ml STK-MED ONCE .ROUTE ; Start 05/12/20 at 14:51; Stop 05/12/20 at 14:51; Status DC Lidocaine HCl (Buffered Lidocaine 1%) 3 ml 1X ONCE IJ Last administered on 05/12/20at 15:30; Start 05/12/20 at 15:30; Stop 05/12/20 at 15:31; Status DC Sodium Chloride 500 ml @ 166.7 mls/ hr 1X ONCE IV Last administered on 05/12/20at 18:01; Start 05/12/20 at 17:45; Stop 05/12/20 at 20:44; Status DC Piperacillin Sod/ Tazobactam Sod 3.375 gm/Sodium Chloride 50 ml @ 100 mls/hr Q6HRS IV Last administered on 05/15/20at 05:35; Start 05/13/20 at 14:00 Alteplase, Recombinant 10 mg/ Miscellaneous 10 ml @ 20 mls/hr BID IPL Last administered on 05/15/20at 08:19; Start 05/14/20 at 11:30; Stop 05/16/20 at 21:29 Active Scripts Active Reported Metoprolol Succinate ( Xl ) (Metoprolol Succinate) 25 Mg Tab.er.24h 1 Tab PO DAILY Losartan Potassium 100 Mg Tablet 100 Mg PO DAILY Atorvastatin Calcium 20 Mg Tablet 1 Tab PO DAILY Clopidogrel (Clopidogrel Bisulfate) 75 Mg Tablet 1 Tab PO DAILY Flomax (Tamsulosin Hcl) 0.4 Mg Cap.er.24h 1 Cap PO DAILY Omeprazole 20 Mg Tablet.dr 1 Tab PO DAILY Vitamin B12 (Cyanocobalamin (Vitamin B-12)) 2,500 Mcg Tablet 1 Tab PO DAILY 30 Days Vitamin D3 (Cholecalciferol (Vitamin D3)) 10 Mcg Capsule 10 Mcg PO DAILY PRN Multi Vitamin Daily (Multivitamin) 1 Each Tablet 1 Tab PO DAILY 30 Days Aspirin 81 Mg Tab.chew 1 Tab PO DAILY Vitals/I & O Vital Sign - Last 24 Hours 05/14/20 05/14/20 05/14/20 05/14/20 11:14 12:18 15:00 15:57 Temp 98.1 98.1 98.1 98.1 Pulse 72 71 Resp 16 18 B/P (MAP) 118/60 (79) 119/63 (81) Pulse Ox 95 90 92 94 O2 Delivery Nasal Cannula Room Air Room Air Room Air O2 Flow Rate 3.0 05/14/20 05/14/20 05/14/20 05/14/20 19:00 19:55 20:00 20:02 Temp 98.2 98.2 Pulse 80 Resp 20 B/P (MAP) 101/57 (72) Pulse Ox 90 93 93 O2 Delivery Room Air Room Air Room Air Room Air 05/14/20 05/14/20 05/15/20 05/15/20 20:38 23:00 03:01 07:08 Temp 98.6 98.1 98.6 98.1 Pulse 80 102 111 Resp 20 20 B/P (MAP) 101/57 104/65 (78) 134/71 (92) Pulse Ox 91 95 95 O2 Delivery Room Air Room Air Room Air 05/15/20 05/15/20 05/15/20 07:15 08:00 08:20 Temp 98.5 98.5 Pulse 103 103 Resp 18 B/P (MAP) 138/62 (87) 138/62 Pulse Ox 90 O2 Delivery Room Air Room Air Intake and Output 05/14/20 05/14/20 05/15/20 15:00 23:00 07:00 Intake Total 120 ml 120 ml Output Total 450 ml 310 ml Balance 120 ml -330 ml -310 ml Justicifation of Admission Dx: Justifications for Admission: Justification of Admission Dx: Yes Aspiration Pneumonia: Hypoxemia ABIGAIL LIMON MD May 15, 2020 09:17
--- NOTE | 2020-05-15 09:52 | PDOC ---
PULMONARY PROGRESS NOTES Subjective Patient with no new complaints no chest pain no pressure no increasing shortness of breath s/p TPA via chest tube x 2. , 800 cc came out Vitals Vital Signs Date Time Temp Pulse Resp B/P (MAP) Pulse Ox O2 Delivery O2 Flow Rate FiO2 05/15/20 08:20 103 138/62 05/15/20 08:00 Room Air 05/15/20 07:15 98.5 18 90 98.5 05/14/20 11:14 3.0 ROS: No Nausea, No Chest Pain, No Abdominal Pain, No Increase Cough General: Alert, No acute distress Lungs: Crackles Cardiovascular: S1, S2 Abdomen: Soft Neuro Exam: Alert Extremities: No Edema Skin: Warm Labs Laboratory Tests Test 05/14/20 12:23 White Blood Count 23.3 x10^3/uL (4.0-11.0) Red Blood Count 3.59 x10^6/uL (4.30-5.70) Hemoglobin 10.9 g/dL (13.0-17.5) Hematocrit 32.5 % (39.0-53.0) Mean Corpuscular Volume 91 fL (79-100) Mean Corpuscular Hemoglobin 30 pg (25-35) Mean Corpuscular Hemoglobin Concent 34 g/dL (31-37) Red Cell Distribution Width 14.3 % (11.5-14.5) Platelet Count 451 x10^3/uL (140-400) Neutrophils (%) (Auto) 84 % (31-73) Lymphocytes (%) (Auto) 6 % (24-48) Monocytes (%) (Auto) 7 % (0-9) Eosinophils (%) (Auto) 2 % (0-3) Basophils (%) (Auto) 1 % (0-3) Neutrophils # (Auto) 19.6 x10^3/uL (1.8-7.7) Lymphocytes # (Auto) 1.4 x10^3/uL (1.0-4.8) Monocytes # (Auto) 1.7 x10^3/uL (0.0-1.1) Eosinophils # (Auto) 0.5 x10^3/uL (0.0-0.7) Basophils # (Auto) 0.1 x10^3/uL (0.0-0.2) Laboratory Tests Test 05/14/20 12:23 White Blood Count 23.3 x10^3/uL (4.0-11.0) Red Blood Count 3.59 x10^6/uL (4.30-5.70) Hemoglobin 10.9 g/dL (13.0-17.5) Hematocrit 32.5 % (39.0-53.0) Mean Corpuscular Volume 91 fL (79-100) Mean Corpuscular Hemoglobin 30 pg (25-35) Mean Corpuscular Hemoglobin Concent 34 g/dL (31-37) Red Cell Distribution Width 14.3 % (11.5-14.5) Platelet Count 451 x10^3/uL (140-400) Neutrophils (%) (Auto) 84 % (31-73) Lymphocytes (%) (Auto) 6 % (24-48) Monocytes (%) (Auto) 7 % (0-9) Eosinophils (%) (Auto) 2 % (0-3) Basophils (%) (Auto) 1 % (0-3) Neutrophils # (Auto) 19.6 x10^3/uL (1.8-7.7) Lymphocytes # (Auto) 1.4 x10^3/uL (1.0-4.8) Monocytes # (Auto) 1.7 x10^3/uL (0.0-1.1) Eosinophils # (Auto) 0.5 x10^3/uL (0.0-0.7) Basophils # (Auto) 0.1 x10^3/uL (0.0-0.2) Medications Active Scripts Medications Dose Route/Sig Max Daily Dose Days Date Category Metoprolol Succinate ( Xl ) (Metoprolol Succinate) 25 Mg Tab.er.24h 1 Tab PO DAILY 05/05/20 Reported Losartan Potassium 100 Mg Tablet 100 Mg PO DAILY 05/05/20 Reported Atorvastatin Calcium 20 Mg Tablet 1 Tab PO DAILY 05/05/20 Reported Clopidogrel (Clopidogrel Bisulfate) 75 Mg Tablet 1 Tab PO DAILY 05/05/20 Reported Flomax (Tamsulosin Hcl) 0.4 Mg Cap.er.24h 1 Cap PO DAILY 05/05/20 Reported Omeprazole 20 Mg Tablet.dr 1 Tab PO DAILY 05/05/20 Reported Vitamin B12 (Cyanocobalamin (Vitamin B-12)) 2,500 Mcg Tablet 1 Tab PO DAILY 30 05/05/20 Reported Vitamin D3 (Cholecalciferol (Vitamin D3)) 10 Mcg Capsule 10 Mcg PO DAILY PRN 05/05/20 Reported Multi Vitamin Daily (Multivitamin) 1 Each Tablet 1 Tab PO DAILY 30 05/05/20 Reported Aspirin 81 Mg Tab.chew 1 Tab PO DAILY 05/05/20 Reported Impression . 1. Abnormal CT chest revealing large and loculated right-sided effusion due to empyema. s/p right chest tube. s/p TPA 2. Fever. Pneumonia with complicated parapneumonic effusion/empyema 3. Progressive dyspnea secondary to above. 4. SARS-CoV-2 negative x 2. 5. Acute hypoxemic respiratory failure. CT-guided chest tube drain, 05/12 Impression: Multiloculated right pleural effusion. Ultrasound-guided thoracostomy tube placement Plan . s/p TPA X 2 . cxr no change but 800cc came out will repeat dose in am. CT reviewed loculated effusions , improved on f/u ct Discussed with Dr. Osborne, ANNIE So far cultures negative pH / glucose is low on the pleural fluid / cultures neg so far Abx per MELODY MUHAMMAD MD May 15, 2020 09:52
--- NOTE | 2020-05-15 10:29 | PDOC ---
Infectious Disease Note Subjective: Subjective Patient without complaints Denies worsening shortness of breath or cough Denies fever, nausea, vomiting, diarrhea, abdominal pain Vital Signs: Vital Signs Vital Signs Date Time Temp Pulse Resp B/P (MAP) Pulse Ox O2 Delivery O2 Flow Rate FiO2 05/15/20 08:20 103 138/62 05/15/20 08:00 Room Air 05/15/20 07:15 98.5 18 90 98.5 05/14/20 11:14 3.0 Physical Exam: PHYSICAL EXAM GENERAL: Propped up in bed, alert, looks better HEENT: Oral cavity dry NECK: Supple LUNGS: dec bs at bases HEART: S1, S2 ABDOMEN: Soft and nontender EXTREMITIES: No edema, cyanosis. SKIN: warm to touch NEUROLOGIC: Alert, appropriate. . Medications: Inpatient Meds: Current Medications Medications (Trade) Dose Ordered Sig/Zane Start Time Stop Time Status Last Admin Dose Admin Acetaminophen (Tylenol) 650 mg PRN Q4HRS PRN 05/05/20 23:45 05/15/20 01:15 650 MG Albuterol Sulfate (Ventolin Hfa) 1 puff PRN Q4HRS PRN 05/11/20 11:00 Albuterol/ Ipratropium (Duoneb) 3 ml RTQID 05/11/20 12:00 05/15/20 07:07 3 ML Alteplase, Recombinant 10 mg/ Lidocaine HCl 10 ml/Miscellaneous 60 ml @ 120 mls/hr 1X ONCE 05/16/20 09:00 05/16/20 09:29 Alteplase, Recombinant 10 mg/ Miscellaneous 10 ml @ 20 mls/hr BID 05/14/20 11:30 05/15/20 09:41 DC 05/15/20 08:19 20 MLS/HR Artificial Tears (Artificial Tears) 1 drop PRN Q15MIN PRN 05/06/20 12:45 05/13/20 15:37 1 DROP Aspirin (Aspirin Chewable) 81 mg DAILY 05/05/20 09:00 05/15/20 08:19 81 MG Atorvastatin Calcium (Lipitor) 20 mg QHS 05/05/20 21:00 05/14/20 20:38 20 MG Azithromycin (Zithromax) 250 mg BID 05/05/20 21:00 05/08/20 10:34 DC 05/08/20 08:30 250 MG Budesonide (Pulmicort) 0.5 mg RTBID 05/11/20 11:00 05/15/20 07:07 0.5 MG Cefepime HCl (Maxipime) 1 gm Q12HR 05/06/20 10:00 05/13/20 13:32 DC 05/13/20 09:02 1 GM Ceftriaxone Sodium (Rocephin) 1 gm Q24H 05/05/20 15:00 05/06/20 09:58 DC 05/05/20 15:32 1 GM Clopidogrel Bisulfate (Plavix) 75 mg DAILY 05/05/20 09:00 05/15/20 08:20 75 MG Diltiazem HCl (Cardizem Iv Push) 20 mg 1X ONCE 05/04/20 20:15 05/04/20 20:16 DC Diphenhydramine HCl (Benadryl Oral Elixir) 12.5 mg 1X ONCE 05/11/20 00:30 05/11/20 00:31 DC 05/11/20 00:27 12.5 MG Furosemide (Lasix) 40 mg 1X ONCE 05/06/20 13:45 05/06/20 13:47 DC 05/06/20 17:22 40 MG Guaifenesin (Mucinex) 600 mg BID 05/10/20 14:00 05/15/20 08:19 600 MG Heparin Sodium (Porcine) (Heparin Sodium) 5,000 unit Q8HRS 05/07/20 22:00 05/15/20 05:43 5,000 UNIT Lactobacillus Rhamnosus (Culturelle) 1 cap BID 05/06/20 13:00 05/15/20 08:19 1 CAP Lidocaine HCl (Buffered Lidocaine 1%) 3 ml 1X ONCE 05/12/20 15:30 05/12/20 15:31 DC 05/12/20 15:30 6 ML Linezolid (Zyvox) 600 mg BID 05/08/20 11:00 05/15/20 08:19 600 MG Lorazepam (Ativan Inj) 1 mg 1X ONCE 05/04/20 19:15 05/04/20 19:16 Cancel Metoprolol Succinate (Toprol Xl) 25 mg DAILY 05/05/20 09:00 05/07/20 16:55 DC 05/07/20 08:43 25 MG Metoprolol Tartrate (Lopressor) 50 mg BID 05/07/20 21:00 05/15/20 08:20 50 MG Morphine Sulfate (Morphine Sulfate) 2 mg 1X ONCE 05/04/20 19:15 05/04/20 19:16 Cancel Ondansetron HCl (Zofran) 4 mg PRN Q8HRS PRN 05/04/20 20:00 05/05/20 19:59 DC Pantoprazole Sodium (Protonix) 40 mg DAILYAC 05/05/20 11:30 05/15/20 08:19 40 MG Piperacillin Sod/ Tazobactam Sod 3.375 gm/Sodium Chloride 50 ml @ 100 mls/hr Q6HRS 05/13/20 14:00 05/15/20 05:35 100 MLS/HR Sodium Chloride 500 ml @ 166.7 mls/ hr 1X ONCE 05/12/20 17:45 05/12/20 20:44 DC 05/12/20 18:01 166.7 MLS/HR Vancomycin HCl (Vanco Per Pharmacy) 1 each PRN DAILY PRN 05/06/20 10:00 05/06/20 11:07 DC Vancomycin HCl 2 gm/Sodium Chloride 500 ml @ 250 mls/hr 1X ONCE 05/06/20 11:00 05/06/20 12:59 DC Labs: Lab Laboratory Tests Test 05/14/20 12:23 White Blood Count 23.3 x10^3/uL (4.0-11.0) Red Blood Count 3.59 x10^6/uL (4.30-5.70) Hemoglobin 10.9 g/dL (13.0-17.5) Hematocrit 32.5 % (39.0-53.0) Mean Corpuscular Volume 91 fL (79-100) Mean Corpuscular Hemoglobin 30 pg (25-35) Mean Corpuscular Hemoglobin Concent 34 g/dL (31-37) Red Cell Distribution Width 14.3 % (11.5-14.5) Platelet Count 451 x10^3/uL (140-400) Neutrophils (%) (Auto) 84 % (31-73) Lymphocytes (%) (Auto) 6 % (24-48) Monocytes (%) (Auto) 7 % (0-9) Eosinophils (%) (Auto) 2 % (0-3) Basophils (%) (Auto) 1 % (0-3) Neutrophils # (Auto) 19.6 x10^3/uL (1.8-7.7) Lymphocytes # (Auto) 1.4 x10^3/uL (1.0-4.8) Monocytes # (Auto) 1.7 x10^3/uL (0.0-1.1) Eosinophils # (Auto) 0.5 x10^3/uL (0.0-0.7) Basophils # (Auto) 0.1 x10^3/uL (0.0-0.2) Objective: Assessment: Fever pattern improved Parapneumonic effusion s/p drainage with TPA x2 Leucocytosis Renal insufficiency. Abn LFTs Atrial fibrillation. Suspected COVID-19. COVID 19 negative 05/04 and 05/06. Plan: Plan of Care Cont zosyn/ Zyvox off azithromycin F/U cults , pleural fluid Pulmonary team following monitor labs NED POWELL MD May 15, 2020 10:29
[2020-05-15 11:08] VITALS: BP 111/55
--- NOTE | 2020-05-15 12:15 | NUR ---
SW following. Spoke with RN and reviewed chart. Pt from home with but his dtr and/or son can come stay with him on discharge. Pt denied at [facility] as he does not meet criteria. Pt's daughter would like pt home with HH when stable. ALEXA completed Patient Choice of Vendor form for HH. ALEXA completed referral to [facility] with [facility] [place], , (fax). Pt remains on abx Zosyn and Zyvox. Pt down from 3l 02 to room air today. Pt may have an echo on 05/18. Pt still has a chest tube. Pt added to the potential weekend discharge list. ALEXA to continue following.
--- NOTE | 2020-05-15 12:23 | PDOC ---
CARDIO Progress Notes Date and Time Date of Service 05/15/2020 Time of Evaluation 1120 Subjective Subjective: No Chest Pain, No shortness of breath, No Palpitations, Other (dont feel good today, no pain) Vitals Vitals Vital Signs Date Time Temp Pulse Resp B/P (MAP) Pulse Ox O2 Delivery O2 Flow Rate FiO2 05/15/20 11:23 Room Air 05/15/20 11:08 98.2 78 18 111/55 (73) 92 98.2 05/14/20 11:14 3.0 Weight Weight [ ] Input and Output Intake and Output Intake and Output 05/15/20 07:00 Intake Total 240 ml Output Total 760 ml Balance -520 ml Intake Oral 240 ml Chest Tube Drainage Total 760 ml # Voids 6 # Bowel Movements 6 Laboratory Labs Laboratory Tests Test 05/14/20 12:23 White Blood Count 23.3 x10^3/uL (4.0-11.0) Red Blood Count 3.59 x10^6/uL (4.30-5.70) Hemoglobin 10.9 g/dL (13.0-17.5) Hematocrit 32.5 % (39.0-53.0) Mean Corpuscular Volume 91 fL (79-100) Mean Corpuscular Hemoglobin 30 pg (25-35) Mean Corpuscular Hemoglobin Concent 34 g/dL (31-37) Red Cell Distribution Width 14.3 % (11.5-14.5) Platelet Count 451 x10^3/uL (140-400) Neutrophils (%) (Auto) 84 % (31-73) Lymphocytes (%) (Auto) 6 % (24-48) Monocytes (%) (Auto) 7 % (0-9) Eosinophils (%) (Auto) 2 % (0-3) Basophils (%) (Auto) 1 % (0-3) Neutrophils # (Auto) 19.6 x10^3/uL (1.8-7.7) Lymphocytes # (Auto) 1.4 x10^3/uL (1.0-4.8) Monocytes # (Auto) 1.7 x10^3/uL (0.0-1.1) Eosinophils # (Auto) 0.5 x10^3/uL (0.0-0.7) Basophils # (Auto) 0.1 x10^3/uL (0.0-0.2) Microbiology Micro Microbiology 05/12/20 Gram Stain - Final, Resulted 05/12/20 Aerobic and Anaerobic Culture - Preliminary, Resulted 05/06/20 Blood Culture - Final, Complete NO GROWTH AFTER 5 DAYS Physical Exam HEENT: Neck Supple W Full Motion Chest: Symmetric LUNGS: Other (diminsihed, chest tubes in place with serosanguinous drain) Heart: RRR Abdomen: Soft N/T Extremities: No Edema Neurology: alert, oriented, follow commands Assessment Assessment 1. Acute hypoxic respiratory failure secondary to PNA/empyema. COVID negative x2. right chest tube in place. pulmonary following. 2. Leukocytosis, fevers 3. HERBER: resolved 5. Mild troponin elevation; highest 0.2. Most probably type II, demand ischemic in setting of above. CP free. EF and WM nml 6. Hypertension; controlled 7. Hyperlipidemia; statin 8. PSVT; on metoprolol for rate control. No tele currently but no palpitations with regular rhythm 9. H/o CVA; on ASA/Plavix Recommendations Continue metoprolol, ASA, statin therapy Continue antibiotic therapy as per ID and pulmonary Follow up in office and will consider for outpt MPI. Justicifation of Admission Dx: Justifications for Admission: Justification of Admission Dx: Yes Aspiration Pneumonia: Hypoxemia DON BRASHER SWITCHER May 15, 2020 12:23
[2020-05-15 13:39] LABS: BASO # 0.1 x10^3/uL (0.0-0.2); BASO % 0 % (0-3); EOS # 0.4 x10^3/uL (0.0-0.7); EOS % 2 % (0-3); HEMATOCRIT 32.7 % (39.0-53.0); HEMOGLOBIN 11.1 g/dL (13.0-17.5); LYMPH # 1.4 x10^3/uL (1.0-4.8); LYMPH % 6 % (24-48); MEAN CORPUSCULAR HEMOGLOBIN 31 pg (25-35); MEAN CORPUSCULAR HGB CONC 34 g/dL (31-37); MEAN CORPUSCULAR VOLUME 92 fL (79-100); MONO # 1.9 x10^3/uL (0.0-1.1); MONO % 8 % (0-9); NEUT # 20.7 x10^3/uL (1.8-7.7); NEUT % 85 % (31-73); PLATELET COUNT 495 x10^3/uL (140-400); RED BLOOD COUNT 3.56 x10^6/uL (4.30-5.70); RED CELL DISTRIBUTION WIDTH 14.1 % (11.5-14.5); WHITE BLOOD COUNT 24.3 x10^3/uL (4.0-11.0)
[2020-05-15 14:09] LABS: % BANDS 2 % (0-9); % EOS 2 % (0-5); % LYMPHS 10 % (24-48); % MONOS 5 % (0-10); % SEGS 81 % (35-66); PLT ESTIMATE INCREASED (ADEQUATE)
[2020-05-15 14:10] LABS: TOXIC GRANULATION MOD
[2020-05-15 15:15] VITALS: BP 120/52
[2020-05-15 19:00] VITALS: BP 115/56
[2020-05-15] MEDS: ATORVASTATIN CALCIUM 20 MG TABLET PO SCH (21:34)
[2020-05-15 23:03] VITALS: BP 116/63
[2020-05-16] MEDS: PIPERACILLIN/TAZOBACTAM 3.375 GM in IV NORMAL SALINE 50ML 50 ML IV SCH ×4 (00:04→17:39)
[2020-05-16 03:00] VITALS: BP 120/57
[2020-05-16] MEDS: HEPARIN for SUB-Q USE 5,000 UNIT/ML VIAL. SQ SCH ×3 (06:16→22:10)
[2020-05-16 06:39] LABS: BASO # 0.1 x10^3/uL (0.0-0.2); BASO % 1 % (0-3); EOS # 0.5 x10^3/uL (0.0-0.7); EOS % 2 % (0-3); HEMATOCRIT 33.3 % (39.0-53.0); HEMOGLOBIN 11.1 g/dL (13.0-17.5); LYMPH % 9 % (24-48); MEAN CORPUSCULAR HEMOGLOBIN 30 pg (25-35); MEAN CORPUSCULAR HGB CONC 33 g/dL (31-37); MEAN CORPUSCULAR VOLUME 91 fL (79-100); MONO # 1.8 x10^3/uL (0.0-1.1); MONO % 8 % (0-9); NEUT # 17.7 x10^3/uL (1.8-7.7); NEUT % 81 % (31-73); PLATELET COUNT 487 x10^3/uL (140-400); RED BLOOD COUNT 3.65 x10^6/uL (4.30-5.70); RED CELL DISTRIBUTION WIDTH 14.2 % (11.5-14.5)
[2020-05-16] MEDS: IPRATRPIUM/ALBUTEROL 0.5/2.5MG 3 ML NEBU. NEB SCH ×4 (07:24→19:18)
[2020-05-16] MEDS: BUDESONIDE 0.5 MG/2 ML NEBU. NEB SCH ×2 (07:24→19:18)
[2020-05-16 07:59] VITALS: BP 103/57
--- NOTE | 2020-05-16 08:21 | PDOC ---
Infectious Disease Note Subjective: Subjective Patient without complaints Denies fever, nausea, vomiting, worsening shortness of breath, diarrhea, abdominal pain Vital Signs: Vital Signs Vital Signs Date Time Temp Pulse Resp B/P (MAP) Pulse Ox O2 Delivery O2 Flow Rate FiO2 05/16/20 07:25 94 Room Air 05/16/20 03:00 98.3 70 120/57 (78) 98.3 05/15/20 23:03 20 Physical Exam: PHYSICAL EXAM GENERAL: Propped up in bed, alert awake HEENT: Oral cavity dry NECK: Supple LUNGS: dec bs at bases, right chest drain present HEART: S1, S2 ABDOMEN: Soft and nontender EXTREMITIES: No edema, cyanosis. SKIN: warm to touch NEUROLOGIC: Alert, appropriate. . Medications: Inpatient Meds: Current Medications Medications (Trade) Dose Ordered Sig/Zane Start Time Stop Time Status Last Admin Dose Admin Acetaminophen (Tylenol) 650 mg PRN Q4HRS PRN 05/05/20 23:45 05/15/20 01:15 650 MG Albuterol Sulfate (Ventolin Hfa) 1 puff PRN Q4HRS PRN 05/11/20 11:00 Albuterol/ Ipratropium (Duoneb) 3 ml RTQID 05/11/20 12:00 05/16/20 07:24 3 ML Alteplase, Recombinant 10 mg/ Lidocaine HCl 10 ml/Miscellaneous 60 ml @ 120 mls/hr 1X ONCE 05/16/20 09:00 05/16/20 09:29 Alteplase, Recombinant 10 mg/ Miscellaneous 10 ml @ 20 mls/hr BID 05/14/20 11:30 05/15/20 09:41 DC 05/15/20 08:19 20 MLS/HR Artificial Tears (Artificial Tears) 1 drop PRN Q15MIN PRN 05/06/20 12:45 05/13/20 15:37 1 DROP Aspirin (Aspirin Chewable) 81 mg DAILY 05/05/20 09:00 05/15/20 08:19 81 MG Atorvastatin Calcium (Lipitor) 20 mg QHS 05/05/20 21:00 05/15/20 21:34 20 MG Azithromycin (Zithromax) 250 mg BID 05/05/20 21:00 05/08/20 10:34 DC 05/08/20 08:30 250 MG Budesonide (Pulmicort) 0.5 mg RTBID 05/11/20 11:00 05/16/20 07:24 0.5 MG Cefepime HCl (Maxipime) 1 gm Q12HR 05/06/20 10:00 05/13/20 13:32 DC 05/13/20 09:02 1 GM Ceftriaxone Sodium (Rocephin) 1 gm Q24H 05/05/20 15:00 05/06/20 09:58 DC 05/05/20 15:32 1 GM Clopidogrel Bisulfate (Plavix) 75 mg DAILY 05/05/20 09:00 05/15/20 08:20 75 MG Diltiazem HCl (Cardizem Iv Push) 20 mg 1X ONCE 05/04/20 20:15 05/04/20 20:16 DC Diphenhydramine HCl (Benadryl Oral Elixir) 12.5 mg 1X ONCE 05/11/20 00:30 05/11/20 00:31 DC 05/11/20 00:27 12.5 MG Furosemide (Lasix) 40 mg 1X ONCE 05/06/20 13:45 05/06/20 13:47 DC 05/06/20 17:22 40 MG Guaifenesin (Mucinex) 600 mg BID 05/10/20 14:00 05/15/20 21:34 600 MG Heparin Sodium (Porcine) (Heparin Sodium) 5,000 unit Q8HRS 05/07/20 22:00 05/16/20 06:16 5,000 UNIT Lactobacillus Rhamnosus (Culturelle) 1 cap BID 05/06/20 13:00 05/15/20 21:33 1 CAP Lidocaine HCl (Buffered Lidocaine 1%) 3 ml 1X ONCE 05/12/20 15:30 05/12/20 15:31 DC 05/12/20 15:30 6 ML Linezolid (Zyvox) 600 mg BID 05/08/20 11:00 05/15/20 21:34 600 MG Lorazepam (Ativan Inj) 1 mg 1X ONCE 05/04/20 19:15 05/04/20 19:16 Cancel Metoprolol Succinate (Toprol Xl) 25 mg DAILY 05/05/20 09:00 05/07/20 16:55 DC 05/07/20 08:43 25 MG Metoprolol Tartrate (Lopressor) 50 mg BID 05/07/20 21:00 05/15/20 21:34 50 MG Morphine Sulfate (Morphine Sulfate) 2 mg 1X ONCE 05/04/20 19:15 05/04/20 19:16 Cancel Ondansetron HCl (Zofran) 4 mg PRN Q8HRS PRN 05/04/20 20:00 05/05/20 19:59 DC Pantoprazole Sodium (Protonix) 40 mg DAILYAC 05/05/20 11:30 05/15/20 08:19 40 MG Piperacillin Sod/ Tazobactam Sod 3.375 gm/Sodium Chloride 50 ml @ 100 mls/hr Q6HRS 05/13/20 14:00 05/16/20 06:11 100 MLS/HR Sodium Chloride 500 ml @ 166.7 mls/ hr 1X ONCE 05/12/20 17:45 05/12/20 20:44 DC 05/12/20 18:01 166.7 MLS/HR Vancomycin HCl (Vanco Per Pharmacy) 1 each PRN DAILY PRN 05/06/20 10:00 05/06/20 11:07 DC Vancomycin HCl 2 gm/Sodium Chloride 500 ml @ 250 mls/hr 1X ONCE 05/06/20 11:00 05/06/20 12:59 DC Labs: Lab Laboratory Tests Test 05/15/20 13:10 05/16/20 06:30 White Blood Count 24.3 x10^3/uL (4.0-11.0) 22.0 x10^3/uL (4.0-11.0) Red Blood Count 3.56 x10^6/uL (4.30-5.70) 3.65 x10^6/uL (4.30-5.70) Hemoglobin 11.1 g/dL (13.0-17.5) 11.1 g/dL (13.0-17.5) Hematocrit 32.7 % (39.0-53.0) 33.3 % (39.0-53.0) Mean Corpuscular Volume 92 fL (79-100) 91 fL (79-100) Mean Corpuscular Hemoglobin 31 pg (25-35) 30 pg (25-35) Mean Corpuscular Hemoglobin Concent 34 g/dL (31-37) 33 g/dL (31-37) Red Cell Distribution Width 14.1 % (11.5-14.5) 14.2 % (11.5-14.5) Platelet Count 495 x10^3/uL (140-400) 487 x10^3/uL (140-400) Neutrophils (%) (Auto) 85 % (31-73) 81 % (31-73) Lymphocytes (%) (Auto) 6 % (24-48) 9 % (24-48) Monocytes (%) (Auto) 8 % (0-9) 8 % (0-9) Eosinophils (%) (Auto) 2 % (0-3) 2 % (0-3) Basophils (%) (Auto) 0 % (0-3) 1 % (0-3) Neutrophils # (Auto) 20.7 x10^3/uL (1.8-7.7) 17.7 x10^3/uL (1.8-7.7) Lymphocytes # (Auto) 1.4 x10^3/uL (1.0-4.8) 2.0 x10^3/uL (1.0-4.8) Monocytes # (Auto) 1.9 x10^3/uL (0.0-1.1) 1.8 x10^3/uL (0.0-1.1) Eosinophils # (Auto) 0.4 x10^3/uL (0.0-0.7) 0.5 x10^3/uL (0.0-0.7) Basophils # (Auto) 0.1 x10^3/uL (0.0-0.2) 0.1 x10^3/uL (0.0-0.2) Segmented Neutrophils % 81 % (35-66) Band Neutrophils % 2 % (0-9) Lymphocytes % 10 % (24-48) Monocytes % 5 % (0-10) Eosinophils % 2 % (0-5) Toxic Granulation Mod Platelet Estimate Increased (ADEQUATE) Objective: Assessment: Fever pattern improved Parapneumonic effusion s/p drainage with TPA x2 Leucocytosis Renal insufficiency. Abn LFTs Atrial fibrillation. COVID-19 negative x2 Plan: Plan of Care s/p TPA 05/16 Cont zosyn/ Zyvox off azithromycin F/U cults , pleural fluid Pulmonary team following monitor labs POWELL,ARUNDHATI S MD May 16, 2020 08:21
--- NOTE | 2020-05-16 08:45 | RAD ---
EXAM: CHEST 1 VIEW History: Empyema COMPARISON: 05/15/2020 TECHNIQUE: Single portable radiograph of the chest FINDINGS: The cardiac silhouette is unremarkable. Right lung base pigtail catheter is unchanged. Right lower lobe lung consolidation likely pneumonia or atelectasis with small right pleural effusions unchanged. IMPRESSION: Unchanged exam Electronically signed by: Mg Dillon MD (05/16/2020 8:42 AM) [id number]
[2020-05-16] MEDS ORDERED: ALTEPLASE IPL ONE (09:00)
[2020-05-16] MEDS ORDERED: LIDOCAINE 1% IPL ONE (09:00)
[2020-05-16] MEDS ORDERED: [UNRECOGNIZED DRUG - OTHER] IPL ONE (09:00)
[2020-05-16] MEDS: LACTOBACILLUS RHAMNOSUS GG 1 CAPSULE. PO SCH ×2 (09:29→22:03)
[2020-05-16] MEDS: CLOPIDOGREL BISULFATE 75 MG TABLET PO SCH (09:29)
[2020-05-16] MEDS: ASPIRIN CHEWABLE 81 MG TABLET. PO SCH (09:29)
[2020-05-16] MEDS: METOPROLOL TART IMMED RELEASE 50 MG TABLET. PO SCH ×2 (09:31→22:04)
[2020-05-16] MEDS: LINEZOLID 600 MG TABLET PO SCH ×2 (09:31→22:03)
[2020-05-16] MEDS: PANTOPRAZOLE 40 MG TABLET.DR. PO SCH (09:31)
--- NOTE | 2020-05-16 09:37 | PDOC ---
PULMONARY PROGRESS NOTES Subjective Patient with no new complaints no chest pain no pressure no increasing shortness of breath s/p TPA via chest tube x 2. , another 450 cc came out Vitals Vital Signs Date Time Temp Pulse Resp B/P (MAP) Pulse Ox O2 Delivery O2 Flow Rate FiO2 05/16/20 09:31 108 103/57 05/16/20 07:59 98.1 18 94 Room Air 98.1 ROS: No Nausea, No Chest Pain, No Abdominal Pain, No Increase Cough General: Alert, No acute distress Lungs: Crackles Cardiovascular: S1, S2 Abdomen: Soft Neuro Exam: Alert Extremities: No Edema Skin: Warm Labs Laboratory Tests Test 05/14/20 12:22 05/14/20 12:23 05/15/20 13:10 05/16/20 06:30 Prostate Specific Antigen 1.59 ng/mL (0.00-4.00) White Blood Count 23.3 x10^3/uL (4.0-11.0) 24.3 x10^3/uL (4.0-11.0) 22.0 x10^3/uL (4.0-11.0) Red Blood Count 3.59 x10^6/uL (4.30-5.70) 3.56 x10^6/uL (4.30-5.70) 3.65 x10^6/uL (4.30-5.70) Hemoglobin 10.9 g/dL (13.0-17.5) 11.1 g/dL (13.0-17.5) 11.1 g/dL (13.0-17.5) Hematocrit 32.5 % (39.0-53.0) 32.7 % (39.0-53.0) 33.3 % (39.0-53.0) Mean Corpuscular Volume 91 fL (79-100) 92 fL (79-100) 91 fL (79-100) Mean Corpuscular Hemoglobin 30 pg (25-35) 31 pg (25-35) 30 pg (25-35) Mean Corpuscular Hemoglobin Concent 34 g/dL (31-37) 34 g/dL (31-37) 33 g/dL (31-37) Red Cell Distribution Width 14.3 % (11.5-14.5) 14.1 % (11.5-14.5) 14.2 % (11.5-14.5) Platelet Count 451 x10^3/uL (140-400) 495 x10^3/uL (140-400) 487 x10^3/uL (140-400) Neutrophils (%) (Auto) 84 % (31-73) 85 % (31-73) 81 % (31-73) Lymphocytes (%) (Auto) 6 % (24-48) 6 % (24-48) 9 % (24-48) Monocytes (%) (Auto) 7 % (0-9) 8 % (0-9) 8 % (0-9) Eosinophils (%) (Auto) 2 % (0-3) 2 % (0-3) 2 % (0-3) Basophils (%) (Auto) 1 % (0-3) 0 % (0-3) 1 % (0-3) Neutrophils # (Auto) 19.6 x10^3/uL (1.8-7.7) 20.7 x10^3/uL (1.8-7.7) 17.7 x10^3/uL (1.8-7.7) Lymphocytes # (Auto) 1.4 x10^3/uL (1.0-4.8) 1.4 x10^3/uL (1.0-4.8) 2.0 x10^3/uL (1.0-4.8) Monocytes # (Auto) 1.7 x10^3/uL (0.0-1.1) 1.9 x10^3/uL (0.0-1.1) 1.8 x10^3/uL (0.0-1.1) Eosinophils # (Auto) 0.5 x10^3/uL (0.0-0.7) 0.4 x10^3/uL (0.0-0.7) 0.5 x10^3/uL (0.0-0.7) Basophils # (Auto) 0.1 x10^3/uL (0.0-0.2) 0.1 x10^3/uL (0.0-0.2) 0.1 x10^3/uL (0.0-0.2) Segmented Neutrophils % 81 % (35-66) Band Neutrophils % 2 % (0-9) Lymphocytes % 10 % (24-48) Monocytes % 5 % (0-10) Eosinophils % 2 % (0-5) Toxic Granulation Mod Platelet Estimate Increased (ADEQUATE) Laboratory Tests Test 05/15/20 13:10 05/16/20 06:30 White Blood Count 24.3 x10^3/uL (4.0-11.0) 22.0 x10^3/uL (4.0-11.0) Red Blood Count 3.56 x10^6/uL (4.30-5.70) 3.65 x10^6/uL (4.30-5.70) Hemoglobin 11.1 g/dL (13.0-17.5) 11.1 g/dL (13.0-17.5) Hematocrit 32.7 % (39.0-53.0) 33.3 % (39.0-53.0) Mean Corpuscular Volume 92 fL (79-100) 91 fL (79-100) Mean Corpuscular Hemoglobin 31 pg (25-35) 30 pg (25-35) Mean Corpuscular Hemoglobin Concent 34 g/dL (31-37) 33 g/dL (31-37) Red Cell Distribution Width 14.1 % (11.5-14.5) 14.2 % (11.5-14.5) Platelet Count 495 x10^3/uL (140-400) 487 x10^3/uL (140-400) Neutrophils (%) (Auto) 85 % (31-73) 81 % (31-73) Lymphocytes (%) (Auto) 6 % (24-48) 9 % (24-48) Monocytes (%) (Auto) 8 % (0-9) 8 % (0-9) Eosinophils (%) (Auto) 2 % (0-3) 2 % (0-3) Basophils (%) (Auto) 0 % (0-3) 1 % (0-3) Neutrophils # (Auto) 20.7 x10^3/uL (1.8-7.7) 17.7 x10^3/uL (1.8-7.7) Lymphocytes # (Auto) 1.4 x10^3/uL (1.0-4.8) 2.0 x10^3/uL (1.0-4.8) Monocytes # (Auto) 1.9 x10^3/uL (0.0-1.1) 1.8 x10^3/uL (0.0-1.1) Eosinophils # (Auto) 0.4 x10^3/uL (0.0-0.7) 0.5 x10^3/uL (0.0-0.7) Basophils # (Auto) 0.1 x10^3/uL (0.0-0.2) 0.1 x10^3/uL (0.0-0.2) Segmented Neutrophils % 81 % (35-66) Band Neutrophils % 2 % (0-9) Lymphocytes % 10 % (24-48) Monocytes % 5 % (0-10) Eosinophils % 2 % (0-5) Toxic Granulation Mod Platelet Estimate Increased (ADEQUATE) Medications Active Scripts Medications Dose Route/Sig Max Daily Dose Days Date Category Metoprolol Succinate ( Xl ) (Metoprolol Succinate) 25 Mg Tab.er.24h 1 Tab PO DAILY 05/05/20 Reported Losartan Potassium 100 Mg Tablet 100 Mg PO DAILY 05/05/20 Reported Atorvastatin Calcium 20 Mg Tablet 1 Tab PO DAILY 05/05/20 Reported Clopidogrel (Clopidogrel Bisulfate) 75 Mg Tablet 1 Tab PO DAILY 05/05/20 Reported Flomax (Tamsulosin Hcl) 0.4 Mg Cap.er.24h 1 Cap PO DAILY 05/05/20 Reported Omeprazole 20 Mg Tablet.dr 1 Tab PO DAILY 05/05/20 Reported Vitamin B12 (Cyanocobalamin (Vitamin B-12)) 2,500 Mcg Tablet 1 Tab PO DAILY 30 05/05/20 Reported Vitamin D3 (Cholecalciferol (Vitamin D3)) 10 Mcg Capsule 10 Mcg PO DAILY PRN 05/05/20 Reported Multi Vitamin Daily (Multivitamin) 1 Each Tablet 1 Tab PO DAILY 30 05/05/20 Reported Aspirin 81 Mg Tab.chew 1 Tab PO DAILY 05/05/20 Reported Comments cxr 05/16 improving right effusion Impression . 1. Abnormal CT chest revealing large and loculated right-sided effusion due to empyema. s/p right chest tube. s/p TPA 2. Fever. Pneumonia with complicated parapneumonic effusion/empyema,improved 3. Progressive dyspnea secondary to above. stable 4. SARS-CoV-2 negative x 2. 5. Acute hypoxemic respiratory failure. CT-guided chest tube drain, 05/12 Impression: Multiloculated right pleural effusion. Ultrasound-guided thoracostomy tube placement Plan . s/p TPA X 3 . cxr improving . another 450c came out will repeat dose today CT reviewed loculated effusions , improved on f/u ct, repeat ct Monday Discussed with Dr. Osborne, So far cultures negative pH / glucose is low on the pleural fluid / cultures neg so far Abx per ID MELODY CURRIE MD May 16, 2020 09:37
[2020-05-16 10:21] VITALS: BP 123/58
[2020-05-16] MEDS: ACETAMINOPHEN 325 MG TABLET. PO PRN (13:31)
--- NOTE | 2020-05-16 13:58 | PDOC ---
PROGRESS NOTES Chief Complaint Chief Complaint A/P: Acute respiratory distress secondary to pneumonia Pneumonia - likely gram negative given improvement with cefepime Empyema - with chest tube and TPA intracatheter Troponin elevation possibly related to demand ischemia CKD unknown stage Atrial fibrillationstable Hypertension COVID ruled out Plan: tpa through the tube today x3 reassurance provided Patient to continue with supportive measures. Cont antibiotics reassess in the am Disposition: may need placement given advanced age and prolongued hospital stay. History of Present Illness History of Present Illness Mr Rey is a 84-year-old male with past medical history of hypertension, A. fib, CVA, who presents to the ED with complaints of shortness of breath and fevers of 103. He was claimed to be saturating at 86% on 6 L nasal cannula with EMS. Patient also stated that he had some cough and associated chest pain. Denies any nausea vomiting, abdominal pain, diarrhea. 05/06: Patient had a fever overnight of 101.4. No acute events overnight. Patient is tolerating diet. Repeat chest x-ray shows worsening pleural effusion. Patient is saturating well 9 L. 05/07: No acute events overnight. Patient seen and examined bedside today. Patient is tolerating diet and saturating 97% on 9 L nasal cannula. 05/08: No acute events overnight. Patient did have a fever 100.1, but no major overnight events. Patient is sitting up in bed and compensating well. COVID tested is negative x2 05/09: No acute events overnight. Patient seen and examined bedside today. Patient has been afebrile for 24 hours. Tolerating diet and did have a bowel movement 2 days ago. 05/10: Tele showed 12 beats of V. tach. Asymptomatic at this time. Cardiology was consulted. Patient endorses yellow sputum production and forced cough. 101F 05/11: Afebrile. Still on 3 L nasal cannula oxygen. He is feeling weak. Still with shortness of breath his cough is weak. 05/12: Febrile to 100.3 F, on 3 L nasal cannulated oxygen. Still with productive cough. CT chest obtained with large right pleural effusion, lo culated. IR placed chest tube. 05/13: Afebrile overnight. Off O2. Pain at chest tube site. Cough is dry no longer productive. 05/14: Patient seems to be doing better, patient denies fever or chills, patient plan of care discussed in detail All concerns addressed to the best of my abilities. 05/15 800cc out of chest tube after initial tPA instillation on 05/14/2020. instilled this morning and drained. Still with slight cough, off O2. 05/16: Patient with no complaints during my visit. Patient feels well and is hoping to be discharged soon, I have explained the need to continue with tpa infusion through the tube. he acknowledged understanding Vitals Vitals Vital Signs Date Time Temp Pulse Resp B/P (MAP) Pulse Ox O2 Delivery O2 Flow Rate FiO2 05/16/20 10:21 97.7 78 18 123/58 (79) 95 Room Air 97.7 Physical Exam Physical Exam GENERAL: Propped up in bed, alert awake HEENT: Oral cavity dry NECK: Supple LUNGS: dec bs at bases, right chest drain present HEART: S1, S2 ABDOMEN: Soft and nontender EXTREMITIES: No edema, cyanosis. SKIN: warm to touch NEUROLOGIC: Alert, appropriate. . General: Alert, Oriented X3, Cooperative, No acute distress Heart: Regular rate Lungs: Crackles Abdomen: Soft Extremities: Other (trace bilateral LE edema) Skin: No significant lesion Labs LABS Laboratory Tests Test 05/16/20 06:30 White Blood Count 22.0 x10^3/uL (4.0-11.0) Red Blood Count 3.65 x10^6/uL (4.30-5.70) Hemoglobin 11.1 g/dL (13.0-17.5) Hematocrit 33.3 % (39.0-53.0) Mean Corpuscular Volume 91 fL (79-100) Mean Corpuscular Hemoglobin 30 pg (25-35) Mean Corpuscular Hemoglobin Concent 33 g/dL (31-37) Red Cell Distribution Width 14.2 % (11.5-14.5) Platelet Count 487 x10^3/uL (140-400) Neutrophils (%) (Auto) 81 % (31-73) Lymphocytes (%) (Auto) 9 % (24-48) Monocytes (%) (Auto) 8 % (0-9) Eosinophils (%) (Auto) 2 % (0-3) Basophils (%) (Auto) 1 % (0-3) Neutrophils # (Auto) 17.7 x10^3/uL (1.8-7.7) Lymphocytes # (Auto) 2.0 x10^3/uL (1.0-4.8) Monocytes # (Auto) 1.8 x10^3/uL (0.0-1.1) Eosinophils # (Auto) 0.5 x10^3/uL (0.0-0.7) Basophils # (Auto) 0.1 x10^3/uL (0.0-0.2) Review of Systems Review of Systems Pertinent as per hpi otherwise 10 point review of system negative. Assessment and Plan Assessmemt and Plan Problems Medical Problems: (1) Fever Status: Acute (2) Hypoxia Status: Acute (3) Person under investigation for COVID-19 Status: Acute Comment Review of Relevant I have reviewed the following items timoteo (where applicable) has been applied. Labs Laboratory Tests Test 05/15/20 13:10 05/16/20 06:30 White Blood Count 24.3 x10^3/uL (4.0-11.0) 22.0 x10^3/uL (4.0-11.0) Red Blood Count 3.56 x10^6/uL (4.30-5.70) 3.65 x10^6/uL (4.30-5.70) Hemoglobin 11.1 g/dL (13.0-17.5) 11.1 g/dL (13.0-17.5) Hematocrit 32.7 % (39.0-53.0) 33.3 % (39.0-53.0) Mean Corpuscular Volume 92 fL (79-100) 91 fL (79-100) Mean Corpuscular Hemoglobin 31 pg (25-35) 30 pg (25-35) Mean Corpuscular Hemoglobin Concent 34 g/dL (31-37) 33 g/dL (31-37) Red Cell Distribution Width 14.1 % (11.5-14.5) 14.2 % (11.5-14.5) Platelet Count 495 x10^3/uL (140-400) 487 x10^3/uL (140-400) Neutrophils (%) (Auto) 85 % (31-73) 81 % (31-73) Lymphocytes (%) (Auto) 6 % (24-48) 9 % (24-48) Monocytes (%) (Auto) 8 % (0-9) 8 % (0-9) Eosinophils (%) (Auto) 2 % (0-3) 2 % (0-3) Basophils (%) (Auto) 0 % (0-3) 1 % (0-3) Neutrophils # (Auto) 20.7 x10^3/uL (1.8-7.7) 17.7 x10^3/uL (1.8-7.7) Lymphocytes # (Auto) 1.4 x10^3/uL (1.0-4.8) 2.0 x10^3/uL (1.0-4.8) Monocytes # (Auto) 1.9 x10^3/uL (0.0-1.1) 1.8 x10^3/uL (0.0-1.1) Eosinophils # (Auto) 0.4 x10^3/uL (0.0-0.7) 0.5 x10^3/uL (0.0-0.7) Basophils # (Auto) 0.1 x10^3/uL (0.0-0.2) 0.1 x10^3/uL (0.0-0.2) Segmented Neutrophils % 81 % (35-66) Band Neutrophils % 2 % (0-9) Lymphocytes % 10 % (24-48) Monocytes % 5 % (0-10) Eosinophils % 2 % (0-5) Toxic Granulation Mod Platelet Estimate Increased (ADEQUATE) Laboratory Tests Test 05/16/20 06:30 White Blood Count 22.0 x10^3/uL (4.0-11.0) Red Blood Count 3.65 x10^6/uL (4.30-5.70) Hemoglobin 11.1 g/dL (13.0-17.5) Hematocrit 33.3 % (39.0-53.0) Mean Corpuscular Volume 91 fL (79-100) Mean Corpuscular Hemoglobin 30 pg (25-35) Mean Corpuscular Hemoglobin Concent 33 g/dL (31-37) Red Cell Distribution Width 14.2 % (11.5-14.5) Platelet Count 487 x10^3/uL (140-400) Neutrophils (%) (Auto) 81 % (31-73) Lymphocytes (%) (Auto) 9 % (24-48) Monocytes (%) (Auto) 8 % (0-9) Eosinophils (%) (Auto) 2 % (0-3) Basophils (%) (Auto) 1 % (0-3) Neutrophils # (Auto) 17.7 x10^3/uL (1.8-7.7) Lymphocytes # (Auto) 2.0 x10^3/uL (1.0-4.8) Monocytes # (Auto) 1.8 x10^3/uL (0.0-1.1) Eosinophils # (Auto) 0.5 x10^3/uL (0.0-0.7) Basophils # (Auto) 0.1 x10^3/uL (0.0-0.2) Microbiology 05/12/20 Gram Stain - Final, Resulted 05/12/20 Aerobic and Anaerobic Culture - Preliminary, Resulted 05/06/20 Blood Culture - Final, Complete NO GROWTH AFTER 5 DAYS Medications Current Medications Acetaminophen (Tylenol) 1,000 mg 1X ONCE PO Last administered on 05/04/20at 19:06; Start 05/04/20 at 19:15; Stop 05/04/20 at 19:16; Status DC Ceftriaxone Sodium (Rocephin) 1 gm 1X ONCE IVP Last administered on 05/04/20at 19:15; Start 05/04/20 at 19:15; Stop 05/04/20 at 19:16; Status DC Azithromycin 250 ml @ 250 mls/hr 1X ONCE IV Last administered on 05/04/20at 19:15; Start 05/04/20 at 19:15; Stop 05/04/20 at 20:14; Status DC Morphine Sulfate (Morphine Sulfate) 2 mg 1X ONCE IV ; Start 05/04/20 at 19:15; Stop 05/04/20 at 19:16; Status Cancel Lorazepam (Ativan Inj) 1 mg 1X ONCE IVP ; Start 05/04/20 at 19:15; Stop 05/04/20 at 19:16; Status Cancel Sodium Chloride 1,000 ml @ 1,000 mls/hr 1X ONCE IV Last administered on 05/04/20at 19:00; Start 05/04/20 at 20:00; Stop 05/04/20 at 20:59; Status DC Ondansetron HCl (Zofran) 4 mg PRN Q8HRS PRN IV NAUSEA/VOMITING; Start 05/04/20 at 20:00; Stop 05/05/20 at 19:59; Status DC Diltiazem HCl (Cardizem Iv Push) 20 mg 1X ONCE IVP ; Start 05/04/20 at 20:15; Stop 05/04/20 at 20:16; Status DC Albuterol Sulfate (Ventolin Hfa) 1 puff Q4H INH Last administered on 05/11/20 03:00; Start 05/04/20 at 23:00; Stop 05/11/20 at 10:54; Status DC Aspirin (Aspirin Chewable) 81 mg DAILY PO Last administered on 05/16/20 09:29; Start 05/05/20 at 09:00 Atorvastatin Calcium (Lipitor) 20 mg QHS PO Last administered on 05/15/20 21:34; Start 05/05/20 at 21:00 Clopidogrel Bisulfate (Plavix) 75 mg DAILY PO Last administered on 05/16/20 09:29; Start 05/05/20 at 09:00 Metoprolol Succinate (Toprol Xl) 25 mg DAILY PO Last administered on 05/07/20at 08:43; Start 05/05/20 at 09:00; Stop 05/07/20 at 16:55; Status DC Pantoprazole Sodium (Protonix) 40 mg DAILYAC PO Last administered on 05/16/20 09:31; Start 05/05/20 at 11:30 Ceftriaxone Sodium (Rocephin) 1 gm Q24H IVP Last administered on 05/05/20at 15:32; Start 05/05/20 at 15:00; Stop 05/06/20 at 09:58; Status DC Azithromycin (Zithromax) 250 mg BID PO Last administered on 05/08/20 08:30; Start 05/05/20 at 21:00; Stop 05/08/20 at 10:34; Status DC Furosemide (Lasix) 40 mg 1X ONCE IVP Last administered on 05/05/20at 17:35; Start 05/05/20 at 17:00; Stop 05/05/20 at 17:07; Status DC Acetaminophen (Tylenol) 650 mg PRN Q4HRS PRN PO fever and pain Last administered on 05/15/20at 01:15; Start 05/05/20 at 23:45 Cefepime HCl (Maxipime) 1 gm Q12HR IVP Last administered on 05/13/20at 09:02; Start 05/06/20 at 10:00; Stop 05/13/20 at 13:32; Status DC Vancomycin HCl (Vanco Per Pharmacy) 1 each PRN DAILY PRN MC SEE COMMENTS; Start 05/06/20 at 10:00; Stop 05/06/20 at 11:07; Status DC Vancomycin HCl 2 gm/Sodium Chloride 500 ml @ 250 mls/hr 1X ONCE IV ; Start 05/06/20 at 11:00; Stop 05/06/20 at 12:59; Status DC Artificial Tears (Artificial Tears) 1 drop PRN Q15MIN PRN OU DRY EYE Last administered on 05/13/20at 15:37; Start 05/06/20 at 12:45 Lactobacillus Rhamnosus (Culturelle) 1 cap BID PO Last administered on 05/16/20at 09:29; Start 05/06/20 at 13:00 Furosemide (Lasix) 40 mg 1X ONCE IVP Last administered on 05/06/20at 17:22; Start 05/06/20 at 13:45; Stop 05/06/20 at 13:47; Status DC Metoprolol Tartrate (Lopressor) 50 mg BID PO Last administered on 05/16/20 09:31; Start 05/07/20 at 21:00 Heparin Sodium (Porcine) (Heparin Sodium) 5,000 unit Q8HRS SQ Last administered on 05/16/20at 06:16; Start 05/07/20 at 22:00 Linezolid (Zyvox) 600 mg BID PO Last administered on 05/16/20 09:31; Start 05/08/20 at 11:00 Guaifenesin (Mucinex) 600 mg BID PO Last administered on 05/16/20 09:29; Start 05/10/20 at 14:00 Diphenhydramine HCl (Benadryl Oral Elixir) 12.5 mg 1X ONCE PO Last administered on 05/11/20at 00:27; Start 05/11/20 at 00:30; Stop 05/11/20 at 00:31; Status DC Albuterol/ Ipratropium (Duoneb) 3 ml RTQID NEB Last administered on 05/16/20at 07:24; Start 05/11/20 at 12:00 Budesonide (Pulmicort) 0.5 mg RTBID NEB Last administered on 05/16/20at 07:24; Start 05/11/20 at 11:00 Albuterol Sulfate (Ventolin Hfa) 1 puff PRN Q4HRS PRN INH SOA; Start 05/11/20 at 11:00 Lidocaine HCl (Buffered Lidocaine 1%) 3 ml STK-MED ONCE .ROUTE ; Start 05/12/20 at 14:51; Stop 05/12/20 at 14:51; Status DC Lidocaine HCl (Buffered Lidocaine 1%) 3 ml 1X ONCE IJ Last administered on 05/12/20at 15:30; Start 05/12/20 at 15:30; Stop 05/12/20 at 15:31; Status DC Sodium Chloride 500 ml @ 166.7 mls/ hr 1X ONCE IV Last administered on 05/12/20at 18:01; Start 05/12/20 at 17:45; Stop 05/12/20 at 20:44; Status DC Piperacillin Sod/ Tazobactam Sod 3.375 gm/Sodium Chloride 50 ml @ 100 mls/hr Q6HRS IV Last administered on 05/16/20at 06:11; Start 05/13/20 at 14:00 Alteplase, Recombinant 10 mg/ Miscellaneous 10 ml @ 20 mls/hr BID IPL Last administered on 05/15/20at 08:19; Start 05/14/20 at 11:30; Stop 05/15/20 at 09:41; Status DC Alteplase, Recombinant 10 mg/ Lidocaine HCl 10 ml/Miscellaneous 60 ml @ 120 mls/hr 1X ONCE IPL Last administered on 05/16/20at 09:15; Start 05/16/20 at 09:00; Stop 05/16/20 at 09:29; Status DC Active Scripts Active Reported Metoprolol Succinate ( Xl ) (Metoprolol Succinate) 25 Mg Tab.er.24h 1 Tab PO DAILY Losartan Potassium 100 Mg Tablet 100 Mg PO DAILY Atorvastatin Calcium 20 Mg Tablet 1 Tab PO DAILY Clopidogrel (Clopidogrel Bisulfate) 75 Mg Tablet 1 Tab PO DAILY Flomax (Tamsulosin Hcl) 0.4 Mg Cap.er.24h 1 Cap PO DAILY Omeprazole 20 Mg Tablet.dr 1 Tab PO DAILY Vitamin B12 (Cyanocobalamin (Vitamin B-12)) 2,500 Mcg Tablet 1 Tab PO DAILY 30 Days Vitamin D3 (Cholecalciferol (Vitamin D3)) 10 Mcg Capsule 10 Mcg PO DAILY PRN Multi Vitamin Daily (Multivitamin) 1 Each Tablet 1 Tab PO DAILY 30 Days Aspirin 81 Mg Tab.chew 1 Tab PO DAILY Vitals/I & O Vital Sign - Last 24 Hours 05/15/20 05/15/20 05/15/20 05/15/20 15:15 15:15 19:00 19:49 Temp 98.3 98.4 98.3 98.4 Pulse 79 87 Resp 18 20 B/P (MAP) 120/52 (74) 115/56 (75) Pulse Ox 92 95 O2 Delivery Room Air Room Air Room Air Room Air 05/15/20 05/15/20 05/15/20 05/15/20 19:50 20:00 21:34 23:03 Temp 98.0 98.0 Pulse 87 88 Resp 20 B/P (MAP) 115/56 116/63 (80) Pulse Ox 90 O2 Delivery Room Air Room Air Room Air 05/16/20 05/16/20 05/16/20 05/16/20 03:00 07:25 07:59 09:31 Temp 98.3 98.1 98.3 98.1 Pulse 70 108 108 Resp 18 B/P (MAP) 120/57 (78) 103/57 (72) 103/57 Pulse Ox 96 94 94 O2 Delivery Room Air Room Air Room Air 05/16/20 10:21 Temp 97.7 97.7 Pulse 78 Resp 18 B/P (MAP) 123/58 (79) Pulse Ox 95 O2 Delivery Room Air Intake and Output 05/15/20 05/15/20 05/16/20 15:00 23:00 07:00 Intake Total 200 ml 400 ml Output Total 300 ml Balance 200 ml 100 ml Justicifation of Admission Dx: Justifications for Admission: Justification of Admission Dx: Yes Aspiration Pneumonia: Hypoxemia SARAH PATEL MD May 16, 2020 13:58
[2020-05-16 15:02] VITALS: BP 110/54
[2020-05-16 19:00] VITALS: BP 113/54
[2020-05-16] MEDS: ATORVASTATIN CALCIUM 20 MG TABLET PO SCH (22:03)
[2020-05-16 23:00] VITALS: BP 132/63
[2020-05-17] MEDS: PIPERACILLIN/TAZOBACTAM 3.375 GM in IV NORMAL SALINE 50ML 50 ML IV SCH ×4 (00:15→18:00)
[2020-05-17 03:01] VITALS: BP 125/59
[2020-05-17] MEDS: HEPARIN for SUB-Q USE 5,000 UNIT/ML VIAL. SQ SCH ×3 (05:45→21:32)
--- NOTE | 2020-05-17 07:12 | RAD ---
Chest AP portable at 0627: Reason for examination: Empyema. Comparison is made to previous study dated 05/16/2020. The heart size is normal. Mediastinum is unremarkable. Lung leigh continue show infiltrates and a pleural effusion at the right lung base with catheter present. Left lung field is clear. No acute bony abnormality is seen. IMPRESSION: Persistent infiltrates at the right lung base and small right pleural effusion with catheter in place. Electronically signed by: Ade Celaya MD (05/17/2020 7:09 AM) [id number]
[2020-05-17] MEDS: IPRATRPIUM/ALBUTEROL 0.5/2.5MG 3 ML NEBU. NEB SCH ×4 (07:21→20:37)
[2020-05-17] MEDS: BUDESONIDE 0.5 MG/2 ML NEBU. NEB SCH ×2 (07:21→20:37)
[2020-05-17 07:59] VITALS: BP 112/55
[2020-05-17] MEDS: LACTOBACILLUS RHAMNOSUS GG 1 CAPSULE. PO SCH ×2 (08:41→20:45)
[2020-05-17] MEDS: CLOPIDOGREL BISULFATE 75 MG TABLET PO SCH (08:41)
[2020-05-17] MEDS: ASPIRIN CHEWABLE 81 MG TABLET. PO SCH (08:41)
[2020-05-17] MEDS: PANTOPRAZOLE 40 MG TABLET.DR. PO SCH (08:42)
[2020-05-17] MEDS: LINEZOLID 600 MG TABLET PO SCH ×2 (08:42→20:45)
[2020-05-17] MEDS: METOPROLOL TART IMMED RELEASE 50 MG TABLET. PO SCH ×2 (08:42→20:45)
--- NOTE | 2020-05-17 08:50 | PDOC ---
Infectious Disease Note Subjective: Subjective Patient without complaints He is feels little better today Has diarrhea which he attributes to stool softener Denies fever, nausea, vomiting, worsening shortness of breath, abdominal pain Vital Signs: Vital Signs Vital Signs Date Time Temp Pulse Resp B/P (MAP) Pulse Ox O2 Delivery O2 Flow Rate FiO2 05/17/20 08:42 78 125/59 05/17/20 07:21 94 Room Air 05/17/20 03:01 98.6 18 98.6 Physical Exam: PHYSICAL EXAM GENERAL: Propped up in bed, alert awake HEENT: Oral cavity dry NECK: Supple LUNGS: dec bs at bases, right chest drain present HEART: S1, S2 ABDOMEN: Soft and nontender EXTREMITIES: No edema, cyanosis. SKIN: warm to touch NEUROLOGIC: Alert, appropriate. . Medications: Inpatient Meds: Current Medications Medications (Trade) Dose Ordered Sig/Zane Start Time Stop Time Status Last Admin Dose Admin Acetaminophen (Tylenol) 650 mg PRN Q4HRS PRN 05/05/20 23:45 05/16/20 13:31 650 MG Albuterol Sulfate (Ventolin Hfa) 1 puff PRN Q4HRS PRN 05/11/20 11:00 Albuterol/ Ipratropium (Duoneb) 3 ml RTQID 05/11/20 12:00 05/17/20 07:21 3 ML Alteplase, Recombinant 10 mg/ Lidocaine HCl 10 ml/Miscellaneous 60 ml @ 120 mls/hr 1X ONCE 05/16/20 09:00 05/16/20 09:29 DC 05/16/20 09:15 120 MLS/HR Alteplase, Recombinant 10 mg/ Miscellaneous 10 ml @ 20 mls/hr BID 05/14/20 11:30 05/15/20 09:41 DC 05/15/20 08:19 20 MLS/HR Artificial Tears (Artificial Tears) 1 drop PRN Q15MIN PRN 05/06/20 12:45 05/13/20 15:37 1 DROP Aspirin (Aspirin Chewable) 81 mg DAILY 05/05/20 09:00 05/17/20 08:41 81 MG Atorvastatin Calcium (Lipitor) 20 mg QHS 05/05/20 21:00 05/16/20 22:03 20 MG Azithromycin (Zithromax) 250 mg BID 05/05/20 21:00 05/08/20 10:34 DC 05/08/20 08:30 250 MG Budesonide (Pulmicort) 0.5 mg RTBID 05/11/20 11:00 05/17/20 07:21 0.5 MG Cefepime HCl (Maxipime) 1 gm Q12HR 05/06/20 10:00 05/13/20 13:32 DC 05/13/20 09:02 1 GM Ceftriaxone Sodium (Rocephin) 1 gm Q24H 05/05/20 15:00 05/06/20 09:58 DC 05/05/20 15:32 1 GM Clopidogrel Bisulfate (Plavix) 75 mg DAILY 05/05/20 09:00 05/17/20 08:41 75 MG Diltiazem HCl (Cardizem Iv Push) 20 mg 1X ONCE 05/04/20 20:15 05/04/20 20:16 DC Diphenhydramine HCl (Benadryl Oral Elixir) 12.5 mg 1X ONCE 05/11/20 00:30 05/11/20 00:31 DC 05/11/20 00:27 12.5 MG Furosemide (Lasix) 40 mg 1X ONCE 05/06/20 13:45 05/06/20 13:47 DC 05/06/20 17:22 40 MG Guaifenesin (Mucinex) 600 mg BID 05/10/20 14:00 05/17/20 08:42 600 MG Heparin Sodium (Porcine) (Heparin Sodium) 5,000 unit Q8HRS 05/07/20 22:00 05/17/20 05:45 5,000 UNIT Lactobacillus Rhamnosus (Culturelle) 1 cap BID 05/06/20 13:00 05/17/20 08:41 1 CAP Lidocaine HCl (Buffered Lidocaine 1%) 3 ml 1X ONCE 05/12/20 15:30 05/12/20 15:31 DC 05/12/20 15:30 6 ML Linezolid (Zyvox) 600 mg BID 05/08/20 11:00 05/17/20 08:42 600 MG Lorazepam (Ativan Inj) 1 mg 1X ONCE 05/04/20 19:15 05/04/20 19:16 Cancel Metoprolol Succinate (Toprol Xl) 25 mg DAILY 05/05/20 09:00 05/07/20 16:55 DC 05/07/20 08:43 25 MG Metoprolol Tartrate (Lopressor) 50 mg BID 05/07/20 21:00 05/17/20 08:42 50 MG Morphine Sulfate (Morphine Sulfate) 2 mg 1X ONCE 05/04/20 19:15 05/04/20 19:16 Cancel Ondansetron HCl (Zofran) 4 mg PRN Q8HRS PRN 05/04/20 20:00 05/05/20 19:59 DC Pantoprazole Sodium (Protonix) 40 mg DAILYAC 05/05/20 11:30 05/17/20 08:42 40 MG Piperacillin Sod/ Tazobactam Sod 3.375 gm/Sodium Chloride 50 ml @ 100 mls/hr Q6HRS 05/13/20 14:00 05/17/20 05:40 100 MLS/HR Sodium Chloride 500 ml @ 166.7 mls/ hr 1X ONCE 05/12/20 17:45 05/12/20 20:44 DC 05/12/20 18:01 166.7 MLS/HR Vancomycin HCl (Vanco Per Pharmacy) 1 each PRN DAILY PRN 05/06/20 10:00 05/06/20 11:07 DC Vancomycin HCl 2 gm/Sodium Chloride 500 ml @ 250 mls/hr 1X ONCE 05/06/20 11:00 05/06/20 12:59 DC Objective: Assessment: Fever pattern improved Parapneumonic effusion s/p drainage with TPA x2 Leucocytosis Renal insufficiency. Abn LFTs Atrial fibrillation. COVID-19 negative x2 Diarrhea Plan: Plan of Care Cont zosyn/ Zyvox s/p TPA 05/16 Check C. difficile if diarrhea continues F/U cults , pleural fluid cultures remain negative monitor labs NED POWELL MD May 17, 2020 08:50
--- NOTE | 2020-05-17 10:05 | OP ---
DATE OF SURGERY: PROCEDURE: TPA via chest tube. The patient was informed about repeating the dose today. A 10 mg of TPA mixed with 50 mL of sterile water and 10 mL of 1% lidocaine was mixed and a [facility]er-[employer] syringe. TPA was introduced into the right chest tube. The patient tolerated the procedure well. Chest tube will be clamped for 1 hour and will be placed back to suction. We will monitor the chest tube output. MELODY CURRIE MD DR: SAMY/genaro JOB#: [id number] / [id number]
--- NOTE | 2020-05-17 10:49 | PDOC ---
PULMONARY PROGRESS NOTES Subjective Patient with no new complaints no chest pain no pressure no increasing shortness of breath s/p TPA via chest tube x 4. , Vitals Vital Signs Date Time Temp Pulse Resp B/P (MAP) Pulse Ox O2 Delivery O2 Flow Rate FiO2 05/17/20 08:42 78 125/59 05/17/20 07:59 97.3 18 92 Room Air 97.3 ROS: No Nausea, No Chest Pain, No Abdominal Pain, No Increase Cough General: Alert, No acute distress Lungs: Crackles Cardiovascular: S1, S2 Abdomen: Soft Neuro Exam: Alert Extremities: No Edema Skin: Warm Labs Laboratory Tests Test 05/15/20 13:10 05/16/20 06:30 White Blood Count 24.3 x10^3/uL (4.0-11.0) 22.0 x10^3/uL (4.0-11.0) Red Blood Count 3.56 x10^6/uL (4.30-5.70) 3.65 x10^6/uL (4.30-5.70) Hemoglobin 11.1 g/dL (13.0-17.5) 11.1 g/dL (13.0-17.5) Hematocrit 32.7 % (39.0-53.0) 33.3 % (39.0-53.0) Mean Corpuscular Volume 92 fL (79-100) 91 fL (79-100) Mean Corpuscular Hemoglobin 31 pg (25-35) 30 pg (25-35) Mean Corpuscular Hemoglobin Concent 34 g/dL (31-37) 33 g/dL (31-37) Red Cell Distribution Width 14.1 % (11.5-14.5) 14.2 % (11.5-14.5) Platelet Count 495 x10^3/uL (140-400) 487 x10^3/uL (140-400) Neutrophils (%) (Auto) 85 % (31-73) 81 % (31-73) Lymphocytes (%) (Auto) 6 % (24-48) 9 % (24-48) Monocytes (%) (Auto) 8 % (0-9) 8 % (0-9) Eosinophils (%) (Auto) 2 % (0-3) 2 % (0-3) Basophils (%) (Auto) 0 % (0-3) 1 % (0-3) Neutrophils # (Auto) 20.7 x10^3/uL (1.8-7.7) 17.7 x10^3/uL (1.8-7.7) Lymphocytes # (Auto) 1.4 x10^3/uL (1.0-4.8) 2.0 x10^3/uL (1.0-4.8) Monocytes # (Auto) 1.9 x10^3/uL (0.0-1.1) 1.8 x10^3/uL (0.0-1.1) Eosinophils # (Auto) 0.4 x10^3/uL (0.0-0.7) 0.5 x10^3/uL (0.0-0.7) Basophils # (Auto) 0.1 x10^3/uL (0.0-0.2) 0.1 x10^3/uL (0.0-0.2) Segmented Neutrophils % 81 % (35-66) Band Neutrophils % 2 % (0-9) Lymphocytes % 10 % (24-48) Monocytes % 5 % (0-10) Eosinophils % 2 % (0-5) Toxic Granulation Mod Platelet Estimate Increased (ADEQUATE) Medications Active Scripts Medications Dose Route/Sig Max Daily Dose Days Date Category Metoprolol Succinate ( Xl ) (Metoprolol Succinate) 25 Mg Tab.er.24h 1 Tab PO DAILY 05/05/20 Reported Losartan Potassium 100 Mg Tablet 100 Mg PO DAILY 05/05/20 Reported Atorvastatin Calcium 20 Mg Tablet 1 Tab PO DAILY 05/05/20 Reported Clopidogrel (Clopidogrel Bisulfate) 75 Mg Tablet 1 Tab PO DAILY 05/05/20 Reported Flomax (Tamsulosin Hcl) 0.4 Mg Cap.er.24h 1 Cap PO DAILY 05/05/20 Reported Omeprazole 20 Mg Tablet.dr 1 Tab PO DAILY 05/05/20 Reported Vitamin B12 (Cyanocobalamin (Vitamin B-12)) 2,500 Mcg Tablet 1 Tab PO DAILY 05/05/20 Reported Vitamin D3 (Cholecalciferol (Vitamin D3)) 10 Mcg Capsule 10 Mcg PO DAILY PRN 05/05/20 Reported Multi Vitamin Daily (Multivitamin) 1 Each Tablet 1 Tab PO DAILY 30 05/05/20 Reported Aspirin 81 Mg Tab.chew 1 Tab PO DAILY 05/05/20 Reported Comments cxr 05/17 improving right effusion Impression . 1. Abnormal CT chest revealing large and loculated right-sided effusion due to empyema. s/p right chest tube. s/p TPA 2. Fever. Pneumonia with complicated parapneumonic effusion/empyema,improved 3. Progressive dyspnea secondary to above. stable 4. SARS-CoV-2 negative x 2. 5. Acute hypoxemic respiratory failure. CT-guided chest tube drain, 05/12 Impression: Multiloculated right pleural effusion. Ultrasound-guided thoracostomy tube placement Plan . s/p TPA X 4 . cxr improving .ALMOST RESOLUTION OF RIGHT EFFUSION. will repeat CT Chest today. no further TPA CT reviewed loculated effusions , improved on f/u ct, Discussed with Dr. Osborne, So far cultures negative pH / glucose is low on the pleural fluid / cultures neg so far Abx per MELODY MUHAMMAD MD May 17, 2020 10:49
[2020-05-17 11:59] VITALS: BP 131/56
--- NOTE | 2020-05-17 14:53 | PDOC ---
PROGRESS NOTES Chief Complaint Chief Complaint A/P: Acute respiratory distress secondary to pneumonia Pneumonia - likely gram negative given improvement with cefepime Empyema - with chest tube and TPA intracatheter Troponin elevation possibly related to demand ischemia CKD unknown stage Atrial fibrillationstable Hypertension COVID ruled out Plan: tpa through the tube x3 reassurance provided Patient to continue with supportive measures. Cont antibiotics Follow cultures and recommendations from ID tax consultant reassess in the am Disposition: may need placement given advanced age and prolongued hospital stay. Patient quite motivated to go home but given his prolonged hospital stay this may be needed reevaluated History of Present Illness History of Present Illness Mr Rey is a 84-year-old male with past medical history of hypertension, A. fib, CVA, who presents to the ED with complaints of shortness of breath and fevers of 103. He was claimed to be saturating at 86% on 6 L nasal cannula with EMS. Patient also stated that he had some cough and associated chest pain. Denies any nausea vomiting, abdominal pain, diarrhea. 05/06: Patient had a fever overnight of 101.4. No acute events overnight. Patient is tolerating diet. Repeat chest x-ray shows worsening pleural effusion. Patient is saturating well 9 L. 05/07: No acute events overnight. Patient seen and examined bedside today. Patient is tolerating diet and saturating 97% on 9 L nasal cannula. 05/08: No acute events overnight. Patient did have a fever 100.1, but no major overnight events. Patient is sitting up in bed and compensating well. COVID tested is negative x2 05/09: No acute events overnight. Patient seen and examined bedside today. Patient has been afebrile for 24 hours. Tolerating diet and did have a bowel movement 2 days ago. 05/10: Tele showed 12 beats of V. tach. Asymptomatic at this time. Cardiology was consulted. Patient endorses yellow sputum production and forced cough. 101F 05/11: Afebrile. Still on 3 L nasal cannula oxygen. He is feeling weak. Still with shortness of breath his cough is weak. 05/12: Febrile to 100.3 F, on 3 L nasal cannulated oxygen. Still with productive cough. CT chest obtained with large right pleural effusion, loculated. IR placed chest tube. 05/13: Afebrile overnight. Off O2. Pain at chest tube site. Cough is dry no longer productive. 05/14: Patient seems to be doing better, patient denies fever or chills, patient plan of care discussed in detail All concerns addressed to the best of my abilities. 05/15 800cc out of chest tube after initial tPA instillation on 05/14/2020. instilled this morning and drained. Still with slight cough, off O2. 05/16: Patient with no complaints during my visit. Patient feels well and is hoping to be discharged soon, I have explained the need to continue with tpa infusion through the tube. he acknowledged understanding Vitals Vitals Vital Signs Date Time Temp Pulse Resp B/P (MAP) Pulse Ox O2 Delivery O2 Flow Rate FiO2 05/17/20 11:59 97.3 59 18 131/56 (81) 94 Room Air 97.3 05/17/20 08:00 2.0 Physical Exam Physical Exam GENERAL: Propped up in bed, alert awake HEENT: Oral cavity dry NECK: Supple LUNGS: dec bs at bases, right chest drain present HEART: S1, S2 ABDOMEN: Soft and nontender EXTREMITIES: No edema, cyanosis. SKIN: warm to touch NEUROLOGIC: Alert, appropriate. . General: Alert, Oriented X3, Cooperative, No acute distress Heart: Regular rate Lungs: Crackles Abdomen: Soft Extremities: Other (trace bilateral LE edema) Skin: No significant lesion Assessment and Plan Assessmemt and Plan Problems Medical Problems: (1) Fever Status: Acute (2) Hypoxia Status: Acute (3) Person under investigation for COVID-19 Status: Acute Comment Review of Relevant I have reviewed the following items timoteo (where applicable) has been applied. Labs Laboratory Tests Test 05/16/20 06:30 White Blood Count 22.0 x10^3/uL (4.0-11.0) Red Blood Count 3.65 x10^6/uL (4.30-5.70) Hemoglobin 11.1 g/dL (13.0-17.5) Hematocrit 33.3 % (39.0-53.0) Mean Corpuscular Volume 91 fL (79-100) Mean Corpuscular Hemoglobin 30 pg (25-35) Mean Corpuscular Hemoglobin Concent 33 g/dL (31-37) Red Cell Distribution Width 14.2 % (11.5-14.5) Platelet Count 487 x10^3/uL (140-400) Neutrophils (%) (Auto) 81 % (31-73) Lymphocytes (%) (Auto) 9 % (24-48) Monocytes (%) (Auto) 8 % (0-9) Eosinophils (%) (Auto) 2 % (0-3) Basophils (%) (Auto) 1 % (0-3) Neutrophils # (Auto) 17.7 x10^3/uL (1.8-7.7) Lymphocytes # (Auto) 2.0 x10^3/uL (1.0-4.8) Monocytes # (Auto) 1.8 x10^3/uL (0.0-1.1) Eosinophils # (Auto) 0.5 x10^3/uL (0.0-0.7) Basophils # (Auto) 0.1 x10^3/uL (0.0-0.2) Microbiology 05/12/20 Gram Stain - Final, Resulted 05/12/20 Aerobic and Anaerobic Culture - Preliminary, Resulted 05/06/20 Blood Culture - Final, Complete NO GROWTH AFTER 5 DAYS Medications Current Medications Acetaminophen (Tylenol) 1,000 mg 1X ONCE PO Last administered on 05/04/20at 19:06; Start 05/04/20 at 19:15; Stop 05/04/20 at 19:16; Status DC Ceftriaxone Sodium (Rocephin) 1 gm 1X ONCE IVP Last administered on 05/04/20at 19:15; Start 05/04/20 at 19:15; Stop 05/04/20 at 19:16; Status DC Azithromycin 250 ml @ 250 mls/hr 1X ONCE IV Last administered on 05/04/20at 19:15; Start 05/04/20 at 19:15; Stop 05/04/20 at 20:14; Status DC Morphine Sulfate (Morphine Sulfate) 2 mg 1X ONCE IV ; Start 05/04/20 at 19:15; Stop 05/04/20 at 19:16; Status Cancel Lorazepam (Ativan Inj) 1 mg 1X ONCE IVP ; Start 05/04/20 at 19:15; Stop 05/04/20 at 19:16; Status Cancel Sodium Chloride 1,000 ml @ 1,000 mls/hr 1X ONCE IV Last administered on 05/04/20at 19:00; Start 05/04/20 at 20:00; Stop 05/04/20 at 20:59; Status DC Ondansetron HCl (Zofran) 4 mg PRN Q8HRS PRN IV NAUSEA/VOMITING; Start 05/04/20 at 20:00; Stop 05/05/20 at 19:59; Status DC Diltiazem HCl (Cardizem Iv Push) 20 mg 1X ONCE IVP ; Start 05/04/20 at 20:15; Stop 05/04/20 at 20:16; Status DC Albuterol Sulfate (Ventolin Hfa) 1 puff Q4H INH Last administered on 05/11/20at 03:00; Start 05/04/20 at 23:00; Stop 05/11/20 at 10:54; Status DC Aspirin (Aspirin Chewable) 81 mg DAILY PO Last administered on 05/17/20at 08:41; Start 05/05/20 at 09:00 Atorvastatin Calcium (Lipitor) 20 mg QHS PO Last administered on 05/16/20at 22:03; Start 05/05/20 at 21:00 Clopidogrel Bisulfate (Plavix) 75 mg DAILY PO Last administered on 05/17/20at 08:41; Start 05/05/20 at 09:00 Metoprolol Succinate (Toprol Xl) 25 mg DAILY PO Last administered on 05/07/20at 08:43; Start 05/05/20 at 09:00; Stop 05/07/20 at 16:55; Status DC Pantoprazole Sodium (Protonix) 40 mg DAILYAC PO Last administered on 05/17/20at 08:42; Start 05/05/20 at 11:30 Ceftriaxone Sodium (Rocephin) 1 gm Q24H IVP Last administered on 05/05/20at 15:32; Start 05/05/20 at 15:00; Stop 05/06/20 at 09:58; Status DC Azithromycin (Zithromax) 250 mg BID PO Last administered on 05/08/20at 08:30; Start 05/05/20 at 21:00; Stop 05/08/20 at 10:34; Status DC Furosemide (Lasix) 40 mg 1X ONCE IVP Last administered on 05/05/20at 17:35; Start 05/05/20 at 17:00; Stop 05/05/20 at 17:07; Status DC Acetaminophen (Tylenol) 650 mg PRN Q4HRS PRN PO fever and pain Last administered on 05/16/20at 13:31; Start 05/05/20 at 23:45 Cefepime HCl (Maxipime) 1 gm Q12HR IVP Last administered on 05/13/20at 09:02; Start 05/06/20 at 10:00; Stop 05/13/20 at 13:32; Status DC Vancomycin HCl (Vanco Per Pharmacy) 1 each PRN DAILY PRN MC SEE COMMENTS; Start 05/06/20 at 10:00; Stop 05/06/20 at 11:07; Status DC Vancomycin HCl 2 gm/Sodium Chloride 500 ml @ 250 mls/hr 1X ONCE IV ; Start 05/06/20 at 11:00; Stop 05/06/20 at 12:59; Status DC Artificial Tears (Artificial Tears) 1 drop PRN Q15MIN PRN OU DRY EYE Last administered on 05/13/20at 15:37; Start 05/06/20 at 12:45 Lactobacillus Rhamnosus (Culturelle) 1 cap BID PO Last administered on 05/17/20at 08:41; Start 05/06/20 at 13:00 Furosemide (Lasix) 40 mg 1X ONCE IVP Last administered on 05/06/20at 17:22; Start 05/06/20 at 13:45; Stop 05/06/20 at 13:47; Status DC Metoprolol Tartrate (Lopressor) 50 mg BID PO Last administered on 05/17/20at 08:42; Start 05/07/20 at 21:00 Heparin Sodium (Porcine) (Heparin Sodium) 5,000 unit Q8HRS SQ Last administered on 05/17/20at 14:05; Start 05/07/20 at 22:00 Linezolid (Zyvox) 600 mg BID PO Last administered on 05/17/20at 08:42; Start 05/08/20 at 11:00 Guaifenesin (Mucinex) 600 mg BID PO Last administered on 05/17/20at 08:42; Start 05/10/20 at 14:00 Diphenhydramine HCl (Benadryl Oral Elixir) 12.5 mg 1X ONCE PO Last administered on 05/11/20at 00:27; Start 05/11/20 at 00:30; Stop 05/11/20 at 00:31; Status DC Albuterol/ Ipratropium (Duoneb) 3 ml RTQID NEB Last administered on 05/17/20at 11:52; Start 05/11/20 at 12:00 Budesonide (Pulmicort) 0.5 mg RTBID NEB Last administered on 05/17/20at 07:21; Start 05/11/20 at 11:00 Albuterol Sulfate (Ventolin Hfa) 1 puff PRN Q4HRS PRN INH SOA; Start 05/11/20 at 11:00 Lidocaine HCl (Buffered Lidocaine 1%) 3 ml STK-MED ONCE .ROUTE ; Start 05/12/20 at 14:51; Stop 05/12/20 at 14:51; Status DC Lidocaine HCl (Buffered Lidocaine 1%) 3 ml 1X ONCE IJ Last administered on 05/12/20at 15:30; Start 05/12/20 at 15:30; Stop 05/12/20 at 15:31; Status DC Sodium Chloride 500 ml @ 166.7 mls/ hr 1X ONCE IV Last administered on 05/12/20at 18:01; Start 05/12/20 at 17:45; Stop 05/12/20 at 20:44; Status DC Piperacillin Sod/ Tazobactam Sod 3.375 gm/Sodium Chloride 50 ml @ 100 mls/hr Q6HRS IV Last administered on 05/17/20at 14:00; Start 05/13/20 at 14:00 Alteplase, Recombinant 10 mg/ Miscellaneous 10 ml @ 20 mls/hr BID IPL Last administered on 05/15/20at 08:19; Start 05/14/20 at 11:30; Stop 05/15/20 at 09:41; Status DC Alteplase, Recombinant 10 mg/ Lidocaine HCl 10 ml/Miscellaneous 60 ml @ 120 mls/hr 1X ONCE IPL Last administered on 05/16/20at 09:15; Start 05/16/20 at 09:00; Stop 05/16/20 at 09:29; Status DC Active Scripts Active Reported Metoprolol Succinate ( Xl ) (Metoprolol Succinate) 25 Mg Tab.er.24h 1 Tab PO DAILY Losartan Potassium 100 Mg Tablet 100 Mg PO DAILY Atorvastatin Calcium 20 Mg Tablet 1 Tab PO DAILY Clopidogrel (Clopidogrel Bisulfate) 75 Mg Tablet 1 Tab PO DAILY Flomax (Tamsulosin Hcl) 0.4 Mg Cap.er.24h 1 Cap PO DAILY Omeprazole 20 Mg Tablet.dr 1 Tab PO DAILY Vitamin B12 (Cyanocobalamin (Vitamin B-12)) 2,500 Mcg Tablet 1 Tab PO DAILY 30 Days Vitamin D3 (Cholecalciferol (Vitamin D3)) 10 Mcg Capsule 10 Mcg PO DAILY PRN Multi Vitamin Daily (Multivitamin) 1 Each Tablet 1 Tab PO DAILY 30 Days Aspirin 81 Mg Tab.chew 1 Tab PO DAILY Vitals/I & O Vital Sign - Last 24 Hours 05/16/20 05/16/20 05/16/20 05/16/20 15:02 15:27 19:00 19:19 Temp 97.9 98.0 97.9 98.0 Pulse 93 104 Resp 18 20 B/P (MAP) 110/54 (72) 113/54 (73) Pulse Ox 92 95 91 100 O2 Delivery Room Air Room Air Room Air Room Air 05/16/20 05/16/20 05/16/20 05/16/20 19:20 20:00 22:04 23:00 Temp 97.3 97.3 Pulse 104 94 Resp 20 B/P (MAP) 113/54 132/63 (86) Pulse Ox 100 92 O2 Delivery Room Air Room Air Room Air 05/17/20 05/17/20 05/17/20 05/17/20 03:01 07:21 07:59 08:00 Temp 98.6 97.3 98.6 97.3 Pulse 78 84 Resp 18 18 B/P (MAP) 125/59 (81) 112/55 (74) Pulse Ox 93 94 92 O2 Delivery Room Air Room Air Room Air Room Air O2 Flow Rate 2.0 05/17/20 05/17/20 05/17/20 08:42 11:53 11:59 Temp 97.3 97.3 Pulse 78 59 Resp 18 B/P (MAP) 125/59 131/56 (81) Pulse Ox 94 O2 Delivery Room Air Room Air Intake and Output 05/16/20 05/16/20 05/17/20 14:59 22:59 06:59 Intake Total 250 ml 50 ml 100 ml Output Total 90 ml 530 ml 42 ml Balance 160 ml -480 ml 58 ml Justicifation of Admission Dx: Justifications for Admission: Justification of Admission Dx: Yes Aspiration Pneumonia: Hypoxemia SARAH PATEL MD May 17, 2020 14:53
[2020-05-17 15:59] VITALS: BP 117/55
--- NOTE | 2020-05-17 16:08 | RAD ---
Exam: CT of chest without contrast INDICATION: Empyema TECHNIQUE: Sequential axial images through the chest obtained without IV contrast. Sagittal and coronal reformatted images were reconstructed from the axial data and reviewed. Comparisons: None FINDINGS: Visualized portions of the thyroid are unremarkable. No enlarged mediastinal lymph nodes. Heart size is normal. Small pericardial effusion. Mild coronary artery calcifications are noted. Thoracic aorta has a normal course and caliber. Pulmonary artery is not enlarged. Airways are patent. Linear bandlike opacities at the right lung base are present either scarring or atelectasis. There is redemonstration of a complex right pleural effusion with a small amount of air which appears to have decreased in size when compared to the prior exam. There is redemonstration of a right posterior basal pigtail drain. There is redemonstration of a loculated effusion within the right major fissure which is essentially unchanged compared to the prior study. Visualized upper abdomen is unremarkable. No suspicious osseous lesions or acute fractures. IMPRESSION: Interval decreased size of the right complex pleural effusion which contains small amount of air. Similar position of the right pigtail catheter drain. The component of the loculated effusion within the major fissure on the right has not significantly changed. Persistent adjacent bandlike opacities in the lung parenchyma likely representing atelectasis Exposure: One or more of the following in the visualized dose reduction techniques were utilized for this examination: 1. Automated exposure control 2. Adjustment of the MA and/or KV according to patient size 3. Use of iterative of reconstructive technique Electronically signed by: Efe Snow MD (05/17/2020 4:06 PM) [id number]
[2020-05-17 19:00] VITALS: BP 128/64
[2020-05-17] MEDS: ATORVASTATIN CALCIUM 20 MG TABLET PO SCH (20:46)
[2020-05-17 23:00] VITALS: BP 121/60
[2020-05-18] VITALS (17 sets, daily range): BP systolic 95–138; BP diastolic 41–67
[2020-05-18] MEDS: PIPERACILLIN/TAZOBACTAM 3.375 GM in IV NORMAL SALINE 50ML 50 ML IV SCH ×5 (00:27→23:35)
[2020-05-18] MEDS: PANTOPRAZOLE 40 MG TABLET.DR. PO SCH (05:28)
[2020-05-18] MEDS: HEPARIN for SUB-Q USE 5,000 UNIT/ML VIAL. SQ SCH ×3 (05:39→23:42)
[2020-05-18 06:33] LABS: BASO # 0.1 x10^3/uL (0.0-0.2); BASO % 1 % (0-3); EOS # 0.4 x10^3/uL (0.0-0.7); EOS % 2 % (0-3); HEMATOCRIT 31.4 % (39.0-53.0); HEMOGLOBIN 10.5 g/dL (13.0-17.5); LYMPH # 1.6 x10^3/uL (1.0-4.8); LYMPH % 10 % (24-48); MEAN CORPUSCULAR HEMOGLOBIN 31 pg (25-35); MEAN CORPUSCULAR HGB CONC 34 g/dL (31-37); MEAN CORPUSCULAR VOLUME 92 fL (79-100); MONO # 1.4 x10^3/uL (0.0-1.1); MONO % 9 % (0-9); NEUT % 78 % (31-73); PLATELET COUNT 520 x10^3/uL (140-400); RED BLOOD COUNT 3.41 x10^6/uL (4.30-5.70); RED CELL DISTRIBUTION WIDTH 14.1 % (11.5-14.5); WHITE BLOOD COUNT 15.5 x10^3/uL (4.0-11.0)
[2020-05-18 06:49] LABS: ALBUMIN 1.6 g/dL (3.4-5.0); ALBUMIN/GLOBULIN RATIO 0.4 (1.0-1.7); C-REACTIVE PROTEIN 72.9 mg/L (0-3.3); CALCIUM 8.3 mg/dL (8.5-10.1); CREATININE 1.3 mg/dL (0.7-1.3); GFR 52.6; TOTAL BILIRUBIN 0.4 mg/dL (0.2-1.0); TOTAL PROTEIN 5.7 g/dL (6.4-8.2)
[2020-05-18] MEDS: IPRATRPIUM/ALBUTEROL 0.5/2.5MG 3 ML NEBU. NEB SCH ×4 (07:20→21:06)
[2020-05-18] MEDS: BUDESONIDE 0.5 MG/2 ML NEBU. NEB SCH ×2 (07:20→21:06)
[2020-05-18] MEDS: ASPIRIN CHEWABLE 81 MG TABLET. PO SCH (08:25)
[2020-05-18] MEDS: LACTOBACILLUS RHAMNOSUS GG 1 CAPSULE. PO SCH ×2 (08:25→20:46)
[2020-05-18] MEDS: LINEZOLID 600 MG TABLET PO SCH ×2 (08:25→20:46)
[2020-05-18] MEDS: CLOPIDOGREL BISULFATE 75 MG TABLET PO SCH (08:25)
[2020-05-18] MEDS: METOPROLOL TART IMMED RELEASE 50 MG TABLET. PO SCH ×2 (08:25→20:46)
--- NOTE | 2020-05-18 09:57 | RAD ---
PORTABLE CHEST 1V INDICATION: Reason: empyema / Spl. Instructions: / History: . COMPARISON STUDY: CT and radiograph 05/17/2020. FINDINGS: Life Support Devices: Stable right pleural catheter. Lungs: Normal lung volume. Stable right basilar opacities. Normal pulmonary vasculature. Pleura: Stable small right pleural effusion. Heart and Mediastinum: Stable cardiomediastinal silhouette and great vessels. IMPRESSION: 1. Stable right basilar pleural catheter. 2. Stable small right pleural effusion and right basilar opacities. Electronically signed by: Jack Valencia MD (05/18/2020 9:55 AM) [id number]
--- NOTE | 2020-05-18 10:32 | PDOC ---
Infectious Disease Note Subjective Subjective Patient without complaints He is feels little better Occ cough with min sputum - no blood Denies fever, nausea, vomiting, worsening shortness of breath, abdominal pain ROS ROS o/w neg Vital Sign Vital Signs Vital Signs Date Time Temp Pulse Resp B/P (MAP) Pulse Ox O2 Delivery O2 Flow Rate FiO2 05/18/20 08:25 83 125/64 05/18/20 07:45 Room Air 05/18/20 07:28 97.7 18 94 97.7 05/17/20 08:00 2.0 Physical Exam PHYSICAL EXAM GENERAL: Propped up in bed, alert awake HEENT: Oral cavity dry - nml ocnj NECK: Supple LUNGS: dec bs at bases, right chest drain present HEART: S1, S2 ABDOMEN: Soft and nontender EXTREMITIES: No edema, cyanosis. SKIN: warm to touch NEUROLOGIC: Alert, appropriate. Labs Lab Laboratory Tests Test 05/18/20 05:25 White Blood Count 15.5 x10^3/uL (4.0-11.0) Red Blood Count 3.41 x10^6/uL (4.30-5.70) Hemoglobin 10.5 g/dL (13.0-17.5) Hematocrit 31.4 % (39.0-53.0) Mean Corpuscular Volume 92 fL (79-100) Mean Corpuscular Hemoglobin 31 pg (25-35) Mean Corpuscular Hemoglobin Concent 34 g/dL (31-37) Red Cell Distribution Width 14.1 % (11.5-14.5) Platelet Count 520 x10^3/uL (140-400) Neutrophils (%) (Auto) 78 % (31-73) Lymphocytes (%) (Auto) 10 % (24-48) Monocytes (%) (Auto) 9 % (0-9) Eosinophils (%) (Auto) 2 % (0-3) Basophils (%) (Auto) 1 % (0-3) Neutrophils # (Auto) 12.0 x10^3/uL (1.8-7.7) Lymphocytes # (Auto) 1.6 x10^3/uL (1.0-4.8) Monocytes # (Auto) 1.4 x10^3/uL (0.0-1.1) Eosinophils # (Auto) 0.4 x10^3/uL (0.0-0.7) Basophils # (Auto) 0.1 x10^3/uL (0.0-0.2) Sodium Level 135 mmol/L (136-145) Potassium Level 4.0 mmol/L (3.5-5.1) Chloride Level 104 mmol/L (98-107) Carbon Dioxide Level 23 mmol/L (21-32) Anion Gap 8 (6-14) Blood Urea Nitrogen 18 mg/dL (8-26) Creatinine 1.3 mg/dL (0.7-1.3) Estimated GFR (Cockcroft-Gault) 52.6 BUN/Creatinine Ratio 14 (6-20) Glucose Level 95 mg/dL (70-99) Calcium Level 8.3 mg/dL (8.5-10.1) Total Bilirubin 0.4 mg/dL (0.2-1.0) Aspartate Amino Transf (AST/SGOT) 31 U/L (15-37) Alanine Aminotransferase (ALT/SGPT) 50 U/L (16-63) Alkaline Phosphatase 131 U/L (46-116) C-Reactive Protein, Quantitative 72.9 mg/L (0-3.3) Total Protein 5.7 g/dL (6.4-8.2) Albumin 1.6 g/dL (3.4-5.0) Albumin/Globulin Ratio 0.4 (1.0-1.7) Micro CT 05/17 IMPRESSION: Interval decreased size of the right complex pleural effusion which contains small amount of air. Similar position of the right pigtail catheter drain. The component of the loculated effusion within the major fissure on the right has not significantly changed. Persistent adjacent bandlike opacities in the lung parenchyma likely representing atelectasis Microbiology 05/12/20 Gram Stain - Final, Resulted 05/12/20 Aerobic and Anaerobic Culture - Preliminary, Resulted 05/06/20 Blood Culture - Final, Complete NO GROWTH AFTER 5 DAYS Objective Assessment Fever - resolved Parapneumonic effusion s/p drainage with TPA x 4 - cults neg Leucocytosis - better Renal insufficiency. Abn LFTs - better Atrial fibrillation. COVID-19 negative x2 Diarrhea Plan Plan of Care Cont zosyn/ Zyvox await chest tube repositioning Check C. difficile if diarrhea continues F/U cults , pleural fluid cultures remain negative monitor labs BREANA HEDRICK MD May 18, 2020 10:32
--- NOTE | 2020-05-18 11:06 | PDOC ---
PULMONARY PROGRESS NOTES Subjective Patient with no new complaints no chest pain no pressure no increasing shortness of breath s/p TPA via chest tube x 4. , Vitals Vital Signs Date Time Temp Pulse Resp B/P (MAP) Pulse Ox O2 Delivery O2 Flow Rate FiO2 05/18/20 08:25 83 125/64 05/18/20 07:45 Room Air 05/18/20 07:28 97.7 18 94 97.7 05/17/20 08:00 2.0 ROS: No Nausea, No Chest Pain, No Abdominal Pain, No Increase Cough General: Alert, No acute distress Lungs: Crackles Cardiovascular: S1, S2 Abdomen: Soft Neuro Exam: Alert Extremities: No Edema Skin: Warm Labs Laboratory Tests Test 05/18/20 05:25 White Blood Count 15.5 x10^3/uL (4.0-11.0) Red Blood Count 3.41 x10^6/uL (4.30-5.70) Hemoglobin 10.5 g/dL (13.0-17.5) Hematocrit 31.4 % (39.0-53.0) Mean Corpuscular Volume 92 fL (79-100) Mean Corpuscular Hemoglobin 31 pg (25-35) Mean Corpuscular Hemoglobin Concent 34 g/dL (31-37) Red Cell Distribution Width 14.1 % (11.5-14.5) Platelet Count 520 x10^3/uL (140-400) Neutrophils (%) (Auto) 78 % (31-73) Lymphocytes (%) (Auto) 10 % (24-48) Monocytes (%) (Auto) 9 % (0-9) Eosinophils (%) (Auto) 2 % (0-3) Basophils (%) (Auto) 1 % (0-3) Neutrophils # (Auto) 12.0 x10^3/uL (1.8-7.7) Lymphocytes # (Auto) 1.6 x10^3/uL (1.0-4.8) Monocytes # (Auto) 1.4 x10^3/uL (0.0-1.1) Eosinophils # (Auto) 0.4 x10^3/uL (0.0-0.7) Basophils # (Auto) 0.1 x10^3/uL (0.0-0.2) Sodium Level 135 mmol/L (136-145) Potassium Level 4.0 mmol/L (3.5-5.1) Chloride Level 104 mmol/L (98-107) Carbon Dioxide Level 23 mmol/L (21-32) Anion Gap 8 (6-14) Blood Urea Nitrogen 18 mg/dL (8-26) Creatinine 1.3 mg/dL (0.7-1.3) Estimated GFR (Cockcroft-Gault) 52.6 BUN/Creatinine Ratio 14 (6-20) Glucose Level 95 mg/dL (70-99) Calcium Level 8.3 mg/dL (8.5-10.1) Total Bilirubin 0.4 mg/dL (0.2-1.0) Aspartate Amino Transf (AST/SGOT) 31 U/L (15-37) Alanine Aminotransferase (ALT/SGPT) 50 U/L (16-63) Alkaline Phosphatase 131 U/L (46-116) C-Reactive Protein, Quantitative 72.9 mg/L (0-3.3) Total Protein 5.7 g/dL (6.4-8.2) Albumin 1.6 g/dL (3.4-5.0) Albumin/Globulin Ratio 0.4 (1.0-1.7) Laboratory Tests Test 05/18/20 05:25 White Blood Count 15.5 x10^3/uL (4.0-11.0) Red Blood Count 3.41 x10^6/uL (4.30-5.70) Hemoglobin 10.5 g/dL (13.0-17.5) Hematocrit 31.4 % (39.0-53.0) Mean Corpuscular Volume 92 fL (79-100) Mean Corpuscular Hemoglobin 31 pg (25-35) Mean Corpuscular Hemoglobin Concent 34 g/dL (31-37) Red Cell Distribution Width 14.1 % (11.5-14.5) Platelet Count 520 x10^3/uL (140-400) Neutrophils (%) (Auto) 78 % (31-73) Lymphocytes (%) (Auto) 10 % (24-48) Monocytes (%) (Auto) 9 % (0-9) Eosinophils (%) (Auto) 2 % (0-3) Basophils (%) (Auto) 1 % (0-3) Neutrophils # (Auto) 12.0 x10^3/uL (1.8-7.7) Lymphocytes # (Auto) 1.6 x10^3/uL (1.0-4.8) Monocytes # (Auto) 1.4 x10^3/uL (0.0-1.1) Eosinophils # (Auto) 0.4 x10^3/uL (0.0-0.7) Basophils # (Auto) 0.1 x10^3/uL (0.0-0.2) Sodium Level 135 mmol/L (136-145) Potassium Level 4.0 mmol/L (3.5-5.1) Chloride Level 104 mmol/L (98-107) Carbon Dioxide Level 23 mmol/L (21-32) Anion Gap 8 (6-14) Blood Urea Nitrogen 18 mg/dL (8-26) Creatinine 1.3 mg/dL (0.7-1.3) Estimated GFR (Cockcroft-Gault) 52.6 BUN/Creatinine Ratio 14 (6-20) Glucose Level 95 mg/dL (70-99) Calcium Level 8.3 mg/dL (8.5-10.1) Total Bilirubin 0.4 mg/dL (0.2-1.0) Aspartate Amino Transf (AST/SGOT) 31 U/L (15-37) Alanine Aminotransferase (ALT/SGPT) 50 U/L (16-63) Alkaline Phosphatase 131 U/L (46-116) C-Reactive Protein, Quantitative 72.9 mg/L (0-3.3) Total Protein 5.7 g/dL (6.4-8.2) Albumin 1.6 g/dL (3.4-5.0) Albumin/Globulin Ratio 0.4 (1.0-1.7) Medications Active Scripts Medications Dose Route/Sig Max Daily Dose Days Date Category Metoprolol Succinate ( Xl ) (Metoprolol Succinate) 25 Mg Tab.er.24h 1 Tab PO DAILY 05/05/20 Reported Losartan Potassium 100 Mg Tablet 100 Mg PO DAILY 05/05/20 Reported Atorvastatin Calcium 20 Mg Tablet 1 Tab PO DAILY 05/05/20 Reported Clopidogrel (Clopidogrel Bisulfate) 75 Mg Tablet 1 Tab PO DAILY 05/05/20 Reported Flomax (Tamsulosin Hcl) 0.4 Mg Cap.er.24h 1 Cap PO DAILY 05/05/20 Reported Omeprazole 20 Mg Tablet.dr 1 Tab PO DAILY 05/05/20 Reported Vitamin B12 (Cyanocobalamin (Vitamin B-12)) 2,500 Mcg Tablet 1 Tab PO DAILY 30 05/05/20 Reported Vitamin D3 (Cholecalciferol (Vitamin D3)) 10 Mcg Capsule 10 Mcg PO DAILY PRN 05/05/20 Reported Multi Vitamin Daily (Multivitamin) 1 Each Tablet 1 Tab PO DAILY 30 05/05/20 Reported Aspirin 81 Mg Tab.chew 1 Tab PO DAILY 05/05/20 Reported Comments cxr 05/[address] chest IMPRESSION: Interval decreased size of the right complex pleural effusion which contains small amount of air. Similar position of the right pigtail catheter drain. The component of the loculated effusion within the major fissure on the right has not significantly changed. Persistent adjacent bandlike opacities in the lung parenchyma likely representing atelectasis Impression . 1. Abnormal CT chest revealing large and loculated right-sided effusion due to empyema. s/p right chest tube. s/p TPA 2. Fever. Pneumonia with complicated parapneumonic effusion/empyema,improved 3. Progressive dyspnea secondary to above. stable 4. SARS-CoV-2 negative x 2. 5. Acute hypoxemic respiratory failure. CT-guided chest tube drain, 05/12 Impression: Multiloculated right pleural effusion. Ultrasound-guided thoracostomy tube placement Plan . s/p TPA X 4 . cxr improving .ALMOST RESOLUTION OF RIGHT EFFUSION. repeat CT Chest 05/17 reviewed. Loculated effusion resolved. Another pocket of fluid collection in fissure, will need drainage. no further TPA for now. will remove old chest tube Discussed with IR So far cultures negative pH / glucose is low on the pleural fluid / cultures neg so far Abx per MELODY MUHAMMAD MD May 18, 2020 11:05
--- NOTE | 2020-05-18 13:16 | PDOC ---
PROGRESS NOTES Chief Complaint Chief Complaint A/P: Acute respiratory distress secondary to pneumonia Pneumonia - likely gram negative given improvement with cefepime Empyema - with chest tube and TPA intracatheter Troponin elevation possibly related to demand ischemia CKD unknown stage Atrial fibrillationstable Hypertension COVID ruled out Plan: tpa through the tube x4 will discuss with pulmonary independent crop consultant, he will have IR drain the new pocket noted on CT and hopefully pull all tubes in the am reassurance provided Patient to continue with supportive measures. Cont antibiotics Follow cultures and recommendations from ID independent crop consultant reassess in the am Disposition: may need placement given advanced age and prolongued hospital stay. Patient quite motivated to go home but given his prolonged hospital stay this may be needed reevaluated History of Present Illness History of Present Illness Mr Rey is a 84-year-old male with past medical history of hypertension, A. fib, CVA, who presents to the ED with complaints of shortness of breath and fevers of 103. He was claimed to be saturating at 86% on 6 L nasal cannula with EMS. Patient also stated that he had some cough and associated chest pain. Denies any nausea vomiting, abdominal pain, diarrhea. 05/06: Patient had a fever overnight of 101.4. No acute events overnight. Patient is tolerating diet. Repeat chest x-ray shows worsening pleural effusion. Patient is saturating well 9 L. 05/07: No acute events overnight. Patient seen and examined bedside today. Patient is tolerating diet and saturating 97% on 9 L nasal cannula. 05/08: No acute events overnight. Patient did have a fever 100.1, but no major overnight events. Patient is sitting up in bed and compensating well. COVID tested is negative x2 05/09: No acute events overnight. Patient seen and examined bedside today. Patient has been afebrile for 24 hours. Tolerating diet and did have a bowel movement 2 days ago. 05/10: Tele showed 12 beats of V. tach. Asymptomatic at this time. Cardiology was consulted. Patient endorses yellow sputum production and forced cough. 101F 05/11: Afebrile. Still on 3 L nasal cannula oxygen. He is feeling weak. Still with shortness of breath his cough is weak. 05/12: Febrile to 100.3 F, on 3 L nasal cannulated oxygen. Still with productive cough. CT chest obtained with large right pleural effusion, loculated. IR placed chest tube. 05/13: Afebrile overnight. Off O2. Pain at chest tube site. Cough is dry no longer productive. 05/14: Patient seems to be doing better, patient denies fever or chills, patient plan of care discussed in detail All concerns addressed to the best of my abilities. 05/15 800cc out of chest tube after initial tPA instillation on 05/14/2020. instilled this morning and drained. Still with slight cough, off O2. 05/16: Patient with no complaints during my visit. Patient feels well and is hoping to be discharged soon, I have explained the need to continue with tpa infusion through the tube. he acknowledged understanding 05/17: No acute events reported overnight, case discussed with nursing staff patient in no acute distress no complaints during my visit 05/18: CT of the chest noted, discussed with pulmonary independent crop consultant, reassurance provided to the patient Vitals Vitals Vital Signs Date Time Temp Pulse Resp B/P (MAP) Pulse Ox O2 Delivery O2 Flow Rate FiO2 05/18/20 11:22 97 Room Air 05/18/20 11:08 98.0 75 18 117/64 (81) 98.0 05/17/20 08:00 2.0 Physical Exam Physical Exam GENERAL: Propped up in bed, alert awake HEENT: Oral cavity dry - nml ocnj NECK: Supple LUNGS: dec bs at bases, right chest drain present HEART: S1, S2 ABDOMEN: Soft and nontender EXTREMITIES: No edema, cyanosis. SKIN: warm to touch NEUROLOGIC: Alert, appropriate. General: Alert, Oriented X3, Cooperative, No acute distress Heart: Regular rate Lungs: Crackles Abdomen: Soft Extremities: Other (trace bilateral LE edema) Skin: No significant lesion Labs LABS Laboratory Tests Test 05/18/20 05:25 White Blood Count 15.5 x10^3/uL (4.0-11.0) Red Blood Count 3.41 x10^6/uL (4.30-5.70) Hemoglobin 10.5 g/dL (13.0-17.5) Hematocrit 31.4 % (39.0-53.0) Mean Corpuscular Volume 92 fL (79-100) Mean Corpuscular Hemoglobin 31 pg (25-35) Mean Corpuscular Hemoglobin Concent 34 g/dL (31-37) Red Cell Distribution Width 14.1 % (11.5-14.5) Platelet Count 520 x10^3/uL (140-400) Neutrophils (%) (Auto) 78 % (31-73) Lymphocytes (%) (Auto) 10 % (24-48) Monocytes (%) (Auto) 9 % (0-9) Eosinophils (%) (Auto) 2 % (0-3) Basophils (%) (Auto) 1 % (0-3) Neutrophils # (Auto) 12.0 x10^3/uL (1.8-7.7) Lymphocytes # (Auto) 1.6 x10^3/uL (1.0-4.8) Monocytes # (Auto) 1.4 x10^3/uL (0.0-1.1) Eosinophils # (Auto) 0.4 x10^3/uL (0.0-0.7) Basophils # (Auto) 0.1 x10^3/uL (0.0-0.2) Sodium Level 135 mmol/L (136-145) Potassium Level 4.0 mmol/L (3.5-5.1) Chloride Level 104 mmol/L (98-107) Carbon Dioxide Level 23 mmol/L (21-32) Anion Gap 8 (6-14) Blood Urea Nitrogen 18 mg/dL (8-26) Creatinine 1.3 mg/dL (0.7-1.3) Estimated GFR (Cockcroft-Gault) 52.6 BUN/Creatinine Ratio 14 (6-20) Glucose Level 95 mg/dL (70-99) Calcium Level 8.3 mg/dL (8.5-10.1) Total Bilirubin 0.4 mg/dL (0.2-1.0) Aspartate Amino Transf (AST/SGOT) 31 U/L (15-37) Alanine Aminotransferase (ALT/SGPT) 50 U/L (16-63) Alkaline Phosphatase 131 U/L (46-116) C-Reactive Protein, Quantitative 72.9 mg/L (0-3.3) Total Protein 5.7 g/dL (6.4-8.2) Albumin 1.6 g/dL (3.4-5.0) Albumin/Globulin Ratio 0.4 (1.0-1.7) Assessment and Plan Assessmemt and Plan Problems Medical Problems: (1) Fever Status: Acute (2) Hypoxia Status: Acute (3) Person under investigation for COVID-19 Status: Acute Comment Review of Relevant I have reviewed the following items timoteo (where applicable) has been applied. Labs Laboratory Tests Test 05/18/20 05:25 White Blood Count 15.5 x10^3/uL (4.0-11.0) Red Blood Count 3.41 x10^6/uL (4.30-5.70) Hemoglobin 10.5 g/dL (13.0-17.5) Hematocrit 31.4 % (39.0-53.0) Mean Corpuscular Volume 92 fL (79-100) Mean Corpuscular Hemoglobin 31 pg (25-35) Mean Corpuscular Hemoglobin Concent 34 g/dL (31-37) Red Cell Distribution Width 14.1 % (11.5-14.5) Platelet Count 520 x10^3/uL (140-400) Neutrophils (%) (Auto) 78 % (31-73) Lymphocytes (%) (Auto) 10 % (24-48) Monocytes (%) (Auto) 9 % (0-9) Eosinophils (%) (Auto) 2 % (0-3) Basophils (%) (Auto) 1 % (0-3) Neutrophils # (Auto) 12.0 x10^3/uL (1.8-7.7) Lymphocytes # (Auto) 1.6 x10^3/uL (1.0-4.8) Monocytes # (Auto) 1.4 x10^3/uL (0.0-1.1) Eosinophils # (Auto) 0.4 x10^3/uL (0.0-0.7) Basophils # (Auto) 0.1 x10^3/uL (0.0-0.2) Sodium Level 135 mmol/L (136-145) Potassium Level 4.0 mmol/L (3.5-5.1) Chloride Level 104 mmol/L (98-107) Carbon Dioxide Level 23 mmol/L (21-32) Anion Gap 8 (6-14) Blood Urea Nitrogen 18 mg/dL (8-26) Creatinine 1.3 mg/dL (0.7-1.3) Estimated GFR (Cockcroft-Gault) 52.6 BUN/Creatinine Ratio 14 (6-20) Glucose Level 95 mg/dL (70-99) Calcium Level 8.3 mg/dL (8.5-10.1) Total Bilirubin 0.4 mg/dL (0.2-1.0) Aspartate Amino Transf (AST/SGOT) 31 U/L (15-37) Alanine Aminotransferase (ALT/SGPT) 50 U/L (16-63) Alkaline Phosphatase 131 U/L (46-116) C-Reactive Protein, Quantitative 72.9 mg/L (0-3.3) Total Protein 5.7 g/dL (6.4-8.2) Albumin 1.6 g/dL (3.4-5.0) Albumin/Globulin Ratio 0.4 (1.0-1.7) Laboratory Tests Test 05/18/20 05:25 White Blood Count 15.5 x10^3/uL (4.0-11.0) Red Blood Count 3.41 x10^6/uL (4.30-5.70) Hemoglobin 10.5 g/dL (13.0-17.5) Hematocrit 31.4 % (39.0-53.0) Mean Corpuscular Volume 92 fL (79-100) Mean Corpuscular Hemoglobin 31 pg (25-35) Mean Corpuscular Hemoglobin Concent 34 g/dL (31-37) Red Cell Distribution Width 14.1 % (11.5-14.5) Platelet Count 520 x10^3/uL (140-400) Neutrophils (%) (Auto) 78 % (31-73) Lymphocytes (%) (Auto) 10 % (24-48) Monocytes (%) (Auto) 9 % (0-9) Eosinophils (%) (Auto) 2 % (0-3) Basophils (%) (Auto) 1 % (0-3) Neutrophils # (Auto) 12.0 x10^3/uL (1.8-7.7) Lymphocytes # (Auto) 1.6 x10^3/uL (1.0-4.8) Monocytes # (Auto) 1.4 x10^3/uL (0.0-1.1) Eosinophils # (Auto) 0.4 x10^3/uL (0.0-0.7) Basophils # (Auto) 0.1 x10^3/uL (0.0-0.2) Sodium Level 135 mmol/L (136-145) Potassium Level 4.0 mmol/L (3.5-5.1) Chloride Level 104 mmol/L (98-107) Carbon Dioxide Level 23 mmol/L (21-32) Anion Gap 8 (6-14) Blood Urea Nitrogen 18 mg/dL (8-26) Creatinine 1.3 mg/dL (0.7-1.3) Estimated GFR (Cockcroft-Gault) 52.6 BUN/Creatinine Ratio 14 (6-20) Glucose Level 95 mg/dL (70-99) Calcium Level 8.3 mg/dL (8.5-10.1) Total Bilirubin 0.4 mg/dL (0.2-1.0) Aspartate Amino Transf (AST/SGOT) 31 U/L (15-37) Alanine Aminotransferase (ALT/SGPT) 50 U/L (16-63) Alkaline Phosphatase 131 U/L (46-116) C-Reactive Protein, Quantitative 72.9 mg/L (0-3.3) Total Protein 5.7 g/dL (6.4-8.2) Albumin 1.6 g/dL (3.4-5.0) Albumin/Globulin Ratio 0.4 (1.0-1.7) Microbiology 05/12/20 Gram Stain - Final, Complete 05/12/20 Aerobic and Anaerobic Culture - Final, Complete 05/06/20 Blood Culture - Final, Complete NO GROWTH AFTER 5 DAYS Medications Current Medications Acetaminophen (Tylenol) 1,000 mg 1X ONCE PO Last administered on 05/04/20at 19:06; Start 05/04/20 at 19:15; Stop 05/04/20 at 19:16; Status DC Ceftriaxone Sodium (Rocephin) 1 gm 1X ONCE IVP Last administered on 05/04/20at 19:15; Start 05/04/20 at 19:15; Stop 05/04/20 at 19:16; Status DC Azithromycin 250 ml @ 250 mls/hr 1X ONCE IV Last administered on 05/04/20at 19:15; Start 05/04/20 at 19:15; Stop 05/04/20 at 20:14; Status DC Morphine Sulfate (Morphine Sulfate) 2 mg 1X ONCE IV ; Start 05/04/20 at 19:15; Stop 05/04/20 at 19:16; Status Cancel Lorazepam (Ativan Inj) 1 mg 1X ONCE IVP ; Start 05/04/20 at 19:15; Stop 05/04/20 at 19:16; Status Cancel Sodium Chloride 1,000 ml @ 1,000 mls/hr 1X ONCE IV Last administered on 05/04/20at 19:00; Start 05/04/20 at 20:00; Stop 05/04/20 at 20:59; Status DC Ondansetron HCl (Zofran) 4 mg PRN Q8HRS PRN IV NAUSEA/VOMITING; Start 05/04/20 at 20:00; Stop 05/05/20 at 19:59; Status DC Diltiazem HCl (Cardizem Iv Push) 20 mg 1X ONCE IVP ; Start 05/04/20 at 20:15; Stop 05/04/20 at 20:16; Status DC Albuterol Sulfate (Ventolin Hfa) 1 puff Q4H INH Last administered on 05/11/20at 03:00; Start 05/04/20 at 23:00; Stop 05/11/20 at 10:54; Status DC Aspirin (Aspirin Chewable) 81 mg DAILY PO Last administered on 05/18/20at 08:25; Start 05/05/20 at 09:00 Atorvastatin Calcium (Lipitor) 20 mg QHS PO Last administered on 05/17/20at 20:46; Start 05/05/20 at 21:00 Clopidogrel Bisulfate (Plavix) 75 mg DAILY PO Last administered on 05/18/20at 08:25; Start 05/05/20 at 09:00 Metoprolol Succinate (Toprol Xl) 25 mg DAILY PO Last administered on 05/07/20at 08:43; Start 05/05/20 at 09:00; Stop 05/07/20 at 16:55; Status DC Pantoprazole Sodium (Protonix) 40 mg DAILYAC PO Last administered on 05/18/20at 05:28; Start 05/05/20 at 11:30 Ceftriaxone Sodium (Rocephin) 1 gm Q24H IVP Last administered on 05/05/20at 15:32; Start 05/05/20 at 15:00; Stop 05/06/20 at 09:58; Status DC Azithromycin (Zithromax) 250 mg BID PO Last administered on 05/08/20at 08:30; Start 05/05/20 at 21:00; Stop 05/08/20 at 10:34; Status DC Furosemide (Lasix) 40 mg 1X ONCE IVP Last administered on 05/05/20at 17:35; Start 05/05/20 at 17:00; Stop 05/05/20 at 17:07; Status DC Acetaminophen (Tylenol) 650 mg PRN Q4HRS PRN PO fever and pain Last administered on 05/16/20at 13:31; Start 05/05/20 at 23:45 Cefepime HCl (Maxipime) 1 gm Q12HR IVP Last administered on 05/13/20at 09:02; Start 05/06/20 at 10:00; Stop 05/13/20 at 13:32; Status DC Vancomycin HCl (Vanco Per Pharmacy) 1 each PRN DAILY PRN MC SEE COMMENTS; Start 05/06/20 at 10:00; Stop 05/06/20 at 11:07; Status DC Vancomycin HCl 2 gm/Sodium Chloride 500 ml @ 250 mls/hr 1X ONCE IV ; Start 05/06/20 at 11:00; Stop 05/06/20 at 12:59; Status DC Artificial Tears (Artificial Tears) 1 drop PRN Q15MIN PRN OU DRY EYE Last administered on 05/13/20at 15:37; Start 05/06/20 at 12:45 Lactobacillus Rhamnosus (Culturelle) 1 cap BID PO Last administered on 05/18/20at 08:25; Start 05/06/20 at 13:00 Furosemide (Lasix) 40 mg 1X ONCE IVP Last administered on 05/06/20at 17:22; Start 05/06/20 at 13:45; Stop 05/06/20 at 13:47; Status DC Metoprolol Tartrate (Lopressor) 50 mg BID PO Last administered on 05/18/20at 08:25; Start 05/07/20 at 21:00 Heparin Sodium (Porcine) (Heparin Sodium) 5,000 unit Q8HRS SQ Last administered on 05/18/20at 05:39; Start 05/07/20 at 22:00 Linezolid (Zyvox) 600 mg BID PO Last administered on 05/18/20at 08:25; Start 05/08/20 at 11:00 Guaifenesin (Mucinex) 600 mg BID PO Last administered on 05/18/20at 08:25; Start 05/10/20 at 14:00 Diphenhydramine HCl (Benadryl Oral Elixir) 12.5 mg 1X ONCE PO Last administered on 05/11/20at 00:27; Start 05/11/20 at 00:30; Stop 05/11/20 at 00:31; Status DC Albuterol/ Ipratropium (Duoneb) 3 ml RTQID NEB Last administered on 05/18/20at 11:20; Start 05/11/20 at 12:00 Budesonide (Pulmicort) 0.5 mg RTBID NEB Last administered on 05/18/20at 07:20; Start 05/11/20 at 11:00 Albuterol Sulfate (Ventolin Hfa) 1 puff PRN Q4HRS PRN INH SOA; Start 05/11/20 at 11:00 Lidocaine HCl (Buffered Lidocaine 1%) 3 ml STK-MED ONCE .ROUTE ; Start 05/12/20 at 14:51; Stop 05/12/20 at 14:51; Status DC Lidocaine HCl (Buffered Lidocaine 1%) 3 ml 1X ONCE IJ Last administered on 05/12/20at 15:30; Start 05/12/20 at 15:30; Stop 05/12/20 at 15:31; Status DC Sodium Chloride 500 ml @ 166.7 mls/ hr 1X ONCE IV Last administered on 05/12/20at 18:01; Start 05/12/20 at 17:45; Stop 05/12/20 at 20:44; Status DC Piperacillin Sod/ Tazobactam Sod 3.375 gm/Sodium Chloride 50 ml @ 100 mls/hr Q6HRS IV Last administered on 05/18/20at 12:41; Start 05/13/20 at 14:00 Alteplase, Recombinant 10 mg/ Miscellaneous 10 ml @ 20 mls/hr BID IPL Last administered on 05/15/20at 08:19; Start 05/14/20 at 11:30; Stop 05/15/20 at 09:41; Status DC Alteplase, Recombinant 10 mg/ Lidocaine HCl 10 ml/Miscellaneous 60 ml @ 120 mls/hr 1X ONCE IPL Last administered on 05/16/20at 09:15; Start 05/16/20 at 09:00; Stop 05/16/20 at 09:29; Status DC Active Scripts Active Reported Metoprolol Succinate ( Xl ) (Metoprolol Succinate) 25 Mg Tab.er.24h 1 Tab PO DAILY Losartan Potassium 100 Mg Tablet 100 Mg PO DAILY Atorvastatin Calcium 20 Mg Tablet 1 Tab PO DAILY Clopidogrel (Clopidogrel Bisulfate) 75 Mg Tablet 1 Tab PO DAILY Flomax (Tamsulosin Hcl) 0.4 Mg Cap.er.24h 1 Cap PO DAILY Omeprazole 20 Mg Tablet.dr 1 Tab PO DAILY Vitamin B12 (Cyanocobalamin (Vitamin B-12)) 2,500 Mcg Tablet 1 Tab PO DAILY 30 Days Vitamin D3 (Cholecalciferol (Vitamin D3)) 10 Mcg Capsule 10 Mcg PO DAILY PRN Multi Vitamin Daily (Multivitamin) 1 Each Tablet 1 Tab PO DAILY 30 Days Aspirin 81 Mg Tab.chew 1 Tab PO DAILY Vitals/I & O Vital Sign - Last 24 Hours 05/17/20 05/17/20 05/17/20 05/17/20 15:14 15:59 19:00 20:00 Temp 97.5 98.1 97.5 98.1 Pulse 75 75 Resp 18 20 B/P (MAP) 117/55 (75) 128/64 (85) Pulse Ox 94 95 95 O2 Delivery Room Air Room Air Room Air Room Air 05/17/20 05/17/20 05/17/20 05/18/20 20:36 20:45 23:00 03:55 Temp 99.1 97.9 99.1 97.9 Pulse 75 67 75 Resp 20 18 B/P (MAP) 128/64 121/60 (80) 130/60 (83) Pulse Ox 95 94 94 O2 Delivery Room Air Room Air Room Air 05/18/20 05/18/20 05/18/20 05/18/20 07:23 07:28 07:45 08:25 Temp 97.7 97.7 Pulse 83 83 Resp 18 B/P (MAP) 125/64 (84) 125/64 Pulse Ox 95 94 O2 Delivery Room Air Room Air Room Air 05/18/20 05/18/20 11:08 11:22 Temp 98.0 98.0 Pulse 75 Resp 18 B/P (MAP) 117/64 (81) Pulse Ox 95 97 O2 Delivery Room Air Room Air Justicifation of Admission Dx: Justifications for Admission: Justification of Admission Dx: Yes Aspiration Pneumonia: Hypoxemia SARAH PATEL MD May 18, 2020 13:16
[2020-05-18] MEDS ORDERED: MIDAZOLAM HCL/PF 2 MG/2 ML VIAL. ONE (13:27)
[2020-05-18] MEDS ORDERED: LIDOCAINE WITH 8.4% SOD BICARB 3 ML DISP.SYRIN. ONE (13:27)
[2020-05-18] MEDS ORDERED: fentaNYL PF VIAL 100 MCG/2 ML VIAL ONE (13:28)
--- NOTE | 2020-05-18 13:34 | NUR ---
SW following. Spoke with RN and CM. Reviewed chart. Pt up walking with PT. Pt down from 3l 02 to room air. Pt down from 2 IV abx to one. Dr. Lee's note says the old chest tube will be removed and that additional drainage may be needed. SW to continue following. Discharge plan remains home with family and [facility] when stable.
[2020-05-18] MEDS ORDERED: MIDAZOLAM HCL/PF 2 MG/2 ML VIAL. IV ONE (13:45)
[2020-05-18] MEDS ORDERED: LIDOCAINE WITH 8.4% SOD BICARB 3 ML DISP.SYRIN. IJ ONE (13:45)
[2020-05-18] MEDS ORDERED: fentaNYL PF VIAL 100 MCG/2 ML VIAL IV ONE (13:45)
[2020-05-18] MEDS: ATORVASTATIN CALCIUM 20 MG TABLET PO SCH (20:46)
[2020-05-19 03:00] VITALS: BP 129/60
[2020-05-19] MEDS: PIPERACILLIN/TAZOBACTAM 3.375 GM in IV NORMAL SALINE 50ML 50 ML IV SCH (06:07)
[2020-05-19] MEDS: HEPARIN for SUB-Q USE 5,000 UNIT/ML VIAL. SQ SCH (06:11)
[2020-05-19 07:00] VITALS: BP 140/62
[2020-05-19] MEDS: BUDESONIDE 0.5 MG/2 ML NEBU. NEB SCH (07:23)
[2020-05-19] MEDS: IPRATRPIUM/ALBUTEROL 0.5/2.5MG 3 ML NEBU. NEB SCH ×2 (07:23→11:35)
[2020-05-19] MEDS: LACTOBACILLUS RHAMNOSUS GG 1 CAPSULE. PO SCH (08:15)
[2020-05-19] MEDS: PANTOPRAZOLE 40 MG TABLET.DR. PO SCH (08:15)
[2020-05-19] MEDS: ASPIRIN CHEWABLE 81 MG TABLET. PO SCH (08:16)
[2020-05-19] MEDS: METOPROLOL TART IMMED RELEASE 50 MG TABLET. PO SCH (08:16)
[2020-05-19] MEDS: LINEZOLID 600 MG TABLET PO SCH (08:16)
[2020-05-19] MEDS: CLOPIDOGREL BISULFATE 75 MG TABLET PO SCH (08:16)
--- NOTE | 2020-05-19 09:16 | PDOC ---
PULMONARY PROGRESS NOTES Subjective Patient with no new complaints no chest pain no pressure no increasing shortness of breath s/p TPA via chest tube x 4. , Vitals Vital Signs Date Time Temp Pulse Resp B/P (MAP) Pulse Ox O2 Delivery O2 Flow Rate FiO2 05/19/20 08:16 74 129/60 05/19/20 07:26 92 Room Air 05/19/20 07:00 97.8 18 97.8 05/18/20 13:59 2.0 ROS: No Nausea, No Chest Pain, No Abdominal Pain, No Increase Cough General: Alert, No acute distress Lungs: Crackles Cardiovascular: S1, S2 Abdomen: Soft Neuro Exam: Alert Extremities: No Edema Skin: Warm Labs Laboratory Tests Test 05/18/20 05:25 White Blood Count 15.5 x10^3/uL (4.0-11.0) Red Blood Count 3.41 x10^6/uL (4.30-5.70) Hemoglobin 10.5 g/dL (13.0-17.5) Hematocrit 31.4 % (39.0-53.0) Mean Corpuscular Volume 92 fL (79-100) Mean Corpuscular Hemoglobin 31 pg (25-35) Mean Corpuscular Hemoglobin Concent 34 g/dL (31-37) Red Cell Distribution Width 14.1 % (11.5-14.5) Platelet Count 520 x10^3/uL (140-400) Neutrophils (%) (Auto) 78 % (31-73) Lymphocytes (%) (Auto) 10 % (24-48) Monocytes (%) (Auto) 9 % (0-9) Eosinophils (%) (Auto) 2 % (0-3) Basophils (%) (Auto) 1 % (0-3) Neutrophils # (Auto) 12.0 x10^3/uL (1.8-7.7) Lymphocytes # (Auto) 1.6 x10^3/uL (1.0-4.8) Monocytes # (Auto) 1.4 x10^3/uL (0.0-1.1) Eosinophils # (Auto) 0.4 x10^3/uL (0.0-0.7) Basophils # (Auto) 0.1 x10^3/uL (0.0-0.2) Sodium Level 135 mmol/L (136-145) Potassium Level 4.0 mmol/L (3.5-5.1) Chloride Level 104 mmol/L (98-107) Carbon Dioxide Level 23 mmol/L (21-32) Anion Gap 8 (6-14) Blood Urea Nitrogen 18 mg/dL (8-26) Creatinine 1.3 mg/dL (0.7-1.3) Estimated GFR (Cockcroft-Gault) 52.6 BUN/Creatinine Ratio 14 (6-20) Glucose Level 95 mg/dL (70-99) Calcium Level 8.3 mg/dL (8.5-10.1) Total Bilirubin 0.4 mg/dL (0.2-1.0) Aspartate Amino Transf (AST/SGOT) 31 U/L (15-37) Alanine Aminotransferase (ALT/SGPT) 50 U/L (16-63) Alkaline Phosphatase 131 U/L (46-116) C-Reactive Protein, Quantitative 72.9 mg/L (0-3.3) Total Protein 5.7 g/dL (6.4-8.2) Albumin 1.6 g/dL (3.4-5.0) Albumin/Globulin Ratio 0.4 (1.0-1.7) Medications Active Scripts Medications Dose Route/Sig Max Daily Dose Days Date Category Metoprolol Succinate ( Xl ) (Metoprolol Succinate) 25 Mg Tab.er.24h 1 Tab PO DAILY 05/05/20 Reported Losartan Potassium 100 Mg Tablet 100 Mg PO DAILY 05/05/20 Reported Atorvastatin Calcium 20 Mg Tablet 1 Tab PO DAILY 05/05/20 Reported Clopidogrel (Clopidogrel Bisulfate) 75 Mg Tablet 1 Tab PO DAILY 05/05/20 Reported Flomax (Tamsulosin Hcl) 0.4 Mg Cap.er.24h 1 Cap PO DAILY 05/05/20 Reported Omeprazole 20 Mg Tablet.dr 1 Tab PO DAILY 05/05/20 Reported Vitamin B12 (Cyanocobalamin (Vitamin B-12)) 2,500 Mcg Tablet 1 Tab PO DAILY 30 05/05/20 Reported Vitamin D3 (Cholecalciferol (Vitamin D3)) 10 Mcg Capsule 10 Mcg PO DAILY PRN 05/05/20 Reported Multi Vitamin Daily (Multivitamin) 1 Each Tablet 1 Tab PO DAILY 30 05/05/20 Reported Aspirin 81 Mg Tab.chew 1 Tab PO DAILY 05/05/20 Reported Comments cxr 05/[address] chest IMPRESSION: Interval decreased size of the right complex pleural effusion which contains small amount of air. Similar position of the right pigtail catheter drain. The component of the loculated effusion within the major fissure on the right has not significantly changed. Persistent adjacent bandlike opacities in the lung parenchyma likely representing atelectasis Impression . 1. Abnormal CT chest revealing large and loculated right-sided effusion due to empyema. s/p right chest tube. s/p TPA 2. Fever. Pneumonia with complicated parapneumonic effusion/empyema,improved 3. Progressive dyspnea secondary to above. stable 4. SARS-CoV-2 negative x 2. 5. Acute hypoxemic respiratory failure. CT-guided chest tube drain, 05/12 Impression: Multiloculated right pleural effusion. Ultrasound-guided thoracostomy tube placement Plan . s/p TPA X 4 . cxr improving .ALMOST RESOLUTION OF RIGHT EFFUSION. repeat CT Chest 05/17 reviewed. Loculated effusion resolved. Another pocket of fluid collection in fissure, s/p drainage. no further TPA for now. will remove old chest tube today cxr 05/19 improved overall Discussed with PCP ok with dc on PO abx per ID So far cultures negative MELODY CURRIE MD May 19, 2020 09:16
[2020-05-19] MEDS ORDERED: LACT1CAP19 PO (09:20)
[2020-05-19] MEDS ORDERED: GUAI600T47 PO (09:20)
[2020-05-19] MEDS ORDERED: LINE600T12 PO (09:20)
[2020-05-19] MEDS ORDERED: VENTOLIN HFA8 G1 INH (09:20)
--- NOTE | 2020-05-19 09:35 | RAD ---
05/19/2020 7:29 AM Procedure: CT-guided aspiration, intrafissural fluid collection, right-sided Clinical Indication: ct guided aspiration /chest tube if needed on right side Discussion: The procedure was explained in its entirety to the patient or the patients designated airport representative by a member of the treatment team, including a discussion of the risks, benefits and commonly accepted alternatives to the procedure, as well as the expected consequences of no therapy whatsoever. Discussion of the risks included, but was not limited to, those that are most frequent and those that are rare but possibly severe or life-threatening, as well as the possibility of unforeseen complications. All elements of maximal sterile barrier technique including the use of a cap, mask, sterile gown, sterile gloves, large sterile sheet, appropriate hand hygiene, and 2% chlorhexidine for cutaneous antisepsis (or acceptable alternative antiseptic per current guidelines) were followed for this procedure. CT imaging redemonstrates intrafissural fluid collection within the major fissure on the right. Adjacent lung consolidation bronchograms noted. Small residual pleural fluid and pleural thickening is seen with chest tube in place. The right chest prepped draped using sterile barrier technique. 1% lidocaine was administered for local anesthesia. Under intermittent CT guidance a 5 Hait[place] Yueh needle was advanced into the aforementioned fluid collection. Serosanguineous fluid was aspirated. Repeat CT imaging demonstrates essentially complete evacuation of the fluid component. There are persistent underlying consolidation noted. The sheath was removed and manual pressure was held. No immediate complications were seen. Impression: CT-guided aspiration of right intrafissural fluid collection PQRS Compliance Statement: One or more of the following individualized dose reduction techniques were utilized for this examination: 1. Automated exposure control 2. Adjustment of the mA and/or kV according to patient size 3. Use of iterative reconstruction technique
--- NOTE | 2020-05-19 10:40 | PDOC ---
Infectious Disease Note Subjective Subjective Patient without complaints He is feels better. CT out. Tolerated procedure yesterday Occ cough with min sputum - no blood Denies fever, nausea, vomiting, worsening shortness of breath, abdominal pain ROS ROS o/w neg Vital Sign Vital Signs Vital Signs Date Time Temp Pulse Resp B/P (MAP) Pulse Ox O2 Delivery O2 Flow Rate FiO2 05/19/20 08:16 74 129/60 05/19/20 08:00 Room Air 2.0 05/19/20 07:26 92 05/19/20 07:00 97.8 18 97.8 Physical Exam PHYSICAL EXAM GENERAL: Propped up in bed, alert awake HEENT: Oral cavity dry - nml conj NECK: Supple LUNGS: dec bs at bases HEART: S1, S2 ABDOMEN: Soft and nontender EXTREMITIES: No edema, cyanosis. SKIN: warm to touch NEUROLOGIC: Alert, appropriate. Labs Micro CT 05/17 IMPRESSION: Interval decreased size of the right complex pleural effusion which contains small amount of air. Similar position of the right pigtail catheter drain. The component of the loculated effusion within the major fissure on the right has not significantly changed. Persistent adjacent bandlike opacities in the lung parenchyma likely representing atelectasis Microbiology 05/12/20 Gram Stain - Final, Resulted 05/12/20 Aerobic and Anaerobic Culture - Preliminary, Resulted 05/06/20 Blood Culture - Final, Complete NO GROWTH AFTER 5 DAYS Objective Assessment Fever - resolved S/p lung fluid aspiration 05/18 Parapneumonic effusion s/p drainage with TPA x 4 - cults neg Leucocytosis - better Renal insufficiency. Abn LFTs - better Atrial fibrillation. COVID-19 negative x2 Diarrhea Plan Plan of Care Change to Augmentin/zyvox for d/c for 7 days F/u Pulm BREANA HEDRICK MD May 19, 2020 10:40
[2020-05-19] MEDS ORDERED: AMOXICILLIN/K CLAV 875/125MG TABLET. PO SCH (10:45)
[2020-05-19 11:00] VITALS: BP 125/59
--- NOTE | 2020-05-19 11:52 | RAD ---
EXAM: PORTABLE CHEST 1V INDICATION: Reason: empyema / Spl. Instructions: / History: . TECHNIQUE: Single view COMPARISON: 05/18/2020 FINDINGS: Stable upper normal heart size. Great vessels again show aortic calcification and tortuosity. There is no hilar or mediastinal mass. Left lung is well aerated. Right lung shows residual basilar opacity, slightly improved from the previous day. Pigtail pleural drainage catheter on the right remains present with similar appearance to small right pleural effusion. No acute or aggressive appearing osseous lesions seen. IMPRESSION: Improving aeration in the right lung base with similar-appearing small right pleural effusion status post pleural pigtail drainage catheter placement. Electronically signed by: Ihsan Walters MD (05/19/2020 11:49 AM) [id number]
--- NOTE | 2020-05-19 13:43 | NUR ---
pt discharged home with home health. meds and follow up reviewed. pt v/u. pt stable upon DC
--- NOTE | 2020-05-19 14:41 | NUR ---
SW following. Spoke with RN. Reviewed chart. [facility] Spoke with Grayzna from [facility] who will meet with pt and family prior to discharge. Discharge orders received by Malou. Pt on room air and oral medications. No further SW needs at this time.
--- NOTE | 2020-05-19 14:43 | PDOC3 ---
Discharge Summary Visit Information Date of Admission: May 05, 2020 Date of Discharge: May 19, 2020 Admitting Diagnosis Comment: Acute respiratory distress Elevated troponins AKIATN Atrial fibrillation Hypertension COVID rule out Final Diagnosis Problems Medical Problems: (1) Fever resolved Status: Acute (2) Hypoxia resolved Status: Acute Acute respiratory distress secondary to pneumonia Pneumonia - likely gram negative given improvement with cefepime Empyema - with chest tube and TPA intracatheter Troponin elevation possibly related to demand ischemia CKD unknown stage Atrial fibrillationstable Hypertension COVID ruled out Brief Hospital Course Allergies Allergies Coded Allergies Type Severity Reaction Last Updated Verified iron Allergy Intermediate 05/07/20 Yes Iodinated Contrast Media Adverse Reaction Intermediate 05/04/20 Yes Vital Signs Vital Signs Date Time Temp Pulse Resp B/P (MAP) Pulse Ox O2 Delivery O2 Flow Rate FiO2 05/19/20 11:36 92 Room Air 05/19/20 11:00 98.0 73 18 125/59 (81) 98.0 05/19/20 08:00 2.0 Lab Results Laboratory Tests Test 05/18/20 05:25 White Blood Count 15.5 x10^3/uL (4.0-11.0) Red Blood Count 3.41 x10^6/uL (4.30-5.70) Hemoglobin 10.5 g/dL (13.0-17.5) Hematocrit 31.4 % (39.0-53.0) Mean Corpuscular Volume 92 fL (79-100) Mean Corpuscular Hemoglobin 31 pg (25-35) Mean Corpuscular Hemoglobin Concent 34 g/dL (31-37) Red Cell Distribution Width 14.1 % (11.5-14.5) Platelet Count 520 x10^3/uL (140-400) Neutrophils (%) (Auto) 78 % (31-73) Lymphocytes (%) (Auto) 10 % (24-48) Monocytes (%) (Auto) 9 % (0-9) Eosinophils (%) (Auto) 2 % (0-3) Basophils (%) (Auto) 1 % (0-3) Neutrophils # (Auto) 12.0 x10^3/uL (1.8-7.7) Lymphocytes # (Auto) 1.6 x10^3/uL (1.0-4.8) Monocytes # (Auto) 1.4 x10^3/uL (0.0-1.1) Eosinophils # (Auto) 0.4 x10^3/uL (0.0-0.7) Basophils # (Auto) 0.1 x10^3/uL (0.0-0.2) Sodium Level 135 mmol/L (136-145) Potassium Level 4.0 mmol/L (3.5-5.1) Chloride Level 104 mmol/L (98-107) Carbon Dioxide Level 23 mmol/L (21-32) Anion Gap 8 (6-14) Blood Urea Nitrogen 18 mg/dL (8-26) Creatinine 1.3 mg/dL (0.7-1.3) Estimated GFR (Cockcroft-Gault) 52.6 BUN/Creatinine Ratio 14 (6-20) Glucose Level 95 mg/dL (70-99) Calcium Level 8.3 mg/dL (8.5-10.1) Total Bilirubin 0.4 mg/dL (0.2-1.0) Aspartate Amino Transf (AST/SGOT) 31 U/L (15-37) Alanine Aminotransferase (ALT/SGPT) 50 U/L (16-63) Alkaline Phosphatase 131 U/L (46-116) C-Reactive Protein, Quantitative 72.9 mg/L (0-3.3) Total Protein 5.7 g/dL (6.4-8.2) Albumin 1.6 g/dL (3.4-5.0) Albumin/Globulin Ratio 0.4 (1.0-1.7) Brief Hospital Course History of Present Illness Mr Rey is a 84-year-old male with past medical history of hypertension, A. fib, CVA, who presents to the ED with complaints of shortness of breath and fevers of 103. He was claimed to be saturating at 86% on 6 L nasal cannula with EMS. Patient also stated that he had some cough and associated chest pain. Denies any nausea vomiting, abdominal pain, diarrhea. 05/06: Patient had a fever overnight of 101.4. No acute events overnight. Patient is tolerating diet. Repeat chest x-ray shows worsening pleural effusion. Patient is saturating well 9 L. 05/07: No acute events overnight. Patient seen and examined bedside today. Patient is tolerating diet and saturating 97% on 9 L nasal cannula. 05/08: No acute events overnight. Patient did have a fever 100.1, but no major overnight events. Patient is sitting up in bed and compensating well. COVID tested is negative x2 05/09: No acute events overnight. Patient seen and examined bedside today. Patient has been afebrile for 24 hours. Tolerating diet and did have a bowel movement 2 days ago. 05/10: Tele showed 12 beats of V. tach. Asymptomatic at this time. Cardiology was consulted. Patient endorses yellow sputum production and forced cough. 101F 05/11: Afebrile. Still on 3 L nasal cannula oxygen. He is feeling weak. Still with shortness of breath his cough is weak. 05/12: Febrile to 100.3 F, on 3 L nasal cannulated oxygen. Still with productive cough. CT chest obtained with large right pleural effusion, loculated. IR placed chest tube. 05/13: Afebrile overnight. Off O2. Pain at chest tube site. Cough is dry no longer productive. 05/14: Patient seems to be doing better, patient denies fever or chills, patient plan of care discussed in detail All concerns addressed to the best of my abil ities. 05/15 800cc out of chest tube after initial tPA instillation on 05/14/2020. instilled this morning and drained. Still with slight cough, off O2. 05/16: Patient with no complaints during my visit. Patient feels well and is hoping to be discharged soon, I have explained the need to continue with tpa infusion through the tube. he acknowledged understanding 05/17: No acute events reported overnight, case discussed with nursing staff patient in no acute distress no complaints during my visit 05/18: CT of the chest noted, discussed with pulmonary clinical sales consultant, reassurance provided to the patient Patient was seen in consultation by infectious disease and pulmonology throughout his hospital stay. The patient responded well to the TPA therapy through his chest tube and the day prior to his discharge had an interventional radiology procedure in order to drain a pocket of his left still present. The patient will be discharged with broad-spectrum antibiotic as per our infectious disease clinical sales consultant for next 7 days. He was quite motivated and continue to work with physical therapy and was quite happy to be going home with home health. Patient has been walking at least 500 feet during his hospital stay which was quite reassuring. He was assessed by physical therapy prior to discharge and he was able to navigate stairs as well. Greater than 35 minutes were spent in the discharge process the patient counseling coordination of care and arrangements for a safe discharge I have encouraged the patient to follow-up with his primary care physician within 1 week and the signs and symptoms of concern were discussed prior to discharge Assessment Assessment IMAGING REPORT Signed PATIENT: RUDY POLKOUNT: [id number] : 1935 LOCATION: [address] [place] [address] AGE: 84 SEX: M EXAM STATUS: ADM IN ORD. PHYSICIAN: ABIGAIL LIMON MD REASON: persistent fevers. concern for loculated effusion/abscess PROCEDURE: CT CHEST WO CONTRAST CT scan of the chest without contrast 05/12/2020 CLINICAL HISTORY: Persistent fevers. TECHNIQUE: Unenhanced, contiguous, 5 mm axial sections were obtained through the chest and upper abdomen. One or more of the following individualized dose reduction techniques were utilized for this study: 1. Automated exposure control. 2. Adjustment of the mA and/or kV according to patient size. 3. Use of iterative reconstruction technique. FINDINGS: Comparison is made to a portable chest radiograph dated 05/06/2020. The heart is borderline enlarged. There is a small pericardial effusion. Atherosclerotic calcification of the thoracic aorta and its branches is noted. Small calcified hilar and mediastinal lymph nodes are seen. There is a large right pleural effusion. A very small left pleural effusion is noted. Right lower lobe and to a lesser degree right middle lobe atelectasis is noted. Dependent subsegmental atelectasis is seen involving the right upper lobe and left lower lobe. Images through the upper abdomen demonstrate atherosclerotic calcification of the abdominal aorta and its branches. Rounded low-attenuation lesions are seen involving both kidneys which measure 5 mm to 4 cm in size. These likely represent cysts. No further imaging workup is recommended. Surgical clips are seen within the gallbladder fossa consistent with a cholecystectomy. Atherosclerotic calcification of the abdominal aorta is noted. Very mild S-shaped curvature of the thoracolumbar spine is seen. Degenerative changes are seen involving the thoracic and throughout the lumbar spine. IMPRESSION: 1. Large right pleural effusion. Atelectasis is seen involving the right lower lobe and to lesser extent the right middle lobe. 2. Very small left pleural effusion. Electronically signed by: Raymundo Teague MD (05/12/2020 1:45 PM) [id number] DICTATED and SIGNED BY: RAYMUNDO TEAGUE MD DATE: 05/12/[address] IMPRESSION: Interval decreased size of the right complex pleural effusion which contains small amount of air. Similar position of the right pigtail catheter drain. The component of the loculated effusion within the major fissure on the right has not significantly changed. Persistent adjacent bandlike opacities in the lung parenchyma likely representing atelectasis Exposure: One or more of the following in the visualized dose reduction techniques were utilized for this examination: 1. Automated exposure control 2. Adjustment of the MA and/or KV according to patient size 3. Use of iterative of reconstructive technique Electronically signed by: Efe Snow MD (05/17/2020 4:06 PM) [id number] IMAGING REPORT Signed PATIENT: RUDY POLKCCOUNT: [id number] : 1935 LOCATION: [address] [place] [address] AGE: 84 SEX: M EXAM STATUS: ADM IN ORD. PHYSICIAN: MELODY CURRIE MD REASON: ct guided aspiration /chest tube if needed on right side PROCEDURE: [id number] FNA BX W/CT GDN LES 05/19/2020 7:29 AM Procedure: CT-guided aspiration, intrafissural fluid collection, right-sided Clinical Indication: ct guided aspiration /chest tube if needed on right side Discussion: The procedure was explained in its entirety to the patient or the patients designated renewals representative by a member of the treatment team, including a discussion of the risks, benefits and commonly accepted alternatives to the procedure, as well as the expected consequences of no therapy whatsoever. Discussion of the risks included, but was not limited to, those that are most frequent and those that are rare but possibly severe or life-threatening, as well as the possibility of unforeseen complications. All elements of maximal sterile barrier technique including the use of a cap, mask, sterile gown, sterile gloves, large sterile sheet, appropriate hand hygiene, and 2% chlorhexidine for cutaneous antisepsis (or acceptable alternative antiseptic per current guidelines) were followed for this procedure. CT imaging redemonstrates intrafissural fluid collection within the major fissure on the right. Adjacent lung consolidation bronchograms noted. Small residual pleural fluid and pleural thickening is seen with chest tube in place. The right chest prepped draped using sterile barrier technique. 1% lidocaine was administered for local anesthesia. Under intermittent CT guidance a 5 Greek Yueh needle was advanced into the aforementioned fluid collection. Serosanguineous fluid was aspirated. Repeat CT imaging demonstrates essentially complete evacuation of the fluid component. There are persistent underlying consolidation noted. The sheath was removed and manual pressure was held. No immediate complications were seen. Impression: CT-guided aspiration of right intrafissural fluid collection Discharge Information Condition at Discharge: Improved Follow Up: Weeks Disposition/Orders: D/C to Home w/ HH Scheduled Aspirin (Aspirin) 81 Mg Tab.chew, 1 TAB PO DAILY for blood thinner, #30 Ref 3 (Reported) Entered as Reported by: FANY SINGLETARY RN on 05/05/20334 Last Taken: Unknown Dose on 05/03/20799 Last Action: Continued on 05/05/20852 by TOAN KRISHNAMURTHY MD Atorvastatin Calcium (Atorvastatin Calcium) 20 Mg Tablet, 1 TAB PO DAILY for choloesterol, #30 Ref 5 (Reported) Entered as Reported by: FANY SINGLETARY RN on 05/05/20340 Last Taken: Unknown Dose on 05/03/201999 Last Action: Continued on 05/05/20852 by TOAN KRISHNAMURTHY MD Clopidogrel Bisulfate (Clopidogrel) 75 Mg Tablet, 1 TAB PO DAILY for blood thinner, #90 Ref 1 (Reported) Entered as Reported by: FANY SINGLETARY RN on 05/05/20340 Last Taken: Unknown Dose on 05/03/201999 Last Action: Continued on 05/05/20852 by TOAN KRISHNAMURTHY MD Cyanocobalamin (Vitamin B-12) (Vitamin B12) 2,500 Mcg Tablet, 1 TAB PO DAILY for supplement for 30 Days, #30 Ref 0 (Reported) Entered as Reported by: FANY SINGLETARY RN on 05/05/20340 Last Taken: Unknown Dose on 05/03/20799 Last Action: New Order on 05/05/20340 by FANY SINGLETARY RN Guaifenesin (Mucinex) 600 Mg Tablet.er, 600 MG PO BID for cough for 10 Days, #20 Prescribed by: SARAH PATEL MD on 7/28/20 0920 Lactobacillus Rhamnosus Gg (Culturelle) 1 Each Cap.sprink, 1 CAP PO BID for probiotic for 15 Days, #30 Prescribed by: SARAH PATEL MD on 05/19/20919 Linezolid (Zyvox) 600 Mg Tablet, 600 MG PO BID for parapneumonic effusion for 10 Days, #20 Prescribed by: SARAH PATEL MD on 05/19/20919 Losartan Potassium (Losartan Potassium) 100 Mg Tablet, 100 MG PO DAILY for HYPERTENSION, (Reported) Entered as Reported by: FANY SINGLETARY RN on 05/05/20340 Last Taken: Unknown Dose on 05/03/201999 Last Action: New Order on 05/05/20340 by FANY SINGLETARY RN Metoprolol Succinate (Metoprolol Succinate ( Xl )) 25 Mg Tab.er.24h, 1 TAB PO DAILY for HTN, #30 Ref 5 (Reported) Entered as Reported by: FANY SINGLETARY RN on 05/05/20340 Last Taken: Unknown Dose on 05/03/201999 Last Action: Continued on 05/05/20852 by TOAN KRISHNAMURTHY MD Multivitamin (Multi Vitamin Daily) 1 Each Tablet, 1 TAB PO DAILY for supplement for 30 Days, #30 Ref 0 (Reported) Entered as Reported by: FANY SINGLETARY RN on 05/05/20334 Last Taken: Unknown Dose on 05/03/20799 Last Action: New Order on 05/05/20334 by FANY SINGLETARY RN Omeprazole (Omeprazole) 20 Mg Tablet.dr, 1 TAB PO DAILY for indigestion, #90 Ref 1 (Reported) Entered as Reported by: FANY SINGLETARY RN on 05/05/20340 Last Taken: Unknown Dose on 05/03/20799 Last Action: New Order on 05/05/20340 by FANY SINGLETARY RN Tamsulosin Hcl (Flomax) 0.4 Mg Cap.er.24h, 1 CAP PO DAILY for urine flow, #30 Ref 11 (Reported) Entered as Reported by: FANY SINGLETARY RN on 05/05/20340 Last Taken: Unknown Dose on 05/03/20799 Last Action: HELD on 05/05/20852 by TOAN KRISHNAMURTHY MD Scheduled PRN Albuterol Sulfate (Ventolin Hfa) 8 Gm Hfa.aer.ad, 1 PUFF INH PRN Q4HRS PRN for SOA for 30 Days, #1 Prescribed by: SARAH PATEL MD on 05/19/20 0920 Cholecalciferol (Vitamin D3) (Vitamin D3) 10 Mcg Capsule, 10 MCG PO DAILY PRN for supplement, (Reported) Entered as Reported by: FANY SINGLETARY RN on 05/05/20340 Last Taken: Unknown Dose on 05/03/20 0800 Last Action: New Order on 05/05/20340 by FANY SINGLETARY RN Justicifation of Admission Dx: Justifications for Admission: Justification of Admission Dx: Yes Aspiration Pneumonia: Hypoxemia SARAH PATEL MD May 19, 2020 14:43
== END 2020-05-19 13:47 | disposition home health service (06) | DRG 177 ==
LOC: ER 18:30 → MERGE 19:03 → 6 SOUTH 19:03 → 5 NORTH 05-12 10:19
PROVIDERS: ADMIT Family Medicine; ATTEND Family Medicine
PROC: 0W9930Z Drainage of Right Pleural Cavity with Drainage Device, Percutaneous Approach (ICD-10-PCS; 2020-05-13)
PROC: 3E03317 Introduction of Other Thrombolytic into Peripheral Vein, Percutaneous Approach (ICD-10-PCS; principal; 2020-05-16)
PROC: 0B9N3ZX Drainage of Right Pleura, Percutaneous Approach, Diagnostic (ICD-10-PCS; 2020-05-18)
DX: J15.6 Pneumonia due to other Gram-negative bacteria (principal); N17.0 Acute kidney failure with tubular necrosis; J96.01 Acute respiratory failure with hypoxia; J86.9 Pyothorax without fistula; I24.8 Other forms of acute ischemic heart disease; I47.2 Ventricular tachycardia; J81.1 Chronic pulmonary edema; J91.8 Pleural effusion in other conditions classified elsewhere; J98.11 Atelectasis; K21.9 Gastro-esophageal reflux disease without esophagitis; E78.5 Hyperlipidemia, unspecified; I12.9 Hypertensive chronic kidney disease with stage 1 through stage 4 chronic kidney disease, or unspecified chronic kidney disease; I48.91 Unspecified atrial fibrillation; N18.9 Chronic kidney disease, unspecified; Z20.828 Contact with and (suspected) exposure to other viral communicable diseases; Z86.73 Personal history of transient ischemic attack (TIA), and cerebral infarction without residual deficits; Z90.49 Acquired absence of other specified parts of digestive tract; Z79.899 Other long term (current) drug therapy
CPT/HCPCS: 10009; 32557; 36415; 71045; 71250; 80048; 80053; 80061; 81001; 82945; 83605; 83615; 83735; 83880; 83986; 84100; 84157; 84484; 85007; 85025; 85610; 85730; 86140; 87040; 87071; 87075; 88112; 88305; 89050; 93005; 93306; 94640; 94760; 96365; 96375; 99152; 99285; A4215; C1729; C1892; C1894; G0103; J0456; J0692; J0696; J1644; J1940; J2250; J2543; J2997; J3490; J7030; J7040; 97116-GP; 97530-GP; G0378; J7626; U0003-CS

== ENCOUNTER → 2020-07-16 | Outpatient (CLI) | payer MEDICARE ==
[2019-09-06 11:00] VITALS: BP 131/64
[~2020-07-16] MED LIST changes: +ATOR20TA58 PO; +CHOL400C PO; +CYAN25008 PO; +GUAI600T47 PO; +LACT1CAP19 PO; +LINE600T12 PO; +MULT-245 PO; +OMEP20TA8 PO; +VENTOLIN HFA8 G1 INH
--- NOTE | 2020-07-16 16:41 | RAD ---
CHEST PA LATERAL Clinical indications: Empyema. COMPARISON: February 27, 2019. Findings: Previously seen right-sided pleural effusion is much smaller in size. There is a small right-sided pleural effusion now present. No lung consolidation or pulmonary edema is seen. No pneumothorax is evident. The heart size, pulmonary vasculature, mediastinum and both marcos are unremarkable. Old healed right rib cage fractures are seen. Impression: Small right-sided pleural effusion. Electronically signed by: Jose Macdonald MD (07/16/2020 4:38 PM) [id number]
== END | disposition home or self-care (01) ==
LOC: RAD 11:42
PROVIDERS: ATTEND Internal Medicine Critical Care Medicine
DX: J86.9 Pyothorax without fistula (principal); J90 Pleural effusion, not elsewhere classified
CPT/HCPCS: 71046